=== PATIENT | male | born 1965 | race Two or more races ===

== ENCOUNTER 2020-04-07 09:40 | Outpatient (REF) | payer OTHER, SELFPAY | END 2020-04-07 09:41 | disposition home or self-care (01) | LOC: HO.HAP 09:40 | PROVIDERS: Visit Provider Internal Medicine | DX: Z46.1 Encounter for fitting and adjustment of hearing aid (principal) | CPT/HCPCS: V5266 ==

== ENCOUNTER 2020-05-15 13:10 | Outpatient (REF) | payer OTHER, SELFPAY ==
[2020-05-15 14:48] LABS: MANUAL DIFF FLAG NO
[2020-05-15 14:58] LABS: Basophils Percent Auto 0.1 % (0-2); Eosinophils Absolute Auto 0.2 X10*3/uL (0.0-0.4); Eosinophils Percent Auto 2.6 % (0-4); Hemoglobin 14.5 g/dl (14.0-18.0); Imm Gran Abs Auto 0.04 X10*3/uL (0.00-0.03); Imm Gran Pct Auto 0.5 % (0.0-0.4); Lymphocytes Absolute Auto 1.2 X10*3/uL (1.2-4.9); Lymphocytes Percent Auto 15.8 % (20-40); Mean Corpuscular HGB Conc 33.7 g/dl (31.0-36.0); Mean Corpuscular Hemoglobin 31.8 pg (27.0-33.0); Mean Corpuscular Volume 94.3 fL (80-98); Mean Platelet Volume 10.8 fL (9.4-12.4); Monocytes Absolute Auto 0.6 X10*3/uL (0.1-1.2); Monocytes Percent Auto 8.1 % (2-11); Neutrophils Absolute Auto 5.4 X10*3/uL (2.0-8.3); Neutrophils Percent Auto 72.9 % (45-73); Platelet Count 219 X10*3/uL (160-400); Red Blood Count 4.56 X10*6/uL (4.60-5.80); Red Cell Distribution Width 13.2 % (11.0-16.0); White Blood Count 7.4 X10*3/uL (4.8-10.8)
[2020-05-15 15:24] LABS: Alanine Aminotransferase 20 U/L (0-40); Albumin Level 4.3 g/dL (3.5-5.0); Alkaline Phosphatase 62 U/L (39-117); Aspartate Amino Transferase 17 U/L (5-37); Bilirubin Direct 0.2 mg/dL (0.0-0.5); Bilirubin Total 0.6 mg/dL (0.0-1.0); Total Protein 6.9 g/dL (6.5-8.0)
[2020-05-15 15:33] LABS: Valproate 47.9 mcg/mL (50.0-100.0)
== END 2020-05-15 13:11 | disposition home or self-care (01) ==
LOC: HO.LAB 13:10
PROVIDERS: PCP Internal Medicine; Visit Provider Clinical Nurse Specialist Psychiatric/Mental Health
DX: Z79.899 Other long term (current) drug therapy (principal)
CPT/HCPCS: 36415; 80076; 80164; 85025

== ENCOUNTER → 2020-05-22 11:11 | Outpatient (BNVA) | payer OTHER, SELFPAY | PROVIDERS: PCP Internal Medicine; Referring Provider Internal Medicine; Visit Provider Nurse Practitioner | DX: K21.9 Gastro-esophageal reflux disease without esophagitis (principal); K58.0 Irritable bowel syndrome with diarrhea; R19.00 Intra-abdominal and pelvic swelling, mass and lump, unspecified site | CPT/HCPCS: 99212 ==

== ENCOUNTER 2020-06-13 15:09 | Outpatient (REF) | payer OTHER, SELFPAY ==
--- NOTE | 2020-06-13 15:21 | US_ITS ---
EXAMINATION: US ABDOMEN LIMITED CLINICAL INFORMATION: Palpable abdominal wall lump. COMPARISON: Previous CT of the abdomen and pelvis 01/04/2020 TECHNIQUE: Real-time imaging of midline upper abdominal wall FINDINGS: No hernia is seen. There is a 2.2 x 1.9 x 0.8 cm solid isoechoic avascular lesion just deep to the skin. Appearance is nonspecific but would be consistent with a lipoma. No corresponding abnormality is evident on recent CT scan. US/US abdomen limited IMPRESSION: No hernia seen. Palpable abnormality corresponds to a 2.2 x 1.9 x 0.8 cm solid isoechoic soft tissue lesion probably representing a lipoma.
== END 2020-06-13 15:10 | disposition home or self-care (01) ==
LOC: HO.US 15:09
PROVIDERS: Visit Provider Nurse Practitioner
DX: R19.00 Intra-abdominal and pelvic swelling, mass and lump, unspecified site (principal)
CPT/HCPCS: 76705

== ENCOUNTER → 2020-06-27 09:46 | Outpatient (BNVA) | payer OTHER, SELFPAY | PROVIDERS: PCP Internal Medicine; Referring Provider Internal Medicine; Visit Provider Nurse Practitioner | DX: Z76.89 Persons encountering health services in other specified circumstances (principal) | CPT/HCPCS: Q3014 ==

== ENCOUNTER → 2020-07-05 09:41 | Outpatient (BNVA) | payer OTHER, SELFPAY | PROVIDERS: PCP Internal Medicine; Visit Provider Urology | DX: R33.9 Retention of urine, unspecified (principal) | CPT/HCPCS: Q3014 ==

== ENCOUNTER 2020-07-25 06:36 | Day surgery (SDC) | payer OTHER, SELFPAY ==
[2020-07-19 16:00] VITALS: BMI 33.6
--- NOTE | 2020-07-24 12:09 | P.CONAN_ITS ---
Documented by User: Karenaher Sainzney 07/24/20 12:11 HPI - Anesthesia Eval Consult details Narrative: 54yo M for Interstim Generator Change Chronic opioids s/p Interstim 2017 with TARUN KRISHNAN Past Medical History Medical History Abdominal wall bulge Abnormal loss of weight Alcohol abuse Arthritis Asthma Balanitis Chronic back pain Depression Elevated blood pressure reading in office with diagnosis of hypertension Enlarged prostate Epidermal cyst Esophageal dysphagia Esophageal spasm Gout H/O ulcer disease High cholesterol History of anxiety History of depression History of panic attacks History of peptic ulcer disease Hx of insomnia Hx of irritable bowel syndrome Hypertension Incisional pain Left flank pain Lipoma of back Low back pain Marijuana use Multiple lipomas Osteoarthritis Pain in unspecified toe(s) Painful orthopaedic hardware Short frenulum of penis Slow urinary stream Thalamic pain syndrome Trochanteric bursitis, left hip Urinary retention Family History Family History Family/Other Cancer Diabetes AIDS Brother Diabetes Myocardial infarction Father Enlarged prostate Mother Diabetes Asthma Surgical History Surgical History H/O breast surgery H/O neck surgery History of bunionectomy History of esophagogastroduodenoscopy (EGD) Hx of arthroscopy of left knee Hx of colonoscopy S/P excision of lipoma Social History Social History Are you a primary patient care coordinator to a significant other at home: No Do you presently have visiting nurse or other home services: No Alcohol intake: current Alcohol intake frequency: does not drink Smoking Status: Former smoker Cigarettes Per Day: 6 Smoking Quit Date: 2017 Use of substances other than those prescribed or required for medical reasons: Yes Substance Use Type: Marijuana Substance Use Frequency: Daily Advance Directives: No Advance Directives Information Provided: No Advance Directives on File: No Recently lost weight without trying: No Meds Allergies Allergy/AdvReac Type Severity Reaction Status Date / Time cat dander [CATS] Allergy Unknown UNKNOWN Verified 07/05/20 09:49 dog dander [DOGS] Allergy Unknown UNKNOWN Verified 07/05/20 09:49 pollen extracts [POLLEN] Allergy Unknown UNKNOWN Verified 07/05/20 09:49 tree and shrub pollen Allergy sneeze Verified 07/05/20 09:49 Home Medications Medication Instructions Recorded Confirmed Type alprazolam 1 mg tablet 1 mg PO BID PRN 05/22/20 07/19/20 History bethanechol chloride 50 mg tablet 25 mg PO TID 05/22/20 07/19/20 History cefixime 400 mg capsule 400 mg PO DAILY 05/22/20 07/19/20 History cholecalciferol (vitamin D3) 50 50 mcg PO DAILY 05/22/20 07/19/20 History mcg (2,000 unit) capsule ciprofloxacin HCl 500 mg tablet 500 mg PO BID 05/22/20 07/05/20 History divalproex 250 mg tablet,extended 250 mg PO BID 05/22/20 07/19/20 History release 24 hr divalproex 500 mg tablet,extended 500 mg PO 05/22/20 07/05/20 History release 24 hr escitalopram oxalate 10 mg tablet 10 mg PO QAM 05/22/20 07/19/20 History fluticasone propionate 220 1 puff INHALATION BID g 05/22/20 07/19/20 History mcg/actuation HFA aerosol inhaler gabapentin 300 mg capsule 600 mg PO TID 05/22/20 07/19/20 History ipratropium 20 mcg-albuterol 100 1 puff INHALATION .4 times daily g 05/22/20 07/19/20 History mcg/actuation mist for inhalation lisinopril 5 mg tablet 5 mg PO BID 05/22/20 07/05/20 History oxycodone 15 mg tablet 15 mg PO Q6H 05/22/20 07/19/20 History promethazine 12.5 mg tablet 12.5 mg PO TID 05/22/20 07/19/20 History atorvastatin 20 mg tablet 20 mg PO DAILY 07/05/20 07/19/20 History furosemide 20 mg tablet 20 mg PO DAILY 07/05/20 07/19/20 History melatonin 5 mg tablet 5 mg PO BEDTIME 07/05/20 07/19/20 History albuterol sulfate 1 vial INHALATION QID 07/19/20 07/19/20 History cholecalciferol (vitamin D3) 1 cap PO DAILY 07/19/20 07/19/20 History ipratropium-albuterol [Combivent puff INHALATION DIRECTED 07/19/20 History Respimat] methocarbamol 1 tab PO QID PRN 07/19/20 07/19/20 History multivitamin [Daily-Petra] 1 tab PO DAILY 07/19/20 07/19/20 History Exam Exam Date and Time: July 24, 2020 1209 Height,Weight and Vital Signs: Height 5 ft 4 in Weight 88.904 kg Assessment and Plan Assessment Anesthesia Assessment: Chart Reviewed Documented by User: Tosha Dalton 07/25/20 09:21 [facility] Past Medical History Medical History Abdominal wall bulge Abnormal loss of weight Alcohol abuse Arthritis Asthma Balanitis Chronic back pain Depression Elevated blood pressure reading in office with diagnosis of hypertension Enlarged prostate Epidermal cyst Esophageal dysphagia Esophageal spasm Gout H/O ulcer disease High cholesterol History of anxiety History of depression History of panic attacks History of peptic ulcer disease Hx of insomnia Hx of irritable bowel syndrome Hypertension Incisional pain Left flank pain Lipoma of back Low back pain Marijuana use Multiple lipomas Osteoarthritis Pain in unspecified toe(s) Painful orthopaedic hardware Short frenulum of penis Slow urinary stream Thalamic pain syndrome Trochanteric bursitis, left hip Urinary retention Family History Family History Family/Other Cancer Diabetes AIDS Brother Diabetes Myocardial infarction Father Enlarged prostate Mother Diabetes Asthma Surgical History Surgical History H/O breast surgery H/O neck surgery History of bunionectomy History of esophagogastroduodenoscopy (EGD) Hx of arthroscopy of left knee Hx of colonoscopy S/P excision of lipoma Social History Social History Are you a primary patient care coordinator to a significant other at home: No Do you presently have visiting nurse or other home services: No Alcohol intake: current Alcohol intake frequency: does not drink Smoking Status: Former smoker Cigarettes Per Day: 6 Smoking Quit Date: 2017 Use of substances other than those prescribed or required for medical reasons: Yes Substance Use Type: Marijuana Substance Use Frequency: Daily Advance Directives: No Advance Directives Information Provided: No Advance Directives on File: No Recently lost weight without trying: No Meds Allergies Allergy/AdvReac Type Severity Reaction Status Date / Time cat dander [CATS] Allergy Unknown UNKNOWN Verified 07/05/20 09:49 dog dander [DOGS] Allergy Unknown UNKNOWN Verified 07/05/20 09:49 pollen extracts [POLLEN] Allergy Unknown UNKNOWN Verified 07/05/20 09:49 tree and shrub pollen Allergy sneeze Verified 07/05/20 09:49 Home Medications Medication Instructions Recorded Confirmed Type alprazolam 1 mg tablet 1 mg PO BID PRN 05/22/20 07/19/20 History bethanechol chloride 50 mg tablet 25 mg PO TID 05/22/20 07/19/20 History cefixime 400 mg capsule 400 mg PO DAILY 05/22/20 07/19/20 History cholecalciferol (vitamin D3) 50 50 mcg PO DAILY 05/22/20 07/19/20 History mcg (2,000 unit) capsule ciprofloxacin HCl 500 mg tablet 500 mg PO BID 05/22/20 07/05/20 History divalproex 250 mg tablet,extended 250 mg PO BID 05/22/20 07/19/20 History release 24 hr divalproex 500 mg tablet,extended 500 mg PO 05/22/20 07/05/20 History release 24 hr escitalopram oxalate 10 mg tablet 10 mg PO QAM 05/22/20 07/19/20 History fluticasone propionate 220 1 puff INHALATION BID g 05/22/20 07/19/20 History mcg/actuation HFA aerosol inhaler gabapentin 300 mg capsule 600 mg PO TID 05/22/20 07/19/20 History ipratropium 20 mcg-albuterol 100 1 puff INHALATION .4 times daily g 05/22/20 07/19/20 History mcg/actuation mist for inhalation lisinopril 5 mg tablet 5 mg PO BID 05/22/20 07/05/20 History oxycodone 15 mg tablet 15 mg PO Q6H 05/22/20 07/19/20 History promethazine 12.5 mg tablet 12.5 mg PO TID 05/22/20 07/19/20 History atorvastatin 20 mg tablet 20 mg PO DAILY 07/05/20 07/19/20 History furosemide 20 mg tablet 20 mg PO DAILY 07/05/20 07/19/20 History melatonin 5 mg tablet 5 mg PO BEDTIME 07/05/20 07/19/20 History albuterol sulfate 1 vial INHALATION QID 07/19/20 07/19/20 History cholecalciferol (vitamin D3) 1 cap PO DAILY 07/19/20 07/19/20 History ipratropium-albuterol [Combivent puff INHALATION DIRECTED 07/19/20 History Respimat] methocarbamol 1 tab PO QID PRN 07/19/20 07/19/20 History multivitamin [Daily-Petra] 1 tab PO DAILY 07/19/20 07/19/20 History Exam Airway Mallampati Class: II TM Dist: >3cm Neck ROM: Full Assessment and Plan Assessment Anesthesia Assessment: Anesthesia Plan Discussed and Chart Reviewed Final Anesthetic Review NPO: Yes ASA Class: III Final Preanesthetic Review: No Changes in Pt Med Stat, Meds/Allgs Chart Reviewed, Consent Obtained/Reviewed and Anes Risks/Benef Reviewed Patient Risk: Intermediate Procedure Risk: Low Assessment/Block/Sedation in SS: Assess/Block/Sedation-SS Anesthetic Plan Anesthetic Plan: MAC: Disposition: Standard PACU
[2020-07-25 08:12] VITALS: BP 113/48; PULSE 56; RESP 16; TEMP 36.8; O2SAT 95
[2020-07-25] MEDS: Lactated Ringers 1,000 ML 100 ML IVCONT (08:26)
[2020-07-25] MEDS: Albuterol Sulfate (0.083%) 2.5 MG/3 ML VIAL.NEB INHALE (08:29)
--- NOTE | 2020-07-25 08:30 | PC.NURSE ---
receibing resp treatment in isolation room.
--- NOTE | 2020-07-25 09:15 | MHC.SHP ---
Pre-Procedural Eval Section A The patient is an INPATIENT: No The History & Physical has been completed within 30 days and I have reviewed it.: Yes Section B Chief Complaint: urine retention Allergies: Allergies Allergy/AdvReac Type Severity Reaction Status Date / Time cat dander [CATS] Allergy Unknown UNKNOWN Verified 07/05/20 09:49 dog dander [DOGS] Allergy Unknown UNKNOWN Verified 07/05/20 09:49 pollen extracts [POLLEN] Allergy Unknown UNKNOWN Verified 07/05/20 09:49 tree and shrub pollen Allergy sneeze Verified 07/05/20 09:49 Plan Diagnosis/Plan: Unchanged I have reviewed the history and physical and performed a pertinent physical examination on my patient. No changes have occurred unless specified.
--- NOTE | 2020-07-25 10:10 | PM.OP ---
Brief Operative Note Date of Service: 07/25/20 Pre-op diagnosis: ipg end of life, urinary retention Post-op diagnosis: same Procedure: removal and replacement ipg Implants: iPG Surgeon: Blayne Granados III, MD Anesthesia: MAC and local Estimated blood loss (mL): 0 Pathology: none sent Condition: stable Disposition: same day
[2020-07-25 10:14] VITALS: BP 108/60; PULSE 69; RESP 16; TEMP 37.3; O2SAT 95
[2020-07-25 10:29] VITALS: BP 110/66; PULSE 62; RESP 17; O2SAT 94
[2020-07-25] MEDS: Acetaminophen 325 MG TABLET 650 MG PO (10:39)
[2020-07-25] MEDS: oxyCODONE HCl Immed Release 5 MG TABLET PO (10:41)
[2020-07-25 10:44] VITALS: BP 109/62; PULSE 74; RESP 17; O2SAT 95
--- NOTE | 2020-07-25 11:11 | HO.POSTANES ---
Post Anesthesia Evaluation Post Anesthesia Evaluation Vital Signs: Vital Signs Temp Pulse Resp BP Pulse Ox 07/25/20 10:44 99.2 F 74 17 109/62 95 07/25/20 10:29 62 17 110/66 94 07/25/20 10:14 99.2 F 69 16 108/60 95 07/25/20 08:12 98.3 F 56 16 113/48 L 95 Anesthesia: Monitored Mental Status: Awake Pain Control: Satisfactory Nausea/Vomiting: None Hydration: Adequate Anesthesia-Related Issues: No Anes. Related Issues
--- NOTE | 2020-11-02 18:15 | OP_ITS ---
SURGEON: Blayne Granados III, MD PREOPERATIVE DIAGNOSIS: Urinary retention, end of life implantable pulse generator. POSTOPERATIVE DIAGNOSIS: Urinary retention, end of life implantable pulse generator. PROCEDURE PERFORMED: Removal and replacement of IPG. ESTIMATED BLOOD LOSS: None. COMPLICATIONS: None. ANESTHESIA: MAC local. ASSISTANTS: SPECIMENS: SPECIMEN: None. DRAINS: None. DESCRIPTION OF PROCEDURE: As follows: The patient was taken to the operating room. After adequate anesthesia was obtained, a time-out done demonstrating correct patient, correct procedure. Following this, the patient had his right buttock incision identified and opened with a scalpel. Electrocautery was then used to expose the IPG. IPG was delivered through the wound and removed from the lead and the wound irrigated out with antibiotic-containing solution. Once this was done, the patient has a new IPG attached to the lead and it was replaced with the logo facing towards the skin. It was able to slide into the old pocket. The patient had testing done by the [employer] personal financial representative. Everything was found to be 100% functional. Two-layered closure was done. He tolerated the procedure well without complications. Blayne Granados III, MD SS/MODL / [id number]
== END 2020-07-25 11:30 | disposition home or self-care (01) ==
PROVIDERS: PCP Internal Medicine; Visit Provider Urology
PROC: (CPT 63685; principal; 2020-07-25 09:40)
DX: I10 Essential (primary) hypertension (principal); Z79.899 Other long term (current) drug therapy; J45.909 Unspecified asthma, uncomplicated; F12.90 Cannabis use, unspecified, uncomplicated
CPT/HCPCS: 64595; C1767; C1787; J2250; J2405; J3010

== ENCOUNTER → 2020-12-11 12:52 | Outpatient (BNVA) | payer OTHER, SELFPAY | PROVIDERS: PCP Internal Medicine; Referring Provider Internal Medicine; Visit Provider Surgery | DX: D17.9 Benign lipomatous neoplasm, unspecified (principal) | CPT/HCPCS: 99212 ==

== ENCOUNTER 2021-01-03 10:00 | Outpatient (REF) | payer OTHER, SELFPAY ==
[2021-01-03 11:17] LABS: MANUAL DIFF FLAG NO
[2021-01-03 11:43] LABS: Basophils Percent Auto 0.2 % (0-2); Eosinophils Absolute Auto 0.4 X10*3/uL (0.0-0.4); Eosinophils Percent Auto 5.9 % (0-4); Hematocrit 40.3 % (42-52); Hemoglobin 13.2 g/dl (14.0-18.0); Imm Gran Abs Auto 0.02 X10*3/uL (0.00-0.03); Imm Gran Pct Auto 0.3 % (0.0-0.4); Lymphocytes Absolute Auto 1.3 X10*3/uL (1.2-4.9); Lymphocytes Percent Auto 21.3 % (20-40); Mean Corpuscular HGB Conc 32.8 g/dl (31.0-36.0); Mean Corpuscular Hemoglobin 31.3 pg (27.0-33.0); Mean Corpuscular Volume 95.5 fL (80-98); Mean Platelet Volume 10.7 fL (9.4-12.4); Monocytes Absolute Auto 0.6 X10*3/uL (0.1-1.2); Monocytes Percent Auto 9.7 % (2-11); Neutrophils Absolute Auto 3.7 X10*3/uL (2.0-8.3); Neutrophils Percent Auto 62.6 % (45-73); Platelet Count 225 X10*3/uL (160-400); Red Blood Count 4.22 X10*6/uL (4.60-5.80); Red Cell Distribution Width 13.7 % (11.0-16.0)
[2021-01-03 11:53] LABS: Valproate 72.9 mcg/mL (50.0-100.0)
[2021-01-03 12:13] LABS: Alanine Aminotransferase 20 U/L (0-40); Albumin Level 4.1 g/dL (3.5-5.0); Alkaline Phosphatase 69 U/L (39-117); Aspartate Amino Transferase 17 U/L (5-37); Bilirubin Direct 0.2 mg/dL (0.0-0.5); Bilirubin Total 0.4 mg/dL (0.0-1.0); Total Protein 6.5 g/dL (6.5-8.0)
== END 2021-01-03 10:01 | disposition home or self-care (01) ==
LOC: HO.LAB 10:00
PROVIDERS: PCP Internal Medicine; Visit Provider Clinical Nurse Specialist Psychiatric/Mental Health
DX: F31.81 Bipolar II disorder (principal); Z79.899 Other long term (current) drug therapy
CPT/HCPCS: 36415; 80076; 80164; 85025

== ENCOUNTER 2021-01-05 12:46 | Outpatient (REF) | payer OTHER, SELFPAY ==
[2021-01-05 12:46] VITALS: BP 136/85; PULSE 70; RESP 19; TEMP 36.8; O2SAT 96; BMI 33.3
--- NOTE | 2021-01-05 13:17 | W.PM.OPN ---
Operative Note Operative Note Date of Service: 01/05/21 Narrative: Preop diagnosis: Lipoma on the abdominal wall and on the back Postop diagnosis: As above Procedure: Excision of lipomas, abdominal wall and back under local anesthesia Surgeon: Derrick Barlow MD The patient is a 55-year-old male who wanted lipomas removed. He now points to a lipoma on the abdominal wall measuring about 1.5 cm and another on the back towards the left flank, about 1 cm in size. He wanted both of these removed. He understood the technique of excision under local anesthesia and he was aware of the risks, benefits, and alternatives. He was brought to the minor procedure room. A surgical time-out was done. He was placed in supine position. The area of the lipoma on the abdominal wall was prepped and draped. Lidocaine 1% was used for local anesthesia. I made an incision on the skin overlying this lipoma and the incision was carried down through the full-thickness of the skin down to the subcutaneous layer until a lipoma was visualized. I sharply dissected the lipoma off the rest of the subcutaneous layer using Metzenbaum scissors until this was delivered and sent as a specimen. This wasabout a 1.5 cm diameter round lipoma. I closed the incision with full-thickness nylon 3-0 interrupted sutures. Dressings were applied. The patient was then placed in prone position. The area of the lipoma on the back was prepped and draped. Lidocaine 1% was used for local anesthesia. I made an incision on the skin overlying this lipoma using a blade 15. And this carried down through the full-thickness of skin and subcutaneous fat until I lipomatous mass was visualized. I sharply dissected the lipoma off of the rest of the subcutaneous layer using Metzenbaum scissors until this was delivered and sent as specimen. This was about 1 cm in diameter. I closed the incision with full-thickness nylon 3-0 interrupted sutures. Dressings were applied . The patient tolerated the procedure well. There were no complications noted. He was given wound care instructions.
--- NOTE | 2021-01-05 13:22 | PM.OP ---
Brief Operative Note Date of Service: 01/05/21 Pre-op diagnosis: Lipoma, abdominal wall and back Post-op diagnosis: same Surgeon: Derrick Barlow MD Anesthesia: local Was an Computer Compositor used for this Procedure?: No Estimated blood loss (mL): 2 Pathology: other ( lipomas) Condition: stable Disposition: other ( home)
== END 2021-01-05 12:47 | disposition home or self-care (01) ==
LOC: HO.MS 12:46
PROVIDERS: PCP Internal Medicine; Visit Provider Surgery
PROC: (CPT 22902; principal; 2021-01-05 13:00)
DX: D17.39 Benign lipomatous neoplasm of skin and subcutaneous tissue of other sites (principal); D17.1 Benign lipomatous neoplasm of skin and subcutaneous tissue of trunk; J45.909 Unspecified asthma, uncomplicated; I10 Essential (primary) hypertension; G89.29 Other chronic pain; M54.5 Low back pain; F12.90 Cannabis use, unspecified, uncomplicated; Z79.899 Other long term (current) drug therapy
CPT/HCPCS: 22902; 21930; 88304

== ENCOUNTER → 2021-01-10 14:50 | Outpatient (BNVA) | payer OTHER, SELFPAY | PROVIDERS: PCP Internal Medicine; Referring Provider Internal Medicine; Visit Provider Surgery ==

== ENCOUNTER → 2021-01-17 13:40 | Outpatient (BNVA) | payer OTHER, SELFPAY | PROVIDERS: PCP Internal Medicine; Referring Provider Internal Medicine; Visit Provider Surgery | DX: Z48.3 Aftercare following surgery for neoplasm (principal); Z86.018 Personal history of other benign neoplasm | CPT/HCPCS: 99212 ==

== ENCOUNTER 2021-05-01 10:07 | Outpatient (REF) | payer OTHER, SELFPAY ==
[2021-05-01 10:22] LABS: MANUAL DIFF FLAG NO
[2021-05-01 10:46] LABS: Basophils Percent Auto 0.1 % (0-2); Eosinophils Absolute Auto 0.3 X10*3/uL (0.0-0.4); Eosinophils Percent Auto 3.9 % (0-4); Hematocrit 40.9 % (42-52); Hemoglobin 13.3 g/dl (14.0-18.0); Imm Gran Abs Auto 0.03 X10*3/uL (0.00-0.03); Imm Gran Pct Auto 0.4 % (0.0-0.4); Lymphocytes Absolute Auto 0.8 X10*3/uL (1.2-4.9); Lymphocytes Percent Auto 11.4 % (20-40); Mean Corpuscular HGB Conc 32.5 g/dl (31.0-36.0); Mean Corpuscular Volume 95.3 fL (80-98); Mean Platelet Volume 10.8 fL (9.4-12.4); Monocytes Absolute Auto 0.5 X10*3/uL (0.1-1.2); Monocytes Percent Auto 6.5 % (2-11); Neutrophils Absolute Auto 5.7 X10*3/uL (2.0-8.3); Neutrophils Percent Auto 77.7 % (45-73); Platelet Count 201 X10*3/uL (160-400); Red Blood Count 4.29 X10*6/uL (4.60-5.80); Red Cell Distribution Width 13.7 % (11.0-16.0); White Blood Count 7.4 X10*3/uL (4.8-10.8)
[2021-05-01 11:00] LABS: Estimated Average Glucose 103 mg/dL; Hemoglobin A1c % 5.2 %
[2021-05-01 11:12] LABS: B Type Natriuretic Peptide 45 pg/mL (<100)
[2021-05-01 11:21] LABS: Alanine Aminotransferase 47 U/L (0-40); Albumin Level 4.1 g/dL (3.5-5.0); Alkaline Phosphatase 81 U/L (39-117); Anion Gap 11 (12-20); Aspartate Amino Transferase 117 U/L (5-37); Bilirubin Direct 0.2 mg/dL (0.0-0.5); Bilirubin Total 0.4 mg/dL (0.0-1.0); Blood Urea Nitrogen 11 mg/dL (9-16); Calcium 9.2 mg/dL (8.4-10.2); Carbon Dioxide 32 mmol/L (22-29); Chloride 102 mmol/L (96-108); Cholesterol 151 mg/dL; Estimated Glomerular Filt Rate > 60; Glucose Random 126 mg/dL (60-115); HDL Cholesterol 29 mg/dL; LDL Cholesterol Calculated 97 mg/dl; Potassium 4.7 mmol/L (3.3-5.1); Sodium 140 mmol/L (135-145); Total Protein 6.7 g/dL (6.5-8.0); Triglycerides 127 mg/dL; Uric Acid 6.9 mg/dL (3.4-7.0)
[2021-05-01 11:30] LABS: TSH reflex Free T4 1.26 uIU/mL (0.32-4.0); Vitamin D 25-OH Total 37.3 ng/mL (>30)
[2021-05-01 11:57] LABS: Folate > 20.0 ng/mL (> or = 4.0); Vitamin B12 502 pg/mL (200-900)
[2021-05-01 12:16] LABS: Creatinine Urine 18.17 mg/dL; Microalbumin Urine < 5.0 mg/L
== END 2021-05-01 10:08 | disposition home or self-care (01) ==
LOC: HO.LAB 10:07
PROVIDERS: PCP Internal Medicine; Visit Provider Internal Medicine
DX: E78.5 Hyperlipidemia, unspecified (principal); M79.89 Other specified soft tissue disorders
CPT/HCPCS: 36415; 80053; 80061; 82043; 82248; 82306; 82607; 82746; 83036; 83880; 84443; 84550; 85025

== ENCOUNTER 2021-06-05 08:51 | Outpatient (REF) | payer OTHER, SELFPAY ==
--- NOTE | 2021-06-05 14:08 | MHC.AU.AHA ---
Adult Audiological Evaluation Date of Visit: 06/05/21 Reason for Appointment: Audiological re-evaluation due to concern for decreased hearing. Mr. Lazcano has a known bilateral hearing loss and uses hearing aids binaurally. He notes that he lost his hearing aids while removing his face mask and hasn't been able to find them. He obtained the previous hearing aids over five years ago, so he is due for updated amplification. He feels his hearing is gradually decreasing, and worse in the left ear. He notes that he has been struggling to hear and follow conversations since he lost his hearing aids. He notes that he doesn't hear when people are at the door and missing phone calls. He denies any changes to his medical history since his last visit. Previous Hearing Test Results: [facility], 02/25/2020 - Mild to severe SNHL in the right ear. Moderate to severe SNHL in the left ear. 10-25 dBHL decrease compared to 2016. [facility], 04/25/2016 - Mild to moderately-severe SNHL bilaterally. Medical History: Medical History: High Blood Pressure, Tobacco Use Medical History: Asthma, Hemangioma of the liver, bilateral renal cysts, chronic low back pain, depression, cervical spondylosis without myelopathy, pancolitis Allergies: Cat and dog dander, pollen Medication List: See list Hearing Instrument History- Right Ear: Flavor Tank Tender: [employer] Model: One Loyalty Network0-M [employer] Serial Number: [id number] Battery Size: 312 Repair Warranty: 07/31/2018 Loss and Damage Warranty: 07/31/2018 Dispensed By: [facility] Date of Fittin05/09/2016 Hearing Instrument History- Left Ear: Flavor Tank Tender: navigaya - [employer] Model: One Loyalty Network0-M Global Quorum Serial Number: [id number] Battery Size: 312 Repair Warranty: 07/31/2018 Loss and Damage Warranty: 07/31/2018 Dispensed By: [facility] Date of Fittin05/09/2016 Otoscopy: Right Ear: Unremarkable Left Ear: Unremarkable Hearing Evaluation: Transducer(s) Used: Insert Earphones, Bone Conduction Method: Conventional Audiometry Stimuli Used: Pure Tones Right Ear: Description of Hearing: Mild sensorineural hearing loss (SNHL) from 250-1000 Hz, sloping to a moderate SNHL from 7553-1466 Hz, a moderately-severe SNHL at 3000 Hz, rising to a moderate SNHL at 4000 Hz, and a mild hearing loss from 1804-0707 Hz. Left Ear: Description of Hearing: Mild sensorineural hearing loss (SNHL) from 250-500 Hz, sloping to a moderate SNHL from 8531-8296 Hz, a moderately-severe SNHL from 4795-7935 Hz, rising to a moderate hearing loss at 6000 Hz, and a mild hearing loss at 8000 Hz. Speech Recognition Threshold (SRT): Method Used: Monitored Live Voice Stimuli Used: Spondee Words Right Ear: 40 dBHL Left Ear: 40 dBHL Word Discrimination: Method: Recorded Lists Word Lists Used: NU-6 Right Ear: 84% at 80 dBHL Left Ear: 96% at 80 dBHL Comparison: Compared to most recent evaluation: Significant 10-25 dBHL improvement in hearing bilaterally compared to audiogram from 2020. Compared to the audiogram from 2016, 10-15 dBHL decrease from 1964-5665 Hz, with all other other thresholds remaining stable. Recommendations: Audiological re-evaluation in one year. Medical clearance from a physician is required before fitting. Hearing aid(s) will be ordered after approval is received. New hearing aids are recommended, given that his previous have been lost and were over five years old. Discussed hearing aid options. He is interested in a rechargeable ITE style hearing aid. Diagnosis: Primary Diagnosis: H90.3 Bilateral Sensorineural Hearing Loss Services Performed: Comprehensive Audiological Evaluation (CPT 35747) Signature: Provider: María Deluna, [facility]
--- NOTE | 2021-06-05 14:10 | MHC.AU.HAS ---
Hearing Aid Evaluation Date of Visit: 06/05/21 Historical Information: Description of Hearing: Mild to moderately-severe SNHL bilaterally. Current personal amplification information, if applicable: 2015 [place] V50-M BTE - LOST Summary: Mr. Lazcano is interested in pursuing new hearing aids, as he lost his previous aids while removing his mask. His previous aids are over five years old, making him eligible for updated amplification. Mr. Lazcano was not happy with the BTE style hearing aid, and would like to try a ITE style hearing aid. He is interested in rechargeability and streaming to his iPhone. Hearing Aid Prescription: Based on the individual?s shared listening needs, communication environments, dexterity, desire for connectivity, and personal preferences, the following prescription for amplification has been made: Right ear: Speaker Mounter: [employer] Discovery Model: Evolv AI 1600 ITC-R Battery Size: Rechargeable Color: Light Brown Left ear: Left ear prescription to be same as Right Hearing Aid above: Speaker Mounter: [employer] Discovery Model: Evolv AI 1600 ITC-R Battery Size: Rechargeable Color: Light Brown Plan of Care: Earmold Impressions Taken. Medical Clearance to be requested from PCP/ENT. Hearing Instrument Fitting to be scheduled when materials arrive. Hearing aids will be ordered once MD clearance is received. Primary Diagnosis: H90.3 Bilateral Sensorineural Hearing Loss Signature: Provider: María Deluna, [facility]
--- NOTE | 2021-06-05 14:11 | MHC.AU.MED ---
Medical Clearance for Hearing Instrumentation Date: 06/05/21 Patient Name: Zain Lazcano Date of : 1965 Referring Provider: Pati Land MD We have seen your patient on 06/05/21 and have determined that they are a candidate for amplification (See accompanying report). Specifically, they would benefit from: Hearing aid use in both ears There is a statute that addresses Medical Evaluation Requirements prior to fitting a patient with a hearing aid. According to [place] statute 265 CMR:6.03(1), (a) General. Except as provided in 265 CMR 6.03(1)(b), a certified ophthalmic technician shall not sell a hearing aid unless the prospective user has presented to the certified ophthalmic technician a written statement signed by a licensed physician that states that the patient's hearing loss has been medically evaluated and the patient may be considered a candidate for a hearing aid. The medical evaluation must have taken place within the preceding six months. Please note: Due to the [place] Statute referenced above, we cannot accept a signature other than that of a licensed physician. BOWLING PIN SETTERS INSTALLER and PA signatures cannot be accepted. I am in agreement with the above recommendation. There is no medical contraindication for hearing instrumentation. Physician Signature Date Physician Name (Printed)
== END 2021-06-05 08:52 | disposition home or self-care (01) ==
LOC: HO.SH 08:51
PROVIDERS: Visit Provider Internal Medicine
DX: Z46.1 Encounter for fitting and adjustment of hearing aid (principal); H90.3 Sensorineural hearing loss, bilateral
CPT/HCPCS: 92557; 92591; V5275

== ENCOUNTER 2021-06-26 07:09 | Outpatient (REF) | payer OTHER, SELFPAY ==
--- NOTE | ~2021-06-26 | XR_ITS ---
EXAMINATION: XR CHEST CLINICAL INFORMATION: Dyspnea COMPARISON: Previous chest CT January 2014 TECHNIQUE: 2 views of the chest were obtained. FINDINGS: The cardiac and mediastinal contours are stable. The lungs do not appear hyperinflated. There may be mild central bronchial wall thickening. No evidence of a lobar pneumonia is seen. There is no pleural effusion or pneumothorax. There are degenerative changes of the cervical spine. XR/XR chest 2V IMPRESSION: Question mild central bronchial wall thickening. No evidence of pneumonia.
== END 2021-06-26 07:10 | disposition home or self-care (01) ==
LOC: HO.XRAY 07:09
PROVIDERS: PCP Internal Medicine; Referring Provider Internal Medicine; Visit Provider Nurse Practitioner
DX: R06.00 Dyspnea, unspecified (principal); K21.9 Gastro-esophageal reflux disease without esophagitis; K58.0 Irritable bowel syndrome with diarrhea; G43.909 Migraine, unspecified, not intractable, without status migrainosus
CPT/HCPCS: 71046; 99212

== ENCOUNTER 2021-07-04 12:57 | Outpatient (REF) | payer OTHER, SELFPAY ==
--- NOTE | 2021-07-04 13:37 | MHC.AU.HFA ---
Hearing Instrument Fitting- Adult- Binaural Date of Visit: 07/04/21 Hearing Instruments Dispensed: Right Ear: Roadmaster: [employer] Model: Evolv AI 1600 ITC-R Serial Number: [id number] Repair Warranty: 07/20/2024 Loss and Damage Warranty: 07/20/2024 Service Plan: 07/04/2022 Battery Size: Rechargeable Color: Light Brown Type of Wax Guard: HearClear Left Ear: Roadmaster: [employer] Model: Evolv AI 1600 ITC-R Serial Number: [id number] Repair Warranty: 07/20/2024 Loss and Damage Warranty: 07/20/2024 Service Plan: 07/04/2022 Battery Size: Rechargeable Color: Light Brown Type of Wax Guard: HearClear Summary of Fitting: Feedback canceler run. Verifit performed and levels adjusted to better reach targets. Patient was pleased with the hearing aids and did not feel any additional changes were needed. He reports they are physically comfortable and sound better than his previous instruments. Hearing aid care and maintenance were discussed and practiced. Hearing aids were paired to his phone. Patient was unable to download the Swoop misael, as he could not remember his StreamStar password. His family will help him download it at home. Recommendations: Recommendations: Patient is an experienced hearing aid user. He will call for follow-up if needed. Diagnosis Code(s): Primary Diagnosis: H90.3 Bilateral Sensorineural Hearing Loss Signature: Provider: María Betts, [facility]
== END 2021-07-04 12:58 | disposition home or self-care (01) ==
LOC: HO.HAP 12:57
PROVIDERS: Visit Provider Internal Medicine
DX: Z46.1 Encounter for fitting and adjustment of hearing aid (principal); H90.3 Sensorineural hearing loss, bilateral
CPT/HCPCS: V5011; V5020; V5160; V5260

== ENCOUNTER → 2021-08-02 09:32 | Outpatient (BNVA) | payer OTHER, SELFPAY | PROVIDERS: PCP Internal Medicine; Referring Provider Internal Medicine; Visit Provider Nurse Practitioner | DX: K58.0 Irritable bowel syndrome with diarrhea (principal); K21.9 Gastro-esophageal reflux disease without esophagitis; R33.9 Retention of urine, unspecified; G43.909 Migraine, unspecified, not intractable, without status migrainosus | CPT/HCPCS: 99202 ==

== ENCOUNTER → 2021-08-29 11:42 | Outpatient (BNVA) | payer OTHER, SELFPAY | PROVIDERS: PCP Internal Medicine; Visit Provider Urology | DX: R10.31 Right lower quadrant pain (principal); R10.32 Left lower quadrant pain; R33.9 Retention of urine, unspecified | CPT/HCPCS: 51798; 99212 ==

== ENCOUNTER 2021-09-20 13:03 | Outpatient (RCR) | payer OTHER, SELFPAY ==
--- NOTE | 2021-09-20 14:30 | MHC.PT.EP ---
[facility] [place] [facility] [place] [facility] [place] [facility] [address] Sorin Watkins [address] [phone] F: [phone] F: [phone] F: [phone] F: [phone] Physical Therapy Plan of Care Date of Evaluation: 09/20/21 Date of Surgery: Diagnosis: right lower quadrant pain, left lower quadrant pain Assessment: Zain arrived reporting a complicated Urologic History. He was a poor historian of his medical history, but was good at explaining his current symptoms. He reports he is unable to urinate. He has increased urinary urgency and frequency. He reports he was unable to make a voluntary contraction despite cueing for a pelvic floor contraction. I attempted several cues. He reports a poor urinary schedule. His medical history suggests nerve damage to this region. He shared, I slam my penis in the door because I get so frustrated. He reports no sensation in his penis. He does not pay attention to bladder irritants, and therefore I will start with pt education. I gave him urge suppression techniques, bladder retraining techniques, and a list of common bladder irritants. I recommended putting himself on a schedule for prompted voiding every 1.5 hours. I asked him to write a bladder and food log for 3 days. Frequency and Duration: The patient will be seen 1x/week x 4 weeks Short Term Goals: 1. Pt to fill out bladder log to assess his current lifestyle and establish his current schedule 2. Pt to be able to verbalize understanding of urge suppression techniques. 3. pt to be able to verbalize understanding of bladder retraining techniques. Tarper Goals: Pt to be able to reduce just in case peeing by 50% pt be be able to hold BM for 1 minute to show improved NMR control of rectal PFM. Pt be independent with his HEP. Treatment Plan: Modalities to reduce pain, spasms and effusion. Manual therapy to restore motion and function. Therapeutic exercise to improve strength and flexibility. Neuromuscular re-education for posture and balance. Therapeutic activities to return to functional activities of daily living. Electronically signed by: Brooke Savage PT DPT Please sign and return to therapist. Thank you for your referral.
== END 2021-12-21 07:58 | disposition home or self-care (01) ==
LOC: HO.PT 13:03
PROVIDERS: PCP Internal Medicine; Visit Provider Urology
DX: R10.31 Right lower quadrant pain (principal); R10.32 Left lower quadrant pain
CPT/HCPCS: 97112; 97163; 97530

== ENCOUNTER 2021-10-03 16:26 | Inpatient (IN) | payer OTHER, SELFPAY ==
[2021-10-03] VITALS (14 sets, daily range): BP systolic 97–155; BP diastolic 48–73; PULSE 53–164; RESP 11–24; TEMP 36.4; O2SAT 93–100; BMI 27.1
--- NOTE | 2021-10-03 | ECG_ITS ---
Test Reason : FATIGUE Blood Pressure : / mmHG Vent. Rate : 073 BPM Atrial Rate : 073 BPM P-R Int : 162 ms QRS Dur : 080 ms QT Int : 366 ms P-R-T Axes : 039 -15 024 degrees QTc Int : 403 ms Normal sinus rhythm Normal ECG When compared with ECG of 03-JAN-2018 12:26, No significant change was found Referred By: Generic ED Physician Electronically Signed By:MAXIMO RIOS
--- NOTE | ~2021-10-03 | CT_ITS ---
EXAMINATION: CT HEAD WITHOUT CONTRAST CT CERVICAL SPINE WITHOUT CONTRAST CLINICAL INFORMATION: Fall and loss of consciousness. COMPARISON: None. TECHNIQUE: Multidetector CT imaging of the head and cervical spine was performed without the use of intravenous contrast. Multiplanar reformats are reviewed. This CT examination was performed using dose optimization techniques as appropriate, variously including the following: *Automated exposure control *Adjustment of mA and/or kV according to patient size (this includes techniques or standardized protocols for targeted exams where dose is matched to indication/reason for exam; i.e. extremities or head) *Use of iterative reconstruction technique DLP: 1339 mGy-cm. FINDINGS: There is no evidence of acute intracranial hemorrhage or territorial infarction. No abnormal mass effect or midline shift is seen. Cheng to white matter differentiation is well preserved. No extra-axial fluid collections are identified. The ventricles are normal in size. There is no abnormal attenuation within the brain parenchyma. The osseous structures and soft tissues are normal. The mastoid air cells and visualized portions of the paranasal sinuses are well-aerated. Atlantooccipital alignment is maintained. The vertebral bodies and posterior elements align normally. Intact interbody fusion hardware at C5-C6. No acute fracture or subluxation. Vertebral body heights are maintained. Small endplate osteophytes present at C4-C5 and C7. The paraspinal soft tissues are unremarkable. The imaged lung apices are clear CT/CT cervical spine wo con IMPRESSION: No acute intracranial pathology. No cervical spine fracture or malalignment.
--- NOTE | ~2021-10-03 | US_ITS ---
EXAMINATION: US SCROTUM CLINICAL INFORMATION: Testicular pain. COMPARISON: 09/10/2017. TECHNIQUE: A sonogram of the scrotum was performed assessing gardner-scale appearance and color Doppler flow. Spectral Doppler analysis of the arterial and venous flow were performed in the testes bilaterally. FINDINGS: RIGHT: Right testicle measures 3.3 x 2.1 x 2.5 cm, volume 9.2 mL. No focal testicular parenchymal lesions are visualized. Spectral Doppler analysis of the arterial and venous flow is normal in the right testis. Right epididymal head is normal in size No right varicocele is seen. Right epididymal Doppler flow is normal. There is some questionable enlargement and heterogeneity of the right epididymal body, although [id number] images were not obtained, and evaluation is somewhat limited. Small hydrocele. LEFT: Left testicle measures 3.5 x 2.3 x 2.2 cm, volume 9.4 mL. There is redemonstration of an intratesticular cyst measuring 0.6 x 0.6 x 0.6 cm, previously 0.5 x 0.5 x 0.5 cm in 2018. Spectral Doppler analysis of the arterial and venous flow is normal in the left testis. Left epididymal head is normal in size. No left varicocele is seen. Left epididymal Doppler flow is normal. Moderate hydrocele. US/US scrotum doppler IMPRESSION: Questionable enlargement and heterogeneity of the right epididymal body raising the possibility of epididymitis in the appropriate clinical context. Recommend a short-term follow-up study after treatment to ensure resolution. Left greater than right hydroceles. A 0.6 cm simple appearing intraparenchymal cyst in the left testis is unchanged since 2018.
--- NOTE | ~2021-10-03 | CT_ITS ---
EXAMINATION: CT HEAD WITHOUT CONTRAST CT CERVICAL SPINE WITHOUT CONTRAST CLINICAL INFORMATION: Fall and loss of consciousness. COMPARISON: None. TECHNIQUE: Multidetector CT imaging of the head and cervical spine was performed without the use of intravenous contrast. Multiplanar reformats are reviewed. This CT examination was performed using dose optimization techniques as appropriate, variously including the following: *Automated exposure control *Adjustment of mA and/or kV according to patient size (this includes techniques or standardized protocols for targeted exams where dose is matched to indication/reason for exam; i.e. extremities or head) *Use of iterative reconstruction technique DLP: 1339 mGy-cm. FINDINGS: There is no evidence of acute intracranial hemorrhage or territorial infarction. No abnormal mass effect or midline shift is seen. Cheng to white matter differentiation is well preserved. No extra-axial fluid collections are identified. The ventricles are normal in size. There is no abnormal attenuation within the brain parenchyma. The osseous structures and soft tissues are normal. The mastoid air cells and visualized portions of the paranasal sinuses are well-aerated. Atlantooccipital alignment is maintained. The vertebral bodies and posterior elements align normally. Intact interbody fusion hardware at C5-C6. No acute fracture or subluxation. Vertebral body heights are maintained. Small endplate osteophytes present at C4-C5 and C7. The paraspinal soft tissues are unremarkable. The imaged lung apices are clear CT/CT head/brain wo con IMPRESSION: No acute intracranial pathology. No cervical spine fracture or malalignment.
--- NOTE | ~2021-10-03 | CT_ITS ---
EXAMINATION: CT CHEST, ABDOMEN PELVIS WITH CONTRAST. CLINICAL INFORMATION: Left lower quadrant pain. SOB. COMPARISON: CT abdomen and pelvis 01/04/2020 TECHNIQUE: 5 mm thin axial and reformatted 3 minutes thin sagittal coronal images of chest, abdomen pelvis were obtained following 85 mL Omnipaque 350. DLP 823. FINDINGS: Chest: LUNGS: The lungs are well-expanded and clear acute pneumonic process. There is atelectasis/chronic scarring in the dependent segments of both posterior posterior and superior segments. No focal consolidation seen. There is no pulmonary nodule or mass. Pleura: There is no pleural effusion, calcification or thickening. Mediastinum: The thyroid lobes are symmetrical and normal. Central trachea and the bronchi widely patent. There are small shotty precarinal lymph node. No pericardial effusion seen. Heart size is normal. Axilla: The chest wall is unremarkable as well. Osseous structures: No lytic or sclerotic process seen. There is mild ventral spondylosis mid and lower dorsal spine. ABDOMEN AND PELVIS: Liver, gallbladder and biliary tracts. The liver is normal size, shape and density. The punctate hypodensity segment 8 adjacent to gallbladder on axial image 18/13 probable small cyst a triangular shaped hypodensity seen in the posterior segment right hepatic lobe segment 7 with some peripheral trace enhancement question hemangioma. No intrahepatic ductal dilatation seen. There are no radiopaque gallstones or wall thickening. Spleen: Unremarkable. Pancreas: Unremarkable. Adrenal glands: There is right adrenal 1.3 cm hypodense nonenhancing lesion measuring 42 Hounsfield units. The left adrenal glands unremarkable. Kidneys and ureters: Both kidneys are normal size, shape and position. There are bilateral renal cysts. The largest cyst is exophytic lower pole measuring 4.8 x 5.0 x 5.0 cm on coronal image 50/15 and axial image 42/13. Lymphovascular structures: The abdominal aorta is of normal caliber except for mild articular calcification. There are small shotty aortic caval and para-aortic lymph nodes measuring less than 5 mm. GI tract: There is scattered stool, diverticuli and gas seen throughout the colon. There is nonspecific submucosal fatty deposition. No pericolic fat stranding seen the ileocecal junction is normal. The appendix is normal caliber. Abdominal wall: Unremarkable. Pelvis: There there is a right parasacral electrode stimulator in place. No free air or free fluid seen. There is no abnormal pelvic lymph nodes. Prominent inguinal canal containing fat and vessels are noted. Osseous structures: No aggressive lytic or sclerotic process seen. CT/CT abdomen pelvis w con IMPRESSION: No acute intra-abdominal process seen. Punctate hypodensity right hepatic lobe and a triangular shaped hypodense lesion with peripheral hyperdensity or enhancement likely hemangioma. Bilateral renal cysts but no radiopaque renal calculi or hydronephrosis. Mild constipation with scattered colonic diverticulosis. Bilateral dependent atelectasis or scarring in both lower lobes posterior and superior segments. No acute pneumonic consolidation.
[2021-10-03 17:01] LABS: MANUAL DIFF FLAG NO
[2021-10-03 17:04] LABS: Basophils Percent Auto 0.2 % (0-2); Eosinophils Absolute Auto 0.3 X10*3/uL (0.0-0.4); Eosinophils Percent Auto 4.4 % (0-4); Hemoglobin 12.8 g/dl (14.0-18.0); Imm Gran Abs Auto 0.01 X10*3/uL (0.00-0.03); Imm Gran Pct Auto 0.2 % (0.0-0.4); Lymphocytes Absolute Auto 1.2 X10*3/uL (1.2-4.9); Lymphocytes Percent Auto 20.1 % (20-40); Mean Corpuscular HGB Conc 32.8 g/dl (31.0-36.0); Mean Corpuscular Hemoglobin 31.3 pg (27.0-33.0); Mean Corpuscular Volume 95.4 fL (80.0-98.0); Mean Platelet Volume 9.2 fL (9.4-12.4); Monocytes Absolute Auto 0.4 X10*3/uL (0.1-1.2); Monocytes Percent Auto 6.5 % (2-11); Neutrophils Absolute Auto 4.2 x10*3/uL (2.0-8.3); Neutrophils Percent Auto 68.6 % (45-73); Platelet Count 238 X10*3/uL (160-400); Red Blood Count 4.09 X10*6/uL (4.60-5.80); Red Cell Distribution Width 14.5 % (11.0-16.0); White Blood Count 6.2 X10*3/uL (4.8-10.8)
[2021-10-03 17:16] LABS: COVID-19 Test Negative (Negative); IDNOW Serial# 16C4AD1C
[2021-10-03 17:19] LABS: Alanine Aminotransferase 22 U/L (0-40); Albumin Level 4.1 g/dL (3.5-5.0); Alkaline Phosphatase 75 U/L (39-117); Anion Gap 14 (12-20); Aspartate Amino Transferase 13 U/L (5-37); Bilirubin Total 0.7 mg/dL (0.0-1.0); Blood Urea Nitrogen 11 mg/dL (9-16); Calcium 9.3 mg/dL (8.4-10.2); Carbon Dioxide 24 mmol/L (22-29); Chloride 107 mmol/L (96-108); Creatinine Clr Calc Pharmacy 76.7; Estimated Glomerular Filt Rate > 60; Glucose Random 129 mg/dL (60-115); Potassium 3.9 mmol/L (3.3-5.1); Sodium 141 mmol/L (135-145); Total Protein 6.6 g/dL (6.5-8.0)
--- NOTE | 2021-10-03 19:31 | PC.NURSE ---
pt had near syncope episode yesterday afternoon, nausea and dizziness. reports 2 days of a pressure headache, eyes going to pop out of head c/o neck pain, stimulator in back to assist in voiding, body aches, knees have been buckling. Son is primary caregiver at home
--- NOTE | 2021-10-03 19:34 | ED_ITS ---
HPI - General Adult General Chief complaint: General Medical <RUBEN Maciel - Last Filed: 10/04/21 00:37> Stated complaint: pain and low bp sent in by dr <RUBEN Maciel Last Filed: 10/04/21 00:37> Time Seen by Provider: 10/03/21 19:10 <RUBEN Maciel Last Filed: 10/04/21 00:37> Source: patient <RUBEN Maciel Last Filed: 10/04/21 00:37> Mode of arrival: ambulatory <RUBEN Maciel Last Filed: 10/04/21 00:37> Limitations: no limitations <RUBEN Maciel Last Filed: 10/04/21 00:37> History of Present Illness HPI narrative: 55-year-old male past medical history significant for migraines, GERD, IBS presenting to the emergency department with complaints of low blood pressure, headache, abdominal pain, shortness of breath and body aches and pains x2 days. According to patient he had an episode yesterday in his car where he began shaking became very short of breath started experiencing jaw pain and arm pain, he was found by his son, he tells me he thought this was a panic attack however this did not feel like his typical panic attack, he had to get taken out of the vehicle by his son and carried into the house as he did not feel as though he was able to walk. According to the son patient was very pale, weak, confused at that time. Today patient tells me he is feeling weak, having body aches pain to his left lower quadrant that is stabbing in nature, severe, he is also experiencing a headache with photophobia. He tells me he is not having neck pain. This is not feel like his typical migraine. Patient tells me when he got to the emergency department he fell outside to the ground hit his head and neck, loss consciousness and was assisted by staff members/other patients to getting back inside. At this time he denies chest pain, fevers, chills, nausea, vomiting. <RUBEN Maciel Last Filed: 10/04/21 00:37> Onset (ago): day(s) (2) <RUBEN Maciel - Last Filed: 10/04/21 00:37> Location: head, face and mouth <RUBEN Maciel - Last Filed: 10/04/21 00:37> Radiation: non-radiation <RUBEN Maciel - Last Filed: 10/04/21 00:37> Severity: moderate <RUBEN Maciel - Last Filed: 10/04/21 00:37> Relieving factors: none <RUBEN Maciel - Last Filed: 10/04/21 00:37> Exacerbating factors: none <RUBEN Maciel - Last Filed: 10/04/21 00:37> Related Data Home medications: Home Medications Medication Instructions Recorded Confirmed alprazolam 1 mg tablet 1 mg PO BID PRN 05/22/20 10/04/21 cholecalciferol (vitamin D3) 50 50 mcg PO DAILY 05/22/20 10/04/21 mcg (2,000 unit) capsule escitalopram oxalate 10 mg tablet 10 mg PO QAM 05/22/20 10/04/21 fluticasone propionate 220 1 puff INHALATION BID g 05/22/20 10/04/21 mcg/actuation HFA aerosol inhaler (Flovent HFA) gabapentin 300 mg capsule 600 mg PO TID 05/22/20 10/04/21 ipratropium 20 mcg-albuterol 100 1 puff INHALATION .4 times daily g 05/22/20 10/04/21 mcg/actuation mist for inhalation (Combivent Respimat) lisinopril 5 mg tablet 5 mg PO BID 05/22/20 10/04/21 oxycodone 15 mg tablet 15 mg PO Q6H 05/22/20 10/04/21 atorvastatin 20 mg tablet 20 mg PO DAILY 07/05/20 10/04/21 melatonin 5 mg tablet 5 mg PO BEDTIME 07/05/20 10/04/21 albuterol sulfate 1 vial INHALATION QID 07/19/20 10/04/21 multivitamin (Daily-Petra) 1 tab PO DAILY 07/19/20 10/04/21 bupropion HCl 150 mg tablet,12 hr 300 mg PO DAILY 08/29/21 10/04/21 sustained-release divalproex 500 mg tablet,delayed 1,000 mg PO BID 08/29/21 10/04/21 release fluoxetine 20 mg capsule 20 mg PO DAILY 08/29/21 10/04/21 lipase 3,000-protease 1 cap PO DAILY 10/04/21 10/04/21 9,500-amylase 15,000 unit capsule, delayed rel (Creon) ondansetron HCl 4 mg tablet 4 mg PO BID PRN 10/04/21 10/04/21 Previous Rx's Medication Instructions Recorded dexlansoprazole 60 mg 60 mg PO DAILY #90 cap 07/03/21 capsule,biphase delayed release (Dexilant) bethanechol chloride 50 mg tablet 50 mg PO BID 90 Days #180 tab 08/29/21 tamsulosin 0.4 mg capsule 0.4 mg PO DAILY 30 Days #30 cap 09/04/21 famotidine 40 mg tablet 40 mg PO BEDTIME #90 tab 09/21/21 topiramate 25 mg tablet 25 mg PO DAILY #90 tab 09/21/21 <RUBEN Maciel - Last Filed: 10/04/21 00:37> Allergies/adverse reactions: Allergies Allergy/AdvReac Type Severity Reaction Status Date / Time cat dander [CATS] Allergy Unknown UNKNOWN Verified 08/29/21 11:44 dog dander [DOGS] Allergy Unknown UNKNOWN Verified 08/29/21 11:44 pollen extracts [POLLEN] Allergy Unknown UNKNOWN Verified 08/29/21 11:44 tree and shrub pollen Allergy sneeze Verified 08/29/21 11:44 <RUBEN Maciel - Last Filed: 10/04/21 00:37> Review of Systems Review of Systems: Constitutional : No Weight loss, No Fever, No Chills, No Fatigue, + Malaise ENT/Mouth : No sore throat, No Rhinorrhea Eyes: No Eye Pain, No Swelling, No Redness Cardiovascular : No Chest Pain, + SOB, + Dyspnea on Exertion, No Orthopnea, No Edema, No Palpitations Respiratory : No Cough, No Sputum, No Wheezing Gastrointestinal : No Nausea, No Vomiting, No Diarrhea, No Constipation, + abdominal Pain, No Hematochezia, No Melena Genitourinary : No Dysuria, No Urinary Frequency, No Hematuria, Musculoskeletal : + joint pain, + Myalgias, No Joint Swelling Skin : No Skin Lesions, No rash Neuro : + Weakness, No Numbness, No Dizziness, No Headache Psych : No Anxiety/Panic, No Depression All other systems reviewed and are negative <RUBEN Maciel - Last Filed: 10/04/21 00:37> Yes all other systems are reviewed and are negative <RUBEN Maciel - Last Filed: 10/04/21 00:37> [facility] Past Medical History Attestation statement: The following information was validated with the patient. <RUBEN Maciel - Last Filed: 10/04/21 00:37> Source: old records reviewed and nursing notes reviewed <RUBEN Maciel - Last Filed: 10/04/21 00:37> Medical History: Medical History Abdominal wall bulge Abnormal loss of weight Alcohol abuse Arthritis Asthma Balanitis Chronic back pain Depression Elevated blood pressure reading in office with diagnosis of hypertension Enlarged prostate Epidermal cyst Esophageal dysphagia Esophageal spasm Gout H/O ulcer disease High cholesterol History of anxiety History of depression History of panic attacks History of peptic ulcer disease Hx of insomnia Hx of irritable bowel syndrome Hypertension Incisional pain Left flank pain Lipoma of back Low back pain Marijuana use Multiple lipomas Multiple lipomas Osteoarthritis Pain in unspecified toe(s) Painful orthopaedic hardware Short frenulum of penis Slow urinary stream Thalamic pain syndrome Trochanteric bursitis, left hip Urinary retention <RUBEN Maciel - Last Filed: 10/04/21 00:37> Surgical History: Surgical History H/O breast surgery H/O neck surgery History of bunionectomy History of esophagogastroduodenoscopy (EGD) Hx of arthroscopy of left knee Hx of colonoscopy S/P excision of lipoma <RUBEN Maciel - Last Filed: 10/04/21 00:37> Family History Family History: Family History Family/Other Cancer Diabetes AIDS Brother Diabetes Myocardial infarction Father Enlarged prostate Mother Diabetes Asthma <RUBEN Maciel - Last Filed: 10/04/21 00:37> Social History Social History: Social History Are you a primary spiritual care coordinator to a significant other at home: No Do you presently have visiting nurse or other home services: No Alcohol intake: never Patient Tobacco Use Status: Current everyday Tobacco user Cigarettes Per Day: 6 Smoked in Last 30 Days: Yes Use of substances other than those prescribed or required for medical reasons: No Substance Use Type: Marijuana Substance Use Frequency: Daily Advance Directives: No <RUBEN Maciel - Last Filed: 10/04/21 00:37> Physical Exam ED Vital Signs: Vital Signs - 24 hr 10/03/21 16:40 10/03/21 19:27 10/03/21 19:35 Temperature 97.6 F Pulse Rate 90 53 63 Respiratory Rate 16 15 Blood Pressure 108/54 L 102/70 Pulse Oximetry 98 100 98 10/03/21 20:10 10/03/21 20:15 10/03/21 20:16 Temperature Pulse Rate 59 63 74 Respiratory Rate 18 Blood Pressure 111/59 L 97/61 Pulse Oximetry 10/03/21 20:18 10/03/21 20:39 10/03/21 21:45 Temperature Pulse Rate 80 58 62 Respiratory Rate 11 L 14 Blood Pressure 98/65 97/48 L 109/50 L Pulse Oximetry 100 95 10/03/21 22:50 10/03/21 22:53 10/03/21 22:59 Temperature Pulse Rate 160 H 164 H 65 Respiratory Rate Blood Pressure Pulse Oximetry 93 10/03/21 23:02 Temperature Pulse Rate 62 Respiratory Rate 24 H Blood Pressure 155/73 H Pulse Oximetry 95 BMI result Body Mass Index 27.1 VSS <RUBEN Maciel - Last Filed: 10/04/21 00:37> Appearance: Alert.? Oriented X3.? No acute distress.? Head: Normocephalic, atraumatic, no step-offs or deformities Eyes: Pupils equal, round and reactive to light.? ENT: Pharynx normal.?+ pain with palpation of TMJ. Neck: Normal inspection.? Neck supple.? CVS: Normal heart rate and rhythm.? Pulses normal.? Respiratory: No respiratory distress.?+ wheezing appreciated throughout. Abdomen: Soft and + pain to palpation LLQ .? Skin: Skin warm and dry.? Normal skin color.? Normal skin turgor.? Extremities: No lower extremity edema.? No calf ttp. 5/5 strength to bilateral upper and lower extremities Back: No midline tenderness, no C-spine tenderness, full range of motion, no CVA tenderness bilaterally. Neck with no meningeal sign, negative Kernig and Brudzinski. Neuro: Oriented X 3.? No motor deficit.? No sensory deficit. CN 2-12 intact <RUBEN Maciel - Last Filed: 10/04/21 00:37> Course Reevaluation(s) Reevaluation #1: CBC appears to be at patient's baseline. No acute electrolyte abnormalities. Creatinine kinase within normal limits unlikely rhabdo. Troponin negative. Unlikely ACS, nonischemic EKG also. D-dimer negative unlikely PE. Inflammatory markers within normal limits unlikely that this is temporal arteritis. Pending CT scans. <RUBEN Maciel Last Filed: 10/04/21 00:37> Time: 22:34 <RUBEN Maciel Last Filed: 10/04/21 00:37> Reevaluation #2: I was called to patient's bedside as he was shaking, not responding. He did have good 2+ pulses equal bilateral. Not answering questions. Patient had a 1 minute seizure. Followed by another seizure lasting approximately 1 minute. Patient was given 2 mg of IV Ativan followed by another mg. Patient has no history of epilepsy or seizure disorder. No recent falls. No recent head trauma. He was however complaining of a headache with photophobia. CT of the abdomen with no acute intra-abdominal process. On CT of the abdomen there are punctate hypodensities noted in the right hepatic lobe in triangular shaped hypodense lesion. There are bilateral renal cyst. Mild constipation. And bilateral dependent atelectasis noted on scans. Head CT and CT of the cervical spine pending. COVID and influenza negative. <RUBEN Maciel Last Filed: 10/04/21 00:37> Time: 23:02 <RUBEN Maciel Last Filed: 10/04/21 00:37> Reevaluation #3: Patient will be admitted to the hospitalist team. <RUBEN Maciel - Last Filed: 10/04/21 00:37> Time: 00:31 <RUBEN Maciel - Last Filed: 10/04/21 00:37> Medical Decision Making MDM Narrative Medical decision making narrative: 1933 55 yo m pmhx migraines, GERD, IBS presenting to the ED w/ complaints of shortness of breath, fall, headache with photophobia, abdominal pain to the left lower quadrant x2 days and low blood pressure according to his PCP. PE significant with pain to palpation over TMJ, wheezing throughout, regular rate and rhythm. Abdomen soft, tender to the left lower quadrant. No meningeal signs. Neuro nonfocal. Plan- labs, imaging. Will rule out rhabdo, covid, flu, ACS, ICH <RUBEN Maciel - Last Filed: 10/04/21 00:37> Medical Records Medical records reviewed: Yes I reviewed the patient's medical records. <RUBEN Maciel - Last Filed: 10/04/21 00:37> Lab Data Lab results reviewed: Yes I reviewed the patient's lab results. <RUBEN Maciel - Last Filed: 10/04/21 00:37> Result diagrams: : 10/04/21 07:01 10/04/21 07:01 <RUBEN Maciel - Last Filed: 10/04/21 00:37> Labs: Lab Results 10/03/21 10/03/21 10/03/21 Range/Units 16:56 16:56 16:56 WBC 6.2 (4.8-10.8) X10*3/uL RBC 4.09 L (4.60-5.80) X10*6/uL Hgb 12.8 L (14.0-18.0) g/dl Hct 39.0 L (42.0-52.0) % MCV 95.4 (80.0-98.0) fL MCH 31.3 (27.0-33.0) pg MCHC 32.8 (31.0-36.0) g/dl RDW 14.5 (11.0-16.0) % Plt Count 238 (160-400) X10*3/uL MPV 9.2 L (9.4-12.4) fL Immature Gran % (Auto) 0.2 (0.0-0.4) % Neut % (Auto) 68.6 (45-73) % Lymph % (Auto) 20.1 (20-40) % [place] % (Auto) 6.5 (2-11) % Eos % (Auto) 4.4 H (0-4) % Baso % (Auto) 0.2 (0-2) % Lymph # (Auto) 1.2 (1.2-4.9) X10*3/uL [place] # (Auto) 0.4 (0.1-1.2) X10*3/uL Eos # (Auto) 0.3 (0.0-0.4) X10*3/uL Baso # (Auto) 0.0 (0.0-0.2) X10*3/uL Abs Immat Gran (auto) 0.01 (0.00-0.03) X10*3/uL Absolute Neuts (auto) 4.2 (2.0-8.3) x10*3/uL Absolute Nucleated RBC 0.000 (0.0-0.012) X10*3/uL Nucleated RBC % (auto) 0.0 (0.0-0.2) /100WBC ESR (0-15) MM/HR D-Dimer High Sensitivty NG/ML Sodium 141 (135-145) mmol/L Potassium 3.9 (3.3-5.1) mmol/L Chloride 107 (96-108) mmol/L Carbon Dioxide 24 (22-29) mmol/L Anion Gap 14 (12-20) BUN 11 (9-16) mg/dL Creatinine 1.04 (0.5-1.4) mg/dL Estim Creat Clear Calc 76.7 Estimated GFR > 60 Random Glucose 129 H (60-115) mg/dL Calcium 9.3 (8.4-10.2) mg/dL Magnesium (1.6-2.6) mg/dL Total Bilirubin 0.7 (0.0-1.0) mg/dL AST 13 D (5-37) U/L ALT 22 (0-40) U/L Alkaline Phosphatase 75 (39-117) U/L Total Creatine Kinase (38-174) U/L Troponin I High Sens (<3.5-35.0) ng/L C-Reactive Protein (< or = 0.50) mg/dL Total Protein 6.6 (6.5-8.0) g/dL Albumin 4.1 (3.5-5.0) g/dL Lipase (8-78) U/L Urine Color Urine Appearance Urine pH (5.0-8.0) Ur Specific [place] (1.005-1.025) Urine Protein (NEG-TRACE) MG/DL Urine Glucose (UA) (NEG) MG/DL Urine Ketones (NEG) MG/DL Urine Blood (NEG) Urine Nitrite (NEG) Ur Leukocyte Esterase (NEG) COVID-19 ([place]NE) Negative (Negative) COVID-19 Clin Com See Note Influenza Type A (KATLYN) (Negative) Influenza Type B (KATLYN) (Negative) Influenza A & B Note 10/03/21 10/03/21 10/03/21 Range/Units 19:42 20:07 20:07 WBC (4.8-10.8) X10*3/uL RBC (4.60-5.80) X10*6/uL Hgb (14.0-18.0) g/dl Hct (42.0-52.0) % MCV (80.0-98.0) fL MCH (27.0-33.0) pg MCHC (31.0-36.0) g/dl RDW (11.0-16.0) % Plt Count (160-400) X10*3/uL MPV (9.4-12.4) fL Immature Gran % (Auto) (0.0-0.4) % Neut % (Auto) (45-73) % Lymph % (Auto) (20-40) % [place] % (Auto) (2-11) % Eos % (Auto) (0-4) % Baso % (Auto) (0-2) % Lymph # (Auto) (1.2-4.9) X10*3/uL [place] # (Auto) (0.1-1.2) X10*3/uL Eos # (Auto) (0.0-0.4) X10*3/uL Baso # (Auto) (0.0-0.2) X10*3/uL Abs Immat Gran (auto) (0.00-0.03) X10*3/uL Absolute Neuts (auto) (2.0-8.3) x10*3/uL Absolute Nucleated RBC (0.0-0.012) X10*3/uL Nucleated RBC % (auto) (0.0-0.2) /100WBC ESR 8 (0-15) MM/HR D-Dimer High Sensitivty NG/ML Sodium (135-145) mmol/L Potassium (3.3-5.1) mmol/L Chloride (96-108) mmol/L Carbon Dioxide (22-29) mmol/L Anion Gap (12-20) BUN (9-16) mg/dL Creatinine (0.5-1.4) mg/dL Estim Creat Clear Calc Estimated GFR Random Glucose (60-115) mg/dL Calcium (8.4-10.2) mg/dL Magnesium 2.1 (1.6-2.6) mg/dL Total Bilirubin (0.0-1.0) mg/dL AST (5-37) U/L ALT (0-40) U/L Alkaline Phosphatase (39-117) U/L Total Creatine Kinase 93 (38-174) U/L Troponin I High Sens (<3.5-35.0) ng/L C-Reactive Protein (< or = 0.50) mg/dL Total Protein (6.5-8.0) g/dL Albumin (3.5-5.0) g/dL Lipase (8-78) U/L Urine Color Urine Appearance Urine pH (5.0-8.0) Ur Specific [place] (1.005-1.025) Urine Protein (NEG-TRACE) MG/DL Urine Glucose (UA) (NEG) MG/DL Urine Ketones (NEG) MG/DL Urine Blood (NEG) Urine Nitrite (NEG) Ur Leukocyte Esterase (NEG) COVID-19 ([place]NE) (Negative) COVID-19 Clin Com Influenza Type A (KATLYN) Negative (Negative) Influenza Type B (KAT[place]N) Negative (Negative) Influenza A & B Note See Note 10/03/21 10/03/21 10/03/21 Range/Units 20:07 20:07 20:07 WBC (4.8-10.8) X10*3/uL RBC (4.60-5.80) X10*6/uL Hgb (14.0-18.0) g/dl Hct (42.0-52.0) % MCV (80.0-98.0) fL MCH (27.0-33.0) pg MCHC (31.0-36.0) g/dl RDW (11.0-16.0) % Plt Count (160-400) X10*3/uL MPV (9.4-12.4) fL Immature Gran % (Auto) (0.0-0.4) % Neut % (Auto) (45-73) % Lymph % (Auto) (20-40) % [place] % (Auto) (2-11) % Eos % (Auto) (0-4) % Baso % (Auto) (0-2) % Lymph # (Auto) (1.2-4.9) X10*3/uL [place] # (Auto) (0.1-1.2) X10*3/uL Eos # (Auto) (0.0-0.4) X10*3/uL Baso # (Auto) (0.0-0.2) X10*3/uL Abs Immat Gran (auto) (0.00-0.03) X10*3/uL Absolute Neuts (auto) (2.0-8.3) x10*3/uL Absolute Nucleated RBC (0.0-0.012) X10*3/uL Nucleated RBC % (auto) (0.0-0.2) /100WBC ESR (0-15) MM/HR D-Dimer High Sensitivty < 150 NG/ML Sodium (135-145) mmol/L Potassium (3.3-5.1) mmol/L Chloride (96-108) mmol/L Carbon Dioxide (22-29) mmol/L Anion Gap (12-20) BUN (9-16) mg/dL Creatinine (0.5-1.4) mg/dL Estim Creat Clear Calc Estimated GFR Random Glucose (60-115) mg/dL Calcium (8.4-10.2) mg/dL Magnesium (1.6-2.6) mg/dL Total Bilirubin (0.0-1.0) mg/dL AST (5-37) U/L ALT (0-40) U/L Alkaline Phosphatase (39-117) U/L Total Creatine Kinase (38-174) U/L Troponin I High Sens < 3.5 (<3.5-35.0) ng/L C-Reactive Protein 0.40 (< or = 0.50) mg/dL Total Protein (6.5-8.0) g/dL Albumin (3.5-5.0) g/dL Lipase 16 (8-78) U/L Urine Color Urine Appearance Urine pH (5.0-8.0) Ur Specific [place] (1.005-1.025) Urine Protein (NEG-TRACE) MG/DL Urine Glucose (UA) (NEG) MG/DL Urine Ketones (NEG) MG/DL Urine Blood (NEG) Urine Nitrite (NEG) Ur Leukocyte Esterase (NEG) COVID-19 ([place]) (Negative) COVID-19 Clin Com Influenza Type A ([place]N) (Negative) Influenza Type B ([place]N) (Negative) Influenza A & B Note 10/03/21 Range/Units 20:48 WBC (4.8-10.8) X10*3/uL RBC (4.60-5.80) X10*6/uL Hgb (14.0-18.0) g/dl Hct (42.0-52.0) % MCV (80.0-98.0) fL MCH (27.0-33.0) pg MCHC (31.0-36.0) g/dl RDW (11.0-16.0) % Plt Count (160-400) X10*3/uL MPV (9.4-12.4) fL Immature Gran % (Auto) (0.0-0.4) % Neut % (Auto) (45-73) % Lymph % (Auto) (20-40) % [place] % (Auto) (2-11) % Eos % (Auto) (0-4) % Baso % (Auto) (0-2) % Lymph # (Auto) (1.2-4.9) X10*3/uL [place] # (Auto) (0.1-1.2) X10*3/uL Eos # (Auto) (0.0-0.4) X10*3/uL Baso # (Auto) (0.0-0.2) X10*3/uL Abs Immat Gran (auto) (0.00-0.03) X10*3/uL Absolute Neuts (auto) (2.0-8.3) x10*3/uL Absolute Nucleated RBC (0.0-0.012) X10*3/uL Nucleated RBC % (auto) (0.0-0.2) /100WBC ESR (0-15) MM/HR D-Dimer High Sensitivty NG/ML Sodium (135-145) mmol/L Potassium (3.3-5.1) mmol/L Chloride (96-108) mmol/L Carbon Dioxide (22-29) mmol/L Anion Gap (12-20) BUN (9-16) mg/dL Creatinine (0.5-1.4) mg/dL Estim Creat Clear Calc Estimated GFR Random Glucose (60-115) mg/dL Calcium (8.4-10.2) mg/dL Magnesium (1.6-2.6) mg/dL Total Bilirubin (0.0-1.0) mg/dL AST (5-37) U/L ALT (0-40) U/L Alkaline Phosphatase (39-117) U/L Total Creatine Kinase (38-174) U/L Troponin I High Sens (<3.5-35.0) ng/L C-Reactive Protein (< or = 0.50) mg/dL Total Protein (6.5-8.0) g/dL Albumin (3.5-5.0) g/dL Lipase (8-78) U/L Urine Color YELLOW Urine Appearance CLEAR Urine pH 6.0 (5.0-8.0) Ur Specific [place] >= 1.030 H (1.005-1.025) Urine Protein NEG (NEG-TRACE) MG/DL Urine Glucose (UA) NEG (NEG) MG/DL Urine Ketones NEG (NEG) MG/DL Urine Blood NEG (NEG) Urine Nitrite NEG (NEG) Ur Leukocyte Esterase NEG (NEG) COVID-19 ([place]) (Negative) COVID-19 Clin Com Influenza Type A ([place]) (Negative) Influenza Type B ([place]) (Negative) Influenza A & B Note <RUBEN Maciel - Last Filed: 10/04/21 00:37> ECG Data Attestation: I personally reviewed and interpreted this ECG as follows: <RUBEN Maciel Last Filed: 10/04/21 00:37> Prior ECG tracings: available for review <RUBEN Maciel Last Filed: 10/04/21 00:37> Interpretation: I ventricular rate of 73 GA normal, QT/QTC normal. EKG shows normal sinus rhythm, no ST elevations or inversions concerning for ischemia. No significant changes when compared with EKG from December 2017 <RUBEN Maciel Last Fi led: 10/04/21 00:37> Critical Care Time Critical Care Time Critical Care Time: No <RUBEN Maciel Last Filed: 10/04/21 00:37> Discharge Plan Discharge Clinical Impression: Seizure, Headache, Photophobia, Abdominal pain, Pain in both testicles, Shortness of breath <RUBEN Maciel Last Filed: 10/04/21 00:37> Patient Disposition: Admitted As Inpatient <RUBEN Maciel Last Filed: 10/04/21 00:37>
[2021-10-03 20:02] LABS: Influenza A Negative (Negative); Influenza B2 Negative (Negative)
[2021-10-03] MEDS: Albuterol Sulfate (0.083%) 2.5 MG/3 ML VIAL.NEB 10 MG INHALE (20:09)
[2021-10-03] MEDS: 0.9 % Sodium Chloride 1,000 ML 999 ML IV ×2 (20:22→22:57)
[2021-10-03 20:26] LABS: D Dimer High Sensitivity < 150 NG/ML
[2021-10-03 20:34] LABS: Magnesium 2.1 mg/dL (1.6-2.6)
[2021-10-03 20:40] LABS: Troponin-I High Sensitivity < 3.5 ng/L (<3.5-35.0)
[2021-10-03 20:56] LABS: Appearance Urine CLEAR; Color Urine YELLOW; Glucose Urine UA NEG (NEG); Leukocyte Esterase Urine NEG (NEG); Nitrite Urine NEG (NEG); Specific Gravity - Urine >= 1.030 (1.005-1.025); Urine Blood NEG (NEG); Urine Ketones NEG (NEG); Urine Protein NEG (NEG-TRACE)
[2021-10-03] MEDS: iohexoL 350 MG/ML 100 ML INFUS..BTL IV (22:37)
[2021-10-03 22:49] LABS: Lipase 16 U/L (8-78)
[2021-10-03] MEDS: LORazepam 2 MG/ML VIAL IVPUSH (22:51)
[2021-10-03] MEDS: LORazepam 2 MG/ML VIAL 1 MG IVPUSH (22:55)
--- NOTE | 2021-10-03 23:44 | P.HPHOSP_ITS ---
History of Present Illness Date of Service: 10/03/21 Chief Complaint: Low blood pressure; seizure 55M with a past medical history of hypertension, hyperlipidemia, asthma, BPH, anxiety, depression, chronic low back pain, cannabis use, osteoarthritis, thalamic pain syndrome, history of urinary retention, history of peptic ulcer disease, history of panic attacks, bipolar disorder, history of dysphagia; presented to the hospital today with a chief complaint of headache. Patient is a poor historian, also patient received Ativan in the ER for seizure episode making him drowsy. Most of the history obtained from the ER records, family at bedside. Reportedly patient has been having whole-body shaking episodes; yesterday he had 1 episode in the car; followed by patient was noted to be lethargic; today patient was complaining of the headache hence brought him to the hospital for further evaluation. At the time of my interview patient is drowsy, follows simple commands; denies any abdominal pain, nausea vomiting, chest pain or palpitations. Denies any shortness of breath. Denies any urinary symptoms. Patient reported that he had headache but it is improving. ER course: pt noted to have Wheezing-> nebs given LLQ pain: CT abd negative. Headaches: photophobia+; No meningeal signs, CT head and CT c spine- negative, no temporal tnderness; ESR negative. VNA- not Lower BP than his normal BP; PCP said go home. ESR, CRP, Labs benign; ddimer negative. Scrotal pain: USG negative for torsion; possible epididymitis-> given ceftriaxone. 2 episodes of GTC seizures in ER; postictal lethargy-> Ativan 1mg IVx3. non focal exam. BP stable. given 2lit IV fluids. Admitted for further management [facility] Medical History Abdominal wall bulge Abnormal loss of weight Alcohol abuse Arthritis Asthma Balanitis Chronic back pain Depression Elevated blood pressure reading in office with diagnosis of hypertension Enlarged prostate Epidermal cyst Esophageal dysphagia Esophageal spasm Gout H/O ulcer disease High cholesterol History of anxiety History of depression History of panic attacks History of peptic ulcer disease Hx of insomnia Hx of irritable bowel syndrome Hypertension Incisional pain Left flank pain Lipoma of back Low back pain Marijuana use Multiple lipomas Multiple lipomas Osteoarthritis Pain in unspecified toe(s) Painful orthopaedic hardware Short frenulum of penis Slow urinary stream Thalamic pain syndrome Trochanteric bursitis, left hip Urinary retention Family History Family/Other Cancer Diabetes AIDS Brother Diabetes Myocardial infarction Father Enlarged prostate Mother Diabetes Asthma Surgical History H/O breast surgery H/O neck surgery History of bunionectomy History of esophagogastroduodenoscopy (EGD) Hx of arthroscopy of left knee Hx of colonoscopy S/P excision of lipoma Social History Are you a primary child care supervisor to a significant other at home: No Do you presently have visiting nurse or other home services: No Alcohol intake: never Patient Tobacco Use Status: Current everyday Tobacco user Cigarettes Per Day: 6 Smoked in Last 30 Days: Yes Use of substances other than those prescribed or required for medical reasons: No Substance Use Type: Marijuana Substance Use Frequency: Daily Advance Directives: No Meds Allergies Allergy/AdvReac Type Severity Reaction Status Date / Time cat dander [CATS] Allergy Unknown UNKNOWN Verified 08/29/21 11:44 dog dander [DOGS] Allergy Unknown UNKNOWN Verified 08/29/21 11:44 pollen extracts [POLLEN] Allergy Unknown UNKNOWN Verified 08/29/21 11:44 tree and shrub pollen Allergy sneeze Verified 08/29/21 11:44 Active Medications: Current Medications Sodium Chloride (Ns) 1,000 mls @ 999 mls/hr IV .Q1H1M SAEID Stop: 10/03/21 23:45 Last Admin: 10/03/21 22:57 Dose: 999 mls/hr Documented by: Home Medications Medication Instructions Recorded Confirmed Last Taken Type alprazolam 1 mg tablet 1 mg PO BID PRN 05/22/20 01/10/21 Unknown History cholecalciferol (vitamin D3) 50 50 mcg PO DAILY 05/22/20 01/10/21 Unknown History mcg (2,000 unit) capsule escitalopram oxalate 10 mg tablet 10 mg PO QAM 05/22/20 01/10/21 Unknown History fluticasone propionate 220 1 puff INHALATION BID g 05/22/20 01/10/21 Unknown History mcg/actuation HFA aerosol inhaler (Flovent HFA) gabapentin 300 mg capsule 600 mg PO TID 05/22/20 01/10/21 Unknown History ipratropium 20 mcg-albuterol 100 1 puff INHALATION .4 times daily g 05/22/20 01/10/21 Unknown History mcg/actuation mist for inhalation (Combivent Respimat) lisinopril 5 mg tablet 5 mg PO BID 05/22/20 01/10/21 Unknown History oxycodone 15 mg tablet 15 mg PO Q6H 05/22/20 01/10/21 Unknown History atorvastatin 20 mg tablet 20 mg PO DAILY 07/05/20 01/10/21 Unknown History melatonin 5 mg tablet 5 mg PO BEDTIME 07/05/20 01/10/21 Unknown History albuterol sulfate 1 vial INHALATION QID 07/19/20 01/10/21 Unknown History multivitamin (Daily-Petra) 1 tab PO DAILY 07/19/20 01/10/21 Unknown History bupropion HCl 150 mg tablet,12 hr 0 mg PO 08/29/21 Unknown History sustained-release divalproex 500 mg tablet,delayed 1,000 mg PO BID 08/29/21 Unknown History release fluoxetine 20 mg capsule 20 mg PO DAILY 08/29/21 Unknown History lipase 3,000-protease 1 cap PO DAILY 10/04/21 Unknown History 9,500-amylase 15,000 unit capsule, delayed rel (Creon) ondansetron HCl 4 mg tablet 4 mg PO BID PRN 10/04/21 Unknown History Physical Exam Vital Signs and Narrative: Vital Signs: Last Vital Signs Temp 97.6 F 10/03/21 16:40 Pulse 62 10/03/21 23:02 Resp 24 H 10/03/21 23:02 BP 155/73 H 10/03/21 23:02 Pulse Ox 95 10/03/21 23:02 BMI result Body Mass Index 27.1 Results Labs CBC and Chem 7: 10/03/21 16:56 10/03/21 23:47 Labs: Laboratory Results - last 24 hr 10/03/21 10/03/21 10/03/21 16:56 16:56 16:56 MCV 95.4 MCH 31.3 MCHC 32.8 RDW 14.5 Plt Count 238 MPV 9.2 L Immature Gran % (Auto) 0.2 Neut % (Auto) 68.6 Lymph % (Auto) 20.1 [place] % (Auto) 6.5 Eos % (Auto) 4.4 H Baso % (Auto) 0.2 Lymph # (Auto) 1.2 [place] # (Auto) 0.4 Eos # (Auto) 0.3 Baso # (Auto) 0.0 Abs Immat Gran (auto) 0.01 Absolute Neuts (auto) 4.2 Absolute Nucleated RBC 0.000 Nucleated RBC % (auto) 0.0 D-Dimer High Sensitivty Anion Gap 14 Estim Creat Clear Calc 76.7 Estimated GFR > 60 Random Glucose 129 H Calcium 9.3 Magnesium Total Bilirubin 0.7 AST 13 D ALT 22 Alkaline Phosphatase 75 Total Creatine Kinase Troponin I High Sens C-Reactive Protein Total Protein 6.6 Albumin 4.1 Lipase Urine Color Urine Appearance Urine pH Ur Specific [place] Urine Protein Urine Glucose (UA) Urine Ketones Urine Blood Urine Nitrite Ur Leukocyte Esterase COVID-19 ([facility]YANNE) Negative COVID-19 Clin Com See Note Influenza Type A (KATLYN) Influenza Type B (KATLYN) Influenza A & B Note 10/03/21 10/03/21 10/03/21 19:42 20:07 20:07 MCV MCH MCHC RDW Plt Count MPV Immature Gran % (Auto) Neut % (Auto) Lymph % (Auto) [place] % (Auto) Eos % (Auto) Baso % (Auto) Lymph # (Auto) [place] # (Auto) Eos # (Auto) Baso # (Auto) Abs Immat Gran (auto) Absolute Neuts (auto) Absolute Nucleated RBC Nucleated RBC % (auto) D-Dimer High Sensitivty Anion Gap Estim Creat Clear Calc Estimated GFR Random Glucose Calcium Magnesium 2.1 Total Bilirubin AST ALT Alkaline Phosphatase Total Creatine Kinase 93 Troponin I High Sens C-Reactive Protein 0.40 Total Protein Albumin Lipase 16 Urine Color Urine Appearance Urine pH Ur Specific [place] Urine Protein Urine Glucose (UA) Urine Ketones Urine Blood Urine Nitrite Ur Leukocyte Esterase COVID-19 ([facility]NE) COVID-19 Clin Com Influenza Type A (KATLYN) Negative Influenza Type B (KATLYN) Negative Influenza A & B Note See Note 10/03/21 10/03/21 10/03/21 20:07 20:07 20:48 MCV MCH MCHC RDW Plt Count MPV Immature Gran % (Auto) Neut % (Auto) Lymph % (Auto) [place] % (Auto) Eos % (Auto) Baso % (Auto) Lymph # (Auto) [place] # (Auto) Eos # (Auto) Baso # (Auto) Abs Immat Gran (auto) Absolute Neuts (auto) Absolute Nucleated RBC Nucleated RBC % (auto) D-Dimer High Sensitivty < 150 Anion Gap Estim Creat Clear Calc Estimated GFR Random Glucose Calcium Magnesium Total Bilirubin AST ALT Alkaline Phosphatase Total Creatine Kinase Troponin I High Sens < 3.5 C-Reactive Protein Total Protein Albumin Lipase Urine Color YELLOW Urine Appearance CLEAR Urine pH 6.0 Ur Specific [place] >= 1.030 H Urine Protein NEG Urine Glucose (UA) NEG Urine Ketones NEG Urine Blood NEG Urine Nitrite NEG Ur Leukocyte Esterase NEG COVID-19 ([facility]NE) COVID-19 Clin Com Influenza Type A (KATLYN) Influenza Type B (KATLYN) Influenza A & B Note Imaging Radiologist's Impressions: Impressions Scrotum Ultrasound 10/03/21 21:11 IMPRESSION: Questionable enlargement and heterogeneity of the right epididymal body raising the possibility of epididymitis in the appropriate clinical context. Recommend a short-term follow-up study after treatment to ensure resolution. Left greater than right hydroceles. A 0.6 cm simple appearing intraparenchymal cyst in the left testis is unchanged since 2018. Cervical Spine CT 10/03/21 22:15 IMPRESSION: No acute intracranial pathology. No cervical spine fracture or malalignment. Head CT 10/03/21 22:15 IMPRESSION: No acute intracranial pathology. No cervical spine fracture or malalignment. Abdomen/Pelvis CT 10/03/21 22:38 IMPRESSION: No acute intra-abdominal process seen. Punctate hypodensity right hepatic lobe and a triangular shaped hypodense lesion with peripheral hyperdensity or enhancement likely hemangioma. Bilateral renal cysts but no radiopaque renal calculi or hydronephrosis. Mild constipation with scattered colonic diverticulosis. Bilateral dependent atelectasis or scarring in both lower lobes posterior and superior segments. No acute pneumonic consolidation. Chest CT 10/03/21 22:38 IMPRESSION: No acute intra-abdominal process seen. Punctate hypodensity right hepatic lobe and a triangular shaped hypodense lesion with peripheral hyperdensity or enhancement likely hemangioma. Bilateral renal cysts but no radiopaque renal calculi or hydronephrosis. Mild constipation with scattered colonic diverticulosis. Bilateral dependent atelectasis or scarring in both lower lobes posterior and superior segments. No acute pneumonic consolidation. Assessment and Plan (1) Seizure: Status: Acute Plan 55M with a past medical history of hypertension, hyperlipidemia, asthma, BPH, anxiety, depression, chronic low back pain, cannabis use, osteoarthritis, thal amic pain syndrome, history of urinary retention, history of peptic ulcer disease, history of panic attacks, bipolar disorder, history of dysphagia; presented to the hospital today with a chief complaint of headache/Seizures Seizures: Patient had 2 episode of tonic-clonic seizure in ER. Ativan p.r.n. for seizure EEG Neurology consult CT head showed no acute findings Denies any prior history of seizures. Patient on Depakote and Topamax at home for bipolar disorder. Headaches: Patient reported photophobia. Patient has prior history of migraine headaches. Pain control. CT head showed no acute findings. Exam nonfocal. No meningeal signs. Epididimytis: c/w Ceftriaxone. ID consult. Ultrasound showed no evidence of testicular torsion. Hydrocele: urology follow up. Liver lesion: Gastroenterology consult Hx HTN: BP on normal side. Hold home antihypertensives for now. For all other chronic conditions, home medications will be continued once med rec is done DVT prophylaxis: [facility] Code status: Full code Quality Stroke Does the patient have a stroke diagnosis?: No VTE Prior VTE?: No VTE Risk Level:: Medical - moderate - high VTE Device Contraindication: Treatment Not Indicated VTE Drug Contraindication: N/A - Med Ordered
--- NOTE | 2021-10-04 | EEG_ITS ---
This is a 16-channel EEG with an EKG lead. The patient is reported awake during the tracing. Background EEG rhythm is low amplitude fast with no obvious asymmetry or paroxysmal tendency. Photic stimulation does not produce any significant abnormality. Hyperventilation is not performed. Cardiac lead does not reveal any significant abnormality. No sharp wave spikes or paroxysmal tendency noted. IMPRESSION: Unremarkable electroencephalogram. MD SHAHID Small/ROLAND / [id number]
[2021-10-04 00:02] LABS: Erythrocyte Sedimentation Rate 8 MM/HR (0-15)
[2021-10-04 00:13] LABS: Anion Gap 10 (12-20); Blood Urea Nitrogen 10 mg/dL (9-16); Calcium 8.5 mg/dL (8.4-10.2); Carbon Dioxide 24 mmol/L (22-29); Chloride 108 mmol/L (96-108); Creatinine Clr Calc Pharmacy 83.1; Estimated Glomerular Filt Rate > 60; Glucose Random 116 mg/dL (60-115); Potassium 3.6 mmol/L (3.3-5.1); Sodium 138 mmol/L (135-145)
[2021-10-04] MEDS: Dextrose 5 % and 0.45 % NaCl 1,000 ML 100 ML IVCONT ×2 (00:20→14:45)
[2021-10-04] MEDS: Heparin Sodium,Porcine 5,000 UNIT/ML VIAL 5000 UNIT SUBCUT ×3 (00:20→14:47)
[2021-10-04] MEDS: cefTRIAXone sodium 500 MG VIAL IM (00:20)
[2021-10-04 01:03] VITALS: BP 112/65; PULSE 62; RESP 16; O2SAT 96
[2021-10-04 05:53] VITALS: RESP 12
[2021-10-04] MEDS: HYDROmorphone HCl 1 MG/ML SYRINGE 0.5 MG IVPUSH (05:53)
[2021-10-04 05:58] VITALS: BP 117/58; PULSE 58; RESP 14; O2SAT 96
--- NOTE | 2021-10-04 06:37 | PC.NURSE ---
at approx 2250, While at patients bedside, pt began shaking, and initally wasnt responding . HR 150, pt did have pulses, PA notified. Patient had a 1 minute seizure, Followed by another seizure for approx 1 minute. Patient received 2 mg of IV Ativan followed by another 1 mg. Pt did come to shortly after and was able to answer questions appropriately. pts son at bedside throughout episode stating that he has been doing this as of recent.
[2021-10-04 07:29] LABS: MANUAL DIFF FLAG NO
[2021-10-04 07:34] LABS: Basophils Percent Auto 0.1 % (0-2); Eosinophils Absolute Auto 0.2 X10*3/uL (0.0-0.4); Eosinophils Percent Auto 3.1 % (0-4); Hematocrit 36.6 % (42.0-52.0); Imm Gran Abs Auto 0.02 X10*3/uL (0.00-0.03); Imm Gran Pct Auto 0.3 % (0.0-0.4); Lymphocytes Percent Auto 13.3 % (20-40); Mean Corpuscular HGB Conc 32.8 g/dl (31.0-36.0); Mean Corpuscular Hemoglobin 31.7 pg (27.0-33.0); Mean Corpuscular Volume 96.8 fL (80.0-98.0); Mean Platelet Volume 9.7 fL (9.4-12.4); Monocytes Absolute Auto 0.6 X10*3/uL (0.1-1.2); Monocytes Percent Auto 7.8 % (2-11); Neutrophils Absolute Auto 5.5 x10*3/uL (2.0-8.3); Neutrophils Percent Auto 75.4 % (45-73); Platelet Count 205 X10*3/uL (160-400); Red Blood Count 3.78 X10*6/uL (4.60-5.80); Red Cell Distribution Width 14.5 % (11.0-16.0); White Blood Count 7.3 X10*3/uL (4.8-10.8)
[2021-10-04 07:50] LABS: Anion Gap 9 (12-20); Blood Urea Nitrogen 9 mg/dL (9-16); Calcium 8.4 mg/dL (8.4-10.2); Carbon Dioxide 25 mmol/L (22-29); Chloride 112 mmol/L (96-108); Creatinine Clr Calc Pharmacy 91.8; Estimated Glomerular Filt Rate > 60; Glucose Random 117 mg/dL (60-115); Potassium 4.3 mmol/L (3.3-5.1); Sodium 142 mmol/L (135-145)
--- NOTE | 2021-10-04 08:22 | PC.NURSE ---
Pt c/o vague pains all over (neck, head, groin). LS slight wheeze, skin pwd. c.o gen weakness. no focal deficits for this rn. has diff recalling night's events. son at bedside. aware of NPO status.
--- NOTE | 2021-10-04 08:37 | PC.NURSE ---
update to daughter via phone.
--- NOTE | 2021-10-04 09:26 | PC.NURSE ---
son can be reached at [phone] for med questions. also named Zain Lazcano Jr.
[2021-10-04] MEDS: Multivitamin TABLET 1 TAB PO (09:28)
[2021-10-04] MEDS: Divalproex Sodium 500 MG TABLET.DR 1000 MG PO (09:28)
[2021-10-04] MEDS: Atorvastatin Calcium 20 MG TABLET PO (09:28)
[2021-10-04] MEDS: Topiramate 25 MG TABLET PO (09:29)
[2021-10-04] MEDS: Gabapentin 300 MG CAPSULE 600 MG PO (09:29)
[2021-10-04] MEDS: Famotidine 20 MG TABLET 40 MG PO (09:29)
[2021-10-04] MEDS: Tamsulosin HCL 0.4 MG CAPSULE PO (09:29)
[2021-10-04] MEDS: oxyCODONE HCl Immed Release 15 MG TABLET PO ×2 (09:30→15:58)
--- NOTE | 2021-10-04 09:31 | PC.NURSE ---
headed to EEG. pain meds for vague head and neck pain.
--- NOTE | 2021-10-04 09:33 | PC.NURSE ---
has been evaled by vineet belle
--- NOTE | 2021-10-04 10:00 | MHC.CM.PN ---
Attempted to meet with patient in regards to discharge planning. Patient currently at a test. No family present. Will attempt to meet again. Continue to monitor for d/c needs.
[2021-10-04 10:59] VITALS: BP 110/63; PULSE 58; RESP 19; TEMP 36.8; O2SAT 94
[2021-10-04] MEDS: buPROPion HCl XL 300 MG TAB.ER.24H PO (11:08)
[2021-10-04] MEDS: Bethanechol Chloride 25 MG TABLET 50 MG PO (11:08)
--- NOTE | 2021-10-04 11:50 | PM.NEUROCN ---
History of Present Illness Data of Consult Service Date: 10/04/21 Primary Care Provider: Pati Land MD [facility] Reason for consult: Seizure 55 years old man with long list of medical problems described in hospitals note. More specifically he suffered from bilateral body and hand tremor especially when he would miss his medicines. He also has suffered from anxiety disorder, prostate problems and related difficulty urination that was treated with multiple urethral procedures and ultimately some hardware was placed for help, which apparently has not helped him. He was brought to hospital after noted to be having an episode of generalized shaking. He had no recollection of that event. Family has seen shaking in the past but during those shakes he was alert and awake and not unresponsive but this time it was different. Review of Systems Review of Systems: Difficulty urination generalized shaking specially in hands. No recent cold or flu-like illness per PMFSH Past Medical History Medical History Abdominal wall bulge Abnormal loss of weight Alcohol abuse Arthritis Asthma Balanitis Chronic back pain Depression Elevated blood pressure reading in office with diagnosis of hypertension Enlarged prostate Epidermal cyst Esophageal dysphagia Esophageal spasm Gout H/O ulcer disease High cholesterol History of anxiety History of depression History of panic attacks History of peptic ulcer disease Hx of insomnia Hx of irritable bowel syndrome Hypertension Incisional pain Left flank pain Lipoma of back Low back pain Marijuana use Multiple lipomas Multiple lipomas Osteoarthritis Pain in unspecified toe(s) Painful orthopaedic hardware Short frenulum of penis Slow urinary stream Thalamic pain syndrome Trochanteric bursitis, left hip Urinary retention Family History Family History Family/Other Cancer Diabetes AIDS Brother Diabetes Myocardial infarction Father Enlarged prostate Mother Diabetes Asthma Surgical History Surgical History H/O breast surgery H/O neck surgery History of bunionectomy History of esophagogastroduodenoscopy (EGD) Hx of arthroscopy of left knee Hx of colonoscopy S/P excision of lipoma Social History Social History Are you a primary home care scheduler to a significant other at home: No Do you presently have visiting nurse or other home services: No Alcohol intake: never Patient Tobacco Use Status: Current everyday Tobacco user Cigarettes Per Day: 6 Smoked in Last 30 Days: Yes Use of substances other than those prescribed or required for medical reasons: No Substance Use Type: Marijuana Substance Use Frequency: Daily Advance Directives: No Meds Allergies Allergy/AdvReac Type Severity Reaction Status Date / Time cat dander [CATS] Allergy Unknown UNKNOWN Verified 08/29/21 11:44 dog dander [DOGS] Allergy Unknown UNKNOWN Verified 08/29/21 11:44 pollen extracts [POLLEN] Allergy Unknown UNKNOWN Verified 08/29/21 11:44 tree and shrub pollen Allergy sneeze Verified 08/29/21 11:44 Active Medications: Current Medications Acetaminophen (Acetaminophen 325 Mg Tablet) 650 mg PO Q6H PRN PRN Reason: Pain, Mild (Pain Scale 1-3) Albuterol Sulfate (Albuterol Sulfate (0.083%) 2.5 Mg/3 Ml Vial.Neb) 2.5 mg INHALE RQID [facility] Last Admin: 10/04/21 11:39 Dose: Not Given Documented by: Alprazolam (Alprazolam 0.5 Mg Tablet) 1 mg PO BID PRN PRN Reason: Anxiety Atorvastatin Calcium (Atorvastatin Calcium 20 Mg Tablet) 20 mg PO DAILY [facility] Last Admin: 10/04/21 09:28 Dose: 20 mg Documented by: Benzonatate (Benzonatate 100 Mg Capsule) 100 mg PO TID PRN PRN Reason: Cough Bethanechol Chloride (Bethanechol Chloride 25 Mg Tablet) 50 mg PO BID [facility] Last Admin: 10/04/21 11:08 Dose: 50 mg Documented by: Bupropion HCl (Bupropion Hcl Xl 300 Mg Tab.Er.24h) 300 mg PO DAILY [facility] Last Admin: 10/04/21 11:08 Dose: 300 mg Documented by: Divalproex Sodium (Divalproex Sodium 500 Mg Tablet.Dr) 1,000 mg PO BID [facility] Last Admin: 10/04/21 09:28 Dose: 1,000 mg Documented by: Famotidine (Famotidine 20 Mg Tablet) 40 mg PO BEDTIME [facility] Last Admin: 10/04/21 09:29 Dose: 40 mg Documented by: Fluoxetine HCl (Fluoxetine Hcl 20 Mg Capsule) 20 mg PO DAILY [facility] Gabapentin (Gabapentin 300 Mg Capsule) 600 mg PO TID [facility] Last Admin: 10/04/21 09:29 Dose: 600 mg Documented by: Heparin Sodium (Porcine) (Heparin Sodium,Porcine 5,000 Unit/Ml Vial) 5,000 unit SUBCUT Q8H [facility] Last Admin: 10/04/21 07:57 Dose: 5,000 unit Documented by: Hydromorphone HCl (Hydromorphone Hcl 1 Mg/Ml Syringe) 0.5 mg IVPUSH Q4H PRN; Protocol PRN Reason: Pain, Severe (Pain Scale 7-10) Last Admin: 10/04/21 05:53 Dose: 0.5 mg Documented by: Dextrose/Sodium Chloride (D51/2ns) 1,000 mls @ 100 mls/hr IVCONT .Q10H [facility] Last Admin: 10/04/21 00:20 Dose: 100 mls/hr Documented by: Lorazepam (Lorazepam 2 Mg/Ml Vial) 1 mg IVPUSH Q2H PRN PRN Reason: Seizures Melatonin (Melatonin 3 Mg Tablet) 6 mg PO BEDTIME PRN PRN Reason: Insomnia Melatonin (Melatonin 3 Mg Tablet) 6 mg PO BEDTIME [facility] Multivitamins/Vitamin C (Multivitamin Tablet) 1 tab PO DAILY [facility] Last Admin: 10/04/21 09:28 Dose: 1 tab Documented by: Nicotine Polacrilex (Nicotine Polacrilex 2 Mg Gum) 2 mg BUCCAL Q2H PRN PRN Reason: Nicotine Cravings Non-Formulary Medication (Cufisz-Fhzzjwjc-Wcvecvu [Creon]) 1 cap PO DAILY [facility] Non-Formulary Medication (Fluticasone Propionate [Flovent Hfa]) 1 puff INHALE BID [facility] Omeprazole (Omeprazole 40 Mg Capsule.Dr) 40 mg PO DAILY@0630 [facility] Oxycodone HCl (Oxycodone Hcl Immed Release 15 Mg Tablet) 15 mg PO Q6H [facility] Last Admin: 10/04/21 09:30 Dose: 15 mg Documented by: Pharmacy Consult (Consult Rx Perform Med Rec) 1 each MISCELLANE ONCE PRN PRN Reason: Consult order Sodium Chloride (0.9 % Sodium Chloride Flush 3 Ml Syringe) 3 ml IVFLUSH QSHIFT [facility] Last Admin: 10/04/21 07:57 Dose: Not Given Documented by: Tamsulosin HCl (Tamsulosin Hcl 0.4 Mg Capsule) 0.4 mg PO DAILY [facility] Last Admin: 10/04/21 09:29 Dose: 0.4 mg Documented by: Topiramate (Topiramate 25 Mg Tablet) 25 mg PO DAILY [facility] Last Admin: 10/04/21 09:29 Dose: 25 mg Documented by: Home Medications Medication Instructions Recorded Confirmed Last Taken Type alprazolam 1 mg tablet 1 mg PO BID PRN 05/22/20 10/04/21 Unknown History cholecalciferol (vitamin D3) 50 50 mcg PO DAILY 05/22/20 10/04/21 Unknown History mcg (2,000 unit) capsule escitalopram oxalate 10 mg tablet 10 mg PO QAM 05/22/20 10/04/21 Unknown History fluticasone propionate 220 1 puff INHALATION BID g 05/22/20 10/04/21 Unknown History mcg/actuation HFA aerosol inhaler (Flovent HFA) gabapentin 300 mg capsule 600 mg PO TID 05/22/20 10/04/21 Unknown History ipratropium 20 mcg-albuterol 100 1 puff INHALATION .4 times daily g 05/22/20 10/04/21 Unknown History mcg/actuation mist for inhalation (Combivent Respimat) lisinopril 5 mg tablet 5 mg PO BID 05/22/20 10/04/21 Unknown History oxycodone 15 mg tablet 15 mg PO Q6H 05/22/20 10/04/21 Unknown History atorvastatin 20 mg tablet 20 mg PO DAILY 07/05/20 10/04/21 Unknown History melatonin 5 mg tablet 5 mg PO BEDTIME 07/05/20 10/04/21 Unknown History albuterol sulfate 1 vial INHALATION QID 07/19/20 10/04/21 Unknown History multivitamin (Daily-Petra) 1 tab PO DAILY 07/19/20 10/04/21 Unknown History bupropion HCl 150 mg tablet,12 hr 300 mg PO DAILY 08/29/21 10/04/21 Unknown History sustained-release divalproex 500 mg tablet,delayed 1,000 mg PO BID 08/29/21 10/04/21 Unknown History release fluoxetine 20 mg capsule 20 mg PO DAILY 08/29/21 10/04/21 Unknown History lipase 3,000-protease 1 cap PO DAILY 10/04/21 10/04/21 Unknown History 9,500-amylase 15,000 unit capsule, delayed rel (Creon) ondansetron HCl 4 mg tablet 4 mg PO BID PRN 10/04/21 10/04/21 Unknown History Physical Exam Vital Signs: Vital Signs: Last Vital Signs Temp 98.3 F 10/04/21 10:59 Pulse 58 10/04/21 10:59 Resp 19 10/04/21 10:59 BP 110/63 10/04/21 10:59 Pulse Ox 94 10/04/21 10:59 BMI result Body Mass Index 27.1 Neuro: Other: He was alert and awake with normal spontaneity of speech fluency comprehension and affect. Mild postural tremor was noted in hands. Leg reflexes were brisk 2 to 3+ with flexor plantars. There was no obvious focal weakness. Face was symmetrical. Visual hig[place] are full. Results Labs CBC & Chem 7: 10/04/21 07:01 10/04/21 07:01 Labs: Short CBC 10/03/21 10/04/21 Range/Units 16:56 07:01 WBC 6.2 7.3 (4.8-10.8) X10*3/uL Hgb 12.8 L 12.0 L (14.0-18.0) g/dl Hct 39.0 L 36.6 L (42.0-52.0) % Plt Count 238 205 (160-400) X10*3/uL BMP 10/03/21 10/03/21 10/04/21 16:56 23:47 07:01 Sodium 141 138 142 Potassium 3.9 3.6 4.3 Chloride 107 108 112 H Carbon Dioxide 24 24 25 BUN 11 10 9 Creatinine 1.04 0.96 0.87 Calcium 9.3 8.5 D 8.4 Cardiac Enzymes 10/03/21 Range/Units 20:07 Total Creatine Kinase 93 (38-174) U/L Liver Function 10/03/21 Range/Units 16:56 Total Bilirubin 0.7 (0.0-1.0) mg/dL AST 13 D (5-37) U/L ALT 22 (0-40) U/L Alkaline Phosphatase 75 (39-117) U/L Albumin 4.1 (3.5-5.0) g/dL Urine 10/03/21 Range/Units 20:48 Urine Color YELLOW Urine Appearance CLEAR Urine pH 6.0 (5.0-8.0) Ur Specific [place] >= 1.030 H (1.005-1.025) Urine Protein NEG (NEG-TRACE) MG/DL Urine Glucose (UA) NEG (NEG) MG/DL Noncontrast head CT did not reveal any significant abnormality. Assessment and Plan (1) Seizure: Status: Acute 55 years old man with complex underlying medical history including tremor specially when he would miss his doses presented with an episode of generalized shaking associated with unresponsiveness suggestive of a seizure. His examination revealed bilateral hyper reflexia of legs which 1 could see after generalized seizure. He was taking bupropion and multiple antiepileptics but for unrelated reasons. He also taking alprazolam relatively large dose. He he might have a generalized convulsion but it is difficult to say that he suffered from epilepsy as there were multiple are iatrogenic reasons for seizures. At this time my recommendation is to obtain an EEG to see if there is any underlying tendency for seizure disorder. He probably would not be able to get an MRI of brain because of the hardware but if that was possible an MRI of brain with and without contrast is recommended. If that could not be obtained, CT brain with contrast may suffice. Procedures Date of Service Date of Service: 10/04/21
--- NOTE | 2021-10-04 12:52 | PHA.MEDREC ---
Pharmacy Consult ? Medication Reconciliation Pharmacy has completed the medication reconciliation. Spoke with son Zain Lazcano who provided a list of medications. There are inconsistencies on the list- PM list states zantac 40 mg-cc61 white square however that drug is Famotidine based on drug ID and there is claim hx to support famotidine. Lists say hydromorphone 2 mg- M2 small white ambler however there is NO Prescription monitoring program fills for him ever is the last couple years. The pt does fill oxycodone 15 mg Q6H , though the drug id markings differ. The son did say his dad takes the oxycodone. The pt has both Fluoxetine 20 mg daily and lexapro 10 mg po daily listed. The fluoxetine has been filled consistently since 02/2021 til current. The lexapro history is from 12/2020-05/2021. Son states father has many doctors and these 2 meds were prescribed by different MDs and pt has been getting both. Son says the gabapentin 300 mg capsules is 2 capsules at bedtime.
--- NOTE | 2021-10-04 14:31 | P.CNUR_ITS ---
History of Present Illness Consult details Consult date: 10/04/21 Narrative: Zain is a male. Known to Urology for bladder incomplete emptying Background of bipolar disorder with long-term management that included anticholinergic side effects Prostate management includes tamsulosin and discussions have been had regarding clean intermittent catheterization including use of bethanechol Presents to emergency room with abdominal pain Imaging performed with question of epididymitis Nonspecific historian regarding pain or fever Examination of testicles shows epididymal thickening on right testicle but minimal inflammation Scrotal ultrasound essentially normal WBC 7.3 Review of Systems Constitutional: Constitutional: Reports as per HPI and Reports no additional constitutional complaints Cardiovascular: Cardiovascular: Reports as per HPI and Reports no additional cardiovascular complaints Respiratory: Respiratory: Reports as per HPI and Reports no additional respiratory complaints Gastrointestinal: Gastrointestinal: Reports as per HPI and Reports no additional gastrointestinal complaints Genitourinary: Genitourinary: Reports as per HPI Musculoskeletal: Musculoskeletal: Reports no additional musculoskeletal complaints and Reports as per HPI Neurologic: Reports system reviewed and no additional complaints, except as documented and Reports as per HPI PMFSH Past Medical History Medical History Abdominal wall bulge Abnormal loss of weight Alcohol abuse Arthritis Asthma Balanitis Chronic back pain Depression Elevated blood pressure reading in office with diagnosis of hypertension Enlarged prostate Epidermal cyst Esophageal dysphagia Esophageal spasm Gout H/O ulcer disease High cholesterol History of anxiety History of depression History of panic attacks History of peptic ulcer disease Hx of insomnia Hx of irritable bowel syndrome Hypertension Incisional pain Left flank pain Lipoma of back Low back pain Marijuana use Multiple lipomas Multiple lipomas Osteoarthritis Pain in unspecified toe(s) Painful orthopaedic hardware Short frenulum of penis Slow urinary stream Thalamic pain syndrome Trochanteric bursitis, left hip Urinary retention Family History Family History Family/Other Cancer Diabetes AIDS Brother Diabetes Myocardial infarction Father Enlarged prostate Mother Diabetes Asthma Surgical History Surgical History H/O breast surgery H/O neck surgery History of bunionectomy History of esophagogastroduodenoscopy (EGD) Hx of arthroscopy of left knee Hx of colonoscopy S/P excision of lipoma Social History Social History Are you a primary wound care physician to a significant other at home: No Do you presently have visiting nurse or other home services: No Alcohol intake: never Patient Tobacco Use Status: Current everyday Tobacco user Cigarettes Per Day: 6 Smoked in Last 30 Days: Yes Use of substances other than those prescribed or required for medical reasons: No Substance Use Type: Marijuana Substance Use Frequency: Daily Advance Directives: No Meds Allergies Allergy/AdvReac Type Severity Reaction Status Date / Time cat dander [CATS] Allergy Unknown UNKNOWN Verified 08/29/21 11:44 dog dander [DOGS] Allergy Unknown UNKNOWN Verified 08/29/21 11:44 pollen extracts [POLLEN] Allergy Unknown UNKNOWN Verified 08/29/21 11:44 tree and shrub pollen Allergy sneeze Verified 08/29/21 11:44 Active Medications: Current Medications Acetaminophen (Acetaminophen 325 Mg Tablet) 650 mg PO Q6H PRN PRN Reason: Pain, Mild (Pain Scale 1-3) Albuterol Sulfate (Albuterol Sulfate (0.083%) 2.5 Mg/3 Ml Vial.Neb) 2.5 mg INHALE RQID [facility] Last Admin: 10/04/21 11:39 Dose: Not Given Documented by: Alprazolam (Alprazolam 0.5 Mg Tablet) 1 mg PO BID PRN PRN Reason: Anxiety Atorvastatin Calcium (Atorvastatin Calcium 20 Mg Tablet) 20 mg PO DAILY [facility] Last Admin: 10/04/21 09:28 Dose: 20 mg Documented by: Benzonatate (Benzonatate 100 Mg Capsule) 100 mg PO TID PRN PRN Reason: Cough Bethanechol Chloride (Bethanechol Chloride 25 Mg Tablet) 50 mg PO BID [facility] Last Admin: 10/04/21 11:08 Dose: 50 mg Documented by: Bupropion HCl (Bupropion Hcl Xl 300 Mg Tab.Er.24h) 300 mg PO DAILY [facility] Last Admin: 10/04/21 11:08 Dose: 300 mg Documented by: Divalproex Sodium (Divalproex Sodium 500 Mg Tablet.Dr) 1,000 mg PO BID [facility] Last Admin: 10/04/21 09:28 Dose: 1,000 mg Documented by: Famotidine (Famotidine 20 Mg Tablet) 40 mg PO BEDTIME [facility] Last Admin: 10/04/21 09:29 Dose: 40 mg Documented by: Fluoxetine HCl (Fluoxetine Hcl 20 Mg Capsule) 20 mg PO DAILY [facility] Fluticasone Propionate (Fluticasone Propionate 250 Mcg Blst.W.Dev) 1 puff INHALE RBID [facility] Gabapentin (Gabapentin 300 Mg Capsule) 600 mg PO TID [facility] Last Admin: 10/04/21 09:29 Dose: 600 mg Documented by: Heparin Sodium (Porcine) (Heparin Sodium,Porcine 5,000 Unit/Ml Vial) 5,000 unit SUBCUT Q8H [facility] Last Admin: 10/04/21 07:57 Dose: 5,000 unit Documented by: Dextrose/Sodium Chloride (D51/2ns) 1,000 mls @ 100 mls/hr IVCONT .Q10H [facility] Last Admin: 10/04/21 00:20 Dose: 100 mls/hr Documented by: Lorazepam (Lorazepam 2 Mg/Ml Vial) 1 mg IVPUSH Q2H PRN PRN Reason: Seizures Melatonin (Melatonin 3 Mg Tablet) 6 mg PO BEDTIME PRN PRN Reason: Insomnia Melatonin (Melatonin 3 Mg Tablet) 6 mg PO BEDTIME [facility] Multivitamins/Vitamin C (Multivitamin Tablet) 1 tab PO DAILY [facility] Last Admin: 10/04/21 09:28 Dose: 1 tab Documented by: Nicotine Polacrilex (Nicotine Polacrilex 2 Mg Gum) 2 mg BUCCAL Q2H PRN PRN Reason: Nicotine Cravings Non-Formulary Medication (Hieedk-Goahxjai-Wyzawps [Creon]) 1 cap PO DAILY [facility] Omeprazole (Omeprazole 40 Mg Capsule.Dr) 40 mg PO DAILY@0630 [facility] Oxycodone HCl (Oxycodone Hcl Immed Release 15 Mg Tablet) 15 mg PO Q6H [facility] Last Admin: 10/04/21 09:30 Dose: 15 mg Documented by: Pharmacy Consult (Consult Rx Perform Med Rec) 1 each MISCELLANE ONCE PRN PRN Reason: Consult order Sodium Chloride (0.9 % Sodium Chloride Flush 3 Ml Syringe) 3 ml IVFLUSH QSHIFT [facility] Last Admin: 10/04/21 07:57 Dose: Not Given Documented by: Tamsulosin HCl (Tamsulosin Hcl 0.4 Mg Capsule) 0.4 mg PO DAILY [facility] Last Admin: 10/04/21 09:29 Dose: 0.4 mg Documented by: Topiramate (Topiramate 25 Mg Tablet) 25 mg PO DAILY [facility] Last Admin: 10/04/21 09:29 Dose: 25 mg Documented by: Home Medications Medication Instructions Recorded Confirmed Last Taken Type alprazolam 1 mg tablet 1 mg PO TID PRN 05/22/20 10/04/21 Unknown History cholecalciferol (vitamin D3) 50 50 mcg PO DAILY 05/22/20 10/04/21 Unknown History mcg (2,000 unit) capsule fluticasone propionate 220 1 puff INHALATION BID g 05/22/20 10/04/21 Unknown History mcg/actuation HFA aerosol inhaler (Flovent HFA) gabapentin 300 mg capsule 600 mg PO BEDTIME 05/22/20 10/04/21 Unknown History ipratropium 20 mcg-albuterol 100 1 puff INHALATION .4 times daily g 05/22/20 10/04/21 Unknown History mcg/actuation mist for inhalation (Combivent Respimat) lisinopril 5 mg tablet 5 mg PO BID 05/22/20 10/04/21 Unknown History oxycodone 15 mg tablet 15 mg PO Q6H 05/22/20 10/04/21 Unknown History atorvastatin 20 mg tablet 20 mg PO DAILY 07/05/20 10/04/21 Unknown History melatonin 5 mg tablet 5 mg PO BEDTIME 07/05/20 10/04/21 Unknown History albuterol sulfate 1 vial INHALATION QID 07/19/20 10/04/21 Unknown History multivitamin (Daily-Petra) 1 tab PO DAILY 07/19/20 10/04/21 Unknown History bupropion HCl 150 mg tablet,12 hr 150 mg PO BID 08/29/21 10/04/21 Unknown History sustained-release divalproex 500 mg tablet,delayed 1,000 mg PO BEDTIME 08/29/21 10/04/21 Unknown History release fluoxetine 20 mg capsule 20 mg PO DAILY 08/29/21 10/04/21 Unknown History dicyclomine 10 mg capsule 1 cap PO QID PRN 10/04/21 10/04/21 Unknown History divalproex 500 mg tablet,delayed 500 mg PO DAILY 10/04/21 10/04/21 Unknown History release (Depakote) lipase 3,000-protease 1 cap PO DAILY 10/04/21 10/04/21 Unknown History 9,500-amylase 15,000 unit capsule, delayed rel (Creon) ondansetron HCl 4 mg tablet 4 mg PO BID PRN 10/04/21 10/04/21 Unknown History Physical Exam Vital Signs: Vital Signs: Last Vital Signs Temp 98.3 F 10/04/21 10:59 Pulse 58 10/04/21 10:59 Resp 19 10/04/21 10:59 BP 110/63 10/04/21 10:59 Pulse Ox 94 10/04/21 10:59 BMI result Body Mass Index 27.1 Const: General: cooperative, healthy appearing, comfortable and no acute distress Orientation/consciousness: patient oriented x3 HEENT: Face and sinus: Yes normal facial exam Mouth: moist mucous membranes Neck: Neck: Yes normal visual inspection, Yes full ROM and Yes trachea midline Chest: Chest palpation & inspection: normal inspection of the chest Resp: Effort & Inspection: normal respiratory effort, able to speak in complete sentences and no respiratory distress GI: Inspection: Yes normal to inspection Back/Spine/Pelvis: Cervical Spine: normal cervical lordosis Thoracic/Lumbar Spine: thoracic and lumbar spine normal to inspection Skin: General skin exam: no rashes or lesions noted Neuro: General: patient oriented x3, tone normal and moves all extremities Extrem: General: Yes normal to inspection and Yes capillary refill normal Results Labs Result diagrams: 10/04/21 07:01 10/04/21 07:01 Labs: Abnormal lab results 10/03/21 10/03/21 10/03/21 Range/Units 16:56 16:56 20:48 RBC 4.09 L (4.60-5.80) X10*6/uL Hgb 12.8 L (14.0-18.0) g/dl Hct 39.0 L (42.0-52.0) % MPV 9.2 L (9.4-12.4) fL Neut % (Auto) (45-73) % Lymph % (Auto) (20-40) % Eos % (Auto) 4.4 H (0-4) % Lymph # (Auto) (1.2-4.9) X10*3/uL Chloride (96-108) mmol/L Anion Gap (12-20) Random Glucose 129 H (60-115) mg/dL Ur Specific [place] >= 1.030 H (1.005-1.025) 10/03/21 10/04/21 10/04/21 Range/Units 23:47 07:01 07:01 RBC 3.78 L (4.60-5.80) X10*6/uL Hgb 12.0 L (14.0-18.0) g/dl Hct 36.6 L (42.0-52.0) % MPV (9.4-12.4) fL Neut % (Auto) 75.4 H (45-73) % Lymph % (Auto) 13.3 L (20-40) % Eos % (Auto) (0-4) % Lymph # (Auto) 1.0 L (1.2-4.9) X10*3/uL Chloride 112 H (96-108) mmol/L Anion Gap 10 L 9 L (12-20) Random Glucose 116 H 117 H (60-115) mg/dL Ur Specific [place] (1.005-1.025) Short CBC 10/03/21 10/04/21 Range/Units 16:56 07:01 WBC 6.2 7.3 (4.8-10.8) X10*3/uL Hgb 12.8 L 12.0 L (14.0-18.0) g/dl Hct 39.0 L 36.6 L (42.0-52.0) % Plt Count 238 205 (160-400) X10*3/uL BMP 10/03/21 10/03/21 10/04/21 16:56 23:47 07:01 Sodium 141 138 142 Potassium 3.9 3.6 4.3 Chloride 107 108 112 H Carbon Dioxide 24 24 25 BUN 11 10 9 Creatinine 1.04 0.96 0.87 Calcium 9.3 8.5 D 8.4 Cardiac Enzymes 10/03/21 Range/Units 20:07 Total Creatine Kinase 93 (38-174) U/L Liver Function 10/03/21 Range/Units 16:56 Total Bilirubin 0.7 (0.0-1.0) mg/dL AST 13 D (5-37) U/L ALT 22 (0-40) U/L Alkaline Phosphatase 75 (39-117) U/L Albumin 4.1 (3.5-5.0) g/dL Urine 10/03/21 Range/Units 20:48 Urine Color YELLOW Urine Appearance CLEAR Urine pH 6.0 (5.0-8.0) Ur Specific [place] >= 1.030 H (1.005-1.025) Urine Protein NEG (NEG-TRACE) MG/DL Urine Glucose (UA) NEG (NEG) MG/DL All other labs normal. Assessment and Plan (1) Pain in both testicles: Status: Acute Plan No acute urologic condition Procedures Date of Service Date of Service: 10/04/21
[2021-10-04] MEDS: Omeprazole 40 MG CAPSULE.DR PO (14:45)
[2021-10-04] MEDS: FLUoxetine HCl 20 MG CAPSULE PO (14:45)
[2021-10-04] MEDS: Albuterol Sulfate (0.083%) 2.5 MG/3 ML VIAL.NEB INHALE (15:09)
[2021-10-04 15:10] VITALS: PULSE 56; RESP 18; O2SAT 57
--- NOTE | 2021-10-04 15:40 | HO.PM.IMPN ---
Subjective Subjective Date of Service: 10/05/21 Interval History: complaining jaw pain, frontal headache, no fevers,no chills, no further episode of shakiness since admission, initially patient complained of occipital headache later changed to left-sided jaw pain with radiation towards forehead Review of Systems Review of Systems: Yes all other systems are reviewed and are negative Physical Exam Vital Signs: Vital Signs: Last Vital Signs Temp 98.3 F 10/04/21 10:59 Pulse 56 10/04/21 15:10 Resp 18 10/04/21 15:10 BP 110/63 10/04/21 10:59 Pulse Ox 94 10/04/21 10:59 BMI result Body Mass Index 27.1 Const: Other: General awake alert x3, no acute distress. HEENT pupils equal round reactive to light and accommodation,anicteric sclera, no nystagmus Neck supple no JVD. CVS regular rate rhythm, Respiratory lungs clear to auscultation, no respiratory distress, no wheeze, no rhonchi. Gastrointestinal abdomen soft, nontender, bowel sounds audible, no no guarding , no rigidity. Extremities no edema. Neuro nonfocal,moving all 4 extremity, speech clear. Skin no rash psych appropriate affect musculoskeletal no deformity Objective Data Active Medications Acetaminophen (Acetaminophen 325 Mg Tablet) 650 mg PO Q6H PRN PRN Reason: Pain, Mild (Pain Scale 1-3) Albuterol Sulfate (Albuterol Sulfate (0.083%) 2.5 Mg/3 Ml Vial.Neb) 2.5 mg INHALE RQID [facility] Last Admin: 10/04/21 15:09 Dose: 2.5 mg Documented by: CARTER Alprazolam (Alprazolam 0.5 Mg Tablet) 1 mg PO BID PRN PRN Reason: Anxiety Atorvastatin Calcium (Atorvastatin Calcium 20 Mg Tablet) 20 mg PO DAILY [facility] Last Admin: 10/04/21 09:28 Dose: 20 mg Documented by: CHING Benzonatate (Benzonatate 100 Mg Capsule) 100 mg PO TID PRN PRN Reason: Cough Bethanechol Chloride (Bethanechol Chloride 25 Mg Tablet) 50 mg PO BID [facility] Last Admin: 10/04/21 11:08 Dose: 50 mg Documented by: CHING Bupropion HCl (Bupropion Hcl Xl 300 Mg Tab.Er.24h) 300 mg PO DAILY [facility] Last Admin: 10/04/21 11:08 Dose: 300 mg Documented by: CHING Divalproex Sodium (Divalproex Sodium 500 Mg Tablet.) 1,000 mg PO BID [facility] Last Admin: 10/04/21 09:28 Dose: 1,000 mg Documented by: CHING Famotidine (Famotidine 20 Mg Tablet) 40 mg PO BEDTIME [facility] Last Admin: 10/04/21 09:29 Dose: 40 mg Documented by: CHING Fluoxetine HCl (Fluoxetine Hcl 20 Mg Capsule) 20 mg PO DAILY [facility] Last Admin: 10/04/21 14:45 Dose: 20 mg Documented by: CHING Fluticasone Propionate (Fluticasone Propionate 250 Mcg Blst.W.Dev) 1 puff INHALE RBID [facility] Gabapentin (Gabapentin 300 Mg Capsule) 600 mg PO BEDTIME [facility] Heparin Sodium (Porcine) (Heparin Sodium,Porcine 5,000 Unit/Ml Vial) 5,000 unit SUBCUT Q8H [facility] Last Admin: 10/04/21 14:47 Dose: 5,000 unit Documented by: CHING Dextrose/Sodium Chloride (D51/2ns) 1,000 mls @ 100 mls/hr IVCONT .Q10H [facility] Last Admin: 10/04/21 14:45 Dose: 100 mls/hr Documented by: CHING Lorazepam (Lorazepam 2 Mg/Ml Vial) 1 mg IVPUSH Q2H PRN PRN Reason: Seizures Melatonin (Melatonin 3 Mg Tablet) 6 mg PO BEDTIME PRN PRN Reason: Insomnia Melatonin (Melatonin 3 Mg Tablet) 6 mg PO BEDTIME [facility] Multivitamins/Vitamin C (Multivitamin Tablet) 1 tab PO DAILY [facility] Last Admin: 10/04/21 09:28 Dose: 1 tab Documented by: CHING Nicotine Polacrilex (Nicotine Polacrilex 2 Mg Gum) 2 mg BUCCAL Q2H PRN PRN Reason: Nicotine Cravings Non-Formulary Medication (Bnpnrg-Rqznllpc-Cxhfzjp [Creon]) 1 cap PO DAILY [facility] Omeprazole (Omeprazole 40 Mg Capsule.) 40 mg PO DAILY@0630 [facility] Last Admin: 10/04/21 14:45 Dose: 40 mg Documented by: CHING Oxycodone HCl (Oxycodone Hcl Immed Release 15 Mg Tablet) 15 mg PO Q6H [facility] Last Admin: 10/04/21 09:30 Dose: 15 mg Documented by: CHING Pharmacy Consult (Consult Rx Perform Med Rec) 1 each MISCELLANE ONCE PRN PRN Reason: Consult order Sodium Chloride (0.9 % Sodium Chloride Flush 3 Ml Syringe) 3 ml IVFLUSH QSHIFT [facility] Last Admin: 10/04/21 14:47 Dose: Not Given Documented by: CHING Non-Admin Reason: Med Not Available Tamsulosin HCl (Tamsulosin Hcl 0.4 Mg Capsule) 0.4 mg PO DAILY [facility] Last Admin: 10/04/21 09:29 Dose: 0.4 mg Documented by: CHING Topiramate (Topiramate 25 Mg Tablet) 25 mg PO DAILY [facility] Last Admin: 10/04/21 09:29 Dose: 25 mg Documented by: CHING Labs CBC & Chem 7: 10/04/21 07:01 10/04/21 07:01 Labs: Laboratory Results - last 24 hr 10/03/21 10/03/21 10/03/21 16:56 16:56 16:56 MCV 95.4 MCH 31.3 MCHC 32.8 RDW 14.5 Plt Count 238 MPV 9.2 L Immature Gran % (Auto) 0.2 Neut % (Auto) 68.6 Lymph % (Auto) 20.1 [place] % (Auto) 6.5 Eos % (Auto) 4.4 H Baso % (Auto) 0.2 Lymph # (Auto) 1.2 [place] # (Auto) 0.4 Eos # (Auto) 0.3 Baso # (Auto) 0.0 Abs Immat Gran (auto) 0.01 Absolute Neuts (auto) 4.2 Absolute Nucleated RBC 0.000 Nucleated RBC % (auto) 0.0 ESR D-Dimer High Sensitivty Anion Gap 14 Estim Creat Clear Calc 76.7 Estimated GFR > 60 Random Glucose 129 H Calcium 9.3 Magnesium Total Bilirubin 0.7 AST 13 D ALT 22 Alkaline Phosphatase 75 Total Creatine Kinase Troponin I High Sens C-Reactive Protein Total Protein 6.6 Albumin 4.1 Lipase Urine Color Urine Appearance Urine pH Ur Specific Ruth Urine Protein Urine Glucose (UA) Urine Ketones Urine Blood Urine Nitrite Ur Leukocyte Esterase COVID-19 ([facility]) Negative COVID-19 Clin Com See Note Influenza Type A (KAT[facility]N) Influenza Type B ([facility]N) Influenza A & B Note 10/03/21 10/03/21 10/03/21 19:42 20:07 20:07 MCV MCH MCHC RDW Plt Count MPV Immature Gran % (Auto) Neut % (Auto) Lymph % (Auto) [place] % (Auto) Eos % (Auto) Baso % (Auto) Lymph # (Auto) [place] # (Auto) Eos # (Auto) Baso # (Auto) Abs Immat Gran (auto) Absolute Neuts (auto) Absolute Nucleated RBC Nucleated RBC % (auto) ESR 8 D-Dimer High Sensitivty Anion Gap Estim Creat Clear Calc Estimated GFR Random Glucose Calcium Magnesium 2.1 Total Bilirubin AST ALT Alkaline Phosphatase Total Creatine Kinase 93 Troponin I High Sens C-Reactive Protein Total Protein Albumin Lipase Urine Color Urine Appearance Urine pH Ur Specific Ruth Urine Protein Urine Glucose (UA) Urine Ketones Urine Blood Urine Nitrite Ur Leukocyte Esterase COVID-19 ([facility]) COVID-19 Clin Com Influenza Type A ([facility]N) Negative Influenza Type B ([facility]N) Negative Influenza A & B Note See Note 10/03/21 10/03/21 10/03/21 20:07 20:07 20:07 MCV MCH MCHC RDW Plt Count MPV Immature Gran % (Auto) Neut % (Auto) Lymph % (Auto) [place] % (Auto) Eos % (Auto) Baso % (Auto) Lymph # (Auto) [place] # (Auto) Eos # (Auto) Baso # (Auto) Abs Immat Gran (auto) Absolute Neuts (auto) Absolute Nucleated RBC Nucleated RBC % (auto) ESR D-Dimer High Sensitivty < 150 Anion Gap Estim Creat Clear Calc Estimated GFR Random Glucose Calcium Magnesium Total Bilirubin AST ALT Alkaline Phosphatase Total Creatine Kinase Troponin I High Sens < 3.5 C-Reactive Protein 0.40 Total Protein Albumin Lipase 16 Urine Color Urine Appearance Urine pH Ur Specific Ruth Urine Protein Urine Glucose (UA) Urine Ketones Urine Blood Urine Nitrite Ur Leukocyte Esterase COVID-19 ([facility]) COVID-19 Clin Com Influenza Type A (KATLYN) Influenza Type B ([facility]N) Influenza A & B Note 10/03/21 10/03/21 10/04/21 20:48 23:47 07:01 MCV 96.8 MCH 31.7 MCHC 32.8 RDW 14.5 Plt Count 205 MPV 9.7 Immature Gran % (Auto) 0.3 Neut % (Auto) 75.4 H Lymph % (Auto) 13.3 L [place] % (Auto) 7.8 Eos % (Auto) 3.1 Baso % (Auto) 0.1 Lymph # (Auto) 1.0 L [place] # (Auto) 0.6 Eos # (Auto) 0.2 Baso # (Auto) 0.0 Abs Immat Gran (auto) 0.02 Absolute Neuts (auto) 5.5 Absolute Nucleated RBC 0.000 Nucleated RBC % (auto) 0.0 ESR D-Dimer High Sensitivty Anion Gap 10 L Estim Creat Clear Calc 83.1 Estimated GFR > 60 Random Glucose 116 H Calcium 8.5 D Magnesium Total Bilirubin AST ALT Alkaline Phosphatase Total Creatine Kinase Troponin I High Sens C-Reactive Protein Total Protein Albumin Lipase Urine Color YELLOW Urine Appearance CLEAR Urine pH 6.0 Ur Specific Ruth >= 1.030 H Urine Protein NEG Urine Glucose (UA) NEG Urine Ketones NEG Urine Blood NEG Urine Nitrite NEG Ur Leukocyte Esterase NEG COVID-19 ([facility]) COVID-19 Clin Com Influenza Type A (KATLYN) Influenza Type B ([facility]N) Influenza A & B Note 10/04/21 07:01 MCV MCH MCHC RDW Plt Count MPV Immature Gran % (Auto) Neut % (Auto) Lymph % (Auto) [place] % (Auto) Eos % (Auto) Baso % (Auto) Lymph # (Auto) [place] # (Auto) Eos # (Auto) Baso # (Auto) Abs Immat Gran (auto) Absolute Neuts (auto) Absolute Nucleated RBC Nucleated RBC % (auto) ESR D-Dimer High Sensitivty Anion Gap 9 L Estim Creat Clear Calc 91.8 Estimated GFR > 60 Random Glucose 117 H Calcium 8.4 Magnesium Total Bilirubin AST ALT Alkaline Phosphatase Total Creatine Kinase Troponin I High Sens C-Reactive Protein Total Protein Albumin Lipase Urine Color Urine Appearance Urine pH Ur Specific Ruth Urine Protein Urine Glucose (UA) Urine Ketones Urine Blood Urine Nitrite Ur Leukocyte Esterase COVID-19 ([facility]) COVID-19 Clin Com Influenza Type A (KAT[facility]N) Influenza Type B ([facility]N) Influenza A & B Note Assessment and Plan (1) Headache: Status: Acute Plan 55M with a past medical history of hypertension, hyperlipidemia, asthma, BPH, anxiety, depression, chronic low back pain, cannabis use, osteoarthritis, thalamic pain syndrome, history of urinary retention, history of peptic ulcer disease, history of panic attacks, bipolar disorder, history of dysphagia; presented to the hospital today with a chief complaint of headache/Seizures Generalized shakiness noted to have 2 episodes of shakiness in ER without bowel bladder incontinence no tongue biting soon after episode patient was awake alert had 1 similar episode in the car witnessed by son as per since symptoms lasted for 5-8 minutes after episode patient was warm but had no fever ? seen by Neurology they recommend EEG and imaging study MRI brain with and without contrast if no contraindication otherwise will obtain CT head with and without contrast initial CT head without contrast showed no acute findings, no history of prior seizures patient on multiple medications including Depakote, Topamax and Xanax for mood disorder, question seizure due to benzo withdrawal continue Ativan p.r.n. for seizure and continue seizure precaution DC IV fluid Headaches:? Patient reported photophobia.? Patient has prior history of migraine headaches. CT head unremarkable normal examination, no nystagmus normal ear examination normal facial examination will treat with analgesics and follow clinical course?, no fevers, no meningeal signs. DC IV Dilaudid, continue as needed oxycodone and Tylenol Epididimytis:?s/p im Ceftriaxone, afebrile, normal WBC count, ID consult.? Ultrasound showed no evidence of testicular torsion. For hydrocele seen by urology, they felt patient has no acute urological condition. Liver lesion:? likely hemangioma outpatient follow-up with PCP Hx HTN: BP on normal side. Hold home antihypertensives for now. Anxiety depression/ bipolar disorder/ panic attack continue home medication as per son being followed by multiple providers is on Lexapro and fluoxetine, will DC Lexapro and continue other home medication history of urinary retention stimulator in place, continue bethanechol and Flomax DVT prophylaxis: [facility] Code status:? Full code Quality Stroke Does the patient have a stroke diagnosis?: No VTE Prior VTE?: No VTE Risk Level:: Medical - moderate - high VTE Device Contraindication: Treatment Not Indicated VTE Drug Contraindication: N/A - Med Ordered
[2021-10-04] MEDS: ALPRAZolam 0.5 MG TABLET 1 MG PO (15:58)
--- NOTE | 2021-10-04 15:59 | PC.NURSE ---
still c/o head and neck pain.
--- NOTE | 2021-10-04 19:14 | PM.DS ---
DS: Providers Provider Date of Service: 10/04/21 Date of admission: 10/03/21 23:42 Primary care physician: Pati Land MD Consults: 10/04/21 00:41 Consult to Neurology Routine Consulting Provider: [facility] Reason for consultation: seizure DS: Diagnosis Discharge Diagnosis (1) Headache: Status: Acute DS: Summary Hospital Course Hospital Course: 55M with a past medical history of hypertension, hyperlipidemia, asthma, BPH, anxiety, depression, chronic low back pain, cannabis use, osteoarthritis, thalamic pain syndrome, history of urinary retention, history of peptic ulcer disease, history of panic attacks, bipolar disorder, history of dysphagia; presented to the hospital today with a chief complaint of headache.? Patient is a poor historian, also patient received Ativan in the ER for seizure episode making him drowsy. ? Most of the history obtained from the ER records, family at bedside.? Reportedly patient has been having whole-body shaking episodes; yesterday he had 1 episode in the car; followed by patient was noted to be lethargic; today patient was complaining of the headache hence brought him to the hospital for further evaluation.? At the time of my interview patient is drowsy, follows simple commands; denies any abdominal pain, nausea vomiting, chest pain or palpitations.? Denies any shortness of breath.? Denies any urinary symptoms.? Patient reported that he had headache but it is improving.? ER course: pt noted to have Wheezing-> nebs given LLQ pain: CT abd negative. Headaches: photophobia+; No meningeal signs, CT head and CT c spine- negative, no temporal tnderness; ESR negative. VNA- not Lower BP than his normal BP; PCP said go home. ESR, CRP, Labs benign; ddimer negative. Scrotal pain: USG negative for torsion; possible epididymitis-> given ceftriaxone. 2 episodes of GTC seizures in ER; postictal lethargy-> Ativan 1mg IVx3. non focal exam.?given 2L IV fluids.? Admitted for further management History of presenting illness 55M with a past medical history of hypertension, hyperlipidemia, asthma, BPH, anxiety, depression, chronic low back pain, cannabis use, osteoarthritis, thalamic pain syndrome, history of urinary retention, history of peptic ulcer disease, history of panic attacks, bipolar disorder, history of dysphagia; presented to the hospital today with a chief complaint of headache/Seizures. Generalized shakiness? noted to have 2 episodes of shakiness in ER without bowel bladder incontinence, no tongue biting soon after episode patient was awake, alert,had 1 similar episode in the car witnessed by son day before admission, as per son symptoms lasted for 5-8 minutes after episode patient was warm but had no fever, patient with no prior history of seizures, CT head without contrast showed no acute abnormality, patient on multiple medications including Depakote, Topamax and Xanax for mood disorder question seizure due to benzo withdrawal. ? patient seen by Neurology they recommend EEG and imaging study MRI brain with and without contrast if no contraindication with urinary stimulator, MRI and EEG was ordered however patient decided to leave hospital against medical advice since he was not satisfied with his care because medications were not administered as he was use to at home, recommended patient return to hospital with recurrent episode of shakiness or seizures. Headaches:? reported photophobia,with prior history of migraine headaches, CT head unremarkable normal examination, no nystagmus normal ear examination , normal facial examination, no fevers, no meningeal signs patient treated with analgesics. Epididimytis:?s/p im Ceftriaxone in ED, afebrile, normal WBC count, Ultrasound showed no evidence of testicular torsion, seen by urology, they felt patient has no acute urological condition. Liver lesion:? likely hemangioma outpatient follow-up with PCP Hx HTN: BP on normal side. Anxiety depression/ bipolar disorder/ panic attack continue home medication as? per son being followed by multiple providers is on Lexapro and fluoxetine, will DC Lexapro and continue other home medication history of urinary retention stimulator in place, continue bethanechol and Flomax Time Spent with Patient Time attestation: Total time spent providing and/or coordinating discharge services: Discharge coordination time: Greater than 30 minutes Quality: Safe Use of Opioids Does Pt have an Active Cancer Diagnosis on the Problem List?: No Quality: Stroke Does the patient have a stroke diagnosis?: No Physical Exam Vital Signs: Vital Signs: Last Vital Signs Temp 98.3 F 10/04/21 10:59 Pulse 56 10/04/21 15:10 Resp 18 10/04/21 15:10 BP 110/63 10/04/21 10:59 Pulse Ox 94 10/04/21 10:59 BMI result Body Mass Index 27.1 Const: Other: General? awake alert x3, no acute distress.? HEENT pupils equal round reactive to light and accommodation,anicteric sclera, no nystagmus Neck? supple no JVD. CVS? regular rate rhythm, Respiratory lungs clear to auscultation, no respiratory distress, no wheeze, no rhonchi. Gastrointestinal abdomen soft, nontender, bowel sounds audible, no guarding , no rigidity. Extremities no edema. Neuro nonfocal,moving all 4 extremity, speech clear. Skin no rash psych appropriate affect musculoskeletal no deformity Discharge Plan Discharge Patient Disposition: Left Against Medical Advice Discharge Diagnosis: generalize shakiness rule out seizure headache liver lesion anxiety depression Referrals: Pati Land MD [Primary Care Provider] - 1 Week Discharge Medications: No Action Dexilant 60 mg capsule,biphase delayed releas 60 mg PO DAILY Qty: 90 1RF tamsulosin 0.4 mg capsule 0.4 mg PO DAILY 30 Days Qty: 30 1RF topiramate 25 mg tablet 25 mg PO DAILY Qty: 90 0RF famotidine 40 mg tablet 40 mg PO BEDTIME Qty: 90 2RF multivitamin [Daily-Petra] Tablet 1 tab PO DAILY 0RF albuterol sulfate 2.5 mg /3 mL (0.083 %) solution for nebulization 1 vial inhalation QID 0RF ondansetron HCl 4 mg tablet 4 mg PO BID PRN (Reason: Nausea) 0RF Creon 3,000-9,500- 15,000 unit capsule,delayed release(DR/EC) 1 cap PO DAILY 0RF divalproex [Depakote] 500 mg tablet,delayed release (DR/EC) 500 mg PO DAILY 0RF dicyclomine 10 mg capsule 1 cap PO QID PRN (Reason: Gastrointestinal Spasms Or Cramping) 0RF melatonin 5 mg tablet 5 mg PO BEDTIME 0RF atorvastatin 20 mg tablet 20 mg PO DAILY 0RF oxycodone 15 mg tablet 15 mg PO Q6H 0RF alprazolam 1 mg tablet 1 mg PO TID PRN (Reason: Anxiety) 0RF lisinopril 5 mg tablet 5 mg PO BID 0RF cholecalciferol (vitamin D3) 50 mcg (2,000 unit) capsule 50 mcg PO DAILY 0RF gabapentin 300 mg capsule 600 mg PO BEDTIME 0RF Flovent HFA 220 mcg/actuation HFA aerosol inhaler 1 puff inhalation BID 0RF Combivent Respimat 20-100 mcg/actuation mist 1 puff inhalation .4 times daily 0RF fluoxetine 20 mg capsule 20 mg PO DAILY 0RF bupropion HCl 150 mg tablet sustained-release 12 hr 150 mg PO BID 0RF divalproex 500 mg tablet,delayed release (DR/EC) 1,000 mg PO BEDTIME 0RF bethanechol chloride 50 mg tablet 50 mg PO BID 90 Days Qty: 180 1RF Discharge Orders: Discharge Order (Routine); Ordered 10/05/21 Ordered By: Francine Aponte Stand Alone Forms: Against Medical Advice Care Plan Goals: return to check with recurrent symptoms shakiness outpatient follow-up with PCP continue home medications and follow-up with PCP Health Concerns: polypharmacy follow-up with PCP Plan of Treatment: follow-up with primary care physician Assessment: per discharge summary Discharge Date/Time: 10/04/21 19:16
[2021-10-10 13:57] LABS: Chlamydia Pneumoniae IgA <1:16 titer (<1:16); Chlamydia Pneumoniae IgG <1:64 titer (<1:64); Chlamydia Pneumoniae IgM <1:10 titer (<1:10); Chlamydia Psittaci IgA <1:16 titer (<1:16); Chlamydia Psittaci IgG <1:64 titer (<1:64); Chlamydia Psittaci IgM <1:10 titer (<1:10); Chlamydia Trachomatis IgA 1:16 titer (<1:16); Chlamydia Trachomatis IgG <1:64 titer (<1:64); Chlamydia Trachomatis IgM <1:10 titer (<1:10)
== END 2021-10-04 19:16 | disposition left against medical advice (07) | DRG 101 ==
LOC: HO.ED 23:47 → HO.EDOVER 10-04 00:02
PROVIDERS: Physician Assistant; Admitting Provider Hospitalist; Emergency Provider Emergency Medicine; PCP Internal Medicine; Visit Provider Hospitalist
DX: R56.9 Unspecified convulsions (principal); K21.9 Gastro-esophageal reflux disease without esophagitis; F17.210 Nicotine dependence, cigarettes, uncomplicated; D63.1 Anemia in chronic kidney disease; E78.5 Hyperlipidemia, unspecified; J45.909 Unspecified asthma, uncomplicated; F41.9 Anxiety disorder, unspecified; G89.29 Other chronic pain; M54.9 Dorsalgia, unspecified; G43.909 Migraine, unspecified, not intractable, without status migrainosus; F31.9 Bipolar disorder, unspecified; F41.0 Panic disorder [episodic paroxysmal anxiety]; N40.1 Benign prostatic hyperplasia with lower urinary tract symptoms; R39.14 Feeling of incomplete bladder emptying; D18.03 Hemangioma of intra-abdominal structures; N45.1 Epididymitis; Z96.82 Presence of neurostimulator; Z20.822 Contact with and (suspected) exposure to COVID-19; Z71.6 Tobacco abuse counseling; Z79.51 Long term (current) use of inhaled steroids; Z79.891 Long term (current) use of opiate analgesic; Z79.899 Other long term (current) drug therapy
CPT/HCPCS: 36415; 70450; 71260; 72125; 74177; 80048; 80053; 81003; 82550; 83690; 83735; 84484; 85025; 85379; 85652; 86140; 86631; 86632; 87502; 87635; 93005; 93975; 94640; 94644; 95816; 96361; 96372; 96374; 99285; J0696; J1170; J2060; Q9967

== ENCOUNTER 2021-10-08 19:18 | Observation (INO) | payer OTHER, SELFPAY ==
--- NOTE | ~2021-10-08 | MR_ITS ---
MR BRAIN WITHOUT AND WITH CONTRAST CLINICAL INFORMATION: Seizure versus stroke. COMPARISON: Head CT 10/03/2021. TECHNIQUE: Multiplanar, multisequence MRI of the brain was obtained before and after the intravenous administration of 8 mL of Gadavist. FINDINGS: There is no pathologic intracranial enhancement. No parenchymal signal abnormality. No mesial temporal sclerosis. There is no hydrocephalus, extra-axial surface collection, or herniation. The major flow voids at the skull base are preserved. There is no acute infarct on diffusion-weighted imaging. There is no intracranial hemorrhage on the gradient recalled echo acquisition. The midline structures are normal. The cerebellar tonsils are normally positioned. The cerebellum and brainstem are normal. The craniocervical junction is normal. Osseous marrow signal intensity is homogenous. The visualized soft tissues are unremarkable. Mild bilateral mastoid effusions. MR/MR head/brain wo/w con IMPRESSION: Unremarkable MRI of the brain.
[2021-10-08 19:30] VITALS: BP 160/82; PULSE 60; RESP 18; TEMP 37.1; O2SAT 98; BMI 29.2
--- NOTE | 2021-10-08 19:52 | ED_ITS ---
HPI - General Adult General Chief complaint: General Medical Stated complaint: SEIZURES FROM [facility] NEED FOR MRI PER EMS Time Seen by Provider: 10/08/21 19:44 Source: patient Mode of arrival: EMS Limitations: no limitations History of Present Illness HPI narrative: Patient with complex medical history with history of hypertension anxiety depression thalamic pain syndrome and panic attacks was admitted here on 10/03 for increased tremors questionable seizures patient left AMA on 10/04 went to [facility] today and sent here back for MRI as did not have the MRI compatible with his bladder stimulator. Patient was seen by neurologist here advised MRI for tremors and EEG for possible seizures. Patient complaining of dizziness occipital headache and atypical seizures/catatonic episodes Related Data Home Medications Medication Instructions Recorded Confirmed cholecalciferol (vitamin D3) 50 50 mcg PO DAILY 05/22/20 10/08/21 mcg (2,000 unit) capsule fluticasone propionate 220 1 puff INHALATION BID g 05/22/20 10/08/21 mcg/actuation HFA aerosol inhaler (Flovent HFA) gabapentin 300 mg capsule 600 mg PO BEDTIME 05/22/20 10/08/21 ipratropium 20 mcg-albuterol 100 1 puff INHALATION QID g 05/22/20 10/08/21 mcg/actuation mist for inhalation (Combivent Respimat) oxycodone 15 mg tablet 15 mg PO Q6H 05/22/20 10/08/21 atorvastatin 20 mg tablet 20 mg PO DAILY 07/05/20 10/08/21 albuterol sulfate 1 vial INHALATION QID 07/19/20 10/08/21 multivitamin (Daily-Petra) 1 tab PO DAILY 07/19/20 10/08/21 bupropion HCl 150 mg tablet,12 hr 150 mg PO BID 08/29/21 10/08/21 sustained-release divalproex 500 mg tablet,delayed 1,000 mg PO BID 08/29/21 10/08/21 release fluoxetine 20 mg capsule 20 mg PO DAILY 08/29/21 10/08/21 dicyclomine 10 mg capsule 1 cap PO QID PRN 10/04/21 10/08/21 lipase 3,000-protease 1 cap PO DAILY 10/04/21 10/08/21 9,500-amylase 15,000 unit capsule, delayed rel (Creon) ondansetron HCl 4 mg tablet 4 mg PO BID PRN 10/04/21 10/08/21 alprazolam 1 mg tablet 0.5 mg PO DAILY@1200 PRN 10/08/21 10/08/21 alprazolam 1 mg tablet 1 mg PO BID PRN 10/08/21 10/08/21 escitalopram oxalate 10 mg tablet 1 tab PO QAM 10/08/21 10/08/21 lisinopril 5 mg tablet 1 tab PO BID 10/08/21 10/08/21 topiramate 25 mg tablet 25 mg PO BEDTIME 10/08/21 10/08/21 Previous Rx's Medication Instructions Recorded dexlansoprazole 60 mg 60 mg PO DAILY #90 cap 07/03/21 capsule,biphase delayed release (Dexilant) bethanechol chloride 50 mg tablet 50 mg PO BID 90 Days #180 tab 08/29/21 tamsulosin 0.4 mg capsule 0.4 mg PO DAILY 30 Days #30 cap 09/04/21 famotidine 40 mg tablet 40 mg PO BEDTIME #90 tab 09/21/21 Allergies Allergy/AdvReac Type Severity Reaction Status Date / Time cat dander [CATS] Allergy Unknown UNKNOWN Verified 08/29/21 11:44 dog dander [DOGS] Allergy Unknown UNKNOWN Verified 08/29/21 11:44 pollen extracts [POLLEN] Allergy Unknown UNKNOWN Verified 08/29/21 11:44 tree and shrub pollen Allergy sneeze Verified 08/29/21 11:44 [facility] Past Medical History Medical History Abdominal wall bulge Abnormal loss of weight Alcohol abuse Arthritis Asthma Balanitis Chronic back pain Depression Elevated blood pressure reading in office with diagnosis of hypertension Enlarged prostate Epidermal cyst Esophageal dysphagia Esophageal spasm Gout H/O ulcer disease High cholesterol History of anxiety History of depression History of panic attacks History of peptic ulcer disease Hx of insomnia Hx of irritable bowel syndrome Hypertension Incisional pain Left flank pain Lipoma of back Low back pain Marijuana use Multiple lipomas Multiple lipomas Osteoarthritis Pain in unspecified toe(s) Painful orthopaedic hardware Short frenulum of penis Slow urinary stream Thalamic pain syndrome Trochanteric bursitis, left hip Urinary retention Surgical History H/O breast surgery H/O neck surgery History of bunionectomy History of esophagogastroduodenoscopy (EGD) Hx of arthroscopy of left knee Hx of colonoscopy S/P excision of lipoma Family History Family History Family/Other Cancer Diabetes AIDS Brother Diabetes Myocardial infarction Father Enlarged prostate Mother Diabetes Asthma Social History Social History Are you a primary rn primary care to a significant other at home: No Do you presently have visiting nurse or other home services: No Alcohol intake: never Patient Tobacco Use Status: Current everyday Tobacco user Cigarettes Per Day: 6 Substance Use Type: Marijuana Advance Directives: No Physical Exam ED Vital Signs: Vital Signs - 24 hr 10/08/21 19:30 Temperature 98.7 F Pulse Rate 60 Respiratory Rate 18 Blood Pressure 160/82 H Pulse Oximetry 98 BMI result Body Mass Index 29.2 Appearance: Alert. Oriented X3. No acute distress. Eyes: PERRLA, ++Nystagmus ENT: Pharynx normal. Oral Mucosa moist Neck: Normal inspection. Neck supple. CVS: Normal heart rate and rhythm. Pulses normal. Respiratory: No respiratory distress. Equal air entry bilateral, no wheezing/rales/rhonchi Abdomen: Soft and nontender. Bowel sounds are present, no mass palpable, no CVA tenderness Skin: Skin warm and dry. Normal skin color. Normal skin turgor. Extremities: No lower extremity edema. No calf tenderness Neuro: Oriented X 3. No motor deficit. No sensory deficit. Intention tremor+ , cranial nerves II-XII intact Medical Decision Making Lab Data Lab results reviewed: Yes I reviewed the patient's lab results. Lab results narrative: Patient had labs done at [facility] which were reviewed and attached in the chart CBC chemistry RPR all negative COVID-19 was also negative hemoglobin 13 hematocrit 41.3 WBC count 5.7 sodium 143 potassium 4.1 BUN 11 creatinine 1.01 LFTs normal UA negative CT scan the head and C-spine negative urine drug screen was positive for opiates benzo and cannabinoids Discharge Plan Discharge Clinical Impression: Dizziness, Seizures Patient Disposition: Admitted As Inpatient
--- NOTE | 2021-10-08 21:06 | PHA.MEDREC ---
Pharmacy Consult ? Medication Reconciliation Pharmacy has completed the medication reconciliation. Spoke to patient and his significant other. Refill history supports non adherence to many medications. Per both of them, this is the complete list. Thanks Reza
--- NOTE | 2021-10-08 22:00 | PC.NURSE ---
Pt transferred from [facility] for MRI Pt's bladder stimulator is not compatible with [facility]'s MRI Per pt, was seen here last Friday for possible seizure but left AMA. Pt refused to stay and was anxious. Pt went to [facility] today. Pt denies any pain/n/v NAD Will continue to monitor
[2021-10-08] MEDS: ondansetron HCL 4 MG/2 ML VIAL IVPUSH (22:18)
[2021-10-08] MEDS: Morphine Sulfate 4 MG/ML CARTRIDGE IVPUSH (22:18)
[2021-10-08 23:51] VITALS: BP 127/49; PULSE 59; RESP 16; O2SAT 94
[2021-10-09] VITALS (7 sets, daily range): BP systolic 115–132; BP diastolic 63–78; PULSE 51–64; RESP 11–16; TEMP 36.5–36.6; O2SAT 94–97
--- NOTE | 2021-10-09 00:56 | P.HPHOSP_ITS ---
History of Present Illness Date of Service: 10/09/21 Chief Complaint: tremors, dizziness this is a 55-year-old male with past medical history that contains migraines, history of possible seizures, depression and anxiety, hyperlipidemia, panic attacks, insomnia, hypertension, among others who initially presented to the hospital on 10/03 for possible seizure, at the time patient was evaluated by Neurology who felt that this might be benzo withdrawal seizures verses stroke, , patient underwent EEG, was planned for MRI but left AMA on 10/04 before having the MRI done. Patient reports that he continued to have the symptoms of posterior headache as well as tremors and significant weakness in his legs therefore decided to go to [facility] for further evaluation. Patient was not able to get the MRI done at [facility] and therefore was transferred to our hospital for further management and evaluation as he had initial evaluation here. Patient agreeable to admission and reports that he had another episode of shakiness/ seizure-like episode at home during the day. This lasted about 45 minutes witnessed by his son, he reports that he has shaking of both his arms, he has significant weakness in his legs bilaterally. He denies any diplopia or blurry vision, denies any weakness in his arms, no numbness or tingling, he denies any chest pain, no shortness of breath, not a nausea or vomiting, no diarrhea constipation, no urinary symptoms. On arrival to the ED patient is hemodynamically stable with no significant abnormal vitals Review of Systems Review of Systems: Yes all other systems are reviewed and are negative [facility] Medical History Abdominal wall bulge Abnormal loss of weight Alcohol abuse Arthritis Asthma Balanitis Chronic back pain Depression Elevated blood pressure reading in office with diagnosis of hypertension Enlarged prostate Epidermal cyst Esophageal dysphagia Esophageal spasm Gout H/O ulcer disease High cholesterol History of anxiety History of depression History of panic attacks History of peptic ulcer disease Hx of insomnia Hx of irritable bowel syndrome Hypertension Incisional pain Left flank pain Lipoma of back Low back pain Marijuana use Multiple lipomas Multiple lipomas Osteoarthritis Pain in unspecified toe(s) Painful orthopaedic hardware Short frenulum of penis Slow urinary stream Thalamic pain syndrome Trochanteric bursitis, left hip Urinary retention Family History Family/Other Cancer Diabetes AIDS Brother Diabetes Myocardial infarction Father Enlarged prostate Mother Diabetes Asthma Surgical History H/O breast surgery H/O neck surgery History of bunionectomy History of esophagogastroduodenoscopy (EGD) Hx of arthroscopy of left knee Hx of colonoscopy S/P excision of lipoma Social History Are you a primary caretaker grounds to a significant other at home: No Do you presently have visiting nurse or other home services: No Alcohol intake: never Patient Tobacco Use Status: Current everyday Tobacco user Cigarettes Per Day: 6 Substance Use Type: Marijuana Advance Directives: No Meds Allergies Allergy/AdvReac Type Severity Reaction Status Date / Time cat dander [CATS] Allergy Unknown UNKNOWN Verified 08/29/21 11:44 dog dander [DOGS] Allergy Unknown UNKNOWN Verified 08/29/21 11:44 pollen extracts [POLLEN] Allergy Unknown UNKNOWN Verified 08/29/21 11:44 tree and shrub pollen Allergy sneeze Verified 08/29/21 11:44 Home Medications Medication Instructions Recorded Confirmed Last Taken Type cholecalciferol (vitamin D3) 50 50 mcg PO DAILY 05/22/20 10/08/21 10/07/21 History mcg (2,000 unit) capsule fluticasone propionate 220 1 puff INHALATION BID g 05/22/20 10/08/21 10/07/21 History mcg/actuation HFA aerosol inhaler (Flovent HFA) gabapentin 300 mg capsule 600 mg PO BEDTIME 05/22/20 10/08/21 10/07/21 History ipratropium 20 mcg-albuterol 100 1 puff INHALATION QID g 05/22/20 10/08/21 10/07/21 History mcg/actuation mist for inhalation (Combivent Respimat) oxycodone 15 mg tablet 15 mg PO Q6H 05/22/20 10/08/21 10/07/21 History atorvastatin 20 mg tablet 20 mg PO DAILY 07/05/20 10/08/21 10/07/21 History albuterol sulfate 1 vial INHALATION QID 07/19/20 10/08/21 10/07/21 History multivitamin (Daily-Petra) 1 tab PO DAILY 07/19/20 10/08/21 10/07/21 History bupropion HCl 150 mg tablet,12 hr 150 mg PO BID 08/29/21 10/08/21 10/07/21 History sustained-release divalproex 500 mg tablet,delayed 1,000 mg PO BID 08/29/21 10/08/21 10/07/21 History release fluoxetine 20 mg capsule 20 mg PO DAILY 08/29/21 10/08/21 10/07/21 History dicyclomine 10 mg capsule 1 cap PO QID PRN 10/04/21 10/08/21 Unknown History lipase 3,000-protease 1 cap PO DAILY 10/04/21 10/08/21 10/07/21 History 9,500-amylase 15,000 unit capsule, delayed rel (Creon) ondansetron HCl 4 mg tablet 4 mg PO BID PRN 10/04/21 10/08/21 10/07/21 History alprazolam 1 mg tablet 0.5 mg PO DAILY@1200 PRN 10/08/21 10/08/21 10/07/21 History alprazolam 1 mg tablet 1 mg PO BID PRN 10/08/21 10/08/21 10/07/21 History escitalopram oxalate 10 mg tablet 1 tab PO QAM 10/08/21 10/08/21 10/07/21 History lisinopril 5 mg tablet 1 tab PO BID 10/08/21 10/08/21 10/07/21 History topiramate 25 mg tablet 25 mg PO BEDTIME 10/08/21 10/08/21 10/07/21 History Physical Exam Vital Signs and Narrative: Vital Signs: Last Vital Signs Temp 98.7 F 10/08/21 19:30 Pulse 59 10/08/21 23:51 Resp 16 10/08/21 23:51 BP 127/49 L 10/08/21 23:51 Pulse Ox 94 10/08/21 23:51 BMI result Body Mass Index 29.2 Const: General: cooperative and no acute distress Orientation/consciousness: patient oriented x3 Eyes: General: appearance normal, both eyes and all related structures Resp: Effort & Inspection: normal respiratory effort Auscultation: clear to auscultation bilaterally Cardio: Rate: regular rate Rhythm: regular rhythm GI: Palpation (GI): Soft to palpation Auscultation: normal bowel sounds Skin: General skin exam: no rashes or lesions noted Neuro: Other: strength is 4/5 in lower extremities, decreased effort General: patient oriented x3 Extrem: General: Yes normal to inspection and Yes no pedal edema Assessment and Plan (1) Dizziness: Status: Acute (2) Headache: Status: Acute (3) Seizure-like activity: Status: Acute Plan this is a 55-year-old male with fall to follow past medical history presents to the hospital with seizure-like activity, initially admitted on 10/03 for further evaluation, with recommended MRI by Neurology at that time, patient left AMA on 10/04, returns today with similar symptoms. Patient will be admitted for observation # seizure-like activity/headache - migraine versus seizure versus cerebellar stroke - MRI ordered - initially thought to be benzo withdrawal seizures - EEG was done which was unremarkable - neurology consulted - monitor - will continue Depakote, as well as his home benzodiazepines # noted to have liver lesion on previous admission - follow-up with PCP outpatient # hypertension - stable - continue home antihypertensive # depression anxiety, bipolar, panic attacks - continue home medications DVT prophylaxis: Lovenox Quality Stroke Does the patient have a stroke diagnosis?: No VTE Prior VTE?: No VTE Risk Level:: Medical - moderate - high VTE Device Contraindication: Treatment Not Indicated VTE Drug Contraindication: N/A - Med Ordered
[2021-10-09] MEDS: Divalproex Sodium 500 MG TABLET.DR 1000 MG PO ×3 (02:14→19:54)
[2021-10-09] MEDS: Escitalopram Oxalate 10 MG TABLET PO ×2 (02:15→11:20)
[2021-10-09] MEDS: Gabapentin 300 MG CAPSULE 600 MG PO ×2 (02:15→19:54)
[2021-10-09] MEDS: oxyCODONE HCl Immed Release 15 MG TABLET PO ×4 (02:15→19:54)
[2021-10-09] MEDS: Omeprazole 40 MG CAPSULE.DR PO (06:07)
[2021-10-09 06:25] LABS: MANUAL DIFF FLAG NO
[2021-10-09 06:41] LABS: Basophils Percent Auto 0.2 % (0-2); Eosinophils Absolute Auto 0.2 X10*3/uL (0.0-0.4); Eosinophils Percent Auto 3.3 % (0-4); Hematocrit 41.9 % (42.0-52.0); Hemoglobin 13.7 g/dl (14.0-18.0); Imm Gran Abs Auto 0.02 X10*3/uL (0.00-0.03); Imm Gran Pct Auto 0.3 % (0.0-0.4); Lymphocytes Absolute Auto 1.9 X10*3/uL (1.2-4.9); Lymphocytes Percent Auto 28.3 % (20-40); Mean Corpuscular HGB Conc 32.7 g/dl (31.0-36.0); Mean Corpuscular Hemoglobin 31.4 pg (27.0-33.0); Mean Corpuscular Volume 95.9 fL (80.0-98.0); Mean Platelet Volume 9.4 fL (9.4-12.4); Monocytes Absolute Auto 0.7 X10*3/uL (0.1-1.2); Monocytes Percent Auto 11.3 % (2-11); Neutrophils Absolute Auto 3.7 x10*3/uL (2.0-8.3); Neutrophils Percent Auto 56.6 % (45-73); Platelet Count 270 X10*3/uL (160-400); Red Blood Count 4.37 X10*6/uL (4.60-5.80); Red Cell Distribution Width 13.9 % (11.0-16.0); White Blood Count 6.6 X10*3/uL (4.8-10.8)
[2021-10-09 06:44] LABS: Anion Gap 11 (12-20); Blood Urea Nitrogen 10 mg/dL (9-16); Calcium 9.6 mg/dL (8.4-10.2); Carbon Dioxide 30 mmol/L (22-29); Chloride 106 mmol/L (96-108); Creatinine Clr Calc Pharmacy 68.5; Estimated Glomerular Filt Rate > 60; Glucose Random 97 mg/dL (60-115); Potassium 4.7 mmol/L (3.3-5.1); Sodium 142 mmol/L (135-145)
[2021-10-09 07:16] LABS: COVID-19 Test Negative (Negative); IDNOW Serial# 16C4AD1C
[2021-10-09] MEDS: Enoxaparin Sodium 40 MG/0.4 ML SYRINGE SUBCUT (07:20)
--- NOTE | 2021-10-09 09:40 | MHC.CM.PN ---
Attempted to meet with patient in regards to discharge planning. Patient not in room. No family present. Will attempt to meet again. Continue to monitor for d/c needs.
[2021-10-09] MEDS: Tamsulosin HCL 0.4 MG CAPSULE PO (11:16)
[2021-10-09] MEDS: Cholecalciferol (Vitamin D3) 25 MCG TABLET 50 MCG PO (11:16)
[2021-10-09] MEDS: Multivitamin TABLET 1 TAB PO (11:18)
[2021-10-09] MEDS: Bethanechol Chloride 25 MG TABLET 50 MG PO ×2 (11:18→19:53)
[2021-10-09] MEDS: buPROPion HCl XL 300 MG TAB.ER.24H PO (11:19)
[2021-10-09] MEDS: Atorvastatin Calcium 20 MG TABLET PO (11:19)
[2021-10-09] MEDS: 0.9 % Sodium Chloride Flush 3 ML SYRINGE IVFLUSH ×3 (11:20→19:55)
[2021-10-09] MEDS: lisinopriL 5 MG TABLET PO ×2 (11:20→19:53)
[2021-10-09] MEDS: FLUoxetine HCl 20 MG CAPSULE PO (11:21)
[2021-10-09] MEDS: ALPRAZolam 0.5 MG TABLET PO (11:26)
--- NOTE | 2021-10-09 13:14 | P.CNNE_ITS ---
History of Present Illness Data of Consult Service Date: 10/09/21 Primary Care Provider: Unknown Physician HPI Reason for consult: generalized shaking episodes for up to 45 min. in the last 8 days this is a 54-year-old man with multiple medical problems including anxiety depression who has been having generalized shaking episodes of his whole body, arms and legs, some without loss of consciousness. in one he was not responding and was recently admitted to the [facility] last week for this. The shaking episodes last from 15 min. to 45 min. There was no tongue biting or incontinence. He is awake during some of them. He had an EEG which was normal and had an MRI of the brain today which is also normal. His neurological examination is nonfocal. He is already on 2 anti-epileptic drugs including Depakote 1 g twice a day and gabapentin 600 mg 3 times a day for psychiatric reasons Review of Systems Review of Systems: Yes all other systems are reviewed and are negative PMFSH Past Medical History Medical History Abdominal wall bulge Abnormal loss of weight Alcohol abuse Arthritis Asthma Balanitis Chronic back pain Depression Elevated blood pressure reading in office with diagnosis of hypertension Enlarged prostate Epidermal cyst Esophageal dysphagia Esophageal spasm Gout H/O ulcer disease High cholesterol History of anxiety History of depression History of panic attacks History of peptic ulcer disease Hx of insomnia Hx of irritable bowel syndrome Hypertension Incisional pain Left flank pain Lipoma of back Low back pain Marijuana use Multiple lipomas Multiple lipomas Osteoarthritis Pain in unspecified toe(s) Painful orthopaedic hardware Short frenulum of penis Slow urinary stream Thalamic pain syndrome Trochanteric bursitis, left hip Urinary retention Family History Family History Family/Other Cancer Diabetes AIDS Brother Diabetes Myocardial infarction Father Enlarged prostate Mother Diabetes Asthma Surgical History Surgical History H/O breast surgery H/O neck surgery History of bunionectomy History of esophagogastroduodenoscopy (EGD) Hx of arthroscopy of left knee Hx of colonoscopy S/P excision of lipoma Social History Social History Are you a primary personal care aid to a significant other at home: No Do you presently have visiting nurse or other home services: No Alcohol intake: never Patient Tobacco Use Status: Current everyday Tobacco user Cigarettes Per Day: 6 Substance Use Type: Marijuana Advance Directives: No Meds Allergies Allergy/AdvReac Type Severity Reaction Status Date / Time cat dander [CATS] Allergy Unknown UNKNOWN Verified 08/29/21 11:44 dog dander [DOGS] Allergy Unknown UNKNOWN Verified 08/29/21 11:44 pollen extracts [POLLEN] Allergy Unknown UNKNOWN Verified 08/29/21 11:44 tree and shrub pollen Allergy sneeze Verified 08/29/21 11:44 Active Medications: Current Medications Acetaminophen (Acetaminophen 325 Mg Tablet) 650 mg PO Q6H PRN PRN Reason: Pain, Mild (Pain Scale 1-3) Albuterol/Ipratropium (Albuterol/Iprat 2.5/0.5mg 3 Ml Ampul.Neb) 3 ml INHALE QID PRN PRN Reason: shortness of breath Alprazolam (Alprazolam 0.5 Mg Tablet) 0.5 mg PO DAILY@1200 PRN PRN Reason: Anxiety Last Admin: 10/09/21 11:26 Dose: 0.5 mg Documented by: Alprazolam (Alprazolam 0.5 Mg Tablet) 1 mg PO BID PRN PRN Reason: Anxiety Atorvastatin Calcium (Atorvastatin Calcium 20 Mg Tablet) 20 mg PO DAILY [facility] Last Admin: 10/09/21 11:19 Dose: 20 mg Documented by: Bethanechol Chloride (Bethanechol Chloride 25 Mg Tablet) 50 mg PO BID [facility] Last Admin: 10/09/21 11:18 Dose: 50 mg Documented by: Bupropion HCl (Bupropion Hcl Xl 300 Mg Tab.Er.24h) 300 mg PO DAILY [facility] Last Admin: 10/09/21 11:19 Dose: 300 mg Documented by: Dicyclomine HCl (Dicyclomine Hcl 10 Mg Capsule) 10 mg PO QID PRN PRN Reason: Gastrointestinal Spasms Or Cramping Divalproex Sodium (Divalproex Sodium 500 Mg Tablet.Dr) 1,000 mg PO BID [facility] Last Admin: 10/09/21 11:19 Dose: 1,000 mg Documented by: Docusate Sodium (Docusate Sodium 100 Mg Capsule) 100 mg PO DAILY PRN PRN Reason: Constipation Enoxaparin Sodium (Enoxaparin Sodium 40 Mg/0.4 Ml Syringe) 40 mg SUBCUT Q24H [facility] Last Admin: 10/09/21 07:20 Dose: 40 mg Documented by: Escitalopram Oxalate (Escitalopram Oxalate 10 Mg Tablet) 10 mg PO DAILY [facility] Last Admin: 10/09/21 11:20 Dose: 10 mg Documented by: Famotidine (Famotidine 20 Mg Tablet) 40 mg PO BEDTIME [facility] Fluoxetine HCl (Fluoxetine Hcl 20 Mg Capsule) 20 mg PO DAILY [facility] Last Admin: 10/09/21 11:21 Dose: 20 mg Documented by: Fluticasone Propionate (Fluticasone Propionate 250 Mcg Blst.W.Dev) 1 puff INHALE RBID [facility] Last Admin: 10/09/21 08:06 Dose: Not Given Documented by: Gabapentin (Gabapentin 300 Mg Capsule) 600 mg PO BEDTIME [facility] Last Admin: 10/09/21 02:15 Dose: 600 mg Documented by: Lisinopril (Lisinopril 5 Mg Tablet) 5 mg PO BID [facility]; Protocol Last Admin: 10/09/21 11:20 Dose: 5 mg Documented by: Multivitamins/Vitamin C (Multivitamin Tablet) 1 tab PO DAILY [facility] Last Admin: 10/09/21 11:18 Dose: 1 tab Documented by: Non-Formulary Medication (Tkzdxb-Smideuqc-Pescevs [Creon]) 1 cap PO DAILY [facility] Omeprazole (Omeprazole 40 Mg Capsule.Dr) 40 mg PO DAILY@0600 [facility] Last Admin: 10/09/21 06:07 Dose: 40 mg Documented by: Ondansetron HCl (Ondansetron Hcl 4 Mg/2 Ml Vial) 4 mg IVPUSH Q8H PRN PRN Reason: Nausea and Vomiting Oxycodone HCl (Oxycodone Hcl Immed Release 15 Mg Tablet) 15 mg PO Q6H [facility] Last Admin: 10/09/21 12:47 Dose: 15 mg Documented by: Sodium Chloride (0.9 % Sodium Chloride Flush 3 Ml Syringe) 3 ml IVFLUSH QSHIFT [facility] Last Admin: 10/09/21 12:34 Dose: 3 ml Documented by: Tamsulosin HCl (Tamsulosin Hcl 0.4 Mg Capsule) 0.4 mg PO DAILY [facility] Last Admin: 10/09/21 11:16 Dose: 0.4 mg Documented by: Vitamin D (Cholecalciferol (Vitamin D3) 25 Mcg Tablet) 50 mcg PO DAILY [facility] Last Admin: 10/09/21 11:16 Dose: 50 mcg Documented by: Home Medications Medication Instructions Recorded Confirmed Last Taken Type cholecalciferol (vitamin D3) 50 50 mcg PO DAILY 05/22/20 10/08/21 10/07/21 History mcg (2,000 unit) capsule fluticasone propionate 220 1 puff INHALATION BID g 05/22/20 10/08/21 10/07/21 History mcg/actuation HFA aerosol inhaler (Flovent HFA) gabapentin 300 mg capsule 600 mg PO BEDTIME 05/22/20 10/08/21 10/07/21 History ipratropium 20 mcg-albuterol 100 1 puff INHALATION QID g 05/22/20 10/08/21 10/07/21 History mcg/actuation mist for inhalation (Combivent Respimat) oxycodone 15 mg tablet 15 mg PO Q6H 05/22/20 10/08/21 10/07/21 History atorvastatin 20 mg tablet 20 mg PO DAILY 07/05/20 10/08/21 10/07/21 History albuterol sulfate 1 vial INHALATION QID 07/19/20 10/08/21 10/07/21 History multivitamin (Daily-Petra) 1 tab PO DAILY 07/19/20 10/08/21 10/07/21 History bupropion HCl 150 mg tablet,12 hr 150 mg PO BID 08/29/21 10/08/21 10/07/21 History sustained-release divalproex 500 mg tablet,delayed 1,000 mg PO BID 08/29/21 10/08/21 10/07/21 History release fluoxetine 20 mg capsule 20 mg PO DAILY 08/29/21 10/08/21 10/07/21 History dicyclomine 10 mg capsule 1 cap PO QID PRN 10/04/21 10/08/21 Unknown History lipase 3,000-protease 1 cap PO DAILY 10/04/21 10/08/21 10/07/21 History 9,500-amylase 15,000 unit capsule, delayed rel (Creon) ondansetron HCl 4 mg tablet 4 mg PO BID PRN 10/04/21 10/08/21 10/07/21 History alprazolam 1 mg tablet 0.5 mg PO DAILY@1200 PRN 10/08/21 10/08/21 10/07/21 History alprazolam 1 mg tablet 1 mg PO BID PRN 10/08/21 10/08/21 10/07/21 History escitalopram oxalate 10 mg tablet 1 tab PO QAM 10/08/21 10/08/21 10/07/21 History lisinopril 5 mg tablet 1 tab PO BID 10/08/21 10/08/21 10/07/21 History topiramate 25 mg tablet 25 mg PO BEDTIME 10/08/21 10/08/21 10/07/21 History Physical Exam Vital Signs: Vital Signs: Last Vital Signs Temp 97.9 F 10/09/21 12:00 Pulse 61 10/09/21 12:00 Resp 16 10/09/21 12:00 BP 132/78 10/09/21 12:00 Pulse Ox 96 10/09/21 12:52 BMI result Body Mass Index 29.2 Const: General: cooperative and no acute distress Orientation/consciousness: patient oriented x3 Eyes: General: appearance normal, both eyes and all related structures Resp: Effort & Inspection: normal respiratory effort Auscultation: clear to auscultation bilaterally Cardio: Rate: regular rate Rhythm: regular rhythm GI: Palpation (GI): Soft to palpation Auscultation: normal bowel sounds Skin: General skin exam: no rashes or lesions noted Neuro: Other: normal neurological examination General: patient oriented x3 Extrem: General: Yes normal to inspection and Yes no pedal edema Results Labs CBC & Chem 7: 10/09/21 06:11 10/09/21 06:11 Labs: Short CBC 10/09/21 Range/Units 06:11 WBC 6.6 (4.8-10.8) X10*3/uL Hgb 13.7 L (14.0-18.0) g/dl Hct 41.9 L (42.0-52.0) % Plt Count 270 D (160-400) X10*3/uL BMP 10/09/21 06:11 Sodium 142 Potassium 4.7 Chloride 106 Carbon Dioxide 30 H BUN 10 Creatinine 1.17 Calcium 9.6 D Assessment and Plan (1) Dizziness: Status: Acute (2) Headache: Status: Acute (3) Seizure-like activity: Status: Acute shaking episodes appear to be anxiety related and not epileptic. They're very atypical, of long duration with a normal MRI and EEG. He is also already on 2 antiepileptic drugs for other reasons. Recommendations address anxiety issues counseling. Plan this is a 55-year-old male with fall to follow past medical history presents to the hospital with seizure-like activity, initially admitted on 10/03 for further evaluation, with recommended MRI by Neurology at that time, patient left AMA on 10/04, returns today with similar symptoms. Patient will be admitted for observation # seizure-like activity/headache - migraine versus seizure versus cerebellar stroke - MRI ordered - initially thought to be benzo withdrawal seizures - EEG was done which was unremarkable - neurology consulted - monitor - will continue Depakote, as well as his home benzodiazepines # noted to have liver lesion on previous admission - follow-up with PCP outpatient # hypertension - stable - continue home antihypertensive # depression anxiety, bipolar, panic attacks - continue home medications DVT prophylaxis: Lovenox Procedures Date of Service Date of Service: 10/09/21
--- NOTE | 2021-10-09 14:37 | PM.EVENT ---
Event Note Date of Service: 10/09/21 Event Note: Day hospitalist update Pt back from MRI. MRI was completely normal. No further seizrues. Awaiting neurology consultation and input. Pt states he is on Depakote for anger - presumably as a mood stabilizer.
--- NOTE | 2021-10-09 14:46 | PC.NURSE ---
Addendum entered by Karen Wyatt RN 10/09/21 18:53: PRIMARY/EMERGENCY CONTACT CHANGED TO PATIENTS SISTER. SECONDARY REMAINS PATIENTS GIRLFRIEND. SEE CONTACT LIST. Original Note: PSYCHIATRY CONSULT CALLED TO M5 ([phone]) NOW.
--- NOTE | 2021-10-09 15:09 | PC.NURSE ---
PATIENT REPORTS ITCHY BILATERAL HANDS WITH TINY PUMPS NOTED UNDER THE SURFACE OF THE SKIN ON BILATERAL PALMS. NO OPEN AREAS NOTED. MD NOTIFIED AND ORDERED MEDICATED CREAM. WILL ADMINISTER ONCE DELIVERED. WILL CONTINUE TO MONITOR.
[2021-10-09] MEDS: Famotidine 20 MG TABLET 40 MG PO (19:53)
[2021-10-09] MEDS: Acetaminophen 325 MG TABLET 650 MG PO (19:59)
[2021-10-09] MEDS: Hydrocortisone 1 % Cream 28.35 GM TUBE 1 APPL TOPICAL (20:00)
[2021-10-09] MEDS: ALPRAZolam 0.5 MG TABLET 1 MG PO (22:57)
[2021-10-10] VITALS: BP 91/51; PULSE 58; RESP 18; TEMP 36.6; O2SAT 98
--- NOTE | 2021-10-10 01:13 | PC.NURSE ---
Pt seen on bed at start of shift alert and oriented, still c/o nape pain, denies any CP nor SOB, tolerating RA, po intake is good, SR to SB on the 50s when asleep in tele, all due meds given, voiding in the urinal, revisited later and pt still unable to sleep, prn Xanax given, slept thereafter.
[2021-10-10 04:00] VITALS: BP 90/63; PULSE 54; RESP 18; TEMP 36.7; O2SAT 99
[2021-10-10] MEDS: oxyCODONE HCl Immed Release 15 MG TABLET PO ×2 (06:17→13:47)
[2021-10-10] MEDS: Omeprazole 40 MG CAPSULE.DR PO (06:18)
[2021-10-10] MEDS: Enoxaparin Sodium 40 MG/0.4 ML SYRINGE SUBCUT (06:18)
[2021-10-10 08:01] VITALS: BP 111/75; PULSE 85; RESP 16; TEMP 36.6; O2SAT 99
[2021-10-10] MEDS: FLUoxetine HCl 20 MG CAPSULE PO (08:04)
[2021-10-10] MEDS: buPROPion HCl XL 300 MG TAB.ER.24H PO (08:04)
[2021-10-10] MEDS: Multivitamin TABLET 1 TAB PO (08:04)
[2021-10-10] MEDS: Atorvastatin Calcium 20 MG TABLET PO (08:05)
[2021-10-10] MEDS: Bethanechol Chloride 25 MG TABLET 50 MG PO (08:05)
[2021-10-10] MEDS: Escitalopram Oxalate 10 MG TABLET PO (08:05)
[2021-10-10] MEDS: lisinopriL 5 MG TABLET PO (08:05)
[2021-10-10] MEDS: Divalproex Sodium 500 MG TABLET.DR 1000 MG PO (08:05)
[2021-10-10] MEDS: Cholecalciferol (Vitamin D3) 25 MCG TABLET 50 MCG PO (08:05)
[2021-10-10] MEDS: Tamsulosin HCL 0.4 MG CAPSULE PO (08:05)
[2021-10-10] MEDS: 0.9 % Sodium Chloride Flush 3 ML SYRINGE IVFLUSH (08:06)
[2021-10-10] MEDS: Hydrocortisone 1 % Cream 28.35 GM TUBE 1 APPL TOPICAL (08:06)
[2021-10-10] MEDS: Fluticasone Propionate 250 MCG BLST.W.DEV 1 PUFF INHALE (09:03)
[2021-10-10 09:05] VITALS: PULSE 69; RESP 18; O2SAT 99
--- NOTE | 2021-10-10 11:01 | MHC.CM.PN ---
MADY MET WITH PT AND HIS DAUGHTER WHO WAS AT BEDSIDE PT LIVES ALONE AND HAS DAILY [employer] PTS DAUGHTER EXPRESSED CONCERN THAT SHE DOES NOT FEEL THE PT SHOULD BE ALONE AND NEEDS INCREASED [employer] HOURS. MADY EXPLAINED THIS MUST BE ADDRESSED WITH THE [facility] OR HIS PCP THEY REPORT THE PTS PCP IS SADIA BARRAZA PT HAS A CPAP, WALKER AND CANE AT HOME HOWEVER THEY REPORT THEY FEEL HE WOULD BE SAFER IN A W/C THEY WILL DISCUSS THIS WITH THE BUTCHER THEY ARE ALSO REQUESTING A Rx FOR ENSURE IMM DELIVERED DC PLAN, HOME RESUME [employer] FAMILY TO TRANSPORT OF NOTE: MADY DID NOT INFORM MD OF REQUESTS FOR ENSURE AND W/C Rx THE PTS DAUGHTER INFORMED THE RN WHO INDICATED SHE WOULD PASS THE INFORMATION
[2021-10-10] MEDS: Baclofen 10 MG TABLET PO (11:28)
--- NOTE | 2021-10-10 15:11 | PM.DS ---
DS: Providers Provider Date of Service: 10/10/21 Date of admission: 10/09/21 00:46 Date of discharge: 10/10/21 Primary care physician: Unknown Physician Consults: 10/09/21 00:46 Consult to Neurology Routine Consulting Provider: [facility] Reason for consultation: seizure, vs TIA Has provider been notified: No 10/09/21 14:38 Consult to Psychiatry Routine Consulting Provider: Psych Covering Reason for consultation: shaking episodes, not seizures, per neuro likely anxiety DS: Diagnosis Discharge Diagnosis (1) Dizziness: Status: Acute (2) Headache: Status: Acute (3) Seizure-like activity: Status: Acute DS: Summary Hospital Course Hospital Course: 55-year-old male with past medical history that contains migraines, history of possible seizures, depression and anxiety, hyperlipidemia, panic attacks, insomnia, hypertension, among others who initially presented to the hospital on 10/03 for possible seizure, at the time patient was evaluated by Neurology who felt that this might be benzo withdrawal seizures verses stroke, , patient underwent EEG, was planned for MRI but left AMA on 10/04 before having the MRI done.? Patient reports that he continued to have the symptoms of posterior headache as well as tremors and significant weakness in his legs therefore decided to go to [facility] for further evaluation.? Patient was not able to get the MRI done at [facility] and therefore was transferred to our hospital for further management and evaluation as he had initial evaluation here.? Patient agreeable to admission and reports that he had another episode of shakiness/ seizure-like episode at home during the day.? This lasted about 45 minutes witnessed by his son, he reports that he has shaking of both his arms, he has significant weakness in his legs bilaterally.? He denies any diplopia or blurry vision, denies any weakness in his arms, no numbness or tingling, he denies any chest pain, no shortness of breath, not a nausea or vomiting, no diarrhea constipation, no urinary symptoms.? Hospital course Patient admitted to the hospital and seen by Neurology. MRI of the brain failed to demonstrate any acute pathology as well as an EEG being negative. Episode was thought to be related to anxiety. Patient did experience a occipital type headache which was thought to be occipital neuralgia for which baclofen was effective. At this point in time he is medically stable for discharge will be discharged to follow-up with PCP Time Spent with Patient Time attestation: Total time spent providing and/or coordinating discharge services: Discharge coordination time: Greater than 30 minutes Quality: Safe Use of Opioids Does Pt have an Active Cancer Diagnosis on the Problem List?: No Quality: Stroke Does the patient have a stroke diagnosis?: No Physical Exam Vital Signs: Vital Signs: Last Vital Signs Temp 97.9 F 10/10/21 08:01 Pulse 69 10/10/21 09:05 Resp 18 10/10/21 09:05 BP 111/75 10/10/21 08:01 Pulse Ox 99 10/10/21 08:01 BMI result Body Mass Index 29.2 Const: General: cooperative and no acute distress Orientation/consciousness: patient oriented x3 Eyes: General: appearance normal, both eyes and all related structures Resp: Effort & Inspection: normal respiratory effort Auscultation: clear to auscultation bilaterally Cardio: Rate: regular rate Rhythm: regular rhythm GI: Palpation (GI): Soft to palpation Auscultation: normal bowel sounds Skin: General skin exam: no rashes or lesions noted Neuro: Other: strength is 4/5 in lower extremities, decreased effort General: patient oriented x3 Extrem: General: Yes normal to inspection and Yes no pedal edema Discharge Plan Discharge Patient Disposition: Home Health Service Discharge Diagnosis: Headache Referrals: Physician,Unknown J [Primary Care Provider] - 1 Week Discharge Medications: New baclofen 5 mg tablet 5 mg PO TID Qty: 30 0RF Continued Dexilant 60 mg capsule,biphase delayed releas 60 mg PO DAILY Qty: 90 1RF tamsulosin 0.4 mg capsule 0.4 mg PO DAILY 30 Days Qty: 30 1RF famotidine 40 mg tablet 40 mg PO BEDTIME Qty: 90 2RF multivitamin [Daily-Petra] Tablet 1 tab PO DAILY 0RF albuterol sulfate 2.5 mg /3 mL (0.083 %) solution for nebulization 1 vial inhalation QID 0RF ondansetron HCl 4 mg tablet 4 mg PO BID PRN (Reason: Nausea) 0RF Creon 3,000-9,500- 15,000 unit capsule,delayed release(DR/EC) 1 cap PO DAILY 0RF dicyclomine 10 mg capsule 1 cap PO QID PRN (Reason: Gastrointestinal Spasms Or Cramping) 0RF alprazolam 1 mg tablet 0.5 mg PO DAILY@1200 PRN (Reason: Anxiety) 0RF alprazolam 1 mg tablet 1 mg PO BID PRN (Reason: Anxiety) 0RF topiramate 25 mg tablet 25 mg PO BEDTIME 0RF lisinopril 5 mg tablet 1 tab PO BID 0RF escitalopram oxalate 10 mg tablet 1 tab PO QAM 0RF atorvastatin 20 mg tablet 20 mg PO DAILY 0RF oxycodone 15 mg tablet 15 mg PO Q6H 0RF cholecalciferol (vitamin D3) 50 mcg (2,000 unit) capsule 50 mcg PO DAILY 0RF gabapentin 300 mg capsule 600 mg PO BEDTIME 0RF Flovent HFA 220 mcg/actuation HFA aerosol inhaler 1 puff inhalation BID 0RF Combivent Respimat 20-100 mcg/actuation mist 1 puff inhalation QID 0RF fluoxetine 20 mg capsule 20 mg PO DAILY 0RF bupropion HCl 150 mg tablet sustained-release 12 hr 150 mg PO BID 0RF divalproex 500 mg tablet,delayed release (DR/EC) 1,000 mg PO BID 0RF bethanechol chloride 50 mg tablet 50 mg PO BID 90 Days Qty: 180 1RF Discharge Orders: Discharge Order (Routine); Ordered 10/10/21 Ordered By: Clarence Beebe Diet: advance to usual diet Activity on Discharge: As tolerated Stand Alone Forms: Patient Portal Discharge page Care Plan Goals: Continue all outpatient meds. Add Baclofen at bedtime Health Concerns: Follow up with PCP as scheduled Plan of Treatment: as outlined Assessment: see DC summary Discharge Date/Time: 10/10/21 14:46
== END 2021-10-10 14:46 | disposition home health service (06) ==
LOC: HO.ED 21:54 → HO.EDOVER 10-09 00:58
PROVIDERS: Admitting Provider Internal Medicine; Emergency Provider Internal Medicine; PCP Internal Medicine; Visit Provider Family Medicine
DX: R42 Dizziness and giddiness (principal); R51.9 Headache, unspecified; R56.9 Unspecified convulsions; R63.4 Abnormal weight loss; G89.0 Central pain syndrome; I10 Essential (primary) hypertension; E78.5 Hyperlipidemia, unspecified; E78.00 Pure hypercholesterolemia, unspecified; R33.9 Retention of urine, unspecified; F41.8 Other specified anxiety disorders; F41.0 Panic disorder [episodic paroxysmal anxiety]; F17.210 Nicotine dependence, cigarettes, uncomplicated; F10.10 Alcohol abuse, uncomplicated; F12.20 Cannabis dependence, uncomplicated; J30.81 Allergic rhinitis due to animal (cat) (dog) hair and dander; J30.1 Allergic rhinitis due to pollen; Z96.0 Presence of urogenital implants; Z79.891 Long term (current) use of opiate analgesic; Z79.899 Other long term (current) drug therapy
CPT/HCPCS: 36415; 70553; 80048; 80164; 85025; 87635; 94640; 96374; 96375; 96376; 99219; 99285; A9585; J1650; J2270; J2405

== ENCOUNTER 2021-10-15 12:38 | Outpatient (REF) | payer OTHER, SELFPAY ==
[2021-10-15 13:58] LABS: Blood Urea Nitrogen 14 mg/dL (9-16); Estimated Glomerular Filt Rate > 60
== END 2021-10-15 12:39 | disposition home or self-care (01) ==
LOC: HO.LAB 12:38
PROVIDERS: PCP Internal Medicine; Visit Provider Internal Medicine
DX: N28.1 Cyst of kidney, acquired (principal)
CPT/HCPCS: 36415; 82565; 84520

== ENCOUNTER 2021-10-16 09:55 | Outpatient (REF) | payer OTHER, SELFPAY ==
--- NOTE | ~2021-10-16 | CT_ITS ---
EXAMINATION: CT HEAD WITH/WITHOUT CONTRAST CLINICAL INFORMATION: Seizure COMPARISON: Previous head CT most recent September 2021 and brain MRI October 2021 TECHNIQUE: Contiguous axial imaging was performed from the skull base to vertex before and after the administration of 85 mL of Omnipaque [address] examination was performed using dose optimization techniques as appropriate, variously including the following: *Automated exposure control *Adjustment of mA and/or kV according to patient size (this includes techniques or standardized protocols for targeted exams where dose is matched to indication/reason for exam; i.e. extremities or head) *Use of iterative reconstruction technique DLP: 1331 mGy-cm FINDINGS: There is no evidence of acute intracranial hemorrhage or territorial infarction. No abnormal mass effect or midline shift is seen. Cheng to white matter differentiation is well preserved. No extra-axial fluid collections are identified. There is no abnormal enhancement. The ventricles are normal in size. There is no abnormal attenuation within the brain parenchyma. The osseous structures and soft tissues are normal. There is some soft tissue opacification of the inferior bilateral mastoid air cells. This is similar to previous exam. The mastoid air cells, middle ears and visualized portions of the paranasal sinuses are otherwise clear. CT/CT head/brain wo/w con IMPRESSION: No acute findings. Minimal soft tissue opacification of the bilateral inferior mastoid air cells similar to previous exams.
[2021-10-16] MEDS: iohexoL 350 MG/ML 100 ML INFUS..BTL IV (10:42)
== END 2021-10-16 09:56 | disposition home or self-care (01) ==
LOC: HO.CT 09:55
PROVIDERS: Visit Provider Internal Medicine
DX: R56.9 Unspecified convulsions (principal)
CPT/HCPCS: 70470; Q9967

== ENCOUNTER → 2022-01-29 08:45 | Outpatient (BNVA) | payer OTHER, SELFPAY | PROVIDERS: PCP Internal Medicine; Referring Provider Internal Medicine; Visit Provider Nurse Practitioner | DX: G43.909 Migraine, unspecified, not intractable, without status migrainosus (principal); K21.9 Gastro-esophageal reflux disease without esophagitis; K58.0 Irritable bowel syndrome with diarrhea | CPT/HCPCS: 99212 ==

== ENCOUNTER → 2022-03-12 08:39 | Outpatient (BNVA) | payer OTHER, SELFPAY | PROVIDERS: PCP Internal Medicine; Referring Provider Internal Medicine; Visit Provider Nurse Practitioner | DX: K21.9 Gastro-esophageal reflux disease without esophagitis (principal); K58.0 Irritable bowel syndrome with diarrhea; R10.33 Periumbilical pain; G43.909 Migraine, unspecified, not intractable, without status migrainosus; R11.2 Nausea with vomiting, unspecified | CPT/HCPCS: 99212 ==

== ENCOUNTER 2022-06-12 09:10 | Outpatient (REF) | payer OTHER, SELFPAY ==
--- NOTE | ~2022-06-12 | US_ITS ---
EXAMINATION: US ABDOMEN COMPLETE CLINICAL INFORMATION: Periumbilical pain. COMPARISON: CT abdomen and pelvis 10/03/2021. MRI abdomen 09/22/2017. Ultrasound abdomen 12/23/2012 and 10/20/2012. TECHNIQUE: Real-time imaging of the abdominal viscera. FINDINGS: PANCREAS: The head of the pancreas is homogeneous in echotexture. The body and tail of the pancreas is not visualized due to overlying gas. ABDOMINAL AORTA: The proximal, mid, and distal segments are normal in caliber. INFERIOR VENA CAVA: Visualized portions are normal. LIVER: Normal. The liver is normal in size. The liver contour is normal. Parenchymal echogenicity is normal. No focal hepatic lesion. There is no intrahepatic biliary duct dilatation seen. GALLBLADDER: Gallbladder wall thickness is 0.4 cm. The gallbladder is physiologically distended without evidence of stones, sludge, polyps, or pericholecystic fluid. COMMON BILE DUCT: Normal in caliber measuring 0.3 cm in diameter. RIGHT KIDNEY: There is anechoic cyst in the lower pole measuring 0.6 x 0.6 x 0.6 cm. No hydronephrosis or renal calculi. The kidney measures 10.5 cm in maximum dimension. LEFT KIDNEY: There is an anechoic cyst in the lower pole measuring 3.9 x 4.8 x 4.3 cm. There is a solid partially exophytic mass in the upper pole measuring 1.5 x 1.4 x 1.0 cm and wall calcification. No hydronephrosis or renal calculi. The kidney measures 13.7 cm in maximum dimension. SPLEEN: Normal. The spleen measures 7.6 cm in maximum dimension. FREE FLUID: None. US/US abdomen complete IMPRESSION: Bilateral renal cysts. Small solid mass partially exophytic upper pole left kidney. Question primary lesion versus complicated cyst. Recommend correlation with CT kidneys with and without contrast.
== END 2022-06-12 09:11 | disposition home or self-care (01) ==
LOC: HO.US 09:10
PROVIDERS: Visit Provider Nurse Practitioner
DX: R10.33 Periumbilical pain (principal)
CPT/HCPCS: 76700

== ENCOUNTER 2022-06-19 11:07 | Emergency (ER) | payer OTHER, SELFPAY ==
--- NOTE | ~2022-06-19 | US_ITS ---
EXAMINATION: US SCROTUM CLINICAL INFORMATION: Bilateral testicular pain and swelling. COMPARISON: None TECHNIQUE: A sonogram of the scrotum was performed assessing gardner-scale appearance and color Doppler flow. Spectral Doppler analysis of the arterial and venous flow were performed in the testes bilaterally. FINDINGS: RIGHT: Right testicle measures 3.2 x 2.0 x 2.6 cm, volume 8.5 mL. There is a complex anechoic testicular cyst measuring 0.6 x 0.6 x 0.7 cm. Incidental finding of a right appendix testes is noted. Spectral Doppler analysis of the arterial and venous flow is normal in the right testis. Right epididymal head is normal in size. There is anechoic cyst in the middle head measuring 0.5-0 0.3 x 0.5 cm. No right hydrocele or varicocele is seen. Right epididymal Doppler flow is normal. LEFT: Left testicle measures 3.6 x 1.8 x 2.4 cm, volume 8.2 mL. There is simple anechoic cyst measuring 0.7 x 0.6 x 0.7 cm. No focal testicular parenchymal lesions are visualized. Spectral Doppler analysis of the arterial and venous flow is normal in the left testis. Left epididymal head is normal in size. No left hydrocele or varicocele is seen. Left epididymal Doppler flow is normal US/US scrotum IMPRESSION: Bilateral scrotal cyst complex on the right. No solid lesions seen. The vascularity is normal to both testes. Right epididymal head cysts. Normal vascular flow seen to bilateral epididymides.
--- NOTE | ~2022-06-19 | XR_ITS ---
EXAMINATION: XR CHEST CLINICAL INFORMATION: Chest pain/neck pain and back pain. COMPARISON: Chest 06/26/2021 TECHNIQUE: 2 views of the chest were obtained. FINDINGS: No significant abnormality is noted involving the heart, lungs, mediastinum, bony thorax or soft tissues. XR/XR chest 2V IMPRESSION: Unremarkable chest exam.
--- NOTE | 2022-06-19 11:12 | ECG_ITS ---
Test Reason : cp Blood Pressure : / mmHG Vent. Rate : 071 BPM Atrial Rate : 071 BPM P-R Int : 148 ms QRS Dur : 076 ms QT Int : 352 ms P-R-T Axes : 036 011 039 degrees QTc Int : 382 ms Normal sinus rhythm Normal ECG When compared with ECG of 03-OCT-2021 16:39, No significant change was found Referred By: Generic ED Physician Electronically Signed By:MAXIMO RIOS
--- NOTE | 2022-06-19 12:29 | ED.GENADULT ---
HPI - General Adult General Chief complaint: General Medical Stated complaint: CP, pain in testicles, HBP Related Data Home Medications Medication Instructions Recorded Confirmed cholecalciferol (vitamin D3) 50 50 mcg PO DAILY 05/22/20 10/08/21 mcg (2,000 unit) capsule fluticasone propionate 220 1 puff inhalation BID 05/22/20 10/08/21 mcg/actuation HFA aerosol inhaler (Flovent HFA) ipratropium 20 mcg-albuterol 100 1 puff inhalation QID 05/22/20 10/08/21 mcg/actuation mist for inhalation (Combivent Respimat) oxycodone 15 mg tablet 15 mg PO Q6H 05/22/20 10/08/21 atorvastatin 20 mg tablet 20 mg PO DAILY 07/05/20 10/08/21 albuterol sulfate 2.5 mg/3 mL 1 vial inhalation QID 07/19/20 10/08/21 (0.083 %) solution for nebulization multivitamin (Daily-Petra tablet) 1 tab PO DAILY 07/19/20 10/08/21 bupropion HCl 150 mg tablet,12 hr 150 mg PO BID 08/29/21 10/08/21 sustained-release divalproex 500 mg tablet,delayed 1,000 mg PO BID 08/29/21 10/08/21 release fluoxetine 20 mg capsule 20 mg PO DAILY 08/29/21 10/08/21 lipase 3,000-protease 1 cap PO DAILY 10/04/21 01/29/22 9,500-amylase 15,000 unit capsule, delayed rel (Creon) alprazolam 1 mg tablet 0.5 mg PO DAILY@1200 PRN Anxiety 10/08/21 10/08/21 alprazolam 1 mg tablet 1 mg PO BID PRN Anxiety 10/08/21 10/08/21 escitalopram oxalate 10 mg tablet 1 tab PO QAM 10/08/21 10/08/21 lisinopril 5 mg tablet 1 tab PO BID 10/08/21 10/08/21 gabapentin 600 mg tablet 600 mg PO BEDTIME 03/12/22 Previous Rx's Medication Instructions Recorded tamsulosin 0.4 mg capsule 0.4 mg PO DAILY 30 days #30 caps 09/04/21 baclofen 5 mg tablet 5 mg PO TID #30 tabs 10/10/21 dexlansoprazole 60 mg 60 mg PO DAILY #90 caps 01/21/22 capsule,biphase delayed release (Dexilant) sumatriptan succinate 100 mg 100 mg PO .COMPLEX #14 tabs 01/29/22 tablet (Imitrex) topiramate 50 mg tablet (Topamax) 50 mg PO DAILY #30 tabs 01/29/22 dicyclomine 20 mg tablet 20 mg PO QID 30 days #120 tabs 03/12/22 famotidine 40 mg tablet 40 mg PO BEDTIME #90 tabs 04/17/22 ondansetron HCl 4 mg tablet 4 mg PO BID PRN for nausea #60 tabs 05/13/22 Allergies Allergy/AdvReac Type Severity Reaction Status Date / Time cat dander [CATS] Allergy Unknown UNKNOWN Verified 03/12/22 08:52 dog dander [DOGS] Allergy Unknown UNKNOWN Verified 03/12/22 08:52 pollen extracts [POLLEN] Allergy Unknown UNKNOWN Verified 03/12/22 08:52 tree and shrub pollen Allergy sneeze Verified 03/12/22 08:52 [facility] Past Medical History Medical History Abdominal wall bulge Abnormal loss of weight Alcohol abuse Arthritis Asthma Balanitis Chronic back pain Depression Elevated blood pressure reading in office with diagnosis of hypertension Enlarged prostate Epidermal cyst Esophageal dysphagia Esophageal spasm Gout H/O ulcer disease High cholesterol History of anxiety History of depression History of panic attacks History of peptic ulcer disease Hx of insomnia Hx of irritable bowel syndrome Hypertension Incisional pain Left flank pain Lipoma of back Low back pain Marijuana use Multiple lipomas Multiple lipomas Osteoarthritis Pain in unspecified toe(s) Painful orthopaedic hardware Short frenulum of penis Slow urinary stream Thalamic pain syndrome Trochanteric bursitis, left hip Urinary retention Surgical History H/O breast surgery H/O neck surgery History of bunionectomy History of esophagogastroduodenoscopy (EGD) Hx of arthroscopy of left knee Hx of colonoscopy S/P excision of lipoma Family History Family History Family/Other Cancer Diabetes AIDS Brother Diabetes Myocardial infarction Father Enlarged prostate Mother Diabetes Asthma Social History Social History Are you a primary health care consultant to a significant other at home: No Do you presently have visiting nurse or other home services: No Alcohol intake: never Patient Tobacco Use Status: Current everyday Tobacco user Cigarettes Per Day: 6 Substance Use Type: Marijuana service: No Current occupational status: unemployed Physical Exam ED Vital Signs: Vital Signs - 24 hr 06/19/22 12:31 Temperature 98.1 F Pulse Rate 75 Respiratory Rate 18 Blood Pressure 108/59 L Pulse Oximetry 96 Oxygen Delivery Method Room Air BMI result Body Mass Index 28.3 Course Course Course Narrative: This is rapid medical exam. Deferred additional HPI, ROS, PE to primary provider. 56 yo male with past medical history of non-epileptic seizures, arthritis, HTN, bladder stimulator, GERD here with complaints of body aches, tactile temps, chills, headache, bilateral rib pain, chest pain, back pain, bilateral testicular pain/swelling, lower abdominal pain since yesterday. Will check labs, EKG, testing for flu/covid/rsv, CXR, UA, testicle US. VSS Medical Decision Making Lab Data Result Diagrams: 06/19/22 12:49 06/19/22 12:49 Labs: Lab Results 06/19/22 06/19/22 06/19/22 Range/Units 12:49 12:49 12:49 WBC 8.7 (4.8-10.8) X10*3/uL RBC 4.58 L (4.60-5.80) X10*6/uL Hgb 14.1 (14.0-18.0) g/dl Hct 42.9 (42.0-52.0) % MCV 93.7 (80.0-98.0) fL MCH 30.8 (27.0-33.0) pg MCHC 32.9 (31.0-36.0) g/dl RDW 13.8 (11.0-16.0) % Plt Count 285 (160-400) X10*3/uL MPV 9.4 (9.4-12.4) fL Immature Gran % (Auto) 0.2 (0.0-0.4) % Neut % (Auto) 69.7 (45-73) % Lymph % (Auto) 20.4 (20-40) % Spencer % (Auto) 8.7 (2-11) % Eos % (Auto) 0.8 (0-4) % Baso % (Auto) 0.2 (0-2) % Lymph # (Auto) 1.8 (1.2-4.9) X10*3/uL Spencer # (Auto) 0.8 (0.1-1.2) X10*3/uL Eos # (Auto) 0.1 (0.0-0.4) X10*3/uL Baso # (Auto) 0.0 (0.0-0.2) X10*3/uL Abs Immat Gran (auto) 0.02 (0.00-0.03) X10*3/uL Absolute Neuts (auto) 6.1 (2.0-8.3) x10*3/uL Absolute Nucleated RBC 0.000 (0.0-0.012) X10*3/uL Nucleated RBC % (auto) 0.0 (0.0-0.2) /100WBC PT (10.0-13.1) SEC INR (0.9-1.1) Sodium 140 (135-145) mmol/L Potassium 4.5 (3.3-5.1) mmol/L Chloride 107 (96-108) mmol/L Carbon Dioxide 25 (22-29) mmol/L Anion Gap 13 (12-20) BUN 14 (9-16) mg/dL Creatinine 1.16 (0.5-1.4) mg/dL Estim Creat Clear Calc 67.4 Estimated GFR > 60 Random Glucose 101 (60-115) mg/dL Calcium 9.7 (8.4-10.2) mg/dL Magnesium 2.0 (1.6-2.6) mg/dL Total Bilirubin 0.8 (0.0-1.0) mg/dL Direct Bilirubin 0.2 (0.0-0.5) mg/dL AST 13 (5-37) U/L ALT 17 (0-40) U/L Alkaline Phosphatase 65 (39-117) U/L Troponin I High Sens (<3.5-35.0) ng/L Total Protein 7.5 (6.5-8.0) g/dL Albumin 4.5 (3.5-5.0) g/dL Lipase 18 (8-78) U/L Influenza Type A (PCR) NEGATIVE (Negative) Influenza Type B (PCR) NEGATIVE (Negative) RSV RNA Qual (PCR) NEGATIVE (Negative) SARS-CoV-2 RNA (RT-PCR) NEGATIVE (Negative) 06/19/22 06/19/22 Range/Units 12:49 12:49 WBC (4.8-10.8) X10*3/uL RBC (4.60-5.80) X10*6/uL Hgb (14.0-18.0) g/dl Hct (42.0-52.0) % MCV (80.0-98.0) fL MCH (27.0-33.0) pg MCHC (31.0-36.0) g/dl RDW (11.0-16.0) % Plt Count (160-400) X10*3/uL MPV (9.4-12.4) fL Immature Gran % (Auto) (0.0-0.4) % Neut % (Auto) (45-73) % Lymph % (Auto) (20-40) % Spencer % (Auto) (2-11) % Eos % (Auto) (0-4) % Baso % (Auto) (0-2) % Lymph # (Auto) (1.2-4.9) X10*3/uL Spencer # (Auto) (0.1-1.2) X10*3/uL Eos # (Auto) (0.0-0.4) X10*3/uL Baso # (Auto) (0.0-0.2) X10*3/uL Abs Immat Gran (auto) (0.00-0.03) X10*3/uL Absolute Neuts (auto) (2.0-8.3) x10*3/uL Absolute Nucleated RBC (0.0-0.012) X10*3/uL Nucleated RBC % (auto) (0.0-0.2) /100WBC PT 11.3 (10.0-13.1) SEC INR 1.0 (0.9-1.1) Sodium (135-145) mmol/L Potassium (3.3-5.1) mmol/L Chloride (96-108) mmol/L Carbon Dioxide (22-29) mmol/L Anion Gap (12-20) BUN (9-16) mg/dL Creatinine (0.5-1.4) mg/dL Estim Creat Clear Calc Estimated GFR Random Glucose (60-115) mg/dL Calcium (8.4-10.2) mg/dL Magnesium (1.6-2.6) mg/dL Total Bilirubin (0.0-1.0) mg/dL Direct Bilirubin (0.0-0.5) mg/dL AST (5-37) U/L ALT (0-40) U/L Alkaline Phosphatase (39-117) U/L Troponin I High Sens < 3.5 (<3.5-35.0) ng/L Total Protein (6.5-8.0) g/dL Albumin (3.5-5.0) g/dL Lipase (8-78) U/L Influenza Type A (PCR) (Negative) Influenza Type B (PCR) (Negative) RSV RNA Qual (PCR) (Negative) SARS-CoV-2 RNA (RT-PCR) (Negative) Discharge Plan Discharge Clinical Impression: Chest pain Patient Disposition: Elopement Prescriptions: No Action tamsulosin 0.4 mg capsule 0.4 mg PO DAILY 30 Days Qty: 30 1RF Dexilant 60 mg capsule,biphase delayed releas 60 mg PO DAILY Qty: 90 1RF famotidine 40 mg tablet 40 mg PO BEDTIME Qty: 90 2RF ondansetron HCl 4 mg tablet 4 mg PO BID PRN (Reason: for nausea) Qty: 60 0RF multivitamin [Daily-Petra] Tablet 1 tab PO DAILY albuterol sulfate 2.5 mg /3 mL (0.083 %) solution for nebulization 1 vial inhalation QID Creon 3,000-9,500- 15,000 unit capsule,delayed release(DR/EC) 1 cap PO DAILY alprazolam 1 mg tablet 0.5 mg PO DAILY@1200 PRN (Reason: Anxiety) alprazolam 1 mg tablet 1 mg PO BID PRN (Reason: Anxiety) lisinopril 5 mg tablet 1 tab PO BID escitalopram oxalate 10 mg tablet 1 tab PO QAM baclofen 5 mg tablet 5 mg PO TID Qty: 30 0RF atorvastatin 20 mg tablet 20 mg PO DAILY oxycodone 15 mg tablet 15 mg PO Q6H cholecalciferol (vitamin D3) 50 mcg (2,000 unit) capsule 50 mcg PO DAILY Flovent HFA 220 mcg/actuation HFA aerosol inhaler 1 puff inhalation BID Combivent Respimat 20-100 mcg/actuation mist 1 puff inhalation QID fluoxetine 20 mg capsule 20 mg PO DAILY bupropion HCl 150 mg tablet sustained-release 12 hr 150 mg PO BID divalproex 500 mg tablet,delayed release (DR/EC) 1,000 mg PO BID gabapentin 600 mg tablet 600 mg PO BEDTIME dicyclomine 20 mg tablet 20 mg PO QID 30 Days Qty: 120 6RF topiramate [Topamax] 50 mg tablet 50 mg PO DAILY Qty: 30 6RF sumatriptan succinate [Imitrex] 100 mg tablet 100 mg PO .COMPLEX Qty: 14 3RF Rx Instructions: 100 mg orally; Discharge Date/Time: 06/19/22 19:15
[2022-06-19 12:31] VITALS: BP 108/59; PULSE 75; RESP 18; TEMP 36.7; O2SAT 96; BMI 28.3
[2022-06-19 12:55] LABS: MANUAL DIFF FLAG NO
[2022-06-19 12:57] LABS: Basophils Percent Auto 0.2 % (0-2); Eosinophils Absolute Auto 0.1 X10*3/uL (0.0-0.4); Eosinophils Percent Auto 0.8 % (0-4); Hematocrit 42.9 % (42.0-52.0); Hemoglobin 14.1 g/dl (14.0-18.0); Imm Gran Abs Auto 0.02 X10*3/uL (0.00-0.03); Imm Gran Pct Auto 0.2 % (0.0-0.4); Lymphocytes Absolute Auto 1.8 X10*3/uL (1.2-4.9); Lymphocytes Percent Auto 20.4 % (20-40); Mean Corpuscular HGB Conc 32.9 g/dl (31.0-36.0); Mean Corpuscular Hemoglobin 30.8 pg (27.0-33.0); Mean Corpuscular Volume 93.7 fL (80.0-98.0); Mean Platelet Volume 9.4 fL (9.4-12.4); Monocytes Absolute Auto 0.8 X10*3/uL (0.1-1.2); Monocytes Percent Auto 8.7 % (2-11); Neutrophils Absolute Auto 6.1 x10*3/uL (2.0-8.3); Neutrophils Percent Auto 69.7 % (45-73); Platelet Count 285 X10*3/uL (160-400); Red Blood Count 4.58 X10*6/uL (4.60-5.80); Red Cell Distribution Width 13.8 % (11.0-16.0); White Blood Count 8.7 X10*3/uL (4.8-10.8)
[2022-06-19 13:03] LABS: Prothrombin Time 11.3 SEC (10.0-13.1)
[2022-06-19 13:23] LABS: Troponin-I High Sensitivity < 3.5 ng/L (<3.5-35.0)
[2022-06-19 13:31] LABS: Alanine Aminotransferase 17 U/L (0-40); Albumin Level 4.5 g/dL (3.5-5.0); Alkaline Phosphatase 65 U/L (39-117); Anion Gap 13 (12-20); Aspartate Amino Transferase 13 U/L (5-37); Bilirubin Direct 0.2 mg/dL (0.0-0.5); Blood Urea Nitrogen 14 mg/dL (9-16); Calcium 9.7 mg/dL (8.4-10.2); Carbon Dioxide 25 mmol/L (22-29); Chloride 107 mmol/L (96-108); Creatinine Clr Calc Pharmacy 67.4; Estimated Glomerular Filt Rate > 60; Glucose Random 101 mg/dL (60-115); Lipase 18 U/L (8-78); Potassium 4.5 mmol/L (3.3-5.1); Sodium 140 mmol/L (135-145); Total Protein 7.5 g/dL (6.5-8.0)
[2022-06-19 13:37] LABS: Influenza A PCR NEGATIVE (Negative); Influenza B PCR NEGATIVE (Negative); Resp Syncy Virus RNA Qual PCR NEGATIVE (Negative); SARS COV2 PCR INHOUSE NEGATIVE (Negative)
[2022-06-19 14:27] LABS: Bilirubin Total 0.8 mg/dL (0.0-1.0)
== END 2022-06-19 19:15 | disposition left against medical advice (07) ==
PROVIDERS: Nurse Practitioner Family; Emergency Provider Emergency Medicine; PCP Internal Medicine
DX: R07.9 Chest pain, unspecified (principal); N48.89 Other specified disorders of penis; I10 Essential (primary) hypertension; E78.5 Hyperlipidemia, unspecified; F17.210 Nicotine dependence, cigarettes, uncomplicated; F12.90 Cannabis use, unspecified, uncomplicated; Z79.02 Long term (current) use of antithrombotics/antiplatelets; Z79.899 Other long term (current) drug therapy
CPT/HCPCS: 0241U; 36415; 71046; 76870; 80048; 80076; 83690; 83735; 84484; 85025; 85610; 93005; 99283; 99284

== ENCOUNTER 2022-06-26 09:53 | Outpatient (REF) | payer OTHER, SELFPAY ==
--- NOTE | ~2022-06-26 | XR_ITS ---
EXAMINATION: XR LUMBOSACRAL SPINE XR SACRUM AND COCCYX CLINICAL INFORMATION: Right lower quadrant pain. COMPARISON: CT scan of 10/03/2021. TECHNIQUE: Three-view lumbosacral spine and three-view sacrum and coccyx. FINDINGS: There are 5 [id number] lumbar vertebra with partial sacralization of L5 on the left. No acute fracture, spondylolisthesis, or spondylolysis is appreciated. There is significant narrowing of the L5-S1 disc space. No destructive bony lesions are identified. Pedicles appear intact. A right parasacral nerve stimulator is noted. Three views of the sacrum and coccyx again demonstrate sacralization with sclerosis at the L5 left aspect. No acute fracture of the sacrum or coccyx is identified. No suspicious destructive bony lesion is seen. No widening or fusion of the sacroiliac joint is appreciated. Right parasacral electrode is present. XR/XR lumbar spine 2-3V IMPRESSION: Degenerative disc disease L5-S1 level with partial sacralization on the left side of L5 with associated sclerosis.
--- NOTE | ~2022-06-26 | XR_ITS ---
EXAMINATION: XR LUMBOSACRAL SPINE XR SACRUM AND COCCYX CLINICAL INFORMATION: Right lower quadrant pain. COMPARISON: CT scan of 10/03/2021. TECHNIQUE: Three-view lumbosacral spine and three-view sacrum and coccyx. FINDINGS: There are 5 [id number] lumbar vertebra with partial sacralization of L5 on the left. No acute fracture, spondylolisthesis, or spondylolysis is appreciated. There is significant narrowing of the L5-S1 disc space. No destructive bony lesions are identified. Pedicles appear intact. A right parasacral nerve stimulator is noted. Three views of the sacrum and coccyx again demonstrate sacralization with sclerosis at the L5 left aspect. No acute fracture of the sacrum or coccyx is identified. No suspicious destructive bony lesion is seen. No widening or fusion of the sacroiliac joint is appreciated. Right parasacral electrode is present. XR/XR sacrum coccyx min 2V IMPRESSION: Degenerative disc disease L5-S1 level with partial sacralization on the left side of L5 with associated sclerosis.
[2022-06-26 11:30] LABS: Appearance Urine Clear; Color Urine Yellow; Glucose Urine UA Negative (Negative); Leukocyte Esterase Urine Trace (Negative); Nitrite Urine Negative (Negative); PH 6.5 (5.0-9.0); UMIC TRIGGER UACC YES; Urine Blood Negative (Negative); Urine Ketones Negative (Negative); Urine Protein Negative (Neg-Trace)
[2022-06-26 11:33] LABS: Bacteria Urine None Seen (None Seen); Hyaline Casts Urine 0-2 /LPF (0-2); RBC Urine 0-2 /HPF (0-2); Squamous Epithelial Cell Urine 0-2 /HPF (0-2); UACC Culture Trigger YES
== END 2022-06-26 09:54 | disposition home or self-care (01) ==
LOC: HO.XRAY 09:53
PROVIDERS: PCP Internal Medicine; Visit Provider Nurse Practitioner
DX: R10.31 Right lower quadrant pain (principal); R10.32 Left lower quadrant pain; K21.9 Gastro-esophageal reflux disease without esophagitis; K58.0 Irritable bowel syndrome with diarrhea; R11.2 Nausea with vomiting, unspecified; R33.9 Retention of urine, unspecified
CPT/HCPCS: 72100; 72220; 81001; 87086; 99212

== ENCOUNTER 2022-07-08 11:08 | Emergency (ER) | payer OTHER, SELFPAY ==
--- NOTE | ~2022-07-08 | XR_ITS ---
EXAMINATION: XR chest 2V CLINICAL INFORMATION: Generalized weakness COMPARISON: No prior chest x-ray available in our system for comparison at the time of this dictation. TECHNIQUE: XR chest 2V Lungs and Dorothy: Both lungs are clear. Pleura: Normal. Costophrenic angles are sharp. No pneumothorax. Heart: The heart is normal in size. Mediastinum: The mediastinum is within normal limits.. Bones: Skeletal structures included are normal for patient's age. XR/XR chest 2V IMPRESSION: No radiographic evidence of acute cardiopulmonary disease.
--- NOTE | ~2022-07-08 | XR_ITS ---
EXAMINATION: XR SHOULDER , RIGHT CLINICAL INFORMATION: Pain COMPARISON: None available at the time of this dictation. TECHNIQUE: AP external rotation, Grashey, scapular Y, and axillary views of the shoulder. FINDINGS: BONES: There is no fracture or dislocation, no osteolytic or osteoblastic lesion. JOINTS: Glenohumeral joint is properly positioned. There is mild degenerative osteoarthritis of the acromioclavicular joint. SOFT TISSUE AND INCLUDED LUNG: Normal. XR/XR shoulder RT min 2V IMPRESSION: Except for mild DJD of the AC joint, exam is normal.
--- NOTE | ~2022-07-08 | CT_ITS ---
EXAMINATION: CT CERVICAL SPINE WITHOUT CONTRAST CLINICAL INFORMATION: Reason for COMPARISON: October 03, 2021 TECHNIQUE: CT cervical spine with sagittal and coronal reconstructions This CT examination was performed using dose optimization techniques as appropriate, variously including the following: *Automated exposure control *Adjustment of mA and/or kV according to patient size (this includes techniques or standardized protocols for targeted exams where dose is matched to indication/reason for exam; i.e. extremities or head) *Use of iterative reconstruction technique DLP: 509.7 to mGy-cm FINDINGS: No abnormal prevertebral soft tissue swelling is seen. Paraspinal muscle fat planes are maintained. Patient status post previous anterior discectomy and cervical fusion at the C5-C6 level. Remainder of the disc spaces are maintained. Visualized lung apices unremarkable. Pterygoid plates intact. Temporomandibular joints unremarkable. Paranasal sinuses unremarkable. There is opacification of a few mastoid air cells bilaterally. CT/CT cervical spine wo IV con IMPRESSION: No acute cervical spine fracture. Fleischner guidelines were followed.
--- NOTE | ~2022-07-08 | CT_ITS ---
EXAMINATION: CT HEAD WITHOUT CONTRAST CLINICAL INFORMATION: Recent fall. COMPARISON: October 16, 2021 TECHNIQUE: Contiguous axial imaging was performed from the skull base to vertex without intravenous administration of contrast. This CT examination was performed using dose optimization techniques as appropriate, variously including the following: *Automated exposure control *Adjustment of mA and/or kV according to patient size (this includes techniques or standardized protocols for targeted exams where dose is matched to indication/reason for exam; i.e. extremities or head) *Use of iterative reconstruction technique DLP: 760.77 mGy-cm FINDINGS: No acute hemorrhage, abnormal extra-axial fluid collection, or significant mass effect or midline structure shift identified. Cheng-white matter interface is maintained. Ventricle sulci and cisterns appear unremarkable. Paranasal sinuses and mastoid air cells are well aerated. CT/CT head/brain wo IV con IMPRESSION: No acute intracranial pathology.
[2022-07-08 11:47] VITALS: BP 113/78; PULSE 85; RESP 16; TEMP 36.6; O2SAT 98; BMI 29.2
--- NOTE | 2022-07-08 11:47 | ED.GENADULT ---
HPI - General Adult General Chief complaint: Weakness Stated complaint: nausea fall shoulder inj Source: patient and family (Spouse) Mode of arrival: ambulatory Limitations: no limitations History of Present Illness HPI narrative: 56yoM c PMHx of migraines, history of possible seizures, depression and anxiety, hyperlipidemia, panic attacks, insomnia, hypertension, bladder stimulator presenting to the ED c c/o chills, fatigues, malaise, gen weakness, and tarry colored diarrhea for the past few days worse today. Pt also reports hes fell x 3 days ago and has right shoulder pain. Unsure if he hit his head or LOC. Not on blood thinner's. Reports he had a negative at home covid test. Marion reports that he had low blood pressure at home prior to arrival. And then took his blood pressure medication prior to arrival. MD complaint: multiple complaints Onset (ago): day(s) (days worse today) Related Data Home Medications Medication Instructions Recorded Confirmed cholecalciferol (vitamin D3) 50 50 mcg PO DAILY 05/22/20 10/08/21 mcg (2,000 unit) capsule fluticasone propionate 220 1 puff inhalation BID 05/22/20 10/08/21 mcg/actuation HFA aerosol inhaler (Flovent HFA) ipratropium 20 mcg-albuterol 100 1 puff inhalation QID 05/22/20 10/08/21 mcg/actuation mist for inhalation (Combivent Respimat) oxycodone 15 mg tablet 15 mg PO Q6H 05/22/20 10/08/21 atorvastatin 20 mg tablet 20 mg PO DAILY 07/05/20 10/08/21 albuterol sulfate 2.5 mg/3 mL 1 vial inhalation QID 07/19/20 10/08/21 (0.083 %) solution for nebulization multivitamin (Daily-Petra tablet) 1 tab PO DAILY 07/19/20 10/08/21 bupropion HCl 150 mg tablet,12 hr 150 mg PO BID 08/29/21 10/08/21 sustained-release divalproex 500 mg tablet,delayed 1,000 mg PO BID 08/29/21 10/08/21 release fluoxetine 20 mg capsule 20 mg PO DAILY 08/29/21 10/08/21 lipase 3,000-protease 1 cap PO DAILY 10/04/21 01/29/22 9,500-amylase 15,000 unit capsule, delayed rel (Creon) alprazolam 1 mg tablet 0.5 mg PO DAILY@1200 PRN Anxiety 10/08/21 10/08/21 alprazolam 1 mg tablet 1 mg PO BID PRN Anxiety 10/08/21 10/08/21 lisinopril 5 mg tablet 1 tab PO BID 10/08/21 10/08/21 gabapentin 600 mg tablet 600 mg PO BEDTIME 03/12/22 clotrimazole-betamethasone 1 appl topical 06/26/22 %-0.05 % topical cream econazole 1 % topical cream appl topical BID 06/26/22 escitalopram oxalate 20 mg tablet 20 mg PO QAM 06/26/22 magnesium oxide 400 mg (241.3 mg 400 mg PO DAILY 06/26/22 magnesium) tablet Previous Rx's Medication Instructions Recorded baclofen 5 mg tablet 5 mg PO TID #30 tabs 10/10/21 dexlansoprazole 60 mg 60 mg PO DAILY #90 caps 01/21/22 capsule,biphase delayed release (Dexilant) topiramate 50 mg tablet (Topamax) 50 mg PO DAILY #30 tabs 01/29/22 dicyclomine 20 mg tablet 20 mg PO QID 30 days #120 tabs 03/12/22 famotidine 40 mg tablet 40 mg PO BEDTIME #90 tabs 04/17/22 ondansetron HCl 4 mg tablet 4 mg PO BID PRN for nausea #60 tabs 05/13/22 sumatriptan succinate 100 mg 100 mg PO .COMPLEX #14 tabs 06/26/22 tablet (Imitrex) tamsulosin 0.4 mg capsule 0.4 mg PO DAILY 30 days #30 caps 06/26/22 Allergies Allergy/AdvReac Type Severity Reaction Status Date / Time cat dander [CATS] Allergy Unknown UNKNOWN Verified 06/26/22 10:00 dog dander [DOGS] Allergy Unknown UNKNOWN Verified 06/26/22 10:00 pollen extracts [POLLEN] Allergy Unknown UNKNOWN Verified 06/26/22 10:00 tree and shrub pollen Allergy sneeze Verified 06/26/22 10:00 Review of Systems Review of Systems: Constitutional : No Weight loss, + Fever, + Chills, No Night Sweats, + Fatigue, + Malaise ENT/Mouth : No Hearing loss, No Ear Pain, No Nasal Congestion, No Sinus Pain, No Hoarseness, No sore throat, No Rhinorrhea, No Swallowing Difficulty Eyes: No Eye Pain, No Swelling, No Redness, No Foreign Body, No Discharge, No Vision Changes Cardiovascular : No Chest Pain, No SOB, No Dyspnea on Exertion, No Orthopnea, No Edema, No Palpitations Respiratory : No Cough, No Sputum, No Wheezing, No Smoke Exposure, No Dyspnea Gastrointestinal : No Nausea, No Vomiting, + Diarrhea, No Constipation, No abdominal Pain, No Hematochezia, No Melena Genitourinary : no irregular bleeding, No Dysuria, No Urinary Frequency, No Hematuria, No Urinary Incontinence, No Urgency, No Flank Pain, No Urinary Flow Changes, No Hesitancy Musculoskeletal : No joint pain, No Myalgias, No Joint Swelling Skin : No Skin Lesions, No rash Neuro : + Weakness, No Numbness, No Paresthesias, No Loss of Consciousness, No Dizziness, No Headache Psych : No Anxiety/Panic, No Depression, No SI/HI/AH/VH, No Social Issues, Heme/Lymph: No Bruising, No Bleeding,No Lymphadenopathy Endocrine : No Polyuria, No Polydipsia, No Temperature Intolerance Yes all other systems are reviewed and are negative PMFSH Past Medical History Attestation statement: The following information was validated with the patient. Source: old records reviewed, obtained from family and nursing notes reviewed Medical History Abdominal wall bulge Abnormal loss of weight Alcohol abuse Arthritis Asthma Balanitis Chronic back pain Depression Elevated blood pressure reading in office with diagnosis of hypertension Enlarged prostate Epidermal cyst Esophageal dysphagia Esophageal spasm Gout H/O ulcer disease High cholesterol History of anxiety History of depression History of panic attacks History of peptic ulcer disease Hx of insomnia Hx of irritable bowel syndrome Hypertension Incisional pain Left flank pain Lipoma of back Low back pain Marijuana use Multiple lipomas Multiple lipomas Osteoarthritis Pain in unspecified toe(s) Painful orthopaedic hardware Short frenulum of penis Slow urinary stream Thalamic pain syndrome Trochanteric bursitis, left hip Urinary retention Surgical History H/O breast surgery H/O neck surgery History of bunionectomy History of esophagogastroduodenoscopy (EGD) Hx of arthroscopy of left knee Hx of colonoscopy S/P excision of lipoma Family History Family History Family/Other Cancer Diabetes AIDS Brother Diabetes Myocardial infarction Father Enlarged prostate Mother Diabetes Asthma Social History Social History Are you a primary career development associate to a significant other at home: No Do you presently have visiting nurse or other home services: No Alcohol intake: never Patient Tobacco Use Status: Current everyday Tobacco user Cigarettes Per Day: 6 Substance Use Type: Marijuana Advance Directives: Yes Advance Directives Information Provided: No Advance Directives on File: No service: No Current occupational status: unemployed Physical Exam ED Vital Signs: BMI result Body Mass Index 29.2 vital signs have been reviewed as normal and appeared to be correct. Blood pressure normal. Heart rate normal. Respiration rate normal. Temperature normal. Oxygen saturation normal. Appearance: Alert. Oriented X3. No acute distress. Head: Normal external exam. Normocephalic. Atraumatic. Eyes: PERRLA. EOMI. Conjunctiva and sclera normal. Eyelids normal. ENT: EAC normal. TM's Normal. Pharynx normal. Uvula midline. Moist mucous membranes. No lesions/ulcerations or masses noted on the tongue. Normal voice. No trismus noted. No drooling noted. No muffled voice noted. Neck: Normal inspection. Neck supple. FROM. No adenopathy. Thyroid Normal. No tracheal deviation noted. No crepitus is noted. No meningeal signs. No neck mass noted. No signs of trauma noted. CVS: Normal heart rate and rhythm. Heart sound normal. Pulses normal throughout. No murmurs/rales/gallops. Respiratory: No respiratory distress. Painless inspiration. Breath sounds normal. No wheezes/rales/rhonchi noted. Chest nontender. No crepitus is noted. No signs of trauma noted. No accessory muscle usage noted or decreased air movement noted. No signs of trauma. Abdomen: Soft and nontender. Bowel sounds normal in all 4 quadrants. No distention noted. No organomegaly noted. No visible injury noted. Back: No CVA tenderness. Full range of motion noted. Nontender. No signs of trauma. Patient neuro intact bilaterally and distally on all 4 extremities. Patient's reflexes intact bilaterally and distally on all 4 extremities. No rashes/lesion/induration/fluctuance or signs of infection noted. Skin: Skin warm and dry. Normal skin color. Normal skin turgor. No rashes/lesions/lacerations noted. Extremities: No lower extremity edema. No calf tenderness is noted. Extremities exhibit normal range of motion and nontender. Neuro: Oriented X 3. No motor deficit. No sensory deficit. Reflexes normal. Normal steady gait. No focal neuro deficits noted. CN's II-XII intact bilaterally? Vascular: + radial pulses/+ 2 distal pedal pulses/+2 dorsalis pedis b/l. Normal cap refill. No cyanosis noted to upper extremity nails and lower extremity toes nails. Course Course Course Narrative: [id number]-11:[id number] 56yoM c PMHx of migraines, history of possible seizures, depression and anxiety, hyperlipidemia, panic attacks, insomnia, hypertension, bladder stimulator presenting to the ED c c/o chills, fatigues, malaise, gen weakness, and tarry colored diarrhea for the past few days worse today. Pt also reports hes fell x 3 days ago and has right shoulder pain. Unsure if he hit his head or LOC. Not on blood thinner's. Reports he had a negative at home covid test. Marion reports that he had low blood pressure at home prior to arrival. And then took his blood pressure medication prior to arrival. Plan: Will obtain labs, EKG, CT scan of brain/cervical spine, right shoulder and chest x-ray, COVID/RSV/flu swab, UA. Patient is stable to go back to the waiting room to be evaluated in the main ED. Reevaluation(s) Reevaluation #1: Labs were obtained reviewed all labs are within normal limits. Patient noted to be influenza positive type A. Negative for COVID/RSV. CT scan of brain within normal limits no acute processes were noted. Cervical spine CT scan negative for any acute processes. Right shoulder x-ray revealed degenerative changes of the AC joint otherwise no other acute processes noted. Chest x-ray within normal limits no acute processes noted. Pt eloped before told results. Medical Decision Making Lab Data MDM Lab Attestation statement: I reviewed the patient's lab results. 07/08/22 12:05 07/08/22 12:05 Labs: Lab Results 07/08/22 07/08/22 07/08/22 Range/Units 12:05 12:05 12:05 WBC 5.1 (4.8-10.8) X10*3/uL RBC 4.69 (4.60-5.80) X10*6/uL Hgb 14.4 (14.0-18.0) g/dl Hct 43.8 (42.0-52.0) % MCV 93.4 (80.0-98.0) fL MCH 30.7 (27.0-33.0) pg MCHC 32.9 (31.0-36.0) g/dl RDW 13.6 (11.0-16.0) % Plt Count 214 (160-400) X10*3/uL MPV 9.8 (9.4-12.4) fL Immature Gran % (Auto) 0.4 (0.0-0.4) % Neut % (Auto) 64.0 (45-73) % Lymph % (Auto) 20.0 (20-40) % [place] % (Auto) 15.2 H (2-11) % Eos % (Auto) 0.2 (0-4) % Baso % (Auto) 0.2 (0-2) % Lymph # (Auto) 1.0 L (1.2-4.9) X10*3/uL [place] # (Auto) 0.8 (0.1-1.2) X10*3/uL Eos # (Auto) 0.0 (0.0-0.4) X10*3/uL Baso # (Auto) 0.0 (0.0-0.2) X10*3/uL Abs Immat Gran (auto) 0.02 (0.00-0.03) X10*3/uL Absolute Neuts (auto) 3.3 (2.0-8.3) x10*3/uL Absolute Nucleated RBC 0.000 (0.0-0.012) X10*3/uL Nucleated RBC % (auto) 0.0 (0.0-0.2) /100WBC PT 11.5 (10.0-13.1) SEC INR 1.0 (0.9-1.1) Sodium (135-145) mmol/L Potassium (3.3-5.1) mmol/L Chloride (96-108) mmol/L Carbon Dioxide (22-29) mmol/L Anion Gap (12-20) BUN (9-16) mg/dL Creatinine (0.5-1.4) mg/dL Estim Creat Clear Calc Estimated GFR Random Glucose (60-115) mg/dL Calcium (8.4-10.2) mg/dL Magnesium (1.6-2.6) mg/dL Total Bilirubin (0.0-1.0) mg/dL AST (5-37) U/L ALT (0-40) U/L Alkaline Phosphatase (39-117) U/L Total Protein (6.5-8.0) g/dL Albumin (3.5-5.0) g/dL Influenza Type A (PCR) POSITIVE A (Negative) Influenza Type B (PCR) NEGATIVE (Negative) RSV RNA Qual (PCR) NEGATIVE (Negative) SARS-CoV-2 RNA (RT-PCR) NEGATIVE (Negative) 07/08/22 Range/Units 12:05 WBC (4.8-10.8) X10*3/uL RBC (4.60-5.80) X10*6/uL Hgb (14.0-18.0) g/dl Hct (42.0-52.0) % MCV (80.0-98.0) fL MCH (27.0-33.0) pg MCHC (31.0-36.0) g/dl RDW (11.0-16.0) % Plt Count (160-400) X10*3/uL MPV (9.4-12.4) fL Immature Gran % (Auto) (0.0-0.4) % Neut % (Auto) (45-73) % Lymph % (Auto) (20-40) % [place] % (Auto) (2-11) % Eos % (Auto) (0-4) % Baso % (Auto) (0-2) % Lymph # (Auto) (1.2-4.9) X10*3/uL [place] # (Auto) (0.1-1.2) X10*3/uL Eos # (Auto) (0.0-0.4) X10*3/uL Baso # (Auto) (0.0-0.2) X10*3/uL Abs Immat Gran (auto) (0.00-0.03) X10*3/uL Absolute Neuts (auto) (2.0-8.3) x10*3/uL Absolute Nucleated RBC (0.0-0.012) X10*3/uL Nucleated RBC % (auto) (0.0-0.2) /100WBC PT (10.0-13.1) SEC INR (0.9-1.1) Sodium 139 (135-145) mmol/L Potassium 4.4 (3.3-5.1) mmol/L Chloride 107 (96-108) mmol/L Carbon Dioxide 23 (22-29) mmol/L Anion Gap 13 (12-20) BUN 14 (9-16) mg/dL Creatinine 1.35 (0.5-1.4) mg/dL Estim Creat Clear Calc 58.7 Estimated GFR 55 Random Glucose 116 H (60-115) mg/dL Calcium 9.2 (8.4-10.2) mg/dL Magnesium 2.0 (1.6-2.6) mg/dL Total Bilirubin 0.5 (0.0-1.0) mg/dL AST 19 D (5-37) U/L ALT 19 (0-40) U/L Alkaline Phosphatase 65 (39-117) U/L Total Protein 7.3 (6.5-8.0) g/dL Albumin 4.3 (3.5-5.0) g/dL Influenza Type A (PCR) (Negative) Influenza Type B (PCR) (Negative) RSV RNA Qual (PCR) (Negative) SARS-CoV-2 RNA (RT-PCR) (Negative) Independent Interpretation Interpretation: CT scan of brain without contrast FINDINGS: No acute hemorrhage, abnormal extra-axial fluid collection, or significant mass effect or midline structure shift identified. Cheng-white matter interface is maintained. Ventricle sulci and cisterns appear unremarkable. Paranasal sinuses and mastoid air cells are well aerated. ? CT/CT head/brain wo IV con IMPRESSION: No acute intracranial pathology. CT scan of cervical spine without contrast FINDINGS: No abnormal prevertebral soft tissue swelling is seen. Paraspinal muscle fat planes are maintained. Patient status post previous anterior discectomy and cervical fusion at the C5-C6 level. Remainder of the disc spaces are maintained. Visualized lung apices unremarkable. Pterygoid plates intact. Temporomandibular joints unremarkable. Paranasal sinuses unremarkable. There is opacification of a few mastoid air cells bilaterally. CT/CT cervical spine wo IV con IMPRESSION: No acute cervical spine fracture.? ? Fleischner guidelines were followed. Right shoulder xray FINDINGS:? BONES: There is no fracture or dislocation, no osteolytic or osteoblastic lesion. JOINTS: Glenohumeral joint is properly positioned. There is mild degenerative osteoarthritis of the acromioclavicular joint. SOFT TISSUE AND INCLUDED LUNG: Normal.? XR/XR shoulder RT min 2V IMPRESSION:? Except for mild DJD of the AC? joint, exam is normal. CXR TECHNIQUE: XR chest 2V Lungs and Dorothy: Both lungs are clear. Pleura: Normal. Costophrenic angles are sharp. No pneumothorax. Heart: The heart is normal in size. Mediastinum: The mediastinum is within normal limits.. Bones: Skeletal structures included are normal for patient's age. XR/XR chest 2V IMPRESSION: No radiographic evidence of acute cardiopulmonary disease. Radiology Impression Discussion of test interpretation with radiology: I have reviewed the radiologist's reading. Independent Historian Clinical information obtained from an independent historian. History obtained from or confirmed by: Spouse External Record Review External record reviewed: Inpatient record, Office record, Outpatient record, Prior outpatient labs, Prior outpatient radiology, Primary care record and Outside ED record Discharge Plan Discharge Clinical Impression: Influenza A, Degenerative arthritis of right shoulder region, Fall Patient Disposition: Elopement Prescriptions: No Action Dexilant 60 mg capsule,biphase delayed releas 60 mg PO DAILY Qty: 90 1RF famotidine 40 mg tablet 40 mg PO BEDTIME Qty: 90 2RF ondansetron HCl 4 mg tablet 4 mg PO BID PRN (Reason: for nausea) Qty: 60 0RF multivitamin [Daily-Petra] Tablet 1 tab PO DAILY albuterol sulfate 2.5 mg /3 mL (0.083 %) solution for nebulization 1 vial inhalation QID Creon 3,000-9,500- 15,000 unit capsule,delayed release(DR/EC) 1 cap PO DAILY alprazolam 1 mg tablet 0.5 mg PO DAILY@1200 PRN (Reason: Anxiety) alprazolam 1 mg tablet 1 mg PO BID PRN (Reason: Anxiety) lisinopril 5 mg tablet 1 tab PO BID baclofen 5 mg tablet 5 mg PO TID Qty: 30 0RF atorvastatin 20 mg tablet 20 mg PO DAILY oxycodone 15 mg tablet 15 mg PO Q6H cholecalciferol (vitamin D3) 50 mcg (2,000 unit) capsule 50 mcg PO DAILY Flovent HFA 220 mcg/actuation HFA aerosol inhaler 1 puff inhalation BID Combivent Respimat 20-100 mcg/actuation mist 1 puff inhalation QID fluoxetine 20 mg capsule 20 mg PO DAILY bupropion HCl 150 mg tablet sustained-release 12 hr 150 mg PO BID divalproex 500 mg tablet,delayed release (DR/EC) 1,000 mg PO BID gabapentin 600 mg tablet 600 mg PO BEDTIME dicyclomine 20 mg tablet 20 mg PO QID 30 Days Qty: 120 6RF topiramate [Topamax] 50 mg tablet 50 mg PO DAILY Qty: 30 6RF magnesium oxide 400 mg (241.3 mg magnesium) tablet 400 mg PO DAILY escitalopram oxalate 20 mg tablet 20 mg PO QAM econazole 1 % cream topical BID clotrimazole-betamethasone 1-0.05 % cream topical sumatriptan succinate [Imitrex] 100 mg tablet 100 mg PO .COMPLEX Qty: 14 3RF Rx Instructions: 100 mg orally; tamsulosin 0.4 mg capsule 0.4 mg PO DAILY 30 Days Qty: 30 3RF Discharge Date/Time: 07/08/22 15:35
[2022-07-08 11:51] VITALS: BP 106/77
--- NOTE | 2022-07-08 11:51 | ECG_ITS ---
Test Reason : weakness Blood Pressure : / mmHG Vent. Rate : 065 BPM Atrial Rate : 065 BPM P-R Int : 150 ms QRS Dur : 074 ms QT Int : 384 ms P-R-T Axes : 057 -02 041 degrees QTc Int : 399 ms Normal sinus rhythm Normal ECG When compared with ECG of 19-JUN-2022 12:07, No significant change was found Referred By: Heather Walters Electronically Signed By:MAXIMO RIOS
[2022-07-08 12:12] LABS: Basophils Percent Auto 0.2 % (0-2); Eosinophils Percent Auto 0.2 % (0-4); Hematocrit 43.8 % (42.0-52.0); Hemoglobin 14.4 g/dl (14.0-18.0); Imm Gran Abs Auto 0.02 X10*3/uL (0.00-0.03); Imm Gran Pct Auto 0.4 % (0.0-0.4); MANUAL DIFF FLAG NO; Mean Corpuscular HGB Conc 32.9 g/dl (31.0-36.0); Mean Corpuscular Hemoglobin 30.7 pg (27.0-33.0); Mean Corpuscular Volume 93.4 fL (80.0-98.0); Mean Platelet Volume 9.8 fL (9.4-12.4); Monocytes Absolute Auto 0.8 X10*3/uL (0.1-1.2); Monocytes Percent Auto 15.2 % (2-11); Neutrophils Absolute Auto 3.3 x10*3/uL (2.0-8.3); Platelet Count 214 X10*3/uL (160-400); Red Blood Count 4.69 X10*6/uL (4.60-5.80); Red Cell Distribution Width 13.6 % (11.0-16.0); White Blood Count 5.1 X10*3/uL (4.8-10.8)
[2022-07-08 12:17] LABS: Prothrombin Time 11.5 SEC (10.0-13.1)
[2022-07-08 12:26] LABS: Alanine Aminotransferase 19 U/L (0-40); Albumin Level 4.3 g/dL (3.5-5.0); Alkaline Phosphatase 65 U/L (39-117); Anion Gap 13 (12-20); Aspartate Amino Transferase 19 U/L (5-37); Bilirubin Total 0.5 mg/dL (0.0-1.0); Blood Urea Nitrogen 14 mg/dL (9-16); Calcium 9.2 mg/dL (8.4-10.2); Carbon Dioxide 23 mmol/L (22-29); Chloride 107 mmol/L (96-108); Creatinine Clr Calc Pharmacy 58.7; Estimated Glomerular Filt Rate 55; Glucose Random 116 mg/dL (60-115); Potassium 4.4 mmol/L (3.3-5.1); Sodium 139 mmol/L (135-145); Total Protein 7.3 g/dL (6.5-8.0)
[2022-07-08 13:10] LABS: Influenza A PCR POSITIVE (Negative); Influenza B PCR NEGATIVE (Negative); Resp Syncy Virus RNA Qual PCR NEGATIVE (Negative); SARS COV2 PCR INHOUSE NEGATIVE (Negative)
== END 2022-07-08 15:35 | disposition left against medical advice (07) ==
PROVIDERS: Physician Assistant Medical; Emergency Provider Emergency Medicine
DX: J11.1 Influenza due to unidentified influenza virus with other respiratory manifestations (principal); M19.011 Primary osteoarthritis, right shoulder; Z91.81 History of falling; Z20.822 Contact with and (suspected) exposure to COVID-19; F17.210 Nicotine dependence, cigarettes, uncomplicated; F12.90 Cannabis use, unspecified, uncomplicated
CPT/HCPCS: 0241U; 36415; 70450; 71046; 72125; 73030; 80053; 83735; 85025; 85610; 93005; 99283; 99284

== ENCOUNTER → 2022-07-17 09:54 | Outpatient (BNVA) | payer OTHER, SELFPAY | PROVIDERS: PCP Internal Medicine; Referring Provider Internal Medicine; Visit Provider Internal Medicine | DX: R07.9 Chest pain, unspecified (principal) | CPT/HCPCS: 99202 ==

== ENCOUNTER → 2022-08-06 10:29 | Outpatient (BNVA) | payer OTHER, SELFPAY | PROVIDERS: PCP Internal Medicine; Visit Provider Nurse Practitioner | DX: K58.0 Irritable bowel syndrome with diarrhea (principal); K21.9 Gastro-esophageal reflux disease without esophagitis; R10.33 Periumbilical pain; R13.12 Dysphagia, oropharyngeal phase; G43.909 Migraine, unspecified, not intractable, without status migrainosus; Q76.49 Other congenital malformations of spine, not associated with scoliosis | CPT/HCPCS: 99212 ==

== ENCOUNTER → 2022-08-29 09:58 | Outpatient (BNVA) | payer OTHER, SELFPAY | PROVIDERS: PCP Registered Nurse; Visit Provider Hospitalist | DX: J44.9 Chronic obstructive pulmonary disease, unspecified (principal); R22.2 Localized swelling, mass and lump, trunk; G47.33 Obstructive sleep apnea (adult) (pediatric); R07.9 Chest pain, unspecified; B02.29 Other postherpetic nervous system involvement | CPT/HCPCS: 99202 ==

== ENCOUNTER 2022-09-05 06:53 | Day surgery (SDC) | payer OTHER, SELFPAY ==
[2022-09-02 09:35] VITALS: BMI 29.2
--- NOTE | 2022-09-04 10:40 | P.CONAN_ITS ---
Documented by User: Karena Hermosillo NP 09/04/22 10:48 HPI - Anesthesia Eval Consult details Narrative: 56yo M for Bronchoscopy Fiberoptic PMFSH Active Problems Active Problems: All Active Problems (Updated 09/04/22 @ 07:38 by Cookie Joy, DARIANA) Abdominal mass (Acute) GERD (gastroesophageal reflux disease) (Acute) Irritable bowel syndrome with diarrhea (Acute) Nausea and vomiting (Acute) Migraines (Acute) Dyspnea (Acute) Inguinal pain of both sides (Acute) Seizure (Acute) Seizure (Acute) Headache (Acute) Photophobia (Acute) Periumbilical abdominal pain (Acute) Syncope (Acute) Chest pain (Acute) Oropharyngeal dysphagia (Acute) Sacralization of lumbar vertebra (Acute) Mass in chest (Acute) STEPHON (obstructive sleep apnea) (Acute) COPD (chronic obstructive pulmonary disease) (Acute) Chest pain (Acute) Post herpetic neuralgia (Acute) Multiple lipomas (Acute) Urinary retention (Acute) Past Medical History Medical History Abdominal wall bulge Abnormal loss of weight Alcohol abuse Arthritis Asthma Balanitis Chest pain Chronic back pain COPD (chronic obstructive pulmonary disease) Elevated blood pressure reading in office with diagnosis of hypertension Enlarged prostate Epidermal cyst Esophageal dysphagia Esophageal spasm Gout H/O ulcer disease High cholesterol History of anxiety History of depression History of panic attacks History of peptic ulcer disease Hx of insomnia Hx of irritable bowel syndrome Hypertension Incisional pain Left flank pain Lipoma of back Marijuana use Multiple lipomas STEPHON (obstructive sleep apnea) Osteoarthritis Pain in unspecified toe(s) Painful orthopaedic hardware Post herpetic neuralgia Short frenulum of penis Slow urinary stream Thalamic pain syndrome Trochanteric bursitis, left hip Urinary retention Family History Family History Family/Other Cancer Diabetes AIDS Brother Diabetes Myocardial infarction Father Enlarged prostate Mother Diabetes Asthma Surgical History Surgical History (Updated 09/02/22 @ 09:20 by Regina Magana RN) H/O breast surgery H/O neck surgery History of bunionectomy History of esophagogastroduodenoscopy (EGD) Hx of arthroscopy of left knee Hx of colonoscopy S/P excision of lipoma S/P placement of nerve stimulator Social History Social History Are you a primary manager critical care unit to a significant other at home: No Do you presently have visiting nurse or other home services: No Alcohol intake: never Patient Tobacco Use Status: Current everyday Tobacco user Cigarettes Per Day: 4 Substance Use Type: Marijuana Are you DNR?: No Advance Directives: No Advance Directives Information Provided: Yes Nutrition Risks: No Nutritional Risk service: No Current occupational status: unemployed Meds Allergies Allergy/AdvReac Type Severity Reaction Status Date / Time cat dander [CATS] Allergy Unknown UNKNOWN Verified 09/05/22 07:27 dog dander [DOGS] Allergy Unknown UNKNOWN Verified 09/05/22 07:27 pollen extracts [POLLEN] Allergy Unknown UNKNOWN Verified 09/05/22 07:27 tree and shrub pollen Allergy sneeze Verified 09/05/22 07:27 ibuprofen AdvReac causes Verified 09/05/22 07:27 stomach to bleed Home Medications Medication Instructions Recorded Confirmed Last Taken Type cholecalciferol (vitamin D3) 50 50 mcg PO DAILY 05/22/20 09/02/22 10/07/21 History mcg (2,000 unit) capsule fluticasone propionate 220 1 puff inhalation BID 05/22/20 09/02/22 10/07/21 History mcg/actuation HFA aerosol inhaler (Flovent HFA) ipratropium 20 mcg-albuterol 100 1 puff inhalation QID 05/22/20 09/02/22 10/07/21 History mcg/actuation mist for inhalation (Combivent Respimat) oxycodone 15 mg tablet 15 mg PO Q6H 05/22/20 09/02/22 10/07/21 History atorvastatin 20 mg tablet 20 mg PO DAILY 07/05/20 09/02/22 10/07/21 History albuterol sulfate 2.5 mg/3 mL 1 vial inhalation QID 07/19/20 09/02/22 10/07/21 History (0.083 %) solution for nebulization multivitamin (Daily-Petra tablet) 1 tab PO DAILY 07/19/20 09/02/22 10/07/21 History divalproex 500 mg tablet,delayed 1,000 mg PO BID 08/29/21 09/02/22 10/07/21 History release fluoxetine 20 mg capsule 20 mg PO DAILY 08/29/21 09/02/22 10/07/21 History alprazolam 1 mg tablet 1 mg PO BID PRN Anxiety 10/08/21 09/02/22 09/05/22 History gabapentin 600 mg tablet 600 mg PO BEDTIME 03/12/22 09/02/22 Unknown History escitalopram oxalate 20 mg tablet 20 mg PO QAM 06/26/22 09/02/22 Unknown History magnesium oxide 400 mg (241.3 mg 400 mg PO DAILY 06/26/22 09/02/22 Unknown History magnesium) tablet lisinopril 5 mg tablet 10 mg PO BID 07/17/22 09/02/22 09/05/22 History nebulizers 08/29/22 Unknown History Exam Exam Date and Time: September 04, 2022 1040 Height,Weight and Vital Signs: Height 5 ft 4 in Weight 77.111 kg Pertinent Lab Results Pertinent Lab Results: Laboratory Tests 07/08/22 07/08/22 12:05 12:05 WBC 5.1 Hgb 14.4 Hct 43.8 Plt Count 214 Sodium 139 Potassium 4.4 Chloride 107 Carbon Dioxide 23 BUN 14 Creatinine 1.35 Narrative Narrative: EKG 07/2022 Vent. Rate : 065 BPM ? ? Atrial Rate : 065 BPM ?? P-R Int : 150 ms? QRS Dur : 074 ms ? ? QT Int : 384 ms ? ? ? P-R-T Axes : 057 -02 041 degrees ?? QTc Int : 399 ms ? Normal sinus rhythm Normal ECG When compared with ECG of 19-JUN-2022 12:07, No significant change was found Pharmacological stress perfusion imaging from 2018 showed normal perfusion.? Normal gated LVEF is 67%. Coronary CTA 08/2022 1. Excellent quality exam with no significant stenosis. Mild, smooth stenosis in the proximal subsegment of the distal LAD due to superficial myocardial bridge, approx 25%. Minimal stenosis in mid circumflex (less than 25%) and mild noncalcified stenosis in the proximal portion of a large left PDA (approx 25%) 2. Abnormal masslike thickening versus mucus in the distal left mainstem bronch and extending into the left lower lob bronchus. Recommend dedicated chest CT for further assessment. 3. Incidentally noted 1.2 cm peripherally enhancing lesion in the left lob of liver and present in 2012 c/w bening process, most likely cavernous hemangioma. 4. 1.1 cm R adrenal nodule stable since 2013 Assessment and Plan Assessment Anesthesia Assessment: Chart Reviewed Documented by User: Kieran Gramajo MD 09/05/22 07:43 [facility] Past Medical History Medical History Abdominal wall bulge Abnormal loss of weight Alcohol abuse Arthritis Asthma Balanitis Chest pain Chronic back pain COPD (chronic obstructive pulmonary disease) Elevated blood pressure reading in office with diagnosis of hypertension Enlarged prostate Epidermal cyst Esophageal dysphagia Esophageal spasm Gout H/O ulcer disease High cholesterol History of anxiety History of depression History of panic attacks History of peptic ulcer disease Hx of insomnia Hx of irritable bowel syndrome Hypertension Incisional pain Left flank pain Lipoma of back Marijuana use Multiple lipomas STEPHON (obstructive sleep apnea) Osteoarthritis Pain in unspecified toe(s) Painful orthopaedic hardware Post herpetic neuralgia Short frenulum of penis Slow urinary stream Thalamic pain syndrome Trochanteric bursitis, left hip Urinary retention Family History Family History Family/Other Cancer Diabetes AIDS Brother Diabetes Myocardial infarction Father Enlarged prostate Mother Diabetes Asthma Family history of problems with anesthesia: No Surgical History Surgical History (Updated 09/02/22 @ 09:20 by Regina Magana RN) H/O breast surgery H/O neck surgery History of bunionectomy History of esophagogastroduodenoscopy (EGD) Hx of arthroscopy of left knee Hx of colonoscopy S/P excision of lipoma S/P placement of nerve stimulator History of Problems with Anesthesia: No Social History Social History Are you a primary manager critical care unit to a significant other at home: No Do you presently have visiting nurse or other home services: No Alcohol intake: never Patient Tobacco Use Status: Current everyday Tobacco user Cigarettes Per Day: 4 Substance Use Type: Marijuana Are you DNR?: No Advance Directives: No Advance Directives Information Provided: Yes Nutrition Risks: No Nutritional Risk service: No Current occupational status: unemployed Meds Allergies Allergy/AdvReac Type Severity Reaction Status Date / Time cat dander [CATS] Allergy Unknown UNKNOWN Verified 09/05/22 07:27 dog dander [DOGS] Allergy Unknown UNKNOWN Verified 09/05/22 07:27 pollen extracts [POLLEN] Allergy Unknown UNKNOWN Verified 09/05/22 07:27 tree and shrub pollen Allergy sneeze Verified 09/05/22 07:27 ibuprofen AdvReac causes Verified 09/05/22 07:27 stomach to bleed Home Medications Medication Instructions Recorded Confirmed Last Taken Type cholecalciferol (vitamin D3) 50 50 mcg PO DAILY 05/22/20 09/02/22 10/07/21 History mcg (2,000 unit) capsule fluticasone propionate 220 1 puff inhalation BID 05/22/20 09/02/22 10/07/21 History mcg/actuation HFA aerosol inhaler (Flovent HFA) ipratropium 20 mcg-albuterol 100 1 puff inhalation QID 05/22/20 09/02/22 10/07/21 History mcg/actuation mist for inhalation (Combivent Respimat) oxycodone 15 mg tablet 15 mg PO Q6H 05/22/20 09/02/22 10/07/21 History atorvastatin 20 mg tablet 20 mg PO DAILY 07/05/20 09/02/22 10/07/21 History albuterol sulfate 2.5 mg/3 mL 1 vial inhalation QID 07/19/20 09/02/22 10/07/21 History (0.083 %) solution for nebulization multivitamin (Daily-Petra tablet) 1 tab PO DAILY 07/19/20 09/02/22 10/07/21 History divalproex 500 mg tablet,delayed 1,000 mg PO BID 08/29/21 09/02/22 10/07/21 History release fluoxetine 20 mg capsule 20 mg PO DAILY 08/29/21 09/02/22 10/07/21 History alprazolam 1 mg tablet 1 mg PO BID PRN Anxiety 10/08/21 09/02/22 09/05/22 History gabapentin 600 mg tablet 600 mg PO BEDTIME 03/12/22 09/02/22 Unknown History escitalopram oxalate 20 mg tablet 20 mg PO QAM 06/26/22 09/02/22 Unknown History magnesium oxide 400 mg (241.3 mg 400 mg PO DAILY 06/26/22 09/02/22 Unknown History magnesium) tablet lisinopril 5 mg tablet 10 mg PO BID 07/17/22 09/02/22 09/05/22 History nebulizers 08/29/22 Unknown History Exam Airway Mallampati Class: II TM Dist: >3cm Neck ROM: Limited Denture: Upper Heart: rrr Lungs: cta Assessment and Plan Final Anesthetic Review Family History of Problems with Anesthesia: No History of Problems with Anesthesia: No NPO: Yes ASA Class: III Final Preanesthetic Review: No Changes in Pt Med Stat, Meds/Allgs Chart Reviewed and Consent Obtained/Reviewed Patient Risk: Intermediate Procedure Risk: Intermediate Anesthetic Plan Anesthetic Plan: GA Disposition: Standard PACU
[2022-09-05] VITALS (7 sets, daily range): BP systolic 111–124; BP diastolic 62–77; PULSE 54–69; RESP 11–18; TEMP 36.3–36.6; O2SAT 93–97
[2022-09-05] MEDS: Lactated Ringers 1,000 ML 100 ML IVCONT (07:15)
--- NOTE | 2022-09-05 08:23 | MHC.SHP ---
Pre-Procedural Eval Section A Date of Service: 09/05/22 The patient is an INPATIENT: No Changes since office visit: No Cold of Flu in the past 2 weeks, No New Medical Problems, No Changes in Medication and No Patient answered all questions The History & Physical has been completed within 30 days and I have reviewed it.: Yes Section B Chief Complaint: Other nonspecific abnormal finding of lung field Allergies: Allergies Allergy/AdvReac Type Severity Reaction Status Date / Time cat dander [CATS] Allergy Unknown UNKNOWN Verified 09/05/22 07:27 dog dander [DOGS] Allergy Unknown UNKNOWN Verified 09/05/22 07:27 pollen extracts [POLLEN] Allergy Unknown UNKNOWN Verified 09/05/22 07:27 tree and shrub pollen Allergy sneeze Verified 09/05/22 07:27 ibuprofen AdvReac causes Verified 09/05/22 07:27 stomach to bleed Plan I have reviewed the history and physical and performed a pertinent physical examination on my patient. No changes have occurred unless specified. Time Spent With Patient Time: Total time managing care of this patient today ____ minutes.
--- NOTE | 2022-09-05 09:09 | P.BOP_ITS ---
Brief Operative Note Date of Service: 09/05/22 Pre-op diagnosis: endobronchial lesion Post-op diagnosis: other (bronchitis, bronchomalecia, laryngitis, vocal cord polypoid density) Procedure: bronchoscopy with biopsies, brushings, washings Implants: Surgeon: Javier Maldonado MD Anesthesia: GLMA Was an Insurance Claims Specialist used for this Procedure?: No Estimated blood loss (mL): 0 Pathology: other (LMS endobronchial lesion) Condition: stable Disposition: same day
--- NOTE | 2022-09-05 13:47 | OP_ITS ---
SURGEON: Javier Maldonado MD PREOPERATIVE DIAGNOSIS: Endobronchial lesion. POSTOPERATIVE DIAGNOSIS: Bronchitis, bronchomalacia along with laryngitis and small polypoid density on the vocal cord. PROCEDURE PERFORMED: ESTIMATED BLOOD LOSS: COMPLICATIONS: ANESTHESIA: LMA. ASSISTANTS: SPECIMENS: ASA CLASSIFICATION: 2. DESCRIPTION OF PROCEDURE: After the patient was adequately sedated, LMA in place, flexible digital bronchoscope was inserted by LMA to level of the larynx. The larynx was inflamed throughout. His vocal cords also were inflamed and they appeared to be some small white polypoid density on the right vocal cord. After instilling lidocaine, the bronchoscope was then passed to vocal cord to the level of the trachea which appeared completely patent. After instilling additional lidocaine, the bronchoscope was navigated to the entire tracheobronchial tree. There was mild to severe mucoid secretions throughout the airways with significant friability and erythema of the airways bilaterally. The patient also had evidence of bronchomalacia. No endobronchial lesions noted. Some irritability and inflammatory changes to the mucosa lining, but no overt evidence of any endobronchial lesion per se. Using a micro brush, it was introduced into left lower lobe and sent to microbiology. Also cytologic brush was then brushed into the left lower lobe area where he had the endobronchial abnormality on the CAT scan and that was sent for cytology. Using forceps, couple of endobronchial biopsies were collected from the left mainstem bronchus area. That was placed in formalin for pathology. Using saline bronchial washings were introduced to all the segments and removing mucus plugs and removing mucoid secretions bilaterally. At the end of procedures, no evidence of any active bleeding. The patient reached good hemostasis after the biopsies with just iced saline. The bronchoscope was then removed. The total endoscopic time was approximately 12 minutes. Patient tolerated the procedure well, vital signs were stable throughout the procedure. Complications are none. Estimated bleeding, none. INTERPRETATION: Successful bronchoscopy with endobronchial biopsies, micro and cytologic brushings and bilateral washings. Evidence of bronchitis and bronchomalacia as well as the vocal cord lesion, but no evidence of any endobronchial lesions to be concerned with at this time. HEARING AIDE TECHNICIAN: None. MD ENRIQUETA Curtis/ROLAND / [phone]
== END 2022-09-05 10:37 | disposition home or self-care (01) ==
PROVIDERS: Visit Provider Hospitalist
PROC: 0BJ08ZZ Inspection of Tracheobronchial Tree, Via Natural or Artificial Opening Endoscopic (ICD-10-PCS; CPT 31622; principal; 2022-09-05 08:30)
DX: J40 Bronchitis, not specified as acute or chronic (principal); J98.09 Other diseases of bronchus, not elsewhere classified; J38.1 Polyp of vocal cord and larynx; J04.0 Acute laryngitis; J44.9 Chronic obstructive pulmonary disease, unspecified; G47.33 Obstructive sleep apnea (adult) (pediatric); M54.9 Dorsalgia, unspecified; G89.0 Central pain syndrome; B02.29 Other postherpetic nervous system involvement; I10 Essential (primary) hypertension; R63.4 Abnormal weight loss; Z68.29 Body mass index [BMI] 29.0-29.9, adult; R40.0 Somnolence; Z79.51 Long term (current) use of inhaled steroids; Z79.899 Other long term (current) drug therapy; Z88.8 Allergy status to other drugs, medicaments and biological substances; F17.210 Nicotine dependence, cigarettes, uncomplicated; F12.90 Cannabis use, unspecified, uncomplicated
CPT/HCPCS: 31625; 31623; 87070; 87077; 87116; 87186; 87205; 87206; 88112; 88305; J0171; J2250; J3010

== ENCOUNTER → 2022-09-23 09:52 | Outpatient (BNVA) | payer OTHER, SELFPAY | PROVIDERS: PCP Registered Nurse; Visit Provider Surgery | DX: D17.1 Benign lipomatous neoplasm of skin and subcutaneous tissue of trunk (principal) | CPT/HCPCS: 99212 ==

== ENCOUNTER → 2022-09-24 08:54 | Outpatient (REF) | payer OTHER, SELFPAY | LOC: HO.SL 08:54 | PROVIDERS: PCP Registered Nurse; Visit Provider Hospitalist | DX: G47.33 Obstructive sleep apnea (adult) (pediatric) (principal) | CPT/HCPCS: 95806 ==

== ENCOUNTER → 2022-10-07 08:58 | Outpatient (BNVA) | payer OTHER, MEDICAID, SELFPAY | PROVIDERS: PCP Registered Nurse; Visit Provider Orthopaedic Surgery | DX: M25.511 Pain in right shoulder (principal) | CPT/HCPCS: 99202 ==

== ENCOUNTER → 2022-10-11 13:05 | Outpatient (BNVA) | payer OTHER, SELFPAY | PROVIDERS: PCP Registered Nurse; Visit Provider Hospitalist | DX: G47.33 Obstructive sleep apnea (adult) (pediatric) (principal); J44.9 Chronic obstructive pulmonary disease, unspecified; R07.9 Chest pain, unspecified; R22.2 Localized swelling, mass and lump, trunk | CPT/HCPCS: 99212 ==

== ENCOUNTER 2022-10-14 08:37 | Outpatient (REF) | payer OTHER, SELFPAY | END 2022-10-14 08:38 | disposition home or self-care (01) | LOC: HO.HOSX 08:37 | PROVIDERS: Visit Provider Orthopaedic Surgery | DX: D17.1 Benign lipomatous neoplasm of skin and subcutaneous tissue of trunk (principal) | CPT/HCPCS: 11402 ==

== ENCOUNTER 2022-10-14 11:38 | Outpatient (REF) | payer OTHER, SELFPAY | END 2022-10-14 11:39 | disposition home or self-care (01) | LOC: HO.LNP 11:38 | PROVIDERS: Visit Provider Surgery | DX: D17.1 Benign lipomatous neoplasm of skin and subcutaneous tissue of trunk (principal) | CPT/HCPCS: 88304 ==

== ENCOUNTER → 2022-11-13 22:17 | Outpatient (REF) | payer OTHER, SELFPAY | LOC: HO.SL 22:17 | PROVIDERS: PCP Registered Nurse; Visit Provider Hospitalist | DX: G47.33 Obstructive sleep apnea (adult) (pediatric) (principal) | CPT/HCPCS: 95810 ==

== ENCOUNTER 2023-02-17 10:30 | Outpatient (AMB) | payer OTHER, SELFPAY ==
--- NOTE | 2023-02-17 10:47 | A.OFFVIS_ITS ---
Intake Vital Signs 02/17/23 10:52 Height 5 ft 4 in Weight 176 lb 8 oz BMI 30.3 BP 126/72 Blood Pressure Location Rt brachial Position Sitting Respiration 16 Pulse 76 Pulse Source Pulse Oximeter Pulse Oximetry (%) 96 Oxygen Delivery Method Room Air Intake Visit Reasons: Tendinitis of left rotator cuff Allergies cat dander [CATS] Allergy (Unknown, Verified 02/17/23 10:48) UNKNOWN dog dander [DOGS] Allergy (Unknown, Verified 02/17/23 10:48) UNKNOWN pollen extracts [POLLEN] Allergy (Unknown, Verified 02/17/23 10:48) UNKNOWN tree and shrub pollen Allergy (Verified 02/17/23 10:48) sneeze ibuprofen Adverse Reaction (Verified 02/17/23 10:48) causes stomach to bleed HPI HPI Comments History of Present Illness Details Zain is very pleasant 57 years old gentleman who is in my office with abhilash ramos on pain all over the body. He reports pain in the neck ability to turn his head due to pain to the right side he reports pain in bilateral shoulders pain in bilateral forearms and wrists and pain in bilateral knees. He also reports pain in the back. He reports pain all over the body. He reports pain is severe enough and 9/10. He is unable to sleep normally because of his pain cannot do activities of daily living, he can take care of himself but he cannot function normally. He is retired individual. His self mobile. With a changes aggravates his pain. Cold application make his pain less intense. He reports that he had surgery on his cervical spine with 3 the bones in his neck replaced by ?plastic ?. He also reports that he received some injections in [facility] for his lower back pain. He also reports that [facility] urologist implanted sacral stimulator for him to treat neurogenic bladder. It might be that he developed neurogenic bladder in the past due to spinal stenosis. He reports significant urinary retention, his Medtron[employer] sacral stimulation helps him to urinate. In terms of tissue damage he reports his pain is tingling, stinging, punishing, killing.. He reports significant ?charley horse ?spastic sensation in bilateral forearms and bilateral lower legs and calfs. He does not remember when he had any imaging studies of the cervical spine or lumbar spine. He tried in the past acupuncture home traction unit and physical therapy in the attempt to alleviate his pain in the neck as well as pain in the back. In the past he received multiple injections from [facility] to address the pain in lower back. He reports some unknown injections on the neck help migraines. He reports that his Medtr[employer] device needs MRI field adjustment in the order to receive the images however it is not contraindicated for him to go for MRI machine with his Medtron[employer] device. 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 Most likely those a cysts. Past surgical history is significant as above with anterior ACDF as well as sacral stimulation. Social history he admits smoking cigarettes denies drinking alcohol admits using recreational drugs but denies addiction. Possibly he refers this to oxycodone 15 mg he receives for treatment of pain. [facility] Medical History Abdominal wall bulge Abnormal loss of weight Alcohol abuse Arthritis Asthma Balanitis Chest pain Chronic back pain COPD (chronic obstructive pulmonary disease) Elevated blood pressure reading in office with diagnosis of hypertension Enlarged prostate Epidermal cyst Esophageal dysphagia Esophageal spasm Gout H/O ulcer disease High cholesterol History of anxiety History of depression History of panic attacks History of peptic ulcer disease Hx of insomnia Hx of irritable bowel syndrome Hypertension Incisional pain Left flank pain Lipoma of back Lipoma of back Marijuana use Multiple lipomas STEPHON (obstructive sleep apnea) Osteoarthritis Pain in unspecified toe(s) Painful orthopaedic hardware Post herpetic neuralgia Short frenulum of penis Slow urinary stream Thalamic pain syndrome Trochanteric bursitis, left hip Urinary retention Surgical History H/O breast surgery H/O neck surgery History of bunionectomy History of esophagogastroduodenoscopy (EGD) Hx of arthroscopy of left knee Hx of colonoscopy S/P excision of lipoma S/P placement of nerve stimulator Family History Family/Other Cancer Diabetes AIDS Brother Diabetes Myocardial infarction Father Enlarged prostate Mother Diabetes Asthma Social History Are you a primary before and after school daycare worker to a significant other at home: No Do you presently have visiting nurse or other home services: No Alcohol intake: never Patient Tobacco Use Status: Current everyday Tobacco user Cigarettes Per Day: 4 Substance Use Type: Marijuana service: No Current occupational status: unemployed Review of Systems Const Reports no additional complaints ENT Reports Normal hearing present Card Reports as per HPI Resp Reports as per HPI and Reports other Musc Reports as per HPI Neuro Reports as per HPI, Reports Normal hearing present, Denies Abnormal speech present, Denies confusion and Denies Sensory deficit (Neuro) Psych Reports no additional complaints and Denies confusion Physical Exam Vital Signs: Last Vital Signs Pulse 76 02/17/23 10:52 Resp 16 02/17/23 10:52 BP 126/72 02/17/23 10:52 Pulse Ox 96 02/17/23 10:52 Oxygen Delivery Method Room Air 02/17/23 10:52 BMI result Body Mass Index 30.3 Const General: no acute distress; No confusion Orientation/consciousness: patient oriented x3 and No confusion Eyes General: appearance normal, both eyes and all related structures Pupils: Equal, round and reactive pupils present EOM: EOMs intact bilaterally Neck Neck: Yes full ROM Chest Chest palpation & inspection: normal inspection of the chest Resp Effort & Inspection: normal respiratory effort, able to speak in complete sentences, normal respiratory pattern, no audible wheezes and no cough Cardio Jugular venous distension: no JVD GI Inspection: Yes normal to inspection Neuro General: patient oriented x3, gait normal and No confusion Cranial nerves: Yes CN's II-XII intact bilaterally, Yes Equal, round and reactive pupils present, Yes Normal hearing present and Yes Ability to bilaterally elevate shoulders present Speech: No Abnormal speech present Gait exam (Neuro): Normal gait present Motor exam (neuro): 5/5 motor strength present throughout Sensory Exam: No Sensory deficit (Neuro) Extrem General: No pedal edema Psych Speech and movement: Normal speech and movement present Affect: normal affect Attitude: cooperative Thought process: Normal thought process present Thought content: Normal thought content present Insight: Good insight present (Psych) Judgement: Good judgement present (Psych) Assessment & Plan Assessment & Plan (1) Postlaminectomy syndrome, cervical: Code(s): M96.1 - Postlaminectomy syndrome, not elsewhere classified (2) Neurogenic bladder: Code(s): N31.9 - Neuromuscular dysfunction of bladder, unspecified (3) Chronic pain syndrome: Code(s): G89.4 - Chronic pain syndrome (4) On high dose opioid drug therapy: Code(s): Z79.899 - Other intermediate school teacher (current) drug therapy Plan Her same is suffering from postlaminectomy syndrome cervical spine. I suspect his conditions are related to postlaminectomy syndrome foremost. Possibility exists that his neurogenic bladder is also stemming out from prior spinal stenosis for which he received unknown procedure in the cervical spine. The neck and back pains are related most likely to disc degeneration and spondylosis. Possibility exists that spastic sensations are related to calcium and magnesium deficiency. He is suffering from obstructive sleep apnea. With chronic acidification of the blood possibility exists of low calcium and low magnesium levels. Plan of care: 1. I will send him for MRI of the cervical spine to evaluate of the position of the hardware and the nature of the procedure he had before. This will be with and without contrast. The BMP order will be entered as well. 2. I will send the medical information release request to [facility] neuro surgery as well as to [email or web address] to find out what procedures the patient had in those organizations. 3. I recommend him to calcium gluconate and magnesium glycinate supplements from the pharmacy and start taking those medications twice a day. 4. I will see this patient in 1 month. Orders: Orders MR cervical spine wo/w con Today G89.4 - Chronic pain syndrome, M96.1 - Postlaminectomy syndrome, not elsewhere classified, N31.9 - Neuromuscular dysfunction of bladder, unspecified Basic Metabolic Panel Today G89.4 - Chronic pain syndrome, M96.1 - Postlaminectomy syndrome, not elsewhere classified, N31.9 - Neuromuscular dysfunction of bladder, unspecified, Z79.899 - Other long-term (current) drug therapy Coding Level of Care Code New Pt Level 4 (91844) Diagnoses Postlaminectomy syndrome, cervical M96.1 Neurogenic bladder N31.9 Chronic pain syndrome G89.4 On high dose opioid drug therapy Z79.899
[2023-02-17 10:52] VITALS: BP 126/72; PULSE 76; RESP 16; O2SAT 96; BMI 30.3
== END 2023-02-17 11:20 | disposition home or self-care (01) ==
PROVIDERS: PCP Registered Nurse; Visit Provider Anesthesiology
DX: M96.1 Postlaminectomy syndrome, not elsewhere classified (principal); N31.9 Neuromuscular dysfunction of bladder, unspecified; G89.4 Chronic pain syndrome; Z79.899 Other long term (current) drug therapy
CPT/HCPCS: 99204

== ENCOUNTER → 2023-02-17 10:30 | Outpatient (BNVA) | payer OTHER, SELFPAY | PROVIDERS: PCP Registered Nurse; Visit Provider Anesthesiology | DX: M96.1 Postlaminectomy syndrome, not elsewhere classified (principal); G89.4 Chronic pain syndrome; M75.102 Unspecified rotator cuff tear or rupture of left shoulder, not specified as traumatic; N31.9 Neuromuscular dysfunction of bladder, unspecified; Z79.891 Long term (current) use of opiate analgesic | CPT/HCPCS: 99202 ==

== ENCOUNTER 2023-04-29 07:49 | Outpatient (AMB) | payer OTHER, SELFPAY ==
--- NOTE | 2023-04-29 08:11 | MHC.OFFVIS ---
Intake Vital Signs 04/29/23 08:14 Height 5 ft 4 in Weight 169 lb 12.095 oz BMI 29.1 BP 144/68 H Blood Pressure Location Lt brachial Position Sitting Pulse 60 Pulse Source Pulse Oximeter Pulse Oximetry (%) 95 Oxygen Delivery Method Room Air Intake Visit Reasons: follow up PT has 3 N/S in a row Intake Note: Pt presents to the office today for a follow up. Pt states he has been having trouble with nausea but denies any vomiting or diarrhea. Pt states he has severe acid reflux which is worse after eating. Allergies cat dander [CATS] Allergy (Unknown, Verified 04/29/23 08:16) UNKNOWN dog dander [DOGS] Allergy (Unknown, Verified 04/29/23 08:16) UNKNOWN pollen extracts [POLLEN] Allergy (Unknown, Verified 04/29/23 08:16) UNKNOWN tree and shrub pollen Allergy (Verified 04/29/23 08:16) sneeze ibuprofen Adverse Reaction (Verified 04/29/23 08:16) causes stomach to bleed HPI follow up PT has 3 N/S in a row HPI Details Assessment & Plan (1) Irritable bowel syndrome with diarrhea: ?Code(s): K58.0 - Irritable bowel syndrome with diarrhea ?Plan: My stomach has been F'ed up. He has been having a lot of watery diarrhea, but then he will go back to formed stools. I encourage him to use his dicyclomine, but with discussion he feels it is stress mediated and he is not taking his creon. He just brought his sister up for MA who was in an abusive relationship. He is having oropharyngeal dysphagia of pills - BUT not grinding and taking them all in one handful. Advised to grind/open pills and use with applesauce or pudding etc. He wanted zofran for this, but this is not actually a nausea problem, more of a gag reflux problem; therefore I do not think Zofran is a good solution to this problem as it would not prevent him from choking and protecting his airway.? We may want to consider an endoscopy depending on his results from this study. CHILD's continue, referring to neurology. Triptans work ,but was taking them every night. Needs better migraine prevention, failed topamax. Has neck problems as well - but needs to r/o more serious problems. We review the x-rays and I think is groin pain really is from the sacralization of L5 with the coccyx which does controlled pain in the general perirectal area including the scrotum. He has a lot of problems but has had revolving PCP's at [facility] and then not getting anywhere. He continues on his Dexilant and famotidine for GERD, dicyclomine and Creon for diarrhea and has Zofran but I think he is using it inappropriately for an early activated gag reflux. ROV 6 mos. (2) GERD (gastroesophageal reflux disease): ?Code(s): K21.9 - Gastro-esophageal reflux disease without esophagitis (3) Periumbilical abdominal pain: ?Code(s): R10.33 - Periumbilical pain (4) Migraines: ?Code(s): G43.909 - Migraine, unspecified, not intractable, without status migrainosus (5) Oropharyngeal dysphagia: ?Code(s): R13.12 - Dysphagia, oropharyngeal phase (6) Sacralization of lumbar vertebra: ?Comment: With sclerosis on the right side, could account for his groin pain ?Code(s): Q76.49 - Other congenital malformations of spine, not associated with scoliosis ? ? ? Orders: Orders [place] barium swallow modified Today R13.12 - Dysphagia , oropharyngeal ph ase ? Referrals Neurology Referral ? G43.909 - Migraine , unspecified, not intractable, with out status migrain osus ? Medications: New ptnvca-zbqqholk-xg ylase 24,000-76,00 0 -120,000 unit (C reon) ?? administe r with meals and/o r snacks 1 cap? PO QID 30 d ays 120 caps 3RF K58.9 - Irritable bowel syndrome wit hout diarrhea ? Refilled dexlansoprazole (D exilant) 60 mg? PO DAILY 90 caps 1RF ? ? famotidine 40 mg? PO BEDTIME 90 tabs 2RF K21.9 - Gastro-eso phageal reflux dis ease without esoph agitis ? dicyclomine 20 mg? PO QID 30 d ays 120 tabs 6RF R10.33 - Periumbil ical pain ? sumatriptan succin ate (Imitrex) ?100 mg orally;? 14 tabs 3RF G43.909 - Migraine , unspecified, not intractable, with out status migrain osus ? BARIUM SWALLOW. ? TODAYS VISIT His diarrhea has subsided and he is now passing soft stool. He feels that the creon was helpful. He continues on his Dexilant and famotidine for GERD, dicyclomine. He has not been to see me because his father , his sister came up and really messed up all my doctor appts. Apparently, she tried also to put him on Medminder and hes medicines were frequently late and he would have withdrawal. He moved it all back to [facility]. Multiple ortho problems, head numb, carpal spasms if raises arms, CP. Like to go out in the winter usually snow bird go down because needs coordinate all of He has not yet been contacted about barium swallow appears that it was not to order on call pharmacy technician Return office 6 months PFS Medical History Lipoma of back STEPHON (obstructive sleep apnea) COPD (chronic obstructive pulmonary disease) Chest pain Post herpetic neuralgia Multiple lipomas Osteoarthritis Gout History of peptic ulcer disease Hx of irritable bowel syndrome Chronic back pain Hx of insomnia History of panic attacks History of anxiety History of depression Asthma High cholesterol Hypertension Urinary retention Enlarged prostate Arthritis Slow urinary stream Marijuana use Alcohol abuse H/O ulcer disease Left flank pain Trochanteric bursitis, left hip Epidermal cyst Abdominal wall bulge Esophageal dysphagia Esophageal spasm Short frenulum of penis Balanitis Lipoma of back Elevated blood pressure reading in office with diagnosis of hypertension Thalamic pain syndrome Abnormal loss of weight Painful orthopaedic hardware Pain in unspecified toe(s) Incisional pain Surgical History S/P placement of nerve stimulator Hx of arthroscopy of left knee H/O neck surgery H/O breast surgery S/P excision of lipoma History of bunionectomy History of esophagogastroduodenoscopy (EGD) Hx of colonoscopy Family History Family/Other Cancer Diabetes AIDS Brother Diabetes Myocardial infarction Father Enlarged prostate Mother Diabetes Asthma Social History Are you a primary social worker palliative care to a significant other at home: No Do you presently have visiting nurse or other home services: No Alcohol intake: never Patient Tobacco Use Status: Current everyday Tobacco user Cigarettes Per Day: 4 Substance Use Type: Marijuana service: No Current occupational status: unemployed Review of Systems Const Reports fatigue, Denies fever(s), Reports headache(s), Denies night sweats, Denies poor appetite and Denies weight loss Eyes Details: glasses Reports requires corrective lenses ENT Denies Normal hearing present, Denies dental pain, Reports dysphagia, Reports dizziness, Reports headache(s), Reports hearing loss (right ear), Denies mouth pain, Reports neck pain, Denies odynophagia, Denies throat swelling, Denies tongue swelling and Reports other (Dentition adequate) Card Reports chest pain Resp Reports no additional complaints GI Denies abdominal pain, Denies melena, Denies bloating, Denies hematochezia, Denies constipation, Denies GI cramping, Reports dysphagia, Denies excessive flatus, Denies early satiety, Reports heartburn, Reports diarrhea, Reports nausea, Denies odynophagia, Reports vomiting and Denies hematemesis Musc Reports abnormal gait, Reports myalgias, Reports arthralgias, Reports neck pain, Reports numbness and Reports stiffness Skin/Breast Denies pruritus, Denies lesions, Denies rash and Denies jaundice Neuro Details: Carpal spasm Denies Normal hearing present, Denies Abnormal speech present, Reports abnormal gait, Reports dizziness, Reports headache(s), Reports numbness, Reports Other visual disturbances and Reports paresthesias Endo Reports fatigue Aller/Immun Denies throat swelling and Denies tongue swelling Physical Exam Vital Signs: Last Vital Signs Pulse 60 04/29/23 08:14 BP 144/68 H 04/29/23 08:14 Pulse Ox 95 04/29/23 08:14 Oxygen Delivery Method Room Air 04/29/23 08:14 BMI result Body Mass Index 29.1 Const General: cooperative, no acute distress, well developed and well groomed Nutritional Appearance: well nourished and overweight Orientation/consciousness: oriented to person, oriented to place and oriented to time Limitations: No language barrier and ambulation with cane HEENT Head: Yes normocephalic and Yes atraumatic Eyes General: appearance normal, both eyes and all related structures Pupils: Equal, round and reactive pupils present Neck Neck: Yes normal visual inspection and Yes no lymphadenopathy Thyroid: Thyroid normal Resp Effort & Inspection: normal respiratory effort and able to speak in complete sentences Auscultation: clear to auscultation bilaterally Cardio Rate: regular rate Rhythm: regular rhythm Heart sounds: Normal, physiologic split S2 sound present Peripheral pulses: radial pulses present and posterior tibial pulses present GI Inspection: No distended and No Abdominal panniculus present Palpation (GI): Soft to palpation, nontender, no guarding, not rigid and No hepatosplenomegaly present Percussion: Yes normal to percussion Auscultation: normal bowel sounds Rectal Exam - Male: Yes deferred Skin General skin exam: no rashes or lesions noted, turgor normal, skin not dry, no jaundice, No spider nevi and no striae Rashes: no rashes Nails: normal Neuro General: oriented to person, oriented to place and oriented to time Cranial nerves: Yes Equal, round and reactive pupils present and No Normal hearing present Speech: No Abnormal speech present Extrem General: Yes normal to inspection, No clubbing, No cyanosis and No edema Psych Appearance: grossly normal and well kempt Mental Status: mental status grossly normal Speech and movement: Pressured speech present Affect: Anxious affect present Attitude: cooperative Thought process: not confabulating and Perseverating thought process present Thought content: Normal thought content present Insight: Limited insight present (Psych) Judgement: Limited judgement present (Psych) Assessment & Plan Assessment & Plan (1) GERD (gastroesophageal reflux disease): Code(s): K21.9 - Gastro-esophageal reflux disease without esophagitis (2) Irritable bowel syndrome with diarrhea: Code(s): K58.0 - Irritable bowel syndrome with diarrhea (3) Periumbilical abdominal pain: Code(s): R10.33 - Periumbilical pain Plan BARIUM SWALLOW. ? TODAYS VISIT His diarrhea has subsided and he is now passing soft stool. He feels that the creon was helpful. He continues on his Dexilant and famotidine for GERD, dicyclomine. He has not been to see me because his father , his sister came up and really messed up all my doctor appts. Apparently, she tried also to put him on Medminder and hes medicines were frequently late and he would have withdrawal. He moved it all back to [facility]. Multiple ortho problems, head numb, carpal spasms if raises arms, CP. Like to go out in the winter usually snow bird go down because needs coordinate all of He has not yet been contacted about barium swallow appears that it was not to order on call pharmacy technician Return office 6 months Medications: Refilled dexlansoprazole 60 mg PO DAILY 90 caps 1RF dexlansoprazole 60 mg PO DAILY 90 caps 1RF famotidine 40 mg PO BEDTIME 90 tabs 2RF K21.9 - Gastro-esophageal reflux disease without esophagitis evozwl-vxwliexa-hvjafxz 24,000-76,000 -120,000 unit (Creon) administer with meals and/or snacks 1 cap PO QID 120 caps 3RF 30 days K58.9 - Irritable bowel syndrome without diarrhea famotidine 40 mg PO BEDTIME 90 tabs 2RF K21.9 - Gastro-esophageal reflux disease without esophagitis itdugg-yvznyofe-qycxmjs 24,000-76,000 -120,000 unit (Creon) administer with meals and/or snacks 1 cap PO QID 120 caps 3RF 30 days K58.9 - Irritable bowel syndrome without diarrhea ondansetron HCl 4 mg PO BID PRN 60 tabs 0RF for nausea Coding Level of Care Code Est Pt Level 3 (19537) Diagnoses GERD (gastroesophageal reflux disease) K21.9 Irritable bowel syndrome with diarrhea K58.0 Periumbilical abdominal pain R10.33
[2023-04-29 08:14] VITALS: BP 144/68; PULSE 60; O2SAT 95; BMI 29.1
== END 2023-04-29 09:01 | disposition home or self-care (01) ==
PROVIDERS: PCP Registered Nurse; Visit Provider Nurse Practitioner
DX: K21.9 Gastro-esophageal reflux disease without esophagitis (principal); K58.0 Irritable bowel syndrome with diarrhea; R10.33 Periumbilical pain
CPT/HCPCS: 99213

== ENCOUNTER → 2023-04-29 07:49 | Outpatient (BNVA) | payer OTHER, SELFPAY | PROVIDERS: PCP Registered Nurse; Visit Provider Nurse Practitioner | DX: K21.9 Gastro-esophageal reflux disease without esophagitis (principal); K58.0 Irritable bowel syndrome with diarrhea; R10.33 Periumbilical pain | CPT/HCPCS: 99212 ==

== ENCOUNTER 2023-10-01 09:29 | Emergency (ER) | payer OTHER, SELFPAY ==
--- NOTE | ~2023-10-01 | US_ITS ---
EXAMINATION: US VENOUS ULTRASOUND WITH DOPPLER LOWER EXTREMITY, LEFT CLINICAL INFORMATION: Calf tender pain behind left knee COMPARISON: Ultrasound lower extremity venous Doppler bilateral/2018 TECHNIQUE: Ultrasound of the deep veins is performed from the hip to the calf with compression sonography and color and pulse Doppler assessment. Spectral analysis with color-flow imaging is performed. FINDINGS: There is normal venous compression and respiratory variation and augmented flow. The visualized common femoral vein, superficial femoral vein, profunda femoral vein, popliteal vein, and the trifurcation region shows no evidence of deep venous thrombosis. There is no significant popliteal fossa cyst. If the patient's symptoms persist, followup ultrasound in 5 days 7 days might be of value to exclude proximal propagation from a non-visualized calf vein. US/US venous duplex LE IMPRESSION: No DVT demonstrated in the left lower extremity.
[2023-10-01 10:18] VITALS: BP 117/84; PULSE 80; RESP 18; TEMP 36.4; O2SAT 98; BMI 29.2
--- NOTE | 2023-10-01 11:10 | ED.EXTPRO ---
HPI - Extremity Problem General Chief complaint: Extremity Problem Stated complaint: L Knee Calf Pain No Injury Time Seen by Provider: 10/01/23 10:55 Source: patient, family (), RN notes reviewed and old records reviewed Mode of arrival: ambulatory Limitations: no limitations History of Present Illness HPI Narrative: 57 year old male with pmhx significant for depression, anxiety, panic attacks, HDL, HTN, COPD, gout, rheumatoid arthritis, asthma, STEPHON, and insomnia presents to the ED this morning for evaluation of left knee and calf pain that began after sitting for 4 hours at a [employer] show 6 days ago. Endorses severe left calf pain that radiates up behind his left knee, worsening. He has not been taking anything at home for the pain. He does admit to history of muscle spasms however they have never been this severe before. Denies injury or trauma. Denies recent travel or long car rides. Denies anticoagulation. Denies fever, chills, chest pain, SOB, palpitations, numbness/tingling/weakness of the LLE. Related Data Home Medications Medication Instructions Recorded Confirmed cholecalciferol (vitamin D3) 50 50 mcg PO DAILY 05/22/20 09/23/22 mcg (2,000 unit) capsule fluticasone propionate 220 1 puff inhalation BID 05/22/20 09/23/22 mcg/actuation HFA aerosol inhaler (Flovent HFA) ipratropium 20 mcg-albuterol 100 1 puff inhalation QID 05/22/20 09/23/22 mcg/actuation mist for inhalation (Combivent Respimat) oxycodone 15 mg tablet 15 mg PO Q6H 05/22/20 09/23/22 atorvastatin 20 mg tablet 20 mg PO DAILY 07/05/20 09/23/22 albuterol sulfate 2.5 mg/3 mL 1 vial inhalation QID 07/19/20 09/23/22 (0.083 %) solution for nebulization multivitamin (Daily-Petra tablet) 1 tab PO DAILY 07/19/20 09/23/22 divalproex 500 mg tablet,delayed 1,000 mg PO BID 08/29/21 09/23/22 release fluoxetine 20 mg capsule 20 mg PO DAILY 08/29/21 09/23/22 alprazolam 1 mg tablet 1 mg PO BID PRN Anxiety 10/08/21 09/23/22 gabapentin 600 mg tablet 600 mg PO BEDTIME 03/12/22 09/23/22 escitalopram oxalate 20 mg tablet 20 mg PO QAM 06/26/22 09/23/22 magnesium oxide 400 mg (241.3 mg 400 mg PO DAILY 06/26/22 09/23/22 magnesium) tablet lisinopril 5 mg tablet 10 mg PO BID 07/17/22 09/23/22 nebulizers 08/29/22 09/23/22 Previous Rx's Medication Instructions Recorded tamsulosin 0.4 mg capsule 0.4 mg PO DAILY 30 days #30 caps 06/26/22 sumatriptan succinate 100 mg 100 mg PO .COMPLEX #14 tabs 03/20/23 tablet (Imitrex) dexlansoprazole 60 mg 60 mg PO DAILY #90 caps 04/29/23 capsule,biphase delayed release famotidine 40 mg tablet 40 mg PO BEDTIME #90 tabs 04/29/23 shuruy-[id number] 1 cap PO QID 30 days #120 caps 04/29/23 24,000-76,000-120,000 unit capsule,delayed rel (Creon) ondansetron HCl 4 mg tablet 4 mg PO BID PRN for nausea #60 tabs 04/29/23 cyclobenzaprine 5 mg tablet 5 mg PO BEDTIME PRN muscle spasm 10/01/23 #7 tabs lidocaine 5 % topical patch 1 patch topical DAILY #15 ea 10/01/23 (Lidoderm) Allergies Allergy/AdvReac Type Severity Reaction Status Date / Time cat dander [CATS] Allergy Unknown UNKNOWN Verified 04/29/23 08:16 dog dander [DOGS] Allergy Unknown UNKNOWN Verified 04/29/23 08:16 pollen extracts [POLLEN] Allergy Unknown UNKNOWN Verified 04/29/23 08:16 tree and shrub pollen Allergy sneeze Verified 04/29/23 08:16 ibuprofen AdvReac causes Verified 04/29/23 08:16 stomach to bleed Review of Systems Review of Systems: Constitutional: No fever, chills, fatigue, night sweats, weight changes ENT/Mouth: No ear pain, hearing loss, nasal congestion, sinus pain, rhinorrhea, sore throat Eyes: No eye pain, swelling, redness, vision changes, discharge Cardio: No chest pain, palpitations, WALKER, orthopnea, peripheral edema Pulm: No SOB, cough, sputum, wheezing, dyspnea, hemoptysis GI: No nausea, vomiting, hematemesis, abdominal pain, diarrhea, constipation, hematochezia, melena : No irregular bleeding, dysuria, frequency, urgency, hesitancy, hematuria, flank pain, urinary flow changes, urinary incontinence or retention MSK: No back pain, neck pain, joint pain, myalgias, +left calf pain, +left knee pain Skin: No lesions, rashes Neuro: No weakness, numbness, paresthesias, LOC, dizziness, headache Psych: No anxiety/panic, depression, SI/HI, AH/VH All other systems reviewed and are negative. COUNTS INCLUDE 234 BEDS AT THE [facility] Past Medical History Attestation statement: The following information was validated with the patient. Source: old records reviewed and nursing notes reviewed Medical History Lipoma of back STEPHON (obstructive sleep apnea) COPD (chronic obstructive pulmonary disease) Chest pain Post herpetic neuralgia Multiple lipomas Osteoarthritis Gout History of peptic ulcer disease Hx of irritable bowel syndrome Chronic back pain Hx of insomnia History of panic attacks History of anxiety History of depression Asthma High cholesterol Hypertension Urinary retention Enlarged prostate Arthritis Slow urinary stream Marijuana use Alcohol abuse H/O ulcer disease Left flank pain Trochanteric bursitis, left hip Epidermal cyst Abdominal wall bulge Esophageal dysphagia Esophageal spasm Short frenulum of penis Balanitis Lipoma of back Elevated blood pressure reading in office with diagnosis of hypertension Thalamic pain syndrome Abnormal loss of weight Painful orthopaedic hardware Pain in unspecified toe(s) Incisional pain Surgical History S/P placement of nerve stimulator Hx of arthroscopy of left knee H/O neck surgery H/O breast surgery S/P excision of lipoma History of bunionectomy History of esophagogastroduodenoscopy (EGD) Hx of colonoscopy Family History Family History Family/Other Cancer Diabetes AIDS Brother Diabetes Myocardial infarction Father Enlarged prostate Mother Diabetes Asthma Social History Social History Are you a primary career and guidance counselor to a significant other at home: No Do you presently have visiting nurse or other home services: No Alcohol intake: never Patient Tobacco Use Status: Current everyday Tobacco user Cigarettes Per Day: 4 Smoked in Last 30 Days: Yes Use of substances other than those prescribed or required for medical reasons: No Substance Use Type: Marijuana Advance Directives: No service: No Current occupational status: unemployed Physical Exam Vital Signs: Vital Signs: Last Vital Signs Temp 97.8 F 10/01/23 15:10 Pulse 51 10/01/23 15:10 Resp 16 10/01/23 15:10 BP 113/52 L 10/01/23 15:10 Pulse Ox 97 10/01/23 14:04 O2 Del Method Room Air 10/01/23 14:04 BMI result Body Mass Index 29.2 Vital signs stable, afebrile. Not tachycardic. Const: General: cooperative, healthy appearing, comfortable and no acute distress Orientation/consciousness: patient oriented x3 Limitations: no limitations HEENT: Head: Yes normal to inspection, Yes No palpable skull fracture present, Yes normocephalic and Yes atraumatic Eyes: General: appearance normal, both eyes and all related structures Conjunctivae: conjunctivae normal Sclerae: sclerae normal Pupils: Equal, round and reactive pupils present Neck: Neck: Yes normal visual inspection, Yes full ROM, Yes no lymphadenopathy and Yes no JVD Resp: Effort & Inspection: normal respiratory effort and able to speak in complete sentences Auscultation: clear to auscultation bilaterally Cardio: Other: 2+ pt/dp and popliteal pulses bilaterally. Jugular venous distension: no JVD Rate: regular rate Rhythm: regular rhythm GI: Inspection: Yes normal to inspection Skin: General skin exam: no rashes or lesions noted Neuro: Other: Strength 5/5 intact throughout.?Sensation intact to light touch.?Neurovascular intact distally.? General: patient oriented x3 and gait normal Cranial nerves: Yes Equal, round and reactive pupils present Extrem: Other: + ambulating with steady gait. full ROM intact to left ankle, knee, and hip. firmness noted along the left gastrocnemius muscle. ttp. no overlying skin changes/ erythema. no warmth. no pitting edema. 2+ pt/dp and popliteal pulses b/l. negative gerber test. Course Course Course Narrative: 1430-- CBC without leukocytosis or left shift. H&H stable. Chemistry without acute electrolyte abnormality requiring intervention. Normal renal and liver function. Venous duplex of LLE does not demonstrate DVT. No sign of popliteal cyst. CPK wnl > no rhabdo. Given patient's exam findings, I believe he is suffering from a muscle spasm of the left lower leg. > on re-evaluation, spasm is still there however pain has been relieved with morphine. Discussed all investigations with patient. I will send him home with Flexeril and lidocaine patches. Patient has remained stable throughout ED visit today. Discussed worrisome signs and symptoms and when to return to the ED. All questions answered at this time. Patient is agreeable with disposition and stable for discharge. Medications Administered Discontinued Medications Generic Name Dose Route Start Last Admin Trade Name Freq PRN Reason Stop Dose Admin Sodium Chloride 1,000 mls @ 999 mls/hr 10/01/23 11:30 10/01/23 13:00 Ns IV 10/01/23 12:30 Infused .Q1H1M SAEID Infusion Morphine Sulfate 4 mg 10/01/23 11:21 10/01/23 11:39 Morphine Sulfate 4 Mg/Ml Cartridge IVPUSH 10/01/23 11:22 4 mg ONCE ONE Administration Protocol Medical Decision Making Medical Decision Making [facility] [place] Narrative: 57 year old male with pmhx significant for depression, anxiety, panic attacks, HDL, HTN, COPD, gout, rheumatoid arthritis, asthma, STEPHON, and insomnia presents to the ED this morning for evaluation of left knee and calf pain that began after sitting for 4 hours at a 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 Vital signs stable. Not tachycardic. Nontoxic appearing and in NAD. RRR. Lungs cta bilaterally. he is ambulating with steady gait. full ROM intact to left ankle, knee, and hip. firmness noted along the left gastrocnemius muscle. ttp. no overlying skin changes/ erythema. no warmth. no pitting edema. 2+ pt/dp and popliteal pulses b/l. negative gerber test. Differential diagnosis includes muscle spasm, dehydration, electrolyte abnormality, anemia, DVT, espitia's cyst, rhabdo. unlikely Achilles tendon rupture, NV compromise, threat to limb, compartment syndrome, fracture, dislocation. Plan for labs, venous duplex, IVF, pain control and re-evaluation. Differential Diagnosis Differential Diagnoses: The differential diagnosis associated with the presentation includes As above Admission/Observation Not indicated Lab Data [facility] [place] Lab Attestation statement: I reviewed the patient's lab results. As above 10/01/23 11:38 10/01/23 11:38 Labs: Lab Results 10/01/23 Range/Units 11:38 WBC 7.6 (4.8-10.8) X10*3/uL RBC 4.41 L (4.60-5.80) X10*6/uL Hgb 13.6 L (14.0-18.0) g/dl Hct 40.5 L (42.0-52.0) % MCV 91.8 (80.0-98.0) fL MCH 30.8 (27.0-33.0) pg MCHC 33.6 (31.0-36.0) g/dl RDW 13.4 (11.0-16.0) % Plt Count 229 (160-400) X10*3/uL MPV 9.5 (9.4-12.4) fL Immature Gran % (Auto) 0.3 (0.0-0.4) % Neut % (Auto) 71.0 (45-73) % Lymph % (Auto) 17.2 L (20-40) % [place] % (Auto) 8.2 (2-11) % Eos % (Auto) 3.2 (0-4) % Baso % (Auto) 0.1 (0-2) % Lymph # (Auto) 1.3 (1.2-4.9) X10*3/uL [place] # (Auto) 0.6 (0.1-1.2) X10*3/uL Eos # (Auto) 0.2 (0.0-0.4) X10*3/uL Baso # (Auto) 0.0 (0.0-0.2) X10*3/uL Abs Immat Gran (auto) 0.02 (0.00-0.03) X10*3/uL Absolute Neuts (auto) 5.4 (2.0-8.3) x10*3/uL Absolute Nucleated RBC 0.000 (0.0-0.012) X10*3/uL Nucleated RBC % (auto) 0.0 (0.0-0.2) /100WBC Sodium 141 (135-145) mmol/L Potassium 4.0 (3.3-5.1) mmol/L Chloride 108 (96-108) mmol/L Carbon Dioxide 29 (22-29) mmol/L Anion Gap 8 L (12-20) BUN 15 (9-16) mg/dL Creatinine 1.01 (0.5-1.4) mg/dL Estim Creat Clear Calc 77.5 Estimated GFR > 60 Random Glucose 105 (60-115) mg/dL Calcium 9.1 (8.4-10.2) mg/dL Magnesium 1.9 (1.6-2.6) mg/dL Total Bilirubin 0.7 (0.0-1.0) mg/dL AST 14 (5-37) U/L ALT 14 (0-40) U/L Alkaline Phosphatase 83 (39-117) U/L Total Creatine Kinase 125 (38-174) U/L Total Protein 6.8 (6.5-8.0) g/dL Albumin 4.0 (3.5-5.0) g/dL Lipase 15 (8-78) U/L Independent Interpretation I performed an independent interpretation of an: Ultrasound Interpretation: I personally reviewed venous duplex ultrasound and agree with radiologist's interpretation. Radiology Impression Discussion of test interpretation with radiology: I have reviewed the radiologist's reading. Radiologist Impression: EXAMINATION: US VENOUS ULTRASOUND WITH DOPPLER LOWER EXTREMITY, LEFT CLINICAL INFORMATION: Calf tender pain behind left knee COMPARISON: Ultrasound lower extremity venous Doppler bilateral/2018 TECHNIQUE: Ultrasound of the deep veins is performed from the hip to the calf with compression sonography and color and pulse Doppler assessment. Spectral analysis with color-flow imaging is performed. FINDINGS: There is normal venous compression and respiratory variation and augmented flow. The visualized common femoral vein, superficial femoral vein, profunda femoral vein, popliteal vein, and the trifurcation region shows no evidence of deep venous thrombosis. There is no significant popliteal fossa cyst. If the patient's symptoms persist, followup ultrasound in 5 days 7 days might be of value to exclude proximal propagation from a non-visualized calf vein. US/US venous duplex LE LT IMPRESSION: No DVT demonstrated in the left lower extremity. Independent Historian Clinical information obtained from an independent historian. History obtained from or confirmed by: Spouse () External Record Review External record reviewed: Inpatient record, Office record, Outpatient record, Prior outpatient labs, Prior outpatient radiology, Primary care record and Outside ED record Prescription Management I considered prescription management with: Pain Medication and Other (flexeril, lidocaine patches) Social Determinants Patient?s care significantly limited by Social Determinants of Health including: Other Social Determinant of Health Critical Care Time Critical Care Time Critical Care Time: Yes Total Critical Care Time: 31 Attestation: Critical care time in the amount of 31 minutes has been provided to the patient in terms of direct patient care, frequent reevaluation, review and interpretation of medical data and results, and management of potentially life-threatening conditions. This is all outside of any medical procedures. Discharge Plan Discharge Clinical Impression: Muscle spasm of left calf Patient Disposition: Home, Self-Care Instructions: Muscle Spasm (ED) Additional Instructions: Your ultrasound of your left leg does not demonstrate clot. Your labs are reassuring. You likely have a spasm of your left calf muscle. Use ice several times per day for 20 minutes at a time for the next 48 hours and then change to heat. Flexeril is a muscle relaxer. Take this at night as it makes you drowsy. Do not drive, drink alcohol, or operate machinery while taking it. Lidoderm patches are numbing patches. Apply to painful areas. Make sure you are staying hydrated throughout the day. In addition you may take Tylenol at home. Follow up with your primary care provider as needed If your pain worsens, if you develop new numbness, tingling, weakness, loss of bowel or bladder function call 911 or return to the ER immediately for evaluation. Prescriptions: New cyclobenzaprine 5 mg tablet 5 mg PO BEDTIME PRN (Reason: muscle spasm) Qty: 7 0RF lidocaine [Lidoderm] 5 % adhesive patch,medicated 1 patch topical DAILY Qty: 15 0RF Rx Instructions: leave on most painful area for up to 12 hrs No Action sumatriptan succinate [Imitrex] 100 mg tablet 100 mg PO .COMPLEX Qty: 14 3RF Rx Instructions: 100 mg orally; multivitamin [Daily-Petra] Tablet 1 tab PO DAILY albuterol sulfate 2.5 mg /3 mL (0.083 %) solution for nebulization 1 vial inhalation QID alprazolam 1 mg tablet 1 mg PO BID PRN (Reason: Anxiety) lisinopril 5 mg tablet 10 mg PO BID atorvastatin 20 mg tablet 20 mg PO DAILY oxycodone 15 mg tablet 15 mg PO Q6H cholecalciferol (vitamin D3) 50 mcg (2,000 unit) capsule 50 mcg PO DAILY Flovent HFA 220 mcg/actuation HFA aerosol inhaler 1 puff inhalation BID Combivent Respimat 20-100 mcg/actuation mist 1 puff inhalation QID fluoxetine 20 mg capsule 20 mg PO DAILY divalproex 500 mg tablet,delayed release (DR/EC) 1,000 mg PO BID gabapentin 600 mg tablet 600 mg PO BEDTIME magnesium oxide 400 mg (241.3 mg magnesium) tablet 400 mg PO DAILY escitalopram oxalate 20 mg tablet 20 mg PO QAM tamsulosin 0.4 mg capsule 0.4 mg PO DAILY 30 Days Qty: 30 3RF [facility] Instructions .Route Rx Instructions: As directed dexlansoprazole 60 mg capsule,biphase delayed releas 60 mg PO DAILY Qty: 90 1RF famotidine 40 mg tablet 40 mg PO BEDTIME Qty: 90 2RF Creon 24,000-76,000 -120,000 unit capsule,delayed release(DR/EC) 1 cap PO QID 30 Days Qty: 120 3RF Rx Instructions: administer with meals and/or snacks ondansetron HCl 4 mg tablet 4 mg PO BID PRN (Reason: for nausea) Qty: 60 0RF Referrals: [facility] [place] Pain Management [Provider Group] Interventions: ED Discharge Assessment Last Done: 10/01/23 15:10 Discharge Date/Time: 10/01/23 15:19
[2023-10-01] MEDS: 0.9 % Sodium Chloride 1,000 ML 999 ML IV (11:39)
[2023-10-01] MEDS: Morphine Sulfate 4 MG/ML CARTRIDGE IVPUSH (11:39)
[2023-10-01 11:44] LABS: MANUAL DIFF FLAG NO
[2023-10-01 11:49] LABS: Basophils Percent Auto 0.1 % (0-2); Eosinophils Absolute Auto 0.2 X10*3/uL (0.0-0.4); Eosinophils Percent Auto 3.2 % (0-4); Hematocrit 40.5 % (42.0-52.0); Hemoglobin 13.6 g/dl (14.0-18.0); Imm Gran Abs Auto 0.02 X10*3/uL (0.00-0.03); Imm Gran Pct Auto 0.3 % (0.0-0.4); Lymphocytes Absolute Auto 1.3 X10*3/uL (1.2-4.9); Lymphocytes Percent Auto 17.2 % (20-40); Mean Corpuscular HGB Conc 33.6 g/dl (31.0-36.0); Mean Corpuscular Hemoglobin 30.8 pg (27.0-33.0); Mean Corpuscular Volume 91.8 fL (80.0-98.0); Mean Platelet Volume 9.5 fL (9.4-12.4); Monocytes Absolute Auto 0.6 X10*3/uL (0.1-1.2); Monocytes Percent Auto 8.2 % (2-11); Neutrophils Absolute Auto 5.4 x10*3/uL (2.0-8.3); Platelet Count 229 X10*3/uL (160-400); Red Blood Count 4.41 X10*6/uL (4.60-5.80); Red Cell Distribution Width 13.4 % (11.0-16.0); White Blood Count 7.6 X10*3/uL (4.8-10.8)
--- NOTE | 2023-10-01 11:49 | PC.NURSE ---
Assumed care of this patient at 1100, IV placed, fluids running, meds given for pain per mar.
[2023-10-01 12:00] LABS: Alanine Aminotransferase 14 U/L (0-40); Alkaline Phosphatase 83 U/L (39-117); Anion Gap 8 (12-20); Aspartate Amino Transferase 14 U/L (5-37); Bilirubin Total 0.7 mg/dL (0.0-1.0); Blood Urea Nitrogen 15 mg/dL (9-16); Calcium 9.1 mg/dL (8.4-10.2); Carbon Dioxide 29 mmol/L (22-29); Chloride 108 mmol/L (96-108); Creatinine Clr Calc Pharmacy 77.5; Estimated Glomerular Filt Rate > 60; Glucose Random 105 mg/dL (60-115); Lipase 15 U/L (8-78); Magnesium 1.9 mg/dL (1.6-2.6); Sodium 141 mmol/L (135-145); Total Protein 6.8 g/dL (6.5-8.0)
[2023-10-01 14:04] VITALS: BP 113/52; PULSE 51; RESP 16; O2SAT 97
--- NOTE | 2023-10-01 15:05 | PC.NURSE ---
Provider spoke to patient and family about negative US findings while this RN was in adjacent patient's room tending to their needs. Patient and family found not to be in room, IV found removed on patient's bedside table, rn charge made aware.
[2023-10-01 15:10] VITALS: BP 113/52; PULSE 51; RESP 16; TEMP 36.6
== END 2023-10-01 15:19 | disposition home or self-care (01) ==
PROVIDERS: Physician Assistant Medical; Emergency Provider Emergency Medicine Emergency Medical Services; PCP Student in an Organized Health Care Education/Training Program
DX: M62.831 Muscle spasm of calf (principal); M25.562 Pain in left knee; M79.662 Pain in left lower leg; I10 Essential (primary) hypertension; M10.9 Gout, unspecified; Z79.899 Other long term (current) drug therapy; J44.9 Chronic obstructive pulmonary disease, unspecified
CPT/HCPCS: 36415; 80053; 82550; 83690; 83735; 85025; 93971; 96361; 96374; 99284; J2270

== ENCOUNTER 2023-10-28 07:12 | Emergency (ER) | payer OTHER, SELFPAY ==
--- NOTE | ~2023-10-28 | CT_ITS ---
STUDY: Unenhanced CT of the head and cervical spine INDICATION: Head and neck trauma COMPARISON: 07/08/2022 head TECHNIQUE: Continuous helical imaging obtained through the head and cervical spine without IV contrast. Reconstructed images performed in the coronal and sagittal planes. This CT examination was performed using dose optimization techniques as appropriate, variously including the following: *Automated exposure control *Adjustment of mA and/or kV according to patient size (this includes techniques or standardized protocols for targeted exams where dose is matched to indication/reason for exam; i.e. extremities or head) *Use of iterative reconstruction technique TOTAL EXAM DLP: 548.89 mGy-cm FINDINGS: HEAD: Intracranial structures are unremarkable in appearance. Cheng-white matter differentiation is preserved. No intracranial hemorrhage, extra-axial fluid collections, fractures or soft tissue hematomas identified following trauma. No evolving infarct, mass lesion, mass effect or midline shift seen. Mild disconjugate gaze. Asymmetric right nasal turbinate thickening. Sinuses are clear. Redemonstration mild opacification bilateral inferior mastoids. Bony structures are intact. Soft tissues are unremarkable. CERVICAL SPINE: Mild cervical lordotic straightening. C5-C6 fusion with unchanged surgical hardware. Acute appearing nondisplaced right C7 facet fracture involving superior and inferior articulating surfaces extending into the pedicle. No extension into the bony foramen or foramen transversarium. C6-C7 disc herniation. No traumatic subluxation. Soft tissues are unremarkable. Bilateral nonspecific cervical lymph nodes. Vascular calcifications. Lung apices are clear. CT/CT cervical spine wo IV con IMPRESSION: Acute appearing right C7 facet and pedicle fractures. C6-C7 disc herniation. Consider MRI follow-up, especially if there is clinical deficit/myelopathic symptoms. No acute intracranial pathology. At the time of this dictation, referring physician being notified of findings and recommendations by PSA service.
[2023-10-28 07:30] VITALS: BP 125/90; PULSE 87; RESP 18; TEMP 36.8; O2SAT 96; BMI 30.3
--- NOTE | 2023-10-28 08:12 | ED.FALL ---
HPI - Fall General Chief Complaint: Fall Stated Complaint: Fall T-1/Neck pain Time Seen by Provider: 10/28/23 08:04 Source: patient and old records reviewed Mode of arrival: ambulatory Limitations: no limitations History of Present Illness HPI Narrative: 57 yo male with PMH of migraines, GERD, chronic pain syndrome, seizures, STEPHON, COPD, hyperlipidemia, not on blood thinners here with c/o tripping yesterday due to this pain in left calf for 3 weeks being managed by [facility] who think he has a pinched nerve. He fell forward into the trunk of his car had LOC unsure how long it happened at 430pm. He felt a crunch in his neck. His children carried him upstairs and he rested in bed. Now he has head pain, neck pain, shoulder tightness and he feels sore all over. He did not take any of his pain medications this AM. He walked in with coffee mug on his own. MD complaint: fall Onset (ago): day(s) (yesterday 430pm) Fall from: standing Fall witnessed: yes, by family Place fall occurred: street Loss of consciousness: unsure Prolonged down time: no Symptoms prior to fall: none Context: tripped/slipped Location of injury: head and neck Severity: moderate Quality: spasming and throbbing Associated symptoms (after fall): headache Related Data Home Medications ?Medication ?Instructions ?Recorded ?Confirmed cholecalciferol (vitamin D3) 50 50 mcg PO DAILY 05/22/20 09/23/22 mcg (2,000 unit) capsule fluticasone propionate 220 1 puff inhalation BID 05/22/20 09/23/22 mcg/actuation HFA aerosol inhaler (Flovent HFA) ipratropium 20 mcg-albuterol 100 1 puff inhalation QID 05/22/20 09/23/22 mcg/actuation mist for inhalation (Combivent Respimat) oxycodone 15 mg tablet 15 mg PO Q6H 05/22/20 09/23/22 atorvastatin 20 mg tablet 20 mg PO DAILY 07/05/20 09/23/22 albuterol sulfate 2.5 mg/3 mL 1 vial inhalation QID 07/19/20 09/23/22 (0.083 %) solution for nebulization multivitamin (Daily-Petra tablet) 1 tab PO DAILY 07/19/20 09/23/22 divalproex 500 mg tablet,delayed 1,000 mg PO BID 08/29/21 09/23/22 release fluoxetine 20 mg capsule 20 mg PO DAILY 08/29/21 09/23/22 alprazolam 1 mg tablet 1 mg PO BID PRN Anxiety 10/08/21 09/23/22 gabapentin 600 mg tablet 600 mg PO BEDTIME 03/12/22 09/23/22 escitalopram oxalate 20 mg tablet 20 mg PO QAM 06/26/22 09/23/22 magnesium oxide 400 mg (241.3 mg 400 mg PO DAILY 06/26/22 09/23/22 magnesium) tablet lisinopril 5 mg tablet 10 mg PO BID 07/17/22 09/23/22 nebulizers 08/29/22 09/23/22 Previous Rx's ?Medication ?Instructions ?Recorded tamsulosin 0.4 mg capsule 0.4 mg PO DAILY 30 days #30 caps 06/26/22 sumatriptan succinate 100 mg 100 mg PO .COMPLEX #14 tabs 03/20/23 tablet (Imitrex) dexlansoprazole 60 mg 60 mg PO DAILY #90 caps 04/29/23 capsule,biphase delayed release famotidine 40 mg tablet 40 mg PO BEDTIME #90 tabs 04/29/23 [id number] 1 cap PO QID 30 days #120 caps 04/29/23 24,000-76,000-120,000 unit capsule,delayed rel (Creon) ondansetron HCl 4 mg tablet 4 mg PO BID PRN for nausea #60 tabs 04/29/23 cyclobenzaprine 5 mg tablet 5 mg PO BEDTIME PRN muscle spasm 10/01/23 #7 tabs lidocaine 5 % topical patch 1 patch topical DAILY #15 ea 10/01/23 (Lidoderm) Allergies Allergy/AdvReac Type Severity Reaction Status Date / Time cat dander [CATS] Allergy Unknown UNKNOWN Verified 10/28/23 07:36 dog dander [DOGS] Allergy Unknown UNKNOWN Verified 10/28/23 07:36 pollen extracts [POLLEN] Allergy Unknown UNKNOWN Verified 10/28/23 07:36 tree and shrub pollen Allergy sneeze Verified 10/28/23 07:36 ibuprofen AdvReac causes Verified 10/28/23 07:36 stomach to bleed Review of Systems Review of Systems: Constitutional : No Fever, No Chills, No Fatigue ENT/Mouth : No sore throat, No Rhinorrhea Eyes: No Eye Pain, No Swelling, No Redness Cardiovascular : No Chest Pain, No SOB, No Dyspnea on Exertion Respiratory : No Cough, No Sputum Gastrointestinal : No Nausea, No Vomiting, No Diarrhea, No abdominal Pain Genitourinary : No Dysuria, No Urinary Frequency, No Hematuria, Musculoskeletal : No joint pain, No Myalgias, No Joint Swelling, pos neck pain Skin : No Skin Lesions, No rash Neuro : No Weakness, No Numbness, No Dizziness, positive Headache Psych : No Anxiety/Panic, No Depression All other systems reviewed and are negative [facility] Past Medical History Attestation statement: The following information was validated with the patient. Source: old records reviewed Medical History Lipoma of back STEPHON (obstructive sleep apnea) COPD (chronic obstructive pulmonary disease) Chest pain Post herpetic neuralgia Multiple lipomas Osteoarthritis Gout History of peptic ulcer disease Hx of irritable bowel syndrome Chronic back pain Hx of insomnia History of panic attacks History of anxiety History of depression Asthma High cholesterol Hypertension Urinary retention Enlarged prostate Arthritis Slow urinary stream Marijuana use Alcohol abuse H/O ulcer disease Left flank pain Trochanteric bursitis, left hip Epidermal cyst Abdominal wall bulge Esophageal dysphagia Esophageal spasm Short frenulum of penis Balanitis Lipoma of back Elevated blood pressure reading in office with diagnosis of hypertension Thalamic pain syndrome Abnormal loss of weight Painful orthopaedic hardware Pain in unspecified toe(s) Incisional pain Surgical History S/P placement of nerve stimulator Hx of arthroscopy of left knee H/O neck surgery H/O breast surgery S/P excision of lipoma History of bunionectomy History of esophagogastroduodenoscopy (EGD) Hx of colonoscopy Family History Family History Family/Other Cancer Diabetes AIDS Brother Diabetes Myocardial infarction Father Enlarged prostate Mother Diabetes Asthma Social History Social History Are you a primary chronic care nurse to a significant other at home: No Do you presently have visiting nurse or other home services: No Alcohol intake: never Patient Tobacco Use Status: Current everyday Tobacco user Cigarettes Per Day: 4 Substance Use Type: Marijuana Advance Directives: No Do you have a plan to hurt others: No Plan service: No Current occupational status: unemployed Physical Exam Vital Signs: Vital Signs: Last Vital Signs Temp 97.9 F 10/28/23 11:18 Pulse 59 10/28/23 11:18 Resp 18 10/28/23 11:18 BP 119/61 10/28/23 11:18 Pulse Ox 97 10/28/23 11:18 O2 Del Method Room Air 10/28/23 11:18 BMI result Body Mass Index 30.3 Appearance: Alert. Oriented X3. No acute distress. Eyes: Pupils equal, round and reactive to light. ENT: Pharynx normal. atraumatic appearing Neck: ttp along neck and trapezius ttp CVS: Normal heart rate and rhythm. Pulses normal. Respiratory: No respiratory distress. Breath sounds normal. Abdomen: Soft and nontender. Skin: Skin warm and dry. Normal skin color. Normal skin turgor. Extremities: No lower extremity edema. using both hands to gesture and tell story Neuro: Oriented X 3. No motor deficit. No sensory deficit. normal kier tender Course Course Course Narrative: will place in aspen collar consult [facility] he has pain but no UE neuro deficits at this time. no aspen collars will remain in cervical collar Reevaluation(s) Reevaluation #1: message sent to PA at [facility] [id number] given cervical fractures Reevaluation #2: pain well controlled [facility] aware likely [place] collar and follow up but will call back [id number] Medications Administered Discontinued Medications Generic Name Dose Route Start Last Admin Trade Name Sisi PRN Reason Stop Dose Admin Alprazolam 1 mg 10/28/23 08:27 10/28/23 08:51 Alprazolam 0.5 Mg Tablet PO 10/28/23 08:28 1 mg ONCE ONE Administration Cyclobenzaprine HCl 10 mg 10/28/23 08:27 10/28/23 08:51 Cyclobenzaprine Hcl 10 Mg Tablet PO 10/28/23 08:28 10 mg ONCE ONE Administration Oxycodone HCl 15 mg 10/28/23 08:27 10/28/23 08:52 Oxycodone Hcl Immed Release 15 Mg Tablet PO 10/28/23 08:28 15 mg ONCE ONE Administration Medical Decision Making Medical Decision Making MDM Narrative: 57 yo male with PMH of migraines, GERD, chronic pain syndrome, seizures, STEPHON, COPD, hyperlipidemia, not on blood thinners here with c/o head and neck pain after fall with LOC he is GCS 15 UE NV intact has head and neck pain will obtain CT head/cspine and will dose with his home xanax, oxycodone, flexeril that he missed. Differential Diagnosis Differential Diagnoses: The differential diagnosis associated with the presentation includes head injury, sprain, strain, neck trauma Admission/Observation Consideration of admission/observation: Escalation of care including admission/observation considered follow up as outpatient Consult Healthcare Provider Management of the patient was discussed with: Transportation Maintenance Supervisor Sarai ROE - [place] collar follow up appointment in 1 month will reach out to him. Cannot take the collar off at all no lifting greater than 15lbs. illegal to drive with collar Independent Interpretation I performed an independent interpretation of an: CT Scan (abnormal cervical spine) Radiology Impression Discussion of test interpretation with radiology: I have reviewed the radiologist's reading. External Record Review External record reviewed: Inpatient record and Office record Prescription Management I considered prescription management with: Other Critical Care Time Critical Care Time Critical Care Time: Yes Total Critical Care Time: 45 Attestation: outside consult, review of records I attest to this time spent taking care of the patient Discharge Plan Discharge Clinical Impression: C7 cervical fracture Qualifiers: Encounter type: initial encounter Fracture type: closed Fracture morphology: unspecified fracture morphology Fracture alignment: nondisplaced Qualified Code(s): S12.601A - Unspecified nondisplaced fracture of seventh cervical vertebra, initial encounter for closed fracture Head injury Qualifiers: Encounter type: initial encounter Qualified Code(s): S09.90XA - Unspecified injury of head, initial encounter Patient Disposition: Home, Self-Care Instructions: Head Injury (ED), Cervical Fracture (ED) Additional Instructions: continue all of your medications return for weakness, numbness in the hands or any other concerns ASPEN collar stays on at all times will not be able to shower Cannot take the collar off at all no lifting greater than 15lbs. it is illegal to drive with collar [facility] will call you with follow up appointment - please wait for their call. Prescriptions: No Action sumatriptan succinate [Imitrex] 100 mg tablet 100 mg PO .COMPLEX Qty: 14 3RF Rx Instructions: 100 mg orally; multivitamin [Daily-Petra] Tablet 1 tab PO DAILY albuterol sulfate 2.5 mg /3 mL (0.083 %) solution for nebulization 1 vial inhalation QID alprazolam 1 mg tablet 1 mg PO BID PRN (Reason: Anxiety) lisinopril 5 mg tablet 10 mg PO BID cyclobenzaprine 5 mg tablet 5 mg PO BEDTIME PRN (Reason: muscle spasm) Qty: 7 0RF lidocaine [Lidoderm] 5 % adhesive patch,medicated 1 patch topical DAILY Qty: 15 0RF Rx Instructions: leave on most painful area for up to 12 hrs atorvastatin 20 mg tablet 20 mg PO DAILY oxycodone 15 mg tablet 15 mg PO Q6H cholecalciferol (vitamin D3) 50 mcg (2,000 unit) capsule 50 mcg PO DAILY Flovent HFA 220 mcg/actuation HFA aerosol inhaler 1 puff inhalation BID Combivent Respimat 20-100 mcg/actuation mist 1 puff inhalation QID fluoxetine 20 mg capsule 20 mg PO DAILY divalproex 500 mg tablet,delayed release (DR/EC) 1,000 mg PO BID gabapentin 600 mg tablet 600 mg PO BEDTIME magnesium oxide 400 mg (241.3 mg magnesium) tablet 400 mg PO DAILY escitalopram oxalate 20 mg tablet 20 mg PO QAM tamsulosin 0.4 mg capsule 0.4 mg PO DAILY 30 Days Qty: 30 3RF (DME) nebulizers [facility] [place] Rx Instructions .Route Rx Instructions: As directed dexlansoprazole 60 mg capsule,biphase delayed releas 60 mg PO DAILY Qty: 90 1RF famotidine 40 mg tablet 40 mg PO BEDTIME Qty: 90 2RF Creon 24,000-76,000 -120,000 unit capsule,delayed release(DR/EC) 1 cap PO QID 30 Days Qty: 120 3RF Rx Instructions: administer with meals and/or snacks ondansetron HCl 4 mg tablet 4 mg PO BID PRN (Reason: for nausea) Qty: 60 0RF Stand Alone Forms: Work/School Release Discharge Date/Time: 10/28/23 13:20 Print Language: Hebrew
[2023-10-28 08:30] VITALS: BP 119/70; PULSE 74; RESP 19; TEMP 36.7; O2SAT 94
[2023-10-28] MEDS: ALPRAZolam 0.5 MG TABLET 1 MG PO (08:51)
[2023-10-28] MEDS: Cyclobenzaprine HCl 10 MG TABLET PO (08:51)
[2023-10-28] MEDS: oxyCODONE HCl Immed Release 15 MG TABLET PO (08:52)
--- NOTE | 2023-10-28 10:26 | PC.NURSE ---
Pt placed in C-Collar per MD request, pt tolerating well at this time
--- NOTE | 2023-10-28 10:28 | PC.NURSE ---
Pt reporting light sensitivity, headache while couching states, feels like my head is going to explode when I cough. Pt shows weak hand law tutor bilaterally. Pt states tingling/numbness in left leg from hip to big toe. Pt reports retaining urine, and reports needing to use a bladder stimulator to urinate. and frequent history of UTIs, Bowel movements are normal. Pt sleeping at this time, no new orders georgie
[2023-10-28 10:32] VITALS: BP 125/71; PULSE 63; RESP 18; TEMP 36.6; O2SAT 95
[2023-10-28 11:18] VITALS: BP 119/61; PULSE 59; RESP 18; TEMP 36.6; O2SAT 97
== END 2023-10-28 13:20 | disposition home or self-care (01) ==
PROVIDERS: Emergency Provider Emergency Medicine; PCP Student in an Organized Health Care Education/Training Program
DX: S09.90XA Unspecified injury of head, initial encounter (principal); S12.601A Unspecified nondisplaced fracture of seventh cervical vertebra, initial encounter for closed fracture; W01.198A Fall on same level from slipping, tripping and stumbling with subsequent striking against other object, initial encounter; I10 Essential (primary) hypertension; E78.5 Hyperlipidemia, unspecified; F17.210 Nicotine dependence, cigarettes, uncomplicated; Z79.02 Long term (current) use of antithrombotics/antiplatelets; Z79.899 Other long term (current) drug therapy; Y93.89 Activity, other specified; Y92.410 Unspecified street and highway as the place of occurrence of the external cause; Y99.9 Unspecified external cause status
CPT/HCPCS: 70450; 72125; 99284

== ENCOUNTER 2023-10-29 07:54 | Outpatient (AMB) | payer OTHER, SELFPAY ==
--- NOTE | 2023-10-29 07:58 | MHC.OFFVIS ---
Vital Signs 10/29/23 08:13 Height 5 ft 4 in Weight 176 lb BMI 30.2 BP 143/76 H Blood Pressure Location Lt brachial Position Sitting Pulse 86 Intake Visit Reasons: 6 months follow up Intake Note: Patient follow up for GERD Patient cc: acid refelx with burning sensation and bad smell from his burping2. Bar Catcher Required: No Accompanied by: Daughter Allergies cat dander [CATS] Allergy (Unknown, Verified 10/29/23 08:09) UNKNOWN dog dander [DOGS] Allergy (Unknown, Verified 10/29/23 08:09) UNKNOWN pollen extracts [POLLEN] Allergy (Unknown, Verified 10/29/23 08:09) UNKNOWN tree and shrub pollen Allergy (Verified 10/29/23 08:09) sneeze ibuprofen Adverse Reaction (Verified 10/29/23 08:09) causes stomach to bleed HPI HPI 6 months follow up: Details: Assessment & Plan (1) GERD (gastroesophageal reflux disease): Code(s): K21.9 - Gastro-esophageal reflux disease without esophagitis (2) Irritable bowel syndrome with diarrhea: Code(s): K58.0 - Irritable bowel syndrome with diarrhea (3) Periumbilical abdominal pain: Code(s): R10.33 - Periumbilical pain Plan His diarrhea has subsided and he is now passing soft stool. He feels that the creon was helpful. He continues on his Dexilant and famotidine for GERD, dicyclomine. He has not been to see me because his father , his sister came up and really messed up all my doctor appts. Apparently, she tried also to put him on Medminder and hes medicines were frequently late and he would have withdrawal. He moved it all back to [facility]. Multiple ortho problems, head numb, carpal spasms if raises arms, CP. 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 office 6 months Medications: Refilled dexlansoprazole 60 mg PO DAILY 90 caps 1RF dexlansoprazole 60 mg PO DAILY 90 caps 1RF famotidine 40 mg PO BEDTIME 90 tabs 2RF K21.9 - Gastro-esophageal reflux disease without esophagitis cceczb-ccxkftnb-oxfmujg 24,000-76,000 -120,000 unit (Creon) administer with meals and/or snacks 1 cap PO QID 120 caps 3RF 30 days K58.9 - Irritable bowel syndrome without diarrhea famotidine 40 mg PO BEDTIME 90 tabs 2RF K21.9 - Gastro-esophageal reflux disease without esophagitis xmapic-nmnpoiob-nqqrlai 24,000-76,000 -120,000 unit (Creon) administer with meals and/or snacks 1 cap PO QID 120 caps 3RF 30 days K58.9 - Irritable bowel syndrome without diarrhea ondansetron HCl 4 mg PO BID PRN 60 tabs 0RF for nausea BARIUM SWALLOW. ? TODAYS VISIT He is here today with his daughter and granddson. He got a muscle cramp and tripped forward and hit his forehead on the trunk of his car, then fell backwards and was unconscious for an undetermined amt of time. He hurt his knee and broke a cervical vertebrae. He is wearing a neck brace. He is having CHILD's like my eyes want to pop out. He likely has a coup countercoup concussion as well. He presented to the [facility] ER. We discuss his compression of the L5-S1 nerve root. He notes very rotten egg taste and (his dtr says) malodorous flatulence with eating eggs and drinking milk. I educate him on trying Lactaid milk and ice cream, He dislikes yogurt. He is having appetite problems, I can go days w/o eating at all. He attributes this to having a living hell where I live. He has a restraining order on a woman in his apt complex. His family tries to get him Boost but they di/c'ed the strawberry flavor. He is limited in trying different brands r/t insurance coverage. He has been losing his hearing over the past few months and is trying to get hearing aids. They are trying to find a local it support manager as his insurance wants to send him to [place]. He continues on his GI regimen which consists of Dexilant, famotidine, Creon, and p.r.n. Zofran. He does not feel we need to make any changes to it at this time. He believes that his weight loss is more related to his social difficulties provoking his anxiety. ROV 3 mos PFS Medical History Lipoma of back STEPHON (obstructive sleep apnea) COPD (chronic obstructive pulmonary disease) Chest pain Post herpetic neuralgia Multiple lipomas Osteoarthritis Gout History of peptic ulcer disease Hx of irritable bowel syndrome Chronic back pain Hx of insomnia History of panic attacks History of anxiety History of depression Asthma High cholesterol Hypertension Urinary retention Enlarged prostate Arthritis Slow urinary stream Marijuana use Alcohol abuse H/O ulcer disease Left flank pain Trochanteric bursitis, left hip Epidermal cyst Abdominal wall bulge Esophageal dysphagia Esophageal spasm Short frenulum of penis Balanitis Lipoma of back Elevated blood pressure reading in office with diagnosis of hypertension Thalamic pain syndrome Abnormal loss of weight Painful orthopaedic hardware Pain in unspecified toe(s) Incisional pain Surgical History S/P placement of nerve stimulator Hx of arthroscopy of left knee H/O neck surgery H/O breast surgery S/P excision of lipoma History of bunionectomy History of esophagogastroduodenoscopy (EGD) Hx of colonoscopy Family History Family/Other Cancer Diabetes AIDS Brother Diabetes Myocardial infarction Father Enlarged prostate Mother Diabetes Asthma Social History Are you a primary child day care center worker to a significant other at home: No Do you presently have visiting nurse or other home services: No Alcohol intake: never Patient Tobacco Use Status: Current everyday Tobacco user Cigarettes Per Day: 4 Substance Use Type: Marijuana service: No Current occupational status: unemployed Review of Systems Const Denies fatigue, Denies fever(s), Denies night sweats, Denies poor appetite and Denies weight loss Eyes Reports requires corrective lenses ENT Reports Normal hearing present, Denies dental pain, Denies dysphagia, Denies hearing loss, Denies mouth pain, Denies odynophagia, Denies throat swelling, Denies tongue swelling and Reports other (Dentition adequate) GI Details: Denies abdominal pain, Denies melena, Denies bloating, Denies hematochezia, Denies constipation, Denies GI cramping, Denies dysphagia, Denies excessive flatus, Denies early satiety, Denies heartburn, Denies diarrhea, Denies nausea, Denies odynophagia, Denies vomiting and Denies hematemesis Skin/Breast Denies pruritus, Denies lesions, Denies rash and Denies jaundice Neuro Reports Normal hearing present and Denies Abnormal speech present Endo Denies fatigue Aller/Immun Denies throat swelling and Denies tongue swelling Physical Exam Vital Signs: Last Vital Signs Pulse 86 10/29/23 08:13 BP 143/76 H 10/29/23 08:13 BMI result Body Mass Index 30.2 Const General: cooperative, no acute distress, well developed and well groomed Nutritional Appearance: well nourished and overweight Orientation/consciousness: oriented to person, oriented to place and oriented to time Limitations: No language barrier and ambulation with cane HEENT Head: Yes normocephalic and Yes atraumatic Eyes General: appearance normal, both eyes and all related structures Pupils: Equal, round and reactive pupils present Neck Neck: Yes normal visual inspection and Yes no lymphadenopathy Thyroid: Thyroid normal Resp Effort & Inspection: normal respiratory effort and able to speak in complete sentences Auscultation: clear to auscultation bilaterally Cardio Rate: regular rate Rhythm: regular rhythm Heart sounds: Normal, physiologic split S2 sound present Peripheral pulses: radial pulses present and posterior tibial pulses present GI Inspection: No distended and No Abdominal panniculus present Palpation (GI): Soft to palpation, nontender, no guarding, not rigid, No hepatosplenomegaly present and Hepatosplenomegaly present Percussion: Yes normal to percussion Auscultation: normal bowel sounds Rectal Exam - Male: Yes deferred Skin General skin exam: no rashes or lesions noted, turgor normal, skin not dry, no jaundice, No spider nevi and no striae Rashes: no rashes Nails: normal Neuro General: oriented to person, oriented to place and oriented to time Cranial nerves: Yes Equal, round and reactive pupils present and Yes Normal hearing present Speech: No Abnormal speech present Extrem General: Yes normal to inspection, No clubbing, No cyanosis and No edema Psych Thought process: Normal thought process present and not confabulating Thought content: Normal thought content present Insight: Good insight present (Psych) Judgement: Good judgement present (Psych) Assessment & Plan Assessment & Plan (1) GERD (gastroesophageal reflux disease): Code(s): K21.9 - Gastro-esophageal reflux disease without esophagitis Category: Medical (2) Irritable bowel syndrome with diarrhea: Code(s): K58.0 - Irritable bowel syndrome with diarrhea Category: Medical (3) Periumbilical abdominal pain: Code(s): R10.33 - Periumbilical pain Category: Medical (4) Dysphagia: Comment: occasional in upper oropharyngeal area Code(s): R13.10 - Dysphagia, unspecified Category: Medical Plan He is here today with his daughter and granddson. He got a muscle cramp and tripped forward and hit his forehead on the trunk of his car, then fell backwards and was unconscious for an undetermined amt of time. He hurt his knee and broke a cervical vertebrae. He is wearing a neck brace. He is having CHILD's like my eyes want to pop out. He likely has a coup countercoup concussion as well. He presented to the [facility] ER. We discuss his compression of the L5-S1 nerve root. He notes very rotten egg taste and (his dtr says) malodorous flatulence with eating eggs and drinking milk. I educate him on trying Lactaid milk and ice cream, He dislikes yogurt. He is having appetite problems, I can go days w/o eating at all. He attributes this to having a living hell where I live. He has a restraining order on a woman in his apt complex. His family tries to get him Boost but they di/c'ed the strawberry flavor. He is limited in trying different brands r/t insurance coverage. He has been losing his hearing over the past few months and is trying to get hearing aids. They are trying to find a local it support manager as his insurance wants to send him to [place]. He continues on his GI regimen which consists of Dexilant, famotidine, Creon, and p.r.n. Zofran. He does not feel we need to make any changes to it at this time. He believes that his weight loss is more related to his social difficulties provoking his anxiety. ROV 3 mos BARIUM SWALLOW. ? Orders: Orders [place] barium swallow 10/29/23 R13.10 - Dysphagia, unspecified Medications: Refilled uohkpc-eevmquwn-htndgxk 24,000-76,000 -120,000 unit (Creon) administer with meals and/or snacks 1 cap PO QID 120 caps 6RF 30 days K58.9 - Irritable bowel syndrome without diarrhea famotidine 40 mg PO BEDTIME 90 tabs 2RF K21.9 - Gastro-esophageal reflux disease without esophagitis ondansetron HCl 4 mg PO BID PRN 60 tabs 0RF for nausea dexlansoprazole 60 mg PO DAILY 90 caps 1RF Coding Level of Care Code Est Pt Level 3 (97497) Diagnoses GERD (gastroesophageal reflux disease) K21.9 Irritable bowel syndrome with diarrhea K58.0 Periumbilical abdominal pain R10.33 Dysphagia R13.10
[2023-10-29 08:13] VITALS: BP 143/76; PULSE 86; BMI 30.2
== END 2023-10-29 08:56 | disposition home or self-care (01) ==
PROVIDERS: PCP Registered Nurse; Visit Provider Nurse Practitioner
DX: K21.9 Gastro-esophageal reflux disease without esophagitis (principal); K58.0 Irritable bowel syndrome with diarrhea; R10.33 Periumbilical pain; R13.10 Dysphagia, unspecified
CPT/HCPCS: 99213

== ENCOUNTER → 2023-10-29 07:54 | Outpatient (BNVA) | payer OTHER, SELFPAY | PROVIDERS: PCP Registered Nurse; Visit Provider Nurse Practitioner | DX: K21.9 Gastro-esophageal reflux disease without esophagitis (principal); K58.0 Irritable bowel syndrome with diarrhea; R10.33 Periumbilical pain; R13.10 Dysphagia, unspecified | CPT/HCPCS: 99212 ==

== ENCOUNTER 2023-11-07 11:40 | Emergency (ER) | payer OTHER, SELFPAY ==
--- NOTE | 2023-11-07 11:51 | ED.GENADULT ---
HPI - General Adult General Stated complaint: Issues with neck collar Time Seen by Provider: 11/07/23 11:51 Source: patient and old records reviewed Mode of arrival: ambulatory Limitations: no limitations History of Present Illness HPI narrative: Patient is a 57-year-old male with diagnosis of C-7 fracture on 10/28/23 presenting to the emergency department requesting change of Wanette collar. States that he was told to keep the collar on at all times, but complains that the collar has begun smelling very bad. He has follow up appointment with [facility] neurosurgery on 11/25/23 but states he cannot stand the smell that much longer. No other complaints. MD complaint: problem with Wanette collar Onset (ago): day(s) Associated symptoms: denies other symptoms Treatments prior to arrival: none Related Data Home Medications ?Medication ?Instructions ?Recorded ?Confirmed cholecalciferol (vitamin D3) 50 50 mcg PO DAILY 05/22/20 09/23/22 mcg (2,000 unit) capsule fluticasone propionate 220 1 puff inhalation BID 05/22/20 09/23/22 mcg/actuation HFA aerosol inhaler (Flovent HFA) ipratropium 20 mcg-albuterol 100 1 puff inhalation QID 05/22/20 09/23/22 mcg/actuation mist for inhalation (Combivent Respimat) oxycodone 15 mg tablet 15 mg PO Q6H 05/22/20 09/23/22 atorvastatin 20 mg tablet 20 mg PO DAILY 07/05/20 09/23/22 albuterol sulfate 2.5 mg/3 mL 1 vial inhalation QID 07/19/20 09/23/22 (0.083 %) solution for nebulization multivitamin (Daily-Petra tablet) 1 tab PO DAILY 07/19/20 09/23/22 divalproex 500 mg tablet,delayed 1,000 mg PO BID 08/29/21 09/23/22 release fluoxetine 20 mg capsule 20 mg PO DAILY 08/29/21 09/23/22 alprazolam 1 mg tablet 1 mg PO BID PRN Anxiety 10/08/21 09/23/22 gabapentin 600 mg tablet 600 mg PO BEDTIME 03/12/22 09/23/22 escitalopram oxalate 20 mg tablet 20 mg PO QAM 12/21/22 03/20/23 magnesium oxide 400 mg (241.3 mg 400 mg PO DAILY 06/26/22 09/23/22 magnesium) tablet lisinopril 5 mg tablet 10 mg PO BID 07/17/22 09/23/22 nebulizers 08/29/22 09/23/22 Previous Rx's ?Medication ?Instructions ?Recorded tamsulosin 0.4 mg capsule 0.4 mg PO DAILY 30 days #30 caps 06/26/22 sumatriptan succinate 100 mg 100 mg PO .COMPLEX #14 tabs 03/20/23 tablet (Imitrex) cyclobenzaprine 5 mg tablet 5 mg PO BEDTIME PRN muscle spasm 10/01/23 #7 tabs lidocaine 5 % topical patch 1 patch topical DAILY #15 ea 10/01/23 (Lidoderm) dexlansoprazole 60 mg 60 mg PO DAILY #90 caps 10/29/23 capsule,biphase delayed release famotidine 40 mg tablet 40 mg PO BEDTIME #90 tabs 10/29/23 taksly-yhgmrsfk-megzvua 1 cap PO QID 30 days #120 caps 10/29/23 24,000-76,000-120,000 unit capsule,delayed rel (Creon) ondansetron HCl 4 mg tablet 4 mg PO BID PRN for nausea #60 tabs 10/29/23 Allergies Allergy/AdvReac Type Severity Reaction Status Date / Time cat dander [CATS] Allergy Unknown UNKNOWN Verified 11/07/23 11:54 dog dander [DOGS] Allergy Unknown UNKNOWN Verified 11/07/23 11:54 pollen extracts [POLLEN] Allergy Unknown UNKNOWN Verified 11/07/23 11:54 tree and shrub pollen Allergy sneeze Verified 11/07/23 11:54 ibuprofen AdvReac causes Verified 11/07/23 11:54 stomach to bleed Review of Systems Review of Systems: As per HPI. Yes all other systems are reviewed and are negative Constitutional: Constitutional: Reports as per HPI [facility] Past Medical History Medical History Lipoma of back STEPHON (obstructive sleep apnea) COPD (chronic obstructive pulmonary disease) Chest pain Post herpetic neuralgia Multiple lipomas Osteoarthritis Gout History of peptic ulcer disease Hx of irritable bowel syndrome Chronic back pain Hx of insomnia History of panic attacks History of anxiety History of depression Asthma High cholesterol Hypertension Urinary retention Enlarged prostate Arthritis Slow urinary stream Marijuana use Alcohol abuse H/O ulcer disease Left flank pain Trochanteric bursitis, left hip Epidermal cyst Abdominal wall bulge Esophageal dysphagia Esophageal spasm Short frenulum of penis Balanitis Lipoma of back Elevated blood pressure reading in office with diagnosis of hypertension Thalamic pain syndrome Abnormal loss of weight Painful orthopaedic hardware Pain in unspecified toe(s) Incisional pain Surgical History S/P placement of nerve stimulator Hx of arthroscopy of left knee H/O neck surgery H/O breast surgery S/P excision of lipoma History of bunionectomy History of esophagogastroduodenoscopy (EGD) Hx of colonoscopy Family History Family History Family/Other Cancer Diabetes AIDS Brother Diabetes Myocardial infarction Father Enlarged prostate Mother Diabetes Asthma Social History Social History Are you a primary laboratory animal caretaker to a significant other at home: No Do you presently have visiting nurse or other home services: No Alcohol intake: never Patient Tobacco Use Status: Current everyday Tobacco user Cigarettes Per Day: 4 Substance Use Type: Marijuana service: No Current occupational status: unemployed Physical Exam ED Vital Signs: Vital signs have been reviewed and appear to be correct. Blood pressure normal. Heart rate normal. Respiratory rate normal. Temperature normal. Oxygen saturation normal. Const General: cooperative, healthy appearing and no acute distress Orientation/consciousness: oriented to person, oriented to place, oriented to time and patient oriented x3 Limitations: no limitations HENMT Head: Yes normocephalic and Yes atraumatic Ears: external ears normal General nose exam: Normal external nose present Face and sinus: Yes face symmetric Mouth: oropharynx normal and moist mucous membranes Throat: Yes uvula midline Eyes Pupils: Equal, round and reactive pupils present Neck Neck: Yes normal visual inspection and Yes supple Resp Effort & Inspection: normal respiratory effort and able to speak in complete sentences Auscultation: clear to auscultation bilaterally Cardio Rate: regular rate Rhythm: regular rhythm Heart sounds: S1 normal heart sound present and S2 normal heart sound present GI Palpation (GI): Soft to palpation and nontender Auscultation: normoactive bowel sounds General: Yes no CVA tenderness Back/Spine/Pelvis Back: no CVA tenderness Cervical Spine: collar present Skin General skin exam: elasticity normal and turgor normal Neuro General: oriented to person, oriented to place, oriented to time, patient oriented x3, moves all extremities, no focal motor deficits and CN's II-XI intact bilaterally Cranial nerves: Yes Equal, round and reactive pupils present Cognition (Neuro): normal cognition Extrem General: Yes full ROM, Yes no pedal edema and Yes no calf tenderness Psych Mental Status: mental status grossly normal Affect: normal affect Thought process: Normal thought process present Medical Decision Making Medical Decision Making MDM Narrative: Patient is a 57-year-old male with diagnosis of C-7 fracture on 10/28/23 presenting to the emergency department requesting change of Wanette collar. On exam patient is awake, A+Ox3, VS WNL, afebrile, normal neurological exam without focal deficits, physical exam findings as above. Given reported symptoms and physical exam findings, initial differential includes c-7 fracture. Patient placed supine on stretcher with c-spine immobilization while initial collar removed and new Wanette collar placed. Patient again instructed that the collar must remain in place at all times, that he is unable to shower or drive, and the importance of keeping his follow-up appointment with Neurology. Return precautions discussed. Patient verbalized understanding of and agreement with plan. Differential Diagnosis Differential Diagnoses: The differential diagnosis associated with the presentation includes As per MDM. External Record Review External record reviewed: Inpatient record, Office record and Outpatient record Discharge Plan Discharge Clinical Impression: Fracture of C7 vertebra, closed Patient Disposition: Home, Self-Care Instructions: Cervical Fracture (ED) Additional Instructions: You presented to the emergency department today to have your Wanette collar changed. As you were instructed before, do not remove the collar on your own at home. The collar must remain on at all times and you can not shower with the collar on. You can not drive with the collar on. Please keep your follow-up appointment with neurosurgery on 11/24. You were provided with additional padding for the collar but you are not allowed to change this on your own. The padding can be changed by Neurosurgery at your appointment. Return to the emergency department with any other concerns. Prescriptions: No Action sumatriptan succinate [Imitrex] 100 mg tablet 100 mg PO .COMPLEX Qty: 14 3RF Rx Instructions: 100 mg orally; multivitamin [Daily-Petra] Tablet 1 tab PO DAILY albuterol sulfate 2.5 mg /3 mL (0.083 %) solution for nebulization 1 vial inhalation QID alprazolam 1 mg tablet 1 mg PO BID PRN (Reason: Anxiety) lisinopril 5 mg tablet 10 mg PO BID cyclobenzaprine 5 mg tablet 5 mg PO BEDTIME PRN (Reason: muscle spasm) Qty: 7 0RF lidocaine [Lidoderm] 5 % adhesive patch,medicated 1 patch topical DAILY Qty: 15 0RF Rx Instructions: leave on most painful area for up to 12 hrs atorvastatin 20 mg tablet 20 mg PO DAILY oxycodone 15 mg tablet 15 mg PO Q6H cholecalciferol (vitamin D3) 50 mcg (2,000 unit) capsule 50 mcg PO DAILY Flovent HFA 220 mcg/actuation HFA aerosol inhaler 1 puff inhalation BID Combivent Respimat 20-100 mcg/actuation mist 1 puff inhalation QID fluoxetine 20 mg capsule 20 mg PO DAILY divalproex 500 mg tablet,delayed release (DR/EC) 1,000 mg PO BID gabapentin 600 mg tablet 600 mg PO BEDTIME magnesium oxide 400 mg (241.3 mg magnesium) tablet 400 mg PO DAILY escitalopram oxalate 20 mg tablet 20 mg PO QAM tamsulosin 0.4 mg capsule 0.4 mg PO DAILY 30 Days Qty: 30 3RF (DME) nebulizers Misc See Rx Instructions .Route Rx Instructions: As directed ondansetron HCl 4 mg tablet 4 mg PO BID PRN (Reason: for nausea) Qty: 60 0RF Creon 24,000-76,000 -120,000 unit capsule,delayed release(DR/EC) 1 cap PO QID 30 Days Qty: 120 6RF Rx Instructions: administer with meals and/or snacks famotidine 40 mg tablet 40 mg PO BEDTIME Qty: 90 2RF dexlansoprazole 60 mg capsule,biphase delayed releas 60 mg PO DAILY Qty: 90 1RF Print Language: Irish
[2023-11-07 11:53] VITALS: BP 118/76; PULSE 76; RESP 19; TEMP 36.6; O2SAT 99; BMI 29.2
[2023-11-07 12:23] VITALS: BP 118/76; PULSE 76; RESP 18; TEMP 36.6; O2SAT 99
== END 2023-11-07 12:27 | disposition home or self-care (01) ==
LOC: HO.ED 12:23
PROVIDERS: Emergency Provider Emergency Medicine; PCP Student in an Organized Health Care Education/Training Program
DX: S12.600D Unspecified displaced fracture of seventh cervical vertebra, subsequent encounter for fracture with routine healing (principal); X58.XXXD Exposure to other specified factors, subsequent encounter; I10 Essential (primary) hypertension
CPT/HCPCS: 99282

== ENCOUNTER 2023-11-11 07:56 | Outpatient (REF) | payer OTHER, SELFPAY | END 2023-11-11 07:57 | disposition home or self-care (01) | LOC: HO.MRI 07:56 | PROVIDERS: PCP Student in an Organized Health Care Education/Training Program; Visit Provider General Practice | DX: Z13.89 Encounter for screening for other disorder (principal) ==

== ENCOUNTER 2023-11-18 12:08 | Outpatient (REF) | payer OTHER, SELFPAY ==
[2023-11-21 08:48] LABS: Benzoylecgonine 494
== END 2023-11-18 12:09 | disposition home or self-care (01) ==
LOC: HO.HHCLNP 12:08
PROVIDERS: Visit Provider General Practice
DX: M25.511 Pain in right shoulder (principal); G89.29 Other chronic pain
CPT/HCPCS: 36415; 80353

== ENCOUNTER 2023-12-30 10:45 | Emergency (ER) | payer OTHER, SELFPAY ==
--- NOTE | ~2023-12-30 | XR_ITS ---
EXAMINATION: XR SHOULDER, RIGHT. XR HUMERUS, RIGHT. CLINICAL INFORMATION: Fall onto shoulder 3 weeks ago COMPARISON: Right shoulder radiographs 07/08/2022 TECHNIQUE: 3 views of the right shoulder. AP and lateral views of the right humerus. FINDINGS: No acute fracture or malalignment. Mild glenohumeral and acromioclavicular osteoarthritis, not significantly changed. XR/XR humerus RT IMPRESSION: No acute fracture or malalignment. Mild glenohumeral and acromioclavicular osteoarthritis.
--- NOTE | ~2023-12-30 | XR_ITS ---
EXAMINATION: XR SHOULDER, RIGHT. XR HUMERUS, RIGHT. CLINICAL INFORMATION: Fall onto shoulder 3 weeks ago COMPARISON: Right shoulder radiographs 07/08/2022 TECHNIQUE: 3 views of the right shoulder. AP and lateral views of the right humerus. FINDINGS: No acute fracture or malalignment. Mild glenohumeral and acromioclavicular osteoarthritis, not significantly changed. XR/XR shoulder RT min 2V IMPRESSION: No acute fracture or malalignment. Mild glenohumeral and acromioclavicular osteoarthritis.
--- NOTE | ~2023-12-30 | US_ITS ---
EXAMINATION: US VENOUS ULTRASOUND WITH DOPPLER LOWER EXTREMITY, LEFT CLINICAL INFORMATION: Calf pain COMPARISON: 10/01/2023 TECHNIQUE: Ultrasound of the deep veins is performed from the hip to the calf with compression sonography and color and pulse Doppler assessment. Spectral analysis with color-flow imaging is performed. FINDINGS: There is normal venous compression and respiratory variation and augmented flow. The visualized common femoral vein, superficial femoral vein, profunda femoral vein, popliteal vein, and the trifurcation region shows no evidence of deep venous thrombosis. There is no significant popliteal fossa cyst. If the patient's symptoms persist, followup ultrasound in 5 days 7 days might be of value to exclude proximal propagation from a non-visualized calf vein. US/US venous duplex LE LT IMPRESSION: No DVT demonstrated in the left lower extremity.
[2023-12-30 10:57] VITALS: BP 124/84; PULSE 87; RESP 16; TEMP 36.1; O2SAT 97; BMI 28.3
--- NOTE | 2023-12-30 12:00 | ED.GENADULT ---
HPI - General Adult General Chief complaint: General Medical Stated complaint: Pain R shoulder & L leg Time Seen by Provider: 12/30/23 11:45 Source: patient Mode of arrival: ambulatory Limitations: no limitations History of Present Illness ED Provider: MARGARITA HARRISON PA-C HPI narrative: 58 year old male with pmhx significant for depression, anxiety, panic attacks, HDL, HTN, COPD, gout, rheumatoid arthritis, asthma, STEPHON, and insomnia presents to the ED today for evaluation of right shoulder pain x3-4 weeks after falling onto the shoulder. He was not medically evaluated for this at the time of fall. He reports continued pain to right shoulder, making it difficult to sleep at night. He does take oxycodone 15mg 4 times daily for chronic arthritic pain and states that this helps temporarily. Additionally reports acute on chronic left calf pain. He was evaluated for this in the ED 3 months ago with unremarkable workup. He states that since this time he has had intermittent left calf pain. The calf is tender to the touch. Denies recent travel or long car rides. Denies chest pain, shortness of breath, hemoptysis. He has not on anticoagulation. Reports adequate hydration throughout the day. Related Data Home Medications ?Medication ?Instructions ?Recorded ?Confirmed cholecalciferol (vitamin D3) 50 50 mcg PO DAILY 05/22/20 09/23/22 mcg (2,000 unit) capsule fluticasone propionate 220 1 puff inhalation BID 05/22/20 09/23/22 mcg/actuation HFA aerosol inhaler (Flovent HFA) ipratropium 20 mcg-albuterol 100 1 puff inhalation QID 05/22/20 09/23/22 mcg/actuation mist for inhalation (Combivent Respimat) oxycodone 15 mg tablet 15 mg PO Q6H 05/22/20 09/23/22 atorvastatin 20 mg tablet 20 mg PO DAILY 07/05/20 09/23/22 albuterol sulfate 2.5 mg/3 mL 1 vial inhalation QID 07/19/20 09/23/22 (0.083 %) solution for nebulization multivitamin (Daily-Petra tablet) 1 tab PO DAILY 07/19/20 09/23/22 divalproex 500 mg tablet,delayed 1,000 mg PO BID 08/29/21 09/23/22 release fluoxetine 20 mg capsule 20 mg PO DAILY 08/29/21 09/23/22 alprazolam 1 mg tablet 1 mg PO BID PRN Anxiety 10/08/21 09/23/22 gabapentin 600 mg tablet 600 mg PO BEDTIME 03/12/22 09/23/22 escitalopram oxalate 20 mg tablet 20 mg PO QAM 06/26/22 09/23/22 magnesium oxide 400 mg (241.3 mg 400 mg PO DAILY 06/26/22 09/23/22 magnesium) tablet lisinopril 5 mg tablet 10 mg PO BID 07/17/22 09/23/22 nebulizers 08/29/22 09/23/22 Previous Rx's ?Medication ?Instructions ?Recorded tamsulosin 0.4 mg capsule 0.4 mg PO DAILY 30 days #30 caps 06/26/22 sumatriptan succinate 100 mg 100 mg PO .COMPLEX #14 tabs 03/20/23 tablet (Imitrex) cyclobenzaprine 5 mg tablet 5 mg PO BEDTIME PRN muscle spasm 10/01/23 #7 tabs lidocaine 5 % topical patch 1 patch topical DAILY #15 ea 10/01/23 (Lidoderm) dexlansoprazole 60 mg 60 mg PO DAILY #90 caps 10/29/23 capsule,biphase delayed release famotidine 40 mg tablet 40 mg PO BEDTIME #90 tabs 10/29/23 [id number] 1 cap PO QID 30 days #120 caps 10/29/23 24,000-76,000-120,000 unit capsule,delayed rel (Creon) ondansetron HCl 4 mg tablet 4 mg PO BID PRN for nausea #60 tabs 10/29/23 Allergies Allergy/AdvReac Type Severity Reaction Status Date / Time cat dander [CATS] Allergy Unknown UNKNOWN Verified 12/30/23 11:00 dog dander [DOGS] Allergy Unknown UNKNOWN Verified 12/30/23 11:00 pollen extracts [POLLEN] Allergy Unknown UNKNOWN Verified 12/30/23 11:00 tree and shrub pollen Allergy sneeze Verified 12/30/23 11:00 ibuprofen AdvReac causes Verified 12/30/23 11:00 stomach to bleed Review of Systems Review of Systems: Constitutional: No fever, chills, fatigue, night sweats, weight changes ENT/Mouth: No ear pain, hearing loss, nasal congestion, sinus pain, rhinorrhea, sore throat Eyes: No eye pain, swelling, redness, vision changes, discharge Cardio: No chest pain, palpitations, WALKER, orthopnea, peripheral edema Pulm: No SOB, cough, sputum, wheezing, dyspnea, hemoptysis GI: No nausea, vomiting, hematemesis, abdominal pain, diarrhea, constipation, hematochezia, melena : No irregular bleeding, dysuria, frequency, urgency, hesitancy, hematuria, flank pain, urinary flow changes, urinary incontinence or retention MSK: No back pain, neck pain, joint pain, myalgias, +right shoulder pain, +left calf pain Skin: No lesions, rashes Neuro: No weakness, numbness, paresthesias, LOC, dizziness, headache Psych: No anxiety/panic, depression, SI/HI, AH/VH All other systems reviewed and are negative. [facility] Past Medical History Attestation statement: The following information was validated with the patient. Source: old records reviewed and nursing notes reviewed Medical History Lipoma of back STEPHON (obstructive sleep apnea) COPD (chronic obstructive pulmonary disease) Chest pain Post herpetic neuralgia Multiple lipomas Osteoarthritis Gout History of peptic ulcer disease Hx of irritable bowel syndrome Chronic back pain Hx of insomnia History of panic attacks History of anxiety History of depression Asthma High cholesterol Hypertension Urinary retention Enlarged prostate Arthritis Slow urinary stream Marijuana use Alcohol abuse H/O ulcer disease Left flank pain Trochanteric bursitis, left hip Epidermal cyst Abdominal wall bulge Esophageal dysphagia Esophageal spasm Short frenulum of penis Balanitis Lipoma of back Elevated blood pressure reading in office with diagnosis of hypertension Thalamic pain syndrome Abnormal loss of weight Painful orthopaedic hardware Pain in unspecified toe(s) Incisional pain Surgical History S/P placement of nerve stimulator Hx of arthroscopy of left knee H/O neck surgery H/O breast surgery S/P excision of lipoma History of bunionectomy History of esophagogastroduodenoscopy (EGD) Hx of colonoscopy Family History Family History Family/Other Cancer Diabetes AIDS Brother Diabetes Myocardial infarction Father Enlarged prostate Mother Diabetes Asthma Social History Social History Are you a primary rn transitional care to a significant other at home: No Do you presently have visiting nurse or other home services: No Alcohol intake: never Patient Tobacco Use Status: Current everyday Tobacco user Cigarettes Per Day: 4 Substance Use Type: Marijuana Advance Directives: No Advance Directives Information Provided: Yes Do you have a plan to hurt others: No Plan service: No Current occupational status: unemployed Physical Exam ED Vital Signs: Vital Signs - 24 hr 12/30/23 10:57 Temperature 97 F Pulse Rate 87 Respiratory Rate 16 Blood Pressure 124/84 Pulse Oximetry 97 Oxygen Delivery Method Room Air BMI result Body Mass Index 28.3 Vital signs stable. Not hypoxic. Not tachycardic. Const General: cooperative, healthy appearing, comfortable and no acute distress Orientation/consciousness: patient oriented x3 Limitations: no limitations HENMT Head: Yes normal to inspection, Yes No palpable skull fracture present, Yes normocephalic and Yes atraumatic Eyes General: appearance normal, both eyes and all related structures Neck Neck: Yes normal visual inspection, Yes full ROM and Yes no lymphadenopathy Chest Chest palpation & inspection: normal inspection of the chest and normal palpation of entire chest wall Resp Effort & Inspection: normal respiratory effort and able to speak in complete sentences Auscultation: clear to auscultation bilaterally Cardio Rate: regular rate Rhythm: regular rhythm Back/Spine/Pelvis Other: No midline spinous tenderness or step off deformity. No paraspinal muscle tenderness. Skin General skin exam: no rashes or lesions noted Neuro Other: Strength 5/5 intact throughout.? No saddle anesthesia.? Sensation intact to light touch.? Neurovascular intact distally.? General: patient oriented x3 Extrem Other: + no overlying skin changes or deformity noted to right shoulder. full ROM intact to right shoulder with pain on flexion. Tender to palpation of anterior shoulder at lateral aspect of right upper extremity without palpable deformities, crepitus, fluctuance. No warmth. + left calf tender to palpation without warmth or overlying redness. ambulating with steady gait Course Course Course Narrative: 7708 -- CBC without leukocytosis or left shift. Normocytic anemia, chronic when compared to priors. H&H stable at 12.1/35.6. Chemistry without acute electrolyte abnormality requiring intervention. U tox positive for opiates, oxy, benzos, marijuana. X-ray right humerus/shoulder without fracture or malalignment however does demonstrate mild glenohumeral and acromioclavicular osteoarthritis. Venous duplex left lower extremity without acute VTE. > no clear etiology for patient's symptoms. Patient does take oxycodone 4 times daily. I do not feel as though he needs to be discharged home with any other pain medication. Patient has remained stable throughout ED visit today. Discussed worrisome signs and symptoms and when to return to the ED. All questions answered at this time. Patient is agreeable with disposition and stable for discharge. Medications Administered Discontinued Medications Generic Name Dose Route Start Last Admin Trade Name Freq PRN Reason Stop Dose Admin Sodium Chloride 1,000 mls @ 999 mls/hr 12/30/23 12:30 12/30/23 12:42 Ns IV 12/30/23 13:30 999 mls/hr .Q1H1M SAEID Administration Medical Decision Making Medical Decision Making [facility] Narrative: 58 year old male with pmhx significant for depression, anxiety, panic attacks, HDL, HTN, COPD, gout, rheumatoid arthritis, asthma, STEPHON, and insomnia presents to the ED today for evaluation of right shoulder pain x3-4 weeks after falling onto the shoulder. Vital signs stable. Patient is nontoxic-appearing and in no acute distress. On exam, no overlying skin changes or deformity noted to right shoulder. full ROM intact to right shoulder with pain on flexion. Tender to palpation of anterior shoulder at lateral aspect of right upper extremity without palpable deformities, crepitus, fluctuance. No warmth. left calf tender to palpation without warmth or overlying redness. ambulating with steady gait. Neurovascularly intact distally. Sensation intact to light touch. Differential diagnosis includes msk sprain msk strain, muscle spasm, fracture, dislocation, contusion, dehydration, electrolyte derangement, anemia. unlikely DVT, PE, NV compromise, threat to limb, compartment syndrome. Plan for labs, xrays, duplex US, IVF, and re-evaluation. Differential Diagnosis Differential Diagnoses: The differential diagnosis associated with the presentation includes as above. Admission/Observation Not indicated Lab Data [facility] Lab Attestation statement: I reviewed the patient's lab results. As above 12/30/23 12:48 12/30/23 12:48 Labs: Lab Results 12/30/23 12/30/23 Range/Units 12:48 15:43 WBC 5.9 (4.8-10.8) X10*3/uL RBC 3.90 L (4.60-5.80) X10*6/uL Hgb 12.1 L (14.0-18.0) g/dl Hct 35.6 L (42.0-52.0) % MCV 91.3 (80.0-98.0) fL MCH 31.0 (27.0-33.0) pg MCHC 34.0 (31.0-36.0) g/dl RDW 13.8 (11.0-16.0) % Plt Count 213 (160-400) X10*3/uL MPV 9.3 L (9.4-12.4) fL Immature Gran % (Auto) 0.3 (0.0-0.4) % Neut % (Auto) 61.2 (45-73) % Lymph % (Auto) 28.1 (20-40) % Bell % (Auto) 7.5 (2-11) % Eos % (Auto) 2.6 (0-4) % Baso % (Auto) 0.3 (0-2) % Lymph # (Auto) 1.7 (1.2-4.9) X10*3/uL Bell # (Auto) 0.4 (0.1-1.2) X10*3/uL Eos # (Auto) 0.2 (0.0-0.4) X10*3/uL Baso # (Auto) 0.0 (0.0-0.2) X10*3/uL Abs Immat Gran (auto) 0.02 (0.00-0.03) X10*3/uL Absolute Neuts (auto) 3.6 (2.0-8.3) x10*3/uL Absolute Nucleated RBC 0.000 (0.0-0.012) X10*3/uL Nucleated RBC % (auto) 0.0 (0.0-0.2) /100WBC Sodium 143 (135-145) mmol/L Potassium 4.1 (3.3-5.1) mmol/L Chloride 108 (96-108) mmol/L Carbon Dioxide 30 H (22-29) mmol/L Anion Gap 9 L (12-20) BUN 13 (9-16) mg/dL Creatinine 0.85 (0.5-1.4) mg/dL Estim Creat Clear Calc 92.9 Estimated GFR > 60 Random Glucose 110 (60-115) mg/dL Calcium 9.1 (8.4-10.2) mg/dL Magnesium 1.9 (1.6-2.6) mg/dL Total Bilirubin 0.4 (0.0-1.0) mg/dL AST 14 (5-37) U/L ALT 18 (0-40) U/L Alkaline Phosphatase 77 (39-117) U/L Total Creatine Kinase 84 (38-174) U/L Total Protein 6.0 L (6.5-8.0) g/dL Albumin 3.5 (3.5-5.0) g/dL Lipase 15 (8-78) U/L Urine Opiates Screen POSITIVE H (Not Detect) Ur Buprenorphine Scrn Not Detected (Not Detect) ng/mL Ur Oxycodone Screen Positive H (Not Detect) ng/mL Urine Methadone Screen Not Detected (Not Detect) ng/mL Urine Fentanyl Screen Not Detected (Not Detect) Ur Barbiturates Screen Not Detected (Not Detect) Ur Phencyclidine Scrn Not Detected (Not Detect) Ur Amphetamines Screen Not Detected (Not Detect) U Benzodiazepines Scrn POSITIVE H (Not Detect) Urine Cocaine Screen Not Detected (Not Detect) U Marijuana (THC) Screen POSITIVE H (Not Detect) Independent Interpretation I performed an independent interpretation of an: Plain X-Ray and Ultrasound Interpretation: X-ray right shoulder without acute fracture, agree with radiologist's interpretation. X-ray right humerus without acute fracture, agree with radiologist's interpretation. Venous duplex left lower extremity without acute DVT, agree with radiologist's interpretation. Radiology Impression Discussion of test interpretation with radiology: I have reviewed the radiologist's reading. Radiologist Impression: EXAMINATION: US VENOUS ULTRASOUND WITH DOPPLER LOWER EXTREMITY, LEFT CLINICAL INFORMATION: Calf pain COMPARISON: 10/01/2023 TECHNIQUE: Ultrasound of the deep veins is performed from the hip to the calf with compression sonography and color and pulse Doppler assessment. Spectral analysis with color-flow imaging is performed. FINDINGS: There is normal venous compression and respiratory variation and augmented flow. The visualized common femoral vein, superficial femoral vein, profunda femoral vein, popliteal vein, and the trifurcation region shows no evidence of deep venous thrombosis. There is no significant popliteal fossa cyst. If the patient's symptoms persist, followup ultrasound in 5 days 7 days might be of value to exclude proximal propagation from a non-visualized calf vein. US/US venous duplex LE IMPRESSION: No DVT demonstrated in the left lower extremity. EXAMINATION: XR SHOULDER, RIGHT. XR HUMERUS, RIGHT. CLINICAL INFORMATION: Fall onto shoulder 3 weeks ago COMPARISON: Right shoulder radiographs 07/08/2022 TECHNIQUE: 3 views of the right shoulder. AP and lateral views of the right humerus. FINDINGS: No acute fracture or malalignment. Mild glenohumeral and acromioclavicular osteoarthritis, not significantly changed. XR/XR shoulder RT min 2V IMPRESSION: No acute fracture or malalignment. Mild glenohumeral and acromioclavicular osteoarthritis. External Record Review External record reviewed: Inpatient record, Office record, Outpatient record, Prior outpatient labs, Prior outpatient radiology, Primary care record and Outside ED record Prescription Management I considered prescription management with: Pain Medication Chronic Conditions Patient?s care impacted by: Other (chronic pain, osteoarthritis) Social Determinants Patient?s care significantly limited by Social Determinants of Health including: Other Social Determinant of Health Critical Care Time Critical Care Time Critical Care Time: No Discharge Plan Discharge Clinical Impression: Right shoulder pain Patient Disposition: Home, Self-Care Instructions: Shoulder Pain (ED), Arm Pain (ED) Additional Instructions: Your blood work today is reassuring. The xrays of your right shoulder and humerus do not exhibit fracture. They do demonstrate degenerative changes within the joint consistent with arthritis. There is no clear etiology for your shoulder pain. You may have strained the shoulder. The ultrasound of your left leg does not demonstrate clot. Your work up is essentially unremarkable. There is no clear etiology for your symptoms. You may continue taking oxycodone for pain as needed at home. Apply ice and heat to the area for 20 minutes at a time. Follow up with your primary care provider. Return with new or worsening symptoms. In the case of an emergency call 911. Prescriptions: No Action sumatriptan succinate [Imitrex] 100 mg tablet 100 mg PO .COMPLEX Qty: 14 3RF Rx Instructions: 100 mg orally; multivitamin [Daily-Petra] Tablet 1 tab PO DAILY albuterol sulfate 2.5 mg /3 mL (0.083 %) solution for nebulization 1 vial inhalation QID alprazolam 1 mg tablet 1 mg PO BID PRN (Reason: Anxiety) lisinopril 5 mg tablet 10 mg PO BID cyclobenzaprine 5 mg tablet 5 mg PO BEDTIME PRN (Reason: muscle spasm) Qty: 7 0RF lidocaine [Lidoderm] 5 % adhesive patch,medicated 1 patch topical DAILY Qty: 15 0RF Rx Instructions: leave on most painful area for up to 12 hrs atorvastatin 20 mg tablet 20 mg PO DAILY oxycodone 15 mg tablet 15 mg PO Q6H cholecalciferol (vitamin D3) 50 mcg (2,000 unit) capsule 50 mcg PO DAILY Flovent HFA 220 mcg/actuation HFA aerosol inhaler 1 puff inhalation BID Combivent Respimat 20-100 mcg/actuation mist 1 puff inhalation QID fluoxetine 20 mg capsule 20 mg PO DAILY divalproex 500 mg tablet,delayed release (DR/EC) 1,000 mg PO BID gabapentin 600 mg tablet 600 mg PO BEDTIME magnesium oxide 400 mg (241.3 mg magnesium) tablet 400 mg PO DAILY escitalopram oxalate 20 mg tablet 20 mg PO QAM tamsulosin 0.4 mg capsule 0.4 mg PO DAILY 30 Days Qty: 30 3RF (DME) [facility]bulizers [facility] See Rx Instructions .Route Rx Instructions: As directed ondansetron HCl 4 mg tablet 4 mg PO BID PRN (Reason: for nausea) Qty: 60 0RF Creon 24,000-76,000 -120,000 unit capsule,delayed release(DR/EC) 1 cap PO QID 30 Days Qty: 120 6RF Rx Instructions: administer with meals and/or snacks famotidine 40 mg tablet 40 mg PO BEDTIME Qty: 90 2RF dexlansoprazole 60 mg capsule,biphase delayed releas 60 mg PO DAILY Qty: 90 1RF Referrals: Amy Pickett MD [Primary Care Provider] - Print Language: Kinyarwanda
[2023-12-30] MEDS: 0.9 % Sodium Chloride 1,000 ML 999 ML IV (12:42)
--- NOTE | 2023-12-30 12:44 | PC.NURSE ---
20g IV placed in L-AC. 1L IVF infusing per order
[2023-12-30 12:51] LABS: MANUAL DIFF FLAG NO
[2023-12-30 12:53] LABS: Basophils Percent Auto 0.3 % (0-2); Eosinophils Absolute Auto 0.2 X10*3/uL (0.0-0.4); Eosinophils Percent Auto 2.6 % (0-4); Hematocrit 35.6 % (42.0-52.0); Hemoglobin 12.1 g/dl (14.0-18.0); Imm Gran Abs Auto 0.02 X10*3/uL (0.00-0.03); Imm Gran Pct Auto 0.3 % (0.0-0.4); Lymphocytes Absolute Auto 1.7 X10*3/uL (1.2-4.9); Lymphocytes Percent Auto 28.1 % (20-40); Mean Corpuscular Volume 91.3 fL (80.0-98.0); Mean Platelet Volume 9.3 fL (9.4-12.4); Monocytes Absolute Auto 0.4 X10*3/uL (0.1-1.2); Monocytes Percent Auto 7.5 % (2-11); Neutrophils Absolute Auto 3.6 x10*3/uL (2.0-8.3); Neutrophils Percent Auto 61.2 % (45-73); Platelet Count 213 X10*3/uL (160-400); Red Cell Distribution Width 13.8 % (11.0-16.0); White Blood Count 5.9 X10*3/uL (4.8-10.8)
[2023-12-30 13:14] LABS: Alanine Aminotransferase 18 U/L (0-40); Albumin Level 3.5 g/dL (3.5-5.0); Alkaline Phosphatase 77 U/L (39-117); Anion Gap 9 (12-20); Aspartate Amino Transferase 14 U/L (5-37); Bilirubin Total 0.4 mg/dL (0.0-1.0); Blood Urea Nitrogen 13 mg/dL (9-16); Calcium 9.1 mg/dL (8.4-10.2); Carbon Dioxide 30 mmol/L (22-29); Chloride 108 mmol/L (96-108); Creatinine Clr Calc Pharmacy 92.9; Estimated Glomerular Filt Rate > 60; Glucose Random 110 mg/dL (60-115); Lipase 15 U/L (8-78); Magnesium 1.9 mg/dL (1.6-2.6); Potassium 4.1 mmol/L (3.3-5.1); Sodium 143 mmol/L (135-145)
--- NOTE | 2023-12-30 15:41 | PC.NURSE ---
pt awaiting imaging results approx 400mls of 1L NS remaining to infuse call lyon within reach
[2023-12-30 16:07] LABS: Amphetamine Screen Urine Not Detected (Not Detect); Barbiturates, Urine Not Detected (Not Detect); Benzodiazepines Screen Urine POSITIVE (Not Detect); Buprenorphine Scr Not Detected (Not Detect); Cannabinoid Screen Urine POSITIVE (Not Detect); Cocaine Screen Urine Not Detected (Not Detect); Fentanyl, urine Not Detected (Not Detect); Methadone Screen, Urine Not Detected (Not Detect); Opiate Screen Urine POSITIVE (Not Detect); Oxycodone Screen Urine Positive (Not Detect); Phencyclidine Screen Urine Not Detected (Not Detect)
[2023-12-30 16:50] VITALS: BP 124/84; PULSE 87; RESP 16; TEMP 36.1; O2SAT 97
== END 2023-12-30 16:51 | disposition home or self-care (01) ==
PROVIDERS: Physician Assistant Medical; Emergency Provider Emergency Medicine; PCP Student in an Organized Health Care Education/Training Program
DX: M25.511 Pain in right shoulder (principal); M79.605 Pain in left leg; R11.0 Nausea; R60.0 Localized edema; M25.50 Pain in unspecified joint; Z79.899 Other long term (current) drug therapy; Z51.81 Encounter for therapeutic drug level monitoring
CPT/HCPCS: 36415; 73030; 73060; 80053; 80307; 82550; 83690; 83735; 85025; 93971; 96360; 96361; 99283; 99284

== ENCOUNTER 2024-01-13 12:58 | Outpatient (REF) | payer OTHER, SELFPAY ==
[2024-01-13 13:15] LABS: Appearance Urine Clear; Color Urine Yellow; Glucose Urine UA Negative (Negative); Leukocyte Esterase Urine Negative (Negative); Nitrite Urine Negative (Negative); PH 5.5 (5.0-9.0); Urine Blood Negative (Negative); Urine Ketones Negative (Negative); Urine Protein Negative (Neg-Trace)
[2024-01-13 13:41] LABS: Bacteria Urine None Seen (None Seen); Hyaline Casts Urine 0-2 /LPF (0-2); RBC Urine 0-2 /HPF (0-2); Squamous Epithelial Cell Urine 0-2 /HPF (0-2); WBC Urine 0-5 /HPF (0-5)
[2024-01-13 15:20] LABS: CT PCR NOT DETECTED (Not Detect.); NG PCR NOT DETECTED (Not Detect.)
== END 2024-01-13 12:59 | disposition home or self-care (01) ==
LOC: HO.HHCLNP 12:58
PROVIDERS: Visit Provider Emergency Medicine
DX: M47.812 Spondylosis without myelopathy or radiculopathy, cervical region (principal)
CPT/HCPCS: 81001; 87491; 87591

== ENCOUNTER 2024-01-28 07:40 | Outpatient (AMB) | payer OTHER, SELFPAY ==
--- NOTE | 2024-01-28 08:49 | A.OFFVIS_ITS ---
Vital Signs 01/28/24 09:09 Height 5 ft 5 in Weight 175 lb 0.752 oz BMI 29.1 BP 124/70 Blood Pressure Location Lt brachial Position Sitting Pulse 63 Intake Visit Reasons: 3 months follow up Intake Note: Patient presents to in office visit today in 3 months follow up of GERD. CC:Patient reports that he has been having right shoulder pain that radiates to his neck and triggers his migraines. He is not able to lift it up. Truck Jumper Required: No Accompanied by: Daughter Allergies cat dander [CATS] Allergy (Unknown, Verified 01/28/24 09:21) UNKNOWN dog dander [DOGS] Allergy (Unknown, Verified 01/28/24 09:21) UNKNOWN pollen extracts [POLLEN] Allergy (Unknown, Verified 01/28/24 09:21) UNKNOWN tree and shrub pollen Allergy (Verified 01/28/24 09:21) sneeze ibuprofen Adverse Reaction (Verified 01/28/24 09:21) causes stomach to bleed HPI HPI 3 months follow up: Details: Assessment & Plan (1) GERD (gastroesophageal reflux disease): Code(s): K21.9 - Gastro-esophageal reflux disease without esophagitis Category: Medical (2) Irritable bowel syndrome with diarrhea: Code(s): K58.0 - Irritable bowel syndrome with diarrhea Category: Medical (3) Periumbilical abdominal pain: Code(s): R10.33 - Periumbilical pain Category: Medical (4) Dysphagia: Comment: occasional in upper oropharyngeal area Code(s): R13.10 - Dysphagia, unspecified Category: Medical Plan He is here today with his daughter and granddson. He got a muscle cramp and tripped forward and hit his forehead on the trunk of his car, then fell backwards and was unconscious for an undetermined amt of time. He hurt his knee and broke a cervical vertebrae. He is wearing a neck brace. He is having CHILD's like my eyes want to pop out. He likely has a coup countercoup concussion as well. He presented [place] [facility] We discuss his compression of the L5-S1 nerve root. He notes very rotten egg taste and (his dtr says) malodorous flatulence with eating eggs and drinking milk. I educate him on trying Lactaid milk and ice cream, He dislikes yogurt. He is having appetite problems, I can go days w/o eating at all. He attributes this to having a living hell where I live. He has a restraining order on a woman in his apt complex. His family tries to get him Boost but they di/c'ed the strawberry flavor. He is limited in trying different brands r/t insurance coverage. He has been losing his hearing over the past few months and is trying to get hearing aids. They are trying to find a local tire classifier as his insurance wants to send him to [place]. He continues on his GI regimen which consists of Dexilant, famotidine, Creon, and p.r.n. Zofran. He does not feel we need to make any changes to it at this time. He believes that his weight loss is more related to his social difficulties provoking his anxiety. ROV 3 mos Orders: Orders FL barium swallow 10/29/23 R13.10 - Dysphagia, unspecified Medications: Refilled oztici-bekavqhj-oeavgdh 24,000-76,000 -120,000 unit (Creon) administer with meals and/or snacks 1 cap PO QID 120 caps 6RF 30 days K58.9 - Irritable bowel syndrome without diarrhea famotidine 40 mg PO BEDTIME 90 tabs 2RF K21.9 - Gastro-esophageal reflux disease without esophagitis ondansetron HCl 4 mg PO BID PRN 60 tabs 0RF for nausea dexlansoprazole 60 mg PO DAILY 90 caps 1RF BARIUM SWALLOW. ? At end of February TODAYS VISIT He is here today with his dtr who is supportive He continues on his GI regimen which consists of Dexilant, famotidine, Creon, and p.r.n. Zofran. He is doing ok, no more diarrhea his stools are formed. He continues to have dysphagia in the early phase, he has a globus sensation and feels like I have a cold and have to spit up phlem, sometimes it is black and sometimes it is green. He has to have liquid to wash down solid foods. He tells me he has a drain from his tear d uct to his nose and he has a lot of allergies. ROV after barium swallow [facility] Medical History Nausea and vomiting Dyspnea Photophobia Headache Syncope Chest pain Chest pain Dysphagia Seizure Lipoma of back STEPHON (obstructive sleep apnea) COPD (chronic obstructive pulmonary disease) Post herpetic neuralgia Multiple lipomas Osteoarthritis Gout History of peptic ulcer disease Hx of irritable bowel syndrome Chronic back pain Hx of insomnia History of panic attacks History of anxiety History of depression Asthma High cholesterol Hypertension Urinary retention Enlarged prostate Arthritis Slow urinary stream Marijuana use Alcohol abuse H/O ulcer disease Left flank pain Trochanteric bursitis, left hip Epidermal cyst Abdominal wall bulge Esophageal dysphagia Esophageal spasm Short frenulum of penis Balanitis Lipoma of back Elevated blood pressure reading in office with diagnosis of hypertension Thalamic pain syndrome Abnormal loss of weight Painful orthopaedic hardware Pain in unspecified toe(s) Incisional pain Surgical History S/P placement of nerve stimulator Hx of arthroscopy of left knee H/O neck surgery H/O breast surgery S/P excision of lipoma History of bunionectomy History of esophagogastroduodenoscopy (EGD) Hx of colonoscopy Family History Family/Other Cancer Diabetes AIDS Brother Diabetes Myocardial infarction Father Enlarged prostate Mother Diabetes Asthma Social History Are you a primary women's health care nurse practitioner to a significant other at home: No Do you presently have visiting nurse or other home services: No Alcohol intake: never Patient Tobacco Use Status: Current everyday Tobacco user Cigarettes Per Day: 4 Substance Use Type: Marijuana service: No Current occupational status: unemployed Review of Systems Const Denies fatigue, Denies fever(s), Denies night sweats, Denies poor appetite and Denies weight loss Eyes Reports blurry vision ENT Reports Normal hearing present, Denies dental pain, Denies dysphagia, Denies hearing loss, Denies mouth pain, Denies odynophagia, Denies throat swelling, Denies tongue swelling and Reports other (Dentition adequate) Card Reports no additional complaints Resp Reports no additional complaints GI Details: Denies abdominal pain, Denies melena, Reports bloating, Denies hematochezia, Reports constipation, Denies GI cramping, Denies dysphagia, Denies excessive flatus, Denies early satiety, Reports heartburn, Denies diarrhea, Reports nausea, Denies odynophagia, Denies vomiting and Denies hematemesis Skin/Breast Denies pruritus, Denies lesions, Denies rash and Denies jaundice Neuro Reports Normal hearing present and Denies Abnormal speech present Endo Denies fatigue Aller/Immun Denies throat swelling and Denies tongue swelling Physical Exam Vital Signs: Last Vital Signs Pulse 63 01/28/24 09:09 BP 124/70 01/28/24 09:09 BMI result Body Mass Index 29.1 Const General: cooperative, no acute distress, well developed and well groomed Nutritional Appearance: well nourished and overweight Orientation/consciousness: oriented to person, oriented to place and oriented to time Limitations: language barrier and ambulation with cane HEENT Head: Yes normocephalic and Yes atraumatic Eyes General: appearance normal, both eyes and all related structures Pupils: Equal, round and reactive pupils present Neck Neck: Yes normal visual inspection and Yes no lymphadenopathy Thyroid: Thyroid normal Resp Effort & Inspection: normal respiratory effort and able to speak in complete sentences Auscultation: clear to auscultation bilaterally Cardio Rate: regular rate Rhythm: regular rhythm Heart sounds: Normal, physiologic split S2 sound present Peripheral pulses: radial pulses present and posterior tibial pulses present GI Inspection: No distended, No Abdominal panniculus present and Yes obesity Palpation (GI): Soft to palpation, nontender, no guarding, not rigid and No hepatosplenomegaly present Percussion: Yes normal to percussion Auscultation: normal bowel sounds Rectal Exam - Male: Yes deferred Skin General skin exam: no rashes or lesions noted, turgor normal, skin not dry, no jaundice, No spider nevi and no striae Rashes: no rashes Nails: normal Neuro General: oriented to person, oriented to place and oriented to time Cranial nerves: Yes Equal, round and reactive pupils present and Yes Normal he aring present Speech: No Abnormal speech present Extrem General: Yes normal to inspection, No clubbing, No cyanosis and No edema Psych Appearance: grossly normal and well kempt Mental Status: mental status grossly normal Speech and movement: Normal speech and movement present Affect: normal affect Attitude: cooperative Thought process: Normal thought process present and not confabulating Thought content: Normal thought content present Insight: Limited insight present (Psych) Judgement: Limited judgement present (Psych) Assessment & Plan Assessment & Plan (1) GERD (gastroesophageal reflux disease): Code(s): K21.9 - Gastro-esophageal reflux disease without esophagitis Category: Medical (2) Irritable bowel syndrome with diarrhea: Code(s): K58.0 - Irritable bowel syndrome with diarrhea Category: Medical (3) Periumbilical abdominal pain: Code(s): R10.33 - Periumbilical pain Category: Medical (4) Oropharyngeal dysphagia: Code(s): R13.12 - Dysphagia, oropharyngeal phase Category: Medical Plan He is here today with his dtr who is supportive He continues on his GI regimen which consists of Dexilant, famotidine, Creon, and p.r.n. Zofran. He is doing ok, no more diarrhea his stools are formed. He continues to have dysphagia in the early phase, he has a globus sensation and feels like I have a cold and have to spit up phlem, sometimes it is black and sometimes it is green. He has to have liquid to wash down solid foods. He tells me he has a drain from his tear d uct to his nose and he has a lot of allergies. ROV after barium swallow BARIUM SWALLOW. ? At end of February Coding Level of Care Code Est Pt Level 3 (50682) Diagnoses GERD (gastroesophageal reflux disease) K21.9 Irritable bowel syndrome with diarrhea K58.0 Periumbilical abdominal pain R10.33 Oropharyngeal dysphagia R13.12
[2024-01-28 09:09] VITALS: BP 124/70; PULSE 63; BMI 29.1
== END 2024-01-28 09:53 | disposition home or self-care (01) ==
PROVIDERS: PCP Student in an Organized Health Care Education/Training Program; Visit Provider Nurse Practitioner
DX: K21.9 Gastro-esophageal reflux disease without esophagitis (principal); K58.0 Irritable bowel syndrome with diarrhea; R10.33 Periumbilical pain; R13.12 Dysphagia, oropharyngeal phase
CPT/HCPCS: 99213

== ENCOUNTER → 2024-01-28 07:40 | Outpatient (BNVA) | payer OTHER, SELFPAY | PROVIDERS: PCP Student in an Organized Health Care Education/Training Program; Visit Provider Nurse Practitioner | DX: K21.9 Gastro-esophageal reflux disease without esophagitis (principal); K58.0 Irritable bowel syndrome with diarrhea; R10.33 Periumbilical pain; R13.12 Dysphagia, oropharyngeal phase | CPT/HCPCS: 99212 ==

== ENCOUNTER 2024-03-03 07:32 | Outpatient (REF) | payer OTHER, SELFPAY ==
--- NOTE | ~2024-03-03 | FL_ITS ---
EXAMINATION: XR FLUOROSCOPY UPPER GI WITH AIR CLINICAL INFORMATION: Dysphagia COMPARISON: None TECHNIQUE: Fluoroscopic air contrast upper GI examination was performed utilizing standard techniques with thin and thick barium and effervescent granules. Numerous spot images were obtained. FINDINGS: Lateral cine images of the oropharynx and hypopharynx demonstrate normal swallow mechanism with normal epiglottic inversion and soft palate elevation. No tracheal penetration, glottic or subglottic aspiration identified. No nasopharyngeal reflux present. Hypopharyngeal structures appear normal without evidence of mass or diverticulum. There was no significant cricopharyngeal achalasia. Status post cervical discectomy at C5-C6. Dual and single contrast images of the esophagus demonstrate normal caliber, contour, and mucosal pattern. There is felinization of the mid and distal esophageal mucosa. No evidence of stricture, mass, or ulcerations identified. There is to and fro motion of the barium with nonpropulsive tertiary contractions noted throughout the esophagus. A small type I hiatal hernia is present. No significant gastroesophageal reflux was seen during the course of the examination and on reflux views. Dual contrast and single contrast images of the stomach demonstrated a normal contour. There are multiple small foci of contrast pooling in the body and fundus of the stomach that may represent small superficial apthous ulcers. No masses are present. Contrast freely passed into the gastric antrum and duodenal bulb without delay. Single and air-contrast images of the duodenal bulb demonstrate no abnormality. The duodenal sweep has a normal appearance, course, and mucosal fold appearance. The imaged proximal jejunum has a normal fold pattern and caliber. FLUOROSCOPY TIME: 4 minutes 12 seconds Number of Spot Images: 10 Number of Cine: 15 DOSE AREA PRODUCT: 2536 uGy-m2 (microgray-meter squared) FL/FL barium swallow with air IMPRESSION: 1. Felinization of the mid and distal esophageal mucosa. This is a benign finding associated chronic reflux. 2. Esophageal dysmotility. 3. Small type I hiatal hernia. 4. Multiple small foci of contrast pooling in the body and fundus of the stomach that may represent small superficial abscess ulcers. Recommend correlation with EGD. 5. Status post ACDF C5-C6. This procedure was performed by Nilesh Chavez PA-C, and supervised by Dr. Elliott Electronically signed by: Salvador Elliott MD 03/04/2024 03:19 PM EDT
== END 2024-03-03 07:33 | disposition home or self-care (01) ==
LOC: HO.XRAY 07:32
PROVIDERS: PCP Student in an Organized Health Care Education/Training Program; Visit Provider Nurse Practitioner
DX: R13.10 Dysphagia, unspecified (principal)
CPT/HCPCS: 74221

== ENCOUNTER → 2024-03-03 07:33 | Outpatient (BNV) | payer OTHER, SELFPAY | PROVIDERS: PCP Student in an Organized Health Care Education/Training Program; Visit Provider Radiology Diagnostic Radiology | DX: R13.10 Dysphagia, unspecified (principal) | CPT/HCPCS: 74221 ==

== ENCOUNTER 2024-03-19 09:27 | Outpatient (REF) | payer OTHER, SELFPAY ==
[2024-03-19 12:09] LABS: Hematocrit 42.1 % (42.0-52.0); Hemoglobin 13.7 g/dl (14.0-18.0); Mean Corpuscular HGB Conc 32.5 g/dl (31.0-36.0); Mean Corpuscular Hemoglobin 30.9 pg (27.0-33.0); Mean Platelet Volume 9.8 fL (9.4-12.4); Platelet Count 254 X10*3/uL (160-400); Red Blood Count 4.43 X10*6/uL (4.60-5.80); Red Cell Distribution Width 14.6 % (11.0-16.0); White Blood Count 7.9 X10*3/uL (4.8-10.8)
[2024-03-19 12:21] LABS: Estimated Average Glucose 105 mg/dL; Hemoglobin A1c % 5.3 % (<6.0)
[2024-03-19 12:30] LABS: Alanine Aminotransferase 29 U/L (0-40); Albumin Level 4.1 g/dL (3.5-5.0); Alkaline Phosphatase 82 U/L (39-117); Anion Gap 12 (12-20); Aspartate Amino Transferase 17 U/L (5-37); Bilirubin Total 0.4 mg/dL (0.0-1.0); Blood Urea Nitrogen 13 mg/dL (9-16); C Reactive Protein 0.53 mg/dL (< or = 0.50); Calcium 9.6 mg/dL (8.4-10.2); Carbon Dioxide 26 mmol/L (22-29); Chloride 108 mmol/L (96-108); Cholesterol 259 mg/dL (<200); Estimated Glomerular Filt Rate > 60; Glucose Random 101 mg/dL (60-115); HDL Cholesterol 53 mg/dL (>40); LDL Cholesterol Calculated 183 mg/dL (<100); Potassium 4.4 mmol/L (3.3-5.1); Sodium 142 mmol/L (135-145); Total Protein 6.8 g/dL (6.5-8.0); Triglycerides 117 mg/dL (<150)
[2024-03-19 12:43] LABS: Syphilis Screen Nonreactive (Nonreactive)
[2024-03-19 12:46] LABS: Microalbumin Urine < 5.0 mg/L
[2024-03-19 12:49] LABS: TSH reflex Free T4 1.14 uIU/mL (0.32-4.0)
[2024-03-19 12:51] LABS: HBS Num1 19.23 mIU/mL (0-7.99); HBc Num1 0.16 S/CO (0.00-0.79); HBsAGNum1 0.27 S/CO (0.00-0.99); HIV AB/AG Nonreactive (Nonreactive); HIV Num 1 0.05 S/CO (0.00-0.99); Hepatitis B Core Antibody Nonreactive (Nonreactive); Hepatitis B Surface Antigen Negative (Negative); Rheumatoid Factor < 13.0 IU/mL (<15.0); ~HepC Num1 1.24 S/CO (0.00-0.79); ~Hepatitis B Surface Antibody REACTIVE (Nonreactive); ~Hepatitis C Antibody Reactive (Nonreactive)
[2024-03-19 12:52] LABS: Erythrocyte Sedimentation Rate 10 MM/HR (0-15)
[2024-03-19 12:55] LABS: Folate 7.9 ng/mL (> or = 4.0); Prostate Specific Antigen 0.29 ng/mL (<0.05-4.0); Vitamin B12 197 pg/mL (200-900)
[2024-03-23 21:12] LABS: HCV Log PCR <1.18 NOT DETECTED Log IU/mL (NOT DETECTED); HepC Viral Load <15 NOT DETECTED IU/mL (NOT DETECTED)
[2024-03-24 16:02] LABS: Anti Nuclear Antibody Pattern Nuclear, Homogeneous; Anti Nuclear Antibody Screen POSITIVE (NEGATIVE); Anti Nuclear Antibody Titer 1:40 titer
[2024-03-25 20:48] LABS: Cyclic Citrullinated Peptide <16 UNITS
== END 2024-03-19 09:28 | disposition home or self-care (01) ==
LOC: HO.HHCL 09:27
PROVIDERS: Visit Provider Student in an Organized Health Care Education/Training Program
DX: Z00.00 Encounter for general adult medical examination without abnormal findings (principal); M19.90 Unspecified osteoarthritis, unspecified site; Z12.5 Encounter for screening for malignant neoplasm of prostate; Z13.1 Encounter for screening for diabetes mellitus
CPT/HCPCS: 36415; 80053; 80061; 82043; 82306; 82570; 82607; 82746; 83036; 84153; 84443; 85027; 85652; 86038; 86039; 86140; 86200; 86431; 86704; 86706; 86780; 86803; 87340; 87389; 87522

== ENCOUNTER 2024-03-30 12:12 | Emergency (ER) | payer OTHER, SELFPAY ==
--- NOTE | ~2024-03-30 | CT_ITS ---
EXAMINATION: CT HEAD WITHOUT CONTRAST CLINICAL INFORMATION: Altered mental status. COMPARISON: None. TECHNIQUE: Contiguous axial imaging was performed from the skullbase to vertex without intravenous administration of contrast. This CT examination was performed using dose optimization techniques as appropriate, variously including the following: *Automated exposure control *Adjustment of mA and/or kV according to patient size (this includes techniques or standardized protocols for targeted exams where dose is matched to indication/reason for exam; i.e. extremities or head) *Use of iterative reconstruction technique DLP: 698 mGy-cm. FINDINGS: There is no evidence of acute intracranial hemorrhage or territorial infarction. No abnormal mass effect or midline shift is seen. Cheng to white matter differentiation is well preserved. No extra-axial fluid collections are identified. The ventricles are normal in size. There is no abnormal attenuation within the brain parenchyma. The osseous structures and soft tissues are normal. The visualized portions of the paranasal sinuses are well aerated. There are mild dependent mastoid effusions. CT/CT head/brain wo IV con IMPRESSION: No acute intracranial pathology. Electronically signed by: Natanael Levin MD 03/30/2024 02:15 PM EDT
[2024-03-30 12:59] VITALS: BP 138/87; PULSE 76; RESP 16; TEMP 36.6; O2SAT 95; BMI 29.5
--- NOTE | 2024-03-30 13:07 | ED.GENADULT ---
HPI - General Adult General Chief complaint: General Medical Stated complaint: Fatigued, dehydrated Related Data Home Medications ?Medication ?Instructions ?Recorded ?Confirmed cholecalciferol (vitamin D3) 50 50 mcg PO DAILY 05/22/20 09/23/22 mcg (2,000 unit) capsule fluticasone propionate 220 1 puff inhalation BID 05/22/20 09/23/22 mcg/actuation HFA aerosol inhaler (Flovent HFA) ipratropium 20 mcg-albuterol 100 1 puff inhalation QID 05/22/20 09/23/22 mcg/actuation mist for inhalation (Combivent Respimat) oxycodone 15 mg tablet 15 mg PO Q6H 05/22/20 09/23/22 atorvastatin 20 mg tablet 20 mg PO DAILY 07/05/20 09/23/22 albuterol sulfate 2.5 mg/3 mL 1 vial inhalation QID 07/19/20 09/23/22 (0.083 %) solution for nebulization multivitamin (Daily-Petra tablet) 1 tab PO DAILY 07/19/20 09/23/22 divalproex 500 mg tablet,delayed 1,000 mg PO BID 08/29/21 09/23/22 release fluoxetine 20 mg capsule 20 mg PO DAILY 08/29/21 09/23/22 alprazolam 1 mg tablet 1 mg PO BID PRN Anxiety 10/08/21 09/23/22 gabapentin 600 mg tablet 600 mg PO BEDTIME 03/12/22 09/23/22 escitalopram oxalate 20 mg tablet 20 mg PO QAM 06/26/22 09/23/22 magnesium oxide 400 mg (241.3 mg 400 mg PO DAILY 06/26/22 09/23/22 magnesium) tablet lisinopril 5 mg tablet 10 mg PO BID 07/17/22 09/23/22 nebulizers 08/29/22 09/23/22 varenicline 0.5 mg tablet 0.5 mg PO DIRECTED 01/28/24 Previous Rx's ?Medication ?Instructions ?Recorded tamsulosin 0.4 mg capsule 0.4 mg PO DAILY 30 days #30 caps 06/26/22 sumatriptan succinate 100 mg 100 mg PO .COMPLEX #14 tabs 03/20/23 tablet (Imitrex) cyclobenzaprine 5 mg tablet 5 mg PO BEDTIME PRN muscle spasm 10/01/23 #7 tabs lidocaine 5 % topical patch 1 patch topical DAILY #15 ea 10/01/23 (Lidoderm) dexlansoprazole 60 mg 60 mg PO DAILY #90 caps 10/29/23 capsule,biphase delayed release famotidine 40 mg tablet 40 mg PO BEDTIME #90 tabs 10/29/23 oxdjvt-mrihyghv-qmbaxcj 1 cap PO QID 30 days #120 caps 10/29/23 24,000-76,000-120,000 unit capsule,delayed rel (Creon) ondansetron HCl 4 mg tablet 4 mg PO BID PRN for nausea #60 tabs 10/29/23 Allergies Allergy/AdvReac Type Severity Reaction Status Date / Time cat dander [CATS] Allergy Unknown UNKNOWN Verified 03/30/24 13:05 dog dander [DOGS] Allergy Unknown UNKNOWN Verified 03/30/24 13:05 pollen extracts [POLLEN] Allergy Unknown UNKNOWN Verified 03/30/24 13:05 tree and shrub pollen Allergy sneeze Verified 03/30/24 13:05 ibuprofen AdvReac causes Verified 03/30/24 13:05 stomach to bleed PMFSH Past Medical History Medical History (Updated 03/31/24 @ 17:06 by RUBEN Escobar) Nicotine dependence, cigarettes, uncomplicated Nausea and vomiting Dyspnea Photophobia Headache Syncope Chest pain Dysphagia Seizure Lipoma of back STEPHON (obstructive sleep apnea) COPD (chronic obstructive pulmonary disease) Post herpetic neuralgia Multiple lipomas Osteoarthritis Gout History of peptic ulcer disease Hx of irritable bowel syndrome Chronic back pain Hx of insomnia History of panic attacks History of anxiety History of depression Asthma High cholesterol Hypertension Urinary retention Enlarged prostate Arthritis Slow urinary stream Marijuana use Alcohol abuse H/O ulcer disease Left flank pain Trochanteric bursitis, left hip Epidermal cyst Abdominal wall bulge Esophageal dysphagia Esophageal spasm Short frenulum of penis Balanitis Elevated blood pressure reading in office with diagnosis of hypertension Thalamic pain syndrome Abnormal loss of weight Painful orthopaedic hardware Pain in unspecified toe(s) Incisional pain Surgical History (Updated 03/11/24 @ 11:02 by Masha Gaines PA-C) S/P placement of nerve stimulator H/O neck surgery Hx of arthroscopy of left knee H/O breast surgery S/P excision of lipoma History of bunionectomy History of cystoscopy History of colonoscopy History of esophagogastroduodenoscopy (EGD) Family History Family History Family/Other Cancer Diabetes AIDS Brother Diabetes Myocardial infarction Father Enlarged prostate Mother Diabetes Asthma Social History Social History Are you a primary director of medicare to a significant other at home: No Do you presently have visiting nurse or other home services: No Alcohol intake: never Patient Tobacco Use Status: Current everyday Tobacco user Cigarettes Per Day: 4 Substance Use Type: Marijuana Advance Directives: No service: No Current occupational status: unemployed Physical Exam ED Vital Signs: Vital Signs - 24 hr 03/30/24 12:59 Temperature 97.9 F Pulse Rate 76 Respiratory Rate 16 Blood Pressure 138/87 Pulse Oximetry 95 Oxygen Delivery Method Room Air BMI result Body Mass Index 29.5 Course Course Course Narrative: This is a rapid medical exam performed by Regina Alcaraz PA-C. The patient is a 58-year-old male with history of chronic pain syndrome on high-dose opiate therapy. He states he has had ongoing fatigue, insomnia and decreased p.o. intake. Patient saw his primary care provider who felt he was altered from his baseline and was sent here for further assessment. On exam, the patient appears drowsy, he is speaking in full sentences although speech is slow. He is generally weak, no focal weakness noted in any extremity. He is answering questions appropriately he knows who he is where he was, however he can not tell me the specific date. We will obtain a CT of the brain, screening labs including ethanol and drug screen, UA as well. He will return to the weight room pending his full assessment. Reevaluation(s) Reevaluation #1: The patient left without completing their assessment Medical Decision Making Lab Data 03/30/24 14:39 03/30/24 14:39 Labs: Lab Results 03/30/24 Range/Units 14:39 WBC 7.5 (4.8-10.8) X10*3/uL RBC 4.44 L (4.60-5.80) X10*6/uL Hgb 14.0 (14.0-18.0) g/dl Hct 41.4 L (42.0-52.0) % MCV 93.2 (80.0-98.0) fL MCH 31.5 (27.0-33.0) pg MCHC 33.8 (31.0-36.0) g/dl RDW 14.4 (11.0-16.0) % Plt Count 222 (160-400) X10*3/uL MPV 9.1 L (9.4-12.4) fL Immature Gran % (Auto) 0.4 (0.0-0.4) % Neut % (Auto) 79.4 H (45-73) % Lymph % (Auto) 16.4 L (20-40) % [place] % (Auto) 3.3 (2-11) % Eos % (Auto) 0.4 (0-4) % Baso % (Auto) 0.1 (0-2) % Lymph # (Auto) 1.2 (1.2-4.9) X10*3/uL [place] # (Auto) 0.3 (0.1-1.2) X10*3/uL Eos # (Auto) 0.0 (0.0-0.4) X10*3/uL Baso # (Auto) 0.0 (0.0-0.2) X10*3/uL Abs Immat Gran (auto) 0.03 (0.00-0.03) X10*3/uL Absolute Neuts (auto) 6.0 (2.0-8.3) x10*3/uL Absolute Nucleated RBC 0.000 (0.0-0.012) X10*3/uL Nucleated RBC % (auto) 0.0 (0.0-0.2) /100WBC Sodium 141 (135-145) mmol/L Potassium 4.0 (3.3-5.1) mmol/L Chloride 108 (96-108) mmol/L Carbon Dioxide 25 (22-29) mmol/L Anion Gap 12 (12-20) BUN 15 (9-16) mg/dL Creatinine 0.88 (0.5-1.4) mg/dL Estim Creat Clear Calc 88.4 Estimated GFR > 60 Random Glucose 169 H (60-115) mg/dL Calcium 9.3 (8.4-10.2) mg/dL Magnesium 2.1 (1.6-2.6) mg/dL Total Bilirubin 0.6 (0.0-1.0) mg/dL AST 16 (5-37) U/L ALT 25 (0-40) U/L Alkaline Phosphatase 75 (39-117) U/L Total Protein 6.9 (6.5-8.0) g/dL Albumin 4.1 (3.5-5.0) g/dL Urine Color Dark Yellow Urine Appearance Clear Urine pH 5.0 (5.0-9.0) Ur Specific [place] >= 1.030 H (1.005-1.025) Urine Protein 30 (1+) H (Neg-Trace) mg/dL Urine Glucose (UA) Negative (Negative) mg/dL Urine Ketones Trace (Negative) mg/dL Urine Blood Negative (Negative) Urine Nitrite Negative (Negative) Ur Leukocyte Esterase Negative (Negative) Urine RBC 0-2 (0-2) /HPF Urine WBC 0-5 (0-5) /HPF Ur Squamous Epith Cells 0-2 (0-2) /HPF Urine Bacteria None Seen (None Seen) Hyaline Casts 0-2 (0-2) /LPF Urine Opiates Screen POSITIVE H (Not Detect) Ur Buprenorphine Scrn Not Detected (Not Detect) ng/mL Ur Oxycodone Screen Positive H (Not Detect) ng/mL Urine Methadone Screen Not Detected (Not Detect) ng/mL Urine Fentanyl Screen Not Detected (Not Detect) Ur Barbiturates Screen Not Detected (Not Detect) Ur Phencyclidine Scrn Not Detected (Not Detect) Ur Amphetamines Screen Not Detected (Not Detect) U Benzodiazepines Scrn POSITIVE H (Not Detect) Urine Cocaine Screen Not Detected (Not Detect) U Marijuana (THC) Screen POSITIVE H (Not Detect) Ethyl Alcohol < 10 mg/dL Discharge Plan Discharge Clinical Impression: Weakness Patient Disposition: Left W/O Completing Treatment Prescriptions: No Action sumatriptan succinate [Imitrex] 100 mg tablet 100 mg PO .COMPLEX Qty: 14 3RF Rx Instructions: 100 mg orally; multivitamin [Daily-Petra] Tablet 1 tab PO DAILY albuterol sulfate 2.5 mg /3 mL (0.083 %) solution for nebulization 1 vial inhalation QID alprazolam 1 mg tablet 1 mg PO BID PRN (Reason: Anxiety) lisinopril 5 mg tablet 10 mg PO BID cyclobenzaprine 5 mg tablet 5 mg PO BEDTIME PRN (Reason: muscle spasm) Qty: 7 0RF lidocaine [Lidoderm] 5 % adhesive patch,medicated 1 patch topical DAILY Qty: 15 0RF Rx Instructions: leave on most painful area for up to 12 hrs atorvastatin 20 mg tablet 20 mg PO DAILY oxycodone 15 mg tablet 15 mg PO Q6H cholecalciferol (vitamin D3) 50 mcg (2,000 unit) capsule 50 mcg PO DAILY Flovent HFA 220 mcg/actuation HFA aerosol inhaler 1 puff inhalation BID Combivent Respimat 20-100 mcg/actuation mist 1 puff inhalation QID fluoxetine 20 mg capsule 20 mg PO DAILY divalproex 500 mg tablet,delayed release (DR/EC) 1,000 mg PO BID gabapentin 600 mg tablet 600 mg PO BEDTIME magnesium oxide 400 mg (241.3 mg magnesium) tablet 400 mg PO DAILY escitalopram oxalate 20 mg tablet 20 mg PO QAM tamsulosin 0.4 mg capsule 0.4 mg PO DAILY 30 Days Qty: 30 3RF (DME) nebulizers Misc See Rx Instructions .Route Rx Instructions: As directed ondansetron HCl 4 mg tablet 4 mg PO BID PRN (Reason: for nausea) Qty: 60 0RF Creon 24,000-76,000 -120,000 unit capsule,delayed release(DR/EC) 1 cap PO QID 30 Days Qty: 120 6RF Rx Instructions: administer with meals and/or snacks famotidine 40 mg tablet 40 mg PO BEDTIME Qty: 90 2RF dexlansoprazole 60 mg capsule,biphase delayed releas 60 mg PO DAILY Qty: 90 1RF varenicline 0.5 mg tablet 0.5 mg PO DIRECTED Rx Instructions: take 1 tablet by mouth daily on days 1-3; then 1 tablet twice daily (morning and evening) on days 4-7 Discharge Date/Time: 03/30/24 19:39
[2024-03-30 14:50] LABS: MANUAL DIFF FLAG NO
[2024-03-30 14:51] LABS: Basophils Percent Auto 0.1 % (0-2); Eosinophils Percent Auto 0.4 % (0-4); Hematocrit 41.4 % (42.0-52.0); Imm Gran Abs Auto 0.03 X10*3/uL (0.00-0.03); Imm Gran Pct Auto 0.4 % (0.0-0.4); Lymphocytes Absolute Auto 1.2 X10*3/uL (1.2-4.9); Lymphocytes Percent Auto 16.4 % (20-40); Mean Corpuscular HGB Conc 33.8 g/dl (31.0-36.0); Mean Corpuscular Hemoglobin 31.5 pg (27.0-33.0); Mean Corpuscular Volume 93.2 fL (80.0-98.0); Mean Platelet Volume 9.1 fL (9.4-12.4); Monocytes Absolute Auto 0.3 X10*3/uL (0.1-1.2); Monocytes Percent Auto 3.3 % (2-11); Neutrophils Percent Auto 79.4 % (45-73); Platelet Count 222 X10*3/uL (160-400); Red Blood Count 4.44 X10*6/uL (4.60-5.80); Red Cell Distribution Width 14.4 % (11.0-16.0); White Blood Count 7.5 X10*3/uL (4.8-10.8)
[2024-03-30 14:52] LABS: Appearance Urine Clear; Color Urine Dark Yellow; Glucose Urine UA Negative (Negative); Leukocyte Esterase Urine Negative (Negative); Nitrite Urine Negative (Negative); Specific Gravity - Urine >= 1.030 (1.005-1.025); UMIC TRIGGER UACC YES; Urine Blood Negative (Negative); Urine Ketones Trace mg/dL (Negative); Urine Protein 30 (1+) mg/dL (Neg-Trace)
[2024-03-30 14:54] LABS: Bacteria Urine None Seen (None Seen); Hyaline Casts Urine 0-2 /LPF (0-2); RBC Urine 0-2 /HPF (0-2); Squamous Epithelial Cell Urine 0-2 /HPF (0-2); WBC Urine 0-5 /HPF (0-5)
[2024-03-30 15:06] LABS: Amphetamine Screen Urine Not Detected (Not Detect); Barbiturates, Urine Not Detected (Not Detect); Benzodiazepines Screen Urine POSITIVE (Not Detect); Buprenorphine Scr Not Detected (Not Detect); Cannabinoid Screen Urine POSITIVE (Not Detect); Cocaine Screen Urine Not Detected (Not Detect); Fentanyl, urine Not Detected (Not Detect); Methadone Screen, Urine Not Detected (Not Detect); Opiate Screen Urine POSITIVE (Not Detect); Oxycodone Screen Urine Positive (Not Detect); Phencyclidine Screen Urine Not Detected (Not Detect)
[2024-03-30 15:07] LABS: Ethanol < 10 mg/dL
[2024-03-30 15:10] LABS: Alanine Aminotransferase 25 U/L (0-40); Albumin Level 4.1 g/dL (3.5-5.0); Alkaline Phosphatase 75 U/L (39-117); Anion Gap 12 (12-20); Aspartate Amino Transferase 16 U/L (5-37); Bilirubin Total 0.6 mg/dL (0.0-1.0); Blood Urea Nitrogen 15 mg/dL (9-16); Calcium 9.3 mg/dL (8.4-10.2); Carbon Dioxide 25 mmol/L (22-29); Chloride 108 mmol/L (96-108); Creatinine Clr Calc Pharmacy 88.4; Estimated Glomerular Filt Rate > 60; Glucose Random 169 mg/dL (60-115); Magnesium 2.1 mg/dL (1.6-2.6); Sodium 141 mmol/L (135-145); Total Protein 6.9 g/dL (6.5-8.0)
== END 2024-03-30 19:39 | disposition left against medical advice (07) ==
PROVIDERS: Physician Assistant Medical; Emergency Provider Emergency Medicine; PCP Student in an Organized Health Care Education/Training Program
DX: R53.83 Other fatigue (principal); E86.0 Dehydration; R41.82 Altered mental status, unspecified; Z79.899 Other long term (current) drug therapy; Z51.81 Encounter for therapeutic drug level monitoring; F17.210 Nicotine dependence, cigarettes, uncomplicated
CPT/HCPCS: 36415; 70450; 80053; 80307; 81001; 83735; 85025; 99282; 99284

== ENCOUNTER 2024-04-09 09:43 | Outpatient (AMB) | payer OTHER, SELFPAY ==
--- NOTE | 2024-04-09 08:26 | MHC.OFFVIS ---
Intake Visit Reasons: Current Smoker Allergies cat dander [CATS] Allergy (Unknown, Verified 03/30/24 13:05) UNKNOWN dog dander [DOGS] Allergy (Unknown, Verified 03/30/24 13:05) UNKNOWN pollen extracts [POLLEN] Allergy (Unknown, Verified 03/30/24 13:05) UNKNOWN tree and shrub pollen Allergy (Verified 03/30/24 13:05) sneeze ibuprofen Adverse Reaction (Verified 03/30/24 13:05) causes stomach to bleed HPI HPI Current Smoker: Details: Initial visit for this 58yo smoker with a 40PYH. Patient started smoking at age 16 for 42 years at 1ppd. Cut down to 1/2ppd over last 6 months. . Reports daily marijuana use. Denies second hand smoke exposure. Denies exposure to chemicals or substances like asbestos. . Reports family history of lung cancer. Father at 89 lung and colon cancer. Denies personal history of cancers. Denies chest CT in last year. . Denies recent travel outside the [place]. Denies recent respiratory illness or recent hospitalization for respiratory issues. Denies testing positive for COVID. Admits receiving COVID Vaccine. . Complains of stopping breathing at night and trouble sleeping. Has sleep test coming up. Denies fever, chills, new/worsening cough, hemoptysis, hoarseness or dysphagia. Denies significant chest pain, significant dyspnea or unintentional weight loss. Patient Lung Cancer Screening Questionnaire reviewed with patient by provider. . Shared Decision Making Completed. Patient meets criteria. Discussed in detail with patient, the risk vs benefit of LDCT screening. Patient consents to proceed with scan. Discussed smoking cessation. [facility] Medical History (Updated 04/09/24 @ 10:03 by Masha Gaines PA-C) Nicotine dependence, cigarettes, uncomplicated Nausea and vomiting Dyspnea Photophobia Headache Syncope Chest pain Dysphagia Seizure Lipoma of back STEPHON (obstructive sleep apnea) COPD (chronic obstructive pulmonary disease) Post herpetic neuralgia Multiple lipomas Osteoarthritis Gout History of peptic ulcer disease Hx of irritable bowel syndrome Chronic back pain Hx of insomnia History of panic attacks History of anxiety History of depression Asthma High cholesterol Hypertension Urinary retention Enlarged prostate Arthritis Slow urinary stream Marijuana use Alcohol abuse H/O ulcer disease Left flank pain Trochanteric bursitis, left hip Epidermal cyst Abdominal wall bulge Esophageal dysphagia Esophageal spasm Short frenulum of penis Balanitis Elevated blood pressure reading in office with diagnosis of hypertension Thalamic pain syndrome Abnormal loss of weight Painful orthopaedic hardware Pain in unspecified toe(s) Incisional pain Surgical History (Updated 03/11/24 @ 11:02 by Masha Gaines PA-C) S/P placement of nerve stimulator H/O neck surgery Hx of arthroscopy of left knee H/O breast surgery S/P excision of lipoma History of bunionectomy History of cystoscopy History of colonoscopy History of esophagogastroduodenoscopy (EGD) Family History Family/Other Cancer Diabetes AIDS Brother Diabetes Myocardial infarction Father Enlarged prostate Mother Diabetes Asthma Social History (Updated 04/09/24 @ 10:04 by Masha Gaines PA-C) Are you a primary resident care spec to a significant other at home: No Do you presently have visiting nurse or other home services: No Alcohol intake: never Patient Tobacco Use Status: Current everyday Tobacco user Cigarettes Per Day: 4 Years Smoked: (onset 16yo, 1ppd x 42yrs, now 1/2ppd - 40pyh) Substance Use Type: Marijuana service: No Current occupational status: unemployed Assessment & Plan Assessment & Plan (1) Nicotine dependence, cigarettes, uncomplicated: Comment: (onset 16yo, 1ppd x 42yrs, now 1/2ppd - 40pyh) Code(s): F17.210 - Nicotine dependence, cigarettes, uncomplicated Category: Medical Plan: - SDM visit completed today in office. - Patient meets criteria for LDCT for lung cancer screening purposes and is asymptomatic. - Smoking cessation counseling offered. Patients can always call [phone]. - Will arrange for a LDCT scan of the chest for screening purposes at [facility]. - Risks, benefits, and alternatives were discussed in detail and the patient agrees to proceed. - Risks discussed include but are not limited to: radiation exposure, anxiety during testing and while awaiting results, false negatives, false positives and possibility of additional intervention such as further imaging or surgical procedures for benign disease. - Benefits are obviously detection of lung cancer at an early stage which can lead to improved outcomes. - Discussed the importance of screening program compliance with adherence to yearly LDCT scan as scheduled - or sooner interval scans for personalized screening regimen. - Discussed follow up plan. Our office will send a letter discussing results and if needed set up phone call and office visit based on CT findings. - Patient educated on results categorization and the management decisions for suspicious findings potentially found on the screening LDCT scan. Any patient with a Lung RADS score of 3 or 4 will be reviewed by a multidisciplinary team at [facility] to form a plan of action in regards to scan findings. - If further work up is warranted for a suspicious lung finding this will be followed by the Lung Cancer Screening program in conjunction with the Thoracic Surgery Department at [facility]. - A copy of the office note and LDCT will be sent to the patient's PCP - as well as documentation on any associated further plans of care. - Incidental findings on LDCT are the PCP's responsibility. These findings are indicated with an S finding on the LDCT Assessment. A note discussing the findings will be sent to the PCP who is then responsible for further management. - All questions answered.? Coding Level of Care Code Lung Cancer Screening G0296 Diagnoses Nicotine dependence, cigarettes, uncomplicated F17.210
== END 2024-04-09 10:11 | disposition home or self-care (01) ==
PROVIDERS: PCP Student in an Organized Health Care Education/Training Program; Visit Provider Physician Assistant Medical
DX: F17.210 Nicotine dependence, cigarettes, uncomplicated (principal)
CPT/HCPCS: G0296

== ENCOUNTER 2024-04-09 10:07 | Outpatient (REF) | payer OTHER, SELFPAY ==
--- NOTE | ~2024-04-09 | CT_ITS ---
EXAMINATION: CT LOW-DOSE SCREENING CHEST WITHOUT CONTRAST CLINICAL INFORMATION: Nicotine dependence, cigarettes, uncomplicated. The patient is a current smoker with a 21 pack-year history of smoking. COMPARISON: X-ray chest 07/08/2022. CT chest 10/03/2021. TECHNIQUE: Multidetector volumetric CT imaging of the chest is performed on a Siemens SOMATOM Definition scanner without contrast using low dose technique. Additional 2D coronal and sagittal reformatted images and axial 3D maximum intensity projection (MIP) images are generated on the CT workstation. This CT examination was performed using dose optimization techniques as appropriate, variously including the following: *Automated exposure control *Adjustment of mA and/or kV according to patient size (this includes techniques or standardized protocols for targeted exams where dose is matched to indication/reason for exam; i.e. extremities or head) *Use of iterative reconstruction technique TOTAL EXAM DLP: 47 mGy-cm. CTDIvol: 1.56 mGy. FINDINGS: PULMONARY NODULES: No suspicious pulmonary nodules. LUNGS: Lungs bilaterally symmetrically expanded. There is mild emphysema along with bronchial thickening without bronchiectasis. Dependent mucus is present in the right and to a lesser extent left mainstem bronchus. No effusion or pneumothorax. Central airways patent. MEDIASTINUM: No mediastinal, hilar or axillary adenopathy or free fluid collection. CORONARY ARTERY CALCIFICATION: None visualized on this study. THYROID GLAND: Unremarkable to the extent seen. CARDIOVASCULAR STRUCTURES: Aortic and heart size normal. No pericardial effusion. CHEST WALL/AXILLA: Unremarkable. UPPER ABDOMEN: Included portions of the solid organs in the upper abdomen unremarkable on noncontrast imaging. OSSEOUS STRUCTURES: No suspicious focal findings. CT/CT lung screening IMPRESSION: No finding seen suspicious for malignancy. ASSESSMENT: 1. Lung-RADS Category 1: Negative. There are no nodules or there are definitely benign nodules. N/A 2. Lung-RADS Category S: Negative. There are no clinically significant or potentially clinically significant findings not related to the lungs requiring urgent additional evaluation. RECOMMENDATION: Continued routine annual low-dose CT lung screening in 1 year is recommended. An order for CT CHEST LOW DOSE CANCER SCREENING ([id number]) can be placed. Electronically signed by: Jose Marie MD 05/26/2024 01:41 PM [facility]
== END 2024-04-09 10:08 | disposition home or self-care (01) ==
LOC: HO.CT 10:07
PROVIDERS: PCP Student in an Organized Health Care Education/Training Program; Visit Provider Physician Assistant Medical
DX: Z12.2 Encounter for screening for malignant neoplasm of respiratory organs (principal); F17.210 Nicotine dependence, cigarettes, uncomplicated
CPT/HCPCS: 71271; G0296

== ENCOUNTER 2024-04-28 10:26 | Outpatient (AMB) | payer OTHER, SELFPAY ==
--- NOTE | 2024-04-28 10:35 | MHC.OFFVIS ---
Vital Signs 04/28/24 10:36 Height 5 ft 4 in Weight 170 lb BMI 29.2 BP 118/60 Blood Pressure Location Rt brachial Position Sitting Pulse 90 Pulse Source Pulse Oximeter Pulse Oximetry (%) 95 Oxygen Delivery Method Room Air Intake Visit Reasons: Obstructive sleep apnea [employer] Records Clerk Required: No Allergies cat dander [CATS] Allergy (Unknown, Verified 04/28/24 10:35) UNKNOWN dog dander [DOGS] Allergy (Unknown, Verified 04/28/24 10:35) UNKNOWN pollen extracts [POLLEN] Allergy (Unknown, Verified 04/28/24 10:35) UNKNOWN tree and shrub pollen Allergy (Verified 04/28/24 10:35) sneeze ibuprofen Adverse Reaction (Verified 04/28/24 10:35) causes stomach to bleed HPI Comments Details: The patient is a 58-year-old gentleman with a known history of tobacco dependency in addition to COPD who apparently was being evaluated for cardiac disease. The patient did undergo a CT of the coronary arteries at [facility]. It actually demonstrated a density within the left mainstem bronchus resulting in a partial obstruction of the airway. Subsequently also has some haziness and irregularities to the left lower lobe parenchyma. Based on the abnormality he was referred to Pulmonary. The patient does complaint increased cough and also complains of left-sided chest discomfort. On further questions he does have a history of shingles in the past. The skin is very sensitive suggesting of dermatomal distribution likely from post herpetic neuralgia. Other new neuropathies may be in differential. The patient has a hard time sleeping because of the pain therefore a Lidoderm patch may be helpful and modulating some of the discomfort. Patient also takes gabapentin. Although he becomes significantly drowsy. The patient also has a history of sleep apnea. He has had CPAP in the past but was not able to use it appropriately so therefore was taken away. He does have significant daytime drowsiness. His Camby score is elevated 12/24. Sometimes 20 takes the gabapentin sleeps for 10-12 hours. Therefore, he does not take it every time based on the findings on CT scan that I personally reviewed with the patient the best option would be to visualize the airways with bronchoscopy. The patient also will need a formal CT scan of the chest that will further request in the near future. 10/31/2022 the patient is here for a pulmonary follow-up visit. Overall the patient has been doing relatively well. He still has daytime drowsiness. He has severe headaches in the morning. The patient did have a home sleep study which we reviewed which demonstrated an AHI of 4 in addition to a pulse ox of 76% and he spent about 30 minutes below 88%. It was a difficult study based on the fact that the patient noticed that the equipment was turning on and off. It is unclear how accurate this is. However, in view of his hypoxia and his daytime drowsiness with severe headaches I will request an in-lab study to get a better accurate reading. The patient also underwent a bronchoscopy to follow-up the abnormal findings of the left lower lobe area. The patient did have significant purulent secretions that were suction. His cultures were positive for E coli. He was treated with antibiotics but only partially helped him. Will go ahead and give him a 2nd course to make sure that we complete eradicated. I also talked about him making sure that he sleeps elevated to maintain and avoid micro aspirations. He can try also mouthwash with chlorhexidine for 2 weeks to minimize anaerobic colonization of the teeth and micro aspirations into the lungs. 04/28/2024 the patient is here for a pulmonary follow-up visit. Overall the patient has been doing okay. He does have significant headaches a lot 11 can be severe. Also daytime drowsiness with an elevated Camby score 12/24. He did undergo an in-lab sleep study at [facility] since he had nocturnal hypoxia. However, we are still waiting for the results. It is likely that he will need some type of PAP therapy if not oxygen. Once I get the report I will let him know. In the meantime he did have a repeat CT scan of the chest which was personally by me. Unfortunately has not been officially read as of yet although has been a few weeks. It appears that he does have still has some nodular changes to the airways although not significant. The patient is status post bronchoscopy demonstrating no endobronchial lesions. He continues uses respiratory therapy. Has multiple inhalers. He complains of wheezing. Moderate severity. I do believe that he will do better in a easier regimen in this case Trelegy to allow him to get his medications with better adherence. COUNT INCLUDES THE [facility] Medical History (Updated 04/28/24 @ 21:49 by Javier Maldonado MD) Nicotine dependence, cigarettes, uncomplicated Nausea and vomiting Dyspnea Photophobia Headache Syncope Chest pain Dysphagia Seizure Lipoma of back STEPHON (obstructive sleep apnea) COPD (chronic obstructive pulmonary disease) Post herpetic neuralgia Multiple lipomas Osteoarthritis Gout History of peptic ulcer disease Hx of irritable bowel syndrome Chronic back pain Hx of insomnia History of panic attacks History of anxiety History of depression Asthma High cholesterol Hypertension Urinary retention Enlarged prostate Arthritis Slow urinary stream Marijuana use Alcohol abuse H/O ulcer disease Left flank pain Trochanteric bursitis, left hip Epidermal cyst Abdominal wall bulge Esophageal dysphagia Esophageal spasm Short frenulum of penis Balanitis Elevated blood pressure reading in office with diagnosis of hypertension Thalamic pain syndrome Abnormal loss of weight Painful orthopaedic hardware Pain in unspecified toe(s) Incisional pain Surgical History (Updated 03/11/24 @ 11:02 by Masha Gaines PA-C) S/P placement of nerve stimulator H/O neck surgery Hx of arthroscopy of left knee H/O breast surgery S/P excision of lipoma History of bunionectomy History of cystoscopy History of colonoscopy History of esophagogastroduodenoscopy (EGD) Family History Family/Other Cancer Diabetes AIDS Brother Diabetes Myocardial infarction Father Enlarged prostate Mother Diabetes Asthma Social History (Updated 04/09/24 @ 10:04 by Masha Gaines PA-C) Are you a primary respite care provider to a significant other at home: No Do you presently have visiting nurse or other home services: No Alcohol intake: never Patient Tobacco Use Status: Current everyday Tobacco user Cigarettes Per Day: 4 Years Smoked: (onset 16yo, 1ppd x 42yrs, now 1/2ppd - 40pyh) Substance Use Type: Marijuana service: No Current occupational status: unemployed Review of Systems Const Reports daytime sleepiness and Reports difficulty sleeping Eyes Denies change in vision ENT Reports nasal congestion and Denies throat swelling Card Reports chest pain and Reports dyspnea on exertion Resp Reports chest congestion, Reports cough and Reports dyspnea on exertion GI Reports no additional complaints Musc Reports abnormal gait, Reports back pain, Reports myalgias and Reports arthralgias Skin/Breast Denies lesions and Denies rash Neuro Reports abnormal gait, Reports radicular pain and Reports paresthesias Endo Denies flushing Tarik/Lymph Denies easy bleeding and Denies easy bruising Aller/Immun Denies throat swelling Physical Exam Vital Signs: Last Vital Signs Pulse 90 04/28/24 10:36 BP 118/60 04/28/24 10:36 Pulse Ox 95 04/28/24 10:36 Oxygen Delivery Method Room Air 04/28/24 10:36 BMI result Body Mass Index 29.2 Const General: comfortable HEENT Head: Yes normocephalic Neck Neck: Yes supple Chest Chest palpation & inspection: normal inspection of the chest Resp Effort & Inspection: normal respiratory effort Auscultation: diminished lung sounds Cardio Rate: regular rate Rhythm: regular rhythm Heart sounds: S1 normal heart sound present and S2 normal heart sound present GI Palpation (GI): Soft to palpation Skin General skin exam: no rashes or lesions noted Neuro Sensory Exam: Trunk sensory exam abnormal (hypersensitive on the left side) Extrem General: Yes no clubbing, cyanosis or edema Assessment & Plan Assessment & Plan (1) STEPHON (obstructive sleep apnea): Code(s): G47.33 - Obstructive sleep apnea (adult) (pediatric) Category: Medical (2) Mass in chest: Code(s): R22.2 - Localized swelling, mass and lump, trunk Category: Medical (3) COPD (chronic obstructive pulmonary disease): Code(s): J44.9 - Chronic obstructive pulmonary disease, unspecified Category: Medical Qualifiers: COPD type: chronic bronchitis Chronic bronchitis type: mixed simple and mucopurulent Qualified Code(s): J41.8 - Mixed simple and mucopurulent chronic bronchitis Plan Start Trelegy continue combivent Awaiting CT chest report tobacco cessation inlab PSG done, awaitnig results F/U 4 months Medications: New lefjvvvaqmp-nvexaxduk-yhpoxmus 200-62.5-25 mcg (Trelegy Ellipta) 1 inh inhalation DAILY 60 ea 12RF 30 days Coding Level of Care Code Est Pt Level 4 (96309) Diagnoses STEPHON (obstructive sleep apnea) G47.33 Mass in chest R22.2 Mixed simple and mucopurulent chronic bronchitis J41.8 COPD type: chronic bronchitis Chronic bronchitis type: mixed simple and mucopurulent Time Spent (min) 17
[2024-04-28 10:36] VITALS: BP 118/60; PULSE 90; O2SAT 95; BMI 29.2
== END 2024-04-28 10:54 | disposition home or self-care (01) ==
PROVIDERS: PCP Student in an Organized Health Care Education/Training Program; Visit Provider Hospitalist
DX: G47.33 Obstructive sleep apnea (adult) (pediatric) (principal); R22.2 Localized swelling, mass and lump, trunk; J41.8 Mixed simple and mucopurulent chronic bronchitis
CPT/HCPCS: 99214

== ENCOUNTER → 2024-04-28 10:26 | Outpatient (BNVA) | payer OTHER, SELFPAY | PROVIDERS: PCP Student in an Organized Health Care Education/Training Program; Visit Provider Hospitalist | DX: G47.33 Obstructive sleep apnea (adult) (pediatric) (principal); R22.2 Localized swelling, mass and lump, trunk; J41.8 Mixed simple and mucopurulent chronic bronchitis | CPT/HCPCS: 99212 ==

== ENCOUNTER 2024-07-12 14:58 | Outpatient (AMB) | payer OTHER, SELFPAY ==
[2024-07-12 15:27] VITALS: BP 154/88; PULSE 72; O2SAT 96; BMI 30.6
--- NOTE | 2024-07-12 15:27 | A.OFFVIS_ITS ---
Vital Signs 07/12/24 15:27 Height 5 ft 4 in Weight 178 lb 9.191 oz BMI 30.6 BP 154/88 H Blood Pressure Location Rt brachial Position Sitting Pulse 72 Pulse Source Pulse Oximeter Pulse Oximetry (%) 96 Oxygen Delivery Method Room Air Intake Visit Reasons: FUV Review sleep study Allergies cat dander [CATS] Allergy (Unknown, Verified 07/12/24 15:30) UNKNOWN dog dander [DOGS] Allergy (Unknown, Verified 07/12/24 15:30) UNKNOWN pollen extracts [POLLEN] Allergy (Unknown, Verified 07/12/24 15:30) UNKNOWN tree and shrub pollen Allergy (Verified 07/12/24 15:30) sneeze ibuprofen Adverse Reaction (Verified 07/12/24 15:30) causes stomach to bleed HPI Comments Details: The patient is a 58-year-old gentleman with a known history of tobacco dependency in addition to COPD who apparently was being evaluated for cardiac disease. The patient did undergo a CT of the coronary arteries at [facility]. It actually demonstrated a density within the left mainstem bronchus resulting in a partial obstruction of the airway. Subsequently also has some haziness and irregularities to the left lower lobe parenchyma. Based on the abnormality he was referred to Pulmonary. The patient does complaint increased cough and also complains of left-sided chest discomfort. On further questions he does have a history of shingles in the past. The skin is very sensitive suggesting of dermatomal distribution likely from post herpetic neuralgia. Other new neuropathies may be in differential. The patient has a hard time sleeping because of the pain therefore a Lidoderm patch may be helpful and modulating some of the discomfort. Patient also takes gabapentin. Although he becomes significantly drowsy. The patient also has a history of sleep apnea. He has had CPAP in the past but was not able to use it appropriately so therefore was taken away. He does have significant daytime drowsiness. His Luray score is elevated 12/24. Sometimes 20 takes the gabapentin sleeps for 10-12 hours. Therefore, he does not take it every time based on the findings on CT scan that I personally reviewed with the patient the best option would be to visualize the airways with bronchoscopy. The patient also will need a formal CT scan of the chest that will further request in the near future. 10/31/2022 the patient is here for a pulmonary follow-up visit. Overall the patient has been doing relatively well. He still has daytime drowsiness. He has severe headaches in the morning. The patient did have a home sleep study which we reviewed which demonstrated an AHI of 4 in addition to a pulse ox of 76% and he spent about 30 minutes below 88%. It was a difficult study based on the fact that the patient noticed that the equipment was turning on and off. It is unclear how accurate this is. However, in view of his hypoxia and his daytime drowsiness with severe headaches I will request an in-lab study to get a better accurate reading. The patient also underwent a bronchoscopy to follow- up the abnormal findings of the left lower lobe area. The patient did have significant purulent secretions that were suction. His cultures were positive for E coli. He was treated with antibiotics but only partially helped him. Will go ahead and give him a 2nd course to make sure that we complete eradicated. I also talked about him making sure that he sleeps elevated to maintain and avoid micro aspirations. He can try also mouthwash with chlorhexidine for 2 weeks to minimize anaerobic colonization of the teeth and micro aspirations into the lungs. 04/28/2024 the patient is here for a pulmonary follow-up visit. Overall the patient has been doing okay. He does have significant headaches a lot 11 can be severe. Also daytime drowsiness with an elevated Luray score 12/24. He did undergo an in-lab sleep study at [facility] since he had nocturnal hypoxia. However, we are still waiting for the results. It is likely that he will need some type of PAP therapy if not oxygen. Once I get the report I will let him know. In the meantime he did have a repeat CT scan of the chest which was personally by me. Unfortunately has not been officially read as of yet although has been a few weeks. It appears that he does have still has some nodular changes to the airways although not significant. The patient is status post bronchoscopy demonstrating no endobronchial lesions. He continues uses respiratory therapy. Has multiple inhalers. He complains of wheezing. Moderate severity. I do believe that he will do better in a easier regimen in this case Trelegy to allow him to get his medications with better adherence. 07/12/2024 the patient is here for a pulmonary follow-up visit. Overall he has multiple complaints. He has been using the CPAP. CPAP therapy is affecting beneficial. Although he does wake up short of breath with it like his bothering him and he does take it off. Sometimes he is not able to complete the 4 hours because he gets upset because is causing him to have worsening shortness of breath. In the meantime he also complains of headaches. He was hoping that the CPAP would take away the headaches. He has not gotten supplies from his regional company. Will go ahead and request supplies for him. In the meantime I did decrease the pressures from 6-16 to 6-13 since his average pressure is around 13 cm and his AHI is at 0.8. Therefore he will try the pressure change then call me if he has any issues. The patient also did not like the Trelegy because then like the taste. He would like to go back to the [facility]. Will go ahead and do that. He is still having significant back pain he does follow- up with pain management and [facility] He is struggles with that issue and also struggles with insomnia. Will go ahead and request an overnight oximetry on CPAP to make sure that he does not need any additional oxygen supplementation with CPAP specially because is ongoing headaches. [facility] Medical History (Updated 07/12/24 @ 23:14 by Javier Maldonado MD) Chest pain Nicotine dependence, cigarettes, uncomplicated Nausea and vomiting Dyspnea Photophobia Headache Syncope Dysphagia Seizure Lipoma of back STEPHON (obstructive sleep apnea) COPD (chronic obstructive pulmonary disease) Post herpetic neuralgia Multiple lipomas Osteoarthritis Gout History of peptic ulcer disease Hx of irritable bowel syndrome Chronic back pain Hx of insomnia History of panic attacks History of anxiety History of depression Asthma High cholesterol Hypertension Urinary retention Enlarged prostate Arthritis Slow urinary stream Marijuana use Alcohol abuse H/O ulcer disease Left flank pain Trochanteric bursitis, left hip Epidermal cyst Abdominal wall bulge Esophageal dysphagia Esophageal spasm Short frenulum of penis Balanitis Elevated blood pressure reading in office with diagnosis of hypertension Thalamic pain syndrome Abnormal loss of weight Painful orthopaedic hardware Pain in unspecified toe(s) Incisional pain Surgical History (Updated 03/11/24 @ 11:02 by Masha Gaines PA-C) S/P placement of nerve stimulator H/O neck surgery Hx of arthroscopy of left knee H/O breast surgery S/P excision of lipoma History of bunionectomy History of cystoscopy History of colonoscopy History of esophagogastroduodenoscopy (EGD) Family History Family/Other Cancer Diabetes AIDS Brother Diabetes Myocardial infarction Father Enlarged prostate Mother Diabetes Asthma Social History Are you a primary childcare center administrator to a significant other at home: No Do you presently have visiting nurse or other home services: No Alcohol intake: never Patient Tobacco Use Status: Current everyday Tobacco user Cigarettes Per Day: 4 Years Smoked: (onset 16yo, 1ppd x 42yrs, now 1/2ppd - 40pyh) Substance Use Type: Marijuana service: No Current occupational status: unemployed Review of Systems Const Reports daytime sleepiness and Reports difficulty sleeping Eyes Denies change in vision ENT Reports nasal congestion and Denies throat swelling Card Reports chest pain and Reports dyspnea on exertion Resp Reports chest congestion, Reports cough and Reports dyspnea on exertion GI Reports no additional complaints Musc Reports as per HPI, Reports abnormal gait, Reports back pain, Reports myalgias, Reports arthralgias, Reports radiating pain into limb and Reports stiffness Skin/Breast Denies lesions and Denies rash Neuro Reports abnormal gait, Reports radicular pain and Reports paresthesias Endo Denies flushing Tarik/Lymph Denies easy bleeding and Denies easy bruising Aller/Immun Denies throat swelling Physical Exam Vital Signs: Last Vital Signs Pulse 72 07/12/24 15:27 BP 154/88 H 07/12/24 15:27 Pulse Ox 96 07/12/24 15:27 Oxygen Delivery Method Room Air 07/12/24 15:27 BMI result Body Mass Index 30.6 Const General: comfortable HEENT Head: Yes normocephalic Neck Neck: Yes supple Chest Chest palpation & inspection: normal inspection of the chest Resp Effort & Inspection: normal respiratory effort Auscultation: diminished lung sounds Cardio Rate: regular rate Rhythm: regular rhythm Heart sounds: S1 normal heart sound present and S2 normal heart sound present GI Palpation (GI): Soft to palpation Skin General skin exam: no rashes or lesions noted Neuro Sensory Exam: Trunk sensory exam abnormal (hypersensitive on the left side) Extrem General: Yes no clubbing, cyanosis or edema Assessment & Plan Assessment & Plan (1) STEPHON (obstructive sleep apnea): Code(s): G47.33 - Obstructive sleep apnea (adult) (pediatric) Category: Medical (2) COPD (chronic obstructive pulmonary disease): Code(s): J44.9 - Chronic obstructive pulmonary disease, unspecified Category: Medical Qualifiers: COPD type: chronic bronchitis Chronic bronchitis type: mixed simple and mucopurulent Qualified Code(s): J41.8 - Mixed simple and mucopurulent chronic bronchitis (3) Chest pain: Comment: Likely dermatomal/neuropathic Code(s): R07.9 - Chest pain, unspecified Category: Medical Qualifiers: Chest pain type: unspecified Qualified Code(s): R07.9 - Chest pain, unspecified Plan stop Trelegy continue combivent LDCT program tobacco cessation continue APAP, adjusted pressures 6-16->6-13 Overnight oximetry on RA/CPAP cardiology referral for CP eval F/U 4 months Orders: Orders Overnight Pulse Oximetry Today J41.8 - Mixed simple and mucopurulent chronic bronchitis Referrals Cardiology Referral R07.9 - Chest pain, unspecified Medications: Changed From ipratropium-albuterol 20-100 mcg/actuation (Combivent Respimat) 1 puff inhalation QID To ipratropium-albuterol 20-100 mcg/actuation (Combivent Respimat) 1 puff inhalation QID 4 grams 11RF 30 days Coding Level of Care Code Est Pt Level 4 (82992) Diagnoses STEPHON (obstructive sleep apnea) G47.33 Mixed simple and mucopurulent chronic bronchitis J41.8 COPD type: chronic bronchitis Chronic bronchitis type: mixed simple and mucopurulent Chest pain, unspecified type R07.9 Chest pain type: unspecified Time Spent (min) 17
== END 2024-07-12 15:56 | disposition home or self-care (01) ==
PROVIDERS: PCP Student in an Organized Health Care Education/Training Program; Visit Provider Hospitalist
DX: G47.33 Obstructive sleep apnea (adult) (pediatric) (principal); J41.8 Mixed simple and mucopurulent chronic bronchitis; R07.9 Chest pain, unspecified
CPT/HCPCS: 99214

== ENCOUNTER 2024-09-06 11:50 | Emergency (ER) | payer OTHER, SELFPAY ==
--- NOTE | ~2024-09-06 | XR_ITS ---
EXAMINATION: XR CHEST 2 VIEWS HISTORY: weakness, dizziness COMPARISON: Comparison is made with the prior examination dated 07/08/2022. FINDINGS: PA and lateral views of the chest are submitted. There are low lung volumes. The lungs are clear. There is no pleural effusion, pneumothorax, or pulmonary vascular congestion. The heart is normal in size. The bones are intact. XR/XR chest 2V IMPRESSION: Low lung volumes. No acute cardiopulmonary abnormality. Electronically signed by: Terry Jesus MD 09/06/2024 01:05 PM [facility]
--- NOTE | 2024-09-06 11:55 | ED_ITS ---
HPI - General Adult General Chief complaint: Dizziness Stated complaint: dizziness, weak Related Data Home Medications ?Medication ?Instructions ?Recorded ?Confirmed cholecalciferol (vitamin D3) 50 50 mcg PO DAILY 05/22/20 09/23/22 mcg (2,000 unit) capsule fluticasone propionate 220 1 puff inhalation BID 05/22/20 09/23/22 mcg/actuation HFA aerosol inhaler (Flovent HFA) oxycodone 15 mg tablet 15 mg PO Q6H 05/22/20 09/23/22 atorvastatin 20 mg tablet 20 mg PO DAILY 07/05/20 09/23/22 albuterol sulfate 2.5 mg/3 mL 1 vial inhalation QID 07/19/20 09/23/22 (0.083 %) solution for nebulization multivitamin (Daily-Petra tablet) 1 tab PO DAILY 07/19/20 09/23/22 divalproex 500 mg tablet,delayed 1,000 mg PO BID 08/29/21 09/23/22 release fluoxetine 20 mg capsule 20 mg PO DAILY 08/29/21 09/23/22 alprazolam 1 mg tablet 1 mg PO BID PRN Anxiety 10/08/21 09/23/22 gabapentin 600 mg tablet 600 mg PO BEDTIME 03/12/22 09/23/22 escitalopram oxalate 20 mg tablet 20 mg PO QAM 06/26/22 09/23/22 magnesium oxide 400 mg (241.3 mg 400 mg PO DAILY 06/26/22 09/23/22 magnesium) tablet lisinopril 5 mg tablet 10 mg PO BID 07/17/22 09/23/22 nebulizers 08/29/22 09/23/22 varenicline tartrate 0.5 mg tablet 0.5 mg PO DIRECTED 01/28/24 Previous Rx's ?Medication ?Instructions ?Recorded tamsulosin 0.4 mg capsule 0.4 mg PO DAILY 30 days #30 caps 06/26/22 sumatriptan succinate 100 mg 100 mg PO .COMPLEX #14 tabs 03/20/23 tablet (Imitrex) cyclobenzaprine 5 mg tablet 5 mg PO BEDTIME PRN muscle spasm 10/01/23 #7 tabs lidocaine 5 % topical patch 1 patch topical DAILY #15 ea 10/01/23 (Lidoderm) dexlansoprazole 60 mg 60 mg PO DAILY #90 caps 10/29/23 capsule,biphase delayed release famotidine 40 mg tablet 40 mg PO BEDTIME #90 tabs 10/29/23 gztvtl-snbhlhgi-qvyrbhv 1 cap PO QID 30 days #120 caps 10/29/23 24,000-76,000-120,000 unit capsule,delayed rel (Creon) ondansetron HCl 4 mg tablet 4 mg PO BID PRN for nausea #60 tabs 10/29/23 fluticasone fur. 200 mcg-umeclid 1 inh inhalation DAILY 30 days #60 04/28/24 62.5 mcg-vilant 25 mcg ea inhalat.powder (Trelegy Ellipta) ipratropium 20 mcg-albuterol 100 1 puff inhalation QID 30 days #4 07/12/24 mcg/actuation mist for inhalation grams (Combivent Respimat) Allergies Allergy/AdvReac Type Severity Reaction Status Date / Time cat dander [CATS] Allergy Unknown UNKNOWN Verified 09/06/24 12:00 dog dander [DOGS] Allergy Unknown UNKNOWN Verified 09/06/24 12:00 pollen extracts [POLLEN] Allergy Unknown UNKNOWN Verified 09/06/24 12:00 tree and shrub pollen Allergy sneeze Verified 09/06/24 12:00 ibuprofen AdvReac causes Verified 09/06/24 12:00 stomach to bleed PMFSH Past Medical History Medical History (Updated 09/08/24 @ 08:01 by RUBEN Quiles) Chest pain Nicotine dependence, cigarettes, uncomplicated Nausea and vomiting Dyspnea Photophobia Headache Syncope Dysphagia Seizure Lipoma of back STEPHON (obstructive sleep apnea) COPD (chronic obstructive pulmonary disease) Post herpetic neuralgia Multiple lipomas Osteoarthritis Gout History of peptic ulcer disease Hx of irritable bowel syndrome Chronic back pain Hx of insomnia History of panic attacks History of anxiety History of depression Asthma High cholesterol Hypertension Urinary retention Enlarged prostate Arthritis Slow urinary stream Marijuana use Alcohol abuse H/O ulcer disease Left flank pain Trochanteric bursitis, left hip Epidermal cyst Abdominal wall bulge Esophageal dysphagia Esophageal spasm Short frenulum of penis Balanitis Elevated blood pressure reading in office with diagnosis of hypertension Thalamic pain syndrome Abnormal loss of weight Painful orthopaedic hardware Pain in unspecified toe(s) Incisional pain Surgical History (Updated 03/11/24 @ 11:02 by Masha Gaines PA-C) S/P placement of nerve stimulator H/O neck surgery Hx of arthroscopy of left knee H/O breast surgery S/P excision of lipoma History of bunionectomy History of cystoscopy History of colonoscopy History of esophagogastroduodenoscopy (EGD) Family History Family History Family/Other Cancer Diabetes AIDS Brother Diabetes Myocardial infarction Father Enlarged prostate Mother Diabetes Asthma Social History Social History Are you a primary ambulatory care to a significant other at home: No Do you presently have visiting nurse or other home services: No Alcohol intake: never Patient Tobacco Use Status: Current everyday Tobacco user Cigarettes Per Day: 4 Years Smoked: (onset 16yo, 1ppd x 42yrs, now 1/2ppd - 40pyh) Substance Use Type: Marijuana Advance Directives: No Advance Directives Information Provided: No service: No Current occupational status: unemployed Physical Exam ED Vital Signs: BMI result Body Mass Index 29.5 Course Course Course Narrative: RME performed by Haleigh Arora PA-C. Patient is a 58 year old assigned male at presenting to the emergency department with dizziness / feeling generally unwell. Patient states that he has been having dizziness, weakness, and feeling generally unwell. Patient's limited physical exam performed in triage showed no gross abnormalities, patient was able to speak in clear sentences. Detailed physical exam and review of systems are deferred to the vocational school teacher. EKG, labs, imaging, and swabs ordered. Patient placed back in the waiting room pending room availability and results. Haleigh Arora PA-C ---> Patient left without completing treatment. I reviewed the patient's labs, chest x-ray, and EKG which all had no gross abnormalities. Patient left the department before myself or any of the other emergency department clinicians could explain to or review with the patient; physical exam findings, test results, need or lack there of for additional testing, need or lack there of for a procedure to be performed, need or lack there of for hospital admission / transfer, need or lack there of for prescription medication, treatment options, or a treatment plan. Medical Decision Making Lab Data 09/06/24 12:14 09/06/24 12:14 Labs: Lab Results 03/03/25 Range/Units 12:14 WBC 7.6 (4.8-10.8) X10*3/uL RBC 4.30 L (4.60-5.80) X10*6/uL Hgb 13.3 L (14.0-18.0) g/dl Hct 40.1 L (42.0-52.0) % MCV 93.3 (80.0-98.0) fL MCH 30.9 (27.0-33.0) pg MCHC 33.2 (31.0-36.0) g/dl RDW 14.2 (11.0-16.0) % Plt Count 248 (160-400) X10*3/uL MPV 9.2 L (9.4-12.4) fL Immature Gran % (Auto) 0.3 (0.0-0.4) % Neut % (Auto) 73.0 (45-73) % Lymph % (Auto) 20.0 (20-40) % [place]ven % (Auto) 6.2 (2-11) % Eos % (Auto) 0.4 (0-4) % Baso % (Auto) 0.1 (0-2) % Lymph # (Auto) 1.5 (1.2-4.9) X10*3/uL [place]ven # (Auto) 0.5 (0.1-1.2) X10*3/uL Eos # (Auto) 0.0 (0.0-0.4) X10*3/uL Baso # (Auto) 0.0 (0.0-0.2) X10*3/uL Abs Immat Gran (auto) 0.02 (0.00-0.03) X10*3/uL Absolute Neuts (auto) 5.5 (2.0-8.3) x10*3/uL Absolute Nucleated RBC 0.000 (0.0-0.012) X10*3/uL Nucleated RBC % (auto) 0.0 (0.0-0.2) /100WBC PT 11.4 (10.9-12.4) SEC INR 1.0 (0.9-1.1) APTT 30.4 (26.0-36.8) SEC Sodium 141 (135-145) mmol/L Potassium 4.7 (3.3-5.1) mmol/L Chloride 107 (96-108) mmol/L Carbon Dioxide 26 (22-29) mmol/L Anion Gap 13 (12-20) BUN 12 (9-16) mg/dL Creatinine 0.90 (0.5-1.4) mg/dL Estim Creat Clear Calc 86.4 Estimated GFR > 60 Random Glucose 80 (60-115) mg/dL Calcium 9.2 (8.4-10.2) mg/dL Magnesium 2.1 (1.6-2.6) mg/dL Total Bilirubin 0.9 (0.0-1.0) mg/dL AST 25 (5-37) U/L ALT 21 (0-40) U/L Alkaline Phosphatase 78 (39-117) U/L Troponin I High Sens < 2.7 (<3.5-35.0) ng/L Total Protein 7.4 (6.5-8.0) g/dL Albumin 3.9 (3.5-5.0) g/dL Urine Color Yellow Urine Appearance Clear Urine pH 6.5 (5.0-9.0) Ur Specific [place] <= 1.005 (1.005-1.025) Urine Protein Negative (Neg-Trace) mg/dL Urine Glucose (UA) Negative (Negative) mg/dL Urine Ketones Negative (Negative) mg/dL Urine Blood Negative (Negative) Urine Nitrite Negative (Negative) Ur Leukocyte Esterase Negative (Negative) Influenza Type A (PCR) NEGATIVE (Negative) Influenza Type B (PCR) NEGATIVE (Negative) RSV RNA Qual (PCR) NEGATIVE (Negative) SARS-CoV-2 RNA (RT-PCR) NEGATIVE (Negative) Discharge Plan Discharge Clinical Impression: Dizziness Patient Disposition: Left W/O Completing Treatment Prescriptions: No Action sumatriptan succinate [Imitrex] 100 mg tablet 100 mg PO .COMPLEX Qty: 14 3RF Rx Instructions: 100 mg orally; multivitamin [Daily-Petra] Tablet 1 tab PO DAILY albuterol sulfate 2.5 mg /3 mL (0.083 %) solution for nebulization 1 vial inhalation QID alprazolam 1 mg tablet 1 mg PO BID PRN (Reason: Anxiety) lisinopril 5 mg tablet 10 mg PO BID cyclobenzaprine 5 mg tablet 5 mg PO BEDTIME PRN (Reason: muscle spasm) Qty: 7 0RF lidocaine [Lidoderm] 5 % adhesive patch,medicated 1 patch topical DAILY Qty: 15 0RF Rx Instructions: leave on most painful area for up to 12 hrs atorvastatin 20 mg tablet 20 mg PO DAILY oxycodone 15 mg tablet 15 mg PO Q6H cholecalciferol (vitamin D3) 50 mcg (2,000 unit) capsule 50 mcg PO DAILY Flovent HFA 220 mcg/actuation HFA aerosol inhaler 1 puff inhalation BID fluoxetine 20 mg capsule 20 mg PO DAILY divalproex 500 mg tablet,delayed release (DR/EC) 1,000 mg PO BID gabapentin 600 mg tablet 600 mg PO BEDTIME magnesium oxide 400 mg (241.3 mg magnesium) tablet 400 mg PO DAILY escitalopram oxalate 20 mg tablet 20 mg PO QAM tamsulosin 0.4 mg capsule 0.4 mg PO DAILY 30 Days Qty: 30 3RF (DME) nebulizers [facility] [place] See Rx Instructions .Route Rx Instructions: As directed Trelegy Ellipta 200-62.5-25 mcg blister with device 1 inh inhalation DAILY 30 Days Qty: 60 12RF Combivent Respimat 20-100 mcg/actuation mist 1 puff inhalation QID 30 Days Qty: 4 11RF ondansetron HCl 4 mg tablet 4 mg PO BID PRN (Reason: for nausea) Qty: 60 0RF Creon 24,000-76,000 -120,000 unit capsule,delayed release(DR/EC) 1 cap PO QID 30 Days Qty: 120 6RF Rx Instructions: administer with meals and/or snacks famotidine 40 mg tablet 40 mg PO BEDTIME Qty: 90 2RF dexlansoprazole 60 mg capsule,biphase delayed releas 60 mg PO DAILY Qty: 90 1RF varenicline tartrate 0.5 mg tablet 0.5 mg PO DIRECTED Rx Instructions: take 1 tablet by mouth daily on days 1-3; then 1 tablet twice daily (morning and evening) on days 4-7 Discharge Date/Time: 09/07/24 00:06
[2024-09-06 11:56] VITALS: BP 146/79; PULSE 63; RESP 16; TEMP 37; O2SAT 96; BMI 29.5
--- NOTE | 2024-09-06 11:57 | ECG_ITS ---
Test Reason : weakness, dizziness Blood Pressure : */* mmHG Vent. Rate : 64 BPM Atrial Rate : 64 BPM P-R Int : 160 ms QRS Dur : 82 ms QT Int : 398 ms P-R-T Axes : 37 -14 17 degrees QTcB Int : 410 ms Normal sinus rhythm Normal ECG When compared with ECG of 08-Jul-2022 11:57, No significant change was found Referred By: Haleigh Arora Electronically Signed By: LONNIE ROA MD
[2024-09-06 12:20] LABS: MANUAL DIFF FLAG NO
[2024-09-06 12:23] LABS: Appearance Urine Clear; Basophils Percent Auto 0.1 % (0-2); Color Urine Yellow; Eosinophils Percent Auto 0.4 % (0-4); Glucose Urine UA Negative (Negative); Hematocrit 40.1 % (42.0-52.0); Hemoglobin 13.3 g/dl (14.0-18.0); Imm Gran Abs Auto 0.02 X10*3/uL (0.00-0.03); Imm Gran Pct Auto 0.3 % (0.0-0.4); Leukocyte Esterase Urine Negative (Negative); Lymphocytes Absolute Auto 1.5 X10*3/uL (1.2-4.9); Mean Corpuscular HGB Conc 33.2 g/dl (31.0-36.0); Mean Corpuscular Hemoglobin 30.9 pg (27.0-33.0); Mean Corpuscular Volume 93.3 fL (80.0-98.0); Mean Platelet Volume 9.2 fL (9.4-12.4); Monocytes Absolute Auto 0.5 X10*3/uL (0.1-1.2); Monocytes Percent Auto 6.2 % (2-11); Neutrophils Absolute Auto 5.5 x10*3/uL (2.0-8.3); Nitrite Urine Negative (Negative); PH 6.5 (5.0-9.0); Platelet Count 248 X10*3/uL (160-400); Red Cell Distribution Width 14.2 % (11.0-16.0); Specific Gravity - Urine <= 1.005 (1.005-1.025); Urine Blood Negative (Negative); Urine Ketones Negative (Negative); Urine Protein Negative (Neg-Trace); White Blood Count 7.6 X10*3/uL (4.8-10.8)
[2024-09-06 12:29] LABS: Prothrombin Time 11.4 SEC (10.9-12.4)
[2024-09-06 12:31] LABS: Partial Thromboplastin Time 30.4 SEC (26.0-36.8)
[2024-09-06 12:37] LABS: Alanine Aminotransferase 21 U/L (0-40); Albumin Level 3.9 g/dL (3.5-5.0); Alkaline Phosphatase 78 U/L (39-117); Anion Gap 13 (12-20); Aspartate Amino Transferase 25 U/L (5-37); Bilirubin Total 0.9 mg/dL (0.0-1.0); Blood Urea Nitrogen 12 mg/dL (9-16); Calcium 9.2 mg/dL (8.4-10.2); Carbon Dioxide 26 mmol/L (22-29); Chloride 107 mmol/L (96-108); Creatinine Clr Calc Pharmacy 86.4; Estimated Glomerular Filt Rate > 60; Glucose Random 80 mg/dL (60-115); Magnesium 2.1 mg/dL (1.6-2.6); Potassium 4.7 mmol/L (3.3-5.1); Sodium 141 mmol/L (135-145); Total Protein 7.4 g/dL (6.5-8.0)
[2024-09-06 12:43] LABS: Troponin-I High Sensitivity < 2.7 ng/L (<3.5-35.0)
[2024-09-06 13:03] LABS: Influenza A PCR NEGATIVE (Negative); Influenza B PCR NEGATIVE (Negative); Resp Syncy Virus RNA Qual PCR NEGATIVE (Negative); SARS COV2 PCR INHOUSE NEGATIVE (Negative)
--- OUTSIDE RECORDS SUMMARY | 2024-09-07 00:04 | XMS_ITS | Encounter Summary ---
Author Organization [employer] Address 75 [facility] 7 [place] [address] Care Team Providers Care Reel Stripper Name Role Phone Amy Pickett MD Primary Care Pro vider Reason for Visit * Reason Onset Date Comments Med Refill 05/13/2024 Encounter Details Date Type Department Care Team ([facility] st Contact Info) Description 05/13/2024 Telephone [facility] MEDICINE [address], [place] [phone] Amy Pickett MD [address] [place], [place] [phone] Med Refill Social History Tobacco Use Types Packs/Day Years Used Date Smoking Tobacco: Every Day Cigarettes Smokeless Tobacco: Never Comments:Started tobacco smo emery 16 y of age until now,stopped for 5 years ,again smoking . 3 cig a day from 2 PQT a day for aprox 12 years ,smokes for aprox 37 years , PAQ a year 55.5 Alcohol Use Standard Drinks/Week Comments Yes 0 (1 standard drink = 0.6 oz pur e alcohol) social, hx of heavy drinking Depression Answer Date Recorded Patient Health Questionnaire-9 Score 10 03/12/2024 Patient Health Questionnaire-9 Score 10 03/12/2024 Last PHQ-9: Questionnaire Data Not on file 0 03/12/2024 Housing Stability Answer Date Recorded What is your housing situation today? I have claudio medrano 05/14/[address] you li ve. Do you have problems with any of the following? None of the above 05/14/2024 Food Insecurity Answer Date Recorded Within the past 12 months, y ou worried that your food would run out before you got money to buy more: Never True 05/14/2024 Within the past 12 months,th e food you bought just didn't last and you didn't have enough money to get more: Never True 02/2024 Transportation Answer Date Recorded In the past 12 months, has l ack of transportation kept you from medical appts, meetings, work or from getting things needed for daily living? No 05/14/2024 Utilities Answer Date Recorded In the past 12 months, has t he electric, gas, oil or water company threatened to shut off services in your home? No 05/14/2024 Depression Answer Date Recorded Patient Health Questionnaire-2 Score 4 03/12/2024 Internet Access Answer Date Recorded Internet Access Q1 Yes 05/14/2024 Internet Access Q2 Not on file 05/14/2024 Sex and Gender Information Value Date Recorded Sex Assigned at Male 05/06/2022 10:21 AM EDT Legal Sex Male 10:21 AM EDT Gender Identity Male 05/06/2022 10:21 AM EDT Sexual Orientation Straight 05/06/2022 10 :21 AM EDT documented as of this encounter Miscellaneous Notes * Telephone Encounter - Mignon Hansen - 05/13/2024 10:17 AM EST TC from pt requesting medication refill. Medications needing refill : oxyCODONE (Roxicodone) 15 MG immediate release tablet To be sent to: [facility]/pharmacy #[id number] - [place], [place] - [address] [place] [address] documented in this encounter Plan of Treatment Upcoming Encounters Date Type Department Care Team (Late st Contact Info) Description 09/28/2024 9:45 AM EDT Office Visit [facility] MEDICINE [address] [place] [address] [phone] 11/24/2024 2:15 PM EDT Office Visit [facility] [address] [place] [phone] Amy Pickett MD [address] [place] [phone] documented as of this encounter Visit Diagnoses Not on filedocumented in this encounter Additional Health Concerns Assessment Noted Time PHQ-9 Depression Total Score: 10 024 9:41 AM EDT documented as of this encounter Care Teams Reel Stripper Relationship Specialty Start Date End Date Amy Pickett MD [address] [place] [phone] PCP - General Internal Medicine 04/07/23 documented as of this encounter
--- OUTSIDE RECORDS SUMMARY | 2024-09-07 00:04 | XMS_ITS | Encounter Summary ---
Author Organization [employer] Address [address] [facility] [address] [place] [address] Care Team Providers Care Senior Electrical Controls Engineer Name Role Phone Amy Pickett MD Primary Care Pro vider Encounter Details Date Type Department Care Team (Late st Contact Info) Description 09/06/2024 Orders Only GENERIC EXTERNAL DATA DEPARTMENT Provider, Generic External Data Social History Tobacco Use Types Packs/Day Years [...] AM EDT documented as of this encounter Plan of Treatment Upcoming Encounters Date Type Department Care Team (Late st Contact Info) Description 09/28/2024 9:45 AM EDT Office Visit [facility] MED[facility]INE [address] [place] [phone] 11/24/2024 2:15 PM EDT Office Visit [facility] [address] [place] [phone] Amy Pickett MD [address] [place] [address] [phone] documented as of this encounter Procedures Procedure Name Priority Date/Time Associated Diagnosis Comments HIGH SENSITIVITY TROPONIN I Routine 09/06/2024 12:14 PM EST SARS COV2/INFLUENZA A/B AND RSV RNA QL NAAT Routine 09/06/2024 12:14 PM EST CBC WITH AUTO DIFFERENTIAL Routine 09/06/2024 12:14 PM EST URINALYSIS WITH REFLEX MICROSCOPIC Routine 09/06/2024 12:14 PM EST APTT Routine 09/06/2024 12:14 PM EST PROTHROMBIN TIME-INR Routine 09/06/2024 12:14 PM EST MAGNESIUM Routine 09/06/2024 12:14 PM EST COMPREHENSIVE METABOLIC PANEL Routine 09/06/2024 12:14 PM EST XR CHEST 2 VIEWS Routine 09/06/2024 11:5 7 AM EST documented in this encounter Results * SARS-CoV-2 RNA, Influenza A/B, and RSV RNA, Ql NAAT (09/06/2024 12:14 PM EST) Influenza A PCR NEGATIVE Negative [facility] Influenza B PCR NEGATIVE Negative [facility] Resp Syncy Virus RNA Qual PCR NEGATIVE Negative [facility] SARS COV2 PCR NEGATIVE Negative [facility] Comment:All test results mus t be correlated with clinical findings.Negative results do not preclude SARS-CoV2, influenza Avirus, influenza B virus and/or RSV infectionand should not be used as the sole basis for treatment orother patient management decisions. Negative results must becombined with clinical observations, patient history, andepidemiological information.This test has not been evaluated for monitoring treatment ofinfection.This test has been authorized by the FDA under an EmergencyUse Authorization (EUA) for use by authorized laboratories.Testing performed on the [facility] GeneXpert utilizingreal-time RT-PCR.All SARS CoV2 and positive influenza A/B results arereported to [facility]. 09/06/2024 12:1 4 PM EST 09/06/2024 12:19 PM EST us Generic External Data Provider LAB MICROBIOLOGY - GENERAL ORDERABLES Final Result [facility] [address] [place] [phone] * High Sensitivity Troponin I (09/06/2024 12:14 PM EST) TROPONIN I HIGH SENSITIVITY <2.7 <3.5 - 35.0 ng/L [facility] Comment:The [place]ing high sens itivity Troponin-I results should beused in conjunction with other diagnostic information suchas ECG, clinical observations and information, and patientsymptoms to aid in the diagnosis of PR. 09/06/2024 12:1 4 PM EST 09/06/2024 12:19 PM EST Generic External Data Provider LAB BLOOD ORDERAB LES Final Result Performing Organization Address [facility] Co de Phone Number [facility] [address] [place] [phone] * Magnesium (09/06/2024 12:14 PM EST) Pathologist [facility] Magnesium 2.1 1.6 - 2.6 mg/dL [facility] 09/06/2024 12:1 4 PM EST 09/06/2024 12:19 PM EST Generic External Data Provider LAB BLOOD ORDERAB LES Final Result Performing Organization Address [facility] de Phone Number [facility] [address] [place] [phone] * Comprehensive Metabolic Panel (09/06/2024 12:14 PM EST) Sodium 141 135 - 145 mmol/L [facility] Potassium 4.7 3.3 - 5.1 mmol/L [facility] Comment:SLIGHT HEMOLYSIS.Int erpret result with caution. Chloride 107 96 - 108 mmol/L [facility] Carbon Dioxide 26 22 - 29 mmol/L [facility] Anion Gap 13 12 - 20 [facility] Urea Nitrogen (BUN) 12 9 - 16 mg/dL [facility] Creatinine, Serum 0.90 0.5 - 1.4 mg/dL [facility] Creatinine Clr Calc Pharmacy 86.4 [facility] Comment:eGFR (calculated fro m the MDRD study equation) and eCrCl(calculated from the Cockcroft-Gault equation) are based ondifferent parameters and may not yield comparable results.If eCrCl result is absurd, please check patient'sheight/weight. Estimated Glomerular Filt Rate >60 [facility] Comment:Chronic Kidney Disea se: Estimated GFR < 60 mL/min/1.12c4Prcawr Kidney Disease: Estimated GFR < 15 mL/min/1.73m2 Glucose 80 60 - 115 mg/dL [facility] Calcium 9.2 8.4 - 10.2 mg/dL [facility] Bilirubin, Total 0.9 0.0 - 1.0 mg/dL [facility] Aspartate Amino Transferase 25 5 - 37 U/L [facility] Comment:Slight Hemolysis.Int erpret result with caution. Alanine Aminotransferase 21 0 - 40 U/L [facility] Total Protein 7.4 6.5 - 8.0 g/dL [facility] Albumin Level 3.9 3.5 - 5.0 g/dL [facility] Alkaline Phosphatase 78 39 - 117 U/L [facility] 09/06/2024 12:1 4 PM EST 09/06/2024 12:19 PM EST us Generic External Data Provider LAB BLOOD ORDERAB LES Final Result Performing Organization Address [facility]/ZIP Co de Phone Number [facility] [address] [place] [phone] * Partial Thromboplastin Time, Activated (APTT) (09/06/2024 12:14 PM EST) Partial Thromboplastin Time 30.4 26.0 - 36.8 SEC [facility] Comment:For information rega rding the monitoring of direct thrombininhibitors, please refer to Pharmacy. 09/06/2024 12:1 4 PM EST 09/06/2024 12:19 PM EST us Generic External Data Provider LAB BLOOD ORDERAB LES Final Result Performing Organization Address [facility]/ZIP Co de Phone Number [facility] [address] [place] [phone] * Prothrombin Time-INR (09/06/2024 12:14 PM EST) Pathologist [facility] Prothrombin Time 11.4 10.9 - 12.4 SEC [facility] INTERNATIONAL NORM RATIO 1.0 0.9 - 1.1 [facility] Comment:INTERNATIONAL NORMAL IZED RATIO (INR) REFERENCE RANGES Reference RangeFor patients not on anticoagulant therapy: 0.9 - 1.1INR ranges for oral anticoagulanttherapy:For prevention and treatment of venous thrombosis and pulmonary embolism: 2.0 - 3.0For acute myocardial infarction with aspirin therapy: 2.0 - 3.0For acute myocardial infarction without aspirin therapy: 3.0 - 4.0For patients with mechanical prosthetic heart valves: 2.5 - 3.5 09/06/2024 12:1 4 PM EST 09/06/2024 12:19 PM EST us Generic External Data Provider LAB BLOOD ORDERAB LES Final Result Performing Organization Address City/State/[facility] Co de Phone Number [facility] [address] [place] [phone] * (ABNORMAL) CBC auto differential (09/06/2024 12:14 PM EST) [facility] White Blood Count 7.6 4.8 - 10.8 X10*3/uL [facility] Red Blood Count 4.30(L) 4.60 - 5.80 X10*6/uL [facility] Hemoglobin 13.3(L) 14.0 - 18.0 g/dl [facility] Hematocrit 40.1(L) 42.0 - 52.0 % [facility] Mean Corpuscular Volume 93.3 80.0 - 98.0 fL [facility] Mean Corpuscular Hemoglobin 30.9 27.0 - 33.0 pg [facility] Mean Corpuscular HGB Conc 33.2 31.0 - 36.0 g/dl [facility] Red Cell Distribution Width 14.2 11.0 - 16.0 % [facility] Platelet Count 248 160 - 400 X10*3/uL [facility] Mean Platelet Volume 9.2(L) 9.4 - 12.4 fL [facility] Neutrophils Percent Auto 73.0 45 - 73 % [facility] Imm Gran Pct Auto 0.3 0.0 - 0.4 % [facility] Lymphocytes Percent Auto 20.0 20 - 40 % [facility] Monocytes Percent Auto 6.2 2 - 11 % [facility] Eosinophils Percent Auto 0.4 0 - 4 % [facility] Basophils Percent Auto 0.1 0 - 2 % [facility] NRBC Pct Auto 0.0 0.0 - 0.2 /100WBC [facility] Neutrophils Absolute Auto 5.5 2.0 - 8.3 x10*3/uL [facility] Imm Gran Abs Auto 0.02 0.00 - 0.03 X10*3/uL [facility] Lymphocytes Absolute Auto 1.5 1.2 - 4.9 X10*3/uL [facility] Monocytes Absolute Auto 0.5 0.1 - 1.2 X10*3/uL [facility] Eosinophils Absolute Auto 0.0 0.0 - 0.4 X10*3/uL [facility] Basophils Absolute Auto 0.0 0.0 - 0.2 X10*3/uL [facility] NRBC Abs Auto 0.000 0.0 - 0.012 X10*3/uL [facility] 09/06/2024 12:1 4 PM EST 09/06/2024 12:19 PM EST us Generic External Data Provider LAB BLOOD ORDERAB LES Final Result [facility] [address], [place] [phone] * Urinalysis w/reflex microscopic (09/06/2024 12:14 PM EST) Color Urine Yellow [facility] Appearance Urine Clear [facility] PH 6.5 5.0 - 9.0 [facility] Glucose Urine UA Negative Negative mg/dL [facility] Urine Blood Negative Negative [facility] Specific [place] - Urine <=1.005 1.005 - 1.025 [facility] Urine Protein Negative Neg-Trace mg/dL [facility] Urine Ketones Negative Negative mg/dL [facility] Nitrite Urine Negative Negative [facility] Leukocyte Esterase Urine Negative Negative [facility] 09/06/2024 12:1 4 PM EST 09/06/2024 12:19 PM EST Narrative [facility] - 09/06/2024 12:23 PM EST Urine, Clean Catch us Generic External Data Provider LAB URINE ORDERAB LES Final Result Performing Organization Address City/State/[facility] Co de Phone Number [facility] [address], [place] [phone] * XR Chest 2 Views (09/06/2024 11:57 AM EST) Anatomical Region Laterality Modality Chest Radiographic Maxine ging 09/06/2024 11:5 7 AM EST Narrative 09/06/2024 1:08 PM EST ? [facility] ?[address] ?[place] [address] ?XRay Report ? Signed ? Patient: Zain Welch ?MR# ?? : [id number] ? : 1965 ?Acct:[id number] ? Age/Sex: 58 / M ?ADM Date: 09/06/24 ? Loc: HO.ED ? Attending Dr: ? Ordering Physician: Haleigh Arora ?? Date of Service: 09/06/24 ?? Procedure(s): XR chest 2V ?? Accession Number(s): [id number] ? cc: Haleigh Arora; Amy Pickett MD ? EXAMINATION: ??XR CHEST 2 VIEWS ? HISTORY: weakness, dizziness ? COMPARISON: Comparison is made with the prior examination dated ?? 07/08/2022. ? FINDINGS: ??PA and lateral views of the chest are submitted. There are ?? low lung volumes. The lungs are clear. ??There is no pleural effusion, ?? pneumothorax, or pulmonary vascular congestion. ??The heart is normal in ?? size. ??The bones are intact. ? XR/XR chest 2V ?? IMPRESSION: ?? Low lung volumes. No acute cardiopulmonary abnormality. ? Electronically signed by: ??Terry Jesus MD ??09/06/2024 01:05 PM EST ?? RP ? Dictated By: ?Terry Jesus MD ? Signed By: ?<Electronically signed by Terry Jesus MD in OV> ?09/06/24 1305 ? DD/ 1157 ? TD/TT: 09/06/24 1245 ? Cafe Worker: ? Procedure Note Donjohnter, Image - 09/06/[address] [address] XRay Report Signed Patient: Zain Welch LMR# : [id number] : 1965Acct:[id number] Age/Sex: 58 / MADM Date: 09/06/24 Loc: HO.ED Attending Dr: Ordering Physician: Haleigh Arora Date of Service: 09/06/24 Procedure(s): XR chest 2V Accession Number(s): [id number] cc: Haleigh Arora; Amy Pickett MD EXAMINATION: XR CHEST 2 VIEWS HISTORY: weakness, dizziness COMPARISON: Comparison is made with the prior examination dated 07/08/2022. FINDINGS: PA and lateral views of the chest are submitted. There are low lung volumes. The lungs are clear. There is no pleural effusion, pneumothorax, or pulmonary vascular congestion. The heart is normal in size. The bones are intact. XR/XR chest 2V IMPRESSION: Low lung volumes. No acute cardiopulmonary abnormality. Electronically signed by: Terry Jesus MD 09/06/2024 01:05 PM [facility] Dictated By: Terry Jesus MD Signed By: <Electronically signed by Terry Jesus MD in OV> 09/06/24 1305 DD/ 1157 TD/TT: 09/06/24 1245 Cafe Worker: [facility] External Provider IMG XR PROCEDURES Final Result documented in this encounter Visit Diagnoses Not on filedocumented in this encounter Additional Health Concerns Assessment Noted Time PHQ-9 Depression Total Score: 10 024 9:41 AM EDT documented as of this encounter Care Teams Senior Electrical Controls Engineer Relationship Specialty Start Date End Date Amy Pickett MD [address] [place] [phone] PCP - General Internal Medicine 04/07/23 documented as of this encounter
--- OUTSIDE RECORDS SUMMARY | 2024-09-07 00:04 | XMS_ITS | Encounter Summary ---
Author Organization [employer] Address 75 [facility] [address] 7[address] [place] [address] Care Team Providers Care Handling Tech Name Role Phone Amy Pickett MD Primary Care Pro vider Encounter Details Date Type Department Care Team (Late st Contact Info) Description 06/24/2024 Orders Only [facility] [address] [place] [address] ProviderBryan MD Social History Tobacco Use Types Packs/Day Years [...] Description 09/28/2024 9:45 AM EDT Office Visit [facility] [address] [place] [phone] 11/24/2024 2:15 PM EDT Office Visit [address] [address] Amy Pickett MD [address] [place] [phone] documented as of this encounter Procedures Procedure Name Priority Date/Time Associated Diagnosis Comments COLONOSCOPY Routine 01/06/2018 8:00 AM EDT documented in this encounter Results * Hm Colonoscopy (01/06/2018 8:00 AM EDT) us Historical Provider HEALTH MAINTENANCE Final Result documented in this encounter Visit Diagnoses Not on filedocumented in this encounter Additional Health Concerns Assessment Noted Time PHQ-9 Depression Total Score: 10 024 9:41 AM EDT documented as of this encounter Care Teams Handling Tech Relationship Specialty Start Date End Date Aym Pickett MD [address] [place] [phone] PCP - General Internal Medicine 04/07/23 documented as of this encounter
--- OUTSIDE RECORDS SUMMARY | 2024-09-07 00:04 | XMS_ITS | Encounter Summary ---
Author Organization [employer] Address [address] [place] [address] 7 [place] [address] Care Team Providers Care Hydraulic Strainer Operator Name Role Phone Elise Glover Primary Care Provider [phone] Amy Pickett MD Primary Care Pro vider Reason for Visit * Reason Comments Med Change Request Encounter Details Date Type Department Care Team (Late st Contact Info) Description 03/03/2023 Refill [facility] [address] [place] [address] Elise Glover FNP [address] [place] [address] Dept [place] [address] Essential hypertension Social History Tobacco Use Types Packs/Day Years Used Date Smoking Tobacco: Every Day Cigarettes Smokeless Tobacco: Never Depression Answer Date Recorded Patient Health Questionnaire-9 Score 24 10/01/2022 Depression Answer Date Recorded Patient Health Questionnaire-2 Score 6 10/01/2022 Sex and Gender Information Value Date Recorded Sex Assigned at Male 05/06/2022 10:21 AM EDT Legal Sex Male 10:21 AM EDT Gender Identity Male 05/06/2022 10:21 AM EDT Sexual Orientation Straight 05/06/2022 10 :21 AM EDT documented as of this encounter Miscellaneous Notes * Telephone Encounter - Jie Norman - 03/26/2023 11:08 AM EDT Per the pharmacy: patient picked up BP monitor kit in February. documented in this encounter Plan of Treatment Upcoming Encounters Date Type Department Care Team (Late st Contact Info) Description 09/28/2024 9:45 AM EDT Office Visit [facility] [address] [place] [phone] 11/24/2024 2:15 PM EDT Office Visit [address] [address] Amy Pickett MD [address] [place] [phone] documented as of this encounter Visit Diagnoses Diagnosis Essential hypertension Unspecified essential hypertension documented in this encounter Additional Health Concerns Assessment Noted Time PHQ-9 Depression Total Score: 24 023 10:05 AM EDT documented as of this encounter Care Teams Hydraulic Strainer Operator Relationship Specialty Start Date End Date Elise Glover FNP PCP - General Family Medicine 07/09/22 04/06/23 Amy Pickett MD [address] [place] [phone] PCP - General Internal Medicine 04/07/23 documented as of this encounter
--- OUTSIDE RECORDS SUMMARY | 2024-09-07 00:04 | XMS_ITS | Clinical Summary ---
Author Organization [employer] Address [address] [facility] [address] [place] [address] Care Team Providers Care Test Center Manager Name Role Phone Amy Pickett MD Primary Care Pro vider Allergies Active Allergy Reactions Criticality Noted Date Comments Cat Dander 10/01/2022 Corylus 12/28/2019 Dog Epithelium 10/01/2022 Dust Mite Extract 10/01/2022 Ibuprofen 12/09/2019 Other reaction(s): GI Bleeding Medications ALPRAZolam (Xanax) 1 MG tablet Take 1 mg by mouth if needed in the morning, at noon, and at bedtime for anxiety. Active divalproex (Depakote ER) 500 MG 24 hr tablet Take 2 tablets by mouth every 12 (twelve) hours. Active escitalopram (Lexapro) 10 MG tablet Take 1 tablet by mouth 1 (one) time each day. Active magnesium oxide (Mag-Ox) 400 MG tablet one pill everyday 022 Active Nebulizers (Comp-Air Elite Compact Neb) [facility] [place] Blood Pressure Monitor kit 1 each 2 times daily. 1 kit 023 Active Multiple Vitamin (Multi-Vitamin) tabletIndicatio ns:Abnormal liver function test take 1 tablet by oral route every day with food 30 tablet 11 023 Active ondansetron (Zofran) 4 MG tablet Take 2 tablets (8 mg) by mouth every 8 (eight) hours if needed for nausea or vomiting. 60 tablet 1 023 Active pancrelipase, Mdx-Zjpn-Gpea, (Creon) 5509-8401 units capsule Take 1 capsule by mouth every 8 (eight) hours. Take 1 capsule by mouth 3 times every day with meals and 1 capsule with snack swallowing whole. Do not crush, chew or divide. 270 capsule 1 023 Active SUMAtriptan (Imitrex) 100 MG tabletIndicatio ns:Chronic migraine without aura without status migrainosus, not intractable Take 1 tablet (100 mg) by mouth 1 (one) time if needed for migraine. 9 tablet 1 Active escitalopram (Lexapro) 20 MG tablet TAKE 1 TABLET BY MOUTH EVERY MORNING *DOSE INCREASE FROM 10 TO 20 MG Active cholecalciferol VITAMIN D (Vitamin D-3) 50 MCG (2000 UT) capsuleIndicati ons:Low vitamin D level TAKE 1 CAPSULE BY MOUTH EVERY DAY 90 capsule 024 Active gabapentin (Neurontin) 600 MG tabletIndicatio ns:Chronic low back pain, unspecified back pain laterality, unspecified whether sciatica present TAKE 1 TABLET BY MOUTH AT BEDTIME 30 tablet 2 Active nicotine polacrilex (Commit) 4 MG lozenge Dissolve 1 lozenge (4 mg) in the mouth every 2 (two) hours if needed for smoking cessation. 100 lozenge 3 024 Active varenicline (Chantix Continuing Month Dustin) 1 MG tablet Take 1 tablet (1 mg) by mouth 2 times daily. Days 1-3: 0.5 mg daily , Days 4-7: 0.5 mg PO BID, Day 8 to end of treatment: 1 mg PO BID, 60 tablet 2 Active clopidogrel (Plavix) 75 MG tablet Take 75 mg by mouth. 024 2024 Active Famotidine (ZANTAC 360 PO) Take by mouth. Active Nystatin powder 1 Application at noon and 1 Application in the evening. 1 each Active olmesartan (Benicar) 20 MG tabletIndicatio ns:Essential hypertension Take 1 tablet (20 mg) by mouth Once per day. 30 tablet 11 024 2024 Active loratadine (Claritin) 10 MG tablet TAKE 1 TABLET BY MOUTH EVERY DAY 90 tablet 1 024 Active tamsulosin (Flomax) 0.4 MG 24 hr capsule TAKE 1 CAPSULE (0.4 MG) BY MOUTH IN THE MORNING. EVERY DAY 1/2 HOUR FOLLOWING THE SAME MEAL EACH DAY 90 capsule Active cyanocobalamin (Vitamin B-12) 1000 MCG tablet TAKE 1 TABLET (1,000 MCG) BY MOUTH ONCE PER DAY. 90 tablet 025 2025 Active albuterol (2.5 MG/3ML) 0.083% nebulizer solution TAKE 3 ML BY NEBULIZATION ROUTE EVERY 8 HOURS NEEDED FOR WHEEZING 75 mL 3 Active atorvastatin (Lipitor) 40 MG tablet TAKE 1 TABLET BY MOUTH EVERY DAY IN THE MORNING 90 tablet Active ipratropium-alb uterol (Combivent Respimat) 20-100 MCG/ACT inhalerIndicati ons:Moderate persistent asthma without complication Inhale 2 puffs every 6 (six) hours. 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 112 tablet 025 2024 Active ipratropium-alb uterol (Combivent Respimat) 20-100 MCG/ACT inhalerIndicati ons:Moderate persistent asthma without complication Inhale 2 puffs every 6 (six) hours. 4 g 3 024 2024 Discontinued(R eorder (will not trigger notification to Pharmacy)) Fluticasone-Ume clidin-Vilant (Trelegy Ellipta) 200-62.5-25 MCG/ACT aerosol powder Inhale. 2024 Discontinued(T herapy completed) atorvastatin (Lipitor) 40 MG tablet Take 1 tablet (40 mg) by mouth in the morning. 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 112 tablet 025 2024 Discontinued(R eorder (will not trigger notification to Pharmacy)) ipratropium-alb uterol (Combivent Respimat) 20-100 MCG/ACT inhaler Inhale 2 puffs every 6 (six) hours. 4 g 3 025 2024 Discontinued(R eorder (will not trigger notification to Pharmacy)) Active Problems Problem Noted Date Diagnosed Date [facility] 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 2023 Overview (09/05/2024): Dx: chronic neck, low back pain, LE claudication Rx: Oxycodone 15mg IR q 6 hours Last SKILLED LABORER agreement: 10/14/23 Additional considerations: Alprazolam 1mg for anxiety Timeline: previous positive utox for cocaine 11/2023 Chronic obstructive pulmonar y disease, unspecified COPD type 05/16/2024 Overview (09/05/2024): Following with [facility] [place]Dr. Maldonado Continue with Combivent inhaler Claudication of left lower extremity 05/16/2024 Vitamin B12 deficiency 05/16/2024 Left foot pain 03/13/2024 Tinea pedis 03/13/2024 Urinary incontinence 03/13/2024 Dysphagia 03/13/2024 Health care maintenance 01/27/2024 IBS (irritable bowel syndrome) 01/27/2024 Pain of left calf 01/27/2024 Hearing loss 01/27/2024 Chronic right shoulder pain 01/26/2023 Assessment & Plan (10/14/2023 1:41 PM EDT): Patient participated in group activities Utox and pill counts as expected Assessment & Plan (01/26/2023 8:46 PM EDT): Continue with pain medicine R shoulder improved with Injections 11/2022 Encouraged stretching Will refer to [facility] Continue SKILLED LABORER at this time. Will perform random Utox screens x 2. If both are normal will continue Educated pt on risk of buying anything from unknown source, risk of fentanyl. F/u 3 months or sooner PRN with new PCP Obstructive sleep apnea syndrome 01/19/2023 Overview (04/09/2023): Neuro appt 08/15/22 Discontinue sumatriptan and Topamax Refer to sleep medicine to resize cpap machine Sleep study 11/13/22: STEPHON mild and nocturnal hypoxemia average 89.5%; sleep medicine recommends CPAP d/t comorbidities including COPD and hypoxemia Auto Pap mode, 6-20 cm If pt cannot tolerate CPAP, recommends O2 supplementation at night Assessment & Plan (01/26/2023 8:40 PM EDT): Has been referred to sleep medicine by Neuro Pending sleep study. Pt reports no sleep study performed. Encouraged pt to discuss with sleep medicine F/u 3 months with new PCP Benign prostatic hyperplasia (BPH) with straining on urination 10/30/2022 Overview (01/19/2023): Care managed by Urology 12/04/22 F/u 1 year Chronic migraine without aur a without status migrainosus, not intractable 10/01/2022 Overview (01/26/2023): Pt had sumatriptan increased by specialist to Sumatriptan 100mg once, repeat 2 hr later if sx present, Max 3 times a week. Only 1 migraine in the last 2 weeks with new dose. Assessment & Plan (01/26/2023 8:47 PM EDT): Continue sumatriptan F/u with Neuro F/u 3 months with PCP or sooner PRN Neurogenic bladder 05/06/2018 Colitis 01/23/2018 Microscopic hematuria 12/03/2012 Cervical spondylosis without myelopathy 11/07/19 13 Assessment & Plan (09/05/2024 3:11 PM EST): -Good engagement and participation with Group Medical Visit model -Encouraged multifactorial approach to pain control including pharm and non- pharm modalities -UTOX and Pill count as expected Assessment & Plan (06/02/2024 1:56 PM EST): Patient here for chronic pain group He participated fully in group, with low mood and affect Urine toxicology as expected Pill count as expected Followup in one month Assessment & Plan (03/30/2024 1:58 PM EDT): Patient here for chronic pain group and we had individual visit as described in acute section He participated fully in group, though his mood and affect were lower than usual Urine toxicology as expected Pill count as expected Followup in one month Assessment & Plan (03/02/2024 9:38 PM EDT): Patient here for chronic pain group and discussed concerns about getting vaccinations for the fall/winter season He participated fully in group Urine toxicology as expected Pill count as expected Followup in one month Assessment & Plan (01/13/2024 2:20 PM EDT): -Good engagement and participation with Group Medical Visit model -Encouraged multifactorial approach to pain control including pharm and non- pharm modalities -UTOX and Pill count as expected Assessment & Plan (12/16/2023 11:42 AM EDT): Patient here for chronic pain group and open about discussing functional limitations and safety concerns (broken door, LifeAlert, smoking in bed) MRI of brain is to rule out retrocochlear mass MRI of neck is completed 12/07/23 and read as no fracture, C7 fracture seen on CT scan at [facility] 10/28/23 He participated fully in group Urine toxicology was positive for THC, as expected Pill count as expected Followup in one month Assessment & Plan (11/19/2023 12:08 PM EDT): Patient here for chronic pain group and very emotional about recent C spine fracture. Feeling frustrated that he cannot get his MRI for brain and neck more quickly. MRI of brain is to rule out retrocochlear mass MRI of neck is for C7 fracture seen on CT scan at [facility] 10/28/23 He participated fully in group despite these frustrations and their effects on his mental health Urine toxicology was positive for cocaine, send out for confirmation is pending Pill count as expected Will followup based on results of urine toxicology confirmation with plan for future screening Assessment & Plan (09/16/2023 2:41 PM EDT): Pt attended and participated in group today - urine tox and pill count as expected - followup in one month for theme [facility] [employer] [facility] Hemangioma of liver 11/03/2012 Simple renal cyst 10/20/2012 Lipoma 10/08/2012 Overview (01/21/2023): Lipoma R back, removed and biopsied 10/14/22 Benign Chronic low back pain 03/20/2012 Overview (12/16/2023): History of positive utox screening for Fentanyl 12/2022 and cocaine 11/2023 Assessment & Plan (03/05/2023 9:37 PM EDT): Continue with pain medicine R shoulder improved with Injections 11/2022 Encouraged stretching Will refer to [facility] physical therapy Continue SKILLED LABORER at this time. Will perform random Utox screens x 2. If both are normal will continue Educated that this is an exception and should his meds be stolen in the future, no early refill will be given. Pain continues, ambulates with cane and has a walker for ambulation as well. Referred physical therapy 01/26/23 Has ortho appt 04/28/23 F/u 3 months or sooner PRN with new PCP Assessment & Plan (01/26/2023 8:44 PM EDT): Continue with pain medicine Left hip and left knee pain may be r/t to lumbar pain. Encouraged stretching Will refer to [facility] Continue SKILLED LABORER at this time. Will perform random Utox screens x 2. If both are normal will continue Educated pt on risk of buying anything from unknown source, risk of fentanyl. F/u 3 months or sooner PRN with new PCP Asthma 01/31/2012 Depression, recurrent 01/31/2012 Tobacco dependence syndrome 12/27/2011 Essential hypertension 12/05/2011 Overview (01/26/2023): Continue checking at home Continue Olmesartan 20mg Reports he successfully stopped lisinopril 5mg Assessment & Plan (01/26/2023 8:25 PM EDT): Continue olmesartan 20 mg F/u PRN with NEW PCP Resolved Problems Problem Noted Date Diagnosed Date Resolved Date Class 1 obesity 09/16/2023 01/27/2024 Abnormal urine odor 01/23/2018 10/02/19 Encounters Date Type Department Care Team Description 09/06/2024 Orders Only GENERIC EXTERNAL DATA DEPARTMENT Provider, Generic External Data 09/06/2024 Telephone [facility] [address] [place] [address] Amy Pickett MD Durable Medical Equipment (Boost recert) 09/01/2024 Refill [facility] [address] [place] [address] Amy Pickett MD Chronic pain of both knees; Chronic low back pain, unspecified back pain laterality, unspecified whether sciatica present 09/01/2024 Refill [facility] [address] [place] [address] Amy Pickett MD Moderate persistent asthma without complication 09/01/2024 Telephone [facility] [address] [place] [address] Amy Pickett MD 09/01/2024 Telephone [facility] [address] [place] [address] Amy Pickett MD 08/31/2024 9:45 AM EST Office Visit [facility] [address] [place] [address] Holly Wills FNP Cervical spondylosis without myelopathy (Primary Dx); [facility] 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; Chronic obstructive pulmonary disease, unspecified COPD type (CMS/[facility]) 08/31/2024 Refill [facility] [address] [place] [address] Holly Wills FNP Moderate persistent asthma without complication 08/31/2024 Travel 08/25/2024 Telephone [facility] [address] [place] [address] Shu Martínez [place] October08/15/2024 Refill [facility] [address] [place] [address] Amy Pickett MD 08/06/2024 Telephone [facility] [address] [place] [address] Amy Pickett MD Med Refill 08/06/2024 Refill [facility] [address] [place] [address] Amy Pickett MD Chronic pain of both knees; Chronic low back pain, unspecified back pain laterality, unspecified whether sciatica present 08/04/2024 Refill [facility] [address] [place] [address] Amy Pickett MD 08/04/2024 Telephone [facility] [address] [place] [address] 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 RN 08/04/2024 Travel 08/03/2024 Telephone [facility] [address] [place] [phone] Amy Pickett MD Appointment Request 07/13/2024 Telephone [facility] [address] [place] [phone] Amy Pickett MD 07/09/2024 Refill [facility] [address] [place] [phone] Amy Pickett MD Chronic pain of both knees; Chronic low back pain, unspecified back pain laterality, unspecified whether sciatica present 06/24/2024 Orders Only [facility] [address] [place] [phone] Bryan Matos MD 06/23/2024 Refill [facility] [address] [place] [address] Amy Pickett MD 06/17/2024 Refill [facility] [address] [place] [address] Amy Pickett MD 06/09/2024 Refill [facility] [address] [place] [address] Amy Pickett MD Chronic pain of both knees; Chronic low back pain, unspecified back pain laterality, unspecified whether sciatica present from Last 3 Months Immunizations Name Administration Dates Next Due Hep B, adult 05/17/2010,11/09/2009,10/13/2009 Influenza Injectable Quadriv alant Preservative Free IIV4 MDCK 04/08/2022,08/22/2021,03/23/2019 Influenza injectable quadriv alent preservative free 03/29/2021,03/16/2020,08/10/2019,02/19,02/11/2018,02/11/2017,08/01/2016 Influenza, Split (incl. macho fied surface antigen) 03/31/2013,03/20/2012 Influenza, seasonal, injecta ble, preservative free 04/02/2024,03/19/2024 MMR 02/09/2019 Moderna Covid-19 Vaccine 12+ 10/28/2021,11/06/19 21 Pfizer Covid-19 Vaccine 12+ 10/28/2021 Pneumococcal Conjugate PCV 20 01/27/2024 Pneumococcal Polysaccharide PPSV23 05/15,08/10/2019,01/02/2018,10/27 Tdap 08/01/2016,10/27/2012 Zoster, Recombinant 04/02/2024,08/01/2020,2019 Family History Medical History Relation Name Comments Leukemia Father Prostate cancer Father unspecified maligancy Father's Sister DM2,HTN,athrosis,asthma Mother Relation Name Status Comments Father Father's Sister Mother Social History Tobacco Use Types Packs/Day Years Used Date Smoking Tobacco: Every Day Cigarettes Smokeless Tobacco: Never Tobacco Cessation:Ready to Q uit: Not Asked; Counseling Given: Not Answered Comments:Started tobacco smoking 16 y of age until now,stopped for [...] Orientation Straight 05/06/2022 10 :21 AM EDT Last Filed Vital Signs Vital Sign Reading Time Taken Comments Blood Pressure 140/86 05/14/2024 10:30 AM EST Pulse 64 05/14/2024 10:23 AM EST Temperature 36.6 ??C (97.9 ??F) 05/14/2024 10:[address] Respiratory Rate 20 05/14/2024 10:23 AM EST Oxygen Saturation 96% 05/14/2024 10:23 AM EST Inhaled Oxygen Concentration - - Weight 78.6 kg (173 lb 3.2 oz) 05/14/2024 10:23 AM EST Height 162.6 cm (5' 4 ) 05/14/2024 10:23 AM EST Body Mass Index 29.73 05/14/2024 10:23 AM EST Plan of Treatment Upcoming Encounters Date Type Department Care Team (Late st Contact Info) Description 09/28/2024 9:45 AM EDT Office Visit [facility] [address] [place] [address] 11/24/2024 2:15 PM EDT Office Visit [facility] [address] [place] [address] Amy Pickett MD [address] [place] [address] Health Maintenance Due Date Last Done Comments CT Colonography 1967 FIT DNA/Cologuard 1967 FIT 1967 FOBT 1967 Sigmoidoscopy 1967 Alcohol/Substance Use Screening 1979 Hepatitis A Vaccines (1 of 2 - Risk 2-dose series) 12/23/1986 Depression Monitoring (PHQ-9) 09/09/2024 03/12/2024, 03/12/2024 Depression Screening 03/12/2025 03/12/2024, 03/12/20 24 SDOH Screening 05/14/2025 05/14/2024 Tobacco Screening 06/02/2025 06/02/2024 DTaP/Tdap/Td Vaccines (3 - Td or Tdap) 08/01/2026 08/01/2016, 10/27/2012 Colonoscopy 01/07/2028 01/06/2018 Colorectal Cancer Screening 01/07/2028 Lipid Panel 03/19/2029 03/19/2024 RSV Patients and Patients Aged 60 years or older (1 - 1-dose 75+ series) 12/23/2042 Hepatitis B Vaccines Completed 05/17/2010, 11/09/2009, 10/13/2009 Pneumococcal Vaccine: 50+ Years Completed 01/27/2024, 05/15/2020, 08/10/2019, Additional history exists HIV Screening Completed 03/19/2024 Hepatitis C Screening Completed 03/19/2024, 024 COVID-19 Vaccine Completed 04/02/2024, 09/2021, 10/28/2021, Additional history exists Influenza Vaccine Completed 04/02/2024, , 04/08/2022, Additional history exists Zoster Vaccines Completed 04/02/2024, 07/08, 05/15/2020 HIB Vaccines Aged Out No longer eligi ble based on patient's age to complete this topic HPV Vaccines Aged Out No longer eligi ble based on patient's age to complete this topic IPV Vaccines Aged Out No longer eligi ble based on patient's age to complete this topic Meningococcal Vaccine Aged Out No princess ilda eligible based on patient's age to complete this topic RSV under 20 months Aged Out No longe r eligible based on patient's age to complete this topic Rotavirus Vaccines Aged Out No longer eligible based on patient's age to complete this topic Procedures Procedure Name Priority Date/Time Associated Diagnosis Comments HIGH SENSITIVITY TROPONIN I Routine 09/06/2024 12:14 PM EST MAGNESIUM Routine 09/06/2024 12:14 PM EST COMPREHENSIVE METABOLIC PANEL Routine 09/06/2024 12:14 PM EST APTT Routine 09/06/2024 12:14 PM EST PROTHROMBIN TIME-INR Routine 09/06/2024 12:14 PM EST CBC WITH AUTO DIFFERENTIAL Routine 09/06/2024 12:14 PM EST URINALYSIS WITH REFLEX MICROSCOPIC Routine 09/06/2024 12:14 PM EST SARS COV2/INFLUENZA A/B AND RSV RNA QL NAAT Routine 09/06/2024 12:14 PM EST XR CHEST 2 VIEWS Routine 09/06/2024 11:5 7 AM EST POCT ROBIN-14 URINE DRUG SCREEN Routine 08/31/2024 1:11 PM EST 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 HEPATITIS C AB W/REFL TO HCV RNA, QN, PCR Routine 03/19/2024 9:30 AM EDT Annual physical exam HIV 1/2 ANTIGEN/ANTIBODY, FOURTH GENERATION W/RFL Routine 03/19/2024 9:30 AM EDT Annual physical exam LIPID PANEL, STANDARD Routine 03/19/2024 9:30 AM EDT Annual physical exam HM COLONOSCOPY Routine 01/06/2018 8:00 AM EDT from Last 3 Months or Most Recently Relevant to Health Maintenance Results * High Sensitivity Troponin I (09/06/2024 12:14 PM EST) TROPONIN I HIGH SENSITIVITY <2.7 <3.5 - 35.0 ng/L [facility] Comment:The [place] high sens itivity Troponin-I results should beused in conjunction with other diagnostic information suchas ECG, clinical observations and information, and patientsymptoms to aid in the diagnosis of [place]. 09/06/2024 12:1 4 PM EST 09/06/2024 12:19 PM EST us Generic External Data Provider LAB BLOOD ORDERAB LES Final Result [facility] [address] [place] [phone] * SARS-CoV-2 RNA, Influenza A/B, and RSV RNA, Ql NAAT (09/06/2024 12:14 PM EST) Pathologist [facility] Influenza A PCR NEGATIVE Negative [facility] Influenza B PCR NEGATIVE Negative [facility] Resp Syncy Virus RNA Qual PCR NEGATIVE Negative [facility] SARS COV2 PCR NEGATIVE Negative [facility] Comment:All test results mus t [...] use by authorized laboratories.Testing performed on the [employer] GeneXpert utilizingreal-time RT-PCR.All SARS CoV2 and positive influenza A/B results arereported to [facility]. 09/06/2024 12:1 4 PM EST 09/06/2024 12:19 PM EST us Generic External Data Provider LAB MICROBIOLOGY - GENERAL ORDERABLES Final Result [facility] [address] [place] [phone] [phone] * (ABNORMAL) CBC auto differential (09/06/2024 12:14 PM EST) White Blood Count 7.6 4.8 - 10.8 X10*3/uL [facility] Red Blood Count 4.30(L) 4.60 - 5.80 X10*6/uL [facility] Hemoglobin 13.3(L) 14.0 - 18.0 g/dl [facility] Hematocrit 40.1(L) 42.0 - 52.0 % [facility] Mean Corpuscular Volume 93.3 80.0 - 98.0 fL [facility] Mean Corpuscular Hemoglobin 30.9 27.0 - 33.0 pg [facility] Mean Corpuscular HGB Conc 33.2 31.0 - 36.0 g/dl [facility] Red Cell Distribution Width 14.2 11.0 - 16.0 % [facility] Platelet Count 248 160 - 400 X10*3/uL [facility] Mean Platelet Volume 9.2(L) 9.4 - 12.4 fL [facility] Neutrophils Percent Auto 73.0 45 - 73 % [facility] Imm Gran Pct Auto 0.3 0.0 - 0.4 % [facility] Lymphocytes Percent Auto 20.0 20 - 40 % [facility] Monocytes Percent Auto 6.2 2 - 11 % [facility] Eosinophils Percent Auto 0.4 0 - 4 % [facility] Basophils Percent Auto 0.1 0 - 2 % [facility] NRBC Pct Auto 0.0 0.0 - 0.2 /100WBC [facility] Neutrophils Absolute Auto 5.5 2.0 - 8.3 x10*3/uL [facility] Imm Gran Abs Auto 0.02 0.00 - 0.03 X10*3/uL [facility] Lymphocytes Absolute Auto 1.5 1.2 - 4.9 X10*3/uL [facility] Monocytes Absolute Auto 0.5 0.1 - 1.2 X10*3/uL [facility] Eosinophils Absolute Auto 0.0 0.0 - 0.4 X10*3/uL [facility] Basophils Absolute Auto 0.0 0.0 - 0.2 X10*3/uL [facility] NRBC Abs Auto 0.000 0.0 - 0.012 X10*3/uL [facility] 09/06/2024 12:1 4 PM EST 09/06/2024 12:19 PM EST us Generic External Data Provider LAB BLOOD ORDERAB LES Final Result Performing Organization Address [facility]/ZIP Co de Phone Number [facility] [address] [place] [phone] * Urinalysis w/reflex microscopic (09/06/2024 12:14 PM EST) Color Urine Yellow [facility] Appearance Urine Clear [facility] PH 6.5 5.0 - 9.0 [facility] Glucose Urine UA Negative Negative mg/dL [facility] Urine Blood Negative Negative [facility] Specific [place] - Urine <=1.005 1.005 - 1.025 [facility] Urine Protein Negative Neg-Trace mg/dL [facility] Urine Ketones Negative Negative mg/dL [facility] Nitrite Urine Negative Negative [facility] Leukocyte Esterase Urine Negative Negative [facility] 09/06/2024 12:1 4 PM EST 09/06/2024 12:19 PM EST Narrative [facility] - 09/06/2024 12:23 PM EST Urine, Clean Catch us Generic External Data Provider LAB URINE ORDERAB LES Final Result [facility] [address] [place] [phone] * Partial Thromboplastin Time, Activated (APTT) (09/06/2024 12:14 PM EST) Partial Thromboplastin Time 30.4 26.0 - 36.8 SEC [facility] Comment:For information rega rding the monitoring of direct thrombininhibitors, please refer to Pharmacy. 09/06/2024 12:1 4 PM EST 09/06/2024 12:19 PM EST Generic External Data Provider LAB BLOOD ORDERAB LES Final Result Performing Organization Address [facility] de Phone Number [facility] [address] [place] [phone] * Prothrombin Time-INR (09/06/2024 12:14 PM EST) [facility] Signature Prothrombin Time 11.4 10.9 - 12.4 SEC [facility] INTERNATIONAL NORM RATIO 1.0 0.9 - 1.1 [facility] Comment:INTERNATIONAL NORMAL IZED RATIO (INR) [...] ORDERAB LES Final Result Performing Organization Address [facility] de Phone Number [facility] [address] [place] [phone] * Magnesium (09/06/2024 12:14 PM EST) Magnesium 2.1 1.6 - 2.6 mg/dL [facility] 09/06/2024 12:1 4 PM EST 09/06/2024 12:19 PM EST us Generic External Data Provider LAB BLOOD ORDERAB LES Final Result [facility] [address] [place] [address] [phone] * Comprehensive Metabolic Panel (09/06/2024 12:14 PM EST) Sodium 141 135 - 145 mmol/L [facility] Potassium 4.7 3.3 - 5.1 mmol/L [facility] Comment:SLIGHT HEMOLYSIS.Int erpret result with caution. Chloride 107 96 - 108 mmol/L [facility] Carbon Dioxide 26 22 - 29 mmol/L [facility] Anion Gap 13 12 - 20 [facility] Urea Nitrogen (BUN) 12 9 - 16 mg/dL [facility] Creatinine, Serum 0.90 0.5 - 1.4 mg/dL [facility] Creatinine Clr Calc Pharmacy 86.4 [facility] Comment:eGFR (calculated fro m the MDRD study equation) and eCrCl(calculated from the Cockcroft-Gault equation) are based ondifferent parameters and may not yield comparable results.If eCrCl result is absurd, please check patient'sheight/weight. Estimated Glomerular Filt Rate >60 [facility] Comment:Chronic Kidney Disea se: Estimated GFR < 60 mL/min/1.88k0Dgtykc Kidney Disease: Estimated GFR < 15 mL/min/1.73m2 Glucose 80 60 - 115 mg/dL [facility] Calcium 9.2 8.4 - 10.2 mg/dL [facility] Bilirubin, Total 0.9 0.0 - 1.0 mg/dL [facility] Aspartate Amino Transferase 25 5 - 37 U/L [facility] Comment:Slight Hemolysis.Int erpret result with caution. Alanine Aminotransferase 21 0 - 40 U/L [facility] Total Protein 7.4 6.5 - 8.0 g/dL [facility] Albumin Level 3.9 3.5 - 5.0 g/dL [facility] Alkaline Phosphatase 78 39 - 117 U/L [facility] 09/06/2024 12:1 4 PM EST 09/06/2024 12:19 PM EST us Generic External Data Provider LAB BLOOD ORDERAB LES Final Result [facility] [address] [place] [phone] [phone] * XR Chest 2 Views (09/06/2024 11:57 AM EST) Anatomical Region Laterality Modality Chest Radiographic Maxine ging 09/06/2024 11:5 7 AM EST Narrative 09/06/2024 1:08 PM EST ? [facility] ?[address] ?[place] [address] ?XRay Report ? Signed ? Patient: Pati NenoEsequiel ?MR# ?? : [id number] ? : 1965 ?Acct:[id number] ? Age/Sex: 58 / M ?ADM Date: 09/06/24 ? Loc: HO.ED ? Attending Dr: ? Ordering Physician: Haleigh Arora ?? Date of Service: 09/06/24 ?? Procedure(s): XR chest 2V ?? Accession Number(s): [id number] ? cc: Haleigh Arora; Amy Pickett MD [...] DD/ 1157 ? TD/TT: 09/06/24 1245 ? Furnace Operator And Tender: ? Procedure Note Donotuseinterpreter, Image - 09/06/[address] [address] XRay Report Signed Patient: Zain Welch LMR# : [id number] : 1965Acct:[id number] Age/Sex: 58 / MADM Date: 09/06/24 Loc: HO.ED Attending Dr: Ordering Physician: Haleigh Arora Date of Service: 09/06/24 Procedure(s): XR chest 2V Accession Number(s): [id number] cc: Haleigh Arora; Amy Pikcett MD EXAMINATION: XR CHEST 2 VIEWS HISTORY: [...] by: Terry Jesus MD 09/06/2024 01:05 PM EST Dictated By: Terry Jesus MD Signed By: <Electronically signed by Terry Jesus MD in OV> 09/06/24 1305 DD/ 1157 TD/TT: 09/06/24 1245 Furnace Operator And Tender: [facility] External Provider IMG XR PROCEDURES Final Result * POCT ROBIN-14 Urine Drug Screen (08/31/2024 1:11 PM EST) THC Positive Benzodiazepines Screen, Urine Positive Oxycodone Screen, Urine Positive Urine Urine specimen obtained by clean catch procedure / Unknown 08/31/2024 1:11 PM EST Narrative 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, RN - 08/31/2024 1:11 PM EST .UTOX cup Lot#[id number] Exp. 02/23/26 Internal Pass Control Holly Wills OFFICE RN POINT OF CARE TEST ENTER/EDIT ORDERABLES Edited Result - Final * (ABNORMAL) Hepatitis C Antibody with Reflex to HCV, RNA, Quantitative, Real- Time PCR (03/19/2024 9:30 AM EDT) [facility] Hepatitis C Antibody Reactive( A) Nonreactive [facility] Comment:Presumptive evidence of antibodies to HCV. Blood Venous blood specimen / Unknown 03/19/2024 9:30 AM EDT 03/19/2024 11:45 AM EDT Amy Berry MD LAB BLOOD ORDERAB LES Final Result [facility] [address] [place] [address] [phone] * HIV-1/2 Antigen and Antibodies, Fourth Generation, with Reflexes (03/19/2024 9:30 AM EDT) Pathologist [facility] HIV AB/AG Nonreactive Nonreactive [facility] Comment:HIV-1 p24 Ag and/or HIV-1/HIV-2 Ab not detected.A test result that is nonreactive does not exclude thepossibility of exposure to or infection with HIV-1 and/orHIV-2. Nonreactive results in this assay for individualswith prior exposure to HIV-1 and/or HIV-2 may be due toantigen and antibody levels that are below the limit ofdetection of this assay.The [employer] HIV Ag/Ab Combo assay result andsupplemental assay results should be interpreted inconjunction with the patient's clinical presentation,history and other laboratory results. If the results areinconsistent with clinical evidence, additional testing issuggested to confirm the result. Blood Venous blood specimen / Unknown 03/19/2024 9:30 AM EDT 03/19/2024 11:45 AM EDT us Amy Berry MD LAB BLOOD ORDERAB LES Final Result Performing Organization Address [facility]/ZIP Co de Phone Number [facility] [address] [place] [address] [phone] * (ABNORMAL) Lipid Panel, Standard (03/19/2024 9:30 AM EDT) Triglycerides 117 <150 mg/dL [facility] Comment:Desirable Triglyceri de: less than 150 mg/dLBorderline High Triglyceride 150-199 mg/dLHigh Triglyceride: 200-499 mg/dLVery High Triglyceride: greater than or equal to 5OO mg/dL Cholesterol 259(H) <200 mg/dL [facility] Comment:Desirable Cholestero l: less than 200 mg/dLBorderline High Cholesterol: 200-239 mg/dLHigh Cholesterol: greater than 239 mg/dL LDL Cholesterol Calculated 183(H) <100 mg/dL [facility] Comment:Desirable LDL: less than 100 mg/dLNear Optimal/Above Optimal LDL: 110- 129 mg/dLBorderline High LDL: 130-159 mg/dLHigh LDL: 160-189 mg/dLVery High LDL: greater than or equal to 190 mg/dL HDL Cholesterol 53 >40 mg/dL [facility] Comment:Desirable HDL: great er than 40 mg/dL Note: This HDL assay may give artificially low results in patients with liver disease. Blood Venous blood specimen / Unknown 03/19/2024 9:30 AM EDT 03/19/2024 11:48 AM EDT us Amy Berry MD LAB BLOOD ORDERAB LES Final Result Performing Organization Address [facility]/ZIP Co de Phone Number [facility] [address] [place] [phone] * Hm Colonoscopy (01/06/2018 8:00 AM EDT) us Historical Provider HEALTH MAINTENANCE Final Result from Last 3 Months or Most Recently Relevant to Health Maintenance Insurance [id number] [address] [facility] Care Teams Test Center Manager Relationship Specialty Start Date End Date Amy Pickett MD [address] [place] [phone] PCP - General Internal Medicine 04/07/23
--- OUTSIDE RECORDS SUMMARY | 2024-09-07 00:04 | XMS_ITS | Encounter Summary ---
Author Organization [employer] Address [address] [facility] 7t [place] [address] Care Team Providers Care Search Developer Name Role Phone Amy Pickett MD Primary Care Pro vider Encounter Details Date Type Department Care Team (Late st Contact Info) Description 09/01/[address] [facility] [address] [place], [place] [phone] Amy Pickett MD [address] [place], [place] [phone] Social History Tobacco Use Types Packs/Day Years [...] Description 09/28/2024 9:45 AM EDT Office Visit [facility] [address] [place] [phone] 11/24/2024 2:15 PM EDT Office Visit [facility] [address] [place] [phone] Amy Pickett MD [address] [place] [phone] documented as of this encounter Visit Diagnoses Not on filedocumented in this encounter Additional Health Concerns Assessment Noted Time PHQ-9 Depression Total Score: 10 024 9:41 AM EDT documented as of this encounter Care Teams Search Developer Relationship Specialty Start Date End Date Amy Pickett MD [address] [place] [phone] PCP - General Internal Medicine 04/07/23 documented as of this encounter
--- OUTSIDE RECORDS SUMMARY | 2024-09-07 00:04 | XMS_ITS | Clinical Summary ---
Author Organization [facility] Address [address] [place] [address] Care Team Providers Care Truck Crane Operator Helper Name Role Phone Donna Harmon MD Primary Care Provider Unav ailable Medications tamsulosin (FLOMAX) 0.4 MG 24 hr capsule Take 1 capsule by mouth 1 (one) time each day Active QUEtiapine (SEROquel) 50 MG tablet Take 1 tablet by mouth 1 (one) time each day Active pantoprazole (PROTONIX) 40 MG EC tablet Take 1 tablet by mouth 1 (one) time each day Active oxyCODONE (ROXICODONE) 15 MG immediate release tablet Take as directed Active OXcarbazepine (TRILEPTAL) 300 MG tablet Take 1 tablet by mouth 2 (two) times a day Active mirtazapine (REMERON) 30 MG tablet Take 1 tablet by mouth 1 (one) time each day Active methocarbamol (ROBAXIN) 750 MG tablet Take 1 tablet by mouth every 4 (four) hours Active lisinopril (PRINIVIL,ZESTRI L) 5 MG tablet Take 1 tablet by mouth 2 (two) times a day Active ipratropium-albu terol (Combivent Respimat) 20-100 MCG/ACT inhaler Acti ve gabapentin (NEURONTIN) 300 MG capsule Take 2 capsules by mouth 3 (three) times a day Active escitalopram (LEXAPRO) 10 MG tablet Take 1 tablet by mouth 1 (one) time each day Active fluticasone HFA (Flovent HFA) 220 MCG/ACT inhaler Active ALPRAZolam (NIRAVAM) 2 MG dispersible tablet Take 1 tablet by mouth 2 (two) times a day Active cholecalciferol (VITAMIN D-3) 25 MCG (1000 UT) tablet Take 1 capsule by mouth 1 (one) time each day Active Active Problems Problem Noted Date Diagnosed Date Multiple renal cysts 10/20/2019 Hypertensive disorder 10/20/2019 Microscopic hematuria 10/20/2019 Resolved Problems Problem Noted Date Diagnosed Date Resolved Date Asthma 10/20/2019 10/20/2019 Eczema 10/20/2019 10/21/2019 Hemangioma of liver 10/20/2019 10/20/19 20 Multiple lipomata 10/20/2019 10/20/2019 Family History Relation Status Comments Father Unknown Mother Unknown Social History Tobacco Use Types Packs/Day Years Used Date Smoking Tobacco: Every Day Cigarettes Alcohol Use Standard Drinks/Week Comments No 0 (1 standard drink = 0.6 oz pur e alcohol) Sex and Gender Information Value Date Recorded Sex Assigned at Not on file Legal Sex Male 4:30 PM EST Gender Identity Not on file Sexual Orientation Not on file Last Filed Vital Signs Vital Sign Reading Time Taken Comments Blood Pressure 110/70 03/10/2018 12:00 PM EDT Pulse 74 03/10/2018 12:00 PM EDT Temperature - - Respiratory Rate 16 03/10/2018 12:00 PM EDT Oxygen Saturation - - Inhaled Oxygen Concentration - - Weight 78 kg (172 lb) 03/10/2018 12:00 PM EDT Height 162.6 cm (5' 4 ) 03/10/2018 12:00 PM EDT Body Mass Index 29.52 03/10/2018 12:00 PM EDT Plan of Treatment Health Maintenance Due Date Last Done Comments Pneumococcal Vaccine: Pediat rics (0 to 5 Years) and At-Risk Patients (6 to 64 Years) (1 of 2 - PCV) 12/23/1973 Hepatitis B Vaccine (1 of 3 - 19+ 3-dose series) 12/23 Colorectal Cancer Screening: Annual FOBT 12/23/2016 Colorectal Cancer Screening: Colonoscopy 12/23/2016 Colorectal Cancer Screening: Sigmoidoscopy 12/23/2016 Influenza Vaccine (#1) 2024 Insurance [employer] Care Teams Truck Crane Operator Helper Relationship Specialty Start Date End Date Donna Harmon MD PCP - General 05/11/19
--- OUTSIDE RECORDS SUMMARY | 2024-09-07 00:04 | XMS_ITS | Encounter Summary ---
Author Organization [employer] Address [address] [facility] 7t [place] [address] Care Team Providers Care Oil Pumper Name Role Phone Amy Pickett MD Primary Care Pro vider Reason for Visit * Reason Onset Date Comments Med Refill 09/01/2024 Encounter Details Date Type Department Care Team (Late st Contact Info) Description 09/01/2024 Refill [facility] [address] [place], [place] [phone] Amy Pickett MD [address] [place], [place] [phone] Chronic pain of both knees; Chronic low back pain, unspecified back pain laterality, unspecified whether sciatica present Social History Tobacco Use Types Packs/Day Years [...] encounter Miscellaneous Notes * Telephone Encounter - Kate Mackey - 09/01/2024 12:36 PM EST TC from pt requesting medication refill. Medications needing refill : oxyCODONE (Roxicodone) 15 MG immediate release tablet To be sent to: [facility]/pharmacy #[id number] - [address] documented in this encounter Plan of Treatment Upcoming Encounters Date Type Department Care Team (Late st Contact Info) Description 09/28/2024 9:45 AM EDT Office Visit [facility] [address] [place] [phone] 11/24/2024 2:15 PM EDT Office Visit [facility] [address] [place] [phone] Amy Pickett MD [address] [place] [phone] documented as of this encounter Visit Diagnoses Diagnosis Chronic pain of both knees Chronic low back pain, unspecified back pain laterality, unspecified whether sciatica present documented in this encounter Additional Health Concerns Assessment Noted Time PHQ-9 Depression Total Score: 10 024 9:41 AM EDT documented as of this encounter Care Teams Oil Pumper Relationship Specialty Start Date End Date Amy Pickett MD [address] [place] [phone] PCP - General Internal Medicine 04/07/23 documented as of this encounter
--- OUTSIDE RECORDS SUMMARY | 2024-09-07 00:04 | XMS_ITS | Encounter Summary ---
Author Organization [employer] Address 75 [facility] 7t [place] [address] Care Team Providers Care Wire Stripping Machine Operator Name Role Phone Amy Pickett MD Primary Care Pro vider Reason for Visit * Reason Onset Date Comments Med Refill 09/01/2024 Encounter Details Date Type Department Care Team (Late st Contact Info) Description 09/01/2024 Refill [facility] [address] [place], [place] [phone] Amy Pickett MD [address] [place], [place] [phone] Moderate persistent asthma without complication Social History Tobacco Use Types Packs/Day Years [...] Telephone Encounter - Kate Mackey - 09/01/2024 12:34 PM EST TC from pt requesting medication refill. Medications needing refill : ipratropium-albuterol (Combivent Respimat) 20-100 MCG/ACT inhaler To be sent to: [facility]/pharmacy #[id number] - [address] documented in this encounter Plan of Treatment Upcoming Encounters Date Type Department Care Team (Late st Contact Info) Description 09/28/2024 9:45 AM EDT Office Visit [facility] [address] [place] [phone] 11/24/2024 2:15 PM EDT Office Visit [facility] [address] [place] [phone] Amy Pickett MD [address] [place] [address] [phone] documented as of this encounter Visit Diagnoses Diagnosis Moderate persistent asthma without complication documented in this encounter Additional Health Concerns Assessment Noted Time PHQ-9 Depression Total Score: 10 024 9:41 AM EDT documented as of this encounter Care Teams Wire Stripping Machine Operator Relationship Specialty Start Date End Date Amy Pickett MD [address] [place] [phone] PCP - General Internal Medicine 04/07/23 documented as of this encounter
--- OUTSIDE RECORDS SUMMARY | 2024-09-07 00:04 | XMS_ITS | Encounter Summary ---
Author Organization [employer] Address 75 [facility] 7 [place] [address] Care Team Providers Care Meteorological Observer Name Role Phone Amy Pickett MD Primary Care Pro vider Reason for Visit * Reason Onset Date Comments Med Refill 04/09/2024 Encounter Details Date Type Department Care Team ([facility] st Contact Info) Description 04/09/2024 Telephone [facility] [address] [place], [place] [phone] Amy Pickett MD [address] [place], [place] [phone] Med Refill Social History Tobacco Use Types [...] housing situation today? I have claudio medrano 04/28/[address] you li ve. Do you have problems with any of the following? None of the above 04/28/2023 Food Insecurity Answer Date Recorded Within the past 12 months, y ou worried that your food would run out before you got money to buy more: Never True 04/28/2023 Within the past 12 months,th e food you bought just didn't last and you didn't have enough money to get more: Never True Transportation Answer Date Recorded In the past 12 months, has l ack of transportation kept you from medical appts, meetings, work or from getting things needed for daily living? No 04/28/2023 Utilities Answer Date Recorded In the past 12 months, has t he electric, gas, oil or water company threatened to shut off services in your home? No 04/28/2023 Depression Answer Date Recorded Patient Health Questionnaire-2 Score 4 03/12/2024 Sex and Gender Information Value Date Recorded Sex Assigned at Male 05/06/2022 10:21 AM EDT Legal Sex Male 10:21 AM EDT Gender Identity Male 05/06/2022 10:21 AM EDT Sexual Orientation Straight 05/06/2022 10 :21 AM EDT documented as of this encounter Miscellaneous Notes * Telephone Encounter - Akira Khan - 04/09/2024 1:33 PM EDT TC from pt requesting medication refill. Medications needing refill : oxyCODONE (Roxicodone) 15 MG immediate release tablet To be sent to: [facility]/pharmacy #[id number] - [address] documented in this encounter Plan of Treatment Upcoming Encounters Date Type Department Care Team (Late st Contact Info) Description 09/28/2024 9:45 AM EDT Office Visit [facility] [address] [place] [phone] 11/24/2024 2:15 PM EDT Office Visit [facility] [address] [place] [phone] Amy Pickett MD [address] [place], [place] [phone] documented as of this encounter Visit Diagnoses Not on filedocumented in this encounter Additional Health Concerns Assessment Noted Time PHQ-9 Depression Total Score: 10 09/06/2 024 9:41 AM EDT documented as of this encounter Care Teams Meteorological Observer Relationship Specialty Start Date End Date Amy Pickett MD [address] [place] [phone] PCP - General Internal Medicine 04/07/23 documented as of this encounter
--- OUTSIDE RECORDS SUMMARY | 2024-09-07 00:04 | XMS_ITS | Encounter Summary ---
Author Organization [employer] Address 75 [facility] 7t [place] [address] Care Team Providers Care Clerical Assigner Name Role Phone Amy Pickett MD Primary Care Pro vider Encounter Details Date Type Department Care Team (Late st Contact Info) Description 09/01/2024 Telephone [facility] [address] [place], [place] [phone] Amy Pickett MD [address] [place], [place] [phone] Social History Tobacco Use Types Packs/Day Years [...] Description 09/28/2024 9:45 AM EDT Office Visit [facility] [address] [place] [phone] 11/24/2024 2:15 PM EDT Office Visit [facility] [address] [place] [phone] Amy Pickett MD [address] [place] [phone] documented as of this encounter Visit Diagnoses Not on filedocumented in this encounter Additional Health Concerns Assessment Noted Time PHQ-9 Depression Total Score: 10 024 9:41 AM EDT documented as of this encounter Care Teams Clerical Assigner Relationship Specialty Start Date End Date Amy Pickett MD [address] [place] [phone] PCP - General Internal Medicine 04/07/23 documented as of this encounter
--- OUTSIDE RECORDS SUMMARY | 2024-09-07 00:04 | XMS_ITS | Encounter Summary ---
Author Organization [email or web address] Address [address] [facility] 7t [place] [address] Care Team Providers Care Sports Director Name Role Phone Amy Pickett MD Primary Care Pro vider Reason for Visit * Reason Onset Date Comments Durable Medical Equipment 09/06/2024 Boost recert Encounter Details Date Type Department Care Team ([facility] st Contact Info) Description 09/06/2024 Telephone [facility] [address] [place], [place] [phone] Amy Pickett MD [address] [place], [place] [phone] Durable Medical Equipment (Boost recert) Social History Tobacco Use Types Packs/Day Years [...] encounter Miscellaneous Notes * Telephone Encounter - Olamide Chavez - 09/06/2024 12:16 PM EST Confirmation of order for Boost from [employer] received and placed on covering PCP/Sharad desk for signature. documented in this encounter Plan of Treatment Upcoming Encounters Date Type Department Care Team (Late st Contact Info) Description 09/28/2024 9:45 AM EDT Office Visit [facility] [address] [place] [phone] 11/24/2024 2:15 PM EDT Office Visit [facility] [address] [place] [address] [phone] Amy Pickett MD [address] [place] [phone] documented as of this encounter Visit Diagnoses Not on filedocumented in this encounter Additional Health Concerns Assessment Noted Time PHQ-9 Depression Total Score: 10 024 9:41 AM EDT documented as of this encounter Care Teams Sports Director Relationship Specialty Start Date End Date Amy Pickett MD [address] [place] [phone] PCP - General Internal Medicine 04/07/23 documented as of this encounter
--- OUTSIDE RECORDS SUMMARY | 2024-09-07 00:04 | XMS_ITS | Clinical Summary ---
Author Organization [employer] [facility] Address [address] [place] [address] Care Team Providers Care Call Center Rn Name Role Phone Ba Maria MD Primary Care Provider Surgical History Surgery Date Site/Laterality Comments FOOT SURGERY PROCEDURE: [place] UNLISTED PROCEDURE FOOT/TOES; COMMENT: left foot bunion removal LIPOMA RESECTION PROCEDURE: SKIN TISSUE EXCISION(LIPOMA) OTHER SURGICAL HISTORY PROCEDURE: ---- OTHER ----; COMMENT: urethral surgeries done? three times in [facility] for difficulty urinating Medical History Medical History Date Comments Chronic back pain DX:Chronic alonso k pain Asthma DX:Asthma Anxiety DX:Anxiety; COMM ENT: follows at [facility] psychiatry Family History Medical History Relation Name Comments Colon cancer Aunt 1 mother's side- was in her 60s Hypertension Father dm, lipomatosis ,disc operation Breast cancer Maternal Grandmother Asthma Mother dm Relation Name Status Comments Aunt 1 Aunt 2 Father Alive Maternal Grandmother Mother Social History Tobacco Use Types Packs/Day Years Used Date Smoking Tobacco: Every Day Cigarettes Alcohol Use Standard Drinks/Week Comments No 0 (1 standard drink = 0.6 oz pur e alcohol) Sex and Gender Information Value Date Recorded Sex Assigned at Not on file Legal Sex Male 11:13 PM EST Gender Identity Not on file Sexual Orientation Not on file Obstetrics History Plan of Treatment Health Maintenance Due Date Last Done Comments Hepatitis B Vaccines (1 of 3 - 19+ 3-dose series) 12/23/1986 Zoster Vaccines (2 of 2) 07/10/2020 05/15/2020 Pneumococcal Vaccine: 50+ Years (2 of 2 - PCV) 05/15/2021 05/15/2020, 08/10/2019, 01/02/2018, Additional history exists Pneumococcal Vaccine: Pediatrics (0 to 5 Years) and At-Risk Patients (6 to 64 Years) (2 of 2 - PCV) 05/15/2021 05/15/2020, 08/10/2019, 01/02/2018, Additional history exists Cholesterol Screening (Lipid Panel) 06/09/2022 Colorectal Cancer Screening: Colonoscopy 06/09/2022 Depression Screening 06/09/2022 HIV Screening 06/09/2022 Hepatitis C Screening 06/09/2022 Social Influencers of Health Screening 06/09/2022 DTaP,Tdap,and Td Vaccines (2 - Td or Tdap) 10/27/2022 10/27/2012 COVID-19 Vaccine (1 - season) 2024 Influenza Vaccine (#1) 2024 0, 08/10/2019, 03/23/2019, Additional history exists MMR Vaccines Aged Out 02/09/2019 No longer eligi ble based on patient's age to complete this topic HIB Vaccines Aged Out No longer eligi ble based on patient's age to complete this topic HPV Vaccines Aged Out No longer eligi ble based on patient's age to complete this topic Hepatitis A Vaccines Aged Out No long er eligible based on patient's age to complete this topic IPV Vaccines Aged Out No longer eligi ble based on patient's age to complete this topic Meningococcal ACWY Vaccine Aged Out N o longer eligible based on patient's age to complete this topic Meningococcal B Vacine Aged Out No lo nger eligible based on patient's age to complete this topic RSV Immunization Patients Under 20 months Aged Out No longer eligible based on patient's age to complete this topic Varicella Vaccines Aged Out No longer eligible based on patient's age to complete this topic Care Teams Call Center Rn Relationship Specialty Start Date End Date Ba Maria MD PCP - General Internal Medicine 10/26/12
--- OUTSIDE RECORDS SUMMARY | 2024-09-07 00:04 | XMS_ITS | Encounter Summary ---
Author Organization [employer] Address [address] [facility] 7t [place] [address] Care Team Providers Care Cattle Sorter Name Role Phone Amy Pickett MD Primary Care Pro vider Reason for Visit * Reason Comments Med Refill Encounter Details Date Type Department Care Team ([facility] st Contact Info) Description 06/17/2024 Refill [facility] [address] [place], [place] [phone] Amy Pickett MD [address] [place], [place] [phone] Social History Tobacco Use Types Packs/Day Years [...] Description 09/28/2024 9:45 AM EDT Office Visit [facility] [address] [place] [address] 11/24/2024 2:15 PM EDT Office Visit [facility] [address] [place] [address] Amy Pickett MD [address] [place] [address] documented as of this encounter Visit Diagnoses Not on filedocumented in this encounter Additional Health Concerns Assessment Noted Time PHQ-9 Depression Total Score: 10 024 9:41 AM EDT documented as of this encounter Care Teams Cattle Sorter Relationship Specialty Start Date End Date Amy Pickett MD [address] [place] [address] PCP - General Internal Medicine 04/07/23 documented as of this encounter
--- OUTSIDE RECORDS SUMMARY | 2024-09-07 00:05 | XMS_ITS | Encounter Summary ---
Author Organization [email or web address] Address [address] [facility] [address] [place] [address] Care Team Providers Care Comptometer Operator Name Role Phone Amy Pickett MD Primary Care Pro vider Reason for Visit * Reason Onset Date Comments Med Refill 02/11/2024 Encounter Details Date Type Department Care Team ([facility] st Contact Info) Description 02/11/2024 Telephone [facility] [address] [place], [place] [phone] Amy Pickett MD [address] [place], [place] [phone] Med Refill Social History Tobacco Use Types [...] Recorded Patient Health Questionnaire-9 Score 24 10/01/2022 Housing Stability Answer Date Recorded What is [...] encounter Miscellaneous Notes * Telephone Encounter - Gloria Dillon - 02/11/2024 10:11 AM EDT TC from pt requesting medication refill. Medications needing refill : oxyCODONE (Roxicodone) 15 MG immediate release tablet To be sent to: [facility]/pharmacy #[id number] - [address] documented in this encounter Plan of Treatment Upcoming Encounters Date Type Department Care Team (Late st Contact Info) Description 09/28/2024 9:45 AM EDT Office Visit [facility] [address] [place] [address] 11/24/2024 2:15 PM EDT Office Visit [facility] [address] [place] [address] Amy Pickett MD [address] [place] [address] documented as of this encounter Visit Diagnoses Not on filedocumented in this encounter Additional Health Concerns Assessment Noted Time PHQ-9 Depression Total Score: 24 10/01/ 023 10:05 AM EDT documented as of this encounter Care Teams Comptometer Operator Relationship Specialty Start Date End Date Amy Pickett MD [address] [place] [address] PCP - General Internal Medicine 04/07/23 documented as of this encounter
--- OUTSIDE RECORDS SUMMARY | 2024-09-07 00:05 | XMS_ITS | Encounter Summary ---
Author Organization [employer] Address 75 [facility] 7 [place] [address] Care Team Providers Care Fuel Cell Battery Technician Name Role Phone Amy Pickett MD Primary Care Pro vider Reason for Visit * Reason Onset Date Comments Med Refill 08/06/2024 Encounter Details Date Type Department Care Team ([facility] st Contact Info) Description 08/06/2024 Telephone [facility] [address] [place], [place] [phone] Amy Pickett MD [address] [place], [place] [phone] Med Refill Social History Tobacco Use Types [...] encounter Miscellaneous Notes * Telephone Encounter - Radha Buchanan LPN - 08/06/2024 11:25 AM EST Medication pended to provider. * Telephone Encounter - Ernestina Mckenzie - 08/06/2024 11:21 AM EST TC from pt requesting medication refill. Medications needing refill : albuterol (2.5 MG/3ML) 0.083% nebulizer solution To be sent to: [facility]/pharmacy #[id number] - [address] documented in this encounter Plan of Treatment Upcoming Encounters Date Type Department Care Team ([facility] st Contact Info) Description 09/28/2024 9:45 AM EDT Office Visit [facility] [address] [place] [address] 11/24/2024 2:15 PM EDT Office Visit [facility] [address] [place] [address] Amy Pickett MD [address] [place] [address] documented as of this encounter Visit Diagnoses Not on filedocumented in this encounter Additional Health Concerns Assessment Noted Time PHQ-9 Depression Total Score: 10 024 9:41 AM EDT documented as of this encounter Care Teams Fuel Cell Battery Technician Relationship Specialty Start Date End Date Amy Pickett MD [address] [place] [address] PCP - General Internal Medicine 04/07/23 documented as of this encounter
--- OUTSIDE RECORDS SUMMARY | 2024-09-07 00:05 | XMS_ITS | Encounter Summary ---
Author Organization [employer] Address [address] [facility] [address] 7t [place] [address] Care Team Providers Care Tobacco Shaker Name Role Phone Amy Pickett MD Primary Care Pro vider Encounter Details Date Type Department Care Team (Late st Contact Info) Description 08/31/2024 9:45 AM EST Office Visit [facility] 230 [facility] [place] [address] Holly Wills, TOBACCO SPRAYER [address] [place] [address] Cervical spondylosis without myelopathy (Primary Dx); 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; Chronic obstructive pulmonary disease, unspecified COPD type (CMS/HCC) Social History Tobacco Use Types Packs/Day Years [...] AM EDT documented as of this encounter Progress Notes * Holly Wills, KENDRA - 08/31/2024 9:45 AM EST Subjective: Zain Lazcano is a 58 y.o. male w/ PMH depression, anxiety, panic attacks, HLD, HTN, COPD, gout,rheumatoid arthritis, asthma, STEPHON, and insomnia who presents to the office for - Chronic Pain [facility] Group visits. Initial Group visit: 09/16/23 Last PCP visit: Dr. Rincon, 05/14/2024 Group Confidentiality signed: 09/16/23 Group Topic: Nick/Teresa Acute concerns: COPD: reports out of combivent inhaler. Reviewed last Pulm consult note ([facility] [place] Maldonado) from 07/12/24. COPD plan: stop Trelegy, continue combivent. Med list updated to reflect latest consult note. Combivent sent to pharmacy. Chronic Pain History: Associated Diagnosis: R shoulder pain, cervical spondylosis Relevant Imaging: C spine MRI, MRI brain for R retrocochlear mass Current pharm tx: oxycodone 15mg every 6 hours as needed, Xanax 1mg TID, cyclobenzaprine Medication: States taking medication as prescribed. Specialists: Saw RUBEN Padilla at [facility] 11/17/23 for lower back radiculopathy Scheduled to see NSBruce Prieto at [facility] to discuss C spine fracture seen at [facility] 10/2023 CT/CT cervical spine wo IV con IMPRESSION: Acute appearing right C7 facet and pedicle fractures. C6-C7 disc herniation. Consider MRI follow-up, especially if there is clinical deficit/myelopathic symptoms. No acute intracranial pathology. Functional Goals: be able to get out of bed and be more active Other substance use: Tobacco: everyday, yes Marijuana: yes, medical marijuana card Alcohol: denies Illicit substances: denies Review of Systems Constitutional: Negative for chills and fever. Respiratory: Negative for wheezing. Cardiovascular: Negative for chest pain and palpitations. Gastrointestinal: Negative for diarrhea and vomiting. Musculoskeletal: Positive for arthralgias. Physical Exam Constitutional: Appearance: Normal appearance. Pulmonary: Effort: Pulmonary effort is normal. Neurological: Mental Status: He is alert and oriented to person, place, and time. Psychiatric: Mood and Affect: Mood normal. Behavior: Behavior normal. Problem List Items Addressed This Visit Respiratory Chronic obstructive pulmonary disease, unspecified COPD type (CMS/HCC) Overview Following with [facility] pulmonology-Dr. Maldonado Continue with Combivent inhaler Musculoskeletal Cervical spondylosis without myelopathy - Primary Current Assessment & Plan -Good engagement and participation with Group Medical Visit model -Encouraged multifactorial approach to pain control including pharm and non- pharm modalities -UTOX and Pill count as expected Other 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 Overview Dx: chronic neck, low back pain, LE claudication Rx: Oxycodone 15mg IR q 6 hours Last HOISTING MACHINE OPERATOR agreement: 10/14/23 Additional considerations: Alprazolam 1mg for anxiety Timeline: previous positive utox for cocaine 11/2023 Relevant Orders POCT ROBIN-14 Urine Drug Screen (Completed) Follow up: 1-2 months for Chronic Pain Group Visits. Follow up as scheduled with PCP, sooner as needed. * 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 RN - 08/31/2024 9:45 AM EST .HOISTING MACHINE OPERATOR slip tender: PDMP reviewed today. Last fill date: 08/06/24 (Oxycodone 15mg qid PRN) count was (12), anticipated (10) to be remaining. BZO from an outside provider. Utox performed, positive for OXY, THC, BZO, as expected. documented in this encounter Miscellaneous Notes * Assessment & Plan Note - KENDRA Singh - 09/05/2024 3:11 PM ESTAssociated Problem(s): Cervical spondylosis without myelopathy -Good engagement and participation with Group Medical Visit model -Encouraged multifactorial approach to pain control including pharm and non- pharm modalities -UTOX and Pill count as expected documented in this encounter Plan of Treatment Upcoming Encounters Date Type Department Care Team (Late st Contact Info) Description 09/28/2024 9:45 AM EDT Office Visit [address] [phone] 11/24/2024 2:15 PM EDT Office Visit [address] [address] Amy Pickett MD [address] [place] [address] documented as of this encounter Procedures Procedure Name Priority Date/Time Associated Diagnosis Comments POCT ROBIN-14 URINE DRUG SCREEN Routine 08/31/2024 1:11 PM EST 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 documented in this encounter Results * POCT ROBIN-14 Urine Drug Screen (08/31/2024 1:11 PM EST) THC Positive Benzodiazepines Screen, Urine Positive Oxycodone Screen, Urine Positive Urine Urine specimen obtained by clean catch procedure / Unknown 08/31/2024 1:11 PM EST Odilia Chandler, RN - 08/31/2024 1:11 PM EST .UTOX cup Lot#[id number] Exp. 02/23/26 Internal Pass Control Holly Wills TOBACCO SPRAYER POINT OF CARE TEST ENTER/EDIT ORDERABLES Edited Result - Final documented in this encounter Visit Diagnoses Diagnosis Cervical spondylosis without myelopathy- Primary 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 Chronic obstructive pulmonary disease, unspecified COPD type (CMS/[facility]) documented in this encounter Additional Health Concerns Assessment Noted Time PHQ-9 Depression Total Score: 10 024 9:41 AM EDT documented as of this encounter Care Teams Tobacco Shaker Relationship Specialty Start Date End Date Amy Pickett MD [address] [place] [address] PCP - General Internal Medicine 04/07/23 documented as of this encounter
--- OUTSIDE RECORDS SUMMARY | 2024-09-07 00:05 | XMS_ITS | Encounter Summary ---
Author Organization [employer] Address [address] [facility] [address] 7t [place] [address] Care Team Providers Care Repairer Evaporator Name Role Phone Amy Pickett MD Primary Care Pro vider Encounter Details Date Type Department Care Team (Latest Contact Info) Description 08/31/2024 Travel Social History Tobacco Use Types Packs/Day Years [...] Description 09/28/2024 9:45 AM EDT Office Visit [facility] [address] [place] [address] 11/24/2024 2:15 PM EDT Office Visit [facility] [address] [place] [address] Amy Pickett MD [address] [place] [address] documented as of this encounter Visit Diagnoses Not on filedocumented in this encounter Additional Health Concerns Assessment Noted Time PHQ-9 Depression Total Score: 10 024 9:41 AM EDT documented as of this encounter Care Teams Repairer Evaporator Relationship Specialty Start Date End Date Amy Pickett MD [address] [place] [address] PCP - General Internal Medicine 04/07/23 documented as of this encounter
--- OUTSIDE RECORDS SUMMARY | 2024-09-07 00:05 | XMS_ITS | Encounter Summary ---
Author Organization [employer] Address 75 [facility] 7 [place] [address] Care Team Providers Care Gas Worker Name Role Phone Elise Glover Primary Care Provider +1- [phone] Amy Pickett MD Primary Care Pro vider Reason for Visit * Reason Onset Date Comments triage 08/22/2022 Encounter Details Date Type Department Care Team (Late st Contact Info) Description 08/22/2022 Telephone [facility] [address] [place] [address] Elise Glover FNP [address] [place] [address] Dept [place] [address] triage Social History Tobacco Use Types Packs/Day Years Used Date Smoking Tobacco: Never Assessed Sex and Gender Information Value Date Recorded Sex Assigned at Male 05/06/2022 10:21 AM EDT Legal Sex Male 10:21 AM EDT Gender Identity Male 05/06/2022 10:21 AM EDT Sexual Orientation Straight 05/06/2022 10 :21 AM EDT documented as of this encounter Miscellaneous Notes * Telephone Encounter - Dorian Goetz - 08/22/2022 12:38 PM EST Symptom: Headache Outcome: Schedule an urgent appointment (within 4 hours) or talk to a nurse or provider soon Reason: Getting worse The caller accepted this outcome documented in this encounter Plan of Treatment Upcoming Encounters Date Type Department Care Team (Late st Contact Info) Description 09/28/2024 9:45 AM EDT Office Visit [address] [address] 11/24/2024 2:15 PM EDT Office Visit [address] [address] Amy Pickett MD [address] [place] [address] documented as of this encounter Visit Diagnoses Not on filedocumented in this encounter Care Teams Gas Worker Relationship Specialty Start Date End Date Elise Glover FNP PCP - General Family Medicine 07/09/22 04/06/23 Amy Pickett MD [address] [place] [address] PCP - General Internal Medicine 04/07/23 documented as of this encounter
--- OUTSIDE RECORDS SUMMARY | 2024-09-07 00:05 | XMS_ITS | Encounter Summary ---
Author Organization [employer] Address 75 [facility] 7t [place] [address] Care Team Providers Care Sash Assembler Name Role Phone Elise Glover Primary Care Provider +1- [phone] Amy Pickett MD Primary Care Pro vider Reason for Visit * Reason Onset Date Comments Durable Medical Equipment 10/07/2022 Encounter Details Date Type Department Care Team (Late st Contact Info) Description 10/07/2022 Telephone [facility] [address] [place] [address] Elise Glover FNP [address] [place] [address] Dept [place] [address] Durable Medical Equipment Social History Tobacco Use Types Packs/Day Years Used Date Smoking Tobacco: Never Assessed Depression Answer Date Recorded Patient Health Questionnaire-9 Score 24 10/01/2022 Depression Answer Date Recorded Patient Health Questionnaire-2 Score 6 10/01/2022 Sex and Gender Information Value Date Recorded Sex Assigned at Male 05/06/2022 10:21 AM EDT Legal Sex Male 10:21 AM EDT Gender Identity Male 05/06/2022 10:21 AM EDT Sexual Orientation Straight 05/06/2022 10 :21 AM EDT COVID-19 Exposure Response Date Recorded In the last 10 days, have yo u been in contact with someone who was confirmed or suspected to have Coronavirus/COVID-19? No / Unsure 10/01/2022 9:29 AM EDT documented as of this encounter Miscellaneous Notes * Telephone Encounter - Katie Hansen - 10/07/2022 12:28 PM EDT Scripts generated for providers signature * Telephone Encounter - Shereen Marquez - 10/07/2022 11:47 AM EDT Tc from Anabelle with N requesting a script for Shower Chair, Had held shower held, Non-slip Mat, Med Reminder, and a Toilet riser. If any questions please contact Anabelle at [phone] documented in this encounter Plan of Treatment Upcoming Encounters Date Type Department Care Team (Late st Contact Info) Description 09/28/2024 9:45 AM EDT Office Visit [address] [address] 11/24/2024 2:15 PM EDT Office Visit [address] [address] Amy Pickett MD [address] [place] [address] documented as of this encounter Visit Diagnoses Not on filedocumented in this encounter Additional Health Concerns Assessment Noted Time PHQ-9 Depression Total Score: 24 10/01/ 023 10:05 AM EDT documented as of this encounter Care Teams Sash Assembler Relationship Specialty Start Date End Date Elise Glover FNP PCP - General Family Medicine 07/09/22 04/06/23 Amy Pickett MD [address] [place] [address] PCP - General Internal Medicine 04/07/23 documented as of this encounter
--- OUTSIDE RECORDS SUMMARY | 2024-09-07 00:05 | XMS_ITS | Encounter Summary ---
Author Organization [employer] Address 75 [facility] 7 [place] [address] Care Team Providers Care Integration Specialist Name Role Phone Elise Glover Primary Care Provider +1- [phone] Amy Pickett MD Primary Care Pro vider Encounter Details Date Type Department Care Team (Late st Contact Info) Description 01/14/2023 Orders Only [address] [address] Elise Glover FNP [address] [place] [address] [place] [address] Social History Tobacco Use Types Packs/Day Years [...] suspected to have Coronavirus/COVID-19? No / Unsure 01/02/2023 10:54 AM EDT documented as of this encounter Plan of Treatment Upcoming Encounters Date Type Department Care Team (Late st Contact Info) Description 09/28/2024 9:45 AM EDT Office Visit [facility]INE [address] [place] [address] 11/24/2024 2:15 PM EDT Office Visit [facility] [address] [place], [place] [phone] Amy Pickett MD [address] [place] [address] documented as of this encounter Visit Diagnoses Not on filedocumented in this encounter Additional Health Concerns Assessment Noted Time PHQ-9 Depression Total Score: 24 023 10:05 AM EDT documented as of this encounter Care Teams Integration Specialist Relationship Specialty Start Date End Date Elise Glover FNP PCP - General Family Medicine 07/09/22 04/06/23 Amy Pickett MD [address] [place] [address] PCP - General Internal Medicine 04/07/23 documented as of this encounter
--- OUTSIDE RECORDS SUMMARY | 2024-09-07 00:05 | XMS_ITS | Encounter Summary ---
Author Organization [employer] Address [address] [facility] 7t [place] [address] Care Team Providers Care Skid Wrapper Name Role Phone Amy Pickett MD Primary Care Pro vider Reason for Visit * Reason Comments Med Refill Encounter Details Date Type Department Care Team ([facility] st Contact Info) Description 08/15/2024 Refill [facility] [address] [place], [place] [phone] Amy Pickett MD [address] [place], [place] [phone] Social History Tobacco Use Types Packs/Day Years [...] Description 09/28/2024 9:45 AM EDT Office Visit [facility] [address] [place] [address] 11/24/2024 2:15 PM EDT Office Visit [facility] [address] [place] [address] Amy Pickett MD [address] [place] [address] documented as of this encounter Visit Diagnoses Not on filedocumented in this encounter Additional Health Concerns Assessment Noted Time PHQ-9 Depression Total Score: 10 024 9:41 AM EDT documented as of this encounter Care Teams Skid Wrapper Relationship Specialty Start Date End Date Amy Pickett MD [address] [place] [address] PCP - General Internal Medicine 04/07/23 documented as of this encounter
--- OUTSIDE RECORDS SUMMARY | 2024-09-07 00:05 | XMS_ITS | Encounter Summary ---
Author Organization [employer] Address [address] [facility] [address] [facility] [address] 7[address] [place] [address] Care Team Providers Care Fire Chief Deputy Name Role Phone Amy Pickett MD Primary Care Pro vider Reason for Visit * Reason Onset Date Comments Rebekah recall 08/25/2024 Encounter Details Date Type Department Care Team (Late st Contact Info) Description 08/25/2024 Telephone [facility] MEDICINE [address] [place] [address] Shu aMrtínez [place] October recall Social History Tobacco Use Types Packs/Day Years [...] encounter Miscellaneous Notes * Telephone Encounter - Shu Martínez [place] - 08/25/2024 9:01 AM EST Telephone call to patient to schedule a recall appointment. No answer, Left voicemail to return call to clinic.. Recall letter sent. Visit type: Office visit extended Appointment notes: Chronic conditions Month due: November With: Sergey Please schedule appointment above if patient returns call documented in this encounter Plan of Treatment Upcoming Encounters Date Type Department Care Team ([facility] st Contact Info) Description 09/28/2024 9:45 AM EDT Office Visit [facility] MEDICINE [address] [place] [phone] 11/24/2024 2:15 PM EDT Office Visit [facility] MEDICINE [address] [place] [address] Amy Pickett MD [address] [place] [address] documented as of this encounter Visit Diagnoses Not on filedocumented in this encounter Additional Health Concerns Assessment Noted Time PHQ-9 Depression Total Score: 10 024 9:41 AM EDT documented as of this encounter Care Teams Fire Chief Deputy Relationship Specialty Start Date End Date Amy Pickett MD [address] [place] [phone] PCP - General Internal Medicine 04/07/23 documented as of this encounter
--- OUTSIDE RECORDS SUMMARY | 2024-09-07 00:05 | XMS_ITS | Encounter Summary ---
Author Organization [employer] Address [address] [facility] 7 [place] [address] Care Team Providers Care Investigative Shopper Name Role Phone Amy Pickett MD Primary Care Pro vider Reason for Visit * Reason Onset Date Comments Appointment Request 09/02/2023 Encounter Details Date Type Department Care Team ([facility] st Contact Info) Description 09/02/2023 Telephone [facility] MEDICINE [address] [place], [place] [phone] Amy Pickett MD [address] [place], [place] [phone] Appointment Request Social History Tobacco Use Types Packs/Day Years [...] encounter Miscellaneous Notes * Telephone Encounter - Mary Winston - 09/02/2023 9:43 AM EST Tc from pt requesting a transfer patient appointment. Microbiology Technologist does not see any availability. Pt states he needs appointment as soon as possible due to controlled medication. States needs to be seen bya new provider to continue medication. Please contact pt at [phone] documented in this encounter Plan of Treatment Upcoming Encounters Date Type Department Care Team (Late st Contact Info) Description 09/28/2024 9:45 AM EDT Office Visit [facility] MEDICINE [address] [place] [address] 11/24/2024 2:15 PM EDT Office Visit [facility] MEDICINE [address] [place] [address] Amy Pickett MD [address] [place] [address] documented as of this encounter Visit Diagnoses Not on filedocumented in this encounter Additional Health Concerns Assessment Noted Time PHQ-9 Depression Total Score: 24 023 10:05 AM EDT documented as of this encounter Care Teams Investigative Shopper Relationship Specialty Start Date End Date Amy Pickett MD [address] [place] [phone] PCP - General Internal Medicine 04/07/23 documented as of this encounter
== END 2024-09-07 00:06 | disposition left against medical advice (07) ==
PROVIDERS: Physician Assistant Medical; Emergency Provider Emergency Medicine; PCP Student in an Organized Health Care Education/Training Program
DX: R42 Dizziness and giddiness (principal); R53.1 Weakness; F17.210 Nicotine dependence, cigarettes, uncomplicated; Z79.899 Other long term (current) drug therapy; Z51.81 Encounter for therapeutic drug level monitoring; Z03.818 Encounter for observation for suspected exposure to other biological agents ruled out
CPT/HCPCS: 0241U; 71046; 80053; 81003; 83735; 84484; 85025; 85610; 85730; 93005; 99283

== ENCOUNTER → 2024-09-06 11:57 | Outpatient (BNV) | payer OTHER, SELFPAY | PROVIDERS: PCP Student in an Organized Health Care Education/Training Program; Visit Provider Radiology Diagnostic Radiology | DX: R53.1 Weakness (principal); R42 Dizziness and giddiness; F17.210 Nicotine dependence, cigarettes, uncomplicated | CPT/HCPCS: 71046 ==

== ENCOUNTER → 2024-09-06 11:57 | Outpatient (BNV) | payer OTHER, SELFPAY | PROVIDERS: PCP Student in an Organized Health Care Education/Training Program; Visit Provider Internal Medicine Cardiovascular Disease | DX: R42 Dizziness and giddiness (principal); R53.1 Weakness | CPT/HCPCS: 93010 ==

== ENCOUNTER 2024-09-22 18:20 | Outpatient (REF) | payer OTHER, SELFPAY ==
[2024-09-23 15:01] LABS: CT PCR NOT DETECTED (Not Detect.); NG PCR NOT DETECTED (Not Detect.)
== END 2024-09-22 18:21 | disposition home or self-care (01) ==
LOC: HO.LNP 18:20
PROVIDERS: Visit Provider Internal Medicine
DX: Z00.00 Encounter for general adult medical examination without abnormal findings (principal); Z20.2 Contact with and (suspected) exposure to infections with a predominantly sexual mode of transmission
CPT/HCPCS: 87491; 87591

== ENCOUNTER 2024-09-29 14:52 | Outpatient (AMB) | payer OTHER, SELFPAY ==
--- NOTE | 2024-09-29 14:53 | MHC.OFFVIS ---
Vital Signs 09/29/24 14:54 Height 5 ft 4 in Weight 167 lb 8.821 oz BMI 28.8 BP 132/78 Blood Pressure Location Lt brachial Position Sitting Pulse 100 Pulse Source Monitor Intake Visit Reasons: Overdue F/U/ CP Allergies cat dander [CATS] Allergy (Unknown, Verified 09/06/24 12:00) UNKNOWN dog dander [DOGS] Allergy (Unknown, Verified 09/06/24 12:00) UNKNOWN pollen extracts [POLLEN] Allergy (Unknown, Verified 09/06/24 12:00) UNKNOWN tree and shrub pollen Allergy (Verified 09/06/24 12:00) sneeze ibuprofen Adverse Reaction (Verified 09/06/24 12:00) causes stomach to bleed Medication List - Last Reconciled 09/29/24 by Rayshawn Shaw MD albuterol sulfate 1 vial inhalation QID alprazolam 1 mg PO BID PRN atorvastatin 20 mg PO DAILY cholecalciferol (vitamin D3) 50 mcg PO DAILY cyclobenzaprine 5 mg PO BEDTIME PRN dexlansoprazole 60 mg PO DAILY divalproex 1,000 mg PO BID escitalopram oxalate 20 mg PO QAM famotidine 40 mg PO BEDTIME fluoxetine 20 mg PO DAILY fluticasone propionate 220 mcg/actuation (Flovent HFA) 1 puff inhalation BID lltpzmuqbfj-hwgynmpya-srtobrki 200-62.5-25 mcg (Trelegy Ellipta) 1 inh inhalation DAILY 30 days ipratropium-albuterol 20-100 mcg/actuation (Combivent Respimat) 1 puff inhalation QID 30 days lidocaine 5% (Lidoderm) 1 patch topical DAILY wqszem-xlcckwke-rgbppyk 24,000-76,000 -120,000 unit (Creon) 1 cap PO QID 30 days lisinopril 10 mg PO BID magnesium oxide 400 mg PO DAILY multivitamin (Daily-Petra tablet) 1 tab PO DAILY nebulizers As directed ondansetron HCl 4 mg PO BID PRN oxycodone 15 mg PO Q6H sumatriptan succinate (Imitrex) 100 mg orally; tamsulosin 0.4 mg PO DAILY 30 days varenicline tartrate 0.5 mg PO DIRECTED HPI Comments Details: Zain returns for follow-up after couple of years. In the past, he was seen regarding chest pains. It was nonspecific and was happening with and without exertion per prior notes. He states that he is still getting chest pains but very randomly. Lot of times this happens when he is sitting or lying down. He tries to apparently cut up and put a bed sheet or something along those lines on his chest and hug and the pain gets better. Not very typical for angina. No documented coronary disease or myocardial infarction in the past. Chronic smoker. On polypharmacy. Questionable compliance. [facility] Medical History (Updated 09/09/24 @ 00:02 by Ivy Sabillon) Chest pain Nicotine dependence, cigarettes, uncomplicated Nausea and vomiting Dyspnea Photophobia Headache Syncope Dysphagia Seizure Lipoma of back STEPHON (obstructive sleep apnea) COPD (chronic obstructive pulmonary disease) Post herpetic neuralgia Multiple lipomas Osteoarthritis Gout History of peptic ulcer disease Hx of irritable bowel syndrome Chronic back pain Hx of insomnia History of panic attacks History of anxiety History of depression Asthma High cholesterol Hypertension Urinary retention Enlarged prostate Arthritis Slow urinary stream Marijuana use Alcohol abuse H/O ulcer disease Left flank pain Trochanteric bursitis, left hip Epidermal cyst Abdominal wall bulge Esophageal dysphagia Esophageal spasm Short frenulum of penis Balanitis Elevated blood pressure reading in office with diagnosis of hypertension Thalamic pain syndrome Abnormal loss of weight Painful orthopaedic hardware Pain in unspecified toe(s) Incisional pain Surgical History (Updated 03/11/24 @ 11:02 by Masha Gaines PA-C) S/P placement of nerve stimulator H/O neck surgery Hx of arthroscopy of left knee H/O breast surgery S/P excision of lipoma History of bunionectomy History of cystoscopy History of colonoscopy History of esophagogastroduodenoscopy (EGD) Family History Family/Other Cancer Diabetes AIDS Brother Diabetes Myocardial infarction Father Enlarged prostate Mother Diabetes Asthma Social History Are you a primary clinical care leader to a significant other at home: No Do you presently have visiting nurse or other home services: No Alcohol intake: never Patient Tobacco Use Status: Current everyday Tobacco user Cigarettes Per Day: 4 Years Smoked: (onset 16yo, 1ppd x 42yrs, now 1/2ppd - 40pyh) Substance Use Type: Marijuana service: No Current occupational status: unemployed Review of Systems Const Reports excessive sweating and Denies weakness ENT Denies dizziness Card Reports chest pain, Reports chest pain at rest, Denies chest pain with activity, Denies syncope, Denies rapid heart rate, Denies pedal edema, Denies edema, Denies leg edema, Denies lightheadedness, Denies palpitations, Denies dyspnea, Denies dyspnea on exertion and Reports orthopnea Resp Denies cough, Denies dyspnea and Denies dyspnea on exertion GI Denies hematochezia and Denies change in stool character Musc Denies abnormal gait, Denies muscle cramps, Denies muscle weakness, Denies numbness, Denies radiating pain into limb and Denies tingling Neuro Denies abnormal gait, Denies dizziness, Denies syncope, Denies numbness, Denies tingling and Denies weakness Endo Reports excessive sweating and Denies palpitations Physical Exam Vital Signs: Last Vital Signs Pulse 100 09/29/24 14:54 BP 132/78 09/29/24 14:54 BMI result Body Mass Index 28.8 Const General: comfortable and no acute distress Orientation/consciousness: patient oriented x3 HEENT Other: Unremarkable Head: Yes normal to inspection Neck Neck: Yes normal visual inspection Chest Chest palpation & inspection: normal inspection of the chest Resp Auscultation: clear to auscultation bilaterally Cardio Palpation: normal PMI Heart sounds: S1 normal heart sound present, S2 normal heart sound present, no gallops, no murmurs and no rubs GI Palpation (GI): Soft to palpation Back/Spine/Pelvis Other: unremarkable Skin General skin exam: no rashes or lesions noted Neuro General: patient oriented x3 Extrem General: Yes normal to inspection Psych Mental Status: mental status grossly normal Office Procedures EKG Details: EKG with underlying sinus rhythm at 100/Min; no significant ST-T changes; [place] [address]-[id number], Complete Assessment & Plan Assessment & Plan (1) Chest pain: Code(s): R07.9 - Chest pain, unspecified Category: Medical Plan Cardiac data reviewed. EKG without any ischemic findings. Coronary CTA 2022-no significant stenosis. 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 Minimal stenosis in the mid circumflex. Mild stenosis in the left PDA. Available high sensitivity troponin levels are within normal range. Overall, nonexertional chest pains with no significant findings on the coronary CTA to explain cardiac etiology. Could be related to smoking versus musculoskeletal. For completion, we will also get an echocardiogram. If this is also unremarkable and could then, no specific cardiac workup. Mainly risk factor modification including smoking cessation and controlling blood pressure/lipids. Orders: Orders CA echo transthoracic complete Today R07.9 - Chest pain, unspecified Coding Level of Care Code Est Pt Level 3 (03282) Diagnoses Chest pain R07.9 CPT Codes EKG - CPT: 78647-[id number], Complete ([id number])
[2024-09-29 14:54] VITALS: BP 132/78; PULSE 100; BMI 28.8
--- OUTSIDE RECORDS SUMMARY | 2024-09-29 17:48 | XMS_ITS | Clinical Summary ---
Author Organization [facility] Facility Address [address] [place] [address] Care Team Providers Care Toll Repairer Central Office Name Role Phone Donna Harmon MD Primary [...] Vaccine (#1) 2024 Insurance [employer] Care Teams Toll Repairer Central Office Relationship Specialty Start Date End Date Donna Harmon MD PCP - General 05/11/19
--- OUTSIDE RECORDS SUMMARY | 2024-09-29 17:48 | XMS_ITS | Encounter Summary ---
Author Organization [employer] Address [address] [facility] 7 [place] [address] Care Team Providers Care Monument Stonecutter Name Role Phone Amy Pickett MD Primary Care Pro vider Reason for Visit * Reason Onset Date Comments Med Refill 09/01/2024 Encounter Details Date Type Department Care Team (Late st Contact Info) Description 09/01/2024 Refill [facility] MEDICINE [address] [place], [place] [phone] Amy Pickett MD [address] [place], [place] [phone] Moderate persistent asthma without complication Social History [...] 20-100 MCG/ACT inhaler To be sent to: [facility]/pharmacy #[id number] - [address] documented in this encounter Plan of Treatment Upcoming Encounters Date Type Department Care Team (Late st Contact Info) Description 10/26/2024 9:45 AM EDT Office Visit [facility] MEDICINE [address] [place] [phone] 11/24/2024 2:15 PM EDT Office Visit [facility] MEDICINE [address] [place] [address] Amy Pickett MD [address] [place] [address] documented as of this encounter Visit Diagnoses Diagnosis Moderate persistent asthma without complication documented in this encounter Additional Health Concerns Assessment Noted Time PHQ-9 Depression Total Score: 10 024 9:41 AM EDT documented as of this encounter Care Teams Monument Stonecutter Relationship Specialty Start Date End Date Amy Pickett MD [address] [place] [phone] PCP - General Internal Medicine 04/07/23 documented as of this encounter
--- OUTSIDE RECORDS SUMMARY | 2024-09-29 17:48 | XMS_ITS | Encounter Summary ---
Author Organization [employer] Address [address] [facility] 7t [place] [address] Care Team Providers Care Hvac Service Tech Name Role Phone Amy Pickett MD Primary Care Pro vider Encounter Details Date Type Department Care Team (Late st Contact Info) Description 09/01/2024 Telephone [facility] MEDICINE [address] [place], [place] [phone] Amy Pickett MD [address] [place], [place] [phone] Social History Tobacco Use Types Packs/Day Years [...] Description 10/26/2024 9:45 AM EDT Office Visit [facility] MEDICINE [address] [place] [address] 11/24/2024 2:15 PM EDT Office Visit [facility] MEDICINE [address] [place] [address] Amy Pickett MD [address] [place] [address] documented as of this encounter Visit Diagnoses Not on filedocumented in this encounter Additional Health Concerns Assessment Noted Time PHQ-9 Depression Total Score: 10 024 9:41 AM EDT documented as of this encounter Care Teams Hvac Service Tech Relationship Specialty Start Date End Date Amy Pickett MD [address] [place] [phone] PCP - General Internal Medicine 04/07/23 documented as of this encounter
--- OUTSIDE RECORDS SUMMARY | 2024-09-29 17:48 | XMS_ITS | Encounter Summary ---
Author Organization [employer] Address [address] [facility] [address] 7t [place] [address] Care Team Providers Care Brim Pouncing Machine Operator Name Role Phone Amy Pickett MD Primary Care Pro vider Encounter Details Date Type Department Care Team (Late st Contact Info) Description 08/31/2024 9:45 AM EST Office Visit [facility] MEDICINE [address] [place] [address] Holly Wills, STADIUM MANAGER [address] [place] [address] Cervical spondylosis without myelopathy (Primary Dx); residential 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; Chronic obstructive [...] this encounter Progress Notes * Holly Wills, STADIUM MANAGER - 08/31/2024 9:45 AM EST Subjective: Zain [...] combivent inhaler. Reviewed last Pulm consult note ([facility] [place]. Maldonado) from 07/12/24. COPD plan: stop [...] as prescribed. Specialists: Saw RUBEN Padilla at [facility] 11/17/23 for lower back radiculopathy Scheduled to see NSBruce Prieto at [facility] to discuss C spine fracture seen at [facility] 10/2023 CT/CT cervical spine wo IV con [...] unspecified COPD type (CMS/HCC) Overview Following with [facility] pulmonology-Dr. Maldonado Continue with Combivent inhaler Musculoskeletal Cervical spondylosis without myelopathy - Primary Current Assessment & Plan -Good engagement and participation with Group Medical Visit model -Encouraged multifactorial approach to pain control including pharm and non- pharm modalities -UTOX and Pill count as expected Other terminal worker 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 Overview Dx: chronic neck, low back pain, LE claudication Rx: Oxycodone 15mg IR q 6 hours Last LEASE OUT MAN agreement: 10/14/23 Additional considerations: Alprazolam 1mg for anxiety Timeline: previous positive utox for cocaine 11/2023 Relevant Orders POCT ROBIN-14 Urine Drug Screen (Completed) Follow up: 1-2 months for Chronic Pain Group Visits. Follow up as scheduled with PCP, sooner as needed. * 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 RN - 08/31/2024 9:45 AM EST .LEASE OUT MAN cosmetics counter manager: PDMP reviewed today. Last fill date: 08/06/24 [...] Description 10/26/2024 9:45 AM EDT Office Visit [address] [phone] 11/24/2024 2:15 PM EDT Office Visit [address] [address] Amy Pickett MD [address] [place] [address] documented as of this encounter Procedures Procedure Name Priority Date/Time Associated Diagnosis Comments POCT ROBIN-14 URINE DRUG SCREEN Routine 08/31/2024 1:11 PM EST residential 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 documented in this encounter Results * POCT ROBIN-14 Urine Drug Screen (08/31/2024 1:11 PM EST) THC Positive Benzodiazepines Screen, Urine Positive Oxycodone Screen, Urine Positive Urine Urine specimen obtained by clean catch procedure / Unknown 08/31/2024 1:11 PM EST Odilia Chandler, RN - 08/31/2024 1:11 PM EST .UTOX cup Lot#[id number] Exp. 02/23/26 Internal Pass Control Holly Johann STADIUM MANAGER POINT OF CARE TEST ENTER/EDIT ORDERABLES Edited Result - Final documented in this encounter Visit Diagnoses Diagnosis Cervical spondylosis without myelopathy- Primary residential 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 Chronic obstructive pulmonary disease, unspecified COPD type (CMS/[facility]) documented in this encounter Additional Health Concerns Assessment Noted Time PHQ-9 Depression Total Score: 10 024 9:41 AM EDT documented as of this encounter Care Teams Brim Pouncing Machine Operator Relationship Specialty Start Date End Date Amy Pickett MD [address] [place] [phone] PCP - General Internal Medicine 04/07/23 documented as of this encounter
--- OUTSIDE RECORDS SUMMARY | 2024-09-29 17:48 | XMS_ITS | Encounter Summary ---
Author Organization [employer] Address [address] [facility] 7 [place] [address] Care Team Providers Care Bread Wrapper Operator Name Role Phone Elise Gloevr Primary Care Provider [phone] Amy Pickett MD Primary Care Pro vider Reason for Visit * Reason Onset Date Comments Durable Medical Equipment 10/07/2022 Encounter Details Date Type Department Care Team (Late st Contact Info) Description 10/07/2022 Telephone [facility] MEDICINE [address] [place] [address] Elise Glover FNP [address] [place] [address] [place] [address] Durable Medical Equipment Social History Tobacco Use [...] for providers signature * Telephone Encounter - Sheeren Marquez - 10/07/2022 11:47 AM EDT Tc from Anabelle with N requesting a script for Shower Chair, Had held shower held, Non-slip Mat, Med Reminder, and a Toilet riser. If any questions please contact Anabelle at [phone] documented in this encounter Plan of Treatment Upcoming Encounters Date Type Department Care Team (Late st Contact Info) Description 10/26/2024 9:45 AM EDT Office Visit [address] [address] 11/24/2024 2:15 PM EDT Office Visit [address] [address] Amy Pickett MD [address] [place] [address] documented as of this encounter Visit Diagnoses Not on filedocumented in this encounter Additional Health Concerns Assessment Noted Time PHQ-9 Depression Total Score: 24 10/01/ 023 10:05 AM EDT documented as of this encounter Care Teams Bread Wrapper Operator Relationship Specialty Start Date End Date Elise Glover FNP PCP - General Family Medicine 07/09/22 04/06/23 Amy Pickett MD [address] [place] [phone] PCP - General Internal Medicine 04/07/23 documented as of this encounter
--- OUTSIDE RECORDS SUMMARY | 2024-09-29 17:48 | XMS_ITS | Encounter Summary ---
Author Organization [employer] Address [address] [facility] 7 [place] [address] Care Team Providers Care Senior Director Marketing Name Role Phone Amy Pickett MD Primary Care Pro vider Reason for Visit * Reason Onset Date Comments Nurse Triage 09/22/2024 Encounter Details Date Type Department Care Team ([facility] st Contact Info) Description 09/22/2024 Telephone [facility] MEDICINE [address] [place], [place] [phone] Amy Pickett MD [address] [place], [place] [phone] Nurse Triage Social History Tobacco Use Types Packs/Day Years [...] encounter Miscellaneous Notes * Telephone Encounter - Miranda Mon LPN - 09/22/2024 3:36 PM EDT Triage call returned to patient who reports worsening left hip pain. Pain in left buttock that travels into left calf. Patient reports that he has had injections in the past for various pain concernsbut not recently. Has not reached out to [facility] at time of call. Patient reports climbing stairs difficult is taking previously prescribed Oxycodone and it is not touching this pain no falls or accidents reported. No loss of bowel or bladder. Patient goes on to report concerns of STD exposure as EX partner told him to enjoy your disease patient reports concern with new onset oftip of penis burning. Burning sensation is constant and not just with voiding. No penile discharge but notes some discoloration when wiping head of penis. Disposition reviewed and patient in agreement with plan. No PCP or Team appts. Available at time of call. [facility] Walk In Center hours and availability provided for patient evaluation. Triage nurse informed the patient may have a wait of 1-2 hours b ecause Walk In Clinic may have delays due to patient volume or symptom acuity. Insurance verified as active. Multiple (2) protocols were used on this call. Disposition for Call: Go to Office or Video Visit Now Protocol Used: Hip Pain (Adult) Protocol-Based Disposition: Go to Office or Video Visit Now Positive Triage Question: * Severe pain (e.g., excruciating, unable to do any normal activities) * All higher-acuity triage questions were negative Care Advice Discussed: * Pain Medicines * Reasons To Call Back - Signs of infection occur (such as spreading redness, warmth, fever) - You become worse Protocol Used: Penis and Scrotum Symptoms (Adult) Protocol-Based Disposition: See in Office or Video Visit Today Positive Triage Question: * Patient wants to be seen * All higher-acuity triage questions were negative Care Advice Discussed: * Reasons To Call Back - You have more questions * Telephone Encounter - Ernestina Mckenzie - 09/22/2024 3:21 PM EDT Symptom: Hip Pain - Not From Injury Outcome: Schedule an urgent appointment (within 1 hour) or talk to a nurse or provider soon Reason: Trouble walking The caller accepted this outcome. [phone] documented in this encounter Plan of Treatment Upcoming Encounters Date Type Department Care Team (Late st Contact Info) Description 10/26/2024 9:45 AM EDT Office Visit [facility] MEDICINE [address] [place] [address] 11/24/2024 2:15 PM EDT Office Visit [facility] MEDICINE [address] [place] [address] [phone] Amy Pickett MD [address] [place] [address] [phone] documented as of this encounter Visit Diagnoses Not on filedocumented in this encounter Additional Health Concerns Assessment Noted Time PHQ-9 Depression Total Score: 10 024 9:41 AM EDT documented as of this encounter Care Teams Senior Director Marketing Relationship Specialty Start Date End Date Amy Pickett MD [address] [place] [phone] PCP - General Internal Medicine 04/07/23 documented as of this encounter
--- OUTSIDE RECORDS SUMMARY | 2024-09-29 17:48 | XMS_ITS | Clinical Summary ---
Author Organization [employer] Address [address] [place] [address] Care Team Providers Care [facility] Attendant Name Role Phone Amy Pcikett MD Primary Care Pro vider Allergies Active Allergy Reactions Criticality Noted Date Comments Cat Dander 10/01/2022 Corylus 12/28/2019 Dog Epithelium 10/01/2022 Dust Mite Extract 10/01/2022 Ibuprofen 12/09/2019 Other reaction(s): GI Bleeding Medications * This document contains information received from the source organization and may not represent a complete record from that organization. ALPRAZolam (Xanax) 1 MG tablet Take 1 [...] 022 Active Nebulizers (Comp-Air Elite Compact Neb) [facility] [place] Active Blood Pressure Monitor kit 1 each [...] vomiting. 60 tablet 1 023 Active pancrelipase, Nrf-Viij-Ozya, (Creon) 2285-2824 units capsule Take 1 capsule by mouth every 8 (eight) hours. Take 1 capsule by mouth 3 times every day with meals and 1 capsule with snack swallowing whole. Do not crush, chew or divide. 270 capsule 1 Active SUMAtriptan (Imitrex) 100 MG tabletIndicatio ns:Chronic migraine without aura without status migrainosus, not intractable Take 1 tablet (100 mg) by mouth 1 (one) time if needed for migraine. 9 tablet 1 Active escitalopram (Lexapro) 20 MG tablet TAKE 1 TABLET BY MOUTH EVERY MORNING *DOSE INCREASE FROM 10 TO 20 MG Active cholecalciferol VITAMIN D (Vitamin D-3) 50 MCG (1999 UT) capsuleIndicati ons:Low vitamin D level TAKE [...] needed for smoking cessation. 100 lozenge 3 Active varenicline (Chantix Continuing Month ) 1 MG tablet Take 1 tablet (1 mg) by mouth 2 times daily. Days 1-3: 0.5 mg daily , Days 4-7: 0.5 mg PO BID, Day 8 to end of treatment: 1 mg PO BID, 60 tablet 2 Active clopidogrel (Plavix) 75 MG tablet Take 75 mg by mouth. 2024 Active Famotidine (ZANTAC 360 PO) Take [...] EVERY DAY 90 tablet 1 024 Active cyanocobalamin (Vitamin B-12) 1000 MCG tablet TAKE 1 TABLET (1,000 MCG) BY MOUTH ONCE PER DAY. 90 tablet 025 2025 Active albuterol (2.5 MG/3ML) 0.083% nebulizer solution TAKE 3 ML BY NEBULIZATION ROUTE EVERY 8 HOURS NEEDED FOR WHEEZING 75 mL 3 025 Active atorvastatin (Lipitor) 40 MG tablet TAKE 1 TABLET BY MOUTH EVERY DAY IN THE MORNING 90 tablet 025 Active ipratropium-alb uterol (Combivent Respimat) 20-100 MCG/ACT inhalerIndicati ons:Moderate persistent asthma without complication Inhale 2 puffs every 6 (six) hours. 4 g 3 025 Active tamsulosin (Flomax) 0.4 MG 24 hr capsule TAKE 1 CAPSULE (0.4 MG) BY MOUTH IN THE MORNING. EVERY DAY 1/2 HOUR FOLLOWING THE SAME MEAL EACH DAY 90 capsule 025 Active clotrimazole (Lotrimin) 1 % cream Apply topically 2 times daily for 28 days. 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 2024 Discontinued(T herapy completed) tamsulosin (Flomax) 0.4 MG 24 hr capsule TAKE 1 CAPSULE (0.4 MG) BY MOUTH IN THE MORNING. 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 112 tablet 025 2024 Discontinued(R eorder (will not trigger notification to Pharmacy)) ipratropium-alb uterol (Combivent Respimat) 20-100 MCG/ACT inhaler Inhale 2 puffs every 6 (six) hours. 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 112 tablet 025 2024 Discontinued(R eorder (will not trigger notification to Pharmacy)) predniSONE (Deltasone) 20 MG tablet Take 1 tablet (20 mg) by mouth Once per day for 5 days. 5 tablet 025 2024 Active Problems Problem Noted Date Diagnosed Date Viral infection 09/07/2024 Assessment & Plan (09/07/2024 10:06 AM EST): COVID and Flu negative. No evidence of respiratory distress. Symptoms mild. No evidence of dehydration. Suspect viral infection with associated mild dehydration. Differential diagnosis also includes BPV, neurological versus cardio process, and medications that could be contributing gabapentin, oxycodone, xanax, and tamsulosin. -Recommended seeing PCP and enquiring about switching some medications since risk of syncope. -Adequate hydration recommended. -Supportive care advised. -Isolation recommendations discussed. 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 Maldonado Continue with Combivent inhaler Claudication [...] Injections 11/2022 Encouraged stretching Will refer to [facility] Continue FENCE POST DRIVER at this time. Will perform random Utox [...] without myelopathy 11/07/19 13 Assessment & Plan (09/28/2024 2:02 PM EDT): -Good engagement and participation with Group Medical Visit model -Encouraged multifactorial approach to pain control including pharm and non- pharm modalities -UTOX and Pill count as expected Assessment & Plan (09/05/2024 3:11 PM EST): [...] C7 fracture seen on CT scan at [facility] ER 10/28/23 He participated fully in group [...] C7 fracture seen on CT scan at [facility] ER 10/28/23 He participated fully in group [...] Injections 11/2022 Encouraged stretching Will refer to [facility] physical therapy Continue FENCE POST DRIVER at this time. Will perform random Utox [...] lumbar pain. [facility]our[facility] FENCE POST DRIVER at this time. Will perform random Utox [...] 09/16/2023 01/27/2024 Abnormal urine odor 01/23/2018 10/02/19 23 Encounters * This document contains information received from the source organization and may not represent a complete record from that organization. 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 09/28/2024 Refill [facility] [address] [place] [phone] Amy Pickett MD Chronic pain of both knees; Chronic low back pain, unspecified back pain laterality, unspecified whether sciatica present 09/28/2024 Travel 09/22/2024 6:20 PM EDT Office Visit [facility] [address] [place] [phone] Brent Hanson MD STD exposure (Primary Dx); Balanitis; Left hip pain 09/22/2024 Telephone [facility] [address] [place] [address] [phone] Amy Pickett MD Nurse Triage 09/19/2024 Refill [facility] [address] [place], [place] [phone] Chioma Mojica MD 09/07/2024 9:20 AM EST Office Visit [facility] [address] [phone] Bri Noriega MD Viral infection 09/07/2024 Telephone [facility] [address] [place] [phone] Amy Pickett MD [employer] (Boost, strawberry tetra brik 8oz ()) 09/06/2024 Orders Only GENERIC EXTERNAL DATA DEPARTMENT Provider, Generic External Data 09/06/2024 Telephone [facility] [address] [place] [phone] Amy Pickett MD Durable Medical Equipment (Boost recert) 09/01/2024 Refill [facility] [address] [place] [address] [phone] Amy Pickett MD Chronic pain of both knees; Chronic low back pain, unspecified back pain laterality, unspecified whether sciatica present 09/01/2024 Refill [facility] [address] [place] [phone] Amy Pickett MD Moderate persistent asthma without complication 09/01/2024 Telephone [facility] [address] [place] [phone] Amy Pickett MD 09/01/2024 Telephone [facility] [address] [place] [phone] Amy Pickett MD 08/31/2024 9:45 AM EST Office Visit [facility] [address] [place] [address] Phalen, Holly, CLASSROOM COORDINATOR Cervical spondylosis without myelopathy (Primary Dx); penitentiary 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; Chronic obstructive pulmonary disease, unspecified COPD type ([facility]) 08/31/2024 Refill [facility] [address] [place] [phone] Yaw Willsle, CLASSROOM COORDINATOR Moderate persistent asthma without complication 08/31/2024 Travel 08/25/2024 Telephone [facility] [address] [place] [phone] Shu Martínez ID October08/15/2024 Refill [facility] [address] [place] [address] Amy Pickett MD 08/06/2024 Telephone [facility] [address] [place] [address] [phone] Amy Pickett MD Med Refill 08/06/2024 Refill [facility] [address] [place] [address] [phone] Amy Pickett MD Chronic pain of both knees; Chronic low back pain, unspecified back pain laterality, unspecified whether sciatica present 08/04/2024 Refill [facility] [address] [place] [address] Amy Pickett MD 08/04/2024 Telephone [facility] [address] [place] [address] 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 RN 08/04/2024 Travel 08/03/2024 Telephone [facility] [address] [place] [address] Amy Pickett MD Appointment Request 07/13/2024 Telephone [facility] [address] [facility] [place] [phone] Amy Pickett MD 07/09/2024 Refill [facility] [address] [facility] [place], [place] [phone] Amy Pickett MD Chronic pain of both [...] Sign Reading Time Taken Comments Blood Pressure 137/91 09/22/2024 5:52 PM EDT Pulse 107 09/22/2024 5:52 PM EDT Temperature 36 ??C (96.8 ??F) 09/22/2024 5:52 PM EDT Respiratory Rate 20 09/22/2024 5:52 PM EDT Oxygen Saturation 98% 09/22/2024 5:52 PM EDT Inhaled Oxygen Concentration - - Weight 75.8 kg (167 lb) 09/22/2024 5:52 PM EDT Height 162.6 cm (5' 4 ) 09/22/2024 5:52 PM EDT Body Mass Index 28.67 09/22/2024 5:52 PM EDT Plan of Treatment Upcoming Encounters Date Type Department Care Team (Late st Contact Info) Description 10/26/2024 9:45 AM EDT Office Visit [facility] [address] [place] [phone] 11/24/2024 2:15 PM EDT Office Visit [facility] [address] [place] [address] [phone] Amy Pickett MD [address] [place] [address] [phone] Health Maintenance Due Date Last Done Comments CT Colonography 1967 FIT DNA/Cologuard 1967 FIT 1967 FOBT 1967 Sigmoidoscopy 1967 Alcohol/Substance Use Screening 1979 Hepatitis A Vaccines (1 of 2 - Risk 2-dose series) 12/23/1986 Depression Monitoring (PHQ-9) 09/09/2024 03/12/2024, 03/12/2024 Depression Screening 03/12/2025 03/12/2024, 03/12/20 24 SDOH Screening 05/14/2025 05/14/2024 Tobacco Screening 09/07/2025 09/07/2024 DTaP/Tdap/Td Vaccines (3 - Td or Tdap) 08/01/2026 08/01/2016, 10/27/2012 Colonoscopy 01/07/2028 01/06/2018 Colorectal Cancer Screening 01/07/2028 Lipid Panel 09/29/2029 09/29/2024, 03/19/2024 RSV Patients and Patients Aged 60 [...] Procedure Name Priority Date/Time Associated Diagnosis Comments C-REACTIVE PROTEIN Routine 09/29/2024 3: 37 PM EDT Hyperlipidemia, unspecified hyperlipidemia type VITAMIN B12/FOLATE, SERUM PANEL Routine 09/29/2024 3:37 PM EDT Hyperlipidemia, unspecified hyperlipidemia type LIPID PANEL, STANDARD Routine 09/29/2024 3:37 PM EDT Hyperlipidemia, unspecified hyperlipidemia type COMPREHENSIVE METABOLIC PANEL Routine 09/29/2024 3:37 PM EDT Hyperlipidemia, unspecified hyperlipidemia type POCT ROBIN-14 URINE DRUG SCREEN Routine 09/28/2024 1:23 PM EDT Cervical spondylosis without myelopathy penitentiary 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 CHLAMYDIA/N. GONORRHOEAE RNA, TMA, UROGENITAL Routine 09/22/2024 4:24 PM EDT STD exposure POCT INFLUENZA A Routine 09/07/2024 10:0 1 AM EST Viral infection POCT INFLUENZA B Routine 09/07/2024 9:53 AM EST Viral infection POCT RAPID COVID ANTIGEN Routine 09/07/2024 9:52 AM EST Viral infection HIGH SENSITIVITY TROPONIN I Routine 09/06/2024 12:14 [...] DRUG SCREEN Routine 08/31/2024 1:11 PM EST penitentiary 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 HEPATITIS C AB W/REFL TO HCV RNA, QN, PCR Routine 03/19/2024 9:30 AM EDT Annual physical exam HIV 1/2 ANTIGEN/ANTIBODY, FOURTH GENERATION W/RFL Routine 03/19/2024 9:30 AM EDT Annual physical exam HM COLONOSCOPY Routine 01/06/2018 8:00 AM EDT from Last 3 Months or Most Recently Relevant to Health Maintenance Results * Vitamin B12 (Cobalamin) and Folate Panel, Serum (09/29/2024 3:37 PM EDT) Vitamin B12 338 200 - 900 pg/mL [facility] Comment:NORMAL 200-900 PG/M L INDETERMINATE 160-199 PG/ML DEFICIENT < 160 PG/ML Folate 7.6 > or = 4.0 ng/mL [facility] Comment:Reference Values:> o r = 4.0 ng/mL< 4.0 ng/mL suggests folate deficiency Methotrexate, aminopterin and folinic acid(leucovorin) are chemotherapeutic agents whose molecularstructures are similar to folate; therefore, the Architectfolate assay cannot be used for patients using these drugs. Blood 09/29/2024 3:37 PM EDT 09/29/2024 3:38 PM EDT us Amy Berry MD LAB BLOOD ORDERAB LES Final Result Performing Organization Address [facility]/ZIP Co de Phone Number [facility] [address] [place] [phone] * C-reactive Protein (09/29/2024 3:37 PM EDT) [facility] C Reactive Protein 0.18 < or = 0.50 mg/dL [facility] Blood Venous blood specimen / Unknown 09/29/2024 3:37 PM EDT 09/29/2024 3:38 PM EDT us Amy Berry MD LAB BLOOD ORDERAB LES Final Result Performing Organization Address City/[facility]/ZIP Co de Phone Number [facility] [address] [place] [phone] * (ABNORMAL) Lipid Panel, Standard (09/29/2024 3:37 PM EDT) [facility] Triglycerides 155(H) <150 mg/dL [facility] Comment:Desirable Triglyceri de: less than 150 mg/dLBorderline High Triglyceride 150-199 mg/dLHigh Triglyceride: 200-499 mg/dLVery High Triglyceride: greater than or equal to 5OO mg/dL Cholesterol 211(H) <200 mg/dL [facility] Comment:Desirable Cholestero l: less than 200 mg/dLBorderline High Cholesterol: 200-239 mg/dLHigh Cholesterol: greater than 239 mg/dL LDL Cholesterol Calculated 131(H) <100 mg/dL [facility] Comment:Desirable LDL: less than 100 mg/dLNear Optimal/Above Optimal LDL: 110- 129 mg/dLBorderline High LDL: 130-159 mg/dLHigh LDL: 160-189 mg/dLVery High LDL: greater than or equal to 190 mg/dL HDL Cholesterol 49 >40 mg/dL [facility] Comment:Desirable HDL: great er than 40 mg/dL Note: This HDL assay may give artificially low results in patients with liver disease. Blood Venous blood specimen / Unknown 09/29/2024 3:37 PM EDT 09/29/2024 3:38 PM EDT Amy Berry MD LAB BLOOD ORDERAB LES Final Result [facility] [address] [place] [phone] * (ABNORMAL) Comprehensive Metabolic Panel (09/29/2024 3:37 PM EDT) Only the most recent of2 resultswithin the time period is included. Sodium 140 135 - 145 mmol/L [facility] Potassium 4.5 3.3 - 5.1 mmol/L [facility] Chloride 109(H) 96 - 108 mmol/L [facility] Carbon Dioxide 26 22 - 29 mmol/L [facility] Anion Gap 10(L) 12 - 20 [facility] Urea Nitrogen (BUN) 21(H) 9 - 16 mg/dL [facility] Creatinine, Serum 0.94 0.5 - 1.4 mg/dL [facility] Estimated Glomerular Filt Rate >60 [facility] Comment:Chronic Kidney Disea se: Estimated GFR < 60 mL/min/[id number] Kidney Disease: Estimated GFR < 15 mL/min/1.73m2 Glucose 108 60 - 115 mg/dL [facility] Calcium 9.7 8.4 - 10.2 mg/dL [facility] Bilirubin, Total 0.3 0.0 - 1.0 mg/dL [facility] Aspartate Amino Transferase 15 5 - 37 U/L [facility] Alanine Aminotransferase 21 0 - 40 U/L [facility] Total Protein 7.0 6.5 - 8.0 g/dL [facility] Albumin Level 4.2 3.5 - 5.0 g/dL [facility] Alkaline Phosphatase 92 39 - 117 U/L [facility] Blood Venous blood specimen / Unknown 09/29/2024 3:37 PM EDT 09/29/2024 3:38 PM EDT us Amy Berry MD LAB BLOOD ORDERAB LES Final Result Performing Organization Address City/State/[facility] Co de Phone Number [facility] [address] [place] [phone] * POCT ROBIN-14 Urine Drug Screen (09/28/2024 1:23 PM EDT) Only the most recent of2 resultswithin the time period is included. THC Positive Cocaine Screen, Urine Negative Opiate Screen, Urine Negative Methamphetamine Screen Urine Negative Amphetamine Screen, Urine Negative Benzodiazepines Screen, Urine Positive Barbiturate Screen, Urine Negative Methadone Screen, Urine Negative Buprenophine Screen, Urine Negative TCA, Urine Negative MDMA Urine Negative ng/mL Oxycodone Screen, Urine Positive Phencyclidine (PCP), Urine Negative Propoxyphene, Urine Negative Fentanyl, Urine Negative Urine Urine specimen obtained by clean catch procedure / Unknown 09/28/2024 1:23 PM EDT Narrative Flores Crook MA - 09/28/2024 1:26 PM EDT Lot:[id number] Exp: 02/24/2028 us Holly Wills CLASSROOM COORDINATOR POINT OF CARE TEST ENTER/EDIT ORDERABLES Final Result * Chlamydia/N. Gonorrhoeae RNA, TMA, Urogenitial (09/22/2024 4:24 PM EDT) CT PCR NOT DETECTED Not Detect. [facility] Comment:A not detected test result does not exclude the possibilityof infection because test results can be affected byimproper specimen collection, concurrent antibiotic therapy,or the number of organisms in the specimen which may bebelow the sensitivity of the test. As with many diagnostictests, results from the Xpert CT/NG assay should beinterpreted in conjunction with other laboratory andclinical data available to the clinician.Xpert CT/NG performance has not been evaluated in patientsless than 14 years of age. The assay should not be used forthe evaluationof suspected sexual abuse or for other medico-legalindications. Additional testing is recommended in anycircumstance when false positive or false negative resultscould lead to adverse medical, social or psychologicalconsequences. NG PCR NOT DETECTED Not Detect. [facility] Comment:A not detected test result does not exclude the possibilityof infection because test results can be affected byimproper specimen collection, concurrent antibiotic therapy,or the number of organisms in the specimen which may bebelow the sensitivity of the test. As with many diagnostictests, results from the Xpert CT/NG assay should beinterpreted in conjunction with other laboratory andclinical data available to the clinician.Xpert CT/NG performance has not been evaluated in patientsless than 14 years of age. The assay should not be used forthe evaluationof suspected sexual abuse or for other medico-legalindications. Additional testing is recommended in anycircumstance when false positive or false negative resultscould lead to adverse medical, social or psychologicalconsequences. Swab (Urine, Random) 09/22/2024 4:24 PM EDT 09/23/2024 12:42 PM EDT Narrative [facility] - 09/23/2024 3:01 PM EDT Urine us Brent Fischer MD LAB MICROBIOLOGY - GENERAL ORDERABLES Final Result [facility] [address] [place] [phone] * POCT Influenza A manually resulted (09/07/2024 10:01 AM EST) [facility] Rapid Influenza A Ag Negative Negative, Indeterminate QC Media Lot # [id number] Lot# Expiration Date 100, Swab Nasopharyngeal structure / Unknown 09/07/2024 10:01 AM EST Bri Noriega MD POINT OF CARE TEST ENTER/E DIT ORDERABLES Final Result * POCT Influenza B manually resulted (09/07/2024 9:53 AM EST) [facility] Rapid Influenza B Ag Negative Negative, Indeterminate QC Media Lot # [id number] Lot# Expiration Date 100 Swab 09/07/2024 9:53 AM EST Result [facility] Bri Noriega MD POINT OF CARE TEST ENTER/E DIT ORDERABLES Final Result * POCT Rapid COVID Ag (09/07/2024 9:52 AM EST) [facility] Rapid COVID Ag Negative QC Media Lot # [id number] Lot# Expiration Date 91,426 Swab 09/07/2024 9:52 AM EST Result [facility] Bri Noriega MD POINT OF CARE TEST ENTER/E DIT ORDERABLES Final Result * High Sensitivity Troponin I (09/06/2024 12:14 PM EST) [facility] TROPONIN I HIGH SENSITIVITY <2.7 <3.5 - 35.0 ng/L [facility] Comment:The [place] high sens itivity Troponin-I results should beused in conjunction with other diagnostic information suchas ECG, clinical observations and information, and patientsymptoms to aid in the diagnosis of SC. 09/06/2024 12:1 4 PM EST 09/06/2024 12:19 PM EST Generic External Data Provider LAB BLOOD ORDERAB LES Final Result Performing Organization Address [facility] Co de Phone Number [facility] [address] [place] [phone] * SARS-CoV-2 RNA, Influenza A/B, and RSV RNA, Ql NAAT (09/06/2024 12:14 PM EST) Pathologist [facility] Influenza A PCR NEGATIVE Negative [facility] Influenza B PCR NEGATIVE Negative [facility] Resp Syncy Virus RNA Qual PCR NEGATIVE Negative [facility] SARS COV2 PCR NEGATIVE Negative [facility] Comment:All test results mus t be [...] use by authorized laboratories.Testing performed on the [employer] GeneXpert utilizingreal-time RT-PCR.All SARS CoV2 and positive influenza A/B results arereported to [facility]. 09/06/2024 12:1 4 PM EST 09/06/2024 12:19 PM EST Generic External Data Provider LAB MICROBIOLOGY - GENERAL ORDERABLES Final Result Performing Organization Address [facility] Co de Phone Number [facility] [address] [place] [address] [phone] * (ABNORMAL) CBC auto differential (09/06/2024 12:14 PM EST) Pathologist [facility] White Blood Count 7.6 4.8 - 10.8 X10*3/uL [facility] Red Blood Count 4.30(L) 4.60 - 5.80 X10*6/uL [facility] Hemoglobin 13.3(L) 14.0 - 18.0 g/dl [facility] Hematocrit 40.1(L) 42.0 - 52.0 % [facility] Mean Corpuscular Volume 93.3 80.0 - 98.0 fL [facility] Mean Corpuscular Hemoglobin 30.9 27.0 - 33.0 pg [facility] Mean Corpuscular HGB Conc 33.2 31.0 - 36.0 g/dl [facility] Red Cell Distribution Width 14.2 11.0 - 16.0 % [facility] Platelet Count 248 160 - 400 X10*3/uL [facility] Mean Platelet Volume 9.2(L) 9.4 - 12.4 fL [facility] Neutrophils Percent Auto 73.0 45 - 73 % [facility] Imm Gran Pct Auto 0.3 0.0 - 0.4 % [facility] Lymphocytes Percent Auto 20.0 20 - 40 % [facility] Monocytes Percent Auto 6.2 2 - 11 % [facility] Eosinophils Percent Auto 0.4 0 - 4 % [facility] Basophils Percent Auto 0.1 0 - 2 % [facility] NRBC Pct Auto 0.0 0.0 - 0.2 /100WBC [facility] Neutrophils Absolute Auto 5.5 2.0 - 8.3 x10*3/uL [facility] Imm Gran Abs Auto 0.02 0.00 - 0.03 X10*3/uL [facility] Lymphocytes Absolute Auto 1.5 1.2 - 4.9 X10*3/uL [facility] Monocytes Absolute Auto 0.5 0.1 - 1.2 X10*3/uL [facility] Eosinophils Absolute Auto 0.0 0.0 - 0.4 X10*3/uL [facility] Basophils Absolute Auto 0.0 0.0 - 0.2 X10*3/uL [facility] NRBC Abs Auto 0.000 0.0 - 0.012 X10*3/uL [facility] 09/06/2024 12:1 4 PM EST 09/06/2024 12:19 PM EST us Generic External Data Provider LAB BLOOD ORDERAB LES Final Result Performing Organization Address [facility] Co de Phone Number [facility] [address] [place] [address] [phone] * Urinalysis w/reflex microscopic (09/06/2024 12:14 PM EST) Color Urine Yellow [facility] Appearance Urine Clear [facility] PH 6.5 5.0 - 9.0 [facility] Glucose Urine UA Negative Negative mg/dL [facility] Urine Blood Negative Negative [facility] Specific Mobile - Urine <=1.005 1.005 - 1.025 [facility] Urine Protein Negative Neg-Trace mg/dL [facility] Urine Ketones Negative Negative mg/dL [facility] Nitrite Urine Negative Negative [facility] Leukocyte Esterase Urine Negative Negative [facility] 09/06/2024 12:1 4 PM EST 09/06/2024 12:19 PM EST Narrative [facility] - 09/06/2024 12:23 PM EST Urine, Clean Catch Generic External Data Provider LAB URINE ORDERAB LES Final Result Performing Organization Address [facility] de Phone Number [facility] [address] [place] [phone] * Partial Thromboplastin Time, Activated (APTT) (09/06/2024 12:14 PM EST) Partial Thromboplastin Time 30.4 26.0 - 36.8 SEC [facility] Comment:For information rega rding the monitoring of direct thrombininhibitors, please refer to Pharmacy. 09/06/2024 12:1 4 PM EST 09/06/2024 12:19 PM EST Generic External Data Provider LAB BLOOD ORDERAB LES Final Result Performing Organization Address City/[facility]/ZIP Co de Phone Number [facility] [address] [place] [phone] * Prothrombin Time-INR (09/06/2024 12:14 PM EST) Pathologist [facility] Prothrombin Time 11.4 10.9 - 12.4 SEC [facility] INTERNATIONAL NORM RATIO 1.0 0.9 - 1.1 [facility] Comment:INTERNATIONAL NORMAL IZED RATIO (INR) REFERENCE [...] ORDERAB LES Final Result Performing Organization Address City/[facility]/ZIP Co de Phone Number [facility] [address] [place] [address] [phone] * Magnesium (09/06/2024 12:14 PM EST) [facility] Magnesium 2.1 1.6 - 2.6 mg/dL [facility] 09/06/2024 12:1 4 PM EST 09/06/2024 12:19 PM EST [employer] External Data Provider LAB BLOOD ORDERAB LES Final Result Performing Organization Address [facility]/ZIP Co de Phone Number [facility] [address] [place] [address] [phone] * XR Chest 2 Views (09/06/2024 11:57 AM EST) Anatomical Region Laterality Modality Chest Radiographic Maxine ging 09/06/2024 11:5 7 AM EST Narrative 09/06/2024 1:08 PM EST ? [facility] ?[address] ?[place] [address] ?XRay Report ? Signed ? Patient: Pati Lazcano,Esequiel ?MR# ?? : [id number] ? : 1965 ?Acct:[id number] ? Age/Sex: 58 / M ?ADM Date: 09/06/24 ? Loc: HO.ED ? Attending Dr: ? Ordering Physician: Haleigh Arora ?? Date of Service: 09/06/24 ?? Procedure(s): XR chest 2V ?? Accession Number(s): [id number] ? cc: Haleigh Arora; Amy Pickett MD [...] ??Terry Jesus MD ??09/06/2024 01:05 PM EST ? Dictated By: ?Terry Jesus MD ? Signed By: ?<Electronically signed by Terry Jesus MD in OV> ?09/06/24 1305 ? DD/ 1157 ? TD/TT: 09/06/24 1245 ? Hydraulic Tester: ? Procedure Note Anay, Ted - 09/06/[address] [address] XRay Report Signed Patient: Zain Welch R# : [id number] : [id number]:[id number] Age/Sex: 58 / MADM Date: 09/06/24 Loc: HO.ED Attending Dr: Ordering Physician: Haleigh Arora Date of Service: 09/06/24 Procedure(s): XR chest 2V Accession Number(s): [id number] cc: Haleigh Arora; Amy Pickett MD EXAMINATION: [...] 09/06/24 1305 DD/ 1157 TD/TT: 09/06/24 1245 Hydraulic Tester: [facility] External Provider IMG XR PROCEDURES Final Result * (ABNORMAL) Hepatitis C Antibody with Reflex to HCV, RNA, Quantitative, Real- Time PCR (03/19/2024 9:30 AM EDT) Hepatitis C Antibody Reactive( A) Nonreactive [facility] Comment:Presumptive evidence of antibodies to HCV. Blood Venous blood specimen / Unknown 03/19/2024 9:30 AM EDT 03/19/2024 11:45 AM EDT Amy Berry MD LAB BLOOD ORDERAB LES Final Result [facility] [address] [place] [address] [phone] * HIV-1/2 Antigen and Antibodies, Fourth Generation, with Reflexes (03/19/2024 9:30 AM EDT) HIV AB/AG Nonreactive Nonreactive [facility] Comment:HIV-1 p24 Ag and/or HIV-1/HIV-2 Ab not detected.A test result that is nonreactive does not exclude thepossibility of exposure to or infection with HIV-1 and/orHIV-2. Nonreactive results in this assay for individualswith prior exposure to HIV-1 and/or HIV-2 may be due toantigen and antibody levels that are below the limit ofdetection of this assay.The [employer] HIV Ag/Ab Combo assay result andsupplemental assay results should be interpreted inconjunction with the patient's clinical presentation,history and other laboratory results. If the results areinconsistent with clinical evidence, additional testing issuggested to confirm the result. Blood Venous blood specimen / Unknown 03/19/2024 9:30 AM EDT 03/19/2024 11:45 AM EDT Amy Berry MD LAB BLOOD ORDERAB LES Final Result Performing Organization Address City/State/[facility] Co de Phone Number [facility] [address] [place] [phone] * Hm Colonoscopy (01/06/2018 8:00 AM EDT) us Historical Provider HEALTH MAINTENANCE Final Result from Last 3 Months or Most Recently Relevant to Health Maintenance Insurance [id number] [address] [facility] Care Teams Welcome Center Attendant Relationship Specialty Start Date End Date Amy Pickett MD [address] [place] [phone] PCP - General Internal Medicine 04/07/23
--- OUTSIDE RECORDS SUMMARY | 2024-09-29 17:48 | XMS_ITS | Encounter Summary ---
Author Organization [employer] Address [address] [place] [address] Care Team Providers Care Rib Bender Name Role Phone Amy Pickett MD Primary Care Pro vider Encounter Details Date Type Department Care Team (Late st Contact Info) Description 09/28/2024 9:45 AM EDT Office Visit [facility] MED[facility]INE [address] [place] [address] Holly Wills, BATTALION CHIEF [address] [place] [address] Cervical spondylosis without myelopathy (Primary Dx); intermediate 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 Social History Tobacco Use Types Packs/Day Years [...] as of this encounter Miscellaneous Notes * Assessment & Plan Note - KENDRA Singh - 09/28/2024 2:02 PM EDTAssociated Problem(s): Cervical spondylosis without myelopathy -Good engagement and participation with Group Medical Visit model -Encouraged multifactorial approach to pain control including pharm and non- pharm modalities -UTOX and Pill count as expected documented in this encounter Plan of Treatment Upcoming Encounters Date Type Department Care Team (Late st Contact Info) Description 10/26/2024 9:45 AM EDT Office Visit [facility] MEDICINE [address] [place] [phone] 11/24/2024 2:15 PM EDT Office Visit [facility] MEDICINE [address] [place] [phone] Amy Pickett MD [address] [place] [address] [phone] documented as of this encounter Procedures Procedure Name Priority Date/Time Associated Diagnosis Comments POCT ROBIN-14 URINE DRUG SCREEN Routine 09/28/2024 1:23 PM EDT Cervical spondylosis without myelopathy 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 documented in this encounter Results * POCT ROBIN-14 Urine Drug Screen (09/28/2024 1:23 PM EDT) THC Positive Cocaine Screen, Urine Negative Opiate [...] Cro[place] - 09/28/2024 1:26 PM EDT Lot:[id number] Exp: 02/24/2028 Holly Wills BATTALION CHIEF POINT OF CARE TEST ENTER/EDIT ORDERABLES Final Result documented in this encounter Visit Diagnoses Diagnosis Cervical spondylosis without myelopathy- Primary 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 documented in this encounter Additional Health Concerns Assessment Noted Time PHQ-9 Depression Total Score: 10 024 9:41 AM EDT documented as of this encounter Care Teams Rib Bender Relationship Specialty Start Date End Date Amy Pickett MD [address] [place] [phone] PCP - General Internal Medicine 04/07/23 documented as of this encounter
--- OUTSIDE RECORDS SUMMARY | 2024-09-29 17:48 | XMS_ITS | Encounter Summary ---
Author Organization [employer] Address [address] [facility] 7 [place] [address] Care Team Providers Care Class C Truck Driver Name Role Phone Amy Pickett MD Primary Care Pro vider Reason for Visit * Reason Onset Date Comments Med Refill 04/09/2024 Encounter Details Date Type Department Care Team ([facility] st Contact Info) Description 04/09/2024 Telephone [facility] MEDICINE [address] [place], [place] [phone] Amy Pickett MD [address] [place], [place] [phone] Med Refill Social History Tobacco Use Types [...] immediate release tablet To be sent to: [facility]/pharmacy #[id number] - [address] documented in this encounter Plan of Treatment Upcoming Encounters Date Type Department Care Team (Late st Contact Info) Description 10/26/2024 9:45 AM EDT Office Visit [facility] MEDICINE [address] [place] [phone] 11/24/2024 2:15 PM EDT Office Visit [facility] MED[facility]INE [address] [place] [phone] Amy Pickett MD [address] [place], [place] [phone] documented as of this encounter Visit Diagnoses Not on filedocumented in this encounter Additional Health Concerns Assessment Noted Time PHQ-9 Depression Total Score: 10 024 9:41 AM EDT documented as of this encounter Care Teams Class C Truck Driver Relationship Specialty Start Date End Date Amy Pickett MD [address] [place] [phone] PCP - General Internal Medicine 04/07/23 documented as of this encounter
--- OUTSIDE RECORDS SUMMARY | 2024-09-29 17:48 | XMS_ITS | Encounter Summary ---
Author Organization [employer] Address [address] [facility] [facility] [address] [place] [address] Care Team Providers Care Interventional Radiology Rn Name Role Phone Amy Pickett MD Primary Care Pro vider Reason for Visit * Reason Comments Med Refill Encounter Details Date Type Department Care Team ([facility] st Contact Info) Description 09/19/2024 Refill [facility] [address] [place] [address] Chioma Mojica MD [address] [place] [address] Social History Tobacco Use Types Packs/Day Years [...] Description 10/26/2024 9:45 AM EDT Office Visit [facility] MEDICINE [address] [place] [phone] 11/24/2024 2:15 PM EDT Office Visit [facility] MEDICINE [address] [place] [phone] Amy Pickett MD [address] [place] [phone] documented as of this encounter Visit Diagnoses Not on filedocumented in this encounter Additional Health Concerns Assessment Noted Time PHQ-9 Depression Total Score: 10 024 9:41 AM EDT documented as of this encounter Care Teams Interventional Radiology Rn Relationship Specialty Start Date End Date Amy Pickett MD [address] [place] [phone] PCP - General Internal Medicine 04/07/23 documented as of this encounter
--- OUTSIDE RECORDS SUMMARY | 2024-09-29 17:48 | XMS_ITS | Encounter Summary ---
Author Organization [employer] Address [address] [place] [address] Care Team Providers Care Manager People Name Role Phone Elise Glover Primary Care Provider [phone] Amy Pickett MD Primary Care Pro vider Encounter Details Date Type Department Care Team (Late st Contact Info) Description 01/14/2023 Orders Only [address] [address] Elise Glover FNP [address] [place] [address] [place] [address] Social History Tobacco Use Types Packs/Day Years [...] 10/26/2024 9:45 AM EDT Office Visit [facility] MEDICINE [address] [place] [phone] 11/24/2024 2:15 PM EDT Office Visit [address] [phone] Amy Pickett MD [address] [place] [phone] documented as of this encounter Visit Diagnoses Not on filedocumented in this encounter Additional Health Concerns Assessment Noted Time PHQ-9 Depression Total Score: 24 10/01/ 023 10:05 AM EDT documented as of this encounter Care Teams Manager People Relationship Specialty Start Date End Date Elise Glover FNP PCP - General Family Medicine 07/09/22 04/06/23 Amy Pickett MD [address] [place] [phone] PCP - General Internal Medicine 04/07/23 documented as of this encounter
--- OUTSIDE RECORDS SUMMARY | 2024-09-29 17:48 | XMS_ITS | Encounter Summary ---
Author Organization [employer] Address [address] 7[address] [place] [address] Care Team Providers Care Laundry Equipment Operator Name Role Phone Amy Pickett MD Primary Care Pro vider Reason for Visit * Reason Comments Med Change Request Encounter Details Date Type Department Care Team ([facility] st Contact Info) Description 08/31/2024 Refill [facility] MEDICINE [address] [place] [address] Holly Wills FNP [address] [place] [address] Moderate persistent asthma without complication Social History [...] Description 10/26/2024 9:45 AM EDT Office Visit [facility] MEDICINE [address] [place] [phone] 11/24/2024 2:15 PM EDT Office Visit [address] [address] Amy Pickett MD [address] [place] [phone] documented as of this encounter Visit Diagnoses Diagnosis Moderate persistent asthma without complication documented in this encounter Additional Health Concerns Assessment Noted Time PHQ-9 Depression Total Score: 10 024 9:41 AM EDT documented as of this encounter Care Teams Laundry Equipment Operator Relationship Specialty Start Date End Date Amy Pickett MD [address] [place] [phone] PCP - General Internal Medicine 04/07/23 documented as of this encounter
--- OUTSIDE RECORDS SUMMARY | 2024-09-29 17:48 | XMS_ITS | Encounter Summary ---
Author Organization [employer] Address [address] [facility] [address] 7[address] [place] [address] Care Team Providers Care Exhibition Designer Name Role Phone Amy Pickett MD Primary [...] Description 10/26/2024 9:45 AM EDT Office Visit [facility] [address] [place] [phone] 11/24/2024 2:15 PM EDT Office Visit [facility] [address] [place] [address] Amy Pickett MD [address] [place] [address] [phone] documented as of this encounter Procedures Procedure [...] PM EST) Influenza A PCR NEGATIVE Negative [facility] Influenza B PCR NEGATIVE Negative [facility] Resp Syncy Virus RNA Qual PCR NEGATIVE Negative [facility] SARS COV2 PCR NEGATIVE Negative [facility] Comment:All test results mus t be [...] use by authorized laboratories.Testing performed on the Sticky GeneXpert utilizingreal-time RT-PCR.All SARS CoV2 and positive influenza A/B results arereported to [facility]. 09/06/2024 12:1 4 PM EST 09/06/2024 12:19 PM EST us Generic External Data Provider LAB MICROBIOLOGY - GENERAL ORDERABLES Final Result [facility] [address] [place] [address] [phone] * High Sensitivity Troponin I (09/06/2024 12:14 PM EST) TROPONIN I HIGH SENSITIVITY <2.7 <3.5 - 35.0 ng/L [facility] Comment:The Harding high sens itivity Troponin-I results should beused in conjunction with other diagnostic information suchas ECG, clinical observations and information, and patientsymptoms to aid in the diagnosis of NH. 09/06/2024 12:1 4 PM EST 09/06/2024 12:19 PM EST Generic External Data Provider LAB BLOOD ORDERAB LES Final Result Performing Organization Address [facility] Co de Phone Number [facility] [address] [place] [phone] * Magnesium (09/06/2024 12:14 PM EST) Pathologist [facility] Magnesium 2.1 1.6 - 2.6 mg/dL [facility] 09/06/2024 12:1 4 PM EST 09/06/2024 12:19 PM EST Generic External Data Provider LAB BLOOD ORDERAB LES Final Result Performing Organization Address [facility] de Phone Number [facility] [address] [place] [address] [phone] * Comprehensive Metabolic Panel (09/06/2024 12:14 PM EST) Pathologist [facility] Sodium 141 135 - 145 mmol/L [facility] Potassium 4.7 3.3 - 5.1 mmol/L [facility] Comment:SLIGHT HEMOLYSIS.Int erpret result with caution. Chloride 107 96 - 108 mmol/L [facility] Carbon Dioxide 26 22 - 29 mmol/L [facility] Anion Gap 13 12 - 20 [facility] Urea Nitrogen (BUN) 12 9 - 16 mg/dL [facility] Creatinine, Serum 0.90 0.5 - 1.4 mg/dL [facility] Creatinine Clr Calc Pharmacy 86.4 [facility] Comment:eGFR (calculated fro m the MDRD study equation) and eCrCl(calculated from the Cockcroft-Gault equation) are based ondifferent parameters and may not yield comparable results.If eCrCl result is absurd, please check patient'sheight/weight. Estimated Glomerular Filt Rate >60 [facility] Comment:Chronic Kidney Disea se: Estimated GFR < 60 mL/min/1.43x1Dkshxf Kidney Disease: Estimated GFR < 15 mL/min/1.73m2 Glucose 80 60 - 115 mg/dL [facility] Calcium 9.2 8.4 - 10.2 mg/dL [facility] Bilirubin, Total 0.9 0.0 - 1.0 mg/dL [facility] Aspartate Amino Transferase 25 5 - 37 U/L [facility] Comment:Slight Hemolysis.Int erpret result with caution. Alanine Aminotransferase 21 0 - 40 U/L [facility] Total Protein 7.4 6.5 - 8.0 g/dL [facility] Albumin Level 3.9 3.5 - 5.0 g/dL [facility] Alkaline Phosphatase 78 39 - 117 U/L [facility] 09/06/2024 12:1 4 PM EST 09/06/2024 12:19 PM EST us Generic External Data Provider LAB BLOOD ORDERAB LES Final Result Performing Organization Address [facility]/ZIP Co de Phone Number [facility] [address] [place] [address] [phone] * Partial Thromboplastin Time, Activated (APTT) (09/06/2024 12:14 PM EST) Partial Thromboplastin Time 30.4 26.0 - 36.8 SEC [facility] Comment:For information rega rding the monitoring of direct thrombininhibitors, please refer to Pharmacy. 09/06/2024 12:1 4 PM EST 09/06/2024 12:19 PM EST us Generic External Data Provider LAB BLOOD ORDERAB LES Final Result Performing Organization Address [facility]/ZIP Co de Phone Number [facility] [address] [place] [phone] * Prothrombin Time-INR (09/06/2024 12:14 PM EST) Pathologist [facility] Prothrombin Time 11.4 10.9 - 12.4 SEC [facility] INTERNATIONAL NORM RATIO 1.0 0.9 - 1.1 [facility] Comment:INTERNATIONAL NORMAL IZED RATIO (INR) [...] ORDERAB LES Final Result Performing Organization Address City/State/[facility] Co de Phone Number [facility] [address] [place] [address] [phone] * (ABNORMAL) CBC auto differential (09/06/2024 12:14 PM EST) [facility] White Blood Count 7.6 4.8 - 10.8 X10*3/uL [facility] Red Blood Count 4.30(L) 4.60 - 5.80 X10*6/uL [facility] Hemoglobin 13.3(L) 14.0 - 18.0 g/dl [facility] Hematocrit 40.1(L) 42.0 - 52.0 % [facility] Mean Corpuscular Volume 93.3 80.0 - 98.0 fL [facility] Mean Corpuscular Hemoglobin 30.9 27.0 - 33.0 pg [facility] Mean Corpuscular HGB Conc 33.2 31.0 - 36.0 g/dl [facility] Red Cell Distribution Width 14.2 11.0 - 16.0 % [facility] Platelet Count 248 160 - 400 X10*3/uL [facility] Mean Platelet Volume 9.2(L) 9.4 - 12.4 fL [facility] Neutrophils Percent Auto 73.0 45 - 73 % [facility] Imm Gran Pct Auto 0.3 0.0 - 0.4 % [facility] Lymphocytes Percent Auto 20.0 20 - 40 % [facility] Monocytes Percent Auto 6.2 2 - 11 % [facility] Eosinophils Percent Auto 0.4 0 - 4 % [facility] Basophils Percent Auto 0.1 0 - 2 % [facility] NRBC Pct Auto 0.0 0.0 - 0.2 /100WBC [facility] Neutrophils Absolute Auto 5.5 2.0 - 8.3 x10*3/uL [facility] Imm Gran Abs Auto 0.02 0.00 - 0.03 X10*3/uL [facility] Lymphocytes Absolute Auto 1.5 1.2 - 4.9 X10*3/uL [facility] Monocytes Absolute Auto 0.5 0.1 - 1.2 X10*3/uL [facility] Eosinophils Absolute Auto 0.0 0.0 - 0.4 X10*3/uL [facility] Basophils Absolute Auto 0.0 0.0 - 0.2 X10*3/uL [facility] NRBC Abs Auto 0.000 0.0 - 0.012 X10*3/uL [facility] 09/06/2024 12:1 4 PM EST 09/06/2024 12:19 PM EST us Generic External Data Provider LAB BLOOD ORDERAB LES Final Result [facility] [address] [place], [place] [phone] * Urinalysis w/reflex microscopic (09/06/2024 12:14 PM EST) Color Urine Yellow [facility] Appearance Urine Clear [facility] PH 6.5 5.0 - 9.0 [facility] Glucose Urine UA Negative Negative mg/dL [facility] Urine Blood Negative Negative [facility] Specific [place] - Urine <=1.005 1.005 - 1.025 [facility] Urine Protein Negative Neg-Trace mg/dL [facility] Urine Ketones Negative Negative mg/dL [facility] Nitrite Urine Negative Negative [facility] Leukocyte Esterase Urine Negative Negative [facility] 09/06/2024 12:1 4 PM EST 09/06/2024 12:19 PM EST Narrative [facility] - 09/06/2024 12:23 PM EST Urine, Clean Catch us Generic External Data Provider LAB URINE ORDERAB LES Final Result Performing Organization Address City/State/[facility] Co de Phone Number [facility] [address] [place], [place] [phone] * XR Chest 2 Views (09/06/2024 11:57 AM EST) Anatomical Region Laterality Modality Chest Radiographic Maxine ging 09/06/2024 11:5 7 AM EST Narrative 09/06/2024 1:08 PM EST ? [facility] ?[address] ?[place] [address] ?XRay Report ? Signed ? Patient: Zain Welch ?MR# ?? : [id number] ? : 1965 ?Acct:[id number] ? Age/Sex: 58 / M ?ADM Date: 09/06/24 ? Loc: HO.ED ? Attending Dr: ? Ordering Physician: Haleigh Arora ?? Date of Service: 09/06/24 ?? Procedure(s): XR chest 2V ?? Accession Number(s): [id number] ? cc: Haleigh Arora; Amy Pickett MD [...] DD/ 1157 ? TD/TT: 09/06/24 1245 ? Production Analyst: ? Procedure Note Donjohnter, Image - 09/06/[address] [place] [address] [address] XRay Report Signed Patient: Zain Welch LMR# : [id number] : 1965Acct:[id number] Age/Sex: 58 / MADM Date: 09/06/24 Loc: HO.ED Attending Dr: Ordering Physician: Haleigh Arora Date of Service: 09/06/24 Procedure(s): XR chest 2V Accession Number(s): [id number] cc: Haleigh Arora; Amy Pickett MD EXAMINATION: [...] by: Terry Jesus MD 09/06/2024 01:05 PM [facility] Dictated By: Terry Jesus MD Signed By: <Electronically signed by Terry Jesus MD in OV> 09/06/24 1305 DD/ 1157 TD/TT: 09/06/24 1245 Production Analyst: [facility] External Provider IMG XR PROCEDURES Final Result documented in this encounter Visit Diagnoses Not on filedocumented in this encounter Additional Health Concerns Assessment Noted Time PHQ-9 Depression Total Score: 10 024 9:41 AM EDT documented as of this encounter Care Teams Exhibition Designer Relationship Specialty Start Date End Date Amy Pickett MD [address] [place] [phone] PCP - General Internal Medicine 04/07/23 documented as of this encounter
--- OUTSIDE RECORDS SUMMARY | 2024-09-29 17:48 | XMS_ITS | Encounter Summary ---
Author Organization [employer] Address [address] [place] [address] 7 [place] [address] Care Team Providers Care Big Data Admin Name Role Phone Elise Glover Primary Care Provider [phone] Amy Pickett MD Primary Care Pro vider Reason for Visit * Reason Onset Date Comments triage 08/22/2022 Encounter Details Date Type Department Care Team (Late st Contact Info) Description 08/22/2022 Telephone [facility] [address] [place] [address] Elise Glover FNP [address] [place] [address] [place] [address] triage Social History Tobacco Use Types Packs/Day [...] Description 10/26/2024 9:45 AM EDT Office Visit [address] [phone] 11/24/2024 2:15 PM EDT Office Visit [address] [address] Amy Pickett MD [address] [place] [address] [phone] documented as of this encounter Visit Diagnoses Not on filedocumented in this encounter Care Teams Big Data Admin Relationship Specialty Start Date End Date Elise Glover FNP PCP - General Family Medicine 07/09/22 04/06/23 Amy Pickett MD [address] [place] [phone] PCP - General Internal Medicine 04/07/23 documented as of this encounter
--- OUTSIDE RECORDS SUMMARY | 2024-09-29 17:48 | XMS_ITS | Encounter Summary ---
Author Organization [employer] Address [address] [facility] 7 [place] [address] Care Team Providers Care Social Secretary Name Role Phone Amy Pickett MD Primary Care Pro vider Reason for Visit * Reason Onset Date Comments Med Refill 08/06/2024 Encounter Details Date Type Department Care Team ([facility] st Contact Info) Description 08/06/2024 Telephone [facility] [address] [place], [place] [phone] Amy Pickett MD [address] [place], [place] [phone] Med Refill Social History Tobacco Use Types [...] 0.083% nebulizer solution To be sent to: [facility]/pharmacy #[id number] - [address] documented in this encounter Plan of Treatment Upcoming Encounters Date Type Department Care Team (Late st Contact Info) Description 10/26/2024 9:45 AM EDT Office Visit [facility] [address] [place] [address] 11/24/2024 2:15 PM EDT Office Visit [facility] [address] [place] [address] Amy Pickett MD [address] [place] [address] documented as of this encounter Visit Diagnoses Not on filedocumented in this encounter Additional Health Concerns Assessment Noted Time PHQ-9 Depression Total Score: 10 024 9:41 AM EDT documented as of this encounter Care Teams Social Secretary Relationship Specialty Start Date End Date Amy Pickett MD [address] [place] [address] PCP - General Internal Medicine 04/07/23 documented as of this encounter
--- OUTSIDE RECORDS SUMMARY | 2024-09-29 17:48 | XMS_ITS | Encounter Summary ---
Author Organization [employer] Address [address] [facility] [address]t [place] [address] Care Team Providers Care Residential Solar Sales Consultant Name Role Phone Amy Pickett MD Primary Care Pro vider Encounter Details Date Type Department Care Team (Late st Contact Info) Description 09/22/2024 6:20 PM EDT Office Visit [facility] [address] [place] [address] Brent Hanson MD [address] [place] [address] STD exposure (Primary Dx); Balanitis; Left hip pain Social History Tobacco Use Types Packs/Day Years [...] AM EDT documented as of this encounter Last Filed Vital Signs Vital Sign Reading [...] Mass Index 28.67 09/22/2024 5:52 PM EDT documented in this encounter Progress Notes * Brent Fischer MD - 09/22/2024 6:20 PM EDT Subjective Patient ID: Zain Lazcano is a 58 y.o. male who presents for No chief complaint on file.. Hip Pain The pain is present in the left hip. The quality of the pain is described as aching. The pain is jenny severity of 5/10. Pertinent negatives include no inability to bear weight, loss of motion, loss of sensation, muscle weakness, numbness or tingling. Review of Systems Neurological: Negative for tingling and numbness. Objective Physical Exam Constitutional: Appearance: Normal appearance. Musculoskeletal: General: Tenderness present. Neurological: General: No focal deficit present. Mental Status: He is alert and oriented to person, place, and time. Psychiatric: Mood and Affect: Mood normal. Behavior: Behavior normal. Assessment/Plan Problem List Items Addressed This Visit None Visit Diagnoses STD exposure - Primary No discharge, no dysuria, will order test Relevant Orders Chlamydia/N. Gonorrhoeae RNA, TMA, Urogenitial Syphilis Screen HIV-1/2 Antigen and Antibodies, Fourth Generation, with Reflexes Hepatitis C Antibody with Reflex to HCV, RNA, Quantitative, Real-Time PCR Balanitis Will provide clotrimazole Left hip pain Will start on prednisone call back if worsening documented in this encounter Plan of Treatment Upcoming Encounters Date Type Department Care Team (Late st Contact Info) Description 10/26/2024 9:45 AM EDT Office Visit [facility] [address] [place] [phone] 11/24/2024 2:15 PM EDT Office Visit [facility] [address] [place] [phone] Amy Pickett MD [address] [place] [address] [phone] Scheduled Orders Name Type Priority Associated Diagnoses Orde r Schedule Syphilis Screen Lab Routine STD exposure Expected: 09/22/2024, Expires: 09/22/2025 HIV-1/2 Antigen and Antibodies, Fourth Generation, with Reflexes Lab Routine STD exposure Expected: 09/22/2024 (Approximate), Expires: 09/22/2025 Hepatitis C Antibody with Reflex to HCV, RNA, Quantitative, Real-Time PCR Lab Routine STD exposure Expected: 09/22/2024, Expires: 09/22/2025 documented as of this encounter Procedures Procedure Name Priority Date/Time Associated Diagnosis Comments CHLAMYDIA/N. GONORRHOEAE RNA, TMA, UROGENITAL Routine 09/22/2024 4:24 PM EDT STD exposure documented in this encounter Results * Chlamydia/N. Gonorrhoeae RNA, TMA, Urogenitial (09/22/2024 4:24 PM EDT) CT PCR NOT DETECTED Not Detect. [facility] Comment:A not detected test result does [...] psychologicalconsequences. NG PCR NOT DETECTED Not Detect. [facility] Comment:A not detected test result does [...] PM EDT 09/23/2024 12:42 PM EDT Narrative [facility] - 09/23/2024 3:01 PM EDT Urine us Brent Fischer MD LAB MICROBIOLOGY - GENERAL ORDERABLES Final Result [facility] [address] [place] [address] [phone] documented in this encounter Visit Diagnoses Diagnosis STD exposure- Primary Balanitis Balanoposthitis Left hip pain Pain in joint, pelvic region and thigh documented in this encounter Additional Health Concerns Assessment Noted Time PHQ-9 Depression Total Score: 10 024 9:41 AM EDT documented as of this encounter Care Teams Residential Solar Sales Consultant Relationship Specialty Start Date End Date Amy Pickett MD [address] [place] [phone] PCP - General Internal Medicine 04/07/23 documented as of this encounter
--- OUTSIDE RECORDS SUMMARY | 2024-09-29 17:48 | XMS_ITS | Encounter Summary ---
Author Organization [employer] Address [address] [facility] 7 [place] [address] Care Team Providers Care Fur Dresser Name Role Phone Amy Pickett MD Primary Care Pro vider Reason for Visit * Reason Onset Date Comments Appointment Request 09/02/2023 Encounter Details Date Type Department Care Team ([facility] st Contact Info) Description 09/02/2023 Telephone [facility] [address] [place], [place] [phone] Amy Pickett MD [address] [place], [place] [phone] Appointment Request Social History Tobacco Use Types [...] from pt requesting a transfer patient appointment. Tailer In does not see any availability. Pt states he needs appointment as soon as possible due to controlled medication. States needs to be seen bya new provider to continue medication. Please contact pt at [phone] documented in this encounter Plan of Treatment Upcoming Encounters Date Type Department Care Team (Late st Contact Info) Description 10/26/2024 9:45 AM EDT Office Visit [facility] [address] [place] [phone] 11/24/2024 2:15 PM EDT Office Visit [facility] [address] [place] [address] Amy Pickett MD [address] [place] [phone] documented as of this encounter Visit Diagnoses Not on filedocumented in this encounter Additional Health Concerns Assessment Noted Time PHQ-9 Depression Total Score: 24 023 10:05 AM EDT documented as of this encounter Care Teams Fur Dresser Relationship Specialty Start Date End Date Amy Pickett MD [address] [place] [phone] PCP - General Internal Medicine 04/07/23 documented as of this encounter
--- OUTSIDE RECORDS SUMMARY | 2024-09-29 17:48 | XMS_ITS | Encounter Summary ---
Author Organization [employer] Address 75 [facility] 7 [place] [address] Care Team Providers Care Special Education Paraprofessional Name Role Phone Amy Pickett MD Primary Care Pro vider Reason for Visit * Reason Onset Date Comments Med Refill 05/13/2024 Encounter Details Date Type Department Care Team ([facility] st Contact Info) Description 05/13/2024 Telephone [facility] [address] [place], [place] [phone] Amy Pickett MD [address] [place], [place] [phone] Med Refill Social History Tobacco Use Types [...] immediate release tablet To be sent to: [facility]/pharmacy #[id number] - [place], [place] - [address] [place] [address] documented in this encounter Plan of Treatment Upcoming Encounters Date Type Department Care Team (Late st Contact Info) Description 10/26/2024 9:45 AM EDT Office Visit [facility] [address] [place] [address] [phone] 11/24/2024 2:15 PM EDT Office Visit [facility] [address] [place] [phone] Amy Pickett MD [address] [place] [address] documented as of this encounter Visit Diagnoses Not on filedocumented in this encounter Additional Health Concerns Assessment Noted Time PHQ-9 Depression Total Score: 10 024 9:41 AM EDT documented as of this encounter Care Teams Special Education Paraprofessional Relationship Specialty Start Date End Date Amy Pickett MD [address] [place] [phone] PCP - General Internal Medicine 04/07/23 documented as of this encounter
--- OUTSIDE RECORDS SUMMARY | 2024-09-29 17:48 | XMS_ITS | Encounter Summary ---
Author Organization [employer] Address 75 [facility] 7 [place] [address] Care Team Providers Care Trust Vault Clerk Name Role Phone Amy Pickett MD Primary Care Pro vider Reason for Visit * Reason Onset Date Comments Durable Medical Equipment 09/06/2024 Boost recert Encounter Details Date Type Department Care Team ([facility] st Contact Info) Description 09/06/2024 Telephone [facility] [address] [place] [address] Amy Pickett MD [address] [place] [address] Durable Medical Equipment (Boost recert) Social History [...] encounter Miscellaneous Notes * Telephone Encounter - Alejandro Monroe [place] - 09/07/2024 10:11 AM EST Form has been signed by PCP and faxed to [facility]. Form is sent in for scanning. * Telephone Encounter - Olamide Chavez - 09/06/2024 12:16 PM EST Confirmation of order for Boost from [employer] received and placed on covering PCP/Sharad desk for signature. documented in this encounter Plan of Treatment Upcoming Encounters Date Type Department Care Team (Late st Contact Info) Description 10/26/2024 9:45 AM EDT Office Visit [facility] [address] [place] [address] 11/24/2024 2:15 PM EDT Office Visit [facility] [address] [place] [address] Amy Pickett MD [address] [place] [address] documented as of this encounter Visit Diagnoses Not on filedocumented in this encounter Additional Health Concerns Assessment Noted Time PHQ-9 Depression Total Score: 10 024 9:41 AM EDT documented as of this encounter Care Teams Trust Vault Clerk Relationship Specialty Start Date End Date Amy Pickett MD [address] [place] [address] PCP - General Internal Medicine 04/07/23 documented as of this encounter
--- OUTSIDE RECORDS SUMMARY | 2024-09-29 17:48 | XMS_ITS | Encounter Summary ---
Author Organization [employer] Address [address] [facility] [address] [place] [address] Care Team Providers Care Beater Lead Name Role Phone Amy Pickett MD Primary [...] Description 10/26/2024 9:45 AM EDT Office Visit [facility] [address] [place] [phone] 11/24/2024 2:15 PM EDT Office Visit [facility] [address] [place] [phone] Amy Pickett MD [address] [place] [phone] documented as of this encounter Visit Diagnoses Not on filedocumented in this encounter Additional Health Concerns Assessment Noted Time PHQ-9 Depression Total Score: 10 024 9:41 AM EDT documented as of this encounter Care Teams Beater Lead Relationship Specialty Start Date End Date Amy Pickett MD [address] [place] [phone] PCP - General Internal Medicine 04/07/23 documented as of this encounter
--- OUTSIDE RECORDS SUMMARY | 2024-09-29 17:48 | XMS_ITS | Encounter Summary ---
Author Organization [employer] Address [address] [place] [address] 7 [place] [address] Care Team Providers Care Advocacy Director Name Role Phone Elise Glover Primary Care Provider [phone]- [phone] Amy Pickett MD Primary Care Pro vider Reason for Visit * Reason Comments Med Change Request Encounter Details Date Type Department Care Team (Late st Contact Info) Description 03/03/2023 Refill [facility] [address] [place] [address] Elise Glover FNP [address] [place] [address] [place] [address] Essential hypertension Social History Tobacco Use Types [...] Description 10/26/2024 9:45 AM EDT Office Visit [facility] [address] [place] [address] 11/24/2024 2:15 PM EDT Office Visit [address] [address] Amy Pickett MD [address] [place] [address] documented as of this encounter Visit Diagnoses Diagnosis Essential hypertension Unspecified essential hypertension documented in this encounter Additional Health Concerns Assessment Noted Time PHQ-9 Depression Total Score: 24 023 10:05 AM EDT documented as of this encounter Care Teams Advocacy Director Relationship Specialty Start Date End Date Elise Glover FNP PCP - General Family Medicine 07/09/22 04/06/23 Amy Pickett MD [address] [place] [phone] PCP - General Internal Medicine 04/07/23 documented as of this encounter
--- OUTSIDE RECORDS SUMMARY | 2024-09-29 17:48 | XMS_ITS | Encounter Summary ---
Author Organization [employer] Address [address] [facility] [address] 7t [place] [address] Care Team Providers Care Business Objects Report Developer Name Role Phone Amy Pickett MD Primary Care Pro vider Encounter Details Date Type Department Care Team (Latest Contact Info) Description 09/28/2024 Travel Social History Tobacco Use Types Packs/Day [...] Description 10/26/2024 9:45 AM EDT Office Visit [facility] [address] [place] [address] 11/24/2024 2:15 PM EDT Office Visit [facility] [address] [place] [address] Amy Pickett MD [address] [place] [address] documented as of this encounter Visit Diagnoses Not on filedocumented in this encounter Additional Health Concerns Assessment Noted Time PHQ-9 Depression Total Score: 10 024 9:41 AM EDT documented as of this encounter Care Teams Business Objects Report Developer Relationship Specialty Start Date End Date Amy Pickett MD [address] [place] [phone] PCP - General Internal Medicine 04/07/23 documented as of this encounter
--- OUTSIDE RECORDS SUMMARY | 2024-09-29 17:48 | XMS_ITS | Encounter Summary ---
Author Organization [employer] Address [address] [facility] 7t [place] [address] Care Team Providers Care Shipping Hand Name Role Phone Amy Pickett MD Primary Care Pro vider Encounter Details Date Type Department Care Team (Late st Contact Info) Description 09/01/2024 Telephone [facility] [address] [place], [place] [phone] Amy Pickett MD 230 [place], [place] [phone] Social History Tobacco Use Types Packs/Day Years [...] Description 10/26/2024 9:45 AM EDT Office Visit [facility] [address] [place] [address] 11/24/2024 2:15 PM EDT Office Visit [facility] [address] [place] [address] Amy Pickett MD [address] [place] [address] documented as of this encounter Visit Diagnoses Not on filedocumented in this encounter Additional Health Concerns Assessment Noted Time PHQ-9 Depression Total Score: 10 024 9:41 AM EDT documented as of this encounter Care Teams Shipping Hand Relationship Specialty Start Date End Date Amy Pickett MD [address] [place] [phone] PCP - General Internal Medicine 04/07/23 documented as of this encounter
--- OUTSIDE RECORDS SUMMARY | 2024-09-29 17:48 | XMS_ITS | Encounter Summary ---
Author Organization [employer] Address [address] [facility] 7t [place] [address] Care Team Providers Care Application Support Consultant Name Role Phone Amy Pickett MD Primary Care Pro vider Encounter Details Date Type Department Care Team (Late st Contact Info) Description 09/28/2024 Refill [facility] [address] [place], [place] [phone] Amy Pickett MD 230 [place], [place] [phone] Chronic pain of both knees; Chronic low [...] as of this encounter Miscellaneous Notes * Addendum Note - Sandy Paz RN - 09/28/2024 2:19 PM EDTAddended by: SANDY PAZ on: 09/28/2024 02:19 PM Modules accepted: Orders * Telephone Encounter - Neetu Mckenzie - 09/28/2024 1:33 PM EDT Pt called [facility] requesting a refill on oxycodone , pt also stated he needs nurses to give him a call due to result . documented in this encounter Plan of Treatment Upcoming Encounters Date Type Department Care Team (Late st Contact Info) Description 10/26/2024 9:45 AM EDT Office Visit [address] [phone] 11/24/2024 2:15 PM EDT Office Visit [facility] [address] [place] [address] Amy Pickett MD [address] [place] [address] documented as of this encounter Visit Diagnoses Diagnosis Chronic pain of both knees Chronic low back pain, unspecified back pain laterality, unspecified whether sciatica present documented in this encounter Additional Health Concerns Assessment Noted Time PHQ-9 Depression Total Score: 10 024 9:41 AM EDT documented as of this encounter Care Teams Application Support Consultant Relationship Specialty Start Date End Date Amy Pickett MD 230 [place] [address] PCP - General Internal Medicine 04/07/23 documented as of this encounter
--- OUTSIDE RECORDS SUMMARY | 2024-09-29 17:48 | XMS_ITS | Encounter Summary ---
Author Organization [employer] Address [address] [facility] [address] 7t [place] [address] Care Team Providers Care Plate Mill Hand Name Role Phone Amy Pickett MD Primary Care Pro vider Encounter Details Date Type Department Care Team (Late st Contact Info) Description 06/24/2024 Orders Only [facility] 230 [place] [address] ProviderBryan MD Social History Tobacco Use Types [...] Description 10/26/2024 9:45 AM EDT Office Visit [facility] [address] [place] [address] 11/24/2024 2:15 PM EDT Office Visit [facility] [address] [place] [address] Amy Pickett MD [address] [place] [address] documented as of this encounter Procedures Procedure [...] documented as of this encounter Care Teams Plate Mill Hand Relationship Specialty Start Date End Date Amy Pickett MD [address] [place] [phone] PCP - General Internal Medicine 04/07/23 documented as of this encounter
--- OUTSIDE RECORDS SUMMARY | 2024-09-29 17:48 | XMS_ITS | Encounter Summary ---
Author Organization [employer] Address [address] [facility] 7 [place] [address] Care Team Providers Care Wire Rope Sales Representative Name Role Phone Amy Pickett MD Primary Care Pro vider Reason for Visit * Reason Onset Date Comments Med Refill 02/11/2024 Encounter Details Date Type Department Care Team ([facility] st Contact Info) Description 02/11/2024 Telephone [facility] 230 [place], [place] [phone] Amy Pickett MD 230 [place], [place] [phone] Med Refill Social History Tobacco Use Types [...] immediate release tablet To be sent to: [id number] - [address] documented in this encounter Plan of Treatment Upcoming Encounters Date Type Department Care Team (Late st Contact Info) Description 10/26/2024 9:45 AM EDT Office Visit [facility] [address] [place] [address] 11/24/2024 2:15 PM EDT Office Visit [facility] [address] [place] [address] Amy Pickett MD [address] [place] [phone] documented as of this encounter Visit Diagnoses Not on filedocumented in this encounter Additional Health Concerns Assessment Noted Time PHQ-9 Depression Total Score: 24 10/01/ 023 10:05 AM EDT documented as of this encounter Care Teams Wire Rope Sales Representative Relationship Specialty Start Date End Date Amy Pickett MD [address] [place] [phone] PCP - General Internal Medicine 04/07/23 documented as of this encounter
--- OUTSIDE RECORDS SUMMARY | 2024-09-29 17:48 | XMS_ITS | Encounter Summary ---
Author Organization [employer] Address 75 [facility] 7 [place] [address] Care Team Providers Care Soils Technician Name Role Phone Amy Pickett MD Primary Care Pro vider Reason for Visit * Reason Comments Med Refill Encounter Details Date Type Department Care Team ([facility] st Contact Info) Description 06/17/2024 Refill [facility] 230 [place], [place] [phone] Amy Pickett MD 230 [place] [address] Social History Tobacco Use Types Packs/Day Years [...] Description 10/26/2024 9:45 AM EDT Office Visit [facility] [address] [place] [address] 11/24/2024 2:15 PM EDT Office Visit [facility] [address] [place] [address] Amy Pickett MD [address] [phone] documented as of this encounter Visit Diagnoses Not on filedocumented in this encounter Additional Health Concerns Assessment Noted Time PHQ-9 Depression Total Score: 10 024 9:41 AM EDT documented as of this encounter Care Teams Soils Technician Relationship Specialty Start Date End Date Amy Pickett MD [address] [place] [address] PCP - General Internal Medicine 04/07/23 documented as of this encounter
--- OUTSIDE RECORDS SUMMARY | 2024-09-29 17:48 | XMS_ITS | Encounter Summary ---
Author Organization [employer] Address [address] [facility] [address] 7t [place] [address] Care Team Providers Care Bioinformatics Scientist Name Role Phone Amy Pickett MD Primary Care Pro vider Reason for Visit * Reason Comments dizziness and weak Encounter Details Date Type Department Care Team ([facility] st Contact Info) Description 09/07/2024 9:20 AM EST Office Visit [facility] [address] [place] [address] [phone] Bri Noriega MD [address] [place] [address] [phone] Viral infection Social History Tobacco Use Types Packs/Day Years [...] Sign Reading Time Taken Comments Blood Pressure 156/80 09/07/2024 9:26 AM EST Pulse 80 09/07/2024 9:26 AM EST Temperature 37.2 ??C (98.9 ??F) 09/07/2024 9:26 AM ES T Respiratory Rate 17 09/07/2024 9:26 AM EST Oxygen Saturation 97% 09/07/2024 9:26 AM EST Inhaled Oxygen Concentration - - Weight 77.9 kg (171 lb 12.8 oz) 09/07/2024 9:26 AM EST Height - - Body Mass Index 29.49 05/14/2024 10:23 AM EST documented in this encounter Progress Notes * Baltazar Stokes - 09/07/2024 9:20 AM EST Subjective Patient ID: Zain Lazcano is a 58 y.o. male with past medical history of depression, anxiety, panic attacks, HLD, hypertension, COPD, gout, rheumatoid arthritis, asthma, STEPHON, and insomnia who presents to walk in clinic for dizziness and weak. Upon review of chart history, pt does report hx of dizziness and has been seen in the ED multiple times for dizziness for multiple years. Has been dx with hypotension and bradycardia. Pt has hx of headaches, dizziness, and fatigue that dates back to 2010 with unknown etiology. Pt reports he went to the ED yesterday due to feeling clamy , dizziness and tingling. He reports he was at [facility]. Had labs done that were largely unremarkable. Troponin negative, CXR normal and COVID negative. Pt reports yesterday at the hospital his HR was low. Vitals currently stable.He denies any over medication. reports she took his vitals yesterday, pt was shaking, BP was elevated, HR was 63 and pt was shaking and out of this world . He does not remember this. She notes he also appeared pale. Pt reports he does feel slightly better today. He notes he has been coughing slightly. Pt also notes he has had some episodes of diarrhea. Review of Systems Constitutional: Negative for fever and unexpected weight change. Respiratory: Negative for shortness of breath. Cardiovascular: Negative for chest pain. Gastrointestinal: Negative for abdominal pain. Genitourinary: Negative for difficulty urinating. Objective Visit Vitals BP (!) 156/80 (BP Location: Left arm, Patient Position: Sitting, BP Cuff Size: Adult) Pulse 80 Temp 98.9 ??F (37.2 ??C) (Temporal) Resp 17 Body mass index is 29.49 kg/m??. Physical Exam Constitutional: Appearance: Normal appearance. HENT: Right Ear: Tympanic membrane normal. Left Ear: Tympanic membrane normal. Mouth/Throat: Pharynx: Oropharynx is clear. No oropharyngeal exudate. Eyes: Conjunctiva/sclera: Conjunctivae normal. Cardiovascular: Rate and Rhythm: Normal rate and regular rhythm. Pulses: Normal pulses. Heart sounds: Normal heart sounds. Pulmonary: Effort: Pulmonary effort is normal. No respiratory distress. Breath sounds: Normal breath sounds. Transmitted upper airway sounds present. Musculoskeletal: Cervical back: Normal range of motion. Neurological: Mental Status: He is alert. Psychiatric: Behavior: Behavior normal. Problem List Items Addressed This Visit Viral infection COVID and Flu negative. No evidence of respiratory distress. Symptoms mild. No evidence of dehydration. Suspect viral infection with associated mild dehydration. Differential diagnosis also includes BPV, neurological versus cardio process, and medications that could be contributing gabapentin, oxyco done, xanax, and tamsulosin. -Recommended seeing PCP and enquiring about switching some medications since risk of syncope. -Adequate hydration recommended. -Supportive care advised. -Isolation recommendations discussed. Relevant Orders POCT Influenza A manually resulted (Completed) POCT Influenza B manually resulted (Completed) POCT Rapid COVID Ag (Completed) -No evidence of acute disease process. Suspect underlying viral infection that is manifesting symptoms . Symptoms mild. -Recommended supportive care and following up with PCP. -ER precautions discussed. -Seek medical attention for worsening symptoms. I, Baltazar Stokes, am serving as a scribe to document services personally performed by Dr. Koch, based on the patient's response to questions by provider and providers statements to me. documented in this encounter Miscellaneous Notes * Assessment & Plan Note - Baltazar Stokes - 09/07/2024 10:06 AM ESTAssociated Problem(s): Viral infection COVID and Flu negative. No evidence of respiratory distress. Symptoms mild. No evidence of dehydration. Suspect viral infection with associated mild dehydration. Differential diagnosis also includes BPV, neurological versus cardio process, and medications that could be contributing gabapentin, oxyco done, xanax, and tamsulosin. -Recommended seeing PCP and enquiring about switching some medications since risk of syncope. -Adequate hydration recommended. -Supportive care advised. -Isolation recommendations discussed. documented in this encounter Plan of Treatment Upcoming Encounters Date Type Department Care Team (Late st Contact Info) Description 10/26/2024 9:45 AM EDT Office Visit [facility] [address] [place] [address] [phone] 11/24/2024 2:15 PM EDT Office Visit [facility] [address] [place] [address] Amy Pickett MD [address] [place] [phone] documented as of this encounter Procedures Procedure Name Priority Date/Time Associated Diagnosis Comments POCT INFLUENZA A Routine 09/07/2024 10:0 1 AM EST Viral infection POCT INFLUENZA B Routine 09/07/2024 9:53 AM EST Viral infection POCT RAPID COVID ANTIGEN Routine 09/07/2024 9:52 AM EST Viral infection documented in this encounter Results * POCT Influenza A manually resulted (09/07/2024 10:01 AM EST) [facility] Rapid Influenza A Ag Negative Negative, Indeterminate QC Media Lot # [id number] Lot# Expiration Date 100,826 Swab Nasopharyngeal structure / Unknown 09/07/2024 10:01 AM EST us Bri Noriega MD POINT OF CARE TEST ENTER/E DIT ORDERABLES Final Result * POCT Influenza B manually resulted (09/07/2024 9:53 AM EST) [facility] Rapid Influenza B Ag Negative Negative, Indeterminate QC Media Lot # [id number] Lot# Expiration Date 100,826 Swab 09/07/2024 9:53 AM EST us Bri Noriega MD POINT OF CARE TEST ENTER/E DIT ORDERABLES Final Result * POCT Rapid COVID Ag (09/07/2024 9:52 AM EST) [facility] Rapid COVID Ag Negative QC Media Lot # [id number] Lot# Expiration Date 91,426 Swab 09/07/2024 9:52 AM EST us Bri Noriega MD POINT OF CARE TEST ENTER/E DIT ORDERABLES Final Result documented in this encounter Visit Diagnoses Diagnosis Viral infection documented in this encounter Additional Health Concerns Assessment Noted Time PHQ-9 Depression Total Score: 10 03/12/ 024 9:41 AM EDT documented as of this encounter Care Teams Bioinformatics Scientist Relationship Specialty Start Date End Date Amy Pickett MD [address] [place] [address] PCP - General Internal Medicine 04/07/23 documented as of this encounter
--- OUTSIDE RECORDS SUMMARY | 2024-09-29 17:48 | XMS_ITS | Encounter Summary ---
Author Organization [employer] Address 75 [facility] 7 [place] [address] Care Team Providers Care Basket Operator Name Role Phone Amy Pickett MD Primary Care Pro vider Reason for Visit * Reason Onset Date Comments Med Refill 09/01/2024 Encounter Details Date Type Department Care Team (Late st Contact Info) Description 09/01/2024 Refill [facility] [address] [place] [address] Amy Pickett MD [address] [place], [place] [phone] Chronic pain of both knees; Chronic low [...] immediate release tablet To be sent to: [facility][id number] - [address] documented in this encounter Plan of Treatment Upcoming Encounters Date Type Department Care Team (Late st Contact Info) Description 10/26/2024 9:45 AM EDT Office Visit [facility] [address] [place] [address] 11/24/2024 2:15 PM EDT Office Visit [facility] [address] [place] [address] Amy Pickett MD [address] [place] [phone] documented as of this encounter Visit Diagnoses Diagnosis Chronic pain of both knees Chronic low back pain, unspecified back pain laterality, unspecified whether sciatica present documented in this encounter Additional Health Concerns Assessment Noted Time PHQ-9 Depression Total Score: 10 024 9:41 AM EDT documented as of this encounter Care Teams Basket Operator Relationship Specialty Start Date End Date Amy Pickett MD [address] [place] [address] PCP - General Internal Medicine 04/07/23 documented as of this encounter
--- OUTSIDE RECORDS SUMMARY | 2024-09-29 17:48 | XMS_ITS | Encounter Summary ---
Author Organization [employer] Address 75 [facility] 7t [place] [address] Care Team Providers Care Court Specialist Name Role Phone Amy Pickett MD Primary Care Pro vider Reason for Visit * Reason Onset Date Comments [employer] 09/07/2024 B oost, strawberry tetra brik 8oz () Encounter Details Date Type Department Care Team (Late st Contact Info) Description 09/07/2024 Telephone [facility] [address] [place], [place] [phone] Amy Pickett MD [address] [place], [place] [phone] [employer] (Boost, strawberry tetra brik 8oz ()) Social History Tobacco Use Types Packs/Day Years [...] * Telephone Encounter - Olamide Chavez - 09/14/2024 8:49 AM EDT Confirmation of order for Boost signed and faxed to [employer] . Confirmation received and sent to scan. If patient calls to check status on above, please advise them to contact [employer] at [phone]. * Telephone Encounter - Alejandro Monroe MA - 09/07/2024 1:01 PM EST Received medical necessity form from [employer] for Boost, strawberry tetra brik. Form is filled out and placed on PCP desk for signature. documented in this encounter Plan of Treatment Upcoming Encounters Date Type Department Care Team (Late st Contact Info) Description 10/26/2024 9:45 AM EDT Office Visit [facility] [address] [place] [address] 11/24/2024 2:15 PM EDT Office Visit [address] [address] Amy Pickett MD [address] [place] [address] documented as of this encounter Visit Diagnoses Not on filedocumented in this encounter Additional Health Concerns Assessment Noted Time PHQ-9 Depression Total Score: 10 024 9:41 AM EDT documented as of this encounter Care Teams Court Specialist Relationship Specialty Start Date End Date Amy Pickett MD [address] [place] [phone] PCP - General Internal Medicine 04/07/23 documented as of this encounter
--- OUTSIDE RECORDS SUMMARY | 2024-09-29 17:48 | XMS_ITS | Clinical Summary ---
Author Organization [facility] Address [address] [place] [address] Care Team Providers Care Personal Loan Specialist Name Role Phone Ba Maria MD Primary Care Provider Surgical History Surgery Date Site/Laterality Comments FOOT SURGERY PROCEDURE: [place] UNLISTED PROCEDURE FOOT/TOES; COMMENT: left foot bunion removal LIPOMA RESECTION PROCEDURE: SKIN TISSUE EXCISION(LIPOMA) OTHER SURGICAL HISTORY PROCEDURE: ---- OTHER ----; COMMENT: urethral surgeries done? three times in [facility] for difficulty urinating Medical History Medical History Date Comments Chronic back pain DX:Chronic alonso k pain Asthma DX:Asthma Anxiety DX:Anxiety; COMM ENT: follows at [facility] psychiatry Family History Medical History [...] age to complete this topic Care Teams Personal Loan Specialist Relationship Specialty Start Date End Date Ba Maria MD PCP - General Internal Medicine 10/26/12
== END 2024-09-29 15:29 | disposition home or self-care (01) ==
LOC: HO.HCS 14:52
PROVIDERS: PCP Student in an Organized Health Care Education/Training Program; Visit Provider Internal Medicine
DX: R07.9 Chest pain, unspecified (principal)
CPT/HCPCS: 93010; 99213

== ENCOUNTER 2024-09-29 14:52 | Outpatient (REF) | payer OTHER, SELFPAY ==
[2024-09-29 16:27] LABS: Alanine Aminotransferase 21 U/L (0-40); Albumin Level 4.2 g/dL (3.5-5.0); Alkaline Phosphatase 92 U/L (39-117); Anion Gap 10 (12-20); Aspartate Amino Transferase 15 U/L (5-37); Bilirubin Total 0.3 mg/dL (0.0-1.0); Blood Urea Nitrogen 21 mg/dL (9-16); C Reactive Protein 0.18 mg/dL (< or = 0.50); Calcium 9.7 mg/dL (8.4-10.2); Carbon Dioxide 26 mmol/L (22-29); Chloride 109 mmol/L (96-108); Cholesterol 211 mg/dL (<200); Estimated Glomerular Filt Rate > 60; Glucose Random 108 mg/dL (60-115); HDL Cholesterol 49 mg/dL (>40); LDL Cholesterol Calculated 131 mg/dL (<100); Potassium 4.5 mmol/L (3.3-5.1); Sodium 140 mmol/L (135-145); Triglycerides 155 mg/dL (<150)
[2024-09-29 16:55] LABS: Folate 7.6 ng/mL (> or = 4.0); Vitamin B12 338 pg/mL (200-900)
[2024-09-30 04:21] LABS: Syphilis Screen Nonreactive (Nonreactive)
[2024-09-30 04:49] LABS: HIV AB/AG Nonreactive (Nonreactive); HIV Num 1 0.08 S/CO (0.00-0.99); ~HepC Num1 1.23 S/CO (0.00-0.79); ~Hepatitis C Antibody Reactive (Nonreactive)
[2024-09-30 05:59] LABS: CT PCR NOT DETECTED (Not Detect.); NG PCR NOT DETECTED (Not Detect.)
[2024-10-01 15:13] LABS: HCV Log PCR <1.18 NOT DETECTED Log IU/mL (NOT DETECTED); HepC Viral Load <15 NOT DETECTED IU/mL (NOT DETECTED)
== END 2024-09-29 14:53 | disposition home or self-care (01) ==
LOC: HO.LAB 14:52
PROVIDERS: Absent Provider Internal Medicine; PCP Student in an Organized Health Care Education/Training Program; Visit Provider Internal Medicine
DX: R07.9 Chest pain, unspecified (principal); E78.5 Hyperlipidemia, unspecified; Z20.2 Contact with and (suspected) exposure to infections with a predominantly sexual mode of transmission
CPT/HCPCS: 36415; 80053; 80061; 82607; 82746; 86140; 86780; 86803; 87389; 87491; 87522; 87591; 93005; 99212

== ENCOUNTER 2024-10-14 09:16 | Outpatient (AMB) | payer OTHER, SELFPAY ==
[2024-10-14 09:21] VITALS: BP 150/82; PULSE 79; O2SAT 98; BMI 29.9
--- NOTE | 2024-10-14 09:21 | A.OFFVIS_ITS ---
Vital Signs 10/14/24 09:21 Height 5 ft 4 in Weight 174 lb 2.643 oz BMI 29.9 BP 150/82 H Blood Pressure Location Rt brachial Position Sitting Pulse 79 Pulse Source Pulse Oximeter Pulse Oximetry (%) 98 Oxygen Delivery Method Room Air Intake Visit Reasons: Sleep apnea Allergies cat dander [CATS] Allergy (Unknown, Verified 10/14/24 09:26) UNKNOWN dog dander [DOGS] Allergy (Unknown, Verified 10/14/24:) UNKNOWN pollen extracts [POLLEN] Allergy (Unknown, Verified 10/14/24:) UNKNOWN tree and shrub pollen Allergy (Verified 10/14/24:) sneeze ibuprofen Adverse Reaction (Verified 10/14/24) causes stomach to bleed HPI Comments Details: The patient is a 58-year-old gentleman with a known history of tobacco dependency in addition to COPD who apparently was being evaluated for cardiac disease. The patient did undergo a CT of the coronary arteries at [facility]. It actually demonstrated a density within the left mainstem bronchus resulting in a partial obstruction of the airway. Subsequently also has some haziness and irregularities to the left lower lobe parenchyma. Based on the abnormality he was referred to Pulmonary. The patient does complaint increased cough and also complains of left-sided chest discomfort. On further questions he does have a history of shingles in the past. The skin is very sensitive suggesting of dermatomal distribution likely from post herpetic neuralgia. Other new neuropathies may be in differential. The patient has a hard time sleeping because of the pain therefore a Lidoderm patch may be helpful and modulating some of the discomfort. Patient also takes gabapentin. Although he becomes significantly drowsy. The patient also has a history of sleep apnea. He has had CPAP in the past but was not able to use it appropriately so therefore was taken away. He does have significant daytime drowsiness. His [place] score is elevated 12/24. Sometimes 20 takes the gabapentin sleeps for 10-12 hours. Therefore, he does not take it every time based on the findings on CT scan that I personally reviewed with the patient the best option would be to visualize the airways with bronchoscopy. The patient also will need a formal CT scan of the chest that will further request in the near future. 10/31/2022 the patient is here for a pulmonary follow-up visit. Overall the patient has been doing relatively well. He still has daytime drowsiness. He has severe headaches in the morning. The patient did have a home sleep study which we reviewed which demonstrated an AHI of 4 in addition to a pulse ox of 76% and he spent about 30 minutes below 88%. It was a difficult study based on the fact that the patient noticed that the equipment was turning on and off. It is unclear how accurate this is. However, in view of his hypoxia and his daytime drowsiness with severe headaches I will request an in-lab study to get a better accurate reading. The patient also underwent a bronchoscopy to follow- up the abnormal findings of the left lower lobe area. The patient did have significant purulent secretions that were suction. His cultures were positive for E coli. He was treated with antibiotics but only partially helped him. Will go ahead and give him a 2nd course to make sure that we complete eradicated. I also talked about him making sure that he sleeps elevated to maintain and avoid micro aspirations. He can try also mouthwash with chlorhexidine for 2 weeks to minimize anaerobic colonization of the teeth and micro aspirations into the lungs. 04/28/2024 the patient is here for a pulmonary follow-up visit. Overall the patient has been doing okay. He does have significant headaches a lot 11 can be severe. Also daytime drowsiness with an elevated [place] score 12/24. He did undergo an in-lab sleep study at [facility] since he had nocturnal hypoxia. However, we are still waiting for the results. It is likely that he will need some type of PAP therapy if not oxygen. Once I get the report I will let him know. In the meantime he did have a repeat CT scan of the chest which was personally by me. Unfortunately has not been officially read as of yet although has been a few weeks. It appears that he does have still has some nodular changes to the airways although not significant. The patient is status post bronchoscopy demonstrating no endobronchial lesions. He continues uses respiratory therapy. Has multiple inhalers. He complains of wheezing. Moderate severity. I do believe that he will do better in a easier regimen in this case Trelegy to allow him to get his medications with better adherence. 07/12/2024 the patient is here for a pulmonary follow-up visit. Overall he has multiple complaints. He has been using the CPAP. CPAP therapy is affecting beneficial. Although he does wake up short of breath with it like his bothering him and he does take it off. Sometimes he is not able to complete the 4 hours because he gets upset because is causing him to have worsening shortness of breath. In the meantime he also complains of headaches. He was hoping that the CPAP would take away the headaches. He has not gotten supplies from his regional company. Will go ahead and request supplies for him. In the meantime I did decrease the pressures from 6-16 to 6-13 since his average pressure is around 13 cm and his AHI is at 0.8. Therefore he will try the pressure change then call me if he has any issues. The patient also did not like the Trelegy because then like the taste. [facility] Will go ahead and do that. He is still having significant back pain he does follow- up with pain management and [facility] He is struggles with that issue and also struggles with insomnia. Will go ahead and request an overnight oximetry on CPAP to make sure that he does not need any additional oxygen supplementation with CPAP specially because is ongoing headaches. 10/14/2024 the patient is here for a pulmonary follow-up visit. Been having hard time. Complains of some chest pain and knee pain. Over breathing has been acting up. Complains of chest tightness and wheezing. Moderate severity. Has been having hard time sleeping because of it. Otherwise he does continue to use his CPAP every night. CPAP therapy continues to be affecting beneficial. He does use it for more than 4 hours. He the Trelegy because he does not like the taste. But for now will go ahead and start him on nebulized therapy that I do believe more relief. The patient does to be placed on prednisone. Will go Solu-Medrol some quick relief. Also to note he did have a full cardiac workup will be referring and does not appear that the chest pain is cardiac nature. Indeed he may be experiencing some bronchospasms and for musculoskeletal issues. [facility] [place] Medical History (Updated 10/14/24 @ 20:44 by Javier Maldonado MD) Chest pain Nicotine dependence, cigarettes, uncomplicated Nausea and vomiting Dyspnea Photophobia Headache Syncope Dysphagia Seizure Lipoma of back STEPHON (obstructive sleep apnea) COPD (chronic obstructive pulmonary disease) Post herpetic neuralgia Multiple lipomas Osteoarthritis Gout History of peptic ulcer disease Hx of irritable bowel syndrome Chronic back pain Hx of insomnia History of panic attacks History of anxiety History of depression Asthma High cholesterol Hypertension Urinary retention Enlarged prostate Arthritis Slow urinary stream Marijuana use Alcohol abuse H/O ulcer disease Left flank pain Trochanteric bursitis, left hip Epidermal cyst Abdominal wall bulge Esophageal dysphagia Esophageal spasm Short frenulum of penis Balanitis Elevated blood pressure reading in office with diagnosis of hypertension Thalamic pain syndrome Abnormal loss of weight Painful orthopaedic hardware Pain in unspecified toe(s) Incisional pain Surgical History (Updated 03/11/24 @ 11:02 by Masha Gaines PA-C) S/P placement of nerve stimulator H/O neck surgery Hx of arthroscopy of left knee H/O breast surgery S/P excision of lipoma History of bunionectomy History of cystoscopy History of colonoscopy History of esophagogastroduodenoscopy (EGD) Family History Family/Other Cancer Diabetes AIDS Brother Diabetes Myocardial infarction Father Enlarged prostate Mother Diabetes Asthma Social History Are you a primary geriatric personal care aide to a significant other at home: No Do you presently have visiting nurse or other home services: No Alcohol intake: never Patient Tobacco Use Status: Current everyday Tobacco user Cigarettes Per Day: 4 Years Smoked: (onset 16yo, 1ppd x 42yrs, now 1/2ppd - 40pyh) Substance Use Type: Marijuana service: No Current occupational status: unemployed Review of Systems Const Reports daytime sleepiness and Reports difficulty sleeping Eyes Denies change in vision ENT Reports nasal congestion and Denies throat swelling Card Reports chest pain and Reports dyspnea on exertion Resp Reports chest congestion, Reports cough, Reports dyspnea on exertion and Reports wheezing GI Reports no additional complaints Musc Reports as per HPI, Reports abnormal gait, Reports back pain, Reports myalgias, Reports arthralgias, Reports radiating pain into limb and Reports stiffness Skin/Breast Denies lesions and Denies rash Neuro Reports abnormal gait, Reports radicular pain and Reports paresthesias Endo Denies flushing Tarik/Lymph Denies easy bleeding and Denies easy bruising Aller/Immun Denies throat swelling and Reports wheezing Physical Exam Vital Signs: Last Vital Signs Pulse 79 10/14/24 09:21 BP 150/82 H 10/14/24 09:21 Pulse Ox 98 10/14/24 09:21 Oxygen Delivery Method Room Air 10/14/24 09:21 BMI result Body Mass Index 29.9 Const General: comfortable HEENT Head: Yes normocephalic Neck Neck: Yes supple Chest Chest palpation & inspection: normal inspection of the chest Resp Effort & Inspection: normal respiratory effort and prolonged expiratory phase Auscultation: wheezes and diminished lung sounds Cardio Rate: regular rate Rhythm: regular rhythm Heart sounds: S1 normal heart sound present and S2 normal heart sound present GI Palpation (GI): Soft to palpation Skin General skin exam: no rashes or lesions noted Neuro Sensory Exam: Trunk sensory exam abnormal (hypersensitive on the left side) Extrem General: Yes no clubbing, cyanosis or edema Office Meds methylprednisolone sod suc(PF) 125 mg/2 mL solution for injection Performing Provider: Javier Maldonado MD Performing Location: [facility] Pulmonology Services Administered by: Emily Gary LPN on 10/14/24 09:55 Dose Route Admin Location Dispensed Lot Number Expiration Date [place] [employer] 125 mg IM left buttock 1 ea [id number] 07/06/26 1742-1927-39 [employer] Assessment & Plan Assessment & Plan (1) COPD (chronic obstructive pulmonary disease): Code(s): J44.9 - Chronic obstructive pulmonary disease, unspecified Category: Medical Qualifiers: COPD type: COPD with acute exacerbation Qualified Code(s): J44.1 - Chronic obstructive pulmonary disease with (acute) exacerbation (2) STEPHON (obstructive sleep apnea): Code(s): G47.33 - Obstructive sleep apnea (adult) (pediatric) Category: Medical (3) Chest pain: Comment: Likely dermatomal/neuropathic Code(s): R07.9 - Chest pain, unspecified Category: Medical Qualifiers: Chest pain type: unspecified Qualified Code(s): R07.9 - Chest pain, unspecified Plan restart Trelegy continue Duoneb Add Budesonide nebs Solumedrol IM x 1 then prednisone taper start doxycycline LDCT program tobacco cessation continue APAP, adjusted pressures 6-16->6-13 F/U 6 months Orders: Orders AMB Methylprednisolone Sod Succ Injection Today J41.8 - Mixed simple and mucopurulent chronic bronchitis Medications: New nicotine 1 patch transdermal DAILY 28 ea 4RF 28 days doxycycline hyclate 100 mg PO BID 20 caps 0RF 10 days ipratropium-albuterol 0.5 mg-3 mg(2.5 mg base)/3 mL 3 mL inhalation BID 180 mL 11RF 30 days J44.9 - Chronic obstructive pulmonary disease, unspecified prednisone PO daily; Take 2 tabs daily x 5 days, then 1 tablet daily x 5 days 15 tabs 0RF 10 days budesonide 0.5 mg (2 mL) inhalation BID 120 mL 11RF 30 days J44.9 - Chronic obstructive pulmonary disease, unspecified Coding Level of Care Code Est Pt Level 4 (09163) Diagnoses Chronic obstructive pulmonary disease with acute exacerbation J44.1 COPD type: COPD with acute exacerbation STEPHON (obstructive sleep apnea) G47.33 Chest pain, unspecified type R07.9 Chest pain type: unspecified Time Spent (min) 16
--- OUTSIDE RECORDS SUMMARY | 2024-10-14 10:03 | XMS_ITS | Clinical Summary ---
Author Organization [facility] Facility Address [address] [place] [address] Care Team Providers Care Emission Technician Name Role Phone Donna Harmon MD Primary [...] Due Date Last Done Comments Pneumococcal Vaccine: Peds ( 0 to 5 Years) and At-Risk Patients (6 to 49 Years) (1 of 2 - PCV) 12/23/1973 Hepatitis B Vaccine (1 of 3 - 19+ 3-dose series) 12/23 Colorectal Cancer Screening: Annual FOBT 12/23/2016 Colorectal Cancer Screening: Colonoscopy 12/23/2016 Colorectal Cancer Screening: Sigmoidoscopy 12/23/2016 Influenza Vaccine (Season Ended) 20[facility] [place] [place] [phone] Care Teams Emission Technician Relationship Specialty Start Date End Date Donna Harmon MD PCP - General 05/11/19
--- OUTSIDE RECORDS SUMMARY | 2024-10-14 10:03 | XMS_ITS | Encounter Summary ---
Author Organization [employer] Address [address] 7[address] [place] [address] Care Team Providers Care Mold Car Pusher Name Role Phone Amy Pickett MD Primary Care Pro vider Encounter Details Date Type Department Care Team (Late st Contact Info) Description 06/24/2024 Orders Only [facility] [address] [place] [address] ProviderBryan MD Social History Tobacco Use Types [...] Care Team (Late st Contact Info) Description 11/16/2024 9:45 AM EDT Office Visit [facility] [address] [place] [phone] 11/24/2024 2:15 PM EDT Office Visit [facility] [address] [place] [phone] Amy Pickett MD [address] [place] [phone] documented as of this encounter Procedures Procedure [...] documented as of this encounter Care Teams Mold Car Pusher Relationship Specialty Start Date End Date Amy Pickett MD [address] [place] [phone] PCP - General Internal Medicine 04/07/23 documented as of this encounter
--- OUTSIDE RECORDS SUMMARY | 2024-10-14 10:03 | XMS_ITS | Encounter Summary ---
Author Organization [employer] Address [address] [facility] 7t [place] [address] Care Team Providers Care Engineering Manager Electronics Name Role Phone Amy Pickett MD Primary Care Pro vider Encounter Details Date Type Department Care Team (Late st Contact Info) Description 09/01/2024 Telephone [facility] [address] [place], [place] [phone] Amy Pickett MD [address] [place], [place] [phone] Social History Tobacco Use Types Packs/Day Years [...] Description 11/16/2024 9:45 AM EDT Office Visit [facility] [address] [place] [phone] 11/24/2024 2:15 PM EDT Office Visit [facility] [address] [place] [address] Amy Pickett MD [address] [place] [phone] documented as of this encounter Visit Diagnoses Not on filedocumented in this encounter Additional Health Concerns Assessment Noted Time PHQ-9 Depression Total Score: 10 024 9:41 AM EDT documented as of this encounter Care Teams Engineering Manager Electronics Relationship Specialty Start Date End Date Amy Pickett MD [address] [place] [phone] PCP - General Internal Medicine 04/07/23 documented as of this encounter
--- OUTSIDE RECORDS SUMMARY | 2024-10-14 10:03 | XMS_ITS | Encounter Summary ---
Author Organization [employer] Address [address] [facility] 7t [place] [address] Care Team Providers Care Licensed Mortician Name Role Phone Amy Pickett MD Primary Care Pro vider Encounter Details Date Type Department Care Team (Late st Contact Info) Description 10/01/2024 Orders Only [facility] [address] [place], [place] [phone] Za Preston MD [address] [place] [address] Social History Tobacco Use Types Packs/Day Years [...] Description 11/16/2024 9:45 AM EDT Office Visit [facility] [address] [place] [phone] 11/24/2024 2:15 PM EDT Office Visit [facility] [address] [place] [phone] Amy Pickett MD [address] [place] [phone] documented as of this encounter Visit Diagnoses Not on filedocumented in this encounter Additional Health Concerns Assessment Noted Time PHQ-9 Depression Total Score: 10 024 9:41 AM EDT documented as of this encounter Care Teams Licensed Mortician Relationship Specialty Start Date End Date Amy Pickett MD [address] [place] [phone] PCP - General Internal Medicine 04/07/23 documented as of this encounter
--- OUTSIDE RECORDS SUMMARY | 2024-10-14 10:03 | XMS_ITS | Encounter Summary ---
Author Organization [employer] Address [address] [facility] 7 [place] [address] Care Team Providers Care Health Information Technician Name Role Phone Amy Pickett MD Primary Care Pro vider Reason for Visit * Reason Onset Date Comments Med Refill 05/13/2024 Encounter Details Date Type Department Care Team ([facility] st Contact Info) Description 05/13/2024 Telephone [facility] [address] [place], [place] [phone] Amy iPckett MD [address] [place], [place] [phone] Med Refill Social History Tobacco Use Types [...] tablet To be sent to: [facility]/pharmacy #[id number] - [place], [place] - [address] [place] [address] documented in this encounter Plan of Treatment Upcoming Encounters Date Type Department Care Team (Late st Contact Info) Description 11/16/2024 9:45 AM EDT Office Visit [facility] [address] [place] [address] [phone] 11/24/2024 2:15 PM EDT Office Visit [facility] [address] [place] [address] Amy Pickett MD [address] [place] [address] documented as of this encounter Visit Diagnoses Not on filedocumented in this encounter Additional Health Concerns Assessment Noted Time PHQ-9 Depression Total Score: 10 024 9:41 AM EDT documented as of this encounter Care Teams Health Information Technician Relationship Specialty Start Date End Date Amy Pickett MD [address] [place] [phone] PCP - General Internal Medicine 04/07/23 documented as of this encounter
--- OUTSIDE RECORDS SUMMARY | 2024-10-14 10:03 | XMS_ITS | Encounter Summary ---
Author Organization [employer] Address [address] [facility] 7 [place] [address] Care Team Providers Care Pharmacy Sales Representative Name Role Phone Elise Glover Primary Care Provider [phone] Amy Pickett MD Primary Care Pro vider Reason for Visit * Reason Onset Date Comments Durable Medical Equipment 10/07/2022 Encounter Details Date Type Department Care Team (Late st Contact Info) Description 10/07/2022 Telephone [facility] [address] [place] [address] Elise Glover FNP [address] [place] [address] Dept [place] [address] Durable Medical Equipment Social History Tobacco Use [...] If any questions please contact Anabelle at [phone] documented in this encounter Plan of Treatment Upcoming Encounters Date Type Department Care Team (Late st Contact Info) Description 11/16/2024 9:45 AM EDT Office Visit [address] [address] 11/24/2024 2:15 PM EDT Office Visit [address] [address] Amy Pickett MD [address] [place] [address] documented as of this encounter Visit Diagnoses Not on filedocumented in this encounter Additional Health Concerns Assessment Noted Time PHQ-9 Depression Total Score: 24 10/01/2 023 10:05 AM EDT documented as of this encounter Care Teams Pharmacy Sales Representative Relationship Specialty Start Date End Date Elise Glover FNP PCP - General Family Medicine 07/09/22 04/06/23 Amy Pickett MD [address] [place] [phone] PCP - General Internal Medicine 04/07/23 documented as of this encounter
--- OUTSIDE RECORDS SUMMARY | 2024-10-14 10:03 | XMS_ITS | Encounter Summary ---
Author Organization [employer] Address [address] [facility] 7 [place] [address] Care Team Providers Care Meat Team Member Name Role Phone Amy Pickett MD Primary Care Pro vider Reason for Visit * Reason Onset Date Comments Med Refill 02/11/2024 Encounter Details Date Type Department Care Team ([facility] st Contact Info) Description 02/11/2024 Telephone [facility] [address] [place], [place] [phone] Amy Pickett MD [address] [place], [place] [phone] Med Refill Social History Tobacco Use Types [...] encounter Miscellaneous Notes * Telephone Encounter - Golria Dillon - 02/11/2024 10:11 AM EDT TC from pt requesting medication refill. Medications needing refill : oxyCODONE (Roxicodone) 15 MG immediate release tablet To be sent to: [id number] - [address] documented in this encounter Plan of Treatment Upcoming Encounters Date Type Department Care Team (Late st Contact Info) Description 11/16/2024 9:45 AM EDT Office Visit [facility] [address] [place] [phone] 11/24/2024 2:15 PM EDT Office Visit [facility] [address] [place] [phone] Amy Pickett MD [address] [place] [phone] documented as of this encounter Visit Diagnoses Not on filedocumented in this encounter Additional Health Concerns Assessment Noted Time PHQ-9 Depression Total Score: 24 10/01/ 023 10:05 AM EDT documented as of this encounter Care Teams Meat Team Member Relationship Specialty Start Date End Date Amy Pickett MD [address] [place] [phone] PCP - General Internal Medicine 04/07/23 documented as of this encounter
--- OUTSIDE RECORDS SUMMARY | 2024-10-14 10:03 | XMS_ITS | Encounter Summary ---
Author Organization [employer] Address [address] [facility] 7 [place] [address] Care Team Providers Care Radiology Transporter Name Role Phone Amy Pickett MD Primary Care Pro vider Reason for Visit * Reason Onset Date Comments Med Refill 04/09/2024 Encounter Details Date Type Department Care Team ([facility] st Contact Info) Description 04/09/2024 Telephone [facility] [address] [place], [place] [phone] Amy Pickett MD [address] [place], [place] [phone] Med Refill Social History Tobacco Use Types [...] immediate release tablet To be sent to: [facility]/pharmacy #[id number] - [address] documented in this encounter Plan of Treatment Upcoming Encounters Date Type Department Care Team (Late st Contact Info) Description 11/16/2024 9:45 AM EDT Office Visit [facility] [address] [place] [phone] 11/24/2024 2:15 PM EDT Office Visit [facility] [address] [place] [address] Amy Pickett MD [address] [place], [place] [phone] documented as of this encounter Visit Diagnoses Not on filedocumented in this encounter Additional Health Concerns Assessment Noted Time PHQ-9 Depression Total Score: 10 024 9:41 AM EDT documented as of this encounter Care Teams Radiology Transporter Relationship Specialty Start Date End Date Amy Pickett MD [address] [place] [phone] PCP - General Internal Medicine 04/07/23 documented as of this encounter
--- OUTSIDE RECORDS SUMMARY | 2024-10-14 10:03 | XMS_ITS | Encounter Summary ---
Author Organization [employer] Address [address] [facility] 7 [place] [address] Care Team Providers Care Contact Lens Flashing Puncher Name Role Phone Amy Pickett MD Primary Care Pro vider Reason for Visit * Reason Onset Date Comments Appointment Request 10/05/2024 Encounter Details Date Type Department Care Team ([facility] st Contact Info) Description 10/05/2024 Telephone [facility] MEDICINE [address] [place], [place] [phone] Amy Pickett MD [address] [place], [place] [phone] Appointment Request Social History Tobacco Use Types [...] encounter Miscellaneous Notes * Telephone Encounter - Niko Fletcher - 10/05/2024 9:52 AM EDT Tc from pt requesting to R/s Appt for 10/26/24 due to pt being at court that day and is not able to make it. Contact Isa at [phone] documented in this encounter Plan of Treatment Upcoming Encounters Date Type Department Care Team (Late st Contact Info) Description 11/16/2024 9:45 AM EDT Office Visit [facility] MEDICINE [address] [place] [address] [phone] 11/24/2024 2:15 PM EDT Office Visit [facility] MEDICINE [address] [place] [phone] Amy Pickett MD [address] [place], [place] [phone] documented as of this encounter Visit Diagnoses Not on filedocumented in this encounter Additional Health Concerns Assessment Noted Time PHQ-9 Depression Total Score: 10 024 9:41 AM EDT documented as of this encounter Care Teams Contact Lens Flashing Puncher Relationship Specialty Start Date End Date Amy Pickett MD [address] [place] [phone] PCP - General Internal Medicine 04/07/23 documented as of this encounter
--- OUTSIDE RECORDS SUMMARY | 2024-10-14 10:03 | XMS_ITS | Encounter Summary ---
Author Organization [employer] Address 75 [facility] 7t [place] [address] Care Team Providers Care Ict Business Analyst Name Role Phone Amy Pickett MD Primary Care Pro vider Encounter Details Date Type Department Care Team (Late st Contact Info) Description 09/01/2024 Telephone [facility] MEDICINE [address] [place], [place] [phone] Amy Pickett MD 230 [place], [place] [phone] Social History Tobacco Use Types Packs/Day Years [...] Description 11/16/2024 9:45 AM EDT Office Visit [facility] MEDICINE [address] [place] [address] 11/24/2024 2:15 PM EDT Office Visit [facility] MEDICINE [address] [place] [address] Amy Pickett MD [address] [place] [address] documented as of this encounter Visit Diagnoses Not on filedocumented in this encounter Additional Health Concerns Assessment Noted Time PHQ-9 Depression Total Score: 10 024 9:41 AM EDT documented as of this encounter Care Teams Ict Business Analyst Relationship Specialty Start Date End Date Amy Pickett MD [address] [place] [phone] PCP - General Internal Medicine 04/07/23 documented as of this encounter
--- OUTSIDE RECORDS SUMMARY | 2024-10-14 10:03 | XMS_ITS | Encounter Summary ---
Author Organization [employer] Address [address] [place] [address] Care Team Providers Care Lung Puller Name Role Phone Elise Glover Primary Care Provider +1- [phone] Amy Pickett MD Primary Care Pro vider Encounter Details Date Type Department Care Team (Late st Contact Info) Description 01/14/2023 Orders Only [address] [address] Elise Glover FNP [address] [place] [address] Dept of [place] [address] Social History Tobacco Use Types Packs/Day Years [...] Description 11/16/2024 9:45 AM EDT Office Visit [facility] MEDICINE [address] [place] [address] 11/24/2024 2:15 PM EDT Office Visit [address] [address] Amy Pickett MD [address] [place] [address] documented as of this encounter Visit Diagnoses Not on filedocumented in this encounter Additional Health Concerns Assessment Noted Time PHQ-9 Depression Total Score: 24 10/01/ 023 10:05 AM EDT documented as of this encounter Care Teams Lung Puller Relationship Specialty Start Date End Date Elise Glover FNP PCP - General Family Medicine 07/09/22 04/06/23 Amy Pickett MD [address] [place] [phone] PCP - General Internal Medicine 04/07/23 documented as of this encounter
--- OUTSIDE RECORDS SUMMARY | 2024-10-14 10:03 | XMS_ITS | Encounter Summary ---
Author Organization [employer] Address 75 [facility] 7 [place] [address] Care Team Providers Care Digital Media Producer Name Role Phone Amy Pickett MD Primary Care Pro vider Reason for Visit * Reason Onset Date Comments Appointment Request 09/02/2023 Encounter Details Date Type Department Care Team ([facility] st Contact Info) Description 09/02/2023 Telephone [facility] MEDICINE 230 [place], [place] [phone] Amy Pickett MD 230 [place], [place] [phone] Appointment Request Social History Tobacco Use Types [...] from pt requesting a transfer patient appointment. [facility] does not see any availability. Pt states he needs appointment as soon as possible due to controlled medication. States needs to be seen bya new provider to continue medication. Please contact pt at [phone] documented in this encounter Plan of Treatment Upcoming Encounters Date Type Department Care Team (Late st Contact Info) Description 11/16/2024 9:45 AM EDT Office Visit [facility] MEDICINE [address] [place] [phone] 11/24/2024 2:15 PM EDT Office Visit [facility] MEDICINE [address] [place] [phone] Amy Pickett MD [address] [place] [phone] documented as of this encounter Visit Diagnoses Not on filedocumented in this encounter Additional Health Concerns Assessment Noted Time PHQ-9 Depression Total Score: 24 023 10:05 AM EDT documented as of this encounter Care Teams Digital Media Producer Relationship Specialty Start Date End Date Amy Pickett MD [address] [place] [phone] PCP - General Internal Medicine 04/07/23 documented as of this encounter
--- OUTSIDE RECORDS SUMMARY | 2024-10-14 10:03 | XMS_ITS | Clinical Summary ---
Author Organization [employer] [facility] Address [address] [place] [address] Care Team Providers Care Catechist Name Role Phone Ba Maria MD Primary Care Provider Surgical History Surgery Date Site/Laterality Comments FOOT SURGERY PROCEDURE: [place] UNLISTED PROCEDURE FOOT/TOES; COMMENT: left foot bunion removal LIPOMA RESECTION PROCEDURE: SKIN TISSUE EXCISION(LIPOMA) OTHER SURGICAL HISTORY PROCEDURE: ---- OTHER ----; COMMENT: urethral surgeries done? three times in [place] [facility] for difficulty urinating Medical History Medical History Date Comments Chronic back pain DX:Chronic alonso k pain Asthma DX:Asthma Anxiety DX:Anxiety; COMM ENT: follows at [facility] psychiatry Family History Medical History [...] Td or Tdap) 10/27/2022 10/27/2012 COVID-19 Vaccine ( season) 2024 Influenza Vaccine (Season Ended) 2025 03/16/2020, 08/10/2019, 03/23/2019, Additional history exists MMR Vaccines [...] age to complete this topic Meningococcal B Vaccine Aged Out No l onger eligible based on patient's age to complete this topic RSV Immunization Patients Under 20 months Aged Out No longer eligible based on patient's age to complete this topic Varicella Vaccines Aged Out No longer eligible based on patient's age to complete this topic Care Teams Catechist Relationship Specialty Start Date End Date Ba Maria MD PCP - General Internal Medicine 10/26/12
--- OUTSIDE RECORDS SUMMARY | 2024-10-14 10:03 | XMS_ITS | Encounter Summary ---
Author Organization [employer] Address 75 [facility] 7 [place] [address] Care Team Providers Care Soaking Pits Supervisor Name Role Phone Amy Pickett MD Primary Care Pro vider Reason for Visit * Reason Comments Med Refill Encounter Details Date Type Department Care Team ([facility] st Contact Info) Description 06/17/2024 Refill [facility] MEDICINE [address] [place], [place] [phone] Amy Pickett MD 230 [place] [address] Social History Tobacco Use Types Packs/Day Years [...] Description 11/16/2024 9:45 AM EDT Office Visit [facility] MEDICINE [address] [place] [address] 11/24/2024 2:15 PM EDT Office Visit [facility] MEDICINE [address] [place] [address] Amy Pickett MD [address] [place] [address] documented as of this encounter Visit Diagnoses Not on filedocumented in this encounter Additional Health Concerns Assessment Noted Time PHQ-9 Depression Total Score: 10 024 9:41 AM EDT documented as of this encounter Care Teams Soaking Pits Supervisor Relationship Specialty Start Date End Date Amy Pickett MD [address] [place] [phone] PCP - General Internal Medicine 04/07/23 documented as of this encounter
--- OUTSIDE RECORDS SUMMARY | 2024-10-14 10:03 | XMS_ITS | Encounter Summary ---
Author Organization [employer] Address [address] [place] [address] 7 [place] [address] Care Team Providers Care Geneticist Name Role Phone Elise Glover Primary Care Provider +1- [phone] Amy Pickett MD Primary Care Pro vider Reason for Visit * Reason Onset Date Comments triage 08/22/2022 Encounter Details Date Type Department Care Team (Late st Contact Info) Description 08/22/2022 Telephone [facility] MEDICINE [address] [place] [address] Elise Glover FNP [address] [place] [address] Dept [place] [address] triage Social History Tobacco Use Types Packs/Day [...] Description 11/16/2024 9:45 AM EDT Office Visit [address] [phone] 11/24/2024 2:15 PM EDT Office Visit [address] [address] Amy Pickett MD [address] [place] [address] [phone] documented as of this encounter Visit Diagnoses Not on filedocumented in this encounter Care Teams Geneticist Relationship Specialty Start Date End Date Elise Glover FNP PCP - General Family Medicine 07/09/22 04/06/23 Amy Pickett MD [address] [place] [phone] PCP - General Internal Medicine 04/07/23 documented as of this encounter
--- OUTSIDE RECORDS SUMMARY | 2024-10-14 10:03 | XMS_ITS | Encounter Summary ---
Author Organization [employer] Address 75 [facility] 7 [place] [address] Care Team Providers Care Corporate Controller Name Role Phone Amy Pickett MD Primary Care Pro vider Reason for Visit * Reason Onset Date Comments Results 10/01/2024 Encounter Details Date Type Department Care Team ([facility] st Contact Info) Description 10/01/2024 Telephone [facility] MEDICINE [address] [place], [place] [phone] Amy Pickett MD 230 [place], [place] [phone] Results Social History Tobacco Use Types Packs/Day Years [...] * Telephone Encounter - Niko Fletcher - 10/01/2024 11:03 AM EDT TC from pt requesting call back regarding Results. Type of results: Blood Test Date when done: 09/29/24 Facility: [facility] [place] Contact pt at [phone] documented in this encounter Plan of Treatment Upcoming Encounters Date Type Department Care Team (Late st Contact Info) Description 11/16/2024 9:45 AM EDT Office Visit [facility] MEDICINE [address] [place] [address] 11/24/2024 2:15 PM EDT Office Visit [facility] MEDICINE [address] [place] [address] Amy Pickett MD [address] [place] [phone] documented as of this encounter Visit Diagnoses Not on filedocumented in this encounter Additional Health Concerns Assessment Noted Time PHQ-9 Depression Total Score: 10 024 9:41 AM EDT documented as of this encounter Care Teams Corporate Controller Relationship Specialty Start Date End Date Amy Pickett MD [address] [place] [phone] PCP - General Internal Medicine 04/07/23 documented as of this encounter
--- OUTSIDE RECORDS SUMMARY | 2024-10-14 10:03 | XMS_ITS | Clinical Summary ---
Author Organization [employer] Address [address] [facility] [address] [place] [address] Care Team Providers Care Supervisor [employer] Name Role Phone Amy Pickett MD Primary [...] 022 Active Nebulizers (Comp-Air Elite Compact Neb) [facility] Active Blood Pressure Monitor kit 1 each [...] vomiting. 60 tablet 1 023 Active pancrelipase, Yei-Jxlo-Qyhc, (Creon) 4007-8777 units capsule Take 1 capsule by mouth [...] BY MOUTH EVERY DAY 90 tablet 1 Active cyanocobalamin (Vitamin B-12) 1000 MCG tablet [...] oxyCODONE (Roxicodone) 15 MG immediate release tabletIndicatio ns:BUSINESS TAXES SPECIALIST checked 06/13/22 Take 1 tablet (15 mg) by mouth every 6 (six) hours for 28 days. 112 tablet 025 2024 Active tamsulosin (Flomax) 0.4 MG 24 hr capsule TAKE 1 CAPSULE (0.4 MG) BY MOUTH IN THE MORNING. EVERY DAY 1/2 HOUR FOLLOWING THE SAME MEAL EACH DAY 90 capsule 024 2024 Discontinued oxyCODONE (Roxicodone) 15 MG immediate release tabletIndicatio ns:BUSINESS TAXES SPECIALIST checked 06/13/22 Take 1 tablet (15 mg) [...] recommended. -Supportive care advised. -Isolation recommendations discussed. 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 Maldonado Continue with Combivent inhaler Claudication [...] Injections 11/2022 Encouraged stretching Will refer to [facility] Continue PICKING MACHINE OPERATOR HELPER at this time. Will perform random Utox [...] C7 fracture seen on CT scan at [facility] ER 10/28/23 He participated fully in group [...] C7 fracture seen on CT scan at [facility] ER 10/28/23 He participated fully in group [...] Injections 11/2022 Encouraged stretching Will refer to [facility] physical therapy Continue PICKING MACHINE OPERATOR HELPER at this time. Will perform random Utox [...] lumbar pain. Encouraged stretching Will refer to [facility] Continue PICKING MACHINE OPERATOR HELPER at this time. Will perform random Utox [...] 01/27/2024 Abnormal urine odor 01/23/2018 10/02/19 Encounters * This document contains information received from the source organization and may not represent a complete record from that organization. Date Type Department Care Team Description 10/05/2024 Telephone [facility] [address] [place] [address] 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 RN 10/05/[address] [address] Amy Pickett MD Appointment Request 10/01/2024 Orders Only [facility] [address] [place] [address] Za Preston MD 10/01/[address] [address] Amy Pickett MD Results 09/29/2024 Orders Only [facility] [address] [place] [address] Brent Hanson MD 09/28/2024 9:45 AM EDT Office Visit [address] [phone] Holly Wills FNP Cervical spondylosis without myelopathy (Primary Dx); 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 09/28/[address] [address] Amy Pickett MD Chronic pain of both knees; Chronic low back pain, unspecified back pain laterality, unspecified whether sciatica present 09/28/2024 Travel 09/22/2024 6:20 PM EDT Office Visit [facility] [address] [place] [phone] Brent Hanson MD STD exposure (Primary Dx); Balanitis; Left hip pain 09/22/2024 Telephone [facility] [address] [place] [phone] Amy Pickett MD Nurse Triage 09/19/2024 Refill [facility] [address] [place], [place] [phone] Chioma Mojica MD 09/07/2024 9:20 AM EST Office Visit [facility] [address] [address] Bri Noriega MD Viral infection 09/07/2024 Telephone [facility] [address] [place] [phone] Amy Pickett MD [employer] (Boost, strawberry tetra brik 8oz ()) 09/06/2024 Orders Only GENERIC EXTERNAL DATA DEPARTMENT Provider, Generic External Data 09/06/2024 Telephone [facility] [address] [place] [phone] Amy Pickett MD Durable Medical Equipment (Boost recert) 09/01/2024 Refill [facility] [address] [place] [phone] Amy Pickett MD Chronic pain of both knees; Chronic low back pain, unspecified back pain laterality, unspecified whether sciatica present 09/01/2024 Refill [facility] [address] [place] [address] [phone] Amy Pickett MD Moderate persistent asthma without complication 09/01/2024 Telephone [facility] [address] [place] [address] [phone] Amy Pickett MD 09/01/2024 [address] [place] [address] Amy Pickett MD 08/31/2024 9:45 AM EST Office Visit [facility] [address] [place] [address] Holly Wills, LEGAL TRANSCRIBER Cervical spondylosis without myelopathy (Primary Dx); group home 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; Chronic obstructive pulmonary disease, unspecified COPD type ([facility]) 08/31/2024 Refill [facility] [address] [place] [address] Holly Wills, LEGAL TRANSCRIBER Moderate persistent asthma without complication 08/31/2024 Travel 08/25/2024 Telephone [facility] [address] [place] [address] Shu Martínez [place] October08/15/2024 Refill [facility] [address] [place] [address] Amy Pickett MD 08/06/2024 Telephone [facility] [address] [place] [address] Amy Pickett MD Med Refill 08/06/2024 Refill [facility] [address] [place] [address] Amy Pickett MD Chronic pain of both knees; Chronic low back pain, unspecified back pain laterality, unspecified whether sciatica present 08/04/2024 Refill [facility] [address] [place] [address] Amy Pickett MD 08/04/2024 Telephone [facility] [address] [place] [address] Odilia aGrvey RN 08/04/2024 Travel 08/03/2024 Telephone [facility] [address] [place] [address] Amy Pickett MD Appointment Request from Last 3 Months Immunizations Name Administration [...] 9:45 AM EDT Office Visit [facility] [address] [place] [phone] 11/24/2024 2:15 PM EDT Office Visit [facility] [address] [place] [phone] Amy Pcikett MD [address] [place] [address] Health Maintenance Due Date Last Done Comments CT Colonography 1965 FIT DNA/Cologuard 1965 FIT 1965 FOBT 1965 Sigmoidoscopy 1965 Alcohol/Substance Use Screening 1979 Hepatitis A Vaccines (1 of 2 - Risk 2-dose series) 12/23/1986 Depression Monitoring 09/09/2024 03/12/2024, 024 Depression Screening 03/12/2025 03/12/2024, 03/12/20 24 SDOH [...] Completed 01/27/2024, 05/15/2020, 08/10/2019, Additional history exists COVID-19 Vaccine Completed 04/02/2024, 09/2021, 10/28/2021, Additional history exists Influenza Vaccine Completed 04/02/2024, , 04/08/2022, Additional history exists Zoster Vaccines Completed 04/02/2024, 07/08, 05/15/2020 HIV Screening Completed 09/29/2024, 03/19/2024 Hepatitis C Screening Completed 09/29/2024 , 09/29/2024, 03/19/2024, Additional history exists HIB Vaccines Aged Out No longer eligi [...] Procedure Name Priority Date/Time Associated Diagnosis Comments HEPATITIS C VIRAL RNA, QUANTITATIVE, REAL-TIME PCR Routine 09/29/2024 3:37 PM EDT HEPATITIS C AB W/REFL TO HCV RNA, QN, PCR Routine 09/29/2024 3:37 PM EDT STD exposure HIV 1/2 ANTIGEN/ANTIBODY, FOURTH GENERATION W/RFL Routine 09/29/2024 3:37 PM EDT STD exposure SYPHILIS SCREEN Routine 09/29/2024 3:37 PM EDT STD exposure C-REACTIVE PROTEIN Routine 09/29/2024 3: 37 PM EDT Hyperlipidemia, unspecified hyperlipidemia type VITAMIN B12/FOLATE, SERUM PANEL Routine 09/29/2024 3:37 PM EDT Hyperlipidemia, unspecified hyperlipidemia type LIPID PANEL, STANDARD Routine 09/29/2024 3:37 PM EDT Hyperlipidemia, unspecified hyperlipidemia type COMPREHENSIVE METABOLIC PANEL Routine 09/29/2024 3:37 PM EDT Hyperlipidemia, unspecified hyperlipidemia type CHLAMYDIA/N. 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 GONORRHOEAE [...] SCREEN Routine 08/31/2024 1:11 PM EST 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 HM COLONOSCOPY Routine 01/06/2018 8:00 AM EDT from Last 3 Months or Most Recently Relevant to Health Maintenance Results * Syphilis Screen (09/29/2024 3:37 PM EDT) Syphilis Screen Nonreactive Nonreactive [facility] Blood 09/29/2024 3:37 PM EDT 09/29/2024 3:38 PM EDT us Brent Fischer MD LAB BLOOD ORDERABL ES Final Result Performing Organization Address [facility]/ZIP Co de Phone Number [facility] [address] [place] [phone] * Vitamin B12 (Cobalamin) and Folate Panel, Serum (09/29/2024 3:37 PM EDT) Pathologist [facility] Vitamin B12 338 200 - 900 pg/mL [facility] Comment:NORMAL 200-900 PG/ML INDETERMINATE 160-199 PG/ML DEFICIENT < 160 PG/ML Folate 7.6 > or = 4.0 ng/mL [facility] Comment:Reference Values:> o r = 4.0 ng/mL< 4.0 ng/mL suggests folate deficiency Methotrexate, aminopterin and folinic acid(leucovorin) are chemotherapeutic agents whose molecularstructures are similar to folate; therefore, the Architectfolate assay cannot be used for patients using these drugs. Blood 09/29/2024 3:37 PM EDT 09/29/2024 3:38 PM EDT us Amy Berry MD LAB BLOOD ORDERAB LES Final Result Performing Organization Address [facility] Co de Phone Number [facility] [address] [place] [phone] * Hepatitis C Viral RNA, Quantitative, Real-Time PCR (09/29/2024 3:37 PM EDT) [facility] Hepatitis C Viral Load <15 NOT DETECTED NOT DETECTED IU/mL [facility] HCV Log PCR <1.18 NOT DETECTED NOT DETECTED Log IU/mL [facility] Comment:For additional infor hector, please refer [email or web address].[email or web address]/[email or web address](This link is being provided for informational/educational purposes only.)THIS TEST WAS PERFORMED AT:[employer] [place] [phone] GAUTAM MD 09/29/2024 3:37 PM EDT 09/30/2024 12:15 PM EDT Brent Fischer MD LAB BLOOD ORDERABL ES Final Result Performing Organization Address [facility]/ZIP Co de Phone Number [facility] [address] [place] [address] [phone] * (ABNORMAL) Hepatitis C Antibody with Reflex to HCV, RNA, Quantitative, Real- Time PCR (09/29/2024 3:37 PM EDT) Hepatitis C Antibody Reactive( A) Nonreactive [facility] Comment:Presumptive evidence of antibodies to HCV. Blood Venous blood specimen / Unknown 09/29/2024 3:37 PM EDT 09/29/2024 3:38 PM EDT Brent Fischer MD LAB BLOOD ORDERABL ES Final Result Performing Organization Address [facility] Co de Phone Number [facility] [address] [place] [phone] * HIV-1/2 Antigen and Antibodies, Fourth Generation, with Reflexes (09/29/2024 3:37 PM EDT) HIV AB/AG Nonreactive Nonreactive [facility] Comment:HIV-1 p24 Ag and/or HIV-1/HIV-2 Ab not detected.A test result that is nonreactive does not exclude thepossibility of exposure to or infection with HIV-1 and/orHIV-2. Nonreactive results in this assay for individualswith prior exposure to HIV-1 and/or HIV-2 may be due toantigen and antibody levels that are below the limit ofdetection of this assay.The DeposconiMostLikely HIV Ag/Ab Combo assay result andsupplemental assay results should be interpreted inconjunction with the patient's clinical presentation,history and other laboratory results. If the results areinconsistent with clinical evidence, additional testing issuggested to confirm the result. Blood Venous blood specimen / Unknown 09/29/2024 3:37 PM EDT 09/29/2024 3:38 PM EDT us Brent Fischer MD LAB BLOOD ORDERABL ES Final Result Performing Organization Address [facility]/ZIP Co de Phone Number [facility] [address] [place] [phone] * C-reactive Protein (09/29/2024 3:37 PM EDT) C Reactive Protein 0.18 < or = 0.50 mg/dL [facility] Blood Venous blood specimen / Unknown 09/29/2024 3:37 PM EDT 09/29/2024 3:38 PM EDT us Amy Berry MD LAB BLOOD ORDERAB LES Final Result Performing Organization Address [facility]/ZIP Co de Phone Number [facility] [address] [place] [phone] * (ABNORMAL) Lipid Panel, Standard (09/29/2024 3:37 PM EDT) Triglycerides 155(H) <150 mg/dL [facility] Comment:Desirable Triglyceri de: less than 150 mg/dLBorderline High Triglyceride 150-199 mg/dLHigh Triglyceride: 200-499 mg/dLVery High Triglyceride: greater than or equal to 5OO mg/dL Cholesterol 211(H) <200 mg/dL [facility] Comment:Desirable Cholestero l: less than 200 mg/dLBorderline High Cholesterol: 200-239 mg/dLHigh Cholesterol: greater than 239 mg/dL LDL Cholesterol Calculated 131(H) <100 mg/dL [facility] Comment:Desirable LDL: less than 100 mg/dLNear Optimal/Above Optimal LDL: 110- 129 mg/dLBorderline High LDL: 130-159 mg/dLHigh LDL: 160-189 mg/dLVery High LDL: greater than or equal to 190 mg/dL HDL Cholesterol 49 >40 mg/dL [facility] Comment:Desirable HDL: great er than 40 mg/dL Note: This HDL assay may give artificially low results in patients with liver disease. Blood Venous blood specimen / Unknown 09/29/2024 3:37 PM EDT 09/29/2024 3:38 PM EDT Amy Berry MD LAB BLOOD ORDERAB LES Final Result [facility] [address] [place] [phone] * (ABNORMAL) Comprehensive Metabolic Panel (09/29/2024 3:37 PM EDT) Only the most recent of2 resultswithin the time period is included. Sodium 140 135 - 145 mmol/L [facility] Potassium 4.5 3.3 - 5.1 mmol/L [facility] Chloride 109(H) 96 - 108 mmol/L [facility] Carbon Dioxide 26 22 - 29 mmol/L [facility] Anion Gap 10(L) 12 - 20 [facility] Urea Nitrogen (BUN) 21(H) 9 - 16 mg/dL [facility] Creatinine, Serum 0.94 0.5 - 1.4 mg/dL [facility] Estimated Glomerular Filt Rate >60 [facility] Comment:Chronic Kidney Disea se: Estimated GFR < 60 mL/min/1.17g8[place]hi Kidney Disease: Estimated GFR < 15 mL/min/1.73m2 Glucose 108 60 - 115 mg/dL [facility] Calcium 9.7 8.4 - 10.2 mg/dL [facility] Bilirubin, Total 0.3 0.0 - 1.0 mg/dL [facility] Aspartate Amino Transferase 15 5 - 37 U/L [facility] Alanine Aminotransferase 21 0 - 40 U/L [facility] Total Protein 7.0 6.5 - 8.0 g/dL [facility] Albumin Level 4.2 3.5 - 5.0 g/dL [facility] Alkaline Phosphatase 92 39 - 117 U/L [facility] Blood Venous blood specimen / Unknown 09/29/2024 3:37 PM EDT 09/29/2024 3:38 PM EDT Amy Berry MD LAB BLOOD ORDERAB LES Final Result [facility] [address] [place] [phone] [phone] * Chlamydia/N. Gonorrhoeae RNA, TMA, Urogenitial (09/29/2024 12:00 AM EDT) Only the most recent of2 resultswithin the time period is included. CT PCR NOT DETECTED Not Detect. [facility] Comment:A not detected test result [...] psychologicalconsequences. NG PCR NOT DETECTED Not Detect. [facility] Comment:A not detected test result [...] lead to adverse medical, social or psychologicalconsequences. 09/29/2024 09/29/2024 Narrative [facility] - 09/30/2024 5:59 AM EDT Urine Brent Fischer MD LAB MICROBIOLOGY - GENERAL ORDERABLES Final Result [facility] [address] [place] [address] [phone] * POCT ROBIN-14 Urine Drug Screen [...] 09/28/2024 1:23 PM EDT Narrative Flores Crook [place] - 09/28/2024 1:26 PM EDT Lot:[id number] Exp: 02/24/2028 Holly GARDNER POINT OF CARE TEST ENTER/EDIT ORDERABLES Final Result * POCT Influenza A manually resulted (09/07/2024 10:01 AM EST) Rapid Influenza A Ag Negative Negative, Indeterminate QC Media Lot # [id number] Lot# Expiration Date [id number] Swab Nasopharyngeal structure / Unknown 09/07/2024 10:01 AM EST Bri Noriega MD POINT OF CARE TEST ENTER/E DIT ORDERABLES Final Result * POCT Influenza B manually resulted (09/07/2024 9:53 AM EST) [facility] Rapid Influenza B Ag Negative Negative, Indeterminate QC Media Lot # [id number] Lot# Expiration Date [id number] Swab 09/07/2024 9:53 AM EST Bri Noriega MD POINT OF CARE TEST ENTER/E DIT ORDERABLES Final Result * POCT Rapid COVID Ag (09/07/2024 9:52 AM EST) [facility] Rapid COVID Ag Negative QC Media Lot # [id number] Lot# Expiration Date 91,426 Swab 09/07/2024 9:52 AM EST Bri Noriega MD POINT OF CARE TEST ENTER/E DIT ORDERABLES Final Result * High Sensitivity Troponin I (09/06/2024 12:14 PM EST) [facility] TROPONIN I HIGH SENSITIVITY <2.7 <3.5 - 35.0 ng/L [facility] Comment:The [place] high sens itivity Troponin-I results should beused in conjunction with other diagnostic information suchas ECG, clinical observations and information, and patientsymptoms to aid in the diagnosis of [place]. 09/06/2024 12:1 4 PM EST 09/06/2024 12:19 PM EST Generic External Data Provider LAB BLOOD ORDERAB LES Final Result [facility] [address] [place] [phone] * SARS-CoV-2 RNA, Influenza A/B, and RSV RNA, Ql NAAT (09/06/2024 12:14 PM EST) [facility] Influenza A PCR NEGATIVE Negative [facility] Influenza B PCR NEGATIVE Negative [facility] Resp Syncy Virus RNA Qual PCR NEGATIVE Negative [facility] SARS COV2 PCR NEGATIVE Negative [facility] Comment:All test results mus t [...] use by authorized laboratories.Testing performed on the [employer] GeneXpert utilizingreal-time RT-PCR.All SARS CoV2 and positive influenza A/B results arereported to [facility]. 09/06/2024 12:1 4 PM EST 09/06/2024 12:19 PM EST us Generic External Data Provider LAB MICROBIOLOGY - GENERAL ORDERABLES Final Result [facility] [address] [place] [phone] * (ABNORMAL) CBC auto differential (09/06/2024 12:14 PM EST) White Blood Count 7.6 4.8 - 10.8 X10*3/uL [facility] Red Blood Count 4.30(L) 4.60 - 5.80 X10*6/uL [facility] Hemoglobin 13.3(L) 14.0 - 18.0 g/dl [facility] Hematocrit 40.1(L) 42.0 - 52.0 % [facility] Mean Corpuscular Volume 93.3 80.0 - 98.0 fL [facility] Mean Corpuscular Hemoglobin 30.9 27.0 - 33.0 pg [facility] Mean Corpuscular HGB Conc 33.2 31.0 - 36.0 g/dl [facility] Red Cell Distribution Width 14.2 11.0 - 16.0 % [facility] Platelet Count 248 160 - 400 X10*3/uL [facility] Mean Platelet Volume 9.2(L) 9.4 - 12.4 fL [facility] Neutrophils Percent Auto 73.0 45 - 73 % [facility] Imm Gran Pct Auto 0.3 0.0 - 0.4 % [facility] Lymphocytes Percent Auto 20.0 20 - 40 % [facility] Monocytes Percent Auto 6.2 2 - 11 % [facility] Eosinophils Percent Auto 0.4 0 - 4 % [facility] Basophils Percent Auto 0.1 0 - 2 % [facility] NRBC Pct Auto 0.0 0.0 - 0.2 /100WBC [facility] Neutrophils Absolute Auto 5.5 2.0 - 8.3 x10*3/uL [facility] Imm Gran Abs Auto 0.02 0.00 - 0.03 X10*3/uL [facility] Lymphocytes Absolute Auto 1.5 1.2 - 4.9 X10*3/uL [facility] Monocytes Absolute Auto 0.5 0.1 - 1.2 X10*3/uL [facility] Eosinophils Absolute Auto 0.0 0.0 - 0.4 X10*3/uL [facility] Basophils Absolute Auto 0.0 0.0 - 0.2 X10*3/uL [facility] NRBC Abs Auto 0.000 0.0 - 0.012 X10*3/uL [facility] 09/06/2024 12:1 4 PM EST 09/06/2024 12:19 PM EST us Generic External Data Provider LAB BLOOD ORDERAB LES Final Result [facility] [address] [place] [phone] * Urinalysis w/reflex microscopic (09/06/2024 12:14 PM EST) Color Urine Yellow [facility] Appearance Urine Clear [facility] PH 6.5 5.0 - 9.0 [facility] Glucose Urine UA Negative Negative mg/dL [facility] Urine Blood Negative Negative [facility] Specific [place] - Urine <=1.005 1.005 - 1.025 [facility] Urine Protein Negative Neg-Trace mg/dL [facility] Urine Ketones Negative Negative mg/dL [facility] Nitrite Urine Negative Negative [facility] Leukocyte Esterase Urine Negative Negative [facility] 09/06/2024 12:1 4 PM EST 09/06/2024 12:19 PM EST Narrative [facility] - 09/06/2024 12:23 PM EST Urine, Clean Catch Generic External Data Provider LAB URINE ORDERAB LES Final Result Performing Organization Address [facility]/ZIP Co de Phone Number [facility] [address] [place] [phone] * Partial Thromboplastin Time, Activated (APTT) (09/06/2024 12:14 PM EST) Partial Thromboplastin Time 30.4 26.0 - 36.8 SEC [facility] Comment:For information rega rding the monitoring of direct thrombininhibitors, please refer to Pharmacy. 09/06/2024 12:1 4 PM EST 09/06/2024 12:19 PM EST Generic External Data Provider LAB BLOOD ORDERAB LES Final Result Performing Organization Address [facility] Co de Phone Number [facility] [address] [place] [phone] * Prothrombin Time-INR (09/06/2024 12:14 PM EST) Prothrombin Time 11.4 10.9 - 12.4 SEC [facility] INTERNATIONAL NORM RATIO 1.0 0.9 - 1.1 [facility] Comment:INTERNATIONAL NORMAL IZED RATIO (INR) [...] ORDERAB LES Final Result Performing Organization Address [facility] de Phone Number [facility] [address] [place] [phone] * Magnesium (09/06/2024 12:14 PM EST) Magnesium 2.1 1.6 - 2.6 mg/dL [facility] 09/06/2024 12:1 4 PM EST 09/06/2024 12:19 PM EST Generic External Data Provider LAB BLOOD ORDERAB LES Final Result Performing Organization Address [facility] de Phone Number [facility] [address] [place] [phone] * XR Chest 2 Views (09/06/2024 11:57 AM EST) Anatomical Region Laterality Modality Chest Radiographic Maxine ging 09/06/2024 11:5 7 AM EST Narrative 09/06/2024 1:08 PM EST ? [facility] ?[address] ?[place] [address] ?XRay Report ? Signed ? Patient: Pati Lazcano,Esequiel ?MR# ?? : [id number] ? : 1965 ?Acct:[id number] ? Age/Sex: 58 / M ?ADM Date: 03/03/25 ? Loc: HO.ED ? Attending Dr: ? Ordering Physician: Haleigh Arora ?? Date of Service: 09/06/24 ?? Procedure(s): XR chest 2V ?? Accession Number(s): [id number] ? cc: Haleigh Arora; Amy Pickett MD [...] DD/ 1157 ? TD/TT: 09/06/24 1245 ? Brim Stretching Machine Operator: ? Procedure Note Ted Cueva - 09/06/[address] [address] XRay Report Signed Patient: Zain Welch LMR# : [id number] : 1965Acct:[id number] Age/Sex: 58 / MADM Date: 09/06/24 Loc: .ED Attending Dr: Ordering Physician: Haleigh Arora Date of Service: 09/06/24 Procedure(s): XR chest 2V Accession Number(s): [id number] cc: Haleigh Arora; Amy Pickett MD EXAMINATION: [...] 09/06/24 1305 DD/ 1157 TD/TT: 09/06/24 1245 Brim Stretching Machine Operator: [facility] External Provider IMG XR PROCEDURES Final Result * Hm Colonoscopy (01/06/2018 8:00 AM EDT) Historical Provider HEALTH MAINTENANCE Final Result from Last 3 Months or Most Recently Relevant to Health Maintenance Insurance - [employer] [address] Care Teams Supervisor [employer] Relationship Specialty Start Date End Date Amy Pickett MD [address] [place] [id number] PCP - General Internal Medicine 04/07/23
--- OUTSIDE RECORDS SUMMARY | 2024-10-14 10:03 | XMS_ITS | Encounter Summary ---
Author Organization [employer] Address 75 [facility] 7 [place] [address] Care Team Providers Care Solution Maker Name Role Phone Amy Pickett MD Primary Care Pro vider Reason for Visit * Reason Onset Date Comments Med Refill 08/06/2024 Encounter Details Date Type Department Care Team ([facility] st Contact Info) Description 08/06/2024 Telephone [facility] [address] [place], [place] [phone] Amy Pickett MD [address] [place], [place] [phone] Med Refill Social History Tobacco Use Types [...] 0.083% nebulizer solution To be sent to: [facility]/pharmacy #[id number] - [address] documented in this encounter Plan of Treatment Upcoming Encounters Date Type Department Care Team (Late st Contact Info) Description 11/16/2024 9:45 AM EDT Office Visit [facility] [address] [place] [address] 11/24/2024 2:15 PM EDT Office Visit [facility] [address] [place] [address] Amy Pickett MD [address] [place] [address] documented as of this encounter Visit Diagnoses Not on filedocumented in this encounter Additional Health Concerns Assessment Noted Time PHQ-9 Depression Total Score: 10 024 9:41 AM EDT documented as of this encounter Care Teams Solution Maker Relationship Specialty Start Date End Date Amy Pickett MD [address] [place] [address] PCP - General Internal Medicine 04/07/23 documented as of this encounter
--- OUTSIDE RECORDS SUMMARY | 2024-10-14 10:03 | XMS_ITS | Encounter Summary ---
Author Organization [employer] Address [address] [place] [address] 7 [place] [address] Care Team Providers Care Underbaster Name Role Phone Elise Glover Primary Care Provider [phone] Amy Pickett MD Primary Care Pro vider Reason for Visit * Reason Comments Med Change Request Encounter Details Date Type Department Care Team (Late st Contact Info) Description 03/03/[address] [facility] [address] [place] [address] Elise Glover FNP [address] [place] [address] [place] [address] Essential hypertension Social History Tobacco Use Types [...] Description 11/16/2024 9:45 AM EDT Office Visit [facility] [address] [place] [address] 11/24/2024 2:15 PM EDT Office Visit [address] [address] Amy Pickett MD [address] [place] [address] documented as of this encounter Visit Diagnoses Diagnosis Essential hypertension Unspecified essential hypertension documented in this encounter Additional Health Concerns Assessment Noted Time PHQ-9 Depression Total Score: 24 023 10:05 AM EDT documented as of this encounter Care Teams Underbaster Relationship Specialty Start Date End Date Elise Glover FNP PCP - General Family Medicine 07/09/22 04/06/23 Amy Pickett MD [address] [place] [phone] PCP - General Internal Medicine 04/07/23 documented as of this encounter
== END 2024-10-14 09:51 | disposition home or self-care (01) ==
LOC: HO.HPS 09:17
PROVIDERS: PCP Student in an Organized Health Care Education/Training Program; Visit Provider Hospitalist
DX: J44.1 Chronic obstructive pulmonary disease with (acute) exacerbation (principal); G47.33 Obstructive sleep apnea (adult) (pediatric); R07.9 Chest pain, unspecified; J41.8 Mixed simple and mucopurulent chronic bronchitis
CPT/HCPCS: 99214

== ENCOUNTER → 2024-10-14 09:16 | Outpatient (BNVA) | payer OTHER, SELFPAY | PROVIDERS: PCP Student in an Organized Health Care Education/Training Program; Visit Provider Hospitalist | DX: J41.8 Mixed simple and mucopurulent chronic bronchitis (principal); G47.33 Obstructive sleep apnea (adult) (pediatric); R07.9 Chest pain, unspecified; Z99.89 Dependence on other enabling machines and devices | CPT/HCPCS: 96372; 99212; J2919 ==

== ENCOUNTER 2024-10-15 13:05 | Outpatient (AMB) | payer OTHER, SELFPAY ==
[2024-10-15 13:09] VITALS: BP 140/72; PULSE 67; BMI 30.2
--- NOTE | 2024-10-15 13:09 | MHC.OFFVIS ---
Vital Signs 10/15/24 13:09 Height 5 ft 4 in Weight 175 lb 14.862 oz BMI 30.2 BP 140/72 H Blood Pressure Location Rt brachial Position Sitting Pulse 67 Intake Visit Reasons: barium swallow follow up PT N/S last appt Intake Note: Zain presents in follow up of barium swallow and GERD. CC: Patient c/o stomach pain and diarrhea. He states that he was placed in a lot of medications for a lung infection yesterday. Ag Equipment Field Service Technician Required: No Accompanied by: Self / Same As Patient Allergies cat dander [CATS] Allergy (Unknown, Verified 10/15/24 13:17) UNKNOWN dog dander [DOGS] Allergy (Unknown, Verified 10/15/24 13:17) UNKNOWN pollen extracts [POLLEN] Allergy (Unknown, Verified 10/15/24 13:17) UNKNOWN tree and shrub pollen Allergy (Verified 10/15/24 13:17) sneeze ibuprofen Adverse Reaction (Verified 10/15/24 13:17) causes stomach to bleed HPI HPI barium swallow follow up PT N/S last appt: Details: Assessment & Plan (1) GERD (gastroesophageal reflux disease): Code(s): K21.9 - Gastro-esophageal reflux disease without esophagitis Category: Medical (2) Irritable bowel syndrome with diarrhea: Code(s): K58.0 - Irritable bowel syndrome with diarrhea Category: Medical (3) Periumbilical abdominal pain: Code(s): R10.33 - Periumbilical pain Category: Medical (4) Oropharyngeal dysphagia: Code(s): R13.12 - Dysphagia, oropharyngeal phase Category: Medical Plan He is here today with his dtr who is supportive He continues on his GI regimen which consists of Dexilant, famotidine, Creon, and p.r.n. Zofran. He is doing ok, no more diarrhea his stools are formed. He continues to have dysphagia in the early phase, he has a globus sensation and feels like I have a cold and have to spit up phlem, sometimes it is black and sometimes it is green. He has to have liquid to wash down solid foods. He tells me he has a drain from his tear d uct to his nose and he has a lot of allergies. ROV after barium swallow BARIUM SWALLOW. 03/04/24 ? FINDINGS: Lateral cine images of the oropharynx and hypopharynx demonstrate normal swallow mechanism with normal epiglottic inversion and soft palate elevation. No tracheal penetration, glottic or subglottic aspiration identified. No nasopharyngeal reflux present. Hypopharyngeal structures appear normal without evidence of mass or diverticulum. There was no significant cricopharyngeal achalasia. Status post cervical discectomy at C5-C6. Dual and single contrast images of the esophagus demonstrate normal caliber, contour, and mucosal pattern. There is felinization of the mid and distal esophageal mucosa. No evidence of stricture, mass, or ulcerations identified. There is to and fro motion of the barium with nonpropulsive tertiary contractions noted throughout the esophagus. A small type I hiatal hernia is present. No significant gastroesophageal reflux was seen during the course of the examination and on reflux views. Dual contrast and single contrast images of the stomach demonstrated a normal contour. There are multiple small foci of contrast pooling in the body and fundus of the stomach that may represent small superficial apthous ulcers. No masses are present. Contrast freely passed into the gastric antrum and duodenal bulb without delay. Single and air-contrast images of the duodenal bulb demonstrate no abnormality. The duodenal sweep has a normal appearance, course, and mucosal fold appearance. The imaged proximal jejunum has a normal fold pattern and caliber. FLUOROSCOPY TIME: 4 minutes 12 seconds Number of Spot Images: 10 Number of Cine: 15 DOSE AREA PRODUCT: 2536 uGy-m2 (microgray-meter squared) FL/FL barium swallow with air IMPRESSION: 1. Felinization of the mid and distal esophageal mucosa. This is a benign finding associated chronic reflux. 2. Esophageal dysmotility. 3. Small type I hiatal hernia. 4. Multiple small foci of contrast pooling in the body and fundus of the stomach that may represent small superficial abscess ulcers. Recommend correlation with EGD. 5. Status post ACDF C5-C6. TODAYS VISIT He continues on his GI regimen which consists of Dexilant, famotidine, Creon, and p.r.n. Zofran. He is worried about my lungs closing, saying that pullupillo put him on an abx and prednisone and changed some of his inhalers. 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 He is seeing orthopedics and had aknee injection and they are considering back injections. He is noticing diarrhea with greasy foods. He also has intermittent left mid abd pain. IT is not always there, it comes and goes. When he has it the problems will be all day long. He describes it as a burning/throbbing pain and he will splint the area. This has been for about 2 mos. He is unsure if the diarrhea is worse when he has the pain. I ask if he has been stressed, and he says he has been because he was watching his granddaughter and her mother stresses me out. He says he took the child to protective services beasue he did not feel he could care for her. ROV next avail [facility] Medical History Chest pain Nicotine dependence, cigarettes, uncomplicated Nausea and vomiting Dyspnea Photophobia Headache Syncope Dysphagia Seizure Lipoma of back STEPHON (obstructive sleep apnea) COPD (chronic obstructive pulmonary disease) Post herpetic neuralgia Multiple lipomas Osteoarthritis Gout History of peptic ulcer disease Hx of irritable bowel syndrome Chronic back pain Hx of insomnia History of panic attacks History of anxiety History of depression Asthma High cholesterol Hypertension Urinary retention Enlarged prostate Arthritis Slow urinary stream Marijuana use Alcohol abuse H/O ulcer disease Left flank pain Trochanteric bursitis, left hip Epidermal cyst Abdominal wall bulge Esophageal dysphagia Esophageal spasm Short frenulum of penis Balanitis Elevated blood pressure reading in office with diagnosis of hypertension Thalamic pain syndrome Abnormal loss of weight Painful orthopaedic hardware Pain in unspecified toe(s) Incisional pain Surgical History S/P placement of nerve stimulator H/O neck surgery Hx of arthroscopy of left knee H/O breast surgery S/P excision of lipoma History of bunionectomy History of cystoscopy History of colonoscopy History of esophagogastroduodenoscopy (EGD) Family History Family/Other Cancer Diabetes AIDS Brother Diabetes Myocardial infarction Father Enlarged prostate Mother Diabetes Asthma Social History Are you a primary customer care consultant to a significant other at home: No Do you presently have visiting nurse or other home services: No Alcohol intake: never Patient Tobacco Use Status: Current everyday Tobacco user Cigarettes Per Day: 4 Years Smoked: (onset 16yo, 1ppd x 42yrs, now 1/2ppd - 40pyh) Substance Use Type: Marijuana service: No Current occupational status: unemployed Review of Systems Const Denies fatigue, Denies fever(s), Denies night sweats, Denies poor appetite and Denies weight loss ENT Reports Normal hearing present, Denies dental pain, Denies dysphagia, Reports dizziness, Denies hearing loss, Denies mouth pain, Reports neck pain, Denies odynophagia, Denies throat swelling, Denies tongue swelling and Reports other (Dentition adequate) Card Reports no additional complaints and Reports syncope Resp Reports no additional complaints GI Details: Denies abdominal pain, Denies melena, Denies bloating, Denies hematochezia, Denies constipation, Denies GI cramping, Denies dysphagia, Denies excessive flatus, Denies early satiety, Reports heartburn, Reports diarrhea, Denies nausea, Denies odynophagia, Denies vomiting and Denies hematemesis Reports difficulty urinating Musc Reports abnormal gait, Reports back pain, Reports arthralgias and Reports neck pain Skin/Breast Denies pruritus, Denies lesions, Denies rash and Denies jaundice Neuro Reports Normal hearing present, Denies Abnormal speech present, Reports abnormal gait, Reports dizziness, Reports syncope and Reports paresthesias (Left arm) Psych Reports anxiety Endo Denies fatigue Aller/Immun Denies throat swelling and Denies tongue swelling Physical Exam Vital Signs: Last Vital Signs Pulse 67 10/15/24 13:09 BP 140/72 H 10/15/24 13:09 BMI result Body Mass Index 30.2 Const General: cooperative, no acute distress, well developed and well groomed Nutritional Appearance: well nourished and obese Orientation/consciousness: oriented to person, oriented to place and oriented to time Limitations: No language barrier, ambulation with cane and other limitations HEENT Head: Yes normocephalic and Yes atraumatic Eyes General: appearance normal, both eyes and all related structures Pupils: Equal, round and reactive pupils present Neck Neck: Yes normal visual inspection and Yes no lymphadenopathy Thyroid: Thyroid normal Resp Effort & Inspection: normal respiratory effort and able to speak in complete sentences Auscultation: clear to auscultation bilaterally Cardio Rate: regular rate Rhythm: regular rhythm Heart sounds: Normal, physiologic split S2 sound present Peripheral pulses: radial pulses present and posterior tibial pulses present GI Inspection: No distended, No Abdominal panniculus present and Yes obesity Palpation (GI): Soft to palpation, nontender, no guarding, not rigid and No hepatosplenomegaly present Percussion: Yes normal to percussion Auscultation: normal bowel sounds Rectal Exam - Male: Yes deferred Skin General skin exam: no rashes or lesions noted, turgor normal, skin not dry, no jaundice, No spider nevi and no striae Rashes: no rashes Nails: normal Neuro General: oriented to person, oriented to place and oriented to time Cranial nerves: Yes Equal, round and reactive pupils present and Yes Normal hearing present Speech: No Abnormal speech present Extrem General: Yes normal to inspection, No clubbing, No cyanosis and No edema Psych Appearance: grossly normal and well kempt Mental Status: mental status grossly normal Speech and movement: Normal speech and movement present Affect: normal affect Attitude: cooperative Thought process: Normal thought process present and not confabulating Thought content: Normal thought content present Insight: Poor insight present (Psych) Judgement: Poor judgement present (Psych) Assessment & Plan Assessment & Plan (1) GERD (gastroesophageal reflux disease): Code(s): K21.9 - Gastro-esophageal reflux disease without esophagitis Category: Medical (2) Irritable bowel syndrome with diarrhea: Code(s): K58.0 - Irritable bowel syndrome with diarrhea Category: Medical (3) Esophageal dysmotility: Comment: Barium swallow 03/03/2024= multiple non propulsive tertiary contractions along the entire esophagus Code(s): K22.4 - Dyskinesia of esophagus Category: Medical (4) Acute diarrhea: Code(s): R19.7 - Diarrhea, unspecified Category: Medical Plan He continues on his GI regimen which consists of Dexilant, famotidine, Creon, and p.r.n. Zofran. He is worried about my lungs closing, saying that pulm put him on an abx and prednisone and changed some of his inhalers. 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 He is seeing orthopedics and had aknee injection and they are considering back injections. He is noticing diarrhea with greasy foods. He also has intermittent left mid abd pain. IT is not always there, it comes and goes. When he has it the problems will be all day long. He describes it as a burning/throbbing pain and he will splint the area. This has been for about 2 mos. He is unsure if the diarrhea is worse when he has the pain. I ask if he has been stressed, and he says he has been because he was watching his granddaughter and her mother stresses me out. He says he took the child to protective services because he did not feel he could care for her. In the past he did well on dicyclomine and I think will restart this. ROV next avail Orders: Orders Calprotectin, Fecal Today R19.7 - Diarrhea, unspecified Rast Allergen Today K58.0 - Irritable bowel syndrome with diarrhea C Reactive Protein Today R19.7 - Diarrhea, unspecified Transglutaminase IgA Today K58.0 - Irritable bowel syndrome with diarrhea Transglutaminase Ab IgG Today K58.0 - Irritable bowel syndrome with diarrhea Medications: New dicyclomine 20 mg PO QID 120 tabs 6RF 30 days K58.0 - Irritable bowel syndrome with diarrhea, R19.7 - Diarrhea, unspecified Refilled dexlansoprazole 60 mg PO DAILY 90 caps 1RF famotidine 40 mg PO BEDTIME 90 tabs 2RF K21.9 - Gastro-esophageal reflux disease without esophagitis Coding Level of Care Code Est Pt Level 3 (62763) Diagnoses GERD (gastroesophageal reflux disease) K21.9 Irritable bowel syndrome with diarrhea K58.0 Esophageal dysmotility K22.4 Acute diarrhea R19.7
--- OUTSIDE RECORDS SUMMARY | 2024-10-15 13:34 | XMS_ITS | Encounter Summary ---
Author Organization [employer] Address 75 [facility] 7 [place] [address] Care Team Providers Care Patient Admitting Representative Name Role Phone Amy Pickett MD Primary Care Pro vider Reason for Visit * Reason Onset Date Comments Med Refill 05/13/2024 Encounter Details Date Type Department Care Team ([facility] st Contact Info) Description 05/13/2024 Telephone [facility] [address] [place], [place] [phone] Amy Pickett MD [address] [place], [place] [phone] Med Refill Social History Tobacco Use Types [...] immediate release tablet To be sent to: [facility]/pharmacy #[id number] - [place], [place] - [address] [place] [address] documented in this encounter Plan of Treatment Upcoming Encounters Date Type Department Care Team (Late st Contact Info) Description 11/16/2024 9:45 AM EDT Office Visit [facility] [address] [place] [address] [phone] 11/24/2024 2:15 PM EDT Office Visit [facility] [address] [place] [address] Amy Pickett MD [address] [place] [address] documented as of this encounter Visit Diagnoses Not on filedocumented in this encounter Additional Health Concerns Assessment Noted Time PHQ-9 Depression Total Score: 10 024 9:41 AM EDT documented as of this encounter Care Teams Patient Admitting Representative Relationship Specialty Start Date End Date Amy Pickett MD [address] [place] [address] PCP - General Internal Medicine 04/07/23 documented as of this encounter
--- OUTSIDE RECORDS SUMMARY | 2024-10-15 13:34 | XMS_ITS | Encounter Summary ---
Author Organization [employer] Address 75 [facility] 7t [place] [address] Care Team Providers Care Hoop Punch Operator Helper Name Role Phone Amy Pickett MD Primary Care Pro vider Encounter Details Date Type Department Care Team (Late st Contact Info) Description 09/01/2024 Telephone [facility] [address] [place], [place] [phone] Amy Pickett MD [address] [place], [place] [phone] Social History Tobacco Use Types Packs/Day Years [...] 11/16/2024 9:45 AM EDT Office Visit [facility] [address] [place] [phone] 11/24/2024 2:15 PM EDT Office Visit [facility] [address] [place] [phone] Amy Pickett MD [address] [place] [address] documented as of this encounter Visit Diagnoses Not on filedocumented in this encounter Additional Health Concerns Assessment Noted Time PHQ-9 Depression Total Score: 10 024 9:41 AM EDT documented as of this encounter Care Teams Hoop Punch Operator Helper Relationship Specialty Start Date End Date Amy Pickett MD [address] [place] [address] PCP - General Internal Medicine 04/07/23 documented as of this encounter
--- OUTSIDE RECORDS SUMMARY | 2024-10-15 13:34 | XMS_ITS | Encounter Summary ---
Author Organization [employer] Address 75 [facility] 7 [place] [address] Care Team Providers Care Senior Strategy Analyst Name Role Phone Amy Pickett MD Primary Care Pro vider Reason for Visit * Reason Onset Date Comments Appointment Request 10/05/2024 Encounter Details Date Type Department Care Team ([facility] st Contact Info) Description 10/05/2024 Telephone [facility] [address] [place], [place] [phone] Amy Pickett MD [address] [place], [place] [phone] Appointment Request Social History Tobacco Use Types [...] able to make it. Contact Isa at [phone] documented in this encounter Plan of Treatment Upcoming Encounters Date Type Department Care Team (Late st Contact Info) Description 11/16/2024 9:45 AM EDT Office Visit [facility] [address] [place] [address] [phone] 11/24/2024 2:15 PM EDT Office Visit [facility] [address] [place] [address] Amy Pickett MD [address] [place], [place] [phone] documented as of this encounter Visit Diagnoses Not on filedocumented in this encounter Additional Health Concerns Assessment Noted Time PHQ-9 Depression Total Score: 10 024 9:41 AM EDT documented as of this encounter Care Teams Senior Strategy Analyst Relationship Specialty Start Date End Date Amy Pickett MD [address] [place] [phone] PCP - General Internal Medicine 04/07/23 documented as of this encounter
--- OUTSIDE RECORDS SUMMARY | 2024-10-15 13:34 | XMS_ITS | Encounter Summary ---
Author Organization [employer] Address 75 [facility] 7 [place] [address] Care Team Providers Care Graduate Fellow Name Role Phone Amy Pickett MD Primary Care Pro vider Reason for Visit * Reason Onset Date Comments Results 10/01/2024 Encounter Details Date Type Department Care Team ([facility] st Contact Info) Description 10/01/2024 Telephone [facility] MED[facility] [address] [place], [place] [phone] Amy Pickett MD [address] [place], [place] [phone] Results Social History Tobacco Use Types Packs/Day [...] Blood Test Date when done: 09/29/24 [place] [facility] [place] pt at [phone] documented in this encounter Plan of Treatment Upcoming Encounters Date Type Department Care Team (Late st Contact Info) Description 11/16/2024 9:45 AM EDT Office Visit [facility] [address] [place] [phone] 11/24/2024 2:15 PM EDT Office Visit [facility] [address] [place] [phone] Amy Pickett MD [address] [place] [phone] documented as of this encounter Visit Diagnoses Not on filedocumented in this encounter Additional Health Concerns Assessment Noted Time PHQ-9 Depression Total Score: 10 024 9:41 AM EDT documented as of this encounter Care Teams Graduate Fellow Relationship Specialty Start Date End Date Amy Pickett MD [address] [place] [phone] PCP - General Internal Medicine 04/07/23 documented as of this encounter
--- OUTSIDE RECORDS SUMMARY | 2024-10-15 13:34 | XMS_ITS | Clinical Summary ---
Author Organization [facility] Address [address] [place] [address] Care Team Providers Care Plug Saw Operator Name Role Phone Donna Harmon MD Primary [...] 12/23/2016 Influenza Vaccine (Season Ended) 2025 [facility] [place] [id number] Care Teams Plug Saw Operator Relationship Specialty Start Date End Date Donna Harmon MD PCP - General 05/11/19
--- OUTSIDE RECORDS SUMMARY | 2024-10-15 13:34 | XMS_ITS | Encounter Summary ---
Author Organization [employer] Address [address] [place] [address] 7 [place] [address] Care Team Providers Care Milk Of Lime Slaker Name Role Phone Elise Glover Primary Care Provider +1- [phone] Amy Pickett MD Primary Care Pro vider Reason for Visit * Reason Comments Med Change Request Encounter Details Date Type Department Care Team (Late st Contact Info) Description 03/03/2023 Refill [facility] [address] [place] [address] Elise Glover FNP [address] [place] [address] Dept [place] [address] Essential hypertension Social History Tobacco Use Types [...] Description 11/16/2024 9:45 AM EDT Office Visit [facility] [address] [place] [address] 11/24/2024 2:15 PM EDT Office Visit [address] [address] Amy Pickett MD [address] [place] [address] documented as of this encounter Visit Diagnoses Diagnosis Essential hypertension Unspecified essential hypertension documented in this encounter Additional Health Concerns Assessment Noted Time PHQ-9 Depression Total Score: 24 023 10:05 AM EDT documented as of this encounter Care Teams Milk Of Lime Slaker Relationship Specialty Start Date End Date Elise Glover FNP PCP - General Family Medicine 07/09/22 04/06/23 Amy Pickett MD [address] [place] [address] PCP - General Internal Medicine 04/07/23 documented as of this encounter
--- OUTSIDE RECORDS SUMMARY | 2024-10-15 13:34 | XMS_ITS | Encounter Summary ---
Author Organization [employer] Address [address] [facility] 7t [place] [address] Care Team Providers Care Government Sales Manager Name Role Phone Amy Pickett MD Primary Care Pro vider Encounter Details Date Type Department Care Team (Late st Contact Info) Description 09/01/2024 Telephone [facility] [address] [place], [place] [phone] Amy Pickett MD [address] [place], [place] [phone] Social History Tobacco Use Types Packs/Day Years [...] 11/16/2024 9:45 AM EDT Office Visit [facility] [address] [place] [address] 11/24/2024 2:15 PM EDT Office Visit [facility] [address] [place] [address] Amy Pickett MD [address] [place] [address] documented as of this encounter Visit Diagnoses Not on filedocumented in this encounter Additional Health Concerns Assessment Noted Time PHQ-9 Depression Total Score: 10 024 9:41 AM EDT documented as of this encounter Care Teams Government Sales Manager Relationship Specialty Start Date End Date Amy Pickett MD [address] [place] [phone] PCP - General Internal Medicine 04/07/23 documented as of this encounter
--- OUTSIDE RECORDS SUMMARY | 2024-10-15 13:34 | XMS_ITS | Clinical Summary ---
Author Organization [employer] [facility] Address [address] [place] [address] Care Team Providers Care Airplane Cabin Attendant Name Role Phone Ba Maria MD Primary Care Provider Surgical History Surgery Date Site/Laterality Comments FOOT SURGERY PROCEDURE: ID UNLISTED PROCEDURE FOOT/TOES; COMMENT: left foot bunion removal LIPOMA RESECTION PROCEDURE: SKIN TISSUE EXCISION(LIPOMA) OTHER SURGICAL HISTORY PROCEDURE: ---- OTHER ----; COMMENT: urethral surgeries done? three times in [facility] for difficulty urinating Medical History Medical History Date Comments Chronic back pain DX:Chronic alonso k pain Asthma DX:Asthma Anxiety DX:Anxiety; COMM ENT: follows at [facility] Family History Medical History Relation Name [...] age to complete this topic Care Teams Airplane Cabin Attendant Relationship Specialty Start Date End Date Ba Maria MD PCP - General Internal Medicine 10/26/12
--- OUTSIDE RECORDS SUMMARY | 2024-10-15 13:34 | XMS_ITS | Encounter Summary ---
Author Organization [employer] Address 75 [facility] 7 [place] [address] Care Team Providers Care Clerical Production Worker Name Role Phone Amy Pickett MD Primary Care Pro vider Reason for Visit * Reason Onset Date Comments Med Refill 04/09/2024 Encounter Details Date Type Department Care Team ([facility] st Contact Info) Description 04/09/2024 Telephone [facility] [address] [place], [place] [phone] Amy Pickett MD [address] [place], [place] [phone] Med Refill Social History Tobacco Use Types [...] immediate release tablet To be sent to: [facility]/pharmacy #[id number] - [address] documented in this encounter Plan of Treatment Upcoming Encounters Date Type Department Care Team (Late st Contact Info) Description 11/16/2024 9:45 AM EDT Office Visit [facility] [address] [place] [address] 11/24/2024 2:15 PM EDT Office Visit [facility] [address] [place] [address] Amy Pickett MD [address] [place], [place] [phone] documented as of this encounter Visit Diagnoses Not on filedocumented in this encounter Additional Health Concerns Assessment Noted Time PHQ-9 Depression Total Score: 10 024 9:41 AM EDT documented as of this encounter Care Teams Clerical Production Worker Relationship Specialty Start Date End Date Amy Pickett MD [address] [place] [phone] PCP - General Internal Medicine 04/07/23 documented as of this encounter
--- OUTSIDE RECORDS SUMMARY | 2024-10-15 13:34 | XMS_ITS | Encounter Summary ---
Author Organization [employer] Address 75 [facility] 7t [place] [address] Care Team Providers Care Music Internship Name Role Phone Amy Pickett MD Primary Care Pro vider Encounter Details Date Type Department Care Team (Late st Contact Info) Description 10/01/2024 Orders Only [facility] [address] [place], [place] [phone] Za Preston MD [address] [place] [address] Social History Tobacco Use Types Packs/Day Years [...] Description 11/16/2024 9:45 AM EDT Office Visit [facility] [address] [place] [address] 11/24/2024 2:15 PM EDT Office Visit [facility] [address] [place] [address] Amy Pickett MD [address] [place] [address] documented as of this encounter Visit Diagnoses Not on filedocumented in this encounter Additional Health Concerns Assessment Noted Time PHQ-9 Depression Total Score: 10 024 9:41 AM EDT documented as of this encounter Care Teams Music Internship Relationship Specialty Start Date End Date Amy Pickett MD [address] [place] [phone] PCP - General Internal Medicine 04/07/23 documented as of this encounter
--- OUTSIDE RECORDS SUMMARY | 2024-10-15 13:35 | XMS_ITS | Encounter Summary ---
Author Organization [employer] Address [address] [facility] 7 [place] [address] Care Team Providers Care Digital Account Executive Name Role Phone Amy Pickett MD Primary Care Pro vider Reason for Visit * Reason Onset Date Comments Appointment Request 09/02/2023 Encounter Details Date Type Department Care Team ([facility] st Contact Info) Description 09/02/2023 Telephone [facility] [address] [place], [place] [phone] Amy Pickett MD [address] [place], [place] [phone] Appointment Request Social History Tobacco Use Types [...] from pt requesting a transfer patient appointment. 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 Pt states he needs appointment as soon as possible due to controlled medication. States needs to be seen bya new provider to continue medication. Please contact pt at [phone] documented in this encounter Plan of Treatment Upcoming Encounters Date Type Department Care Team (Late st Contact Info) Description 11/16/2024 9:45 AM EDT Office Visit [facility] [address] [place] [address] 11/24/2024 2:15 PM EDT Office Visit [facility] [address] [place] [address] Amy Pickett MD [address] [place] [address] documented as of this encounter Visit Diagnoses Not on filedocumented in this encounter Additional Health Concerns Assessment Noted Time PHQ-9 Depression Total Score: 24 023 10:05 AM EDT documented as of this encounter Care Teams Digital Account Executive Relationship Specialty Start Date End Date Amy Pickett MD [address] [place] [address] PCP - General Internal Medicine 04/07/23 documented as of this encounter
--- OUTSIDE RECORDS SUMMARY | 2024-10-15 13:35 | XMS_ITS | Encounter Summary ---
Author Organization [employer] Address [address] [place] [address] Care Team Providers Care Supervisor [employer] Name Role Phone Elise Glover Primary Care Provider +1- [phone] Amy Pickett MD Primary Care Pro vider Encounter Details Date Type Department Care Team (Late st Contact Info) Description 01/14/2023 Orders Only [address] [address] Elise Glover FNP [address] [place] [address] Dept [place] [address] Social History Tobacco Use Types Packs/Day Years [...] Description 11/16/2024 9:45 AM EDT Office Visit [facility] [address] [place] [address] 11/24/2024 2:15 PM EDT Office Visit [address] [address] Amy Pickett MD [address] [place] [address] documented as of this encounter Visit Diagnoses Not on filedocumented in this encounter Additional Health Concerns Assessment Noted Time PHQ-9 Depression Total Score: 24 10/01/ 023 10:05 AM EDT documented as of this encounter Care Teams Supervisor [employer] Relationship Specialty Start Date End Date Elise Glover FNP PCP - General Family Medicine 07/09/22 04/06/23 Amy Pickett MD [address] [place] [address] PCP - General Internal Medicine 04/07/23 documented as of this encounter
--- OUTSIDE RECORDS SUMMARY | 2024-10-15 13:35 | XMS_ITS | Clinical Summary ---
Author Organization [employer] Address [address] [facility] [address] [place] [address] Care Team Providers Care Record Keeper Name Role Phone Amy Pickett MD Primary [...] 022 Active Nebulizers (Comp-Air Elite Compact Neb) [facility] Active Blood Pressure Monitor kit 1 each [...] vomiting. 60 tablet 1 023 Active pancrelipase, Rqt-Vxnp-Elxg, (Creon) 4013-6037 units capsule Take 1 capsule by mouth [...] oxyCODONE (Roxicodone) 15 MG immediate release tabletIndicatio ns:PRINT PRODUCTION COORDINATOR checked 06/13/22 Take 1 tablet (15 mg) by mouth every 6 (six) hours for 28 days. 112 tablet 025 2024 Active tamsulosin (Flomax) 0.4 MG 24 hr capsule TAKE 1 CAPSULE (0.4 MG) BY MOUTH IN THE MORNING. EVERY DAY 1/2 HOUR FOLLOWING THE SAME MEAL EACH DAY 90 capsule 024 2024 Discontinued oxyCODONE (Roxicodone) 15 MG immediate release tabletIndicatio ns:PRINT PRODUCTION COORDINATOR checked 06/13/22 Take 1 tablet (15 mg) [...] recommended. -Supportive care advised. -Isolation recommendations discussed. halfway 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 2023 Overview (09/28/2024): Dx: chronic neck, low back pain, LE claudication Rx: Oxycodone 15mg IR q 6 hours Last STAVE BLOCK ROLLER agreement: 09/28/24 Additional considerations: Alprazolam 1mg for anxiety Timeline: -previous positive utox for cocaine 11/2023 -09/28/24: group visit - utox/pill count wnl Chronic obstructive pulmonar y disease, unspecified COPD type 05/16/2024 Overview (09/05/2024): Following with [facility] pulmonology-Dr. Maldonado Continue with Combivent inhaler Claudication [...] Injections 11/2022 Encouraged stretching Will refer to [facility] Continue STAVE BLOCK ROLLER at this time. Will perform random Utox [...] C7 fracture seen on CT scan at [facility] 10/28/23 He participated fully in group [...] C7 fracture seen on CT scan at [facility] 10/28/23 He participated fully in group [...] Injections 11/2022 Encouraged stretching Will refer to [facility] physical therapy Continue STAVE BLOCK ROLLER at this time. Will perform random Utox [...] lumbar pain. Encouraged stretching Will refer to [facility] Continue STAVE BLOCK ROLLER at this time. Will perform random Utox [...] Type Department Care Team Description 10/05/2024 Telephone [facility] [address] [place] [address] 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 RN 10/05/[address] [address] Amy Pickett MD Appointment Request 10/01/2024 Orders Only [facility] [address] [place] [address] Za Preston MD 10/01/[address] [address] Amy Pickett MD Results 09/29/2024 Orders Only [facility] [address] [place] [address] Brent Hanson MD 09/28/2024 9:45 AM EDT Office Visit [address] [address] Holly Wills FNP Cervical spondylosis without myelopathy (Primary Dx); 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 09/28/[address] [address] Amy Pickett MD Chronic pain of both knees; Chronic low back pain, unspecified back pain laterality, unspecified whether sciatica present 09/28/2024 Travel 09/22/2024 6:20 PM EDT Office Visit [facility] [address] [place] [phone] Brent Hanson MD STD exposure (Primary Dx); Balanitis; Left hip pain 09/22/2024 Telephone [facility] [address] [place] [phone] Amy Pickett MD Nurse Triage 09/19/2024 Refill [facility] [address] [place], [place] [phone] Chioma Mojica MD 09/07/2024 9:20 AM EST Office Visit [facility] [address] [address] Bri Noriega MD Viral infection 09/07/2024 Telephone [facility] [address] [place] [phone] Amy Pickett MD [employer] (Boost, strawberry tetra brik 8oz ()) 09/06/2024 Orders Only GENERIC EXTERNAL DATA DEPARTMENT Provider, Generic External Data 09/06/2024 Telephone [facility] [address] [place] [phone] Amy Pickett MD [employer] Medical Equipment (Boost recert) 09/01/2024 Refill [facility] [address] [place] [phone] Amy Pickett MD Chronic pain of both knees; Chronic low back pain, unspecified back pain laterality, unspecified whether sciatica present 09/01/2024 Refill [facility] [address] [place] [address] [phone] Amy Pickett MD Moderate persistent asthma without complication 09/01/2024 Telephone [facility] [address] [place] [address] [phone] Amy Pickett MD 09/01/2024 [address]phone [address] [place] [address] Amy Pickett MD 08/31/2024 9:45 AM EST Office Visit [facility] [address] [place] [address] Holly Wills, CARDROOM DRAWING RUNNER Cervical spondylosis without myelopathy (Primary Dx); halfway 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; Chronic obstructive pulmonary disease, unspecified COPD type ([facility]) 08/31/2024 Refill [facility] [address] [place] [address] Holly Wills, CARDROOM DRAWING RUNNER Moderate persistent asthma without complication 08/31/2024 Travel 08/25/2024 Telephone [facility] [address] [place] [address] Shu Martínez MA October08/15/2024 Refill [facility] [address] [place] [address] Amy Pickett MD 08/06/2024 Telephone [facility] [address] [place] [address] Amy Pickett MD Med Refill 08/06/2024 Refill [facility] [address] [place] [address] Amy Pickett MD Chronic pain of both knees; Chronic low back pain, unspecified back pain laterality, unspecified whether sciatica present 08/04/2024 Refill [facility] [address] [place] [address] Amy Pickett MD 08/04/2024 Telephone [facility] [address] [place] [address] 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 RN 08/04/2024 Travel 08/03/2024 Telephone [facility] [address] [place] [address] Amy Pickett MD Appointment Request from Last [...] Description 11/16/2024 9:45 AM EDT Office Visit [facility] [address] [place] [phone] 11/24/2024 2:15 PM EDT Office Visit [facility] [address] [place] [phone] mAy Pickett MD [address] [place] [address] Health Maintenance Due Date Last Done Comments [...] 1:23 PM EDT Cervical spondylosis without myelopathy 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 HM COLONOSCOPY Routine 01/06/2018 8:00 AM EDT from Last 3 Months or Most Recently Relevant to Health Maintenance Results * Syphilis Screen (09/29/2024 3:37 PM EDT) Syphilis Screen Nonreactive Nonreactive [facility] Blood 09/29/2024 3:37 PM EDT 09/29/2024 3:38 PM EDT us Brent Fischer MD LAB BLOOD ORDERABL ES Final Result Performing Organization Address [facility]/ZIP Co de Phone Number [facility] [address] [place] [phone] * Vitamin B12 (Cobalamin) and Folate Panel, Serum (09/29/2024 3:37 PM EDT) Pathologist [facility] Vitamin B12 338 200 - 900 pg/mL [facility] Comment:NORMAL 200-900 PG/ML INDETERMINATE 160-199 PG/ML DEFICIENT < 160 PG/ML Folate 7.6 > or = 4.0 ng/mL [facility] Comment:Reference Values:> o r = 4.0 ng/mL< 4.0 ng/mL suggests folate deficiency Methotrexate, aminopterin and folinic acid(leucovorin) are chemotherapeutic agents whose molecularstructures are similar to folate; therefore, the Architectfolate assay cannot be used for patients using these drugs. Blood 09/29/2024 3:37 PM EDT 09/29/2024 3:38 PM EDT us Amy [place] MD LAB BLOOD ORDERAB LES Final Result Performing Organization Address [facility] Co de Phone Number [facility] [address] [place] [phone] * Hepatitis C Viral RNA, Quantitative, Real-Time PCR (09/29/2024 3:37 PM EDT) [facility] [address] Hepatitis C Viral Load <15 NOT DETECTED NOT DETECTED IU/mL [facility] HCV Log PCR <1.18 NOT DETECTED NOT DETECTED Log IU/mL [facility] Comment:For additional infor hector, please refer [email or web address].[email or web address]/faq/[email or web address](This link is being provided for informational/educational purposes only.)THIS TEST WAS PERFORMED AT:[employer] [address] [place] [phone] GAUTAM MD 09/29/2024 3:37 PM EDT 09/30/2024 12:15 PM EDT Brent Fischer MD LAB BLOOD ORDERABL ES Final Result Performing Organization Address [facility]/ZIP Co de Phone Number [facility] [address] [place] [phone] [phone] * (ABNORMAL) Hepatitis C Antibody with Reflex to HCV, RNA, Quantitative, Real- Time PCR (09/29/2024 3:37 PM EDT) Hepatitis C Antibody Reactive( A) Nonreactive [facility] Comment:Presumptive evidence of antibodies to HCV. Blood Venous blood specimen / Unknown 09/29/2024 3:37 PM EDT 09/29/2024 3:38 PM EDT Brent Fischer MD LAB BLOOD ORDERABL ES Final Result Performing Organization Address City/[facility] Co de Phone Number [facility] [address] [place] [phone] * HIV-1/2 Antigen and Antibodies, Fourth Generation, with Reflexes (09/29/2024 3:37 PM EDT) HIV AB/AG Nonreactive Nonreactive [facility] Comment:HIV-1 p24 Ag and/or HIV-1/HIV-2 Ab not detected.A test result that is nonreactive does not exclude thepossibility of exposure to or infection with HIV-1 and/orHIV-2. Nonreactive results in this assay for individualswith prior exposure to HIV-1 and/or HIV-2 may be due toantigen and antibody levels that are below the limit ofdetection of this assay.The [employer] HIV Ag/Ab Combo assay result andsupplemental assay results should be interpreted inconjunction with the patient's clinical presentation,history and other laboratory results. If the results areinconsistent with clinical evidence, additional testing issuggested to confirm the result. Blood Venous blood specimen / Unknown 09/29/2024 3:37 PM EDT 09/29/2024 3:38 PM EDT us Brent Fischer MD LAB BLOOD ORDERABL ES Final Result Performing Organization Address [facility]/ZIP Co de Phone Number [facility] [address] [place] [phone] * C-reactive Protein (09/29/2024 3:37 PM EDT) C Reactive Protein 0.18 < or = 0.50 mg/dL [facility] Blood Venous blood specimen / Unknown 09/29/2024 3:37 PM EDT 09/29/2024 3:38 PM EDT us Amy [place] MD LAB BLOOD ORDERAB LES Final Result Performing Organization Address City/[facility]/ZIP Co de Phone Number [facility] [address] [place] [phone] * (ABNORMAL) Lipid Panel, Standard (09/29/2024 3:37 PM EDT) Triglycerides 155(H) <150 mg/dL [facility] Comment:Desirable Triglyceri de: less than 150 mg/dLBorderline High Triglyceride 150-199 mg/dLHigh Triglyceride: 200-499 mg/dLVery High Triglyceride: greater than or equal to 5OO mg/dL Cholesterol 211(H) <200 mg/dL [facility] Comment:Desirable Cholestero l: less than 200 mg/dLBorderline High Cholesterol: 200-239 mg/dLHigh Cholesterol: greater than 239 mg/dL LDL Cholesterol Calculated 131(H) <100 mg/dL [facility] Comment:Desirable LDL: less than 100 mg/dLNear Optimal/Above Optimal LDL: 110- 129 mg/dLBorderline High LDL: 130-159 mg/dLHigh LDL: 160-189 mg/dLVery High LDL: greater than or equal to 190 mg/dL HDL Cholesterol 49 >40 mg/dL [facility] Comment:Desirable HDL: great er than 40 mg/dL Note: This HDL assay may give artificially low results in patients with liver disease. Blood Venous blood specimen / Unknown 09/29/2024 3:37 PM EDT 09/29/2024 3:38 PM EDT Amy [place] MD LAB BLOOD ORDERAB LES Final Result [facility] [address] [place] [phone] [phone] * (ABNORMAL) Comprehensive Metabolic Panel (09/29/2024 3:37 PM EDT) Only the most recent of2 resultswithin the time period is included. Sodium 140 135 - 145 mmol/L [facility] Potassium 4.5 3.3 - 5.1 mmol/L [facility] Chloride 109(H) 96 - 108 mmol/L [facility] Carbon Dioxide 26 22 - 29 mmol/L [facility] Anion Gap 10(L) 12 - 20 [facility] Urea Nitrogen (BUN) 21(H) 9 - 16 mg/dL [facility] Creatinine, Serum 0.94 0.5 - 1.4 mg/dL [facility] Estimated Glomerular Filt Rate >60 [facility] Comment:Chronic Kidney Disea se: Estimated GFR < 60 mL/min/[id number] Kidney Disease: Estimated GFR < 15 mL/min/1.73m2 Glucose 108 60 - 115 mg/dL [facility] Calcium 9.7 8.4 - 10.2 mg/dL [facility] Bilirubin, Total 0.3 0.0 - 1.0 mg/dL [facility] Aspartate Amino Transferase 15 5 - 37 U/L [facility] Alanine Aminotransferase 21 0 - 40 U/L [facility] Total Protein 7.0 6.5 - 8.0 g/dL [facility] Albumin Level 4.2 3.5 - 5.0 g/dL [facility] Alkaline Phosphatase 92 39 - 117 U/L [facility] Blood Venous blood specimen / Unknown 09/29/2024 3:37 PM EDT 09/29/2024 3:38 PM EDT Amy [place] MD LAB BLOOD ORDERAB LES Final Result [facility] [address] [place] [phone] * Chlamydia/N. Gonorrhoeae RNA, TMA, Urogenitial (09/29/2024 12:00 AM EDT) Only the most recent of2 resultswithin the time period is included. CT PCR NOT DETECTED Not Detect. [facility] Comment:A not detected test result [...] psychologicalconsequences. NG PCR NOT DETECTED Not Detect. [facility] Comment:A not detected test result [...] medical, social or psychologicalconsequences. 09/29/2024 09/29/2024 Narrative [facility] - 09/30/2024 5:59 AM EDT Urine Brent Fischer MD LAB MICROBIOLOGY - GENERAL ORDERABLES Final Result [facility] [address] [place] [address] [phone] * POCT ROBIN-14 Urine Drug Screen [...] 09/28/2024 1:23 PM EDT Narrative Flores Crook [place] - 09/28/2024 1:26 PM EDT Lot:[id number] Exp: 02/24/2028 Holly GARDNER POINT OF CARE TEST ENTER/EDIT ORDERABLES Final Result * POCT Influenza A manually resulted (09/07/2024 10:01 AM EST) Rapid Influenza A Ag Negative Negative, Indeterminate QC Media Lot # [id number] Lot# Expiration Date 100,826 Swab Nasopharyngeal structure / Unknown 09/07/2024 10:01 AM EST Bri Noriega MD POINT OF CARE TEST ENTER/E DIT ORDERABLES Final Result * POCT Influenza B manually resulted (09/07/2024 9:53 AM EST) [facility] [address] Rapid Influenza B Ag Negative Negative, Indeterminate QC Media Lot # [id number] Lot# Expiration Date [id number] Swab 09/07/2024 9:53 AM EST Bri Noriega MD POINT OF CARE TEST ENTER/E DIT ORDERABLES Final Result * POCT Rapid COVID Ag (09/07/2024 9:52 AM EST) [facility] [address] Rapid COVID Ag Negative QC Media Lot # [id number] Lot# Expiration Date 91,426 Swab 09/07/2024 9:52 AM EST Bri Noriega MD POINT OF CARE TEST ENTER/E DIT ORDERABLES Final Result * High Sensitivity Troponin I (09/06/2024 12:14 PM EST) [facility] [address] TROPONIN I HIGH SENSITIVITY <2.7 <3.5 - 35.0 ng/L [facility] Comment:The [place] high sens itivity Troponin-I results should beused in conjunction with other diagnostic information suchas ECG, clinical observations and information, and patientsymptoms to aid in the diagnosis of AL. 09/06/2024 12:1 4 PM EST 09/06/2024 12:19 PM EST Generic External Data Provider LAB BLOOD ORDERAB LES Final Result [facility] [address] [place] [phone] * SARS-CoV-2 RNA, Influenza A/B, and RSV RNA, Ql NAAT (09/06/2024 12:14 PM EST) [facility] [address] Influenza A PCR NEGATIVE Negative [facility] Influenza B PCR NEGATIVE Negative [facility] Resp Syncy Virus RNA Qual PCR NEGATIVE Negative [facility] SARS COV2 PCR NEGATIVE Negative [facility] Comment:All test results mus t [...] use by authorized laboratories.Testing performed on the [employer] GeneXpert utilizingreal-time RT-PCR.All SARS CoV2 and positive influenza A/B results arereported to [facility]. 09/06/2024 12:1 4 PM EST 09/06/2024 12:19 PM EST us Generic External Data Provider LAB MICROBIOLOGY - GENERAL ORDERABLES Final Result [facility] [address] [place] [phone] * (ABNORMAL) CBC auto differential (09/06/2024 12:14 PM EST) White Blood Count 7.6 4.8 - 10.8 X10*3/uL [facility] Red Blood Count 4.30(L) 4.60 - 5.80 X10*6/uL [facility] Hemoglobin 13.3(L) 14.0 - 18.0 g/dl [facility] Hematocrit 40.1(L) 42.0 - 52.0 % [facility] Mean Corpuscular Volume 93.3 80.0 - 98.0 fL [facility] Mean Corpuscular Hemoglobin 30.9 27.0 - 33.0 pg [facility] Mean Corpuscular HGB Conc 33.2 31.0 - 36.0 g/dl [facility] Red Cell Distribution Width 14.2 11.0 - 16.0 % [facility] Platelet Count 248 160 - 400 X10*3/uL [facility] Mean Platelet Volume 9.2(L) 9.4 - 12.4 fL [facility] Neutrophils Percent Auto 73.0 45 - 73 % [facility] Imm Gran Pct Auto 0.3 0.0 - 0.4 % [facility] Lymphocytes Percent Auto 20.0 20 - 40 % [facility] Monocytes Percent Auto 6.2 2 - 11 % [facility] Eosinophils Percent Auto 0.4 0 - 4 % [facility] Basophils Percent Auto 0.1 0 - 2 % [facility] NRBC Pct Auto 0.0 0.0 - 0.2 /100WBC [facility] Neutrophils Absolute Auto 5.5 2.0 - 8.3 x10*3/uL [facility] Imm Gran Abs Auto 0.02 0.00 - 0.03 X10*3/uL [facility] Lymphocytes Absolute Auto 1.5 1.2 - 4.9 X10*3/uL [facility] Monocytes Absolute Auto 0.5 0.1 - 1.2 X10*3/uL [facility] Eosinophils Absolute Auto 0.0 0.0 - 0.4 X10*3/uL [facility] Basophils Absolute Auto 0.0 0.0 - 0.2 X10*3/uL [facility] NRBC Abs Auto 0.000 0.0 - 0.012 X10*3/uL [facility] 09/06/2024 12:1 4 PM EST 09/06/2024 12:19 PM EST us Generic External Data Provider LAB BLOOD ORDERAB LES Final Result [facility] [address] [place] [phone] * Urinalysis w/reflex microscopic (09/06/2024 12:14 PM EST) Color Urine Yellow [facility] Appearance Urine Clear [facility] PH 6.5 5.0 - 9.0 [facility] Glucose Urine UA Negative Negative mg/dL [facility] Urine Blood Negative Negative [facility] Specific [place] - Urine <=1.005 1.005 - 1.025 [facility] Urine Protein Negative Neg-Trace mg/dL [facility] Urine Ketones Negative Negative mg/dL [facility] Nitrite Urine Negative Negative [facility] Leukocyte Esterase Urine Negative Negative [facility] 09/06/2024 12:1 4 PM EST 09/06/2024 12:19 PM EST Narrative [facility] - 09/06/2024 12:23 PM EST Urine, Clean Catch Generic External Data Provider LAB URINE ORDERAB LES Final Result Performing Organization Address [facility]/ZIP Co de Phone Number [facility] [address] [place] [phone] * Partial Thromboplastin Time, Activated (APTT) (09/06/2024 12:14 PM EST) Partial Thromboplastin Time 30.4 26.0 - 36.8 SEC [facility] Comment:For information rega rding the monitoring of direct thrombininhibitors, please refer to Pharmacy. 09/06/2024 12:1 4 PM EST 09/06/2024 12:19 PM EST Generic External Data Provider LAB BLOOD ORDERAB LES Final Result Performing Organization Address [facility] Co de Phone Number [facility] [address] [place] [phone] * Prothrombin Time-INR (09/06/2024 12:14 PM EST) Prothrombin Time 11.4 10.9 - 12.4 SEC [facility] INTERNATIONAL NORM RATIO 1.0 0.9 - 1.1 [facility] Comment:INTERNATIONAL NORMAL IZED RATIO (INR) [...] ORDERAB LES Final Result Performing Organization Address [facility] de Phone Number [facility] [address] [place] [phone] * Magnesium (09/06/2024 12:14 PM EST) Magnesium 2.1 1.6 - 2.6 mg/dL [facility] 09/06/2024 12:1 4 PM EST 09/06/2024 12:19 PM EST Generic External Data Provider LAB BLOOD ORDERAB LES Final Result Performing Organization Address [facility] de Phone Number [facility] [address] [place] [phone] * XR Chest 2 Views (09/06/2024 11:57 AM EST) Anatomical Region Laterality Modality Chest Radiographic Maxine ging 09/06/2024 11:5 7 AM EST Narrative 09/06/2024 1:08 PM EST ? [facility] ?[address] ?[place] [address] ?XRay Report ? Signed ? Patient: Pati Lazcano,Esequiel ?MR# ?? : [id number] ? : 1965 ?Acct:[id number] ? Age/Sex: 58 / M ?ADM Date: 03/03/25 ? Loc: HO.ED ? Attending Dr: ? Ordering Physician: Haleigh Arora ?? Date of Service: 09/06/24 ?? Procedure(s): XR chest 2V ?? Accession Number(s): [id number] ? cc: Haleigh Arora; Amy Pickett MD [...] DD/ 1157 ? TD/TT: 09/06/24 1245 ? Pump Tester: ? Procedure Note Ted Cueva - 09/06/[address] [address] XRay Report Signed Patient: Zain Welch LMR# : [id number] : 1965Acct:[id number] Age/Sex: 58 / MADM Date: 09/06/24 Loc: .ED Attending Dr: Ordering Physician: Haleigh Arora Date of Service: 09/06/24 Procedure(s): XR chest 2V Accession Number(s): [id number] cc: Haleigh Arora; Amy Pickett MD EXAMINATION: [...] 09/06/24 1305 DD/ 1157 TD/TT: 09/06/24 1245 Pump Tester: [facility] External Provider IMG XR PROCEDURES Final Result * Hm Colonoscopy (01/06/2018 8:00 AM EDT) Historical Provider HEALTH MAINTENANCE Final Result from Last 3 Months or Most Recently Relevant to Health Maintenance Insurance - [employer] [address] Care Teams Record Keeper Relationship Specialty Start Date End Date Amy Pickett MD [address] [place] [phone] PCP - General Internal Medicine 04/07/23
--- OUTSIDE RECORDS SUMMARY | 2024-10-15 13:35 | XMS_ITS | Encounter Summary ---
Author Organization [employer] Address [address] [place] [address] Care Team Providers Care Purchase Order Checker Name Role Phone Amy Pickett MD Primary Care Pro vider Encounter Details Date Type Department Care Team (Late st Contact Info) Description 06/24/2024 Orders Only [facility] [address] [place] [address] ProviderBryan MD Social History Tobacco Use Types [...] Description 11/16/2024 9:45 AM EDT Office Visit [facility] [address] [place] [phone] 11/24/2024 2:15 PM EDT Office Visit [facility] [address] [place] [phone] Amy Pickett MD [address] [place] [phone] documented as of this encounter Procedures Procedure [...] documented as of this encounter Care Teams Purchase Order Checker Relationship Specialty Start Date End Date Amy Pickett MD [address] [place] [phone] PCP - General Internal Medicine 04/07/23 documented as of this encounter
--- OUTSIDE RECORDS SUMMARY | 2024-10-15 13:35 | XMS_ITS | Encounter Summary ---
Author Organization [employer] Address [address] [place] [address] 7 [place] [address] Care Team Providers Care Pit Supervisor Name Role Phone Elise Glover Primary Care Provider [phone]- [phone] Amy Pickett MD Primary Care Pro vider Reason for Visit * Reason Onset Date Comments triage 08/22/2022 Encounter Details Date Type Department Care Team (Late st Contact Info) Description 08/22/2022 Telephone [facility] MEDICINE [address] [place] [address] Elise Glover FNP [address] [place] [address] Dept [place] [address] triage Social History Tobacco Use Types Packs/Day [...] Description 11/16/2024 9:45 AM EDT Office Visit [address] [phone] 11/24/2024 2:15 PM EDT Office Visit [address] [address] Amy Pickett MD [address] [place] [address] [phone] documented as of this encounter Visit Diagnoses Not on filedocumented in this encounter Care Teams Pit Supervisor Relationship Specialty Start Date End Date Elise Glover FNP PCP - General Family Medicine 07/09/22 04/06/23 Amy Pickett MD [address] [place] [id number] PCP - General Internal Medicine 04/07/23 documented as of this encounter
--- OUTSIDE RECORDS SUMMARY | 2024-10-15 13:35 | XMS_ITS | Encounter Summary ---
Author Organization [employer] Address 75 [facility] 7 [place] [address] Care Team Providers Care Senior Compliance Analyst Name Role Phone Amy Pickett MD Primary Care Pro vider Reason for Visit * Reason Comments Med Refill Encounter Details Date Type Department Care Team ([facility] st Contact Info) Description 06/17/2024 Refill [facility] MEDICINE [address] [place], [place] [phone] Amy Pickett MD 230 [place] [address] Social History Tobacco Use Types Packs/Day Years [...] Description 11/16/2024 9:45 AM EDT Office Visit [facility] MEDICINE [address] [place] [phone] 11/24/2024 2:15 PM EDT Office Visit [facility] MEDICINE [address] [place] [address] Amy Pickett MD [address] [place] [phone] documented as of this encounter Visit Diagnoses Not on filedocumented in this encounter Additional Health Concerns Assessment Noted Time PHQ-9 Depression Total Score: 10 024 9:41 AM EDT documented as of this encounter Care Teams Senior Compliance Analyst Relationship Specialty Start Date End Date Amy Pickett MD [address] [place] [phone] PCP - General Internal Medicine 04/07/23 documented as of this encounter
--- OUTSIDE RECORDS SUMMARY | 2024-10-15 13:35 | XMS_ITS | Encounter Summary ---
Author Organization [employer] Address 75 [facility] 7 [place] [address] Care Team Providers Care Quarter Seamer Name Role Phone Elise Glover Primary Care Provider [phone]- [phone] Amy Pickett MD Primary Care Pro vider Reason for Visit * Reason Onset Date Comments Durable Medical Equipment 10/07/2022 Encounter Details Date Type Department Care Team (Late st Contact Info) Description 10/07/2022 Telephone [facility] MEDICINE [address] [place] [address] Elise Glover FNP [address] [place] [address] Dept [place] [address] Durable Medical Equipment Social History Tobacco Use [...] If any questions please contact Anabelle at [phone] documented in this encounter Plan of Treatment Upcoming Encounters Date Type Department Care Team (Late st Contact Info) Description 11/16/2024 9:45 AM EDT Office Visit [address] [address] 11/24/2024 2:15 PM EDT Office Visit [address] [address] Amy Pickett MD [address] [place] [address] documented as of this encounter Visit Diagnoses Not on filedocumented in this encounter Additional Health Concerns Assessment Noted Time PHQ-9 Depression Total Score: 24 10/01/2 023 10:05 AM EDT documented as of this encounter Care Teams Quarter Seamer Relationship Specialty Start Date End Date Elise Glover FNP PCP - General Family Medicine 07/09/22 04/06/23 Amy Pickett MD [address] [place] [phone] PCP - General Internal Medicine 04/07/23 documented as of this encounter
--- OUTSIDE RECORDS SUMMARY | 2024-10-15 13:35 | XMS_ITS | Encounter Summary ---
Author Organization [employer] Address 75 [facility] 7 [place] [address] Care Team Providers Care Miller Wood Flour Name Role Phone Amy Pickett MD Primary Care Pro vider Reason for Visit * Reason Onset Date Comments Med Refill 02/11/2024 Encounter Details Date Type Department Care Team ([facility] st Contact Info) Description 02/11/2024 Telephone [facility] MEDICINE 230 [place], [place] [phone] Amy Pickett MD 230 [place], [place] [phone] Med Refill Social History Tobacco Use Types [...] To be sent to: [id number] - [address] documented in this encounter Plan of Treatment Upcoming Encounters Date Type Department Care Team (Late st Contact Info) Description 11/16/2024 9:45 AM EDT Office Visit [facility] MEDICINE [address] [place] [phone] 11/24/2024 2:15 PM EDT Office Visit [facility] MEDICINE [address] [place] [address] Amy Pickett MD [address] [place] [address] documented as of this encounter Visit Diagnoses Not on filedocumented in this encounter Additional Health Concerns Assessment Noted Time PHQ-9 Depression Total Score: 24 10/01/ 023 10:05 AM EDT documented as of this encounter Care Teams Miller Wood Flour Relationship Specialty Start Date End Date Amy Pickett MD [address] [place] [address] PCP - General Internal Medicine 04/07/23 documented as of this encounter
--- OUTSIDE RECORDS SUMMARY | 2024-10-15 13:35 | XMS_ITS | Encounter Summary ---
Author Organization [employer] Address 75 [facility] 7 [place] [address] Care Team Providers Care Furniture Restorer Name Role Phone mAy Pickett MD Primary Care Pro vider Reason for Visit * Reason Onset Date Comments Med Refill 08/06/2024 Encounter Details Date Type Department Care Team ([facility] st Contact Info) Description 08/06/2024 Telephone [facility] MEDICINE 230 [place], [place] [phone] Amy Pickett MD 230 [place], [place] [phone] Med Refill Social History Tobacco Use Types [...] 0.083% nebulizer solution To be sent to: [facility]/pharmacy #[id number] - [address] documented in this encounter Plan of Treatment Upcoming Encounters Date Type Department Care Team (Late st Contact Info) Description 11/16/2024 9:45 AM EDT Office Visit [facility] MEDICINE [address] [place] [address] 11/24/2024 2:15 PM EDT Office Visit [facility] MEDICINE [address] [place] [address] Amy Pickett MD [address] [place] [address] documented as of this encounter Visit Diagnoses Not on filedocumented in this encounter Additional Health Concerns Assessment Noted Time PHQ-9 Depression Total Score: 10 024 9:41 AM EDT documented as of this encounter Care Teams Furniture Restorer Relationship Specialty Start Date End Date Amy Pickett MD [address] [place] [address] PCP - General Internal Medicine 04/07/23 documented as of this encounter
== END 2024-10-15 18:47 ==
LOC: HO.HGI 13:06
PROVIDERS: PCP Student in an Organized Health Care Education/Training Program; Visit Provider Nurse Practitioner
DX: K21.9 Gastro-esophageal reflux disease without esophagitis (principal); K58.0 Irritable bowel syndrome with diarrhea; K22.4 Dyskinesia of esophagus; R19.7 Diarrhea, unspecified
CPT/HCPCS: 99213

== ENCOUNTER → 2024-10-15 13:05 | Outpatient (BNVA) | payer OTHER, SELFPAY | PROVIDERS: PCP Student in an Organized Health Care Education/Training Program; Visit Provider Nurse Practitioner | DX: K21.9 Gastro-esophageal reflux disease without esophagitis (principal); K58.0 Irritable bowel syndrome with diarrhea; K22.4 Dyskinesia of esophagus; R10.33 Periumbilical pain; R13.12 Dysphagia, oropharyngeal phase; R19.7 Diarrhea, unspecified | CPT/HCPCS: 99212 ==

== ENCOUNTER 2024-11-22 18:51 | Emergency (ER) | payer OTHER, SELFPAY ==
--- NOTE | ~2024-11-22 | XR_ITS ---
CLINICAL HISTORY: pain, injury 3 view right elbow Comparison: None Findings: No acute fractures. Normal alignment. No significant loss of joint space, osteophytes, or erosions. No joint effusion. No radiopaque foreign body. IMPRESSION: 1. No acute findings This document has been electronically signed by: Kartik Mason MD on 11/22/2024 20:01:21
--- NOTE | ~2024-11-22 | XR_ITS ---
CLINICAL HISTORY: pain, injury 3 view right shoulder Comparison: CR/SR - XR SHOULDER RT MIN 2V - 12/30/23 12:59 EDT Findings: No fractures or dislocations. No significant arthritic change. No erosions. No radiopaque foreign body. IMPRESSION: 1. No acute findings This document has been electronically signed by: Kartik Mason MD on 11/22/2024 20:01:38
[2024-11-22 19:02] VITALS: BP 156/75; PULSE 108; RESP 20; TEMP 36.4; O2SAT 95; BMI 29.2
--- NOTE | 2024-11-22 19:03 | ED.GENADULT ---
HPI - General Adult General Chief complaint: Fall Stated complaint: R elbow pain s/p fall Time Seen by Provider: 11/22/24 20:17 Source: patient Mode of arrival: ambulatory Limitations: no limitations History of Present Illness ED Provider: Noemí Hernandez NP HPI narrative: patient is a 58-year-old male presents emergency department for evaluation. He reports 2 hours prior to arrival he was stepping off of a step ladder when he lost his balance resulting in a fall landing onto his right side. He is adamant that he did not strike his head, he denies the use of anticoagulants. There was no loss of consciousness. He denies having any headache, neck pain, neck stiffness, dizziness or lightheadedness. Since he landed on the right side he is complaining of pain to the right shoulder and right elbow. Pain increases with any movement. His elbow is held in 90 degree flexion as this is the point of most comfort. He denies any numbness tingling or cold sensation to the extremity. Related Data Home Medications ?Medication ?Instructions ?Recorded ?Confirmed cholecalciferol (vitamin D3) 50 50 mcg PO DAILY 05/22/20 09/29/24 mcg (2,000 unit) capsule fluticasone propionate 220 1 puff inhalation BID 05/22/20 09/29/24 mcg/actuation HFA aerosol inhaler (Flovent HFA) oxycodone 15 mg tablet 15 mg PO Q6H 05/22/20 09/29/24 albuterol sulfate 2.5 mg/3 mL 1 vial inhalation QID 07/19/20 09/29/24 (0.083 %) solution for nebulization multivitamin (Daily-Petra tablet) 1 tab PO DAILY 07/19/20 09/29/24 divalproex 500 mg tablet,delayed 1,000 mg PO BID 08/29/21 09/29/24 release fluoxetine 20 mg capsule 20 mg PO DAILY 08/29/21 09/29/24 alprazolam 1 mg tablet 1 mg PO BID PRN Anxiety 10/08/21 09/29/24 escitalopram oxalate 20 mg tablet 20 mg PO QAM 06/26/22 09/29/24 magnesium oxide 400 mg (241.3 mg 400 mg PO DAILY 06/26/22 09/29/24 magnesium) tablet lisinopril 5 mg tablet 10 mg PO BID 07/17/22 09/29/24 nebulizers 08/29/22 09/29/24 atorvastatin 40 mg tablet 40 mg PO DAILY 10/15/24 clopidogrel 75 mg tablet 75 mg PO DAILY 10/15/24 clotrimazole 1 % topical cream appl topical DAILY 10/15/24 cyanocobalamin (vitamin B-12) 1,000 mcg PO DAILY 10/15/24 1,000 mcg tablet hydroxyzine HCl 10 mg tablet 10 mg PO BID 10/15/24 loratadine 10 mg tablet 10 mg PO DAILY 10/15/24 olmesartan 20 mg tablet 20 mg PO DAILY 10/15/24 rimegepant 75 mg disintegrating 75 mg PO DAILY PRN 10/15/24 tablet (Nurtec ODT) Previous Rx's ?Medication ?Instructions ?Recorded tamsulosin 0.4 mg capsule 0.4 mg PO DAILY 30 days #30 caps 06/26/22 sumatriptan succinate 100 mg 100 mg PO .COMPLEX #14 tabs 03/20/23 tablet (Imitrex) cyclobenzaprine 5 mg tablet 5 mg PO BEDTIME PRN muscle spasm 10/01/23 #7 tabs jwtjah-otonwcey-uhtfejy 1 cap PO QID 30 days #120 caps 10/29/23 24,000-76,000-120,000 unit capsule,delayed rel (Creon) fluticasone fur. 200 mcg-umeclid 1 inh inhalation DAILY 30 days #60 04/28/24 62.5 mcg-vilant 25 mcg ea inhalat.powder (Trelegy Ellipta) ipratropium 20 mcg-albuterol 100 1 puff inhalation QID 30 days #4 07/12/24 mcg/actuation mist for inhalation grams (Combivent Respimat) budesonide 0.5 mg/2 mL suspension 0.5 mg (2 mL) inhalation BID 30 10/14/24 for nebulization days #120 mL doxycycline hyclate 100 mg capsule 100 mg PO BID 10 days #20 caps 10/14/24 ipratropium 0.5 mg-albuterol 3 mg 3 ml inhalation BID 30 days #180 mL 10/14/24 (2.5 mg base)/3 mL nebulization soln nicotine 21 mg/24 hr daily 1 patch transdermal DAILY 28 days 10/14/24 transdermal patch #28 ea prednisone 20 mg tablet See Rx Instructions PO DAILY 10 10/14/24 days #15 tabs dexlansoprazole 60 mg 60 mg PO DAILY #90 caps 10/15/24 capsule,biphase delayed release dicyclomine 20 mg tablet 20 mg PO QID 30 days #120 tabs 10/15/24 famotidine 40 mg tablet 40 mg PO BEDTIME #90 tabs 10/15/24 amoxicillin 875 mg-potassium 1 tab PO BID 10 days #20 tabs 10/26/24 clavulanate 125 mg tablet prednisone 10 mg tablet See Rx Instructions PO DAILY 18 10/26/24 days #63 tabs ondansetron HCl 4 mg tablet 4 mg PO BID PRN for 11/22/24 nausea/vomiting #60 tabs Allergies Allergy/AdvReac Type Severity Reaction Status Date / Time cat dander [CATS] Allergy Unknown UNKNOWN Verified 11/22/24 19:04 dog dander [DOGS] Allergy Unknown UNKNOWN Verified 11/22/24 19:04 pollen extracts [POLLEN] Allergy Unknown UNKNOWN Verified 11/22/24 19:04 tree and shrub pollen Allergy sneeze Verified 11/22/24 19:04 ibuprofen AdvReac causes Verified 11/22/24 19:04 stomach to bleed Review of Systems Review of Systems: Yes all other systems are reviewed and are negative PMFSH Past Medical History Attestation statement: The following information was validated with the patient. Source: old records reviewed Medical History Chest pain Nicotine dependence, cigarettes, uncomplicated Nausea and vomiting Dyspnea Photophobia Headache Syncope Dysphagia Seizure Lipoma of back STEPHON (obstructive sleep apnea) COPD (chronic obstructive pulmonary disease) Post herpetic neuralgia Multiple lipomas Osteoarthritis Gout History of peptic ulcer disease Hx of irritable bowel syndrome Chronic back pain Hx of insomnia History of panic attacks History of anxiety History of depression Asthma High cholesterol Hypertension Urinary retention Enlarged prostate Arthritis Slow urinary stream Marijuana use Alcohol abuse H/O ulcer disease Left flank pain Trochanteric bursitis, left hip Epidermal cyst Abdominal wall bulge Esophageal dysphagia Esophageal spasm Short frenulum of penis Balanitis Elevated blood pressure reading in office with diagnosis of hypertension Thalamic pain syndrome Abnormal loss of weight Painful orthopaedic hardware Pain in unspecified toe(s) Incisional pain Surgical History S/P placement of nerve stimulator H/O neck surgery Hx of arthroscopy of left knee H/O breast surgery S/P excision of lipoma History of bunionectomy History of cystoscopy History of colonoscopy History of esophagogastroduodenoscopy (EGD) Family History Family History Family/Other Cancer Diabetes AIDS Brother Diabetes Myocardial infarction Father Enlarged prostate Mother Diabetes Asthma Social History Social History Are you a primary rn coronary care unit to a significant other at home: No Do you presently have visiting nurse or other home services: No Alcohol intake: never Patient Tobacco Use Status: Current everyday Tobacco user Cigarettes Per Day: 4 Years Smoked: (onset 16yo, 1ppd x 42yrs, now 1/2ppd - 40pyh) Substance Use Type: Marijuana service: No Current occupational status: unemployed Physical Exam ED Vital Signs: Vital Signs - 24 hr 11/22/24 19:02 Temperature 97.5 F Pulse Rate 108 H Respiratory Rate 20 Blood Pressure 156/75 H Pulse Oximetry 95 Oxygen Delivery Method Room Air BMI result Body Mass Index 29.2 Appearance: Alert.?Oriented to person, place and time. No acute distress.?Normal affect. Eyes: Pupils equal, round and reactive to light.? ENT: Pharynx normal.?? Neck: Normal inspection.? Neck supple.?? No midline cervical spine tenderness, step-offs, deformities CVS: Heart sounds normal. Normal heart rate and rhythm.? Pulses normal.?? Respiratory: No respiratory distress.? Lung sounds clear to auscultation bilaterally?? Skin: Skin warm and dry.? Normal skin color.? Extremities: No extremity edema. decreased AROM to the right shoulder, minimal movement secondary to pain but no obvious deformity. Diffuse tenderness. No crepitus. Right elbow is held in 90 degree flexion is point most comfort, no obvious deformity, diffuse tenderness upon palpation. 2+ bilaterally. Neuro: Moves all extremities spontaneously. Sensation intact bilaterally. CN II-XII intact. No focal neuro deficits. Ambulates with normal steady gait. Course Course Course Narrative: RME performed by Haleigh Arora PA-C. Patient is a 58 year old assigned male at presenting to the emergency department with right shoulder and elbow pain. Patient states he fell off a small step stool and is now having right elbow and shoulder pain. Patient states that he did not hit his head or have any loss of consciousness. Detailed physical exam and review of systems are deferred to the orthotic/prosthetic clinician. Imaging ordered. Patient placed back in the waiting room pending room availability and results. Medical Decision Making Medical Decision Making MDM Narrative: patient is a 58-year-old male With past medical history of depression, anxiety, panic attacks, hyperlipidemia, hypertension, COPD, gout arthritis, asthma, STEPHON, insomnia who presents emergency department for evaluation of traumatic right shoulder and right elbow pain as per HPI. S/p mechanical fall without head strike or loss of consciousness. Has no focal neurological deficits. The right upper extremities neurovascularly intact distally. There was no obvious deformity. XR of the right shoulder right elbow were obtained and are without evidence of fracture or dislocation. He states that he can not take NSAIDs secondary to stomach ulcers and bleeding in the past, states he can not apply topical ice as this interferes with a back stimulator that he has. reviewed PDMP, patient is chronically prescribed oxycodone 15mg 4 times daily, in addition to gabapentin 600mg, advised that this time I would not recommend prescribing additional narcotic medication for analgesia. He may speak with his primary prescriber regarding their consideration for dosage increased during time of acute injury/increase in chronic pains. He is adamant about mobilizing the arm. I have offered him with a sling to use but strictly over the next 48 hours and advised against use any longer, we reviewed precautions of frozen shoulder, advised that he should still be moving the arm as much as possible over the next couple of days. Elevating the arm. Suggested outpatient follow-up with PCP and/or Orthopedics with persistent pain over the next week, consideration of physical therapy and/or additional radiographic modalities as they see necessary. All questions answered. Stable for discharge Differential Diagnosis Differential Diagnoses: The differential diagnosis associated with the presentation includes ( see narrative above) Independent Interpretation I performed an independent interpretation of an: Plain X-Ray ( no acute fracture of the right shoulder or elbow) Radiology Impression Discussion of test interpretation with radiology: I have reviewed the radiologist's reading. Radiologist Impression: 3 view right elbow Comparison: None Findings: No acute fractures. Normal alignment. No significant loss of joint space, osteophytes, or erosions. No joint effusion. No radiopaque foreign body. IMPRESSION: 1. No acute findings 3 view right shoulder Comparison: CR/SR - XR SHOULDER RT MIN 2V - 12/30/23 12:59 EDT Findings: No fractures or dislocations. No significant arthritic change. No erosions. No radiopaque foreign body. IMPRESSION: 1. No acute findings Independent Historian Clinical information obtained from an independent historian. History obtained from or confirmed by: Spouse External Record Review External record reviewed: Outpatient record Prescription Management I considered prescription management with: Pain Medication ( see narrative above) Chronic Conditions Patient?s care impacted by: Other ( see narrative above) Discharge Plan Discharge Clinical Impression: Shoulder sprain Qualifiers: Encounter type: initial encounter Laterality: left Contusion of elbow, right Qualifiers: Encounter type: initial encounter Qualified Code(s): S50.01XA - Contusion of right elbow, initial encounter Patient Disposition: Home, Self-Care Instructions: Shoulder Sprain (ED), Contusion in Adults (ED) Additional Instructions: You can take Tylenol 500 mg, 2 tablets (1,000mg) every 4-6 hours as needed for pain, but not to exceed 3 doses daily (3,000mg).? Apply ice/ heat for 10-15 minutes 4-6 times daily. Elevate your arm when possible. You may use the sling over the next 48 hours/2 days but not for any longer than that. During the next 2 days be sure that you are still moving the shoulder and elbow as much as tolerable. As discussed, you may speak with your primary prescriber regarding any consideration for dosage adjustments of your chronic pain medication during times of acute injury/increase pain. If your pain is persisting over the next week, please follow-up with primary care provider they may consider a course of physical therapy and/or referral to Orthopedics for further evaluation. You may return to emergency department any new or worsening symptoms or concerns. Prescriptions: No Action sumatriptan succinate [Imitrex] 100 mg tablet 100 mg PO .COMPLEX Qty: 14 3RF Rx Instructions: 100 mg orally; amoxicillin-pot clavulanate 875-125 mg tablet 1 tab PO BID 10 Days Qty: 20 0RF prednisone 10 mg tablet See Rx Instructions PO DAILY 18 Days Qty: 63 0RF Rx Instructions: PO daily; Take 6 tabs daily x 3 days, then 5 tabs x 3 days, then 4 tabs x 3 days, then 3 tabs x 3 days, then 2 tabs daily x 3 days, then 1 tab x 3 days to complete. ondansetron HCl 4 mg tablet 4 mg PO BID PRN (Reason: for nausea/vomiting) Qty: 60 0RF multivitamin [Daily-Petra] Tablet 1 tab PO DAILY albuterol sulfate 2.5 mg /3 mL (0.083 %) solution for nebulization 1 vial inhalation QID alprazolam 1 mg tablet 1 mg PO BID PRN (Reason: Anxiety) lisinopril 5 mg tablet 10 mg PO BID cyclobenzaprine 5 mg tablet 5 mg PO BEDTIME PRN (Reason: muscle spasm) Qty: 7 0RF oxycodone 15 mg tablet 15 mg PO Q6H cholecalciferol (vitamin D3) 50 mcg (2,000 unit) capsule 50 mcg PO DAILY Flovent HFA 220 mcg/actuation HFA aerosol inhaler 1 puff inhalation BID fluoxetine 20 mg capsule 20 mg PO DAILY divalproex 500 mg tablet,delayed release (DR/EC) 1,000 mg PO BID magnesium oxide 400 mg (241.3 mg magnesium) tablet 400 mg PO DAILY escitalopram oxalate 20 mg tablet 20 mg PO QAM tamsulosin 0.4 mg capsule 0.4 mg PO DAILY 30 Days Qty: 30 3RF (DME) nebulizers Misc See Rx Instructions .Route Rx Instructions: As directed Trelegy Ellipta 200-62.5-25 mcg blister with device 1 inh inhalation DAILY 30 Days Qty: 60 12RF Combivent Respimat 20-100 mcg/actuation mist 1 puff inhalation QID 30 Days Qty: 4 11RF olmesartan 20 mg tablet 20 mg PO DAILY clotrimazole 1 % cream topical DAILY hydroxyzine HCl 10 mg tablet 10 mg PO BID atorvastatin 40 mg tablet 40 mg PO DAILY cyanocobalamin (vitamin B-12) 1,000 mcg tablet 1,000 mcg PO DAILY Nurtec ODT 75 mg tablet,disintegrating 75 mg PO DAILY PRN clopidogrel 75 mg tablet 75 mg PO DAILY loratadine 10 mg tablet 10 mg PO DAILY dexlansoprazole 60 mg capsule,biphase delayed releas 60 mg PO DAILY Qty: 90 1RF famotidine 40 mg tablet 40 mg PO BEDTIME Qty: 90 2RF dicyclomine 20 mg tablet 20 mg PO QID 30 Days Qty: 120 6RF Creon 24,000-76,000 -120,000 unit capsule,delayed release(DR/EC) 1 cap PO QID 30 Days Qty: 120 6RF Rx Instructions: administer with meals and/or snacks nicotine 21 mg/24 hr patch 24 hour 1 patch transdermal DAILY 28 Days Qty: 28 4RF prednisone 20 mg tablet See Rx Instructions PO DAILY 10 Days Qty: 15 0RF Rx Instructions: PO daily; Take 2 tabs daily x 5 days, then 1 tablet daily x 5 days doxycycline hyclate 100 mg capsule 100 mg PO BID 10 Days Qty: 20 0RF ipratropium-albuterol 0.5 mg-3 mg(2.5 mg base)/3 mL solution for nebulization 3 ml inhalation BID 30 Days Qty: 180 11RF budesonide 0.5 mg/2 mL suspension for nebulization 0.5 mg inhalation BID 30 Days Qty: 120 11RF Referrals: Amy Pickett MD [Primary Care Provider] - Print Language: Vietnamese
--- OUTSIDE RECORDS SUMMARY | 2024-11-22 20:27 | XMS_ITS | Clinical Summary ---
Author Organization [facility] Address [address] [place] [address] Care Team Providers Care Senior Civil Engineer Name Role Phone Ba Maria MD Primary Care Provider Surgical History Surgery Date Site/Laterality Comments FOOT SURGERY PROCEDURE: [place] UNLISTED PROCEDURE FOOT/TOES; COMMENT: left foot bunion removal LIPOMA RESECTION PROCEDURE: SKIN TISSUE EXCISION(LIPOMA) OTHER SURGICAL HISTORY PROCEDURE: ---- OTHER ----; COMMENT: urethral surgeries done? three times in [facility] for difficulty urinating Medical History Medical History Date Comments Chronic back pain DX:Chronic alonso k pain Asthma DX:Asthma Anxiety DX:Anxiety; COMM ENT: follows at [facility] psychiatry Family History Medical History [...] age to complete this topic Care Teams Senior Civil Engineer Relationship Specialty Start Date End Date Ba Maria MD PCP - General Internal Medicine 10/26/12
--- OUTSIDE RECORDS SUMMARY | 2024-11-22 20:27 | XMS_ITS | Encounter Summary ---
Author Organization [employer] Address [address] [place] [address] 7 [place] [address] Care Team Providers Care Service Dog Trainer Name Role Phone Amy Pickett MD Primary Care Pro vider Reason for Visit * Reason Onset Date Comments Med Refill 10/27/2024 Encounter Details Date Type Department Care Team ([facility] st Contact Info) Description 10/27/2024 Telephone [facility] MEDICINE 230 [place], [place] [phone] Amy Pickett MD 230 [place], [place] [phone] Med Refill Social History Tobacco Use Types [...] encounter Miscellaneous Notes * Telephone Encounter - Kim Duke - 10/27/2024 9:07 AM EDT TC from pt requesting medication refill. Medications needing refill : oxyCODONE (Roxicodone) 15 MG immediate release tablet To be sent to: [facility]/pharmacy #[id number] documented in this encounter Plan of Treatment Upcoming Encounters Date Type Department Care Team (Late st Contact Info) Description 11/24/2024 2:15 PM EDT Office Visit [facility] MEDICINE [address] [place] [address] [phone] Amy Pickett MD [address] [place] [address] 12/28/2024 9:45 AM EDT Office Visit [facility] MEDICINE [address] [place] [address] documented as of this encounter Visit Diagnoses Not on filedocumented in this encounter Additional Health Concerns Assessment Noted Time PHQ-9 Depression Total Score: 10 024 9:41 AM EDT documented as of this encounter Care Teams Service Dog Trainer Relationship Specialty Start Date End Date Amy Pickett MD [address] [place] [phone] PCP - General Internal Medicine 04/07/23 documented as of this encounter
--- OUTSIDE RECORDS SUMMARY | 2024-11-22 20:27 | XMS_ITS | Encounter Summary ---
Author Organization [employer] Address 75 [facility] 7t [place] [address] Care Team Providers Care Ship Superintendent Name Role Phone Amy Pickett MD Primary Care Pro vider Encounter Details Date Type Department Care Team ([facility] st Contact Info) Description 09/01/2024 Telephone [facility] MEDICINE 230 [place], [place] [phone] Amy Pickett MD 230 [place], [place] [phone] Social History Tobacco Use Types Packs/Day Years [...] Description 11/24/2024 2:15 PM EDT Office Visit [facility] MEDICINE [address] [place] [address] Amy Pickett MD [address] [place] [address] 12/28/2024 9:45 AM EDT Office Visit [facility] MEDICINE [address] [place] [address] documented as of this encounter Visit Diagnoses Not on filedocumented in this encounter Additional Health Concerns Assessment Noted Time PHQ-9 Depression Total Score: 10 024 9:41 AM EDT documented as of this encounter Care Teams Ship Superintendent Relationship Specialty Start Date End Date Amy Pickett MD [address] [place] [address] PCP - General Internal Medicine 04/07/23 documented as of this encounter
--- OUTSIDE RECORDS SUMMARY | 2024-11-22 20:27 | XMS_ITS | Encounter Summary ---
Author Organization [employer] Address 75 [facility] 7t [place] [address] Care Team Providers Care Transverse Abdominal Muscle Nurse Name Role Phone Amy Pickett MD Primary Care Pro vider Encounter Details Date Type Department Care Team ([facility] st Contact Info) Description 11/17/2024 Telephone [facility] CHC MED & PEDS 505 [place], [place] [phone] 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, RN 505 [place] [address] Social History Tobacco Use Types Packs/Day Years [...] encounter Miscellaneous Notes * Telephone Encounter - 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 RN - 11/17/2024 11:07 AM EDT TC back to pt. Chronic pain group appt r/s to 12/28/24 @ 9:30am. documented in this encounter Plan of Treatment Upcoming Encounters Date Type Department Care Team (Late st Contact Info) Description 11/24/2024 2:15 PM EDT Office Visit [facility] MEDICINE [address] [place] [address] Amy Pickett MD [address] [place] [address] 12/28/2024 9:45 AM EDT Office Visit [facility] MEDICINE [address] [place] [address] documented as of this encounter Visit Diagnoses Not on filedocumented in this encounter Additional Health Concerns Assessment Noted Time PHQ-9 Depression Total Score: 10 024 9:41 AM EDT documented as of this encounter Care Teams Transverse Abdominal Muscle Nurse Relationship Specialty Start Date End Date Amy Pickett MD [address] [place] [address] PCP - General Internal Medicine 04/07/23 documented as of this encounter
--- OUTSIDE RECORDS SUMMARY | 2024-11-22 20:27 | XMS_ITS | Clinical Summary ---
Author Organization [facility] Address [address] [place] [address] Care Team Providers Care Soldering Technician Name Role Phone Donna Harmon MD [...] Due Date Last Done Comments Hepatitis B Vaccine (1 of 3 - 19+ 3-dose series) 12/23 Pneumococcal Vaccine: 50+ Years (1 of 2 - PCV) 987 Colorectal Cancer Screening: Annual FOBT 12/23/2016 Colorectal Cancer Screening: Colonoscopy 12/23/2016 Colorectal Cancer Screening: Sigmoidoscopy 12/23/2016 Influenza Vaccine (Season Ended) 2025 Insurance [facility] RUBEN JAIMES [id number] Care Teams Soldering Technician Relationship Specialty Start Date End Date Donna Harmon MD PCP - General 05/11/19
--- OUTSIDE RECORDS SUMMARY | 2024-11-22 20:27 | XMS_ITS | Encounter Summary ---
Author Organization [email or web address] Address 75 [facility] 7t [place] [address] Care Team Providers Care Agency Development Manager Name Role Phone Amy Pickett MD Primary Care Pro vider Reason for Visit * Reason Onset Date Comments Med Refill 11/16/2024 Encounter Details Date Type Department Care Team ([facility] st Contact Info) Description 11/16/2024 Telephone [facility] CHC MED & PEDS 505 [place] [address] 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, RN 505 [place] [address] Med Refill Social History Tobacco Use Types [...] encounter Miscellaneous Notes * Telephone Encounter - Ernestina Mckenzie - 11/17/2024 9:27 AM EDT Tc from pt returning phone call. * Telephone Encounter - 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 RN - 11/16/2024 3:51 PM EDT Fyi. Pt cancelled chronic pain group on 10/26/[address] d[address] NCNS to today's chronic pain appt. TC topt, no answer. Lvm for pt to c/b. F/u with you 11/24/24. documented in this encounter Plan of Treatment Upcoming Encounters Date Type Department Care Team (Late st Contact Info) Description 11/24/2024 2:15 PM EDT Office Visit [facility] MEDICINE [address] [place] [address] Amy Pickett MD 230 [place] [address] 12/28/2024 9:45 AM EDT Office Visit [facility] MEDICINE 230 [place] [address] documented as of this encounter Visit Diagnoses Not on filedocumented in this encounter Additional Health Concerns Assessment Noted Time PHQ-9 Depression Total Score: 10 024 9:41 AM EDT documented as of this encounter Care Teams Agency Development Manager Relationship Specialty Start Date End Date Amy Pickett MD 230 [place] [address] PCP - General Internal Medicine 04/07/23 documented as of this encounter
--- OUTSIDE RECORDS SUMMARY | 2024-11-22 20:27 | XMS_ITS | Encounter Summary ---
Author Organization [employer] Address [address] [facility] [address] 7t [place] [address] Care Team Providers Care Broke Worker Name Role Phone Amy Pickett MD Primary Care Pro vider Encounter Details Date Type Department Care Team (Latest Contact Info) Description 11/17/2024 Travel Social History Tobacco Use Types Packs/Day [...] Description 11/24/2024 2:15 PM EDT Office Visit [facility] MEDICINE [address] [place] [address] Amy Pickett MD [address] [place] [address] 12/28/2024 9:45 AM EDT Office Visit [address] [address] documented as of this encounter Visit Diagnoses Not on filedocumented in this encounter Additional Health Concerns Assessment Noted Time PHQ-9 Depression Total Score: 10 024 9:41 AM EDT documented as of this encounter Care Teams Broke Worker Relationship Specialty Start Date End Date Amy Pickett MD [address] [place] [address] PCP - General Internal Medicine 04/07/23 documented as of this encounter
--- OUTSIDE RECORDS SUMMARY | 2024-11-22 20:27 | XMS_ITS | Encounter Summary ---
Author Organization [employer] Address [address] [place] [address] 7 [place] [address] Care Team Providers Care Barrel Washer Machine Name Role Phone Amy Pickett MD Primary Care Pro vider Reason for Visit * Reason Onset Date Comments Med Refill 05/13/2024 Encounter Details Date Type Department Care Team ([facility] st Contact Info) Description 05/13/2024 Telephone [facility] MEDICINE 230 [place], [place] [phone] Amy Pickett MD 230 [place], [place] [phone] Med Refill Social History Tobacco Use Types [...] immediate release tablet To be sent to: [facility]/pharmacy #[id number] - [address] documented in this encounter Plan of Treatment Upcoming Encounters Date Type Department Care Team (Late st Contact Info) Description 11/24/2024 2:15 PM EDT Office Visit [facility] MEDICINE [address] [place] [address] [phone] Amy Pickett MD [address] [place] [address] [phone] 12/28/2024 9:45 AM EDT Office Visit [facility] MEDICINE [address] [place] [address] documented as of this encounter Visit Diagnoses Not on filedocumented in this encounter Additional Health Concerns Assessment Noted Time PHQ-9 Depression Total Score: 10 024 9:41 AM EDT documented as of this encounter Care Teams Barrel Washer Machine Relationship Specialty Start Date End Date Amy Pickett MD [address] [place] [phone] PCP - General Internal Medicine 04/07/23 documented as of this encounter
--- OUTSIDE RECORDS SUMMARY | 2024-11-22 20:27 | XMS_ITS | Encounter Summary ---
Author Organization [employer] Address [address] [place] [address] 7 [place] [address] Care Team Providers Care Human Resource Manager Name Role Phone Amy Pickett MD Primary Care Pro vider Reason for Visit * Reason Onset Date Comments Med Refill 04/09/2024 Encounter Details Date Type Department Care Team (Late st Contact Info) Description 04/09/2024 Telephone [facility] MEDICINE 230 [place], [place] [phone] Amy Pickett MD 230 [place], [place] [phone] Med Refill Social History Tobacco Use Types [...] release tablet To be sent to: [facility]/pharmacy #[id number] - [address] documented in this encounter Plan of Treatment Upcoming Encounters Date Type Department Care Team (Late st Contact Info) Description 11/24/2024 2:15 PM EDT Office Visit [facility] MEDICINE [address] [place] [address] [phone] Amy Pickett MD [address] [place] [address] [phone] 12/28/2024 9:45 AM EDT Office Visit [facility] MEDICINE [address] [place] [address] documented as of this encounter Visit Diagnoses Not on filedocumented in this encounter Additional Health Concerns Assessment Noted Time PHQ-9 Depression Total Score: 10 024 9:41 AM EDT documented as of this encounter Care Teams Human Resource Manager Relationship Specialty Start Date End Date Amy Pickett MD [address] [place] [address] PCP - General Internal Medicine 04/07/23 documented as of this encounter
--- OUTSIDE RECORDS SUMMARY | 2024-11-22 20:27 | XMS_ITS | Encounter Summary ---
Author Organization [employer] Address [address] [place] [address] 7t [place] [address] Care Team Providers Care Supervisor Travel Trailer Name Role Phone Elise Glover Primary Care Provider +1- [phone] Amy Pickett MD Primary Care Pro vider Reason for Visit * Reason Comments Med Change Request Encounter Details Date Type Department Care Team (Late st Contact Info) Description 03/03/2023 Refill [facility] [address] [place] [address] Elise Glover FNP [address] [place] [address] Dept [place] [address] Essential hypertension Social History Tobacco Use Types [...] EDT Office Visit [facility] MEDICINE [address] [place] [address] Amy Pickett MD [address] [place] [address] 12/28/2024 9:45 AM EDT Office Visit [address] [address] documented as of this encounter Visit Diagnoses Diagnosis Essential hypertension Unspecified essential hypertension documented in this encounter Additional Health Concerns Assessment Noted Time PHQ-9 Depression Total Score: 24 023 10:05 AM EDT documented as of this encounter Care Teams Supervisor Travel Trailer Relationship Specialty Start Date End Date Elise Glover FNP PCP - General Family Medicine 07/09/22 04/06/23 Amy Pickett MD [address] [place] [address] PCP - General Internal Medicine 04/07/23 documented as of this encounter
--- OUTSIDE RECORDS SUMMARY | 2024-11-22 20:27 | XMS_ITS | Encounter Summary ---
Author Organization [employer] Address [address] [facility] 7t [place] [address] Care Team Providers Care Civil Engineering Teacher Name Role Phone Amy Pickett MD Primary Care Pro vider Encounter Details Date Type Department Care Team (Late st Contact Info) Description 11/22/2024 Orders Only [facility] External Provider, [facility] Social History Tobacco Use Types Packs/Day Years [...] Description 11/24/2024 2:15 PM EDT Office Visit [facility] MEDICINE [address] [place] [address] [phone] Amy Pickett MD [address] [place] [address] [phone] 12/28/2024 9:45 AM EDT Office Visit [address] [phone] documented as of this encounter Procedures Procedure Name Priority Date/Time Associated Diagnosis Comments XR ELBOW 3+ VIEWS RIGHT Routine 11/22/2024 8:01 PM EDT XR SHOULDER 2+ VIEWS RIGHT Routine 11/22/2024 8:01 PM EDT documented in this encounter Results * XR Shoulder 2+ Views Right (11/22/2024 8:01 PM EDT) Anatomical Region Laterality Modality Upper Extremities, Shoulder Right Radi ographic Imaging 11/22/2024 8:01 PM EDT Narrative 11/22/2024 8:02 PM EDT ? [facility] ?[address] ?[place] [address] ?XRay Report ? Signed ? Patient: Pati Lazcano,Esequiel ?MR# ?? : [id number] ? : 1965 ?Acct:[id number] ? Age/Sex: 58 / M ?ADM Date: 11/22/24 ? Loc: HO.ED ? Attending Dr: ? Ordering Physician: Haleigh Arora ?? Date of Service: 11/22/24 ?? Procedure(s): XR shoulder RT min 2V ?? Accession Number(s): [id number] ? cc: Haleigh Arora; Amy Pickett MD ? CLINICAL HISTORY: pain, injury ? 3 view right shoulder ? Comparison: CR/SR - XR SHOULDER RT MIN 2V - 12/30/23 12:59 EDT ? Findings: ?? No fractures or dislocations. ?? No significant arthritic change. ?? No erosions. No radiopaque foreign body. ? IMPRESSION: ?? 1. No acute findings ? This document has been electronically signed by: Kartik Mason MD on ?? 11/22/2024 20:01:38 ? Dictated By: ?Kartik Mason MD ? Signed By: ?<Electronically signed by Kartik Mason MD in OV> ? 11/22/242001 ? DD/ 00 ? TD/TT: 11/22/242000 ? Retail Advertising Sales Manager: ? Procedure Note Ted Cueva - 11/22/2024 [place] [address] XRay Report Signed Patient: Zain Welch LMR# : [id number] : 1965Acct:[id number] Age/Sex: 58 / MADM Date: 11/22/24 Loc: HO.ED Attending Dr: Ordering Physician: Haleigh Arora Date of Service: 11/22/24 Procedure(s): XR shoulder RT min 2V Accession Number(s): [id number] cc: Haleigh Arora; Amy Pickett MD CLINICAL HISTORY: pain, injury 3 view right shoulder Comparison: CR/SR - XR SHOULDER RT MIN 2V - 12/30/23 12:59 EDT Findings: No fractures or dislocations. No significant arthritic change. No erosions. No radiopaque foreign body. IMPRESSION: 1. No acute findings This document has been electronically signed by: Kartik Mason MD on 11/22/2024 20:01:38 Dictated By: Kartik Mason MD Signed By: <Electronically signed by Kartik Mason MD in OV> 11/22/242001 DD/ 00 TD/TT: 11/22/242000 Retail Advertising Sales Manager: [facility] External Provider IMG XR PROCEDURES Final Result * XR Elbow 3+ Views Right (11/22/2024 8:01 PM EDT) Anatomical Region Laterality Modality Upper Extremities, Elbow Right Radiogr aphic Imaging 11/22/2024 8:01 PM EDT Narrative 11/22/2024 8:02 PM EDT ? [facility] ?[address] ?[place] [address] ?XRay Report ? Signed ? Patient: Pati Lazcano,Esequiel ?MR# ?? : [id number] ? : 1965 ?Acct:[id number] ? Age/Sex: 58 / M ?ADM Date: 11/22/24 ? Loc: HO.ED ? Attending Dr: ? Ordering Physician: Haleigh Arora ?? Date of Service: 11/22/24 ?? Procedure(s): XR elbow RT min 3V ?? Accession Number(s): [id number] ? cc: Haleigh Arora; Amy Pickett MD ? CLINICAL HISTORY: pain, injury ? 3 view right elbow ? Comparison: None ? Findings: ?? No acute fractures. Normal alignment. ?? No significant loss of joint space, osteophytes, or erosions. ?? No joint effusion. ?? No radiopaque foreign body. ? IMPRESSION: ?? 1. No acute findings ? This document has been electronically signed by: Kartik Mason MD on ?? 11/22/2024 20:01:21 ? Dictated By: ?Kartik Mason MD ? Signed By: ?<Electronically signed by Kartik Mason MD in OV> ? 11/22/24 2002 ? DD/ 00 ? TD/TT: 11/22/242000 ? Retail Advertising Sales Manager: ? Procedure Note Anay, Ted - 11/22/[address] [address] XRay Report Signed Patient: Zain Welch LMR# : [id number] : 1965Acct:[id number] Age/Sex: 58 / MADM Date: 11/22/24 Loc: HO.ED Attending Dr: Ordering Physician: Haleigh Arora Date of Service: 11/22/24 Procedure(s): XR elbow RT min 3V Accession Number(s): [id number] cc: Haleigh Arora; Amy Pickett MD CLINICAL HISTORY: pain, injury 3 view right elbow Comparison: None Findings: No acute fractures. Normal alignment. No significant loss of joint space, osteophytes, or erosions. No joint effusion. No radiopaque foreign body. IMPRESSION: 1. No acute findings This document has been electronically signed by: Kartik Mason MD on 11/22/2024 20:01:21 Dictated By: Kartik Mason MD Signed By: <Electronically signed by Kartik Mason MD in OV> 11/22/242001 DD/ 00 TD/TT: 11/22/242000 Retail Advertising Sales Manager: [facility] External Provider IMG XR PROCEDURES Final Result documented in this encounter Visit Diagnoses Not on filedocumented in this encounter Additional Health Concerns Assessment Noted Time PHQ-9 Depression Total Score: 10 024 9:41 AM EDT documented as of this encounter Care Teams Civil Engineering Teacher Relationship Specialty Start Date End Date Amy Pickett MD [address] [place] [address] PCP - General Internal Medicine 04/07/23 documented as of this encounter
--- OUTSIDE RECORDS SUMMARY | 2024-11-22 20:28 | XMS_ITS | Encounter Summary ---
Author Organization [employer] Address [address] [place] [address] 7 [place] [address] Care Team Providers Care Supervisor Area Name Role Phone Amy Pickett MD Primary Care Pro vider Reason for Visit * Reason Onset Date Comments Med Refill 08/06/2024 Encounter Details Date Type Department Care Team ([facility] st Contact Info) Description 08/06/2024 Telephone [facility] MEDICINE 230 [place], [place] [phone] Amy Pickett MD 230 [place], [place] [phone] Med Refill Social History Tobacco Use Types [...] 0.083% nebulizer solution To be sent to: [facility]/pharmacy #[id number] - [address] documented in this encounter Plan of Treatment Upcoming Encounters Date Type Department Care Team (Late st Contact Info) Description 11/24/2024 2:15 PM EDT Office Visit [facility] MEDICINE [address] [place] [address] [phone] Amy Pickett MD 230 [place] [address] 12/28/2024 9:45 AM EDT Office Visit [facility] MEDICINE 230 [place] [address] documented as of this encounter Visit Diagnoses Not on filedocumented in this encounter Additional Health Concerns Assessment Noted Time PHQ-9 Depression Total Score: 10 024 9:41 AM EDT documented as of this encounter Care Teams Supervisor Area Relationship Specialty Start Date End Date Amy Pickett MD 230 [place] [address] PCP - General Internal Medicine 04/07/23 documented as of this encounter
--- OUTSIDE RECORDS SUMMARY | 2024-11-22 20:28 | XMS_ITS | Encounter Summary ---
Author Organization [employer] Address [address] [place] [address] [place] [address] Care Team Providers Care Complaint Clerk Name Role Phone Elise Glover [facility] Primary Care Provider +1- [phone] Amy Pickett MD Primary Care Pro vider Encounter Details Date Type Department Care Team (Late st Contact Info) Description 01/14/2023 Orders Only [facility] MEDICINE [address] [place] [address] [phone] Elise Glover [address] Dept [place] [address] Social History Tobacco Use Types Packs/Day Years [...] Description 11/24/2024 2:15 PM EDT Office Visit [facility] MEDICINE [address] [place] [address] [phone] Amy Pickett MD 230 [place] [address] 12/28/2024 9:45 AM EDT Office Visit [facility] MEDICINE [address] [place] [address] documented as of this encounter Visit Diagnoses Not on filedocumented in this encounter Additional Health Concerns Assessment Noted Time PHQ-9 Depression Total Score: 24 023 10:05 AM EDT documented as of this encounter Care Teams Complaint Clerk Relationship Specialty Start Date End Date Elise Glover FNP PCP - General Family Medicine 07/09/22 04/06/23 Amy Pickett MD [address] [place] [address] PCP - General Internal Medicine 04/07/23 documented as of this encounter
--- OUTSIDE RECORDS SUMMARY | 2024-11-22 20:28 | XMS_ITS | Encounter Summary ---
Author Organization [employer] Address [address] [place] [address] [place] [address] Care Team Providers Care Picker Packer Name Role Phone Elise Glover ENVIRONMENTAL REMEDIATION CONSULTANT Primary Care Provider +1- [phone] Amy Pickett MD Primary Care Pro vider Reason for Visit * Reason Onset Date Comments triage 08/22/2022 Encounter Details Date Type Department Care Team (Late st Contact Info) Description 08/22/2022 Telephone [facility] MEDICINE [address] [place] [address] Elise Glover FNP [address] [place] [address] Dept [place] [address] triage Social History Tobacco Use Types Packs/Day [...] Description 11/24/2024 2:15 PM EDT Office Visit [facility] MEDICINE [address] [place] [address] Amy Pickett MD 230 [place] [address] 12/28/2024 9:45 AM EDT Office Visit [address] [address] documented as of this encounter Visit Diagnoses Not on filedocumented in this encounter Care Teams Picker Packer Relationship Specialty Start Date End Date Elise Glover FNP PCP - General Family Medicine 07/09/22 04/06/23 Amy Pickett MD [address] [place] [address] PCP - General Internal Medicine 04/07/23 documented as of this encounter
--- OUTSIDE RECORDS SUMMARY | 2024-11-22 20:28 | XMS_ITS | Encounter Summary ---
Author Organization [employer] Address [address] [facility] [place] 7 [place] [address] Care Team Providers Care Automated Cutting Machine Operator Name Role Phone Amy Pickett MD Primary Care Pro vider Reason for Visit * Reason Onset Date Comments Med Refill 02/11/2024 Encounter Details Date Type Department Care Team (Late st Contact Info) Description 02/11/2024 Telephone [facility] [address] [place], [place] [phone] Amy Pickett MD [address] [place], [place] [phone] Med Refill Social History Tobacco Use Types [...] immediate release tablet To be sent to: [facility]/pharmacy #[id number] - [address] documented in this encounter Plan of Treatment Upcoming Encounters Date Type Department Care Team (Late st Contact Info) Description 11/24/2024 2:15 PM EDT Office Visit [facility] [address] [place] [phone] mAy Pickett MD [address] [place] [phone] 12/28/2024 9:45 AM EDT Office Visit [facility] [address] [place] [phone] documented as of this encounter Visit Diagnoses Not on filedocumented in this encounter Additional Health Concerns Assessment Noted Time PHQ-9 Depression Total Score: 24 10/01/ 023 10:05 AM EDT documented as of this encounter Care Teams Automated Cutting Machine Operator Relationship Specialty Start Date End Date Amy Pickett MD [address] [place] [phone] PCP - General Internal Medicine 04/07/23 documented as of this encounter
--- OUTSIDE RECORDS SUMMARY | 2024-11-22 20:28 | XMS_ITS | Encounter Summary ---
Author Organization [employer] Address [address] [place] [address] 7 [place] [address] Care Team Providers Care Grinder Chipper Name Role Phone Amy Pickett MD Primary Care Pro vider Reason for Visit * Reason Onset Date Comments Appointment Request 10/05/2024 Encounter Details Date Type Department Care Team ([facility] st Contact Info) Description 10/05/2024 Telephone [facility] [address] [place], [place] [phone] Amy Pickett MD [address] [place] [address] Appointment Request Social History Tobacco Use Types [...] able to make it. Contact Isa at [phone] documented in this encounter Plan of Treatment Upcoming Encounters Date Type Department Care Team (Late st Contact Info) Description 11/24/2024 2:15 PM EDT Office Visit [facility] [address] [place] [phone] Amy Pickett MD [address] [place] [phone] 12/28/2024 9:45 AM EDT Office Visit [address] [phone] documented as of this encounter Visit Diagnoses Not on filedocumented in this encounter Additional Health Concerns Assessment Noted Time PHQ-9 Depression Total Score: 10 024 9:41 AM EDT documented as of this encounter Care Teams Grinder Chipper Relationship Specialty Start Date End Date Amy Pickett MD [address] [place] [phone] PCP - General Internal Medicine 04/07/23 documented as of this encounter
--- OUTSIDE RECORDS SUMMARY | 2024-11-22 20:28 | XMS_ITS | Encounter Summary ---
Author Organization [employer] Address [address] [facility] 7t [place] [address] Care Team Providers Care Melter Supervisor Oxygen Furnace Name Role Phone Amy Pickett MD Primary Care Pro vider Encounter Details Date Type Department Care Team ([facility] st Contact Info) Description 10/01/2024 Orders Only [facility] [address] [place], [place] [phone] Za Preston MD [address] [place] [address] Social History Tobacco Use Types Packs/Day Years [...] Description 11/24/2024 2:15 PM EDT Office Visit [facility] [address] [place] [phone] Amy Pickett MD [address] [place] [phone] 12/28/2024 9:45 AM EDT Office Visit [facility] [address] [place] [phone] documented as of this encounter Visit Diagnoses Not on filedocumented in this encounter Additional Health Concerns Assessment Noted Time PHQ-9 Depression Total Score: 10 024 9:41 AM EDT documented as of this encounter Care Teams Melter Supervisor Oxygen Furnace Relationship Specialty Start Date End Date Amy Pickett MD [address] [place] [phone] PCP - General Internal Medicine 04/07/23 documented as of this encounter
--- OUTSIDE RECORDS SUMMARY | 2024-11-22 20:28 | XMS_ITS | Clinical Summary ---
Author Organization [employer] Address [address] [place] [address] [address] [place] [address] Care Team Providers Care Shuttle Final Inspector Name Role Phone Amy Pickett MD Primary [...] 022 Active Nebulizers (Comp-Air Elite Compact Neb) [facility] Active Blood Pressure [...] vomiting. 60 tablet 1 023 Active pancrelipase, Cye-Ruit-Qdrv, (Creon) 8372-5762 units capsule Take 1 capsule by mouth [...] BY MOUTH AT BEDTIME 30 tablet 2 024 Active nicotine polacrilex (Commit) 4 MG lozenge [...] mg PO BID, 60 tablet 2 Active Famotidine (ZANTAC 360 PO) Take by mouth. Active Nystatin powder 1 Application at noon and 1 Application in the evening. 1 each Active olmesartan (Benicar) 20 MG tabletIndicatio ns:Essential hypertension Take 1 tablet (20 mg) by mouth Once per day. 30 tablet 11 024 2024 Active loratadine (Claritin) 10 MG tablet TAKE 1 TABLET BY MOUTH EVERY DAY 90 tablet 1 Active albuterol (2.5 MG/3ML) 0.083% nebulizer solution TAKE 3 ML BY NEBULIZATION ROUTE EVERY 8 HOURS NEEDED FOR WHEEZING 75 mL 3 025 Active ipratropium-alb uterol (Combivent Respimat) 20-100 MCG/ACT inhalerIndicati ons:Moderate persistent asthma without complication Inhale 2 puffs every 6 (six) hours. 4 g 3 025 Active tamsulosin (Flomax) 0.4 MG 24 hr capsule TAKE 1 CAPSULE (0.4 MG) BY MOUTH IN THE MORNING. EVERY DAY 1/2 HOUR FOLLOWING THE SAME MEAL EACH DAY 90 capsule 025 Active oxyCODONE (Roxicodone) 15 MG immediate release tabletIndicatio ns:HEART SPECIALIST checked 06/13/22 Take 1 tablet (15 mg) by mouth every 6 (six) hours for 28 days. 112 tablet 025 2024 Active cyanocobalamin (Vitamin B-12) 1000 MCG tablet TAKE 1 TABLET (1,000 MCG) BY MOUTH ONCE PER DAY. 90 tablet 025 Active atorvastatin (Lipitor) 40 MG tablet TAKE 1 TABLET BY MOUTH EVERY DAY IN THE MORNING 90 tablet 025 Active clopidogrel (Plavix) 75 MG tablet Take 75 mg by mouth. 024 2024 cyanocobalamin (Vitamin B-12) 1000 MCG tablet TAKE 1 TABLET (1,000 MCG) BY MOUTH ONCE PER DAY. 90 tablet 025 2024 Discontinued atorvastatin (Lipitor) 40 MG tablet TAKE 1 TABLET BY MOUTH EVERY DAY IN THE MORNING 90 tablet 025 2024 Discontinued oxyCODONE (Roxicodone) 15 MG immediate release tabletIndicatio ns:HEART SPECIALIST checked 06/13/22 Take 1 tablet (15 [...] recommended. -Supportive care advised. -Isolation recommendations discussed. oil heaterman 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 2023 Overview (09/28/2024): Dx: chronic neck, low back pain, LE claudication Rx: Oxycodone 15mg IR q 6 hours Last PIZZA DELIVERY DRIVER agreement: 09/28/24 Additional considerations: Alprazolam 1mg for anxiety Timeline: -previous positive utox for cocaine 11/2023 -09/28/24: group visit - utox/pill count wnl Chronic obstructive pulmonar y disease, unspecified COPD type 05/16/2024 Overview (09/05/2024): Following with [facility] pulmonology-Dr. Maldonado Continue with [...] Injections 11/2022 Encouraged stretching Will refer to [facility] Continue PIZZA DELIVERY DRIVER at this time. Will perform random [...] C7 fracture seen on CT scan at [facility] ER 10/28/23 He participated [...] C7 fracture seen on CT scan at [facility] ER 10/28/23 He participated [...] Injections 11/2022 Encouraged stretching Will refer to [facility] physical therapy Continue PIZZA DELIVERY DRIVER at this time. Will perform random [...] lumbar pain. Encouraged stretching Will refer to [facility] Continue PIZZA DELIVERY DRIVER at this time. Will perform random [...] organization. Date Type Department Care Team Description 11/22/2024 Orders Only [facility] External Provider, [facility] 11/17/2024 Travel 11/17/2024 Telephone [facility] [address] [place] [address] 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 RN 11/16/2024 Telephone [facility] [address] [place] [address] 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, DARIANA Med Refill 11/10/2024 Refill [facility] [address] [place] [address] Bri Noriega MD 11/08/2024 Telephone [facility] [address] [place] [address] Amy Pickett MD [facility]. 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 pain of both knees; Chronic low back pain, unspecified back pain laterality, unspecified whether sciatica present 10/27/2024 Telephone [facility] [address] [place] [address] Amy Pickett MD Med Refill 10/05/2024 Telephone [facility] [address] [place] [address] 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 RN 10/05/2024 Telephone [facility] [address] [place] [phone] Amy Pickett MD Appointment Request 10/01/2024 Orders Only [facility] [address] [place] [address] Za Preston MD 10/01/[address] [address] Amy Pickett MD Results 09/29/2024 Orders Only [facility] [address] [place] [address] Brent Hanson MD 09/28/2024 9:45 AM EDT Office Visit [address] [address] Holly Wills FNP Cervical spondylosis without myelopathy (Primary Dx); oil heaterman 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 09/28/[address] [address] Amy Pickett MD Chronic pain of both knees; Chronic low back pain, unspecified back pain laterality, unspecified whether sciatica present 09/28/2024 Travel 09/22/2024 6:20 PM EDT [facility] [address] [address] Brent Hanson MD STD exposure (Primary Dx); Balanitis; Left hip pain 09/22/[address] [address] Amy Pickett MD Nurse Triage 09/19/2024 Refill [facility] [address] [place] [address] Chioma Mojica MD 09/07/2024 9:20 AM EST Office Visit [facility] [address] [address] Bri Noriega MD Viral infection 09/07/[address] [address] Amy Pickett MD [employer] (Boost, strawberry tetra brik 8oz ()) 09/06/2024 Orders Only GENERIC EXTERNAL DATA DEPARTMENT Provider, Generic External Data 09/06/2024 Telephone [facility] [address] [place] [address] Amy Pickett MD [employer] (Boost recert) 09/01/2024 Refill [facility] [address] [place] [address] Amy Pickett MD Chronic pain of both knees; Chronic low back pain, unspecified back pain laterality, unspecified whether sciatica present 09/01/2024 Refill [facility] [address] [place] [address] Amy Pickett MD Moderate persistent asthma without complication 09/01/2024 Telephone [facility] [address] [place] [phone] Amy Pickett MD 09/01/2024 Telephone [facility] [address] [place] [phone] Amy Pickett MD 08/31/2024 9:45 AM EST Office Visit [facility] [address] [place] [phone] Holly Wills FNP Cervical spondylosis without myelopathy (Primary Dx); oil heaterman 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; Chronic obstructive pulmonary disease, unspecified COPD type ([facility]) 08/31/2024 Refill [facility] [address] [place] [phone] Holly Wills FNP Moderate persistent asthma without complication 08/31/2024 Travel 08/25/2024 Telephone [facility] [address] [place] [address] Shu Martínez [place] October recall from Last 3 Months Immunizations Immunization Administration Dates Next Due Hep B, adult [...] Description 11/24/2024 2:15 PM EDT Office Visit [facility] [address] [place] [phone] Amy Pickett MD [address] [place], [place] [phone] 12/28/2024 9:45 AM EDT Office Visit [facility] [address] [place] [address] Health Maintenance Due Date Last Done Comments CT Colonography 1967 FIT DNA/Cologuard 1967 FIT 1967 FOBT 1967 Sigmoidoscopy 1967 Disability Screening 1967 Alcohol/Substance Use Screening 1979 Hepatitis A Vaccines (1 of 2 - Risk 2-dose series) 12/23/1986 Depression Screening 03/12/2025 03/12/2024, 03/12/20 SDOH Screening 05/14/2025 05/14/2024 Tobacco Screening 09/07/2025 [...] Name Priority Date/Time Associated Diagnosis Comments XR SHOULDER 2+ VIEWS RIGHT Routine 11/22/2024 8:01 PM EDT XR ELBOW 3+ VIEWS RIGHT Routine 11/22/2024 8:01 PM EDT HEPATITIS C VIRAL RNA, QUANTITATIVE, REAL-TIME PCR [...] 1:23 PM EDT Cervical spondylosis without myelopathy oil heaterman 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 CHLAMYDIA/N. GONORRHOEAE [...] DRUG SCREEN Routine 08/31/2024 1:11 PM EST oil heaterman 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 HM COLONOSCOPY Routine 01/06/2018 8:00 AM EDT from Last 3 Months or Most Recently Relevant to Health Maintenance Results * XR Elbow 3+ Views Right (11/22/2024 8:01 PM EDT) Anatomical Region Laterality Modality Upper Extremities, Elbow Right Radiogr aphic Imaging 11/22/2024 8:01 PM EDT Narrative 11/22/2024 8:02 PM EDT ? [facility] ?[address] ?[place] [address] ?XRay Report ? Signed ? Patient: Pati Lazcano,Esequiel ?MR# ?? : [id number] ? : 1965 ?Acct:[id number] ? Age/Sex: 58 / M ?ADM Date: 11/22/24 ? Loc: HO.ED ? Attending Dr: ? Ordering Physician: Haleigh Arora ?? Date of Service: 11/22/24 ?? Procedure(s): XR elbow RT min 3V ?? Accession Number(s): [id number] ? cc: Haleigh Arora; Amy Pickett MD [...] ? DD/ 00 ? TD/TT: 11/22/242000 ? University Archivist: ? Procedure Note Ted Cueva - 11/22/[address] [address] XRay Report Signed Patient: Zain Welch LMR# : [id number] : 1965Acct:[id number] Age/Sex: 58 / MADM Date: 11/22/24 Loc: HO.ED Attending Dr: Ordering Physician: Haleigh Arora Date of Service: 11/22/24 Procedure(s): XR elbow RT min 3V Accession Number(s): [id number] cc: Haleigh Arora; Amy Pickett MD CLINICAL [...] in OV> 11/22/242001 DD/ 00 TD/TT: 11/22/242000 University Archivist: [facility] External Provider IMG XR PROCEDURES Final Result * XR Shoulder 2+ Views Right (11/22/2024 8:01 PM EDT) Anatomical Region Laterality Modality Upper Extremities, Shoulder Right Radi ographic Imaging 11/22/2024 8:01 PM EDT Narrative 11/22/2024 8:02 PM EDT ? [facility] ?[address] ?[place] [address] ?XRay Report ? Signed ? Patient: Zain Welch ?MR# ?? : [id number] ? : 1965 ?Acct:[id number] ? Age/Sex: 58 / M ?ADM Date: 11/22/24 ? Loc: HO.ED ? Attending Dr: ? Ordering Physician: Haleigh Arora ?? Date of Service: 11/22/24 ?? Procedure(s): XR shoulder RT min 2V ?? Accession Number(s): [id number] ? cc: Haleigh Arora; Amy Pickett MD [...] ? DD/ 00 ? TD/TT: 11/22/242000 ? University Archivist: ? Procedure Note Marlenter, Image - 11/22/[address] [address] XRay Report Signed Patient: Zain Welch LMR# : [id number] : 1965Acct:[id number] Age/Sex: 58 / MADM Date: 11/22/24 Loc: HO.ED Attending Dr: Ordering Physician: Haleigh Arora Date of Service: 11/22/24 Procedure(s): XR shoulder RT min 2V Accession Number(s): [id number] cc: Haleigh Arora; Amy Pickett MD CLINICAL [...] in OV> 11/22/242001 DD/ 00 TD/TT: 11/22/242000 University Archivist: [facility] External Provider IMG XR PROCEDURES Final Result * Syphilis Screen (09/29/2024 3:37 PM EDT) Syphilis Screen Nonreactive Nonreactive [facility] Blood 09/29/2024 3:37 PM EDT 09/29/2024 3:38 PM EDT Brent Fischer MD LAB BLOOD ORDERABL ES Final Result [facility] [address] [place] [phone] * Vitamin B12 (Cobalamin) and Folate Panel, Serum (09/29/2024 3:37 PM EDT) Pathologist [facility] Vitamin B12 338 200 - 900 pg/mL [facility] Comment:NORMAL 200-900 PG/ML INDETERMINATE 160-199 PG/ML DEFICIENT < 160 PG/ML Folate 7.6 > or = 4.0 ng/mL [facility] Comment:Reference Values:> o r = 4.0 ng/mL< 4.0 ng/mL suggests folate deficiency Methotrexate, aminopterin and folinic acid(leucovorin) are chemotherapeutic agents whose molecularstructures are similar to folate; therefore, the Architectfolate assay cannot be used for patients using these drugs. Blood 09/29/2024 3:37 PM EDT 09/29/2024 3:38 PM EDT Amy Berry MD LAB BLOOD ORDERAB LES Final Result Performing Organization Address [facility] Co de Phone Number [facility] [address] [place] [address] [phone] * Hepatitis C Viral RNA, Quantitative, Real-Time PCR (09/29/2024 3:37 PM EDT) Pathologist [facility] Hepatitis C Viral Load <15 NOT DETECTED NOT DETECTED IU/mL [facility] HCV Log PCR <1.18 NOT DETECTED NOT DETECTED Log IU/mL [facility] Comment:For additional infor mation, please refer [email or web address].ODIN/faq/XMY51e9(This link is being provided for informational/educational purposes only.)THIS TEST WAS PERFORMED AT:[facility] [place] [phone] GAUTAM MD 09/29/2024 3:37 PM EDT 09/30/2024 12:15 PM EDT Brent Fischer MD LAB BLOOD ORDERABL ES Final Result Performing Organization Address [facility]/ZIP Co de Phone Number [facility] [address] [place] [phone] * (ABNORMAL) Hepatitis C Antibody with Reflex to HCV, RNA, Quantitative, Real- Time PCR (09/29/2024 3:37 PM EDT) Hepatitis C Antibody Reactive( A) Nonreactive [facility] Comment:Presumptive evidence of antibodies to HCV. Blood Venous blood specimen / Unknown 09/29/2024 3:37 PM EDT 09/29/2024 3:38 PM EDT Brent Fischer MD LAB BLOOD ORDERABL ES Final Result Performing Organization Address [facility] Co de Phone Number [facility] [address] [place] [phone] * HIV-1/2 Antigen and Antibodies, Fourth Generation, with Reflexes (09/29/2024 3:37 PM EDT) Pathologist [facility] HIV AB/AG Nonreactive Nonreactive [facility] Comment:HIV-1 p24 Ag and/or HIV-1/HIV-2 Ab not detected.A test result that is nonreactive does not exclude thepossibility of exposure to or infection with HIV-1 and/orHIV-2. Nonreactive results in this assay for individualswith prior exposure to HIV-1 and/or HIV-2 may be due toantigen and antibody levels that are below the limit ofdetection of this assay.The [employer] HIV Ag/Ab Combo assay result andsupplemental assay results should be interpreted inconjunction with the patient's clinical presentation,history and other laboratory results. If the results areinconsistent with clinical evidence, additional testing issuggested to confirm the result. Blood Venous blood specimen / Unknown 09/29/2024 3:37 PM EDT 09/29/2024 3:38 PM EDT us Brent Fischer MD LAB BLOOD ORDERABL ES Final Result Performing Organization Address [facility]/ZIP Co de Phone Number [facility] [address] [place] [address] [phone] * C-reactive Protein (09/29/2024 3:37 PM EDT) C Reactive Protein 0.18 < or = 0.50 mg/dL [facility] Blood Venous blood specimen / Unknown 09/29/2024 3:37 PM EDT 09/29/2024 3:38 PM EDT us Amy Berry MD LAB BLOOD ORDERAB LES Final Result Performing Organization Address [facility] Co de Phone Number [facility] [address] [place] [phone] [phone] * (ABNORMAL) Lipid Panel, Standard (09/29/2024 3:37 PM EDT) Triglycerides 155(H) <150 mg/dL [facility] Comment:Desirable Triglyceri de: less than 150 mg/dLBorderline High Triglyceride 150-199 mg/dLHigh Triglyceride: 200-499 mg/dLVery High Triglyceride: greater than or equal to 5OO mg/dL Cholesterol 211(H) <200 mg/dL [facility] Comment:Desirable Cholestero l: less than 200 mg/dLBorderline High Cholesterol: 200-239 mg/dLHigh Cholesterol: greater than 239 mg/dL LDL Cholesterol Calculated 131(H) <100 mg/dL [facility] Comment:Desirable LDL: less than 100 mg/dLNear Optimal/Above Optimal LDL: 110- 129 mg/dLBorderline High LDL: 130-159 mg/dLHigh LDL: 160-189 mg/dLVery High LDL: greater than or equal to 190 mg/dL HDL Cholesterol 49 >40 mg/dL [facility] Comment:Desirable HDL: great er than 40 mg/dL Note: This HDL assay may give artificially low results in patients with liver disease. Blood Venous blood specimen / Unknown 09/29/2024 3:37 PM EDT 09/29/2024 3:38 PM EDT Amy Berry MD LAB BLOOD ORDERAB LES Final Result [facility] [address] [place] [phone] * (ABNORMAL) Comprehensive Metabolic Panel (09/29/2024 3:37 PM EDT) Only the most recent of2 resultswithin the time period is included. Sodium 140 135 - 145 mmol/L [facility] Potassium 4.5 3.3 - 5.1 mmol/L [facility] Chloride 109(H) 96 - 108 mmol/L [facility] Carbon Dioxide 26 22 - 29 mmol/L [facility] Anion Gap 10(L) 12 - 20 [facility] Urea Nitrogen (BUN) 21(H) 9 - 16 mg/dL [facility] Creatinine, Serum 0.94 0.5 - 1.4 mg/dL [facility] Estimated Glomerular Filt Rate >60 [facility] Comment:Chronic Kidney Disea se: Estimated GFR < 60 mL/min/1.40p0Djpfsy Kidney Disease: Estimated GFR < 15 mL/min/1.73m2 Glucose 108 60 - 115 mg/dL [facility] Calcium 9.7 8.4 - 10.2 mg/dL [facility] Bilirubin, Total 0.3 0.0 - 1.0 mg/dL [facility] Aspartate Amino Transferase 15 5 - 37 U/L [facility] Alanine Aminotransferase 21 0 - 40 U/L [facility] Total Protein 7.0 6.5 - 8.0 g/dL [facility] Albumin Level 4.2 3.5 - 5.0 g/dL [facility] Alkaline Phosphatase 92 39 - 117 U/L [facility] Blood Venous blood specimen / Unknown 09/29/2024 3:37 PM EDT 09/29/2024 3:38 PM EDT Amy Berry MD LAB BLOOD ORDERAB LES Final Result [facility] [address] [place] [address] [phone] * Chlamydia/N. Gonorrhoeae RNA, TMA, Urogenitial (09/29/2024 12:00 AM EDT) Only the most recent of2 resultswithin the time period is included. CT PCR NOT DETECTED Not Detect. [facility] Comment:A not detected test result does [...] psychologicalconsequences. NG PCR NOT DETECTED Not Detect. [facility] Comment:A not detected test result does [...] medical, social or psychologicalconsequences. 09/29/2024 09/29/2024 Narrative [facility] - 09/30/2024 5:59 AM EDT Urine Brent Fischer MD LAB MICROBIOLOGY - GENERAL ORDERABLES Final Result [facility] [address] [place] [address] [phone] * POCT ROBIN-14 Urine Drug Screen (09/28/2024 1:23 PM EDT) Only the most recent of2 resultswithin the time period is included. Pathologist [facility] THC Positive Cocaine Screen, Urine Negative Opiate [...] Unknown 09/28/2024 1:23 PM EDT Narrative [place], [place] - 09/28/2024 1:26 PM EDT Lot:[id number] Exp: 02/24/2028 Holly GARDNER POINT OF CARE TEST ENTER/EDIT ORDERABLES Final Result * POCT Influenza A manually resulted (09/07/2024 10:01 AM EST) Pathologist [facility] Rapid Influenza A Ag Negative Negative, Indeterminate QC Media Lot # [id number] Lot# Expiration Date 100,826 Swab Nasopharyngeal structure / Unknown 09/07/2024 10:01 AM EST Bri Noriega MD POINT OF CARE TEST ENTER/E DIT ORDERABLES Final Result * POCT Influenza B manually resulted (09/07/2024 9:53 AM EST) Pathologist [facility] Rapid Influenza B Ag Negative Negative, Indeterminate QC Media Lot # [id number] Lot# Expiration Date [id number] Swab 09/07/2024 9:53 AM EST Bri Noriega MD POINT OF CARE TEST ENTER/E DIT ORDERABLES Final Result * POCT Rapid COVID Ag (09/07/2024 9:52 AM EST) [facility] Rapid COVID Ag Negative QC Media Lot # [id number] Lot# Expiration Date 91,426 Swab 09/07/2024 9:52 AM EST Bri Noriega MD POINT OF CARE TEST ENTER/E DIT ORDERABLES Final Result * High Sensitivity Troponin I (09/06/2024 12:14 PM EST) [facility] TROPONIN I HIGH SENSITIVITY <2.7 <3.5 - 35.0 ng/L [facility] Comment:The [place] high sens itivity Troponin-I results should beused in conjunction with other diagnostic information suchas ECG, clinical observations and information, and patientsymptoms to aid in the diagnosis of [place]. 09/06/2024 12:1 4 PM EST 09/06/2024 12:19 PM EST us Generic External Data Provider LAB BLOOD ORDERAB LES Final Result [facility] [address] [place] [phone] * SARS-CoV-2 RNA, Influenza A/B, and RSV RNA, Ql NAAT (09/06/2024 12:14 PM EST) [facility] Influenza A PCR NEGATIVE Negative [facility] Influenza B PCR NEGATIVE Negative [facility] Resp Syncy Virus RNA Qual PCR NEGATIVE Negative [facility] SARS COV2 PCR NEGATIVE Negative [facility] Comment:All test results mus t [...] use by authorized laboratories.Testing performed on the [employer]pert utilizingreal-time RT-PCR.All SARS CoV2 and positive influenza A/B results arereported to [facility]. 09/06/2024 12:1 4 PM EST 09/06/2024 12:19 PM EST us Generic External Data Provider LAB MICROBIOLOGY - GENERAL ORDERABLES Final Result [facility] [address] [place] [phone] [phone] * (ABNORMAL) CBC auto differential (09/06/2024 12:14 PM EST) White Blood Count 7.6 4.8 - 10.8 X10*3/uL [facility] Red Blood Count 4.30(L) 4.60 - 5.80 X10*6/uL [facility] Hemoglobin 13.3(L) 14.0 - 18.0 g/dl [facility] Hematocrit 40.1(L) 42.0 - 52.0 % [facility] Mean Corpuscular Volume 93.3 80.0 - 98.0 fL [facility] Mean Corpuscular Hemoglobin 30.9 27.0 - 33.0 pg [facility] Mean Corpuscular HGB Conc 33.2 31.0 - 36.0 g/dl [facility] Red Cell Distribution Width 14.2 11.0 - 16.0 % [facility] Platelet Count 248 160 - 400 X10*3/uL [facility] Mean Platelet Volume 9.2(L) 9.4 - 12.4 fL [facility] Neutrophils Percent Auto 73.0 45 - 73 % [facility] Imm Gran Pct Auto 0.3 0.0 - 0.4 % [facility] Lymphocytes Percent Auto 20.0 20 - 40 % [facility] Monocytes Percent Auto 6.2 2 - 11 % [facility] Eosinophils Percent Auto 0.4 0 - 4 % [facility] Basophils Percent Auto 0.1 0 - 2 % [facility] NRBC Pct Auto 0.0 0.0 - 0.2 /100WBC [facility] Neutrophils Absolute Auto 5.5 2.0 - 8.3 x10*3/uL [facility] Imm Gran Abs Auto 0.02 0.00 - 0.03 X10*3/uL [facility] Lymphocytes Absolute Auto 1.5 1.2 - 4.9 X10*3/uL [facility] Monocytes Absolute Auto 0.5 0.1 - 1.2 X10*3/uL [facility] Eosinophils Absolute Auto 0.0 0.0 - 0.4 X10*3/uL [facility] Basophils Absolute Auto 0.0 0.0 - 0.2 X10*3/uL [facility] NRBC Abs Auto 0.000 0.0 - 0.012 X10*3/uL [facility] 09/06/2024 12:1 4 PM EST 09/06/2024 12:19 PM EST us Generic External Data Provider LAB BLOOD ORDERAB LES Final Result [facility] [address] [place] [phone] * Urinalysis w/reflex microscopic (09/06/2024 12:14 PM EST) Color Urine Yellow [facility] Appearance Urine Clear [facility] PH 6.5 5.0 - 9.0 [facility] Glucose Urine UA Negative Negative mg/dL [facility] Urine Blood Negative Negative [facility] Specific [place] - Urine <=1.005 1.005 - 1.025 [facility] Urine Protein Negative Neg-Trace mg/dL [facility] Urine Ketones Negative Negative mg/dL [facility] Nitrite Urine Negative Negative [facility] Leukocyte Esterase Urine Negative Negative [facility] 09/06/2024 12:1 4 PM EST 09/06/2024 12:19 PM EST Narrative [facility] - 09/06/2024 12:23 PM EST Urine, Clean Catch Generic External Data Provider LAB URINE ORDERAB LES Final Result Performing Organization Address City/[facility] Co de Phone Number [facility] [address] [place] [phone] * Partial Thromboplastin Time, Activated (APTT) (09/06/2024 12:14 PM EST) Partial Thromboplastin Time 30.4 26.0 - 36.8 SEC [facility] Comment:For information rega rding the monitoring of direct thrombininhibitors, please refer to Pharmacy. 09/06/2024 12:1 4 PM EST 09/06/2024 12:19 PM EST Generic External Data Provider LAB BLOOD ORDERAB LES Final Result Performing Organization Address [facility] Co de Phone Number [facility] [address] [place] [phone] * Prothrombin Time-INR (09/06/2024 12:14 PM EST) Prothrombin Time 11.4 10.9 - 12.4 SEC [facility] INTERNATIONAL NORM RATIO 1.0 0.9 - 1.1 [facility] Comment:INTERNATIONAL NORMAL IZED RATIO (INR) REFERENCE [...] Final Result Performing Organization Address [facility] de Phone Number [facility] [address] [place] [address] [phone] * Magnesium (09/06/2024 12:14 PM EST) Magnesium 2.1 1.6 - 2.6 mg/dL [facility] 09/06/2024 12:1 4 PM EST 09/06/2024 12:19 PM EST Generic External Data Provider LAB BLOOD ORDERAB LES Final Result Performing Organization Address [facility] de Phone Number [facility] [address] [place] [address] [phone] * XR Chest 2 Views (09/06/2024 11:57 AM EST) Anatomical Region Laterality Modality Chest Radiographic Maxine ging 09/06/2024 11:5 7 AM EST Narrative 09/06/2024 1:08 PM EST ? [facility] ?[address] ?[place] [address] ?XRay Report ? Signed ? Patient: Pati Lazcano,Esequiel ?MR# ?? : [id number] ? : 1965 ?Acct:[id number] ? Age/Sex: 58 / M ?ADM Date: 03/03/25 ? Loc: HO.ED ? Attending Dr: ? Ordering Physician: Haleigh Arora ?? Date of Service: 03/03/25 ?? Procedure(s): XR chest 2V ?? Accession Number(s): [id number] ? cc: Haleigh Arora; Amy Pickett MD [...] DD/ 1157 ? TD/TT: 09/06/24 1245 ? University Archivist: ? Procedure Note Donotyiselinterpreter, Image - 09/06/2024 [place] [address] XRay Report Signed Patient: Zain Welch LMR# : [id number] : 1965Acct:[id number] Age/Sex: 58 / MADM Date: 09/06/24 Loc: HO.ED Attending Dr: Ordering Physician: Haleigh Arora Date of Service: 09/06/24 Procedure(s): XR chest 2V Accession Number(s): [id number] cc: Haleigh Arora; Amy Pickett MD EXAMINATION: [...] acute cardiopulmonary abnormality. Electronically signed by: Terry Jseus MD 09/06/2024 01:05 PM [facility] Dictated By: Terry Jesus MD Signed By: <Electronically signed by Terry Jesus MD in OV> 09/06/24 1305 DD/ 1157 TD/TT: 09/06/24 1245 University Archivist: [facility] External Provider IMG XR PROCEDURES Final Result * Hm Colonoscopy (01/06/2018 8:00 AM EDT) Historical Provider HEALTH MAINTENANCE Final Result from Last 3 Months or Most Recently Relevant to Health Maintenance Insurance [address] [place], [place] [facility] ONE CARE < [address] [facility] STANDARD [address] [place], [place] [address] [place], [place] Care Teams Shuttle Final Inspector Relationship Specialty Start Date End Date Amy Pickett MD [address] [place] [phone] PCP - General Internal Medicine 04/07/23
--- OUTSIDE RECORDS SUMMARY | 2024-11-22 20:28 | XMS_ITS | Encounter Summary ---
Author Organization [employer] Address [address] [facility] 7 [place] [address] Care Team Providers Care Salesperson Children'S Shoes Name Role Phone Amy Pickett MD Primary Care Pro vider Reason for Visit * Reason Onset Date Comments Appointment Request 09/02/2023 Encounter Details Date Type Department Care Team ([facility] st Contact Info) Description 09/02/2023 Telephone [facility] [address] [place], [place] [phone] Amy Pickett MD [address] [place] [address] Appointment Request Social History Tobacco Use Types [...] t he electric, gas, oil or water Call Britannia threatened to shut off services in your [...] Miscellaneous Notes * Telephone Encounter - Mary Catrachito - 09/02/2023 9:43 AM EST Tc from pt requesting a transfer patient appointment. Selvage Machine Operator does not see any availability. Pt states he needs appointment as soon as possible due to controlled medication. States needs to be seen bya new provider to continue medication. Please contact pt at [phone] documented in this encounter Plan of Treatment Upcoming Encounters Date Type Department Care Team (Late st Contact Info) Description 11/24/2024 2:15 PM EDT Office Visit [facility] [address] [place] [phone] Amy Pickett MD [address] [place] [address] 12/28/2024 9:45 AM EDT Office Visit [address] [address] documented as of this encounter Visit Diagnoses Not on filedocumented in this encounter Additional Health Concerns Assessment Noted Time PHQ-9 Depression Total Score: 24 023 10:05 AM EDT documented as of this encounter Care Teams Salesperson Children'S Shoes Relationship Specialty Start Date End Date Amy Pickett MD [address] [place] [phone] PCP - General Internal Medicine 04/07/23 documented as of this encounter
--- OUTSIDE RECORDS SUMMARY | 2024-11-22 20:28 | XMS_ITS | Encounter Summary ---
Author Organization [employer] Address [address] [facility] 7t [place] [address] Care Team Providers Care Tongue Trimmer Name Role Phone Elise Glover INSULATION MANAGER Primary Care Provider [phone] Amy Pickett MD Primary Care Pro vider Reason for Visit * Reason Onset Date Comments Durable Medical Equipment 10/07/2022 Encounter Details Date Type Department Care Team (Late st Contact Info) Description 10/07/[address] [facility] MEDICINE [address] [place] [phone] Elise Glover FNP [address] [place] [address] Dept [place] [address] Durable Medical Equipment Social History Tobacco Use [...] Miscellaneous Notes * Telephone Encounter - Katie Colon - 10/07/2022 12:28 PM EDT Scripts generated for providers signature * Telephone Encounter - Skylardiomedes Fernandezkenia Marquez - 10/07/2022 11:47 AM EDT Tc from Anabelle with N requesting a script for Shower Chair, Had held shower held, Non-slip Mat, Med Reminder, and a Toilet riser. If any questions please contact Anabelle at [phone] documented in this encounter Plan of Treatment Upcoming Encounters Date Type Department Care Team (Late st Contact Info) Description 11/24/2024 2:15 PM EDT Office Visit [address] [address] Amy Pickett MD [address] [place] [address] 12/28/2024 9:45 AM EDT Office Visit [address] [address] documented as of this encounter Visit Diagnoses Not on filedocumented in this encounter Additional Health Concerns Assessment Noted Time PHQ-9 Depression Total Score: 24 023 10:05 AM EDT documented as of this encounter Care Teams Tongue Trimmer Relationship Specialty Start Date End Date Elise Glover FNP PCP - General Family Medicine 07/09/22 04/06/23 Amy Pickett MD [address] [place] [phone] PCP - General Internal Medicine 04/07/23 documented as of this encounter
--- OUTSIDE RECORDS SUMMARY | 2024-11-22 20:28 | XMS_ITS | Encounter Summary ---
Author Organization [employer] Address 75 [facility] 7 [place] [address] Care Team Providers Care Vacuum Truck Driver Name Role Phone Amy Pickett MD Primary Care Pro vider Reason for Visit * Reason Comments Med Refill Encounter Details Date Type Department Care Team ([facility] st Contact Info) Description 06/17/2024 Refill [facility]INE [address] [place], [place] [phone] Amy Pickett MD [address] [place] [address] Social History Tobacco Use Types Packs/Day Years [...] [facility] [address] [place] [phone] Amy Pickett MD [address] [place] [address] 12/28/2024 9:45 AM EDT Office Visit [facility] [address] [place] [address] documented as of this encounter Visit Diagnoses Not on filedocumented in this encounter Additional Health Concerns Assessment Noted Time PHQ-9 Depression Total Score: 10 024 9:41 AM EDT documented as of this encounter Care Teams Vacuum Truck Driver Relationship Specialty Start Date End Date Amy Pickett MD [address] [place] [address] PCP - General Internal Medicine 04/07/23 documented as of this encounter
--- OUTSIDE RECORDS SUMMARY | 2024-11-22 20:28 | XMS_ITS | Encounter Summary ---
Author Organization [employer] Address [address] [facility] 7 [place] [address] Care Team Providers Care Grey Goods Tester Name Role Phone Amy Pickett MD Primary Care Pro vider Reason for Visit * Reason Onset Date Comments Results 10/01/2024 Encounter Details Date Type Department Care Team ([facility] st Contact Info) Description 10/01/2024 Telephone [facility] MEDICINE [address] [place], [place] [phone] Amy Pickett MD [address] [place] [address] Results Social History Tobacco Use Types Packs/Day [...] Test Date when done: 09/29/24 Facility: [facility] Contact pt at [phone] documented in this encounter Plan of Treatment Upcoming Encounters Date Type Department Care Team (Late st Contact Info) Description 11/24/2024 2:15 PM EDT Office Visit [facility] MEDICINE [address] [place] [phone] Amy Pickett MD [address] [place] [address] 12/28/2024 9:45 AM EDT Office Visit [facility] [address] [place] [address] documented as of this encounter Visit Diagnoses Not on filedocumented in this encounter Additional Health Concerns Assessment Noted Time PHQ-9 Depression Total Score: 10 024 9:41 AM EDT documented as of this encounter Care Teams Grey Goods Tester Relationship Specialty Start Date End Date Amy Pickett MD [address] [place] [address] PCP - General Internal Medicine 04/07/23 documented as of this encounter
--- OUTSIDE RECORDS SUMMARY | 2024-11-22 20:28 | XMS_ITS | Encounter Summary ---
Author Organization [employer] Address [address] [facility] [address] 7t [place] [address] Care Team Providers Care Software Design Engineer Name Role Phone Amy Pickett MD Primary Care Pro vider Encounter Details Date Type Department Care Team (Late st Contact Info) Description 06/24/2024 Orders Only [facility] MEDICINE [address] [place] [address] Provider, MD Bryan Social History Tobacco Use Types Packs/Day Years [...] Description 11/24/2024 2:15 PM EDT Office Visit [facility] [address] [place] [address] Amy Pickett MD [address] [place] [address] 12/28/2024 9:45 AM EDT Office Visit [address] [address] documented as of this encounter Procedures Procedure [...] documented as of this encounter Care Teams Software Design Engineer Relationship Specialty Start Date End Date Amy Pickett MD [address] [place] [address] PCP - General Internal Medicine 04/07/23 documented as of this encounter
[2024-11-22 21:09] VITALS: BP 142/81; PULSE 78; RESP 16; TEMP 36.7; O2SAT 95
== END 2024-11-22 21:19 | disposition home or self-care (01) ==
PROVIDERS: Emergency Provider Emergency Medicine; PCP Student in an Organized Health Care Education/Training Program
DX: S43.402A Unspecified sprain of left shoulder joint, initial encounter (principal); S50.01XA Contusion of right elbow, initial encounter; W11.XXXA Fall on and from ladder, initial encounter; Y93.9 Activity, unspecified; Y92.039 Unspecified place in apartment as the place of occurrence of the external cause; Y99.9 Unspecified external cause status
CPT/HCPCS: 73030; 73080; 99282; 99283

== ENCOUNTER → 2024-11-22 19:04 | Outpatient (BNV) | payer OTHER, SELFPAY | PROVIDERS: PCP Student in an Organized Health Care Education/Training Program; Visit Provider Radiology Diagnostic Radiology | DX: M25.511 Pain in right shoulder (principal); M25.521 Pain in right elbow | CPT/HCPCS: 73030; 73080 ==

== ENCOUNTER → 2024-12-22 19:30 | Outpatient (REF) | payer OTHER, SELFPAY ==
--- OUTSIDE RECORDS SUMMARY | 2024-12-22 21:13 | XMS_ITS | Encounter Summary ---
Author Organization [employer] Address 75 [facility] 7t [place] [address] Care Team Providers Care Field Irrigation Worker Name Role Phone Amy Pickett MD Primary Care Pro vider Encounter Details Date Type Department Care Team ([facility] st Contact Info) Description 09/01/2024 Telephone [facility] MEDICINE [address] [place], [place] [phone] Amy Pickett MD [address] [place], [place] [phone] Social History Tobacco Use Types Packs/Day Years [...] Care Team (Late st Contact Info) Description 12/28/2024 9:45 AM EDT Office Visit [facility] MEDICINE [address] [place] [address] 02/10/2025 9:30 AM EDT Office Visit [facility]INE [address] [place] [phone] Amy Pickett MD [address] [place] [address] documented as of this encounter Visit Diagnoses Not on filedocumented in this encounter Additional Health Concerns Assessment Noted Time PHQ-9 Depression Total Score: 10 024 9:41 AM EDT documented as of this encounter Care Teams Field Irrigation Worker Relationship Specialty Start Date End Date Amy Pickett MD [address] [place] [address] PCP - General Internal Medicine 04/07/23 documented as of this encounter
== END ==
LOC: HO.SL 19:30
PROVIDERS: PCP Student in an Organized Health Care Education/Training Program; Visit Provider Hospitalist
DX: G47.33 Obstructive sleep apnea (adult) (pediatric) (principal)
CPT/HCPCS: 95810; 95811

== ENCOUNTER → 2024-12-22 21:27 | Outpatient (BNV) | payer OTHER, SELFPAY | PROVIDERS: PCP Student in an Organized Health Care Education/Training Program; Visit Provider Internal Medicine | DX: G47.33 Obstructive sleep apnea (adult) (pediatric) (principal) | CPT/HCPCS: 95810 ==

== ENCOUNTER 2025-01-25 11:19 | Outpatient (REF) | payer OTHER, SELFPAY ==
--- OUTSIDE RECORDS SUMMARY | 2025-01-25 12:35 | XMS_ITS | Encounter Summary ---
Author Organization [employer] Address 75 [facility] 7t [place] [address] Care Team Providers Care Steel Erecting Pusher Name Role Phone Amy Pickett MD Primary Care Pro vider Encounter Details Date Type Department Care Team ([facility] st Contact Info) Description 09/01/2024 Telephone [facility]INE [address] [place], [place] [phone] Amy Pickett MD [address] [place], [place] [phone] Social History Tobacco Use Types Packs/Day Years [...] Care Team (Late st Contact Info) Description 02/10/2025 9:30 AM EDT Office Visit [facility] MEDICINE [address] [place] [phone] Amy Pickett MD [address] [place] [address] 03/01/2025 9:45 AM EDT Office Visit [facility] [address] [place] [address] documented as of this encounter Visit Diagnoses Not on filedocumented in this encounter Additional Health Concerns Assessment Noted Time PHQ-9 Depression Total Score: 10 024 9:41 AM EDT documented as of this encounter Care Teams Steel Erecting Pusher Relationship Specialty Start Date End Date Amy Pickett MD [address] [place] [address] PCP - General Internal Medicine 04/07/23 documented as of this encounter
--- OUTSIDE RECORDS SUMMARY | 2025-01-25 12:35 | XMS_ITS | Clinical Summary ---
Author Organization [employer] [facility] it Address [address] [place] [address] Care Team Providers Care Advance Agent Name Role Phone Ba Maria MD Primary Care Provider Surgical History Surgery Date Site/Laterality Comments FOOT SURGERY PROCEDURE: [place] UNLISTED PROCEDURE FOOT/TOES; COMMENT: left foot bunion removal LIPOMA RESECTION PROCEDURE: SKIN TISSUE EXCISION(LIPOMA) OTHER SURGICAL HISTORY PROCEDURE: ---- OTHER ----; COMMENT: urethral surgeries done? three times in [facility] for difficulty urinating Medical History Medical History Date Comments Chronic back pain DX:Chronic alonso k pain Asthma DX:Asthma Anxiety DX:Anxiety; COMM ENT: follows at [facility] Family History Medical History Relation Name [...] Panel) 06/09/2022 Colorectal Cancer Screening: Colonoscopy 06/09/2022 HIV Screening 06/09/2022 Hepatitis C Screening 06/09/2022 Social Influencers of Health Screening 06/09/2022 DTaP,Tdap,and Td Vaccines (2 - Td or Tdap) 10/27/2022 10/27/2012 COVID-19 Vaccine (1 - season) 2024 Depression Screening 07/07/2024 Influenza Vaccine (#1) 2025 0, 08/10/2019, 03/23/2019, Additional history exists MMR [...] age to complete this topic Care Teams Advance Agent Relationship Specialty Start Date End Date Ba Maria MD PCP - General Internal Medicine 10/26/12
--- OUTSIDE RECORDS SUMMARY | 2025-01-25 12:36 | XMS_ITS | Clinical Summary ---
Author Organization [facility] Facility Address [address] [place] [address] Care Team Providers Care Parachute Panel Joiner Name Role Phone Donna Harmon MD Primary [...] Cancer Screening: Sigmoidoscopy 12/23/2016 Influenza Vaccine (#1) 2025 Insurance [facility] [place]ES [id number] Care Teams Parachute Panel Joiner Relationship Specialty Start Date End Date Donna Harmon MD PCP - General 05/11/19
== END 2025-01-25 11:20 | disposition home or self-care (01) ==
LOC: HO.HHCLNP 11:19
PROVIDERS: Visit Provider Student in an Organized Health Care Education/Training Program
DX: G89.29 Other chronic pain (principal); M54.50 Low back pain, unspecified
CPT/HCPCS: 36415; 80353

== ENCOUNTER 2025-01-27 11:44 | Emergency (ER) | payer OTHER, SELFPAY ==
--- NOTE | ~2025-01-27 | XR_ITS ---
EXAMINATION: XR WRIST, RIGHT CLINICAL INFORMATION: pain COMPARISON: None available. TECHNIQUE: PA, lateral, and oblique views of the right wrist. Scaphoid view. FINDINGS: No acute cortical disruption. No gross malalignment. No lytic or blastic lesions. No subcutaneous emphysema. No metallic or radiopaque foreign body. XR/XR wrist RT min 3V IMPRESSION: No acute fracture or dislocation. Electronically signed by: Tyler Cortez MD 01/27/2025 12:23 PM EDT
--- NOTE | ~2025-01-27 | XR_ITS ---
EXAMINATION: XR SHOULDER, RIGHT CLINICAL INFORMATION: pain COMPARISON: November 22, 2024. TECHNIQUE: AP external rotation, Grashey, scapular Y, and axillary views of the right shoulder. FINDINGS: Degenerative changes in the acromioclavicular joint and the greater tuberosity of the humerus. No acute cortical disruption or malalignment. No lytic or blastic lesions. Metallic hardware in the lower cervical spine no fully included in the [id number]. Calcified plaque in the thoracic aortic arch. XR/XR shoulder RT min 2V IMPRESSION: Mild degenerative changes without acute fracture or dislocation. Electronically signed by: Tyler Cortez MD 01/27/2025 12:22 PM EDT
--- NOTE | ~2025-01-27 | XR_ITS ---
EXAMINATION: XR ELBOW, RIGHT CLINICAL INFORMATION: pain COMPARISON: November 22, 2024. TECHNIQUE: AP, lateral, and oblique views of the right elbow. FINDINGS: No acute cortical disruption or malalignment. No lytic or blastic lesions. No joint effusion. No metallic or radiopaque foreign body. No subcutaneous emphysema. XR/XR elbow RT 2V IMPRESSION: No acute fracture or dislocation. Electronically signed by: Tyler Cortez MD 01/27/2025 12:23 PM EDT
[2025-01-27 11:49] VITALS: BP 152/103; PULSE 84; RESP 18; TEMP 36.2; O2SAT 96; BMI 30.3
--- NOTE | 2025-01-27 11:49 | ED.UPPEXIN ---
HPI - Extremity Injury (Upper) General Chief Complaint: Extremity Injury, Upper Stated Complaint: r shoulder pain Time Seen by Provider: 01/27/25 12:03 Source: patient, RN notes reviewed and old records reviewed Mode of arrival: ambulatory Limitations: no limitations History of Present Illness ED Provider: Savi HPI narrative: 59-year-old male past medical history significant for chronic pain syndrome, neurogenic bladder, GERD, IBS, sleep apnea, COPD presenting for evaluation of right shoulder pain. Patient reports that he had a fall a couple of months ago and was seen in his hospital. He landed on his right shoulder from 3 steps above the ground. He reports having had negative x-rays. He has seen orthopedics and is due to have an MRI at the end of next month. He takes oxycodone 15 mg every 4 hours for his pain which she believes is not helping He also has pain in his neck that radiates up into his head. He reports a previous C7 fracture but did not require surgery He reports he is not sleeping due to the pain. Denies any fevers or chills, denies any recent falls since the fall 2 months ago Related Data Home Medications ?Medication ?Instructions ?Recorded ?Confirmed cholecalciferol (vitamin D3) 50 50 mcg PO DAILY 05/22/20 09/29/24 mcg (2,000 unit) capsule fluticasone propionate 220 1 puff inhalation BID 05/22/20 09/29/24 mcg/actuation HFA aerosol inhaler (Flovent HFA) oxycodone 15 mg tablet 15 mg PO Q6H 05/22/20 09/29/24 albuterol sulfate 2.5 mg/3 mL 1 vial inhalation QID 07/19/20 09/29/24 (0.083 %) solution for nebulization multivitamin (Daily-Petra tablet) 1 tab PO DAILY 07/19/20 09/29/24 divalproex 500 mg tablet,delayed 1,000 mg PO BID 08/29/21 09/29/24 release fluoxetine 20 mg capsule 20 mg PO DAILY 08/29/21 09/29/24 alprazolam 1 mg tablet 1 mg PO BID PRN Anxiety 10/08/21 09/29/24 escitalopram oxalate 20 mg tablet 20 mg PO QAM 06/26/22 09/29/24 magnesium oxide 400 mg (241.3 mg 400 mg PO DAILY 06/26/22 09/29/24 magnesium) tablet lisinopril 5 mg tablet 10 mg PO BID 07/17/22 09/29/24 nebulizers 08/29/22 09/29/24 atorvastatin 40 mg tablet 40 mg PO DAILY 10/15/24 clopidogrel 75 mg tablet 75 mg PO DAILY 10/15/24 clotrimazole 1 % topical cream appl topical DAILY 10/15/24 cyanocobalamin (vitamin B-12) 1,000 mcg PO DAILY 10/15/24 1,000 mcg tablet hydroxyzine HCl 10 mg tablet 10 mg PO BID 10/15/24 loratadine 10 mg tablet 10 mg PO DAILY 10/15/24 olmesartan 20 mg tablet 20 mg PO DAILY 10/15/24 rimegepant 75 mg disintegrating 75 mg PO DAILY PRN 10/15/24 tablet (Nurtec ODT) Previous Rx's ?Medication ?Instructions ?Recorded tamsulosin 0.4 mg capsule 0.4 mg PO DAILY 30 days #30 caps 06/26/22 sumatriptan succinate 100 mg 100 mg PO .COMPLEX #14 tabs 03/20/23 tablet (Imitrex) cyclobenzaprine 5 mg tablet 5 mg PO BEDTIME PRN muscle spasm 10/01/23 #7 tabs [id number] 1 cap PO QID 30 days #120 caps 10/29/23 24,000-76,000-120,000 unit capsule,delayed rel (Creon) fluticasone fur. 200 mcg-umeclid 1 inh inhalation DAILY 30 days #60 04/28/24 62.5 mcg-vilant 25 mcg ea inhalat.powder (Trelegy Ellipta) ipratropium 20 mcg-albuterol 100 1 puff inhalation QID 30 days #4 07/12/24 mcg/actuation mist for inhalation grams (Combivent Respimat) budesonide 0.5 mg/2 mL suspension 0.5 mg (2 mL) inhalation BID 30 10/14/24 for nebulization days #120 mL doxycycline hyclate 100 mg capsule 100 mg PO BID 10 days #20 caps 10/14/24 ipratropium 0.5 mg-albuterol 3 mg 3 ml inhalation BID 30 days #180 mL 10/14/24 (2.5 mg base)/3 mL nebulization soln nicotine 21 mg/24 hr daily 1 patch transdermal DAILY 28 days 10/14/24 transdermal patch #28 ea prednisone 20 mg tablet See Rx Instructions PO DAILY 10 10/14/24 days #15 tabs dexlansoprazole 60 mg 60 mg PO DAILY #90 caps 10/15/24 capsule,biphase delayed release dicyclomine 20 mg tablet 20 mg PO QID 30 days #120 tabs 10/15/24 famotidine 40 mg tablet 40 mg PO BEDTIME #90 tabs 10/15/24 amoxicillin 875 mg-potassium 1 tab PO BID 10 days #20 tabs 10/26/24 clavulanate 125 mg tablet prednisone 10 mg tablet See Rx Instructions PO DAILY 18 10/26/24 days #63 tabs ondansetron HCl 4 mg tablet 4 mg PO BID PRN for 11/22/24 nausea/vomiting #60 tabs cyclobenzaprine 10 mg tablet 10 mg PO TID PRN muscle spasm #20 01/27/25 tabs prednisone 20 mg tablet 40 mg (2 x 20 mg) PO DAILY #10 tabs 01/27/25 Allergies Allergy/AdvReac Type Severity Reaction Status Date / Time cat dander (CATS) Allergy Unknown UNKNOWN Verified 01/27/25 11:51 dog dander (DOGS) Allergy Unknown UNKNOWN Verified 01/27/25 11:51 pollen extracts (POLLEN) Allergy Unknown UNKNOWN Verified 01/27/25 11:51 tree and shrub pollen Allergy sneeze Verified 01/27/25 11:51 ibuprofen AdvReac causes Verified 01/27/25 11:51 stomach to bleed Review of Systems Constitutional: Constitutional: Denies body ache(s), Denies chills and Denies headache(s) Eyes: Eyes: Denies blurry vision ENT: Denies dizziness, Denies headache(s) and Reports neck pain Cardiovascular: Cardiovascular: Denies chest pain and Denies dyspnea on exertion Respiratory: Respiratory: Denies cough and Denies dyspnea on exertion Gastrointestinal: Gastrointestinal: Denies abdominal pain, Denies nausea and Denies vomiting Musculoskeletal: Musculoskeletal: Reports arthralgias, Denies joint swelling, Denies limited range of motion, Reports neck pain, Reports radiating pain into limb and Reports stiffness Neurologic: Denies dizziness and Denies headache(s) Psychiatric: Psychiatric: Denies anxiety PMFSH Past Medical History Medical History Chest pain Nicotine dependence, cigarettes, uncomplicated Nausea and vomiting Dyspnea Photophobia Headache Syncope Dysphagia Seizure Lipoma of back STEPHON (obstructive sleep apnea) COPD (chronic obstructive pulmonary disease) Post herpetic neuralgia Multiple lipomas Osteoarthritis Gout History of peptic ulcer disease Hx of irritable bowel syndrome Chronic back pain Hx of insomnia History of panic attacks History of anxiety History of depression Asthma High cholesterol Hypertension Urinary retention Enlarged prostate Arthritis Slow urinary stream Marijuana use Alcohol abuse H/O ulcer disease Left flank pain Trochanteric bursitis, left hip Epidermal cyst Abdominal wall bulge Esophageal dysphagia Esophageal spasm Short frenulum of penis Balanitis Elevated blood pressure reading in office with diagnosis of hypertension Thalamic pain syndrome Abnormal loss of weight Painful orthopaedic hardware Pain in unspecified toe(s) Incisional pain Surgical History S/P placement of nerve stimulator H/O neck surgery Hx of arthroscopy of left knee H/O breast surgery S/P excision of lipoma History of bunionectomy History of cystoscopy History of colonoscopy History of esophagogastroduodenoscopy (EGD) Family History Family History Family/Other Cancer Diabetes AIDS Brother Diabetes Myocardial infarction Father Enlarged prostate Mother Diabetes Asthma Social History Social History Are you a primary occasional caregiver to a significant other at home: No Do you presently have visiting nurse or other home services: No Alcohol intake: never Patient Tobacco Use Status: Current everyday Tobacco user Cigarettes Per Day: 4 Years Smoked: (onset 16yo, 1ppd x 42yrs, now 1/2ppd - 40pyh) Substance Use Type: Marijuana Advance Directives: No Advance Directives Information Provided: Yes Do you have a plan to hurt others: No Plan service: No Current occupational status: unemployed Physical Exam Vital Signs: Vital Signs: Last Vital Signs Temp 97.1 F 01/27/25 11:49 Pulse 84 01/27/25 11:49 Resp 18 01/27/25 11:49 BP 152/103 H 01/27/25 11:49 Pulse Ox 96 01/27/25 11:49 BMI result Body Mass Index 30.3 Const: General: healthy appearing, comfortable, no acute distress, alert and awake Nutritional Appearance: well nourished Orientation/consciousness: patient oriented x3 HEENT: Head: Yes normocephalic and Yes atraumatic Eyes: Eyelids: Yes eyelids normal Conjunctivae: conjunctivae normal Sclerae: sclerae normal Corneas: corneas normal Pupils: Equal, round and reactive pupils present EOM: EOMs intact bilaterally Neck: Neck: Yes full ROM Resp: Effort & Inspection: normal respiratory effort, able to speak in complete sentences and not labored GI: Inspection: No distended Palpation (GI): Soft to palpation, not firm, nontender, no guarding and not rigid Back/Spine/Pelvis: Other: No C-spine tenderness Skin: General skin exam: elasticity normal Neuro: General: patient oriented x3 Cranial nerves: Yes Equal, round and reactive pupils present and Yes Bilaterally intact EOM present Cognition (Neuro): normal cognition Extrem: Other: Tender to the right trapezius muscle pain right posterior shoulder. There was no acromioclavicular joint tenderness. The patient has limited range of motion with ab duction of the right upper extremity. Fire Extinguisher Installer strength is 5/5 bilaterally. Soft tissue mass on the ventral surface of the right wrist, about 2 cm in diameter, well-circumscribed, nontender, no overlying erythema. Course Course Course Narrative: This is an RME: Additional HPI, ROS, PE not included below will be deferred to primary provider. RME assessment and note performed by: Ailyn Wells PA-C This is a 72-[id number]-male who presents to the ER with complaints of right shoulder pain. Patient was seen here at the end of November after he stepped off a ladder and lost his balance landing onto his right side. At that time he had an x-ray which was reviewed as normal. He has been in the sling since. He does report that he does take his arm out of the sling multiple times per day. He has followed up with [facility] however states that he is unable to get an MRI into the end of February as he has a bladder stimulator which needs to be turned off during the MRI. He has been taking oxycodone which has prescribed to him by his primary care physician. Patient with diffuse tenderness throughout the shoulder, right elbow. He also has a lump on the distal radius, unclear where this came from. Extremely limited range of motion. Plan: X-rays, further ER evaluation needed. Medical Decision Making Medical Decision Making [facility] Narrative: 59-year-old male with past medical history as above presents for evaluation of acute on chronic right shoulder pain. He has already follow up with Orthopedics in his due to have an MRI next month. X-rays were ordered of the right shoulder, wrist, elbow with showed degenerative changes but no obvious fracture or malalignment. There was no evidence of infectious process. The patient does have a soft tissue mass in his likely a ganglion cyst which I discussed with him. We will treat the patient's pain with 1 time dose of Toradol 15 mg IM. He does have an adverse reaction do previous GI bleeding. Discussed risks and benefits and he is open to receiving a 1 time dose of insulin. We will discharge the patient with cyclobenzaprine and prednisone. He will continue his home oxycodone Differential Diagnosis Differential Diagnoses: The differential diagnosis associated with the presentation includes Acute on chronic pain Osteoarthritis Adhesive capsulitis Rotator cuff injury Cervical strain Radiculopathy Radiology Impression Discussion of test interpretation with radiology: I have reviewed the radiologist's reading. Radiologist Impression: FINDINGS: Degenerative changes in the acromioclavicular joint and the greater tuberosity of the humerus. No acute cortical disruption or malalignment. No lytic or blastic lesions. Metallic hardware in the lower cervical spine no fully included in the [id number]. Calcified plaque in the thoracic aortic arch. XR/XR shoulder RT min 2V IMPRESSION: Mild degenerative changes without acute fracture or dislocation. Electronically signed by: Tyler Cortez MD 01/27/2025 12:22 PM EDT RP FINDINGS: No acute cortical disruption or malalignment. No lytic or blastic lesions. No joint effusion. No metallic or radiopaque foreign body. No subcutaneous emphysema. XR/XR elbow RT 2V IMPRESSION: No acute fracture or dislocation. Electronically signed by: Tyler Cortez MD 01/27/2025 12:23 PM EDT RP FINDINGS: No acute cortical disruption. No gross malalignment. No lytic or blastic lesions. No subcutaneous emphysema. No metallic or radiopaque foreign body. XR/XR wrist RT min 3V IMPRESSION: No acute fracture or dislocation. Electronically signed by: Tyler Cortez MD 01/27/2025 12:23 PM EDT Discharge Plan Discharge Clinical Impression: Chronic pain in right shoulder Patient Disposition: Home, Self-Care Instructions: Arthralgia (ED) Additional Instructions: Your x-rays do not show any findings to explain your pain. I think your symptoms are likely multifactorial. You likely have a pinched nerve in your neck as well as shoulder issues. Follow up with your MRI as planned. You may take prednisone 40 mg daily for the next 5 days. Use cyclobenzaprine as needed for muscle spasms This may make you drowsy, do not drink alcohol or drive after taking Prescriptions: New cyclobenzaprine 10 mg tablet 10 mg PO TID PRN (Reason: muscle spasm) Qty: 20 0RF prednisone 20 mg tablet 40 mg PO DAILY Qty: 10 0RF No Action sumatriptan succinate [Imitrex] 100 mg tablet 100 mg PO .COMPLEX Qty: 14 3RF Rx Instructions: 100 mg orally; amoxicillin-pot clavulanate 875-125 mg tablet 1 tab PO BID 10 Days Qty: 20 0RF prednisone 10 mg tablet See Rx Instructions PO DAILY 18 Days Qty: 63 0RF Rx Instructions: PO daily; Take 6 tabs daily x 3 days, then 5 tabs x 3 days, then 4 tabs x 3 days, then 3 tabs x 3 days, then 2 tabs daily x 3 days, then 1 tab x 3 days to complete. ondansetron HCl 4 mg tablet 4 mg PO BID PRN (Reason: for nausea/vomiting) Qty: 60 0RF multivitamin [Daily-Petra] Tablet 1 tab PO DAILY albuterol sulfate 2.5 mg /3 mL (0.083 %) solution for nebulization 1 vial inhalation QID alprazolam 1 mg tablet 1 mg PO BID PRN (Reason: Anxiety) lisinopril 5 mg tablet 10 mg PO BID cyclobenzaprine 5 mg tablet 5 mg PO BEDTIME PRN (Reason: muscle spasm) Qty: 7 0RF oxycodone 15 mg tablet 15 mg PO Q6H cholecalciferol (vitamin D3) 50 mcg (2,000 unit) capsule 50 mcg PO DAILY Flovent HFA 220 mcg/actuation HFA aerosol inhaler 1 puff inhalation BID fluoxetine 20 mg capsule 20 mg PO DAILY divalproex 500 mg tablet,delayed release (DR/EC) 1,000 mg PO BID magnesium oxide 400 mg (241.3 mg magnesium) tablet 400 mg PO DAILY escitalopram oxalate 20 mg tablet 20 mg PO QAM tamsulosin 0.4 mg capsule 0.4 mg PO DAILY 30 Days Qty: 30 3RF (DME) nebulizers Misc See Rx Instructions .Route Rx Instructions: As directed Trelegy Ellipta 200-62.5-25 mcg blister with device 1 inh inhalation DAILY 30 Days Qty: 60 12RF Combivent Respimat 20-100 mcg/actuation mist 1 puff inhalation QID 30 Days Qty: 4 11RF olmesartan 20 mg tablet 20 mg PO DAILY clotrimazole 1 % cream topical DAILY hydroxyzine HCl 10 mg tablet 10 mg PO BID atorvastatin 40 mg tablet 40 mg PO DAILY cyanocobalamin (vitamin B-12) 1,000 mcg tablet 1,000 mcg PO DAILY Nurtec ODT 75 mg tablet,disintegrating 75 mg PO DAILY PRN clopidogrel 75 mg tablet 75 mg PO DAILY loratadine 10 mg tablet 10 mg PO DAILY dexlansoprazole 60 mg capsule,biphase delayed releas 60 mg PO DAILY Qty: 90 1RF famotidine 40 mg tablet 40 mg PO BEDTIME Qty: 90 2RF dicyclomine 20 mg tablet 20 mg PO QID 30 Days Qty: 120 6RF Creon 24,000-76,000 -120,000 unit capsule,delayed release(DR/EC) 1 cap PO QID 30 Days Qty: 120 6RF Rx Instructions: administer with meals and/or snacks nicotine 21 mg/24 hr patch 24 hour 1 patch transdermal DAILY 28 Days Qty: 28 4RF prednisone 20 mg tablet See Rx Instructions PO DAILY 10 Days Qty: 15 0RF Rx Instructions: PO daily; Take 2 tabs daily x 5 days, then 1 tablet daily x 5 days doxycycline hyclate 100 mg capsule 100 mg PO BID 10 Days Qty: 20 0RF ipratropium-albuterol 0.5 mg-3 mg(2.5 mg base)/3 mL solution for nebulization 3 ml inhalation BID 30 Days Qty: 180 11RF budesonide 0.5 mg/2 mL suspension for nebulization 0.5 mg inhalation BID 30 Days Qty: 120 11RF Referrals: [facility] [Provider Group, Pain Management] Referral Note: chronic right shoulder pain Print Language: Vincentian
--- OUTSIDE RECORDS SUMMARY | 2025-01-27 13:07 | XMS_ITS | Clinical Summary ---
Author Organization [facility] Facility Address [address] [place] [address] Care Team Providers Care Deputy Juvenile Officer Name Role Phone Donna Harmon MD Primary [...] Sigmoidoscopy 12/23/2016 Influenza Vaccine (#1) 2025 Insurance [facility] RUBEN JAIMES [id number] Care Teams Deputy Juvenile Officer Relationship Specialty Start Date End Date Donna Harmon MD PCP - General 05/11/19
--- OUTSIDE RECORDS SUMMARY | 2025-01-27 13:07 | XMS_ITS | Clinical Summary ---
Author Organization [employer] [facility] it Address [address] [place] [address] Care Team Providers Care Pipe Jeeper Name Role Phone Ba Maria MD Primary Care Provider Surgical History Surgery Date Site/Laterality Comments FOOT SURGERY PROCEDURE: [place] UNLISTED PROCEDURE FOOT/TOES; COMMENT: left foot bunion removal LIPOMA RESECTION PROCEDURE: SKIN TISSUE EXCISION(LIPOMA) OTHER SURGICAL HISTORY PROCEDURE: ---- OTHER ----; COMMENT: urethral surgeries done? three times in [facility] for difficulty urinating Medical History Medical History Date Comments Chronic back pain DX:Chronic alonso k pain Asthma DX:Asthma Anxiety DX:Anxiety; COMM ENT: follows at [facility] psychiat[facility] Family History Medical History Relation Name [...] age to complete this topic Care Teams Pipe Jeeper Relationship Specialty Start Date End Date Ba Maria MD PCP - General Internal Medicine 10/26/12
--- OUTSIDE RECORDS SUMMARY | 2025-01-27 13:07 | XMS_ITS | Encounter Summary ---
Author Organization [employer] Address [address] [place] [address] Care Team Providers Care Rail Loader Name Role Phone Amy Pickett MD Primary Care Pro vider Encounter Details Date Type Department Care Team ([facility] st Contact Info) Description 09/01/2024 Telephone [facility] [address], [place] [phone] Amy Pickett MD [address], [place] [phone] Social History Tobacco Use Types Packs/Day Years [...] Description 02/10/2025 9:30 AM EDT Office Visit [facility] [address] [place] [id number] Amy Pickett MD [address] [place] [phone] 03/01/2025 9:45 AM EDT Office Visit [facility] [address] [place] [phone] documented as of this encounter Visit Diagnoses Not on filedocumented in this encounter Additional Health Concerns Assessment Noted Time PHQ-9 Depression Total Score: 10 024 9:41 AM EDT documented as of this encounter Care Teams Rail Loader Relationship Specialty Start Date End Date Amy Pickett MD [address] [place] [id number] PCP - General Internal Medicine 04/07/23 documented as of this encounter
[2025-01-27 14:04] VITALS: BP 150/65; PULSE 84; RESP 18; TEMP 36.2; O2SAT 96
== END 2025-01-27 14:05 | disposition home or self-care (01) ==
PROVIDERS: Emergency Provider Emergency Medicine; PCP Student in an Organized Health Care Education/Training Program
DX: M25.511 Pain in right shoulder (principal); G89.4 Chronic pain syndrome; G47.30 Sleep apnea, unspecified; Z72.0 Tobacco use
CPT/HCPCS: 73030; 73070; 73110; 96372; 99283; 99284; J1885

== ENCOUNTER → 2025-01-27 11:55 | Outpatient (BNV) | payer OTHER, SELFPAY | PROVIDERS: PCP Student in an Organized Health Care Education/Training Program; Visit Provider Radiology Diagnostic Radiology | DX: M25.511 Pain in right shoulder (principal); M25.531 Pain in right wrist; M25.521 Pain in right elbow | CPT/HCPCS: 73030; 73070; 73110 ==

== ENCOUNTER 2025-03-01 13:36 | Outpatient (REF) | payer OTHER, SELFPAY ==
--- OUTSIDE RECORDS SUMMARY | 2025-03-01 09:10 | XMS_ITS | Encounter Summary ---
Author Organization [employer] Address [address] [place] [address] Care Team Providers Care Plane Captain Name Role Phone Amy Pickett MD Primary Care Pro vider Reason for Visit * Reason Comments BAG PRESSER Encounter Details Date Type Department Care Team (Latest Contact Info) Description 03/01/2025 9:10 AM EDT Clinical Support [facility] [address] [place] [address] 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 RN [address] [place] [address] intermediate frame tender 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 Social History [...] Answer Date Recorded Patient Health Questionnaire-9 Score 0 11/24/2024 Patient Health Questionnaire-9 Score 0 11/24/2024 Last PHQ-9: Questionnaire Data Not on file 0 11/24/2024 Housing Stability Answer Date Recorded What is [...] Answer Date Recorded Patient Health Questionnaire-2 Score 0 11/24/2024 Internet Access Answer Date Recorded Internet Access [...] Progress Notes * Holly Wills, KENDRA - 03/01/2025 9:45 AM EDT Subjective: Zain Lazcano is a 59 y.o. male w/ PMH depression, anxiety, panic attacks, HLD, HTN, COPD, gout,rheumatoid arthritis, asthma, STEPHON, and insomnia who presents to the office for - Chronic Pain Clinic Group visits. Initial Group visit: 09/16/23 Group Topic: Behavioral Health Presenter: Bridgette Shaerer, [facility] Team -used to see NS at [facility] # -per pt seen in 06/2024 states was seen but not recommended surgery --I called today [facility] NS today to reeval surgery option --They requested to have another cervical MRI -ordered today ---with result I can refer again back to [facility]LE[facility] Dan- I think with his neuropathic pain and last MRI neck findings should be reevaluated for surgical option, pt on mx meds for pain ,high opioids dose Chronic Pain History: Associated Diagnosis: R shoulder pain, cervical spondylosis Relevant Imaging: C spine MRI, MRI brain for R retrocochlear mass Current pharm tx: oxycodone 15mg every 6 hours as needed, Xanax 1mg TID, cyclobenzaprine Medication: States taking medication as prescribed. Specialists: Saw RUBEN Padilla at [facility] 11/17/23 for lower back radiculopathy Scheduled to see NSG Dr. Prieto at [facility] to discuss C spine fracture seen at [facility] 10/2023 CT/CT cervical spine wo IV con IMPRESSION: Acute appearing right C7 facet and pedicle fractures. C6-C7 disc herniation. Consider MRI follow-up, especially if there is clinical deficit/myelopathic symptoms.No acute intracranial pathology. From PCP documentation 11/24/24: -MRI cervical spine w/o contrast 12/2023 : Small disc herniation producing mild central stenosis at C6-C7 ,moderate to marked bilateral foraminal stenosis could result in C7 nerve root compression ,Small paramedian and posterolateral osteophytes at C5-C6 w/o evidence of stenosis or nerve root compression . -CT head w/o contrast 03/30/24There are mild dependent mastoid effusions.No acute intracranial pathology. -CT head/brain wo IV con 03/2024 There are mild dependent mastoid effusions. No acute intracranial pathology. 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 Problem List Items Addressed This Visit Mental Health senior care 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 Overview Dx: chronic neck, low back pain, LE claudication Rx: Oxycodone 15mg IR q 6 hours Last BAG PRESSER agreement: 09/28/24 Tier: 1 (monthly BAG PRESSER visits) Additional considerations: Alprazolam 1mg for anxiety Current Assessment & Plan Timeline: -previous positive utox for cocaine 11/2023 -09/28/24: Group - utox/pill count wnl -01/25/25: Group - Pill count as expected, Utox pos cocaine. Confirmatory testing sent. Relevant Orders Drug Monitoring, Cocaine Metabolite, Quantitative, Urine POCT ROBIN-14 Urine Drug Screen (Completed) Neuro Spondylosis of cervical spine - Primary Overview MRI cervical spine w/o contrast 12/2023 : Small disc herniation producing mild central stenosis at C6-C7 ,moderate to marked bilateral foraminal stenosis could result in C7 nerve root compression ,Small paramedian and posterolateral osteophytes at C5-C6 w/o evidence of stenosis or nerve root compression . Seen by Neurosurgery at [facility], note pending Referred to Pain Management November 2024 Current Assessment & Plan -Good engagement and participation with Group Medical Visit model -Encouraged multifactorial approach to pain control including pharm and non- pharm modalities -Pill count as expected, Utox pos cocaine. Confirmatory testing sent. See dimension mill worker. Relevant Orders Drug Monitoring, Cocaine Metabolite, Quantitative, Urine POCT ROBIN-14 Urine Drug Screen (Completed) Follow up: 1 month for Chronic Pain Group Visits. Follow up as scheduled with PCP, sooner as needed. * 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 RN - 03/01/2025 9:10 AM EDT SUBJECTIVE: Zain Lazcano is a 59 y.o. year old male who presents for BAG PRESSER Patient came in to the chronic pain group visit, but stated he has another appointment and can't stay for the group today. Preferred language for medical information: Bangladeshi Interpreted needed: No Zain Lazcano does report adherence to Oxycodone 15 mg, take 1 tablet every 6 hours PRN, last refilled 02/25/25. The patient last took Oxycodone on: 03/01/25 OBJECTIVE: BUREAU CHIEF checked: 03/01/2025 Pill count completed for Oxycodone , count today is 94 , anticipated count should be 94, this is asexpected. Last PCP visit: 02/10/25 Controlled substance agreement signed: Controlled Substance Agreement 10/13/2024 BAG PRESSER Tier: 1 Current Medications[1] Marijuana use: Yes , Marijuana card: Yes , Marijuana Acquired from: Dispensary Lab Results Component Value Date POCTHC Positive (A) 03/01/2025 POCCOCAINEUR Positive (A) 03/01/2025 POCOPIATEUR Negative 03/01/2025 DOAUR Negative 03/01/2025 POCAMPHETAMI Negative 03/01/2025 POCBENZODIUR Positive (A) 03/01/2025 POCBARBSCRN Negative 03/01/2025 POCMETHADOUR Negative 03/01/2025 POCBUPSCRN Negative 03/01/2025 POCTCAUR Positive (A) 03/01/2025 POCMDMAUR Negative 03/01/2025 POCOXYCODONE Positive (A) 03/01/2025 POCPHENCYCUR Negative 03/01/2025 PROPOXUR Negative 03/01/2025 FENTANYLURIN Negative 03/01/2025 Utox MAGGIE positive again, patient denies any cocaine use, will notify PCP. Sending out urine to the lab for MAGGIE confirmation. ASSESSMENT: Encounter Diagnosis Name Primary? intermediate frame tender 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 PLAN: Information on pain group given: Yes Information on acupuncture given: Previously discussed Narcan education provided: Previously discussed Narcan prescription: active Zain Lazcano will continue taking medication as prescribed and follow up at the next BAG PRESSER visit or sooner if needed. Zain Lazcano has verbalized understanding of care plan. No future appointments. 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 RN [1] Current Outpatient Medications: albuterol (2.5 MG/3ML) 0.083% nebulizer solution, TAKE 3 ML BY NEBULIZATION ROUTE EVERY 8 HOURS NEEDED FOR WHEEZING, Disp: 75 mL, Rfl: 3 ALPRAZolam (Xanax) 1 MG tablet, Take 1 mg by mouth if needed in the morning, at noon, and at bedtime for anxiety., Disp: , Rfl: atorvastatin (Lipitor) 80 MG tablet, TAKE 1 TABLET (80 MG) BY MOUTH IN THE MORNING, Disp: 90 tablet, Rfl: 0 Blood Pressure Monitor kit, 1 each 2 times daily., Disp: 1 kit, Rfl: 0 cholecalciferol VITAMIN D (Vitamin D-3) 50 MCG (2000 UT) capsule, TAKE 1 CAPSULE BY MOUTH EVERY DAY, Disp: 90 capsule, Rfl: 0 cilostazol (Pletal) 50 MG tablet, Take 50 mg by mouth., Disp: , Rfl: clopidogrel (Plavix) 75 MG tablet, Take 1 tablet by mouth., Disp: , Rfl: cyanocobalamin (Vitamin B-12) 1000 MCG tablet, TAKE 1 TABLET (1,000 MCG) BY MOUTH ONCE PER DAY., Disp: 90 tablet, Rfl: 0 cyclobenzaprine (Flexeril) 5 MG tablet, Take 1 tablet (5 mg) by mouth if needed at bedtime for muscle spasms., Disp: 30 tablet, Rfl: 0 divalproex (Depakote ER) 500 MG 24 hr tablet, Take 2 tablets by mouth every 12 (twelve) hours., Disp: , Rfl: escitalopram (Lexapro) 10 MG tablet, Take 1 tablet by mouth 1 (one) time each day., Disp: , Rfl: Famotidine (ZANTAC 360 PO), Take by mouth., Disp: , Rfl: gabapentin (Neurontin) 600 MG tablet, TAKE 1 TABLET BY MOUTH EVERYDAY AT BEDTIME, Disp: 30 tablet, Rfl: 2 ipratropium-albuterol (Combivent Respimat) 20-100 MCG/ACT inhaler, INHALE 2 PUFFS BY MOUTH EVERY 6 HOURS, Disp: 4 g, Rfl: 3 loratadine (Claritin) 10 MG tablet, TAKE 1 TABLET BY MOUTH EVERY DAY, Disp: 90 tablet, Rfl: 1 magnesium oxide (Mag-Ox) 400 MG tablet, one pill everyday, Disp: , Rfl: Multiple Vitamin (Multi-Vitamin) tablet, take 1 tablet by oral route every day with food, Disp: 30 tablet, Rfl: 11 naloxone (Narcan) 4 mg/0.1 mL nasal spray, Administer 1 spray (4 mg) into affected nostril(s) if needed for opioid reversal. May repeat every 2-3 minutes if needed, alternating nostrils, until medical assistance becomes available., Disp: 2 each, Rfl: 2 Nebulizers (Comp-Air Elite Compact Neb) [facility], , Disp: , Rfl: nicotine polacrilex (Commit) 4 MG lozenge, Dissolve 1 lozenge (4 mg) in the mouth every 2 (two) hours if needed for smoking cessation., Disp: 100 lozenge, Rfl: 3 Nystatin powder, 1 Application at noon and 1 Application in the evening., Disp: 1 each, Rfl: 0 olmesartan (Benicar) 40 MG tablet, Take 1 tablet (40 mg) by mouth Once per day., Disp: 90 tablet, Rfl: 0 ondansetron (Zofran) 4 MG tablet, Take 2 tablets (8 mg) by mouth every 8 (eight) hours if needed for nausea or vomiting., Disp: 60 tablet, Rfl: 1 oxyCODONE (Roxicodone) 15 MG immediate release tablet, Take 1 tablet (15 mg) by mouth every 6 (six)hours for 28 days., Disp: 112 tablet, Rfl: 0 pancrelipase, Asc-Vokh-Xels, (Creon) 2376-2939 units capsule, Take 1 capsule by mouth every 8 (eight) hours. Take 1 capsule by mouth 3 times every day with meals and 1 capsule with snack swallowing whole. Do not crush, chew or divide., Disp: 270 capsule, Rfl: 1 SUMAtriptan (Imitrex) 100 MG tablet, Take 1 tablet (100 mg) by mouth 1 (one) time if needed for migraine., Disp: 9 tablet, Rfl: 1 tamsulosin (Flomax) 0.4 MG 24 hr capsule, TAKE 1 CAPSULE (0.4 MG) BY MOUTH IN THE MORNING. EVERY DAY 1/2 HOUR FOLLOWING THE SAME MEAL EACH DAY, Disp: 90 capsule, Rfl: 0 Trelegy Ellipta 200-62.5-25 MCG/ACT aerosol powder , Inhale 1 puff Once per day., Disp: , Rfl: documented in this encounter Plan of Treatment Upcoming Encounters Date Type Department Care Team (Late st Contact Info) Description 03/29/2025 9:45 AM EDT Office Visit [facility] [address] [place] [address] Scheduled Orders Name Type Priority Associated Diagnoses Orde r Schedule Drug Monitoring, Cocaine Metabolite, Quantitative, Urine Lab Routine senior care 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 Ordered: 03/01/2025 documented as of this encounter Procedures Procedure Name Priority Date/Time Associated Diagnosis Comments POCT ROBIN-14 URINE DRUG SCREEN Routine 03/01/2025 10:10 AM EDT intermediate frame tender 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 documented in this encounter Results * (ABNORMAL) POCT ROBIN-14 Urine Drug Screen (03/01/2025 10:10 AM EDT) THC Positive(A) Negative Cocaine Screen, Urine Positive(A) Negative Opiate Screen, Urine Negative Negative Methamphetamine Screen Urine Negative Negative Amphetamine Screen, Urine Negative Negative Benzodiazepines Screen, Urine Positive(A) Negative Barbiturate Screen, Urine Negative Negative Methadone Screen, Urine Negative Negative Buprenophine Screen, Urine Negative Negative TCA, Urine Positive(A) Negative MDMA Urine Negative Negative ng/mL Oxycodone Screen, Urine Positive(A) Negative Phencyclidine (PCP), Urine Negative Negative Propoxyphene, Urine Negative Negative Fentanyl, Urine Negative Negative Urine Urine specimen obtained by clean catch procedure / Unknown 03/01/2025 10:10 AM EDT Narrative 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 RN - 03/01/2025 10:10 AM EDT .UTOX cup Lot#[id number] Exp. 04/12/26 Internal Pass Control Amy Berry MD POINT OF CARE SOHA T ENTER/EDIT ORDERABLES Final Result documented in this encounter Visit Diagnoses Diagnosis intermediate frame tender 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 documented in this encounter Additional Health Concerns Assessment Noted Time PHQ-9 Depression Total Score: 0 11/25/19 25 2:10 PM EDT documented as of this encounter Care Teams Plane Captain Relationship Specialty Start Date End Date Amy Pickett MD [address] [place] [phone] PCP - General Internal Medicine 04/07/23 documented as of this encounter
--- OUTSIDE RECORDS SUMMARY | 2025-03-01 14:36 | XMS_ITS | Encounter Summary ---
Author Organization [employer] Address [address] 7t [place] [address] Care Team Providers Care Bus Van Driver Name Role Phone Amy Pickett MD Primary Care Pro vider Encounter Details Date Type Department Care Team (Late st Contact Info) Description 06/24/2024 Orders Only [facility] MED[facility]INE [address] [place] [address] Provider, MD Bryan Social History Tobacco Use [...] Description 03/29/2025 9:45 AM EDT Office Visit [facility] [address] [place] [address] documented as of this encounter Procedures Procedure Name Priority Date/Time Associated Diagnosis Comments HM COLONOSCOPY Routine 01/06/2018 8:00 AM EDT documented in this encounter Results * Hm Colonoscopy (01/06/2018 8:00 AM EDT) us Historical Provider HEALTH MAINTENANCE Final Result documented in this encounter Visit Diagnoses Not on filedocumented in this encounter Additional Health Concerns Assessment Noted Time PHQ-9 Depression Total Score: 10 024 9:41 AM EDT documented as of this encounter Care Teams Bus Van Driver Relationship Specialty Start Date End Date Amy Pickett MD [address] [place] [address] PCP - General Internal Medicine 04/07/23 documented as of this encounter
--- OUTSIDE RECORDS SUMMARY | 2025-03-01 14:36 | XMS_ITS | Clinical Summary ---
Author Organization [employer] Address [address] [place] [address] Care Team Providers Care Commercial Green Retrofit Architect Name Role Phone Ba Maria MD Primary Care Provider Surgical History Surgery Date Site/Laterality Comments FOOT SURGERY PROCEDURE: CO UNLISTED PROCEDURE FOOT/TOES; COMMENT: left foot bunion removal LIPOMA RESECTION PROCEDURE: SKIN TISSUE EXCISION(LIPOMA) OTHER SURGICAL HISTORY PROCEDURE: ---- OTHER ----; COMMENT: urethral surgeries done? three times in [facility] for difficulty urinating Medical History Medical History Date Comments Chronic back pain DX:Chronic alonso k pain Asthma DX:Asthma Anxiety DX:Anxiety; COMM ENT: follows at [facility] Family History Medical History Relation [...] age to complete this topic Care Teams Commercial Green Retrofit Architect Relationship Specialty Start Date End Date Ba Maria MD PCP - General Internal Medicine 10/26/12
--- OUTSIDE RECORDS SUMMARY | 2025-03-01 14:36 | XMS_ITS | Encounter Summary ---
Author Organization [employer] Address [address] [place] [address] 7 [place] [address] Care Team Providers Care Masonry Installer Name Role Phone Amy Pickett MD Primary Care Pro vider Reason for Visit * Reason Onset Date Comments Change PCP 02/10/2025 TRANSFER REQUEST 02/10/2025 Encounter Details Date Type Department Care Team (Late st Contact Info) Description 02/10/2025 Telephone [facility] MEDICINE [address] [place], [place] [phone] Amy Pickett MD [address] [place], [place] [phone] Change PCP; TRANSFER REQUEST Social History Tobacco Use Types Packs/Day Years [...] the past 12 months, has t he [employer], gas, oil or water Spot formerly [employer] threatened to shut off services in your [...] encounter Miscellaneous Notes * Telephone Encounter - Michelle Kapoor RN - 02/25/2025 4:21 PM EDT Call returned to Patient at [phone] regarding Transfer Request. Voicemail left requesting a return call. Call placed to Rossana Fischer [facility] at [phone] as directed/ Authorized by Patient. Rossana reports Patient will no longer agree to see current PCP, states he has expressed his medical needs are not met and he does not get along with his current PCP. Patient does not have a preference in who to transfer to. Rossana informed plan will be to proceed with Transfer. She will make Patient aware thatthere is currently a wait period and that current PCP will still be assigned and able to operate asPCP until transfer appt is completed with a new Provider. Javascript Engineer to contact Patient with a Transfers Patient appt when one becomes available. Rossana verbalizes understanding and agreement with the plan of care. * Telephone Encounter - Anrdea Palacio - 02/24/2025 10:11 AM EDT Tc from pt requesting a call back regarding prior message Contact pt at [phone] if no answer call [phone] Rossana Fischer SPOUT WORKER * Telephone Encounter - Michelle Kapoor RN - 02/14/2025 1:11 PM EDT Call returned to Patient regarding Transfer Request. Voicemail left requesting a return call. * Telephone Encounter - Neetu Mckenzie - 02/10/2025 9:17 AM EDT Pt walked in stating he would like to switch pcp due to pt feeling like pcp is not helping with anything, pt states he waited 6 month to get this pcp and he is not happy with pcp, pt also stated he doesn't want it to be a big gap with his medication. documented in this encounter Plan of Treatment Upcoming Encounters Date Type Department Care Team (Late st Contact Info) Description 03/29/2025 9:45 AM EDT Office Visit [facility] MEDICINE [address] [place] [address] documented as of this encounter Visit Diagnoses Not on filedocumented in this encounter Additional Health Concerns Assessment Noted Time PHQ-9 Depression Total Score: 0 11/25/19 25 2:10 PM EDT documented as of this encounter Care Teams Masonry Installer Relationship Specialty Start Date End Date Amy Pickett MD [address] [place] [address] PCP - General Internal Medicine 04/07/23 documented as of this encounter
--- OUTSIDE RECORDS SUMMARY | 2025-03-01 14:36 | XMS_ITS | Encounter Summary ---
Author Organization [employer] Address [address] [place] [address] 7 [place] [address] Care Team Providers Care Clinical Data Associate Name Role Phone Amy Pickett MD Primary Care Pro vider Reason for Visit * Reason Onset Date Comments Appointment Request 10/05/2024 Encounter Details Date Type Department Care Team ([facility] st Contact Info) Description 10/05/2024 Telephone [facility] MEDICINE [address] [place], [place] [phone] Amy Pickett MD [address] [place] [address] Appointment Request Social History Tobacco Use Types [...] able to make it. Contact Isa at [phone] documented in this encounter Plan of Treatment Upcoming Encounters Date Type Department Care Team (Late st Contact Info) Description 03/29/2025 9:45 AM EDT Office Visit [facility] MEDICINE [address] [place] [address] documented as of this encounter Visit Diagnoses Not on filedocumented in this encounter Additional Health Concerns Assessment Noted Time PHQ-9 Depression Total Score: 10 024 9:41 AM EDT documented as of this encounter Care Teams Clinical Data Associate Relationship Specialty Start Date End Date Amy Pickett MD [address] [place] [address] PCP - General Internal Medicine 04/07/23 documented as of this encounter
--- OUTSIDE RECORDS SUMMARY | 2025-03-01 14:36 | XMS_ITS | Encounter Summary ---
Author Organization [employer] Address [address] [facility] 7t [place] [address] Care Team Providers Care Md Senior Research Scientist Name Role Phone Elise Glover ASSOCIATE TECHNICIAN Primary Care Provider Amy Ware MD Primary Care Pro vider Reason for Visit * Reason Comments Med Change Request Encounter Details Date Type Department Care Team (Late st Contact Info) Description 03/03/2023 Refill [facility] [address] [place] [phone] Elise Glover FNP Essential hypertension Social History Tobacco Use Types [...] Description 03/29/2025 9:45 AM EDT Office Visit [facility] MEDICINE [address] [place] [address] documented as of this encounter Visit Diagnoses Diagnosis Essential hypertension Unspecified essential hypertension documented in this encounter Additional Health Concerns Assessment Noted Time PHQ-9 Depression Total Score: 24 10/01/ 023 10:05 AM EDT documented as of this encounter Care Teams Md Senior Research Scientist Relationship Specialty Start Date End Date Elise Glover FNP PCP - General Family Medicine 07/09/22 04/06/23 Amy Pickett MD [address] [place] [id number] PCP - General Internal Medicine 04/07/23 documented as of this encounter
--- OUTSIDE RECORDS SUMMARY | 2025-03-01 14:36 | XMS_ITS | Encounter Summary ---
Author Organization [employer] Address [address] [facility] 7 [place] [address] Care Team Providers Care School Adjustment Counselor Name Role Phone Amy Pickett MD Primary Care Pro vider Reason for Visit * Reason Comments Med Refill Encounter Details Date Type Department Care Team ([facility] st Contact Info) Description 06/17/2024 Refill [facility] MEDICINE [address] [place], [place] [phone] Amy Pickett MD [address] [place] [address] Social History Tobacco Use Types Packs/Day Years [...] Description 03/29/2025 9:45 AM EDT Office Visit [facility] MEDICINE [address] [place] [address] documented as of this encounter Visit Diagnoses Not on filedocumented in this encounter Additional Health Concerns Assessment Noted Time PHQ-9 Depression Total Score: 10 024 9:41 AM EDT documented as of this encounter Care Teams School Adjustment Counselor Relationship Specialty Start Date End Date Amy Pickett MD [address] [place] [address] PCP - General Internal Medicine 04/07/23 documented as of this encounter
--- OUTSIDE RECORDS SUMMARY | 2025-03-01 14:36 | XMS_ITS | Encounter Summary ---
Author Organization [employer] Address [address] [facility] 7t [place] [address] Care Team Providers Care Pad Extractor Tender Name Role Phone Amy Pickett MD Primary Care Pro vider Encounter Details Date Type Department Care Team ([facility] st Contact Info) Description 09/01/2024 Telephone [facility] MEDICINE [address] [place], [place] [phone] Amy Pickett MD [address] [place], [place] [phone] Social History Tobacco Use Types Packs/Day Years [...] Description 03/29/2025 9:45 AM EDT Office Visit [facility] MEDICINE [address] [place] [phone] documented as of this encounter Visit Diagnoses Not on filedocumented in this encounter Additional Health Concerns Assessment Noted Time PHQ-9 Depression Total Score: 10 024 9:41 AM EDT documented as of this encounter Care Teams Pad Extractor Tender Relationship Specialty Start Date End Date Amy Pickett MD [address] [place] [id number] PCP - General Internal Medicine 04/07/23 documented as of this encounter
--- OUTSIDE RECORDS SUMMARY | 2025-03-01 14:36 | XMS_ITS | Encounter Summary ---
Author Organization [employer] Address [address] [facility] 7t [place] [address] Care Team Providers Care Paper Sorter And Counter Name Role Phone Amy Pickett MD Primary Care Pro vider Encounter Details Date Type Department Care Team ([facility] st Contact Info) Description 09/01/2024 Telephone [facility] MEDICINE [address] [place], [place] [phone] Amy Pickett MD [address] [place], [place] [phone] Social History Tobacco Use Types Packs/Day Years [...] Office Visit [facility] MEDICINE [address] [place] [phone] documented as of this encounter Visit Diagnoses Not on filedocumented in this encounter Additional Health Concerns Assessment Noted Time PHQ-9 Depression Total Score: 10 024 9:41 AM EDT documented as of this encounter Care Teams Paper Sorter And Counter Relationship Specialty Start Date End Date Amy Pickett MD [address] [place] [address] PCP - General Internal Medicine 04/07/23 documented as of this encounter
--- OUTSIDE RECORDS SUMMARY | 2025-03-01 14:36 | XMS_ITS | Encounter Summary ---
Author Organization [employer] Address [address] [facility] 7 [place] [address] Care Team Providers Care Advertising Photographer Name Role Phone Amy Pickett MD Primary Care Pro vider Reason for Visit * Reason Onset Date Comments Results 10/01/2024 Encounter Details Date Type Department Care Team ([facility] st Contact Info) Description 10/01/2024 Telephone [facility] [address] [place], [place] [phone] Amy Pickett MD [address] [place] [address] Results Social History Tobacco Use Types Packs/Day [...] Blood Test Date when done: 09/29/24 Facility: [facility] Contact pt at [phone] documented in this encounter Plan of Treatment Upcoming Encounters Date Type Department Care Team (Late st Contact Info) Description 03/29/2025 9:45 AM EDT Office Visit [facility] [address] [place] [address] documented as of this encounter Visit Diagnoses Not on filedocumented in this encounter Additional Health Concerns Assessment Noted Time PHQ-9 Depression Total Score: 10 024 9:41 AM EDT documented as of this encounter Care Teams Advertising Photographer Relationship Specialty Start Date End Date Amy Pickett MD [address] [place], [place] [phone] PCP - General Internal Medicine 04/07/23 documented as of this encounter
--- OUTSIDE RECORDS SUMMARY | 2025-03-01 14:36 | XMS_ITS | Clinical Summary ---
Author Organization [employer] Address [address] [place] [address] [address] [place] [address] Care Team Providers Care Fly Winder Name Role Phone Amy Pickett MD Primary [...] 022 Active Nebulizers (Comp-Air Elite Compact Neb) [facility] Active Blood Pressure [...] vomiting. 60 tablet 1 023 Active pancrelipase, Svt-Pbou-Wekf, (Creon) 9466-2842 units capsule Take 1 capsule by mouth [...] if needed for migraine. 9 tablet 1 024 Active cholecalciferol VITAMIN D (Vitamin D-3) 50 MCG (2000 UT) capsuleIndicati ons:Low vitamin D level TAKE 1 CAPSULE BY MOUTH EVERY DAY 90 capsule 024 Active Famotidine (ZANTAC 360 PO) Take by mouth. Active Nystatin powder 1 Application at noon and 1 Application in the evening. 1 each 024 Active loratadine (Claritin) 10 MG tablet TAKE 1 TABLET BY MOUTH EVERY DAY 90 tablet 1 024 Active albuterol (2.5 MG/3ML) 0.083% nebulizer solution TAKE 3 ML BY NEBULIZATION ROUTE EVERY 8 HOURS NEEDED FOR WHEEZING 75 mL 3 025 Active Trelegy Ellipta 200-62.5-25 MCG/ACT aerosol powder Inhale 1 puff Once per day. 025 Active cilostazol (Pletal) 50 MG tablet Take 50 mg by mouth. 024 Active clopidogrel (Plavix) 75 MG tablet Take 1 tablet by mouth. 025 Active gabapentin (Neurontin) 600 MG tabletIndicatio ns:Chronic low back pain, unspecified back pain laterality, unspecified whether sciatica present TAKE 1 TABLET BY MOUTH EVERYDAY AT BEDTIME 30 tablet 2 025 Active tamsulosin (Flomax) 0.4 MG 24 hr capsule TAKE 1 CAPSULE (0.4 MG) BY MOUTH IN THE MORNING. EVERY DAY 1/2 HOUR FOLLOWING THE SAME MEAL EACH DAY 90 capsule 025 Active ipratropium-alb uterol (Combivent Respimat) 20-100 MCG/ACT inhalerIndicati ons:Moderate persistent asthma without complication INHALE 2 PUFFS BY MOUTH EVERY 6 HOURS 4 g 3 06/20/2 025 Active cyanocobalamin (Vitamin B-12) 1000 MCG tablet TAKE 1 TABLET (1,000 MCG) BY MOUTH ONCE PER DAY. 90 tablet Active nicotine polacrilex (Commit) 4 MG lozenge Dissolve 1 lozenge (4 mg) in the mouth every 2 (two) hours if needed for smoking cessation. 100 lozenge 3 025 2024 Active olmesartan (Benicar) 40 MG tabletIndicatio ns:Essential hypertension Take 1 tablet (40 mg) by mouth Once per day. 90 tablet 025 2025 Active cyclobenzaprine (Flexeril) 5 MG tabletIndicatio ns:Cervical spondylosis without myelopathy Take 1 tablet (5 mg) by mouth if needed at bedtime for muscle spasms. 30 tablet 025 2024 Active atorvastatin (Lipitor) 80 MG tablet TAKE 1 TABLET (80 MG) BY MOUTH IN THE MORNING 90 tablet Active oxyCODONE (Roxicodone) 15 MG immediate release tabletIndicatio ns:SHELL MOLD BONDER checked 06/13/22 Take 1 tablet (15 mg) by mouth every 6 (six) hours for 28 days. 112 tablet 025 2024 Active naloxone (Narcan) 4 mg/0.1 mL nasal spray Administer 1 spray (4 mg) into affected nostril(s) if needed for opioid reversal. May repeat every 2-3 minutes if needed, alternating nostrils, until medical assistance becomes available. 2 each 2 025 2025 Active olmesartan (Benicar) 20 MG tabletIndicatio ns:Essential hypertension Take 1 tablet (20 mg) by mouth Once per day. 30 tablet 11 024 2024 Discontinued(R eorder (will not trigger notification to Pharmacy)) cyanocobalamin (Vitamin B-12) 1000 MCG tablet TAKE 1 TABLET (1,000 MCG) BY MOUTH ONCE PER DAY. 90 tablet 025 2024 Discontinued nicotine polacrilex (Commit) 4 MG lozenge Dissolve 1 lozenge (4 mg) in the mouth every 2 (two) hours if needed for smoking cessation. 100 lozenge 3 025 2024 Discontinued(R eorder (will not trigger notification to Pharmacy)) atorvastatin (Lipitor) 80 MG tablet Take 1 tablet (80 mg) by mouth in the morning. 90 tablet 025 2024 Discontinued clotrimazole (Lotrimin) 1 % cream APPLY TOPICALLY TWICE A DAY FOR 28 DAYS 30 g 025 2024 Discontinued oxyCODONE (Roxicodone) 15 MG immediate release tabletIndicatio ns:SHELL MOLD BONDER checked 06/13/22 Take 1 tablet (15 mg) by mouth every 6 (six) hours for 28 days. Do not start before January 23, 2025. 112 tablet 025 2024 Discontinued(R eorder (will not trigger notification to Pharmacy)) clotrimazole (Lotrimin) 1 % cream APPLY TOPICALLY TWICE A DAY FOR 28 DAYS 30 g 025 2024 Discontinued(O ther) predniSONE (Deltasone) 20 MG tablet Take 1 [...] recommended. -Supportive care advised. -Isolation recommendations discussed. 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 Confirmatory testing sent. Chronic obstructive pulmonar y disease, unspecified COPD type 05/16/2024 Overview (09/05/2024): Following with [facility] pulmonology-Dr. Maldonado Continue with Combivent inhaler Claudication of left lower extremity 05/16/2024 Vitamin B12 deficiency 05/16/2024 Left foot pain 03/13/2024 Urinary incontinence 03/13/2024 Dysphagia 03/13/2024 Health [...] Injections 11/2022 Encouraged stretching Will refer to [facility] Continue AED TRAINER at this time. Will perform random Utox [...] bladder 05/06/2018 Colitis 01/23/2018 Microscopic hematuria 12/03/2012 Spondylosis of cervical spine 11/06/2012 Overview (01/25/2025): MRI cervical spine w/o contrast 12/2023 : Small disc herniation producing mild central stenosis at C6-C7 ,moderate to marked bilateral foraminal stenosis could result in C7 nerve root compression ,Small paramedian and posterolateral osteophytes at C5-C6 w/o evidence of stenosis or nerve root compression . Seen by Neurosurgery at [facility], note pending Referred to Pain Management November 2024 Assessment & Plan (01/25/2025 1:44 PM EDT): -Good engagement and participation with Group Medical Visit model -Encouraged multifactorial approach to pain control including pharm and non- pharm modalities -Pill count as expected, Utox pos cocaine. Confirmatory testing sent. See [facility] wms consultant. Assessment & Plan (09/28/2024 2:02 PM EDT): [...] C7 fracture seen on CT scan at [facility] ER 10/28/23 He participated fully in [...] C7 fracture seen on CT scan at [facility] ER 10/28/23 He participated fully in [...] Injections 11/2022 Encouraged stretching Will refer to [facility] physical therapy Continue AED TRAINER at this time. Will perform random Utox [...] lumbar pain. Encouraged stretching Will refer to [facility] Continue AED TRAINER at this time. Will perform random Utox [...] Problem Noted Date Diagnosed Date Resolved Date Tinea pedis 03/13/2024 02/10/2025 Class 1 obesity 09/16/2023 01/27/2024 Abnormal urine odor 01/23/2018 10/02/19 23 Encounters * This document contains information received from the source organization and may not represent a complete record from that organization. Date Type Department Care Team Description 03/01/2025 9:10 AM EDT Clinical Support [facility] [address] [place] [phone] 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, DARIANA jail 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 03/01/2025 Telephone [facility] [address] [place] [address] 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, DARIANA 03/01/2025 Travel 02/24/2025 Refill [facility] [address] [place] [address] 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, spa receptionist pain of both knees; Chronic low back pain, unspecified back pain laterality, unspecified whether sciatica present 02/24/2025 Telephone [facility] [address] [place] [phone] Amy Pickett MD med 02/24/2025 Telephone [facility] [address] [place] [address] Amy Pickett MD Med Refill 02/19/2025 Refill [facility] [address] [place] [address] Amy Pickett MD 02/10/2025 9:30 AM EDT Office Visit [facility] [address] [place] [phone] Amy Pickett MD Cervical spondylosis without myelopathy (Primary Dx); Chronic migraine without aura without status migrainosus, not intractable; Essential hypertension; H/O lipoma; Mass of wrist, right; Claudication of left lower extremity ([facility]/HCC); Health care maintenance; Lipoma, unspecified site; 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; Chronic right shoulder pain; Spondylosis of cervical spine 02/10/2025 Telephone [facility] [address] [place] [phone] Amy Pickett MD Change PCP; TRANSFER REQUEST 02/10/2025 Travel 02/08/2025 Refill [facility] [address] [place] [phone] Amy Pickett MD 02/03/[address] [phone] Bri Noriega MD 02/01/[address] [phone] Amy Pickett MD Durable Medical Equipment 01/27/2025 Orders Only [facility] External Provider, [facility] 01/25/2025 9:45 AM EDT Office Visit [address] [phone] Holly Wills, CONTINUUM OF CARE MANAGER Spondylosis of cervical spine (Primary Dx); jail 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 01/25/2025 Telephone [facility] [address] [place] [address] 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 RN 01/25/2025 Travel 01/21/2025 Refill [facility] [address] [place] [phone] Amy Pickett MD Chronic pain of both knees; Chronic low back pain, unspecified back pain laterality, unspecified whether sciatica present 01/11/2025 Refill [facility] [address] [place] [phone] Brent Hanson MD 01/10/2025 Telephone [facility] [address] [place] [phone] Amy Pickett MD TP request 12/29/2024 Telephone [facility] [address] [place] [phone] Amy Pickett MD fyi 12/28/2024 9:00 AM EDT Clinical Support [facility] [address] [place] [phone] Danay Flaherty RN 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 (Primary Dx) 12/28/2024 Travel 2024 Refill [facility] [address] [place] [address] 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 RN Chronic pain of both knees; Chronic low back pain, unspecified back pain laterality, unspecified whether sciatica present 2024 Refill [facility] [address] [place] [phone] Amy Pickett MD Moderate persistent asthma without complication 2024 Telephone [facility] [address] [place] [phone] Amy Pickett MD Med Refill 12/19/2024 Refill [facility] [address] [place] [address] Chioma Mojica MD 12/16/2024 Telephone [facility] [address] [place] [address] 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 RN 12/04/2024 Refill [facility] [address] [place] [phone] Amy Pickett MD Chronic low back pain, unspecified back pain laterality, unspecified whether sciatica present from Last 3 Months Immunizations Immunization Administration [...] Sign Reading Time Taken Comments Blood Pressure 140/92 02/10/2025 9:30 AM EDT Pulse 87 02/10/2025 9:27 AM EDT Temperature 36.3 C (97.3 F) 02/10/2025 9:27 AM EDT Respiratory Rate 20 02/10/2025 9:27 AM EDT Oxygen Saturation 99% 02/10/2025 9:27 AM EDT Inhaled Oxygen Concentration - - Weight 80.1 kg (176 lb 9.6 oz) 02/10/2025 9:27 A M EDT Height 162.6 cm (5' 4 ) 02/10/2025 9:27 AM EDT Body Mass Index 30.31 02/10/2025 9:27 AM EDT Plan of Treatment Upcoming Encounters Date Type Department Care Team (Late st Contact Info) Description 03/29/2025 9:45 AM EDT Office Visit [facility] [address] [place] [address] Health Maintenance Due Date Last Done Comments CT Colonography 1967 FIT DNA/Cologuard 1967 FIT 1967 FOBT 1965 Sigmoidoscopy 1965 Hepatitis A Vaccines (1 of 2 - Risk 2-dose series) 12/23/1986 Influenza Vaccine (#1) 2025 , 03/19/2024, 04/08/2022, Additional history exists Alcohol/Substance Use Screening 11/24/2025 11/24/2024 Depression Screening 11/24/2025 11/24/2024, 11/25/19 25 Disability Screening 11/24/2025 11/24/2024 SDOH Screening 11/24/2025 11/24/2024 Tobacco Screening 02/10/2026 02/10/2025 DTaP/Tdap/Td Vaccines (3 - Td or Tdap) [...] Completed 04/02/2024, 09/2021, 10/28/2021, Additional history exists Zoster Vaccines Completed 04/02/2024, [...] DRUG SCREEN Routine 03/01/2025 10:10 AM EDT jail 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 XR WRIST 3+ VIEWS RIGHT Routine 01/27/2025 11:18 AM EDT XR ELBOW 1-2 VIEWS RIGHT Routine 01/27/2025 11:13 AM EDT XR SHOULDER 2+ VIEWS RIGHT Routine 01/27/2025 11:06 AM EDT POCT ROBIN-14 URINE DRUG SCREEN Routine 01/25/2025 10:15 AM EDT Spondylosis of cervical spine 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 DRUG MONITOR, COCAINE METAB, QN, URINE Routine 01/25/2025 9:30 AM EDT Spondylosis of cervical spine 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 POCT ROBIN-14 URINE DRUG SCREEN Routine 12/28/2024 10:32 AM EDT jail 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 HEPATITIS C AB W/REFL TO HCV RNA, QN, PCR Routine 09/29/2024 3:37 PM EDT STD exposure HIV 1/2 ANTIGEN/ANTIBODY, FOURTH GENERATION W/RFL Routine 09/29/2024 3:37 PM EDT STD exposure LIPID PANEL, STANDARD Routine 09/29/2024 3:37 PM EDT Hyperlipidemia, unspecified hyperlipidemia type HM COLONOSCOPY Routine 01/06/2018 8:00 AM EDT from Last 3 Months or Most Recently Relevant to Health Maintenance Results * (ABNORMAL) POCT ROBIN-14 Urine Drug Screen (03/01/2025 10:10 AM EDT) Only the most recent of3 resultswithin the time period is included. THC Positive(A) Negative Cocaine Screen, Urine Positive(A) [...] - 03/01/2025 10:10 AM EDT .UTOX cup Lot#[id number] Exp. 04/12/26 Internal Pass Control Amy Berry MD POINT OF CARE SOHA T ENTER/EDIT ORDERABLES Final Result * XR Wrist 3+ Views Right (01/27/2025 11:18 AM EDT) Anatomical Region Laterality Modality Upper Extremities, Wrist Right Radiogr aphic Imaging 01/27/2025 11:1 8 AM EDT Narrative 01/27/2025 12:26 PM EDT [place] [address] XRay Report Signed Patient: Zain Welch MR# : [id number] : 1965 Acct:[id number] Age/Sex: 59 / M ADM Date: 01/27/25 Loc: HO.ED Attending Dr: Ordering Physician: Ailyn Carbone Date of Service: 01/27/25 Procedure(s): XR wrist RT min 3V Accession Number(s): [id number] cc: Ailyn Carbone; Amy Pickett MD EXAMINATION: XR WRIST, RIGHT CLINICAL INFORMATION: pain COMPARISON: None available. TECHNIQUE: PA, lateral, and oblique views of the right wrist. Scaphoid view. FINDINGS: No acute cortical disruption. No gross malalignment. No lytic or blastic lesions. No subcutaneous emphysema. No metallic or radiopaque foreign body. XR/XR wrist RT min 3V IMPRESSION: No acute fracture or dislocation. Electronically signed by: Tyler Cortez MD 01/27/2025 12:23 PM EDT RP Dictated By: Tyler Serrato MD Signed By: <Electronically signed by Tyler Reid MD in OV> 01/27/25 1223 DD/ 1118 TD/TT: 01/27/25 1217 Registered Nurse Obstetrics: Procedure Note Donotuseinterpreter, Image - 01/27/2025 [place] [address] XRay Report Signed Patient: Zain Welch LMR# : [id number] : 1965Acct:[id number] Age/Sex: 59 / MADM Date: 01/27/25 Loc: .ED Attending Dr: Ordering Physician: Ailyn Carbone Date of Service: 01/27/25 Procedure(s): XR wrist RT min 3V Accession Number(s): [id number] cc: Ailyn Carbone; Amy Pickett MD EXAMINATION: XR WRIST, RIGHT CLINICAL INFORMATION: pain COMPARISON: None available. TECHNIQUE: PA, lateral, and oblique views of the right wrist. Scaphoid view. FINDINGS: No acute cortical disruption. No gross malalignment. No lytic or blastic lesions. No subcutaneous emphysema. No metallic or radiopaque foreign body. XR/XR wrist RT min 3V IMPRESSION: No acute fracture or dislocation. Electronically signed by: Tyler Cortez MD 01/27/2025 12:23 PM EDT RP Dictated By: Tyler Serrato MD Signed By: <Electronically signed by Tyler Reid MDin OV> 01/27/25 1223 DD/ 1118 TD/TT: 01/27/25 1217 Registered Nurse Obstetrics: [facility] External Provider IMG XR PROCEDURES Edited Result - Final * XR Elbow 1-2 Views Right (01/27/2025 11:13 AM EDT) Anatomical Region Laterality Modality Upper Extremities, Elbow Right Radiogr aphic Imaging 01/27/2025 11:1 3 AM EDT Narrative 01/27/2025 12:25 PM EDT [address] [address] XRay Report Signed Patient: Zain Welch MR# : [id number] : 1965 Acct:[id number] Age/Sex: 59 / M ADM Date: 01/27/25 Loc: HO.ED Attending Dr: Ordering Physician: Ailyn Carbone Date of Service: 01/27/25 Procedure(s): XR elbow RT 2V Accession Number(s): [id number] cc: Ailyn Carbone; Amy Pickett MD EXAMINATION: XR ELBOW, RIGHT CLINICAL INFORMATION: pain COMPARISON: November 22, 2024. TECHNIQUE: AP, lateral, and oblique views of the right elbow. FINDINGS: No acute cortical disruption or malalignment. No lytic or blastic lesions. No joint effusion. No metallic or radiopaque foreign body. No subcutaneous emphysema. XR/XR elbow RT 2V IMPRESSION: No acute fracture or dislocation. Electronically signed by: Tyler Cortez MD 01/27/2025 12:23 PM EDT Dictated By: Tyler Serrato MD Signed By: <Electronically signed by Tyler Reid MD in OV> 01/27/25 1223 DD/ 1113 TD/TT: 01/27/25 1217 Registered Nurse Obstetrics: Procedure Note Donotuseinterpreter, Image - 01/27/[address] [address] XRay Report Signed Patient: Zain Welch LMR# : [id number] : 1965Acct:[id number] Age/Sex: 59 / MADM Date: 01/27/25 Loc: HO.ED Attending Dr: Ordering Physician: Ailyn Carbone Date of Service: 01/27/25 Procedure(s): XR elbow RT 2V Accession Number(s): [id number] cc: Ailyn Carbone; Amy Pickett MD EXAMINATION: XR ELBOW, RIGHT CLINICAL INFORMATION: pain COMPARISON: November 22, 2024. TECHNIQUE: AP, lateral, and oblique views of the right elbow. FINDINGS: No acute cortical disruption or malalignment. No lytic or blastic lesions. No joint effusion. No metallic or radiopaque foreign body. No subcutaneous emphysema. XR/XR elbow RT 2V IMPRESSION: No acute fracture or dislocation. Electronically signed by: Tyler Cortez MD 01/27/2025 12:23 PM EDT Dictated By: Tyler Serrato MD Signed By: <Electronically signed by Tyler Reid MDin OV> 01/27/25 1223 DD/ 1113 TD/TT: 01/27/25 1217 Registered Nurse Obstetrics: [facility] External Provider IMG XR PROCEDURES Edited Result - Final * XR Shoulder 2+ Views Right (01/27/2025 11:06 AM EDT) Anatomical Region Laterality Modality Upper Extremities, Shoulder Right Radi ographic Imaging 01/27/2025 11:0 6 AM EDT Narrative 01/27/2025 12:25 PM EDT [place] [address] XRay Report Signed Patient: Zain Welch MR# : [id number] : 1965 Acct:[id number] Age/Sex: 59 / M ADM Date: 01/27/25 Loc: HO.ED Attending Dr: Ordering Physician: Ailyn Carbone Date of Service: 01/27/25 Procedure(s): XR shoulder RT min 2V Accession Number(s): [id number] cc: Ailyn Carbone; Amy Pickett MD EXAMINATION: XR SHOULDER, RIGHT CLINICAL INFORMATION: pain COMPARISON: November 22, 2024. TECHNIQUE: AP external rotation, Grashey, scapular Y, and axillary views of the right shoulder. FINDINGS: Degenerative changes in the acromioclavicular joint and the greater tuberosity of the humerus. No acute cortical disruption or malalignment. No lytic or blastic lesions. Metallic hardware in the lower cervical spine no fully included in the popqa-nh-ymju. Calcified plaque in the thoracic aortic arch. XR/XR shoulder RT min 2V IMPRESSION: Mild degenerative changes without acute fracture or dislocation. Electronically signed by: Tyler Cortez MD 01/27/2025 12:22 PM EDT RP Dictated By: Tyler Serrato MD Signed By: <Electronically signed by Tyler Reid MD in OV> 01/27/25 1222 DD/ 1106 TD/TT: 01/27/25 1217 Registered Nurse Obstetrics: Procedure Note Donotuseinterpreter, Image - 01/27/2025 [place] [address] XRay Report Signed Patient: Zain Welch LMR# : [id number] : 1965Acct:[id number] Age/Sex: 59 / MADM Date: 01/27/25 Loc: HO.ED Attending Dr: Ordering Physician: Ailyn Carbone Date of Service: 01/27/25 Procedure(s): XR shoulder RT min 2V Accession Number(s): [id number] cc: Ailyn Carbone; Amy Pickett MD EXAMINATION: XR SHOULDER, RIGHT CLINICAL INFORMATION: pain COMPARISON: November 22, 2024. TECHNIQUE: AP external rotation, Grashey, scapular Y, and axillary views of the right shoulder. FINDINGS: Degenerative changes in the acromioclavicular joint and the greater tuberosity of the humerus. No acute cortical disruption or malalignment. No lytic or blastic lesions. Metallic hardware in the lower cervical spine no fully included in the sayiu-le-zhlj. Calcified plaque in the thoracic aortic arch. XR/XR shoulder RT min 2V IMPRESSION: Mild degenerative changes without acute fracture or dislocation. Electronically signed by: Tyler Cortez MD 01/27/2025 12:22 PM EDT RP Dictated By: Tyler Serrato MD Signed By: <Electronically signed by Tyler Reid MDin OV> 01/27/25 1222 DD/ 1106 TD/TT: 01/27/25 1217 Registered Nurse Obstetrics: [facility] External Provider IMG XR PROCEDURES Edited Result - Final * Drug Monitoring, Cocaine Metabolite, Quantitative, Urine (01/25/2025 9:30 AM EDT) Benzoylecgonine [facility] Comment:[id number] ng/mL Cocaine Comments SEE NOTE [facility] Comment:NOTES AND COMMENTSTh is drug testing is for medical treatment only. Analysiswas performed as non-forensic testing and these resultsshould be used only by healthcare providers torender diagnosis or treatment, or to monitor progress ofmedical conditions.Cocaine Notes:Benzoylecgonine detected is consistent with the use of thedrug Cocaine.LDT Notes:Confirmation tests were developed and their analyticalperformance characteristics have been determined by [employer]. It has not been cleared orapproved by the FDA. This assay has been validated pursuantto the CLIA regulations and is used for clinical purposes.Healthcare Providers needing Interpretation assistance,please contact us at [phone] ( ) M-F,8am to 10pm ESTPERFORMING SITE:[facility], [address] [place] [phone] Scientific Informatics Leader: MICHELLE GAUTAM MD, CLIA:[id number] Urine (Urine, Random) 01/25/2025 9:30 AM EDT 01/25/2025 11:21 AM EDT Amy Berry MD LAB URINE ORDERAB LES Final Result Performing Organization Address [facility]/ZIP Co de Phone Number [facility] [address] [place] [address] [phone] * (ABNORMAL) Hepatitis C Antibody with Reflex to HCV, RNA, Quantitative, Real- Time PCR (09/29/2024 3:37 PM EDT) Hepatitis C Antibody Reactive( A) Nonreactive [facility] Comment:Presumptive evidence of antibodies to HCV. Blood Venous blood specimen / Unknown 09/29/2024 3:37 PM EDT 09/29/2024 3:38 PM EDT Brent Fischer MD LAB BLOOD ORDERABL ES Final Result Performing Organization Address [facility] Co de Phone Number [facility] [address] [place] [phone] * HIV-1/2 Antigen and Antibodies, Fourth Generation, with Reflexes (09/29/2024 3:37 PM EDT) HIV AB/AG Nonreactive Nonreactive [facility] Comment:HIV-1 p24 Ag and/or HIV-1/HIV-2 Ab not detected.A test result that is nonreactive does not exclude thepossibility of exposure to or infection with HIV-1 and/orHIV-2. Nonreactive results in this assay for individualswith prior exposure to HIV-1 and/or HIV-2 may be due toantigen and antibody levels that are below the limit ofdetection of this assay.The [employer] HIV Ag/Ab Combo assay result andsupplemental assay [...] Final Result Performing Organization Address [facility]/ZIP Co de Phone Number [facility] [address] [place] [address] [phone] * (ABNORMAL) Lipid Panel, Standard (09/29/2024 3:37 PM EDT) Triglycerides 155(H) <150 mg/dL [facility] Comment:Desirable Triglyceri de: less than 150 mg/dLBorderline High Triglyceride 150-199 mg/dLHigh Triglyceride: 200-499 mg/dLVery High Triglyceride: greater than or equal to 5OO mg/dL Cholesterol 211(H) <200 mg/dL [facility] Comment:Desirable Cholestero l: less than 200 mg/dLBorderline High Cholesterol: 200-239 mg/dLHigh Cholesterol: greater than 239 mg/dL LDL Cholesterol Calculated 131(H) <100 mg/dL [facility] Comment:Desirable LDL: less than 100 mg/dLNear Optimal/Above Optimal LDL: 110- 129 mg/dLBorderline High LDL: 130-159 mg/dLHigh LDL: 160-189 mg/dLVery High LDL: greater than or equal to 190 mg/dL HDL Cholesterol 49 >40 mg/dL [facility] Comment:Desirable HDL: great er than 40 mg/dL Note: This HDL assay may give artificially low results in patients with liver disease. Blood Venous blood specimen / Unknown 09/29/2024 3:37 PM EDT 09/29/2024 3:38 PM EDT us Amy Berry MD LAB BLOOD ORDERAB LES Final Result Performing Organization Address City/[facility]/ZIP Co de Phone Number [facility] [address] [place] [address] [phone] * Hm Colonoscopy (01/06/2018 8:00 AM EDT) us Historical Provider HEALTH MAINTENANCE Final Result from Last 3 Months or Most Recently Relevant to Health Maintenance Insurance [address] [place], [place] [employer] ONE CARE < 65 RUBEN JAIMES [id number] [address] [place], [place] [address] [place] [address] [place] Care Teams Fly Winder Relationship Specialty Start Date End Date Amy Pickett MD [address] [place] [phone] PCP - General Internal Medicine 04/07/23
--- OUTSIDE RECORDS SUMMARY | 2025-03-01 14:36 | XMS_ITS | Encounter Summary ---
Author Organization [employer] Address [address] [place] [address] 7 [place] [address] Care Team Providers Care Preparer Name Role Phone Amy Pickett MD Primary Care Pro vider Reason for Visit * Reason Onset Date Comments Med Refill 05/13/2024 Encounter Details Date Type Department Care Team ([facility] st Contact Info) Description 05/13/2024 Telephone [facility] [address] [place], [place] [phone] Amy Pickett MD [address] [place], [place] [phone] Med Refill Social History Tobacco Use Types [...] immediate release tablet To be sent to: [facility]/pharmacy #[id number] - [address] documented in this encounter Plan of Treatment Upcoming Encounters Date Type Department Care Team (Late st Contact Info) Description 03/29/2025 9:45 AM EDT Office Visit [facility] [address] [place], [place] [phone] documented as of this encounter Visit Diagnoses Not on filedocumented in this encounter Additional Health Concerns Assessment Noted Time PHQ-9 Depression Total Score: 10 024 9:41 AM EDT documented as of this encounter Care Teams Preparer Relationship Specialty Start Date End Date Amy Pickett MD [address], [place] [phone] PCP - General Internal Medicine 04/07/23 documented as of this encounter
--- OUTSIDE RECORDS SUMMARY | 2025-03-01 14:36 | XMS_ITS | Encounter Summary ---
Author Organization [employer] Address [address] [place] [address] 7t [place] [address] Care Team Providers Care Plastic Bubble Packer Name Role Phone Elise Glover BAG MENDER Primary Care Provider Amy Ware MD Primary Care Pro vider Encounter Details Date Type Department Care Team (Late st Contact Info) Description 01/14/2023 Orders Only [facility] MEDICINE [address] [place] [address] [phone] Elise Glover FNP Social History Tobacco Use Types Packs/Day Years [...] Description 03/29/2025 9:45 AM EDT Office Visit [facility] [address] [place] [address] [phone] documented as of this encounter Visit Diagnoses Not on filedocumented in this encounter Additional Health Concerns Assessment Noted Time PHQ-9 Depression Total Score: 24 03/28/2 023 10:05 AM EDT documented as of this encounter Care Teams Plastic Bubble Packer Relationship Specialty Start Date End Date Elise Glover FNP PCP - General Family Medicine 07/09/22 04/06/23 Amy Pickett MD [address] [place] [address] PCP - General Internal Medicine 04/07/23 documented as of this encounter
--- OUTSIDE RECORDS SUMMARY | 2025-03-01 14:36 | XMS_ITS | Encounter Summary ---
Author Organization [employer] Address [address] [place] [address] 7 [place] [address] Care Team Providers Care Manager Infrastructure Name Role Phone Elise Glover BOARD CERTIFIED FAMILY PHYSICIAN Primary Care Provider Amy Ware MD Primary Care Pro vider Reason for Visit * Reason Onset Date Comments triage 08/22/2022 Encounter Details Date Type Department Care Team (Late st Contact Info) Description 08/22/2022 Telephone [facility] [address] [place] [address] [phone] Elise Glover FNP triage Social History Tobacco Use Types Packs/Day [...] Description 03/29/2025 9:45 AM EDT Office Visit [facility] [address] [place] [address] [phone] documented as of this encounter Visit Diagnoses Not on filedocumented in this encounter Care Teams Manager Infrastructure Relationship Specialty Start Date End Date Elise Glover FNP PCP - General Family Medicine 07/09/22 04/06/23 Amy Pickett MD [address] [place] [phone] PCP - General Internal Medicine 04/07/23 documented as of this encounter
--- OUTSIDE RECORDS SUMMARY | 2025-03-01 14:36 | XMS_ITS | Encounter Summary ---
Author Organization [employer] Address 75 [facility] 7t [place] [address] Care Team Providers Care Furniture Associate Name Role Phone Amy Pickett MD Primary Care Pro vider Reason for Visit * Reason Onset Date Comments Med Refill 02/24/2025 Encounter Details Date Type Department Care Team (Late st Contact Info) Description 02/24/2025 Refill [facility] P[facility]S [address] [place] [address] 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, RN [address] [place] [address] Chronic pain of both knees; Chronic low [...] Description 03/29/2025 9:45 AM EDT Office Visit [facility] MEDICINE [address] [place] [address] documented as of this encounter Visit Diagnoses Diagnosis Chronic pain of both knees Chronic low back pain, unspecified back pain laterality, unspecified whether sciatica present documented in this encounter Additional Health Concerns Assessment Noted Time PHQ-9 Depression Total Score: 0 11/25/19 25 2:10 PM EDT documented as of this encounter Care Teams Furniture Associate Relationship Specialty Start Date End Date Amy Pickett MD [address] [place] [address] PCP - General Internal Medicine 04/07/23 documented as of this encounter
--- OUTSIDE RECORDS SUMMARY | 2025-03-01 14:36 | XMS_ITS | Clinical Summary ---
Author Organization [facility] Address [address] [place] [address] Care Team Providers Care Drivematic Machine Operator Name Role Phone Donna Harmon MD [...] Sigmoidoscopy 12/23/2016 Influenza Vaccine (#1) 2025 Insurance [facility] RUB[place]IMES [id number] Care Teams Drivematic Machine Operator Relationship Specialty Start Date End Date Donna Harmon MD PCP - General 05/11/19
--- OUTSIDE RECORDS SUMMARY | 2025-03-01 14:36 | XMS_ITS | Encounter Summary ---
Author Organization [employer] Address 75 [facility] 7 [place] [address] Care Team Providers Care Flake Cutter Operator Name Role Phone Amy Pickett MD Primary Care Pro vider Reason for Visit * Reason Onset Date Comments Appointment Request 09/02/2023 Encounter Details Date Type Department Care Team ([facility] st Contact Info) Description 09/02/2023 Telephone [facility] MED[facility]INE [address] [place], [place] [phone] Amy Pickett MD [address] [place] [address] Appointment Request Social History Tobacco Use Types [...] t he electric, gas, oil or water [employer] threatened to shut off services in your [...] from pt requesting a transfer patient appointment. Supervisor [facility] does not see any availability. Pt states he needs appointment as soon as possible due to controlled medication. States needs to be seen bya new provider to continue medication. Please contact pt at [phone] documented in this encounter Plan of Treatment Upcoming Encounters Date Type Department Care Team (Late st Contact Info) Description 03/29/2025 9:45 AM EDT Office Visit [facility] [address] [place] [phone] documented as of this encounter Visit Diagnoses Not on filedocumented in this encounter Additional Health Concerns Assessment Noted Time PHQ-9 Depression Total Score: 24 023 10:05 AM EDT documented as of this encounter Care Teams Flake Cutter Operator Relationship Specialty Start Date End Date Amy Pickett MD [address] [place] [address] PCP - General Internal Medicine 04/07/23 documented as of this encounter
--- OUTSIDE RECORDS SUMMARY | 2025-03-01 14:36 | XMS_ITS | Encounter Summary ---
Author Organization [employer] Address [address] [place] [address] 7 [place] [address] Care Team Providers Care Building Estimator Name Role Phone Amy Pickett MD Primary Care Pro vider Reason for Visit * Reason Onset Date Comments Med Refill 08/06/2024 Encounter Details Date Type Department Care Team ([facility] st Contact Info) Description 08/06/2024 Telephone [facility]INE [address] [place], [place] [phone] Amy Pickett MD [address] [place], [place] [phone] Med Refill Social History Tobacco Use Types [...] 0.083% nebulizer solution To be sent to: [facility]/pharmacy #[id number] - [address] documented in this encounter Plan of Treatment Upcoming Encounters Date Type Department Care Team (Late st Contact Info) Description 03/29/2025 9:45 AM EDT Office Visit [address] [phone] documented as of this encounter Visit Diagnoses Not on filedocumented in this encounter Additional Health Concerns Assessment Noted Time PHQ-9 Depression Total Score: 10 024 9:41 AM EDT documented as of this encounter Care Teams Building Estimator Relationship Specialty Start Date End Date Amy Pickett MD [address] [place] [address] PCP - General Internal Medicine 04/07/23 documented as of this encounter
--- OUTSIDE RECORDS SUMMARY | 2025-03-01 14:36 | XMS_ITS | Encounter Summary ---
Author Organization [employer] Address 75 [facility] 7t [place] [address] Care Team Providers Care Fluxer Name Role Phone Amy Pickett MD Primary Care Pro vider Encounter Details Date Type Department Care Team (Latest Contact Info) Description 03/01/2025 Travel Social History Tobacco Use Types Packs/Day [...] Description 03/29/2025 9:45 AM EDT Office Visit [facility] MEDICINE [address] [place] [phone] documented as of this encounter Visit Diagnoses Not on filedocumented in this encounter Additional Health Concerns Assessment Noted Time PHQ-9 Depression Total Score: 0 11/25/19 25 2:10 PM EDT documented as of this encounter Care Teams Fluxer Relationship Specialty Start Date End Date Amy Pickett MD [address] [place] [phone] PCP - General Internal Medicine 04/07/23 documented as of this encounter
--- OUTSIDE RECORDS SUMMARY | 2025-03-01 14:36 | XMS_ITS | Encounter Summary ---
Author Organization [employer] Address 75 [facility] 7t [place] [address] Care Team Providers Care Public Relations Intern Name Role Phone Amy Pickett MD Primary Care Pro vider Encounter Details Date Type Department Care Team ([facility] st Contact Info) Description 10/01/2024 Orders Only [facility] MED & PEDS [address] [place], [place] [phone] Za Preston MD [address] [place] [address] Social History Tobacco Use Types Packs/Day Years [...] Description 03/29/2025 9:45 AM EDT Office Visit [facility] MEDICINE [address] [place] [phone] documented as of this encounter Visit Diagnoses Not on filedocumented in this encounter Additional Health Concerns Assessment Noted Time PHQ-9 Depression Total Score: 10 024 9:41 AM EDT documented as of this encounter Care Teams Public Relations Intern Relationship Specialty Start Date End Date Amy Pickett MD [address] [place] [address] PCP - General Internal Medicine 04/07/23 documented as of this encounter
--- OUTSIDE RECORDS SUMMARY | 2025-03-01 14:36 | XMS_ITS | Encounter Summary ---
Author Organization [employer] Address [address] [place] [address] 7 [place] [address] Care Team Providers Care Rotary Filter Operator Name Role Phone Aym Pickett MD Primary Care Pro vider Reason for Visit * Reason Onset Date Comments Med Refill 2024 Encounter Details Date Type Department Care Team ([facility] st Contact Info) Description 2024 Telephone [facility] MEDICINE [address] [place], [place] [phone] Amy Pickett MD [address] [place], [place] [phone] Med Refill Social History Tobacco Use Types [...] encounter Miscellaneous Notes * Telephone Encounter - Andrew Maldonado - 2024 9:15 AM EDT TC from pt requesting medication refill. Medications needing refill: oxyCODONE (Roxicodone) 15 MG immediate release tablet To be sent to: [facility]/pharmacy #[id number] documented in this encounter Plan of Treatment Upcoming Encounters Date Type Department Care Team (Late st Contact Info) Description 03/29/2025 9:45 AM EDT Office Visit [facility] MEDICINE [address] [place], [place] [phone] documented as of this encounter Visit Diagnoses Not on filedocumented in this encounter Additional Health Concerns Assessment Noted Time PHQ-9 Depression Total Score: 0 11/25/19 25 2:10 PM EDT documented as of this encounter Care Teams Rotary Filter Operator Relationship Specialty Start Date End Date Amy Pickett MD [address] [place], [place] [phone] PCP - General Internal Medicine 04/07/23 documented as of this encounter
--- OUTSIDE RECORDS SUMMARY | 2025-03-01 14:36 | XMS_ITS | Encounter Summary ---
Author Organization [employer] Address 75 [facility] 7 [place] [address] Care Team Providers Care Mobile Engineer Name Role Phone Amy Pickett MD Primary Care Pro vider Reason for Visit * Reason Onset Date Comments med 02/24/2025 Encounter Details Date Type Department Care Team ([facility] st Contact Info) Description 02/24/2025 Telephone [facility] MEDICINE [address] [place], [place] [phone] Amy Pickett MD [address] [place] [address] med Social History Tobacco Use Types Packs/Day Years [...] encounter Miscellaneous Notes * Telephone Encounter - Brooke Reid RN - 02/25/2025 2:41 PM EDT Telephone call placed to main number in chart. REPORT MANAGER who is not on HIPAA answered. She is not with him currently. Advised when she sees him, tell him to call us back. * Telephone Encounter - Andrea Palacio - 02/24/2025 10:07 AM EDT Tc from pt stating he is taking cyclobenzaprine (Flexeril) 5 MG tablet 2 times a day , instead of one time a day . Contact pt at [phone] documented in this encounter Plan of Treatment Upcoming Encounters Date Type Department Care Team (Late st Contact Info) Description 03/29/2025 9:45 AM EDT Office Visit [facility] MED[facility]INE [address] [place] [address] documented as of this encounter Visit Diagnoses Not on filedocumented in this encounter Additional Health Concerns Assessment Noted Time PHQ-9 Depression Total Score: 0 11/25/19 25 2:10 PM EDT documented as of this encounter Care Teams Mobile Engineer Relationship Specialty Start Date End Date Amy Pickett MD [address] [place] [address] [place] [address] PCP - General Internal Medicine 04/07/23 documented as of this encounter
--- OUTSIDE RECORDS SUMMARY | 2025-03-01 14:36 | XMS_ITS | Encounter Summary ---
Author Organization [employer] Address [address] [place] [address] 7 [place] [address] Care Team Providers Care Patent Agent Name Role Phone Amy Pickett MD Primary Care Pro vider Reason for Visit * Reason Onset Date Comments Med Refill 10/27/2024 Encounter Details Date Type Department Care Team ([facility] st Contact Info) Description 10/27/2024 Telephone [facility] MEDICINE [address] [place], [place] [phone] Amy Pickett MD [address] [place], [place] [phone] Med Refill Social History Tobacco Use Types [...] immediate release tablet To be sent to: [facility]/pharmacy #[id number] documented in this encounter Plan of Treatment Upcoming Encounters Date Type Department Care Team (Late st Contact Info) Description 03/29/2025 9:45 AM EDT Office Visit [facility] MEDICINE [address] [place] [address] documented as of this encounter Visit Diagnoses Not on filedocumented in this encounter Additional Health Concerns Assessment Noted Time PHQ-9 Depression Total Score: 10 024 9:41 AM EDT documented as of this encounter Care Teams Patent Agent Relationship Specialty Start Date End Date Amy Pickett MD [address] [place] [address] PCP - General Internal Medicine 04/07/23 documented as of this encounter
--- OUTSIDE RECORDS SUMMARY | 2025-03-01 14:36 | XMS_ITS | Encounter Summary ---
Author Organization [employer] Address 75 [facility] 7 [place] [address] Care Team Providers Care Electrical Project Engineer Name Role Phone Amy Pickett MD Primary Care Pro vider Reason for Visit * Reason Onset Date Comments fyi 12/29/2024 Encounter Details Date Type Department Care Team ([facility] st Contact Info) Description 12/29/2024 Telephone [facility] MEDICINE [address] [place], [place] [phone] Amy Pickett MD [address] [place] [address] fyi Social History Tobacco Use Types Packs/Day Years [...] Telephone Encounter - Brooke Reid RN - 12/30/2024 11:03 AM EDT Telephone call placed to main number in chart. CLINIC NURSE Domenica on HIPAA answered and states is not currently with pt. Informed pt refused PM appt. Inquired if he doesn't want to see PM or if he wants to go to a different office. She states isn't sure, will ask him and call us back. She did tell me thatpt would like to switch PCPs. She reports that he doesn't feel heard and that all PCP does is look at labs and adjust meds. Telephone call placed to secondary number in chart to speak to pt regarding this. No answer, left v/m. * Telephone Encounter - Andrea Palacio - 12/29/2024 3:08 PM EDT Stevie Hernandez at [facility] calling to inform that pt stated he did not want to be seen at [facility] for pain management Any further questions contact [phone] documented in this encounter Plan of Treatment Upcoming Encounters Date Type Department Care Team (Late st Contact Info) Description 03/29/2025 9:45 AM EDT Office Visit [facility] MEDICINE [address] [place] [address] documented as of this encounter Visit Diagnoses Not on filedocumented in this encounter Additional Health Concerns Assessment Noted Time PHQ-9 Depression Total Score: 0 11/25/19 2:10 PM EDT documented as of this encounter Care Teams Electrical Project Engineer Relationship Specialty Start Date End Date Amy Pickett MD [address] [place] [address] PCP - General Internal Medicine 04/07/23 documented as of this encounter
--- OUTSIDE RECORDS SUMMARY | 2025-03-01 14:36 | XMS_ITS | Encounter Summary ---
Author Organization [employer] Address 75 [facility] 7 [place] [address] Care Team Providers Care Follow Up Clerk Name Role Phone Amy Pickett MD Primary Care Pro vider Reason for Visit * Reason Onset Date Comments Med Refill 02/11/2024 Encounter Details Date Type Department Care Team (Late st Contact Info) Description 02/11/2024 Telephone [facility] [address] [place], [place] [phone] Amy Pickett MD [address] [place], [place] [phone] Med Refill Social History Tobacco Use Types [...] immediate release tablet To be sent to: [facility]/pharmacy #[id number] - [address] documented in this encounter Plan of Treatment Upcoming Encounters Date Type Department Care Team (Late st Contact Info) Description 03/29/2025 9:45 AM EDT Office Visit [facility] [address] [place] [address] documented as of this encounter Visit Diagnoses Not on filedocumented in this encounter Additional Health Concerns Assessment Noted Time PHQ-9 Depression Total Score: 24 023 10:05 AM EDT documented as of this encounter Care Teams Follow Up Clerk Relationship Specialty Start Date End Date Amy Pickett MD [address] [place] [address] PCP - General Internal Medicine 04/07/23 documented as of this encounter
--- OUTSIDE RECORDS SUMMARY | 2025-03-01 14:36 | XMS_ITS | Encounter Summary ---
Author Organization [employer] Address [address] [place] [address] 7t [place] [address] Care Team Providers Care Cardiopulmonary Technologist Chief Name Role Phone Elise Glover BATTERY ASSEMBLER PLASTIC Primary Care Provider Amy Ware MD Primary Care Pro vider Reason for Visit * Reason Onset Date Comments Durable Medical Equipment 10/07/2022 Encounter Details Date Type Department Care Team (Late st Contact Info) Description 10/07/2022 Telephone [facility] MEDICINE [address] [place] [address] Elise Glover, BATTERY ASSEMBLER PLASTIC Durable Medical Equipment Social History Tobacco Use [...] providers signature * Telephone Encounter - Shereen Navdeep Marquez - 10/07/2022 11:47 AM EDT Tc from Anabelle with [facility] requesting a script for Shower Chair, Had held shower held, Non-slip Mat, Med Reminder, and a Toilet riser. If any questions please contact Anabelle at [phone] documented in this encounter Plan of Treatment Upcoming Encounters Date Type Department Care Team (Late st Contact Info) Description 03/29/2025 9:45 AM EDT Office Visit [facility] MEDICINE [address] [place] [address] documented as of this encounter Visit Diagnoses Not on filedocumented in this encounter Additional Health Concerns Assessment Noted Time PHQ-9 Depression Total Score: 24 10/01/ 023 10:05 AM EDT documented as of this encounter Care Teams Cardiopulmonary Technologist Chief Relationship Specialty Start Date End Date Elise Glover FNP PCP - General Family Medicine 07/09/22 04/06/23 Amy Pickett MD [address] [place] [address] PCP - General Internal Medicine 04/07/23 documented as of this encounter
--- OUTSIDE RECORDS SUMMARY | 2025-03-01 14:36 | XMS_ITS | Encounter Summary ---
Author Organization [employer] Address [address] [place] [address] 7 [place] [address] Care Team Providers Care Buffing Wheel Former Automatic Name Role Phone Amy Pickett MD Primary Care Pro vider Reason for Visit * Reason Onset Date Comments Med Refill 02/24/2025 Encounter Details Date Type Department Care Team ([facility] st Contact Info) Description 02/24/2025 Telephone [facility] MEDICINE [address] [place], [place] [phone] Amy Pickett MD [address] [place], [place] [phone] Med Refill Social History Tobacco Use Types [...] encounter Miscellaneous Notes * Telephone Encounter - Andrea Palacio - 02/24/2025 10:00 AM EDT TC from pt requesting medication refill. Medications needing refill : oxyCODONE (Roxicodone) 15 MG immediate release tablet To be sent to: [facility]/pharmacy #[id number] - [address] documented in this encounter Plan of Treatment Upcoming Encounters Date Type Department Care Team (Late st Contact Info) Description 03/29/2025 9:45 AM EDT Office Visit [facility] MEDICINE [address] [place] [address] documented as of this encounter Visit Diagnoses Not on filedocumented in this encounter Additional Health Concerns Assessment Noted Time PHQ-9 Depression Total Score: 0 11/25/19 25 2:10 PM EDT documented as of this encounter Care Teams Buffing Wheel Former Automatic Relationship Specialty Start Date End Date Amy Pickett MD [address] [place] [id number] PCP - General Internal Medicine 04/07/23 documented as of this encounter
--- OUTSIDE RECORDS SUMMARY | 2025-03-01 14:36 | XMS_ITS | Encounter Summary ---
Author Organization [employer] Address [address] [facility] 7t [place] [address] Care Team Providers Care Metallurgist Helper Name Role Phone Amy Pickett MD Primary Care Pro vider Encounter Details Date Type Department Care Team ([facility] st Contact Info) Description 03/01/2025 Telephone [facility] MED & PEDS [address] [place], [place] [phone] 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, RN [address] [place] [address] Social History Tobacco Use Types Packs/Day Years [...] Telephone Encounter - 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 RN - 03/01/2025 10:12 AM EDT Utox MAGGIE pos. again, pt denies any cocaine use. Sending out urine to the lab for MAGGIE confirmation. documented in this encounter Plan of Treatment Upcoming Encounters Date Type Department Care Team (Late st Contact Info) Description 03/29/2025 9:45 AM EDT Office Visit [facility] MEDICINE [address] [place] [address] documented as of this encounter Visit Diagnoses Not on filedocumented in this encounter Additional Health Concerns Assessment Noted Time PHQ-9 Depression Total Score: 0 11/25/19 25 2:10 PM EDT documented as of this encounter Care Teams Metallurgist Helper Relationship Specialty Start Date End Date Amy Pickett MD [address] [place] [address] PCP - General Internal Medicine 04/07/23 documented as of this encounter
--- OUTSIDE RECORDS SUMMARY | 2025-03-01 14:36 | XMS_ITS | Encounter Summary ---
Author Organization [employer] Address [address] [place] [address] 7 [place] [address] Care Team Providers Care Wiring Mechanic Name Role Phone Amy Pickett MD Primary Care Pro vider Reason for Visit * Reason Onset Date Comments Med Refill 04/09/2024 Encounter Details Date Type Department Care Team (Late st Contact Info) Description 04/09/2024 Telephone [facility] MEDICINE [address] [place], [place] [phone] Amy Pickett MD [address] [place], [place] [phone] Med Refill Social History Tobacco Use Types [...] release tablet To be sent to: [facility]/pharmacy #[id number] - [address] documented in this encounter Plan of Treatment Upcoming Encounters Date Type Department Care Team (Late st Contact Info) Description 03/29/2025 9:45 AM EDT Office Visit [facility] MEDICINE [address] [place] [address] documented as of this encounter Visit Diagnoses Not on filedocumented in this encounter Additional Health Concerns Assessment Noted Time PHQ-9 Depression Total Score: 10 024 9:41 AM EDT documented as of this encounter Care Teams Wiring Mechanic Relationship Specialty Start Date End Date Amy Pickett MD [address] [place] [address] PCP - General Internal Medicine 04/07/23 documented as of this encounter
== END 2025-03-01 13:37 | disposition home or self-care (01) ==
LOC: HO.LNP 13:36
PROVIDERS: Visit Provider Student in an Organized Health Care Education/Training Program
DX: Z79.891 Long term (current) use of opiate analgesic (principal)
CPT/HCPCS: 80353

== ENCOUNTER 2025-03-03 07:13 | Outpatient (REF) | payer OTHER, SELFPAY ==
--- OUTSIDE RECORDS SUMMARY | 2025-03-01 09:10 | XMS_ITS | Encounter Summary ---
Author Organization [employer] Address [address] [place] [address] Care Team Providers Care Ip Technology Transactions Attorney Name Role Phone Amy Pickett MD Primary Care Pro vider Reason for Visit * Reason Comments CURTAIN STITCHER Encounter Details Date Type Department Care Team (Latest Contact Info) Description 03/01/2025 9:10 AM EDT Clinical Support [facility] [address] [place] [address] 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 RN [address] [place] [address] long term acute care registered nurse 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 Social History [...] Group Topic: Behavioral Health Presenter: Bridgette Shearer, [facility] Team -used to see NS at [facility] # -per pt seen in 06/2024 states was seen but not recommended surgery --I called today [facility] NS today to reeval surgery option [...] as prescribed. Specialists: Saw RUBEN Padilla at [facility] 11/17/23 for lower back radiculopathy Scheduled to see NSG Dr. Prieto at [facility] to discuss C spine fracture seen at [facility] 10/2023 CT/CT cervical spine wo IV con [...] this month -used to see NS at [facility] # [phone] -per pt seen in 06/2024 states was [...] List Items Addressed This Visit Mental Health long-term 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 Overview Dx: chronic neck, low back pain, LE claudication Rx: Oxycodone 15mg IR q 6 hours Last CURTAIN STITCHER agreement: 09/28/24 Tier: 1 (monthly CURTAIN STITCHER visits) Additional considerations: Alprazolam 1mg for anxiety [...] root compression . Seen by Neurosurgery at [facility], note pending Referred to Pain Management November 2024 Current Assessment & Plan -Good engagement and participation with Group Medical Visit model -Encouraged multifactorial approach to pain control including pharm and non- pharm modalities -Pill count as expected, Utox pos cocaine. Confirmatory testing sent. See retail tire sales manager. Relevant Orders Drug Monitoring, Cocaine Metabolite, Quantitative, Urine POCT ROBIN-14 Urine Drug Screen (Completed) Follow up: 1 month for Chronic Pain Group Visits. Follow up as scheduled with PCP, sooner as needed. * 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 RN - 03/01/2025 9:10 AM EDT SUBJECTIVE: Zain Lazcano is a 59 y.o. year old male who presents for CURTAIN STITCHER Patient came in to the chronic pain group visit, but stated he has another appointment and can't stay for the group today. Preferred language for medical information: Hong Konger Interpreted needed: No Zain Lazcano does report adherence to Oxycodone 15 mg, take 1 tablet every 6 hours PRN, last refilled 02/25/25. The patient last took Oxycodone on: 03/01/25 OBJECTIVE: DIAMOND GRADER checked: 03/01/2025 Pill count completed for Oxycodone , count today is 94 , anticipated count should be 94, this is asexpected. Last PCP visit: 02/10/25 Controlled substance agreement signed: Controlled Substance Agreement 10/13/2024 CURTAIN STITCHER Tier: 1 Current Medications[1] Marijuana use: Yes [...] MAGGIE confirmation. ASSESSMENT: Encounter Diagnosis Name Primary? long term acute care registered nurse 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 PLAN: Information on pain group given: Yes Information on acupuncture given: Previously discussed Narcan education provided: Previously discussed Narcan prescription: active Zain Lazcano will continue taking medication as prescribed and follow up at the next CURTAIN STITCHER visit or sooner if needed. Zain Lazcano [...] Rfl: 2 Nebulizers (Comp-Air Elite Compact Neb) [facility], , Disp: , Rfl: nicotine polacrilex (Commit) [...] days., Disp: 112 tablet, Rfl: 0 pancrelipase, Ndt-Phkc-Qley, (Creon) 2808-5843 units capsule, Take 1 capsule by mouth [...] Description 03/29/2025 9:45 AM EDT Office Visit [facility] [address] [place] [address] Scheduled Orders Name Type Priority Associated Diagnoses Orde r Schedule Drug Monitoring, Cocaine Metabolite, Quantitative, Urine Lab Routine long-term 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 Ordered: 03/01/2025 documented as of this encounter Procedures Procedure Name Priority Date/Time Associated Diagnosis Comments POCT ROBIN-14 URINE DRUG SCREEN Routine 03/01/2025 10:10 AM EDT long term acute care registered nurse 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 documented in [...] - 03/01/2025 10:10 AM EDT .UTOX cup Lot#[id number] Exp. 04/12/26 Internal Pass Control Amy Berry MD POINT OF CARE SOHA T ENTER/EDIT ORDERABLES Final Result documented in this encounter Visit Diagnoses Diagnosis long term acute care registered nurse 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 documented in this encounter Additional Health Concerns Assessment Noted Time PHQ-9 Depression Total Score: 0 11/25/19 25 2:10 PM EDT documented as of this encounter Care Teams Ip Technology Transactions Attorney Relationship Specialty Start Date End Date Amy Pickett MD [address] [place] [phone] PCP - General Internal Medicine 04/07/23 documented as of this encounter
--- OUTSIDE RECORDS SUMMARY | 2025-03-03 07:20 | XMS_ITS | Encounter Summary ---
Author Organization [employer] Address [address] [facility] 7 [place] [address] Care Team Providers Care Cs Associate Name Role Phone Amy Pikcett MD Primary Care Pro vider Reason for Visit * Reason Comments Med Refill Encounter Details Date Type Department Care Team ([facility] st Contact Info) Description 06/17/[address] [facility] MEDICINE [address] [place], [place] [phone] Amy Pickett MD [address] [place] [address] Social History Tobacco Use Types Packs/Day Years [...] Description 03/29/2025 9:45 AM EDT Office Visit [facility] MEDICINE [address] [place] [address] documented as of this encounter Visit Diagnoses Not on filedocumented in this encounter Additional Health Concerns Assessment Noted Time PHQ-9 Depression Total Score: 10 024 9:41 AM EDT documented as of this encounter Care Teams Cs Associate Relationship Specialty Start Date End Date Amy Pickett MD [address] [place] [address] PCP - General Internal Medicine 04/07/23 documented as of this encounter
--- OUTSIDE RECORDS SUMMARY | 2025-03-03 07:20 | XMS_ITS | Encounter Summary ---
Author Organization [employer] Address [address] [place] [address] 7 [place] [address] Care Team Providers Care Manager Of Administration Name Role Phone Amy Pickett MD Primary Care Pro vider Reason for Visit * Reason Onset Date Comments Med Refill 10/27/2024 Encounter Details Date Type Department Care Team ([facility] st Contact Info) Description 10/27/2024 Telephone [facility] MEDICINE [address] [place], [place] [phone] Amy Pickett MD [address] [place], [place] [phone] Med Refill Social History Tobacco Use Types [...] immediate release tablet To be sent to: [facility]/pharmacy #[id number] documented in this encounter Plan of Treatment Upcoming Encounters Date Type Department Care Team (Late st Contact Info) Description 03/29/2025 9:45 AM EDT Office Visit [facility] MEDICINE [address] [place] [address] documented as of this encounter Visit Diagnoses Not on filedocumented in this encounter Additional Health Concerns Assessment Noted Time PHQ-9 Depression Total Score: 10 024 9:41 AM EDT documented as of this encounter Care Teams Manager Of Administration Relationship Specialty Start Date End Date Amy Pickett MD [address] [place] [address] PCP - General Internal Medicine 04/07/23 documented as of this encounter
--- OUTSIDE RECORDS SUMMARY | 2025-03-03 07:20 | XMS_ITS | Encounter Summary ---
Author Organization [employer] Address [address] [place] [address] 7 [place] [address] Care Team Providers Care Porcelain Enameling Supervisor Name Role Phone Amy Pickett MD Primary Care Pro vider Reason for Visit * Reason Onset Date Comments Med Refill 2024 Encounter Details Date Type Department Care Team ([facility] st Contact Info) Description 2024 Telephone [facility] MEDICINE [address] [place], [place] [phone] Amy Pickett MD [address] [place], [place] [phone] Med Refill Social History Tobacco Use Types [...] is your housing situation today? I have caludio medrano 05/14/[address] you [...] tablet To be sent to: [facility]/pharmacy #[id number] documented in this encounter Plan of Treatment Upcoming Encounters Date Type Department Care Team (Late st Contact Info) Description 03/29/2025 9:45 AM EDT Office Visit [facility] MEDICINE [address] [place], [place] [phone] documented as of this encounter Visit Diagnoses Not on filedocumented in this encounter Additional Health Concerns Assessment Noted Time PHQ-9 Depression Total Score: 0 11/25/19 25 2:10 PM EDT documented as of this encounter Care Teams Porcelain Enameling Supervisor Relationship Specialty Start Date End Date Amy Pickett MD [address] [place], [place] [phone] PCP - General Internal Medicine 04/07/23 documented as of this encounter
--- OUTSIDE RECORDS SUMMARY | 2025-03-03 07:20 | XMS_ITS | Encounter Summary ---
Author Organization [employer] Address [address] [place] [address] 7t [place] [address] Care Team Providers Care Mold Maker Apprentice Name Role Phone Elise Glover MORTICIAN HELPER Primary Care Provider Amy Ware MD Primary Care Pro vider Encounter Details Date Type Department Care Team (Late st Contact Info) Description 01/14/2023 Orders Only [facility] MEDICINE [address] [place] [phone] Elise Glover FNP Social History Tobacco Use [...] Description 03/29/2025 9:45 AM EDT Office Visit [facility] MEDICINE [address] [place], [place] [phone] documented as of this encounter Visit Diagnoses Not on filedocumented in this encounter Additional Health Concerns Assessment Noted Time PHQ-9 Depression Total Score: 24 03/28/2 023 10:05 AM EDT documented as of this encounter Care Teams Mold Maker Apprentice Relationship Specialty Start Date End Date Elise Glover FNP PCP - General Family Medicine 07/09/22 04/06/23 Amy Pickett MD [address] [place] [address] PCP - General Internal Medicine 04/07/23 documented as of this encounter
--- OUTSIDE RECORDS SUMMARY | 2025-03-03 07:20 | XMS_ITS | Encounter Summary ---
Author Organization [employer] Address [address] [facility] 7t [place] [address] Care Team Providers Care Sales And Marketing Specialist Name Role Phone Amy Pickett MD Primary Care Pro vider Encounter Details Date Type Department Care Team ([facility] st Contact Info) Description 09/01/2024 Telephone [facility] MEDICINE [address] [place], [place] [phone] Amy Pickett MD [address] [place], [place] [phone] Social History Tobacco Use Types Packs/Day Years [...] Description 03/29/2025 9:45 AM EDT Office Visit [facility] MEDICINE [address] [place] [address] documented as of this encounter Visit Diagnoses Not on filedocumented in this encounter Additional Health Concerns Assessment Noted Time PHQ-9 Depression Total Score: 10 024 9:41 AM EDT documented as of this encounter Care Teams Sales And Marketing Specialist Relationship Specialty Start Date End Date Amy Pickett MD [address] [place] [address] PCP - General Internal Medicine 04/07/23 documented as of this encounter
--- OUTSIDE RECORDS SUMMARY | 2025-03-03 07:20 | XMS_ITS | Encounter Summary ---
Author Organization [employer] Address [address] [facility] 7 [place] [address] Care Team Providers Care Integration Engineer Name Role Phone Amy Pickett MD Primary Care Pro vider Reason for Visit * Reason Onset Date Comments Results 10/01/2024 Encounter Details Date Type Department Care Team ([facility] st Contact Info) Description 10/01/2024 Telephone [facility] MEDICINE [address] [place], [place] [phone] Amy Pickett MD [address] [place] [address] Results Social History Tobacco Use Types Packs/Day [...] Blood Test Date when done: 09/29/24 Facility: [facility] Contact pt at [phone] documented in this encounter Plan of Treatment Upcoming Encounters Date Type Department Care Team (Late st Contact Info) Description 03/29/2025 9:45 AM EDT Office Visit [facility] MEDICINE [address] [place] [address] documented as of this encounter Visit Diagnoses Not on filedocumented in this encounter Additional Health Concerns Assessment Noted Time PHQ-9 Depression Total Score: 10 024 9:41 AM EDT documented as of this encounter Care Teams Integration Engineer Relationship Specialty Start Date End Date Amy Pickett MD [address] [place], [place] [phone] PCP - General Internal Medicine 04/07/23 documented as of this encounter
--- OUTSIDE RECORDS SUMMARY | 2025-03-03 07:20 | XMS_ITS | Encounter Summary ---
Author Organization [employer] Address [address] [place] [address] 7 [place] [address] Care Team Providers Care Tank Stave Assembler Name Role Phone Amy Pickett MD Primary Care Pro vider Reason for Visit * Reason Onset Date Comments Med Refill 04/09/2024 Encounter Details Date Type Department Care Team (Late st Contact Info) Description 04/09/2024 Telephone [facility] MEDICINE [address] [place], [place] [phone] Amy Pickett MD [address] [place], [place] [phone] Med Refill Social History Tobacco Use Types [...] immediate release tablet To be sent to: [facility]/pharmacy #[id number] - [address] documented in this encounter Plan of Treatment Upcoming Encounters Date Type Department Care Team (Late st Contact Info) Description 03/29/2025 9:45 AM EDT Office Visit [facility] MEDICINE [address] [place] [address] documented as of this encounter Visit Diagnoses Not on filedocumented in this encounter Additional Health Concerns Assessment Noted Time PHQ-9 Depression Total Score: 10 024 9:41 AM EDT documented as of this encounter Care Teams Tank Stave Assembler Relationship Specialty Start Date End Date Amy Pickett MD [address] [place] [address] PCP - General Internal Medicine 04/07/23 documented as of this encounter
--- OUTSIDE RECORDS SUMMARY | 2025-03-03 07:20 | XMS_ITS | Encounter Summary ---
Author Organization [employer] Address [address] [facility] [address] 7t [place] [address] Care Team Providers Care Forensic Specialist Name Role Phone Amy Pickett MD Primary Care Pro vider Encounter Details Date Type Department Care Team (Late st Contact Info) Description 06/24/2024 Orders Only [facility] MEDICINE [address] [place] [address] Provider, MD Bryan Social History Tobacco Use [...] Description 03/29/2025 9:45 AM EDT Office Visit [facility] MEDICINE [address] [place] [address] documented as of this encounter Procedures Procedure [...] documented as of this encounter Care Teams Forensic Specialist Relationship Specialty Start Date End Date Amy Pickett MD [address] [place] [address] PCP - General Internal Medicine 04/07/23 documented as of this encounter
--- OUTSIDE RECORDS SUMMARY | 2025-03-03 07:20 | XMS_ITS | Clinical Summary ---
Author Organization [facility] Facility Address [address] [place] [address] Care Team Providers Care Dietitian Teacher Name Role Phone Donna Harmon MD Primary [...] Sigmoidoscopy 12/23/2016 Influenza Vaccine (#1) 2025 Insurance [employer] [place] [id number] Care Teams Dietitian Teacher Relationship Specialty Start Date End Date Donna Harmon MD PCP - General 05/11/19
--- OUTSIDE RECORDS SUMMARY | 2025-03-03 07:20 | XMS_ITS | Clinical Summary ---
Author Organization [employer] Address [address] [place] [address] 7t [place] [address] Care Team Providers Care Overhead Garage Door Hanger Name Role Phone Amy Pickett MD Primary [...] 022 Active Nebulizers (Comp-Air Elite Compact Neb) [facility] Active Blood Pressure Monitor kit 1 each [...] vomiting. 60 tablet 1 023 Active pancrelipase, Qtt-Ajqk-Tavo, (Creon) 8039-9678 units capsule Take 1 capsule by mouth [...] oxyCODONE (Roxicodone) 15 MG immediate release tabletIndicatio ns:SAFETY TECHNICIAN checked 06/13/22 Take 1 tablet (15 mg) [...] oxyCODONE (Roxicodone) 15 MG immediate release tabletIndicatio ns:SAFETY TECHNICIAN checked 06/13/22 Take 1 tablet (15 mg) [...] recommended. -Supportive care advised. -Isolation recommendations discussed. termite helper 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 2023 Overview (01/25/2025): Dx: chronic neck, low back pain, LE claudication Rx: Oxycodone 15mg IR q 6 hours Last FLIGHT OPERATIONS MANAGER agreement: 09/28/24 Tier: 1 (monthly FLIGHT OPERATIONS MANAGER visits) Additional considerations: Alprazolam 1mg for anxiety Assessment & Plan (01/25/2025 1:45 PM EDT): Timeline: -previous positive utox for cocaine 11/2023 -09/28/24: Group - utox/pill count wnl -01/25/25: Group - Pill count as expected, Utox pos cocaine. Confirmatory testing sent. Chronic obstructive pulmonar y disease, unspecified COPD type 05/16/2024 Overview (09/05/2024): Following with [facility] pulmonology-Dr. Maldonado Continue with Combivent inhaler Claudication [...] Injections 11/2022 Encouraged stretching Will refer to [facility] Continue FLIGHT OPERATIONS MANAGER at this time. Will perform random Utox [...] root compression . Seen by Neurosurgery at [facility], note pending Referred to Pain Management November 2024 Assessment & Plan (01/25/2025 1:44 PM EDT): -Good engagement and participation with Group Medical Visit model -Encouraged multifactorial approach to pain control including pharm and non- pharm modalities -Pill count as expected, Utox pos cocaine. Confirmatory testing sent. See documentation spec. Assessment & Plan (09/28/2024 2:02 PM EDT): [...] C7 fracture seen on CT scan at [facility] ER 10/28/23 He participated fully in group [...] C7 fracture seen on CT scan at [facility] ER 10/28/23 He participated fully in group [...] Injections 11/2022 Encouraged stretching Will refer to [facility] physical therapy Continue FLIGHT OPERATIONS MANAGER at this time. Will perform random Utox [...] lumbar pain. Encouraged stretching Will refer to [facility] Continue FLIGHT OPERATIONS MANAGER at this time. Will perform random Utox [...] Description 03/01/2025 9:10 AM EDT Clinical Support [facility] [address] [place] [phone] 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, DARIANA longterm 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 03/01/2025 Telephone [facility] [address] [place] [address] 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, DARIANA 03/01/2025 Travel 02/24/2025 Refill [facility] [address] [place] [address] 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, catalyst unit operator pain of both knees; Chronic low back pain, unspecified back pain laterality, unspecified whether sciatica present 02/24/2025 Telephone [facility] [address] [place] [address] Amy Pickett MD med 02/24/2025 Telephone [facility] [address] [place] [address] Amy Pickett MD Med Refill 02/19/2025 Refill [facility] [address] [place] [address] Amy Pickett MD 02/10/2025 9:30 AM EDT Office Visit [facility] [address] [place] [phone] Amy Pickett MD Cervical spondylosis without myelopathy (Primary Dx); Chronic migraine without aura without status migrainosus, not intractable; Essential hypertension; H/O lipoma; Mass of wrist, right; Claudication of left lower extremity ([facility]/HCC); Health care maintenance; Lipoma, unspecified site; termite helper 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; Chronic right shoulder pain; Spondylosis of cervical spine 02/10/2025 Telephone [facility] [address] [place] [phone] Amy Pickett MD Change PCP; TRANSFER REQUEST 02/10/2025 Travel 02/08/2025 Refill [facility] [address] [place] [address] Amy Pickett MD 02/03/[address] [address] Bri Noriega MD 02/01/[address] [address] Amy Pickett MD Durable Medical Equipment 01/27/2025 Orders Only [facility] External Provider, [facility] 01/25/2025 9:45 AM EDT Office Visit [address] [address] Holly Wills, ENERGY SALES CONSULTANT Spondylosis of cervical spine (Primary Dx); longterm 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 01/25/2025 Telephone [facility] [address] [place] [address] 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 RN 01/25/2025 Travel 01/21/2025 Refill [facility] [address] [place] [phone] Aym Pickett MD Chronic pain of both knees; Chronic low back pain, unspecified back pain laterality, unspecified whether sciatica present 01/11/2025 Refill [facility] [address] [place] [phone] Brent Hanson MD 01/10/2025 Telephone [facility] [address] [place] [phone] Amy Pickett MD TP request 12/29/2024 Telephone [facility] [address] [place] [phone] Amy Pickett MD fyi 12/28/2024 9:00 AM EDT Clinical Support [facility] [address] [place] [address] Danay Flaherty RN termite helper 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 (Primary Dx) 12/28/2024 Travel 2024 Refill [facility] [address] [place] [address] 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 RN Chronic pain of both knees; Chronic low back pain, unspecified back pain laterality, unspecified whether sciatica present 2024 Refill [facility] [address] [place] [address] Amy Pickett MD Moderate persistent asthma without complication 2024 Telephone [facility] [address] [place] [phone] Amy Pickett MD Med Refill 12/19/2024 Refill [facility] [address] [place] [address] Chioma Mojica MD 12/16/2024 Telephone [facility] [address] [place] [address] 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 RN 12/04/2024 Refill [facility] [address] [place] [phone] Amy Pickett MD Chronic low back pain, [...] Description 03/29/2025 9:45 AM EDT Office Visit [facility] [address] [place] [address] Health Maintenance Due Date Last Done Comments [...] DRUG SCREEN Routine 03/01/2025 10:10 AM EDT longterm 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 XR WRIST 3+ VIEWS RIGHT Routine 01/27/2025 11:18 AM EDT XR ELBOW 1-2 VIEWS RIGHT Routine 01/27/2025 11:13 AM EDT XR SHOULDER 2+ VIEWS RIGHT Routine 01/27/2025 11:06 AM EDT POCT ROBIN-14 URINE DRUG SCREEN Routine 01/25/2025 10:15 AM EDT Spondylosis of cervical spine termite helper 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 DRUG MONITOR, COCAINE METAB, QN, URINE Routine 01/25/2025 9:30 AM EDT Spondylosis of cervical spine termite helper 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 POCT ROBIN-14 URINE DRUG SCREEN Routine 12/28/2024 10:32 AM EDT longterm 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 HEPATITIS C [...] - 03/01/2025 10:10 AM EDT .UTOX cup Lot#[id number] Exp. 04/12/26 Internal Pass Control Amy Berry MD POINT OF CARE SOHA T ENTER/EDIT ORDERABLES Final Result * XR Wrist 3+ Views Right (01/27/2025 11:18 AM EDT) Anatomical Region Laterality Modality Upper Extremities, Wrist Right Radiogr aphic Imaging 01/27/2025 11:1 8 AM EDT Narrative 01/27/2025 12:26 PM EDT [place] [address] XRay Report Signed Patient: Zain Welch MR# : [id number] : 1965 Acct:[id number] Age/Sex: 59 / M ADM Date: 01/27/25 Loc: HO.ED Attending Dr: Ordering Physician: Ailyn Carbone Date of Service: 01/27/25 Procedure(s): XR wrist RT min 3V Accession Number(s): [id number] cc: Ailyn Carbone; Amy Pickett MD EXAMINATION: [...] 01/27/25 1223 DD/ 1118 TD/TT: 01/27/25 1217 Shoe Worker: Procedure Note Donotuseinterpreter, Image - 01/27/2025 [place] [address] XRay Report Signed Patient: Zain Welch LMR# : [id number] : 1965Acct:[id number] Age/Sex: 59 / MADM Date: 01/27/25 Loc: .ED Attending Dr: Ordering Physician: Ailyn aCrbone Date of Service: 01/27/25 Procedure(s): XR wrist RT min 3V Accession Number(s): [id number] cc: Ailyn Carbone; Amy Pickett MD EXAMINATION: [...] 01/27/25 1223 DD/ 1118 TD/TT: 01/27/25 1217 Shoe Worker: [facility] External Provider IMG XR PROCEDURES Edited Result - Final * XR Elbow 1-2 Views Right (01/27/2025 11:13 AM EDT) Anatomical Region Laterality Modality Upper Extremities, Elbow Right Radiogr aphic Imaging 01/27/2025 11:1 3 AM EDT Narrative 01/27/2025 12:25 PM EDT [address] [address] XRay Report Signed Patient: Zain Welch MR# : [id number] : 1965 Acct:[id number] Age/Sex: 59 / M ADM Date: 01/27/25 Loc: HO.ED Attending Dr: Ordering Physician: Ailyn Carbone Date of Service: 01/27/25 Procedure(s): XR elbow RT 2V Accession Number(s): [id number] cc: Ailyn Carbone; Amy Pickett MD EXAMINATION: [...] 01/27/25 1223 DD/ 1113 TD/TT: 01/27/25 1217 Shoe Worker: Procedure Note Donotuseinterpreter, Image - 01/27/[address] [address] XRay Report Signed Patient: Zain Welch LMR# : [id number] : 1965Acct:[id number] Age/Sex: 59 / MADM Date: 01/27/25 Loc: HO.ED Attending Dr: Ordering Physician: Ailyn Carbone Date of Service: 01/27/25 Procedure(s): XR elbow RT 2V Accession Number(s): [id number] cc: Ailyn Carbone; Amy Pickett MD EXAMINATION: [...] 01/27/25 1223 DD/ 1113 TD/TT: 01/27/25 1217 Shoe Worker: [facility] External Provider IMG XR PROCEDURES Edited Result - Final * XR Shoulder 2+ Views Right (01/27/2025 11:06 AM EDT) Anatomical Region Laterality Modality Upper Extremities, Shoulder Right Radi ographic Imaging 01/27/2025 11:0 6 AM EDT Narrative 01/27/2025 12:25 PM EDT [place] [address] XRay Report Signed Patient: Zain Welch MR# : [id number] : 1965 Acct:[id number] Age/Sex: 59 / M ADM Date: 01/27/25 Loc: HO.ED Attending Dr: Ordering Physician: Ailyn Carbone Date of Service: 01/27/25 Procedure(s): XR shoulder RT min 2V Accession Number(s): [id number] cc: Ailyn Carbone; Amy Pickett MD EXAMINATION: [...] cervical spine no fully included in the umkem-ds-qcyc. Calcified plaque in the thoracic aortic arch. XR/XR shoulder RT min 2V IMPRESSION: Mild degenerative changes without acute fracture or dislocation. Electronically signed by: Tyler Cortez MD 01/27/2025 12:22 PM EDT RP Dictated By: Tyler Serrato MD Signed By: <Electronically signed by Tyler Reid MD in OV> 01/27/25 1222 DD/ 1106 TD/TT: 01/27/25 1217 Shoe Worker: Procedure Note Donotuseinterpreter, Image - 01/27/2025 [place] [address] XRay Report Signed Patient: Zain Welch LMR# : [id number] : 1965Acct:[id number] Age/Sex: 59 / MADM Date: 01/27/25 Loc: HO.ED Attending Dr: Ordering Physician: Ailyn Carbone Date of Service: 01/27/25 Procedure(s): XR shoulder RT min 2V Accession Number(s): [id number] cc: Ailyn Carbone; Amy Pickett MD EXAMINATION: [...] cervical spine no fully included in the jtsla-dc-cvqt. Calcified plaque in the thoracic aortic arch. XR/XR shoulder RT min 2V IMPRESSION: Mild degenerative changes without acute fracture or dislocation. Electronically signed by: Tyler Cortez MD 01/27/2025 12:22 PM EDT RP Dictated By: Tyler Serrato MD Signed By: <Electronically signed by Tyler Reid MDin OV> 01/27/25 1222 DD/ 1106 TD/TT: 01/27/25 1217 Shoe Worker: [facility] External Provider IMG XR PROCEDURES Edited Result - Final * Drug Monitoring, Cocaine Metabolite, Quantitative, Urine (01/25/2025 9:30 AM EDT) Benzoylecgonine [address] [facility] Comment:[id number] ng/mL Cocaine Comments SEE NOTE [facility] Comment:NOTES AND COMMENTSTh is drug testing is for medical treatment only. Analysiswas performed as non-forensic testing and these resultsshould be used only by healthcare providers torender diagnosis or treatment, or to monitor progress ofmedical conditions.Cocaine Notes:Benzoylecgonine detected is consistent with the use of thedrug Cocaine.LDT Notes:Confirmation tests were developed and their analyticalperformance characteristics have been determined by [employer]. It has not been cleared orapproved by the FDA. This assay has been validated pursuantto the CLIA regulations and is used for clinical purposes.Healthcare Providers needing Interpretation assistance,please contact us at [phone] ( ) M-F,8am to 10pm ESTPERFORMING SITE:[facility] [employer] [facility], [address] [place] [phone] Codifier: MICHELLE GAUTAM MD, CLIA:[id number] Urine (Urine, Random) 01/25/2025 9:30 AM EDT 01/25/2025 11:21 AM EDT Amy Berry MD LAB URINE ORDERAB LES Final Result Performing Organization Address [facility]/ZIP Co de Phone Number [facility] [address] [place] [address] [phone] * (ABNORMAL) Hepatitis C Antibody with Reflex to HCV, RNA, Quantitative, Real- Time PCR (09/29/2024 3:37 PM EDT) Hepatitis C Antibody Reactive( A) Nonreactive [facility] Comment:Presumptive evidence of antibodies to HCV. Blood Venous blood specimen / Unknown 09/29/2024 3:37 PM EDT 09/29/2024 3:38 PM EDT Brent Fischer MD LAB BLOOD ORDERABL ES Final Result Performing Organization Address [facility] Co de Phone Number [facility] [address] [place] [phone] * HIV-1/2 Antigen and Antibodies, Fourth Generation, with Reflexes (09/29/2024 3:37 PM EDT) HIV AB/AG Nonreactive Nonreactive [facility] Comment:HIV-1 p24 Ag and/or HIV-1/HIV-2 Ab not detected.A test result that is nonreactive does not exclude thepossibility of exposure to or infection with HIV-1 and/orHIV-2. Nonreactive results in this assay for individualswith prior exposure to HIV-1 and/or HIV-2 may be due toantigen and antibody levels that are below the limit ofdetection of this assay.The [employer] HIV Ag/Ab Combo assay result andsupplemental assay results should be interpreted inconjunction with the patient's clinical presentation,history and other laboratory results. If the results areinconsistent with clinical evidence, additional testing issuggested to confirm the result. Blood Venous blood specimen / Unknown 09/29/2024 3:37 PM EDT 09/29/2024 3:38 PM EDT us Brent Fischer MD LAB BLOOD ORDERABL ES Final Result Performing Organization Address [facility]/ZIP Co de Phone Number [facility] [address] [place] [address] [phone] * (ABNORMAL) Lipid Panel, Standard (09/29/2024 3:37 PM EDT) Triglycerides 155(H) <150 mg/dL [facility] Comment:Desirable Triglyceri de: less than 150 mg/dLBorderline High Triglyceride 150-199 mg/dLHigh Triglyceride: 200-499 mg/dLVery High Triglyceride: greater than or equal to 5OO mg/dL Cholesterol 211(H) <200 mg/dL [facility] Comment:Desirable Cholestero l: less than 200 mg/dLBorderline High Cholesterol: 200-239 mg/dLHigh Cholesterol: greater than 239 mg/dL LDL Cholesterol Calculated 131(H) <100 mg/dL [facility] Comment:Desirable LDL: less than 100 mg/dLNear Optimal/Above Optimal LDL: 110- 129 mg/dLBorderline High LDL: 130-159 mg/dLHigh LDL: 160-189 mg/dLVery High LDL: greater than or equal to 190 mg/dL HDL Cholesterol 49 >40 mg/dL [facility] Comment:Desirable HDL: great er than 40 mg/dL Note: This HDL assay may give artificially low results in patients with liver disease. Blood Venous blood specimen / Unknown 09/29/2024 3:37 PM EDT 09/29/2024 3:38 PM EDT us Amy Berry MD LAB BLOOD ORDERAB LES Final Result Performing Organization Address City/[facility]/ZIP Co de Phone Number [facility] [address] [place] [address] [phone] * Hm Colonoscopy (01/06/2018 8:00 AM EDT) us Historical Provider HEALTH MAINTENANCE Final Result from Last 3 Months or Most Recently Relevant to Health Maintenance Insurance [address] [place] [employer]ARE < 65 [place] [phone] [address] [place], [place] [address] [place] [address] [place] Care Teams Overhead Garage Door Hanger Relationship Specialty Start Date End Date Amy Pickett MD [address] [place] [phone] PCP - General Internal Medicine 04/07/23
--- OUTSIDE RECORDS SUMMARY | 2025-03-03 07:20 | XMS_ITS | Encounter Summary ---
Author Organization [employer] Address [address] [facility] 7t [place] [address] Care Team Providers Care Cooler Servicer Name Role Phone Amy Pickett MD Primary Care Pro vider Encounter Details Date Type Department Care Team ([facility] st Contact Info) Description 10/01/[address] [facility] [address] [place], [place] [phone] Za Preston MD [address] [place] [address] Social History Tobacco Use Types Packs/Day Years [...] EDT Office Visit [facility] [address] [place] [address] documented as of this encounter Visit Diagnoses Not on filedocumented in this encounter Additional Health Concerns Assessment Noted Time PHQ-9 Depression Total Score: 10 024 9:41 AM EDT documented as of this encounter Care Teams Cooler Servicer Relationship Specialty Start Date End Date Amy Pickett MD [address] [place] [phone] PCP - General Internal Medicine 04/07/23 documented as of this encounter
--- OUTSIDE RECORDS SUMMARY | 2025-03-03 07:20 | XMS_ITS | Encounter Summary ---
Author Organization [employer] Address [address] [facility] 7t [place] [address] Care Team Providers Care Manager Lvn Name Role Phone Amy Pickett MD Primary [...] Description 03/29/2025 9:45 AM EDT Office Visit [facility] [address] [place] [phone] documented as of this encounter Visit Diagnoses Not on filedocumented in this encounter Additional Health Concerns Assessment Noted Time PHQ-9 Depression Total Score: 0 11/25/19 25 2:10 PM EDT documented as of this encounter Care Teams Manager Lvn Relationship Specialty Start Date End Date Amy Pickett MD [address] [place] [phone] PCP - General Internal Medicine 04/07/23 documented as of this encounter
--- OUTSIDE RECORDS SUMMARY | 2025-03-03 07:20 | XMS_ITS | Encounter Summary ---
Author Organization [employer] Address [address] [facility] 7t [place] [address] Care Team Providers Care Room Service Clerk Name Role Phone Amy Pickett MD Primary Care Pro vider Encounter Details Date Type Department Care Team ([facility] st Contact Info) Description 09/01/2024 Telephone [facility] [address] [place], [place] [phone] Amy Pickett MD [address] [place], [place] [phone] Social History Tobacco Use Types Packs/Day Years [...] Description 03/29/2025 9:45 AM EDT Office Visit [facility] [address] [place] [address] documented as of this encounter Visit Diagnoses Not on filedocumented in this encounter Additional Health Concerns Assessment Noted Time PHQ-9 Depression Total Score: 10 024 9:41 AM EDT documented as of this encounter Care Teams Room Service Clerk Relationship Specialty Start Date End Date Amy Pickett MD [address] [place] [phone] PCP - General Internal Medicine 04/07/23 documented as of this encounter
--- OUTSIDE RECORDS SUMMARY | 2025-03-03 07:20 | XMS_ITS | Clinical Summary ---
Author Organization [employer] Address [address] [place] [address] Care Team Providers Care Diffusion Operator Name Role Phone Ba Maria MD Primary Care Provider Surgical History Surgery Date Site/Laterality Comments FOOT SURGERY PROCEDURE: OR UNLISTED PROCEDURE FOOT/TOES; COMMENT: left foot bunion removal LIPOMA RESECTION PROCEDURE: SKIN TISSUE EXCISION(LIPOMA) OTHER SURGICAL HISTORY PROCEDURE: ---- OTHER ----; COMMENT: urethral surgeries done? three times in [facility] for difficulty urinating Medical History Medical History Date Comments Chronic back pain DX:Chronic alonso k pain Asthma DX:Asthma Anxiety DX:Anxiety; COMM ENT: follows at [facility] Family History Medical History Relation [...] age to complete this topic Care Teams Diffusion Operator Relationship Specialty Start Date End Date Ba Maria MD PCP - General Internal Medicine 10/26/12
--- OUTSIDE RECORDS SUMMARY | 2025-03-03 07:20 | XMS_ITS | Encounter Summary ---
Author Organization [employer] Address [address] [place] [address] 7 [place] [address] Care Team Providers Care Director Fixed Income Name Role Phone Amy Pickett MD Primary Care Pro vider Reason for Visit * Reason Onset Date Comments Appointment Request 10/05/2024 Encounter Details Date Type Department Care Team ([facility] st Contact Info) Description 10/05/2024 Telephone [facility] MEDICINE [address] [place], [place] [phone] Amy Pickett MD [address] [place] [address] Appointment Request Social History Tobacco Use Types [...] able to make it. Contact Isa at [phone] documented in this encounter Plan of Treatment Upcoming Encounters Date Type Department Care Team (Late st Contact Info) Description 03/29/2025 9:45 AM EDT Office Visit [facility] [address] [place] [address] documented as of this encounter Visit Diagnoses Not on filedocumented in this encounter Additional Health Concerns Assessment Noted Time PHQ-9 Depression Total Score: 10 024 9:41 AM EDT documented as of this encounter Care Teams Director Fixed Income Relationship Specialty Start Date End Date Amy Pickett MD [address] [place] [address] PCP - General Internal Medicine 04/07/23 documented as of this encounter
--- OUTSIDE RECORDS SUMMARY | 2025-03-03 07:20 | XMS_ITS | Encounter Summary ---
Author Organization [employer] Address [address] [facility] 7 [place] [address] Care Team Providers Care Auctioneer Art Name Role Phone Amy Pickett MD Primary Care Pro vider Reason for Visit * Reason Onset Date Comments Appointment Request 09/02/2023 Encounter Details Date Type Department Care Team ([facility] st Contact Info) Description 09/02/2023 Telephone [facility] MED[facility] [address] [place], [place] [phone] Amy Pickett MD 230 [place] [address] Appointment Request Social History Tobacco Use Types [...] t he electric, gas, oil or water [employer] threatened to shut off services in your [...] from pt requesting a transfer patient appointment. Drug Regulatory Affairs Specialist does not see any availability. Pt states he needs appointment as soon as possible due to controlled medication. States needs to be seen bya new provider to continue medication. Please contact pt at [phone] documented in this encounter Plan of Treatment Upcoming Encounters Date Type Department Care Team (Late st Contact Info) Description 03/29/2025 9:45 AM EDT Office Visit [facility] MED[facility] [address] [place] [phone] documented as of this encounter Visit Diagnoses Not on filedocumented in this encounter Additional Health Concerns Assessment Noted Time PHQ-9 Depression Total Score: 24 023 10:05 AM EDT documented as of this encounter Care Teams Auctioneer Art Relationship Specialty Start Date End Date Amy Pickett MD [address] [place] [id number] PCP - General Internal Medicine 04/07/23 documented as of this encounter
--- OUTSIDE RECORDS SUMMARY | 2025-03-03 07:20 | XMS_ITS | Encounter Summary ---
Author Organization [employer] Address [address] [facility] 7t [place] [address] Care Team Providers Care Flooring Professional Name Role Phone Amy Pickett MD Primary Care Pro vider Encounter Details Date Type Department Care Team ([facility] st Contact Info) Description 03/01/2025 Telephone [facility] [address] [place], [place] [phone] 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, RN 505 [place] [address] Social History Tobacco Use Types Packs/Day Years [...] 9:45 AM EDT Office Visit [facility] 230 [place] [address] documented as of this encounter Visit Diagnoses Not on filedocumented in this encounter Additional Health Concerns Assessment Noted Time PHQ-9 Depression Total Score: 0 11/25/19 25 2:10 PM EDT documented as of this encounter Care Teams Flooring Professional Relationship Specialty Start Date End Date Amy Pickett MD 230 [place] [address] PCP - General Internal Medicine 04/07/23 documented as of this encounter
--- OUTSIDE RECORDS SUMMARY | 2025-03-03 07:20 | XMS_ITS | Encounter Summary ---
Author Organization [employer] Address [address] [place] [address] 7 [place] [address] Care Team Providers Care Licensed Nuclear Control Room Operator Name Role Phone Amy Pickett MD Primary Care Pro vider Reason for Visit * Reason Onset Date Comments Med Refill 05/13/2024 Encounter Details Date Type Department Care Team ([facility] st Contact Info) Description 05/13/2024 Telephone [facility] MEDICINE 230 [place], [place] [phone] Amy Pickett MD 230 [place], [place] [phone] Med Refill Social History Tobacco Use Types [...] release tablet To be sent to: [facility]/pharmacy #[id number] - [address] documented in this encounter Plan of Treatment Upcoming Encounters Date Type Department Care Team (Late st Contact Info) Description 03/29/2025 9:45 AM EDT Office Visit [facility] MED[facility]INE 230 [place], [place] [phone] documented as of this encounter Visit Diagnoses Not on filedocumented in this encounter Additional Health Concerns Assessment Noted Time PHQ-9 Depression Total Score: 10 024 9:41 AM EDT documented as of this encounter Care Teams Licensed Nuclear Control Room Operator Relationship Specialty Start Date End Date Amy Pickett MD [address] [place], [place] [phone] PCP - General Internal Medicine 04/07/23 documented as of this encounter
--- OUTSIDE RECORDS SUMMARY | 2025-03-03 07:20 | XMS_ITS | Encounter Summary ---
Author Organization [employer] Address [address] [facility] 7t [place] [address] Care Team Providers Care Plane Captain Name Role Phone Elise Glover FIBERGLASS PRODUCT TESTER Primary Care Provider Amy Ware MD Primary Care Pro vider Reason for Visit * Reason Comments Med Change Request Encounter Details Date Type Department Care Team (Late st Contact Info) Description 03/03/2023 Refill [facility] [address] [place] [phone] Elise Glover FNP Essential hypertension Social History [...] 03/29/2025 9:45 AM EDT Office Visit [facility] MED[facility] [address] [place] [address] documented as of this encounter Visit Diagnoses Diagnosis Essential hypertension Unspecified essential hypertension documented in this encounter Additional Health Concerns Assessment Noted Time PHQ-9 Depression Total Score: 24 10/01/ 023 10:05 AM EDT documented as of this encounter Care Teams Plane Captain Relationship Specialty Start Date End Date Elise Glover FNP PCP - General Family Medicine 07/09/22 04/06/23 Amy Pickett MD [address] [place] [address] PCP - General Internal Medicine 04/07/23 documented as of this encounter
--- OUTSIDE RECORDS SUMMARY | 2025-03-03 07:20 | XMS_ITS | Encounter Summary ---
Author Organization [employer] Address [address] [facility] 7 [place] [address] Care Team Providers Care Tester Food Products Name Role Phone Amy Pickett MD Primary Care Pro vider Reason for Visit * Reason Onset Date Comments fyi 12/29/2024 Encounter Details Date Type Department Care Team ([facility] st Contact Info) Description 12/29/2024 Telephone [facility] MEDICINE 230 [place], [place] [phone] Amy Pickett MD 230 [place] [address] fyi Social History Tobacco Use Types Packs/Day [...] call placed to main number in chart. [employer]Y [employer] EXAMINER Domenica on HIPAA answered and states is [...] 12/29/2024 3:08 PM EDT Stevie Hernandez at [facility] [place] calling to inform that pt stated he did not want to be seen at [facility] [place] for pain management Any further questions contact [phone] documented in this encounter Plan of Treatment Upcoming Encounters Date Type Department Care Team (Late st Contact Info) Description 03/29/2025 9:45 AM EDT Office Visit [facility] [address] [place] [address] documented as of this encounter Visit Diagnoses Not on filedocumented in this encounter Additional Health Concerns Assessment Noted Time PHQ-9 Depression Total Score: 0 11/25/19 2:10 PM EDT documented as of this encounter Care Teams Tester Food Products Relationship Specialty Start Date End Date Amy Pickett MD [address] [place] [phone] PCP - General Internal Medicine 04/07/23 documented as of this encounter
--- OUTSIDE RECORDS SUMMARY | 2025-03-03 07:20 | XMS_ITS | Encounter Summary ---
Author Organization [employer] Address [address] [place] [address] 7 [place] [address] Care Team Providers Care Neurosurgery Research Director Name Role Phone Amy Pickett MD Primary Care Pro vider Reason for Visit * Reason Onset Date Comments Med Refill 02/24/2025 Encounter Details Date Type Department Care Team ([facility] st Contact Info) Description 02/24/2025 Telephone [facility] MEDICINE 230 [place], [place] [phone] Amy Pickett MD 230 [place], [place] [phone] Med Refill Social History Tobacco Use Types [...] immediate release tablet To be sent to: [facility]/pharmacy #[id number] - [address] documented in this encounter Plan of Treatment Upcoming Encounters Date Type Department Care Team (Late st Contact Info) Description 03/29/2025 9:45 AM EDT Office Visit [facility] MED[facility]INE 230 [place] [address] documented as of this encounter Visit Diagnoses Not on filedocumented in this encounter Additional Health Concerns Assessment Noted Time PHQ-9 Depression Total Score: 0 11/25/19 25 2:10 PM EDT documented as of this encounter Care Teams Neurosurgery Research Director Relationship Specialty Start Date End Date Amy Pickett MD [address] [place] [phone] PCP - General Internal Medicine 04/07/23 documented as of this encounter
--- OUTSIDE RECORDS SUMMARY | 2025-03-03 07:21 | XMS_ITS | Encounter Summary ---
Author Organization [employer] Address [address] [facility] 7 [place] [address] Care Team Providers Care Process Expert Name Role Phone Amy Pickett MD Primary Care Pro vider Reason for Visit * Reason Onset Date Comments Med Refill 02/11/2024 Encounter Details Date Type Department Care Team (Late st Contact Info) Description 02/11/2024 Telephone [facility] MED[facility] 230 [place], [place] [phone] Amy Pickett MD 230 [place], [place] [phone] Med Refill Social History Tobacco Use Types [...] immediate release tablet To be sent to: [facility]/pharmacy #[id number] - [address] documented in this encounter Plan of Treatment Upcoming Encounters Date Type Department Care Team (Late st Contact Info) Description 03/29/2025 9:45 AM EDT Office Visit [facility] 230 [place] [address] documented as of this encounter Visit Diagnoses Not on filedocumented in this encounter Additional Health Concerns Assessment Noted Time PHQ-9 Depression Total Score: 24 023 10:05 AM EDT documented as of this encounter Care Teams Process Expert Relationship Specialty Start Date End Date Amy Pickett MD 230 [place] [address] PCP - General Internal Medicine 04/07/23 documented as of this encounter
--- OUTSIDE RECORDS SUMMARY | 2025-03-03 07:21 | XMS_ITS | Encounter Summary ---
Author Organization [employer] Address [address] [place] [address] 7 [place] [address] Care Team Providers Care Cytology Technologist Name Role Phone Amy Pickett MD Primary Care Pro vider Reason for Visit * Reason Onset Date Comments Med Refill 08/06/2024 Encounter Details Date Type Department Care Team ([facility] st Contact Info) Description 08/06/2024 Telephone [facility] MED[facility]INE 230 [place], [place] [phone] Amy Pickett MD 230 [place], [place] [phone] Med Refill Social History Tobacco Use Types [...] 0.083% nebulizer solution To be sent to: [facility]/pharmacy #[id number] - [address] documented in this encounter Plan of Treatment Upcoming Encounters Date Type Department Care Team (Late st Contact Info) Description 03/29/2025 9:45 AM EDT Office Visit [address] [phone] documented as of this encounter Visit Diagnoses Not on filedocumented in this encounter Additional Health Concerns Assessment Noted Time PHQ-9 Depression Total Score: 10 024 9:41 AM EDT documented as of this encounter Care Teams Cytology Technologist Relationship Specialty Start Date End Date Amy Pickett MD [address] [place] [phone] PCP - General Internal Medicine 04/07/23 documented as of this encounter
--- OUTSIDE RECORDS SUMMARY | 2025-03-03 07:21 | XMS_ITS | Encounter Summary ---
Author Organization [employer] Address [address] [place] [address] 7t [place] [address] Care Team Providers Care Solar Sales Name Role Phone Elise Glover GENERAL EXPEDITOR Primary Care Provider Amy Ware MD Primary Care Pro vider Reason for Visit * Reason Onset Date Comments Durable Medical Equipment 10/07/2022 Encounter Details Date Type Department Care Team (Late st Contact Info) Description 10/07/2022 Telephone [facility] MEDICINE [address] [place] [address] Elise Glover, GENERAL EXPEDITOR Durable Medical Equipment Social History Tobacco Use [...] If any questions please contact Anabelle at [phone] documented in this encounter Plan of Treatment Upcoming Encounters Date Type Department Care Team (Late st Contact Info) Description 03/29/2025 9:45 AM EDT Office Visit [facility] MED[facility]INE [address] [place] [address] documented as of this encounter Visit Diagnoses Not on filedocumented in this encounter Additional Health Concerns Assessment Noted Time PHQ-9 Depression Total Score: 24 10/01/ 023 10:05 AM EDT documented as of this encounter Care Teams Solar Sales Relationship Specialty Start Date End Date Elise Glover FNP PCP - General Family Medicine 07/09/22 04/06/23 Amy Pickett MD 230 [place] [address] PCP - General Internal Medicine 04/07/23 documented as of this encounter
--- OUTSIDE RECORDS SUMMARY | 2025-03-03 07:21 | XMS_ITS | Encounter Summary ---
Author Organization [employer] Address [address] [place] [address] 7 [place] [address] Care Team Providers Care Forestry Aide Name Role Phone Elise Glover FOREST ECONOMIST Primary Care Provider Amy Ware MD Primary Care Pro vider Reason for Visit * Reason Onset Date Comments triage 08/22/2022 Encounter Details Date Type Department Care Team (Late st Contact Info) Description 08/22/2022 Telephone [facility] MEDICINE [address] [place] [address] [phone] Elise Glover FNP triage Social History Tobacco [...] 9:45 AM EDT Office Visit [facility] [address] [place] [address] [phone] documented as of this encounter Visit Diagnoses Not on filedocumented in this encounter Care Teams Forestry Aide Relationship Specialty Start Date End Date Elise Glover FNP PCP - General Family Medicine 07/09/22 04/06/23 Amy Pickett MD [address] [place] [phone] PCP - General Internal Medicine 04/07/23 documented as of this encounter
== END 2025-03-03 07:14 | disposition home or self-care (01) ==
LOC: HO.MRI 07:13
PROVIDERS: PCP Student in an Organized Health Care Education/Training Program; Visit Provider Student in an Organized Health Care Education/Training Program
DX: Z13.89 Encounter for screening for other disorder (principal)

== ENCOUNTER 2025-03-04 15:52 | Emergency (ER) | payer OTHER, SELFPAY ==
--- OUTSIDE RECORDS SUMMARY | 2025-03-01 09:10 | XMS_ITS | Encounter Summary ---
Author Organization [employer] Address [address] [place] [address] Care Team Providers Care Sole Blacker Name Role Phone Amy Pickett MD Primary Care Pro vider Reason for Visit * Reason Comments DETECTIVE Encounter Details Date Type Department Care Team (Latest Contact Info) Description 03/01/2025 9:10 AM EDT Clinical Support [facility] [address] [place] [address] 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 RN [address] [place] [address] joint terminal attack controller 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 Social History [...] 09/16/23 Group Topic: Behavioral Health Presenter: Bridgette Shearer, [facility] Team -used to see NS at [facility] # -per pt seen in 06/2024 states was seen but not recommended surgery --I called today [facility] NS today to reeval surgery option [...] as prescribed. Specialists: Saw RUBEN Padilla at [facility] 11/17/23 for lower back radiculopathy Scheduled to see NSG Dr. Prieto at [facility] to discuss C spine fracture seen [...] this month -used to see NS at [facility] # [phone] -per pt seen in 06/2024 states was [...] List Items Addressed This Visit Mental Health penitentiary 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 Overview Dx: chronic neck, low back pain, LE claudication Rx: Oxycodone 15mg IR q 6 hours Last DETECTIVE agreement: 09/28/24 Tier: 1 (monthly DETECTIVE visits) Additional considerations: Alprazolam 1mg for anxiety [...] root compression . Seen by Neurosurgery at [facility], note pending Referred to Pain Management November 2024 Current Assessment & Plan -Good engagement and participation with Group Medical Visit model -Encouraged multifactorial approach to pain control including pharm and non- pharm modalities -Pill count as expected, Utox pos cocaine. Confirmatory testing sent. See paint mixer hand. Relevant Orders Drug Monitoring, Cocaine Metabolite, Quantitative, Urine POCT ROBIN-14 Urine Drug Screen (Completed) Follow up: 1 month for Chronic Pain Group Visits. Follow up as scheduled with PCP, sooner as needed. * 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 RN - 03/01/2025 9:10 AM EDT SUBJECTIVE: Zain Lazcano is a 59 y.o. year old male who presents for DETECTIVE Patient came in to the chronic pain group visit, but stated he has another appointment and can't stay for the group today. Preferred language for medical information: New Zealander Interpreted needed: No Zain Lazcano does report adherence to Oxycodone 15 mg, take 1 tablet every 6 hours PRN, last refilled 02/25/25. The patient last took Oxycodone on: 03/01/25 OBJECTIVE: PRINTED CIRCUIT BOARD ASSEMBLY REPAIRER checked: 03/01/2025 Pill count completed for Oxycodone , count today is 94 , anticipated count should be 94, this is asexpected. Last PCP visit: 02/10/25 Controlled substance agreement signed: Controlled Substance Agreement 10/13/2024 DETECTIVE Tier: 1 Current Medications[1] Marijuana use: Yes [...] MAGGIE confirmation. ASSESSMENT: Encounter Diagnosis Name Primary? joint terminal attack controller 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 PLAN: Information on pain group given: Yes Information on acupuncture given: Previously discussed Narcan education provided: Previously discussed Narcan prescription: active Zain Lazcano will continue taking medication as prescribed and follow up at the next DETECTIVE visit or sooner if needed. Zain Lazcano [...] Rfl: 2 Nebulizers (Comp-Air Elite Compact Neb) [facility], , Disp: , Rfl: nicotine polacrilex (Commit) [...] days., Disp: 112 tablet, Rfl: 0 pancrelipase, Ole-Vflr-Qkup, (Creon) 6301-6790 units capsule, Take 1 capsule by mouth [...] Description 03/29/2025 9:45 AM EDT Office Visit [facility] [address] [place] [address] Scheduled Orders Name Type Priority Associated Diagnoses Orde r Schedule Drug Monitoring, Cocaine Metabolite, Quantitative, Urine Lab Routine penitentiary 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 Ordered: 03/01/2025 documented as of this encounter Procedures Procedure Name Priority Date/Time Associated Diagnosis Comments POCT ROBIN-14 URINE DRUG SCREEN Routine 03/01/2025 10:10 AM EDT joint terminal attack controller 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 documented in [...] - 03/01/2025 10:10 AM EDT .UTOX cup Lot#[id number] Exp. 04/12/26 Internal Pass Control Amy Berry MD POINT OF CARE SOHA T ENTER/EDIT ORDERABLES Final Result documented in this encounter Visit Diagnoses Diagnosis joint terminal attack controller 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 documented in this encounter Additional Health Concerns Assessment Noted Time PHQ-9 Depression Total Score: 0 11/25/19 25 2:10 PM EDT documented as of this encounter Care Teams Sole Blacker Relationship Specialty Start Date End Date Amy Pickett MD [address] [place] [phone] PCP - General Internal Medicine 04/07/23 documented as of this encounter
[2025-03-04 16:04] VITALS: BP 146/91; PULSE 97; RESP 18; TEMP 36.3; O2SAT 97
--- NOTE | 2025-03-04 16:14 | ED.GENADULT ---
HPI - General Adult General Chief complaint: Extremity Problem Stated complaint: Shoulder pain Time Seen by Provider: 03/04/25 16:10 Source: patient, RN notes reviewed and old records reviewed Mode of arrival: ambulatory Limitations: no limitations History of Present Illness ED Provider: Savi AARGON narrative: 59-year-old male presents for evaluation of right shoulder pain. He reports this is a chronic issue. He takes oxycodone that has not been helping his pain. Denies any recent falls or injuries. He was due to have an MRI however was told that he could not get 1 because he has a stimulator with the batter that has not compatible He is due to see his provider on [facility] in [place] to have the battery changed In the meantime he reports that his pain has been worsening and keeping him up at night. He was seen here about a month ago and was given prednisone and a shot of Toradol. He reports that this helped his pain greatly for at least a few weeks Related Data Home Medications ?Medication ?Instructions ?Recorded ?Confirmed cholecalciferol (vitamin D3) 50 50 mcg PO DAILY 05/22/20 09/29/24 mcg (2,000 unit) capsule fluticasone propionate 220 1 puff inhalation BID 05/22/20 09/29/24 mcg/actuation HFA aerosol inhaler (Flovent HFA) oxycodone 15 mg tablet 15 mg PO Q6H 05/22/20 09/29/24 albuterol sulfate 2.5 mg/3 mL 1 vial inhalation QID 07/19/20 09/29/24 (0.083 %) solution for nebulization multivitamin (Daily-Petra tablet) 1 tab PO DAILY 07/19/20 09/29/24 divalproex 500 mg tablet,delayed 1,000 mg PO BID 08/29/21 09/29/24 release fluoxetine 20 mg capsule 20 mg PO DAILY 08/29/21 09/29/24 alprazolam 1 mg tablet 1 mg PO BID PRN Anxiety 10/08/21 09/29/24 escitalopram oxalate 20 mg tablet 20 mg PO QAM 06/26/22 09/29/24 magnesium oxide 400 mg (241.3 mg 400 mg PO DAILY 06/26/22 09/29/24 magnesium) tablet lisinopril 5 mg tablet 10 mg PO BID 07/17/22 09/29/24 nebulizers 08/29/22 09/29/24 atorvastatin 40 mg tablet 40 mg PO DAILY 10/15/24 clopidogrel 75 mg tablet 75 mg PO DAILY 10/15/24 clotrimazole 1 % topical cream appl topical DAILY 10/15/24 cyanocobalamin (vitamin B-12) 1,000 mcg PO DAILY 10/15/24 1,000 mcg tablet hydroxyzine HCl 10 mg tablet 10 mg PO BID 10/15/24 loratadine 10 mg tablet 10 mg PO DAILY 10/15/24 olmesartan 20 mg tablet 20 mg PO DAILY 10/15/24 rimegepant 75 mg disintegrating 75 mg PO DAILY PRN 10/15/24 tablet (Nurtec ODT) Previous Rx's ?Medication ?Instructions ?Recorded tamsulosin 0.4 mg capsule 0.4 mg PO DAILY 30 days #30 caps 06/26/22 sumatriptan succinate 100 mg 100 mg PO .COMPLEX #14 tabs 03/20/23 tablet (Imitrex) cyclobenzaprine 5 mg tablet 5 mg PO BEDTIME PRN muscle spasm 10/01/23 #7 tabs gsxmcw-xbmcyzhs-epbvrge 1 cap PO QID 30 days #120 caps 10/29/23 24,000-76,000-120,000 unit capsule,delayed rel (Creon) fluticasone fur. 200 mcg-umeclid 1 inh inhalation DAILY 30 days #60 04/28/24 62.5 mcg-vilant 25 mcg ea inhalat.powder (Trelegy Ellipta) ipratropium 20 mcg-albuterol 100 1 puff inhalation QID 30 days #4 07/12/24 mcg/actuation mist for inhalation grams (Combivent Respimat) budesonide 0.5 mg/2 mL suspension 0.5 mg (2 mL) inhalation BID 30 10/14/24 for nebulization days #120 mL doxycycline hyclate 100 mg capsule 100 mg PO BID 10 days #20 caps 10/14/24 ipratropium 0.5 mg-albuterol 3 mg 3 ml inhalation BID 30 days #180 mL 10/14/24 (2.5 mg base)/3 mL nebulization soln nicotine 21 mg/24 hr daily 1 patch transdermal DAILY 28 days 10/14/24 transdermal patch #28 ea prednisone 20 mg tablet See Rx Instructions PO DAILY 10 10/14/24 days #15 tabs dexlansoprazole 60 mg 60 mg PO DAILY #90 caps 10/15/24 capsule,biphase delayed release dicyclomine 20 mg tablet 20 mg PO QID 30 days #120 tabs 10/15/24 famotidine 40 mg tablet 40 mg PO BEDTIME #90 tabs 10/15/24 amoxicillin 875 mg-potassium 1 tab PO BID 10 days #20 tabs 10/26/24 clavulanate 125 mg tablet prednisone 10 mg tablet See Rx Instructions PO DAILY 18 10/26/24 days #63 tabs ondansetron HCl 4 mg tablet 4 mg PO BID PRN for 11/22/24 nausea/vomiting #60 tabs cyclobenzaprine 10 mg tablet 10 mg PO TID PRN muscle spasm #20 01/27/25 tabs prednisone 20 mg tablet 40 mg (2 x 20 mg) PO DAILY #10 tabs 01/27/25 prednisone 20 mg tablet 40 mg (2 x 20 mg) PO DAILY #10 tabs 03/04/25 Allergies Allergy/AdvReac Type Severity Reaction Status Date / Time cat dander (CATS) Allergy Unknown UNKNOWN Verified 03/04/25 16:06 dog dander (DOGS) Allergy Unknown UNKNOWN Verified 03/04/25 16:06 pollen extracts (POLLEN) Allergy Unknown UNKNOWN Verified 03/04/25 16:06 tree and shrub pollen Allergy sneeze Verified 03/04/25 16:06 ibuprofen AdvReac causes Verified 03/04/25 16:06 stomach to bleed Review of Systems Musculoskeletal: Musculoskeletal: Reports arthralgias, Reports joint swelling and Reports limited range of motion PMFSH Past Medical History Medical History Chest pain Nicotine dependence, cigarettes, uncomplicated Nausea and vomiting Dyspnea Photophobia Headache Syncope Dysphagia Seizure Lipoma of back STEPHON (obstructive sleep apnea) COPD (chronic obstructive pulmonary disease) Post herpetic neuralgia Multiple lipomas Osteoarthritis Gout History of peptic ulcer disease Hx of irritable bowel syndrome Chronic back pain Hx of insomnia History of panic attacks History of anxiety History of depression Asthma High cholesterol Hypertension Urinary retention Enlarged prostate Arthritis Slow urinary stream Marijuana use Alcohol abuse H/O ulcer disease Left flank pain Trochanteric bursitis, left hip Epidermal cyst Abdominal wall bulge Esophageal dysphagia Esophageal spasm Short frenulum of penis Balanitis Elevated blood pressure reading in office with diagnosis of hypertension Thalamic pain syndrome Abnormal loss of weight Painful orthopaedic hardware Pain in unspecified toe(s) Incisional pain Surgical History S/P placement of nerve stimulator H/O neck surgery Hx of arthroscopy of left knee H/O breast surgery S/P excision of lipoma History of bunionectomy History of cystoscopy History of colonoscopy History of esophagogastroduodenoscopy (EGD) Family History Family History Family/Other Cancer Diabetes AIDS Brother Diabetes Myocardial infarction Father Enlarged prostate Mother Diabetes Asthma Social History Social History Are you a primary childbirth and infant care teacher to a significant other at home: No Do you presently have visiting nurse or other home services: No Alcohol intake: never Patient Tobacco Use Status: Current everyday Tobacco user Cigarettes Per Day: 4 Years Smoked: (onset 16yo, 1ppd x 42yrs, now 1/2ppd - 40pyh) Substance Use Type: Marijuana Advance Directives: No Advance Directives Information Provided: Yes service: No Current occupational status: unemployed Physical Exam ED Vital Signs: Vital Signs - 24 hr 03/04/25 16:04 03/04/25 16:44 Temperature 97.3 F 97.3 F Pulse Rate 97 97 Respiratory Rate 18 18 Blood Pressure 146/91 H 146/91 H Pulse Oximetry 97 97 Oxygen Delivery Method Room Air Room Air BMI result Body Mass Index 30.0 Const General: healthy appearing, comfortable, no acute distress, alert and awake Nutritional Appearance: well nourished Orientation/consciousness: patient oriented x3 HENMT Head: Yes normocephalic and Yes atraumatic Eyes Eyelids: Yes eyelids normal Conjunctivae: conjunctivae normal Sclerae: sclerae normal Corneas: corneas normal Pupils: Equal, round and reactive pupils present EOM: EOMs intact bilaterally Neck Neck: Yes full ROM Resp Effort & Inspection: normal respiratory effort, able to speak in complete sentences and not labored Skin General skin exam: elasticity normal Neuro General: patient oriented x3 Cranial nerves: Yes Equal, round and reactive pupils present and Yes Bilaterally intact EOM present Cognition (Neuro): normal cognition Extrem Other: There was no obvious deformity to the right shoulder. The patient has tenderness to the right anterior shoulder. Slightly limited range of motion with abduction of upper extremity at the shoulder. Full range of motion with flexion-extension of the right arm Medications Administered Discontinued Medications Generic Name Dose Route Start Last Admin Trade Name Facundoq PRN Reason Stop Dose Admin Ketorolac Tromethamine 15 mg 03/04/25 16:10 03/04/25 16:43 Ketorolac Tromethamine 15 Mg/Ml Vial IM 03/04/25 16:11 15 mg ONCE ONE Administration Medical Decision Making Medical Decision Making MDM Narrative: 59-year-old male presents for evaluation of atraumatic right shoulder pain which is chronic for him. There was no evidence of infectious process, no recent trauma. I discussed short-term treatment with the patient, he does have a history of GI bleeds from chronic NSAID use. I discussed this with him and a 1 time dose of ketorolac. The patient reports he has not had any GI bleeding for several years and would like to have the ketorolac. I discussed that prednisone is not a good long-term management for chronic pain but we I will be willing to give him a short 5 day course while he sorts out his outpatient providers and MRI. No indication for emergent x-ray at this time Differential Diagnosis Differential Diagnoses: The differential diagnosis associated with the presentation includes Chronic pain Shoulder pain Arthralgia Opioid dependence Discharge Plan Discharge Clinical Impression: Chronic pain in right shoulder Patient Disposition: Home, Self-Care Instructions: Chronic Pain (ED) Additional Instructions: You were given an injection of Toradol and a prescription for prednisone. I recommend taking an antacid while taking these medications due to your history of stomach bleeding. Follow up with your primary doctor and your outpatient providers You would benefit from an outpatient MRI. Prescriptions: New prednisone 20 mg tablet 40 mg PO DAILY Qty: 10 0RF No Action sumatriptan succinate [Imitrex] 100 mg tablet 100 mg PO .COMPLEX Qty: 14 3RF Rx Instructions: 100 mg orally; amoxicillin-pot clavulanate 875-125 mg tablet 1 tab PO BID 10 Days Qty: 20 0RF prednisone 10 mg tablet See Rx Instructions PO DAILY 18 Days Qty: 63 0RF Rx Instructions: PO daily; Take 6 tabs daily x 3 days, then 5 tabs x 3 days, then 4 tabs x 3 days, then 3 tabs x 3 days, then 2 tabs daily x 3 days, then 1 tab x 3 days to complete. ondansetron HCl 4 mg tablet 4 mg PO BID PRN (Reason: for nausea/vomiting) Qty: 60 0RF multivitamin [Daily-Petra] Tablet 1 tab PO DAILY albuterol sulfate 2.5 mg /3 mL (0.083 %) solution for nebulization 1 vial inhalation QID alprazolam 1 mg tablet 1 mg PO BID PRN (Reason: Anxiety) lisinopril 5 mg tablet 10 mg PO BID cyclobenzaprine 5 mg tablet 5 mg PO BEDTIME PRN (Reason: muscle spasm) Qty: 7 0RF cyclobenzaprine 10 mg tablet 10 mg PO TID PRN (Reason: muscle spasm) Qty: 20 0RF prednisone 20 mg tablet 40 mg PO DAILY Qty: 10 0RF oxycodone 15 mg tablet 15 mg PO Q6H cholecalciferol (vitamin D3) 50 mcg (2,000 unit) capsule 50 mcg PO DAILY Flovent HFA 220 mcg/actuation HFA aerosol inhaler 1 puff inhalation BID fluoxetine 20 mg capsule 20 mg PO DAILY divalproex 500 mg tablet,delayed release (DR/EC) 1,000 mg PO BID magnesium oxide 400 mg (241.3 mg magnesium) tablet 400 mg PO DAILY escitalopram oxalate 20 mg tablet 20 mg PO QAM tamsulosin 0.4 mg capsule 0.4 mg PO DAILY 30 Days Qty: 30 3RF (DME) nebulizers Misc See Rx Instructions .Route Rx Instructions: As directed Trelegy Ellipta 200-62.5-25 mcg blister with device 1 inh inhalation DAILY 30 Days Qty: 60 12RF Combivent Respimat 20-100 mcg/actuation mist 1 puff inhalation QID 30 Days Qty: 4 11RF olmesartan 20 mg tablet 20 mg PO DAILY clotrimazole 1 % cream topical DAILY hydroxyzine HCl 10 mg tablet 10 mg PO BID atorvastatin 40 mg tablet 40 mg PO DAILY cyanocobalamin (vitamin B-12) 1,000 mcg tablet 1,000 mcg PO DAILY Nurtec ODT 75 mg tablet,disintegrating 75 mg PO DAILY PRN clopidogrel 75 mg tablet 75 mg PO DAILY loratadine 10 mg tablet 10 mg PO DAILY dexlansoprazole 60 mg capsule,biphase delayed releas 60 mg PO DAILY Qty: 90 1RF famotidine 40 mg tablet 40 mg PO BEDTIME Qty: 90 2RF dicyclomine 20 mg tablet 20 mg PO QID 30 Days Qty: 120 6RF Creon 24,000-76,000 -120,000 unit capsule,delayed release(DR/EC) 1 cap PO QID 30 Days Qty: 120 6RF Rx Instructions: administer with meals and/or snacks nicotine 21 mg/24 hr patch 24 hour 1 patch transdermal DAILY 28 Days Qty: 28 4RF prednisone 20 mg tablet See Rx Instructions PO DAILY 10 Days Qty: 15 0RF Rx Instructions: PO daily; Take 2 tabs daily x 5 days, then 1 tablet daily x 5 days doxycycline hyclate 100 mg capsule 100 mg PO BID 10 Days Qty: 20 0RF ipratropium-albuterol 0.5 mg-3 mg(2.5 mg base)/3 mL solution for nebulization 3 ml inhalation BID 30 Days Qty: 180 11RF budesonide 0.5 mg/2 mL suspension for nebulization 0.5 mg inhalation BID 30 Days Qty: 120 11RF Interventions: ED Discharge Assessment Last Done: 03/04/25 16:44 Discharge Date/Time: 03/04/25 16:44 Print Language: Guamanian
--- OUTSIDE RECORDS SUMMARY | 2025-03-04 16:22 | XMS_ITS | Encounter Summary ---
Author Organization [employer] Address [address] [place] [address] 7 [place] [address] Care Team Providers Care Child Life Specialist Name Role Phone Amy Pickett MD Primary Care Pro vider Reason for Visit * Reason Onset Date Comments Med Refill 05/13/2024 Encounter Details Date Type Department Care Team ([facility] st Contact Info) Description 05/13/2024 Telephone [facility] MEDICINE [address] [place], [place] [phone] Amy Pickett MD [address] [place], [place] [phone] Med Refill Social History Tobacco Use Types [...] immediate release tablet To be sent to: [facility]/pharmacy #1972 - [address] documented in this encounter Plan of Treatment Upcoming Encounters Date Type Department Care Team (Late st Contact Info) Description 03/29/2025 9:45 AM EDT Office Visit [facility] MED[facility]INE [address] [place], [place] [phone] documented as of this encounter Visit Diagnoses Not on filedocumented in this encounter Additional Health Concerns Assessment Noted Time PHQ-9 Depression Total Score: 10 024 9:41 AM EDT documented as of this encounter Care Teams Child Life Specialist Relationship Specialty Start Date End Date Amy Pickett MD [address] [place], [place] [phone] PCP - General Internal Medicine 04/07/23 documented as of this encounter
--- OUTSIDE RECORDS SUMMARY | 2025-03-04 16:22 | XMS_ITS | Encounter Summary ---
Author Organization [employer] Address [address] [facility] 7 [place] [address] Care Team Providers Care Finance Manager Name Role Phone Amy Pickett MD Primary Care Pro vider Reason for Visit * Reason Comments Med Refill Encounter Details Date Type Department Care Team ([facility] st Contact Info) Description 06/17/2024 Refill [facility] MEDICINE [address] [place], [place] [phone] Amy Pickett MD [address] [place] [address] Social History Tobacco Use Types Packs/Day Years [...] [facility] MED[facility]INE [address] [place] [address] documented as of this encounter Visit Diagnoses Not on filedocumented in this encounter Additional Health Concerns Assessment Noted Time PHQ-9 Depression Total Score: 10 024 9:41 AM EDT documented as of this encounter Care Teams Finance Manager Relationship Specialty Start Date End Date Amy Pickett MD [address] [place] [address] PCP - General Internal Medicine 04/07/23 documented as of this encounter
--- OUTSIDE RECORDS SUMMARY | 2025-03-04 16:22 | XMS_ITS | Encounter Summary ---
Author Organization [employer] Address [address] [place] [address] 7 [place] [address] Care Team Providers Care Cuffer Name Role Phone Amy Pickett MD Primary Care Pro vider Reason for Visit * Reason Onset Date Comments Med Refill 2024 Encounter Details Date Type Department Care Team ([facility] st Contact Info) Description 2024 Telephone [facility] MEDICINE [address] [place], [place] [phone] Amy Pickett MD [address] [place], [place] [phone] Med Refill Social History Tobacco Use Types [...] immediate release tablet To be sent to: [facility]/pharmacy #[id number] documented in this encounter Plan of Treatment Upcoming Encounters Date Type Department Care Team (Late st Contact Info) Description 03/29/2025 9:45 AM EDT Office Visit [facility] [address] [place], [place] [phone] documented as of this encounter Visit Diagnoses Not on filedocumented in this encounter Additional Health Concerns Assessment Noted Time PHQ-9 Depression Total Score: 0 11/25/19 25 2:10 PM EDT documented as of this encounter Care Teams Cuffer Relationship Specialty Start Date End Date Amy Pickett MD [address] [place], [place] [phone] PCP - General Internal Medicine 04/07/23 documented as of this encounter
--- OUTSIDE RECORDS SUMMARY | 2025-03-04 16:22 | XMS_ITS | Encounter Summary ---
Author Organization [employer] Address [address] [facility] 7 [place] [address] Care Team Providers Care Manager Residential Name Role Phone Amy Pickett MD Primary Care Pro vider Reason for Visit * Reason Onset Date Comments fyi 12/29/2024 Encounter Details Date Type Department Care Team ([facility] st Contact Info) Description 12/29/2024 Telephone [facility] MEDICINE [address] [place], [place] [phone] Amy Pickett MD [address] [place] [address] fyi Social History Tobacco Use Types Packs/Day [...] call placed to main number in chart. PRINCIPAL CLERK Domenica on HIPAA answered and states is [...] 12/29/2024 3:08 PM EDT Stevie Hernandez at [facility] calling to inform that pt stated he did not want to be seen at [facility] for pain management Any further questions contact [phone] documented in this encounter Plan of Treatment Upcoming Encounters Date Type Department Care Team (Late st Contact Info) Description 03/29/2025 9:45 AM EDT Office Visit [facility] MEDICINE [address] [place] [address] documented as of this encounter Visit Diagnoses Not on filedocumented in this encounter Additional Health Concerns Assessment Noted Time PHQ-9 Depression Total Score: 0 11/25/19 2:10 PM EDT documented as of this encounter Care Teams Manager Residential Relationship Specialty Start Date End Date Amy Pickett MD [address] [place] [id number] PCP - General Internal Medicine 04/07/23 documented as of this encounter
--- OUTSIDE RECORDS SUMMARY | 2025-03-04 16:22 | XMS_ITS | Encounter Summary ---
Author Organization [employer] Address [address] [place] [address] 7 [place] [address] Care Team Providers Care Assistant Professor Of German Name Role Phone Amy Pickett MD Primary Care Pro vider Reason for Visit * Reason Onset Date Comments Appointment Request 10/05/2024 Encounter Details Date Type Department Care Team ([facility] st Contact Info) Description 10/05/2024 Telephone [facility] [address] [place], [place] [phone] Amy Pickett MD [address] [place] [address] Appointment Request Social History Tobacco Use Types [...] able to make it. Contact Isa at [phone] documented in this encounter Plan of Treatment Upcoming Encounters Date Type Department Care Team (Late st Contact Info) Description 03/29/2025 9:45 AM EDT Office Visit [facility] [address] [place] [address] documented as of this encounter Visit Diagnoses Not on filedocumented in this encounter Additional Health Concerns Assessment Noted Time PHQ-9 Depression Total Score: 10 024 9:41 AM EDT documented as of this encounter Care Teams Assistant Professor Of German Relationship Specialty Start Date End Date Amy iPckett MD [address] [place] [address] PCP - General Internal Medicine 04/07/23 documented as of this encounter
--- OUTSIDE RECORDS SUMMARY | 2025-03-04 16:22 | XMS_ITS | Encounter Summary ---
Author Organization [employer] Address [address] [facility] 7t [place] [address] Care Team Providers Care Registered Health Nurse Name Role Phone Amy Pickett MD Primary Care Pro vider Encounter Details Date Type Department Care Team ([facility] st Contact Info) Description 10/01/2024 Orders Only [facility] [address] [place], [place] [phone] Za Preston MD [address] [place] [address] Social History Tobacco Use Types Packs/Day Years [...] Description 03/29/2025 9:45 AM EDT Office Visit [facility] MEDICINE [address] [place] [phone] documented as of this encounter Visit Diagnoses Not on filedocumented in this encounter Additional Health Concerns Assessment Noted Time PHQ-9 Depression Total Score: 10 024 9:41 AM EDT documented as of this encounter Care Teams Registered Health Nurse Relationship Specialty Start Date End Date Amy Pickett MD [address] [place] [id number] PCP - General Internal Medicine 04/07/23 documented as of this encounter
--- OUTSIDE RECORDS SUMMARY | 2025-03-04 16:22 | XMS_ITS | Encounter Summary ---
Author Organization [employer] Address [address] [place] [address] 7 [place] [address] Care Team Providers Care Homeopathic Doctor Name Role Phone Amy Pickett MD Primary Care Pro vider Reason for Visit * Reason Onset Date Comments Med Refill 08/06/2024 Encounter Details Date Type Department Care Team ([facility] st Contact Info) Description 08/06/2024 Telephone [facility] MEDICINE [address] [place], [place] [phone] Amy Pickett MD [address] [place], [place] [phone] Med Refill Social History Tobacco Use Types [...] 0.083% nebulizer solution To be sent to: [facility]/pharmacy #1972 - [address] documented in this encounter Plan of Treatment Upcoming Encounters Date Type Department Care Team (Late st Contact Info) Description 03/29/2025 9:45 AM EDT Office Visit [address] [phone] documented as of this encounter Visit Diagnoses Not on filedocumented in this encounter Additional Health Concerns Assessment Noted Time PHQ-9 Depression Total Score: 10 024 9:41 AM EDT documented as of this encounter Care Teams Homeopathic Doctor Relationship Specialty Start Date End Date Amy Pickett MD [address] [place] [id number] PCP - General Internal Medicine 04/07/23 documented as of this encounter
--- OUTSIDE RECORDS SUMMARY | 2025-03-04 16:22 | XMS_ITS | Encounter Summary ---
Author Organization [email or web address] Address [address] [facility] 7 [place] [address] Care Team Providers Care Network Technical Analyst Name Role Phone Amy Pickett MD Primary Care Pro vider Reason for Visit * Reason Onset Date Comments Med Refill 02/11/2024 Encounter Details Date Type Department Care Team (Late st Contact Info) Description 02/11/2024 Telephone [facility] [address] [place], [place] [phone] Amy Pickett MD [address] [place], [place] [phone] Med Refill Social History Tobacco Use Types [...] immediate release tablet To be sent to: [facility]/pharmacy #[id number] - [address] documented in this encounter Plan of Treatment Upcoming Encounters Date Type Department Care Team (Late st Contact Info) Description 03/29/2025 9:45 AM EDT Office Visit [facility] [address] [place] [address] documented as of this encounter Visit Diagnoses Not on filedocumented in this encounter Additional Health Concerns Assessment Noted Time PHQ-9 Depression Total Score: 24 023 10:05 AM EDT documented as of this encounter Care Teams Network Technical Analyst Relationship Specialty Start Date End Date Amy Pickett MD [address] [place] [address] PCP - General Internal Medicine 04/07/23 documented as of this encounter
--- OUTSIDE RECORDS SUMMARY | 2025-03-04 16:22 | XMS_ITS | Encounter Summary ---
Author Organization [employer] Address [address] [place] [address] 7 [place] [address] Care Team Providers Care Hide Worker Name Role Phone Amy Pickett MD Primary Care Pro vider Reason for Visit * Reason Onset Date Comments Med Refill 10/27/2024 Encounter Details Date Type Department Care Team ([facility] st Contact Info) Description 10/27/2024 Telephone [facility] MEDICINE [address] [place], [place] [phone] Amy Pickett MD [address] [place], [place] [phone] Med Refill Social History Tobacco Use Types [...] immediate release tablet To be sent to: [facility]/pharmacy #[id number] documented in this encounter Plan of Treatment Upcoming Encounters Date Type Department Care Team (Late st Contact Info) Description 03/29/2025 9:45 AM EDT Office Visit [facility] MEDICINE [address] [place] [address] documented as of this encounter Visit Diagnoses Not on filedocumented in this encounter Additional Health Concerns Assessment Noted Time PHQ-9 Depression Total Score: 10 024 9:41 AM EDT documented as of this encounter Care Teams Hide Worker Relationship Specialty Start Date End Date Amy Pickett MD [address] [place] [address] PCP - General Internal Medicine 04/07/23 documented as of this encounter
--- OUTSIDE RECORDS SUMMARY | 2025-03-04 16:22 | XMS_ITS | Encounter Summary ---
Author Organization [employer] Address [address] [place] [address] Care Team Providers Care Pr Specialist Name Role Phone Amy Pickett MD Primary Care Pro vider Encounter Details Date Type Department Care Team (Late st Contact Info) Description 06/24/2024 Orders Only [facility] MEDICINE [address] [place] [address] Provider, MD Bryan Social History Tobacco Use [...] 9:45 AM EDT Office Visit [facility] MEDICINE [address] [place] [address] documented as of this encounter Procedures Procedure [...] documented as of this encounter Care Teams Pr Specialist Relationship Specialty Start Date End Date Amy Pickett MD [address] [place] [address] PCP - General Internal Medicine 04/07/23 documented as of this encounter
--- OUTSIDE RECORDS SUMMARY | 2025-03-04 16:22 | XMS_ITS | Encounter Summary ---
Author Organization [employer] Address [address] [facility] 7t [place] [address] Care Team Providers Care Reimbursement Auditor Name Role Phone Amy Pickett MD Primary Care Pro vider Encounter Details Date Type Department Care Team ([facility] st Contact Info) Description 03/01/2025 Telephone [facility]EDS [address] [place], [place] [phone] 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, RN [address] [place] [address] Social History Tobacco Use Types Packs/Day Years [...] 9:45 AM EDT Office Visit [facility] MEDICINE [address] [place] [address] documented as of this encounter Visit Diagnoses Not on filedocumented in this encounter Additional Health Concerns Assessment Noted Time PHQ-9 Depression Total Score: 0 11/25/19 25 2:10 PM EDT documented as of this encounter Care Teams Reimbursement Auditor Relationship Specialty Start Date End Date Amy Pickett MD [address] [place] [address] PCP - General Internal Medicine 04/07/23 documented as of this encounter
--- OUTSIDE RECORDS SUMMARY | 2025-03-04 16:22 | XMS_ITS | Encounter Summary ---
Author Organization [employer] Address [address] [facility] 7 [place] [address] Care Team Providers Care Tool And Cutter Grinder Name Role Phone Amy Pickett MD Primary Care Pro vider Reason for Visit * Reason Onset Date Comments Results 10/01/2024 Encounter Details Date Type Department Care Team ([facility] st Contact Info) Description 10/01/2024 Telephone [facility] MEDICINE [address] [place], [place] [phone] Amy Pickett MD [address] [place] [address] Results Social History Tobacco Use Types Packs/Day [...] Blood Test Date when done: 09/29/24 Facility: [facility] Contact pt at [phone] documented in this encounter Plan of Treatment Upcoming Encounters Date Type Department Care Team (Late st Contact Info) Description 03/29/2025 9:45 AM EDT Office Visit [facility] MEDICINE [address] [place] [address] documented as of this encounter Visit Diagnoses Not on filedocumented in this encounter Additional Health Concerns Assessment Noted Time PHQ-9 Depression Total Score: 10 024 9:41 AM EDT documented as of this encounter Care Teams Tool And Cutter Grinder Relationship Specialty Start Date End Date Amy Pickett MD [address] [place], [place] [phone] PCP - General Internal Medicine 04/07/23 documented as of this encounter
--- OUTSIDE RECORDS SUMMARY | 2025-03-04 16:22 | XMS_ITS | Encounter Summary ---
Author Organization [email or web address] Address [address] [facility] 7t [place] [address] Care Team Providers Care Housetrailer Servicer Name Role Phone Amy Pickett MD Primary Care Pro vider Encounter Details Date Type Department Care Team ([facility] st Contact Info) Description 09/01/2024 Telephone [facility] MEDICINE [address] [place], [place] [phone] Amy Pickett MD [address] [place], [place] [phone] Social History Tobacco Use Types Packs/Day Years [...] Office Visit [facility] MEDICINE [address] [place] [phone] documented as of this encounter Visit Diagnoses Not on filedocumented in this encounter Additional Health Concerns Assessment Noted Time PHQ-9 Depression Total Score: 10 024 9:41 AM EDT documented as of this encounter Care Teams Housetrailer Servicer Relationship Specialty Start Date End Date Amy Pickett MD [address] [place] [address] PCP - General Internal Medicine 04/07/23 documented as of this encounter
--- OUTSIDE RECORDS SUMMARY | 2025-03-04 16:22 | XMS_ITS | Clinical Summary ---
Author Organization [employer] Address [address] [place] [address] Care Team Providers Care Vice President Digital Strategist Name Role Phone Ba Maria MD Primary Care Provider Surgical History Surgery Date Site/Laterality Comments FOOT SURGERY PROCEDURE: [facility] UNLISTED PROCEDURE FOOT/TOES; COMMENT: left foot bunion removal LIPOMA RESECTION PROCEDURE: SKIN TISSUE EXCISION(LIPOMA) OTHER SURGICAL HISTORY PROCEDURE: ---- OTHER ----; COMMENT: urethral surgeries done? three times in [facility] for difficulty urinating Medical History Medical History Date Comments Chronic back pain DX:Chronic alonso k pain Asthma DX:Asthma Anxiety DX:Anxiety; COMM ENT: follows at [facility] Family History Medical History Relation [...] age to complete this topic Care Teams Vice President Digital Strategist Relationship Specialty Start Date End Date Ba Maria MD PCP - General Internal Medicine 10/26/12
--- OUTSIDE RECORDS SUMMARY | 2025-03-04 16:22 | XMS_ITS | Encounter Summary ---
Author Organization [employer] Address [address] [place] [address] 7 [place] [address] Care Team Providers Care Sanding Line Operator Name Role Phone Amy Pickett MD Primary Care Pro vider Reason for Visit * Reason Onset Date Comments call back requesting 03/03/2025 Encounter Details Date Type Department Care Team ([facility] st Contact Info) Description 03/03/2025 Telephone [facility] MEDICINE [address] [place], [place] [phone] Amy Pickett MD [address] [place] [address] call back requesting Social History Tobacco Use Types Packs/Day Years [...] encounter Miscellaneous Notes * Telephone Encounter - Molly Herman RN - 03/04/2025 2:36 PM EDT Return call placed to the pt and spoke with the pt SBA UNDERWRITER Domenica (HIPAA compliant) in regards to the information that the pt can't have an MRI done due to battery located in the body. Domenica states that the pt had a sacral nerve stimulator implanted years ago to assist the pt with urination and defecation. Every hospital the pt has gone too has told him that their MRI machines will not allow him to have the imaging due to the battery in the SNS device. Domenica called the pt urologist at [facility] for guidance as the pt is in 10/10 pain and would like some guidance on chronic severs shoulder pain. This pain has been ongoing for almost three months. If the pt gets too severe Domenica will be bringing the pt to the ED. Current oxycodone regimen is not helping alleviate the pain. * Telephone Encounter - Jesusita Castellanos - 03/03/2025 9:32 AM EDT Tc from pt stating that he is unable to do MRI due to his battery in his body. Pt stated his is in severe pain and he just want the battery out of he's body. Contact pt at [phone] documented in this encounter Plan of Treatment Upcoming Encounters Date Type Department Care Team (Late st Contact Info) Description 03/29/2025 9:45 AM EDT Office Visit [facility] MEDICINE [address] [place] [phone] documented as of this encounter Visit Diagnoses Not on filedocumented in this encounter Additional Health Concerns Assessment Noted Time PHQ-9 Depression Total Score: 0 11/25/19 25 2:10 PM EDT documented as of this encounter Care Teams Sanding Line Operator Relationship Specialty Start Date End Date Amy Pickett MD [address] [place] [id number] PCP - General Internal Medicine 04/07/23 documented as of this encounter
--- OUTSIDE RECORDS SUMMARY | 2025-03-04 16:22 | XMS_ITS | Clinical Summary ---
Author Organization [employer] Address [address] [place] [address] 7t [place] [address] Care Team Providers Care Peer Support Specialist Name Role Phone Amy Pickett MD [...] 022 Active Nebulizers (Comp-Air Elite Compact Neb) [facility] Active Blood Pressure Monitor kit 1 each [...] vomiting. 60 tablet 1 023 Active pancrelipase, Jfe-Yemr-Cbsb, (Creon) 9905-8237 units capsule Take 1 capsule by mouth [...] oxyCODONE (Roxicodone) 15 MG immediate release tabletIndicatio ns:CONSTRUCTION SITE MANAGER checked 06/13/22 Take 1 tablet (15 mg) [...] oxyCODONE (Roxicodone) 15 MG immediate release tabletIndicatio ns:CONSTRUCTION SITE MANAGER checked 06/13/22 Take 1 tablet (15 mg) [...] recommended. -Supportive care advised. -Isolation recommendations discussed. 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 Confirmatory testing sent. Chronic obstructive pulmonar y disease, unspecified COPD type 05/16/2024 Overview (09/05/2024): [place] with [facility] [place]. Maldonado Continue with [...] Injections 11/2022 Encouraged stretching Will refer to [facility] Continue FAMILY RESOURCE COORDINATOR at this time. Will perform random Utox [...] root compression . Seen by Neurosurgery at [facility], note pending Referred to Pain Management November 2024 Assessment & Plan (01/25/2025 1:44 PM EDT): -Good engagement and participation with Group Medical Visit model -Encouraged multifactorial approach to pain control including pharm and non- pharm modalities -Pill count as expected, Utox pos cocaine. Confirmatory testing sent. See database dba. Assessment & Plan (09/28/2024 2:02 PM EDT): [...] C7 fracture seen on CT scan at [facility] [place] 10/28/23 He participated [...] C7 fracture seen on CT scan at [facility] 10/28/23 He participated [...] Injections 11/2022 Encouraged stretching Will refer to [facility] physical therapy Continue FAMILY RESOURCE COORDINATOR at this time. Will perform random Utox [...] lumbar pain. Encouraged stretching Will refer to [facility] Continue FAMILY RESOURCE COORDINATOR at this time. Will perform random Utox [...] organization. Date Type Department Care Team Description 03/03/2025 Telephone [facility] [address] [place] [phone] Amy Pickett MD Durable Medical Equipment 03/03/[address] [address] Amy Pickett MD call back requesting 03/01/2025 9:10 AM EDT Clinical Support [address] [address] 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, RN terminal worker 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 03/01/2025 Telephone [facility] [address] [place] [address] 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 RN 03/01/2025 Travel 02/24/2025 Refill [facility] [address] [place] [address] 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, student truck driver pain of both knees; Chronic low back pain, unspecified back pain laterality, unspecified whether sciatica present 02/24/2025 Telephone [facility] [address] [place] [address] Amy Pickett MD med 02/24/2025 Telephone [facility] [address] [place] [address] Amy Pickett MD Med Refill 02/19/2025 Refill [facility] [address] [place] [address] Amy Pickett MD 02/10/2025 9:30 AM EDT Office Visit [facility] [address] [place] [address] Amy Pickett MD Cervical spondylosis without myelopathy (Primary Dx); Chronic migraine without aura without status migrainosus, not intractable; Essential hypertension; H/O lipoma; Mass of wrist, right; Claudication of left lower extremity (CMS/HCC); Health care maintenance; Lipoma, unspecified site; 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 worker 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; Chronic right shoulder pain; Spondylosis of cervical spine 02/10/2025 Telephone [facility] [address] [place] [phone] Amy Pickett MD Change PCP; TRANSFER REQUEST 02/10/2025 Travel 02/08/2025 Refill [facility] [address] [place] [address] Amy Pickett MD 02/03/2025 Refill [facility] [address] [place] [phone] Bri Noriega MD 02/01/2025 Telephone [facility] [address] [place] [phone] Amy Pickett MD Durable Medical Equipment 01/27/2025 Orders Only [facility] External Provider, [facility] 01/25/2025 9:45 AM EDT Office Visit [facility] [address] [place] [phone] Holly Wills FNP Spondylosis of cervical spine (Primary Dx); USP 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 01/25/2025 Telephone [facility] [address] [place] [address] 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 RN 01/25/2025 Travel 01/21/2025 Refill [facility] [address] [place] [address] Amy Pickett MD Chronic pain of both knees; Chronic low back pain, unspecified back pain laterality, unspecified whether sciatica present 01/11/2025 Refill [facility] [address] [place] [phone] Brent Hanson MD 01/10/2025 Telephone [facility] [address] [place] [address] Amy Pickett MD TP request 12/29/2024 Telephone [facility] [address] [place] [address] Amy Pickett MD fyi 12/28/2024 9:00 AM EDT Clinical Support [address] [address] Danay Flaherty RN terminal worker 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 (Primary Dx) 12/28/2024 Travel 2024 Refill [facility] [address] [place] [address] 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, student truck driver pain of both knees; Chronic low back pain, unspecified back pain laterality, unspecified whether sciatica present 2024 Refill [facility] [address] [place] [address] Amy Pickett MD Moderate persistent asthma without complication 2024 Telephone [facility] [address] [place] [address] Amy Pickett MD Med Refill 12/19/2024 Refill [facility] [address] [place] [address] Chioma Mojica MD 12/16/2024 Telephone [facility] [address] [place] [address] 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, DARIANA 12/04/2024 Refill [facility] [address] [place] [phone] Amy Pickett MD Chronic low back pain, [...] 9:45 AM EDT Office Visit [facility] [address] [place] [phone] Health Maintenance Due Date Last Done Comments [...] DRUG SCREEN Routine 03/01/2025 10:10 AM EDT USP 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 XR WRIST 3+ VIEWS RIGHT Routine 01/27/2025 11:18 AM EDT XR ELBOW 1-2 VIEWS RIGHT Routine 01/27/2025 11:13 AM EDT XR SHOULDER 2+ VIEWS RIGHT Routine 01/27/2025 11:06 AM EDT POCT ROBIN-14 URINE DRUG SCREEN Routine 01/25/2025 10:15 AM EDT Spondylosis of cervical spine terminal worker 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 DRUG MONITOR, COCAINE METAB, QN, URINE Routine 01/25/2025 9:30 AM EDT Spondylosis of cervical spine terminal worker 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 POCT ROBIN-14 URINE DRUG SCREEN Routine 12/28/2024 10:32 AM EDT USP 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 HEPATITIS C [...] - 03/01/2025 10:10 AM EDT .UTOX cup Lot#[id number] Exp. 04/12/26 Internal Pass Control Amy Berry MD POINT OF CARE SOHA T ENTER/EDIT ORDERABLES Final Result * XR Wrist 3+ Views Right (01/27/2025 11:18 AM EDT) Anatomical Region Laterality Modality Upper Extremities, Wrist Right Radiogr aphic Imaging 01/27/2025 11:1 8 AM EDT Narrative 01/27/2025 12:26 PM EDT [address] [address] XRay Report Signed Patient: Zain Welch MR# : [id number] : 1965 Acct:[id number] Age/Sex: 59 / M ADM Date: 01/27/25 Loc: .ED Attending Dr: Ordering Physician: Ailyn Carbone Date of Service: 01/27/25 Procedure(s): XR wrist RT min 3V Accession Number(s): [id number] cc: Ailyn Carbone; Amy Pickett MD EXAMINATION: [...] 01/27/25 1223 DD/ 1118 TD/TT: 01/27/25 1217 Security Messenger: Procedure Note Donotuseinterpreter, Image - 01/27/2025 [place] [address] XRay Report Signed Patient: Zain Welch LMR# : [id number] : 1965Acct:[id number] Age/Sex: 59 / MADM Date: 01/27/25 Loc: .ED Attending Dr: Ordering Physician: Ailyn Carbone Date of Service: 01/27/25 Procedure(s): XR wrist RT min 3V Accession Number(s): [id number] cc: Ailyn Carbone; Amy Pickett MD EXAMINATION: [...] 01/27/25 1223 DD/ 1118 TD/TT: 01/27/25 1217 Security Messenger: us [facility] External Provider IMG XR PROCEDURES Edited Result - Final * XR Elbow 1-2 Views Right (01/27/2025 11:13 AM EDT) Anatomical Region Laterality Modality Upper Extremities, Elbow Right Radiogr aphic Imaging 01/27/2025 11:1 3 AM EDT Narrative 01/27/2025 12:25 PM EDT [place] [address] XRay Report Signed Patient: Zain Welch MR# : [id number] : 1965 Acct:[id number] Age/Sex: 59 / M ADM Date: 01/27/25 Loc: HO.ED Attending Dr: Ordering Physician: Ailyn Carbone Date of Service: 01/27/25 Procedure(s): XR elbow RT 2V Accession Number(s): [id number] cc: Ailyn Carbone; Amy Pickett MD EXAMINATION: [...] 01/27/25 1223 DD/ 1113 TD/TT: 01/27/25 1217 Security Messenger: Procedure Note Donotuseinterpreter, Image - 01/27/[address] [address] XRay Report Signed Patient: Zain Welch LMR# : [id number] : 1965Acct:[id number] Age/Sex: 59 / MADM Date: 01/27/25 Loc: HO.ED Attending Dr: Ordering Physician: Ailyn Carbone Date of Service: 01/27/25 Procedure(s): XR elbow RT 2V Accession Number(s): [id number] cc: Ailyn Carbone; Amy Pickett MD EXAMINATION: [...] Serrato MD Signed By: <Electronically signed by yTler Reid MDin OV> 01/27/25 1223 DD/ 1113 TD/TT: 01/27/25 1217 Security Messenger: [facility] External Provider IMG XR PROCEDURES Edited Result - Final * XR Shoulder 2+ Views Right (01/27/2025 11:06 AM EDT) Anatomical Region Laterality Modality Upper Extremities, Shoulder Right Radi ographic Imaging 01/27/2025 11:0 6 AM EDT Narrative 01/27/2025 12:25 PM EDT [address] [address] XRay Report Signed Patient: Zain Welch MR# : [id number] : 1965 Acct:[id number] Age/Sex: 59 / M ADM Date: 01/27/25 Loc: HO.ED Attending Dr: Ordering Physician: Ailyn Carbone Date of Service: 01/27/25 Procedure(s): XR shoulder RT min 2V Accession Number(s): [id number] cc: Ailyn Carbone; Amy Pickett MD EXAMINATION: [...] cervical spine no fully included in the ivbok-jr-xgtz. Calcified plaque in the thoracic aortic arch. XR/XR shoulder RT min 2V IMPRESSION: Mild degenerative changes without acute fracture or dislocation. Electronically signed by: Tyler Cortez MD 01/27/2025 12:22 PM EDT RP Dictated By: Tyler Serrato MD Signed By: <Electronically signed by Tyler Reid MD in OV> 01/27/25 1222 DD/ 1106 TD/TT: 01/27/25 1217 Security Messenger: Procedure Note Donotuseinterpreter, Image - 01/27/2025 [place] [address] XRay Report Signed Patient: Zain Welch LMR# : [id number] : 1965Acct:[id number] Age/Sex: 59 / MADM Date: 01/27/25 Loc: HO.ED Attending Dr: Ordering Physician: Ailyn Carbone Date of Service: 01/27/25 Procedure(s): XR shoulder RT min 2V Accession Number(s): [id number] cc: Ailyn Carbone; Amy Pickett MD EXAMINATION: [...] cervical spine no fully included in the vpkav-jw-mhbo. Calcified plaque in the thoracic aortic arch. XR/XR shoulder RT min 2V IMPRESSION: Mild degenerative changes without acute fracture or dislocation. Electronically signed by: Tyler Cortez MD 01/27/2025 12:22 PM EDT RP Dictated By: Tyler Serrato MD Signed By: <Electronically signed by Tyler Reid MDin OV> 01/27/25 1222 DD/ 1106 TD/TT: 01/27/25 1217 Security Messenger: [facility] External Provider IMG XR PROCEDURES Edited Result - Final * Drug Monitoring, Cocaine Metabolite, Quantitative, Urine (01/25/2025 9:30 AM EDT) Benzoylecgonine [facility] Comment:[id number] ng/mL Cocaine Comments SEE NOTE [facility] Comment:NOTES AND COMMENTSTh is drug testing is for medical treatment only. Analysiswas performed as non-forensic testing and these resultsshould be used only by healthcare providers torender diagnosis or treatment, or to monitor progress ofmedical conditions.Cocaine Notes:Benzoylecgonine detected is consistent with the use of thedrug Cocaine.LDT Notes:Confirmation tests were developed and their analyticalperformance characteristics have been determined by [employer]. It has not been cleared orapproved by the FDA. This assay has been validated pursuantto the CLIA regulations and is used for clinical purposes.Healthcare Providers needing Interpretation assistance,please contact us at [phone] ( ) M-F,8am to 10pm ESTPERFORMING SITE:[facility], [address] [place] [phone] Revenue Officer: MICHELLE GAUTAM MD, CLIA:[id number] Urine (Urine, Random) 01/25/2025 9:30 AM EDT 01/25/2025 11:21 AM EDT us Amy Berry MD LAB URINE ORDERAB LES Final Result Performing Organization Address [facility]/ZIP Co de Phone Number [facility] [address] [place] [phone] * (ABNORMAL) Hepatitis C Antibody with Reflex to HCV, RNA, Quantitative, Real- Time PCR (09/29/2024 3:37 PM EDT) Hepatitis C Antibody Reactive( A) Nonreactive [facility] Comment:Presumptive evidence of antibodies to HCV. Blood Venous blood specimen / Unknown 09/29/2024 3:37 PM EDT 09/29/2024 3:38 PM EDT us Brent Fischer MD LAB BLOOD ORDERABL ES Final Result Performing Organization Address [facility] Co de Phone Number [facility] [address] [place] [phone] * HIV-1/2 Antigen and Antibodies, Fourth Generation, with Reflexes (09/29/2024 3:37 PM EDT) HIV AB/AG Nonreactive Nonreactive [facility] Comment:HIV-1 p24 Ag and/or HIV-1/HIV-2 Ab not detected.A test result that is nonreactive does not exclude thepossibility of exposure to or infection with HIV-1 and/orHIV-2. Nonreactive results in this assay for individualswith prior exposure to HIV-1 and/or HIV-2 may be due toantigen and antibody levels that are below the limit ofdetection of this assay.The [employer] HIV Ag/Ab Combo assay result andsupplemental assay results should be interpreted inconjunction with the patient's clinical presentation,history and other laboratory results. If the results areinconsistent with clinical evidence, additional testing issuggested to confirm the result. Blood Venous blood specimen / Unknown 09/29/2024 3:37 PM EDT 09/29/2024 3:38 PM EDT us Brent Fischer MD LAB BLOOD ORDERABL ES Final Result Performing Organization Address City/[facility]/ZIP Co de Phone Number [facility] [address] [place] [address] [phone] * (ABNORMAL) Lipid Panel, Standard (09/29/2024 3:37 PM EDT) Triglycerides 155(H) <150 mg/dL [facility] Comment:Desirable Triglyceri de: less than 150 mg/dLBorderline High Triglyceride 150-199 mg/dLHigh Triglyceride: 200-499 mg/dLVery High Triglyceride: greater than or equal to 5OO mg/dL Cholesterol 211(H) <200 mg/dL [facility] Comment:Desirable Cholestero l: less than 200 mg/dLBorderline High Cholesterol: 200-239 mg/dLHigh Cholesterol: greater than 239 mg/dL LDL Cholesterol Calculated 131(H) <100 mg/dL [facility] Comment:Desirable LDL: less than 100 mg/dLNear Optimal/Above Optimal LDL: 110- 129 mg/dLBorderline High LDL: 130-159 mg/dLHigh LDL: 160-189 mg/dLVery High LDL: greater than or equal to 190 mg/dL HDL Cholesterol 49 >40 mg/dL [facility] Comment:Desirable HDL: grea ter than 40 mg/dL Note: This HDL assay may give artificially low results in patients with liver disease. Blood Venous blood specimen / Unknown 09/29/2024 3:37 PM EDT 09/29/2024 3:38 PM EDT us Amy Berry MD LAB BLOOD ORDERAB LES Final Result [facility] [address] [place] [address] [phone] * Hm Colonoscopy (01/06/2018 8:00 AM EDT) us Historical Provider HEALTH MAINTENANCE Final Result from Last 3 Months or Most Recently Relevant to Health Maintenance Insurance [address] [place], [place] [facility] < 65 [address] [place] [address] [place] [address] [place] Care Teams Peer Support Specialist Relationship Specialty Start Date End Date Amy Pickett MD [address] [place] [phone] PCP - General Internal Medicine 04/07/23
--- OUTSIDE RECORDS SUMMARY | 2025-03-04 16:22 | XMS_ITS | Clinical Summary ---
Author Organization [facility] Facility Address [address] [place] [address] Care Team Providers Care Peat Shredder Tender Name Role Phone Donna Harmon MD Primary [...] Influenza Vaccine (#1) 2025 Insurance [facility] RUBEN JAIMES [id number] Care Teams Peat Shredder Tender Relationship Specialty Start Date End Date Donna Harmon MD PCP - General 05/11/19
--- OUTSIDE RECORDS SUMMARY | 2025-03-04 16:22 | XMS_ITS | Encounter Summary ---
Author Organization [employer] Address [address] [place] [address] 7 [place] [address] Care Team Providers Care Prestressed Concrete Laborer Name Role Phone Amy Pickett MD Primary Care Pro vider Reason for Visit * Reason Onset Date Comments Med Refill 02/24/2025 Encounter Details Date Type Department Care Team ([facility] st Contact Info) Description 02/24/2025 Telephone [facility] [address] [place], [place] [phone] Amy Pickett MD [address] [place], [place] [phone] Med Refill Social History Tobacco Use Types [...] immediate release tablet To be sent to: [facility]/pharmacy #[id number] - [address] documented in this encounter Plan of Treatment Upcoming Encounters Date Type Department Care Team (Late st Contact Info) Description 03/29/2025 9:45 AM EDT Office Visit [facility] [address] [place] [address] documented as of this encounter Visit Diagnoses Not on filedocumented in this encounter Additional Health Concerns Assessment Noted Time PHQ-9 Depression Total Score: 0 11/25/19 25 2:10 PM EDT documented as of this encounter Care Teams Prestressed Concrete Laborer Relationship Specialty Start Date End Date Amy Pickett MD [address] [place] [phone] PCP - General Internal Medicine 04/07/23 documented as of this encounter
--- OUTSIDE RECORDS SUMMARY | 2025-03-04 16:22 | XMS_ITS | Encounter Summary ---
Author Organization [employer] Address [address] [facility] 7t [place] [address] Care Team Providers Care Trapeze Performer Name Role Phone Elise Glover TANK WAGON OPERATOR Primary Care Provider Amy Ware MD Primary Care Pro vider Reason for Visit * Reason Comments Med Change Request Encounter Details Date Type Department Care Team (Late st Contact Info) Description 03/03/2023 Refill [facility] [address] [place] [phone] Elise Glover FNP Essential hypertension Social History [...] Description 03/29/2025 9:45 AM EDT Office Visit [facility] [address] [place] [phone] documented as of this encounter Visit Diagnoses Diagnosis Essential hypertension Unspecified essential hypertension documented in this encounter Additional Health Concerns Assessment Noted Time PHQ-9 Depression Total Score: 24 10/01/ 023 10:05 AM EDT documented as of this encounter Care Teams Trapeze Performer Relationship Specialty Start Date End Date Elise Glover FNP PCP - General Family Medicine 07/09/22 04/06/23 Amy Pickett MD [address] [place] [phone] PCP - General Internal Medicine 04/07/23 documented as of this encounter
--- OUTSIDE RECORDS SUMMARY | 2025-03-04 16:22 | XMS_ITS | Encounter Summary ---
Author Organization [employer] Address [address] [facility] 7t [place] [address] Care Team Providers Care Ground Service Equipment Mechanic Name Role Phone Amy Pickett MD [...] 03/29/2025 9:45 AM EDT Office Visit [facility] [address] [place] [address] documented as of this encounter Visit Diagnoses Not on filedocumented in this encounter Additional Health Concerns Assessment Noted Time PHQ-9 Depression Total Score: 0 11/25/19 25 2:10 PM EDT documented as of this encounter Care Teams Ground Service Equipment Mechanic Relationship Specialty Start Date End Date Amy Pickett MD [address] [place] [phone] PCP - General Internal Medicine 04/07/23 documented as of this encounter
--- OUTSIDE RECORDS SUMMARY | 2025-03-04 16:22 | XMS_ITS | Encounter Summary ---
Author Organization [employer] Address [address] [facility] 7 [place] [address] Care Team Providers Care Table Games Manager Name Role Phone Amy Pickett MD Primary Care Pro vider Reason for Visit * Reason Onset Date Comments Appointment Request 09/02/2023 Encounter Details Date Type Department Care Team ([facility] st Contact Info) Description 09/02/2023 Telephone [facility] [address] [place], [place] [phone] Amy Pickett MD [address] [place] [address] Appointment Request Social History Tobacco Use Types [...] t he electric, gas, oil or water [employer] threatened to shut off services in your [...] from pt requesting a transfer patient appointment. Oil Rig Driller does not see any availability. Pt states he needs appointment as soon as possible due to controlled medication. States needs to be seen bya new provider to continue medication. Please contact pt at [phone] documented in this encounter Plan of Treatment Upcoming Encounters Date Type Department Care Team (Late st Contact Info) Description 03/29/2025 9:45 AM EDT Office Visit [facility] [address] [place] [address] documented as of this encounter Visit Diagnoses Not on filedocumented in this encounter Additional Health Concerns Assessment Noted Time PHQ-9 Depression Total Score: 24 023 10:05 AM EDT documented as of this encounter Care Teams Table Games Manager Relationship Specialty Start Date End Date Amy Pickett MD [address] [place] [phone] PCP - General Internal Medicine 04/07/23 documented as of this encounter
--- OUTSIDE RECORDS SUMMARY | 2025-03-04 16:22 | XMS_ITS | Encounter Summary ---
Author Organization [employer] Address [address] [facility] 7t [place] [address] Care Team Providers Care Professor Of German Name Role Phone Amy Pickett MD Primary Care Pro vider Encounter Details Date Type Department Care Team ([facility] st Contact Info) Description 09/01/2024 Telephone [facility] [address] [place], [place] [phone] Amy Pickett MD [address] [place], [place] [phone] Social History Tobacco Use Types Packs/Day Years [...] 9:45 AM EDT Office Visit [facility] [address] [place] [phone] documented as of this encounter Visit Diagnoses Not on filedocumented in this encounter Additional Health Concerns Assessment Noted Time PHQ-9 Depression Total Score: 10 024 9:41 AM EDT documented as of this encounter Care Teams Professor Of German Relationship Specialty Start Date End Date Amy Pickett MD [address] [place] [id number] PCP - General Internal Medicine 04/07/23 documented as of this encounter
--- OUTSIDE RECORDS SUMMARY | 2025-03-04 16:22 | XMS_ITS | Encounter Summary ---
Author Organization [employer] Address [address] [place] [address] 7t [place] [address] Care Team Providers Care Dietetics Teacher Name Role Phone Elise Glover DRAFTER ASSISTANT Primary Care Provider Amy Ware MD Primary Care Pro vider Encounter Details Date Type Department Care Team (Late st Contact Info) Description 01/14/2023 Orders Only [facility] [address] [place] [address] [phone] Elise Glover FNP Social History Tobacco Use [...] 9:45 AM EDT Office Visit [facility] [address] [place] [address] [phone] documented as of this encounter Visit Diagnoses Not on filedocumented in this encounter Additional Health Concerns Assessment Noted Time PHQ-9 Depression Total Score: 24 03/28/2 023 10:05 AM EDT documented as of this encounter Care Teams Dietetics Teacher Relationship Specialty Start Date End Date Elise Glover FNP PCP - General Family Medicine 07/09/22 04/06/23 Amy Pickett MD [address] [place] [phone] PCP - General Internal Medicine 04/07/23 documented as of this encounter
--- OUTSIDE RECORDS SUMMARY | 2025-03-04 16:22 | XMS_ITS | Encounter Summary ---
Author Organization [employer] Address [address] [place] [address] 7 [place] [address] Care Team Providers Care Time Study Statistician Name Role Phone Elise Glover ASSOCIATE TRAINER Primary Care Provider Amy Ware MD Primary Care Pro vider Reason for Visit * Reason Onset Date Comments triage 08/22/2022 Encounter Details Date Type Department Care Team (Late st Contact Info) Description 08/22/2022 Telephone [facility] [address] [place] [address] [phone] Elise Glover FNP triage Social History Tobacco [...] 03/29/2025 9:45 AM EDT Office Visit [facility] [address] [place] [address] [phone] documented as of this encounter Visit Diagnoses Not on filedocumented in this encounter Care Teams Time Study Statistician Relationship Specialty Start Date End Date Elise Glover FNP PCP - General Family Medicine 07/09/22 04/06/23 Amy Pickett MD [address] [place] [phone] PCP - General Internal Medicine 04/07/23 documented as of this encounter
--- OUTSIDE RECORDS SUMMARY | 2025-03-04 16:22 | XMS_ITS | Encounter Summary ---
Author Organization [employer] Address [address] [place] [address] 7 [place] [address] Care Team Providers Care Director Of Casework Department Name Role Phone Amy Pickett MD Primary Care Pro vider Reason for Visit * Reason Onset Date Comments Med Refill 04/09/2024 Encounter Details Date Type Department Care Team (Late st Contact Info) Description 04/09/2024 Telephone [facility] [address] [place], [place] [phone] Amy Pickett MD [address] [place], [place] [phone] Med Refill Social History Tobacco Use Types [...] sent to: [facility]/pharmacy #[id number] - [address] documented in this encounter Plan of Treatment Upcoming Encounters Date Type Department Care Team (Late st Contact Info) Description 03/29/2025 9:45 AM EDT Office Visit [facility] [address] [place] [phone] documented as of this encounter Visit Diagnoses Not on filedocumented in this encounter Additional Health Concerns Assessment Noted Time PHQ-9 Depression Total Score: 10 024 9:41 AM EDT documented as of this encounter Care Teams Director Of Casework Department Relationship Specialty Start Date End Date Amy Pickett MD [address] [place] [address] PCP - General Internal Medicine 04/07/23 documented as of this encounter
--- OUTSIDE RECORDS SUMMARY | 2025-03-04 16:22 | XMS_ITS | Encounter Summary ---
Author Organization [employer] Address [address] [place] [address] 7t [place] [address] Care Team Providers Care Float Remover Name Role Phone Elise Glover SPEECH LANGUAGE PATHOLOGY ASSISTANT Primary Care Provider Amy Ware MD Primary Care Pro vider Reason for Visit * Reason Onset Date Comments Durable Medical Equipment 10/07/2022 Encounter Details Date Type Department Care Team (Late st Contact Info) Description 10/07/2022 Telephone [facility] [address] [place] [phone] Elise Glover, SPEECH LANGUAGE PATHOLOGY ASSISTANT Durable Medical Equipment Social History Tobacco Use [...] If any questions please contact Anabelle at [phone] documented in this encounter Plan of Treatment Upcoming Encounters Date Type Department Care Team (Late st Contact Info) Description 03/29/2025 9:45 AM EDT Office Visit [facility] [address] [place] [address] documented as of this encounter Visit Diagnoses Not on filedocumented in this encounter Additional Health Concerns Assessment Noted Time PHQ-9 Depression Total Score: 24 10/01/ 023 10:05 AM EDT documented as of this encounter Care Teams Float Remover Relationship Specialty Start Date End Date Elise Glover FNP PCP - General Family Medicine 07/09/22 04/06/23 Amy Pickett MD [address] [place] [address] PCP - General Internal Medicine 04/07/23 documented as of this encounter
--- OUTSIDE RECORDS SUMMARY | 2025-03-04 16:22 | XMS_ITS | Encounter Summary ---
Author Organization [employer] Address [address] [facility] 7 [place] [address] Care Team Providers Care Uke Operator Name Role Phone Amy Pickett MD Primary Care Pro vider Reason for Visit * Reason Onset Date Comments Durable Medical Equipment 03/03/2025 Encounter Details Date Type Department Care Team (Late st Contact Info) Description 03/03/2025 Telephone [facility] [address] [place], [place] [phone] Amy Pickett MD [address] [place] [address] Durable Medical Equipment Social History Tobacco Use [...] * Telephone Encounter - Olamide Chavez - 03/03/2025 2:15 PM EDT It Application Development Manager called [facility] who confirmed receipt of Confirmation of order form faxed 02/03/2025 and stated order for incontinence supplies would be delivered tomorrow 03/04/25 via [employer]. It Application Development Manager returned call to Domenica to inform of the above. Domenica verbalized understanding. * Telephone Encounter - Andrea Palacio - 03/03/2025 11:41 AM EDT Tc from pt LEGAL OFFICE ADMINISTRATOR Domenica T stating that [facility] are requesting a renewal for incontinence supplies prescription that was sent Contact Domenica at [phone] documented in this encounter Plan of Treatment Upcoming Encounters Date Type Department Care Team (Late st Contact Info) Description 03/29/2025 9:45 AM EDT Office Visit [facility] [address] [place] [phone] documented as of this encounter Visit Diagnoses Not on filedocumented in this encounter Additional Health Concerns Assessment Noted Time PHQ-9 Depression Total Score: 0 11/25/19 25 2:10 PM EDT documented as of this encounter Care Teams Uke Operator Relationship Specialty Start Date End Date Amy Pickett MD [address] [place] [address] PCP - General Internal Medicine 04/07/23 documented as of this encounter
[2025-03-04 16:44] VITALS: BP 146/91; PULSE 97; RESP 18; TEMP 36.3; O2SAT 97
== END 2025-03-04 16:44 | disposition home or self-care (01) ==
PROVIDERS: Emergency Provider Emergency Medicine; PCP Student in an Organized Health Care Education/Training Program
DX: M25.551 Pain in right hip (principal); Z79.899 Other long term (current) drug therapy
CPT/HCPCS: 96372; 99283; 99284; J1885

== ENCOUNTER 2025-03-17 19:00 | Emergency (ER) | payer OTHER, SELFPAY ==
[2025-03-17 19:05] VITALS: BP 146/80; PULSE 101; RESP 16; TEMP 36.7; O2SAT 95; BMI 31.4
--- NOTE | 2025-03-17 19:11 | ED.GENADULT ---
HPI - General Adult General Chief complaint: Extremity Problem Stated complaint: rt shoulder pain going to the left Time Seen by Provider: 03/17/25 19:09 Source: patient Mode of arrival: ambulatory Limitations: no limitations History of Present Illness ED Provider: MARGARITA [place]ISON PA-C HPI narrative: 59 year old male presents to the ED today for evaluation of right shoulder pain. He reports chronic right shoulder pain since fall months ago. He is awaiting an MRI of the shoulder which is scheduled on 04/01/2025. He is currently on oxycodone for chronic pain however this does not help with his right shoulder pain. This pain is keeping him from sleeping at night. He states that a muscle relaxer typically helps him however he ran out of this prescription a few weeks back. He has been attempting to contact his primary care physician today for a refill however has not been able to reach them. Denies any new injury or trauma to the right shoulder. States this feels like his chronic shoulder pain. Denies any numbness/weakness/tingling down the right upper extremity. Related Data Home Medications ?Medication ?Instructions ?Recorded ?Confirmed cholecalciferol (vitamin D3) 50 50 mcg PO DAILY 05/22/20 09/29/24 mcg (2,000 unit) capsule fluticasone propionate 220 1 puff inhalation BID 05/22/20 09/29/24 mcg/actuation HFA aerosol inhaler (Flovent HFA) oxycodone 15 mg tablet 15 mg PO Q6H 05/22/20 09/29/24 albuterol sulfate 2.5 mg/3 mL 1 vial inhalation QID 07/19/20 09/29/24 (0.083 %) solution for nebulization multivitamin (Daily-Petra tablet) 1 tab PO DAILY 07/19/20 09/29/24 divalproex 500 mg tablet,delayed 1,000 mg PO BID 08/29/21 09/29/24 release fluoxetine 20 mg capsule 20 mg PO DAILY 08/29/21 09/29/24 alprazolam 1 mg tablet 1 mg PO BID PRN Anxiety 10/08/21 09/29/24 escitalopram oxalate 20 mg tablet 20 mg PO QAM 06/26/22 09/29/24 magnesium oxide 400 mg (241.3 mg 400 mg PO DAILY 06/26/22 09/29/24 magnesium) tablet lisinopril 5 mg tablet 10 mg PO BID 07/17/22 09/29/24 nebulizers 08/29/22 09/29/24 atorvastatin 40 mg tablet 40 mg PO DAILY 10/15/24 clopidogrel 75 mg tablet 75 mg PO DAILY 10/15/24 clotrimazole 1 % topical cream appl topical DAILY 10/15/24 cyanocobalamin (vitamin B-12) 1,000 mcg PO DAILY 10/15/24 1,000 mcg tablet hydroxyzine HCl 10 mg tablet 10 mg PO BID 10/15/24 loratadine 10 mg tablet 10 mg PO DAILY 10/15/24 olmesartan 20 mg tablet 20 mg PO DAILY 10/15/24 rimegepant 75 mg disintegrating 75 mg PO DAILY PRN 10/15/24 tablet (Nurtec ODT) Previous Rx's ?Medication ?Instructions ?Recorded tamsulosin 0.4 mg capsule 0.4 mg PO DAILY 30 days #30 caps 06/26/22 sumatriptan succinate 100 mg 100 mg PO .COMPLEX #14 tabs 03/20/23 tablet (Imitrex) cyclobenzaprine 5 mg tablet 5 mg PO BEDTIME PRN muscle spasm 10/01/23 #7 tabs [id number] 1 cap PO QID 30 days #120 caps 10/29/23 24,000-76,000-120,000 unit capsule,delayed rel (Creon) fluticasone fur. 200 mcg-umeclid 1 inh inhalation DAILY 30 days #60 04/28/24 62.5 mcg-vilant 25 mcg ea inhalat.powder (Trelegy Ellipta) ipratropium 20 mcg-albuterol 100 1 puff inhalation QID 30 days #4 07/12/24 mcg/actuation mist for inhalation grams (Combivent Respimat) budesonide 0.5 mg/2 mL suspension 0.5 mg (2 mL) inhalation BID 30 10/14/24 for nebulization days #120 mL doxycycline hyclate 100 mg capsule 100 mg PO BID 10 days #20 caps 10/14/24 ipratropium 0.5 mg-albuterol 3 mg 3 ml inhalation BID 30 days #180 mL 10/14/24 (2.5 mg base)/3 mL nebulization soln nicotine 21 mg/24 hr daily 1 patch transdermal DAILY 28 days 10/14/24 transdermal patch #28 ea prednisone 20 mg tablet See Rx Instructions PO DAILY 10 10/14/24 days #15 tabs dexlansoprazole 60 mg 60 mg PO DAILY #90 caps 10/15/24 capsule,biphase delayed release dicyclomine 20 mg tablet 20 mg PO QID 30 days #120 tabs 10/15/24 famotidine 40 mg tablet 40 mg PO BEDTIME #90 tabs 10/15/24 amoxicillin 875 mg-potassium 1 tab PO BID 10 days #20 tabs 10/26/24 clavulanate 125 mg tablet prednisone 10 mg tablet See Rx Instructions PO DAILY 18 10/26/24 days #63 tabs ondansetron HCl 4 mg tablet 4 mg PO BID PRN for 11/22/24 nausea/vomiting #60 tabs cyclobenzaprine 10 mg tablet 10 mg PO TID PRN muscle spasm #20 01/27/25 tabs prednisone 20 mg tablet 40 mg (2 x 20 mg) PO DAILY #10 tabs 01/27/25 prednisone 20 mg tablet 40 mg (2 x 20 mg) PO DAILY #10 tabs 03/04/25 cyclobenzaprine 5 mg tablet 5 mg PO Q8H PRN muscle spasm #20 03/17/25 tabs Allergies Allergy/AdvReac Type Severity Reaction Status Date / Time cat dander (CATS) Allergy Unknown UNKNOWN Verified 03/17/25 19:10 dog dander (DOGS) Allergy Unknown UNKNOWN Verified 03/17/25 19:10 pollen extracts (POLLEN) Allergy Unknown UNKNOWN Verified 03/17/25 19:10 tree and shrub pollen Allergy sneeze Verified 03/17/25 19:10 ibuprofen AdvReac causes Verified 03/17/25 19:10 stomach to bleed Review of Systems Review of Systems: Yes all other systems are reviewed and are negative PMFSH Past Medical History Attestation statement: The following information was validated with the patient. Source: old records reviewed and nursing notes reviewed Medical History Chest pain Nicotine dependence, cigarettes, uncomplicated Nausea and vomiting Dyspnea Photophobia Headache Syncope Dysphagia Seizure Lipoma of back STEPHON (obstructive sleep apnea) COPD (chronic obstructive pulmonary disease) Post herpetic neuralgia Multiple lipomas Osteoarthritis Gout History of peptic ulcer disease Hx of irritable bowel syndrome Chronic back pain Hx of insomnia History of panic attacks History of anxiety History of depression Asthma High cholesterol Hypertension Urinary retention Enlarged prostate Arthritis Slow urinary stream Marijuana use Alcohol abuse H/O ulcer disease Left flank pain Trochanteric bursitis, left hip Epidermal cyst Abdominal wall bulge Esophageal dysphagia Esophageal spasm Short frenulum of penis Balanitis Elevated blood pressure reading in office with diagnosis of hypertension Thalamic pain syndrome Abnormal loss of weight Painful orthopaedic hardware Pain in unspecified toe(s) Incisional pain Surgical History S/P placement of nerve stimulator H/O neck surgery Hx of arthroscopy of left knee H/O breast surgery S/P excision of lipoma History of bunionectomy History of cystoscopy History of colonoscopy History of esophagogastroduodenoscopy (EGD) Family History Family History Family/Other Cancer Diabetes AIDS Brother Diabetes Myocardial infarction Father Enlarged prostate Mother Diabetes Asthma Social History Social History Are you a primary md do resident urgent care to a significant other at home: No Do you presently have visiting nurse or other home services: No Alcohol intake: never Patient Tobacco Use Status: Current everyday Tobacco user Cigarettes Per Day: 4 Years Smoked: (onset 16yo, 1ppd x 42yrs, now 1/2ppd - 40pyh) Substance Use Type: Marijuana Advance Directives: No Advance Directives Information Provided: Yes service: No Current occupational status: unemployed Physical Exam ED Vital Signs: Vital Signs - 24 hr 03/17/25 19:05 03/17/25 19:24 Temperature 98.1 F 98.1 F Pulse Rate 101 H 101 H Respiratory Rate 16 16 Blood Pressure 146/80 H 146/80 H Pulse Oximetry 95 95 Oxygen Delivery Method Room Air Room Air BMI result Body Mass Index 31.4 Hypertensive, tachycardic, vitals otherwise WNL General: Well appearing, in no acute distress. Skin: Warm, dry, intact. No rashes or lesions. Head: Normocephalic, atraumatic. EENT: Hearing is intact b/l. Conjunctiva clear. PERRLA. EOM intact. Moist mucous membranes.? Neck: FROM Cardiac: Chest wall symmetric. RRR Lungs: Normal respiratory effort without accessory muscle use. CTA bilaterally Ext: +No obvious deformity to right shoulder, no overlying skin changes. There is tenderness to the anterior aspect of the right shoulder. Range of motion is somewhat limited with abduction of right shoulder. Full ROM intact with flexion/extension. sensation intact. Neuro: AOx3. Normal speech. Ambulating with steady gait. Course Course Course Narrative: Patient presents with chronic shoulder pain, unchanged from priors. He does have an upcoming MRI scheduled. I do not feel as though further imaging is warranted at this time as he has had no new injury or trauma. He is requesting a script for Flexeril as this typically helps with his discomfort. I feel this should hold him over until he is able to have his MRI. He was given a dose of Toradol in the ED today. Patient has remained stable throughout ED visit today. Discussed worrisome signs and symptoms and when to return to the ED. All questions answered at this time. Patient is agreeable with disposition and stable for discharge. Medications Administered Discontinued Medications Generic Name Dose Route Start Last Admin Trade Name Facundoq PRN Reason Stop Dose Admin Ketorolac Tromethamine 30 mg 03/17/25 19:10 03/17/25 19:13 Ketorolac Tromethamine 30 Mg/Ml Vial IM 03/17/25 19:11 30 mg ONCE ONE Administration Medical Decision Making Medical Decision Making MDM Narrative: 59 year old male presents to the ED today for evaluation of right shoulder pain. He is hypertensive and mildly tachycardic. Vitals are otherwise WNL. He is well-appearing and in no acute distress. on exam, no obvious deformity to right shoulder, no overlying skin changes. There is tenderness to the anterior aspect of the right shoulder. Range of motion is somewhat limited with abduction of right shoulder. Full ROM intact with flexion/extension. sensation intact. Differential diagnosis includes chronic shoulder pain, shoulder pain, arthralgia, opioid dependence Plan for pain control and disposition. Differential Diagnosis Differential Diagnoses: The differential diagnosis associated with the presentation includes As above Admission/Observation Not indicated Independent Interpretation I performed an independent interpretation of an: Plain X-Ray Interpretation: X-ray right shoulder from 01/27/2025 without acute fracture Radiology Impression Discussion of test interpretation with radiology: I have reviewed the radiologist's reading. Radiologist Impression: EXAMINATION: XR SHOULDER, RIGHT CLINICAL INFORMATION: pain COMPARISON: November 22, 2024. TECHNIQUE: AP external rotation, Grashey, scapular Y, and axillary views of the right shoulder. FINDINGS: Degenerative changes in the acromioclavicular joint and the greater tuberosity of the humerus. No acute cortical disruption or malalignment. No lytic or blastic lesions. Metallic hardware in the lower cervical spine no fully included in the [id number]. Calcified plaque in the thoracic aortic arch. XR/XR shoulder RT min 2V IMPRESSION: Mild degenerative changes without acute fracture or dislocation. Electronically signed by: Tyler Cortez MD 01/27/2025 12:22 PM EDT RP External Record Review External record reviewed: Inpatient record Prescription Management I considered prescription management with: Other (Flexeril) Chronic Conditions Patient?s care impacted by: Other (chronic right shoulder pain) Social Determinants Patient?s care significantly limited by Social Determinants of Health including: Other Social Determinant of Health Critical Care Time Critical Care Time Critical Care Time: No Discharge Plan Discharge Clinical Impression: Chronic pain in right shoulder Patient Disposition: Home, Self-Care Instructions: Cyclobenzaprine (By mouth) (Flexeril, Amrix, Fexmid, FusePaq Tabradol), Shoulder Pain (ED) Additional Instructions: You were evaluated in the ED today for your chronic right shoulder pain. You have an MRI scheduled for 04/01/2025. You were treated with 1 dose of Toradol in ED today. I am sending Flexeril to your pharmacy for you to take as needed for pain. Please follow up with outpatient providers. In the case of an emergency call 911. Prescriptions: New cyclobenzaprine 5 mg tablet 5 mg PO Q8H PRN (Reason: muscle spasm) Qty: 20 0RF No Action sumatriptan succinate [Imitrex] 100 mg tablet 100 mg PO .COMPLEX Qty: 14 3RF Rx Instructions: 100 mg orally; amoxicillin-pot clavulanate 875-125 mg tablet 1 tab PO BID 10 Days Qty: 20 0RF prednisone 10 mg tablet See Rx Instructions PO DAILY 18 Days Qty: 63 0RF Rx Instructions: PO daily; Take 6 tabs daily x 3 days, then 5 tabs x 3 days, then 4 tabs x 3 days, then 3 tabs x 3 days, then 2 tabs daily x 3 days, then 1 tab x 3 days to complete. ondansetron HCl 4 mg tablet 4 mg PO BID PRN (Reason: for nausea/vomiting) Qty: 60 0RF multivitamin [Daily-Petra] Tablet 1 tab PO DAILY albuterol sulfate 2.5 mg /3 mL (0.083 %) solution for nebulization 1 vial inhalation QID alprazolam 1 mg tablet 1 mg PO BID PRN (Reason: Anxiety) lisinopril 5 mg tablet 10 mg PO BID cyclobenzaprine 5 mg tablet 5 mg PO BEDTIME PRN (Reason: muscle spasm) Qty: 7 0RF prednisone 20 mg tablet 40 mg PO DAILY Qty: 10 0RF cyclobenzaprine 10 mg tablet 10 mg PO TID PRN (Reason: muscle spasm) Qty: 20 0RF prednisone 20 mg tablet 40 mg PO DAILY Qty: 10 0RF oxycodone 15 mg tablet 15 mg PO Q6H cholecalciferol (vitamin D3) 50 mcg (2,000 unit) capsule 50 mcg PO DAILY Flovent HFA 220 mcg/actuation HFA aerosol inhaler 1 puff inhalation BID fluoxetine 20 mg capsule 20 mg PO DAILY divalproex 500 mg tablet,delayed release (DR/EC) 1,000 mg PO BID magnesium oxide 400 mg (241.3 mg magnesium) tablet 400 mg PO DAILY escitalopram oxalate 20 mg tablet 20 mg PO QAM tamsulosin 0.4 mg capsule 0.4 mg PO DAILY 30 Days Qty: 30 3RF (DME) nebulizers Misc See Rx Instructions .Route Rx Instructions: As directed Trelegy Ellipta 200-62.5-25 mcg blister with device 1 inh inhalation DAILY 30 Days Qty: 60 12RF Combivent Respimat 20-100 mcg/actuation mist 1 puff inhalation QID 30 Days Qty: 4 11RF olmesartan 20 mg tablet 20 mg PO DAILY clotrimazole 1 % cream topical DAILY hydroxyzine HCl 10 mg tablet 10 mg PO BID atorvastatin 40 mg tablet 40 mg PO DAILY cyanocobalamin (vitamin B-12) 1,000 mcg tablet 1,000 mcg PO DAILY Nurtec ODT 75 mg tablet,disintegrating 75 mg PO DAILY PRN clopidogrel 75 mg tablet 75 mg PO DAILY loratadine 10 mg tablet 10 mg PO DAILY dexlansoprazole 60 mg capsule,biphase delayed releas 60 mg PO DAILY Qty: 90 1RF famotidine 40 mg tablet 40 mg PO BEDTIME Qty: 90 2RF dicyclomine 20 mg tablet 20 mg PO QID 30 Days Qty: 120 6RF Creon 24,000-76,000 -120,000 unit capsule,delayed release(DR/EC) 1 cap PO QID 30 Days Qty: 120 6RF Rx Instructions: administer with meals and/or snacks nicotine 21 mg/24 hr patch 24 hour 1 patch transdermal DAILY 28 Days Qty: 28 4RF prednisone 20 mg tablet See Rx Instructions PO DAILY 10 Days Qty: 15 0RF Rx Instructions: PO daily; Take 2 tabs daily x 5 days, then 1 tablet daily x 5 days doxycycline hyclate 100 mg capsule 100 mg PO BID 10 Days Qty: 20 0RF ipratropium-albuterol 0.5 mg-3 mg(2.5 mg base)/3 mL solution for nebulization 3 ml inhalation BID 30 Days Qty: 180 11RF budesonide 0.5 mg/2 mL suspension for nebulization 0.5 mg inhalation BID 30 Days Qty: 120 11RF Referrals: Amy Pickett MD [Primary Care Provider, Internal Medicine] Interventions: ED Discharge Assessment Last Done: 03/17/25 19:24 Discharge Date/Time: 03/17/25 19:24 Print Language: Czech
--- OUTSIDE RECORDS SUMMARY | 2025-03-17 19:21 | XMS_ITS | Encounter Summary ---
Author Organization [employer] Address [address] [place] [address] 7 [place] [address] Care Team Providers Care Food Runner Name Role Phone Amy Pickett MD Primary Care Pro vider Reason for Visit * Reason Onset Date Comments Med Refill 05/13/2024 Encounter Details Date Type Department Care Team ([facility] st Contact Info) Description 05/13/2024 Telephone [facility] [address] [place], [place] [phone] Amy Pickett MD [address] [place], [place] [phone] Med Refill Social History Tobacco Use Types [...] immediate release tablet To be sent to: [facility]/pharmacy #[id number] - [address] documented in this encounter Plan of Treatment Upcoming Encounters Date Type Department Care Team (Late st Contact Info) Description 03/29/2025 9:45 AM EDT Office Visit [facility] [address] [place], [place] [phone] documented as of this encounter Visit Diagnoses Not on filedocumented in this encounter Additional Health Concerns Assessment Noted Time PHQ-9 Depression Total Score: 10 024 9:41 AM EDT documented as of this encounter Care Teams Food Runner Relationship Specialty Start Date End Date Amy Pickett MD [address] [place], [place] [phone] PCP - General Internal Medicine 04/07/23 documented as of this encounter
--- OUTSIDE RECORDS SUMMARY | 2025-03-17 19:21 | XMS_ITS | Encounter Summary ---
Author Organization [employer] Address [address] [facility] 7t [place] [address] Care Team Providers Care Welding Manager Name Role Phone Amy Pickett MD Primary Care Pro vider Encounter Details Date Type Department Care Team ([facility] st Contact Info) Description 09/01/2024 Telephone [facility] [address] [place], [place] [phone] Amy Pickett MD [address] [place], [place] [phone] Social History Tobacco Use Types Packs/Day Years [...] Description 03/29/2025 9:45 AM EDT Office Visit [facility] [address] [place] [phone] documented as of this encounter Visit Diagnoses Not on filedocumented in this encounter Additional Health Concerns Assessment Noted Time PHQ-9 Depression Total Score: 10 024 9:41 AM EDT documented as of this encounter Care Teams Welding Manager Relationship Specialty Start Date End Date Amy Pickett MD [address] [place] [id number] PCP - General Internal Medicine 04/07/23 documented as of this encounter
--- OUTSIDE RECORDS SUMMARY | 2025-03-17 19:21 | XMS_ITS | Encounter Summary ---
Author Organization [employer] Address [address] [place] [address] 7 [place] [address] Care Team Providers Care Pile Driving Nozzleman Name Role Phone Amy Pickett MD Primary Care Pro vider Reason for Visit * Reason Onset Date Comments Med Refill 04/09/2024 Encounter Details Date Type Department Care Team (Late st Contact Info) Description 04/09/2024 Telephone [facility] [address] [place], [place] [phone] Amy Pickett MD [address] [place], [place] [phone] Med Refill Social History Tobacco Use Types [...] to: [facility]/pharmacy #1972 - [address] documented in this encounter Plan of Treatment Upcoming Encounters Date Type Department Care Team (Late st Contact Info) Description 03/29/2025 9:45 AM EDT Office Visit [facility] [address] [place] [phone] documented as of this encounter Visit Diagnoses Not on filedocumented in this encounter Additional Health Concerns Assessment Noted Time PHQ-9 Depression Total Score: 10 024 9:41 AM EDT documented as of this encounter Care Teams Pile Driving Nozzleman Relationship Specialty Start Date End Date Amy Pickett MD [address] [place] [address] PCP - General Internal Medicine 04/07/23 documented as of this encounter
--- OUTSIDE RECORDS SUMMARY | 2025-03-17 19:21 | XMS_ITS | Encounter Summary ---
Author Organization [employer] Address [address] [place] [address] 7 [place] [address] Care Team Providers Care Senior Test Engineer Name Role Phone Amy Pickett MD Primary Care Pro vider Reason for Visit * Reason Onset Date Comments Med Refill 10/27/2024 Encounter Details Date Type Department Care Team ([facility] st Contact Info) Description 10/27/2024 Telephone [facility] [address] [place], [place] [phone] Amy Pickett MD 230 [place], [place] [phone] Med Refill Social History Tobacco Use Types [...] immediate release tablet To be sent to: [facility]/pharmacy #[id number] documented in this encounter Plan of Treatment Upcoming Encounters Date Type Department Care Team (Late st Contact Info) Description 03/29/2025 9:45 AM EDT Office Visit [facility] [address] [place] [address] documented as of this encounter Visit Diagnoses Not on filedocumented in this encounter Additional Health Concerns Assessment Noted Time PHQ-9 Depression Total Score: 10 024 9:41 AM EDT documented as of this encounter Care Teams Senior Test Engineer Relationship Specialty Start Date End Date Amy Pickett MD [address] [place] [address] PCP - General Internal Medicine 04/07/23 documented as of this encounter
--- OUTSIDE RECORDS SUMMARY | 2025-03-17 19:21 | XMS_ITS | Encounter Summary ---
Author Organization [employer] Address [address] [facility] 7t [place] [address] Care Team Providers Care Advertising Rep Name Role Phone Amy Pickett MD Primary Care Pro vider Encounter Details Date Type Department Care Team ([facility] st Contact Info) Description 09/01/[address] [facility] 230 [place], [place] [phone] Amy Pickett MD [address] [place], [place] [phone] Social History Tobacco Use Types Packs/Day Years [...] 03/29/2025 9:45 AM EDT Office Visit [facility] [address] [place] [address] documented as of this encounter Visit Diagnoses Not on filedocumented in this encounter Additional Health Concerns Assessment Noted Time PHQ-9 Depression Total Score: 10 024 9:41 AM EDT documented as of this encounter Care Teams Advertising Rep Relationship Specialty Start Date End Date Amy Pickett MD [address] [place] [id number] PCP - General Internal Medicine 04/07/23 documented as of this encounter
--- OUTSIDE RECORDS SUMMARY | 2025-03-17 19:22 | XMS_ITS | Encounter Summary ---
Author Organization [employer] Address [address] [facility] 7 [place] [address] Care Team Providers Care Track Layer Head Name Role Phone Amy Pickett MD Primary Care Pro vider Reason for Visit * Reason Onset Date Comments Med Refill 02/11/2024 Encounter Details Date Type Department Care Team (Late st Contact Info) Description 02/11/2024 Telephone [facility] [address] [place], [place] [phone] Amy Pickett MD [address] [place], [place] [phone] Med Refill Social History Tobacco Use Types [...] immediate release tablet To be sent to: [facility]/pharmacy #1972 - [address] documented in this encounter Plan of Treatment Upcoming Encounters Date Type Department Care Team (Late st Contact Info) Description 03/29/2025 9:45 AM EDT Office Visit [facility] [address] [place] [address] documented as of this encounter Visit Diagnoses Not on filedocumented in this encounter Additional Health Concerns Assessment Noted Time PHQ-9 Depression Total Score: 24 023 10:05 AM EDT documented as of this encounter Care Teams Track Layer Head Relationship Specialty Start Date End Date Amy Pickett MD [address] [place] [address] PCP - General Internal Medicine 04/07/23 documented as of this encounter
--- OUTSIDE RECORDS SUMMARY | 2025-03-17 19:22 | XMS_ITS | Clinical Summary ---
Author Organization [employer] Address [address] [place] [address] [address] [place] [address] Care Team Providers Care Fountain Supervisor Name Role Phone Amy Pickett MD [...] vomiting. 60 tablet 1 023 Active pancrelipase, Zlr-Mjsg-Uzrs, (Creon) 5973-8953 units capsule Take 1 capsule by mouth [...] Take 1 tablet by mouth. 025 Active tamsulosin (Flomax) 0.4 MG 24 hr capsule TAKE 1 CAPSULE (0.4 MG) BY MOUTH IN THE MORNING. EVERY DAY 1/2 HOUR FOLLOWING THE SAME MEAL EACH DAY 90 capsule 025 Active ipratropium-alb uterol (Combivent Respimat) 20-100 MCG/ACT inhalerIndicati ons:Moderate persistent asthma without complication INHALE 2 PUFFS BY MOUTH EVERY 6 HOURS 4 g 3 025 Active cyanocobalamin (Vitamin B-12) 1000 MCG tablet TAKE 1 TABLET (1,000 MCG) BY MOUTH ONCE PER DAY. 90 tablet 025 Active nicotine polacrilex (Commit) 4 MG lozenge Dissolve 1 lozenge (4 mg) in the mouth every 2 (two) hours if needed for smoking cessation. 100 lozenge 3 Active olmesartan (Benicar) 40 MG tabletIndicatio ns:Essential hypertension Take 1 tablet (40 mg) by mouth Once per day. 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 112 tablet 025 2024 Active gabapentin (Neurontin) 600 MG tabletIndicatio ns:Chronic low back pain, unspecified back pain laterality, unspecified whether sciatica present TAKE 1 TABLET BY MOUTH EVERYDAY AT BEDTIME 30 tablet 2 Active naloxone (Narcan) 4 mg/0.1 mL nasal spray Administer 1 spray (4 mg) into affected nostril(s) if needed for opioid reversal. May repeat every 2-3 minutes if needed, alternating nostrils, until medical assistance becomes available. 2 each 2 025 2025 Active atorvastatin (Lipitor) 80 MG tablet Take 1 tablet (80 mg) by mouth in the morning. 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 Do not start before January 23, 2025. 112 tablet 025 2024 Discontinued(R eorder (will not trigger notification to Pharmacy)) cyclobenzaprine (Flexeril) 5 MG tabletIndicatio ns:Cervical spondylosis without myelopathy Take 1 tablet (5 mg) by mouth if needed at bedtime for muscle spasms. 30 tablet 025 2024 predniSONE (Deltasone) 20 MG tablet Take 1 tablet (20 mg) by mouth Once per day for 5 days. 5 tablet 025 2024 naloxone (Narcan) 4 mg/0.1 mL nasal spray Administer 1 spray (4 mg) into affected nostril(s) if needed for opioid reversal. May repeat every 2-3 minutes if needed, alternating nostrils, until medical assistance becomes available. 2 each 2 025 2024 Discontinued(R eorder (will not trigger [...] recommended. -Supportive care advised. -Isolation recommendations discussed. roasterman 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 2023 Overview (01/25/2025): Dx: chronic neck, low back pain, LE claudication Rx: Oxycodone 15mg IR q 6 hours Last SUBSYSTEMS ENGINEER agreement: 09/28/24 Tier: 1 (monthly SUBSYSTEMS ENGINEER visits) Additional considerations: Alprazolam 1mg for anxiety Assessment & Plan (01/25/2025 1:45 PM EDT): Timeline: -previous positive utox for cocaine 11/2023 -09/28/24: Group - utox/pill count wnl -01/25/25: Group - Pill count as expected, Utox pos cocaine. Confirmatory testing sent. Chronic obstructive pulmonar y disease, unspecified COPD type 05/16/2024 Overview (09/05/2024): Following with [facility] pulmonology-Dr. Maldonado Continue with Combivent inhaler Claudication [...] Injections 11/2022 Encouraged stretching [facility] Continue SUBSYSTEMS ENGINEER at this time. Will perform random Utox [...] root compression . Seen by Neurosurgery at [facility], note pending Referred to Pain Management November 2024 Assessment & Plan (01/25/2025 1:44 PM EDT): -Good engagement and participation with Group Medical Visit model -Encouraged multifactorial approach to pain control including pharm and non- pharm modalities -Pill count as expected, Utox pos cocaine. Confirmatory testing sent. See web press jogger. Assessment & Plan (09/28/2024 2:02 PM EDT): [...] C7 fracture seen on CT scan at [facility] 10/28/23 He participated fully in group [...] C7 fracture seen on CT scan at [facility] 10/28/23 He participated fully in group [...] Injections 11/2022 Encouraged stretching Will refer to [facility] physical therapy Continue SUBSYSTEMS ENGINEER at this time. Will perform random Utox [...] lumbar pain. Encouraged stretching Will refer to [facility] Continue SUBSYSTEMS ENGINEER at this time. Will perform random Utox [...] organization. Date Type Department Care Team Description 03/17/2025 Telephone [facility] [address] [facility] [place] [address] Amy Pickett MD Nurse Triage 03/17/2025 Telephone [facility] [place] [address] Amy Pickett MD Medication Question 03/16/2025 Telephone [facility] [address] [place] [address] 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 RN 03/16/2025 Telephone [facility] [place] [address] Amy Pickett MD FYI 03/08/2025 Orders Only [facility] [place] [address] Amy Pickett MD 03/08/2025 Telephone [facility] [address] [place] [address] 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, RN 03/05/2025 Refill [facility] [place] [address] Amy Pickett MD Chronic low back pain, unspecified back pain laterality, unspecified whether sciatica present 03/03/2025 Telephone [facility] [place] [address] Amy Pickett MD Durable Medical Equipment 03/03/2025 Telephone [facility] [place] [address] Amy Pickett MD call back requesting 03/01/2025 9:10 AM EDT Clinical Support [facility] [place] [address] 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, RN roasterman 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 03/01/2025 Orders Only [facility] [address] [place] [address] Amy Pickett MD 03/01/2025 Telephone [facility] [address] [place] [address] 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, DARIANA 03/01/2025 Travel 02/24/2025 Refill [facility] [address] [place] [address] 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, quality improvement coordinator pain of both knees; Chronic low back pain, unspecified back pain laterality, unspecified whether sciatica present 02/24/2025 Telephone [facility] [address] [place] [address] Amy Pickett MD med 02/24/2025 Telephone [facility] [address] [place] [address] Amy Pickett MD Med Refill 02/19/2025 Refill [facility] [address] [place] [address] Amy Pickett MD 02/10/2025 9:30 AM EDT Office Visit [facility] [address] [place] [address] Amy Pickett MD Cervical spondylosis without myelopathy (Primary Dx); Chronic migraine without aura without status migrainosus, not intractable; Essential hypertension; H/O lipoma; Mass of wrist, right; Claudication of left lower extremity ([facility]); Health care maintenance; Lipoma, unspecified site; intermediate 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; Chronic right shoulder pain; Spondylosis of cervical spine 02/10/2025 Telephone [facility] [address] [place] [phone] Amy Pickett MD Change PCP; TRANSFER REQUEST 02/10/2025 Travel 02/08/2025 Refill [facility] [address] [place] [address] Amy Pickett MD 02/03/2025 Refill [facility] [address] [place] [address] Bri Noriega MD 02/01/2025 Telephone [facility] [address] [place] [address] Amy Pickett MD Durable Medical Equipment 01/27/2025 Orders Only [facility] External Provider, [facility] 01/25/2025 9:45 AM EDT Office Visit [facility] [address] [place] [address] Holly Wills, VALVE MAKER Spondylosis of cervical spine (Primary Dx); intermediate 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 01/25/2025 Telephone [facility] [address] [place] [address] 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 RN 01/25/2025 Travel 01/21/2025 Refill [facility] [address] [place] [address] Amy Pickett MD Chronic pain of both knees; Chronic low back pain, unspecified back pain laterality, unspecified whether sciatica present 01/11/2025 Refill [facility] [address] [place] [address] Brent Hanson MD 01/10/2025 Telephone [facility] [address] [place] [address] Amy Pickett MD TP request 12/29/2024 Telephone [facility] [address] [place] [address] Amy Pickett MD fyi 12/28/2024 9:00 AM EDT Clinical Support [facility] [address] [place] [address] Danay Flaherty, DARIANA intermediate 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 (Primary Dx) 12/28/2024 Travel 2024 Refill [facility] [address] [place] [address] 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, quality improvement coordinator pain of both knees; Chronic low back pain, unspecified back pain laterality, unspecified whether sciatica present 2024 Refill [facility] [address] [place] [address] Amy Pickett MD Moderate persistent asthma without complication 2024 Telephone [facility] [address] [place], [place] [phone] Amy Pickett MD Med Refill 12/19/2024 Refill [facility] [address] [place], [place] [phone] Chioma Mojica MD 12/16/2024 Telephone [facility] [address] [place], [place] [phone] 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 RN from Last 3 Months Immunizations Immunization Administration [...] Description 03/29/2025 9:45 AM EDT Office Visit [facility] [address] [place] [address] Health Maintenance Due Date Last Done Comments CT Colonography 1967 FIT DNA/Cologuard 1965 FIT 1967 FOBT 1965 Sigmoidoscopy 1965 Hepatitis A Vaccines (1 of 2 - Risk 2-dose series) 12/23/1986 Alcohol/Substance Use Screening 11/24/2025 11/24/2024 Depression Screening [...] Completed 01/27/2024, 05/15/2020, 08/10/2019, Additional history exists Zoster Vaccines Completed 04/02/2024, 07/08, 05/15/2020 HIV Screening Completed 09/29/2024, 03/19/2024 Hepatitis C Screening Completed 09/29/2024 , 09/29/2024, 03/19/2024, Additional history exists COVID-19 Vaccine Completed 03/15/2025, , 10/28/2021, Additional history exists Influenza Vaccine Completed 03/15/2025, , 03/19/2024, Additional history exists HIB Vaccines Aged [...] DRUG SCREEN Routine 03/01/2025 10:10 AM EDT roasterman 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 DRUG MONITOR, COCAINE METAB, QN, URINE Routine 03/01/2025 9:32 AM EDT XR WRIST 3+ VIEWS RIGHT Routine 01/27/2025 11:18 AM EDT XR ELBOW 1-2 VIEWS RIGHT Routine 01/27/2025 11:13 AM EDT XR SHOULDER 2+ VIEWS RIGHT Routine 01/27/2025 11:06 AM EDT POCT ROBIN-14 URINE DRUG SCREEN Routine 01/25/2025 10:15 AM EDT Spondylosis of cervical spine intermediate 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 DRUG MONITOR, COCAINE METAB, QN, URINE Routine 01/25/2025 9:30 AM EDT Spondylosis of cervical spine roasterman 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 POCT ROBIN-14 URINE DRUG SCREEN Routine 12/28/2024 10:32 AM EDT roasterman 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 HEPATITIS C [...] - 03/01/2025 10:10 AM EDT .UTOX cup Lot#[id number] Exp. 04/12/26 Internal Pass Control us Amy Berry MD POINT OF CARE SOHA T ENTER/EDIT ORDERABLES Final Result * Drug Monitoring, Cocaine Metabolite, Quantitative, Urine (03/01/2025 9:32 AM EDT) Only the most recent of2 resultswithin the time period is included. Benzoylecgonine [address] [facility] Comment:CUTOFF 100NG/MLPERFO RMING SITE:[employer] [facility], [address] [place], [place] [id number] System Support Administrator: MICHELLE GAUTAM MD, CLIA:[id number] Cocaine Comments SEE NOTE [facility] Comment:This drug testing is for medical treatment only. Analysiswas performed as non-forensic testing and these resultsshould be used only by healthcare providers torender diagnosis or treatment, or to monitor progress ofmedical conditions.Cocaine Notes:Benzoylecgonine detected is consistent with the use of thedrug Cocaine.LDT Notes:Confirmation tests were developed and their analyticalperformance characteristics have been determined by [employer]. It has not been cleared orapproved by the FDA. This assay has been validated pursuantto the CLIA regulations and is used for clinical purposes.Healthcare Providers needing Interpretation assistance,please contact us at [phone] ( ) M-F,8am to 10pm EST 03/01/2025 9:32 AM EDT 03/01/2025 1:39 PM EDT us Amy Berry MD LAB URINE ORDERAB LES Final Result [facility] [address] [place] [address] [phone] * XR Wrist 3+ Views Right (01/27/2025 11:18 AM EDT) Anatomical Region Laterality Modality Upper Extremities, Wrist Right Radiogr aphic Imaging 01/27/2025 11:1 8 AM EDT Narrative 01/27/2025 12:26 PM EDT [address] [address] XRay Report Signed Patient: Zain Welch MR# : [id number] : 1965 Acct:[id number] Age/Sex: 59 / M ADM Date: 01/27/25 Loc: HO.ED Attending Dr: Ordering Physician: Ailyn Carbone Date of Service: 01/27/25 Procedure(s): XR wrist RT min 3V Accession Number(s): [id number] cc: Ailyn Carbone; Amy Pickett MD EXAMINATION: [...] 01/27/25 1223 DD/ 1118 TD/TT: 01/27/25 1217 Director Of Officiating: Procedure Note Donotuseinterpreter, Image - 01/27/2025 [place] [address] XRay Report Signed Patient: Zain Welch LMR# : [id number] : 1965Acct:[id number] Age/Sex: 59 / MADM Date: 01/27/25 Loc: HO.ED Attending Dr: Ordering Physician: Ailyn Carbone Date of Service: 01/27/25 Procedure(s): XR wrist RT min 3V Accession Number(s): [id number] cc: Ailyn Carbone; Amy Pickett MD EXAMINATION: [...] Serrato MD Signed By: <Electronically signed by Daisy Diaz OV> 01/27/25 1223 DD/ 1118 TD/TT: 01/27/25 1217 Director Of Officiating: [facility] External Provider IMG XR PROCEDURES Edited Result - Final * XR Elbow 1-2 Views Right (01/27/2025 11:13 AM EDT) Anatomical Region Laterality Modality Upper Extremities, Elbow Right Radiogr aphic Imaging 01/27/2025 11:1 3 AM EDT Narrative 01/27/2025 12:25 PM EDT [place] [address] XRay Report Signed Patient: Zain Welch MR# : [id number] : 1965 Acct:[id number] Age/Sex: 59 / M ADM Date: 01/27/25 Loc: .ED Attending Dr: Ordering Physician: Ailyn Carbone Date of Service: 01/27/25 Procedure(s): XR elbow RT 2V Accession Number(s): [id number] cc: Ailyn Carbone; Amy Pickett MD EXAMINATION: [...] 01/27/25 1223 DD/ 1113 TD/TT: 01/27/25 1217 Director Of Officiating: Procedure Note Donotuseinterpreter, Image - 01/27/2025 [place] [address] XRay Report Signed Patient: Zain Welch LMR# : [id number] : 1965Acct:[id number] Age/Sex: 59 / MADM Date: 01/27/25 Loc: HO.ED Attending Dr: Ordering Physician: Ailyn Carbone Date of Service: 01/27/25 Procedure(s): XR elbow RT 2V Accession Number(s): [id number] cc: Ailyn Carbone; Amy Pickett MD EXAMINATION: [...] 01/27/25 1223 DD/ 1113 TD/TT: 01/27/25 1217 Director Of Officiating: [facility] External Provider IMG XR PROCEDURES Edited Result - Final * XR Shoulder 2+ Views Right (01/27/2025 11:06 AM EDT) Anatomical Region Laterality Modality Upper Extremities, Shoulder Right Radi ographic Imaging 01/27/2025 11:0 6 AM EDT Narrative 01/27/2025 12:25 PM EDT [address] [address] XRay Report Signed Patient: Zain Welch MR# : [id number] : 1965 Acct:[id number] Age/Sex: 59 / M ADM Date: 01/27/25 Loc: HO.ED Attending Dr: Ordering Physician: Ailyn Carbone Date of Service: 01/27/25 Procedure(s): XR shoulder RT min 2V Accession Number(s): [id number] cc: Ailyn Carbone; Amy Pickett MD EXAMINATION: [...] cervical spine no fully included in the hdmzt-wg-opja. Calcified plaque in the thoracic aortic arch. XR/XR shoulder RT min 2V IMPRESSION: Mild degenerative changes without acute fracture or dislocation. Electronically signed by: Tyler Cortez MD 01/27/2025 12:22 PM EDT Dictated By: Tyler Serrato MD Signed By: <Electronically signed by Tyler Reid MD in OV> 01/27/25 1222 DD/ 1106 TD/TT: 01/27/25 1217 Director Of Officiating: Procedure Note Donotuseinterpreter, Image - 01/27/[address] [address] XRay Report Signed Patient: Zain Welch LMR# : [id number] : 1965Acct:[id number] Age/Sex: 59 / MADM Date: 01/27/25 Loc: HO.ED Attending Dr: Ordering Physician: Ailyn Carbnoe Date of Service: 01/27/25 Procedure(s): XR shoulder RT min 2V Accession Number(s): [id number] cc: Ailyn Carbone; Amy Pickett MD EXAMINATION: [...] cervical spine no fully included in the pbprb-oe-gvkl. Calcified plaque in the thoracic aortic arch. XR/XR shoulder RT min 2V IMPRESSION: Mild degenerative changes without acute fracture or dislocation. Electronically signed by: Tyler Cortez MD 01/27/2025 12:22 PM EDT RP Dictated By: Tyler Serrato MD Signed By: <Electronically signed by Tyler Reid MDin OV> 01/27/25 1222 DD/ 1106 TD/TT: 01/27/25 1217 Director Of Officiating: [facility] External Provider IMG XR PROCEDURES Edited Result - Final * (ABNORMAL) Hepatitis C Antibody with Reflex to HCV, RNA, Quantitative, Real- Time PCR (09/29/2024 3:37 PM EDT) Hepatitis C Antibody Reactive( A) Nonreactive [facility] Comment:Presumptive evidence of antibodies to HCV. Blood Venous blood specimen / Unknown 09/29/2024 3:37 PM EDT 09/29/2024 3:38 PM EDT Brent Fischer MD LAB BLOOD ORDERABL ES Final Result [facility] [address] [place] [phone] * HIV-1/2 Antigen and Antibodies, Fourth Generation, with Reflexes (09/29/2024 3:37 PM EDT) HIV AB/AG Nonreactive Nonreactive [facility] Comment:HIV-1 p24 Ag and/or HIV-1/HIV-2 Ab not detected.A test result that is nonreactive does not exclude thepossibility of exposure to or infection with HIV-1 and/orHIV-2. Nonreactive results in this assay for individualswith prior exposure to HIV-1 and/or HIV-2 may be due toantigen and antibody levels that are below the limit ofdetection of this assay.The [employer] HIV Ag/Ab Combo assay result andsupplemental assay results should be interpreted inconjunction with the patient's clinical presentation,history and other laboratory results. If the results areinconsistent with clinical evidence, additional testing issuggested to confirm the result. Blood Venous blood specimen / Unknown 09/29/2024 3:37 PM EDT 09/29/2024 3:38 PM EDT us Brent Fischer MD LAB BLOOD ORDERABL ES Final Result [facility] [address] [place] [phone] * (ABNORMAL) Lipid Panel, Standard (09/29/2024 3:37 PM EDT) Triglycerides 155(H) <150 mg/dL [facility] Comment:Desirable Triglyceri de: less than 150 mg/dLBorderline High Triglyceride 150-199 mg/dLHigh Triglyceride: 200-499 mg/dLVery High Triglyceride: greater than or equal to 5OO mg/dL Cholesterol 211(H) <200 mg/dL [facility] Comment:Desirable Cholestero l: less than 200 mg/dLBorderline High Cholesterol: 200-239 mg/dLHigh Cholesterol: greater than 239 mg/dL LDL Cholesterol Calculated 131(H) <100 mg/dL [facility] Comment:Desirable LDL: less than 100 mg/dLNear Optimal/Above Optimal LDL: 110- 129 mg/dLBorderline High LDL: 130-159 mg/dLHigh LDL: 160-189 mg/dLVery High LDL: greater than or equal to 190 mg/dL HDL Cholesterol 49 >40 mg/dL [facility] Comment:Desirable HDL: great er than 40 mg/dL Note: This HDL assay may give artificially low results in patients with liver disease. Blood Venous blood specimen / Unknown 09/29/2024 3:37 PM EDT 09/29/2024 3:38 PM EDT us Amy Berry MD LAB BLOOD ORDERAB LES Final Result [facility] [address] [place] [phone] * Hm Colonoscopy (01/06/2018 8:00 AM EDT) Historical Provider HEALTH MAINTENANCE Final Result from Last 3 Months or Most Recently Relevant to Health Maintenance Insurance [address] [place], [place] [facility]ARE < 65 [place] [id number] [address] [place], [place] [address] [place], [place] Care Teams Fountain Supervisor Relationship Specialty Start Date End Date Amy Pickett MD [address] [place] [address] PCP - General Internal Medicine 04/07/23
--- OUTSIDE RECORDS SUMMARY | 2025-03-17 19:22 | XMS_ITS | Encounter Summary ---
Author Organization [employer] Address [address] [facility] 7 [place] [address] Care Team Providers Care Commercial Credit Specialist Name Role Phone Amy Pickett MD Primary Care Pro vider Reason for Visit * Reason Onset Date Comments Medication Question 03/17/2025 Encounter Details Date Type Department Care Team ([facility] st Contact Info) Description 03/17/2025 Telephone [facility] [address] [place], [place] [phone] Amy Pickett MD [address] [place] [address] Medication Question Social History Tobacco Use Types Packs/Day Years [...] encounter Miscellaneous Notes * Telephone Encounter - James Diana - 03/17/2025 2:43 PM EDT Tc from pt requesting Tramadol as a pain killer. Any questions contact pt at [phone] * Telephone Encounter - Andrew Maldonado - 03/17/2025 11:19 AM EDT Tc from Domenica, pt's [employer], stating pt had a surgery done but due to pt being prescribed Oxycodone they were unable to prescribe pt any pain medication. Domenica is hoping pt can be prescribed some sort of muscle relaxer or an accomodation to be prescribed medication. If any questions please contact Domenica at [phone]. documented in this encounter Plan of Treatment Upcoming Encounters Date Type Department Care Team ([facility] st Contact Info) Description 03/29/2025 9:45 AM EDT Office Visit [facility] [address] [place] [phone] documented as of this encounter Visit Diagnoses Not on filedocumented in this encounter Additional Health Concerns Assessment Noted Time PHQ-9 Depression Total Score: 0 11/25/19 25 2:10 PM EDT documented as of this encounter Care Teams Commercial Credit Specialist Relationship Specialty Start Date End Date Amy Pickett MD [address] [place] [address] PCP - General Internal Medicine 04/07/23 documented as of this encounter
--- OUTSIDE RECORDS SUMMARY | 2025-03-17 19:22 | XMS_ITS | Encounter Summary ---
Author Organization [employer] Address [address] [facility] 7t [place] [address] Care Team Providers Care Barratte Operator Name Role Phone Amy Pickett MD Primary Care Pro vider Encounter Details Date Type Department Care Team (Late st Contact Info) Description 06/24/2024 Orders Only [facility] MEDICINE [address] [place] [address] Provider, MD Bryan Social History Tobacco Use [...] your housing situation today? I have claudio medrnao 05/14/[address] you li [...] Visit [facility] MEDICINE [address] [place] [address] documented as of this encounter Procedures Procedure [...] documented as of this encounter Care Teams Barratte Operator Relationship Specialty Start Date End Date Amy Pickett MD [address] [place] [address] PCP - General Internal Medicine 04/07/23 documented as of this encounter
--- OUTSIDE RECORDS SUMMARY | 2025-03-17 19:22 | XMS_ITS | Encounter Summary ---
Author Organization [employer] Address 75 [facility] 7 [place] [address] Care Team Providers Care Grip Name Role Phone Amy Pickett MD Primary Care Pro vider Reason for Visit * Reason Onset Date Comments Appointment Request 09/02/2023 Encounter Details Date Type Department Care Team ([facility] st Contact Info) Description 09/02/2023 Telephone [facility]INE [address] [place], [place] [phone] Amy Pickett MD [address] [place] [address] Appointment Request Social History Tobacco Use Types [...] t he electric, gas, oil or water [employer] threatened to shut off services in your [...] from pt requesting a transfer patient appointment. Family Consultant does not see any availability. Pt states he needs appointment as soon as possible due to controlled medication. States needs to be seen bya new provider to continue medication. Please contact pt at [phone] documented in this encounter Plan of Treatment Upcoming Encounters Date Type Department Care Team (Late st Contact Info) Description 03/29/2025 9:45 AM EDT Office Visit [facility] [address] [place] [phone] documented as of this encounter Visit Diagnoses Not on filedocumented in this encounter Additional Health Concerns Assessment Noted Time PHQ-9 Depression Total Score: 24 023 10:05 AM EDT documented as of this encounter Care Teams Grip Relationship Specialty Start Date End Date Amy Pickett MD [address] [place] [address] PCP - General Internal Medicine 04/07/23 documented as of this encounter
--- OUTSIDE RECORDS SUMMARY | 2025-03-17 19:22 | XMS_ITS | Clinical Summary ---
Author Organization [facility] Address [address] [place] [address] Care Team Providers Care Lease Out Worker Name Role Phone Donna Harmon MD Primary [...] Sigmoidoscopy 12/23/2016 Influenza Vaccine (#1) 2025 Insurance [facility] RUBEN JAIMES [phone] Care Teams Lease Out Worker Relationship Specialty Start Date End Date Donna Harmon MD PCP - General 05/11/19
--- OUTSIDE RECORDS SUMMARY | 2025-03-17 19:22 | XMS_ITS | Encounter Summary ---
Author Organization [employer] Address [address] [place] [address] 7t [place] [address] Care Team Providers Care Health Claims Examiner Name Role Phone Elise Glover JOB PLACEMENT SPECIALIST Primary Care Provider Amy Ware MD Primary Care Pro vider Reason for Visit * Reason Onset Date Comments Durable Medical Equipment 10/07/2022 Encounter Details Date Type Department Care Team (Late st Contact Info) Description 10/07/2022 Telephone [facility] MEDICINE [address] [place] [address] Elise Glover, JOB PLACEMENT SPECIALIST Durable Medical Equipment Social History Tobacco Use [...] If any questions please contact Anabelle at [phone] documented in this encounter Plan of Treatment Upcoming Encounters Date Type Department Care Team (Late st Contact Info) Description 03/29/2025 9:45 AM EDT Office Visit [facility] MEDICINE [address] [place] [address] documented as of this encounter Visit Diagnoses Not on filedocumented in this encounter Additional Health Concerns Assessment Noted Time PHQ-9 Depression Total Score: 24 10/01/ 023 10:05 AM EDT documented as of this encounter Care Teams Health Claims Examiner Relationship Specialty Start Date End Date Elise Glover FNP PCP - General Family Medicine 07/09/22 04/06/23 Amy Pickett MD 230 [place] [address] PCP - General Internal Medicine 04/07/23 documented as of this encounter
--- OUTSIDE RECORDS SUMMARY | 2025-03-17 19:22 | XMS_ITS | Encounter Summary ---
Author Organization [employer] Address 75 [facility] 7 [place] [address] Care Team Providers Care Site Safety Manager Name Role Phone Amy Pickett MD Primary Care Pro vider Reason for Visit * Reason Onset Date Comments Med Refill 02/24/2025 Encounter Details Date Type Department Care Team ([facility] st Contact Info) Description 02/24/2025 Telephone [facility] MEDICINE 230 [place], [place] [phone] Amy Pickett MD 230 [place], [place] [phone] Med Refill Social History Tobacco Use Types [...] immediate release tablet To be sent to: [facility]/pharmacy #[id number] - [address] documented in this encounter Plan of Treatment Upcoming Encounters Date Type Department Care Team (Late st Contact Info) Description 03/29/2025 9:45 AM EDT Office Visit [facility] MEDICINE [address] [place] [address] documented as of this encounter Visit Diagnoses Not on filedocumented in this encounter Additional Health Concerns Assessment Noted Time PHQ-9 Depression Total Score: 0 11/25/19 25 2:10 PM EDT documented as of this encounter Care Teams Site Safety Manager Relationship Specialty Start Date End Date Amy Pickett MD [address] [place] [address] PCP - General Internal Medicine 04/07/23 documented as of this encounter
--- OUTSIDE RECORDS SUMMARY | 2025-03-17 19:22 | XMS_ITS | Encounter Summary ---
Author Organization [email or web address] Address [address] [place] [address] 7 [place] [address] Care Team Providers Care Public Transit Bus Driver Name Role Phone Elise Glover PUTTY PATCHER Primary Care Provider Amy Ware MD Primary Care Pro vider Reason for Visit * Reason Onset Date Comments triage 08/22/2022 Encounter Details Date Type Department Care Team (Late st Contact Info) Description 08/22/2022 Telephone [facility] MEDICINE [address] [place] [address] [phone] Elise Glover FNP triage Social History Tobacco [...] EDT Office Visit [facility] MED[facility]INE [address] [place] [address] [phone] documented as of this encounter Visit Diagnoses Not on filedocumented in this encounter Care Teams Public Transit Bus Driver Relationship Specialty Start Date End Date Elise Glover FNP PCP - General Family Medicine 07/09/22 04/06/23 Amy Pickett MD [address] [place] [address] PCP - General Internal Medicine 04/07/23 documented as of this encounter
--- OUTSIDE RECORDS SUMMARY | 2025-03-17 19:22 | XMS_ITS | Encounter Summary ---
Author Organization [employer] Address 75 [facility] 7 [place] [address] Care Team Providers Care Calciminer Name Role Phone Amy Pickett MD Primary Care Pro vider Reason for Visit * Reason Onset Date Comments Appointment Request 10/05/2024 Encounter Details Date Type Department Care Team ([facility] st Contact Info) Description 10/05/2024 Telephone [facility] MEDICINE 230 [place], [place] [phone] Amy Pickett MD [address] [place] [address] Appointment Request Social History Tobacco Use Types [...] able to make it. Contact Isa at [phone] documented in this encounter Plan of Treatment Upcoming Encounters Date Type Department Care Team (Late st Contact Info) Description 03/29/2025 9:45 AM EDT Office Visit [facility] MEDICINE [address] [place] [address] documented as of this encounter Visit Diagnoses Not on filedocumented in this encounter Additional Health Concerns Assessment Noted Time PHQ-9 Depression Total Score: 10 024 9:41 AM EDT documented as of this encounter Care Teams Calciminer Relationship Specialty Start Date End Date Amy Pickett MD [address] [place] [address] PCP - General Internal Medicine 04/07/23 documented as of this encounter
--- OUTSIDE RECORDS SUMMARY | 2025-03-17 19:22 | XMS_ITS | Encounter Summary ---
Author Organization [employer] Address [address] [place] [address] 7 [place] [address] Care Team Providers Care Pigs Feet Finisher Name Role Phone Amy Pickett MD Primary Care Pro vider Reason for Visit * Reason Onset Date Comments Med Refill 2024 Encounter Details Date Type Department Care Team ([facility] st Contact Info) Description 2024 Telephone [facility] MEDICINE 230 [place], [place] [phone] Amy Pickett MD 230 [place], [place] [phone] Med Refill Social History Tobacco Use Types [...] immediate release tablet To be sent to: [facility]/pharmacy #[id number] documented in this encounter Plan of Treatment Upcoming Encounters Date Type Department Care Team (Late st Contact Info) Description 03/29/2025 9:45 AM EDT Office Visit [facility] MEDICINE 230 [place], [place] [phone] documented as of this encounter Visit Diagnoses Not on filedocumented in this encounter Additional Health Concerns Assessment Noted Time PHQ-9 Depression Total Score: 0 11/25/19 25 2:10 PM EDT documented as of this encounter Care Teams Pigs Feet Finisher Relationship Specialty Start Date End Date Amy Pickett MD 230 [place], [place] [phone] PCP - General Internal Medicine 04/07/23 documented as of this encounter
--- OUTSIDE RECORDS SUMMARY | 2025-03-17 19:22 | XMS_ITS | Encounter Summary ---
Author Organization [employer] Address [address] [place] [address] 7t [place] [address] Care Team Providers Care Autocad Detailer Name Role Phone Elise Glover GLASS TUBE BENDER Primary Care Provider Amy Ware MD Primary Care Pro vider Encounter Details Date Type Department Care Team (Late st Contact Info) Description 01/14/2023 Orders Only [facility] MEDICINE [address] [place] [address] [phone] Elise Glover FNP Social History Tobacco Use [...] 9:45 AM EDT Office Visit [facility] MEDICINE [address] [place] [address] [phone] documented as of this encounter Visit Diagnoses Not on filedocumented in this encounter Additional Health Concerns Assessment Noted Time PHQ-9 Depression Total Score: 24 03/28/2 023 10:05 AM EDT documented as of this encounter Care Teams Autocad Detailer Relationship Specialty Start Date End Date Elise Glover FNP PCP - General Family Medicine 07/09/22 04/06/23 Amy Pickett MD [address] [place] [phone] PCP - General Internal Medicine 04/07/23 documented as of this encounter
--- OUTSIDE RECORDS SUMMARY | 2025-03-17 19:22 | XMS_ITS | Encounter Summary ---
Author Organization [employer] Address 75 [facility] 7t [place] [address] Care Team Providers Care Lead Front End Developer Name Role Phone Amy Pickett MD Primary Care Pro vider Encounter Details Date Type Department Care Team ([facility] st Contact Info) Description 03/16/2025 Telephone [facility] MED & PEDS [address] [place], [place] [phone] 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, RN [address] [place] [address] Social History Tobacco Use Types Packs/Day Years [...] Telephone Encounter - 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 RN - 03/16/2025 3:59 PM EDT TC to pt regarding message below. Spoke with pt's CHEMICAL LABORATORY SCIENTIST. Pt will come in to the group on 03/29 to do only pill count and utox and will be seen as a nurse visit. documented in this encounter Plan of Treatment Upcoming Encounters Date Type Department Care Team (Late st Contact Info) Description 03/29/2025 9:45 AM EDT Office Visit [facility] MEDICINE [address] [place] [address] documented as of this encounter Visit Diagnoses Not on filedocumented in this encounter Additional Health Concerns Assessment Noted Time PHQ-9 Depression Total Score: 0 11/25/19 25 2:10 PM EDT documented as of this encounter Care Teams Lead Front End Developer Relationship Specialty Start Date End Date Amy Pickett MD [address] [place] [address] PCP - General Internal Medicine 04/07/23 documented as of this encounter
--- OUTSIDE RECORDS SUMMARY | 2025-03-17 19:22 | XMS_ITS | Encounter Summary ---
Author Organization [employer] Address 75 [facility] 7t [place] [address] Care Team Providers Care Reinforcing Iron And Rebar Workers Name Role Phone Amy Pickett MD Primary Care Pro vider Encounter Details Date Type Department Care Team ([facility] st Contact Info) Description 10/01/2024 Orders Only [facility] MED & PEDS [address] [place], [place] [phone] Za Preston MD 505 [place] [address] Social History Tobacco Use Types Packs/Day Years [...] 03/29/2025 9:45 AM EDT Office Visit [facility] MEDICINE [address] [place] [phone] documented as of this encounter Visit Diagnoses Not on filedocumented in this encounter Additional Health Concerns Assessment Noted Time PHQ-9 Depression Total Score: 10 024 9:41 AM EDT documented as of this encounter Care Teams Reinforcing Iron And Rebar Workers Relationship Specialty Start Date End Date Amy Pickett MD [address] [place] [address] PCP - General Internal Medicine 04/07/23 documented as of this encounter
--- OUTSIDE RECORDS SUMMARY | 2025-03-17 19:22 | XMS_ITS | Encounter Summary ---
Author Organization [employer] Address [address] [place] [address] 7 [place] [address] Care Team Providers Care Senior Scheduler Name Role Phone Amy Pickett MD Primary Care Pro vider Reason for Visit * Reason Onset Date Comments Med Refill 08/06/2024 Encounter Details Date Type Department Care Team ([facility] st Contact Info) Description 08/06/2024 Telephone [facility] MEDICINE 230 [place], [place] [phone] Amy Pickett MD 230 [place], [place] [phone] Med Refill Social History Tobacco Use Types [...] nebulizer solution To be sent to: [facility]/pharmacy #[id number] - [address] documented in this encounter Plan of Treatment Upcoming Encounters Date Type Department Care Team (Late st Contact Info) Description 03/29/2025 9:45 AM EDT Office Visit [address] [phone] documented as of this encounter Visit Diagnoses Not on filedocumented in this encounter Additional Health Concerns Assessment Noted Time PHQ-9 Depression Total Score: 10 024 9:41 AM EDT documented as of this encounter Care Teams Senior Scheduler Relationship Specialty Start Date End Date Amy Pickett MD [address] [place] [address] PCP - General Internal Medicine 04/07/23 documented as of this encounter
--- OUTSIDE RECORDS SUMMARY | 2025-03-17 19:22 | XMS_ITS | Encounter Summary ---
Author Organization [employer] Address 75 [facility] 7 [place] [address] Care Team Providers Care Logistics Planning Manager Name Role Phone Amy Pickett MD Primary Care Pro vider Reason for Visit * Reason Onset Date Comments Nurse Triage 03/17/2025 Encounter Details Date Type Department Care Team ([facility] st Contact Info) Description 03/17/2025 Telephone [facility] MEDICINE [address] [place], [place] [phone] Amy Pickett MD [address] [place] [address] Nurse Triage Social History Tobacco Use Types [...] encounter Miscellaneous Notes * Telephone Encounter - Lilly Larios RN - 03/17/2025 4:14 PM EDT Call returned to Zain Lazcano to triage below at [phone]. Pt states having a procedure done to remove stimulator to be able to complete MRI 04/01/25. Per pt current oxycodone prescription is not helping with shoulder pain. Pt wants alternate medication to help with pain relief until MRI is completed. Pt states is looking for muscle relaxer rx x 2 weeks like what was prescribed at ER. Pt advised will forward request to PCP to further review. Pt states does not want to keep going to ER for injection that only lasts 3 days. Pt advised will forward note to PCP to review and further advise. Pt advised if having severe pain to seek ER for immediate medical attention. Protocol Used: Shoulder Pain (Adult) Protocol-Based Disposition: See in Office or Video Visit within 2 Weeks Override (Final) Disposition: Discuss with PCP and Callback by Nurse Today Override Reason: Prescription issue Video visit offer not recorded Positive Triage Question: * Shoulder pain is a chronic symptom (recurrent or ongoing AND present > 4 weeks) * All higher-acuity triage questions were negative Care Advice Discussed: * Reasons To Call Back - Severe pain lasts more than 2 hours after pain medicine - Chest pain or difficulty breathing occurs - You become worse * Telephone Encounter - Liz Hernandez RN - 03/17/2025 4:10 PM EDT Called pt. Luz Marina answered phone and states that pt. Is currently on the phone with a packing and wrapping supervisor [facility]. She states that pt. 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 Pt. Luz Marina states that PCP will not give pt. Additional pain medication because pt. Is alreadyon Oxycodone. I advised that I will write this down as pt. Is currently speaking with a Rides Attendant. * Telephone Encounter - James Diana - 03/17/2025 4:02 PM EDT Symptom: Shoulder Pain - Not From Injury Outcome: Schedule an urgent appointment (within 1 hour) or talk to a nurse or provider soon Reason: Severe pain now The caller accepted this outcome. Contact pt at [phone] Pt was requesting for tramadol for his shoulder pain. Pt was already advised that he cannot take tramadol and Oxycodone at the same time. documented in this encounter Plan of Treatment Upcoming Encounters Date Type Department Care Team (Late st Contact Info) Description 03/29/2025 9:45 AM EDT Office Visit [facility] MEDICINE [address] [place] [address] documented as of this encounter Visit Diagnoses Not on filedocumented in this encounter Additional Health Concerns Assessment Noted Time PHQ-9 Depression Total Score: 0 11/25/19 25 2:10 PM EDT documented as of this encounter Care Teams Logistics Planning Manager Relationship Specialty Start Date End Date Amy Pickett MD [address] [place] [phone] PCP - General Internal Medicine 04/07/23 documented as of this encounter
--- OUTSIDE RECORDS SUMMARY | 2025-03-17 19:22 | XMS_ITS | Encounter Summary ---
Author Organization [employer] Address 75 [facility] 7 [place] [address] Care Team Providers Care Network Relations Consultant Name Role Phone Amy Pickett MD Primary Care Pro vider Reason for Visit * Reason Onset Date Comments Results 10/01/2024 Encounter Details Date Type Department Care Team ([facility] st Contact Info) Description 10/01/2024 Telephone [facility] MEDICINE 230 [place], [place] [phone] Amy Pickett MD [address] [place] [address] Results Social History Tobacco Use Types Packs/Day [...] Blood Test Date when done: 09/29/24 Facility: [facility] Contact pt at [phone] documented in this encounter Plan of Treatment Upcoming Encounters Date Type Department Care Team (Late st Contact Info) Description 03/29/2025 9:45 AM EDT Office Visit [facility] MEDICINE [address] [place] [address] documented as of this encounter Visit Diagnoses Not on filedocumented in this encounter Additional Health Concerns Assessment Noted Time PHQ-9 Depression Total Score: 10 024 9:41 AM EDT documented as of this encounter Care Teams Network Relations Consultant Relationship Specialty Start Date End Date Amy Pickett MD [address] [place], [place] [phone] PCP - General Internal Medicine 04/07/23 documented as of this encounter
--- OUTSIDE RECORDS SUMMARY | 2025-03-17 19:22 | XMS_ITS | Encounter Summary ---
Author Organization [employer] Address 75 [facility] 7 [place] [address] Care Team Providers Care Home Aide Name Role Phone Amy Pickett MD Primary Care Pro vider Reason for Visit * Reason Comments Med Refill Encounter Details Date Type Department Care Team ([facility] st Contact Info) Description 06/17/2024 Refill [facility] MEDICINE [address] [place], [place] [phone] Amy Pickett MD [address] [place] [address] Social History Tobacco Use Types Packs/Day Years [...] Description 03/29/2025 9:45 AM EDT Office Visit [facility] MEDICINE [address] [place] [address] documented as of this encounter Visit Diagnoses Not on filedocumented in this encounter Additional Health Concerns Assessment Noted Time PHQ-9 Depression Total Score: 10 024 9:41 AM EDT documented as of this encounter Care Teams Home Aide Relationship Specialty Start Date End Date Amy Pickett MD [address] [place] [address] PCP - General Internal Medicine 04/07/23 documented as of this encounter
--- OUTSIDE RECORDS SUMMARY | 2025-03-17 19:22 | XMS_ITS | Encounter Summary ---
Author Organization [employer] Address 75 [facility] 7 [place] [address] Care Team Providers Care Pharmacy Resource Tech Name Role Phone Amy Pickett MD Primary Care Pro vider Reason for Visit * Reason Onset Date Comments call back requesting 03/03/2025 Encounter Details Date Type Department Care Team ([facility] st Contact Info) Description 03/03/2025 Telephone [facility] MEDICINE 230 [place], [place] [phone] Amy Pickett MD [address] [place] [address] call back requesting Social History Tobacco Use [...] the pt and spoke with the pt RISK MANAGEMENT PROFESSIONAL Domenica (HIPAA compliant) in regards to the [...] device. Domenica called the pt urologist at [facility] for guidance as the pt is [...] out of he's body. Contact pt at [phone] documented in this encounter Plan of Treatment Upcoming Encounters Date Type Department Care Team (Late st Contact Info) Description 03/29/2025 9:45 AM EDT Office Visit [facility] MEDICINE [address] [place] [address] documented as of this encounter Visit Diagnoses Not on filedocumented in this encounter Additional Health Concerns Assessment Noted Time PHQ-9 Depression Total Score: 0 11/25/19 25 2:10 PM EDT documented as of this encounter Care Teams Pharmacy Resource Tech Relationship Specialty Start Date End Date Amy Pickett MD [address] [place] [address] PCP - General Internal Medicine 04/07/23 documented as of this encounter
--- OUTSIDE RECORDS SUMMARY | 2025-03-17 19:22 | XMS_ITS | Encounter Summary ---
Author Organization [employer] Address [address] [facility] 7 [place] [address] Care Team Providers Care Brokerage Office Manager Name Role Phone Amy Pickett MD Primary Care Pro vider Reason for Visit * Reason Onset Date Comments FYI 03/16/2025 Encounter Details Date Type Department Care Team ([facility] st Contact Info) Description 03/16/2025 Telephone [facility] MEDICINE [address] [place], [place] [phone] Amy Pickett MD 230 [place] [address] FYI Social History Tobacco Use Types Packs/Day Years [...] Telephone Encounter - Brooke Reid RN - 03/16/2025 3:26 PM EDT Telephone call returned to Domenica BLOOM on HIP[employer] who reports pt currently having surgery at [facility] through [facility] to get SNS device removed so that he can have MRI done as he couldn't have MRI with the implant and he has excruciating 10/10 shoulder pain and can't lift his arm. Advised to call [facility] centralized scheduling to r/s MRI now that implant is being removed. Texted her their phone number via twidox text at her request. She reports that they don't think that SNS device was even working because it looks like it malfunctioned and it was . She reports that pt is upset as he thought that there was a plan for him tohave it removed, have MRI, and then get it put back in a quickly but in pre-op was told that they don't know when they'll put it back. Might need new referral to have it replaced. Advised if it does need a new referral, let us know. She reports pt may need wound care supplies after today's surgery.Advised to request from the surgeon's office as they know what he specifically needs. She requestedstatus on TP. Informed I see it was discussed 02/25/25. Will send message to status check. TP not yet scheduled. She reports that she feels provider doesn't, take his pain seriously . She is also requesting that pt's upcoming PM group appt be changed to a normal RESIDENCE MANAGER appt. Seeing as though he is having surgery today, he won't be able to sit in group for 2 hrs but can go give urine and do pill count one on one. She also reports that he doesn't like the group since he is the only man. He is in pain sitting down for hours and doesn't get anything out of it. Would rather do RESIDENCE MANAGER visits. Informed I would send message regarding this. * Telephone Encounter - Jesusita Castellanos - 03/16/2025 3:01 PM EDT Tc from [facility] stating specialist pritesh to give him an emergency surgery to get the implant out. So now pt is able to do MRI. documented in this encounter Plan of Treatment Upcoming Encounters Date Type Department Care Team (Late st Contact Info) Description 03/29/2025 9:45 AM EDT Office Visit [facility] MEDICINE [address] [place] [address] documented as of this encounter Visit Diagnoses Not on filedocumented in this encounter Additional Health Concerns Assessment Noted Time PHQ-9 Depression Total Score: 0 11/25/19 25 2:10 PM EDT documented as of this encounter Care Teams Brokerage Office Manager Relationship Specialty Start Date End Date Amy Pickett MD [address] [place] [address] PCP - General Internal Medicine 04/07/23 documented as of this encounter
--- OUTSIDE RECORDS SUMMARY | 2025-03-17 19:22 | XMS_ITS | Encounter Summary ---
Author Organization [employer] Address 75 [facility] 7t [place] [address] Care Team Providers Care Executive Compensation Analyst Name Role Phone Elise Glover PROJECT ACCOUNT MANAGER Primary Care Provider Amy Ware MD Primary Care Pro vider Reason for Visit * Reason Comments Med Change Request Encounter Details Date Type Department Care Team (Late st Contact Info) Description 03/03/2023 Refill [facility] [address] [place] [address] Elise Glover FNP Essential hypertension Social History [...] Description 03/29/2025 9:45 AM EDT Office Visit [facility] [address] [place] [address] documented as of this encounter Visit Diagnoses Diagnosis Essential hypertension Unspecified essential hypertension documented in this encounter Additional Health Concerns Assessment Noted Time PHQ-9 Depression Total Score: 24 10/01/ 023 10:05 AM EDT documented as of this encounter Care Teams Executive Compensation Analyst Relationship Specialty Start Date End Date Elise Glover FNP PCP - General Family Medicine 07/09/22 04/06/23 Amy Pickett MD [address] [place] [address] PCP - General Internal Medicine 04/07/23 documented as of this encounter
--- OUTSIDE RECORDS SUMMARY | 2025-03-17 19:22 | XMS_ITS | Encounter Summary ---
Author Organization [employer] Address [address] [place] [address] 7 [place] [address] Care Team Providers Care Director Of Physical Therapy Name Role Phone Amy Pickett MD Primary Care Pro vider Reason for Visit * Reason Onset Date Comments Change PCP 02/10/2025 TRANSFER REQUEST 02/10/2025 Encounter Details Date Type Department Care Team (Late st Contact Info) Description 02/10/2025 Telephone [facility] MEDICINE [address] [place], [place] [phone] Amy Pickett MD [address] [place], [place] [phone] Change PCP; TRANSFER REQUEST Social History Tobacco [...] the past 12 months, has t he [employer], gas, oil or water [employer] threatened to shut off services in your [...] Encounter - Brooke Reid RN - 03/16/2025 3:42 PM EDT Pt's SEARCH ENGINE MARKETING MANAGER requesting status on TP * Telephone Encounter - Michelle Kapoor RN - 02/25/2025 4:21 PM EDT Call returned to Patient at [phone] regarding Transfer Request. Voicemail left requesting a return call. Call placed to Rossana Fischer SEARCH ENGINE MARKETING MANAGER at [phone] as directed/ Authorized by Patient. Rossana reports [...] appt is completed with a new Provider. Power Generation Engineer to contact Patient with a Transfers Patient appt when one becomes available. Drevinay verbalizes understanding and agreement with the plan of care. * Telephone Encounter - Andrea Palacio - 02/24/2025 10:11 AM EDT Tc from pt requesting a call back regarding prior message Contact pt at [phone] if no answer call [phone] Rossana Fischer SEARCH ENGINE MARKETING MANAGER * Telephone Encounter - Michelle Kapoor RN [...] Description 03/29/2025 9:45 AM EDT Office Visit [facility] MEDICINE [address] [place] [address] documented as of this encounter Visit Diagnoses Not on filedocumented in this encounter Additional Health Concerns Assessment Noted Time PHQ-9 Depression Total Score: 0 11/25/19 25 2:10 PM EDT documented as of this encounter Care Teams Director Of Physical Therapy Relationship Specialty Start Date End Date Amy Pickett MD [address] [place] [address] PCP - General Internal Medicine 04/07/23 documented as of this encounter
[2025-03-17 19:24] VITALS: BP 146/80; PULSE 101; RESP 16; TEMP 36.7; O2SAT 95
== END 2025-03-17 19:24 | disposition home or self-care (01) ==
LOC: HO.ED 19:20
PROVIDERS: Emergency Provider Student in an Organized Health Care Education/Training Program; PCP Student in an Organized Health Care Education/Training Program
DX: M25.511 Pain in right shoulder (principal); G89.29 Other chronic pain; R00.0 Tachycardia, unspecified; I10 Essential (primary) hypertension; M19.90 Unspecified osteoarthritis, unspecified site; Z72.0 Tobacco use; Z79.899 Other long term (current) drug therapy
CPT/HCPCS: 96372; 99283; 99284; J1885

== ENCOUNTER 2025-03-22 13:07 | Outpatient (REF) | payer OTHER, SELFPAY ==
--- NOTE | ~2025-03-22 | XR_ITS ---
EXAMINATION: XR PELVIS CLINICAL INFORMATION: BLADDER STIMULATOR REMOVED COMPARISON: October 03, 2021 CT abdomen and pelvis TECHNIQUE: AP view of the pelvis. FINDINGS: Serpentine sclerotic bands are present across most of the subchondral bone in the left femoral head and tracking across the central and lateral margin of the left femoral head. There is no subchondral lucency or subchondral fracture. Joint spaces preserved. The right hip joint space is maintained. There is bony prominence along the lateral right femoral head neck junction. Right-sided bladder stimulator generator and wire with lead is no longer present. There is mild narrowing of the right SI joint and sclerosis inferiorly. 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 Morphology of the right femoral head neck junction increases risk for cam-type femoral acetabular impingement. Interval bladder stimulator removal. No retained metal. Mild to moderate degenerative changes are evident in the right SI joint. Electronically signed by: Amado Limon MD 03/22/2025 01:43 PM EDT
--- OUTSIDE RECORDS SUMMARY | 2025-03-22 17:04 | XMS_ITS | Encounter Summary ---
Author Organization [employer] Address 75 [facility] [place] 7t [place] [address] Care Team Providers Care Telephone Sales Agent Name Role Phone Amy Pickett MD Primary Care Pro vider Encounter Details Date Type Department Care Team ([facility] st Contact Info) Description 03/17/2025 Orders Only [facility] MEDICINE 230 [place], [place] [phone] Amy Pickett MD 230 [place] [address] Social History Tobacco Use Types Packs/Day Years [...] Description 03/29/2025 9:45 AM EDT Office Visit [facility] MEDICINE 230 [place] [address] documented as of this encounter Visit Diagnoses Not on filedocumented in this encounter Additional Health Concerns Assessment Noted Time PHQ-9 Depression Total Score: 0 11/25/19 25 2:10 PM EDT documented as of this encounter Care Teams Telephone Sales Agent Relationship Specialty Start Date End Date Amy Pickett MD [address] [place] [address] PCP - General Internal Medicine 04/07/23 documented as of this encounter
--- OUTSIDE RECORDS SUMMARY | 2025-03-22 17:04 | XMS_ITS | Encounter Summary ---
Author Organization [facility] [employer] Address 75 [facility] 7 [place] [address] Care Team Providers Care Administrator Social Welfare Name Role Phone Amy Pickett MD Primary Care Pro vider Reason for Visit * Reason Onset Date Comments Appointment Request 09/02/2023 Encounter Details Date Type Department Care Team ([facility] st Contact Info) Description 09/02/2023 Telephone [facility] MEDICINE 230 [place], [place] [phone] Amy Pickett MD 230 [place] [address] Appointment Request Social History Tobacco Use Types [...] t he electric, gas, oil or water [employer] threatened to shut off services in your [...] from pt requesting a transfer patient appointment. [employer] does not see any availability. Pt states he needs appointment as soon as possible due to controlled medication. States needs to be seen bya new provider to continue medication. Please contact pt at [phone] documented in this encounter Plan of Treatment Upcoming Encounters Date Type Department Care Team (Late st Contact Info) Description 03/29/2025 9:45 AM EDT Office Visit [facility] MEDICINE [address] [place] [address] documented as of this encounter Visit Diagnoses Not on filedocumented in this encounter Additional Health Concerns Assessment Noted Time PHQ-9 Depression Total Score: 24 023 10:05 AM EDT documented as of this encounter Care Teams Administrator Social Welfare Relationship Specialty Start Date End Date Amy Pickett MD [address] [place] [address] PCP - General Internal Medicine 04/07/23 documented as of this encounter
--- OUTSIDE RECORDS SUMMARY | 2025-03-22 17:04 | XMS_ITS | Encounter Summary ---
Author Organization [employer] Address [address] [place] [address] 7 [place] [address] Care Team Providers Care Hearing Aid Consultant Name Role Phone Amy Pickett MD Primary Care Pro vider Reason for Visit * Reason Onset Date Comments Med Refill 05/13/2024 Encounter Details Date Type Department Care Team ([facility] st Contact Info) Description 05/13/2024 Telephone [facility] MEDICINE 230 [place], [place] [phone] Amy Pickett MD 230 [place], [place] [phone] Med Refill Social History Tobacco Use Types [...] sent to: [facility]/pharmacy #[id number] - [address] documented in this encounter Plan of Treatment Upcoming Encounters Date Type Department Care Team (Late st Contact Info) Description 03/29/2025 9:45 AM EDT Office Visit [facility] MEDICINE 230 [place], [place] [phone] documented as of this encounter Visit Diagnoses Not on filedocumented in this encounter Additional Health Concerns Assessment Noted Time PHQ-9 Depression Total Score: 10 024 9:41 AM EDT documented as of this encounter Care Teams Hearing Aid Consultant Relationship Specialty Start Date End Date Amy Pickett MD 230 [place], [place] [phone] PCP - General Internal Medicine 04/07/23 documented as of this encounter
--- OUTSIDE RECORDS SUMMARY | 2025-03-22 17:04 | XMS_ITS | Encounter Summary ---
Author Organization [employer] Address 75 [facility] 7 [place] [address] Care Team Providers Care Frame Stylist Name Role Phone Amy Pickett MD Primary Care Pro vider Reason for Visit * Reason Onset Date Comments FYI 03/16/2025 Encounter Details Date Type Department Care Team ([facility] st Contact Info) Description 03/16/2025 Telephone [facility] MED[facility]INE 230 [place], [place] [phone] Amy Pickett MD 230 [place] [address] FYI Social History Tobacco Use Types Packs/Day [...] who reports pt currently having surgery at [facility] through [facility] to get SNS device removed so that he can have MRI done as he couldn't have MRI with the implant and he has excruciating 10/10 shoulder pain and can't lift his arm. Advised to call [facility] centralized scheduling to r/s MRI now that implant is being removed. Texted her their phone number via [employer] text at her request. She reports that [...] group appt be changed to a normal REVIT DRAFTER appt. Seeing as though he is having [...] anything out of it. Would rather do REVIT DRAFTER visits. Informed I would send message regarding this. * Telephone Encounter - Jesusita Castellanos - 03/16/2025 3:01 PM EDT Tc from [facility] stating specialist pritesh to give him an emergency surgery to get the implant out. So now pt is able to do MRI. documented in this encounter Plan of Treatment Upcoming Encounters Date Type Department Care Team (Late st Contact Info) Description 03/29/2025 9:45 AM EDT Office Visit [facility] MEDICINE 230 [place] [address] documented as of this encounter Visit Diagnoses Not on filedocumented in this encounter Additional Health Concerns Assessment Noted Time PHQ-9 Depression Total Score: 0 11/25/19 25 2:10 PM EDT documented as of this encounter Care Teams Frame Stylist Relationship Specialty Start Date End Date Amy Pickett MD 230 [place] [address] PCP - General Internal Medicine 04/07/23 documented as of this encounter
--- OUTSIDE RECORDS SUMMARY | 2025-03-22 17:04 | XMS_ITS | Encounter Summary ---
Author Organization [employer] Address [address] [place] [address] 7 [place] [address] Care Team Providers Care Electrical Linesworker Name Role Phone Amy Pickett MD Primary Care Pro vider Reason for Visit * Reason Onset Date Comments Med Refill 10/27/2024 Encounter Details Date Type Department Care Team ([facility] st Contact Info) Description 10/27/[address] [facility] MEDICINE 230 [place], [place] [phone] Amy Pickett MD 230 [place], [place] [phone] Med Refill Social History Tobacco Use Types [...] immediate release tablet To be sent to: [facility]/pharmacy #[id number] documented in this encounter Plan of Treatment Upcoming Encounters Date Type Department Care Team (Late st Contact Info) Description 03/29/2025 9:45 AM EDT Office Visit [facility] MEDICINE 230 [place] [address] documented as of this encounter Visit Diagnoses Not on filedocumented in this encounter Additional Health Concerns Assessment Noted Time PHQ-9 Depression Total Score: 10 024 9:41 AM EDT documented as of this encounter Care Teams Electrical Linesworker Relationship Specialty Start Date End Date Amy Pickett MD 230 [place] [address] PCP - General Internal Medicine 04/07/23 documented as of this encounter
--- OUTSIDE RECORDS SUMMARY | 2025-03-22 17:04 | XMS_ITS | Encounter Summary ---
Author Organization [employer] Address 75 [facility] 7 [place] [address] Care Team Providers Care Ship Painter Helper Name Role Phone Amy Pickett MD Primary Care Pro vider Reason for Visit * Reason Onset Date Comments Med Refill 02/11/2024 Encounter Details Date Type Department Care Team (Late st Contact Info) Description 02/11/2024 Telephone [facility] MEDICINE 230 [place], [place] [phone] Amy Pickett MD 230 [place], [place] [phone] Med Refill Social History Tobacco Use Types [...] release tablet To be sent to: [facility]/pharmacy #[id number] - [address] documented in this encounter Plan of Treatment Upcoming Encounters Date Type Department Care Team (Late st Contact Info) Description 03/29/2025 9:45 AM EDT Office Visit [facility] MEDICINE 230 [place] [address] documented as of this encounter Visit Diagnoses Not on filedocumented in this encounter Additional Health Concerns Assessment Noted Time PHQ-9 Depression Total Score: 24 023 10:05 AM EDT documented as of this encounter Care Teams Ship Painter Helper Relationship Specialty Start Date End Date Amy Pickett MD 230 [place] [address] PCP - General Internal Medicine 04/07/23 documented as of this encounter
--- OUTSIDE RECORDS SUMMARY | 2025-03-22 17:04 | XMS_ITS | Encounter Summary ---
Author Organization [employer] Address [address] [place] [address] 7t [place] [address] Care Team Providers Care Night Monitor Name Role Phone Elise Glover REMOTE SENSING ENGINEER Primary Care Provider Amy Ware MD Primary Care Pro vider Reason for Visit * Reason Onset Date Comments Durable Medical Equipment 10/07/2022 Encounter Details Date Type Department Care Team (Late st Contact Info) Description 10/07/2022 Telephone [facility] MEDICINE [address] [place] [address] Elise Glover, REMOTE SENSING ENGINEER Durable Medical Equipment Social History Tobacco Use [...] If any questions please contact Anabelle at [phone] documented in this encounter Plan of Treatment Upcoming Encounters Date Type Department Care Team (Late st Contact Info) Description 03/29/2025 9:45 AM EDT Office Visit [facility] MEDICINE [address] [place] [address] documented as of this encounter Visit Diagnoses Not on filedocumented in this encounter Additional Health Concerns Assessment Noted Time PHQ-9 Depression Total Score: 24 10/01/ 023 10:05 AM EDT documented as of this encounter Care Teams Night Monitor Relationship Specialty Start Date End Date Elise Glover FNP PCP - General Family Medicine 07/09/22 04/06/23 Amy Pickett MD 230 [place] [address] PCP - General Internal Medicine 04/07/23 documented as of this encounter
--- OUTSIDE RECORDS SUMMARY | 2025-03-22 17:04 | XMS_ITS | Encounter Summary ---
Author Organization [employer] Address 75 [facility] 7t [place] [address] Care Team Providers Care Comparative Sociology Professor Name Role Phone Amy Pickett MD Primary Care Pro vider Encounter Details Date Type Department Care Team ([facility] st Contact Info) Description 03/18/2025 Orders Only [facility] MEDICINE 230 [place], [place] [phone] Amy Pickett MD 230 [place] [address] Social History Tobacco Use Types Packs/Day Years [...] as of this encounter Progress Notes * Amy Berry MD - 03/18/2025 3:38 PM EDT I sent prescription of tizanidine yesterday to his pharmacy , pt went to ED yesterday and received cyclobenzaprine prescription I called his pharmacy today and confirmed pt picked up cyclobenzaprine prescribed at ED I cancel Tizanidine prescription today with pharmacy documented in this encounter Plan of Treatment Upcoming Encounters Date Type Department Care Team (Late st Contact Info) Description 03/29/2025 9:45 AM EDT Office Visit [facility] MEDICINE [address] [place] [address] documented as of this encounter Visit Diagnoses Not on filedocumented in this encounter Additional Health Concerns Assessment Noted Time PHQ-9 Depression Total Score: 0 11/25/19 25 2:10 PM EDT documented as of this encounter Care Teams Comparative Sociology Professor Relationship Specialty Start Date End Date Amy Pickett MD 230 [place] [address] PCP - General Internal Medicine 04/07/23 documented as of this encounter
--- OUTSIDE RECORDS SUMMARY | 2025-03-22 17:04 | XMS_ITS | Encounter Summary ---
Author Organization [employer] Address 75 [facility] 7t [place] [address] Care Team Providers Care Press Operator [employer] Name Role Phone Amy Pickett MD Primary Care Pro vider Encounter Details Date Type Department Care Team ([facility] st Contact Info) Description 09/01/2024 Telephone [facility] MEDICINE 230 [place], [place] [phone] Amy Pickett MD 230 [place], [place] [phone] Social History Tobacco Use Types Packs/Day Years [...] AM EDT Office Visit [facility] MEDICINE [address] [place] [address] documented as of this encounter Visit Diagnoses Not on filedocumented in this encounter Additional Health Concerns Assessment Noted Time PHQ-9 Depression Total Score: 10 024 9:41 AM EDT documented as of this encounter Care Teams Press Operator [employer] Relationship Specialty Start Date End Date Amy Pickett MD [address] [place] [address] PCP - General Internal Medicine 04/07/23 documented as of this encounter
--- OUTSIDE RECORDS SUMMARY | 2025-03-22 17:04 | XMS_ITS | Encounter Summary ---
Author Organization [employer] Address [address] [place] [address] 7t [place] [address] Care Team Providers Care Quality Assurance Advisor Name Role Phone Eilse Glover QUALITY COMPLIANCE COORDINATOR Primary Care Provider Amy Ware MD Primary Care Pro vider Encounter Details Date Type Department Care Team (Late st Contact Info) Description 01/14/2023 Orders Only [facility] MEDICINE [address] [place] [address] [phone] Elise Glover FNP Social History Tobacco Use [...] Description 03/29/2025 9:45 AM EDT Office Visit [facility]ICINE [address] [place] [phone] documented as of this encounter Visit Diagnoses Not on filedocumented in this encounter Additional Health Concerns Assessment Noted Time PHQ-9 Depression Total Score: 24 03/28/2 023 10:05 AM EDT documented as of this encounter Care Teams Quality Assurance Advisor Relationship Specialty Start Date End Date Elise Glover FNP PCP - General Family Medicine 07/09/22 04/06/23 Amy Pickett MD [address] [place] [address] PCP - General Internal Medicine 04/07/23 documented as of this encounter
--- OUTSIDE RECORDS SUMMARY | 2025-03-22 17:04 | XMS_ITS | Encounter Summary ---
Author Organization [employer] Address 75 [facility] 7 [place] [address] Care Team Providers Care Lift Electrician Name Role Phone Amy Pickett MD Primary Care Pro vider Reason for Visit * Reason Onset Date Comments Change PCP 03/18/2025 Encounter Details Date Type Department Care Team ([facility] st Contact Info) Description 03/18/2025 Telephone [facility] MEDICINE 230 [place], [place] [phone] Amy Pickett MD 230 [place] [address] Change PCP Social History Tobacco Use Types Packs/Day Years [...] Telephone Encounter - Michelle Kapoor RN - 03/22/2025 3:51 PM EDT Transfer Request was previously discussed and approved on 02/25/25, please see telephone encounter dated 02/10/25. Encounter was sent to Rosangela Berry. Will resend to Rosangela Berry, Greens Picker. * Telephone Encounter - Jesusita Castellanos - 03/18/2025 1:34 PM EDT Tc from pt requesting change PCP, pt dissatisfied with the doctor's care Contact pt at [phone] or SHOESHINER at [phone] documented in this encounter Plan of Treatment Upcoming Encounters Date Type Department Care Team ([facility] st Contact Info) Description 03/29/2025 9:45 AM EDT Office Visit [facility] MEDICINE 230 [place] [address] documented as of this encounter Visit Diagnoses Not on filedocumented in this encounter Additional Health Concerns Assessment Noted Time PHQ-9 Depression Total Score: 0 11/25/19 25 2:10 PM EDT documented as of this encounter Care Teams Lift Electrician Relationship Specialty Start Date End Date Amy Pickett MD 230 [place] [address] PCP - General Internal Medicine 04/07/23 documented as of this encounter
--- OUTSIDE RECORDS SUMMARY | 2025-03-22 17:04 | XMS_ITS | Clinical Summary ---
Author Organization [facility] Address [address] [place] [address] Care Team Providers Care Mattress Finisher Name Role Phone Donna Harmon MD Primary [...] Sigmoidoscopy 12/23/2016 Influenza Vaccine (#1) 2025 Insurance [facility] [place] [id number] Care Teams Mattress Finisher Relationship Specialty Start Date End Date Donna Harmon MD PCP - General 05/11/19
--- OUTSIDE RECORDS SUMMARY | 2025-03-22 17:04 | XMS_ITS | Encounter Summary ---
Author Organization [employer] Address 75 [facility] 7t [place] [address] Care Team Providers Care Registered Radiation Therapist Name Role Phone Amy Pickett MD Primary Care Pro vider Encounter Details Date Type Department Care Team ([facility] st Contact Info) Description 10/01/2024 Orders Only [facility] CH[facility] MED & PEDS [address] [place], [place] [phone] Za Preston MD 505 [place] [address] Social History Tobacco Use Types Packs/Day Years [...] 03/29/2025 9:45 AM EDT Office Visit [facility] MEDICINE [address] [place] [phone] documented as of this encounter Visit Diagnoses Not on filedocumented in this encounter Additional Health Concerns Assessment Noted Time PHQ-9 Depression Total Score: 10 024 9:41 AM EDT documented as of this encounter Care Teams Registered Radiation Therapist Relationship Specialty Start Date End Date Amy Pickett MD [address] [place] [address] PCP - General Internal Medicine 04/07/23 documented as of this encounter
--- OUTSIDE RECORDS SUMMARY | 2025-03-22 17:04 | XMS_ITS | Encounter Summary ---
Author Organization [employer] Address 75 [facility] 7 [place] [address] Care Team Providers Care Night Supervisor Name Role Phone Amy Pickett MD Primary Care Pro vider Reason for Visit * Reason Onset Date Comments Results 10/01/2024 Encounter Details Date Type Department Care Team ([facility] st Contact Info) Description 10/01/2024 Telephone [facility] MEDICINE [address] [place], [place] [phone] Amy Pickett MD 230 [place] [address] Results Social History Tobacco Use Types Packs/Day [...] Blood Test Date when done: 09/29/24 Facility: [facility] [place] pt at [phone] documented in this encounter Plan of Treatment Upcoming Encounters Date Type Department Care Team (Late st Contact Info) Description 03/29/2025 9:45 AM EDT Office Visit [facility] [address] [place] [address] documented as of this encounter Visit Diagnoses Not on filedocumented in this encounter Additional Health Concerns Assessment Noted Time PHQ-9 Depression Total Score: 10 024 9:41 AM EDT documented as of this encounter Care Teams Night Supervisor Relationship Specialty Start Date End Date Amy Pickett MD [address] [place], [place] [phone] PCP - General Internal Medicine 04/07/23 documented as of this encounter
--- OUTSIDE RECORDS SUMMARY | 2025-03-22 17:04 | XMS_ITS | Encounter Summary ---
Author Organization [employer] Address [address] [place] [address] 7 [place] [address] Care Team Providers Care Photoengraving Etcher Name Role Phone Amy Pickett MD Primary Care Pro vider Reason for Visit * Reason Onset Date Comments Med Refill 04/09/2024 Encounter Details Date Type Department Care Team (Late st Contact Info) Description 04/09/2024 Telephone [facility] MEDICINE [address] [place], [place] [phone] Amy Pickett MD [address] [place], [place] [phone] Med Refill Social History Tobacco Use Types [...] be sent to: [facility]/pharmacy #[id number] - [address] documented in this encounter Plan of Treatment Upcoming Encounters Date Type Department Care Team (Late st Contact Info) Description 03/29/2025 9:45 AM EDT Office Visit [facility] MEDICINE 230 [place] [address] documented as of this encounter Visit Diagnoses Not on filedocumented in this encounter Additional Health Concerns Assessment Noted Time PHQ-9 Depression Total Score: 10 024 9:41 AM EDT documented as of this encounter Care Teams Photoengraving Etcher Relationship Specialty Start Date End Date Amy Pickett MD [address] [place] [address] PCP - General Internal Medicine 04/07/23 documented as of this encounter
--- OUTSIDE RECORDS SUMMARY | 2025-03-22 17:04 | XMS_ITS | Encounter Summary ---
Author Organization [employer] Address 75 [facility] 7t [place] [address] Care Team Providers Care Patient Case Coordinator Name Role Phone Amy Pickett MD Primary Care Pro vider Encounter Details Date Type Department Care Team ([facility] st Contact Info) Description 09/01/[address] [facility] MEDICINE 230 [place], [place] [phone] Amy Pickett MD 230 [place], [place] [phone] Social History Tobacco Use Types Packs/Day Years [...] 03/29/2025 9:45 AM EDT Office Visit [facility] MED[facility]INE [address] [place] [address] documented as of this encounter Visit Diagnoses Not on filedocumented in this encounter Additional Health Concerns Assessment Noted Time PHQ-9 Depression Total Score: 10 024 9:41 AM EDT documented as of this encounter Care Teams Patient Case Coordinator Relationship Specialty Start Date End Date Amy Pickett MD [address] [place] [address] PCP - General Internal Medicine 04/07/23 documented as of this encounter
--- OUTSIDE RECORDS SUMMARY | 2025-03-22 17:04 | XMS_ITS | Encounter Summary ---
Author Organization [employer] Address [address] [place] [address] 7 [place] [address] Care Team Providers Care Wood Coater Name Role Phone Elise Glover HEAT TREATER HEAD Primary Care Provider Amy Ware MD Primary Care Pro vider Reason for Visit * Reason Onset Date Comments triage 08/22/2022 Encounter Details Date Type Department Care Team (Late st Contact Info) Description 08/22/2022 Telephone [facility] MEDICINE [address] [place] [address] [phone] Elise Glover FNP triage Social History Tobacco [...] Office Visit [facility] MEDICINE [address] [place] [address] [phone] documented as of this encounter Visit Diagnoses Not on filedocumented in this encounter Care Teams Wood Coater Relationship Specialty Start Date End Date Elise Glover FNP PCP - General Family Medicine 07/09/22 04/06/23 Amy Pickett MD [address] [place] [address] PCP - General Internal Medicine 04/07/23 documented as of this encounter
--- OUTSIDE RECORDS SUMMARY | 2025-03-22 17:04 | XMS_ITS | Encounter Summary ---
Author Organization [employer] Address [address] [place] [address] 7 [place] [address] Care Team Providers Care Radial Arm Saw Operator Name Role Phone Amy Pickett MD Primary Care Pro vider Reason for Visit * Reason Onset Date Comments call back requesting 03/03/2025 Encounter Details Date Type Department Care Team ([facility] st Contact Info) Description 03/03/[address] [facility] MEDICINE 230 [place], [place] [phone] Amy Pickett MD 230 [place] [address] call back requesting Social History Tobacco Use [...] the pt and spoke with the pt PASTORAL MINISTRIES PROFESSOR Domenica (HIPAA compliant) in regards to the [...] device. Domenica called the pt urologist at [facility] for guidance as the pt [...] out of he's body. Contact pt at [phone] documented in this encounter Plan of Treatment Upcoming Encounters Date Type Department Care Team (Late st Contact Info) Description 03/29/2025 9:45 AM EDT Office Visit [facility] MEDICINE [address] [place] [phone] documented as of this encounter Visit Diagnoses Not on filedocumented in this encounter Additional Health Concerns Assessment Noted Time PHQ-9 Depression Total Score: 0 11/25/19 25 2:10 PM EDT documented as of this encounter Care Teams Radial Arm Saw Operator Relationship Specialty Start Date End Date Amy Pickett MD [address] [place] [address] PCP - General Internal Medicine 04/07/23 documented as of this encounter
--- OUTSIDE RECORDS SUMMARY | 2025-03-22 17:04 | XMS_ITS | Encounter Summary ---
Author Organization [employer] Address 75 [facility] 7t [place] [address] Care Team Providers Care Media Liaison Officer Name Role Phone Amy Pickett MD Primary Care Pro vider Encounter Details Date Type Department Care Team ([facility] st Contact Info) Description 03/18/2025 Telephone [facility] CHC MED & PEDS 505 [place], [place] [phone] 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, RN 505 [place] [address] Social History Tobacco Use Types Packs/Day Years [...] Telephone Encounter - 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 RN - 03/18/2025 9:53 AM EDT Per PCP Pt on high opioid dose will not prescribe more , I sent muscle relaxants Tizanidine 2 mg Q12 h PRN for 15 days ,please inform pt Thanks TC to pt, spoke with pt's MILK VENDOR, verbalized understanding. documented in this encounter Plan of Treatment Upcoming Encounters Date Type Department Care Team (Late st Contact Info) Description 03/29/2025 9:45 AM EDT Office Visit [facility] MEDICINE 230 [place] [address] documented as of this encounter Visit Diagnoses Not on filedocumented in this encounter Additional Health Concerns Assessment Noted Time PHQ-9 Depression Total Score: 0 11/25/19 25 2:10 PM EDT documented as of this encounter Care Teams Media Liaison Officer Relationship Specialty Start Date End Date Amy Pickett MD 230 [place] [address] PCP - General Internal Medicine 04/07/23 documented as of this encounter
--- OUTSIDE RECORDS SUMMARY | 2025-03-22 17:04 | XMS_ITS | Encounter Summary ---
Author Organization [employer] Address 75 [facility] 7 [place] [address] Care Team Providers Care Director Of Flight Operations Name Role Phone Amy Pickett MD Primary Care Pro vider Reason for Visit * Reason Onset Date Comments Nurse Triage 03/17/2025 Encounter Details Date Type Department Care Team ([facility] st Contact Info) Description 03/17/2025 Telephone [facility] MEDICINE [address] [place], [place] [phone] Amy Pickett MD 230 [place] [address] Nurse Triage Social History Tobacco Use Types [...] to Zain Lazcano to triage below at [phone]. Pt states having a procedure done to [...] Is currently on the phone with a broadcast field supervisor [facility]. She states that pt. 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 Pt. Luz Marina states that PCP will not give pt. Additional pain medication because pt. Is alreadyon Oxycodone. I advised that I will write this down as pt. Is currently speaking with a Environmental Engineering Intern. * Telephone Encounter - James Diana - 03/17/2025 4:02 PM EDT Symptom: Shoulder Pain - Not From Injury Outcome: Schedule an urgent appointment (within 1 hour) or talk to a nurse or provider soon Reason: Severe pain now The caller accepted this outcome. Contact pt at [phone] Pt was requesting for tramadol for his shoulder pain. Pt was already advised that he cannot take tramadol and Oxycodone at the same time. documented in this encounter Plan of Treatment Upcoming Encounters Date Type Department Care Team (Late st Contact Info) Description 03/29/2025 9:45 AM EDT Office Visit [facility] MEDICINE [address] [place] [address] documented as of this encounter Visit Diagnoses Not on filedocumented in this encounter Additional Health Concerns Assessment Noted Time PHQ-9 Depression Total Score: 0 11/25/19 25 2:10 PM EDT documented as of this encounter Care Teams Director Of Flight Operations Relationship Specialty Start Date End Date Amy Pickett MD [address] [place] [address] PCP - General Internal Medicine 04/07/23 documented as of this encounter
--- OUTSIDE RECORDS SUMMARY | 2025-03-22 17:04 | XMS_ITS | Encounter Summary ---
Author Organization [employer] Address [address] [place] [address] 7 [place] [address] Care Team Providers Care Cruise Agent Name Role Phone Amy Pickett MD Primary Care Pro vider Reason for Visit * Reason Onset Date Comments Med Refill 2024 Encounter Details Date Type Department Care Team ([facility] st Contact Info) Description 2024 Telephone [facility] MEDICINE 230 [place], [place] [phone] Amy Pickett MD 230 [place], [place] [phone] Med Refill Social History Tobacco Use Types [...] is your housing situation today? I have lcaudio medrano 05/14/[address] you [...] tablet To be sent to: [facility]/pharmacy #[id number] documented in this encounter Plan of Treatment Upcoming Encounters Date Type Department Care Team (Late st Contact Info) Description 03/29/2025 9:45 AM EDT Office Visit [facility] MEDICINE 230 [place], [place] [phone] documented as of this encounter Visit Diagnoses Not on filedocumented in this encounter Additional Health Concerns Assessment Noted Time PHQ-9 Depression Total Score: 0 11/25/19 25 2:10 PM EDT documented as of this encounter Care Teams Cruise Agent Relationship Specialty Start Date End Date Amy Pickett MD 230 [place], [place] [phone] PCP - General Internal Medicine 04/07/23 documented as of this encounter
--- OUTSIDE RECORDS SUMMARY | 2025-03-22 17:04 | XMS_ITS | Encounter Summary ---
Author Organization [email or web address] Address 75 [facility] 7t [place] [address] Care Team Providers Care Dining Room Tables Set Up Attendant Name Role Phone Amy Pickett MD Primary Care Pro vider Encounter Details Date Type Department Care Team (Late st Contact Info) Description 03/22/2025 Orders Only [facility] External Provider, [facility] Social History Tobacco Use Types Packs/Day Years [...] Office Visit [facility] MEDICINE [address] [place] [address] documented as of this encounter Procedures Procedure Name Priority Date/Time Associated Diagnosis Comments XR PELVIS 1-2 VIEWS Routine 03/22/2025 1 :32 PM EDT documented in this encounter Results * XR Pelvis 1-2 Views (03/22/2025 1:32 PM EDT) Anatomical Region Laterality Modality Body, Pelvis Radiographic Maxine ging 03/22/2025 1:32 PM EDT Narrative 03/22/2025 1:45 PM EDT [address] [address] XRay Report Signed Patient: Zain Welch MR# : [id number] : [id number] Acct:[id number] Age/Sex: 59 / M ADM Date: 03/22/25 Loc: [facility] Attending Dr: Salvador Elliott MD Ordering Physician: Salvador Elliott MD Date of Service: 03/22/25 Procedure(s): XR pelvis 1-2V Accession Number(s): [id number] cc: Salvador Elliott MD; Amy Pickett MD Reason for Exam: BLADDER STIMULATOR REMOVED EXAMINATION: XR PELVIS CLINICAL INFORMATION: BLADDER STIMULATOR REMOVED COMPARISON: October 03, 2021 CT abdomen and pelvis TECHNIQUE: AP view of the pelvis. FINDINGS: Serpentine sclerotic bands are present across most of the subchondral bone in the left femoral head and tracking across the central and lateral margin of the left femoral head. There is no subchondral lucency or subchondral fracture. Joint spaces preserved. The right hip joint space is maintained. There is bony prominence along the lateral right femoral head neck junction. Right-sided bladder stimulator generator and wire with lead is no longer present. There is mild narrowing of the right SI joint and sclerosis inferiorly. 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 Morphology of the right femoral head neck junction increases risk for cam-type femoral acetabular impingement. Interval bladder stimulator removal. No retained metal. Mild to moderate degenerative changes are evident in the right SI joint. Electronically signed by: Amado Limon MD 03/22/2025 01:43 PM EDT Dictated By: Amado Limon MD Signed By: <Electronically signed by Amado Limon MD in OV> 03/22/25 1343 DD/ 1332 TD/TT: 03/22/25 1335 Economics Professor: Procedure Note Donotuseinterpreter, Image - 03/22/[address] [address] XRay Report Signed Patient: Zain Welch LMR# : [id number] : [id number]:[id number] Age/Sex: 59 / MADM Date: 03/22/25 Loc: [facility] Attending Dr: Salvador Elliott MD Ordering Physician: Salvador Elliott MD Date of Service: 03/22/25 Procedure(s): XR pelvis 1-2V Accession Number(s): [id number] cc: Salvador Elliott MD; Amy Pickett MD Reason for Exam: BLADDER STIMULATOR REMOVED EXAMINATION: XR PELVIS CLINICAL INFORMATION: BLADDER STIMULATOR REMOVED COMPARISON: October 03, 2021 CT abdomen and pelvis TECHNIQUE: AP view of the pelvis. FINDINGS: Serpentine sclerotic bands are present across most of the subchondral bone in the left femoral head and tracking across the central and lateral margin of the left femoral head. There is no subchondral lucency or subchondral fracture. Joint spaces preserved. The right hip joint space is maintained. There is bony prominence along the lateral right femoral head neck junction. Right-sided bladder stimulator generator and wire with lead is no longer present. There is mild narrowing of the right SI joint and sclerosis inferiorly. 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 Morphology of the right femoral head neck junction increases risk for cam-type femoral acetabular impingement. Interval bladder stimulator removal. No retained metal. Mild to moderate degenerative changes are evident in the right SI joint. Electronically signed by: Amado Limon MD 03/22/2025 01:43 PM EDT Dictated By: Amado Limon MD Signed By: <Electronically signed by Amado Limon MD in OV> 03/22/25 1343 DD/ 1332 TD/TT: 03/22/25 1335 Economics Professor: [facility] External Provider IMG XR PROCEDURES Edited Result - Final documented in this encounter Visit Diagnoses Not on filedocumented in this encounter Additional Health Concerns Assessment Noted Time PHQ-9 Depression Total Score: 0 11/25/19 25 2:10 PM EDT documented as of this encounter Care Teams Dining Room Tables Set Up Attendant Relationship Specialty Start Date End Date Amy Pickett MD [address] [place] [address] PCP - General Internal Medicine 04/07/23 documented as of this encounter
--- OUTSIDE RECORDS SUMMARY | 2025-03-22 17:04 | XMS_ITS | Encounter Summary ---
Author Organization [employer] Address [address] [facility] [address] 7t [place] [address] Care Team Providers Care Team Assembly Line Machine Operator Name Role Phone Amy Pickett MD Primary Care Pro vider Encounter Details Date Type Department Care Team (Late st Contact Info) Description 06/24/2024 Orders Only [facility] MEDICINE [address] [place] [address] Provider, MD Bryan Social History Tobacco Use [...] 9:45 AM EDT Office Visit [facility] MEDICINE 230 [place] [address] documented as of this encounter Procedures Procedure [...] documented as of this encounter Care Teams Team Assembly Line Machine Operator Relationship Specialty Start Date End Date Amy Pickett MD 230 [place] [address] PCP - General Internal Medicine 04/07/23 documented as of this encounter
--- OUTSIDE RECORDS SUMMARY | 2025-03-22 17:04 | XMS_ITS | Clinical Summary ---
Author Organization [employer] Address [address] [place] [address] 7t [place] [address] Care Team Providers Care Clinical Laboratory Manager Name Role Phone Amy Pickett MD [...] 022 Active Nebulizers (Comp-Air Elite Compact Neb) [facility] Active Blood Pressure Monitor kit 1 each [...] vomiting. 60 tablet 1 023 Active pancrelipase, Svv-Hcpk-Ubxm, (Creon) 5779-6009 units capsule Take 1 capsule by mouth [...] oxyCODONE (Roxicodone) 15 MG immediate release tabletIndicatio ns:RECRUITMENT AND OUTREACH ASSISTANT checked 06/13/22 Take 1 tablet (15 mg) [...] available. 2 each 2 025 2025 Active tiZANidine (Zanaflex) 2 MG tablet Take 1 tablet (2 mg) by mouth every 12 (twelve) hours if needed for muscle spasms for up to 15 days. 30 tablet 025 2024 Active atorvastatin (Lipitor) 80 MG tablet Take 1 tablet (80 mg) by mouth in the morning. 90 tablet 025 2024 Discontinued gabapentin (Neurontin) 600 MG tabletIndicatio ns:Chronic low back pain, unspecified back pain laterality, unspecified whether sciatica present TAKE 1 TABLET BY MOUTH EVERYDAY AT BEDTIME 30 tablet 2 025 2024 Discontinued oxyCODONE (Roxicodone) 15 MG immediate release tabletIndicatio ns:RECRUITMENT AND OUTREACH ASSISTANT checked 06/13/22 Take 1 tablet (15 mg) by mouth every 6 (six) hours for 28 days. Do not start before January 23, 2025. 112 tablet 025 2024 Discontinued(R eorder (will not trigger notification to Pharmacy)) cyclobenzaprine (Flexeril) 5 MG tabletIndicatio ns:Cervical spondylosis without myelopathy Take 1 tablet (5 mg) by mouth if needed at bedtime for muscle spasms. 30 tablet 025 2024 naloxone (Narcan) 4 mg/0.1 [...] -Supportive care advised. -Isolation recommendations discussed. 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 Confirmatory testing sent. Chronic obstructive pulmonar y disease, unspecified COPD type 05/16/2024 Overview (09/05/2024): [place] [facility] [place]. Malodnado Continue with Combivent inhaler Claudication of left [...] Injections 11/2022 Encouraged stretching [facility] Continue PHOTOGRAPHER SCIENTIFIC at this time. Will perform random Utox [...] root compression . Seen by Neurosurgery at [facility], note pending Referred to Pain Management November 2024 Assessment & Plan (01/25/2025 1:44 PM EDT): -Good engagement and participation with Group Medical Visit model -Encouraged multifactorial approach to pain control including pharm and non- pharm modalities -Pill count as expected, Utox pos cocaine. Confirmatory testing sent. See documentation clerk. Assessment & Plan (09/28/2024 2:02 PM EDT): [...] C7 fracture seen on CT scan at [facility] 10/28/23 [...] C7 fracture seen on CT scan at [facility] 10/28/23 [...] Injections 11/2022 Encouraged stretching Will refer to [facility] physical therapy Continue PHOTOGRAPHER SCIENTIFIC at this time. Will perform random Utox [...] lumbar pain. Encouraged stretching Will refer to [facility] Continue PHOTOGRAPHER SCIENTIFIC at this time. Will perform random Utox [...] organization. Date Type Department Care Team Description 03/22/2025 Orders Only [facility] External Provider, [facility] 03/18/2025 Orders Only [facility] [address] [place] [address] Amy Pickett MD 03/18/2025 Telephone [facility] [address] [place] [address] Amy Pickett MD Change PCP 03/18/2025 Telephone [facility] [address] [place] [address] 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 RN 03/17/2025 Orders Only [facility] [address] [place] [address] 329[address] Amy Pickett MD 03/17/2025 Telephone [facility] [address] [place] [address] [phone] Amy Pickett MD Nurse Triage 03/17/2025 Telephone [facility] [address] [place] [address] 59704 Amy Pickett MD Medication Question 03/16/2025 Telephone [facility] [address] [place] [address] 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, RN 03/16/2025 Telephone [facility] [address] [place] [address] 28884 Amy Pickett MD FYI 03/08/2025 Orders Only [facility] [address] [place] [address] Amy Pickett MD 03/08/2025 Telephone [facility] [address] [place] [address] 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 RN 03/05/2025 Refill [facility] [address] [place] [address] Amy Pickett MD Chronic low back pain, unspecified back pain laterality, unspecified whether sciatica present 03/03/2025 Telephone [facility] [address] [place] [address] 27801 Amy Pickett MD Durable Medical Equipment 03/03/2025 Telephone [facility] [address] [place] [address] 685[address] Amy Pickett MD call back requesting 03/01/2025 9:10 AM EDT Clinical Support [address] [address] 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, RN senior living 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 03/01/2025 Orders Only [facility] [address] [place] [address] 078[address] Amy Pickett MD 03/01/2025 Telephone [facility] [address] [place] [address] 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 RN 03/01/2025 Travel 02/24/2025 Refill [facility] [address] [place] [address] 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, settlement worker pain of both knees; Chronic low back pain, unspecified back pain laterality, unspecified whether sciatica present 02/24/2025 Telephone [facility] [address] [place] [address] Amy Pickett MD med 02/24/2025 Telephone [facility] [address] [place] [address] 20455 Amy Pickett MD Med Refill 02/19/2025 Refill [facility] [address] [place] [address] 610[address] Amy Pickett MD 02/10/2025 9:30 AM EDT Office Visit [address] [phone] Amy Pickett MD Cervical spondylosis without myelopathy (Primary Dx); Chronic migraine without aura without status migrainosus, not intractable; Essential hypertension; H/O lipoma; Mass of wrist, right; Claudication of left lower extremity (CMS/HCC); Health care maintenance; Lipoma, unspecified site; terminal operations manager 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; Chronic right shoulder pain; Spondylosis of cervical spine 02/10/2025 Telephone [facility] [address] [place] [address] 268[address] Amy Pickett MD Change PCP; TRANSFER REQUEST 02/10/2025 Travel 02/08/2025 Refill [facility] [address] [place] [address] Amy Pickett MD 02/03/2025 Refill [facility] [address] [place] [address] 195[address] Bri Noriega MD 02/01/[address] [address] Amy Pickett MD Durable Medical Equipment 01/27/2025 Orders Only [facility] External Provider, [facility] 01/25/2025 9:45 AM EDT Office Visit [address] [address] Holly Wills, KENDRA Spondylosis of cervical spine (Primary Dx); terminal operations manager 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 01/25/2025 Telephone [facility] [address] [place] [address] 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 RN 01/25/2025 Travel 01/21/2025 Refill [facility] [address] [place] [address] 64[address] Amy Pickett MD Chronic pain of both knees; Chronic low back pain, unspecified back pain laterality, unspecified whether sciatica present 01/11/2025 Refill [facility] [address] [place] [phone] Brent Hanson MD 01/10/2025 Telephone [facility] [address] [place] [address] Amy Pickett MD TP request 12/29/[address] [address] Amy Pickett MD fyi 12/28/2024 9:00 AM EDT Clinical Support [address] [address] Danay Flaherty, DARIANA terminal operations manager 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 (Primary Dx) 12/28/2024 Travel 2024 Refill [facility] [address] [place] [address] 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, settlement worker pain of both knees; Chronic low back pain, unspecified back pain laterality, unspecified whether sciatica present 2024 Refill [facility] [address] [place] [address] 116[address] Amy Pickett MD Moderate persistent asthma without complication [address] [address] Amy Pickett MD Med Refill from Last 3 Months Immunizations Immunization Administration [...] Description 03/29/2025 9:45 AM EDT Office Visit [address] [phone] Health Maintenance Due Date Last Done Comments [...] VIEWS Routine 03/22/2025 1 :32 PM EDT POCT ROBIN-14 URINE DRUG SCREEN Routine 03/01/2025 10:10 AM EDT terminal operations manager 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 DRUG MONITOR, COCAINE METAB, QN, URINE Routine 03/01/2025 9:32 AM EDT XR WRIST 3+ VIEWS RIGHT Routine 01/27/2025 11:18 AM EDT XR ELBOW 1-2 VIEWS RIGHT Routine 01/27/2025 11:13 AM EDT XR SHOULDER 2+ VIEWS RIGHT Routine 01/27/2025 11:06 AM EDT POCT ROBIN-14 URINE DRUG SCREEN Routine 01/25/2025 10:15 AM EDT Spondylosis of cervical spine terminal operations manager 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 DRUG MONITOR, COCAINE METAB, QN, URINE Routine 01/25/2025 9:30 AM EDT Spondylosis of cervical spine senior living 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 POCT ROBIN-14 URINE DRUG SCREEN Routine 12/28/2024 10:32 AM EDT terminal operations manager 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 HEPATITIS C [...] Relevant to Health Maintenance Results * XR Pelvis 1-2 Views (03/22/2025 1:32 PM EDT) Anatomical Region Laterality Modality Body, Pelvis Radiographic Maxine ging 03/22/2025 1:32 PM EDT Narrative 03/22/2025 1:45 PM EDT [address] [address] XRay Report Signed Patient: Zain [place] MR# : [id number] : 1965 Acct:[id number] Age/Sex: 59 / M ADM Date: 03/22/25 Loc: HO.COLE Attending Dr: Salvador Elliott MD Ordering Physician: Salvador Elliott MD Date of Service: 03/22/25 Procedure(s): XR pelvis 1-2V Accession Number(s): [id number] cc: Salvador Elliott MD; Amy Pickett MD [...] 03/22/25 1343 DD/ 1332 TD/TT: 03/22/25 1335 Roof Tiler: Procedure Note Donotuseinterpreter, Image - 03/22/[address] [address] XRay Report Signed Patient: Zain [place] LMR# : [id number] : 1965Acct:[id number] Age/Sex: 59 / MADM Date: 03/22/25 Loc: HO.XRAY Attending Dr: Salvador Elliott MD Ordering Physician: Salvador Elliott MD Date of Service: 03/22/25 Procedure(s): XR pelvis 1-2V Accession Number(s): [id number] cc: Salvador Elliott MD; Amy Pickett MD [...] 03/22/25 1343 DD/ 1332 TD/TT: 03/22/25 1335 Roof Tiler: [facility] External Provider IMG XR PROCEDURES Edited Result - Final * (ABNORMAL) POCT ROBIN-14 Urine Drug Screen [...] - 03/01/2025 10:10 AM EDT .UTOX cup Lot#[id number] Exp. 04/12/26 Internal Pass Control us Amy Berry MD POINT OF CARE SOHA T ENTER/EDIT ORDERABLES Final Result * Drug Monitoring, Cocaine Metabolite, Quantitative, Urine (03/01/2025 9:32 AM EDT) Only the most recent of2 resultswithin the time period is included. [facility] Signature Benzoylecgonine [address] [facility] Comment:CUTOFF 100NG/MLPERFO RMING SITE:[address] [place] [address] Leather Belt Shaper: MICHELLE GAUTAM MD, CLIA:[id number] Cocaine Comments SEE NOTE [facility] Comment:This drug testing is for medical treatment only. Analysiswas performed as non-forensic testing and these resultsshould be used only by healthcare providers torender diagnosis or treatment, or to monitor progress ofmedical conditions.Cocaine Notes:Benzoylecgonine detected is consistent with the use of thedrug Cocaine.LDT Notes:Confirmation tests were developed and their analyticalperformance characteristics have been determined by [employer]. It has not been cleared orapproved by the FDA. This assay has been validated pursuantto the CLIA regulations and is used for clinical purposes.Healthcare Providers needing Interpretation assistance,please contact us at [phone] ( ) M-F,8am to 10pm EST 03/01/2025 9:32 AM EDT 03/01/2025 1:39 PM EDT us Amy Berry MD LAB URINE ORDERAB LES Final Result [facility] [address] [place] [phone] * XR Wrist 3+ Views Right (01/27/2025 11:18 AM EDT) Anatomical Region Laterality Modality Upper Extremities, Wrist Right Radiogr aphic Imaging 01/27/2025 11:1 8 AM EDT Narrative 01/27/2025 12:26 PM EDT [address] [address] XRay Report Signed Patient: Zain [place] MR# : [id number] : 1965 Acct:[id number] Age/Sex: 59 / M ADM Date: 01/27/25 Loc: HO.ED Attending Dr: Ordering Physician: Ailyn Carbone Date of Service: 01/27/25 Procedure(s): XR wrist RT min 3V Accession Number(s): [id number] cc: Ailyn Carbone; Amy Pickett MD EXAMINATION: [...] 01/27/25 1223 DD/ 1118 TD/TT: 01/27/25 1217 Roof Tiler: Procedure Note Donotuseinterpreter, Image - 01/27/[address] [address] XRay Report Signed Patient: Zain [place] LMR# : [id number] : 1965Acct:[id number] Age/Sex: 59 / MADM Date: 01/27/25 Loc: HO.ED Attending Dr: Ordering Physician: Ailyn Carbone Date of Service: 01/27/25 Procedure(s): XR wrist RT min 3V Accession Number(s): [id number] cc: Ailyn Carbone; Amy Pickett MD EXAMINATION: [...] 01/27/25 1223 DD/ 1118 TD/TT: 01/27/25 1217 Roof Tiler: [facility] External Provider IMG XR PROCEDURES Edited Result - Final * XR Elbow 1-2 Views Right (01/27/2025 11:13 AM EDT) Anatomical Region Laterality Modality Upper Extremities, Elbow Right Radiogr aphic Imaging 01/27/2025 11:1 3 AM EDT Narrative 01/27/2025 12:25 PM EDT [address] [address] XRay Report Signed Patient: Zain [place] MR# : [id number] : 1965 Acct:[id number] Age/Sex: 59 / M ADM Date: 01/27/25 Loc: HO.ED Attending Dr: Ordering Physician: Aiyln Carbone Date of Service: 01/27/25 Procedure(s): XR elbow RT 2V Accession Number(s): [id number] cc: Ailyn Carbone; Amy Pickett MD EXAMINATION: [...] 01/27/25 1223 DD/ 1113 TD/TT: 01/27/25 1217 Roof Tiler: Procedure Note Donotuseinterpreter, Image - 01/27/2025 [place] [address] XRay Report Signed Patient: Zain [place] LMR# : [id number] : 1965Acct:[id number] Age/Sex: 59 / MADM Date: 01/27/25 Loc: HO.ED Attending Dr: Ordering Physician: Ailyn Carbone Date of Service: 01/27/25 Procedure(s): XR elbow RT 2V Accession Number(s): [id number] cc: Ailyn Carbone; Amy Pickett MD EXAMINATION: [...] 01/27/25 1223 DD/ 1113 TD/TT: 01/27/25 1217 Roof Tiler: [facility] External Provider IMG XR PROCEDURES Edited Result - Final * XR Shoulder 2+ Views Right (01/27/2025 11:06 AM EDT) Anatomical Region Laterality Modality Upper Extremities, Shoulder Right Radi ographic Imaging 01/27/2025 11:0 6 AM EDT Narrative 01/27/2025 12:25 PM EDT [place] [address] XRay Report Signed Patient: Zain [place] MR# : [id number] : 1965 Acct:[id number] Age/Sex: 59 / M ADM Date: 01/27/25 Loc: HO.ED Attending Dr: Ordering Physician: Ailyn Carbone Date of Service: 01/27/25 Procedure(s): XR shoulder RT min 2V Accession Number(s): [id number] cc: Ailyn Carbone; Amy Pickett MD EXAMINATION: [...] cervical spine no fully included in the imlpv-mj-fwoa. Calcified plaque in the thoracic aortic arch. XR/XR shoulder RT min 2V IMPRESSION: Mild degenerative changes without acute fracture or dislocation. Electronically signed by: Tyler Cortez MD 01/27/2025 12:22 PM EDT RP Dictated By: Tyler Serrato MD Signed By: <Electronically signed by Tyler Reid MD in OV> 01/27/25 1222 DD/ 1106 TD/TT: 01/27/25 1217 Roof Tiler: Procedure Note Donotuseinterpreter, Image - 01/27/[address] [address] XRay Report Signed Patient: Zain [place] LMR# : [id number] : 1965Acct:[id number] Age/Sex: 59 / MADM Date: 01/27/25 Loc: HO.ED Attending Dr: Ordering Physician: Ailyn Carbone Date of Service: 01/27/25 Procedure(s): XR shoulder RT min 2V Accession Number(s): [id number] cc: Ailyn Carbone; Amy Pickett MD EXAMINATION: [...] cervical spine no fully included in the jcfpg-hb-bolu. Calcified plaque in the thoracic aortic arch. XR/XR shoulder RT min 2V IMPRESSION: Mild degenerative changes without acute fracture or dislocation. Electronically signed by: Tyler Cortez MD 01/27/2025 12:22 PM EDT RP Dictated By: Tyler Serrato MD Signed By: <Electronically signed by Tyler Reid MDin OV> 01/27/25 1222 DD/ 1106 TD/TT: 01/27/25 1217 Roof Tiler: [facility] External Provider IMG XR PROCEDURES Edited Result - Final * (ABNORMAL) Hepatitis C Antibody with Reflex to HCV, RNA, Quantitative, Real- Time PCR (09/29/2024 3:37 PM EDT) Hepatitis C Antibody Reactive( A) Nonreactive [facility] Comment:Presumptive evidence of antibodies to HCV. Blood Venous blood specimen / Unknown 09/29/2024 3:37 PM EDT 09/29/2024 3:38 PM EDT Brent Fischer MD LAB BLOOD ORDERABL ES Final Result Performing Organization Address [facility]/ZIP Co de Phone Number [facility] [address] [place] [phone] * HIV-1/2 Antigen and Antibodies, Fourth Generation, with Reflexes (09/29/2024 3:37 PM EDT) HIV AB/AG Nonreactive Nonreactive [facility] Comment:HIV-1 p24 Ag and/or HIV-1/HIV-2 Ab not detected.A test result that is nonreactive does not exclude thepossibility of exposure to or infection with HIV-1 and/orHIV-2. Nonreactive results in this assay for individualswith prior exposure to HIV-1 and/or HIV-2 may be due toantigen and antibody levels that are below the limit ofdetection of this assay.The [employer] HIV Ag/Ab Combo assay result andsupplemental assay results should be interpreted inconjunction with the patient's clinical presentation,history and other laboratory results. If the results areinconsistent with clinical evidence, additional testing issuggested to confirm the result. Blood Venous blood specimen / Unknown 09/29/2024 3:37 PM EDT 09/29/2024 3:38 PM EDT Brent Fischer MD LAB BLOOD ORDERABL ES Final Result Performing Organization Address [facility]/ZIP Co de Phone Number [facility] [address] [place] [phone] * (ABNORMAL) Lipid Panel, Standard (09/29/2024 3:37 PM EDT) Triglycerides 155(H) <150 mg/dL [facility] Comment:Desirable Triglyceri de: less than 150 mg/dLBorderline High Triglyceride 150-199 mg/dLHigh Triglyceride: 200-499 mg/dLVery High Triglyceride: greater than or equal to 5OO mg/dL Cholesterol 211(H) <200 mg/dL [facility] Comment:Desirable Cholestero l: less than 200 mg/dLBorderline High Cholesterol: 200-239 mg/dLHigh Cholesterol: greater than 239 mg/dL LDL Cholesterol Calculated 131(H) <100 mg/dL [facility] Comment:Desirable LDL: less than 100 mg/dLNear Optimal/Above Optimal LDL: 110- 129 mg/dLBorderline High LDL: 130-159 mg/dLHigh LDL: 160-189 mg/dLVery High LDL: greater than or equal to 190 mg/dL HDL Cholesterol 49 >40 mg/dL [facility] Comment:Desirable HDL: great er than 40 mg/dL Note: This HDL assay may give artificially low results in patients with liver disease. Blood Venous blood specimen / Unknown 09/29/2024 3:37 PM EDT 09/29/2024 3:38 PM EDT us Amy Berry MD LAB BLOOD ORDERAB LES Final Result [facility] [address] [place] [phone] [phone] * Colonoscopy (01/06/2018 8:00 AM EDT) us Historical Provider HEALTH MAINTENANCE Final Result from Last 3 Months or Most Recently Relevant to Health Maintenance Insurance [employer] < 65 [place] [id number] [place], [place] Care Teams Clinical Laboratory Manager Relationship Specialty Start Date End Date Amy Pickett MD [address] [place] [phone] PCP - General Internal Medicine 04/07/23
--- OUTSIDE RECORDS SUMMARY | 2025-03-22 17:04 | XMS_ITS | Encounter Summary ---
Author Organization [employer] Address [address] [facility] 7 [place] [address] Care Team Providers Care Riprap Placer Name Role Phone Amy Pickett MD Primary Care Pro vider Reason for Visit * Reason Comments Med Refill Encounter Details Date Type Department Care Team ([facility] st Contact Info) Description 06/17/2024 Refill [facility] [address] [place], [place] [phone] Amy Pickett MD [address] [place] [address] Social History Tobacco Use Types Packs/Day Years [...] Description 03/29/2025 9:45 AM EDT Office Visit [facility] [address] [place] [address] documented as of this encounter Visit Diagnoses Not on filedocumented in this encounter Additional Health Concerns Assessment Noted Time PHQ-9 Depression Total Score: 10 024 9:41 AM EDT documented as of this encounter Care Teams Riprap Placer Relationship Specialty Start Date End Date Amy Pickett MD [address] [place] [address] PCP - General Internal Medicine 04/07/23 documented as of this encounter
--- OUTSIDE RECORDS SUMMARY | 2025-03-22 17:04 | XMS_ITS | Encounter Summary ---
Author Organization [employer] Address [address] [facility] 7 [place] [address] Care Team Providers Care Director Marketing Analytics Name Role Phone Amy Pickett MD Primary Care Pro vider Reason for Visit * Reason Onset Date Comments Medication Question 03/17/2025 Encounter Details Date Type Department Care Team ([facility] st Contact Info) Description 03/17/2025 Telephone [facility] [address] [place], [place] [phone] Amy Pickett MD [address] [place] [address] Medication Question Social History Tobacco Use Types [...] pain killer. Any questions contact pt at [phone] * Telephone Encounter - Andrew Maldonado - 03/17/2025 11:19 AM EDT Tc from Domenica, pt's PART MAKER, stating pt had a surgery done but due to pt being prescribed Oxycodone they were unable to prescribe pt any pain medication. Domenica is hoping pt can be prescribed some sort of muscle relaxer or an accomodation to be prescribed medication. If any questions please contact Domenica at [phone]. documented in this encounter Plan of Treatment Upcoming Encounters Date Type Department Care Team ([facility] st Contact Info) Description 03/29/2025 9:45 AM EDT Office Visit [facility] [address] [place] [phone] documented as of this encounter Visit Diagnoses Not on filedocumented in this encounter Additional Health Concerns Assessment Noted Time PHQ-9 Depression Total Score: 0 11/25/19 25 2:10 PM EDT documented as of this encounter Care Teams Director Marketing Analytics Relationship Specialty Start Date End Date Amy Pickett MD [address] [place] [address] PCP - General Internal Medicine 04/07/23 documented as of this encounter
--- OUTSIDE RECORDS SUMMARY | 2025-03-22 17:04 | XMS_ITS | Encounter Summary ---
Author Organization [employer] Address [address] [facility] 7 [place] [address] Care Team Providers Care Customer Order Clerk Name Role Phone Amy Pickett MD Primary Care Pro vider Reason for Visit * Reason Onset Date Comments Med Refill 02/24/2025 Encounter Details Date Type Department Care Team ([facility] st Contact Info) Description 02/24/2025 Telephone [facility] MEDICINE [address] [place], [place] [phone] Amy Pickett MD [address] [place], [place] [phone] Med Refill Social History Tobacco Use Types [...] immediate release tablet To be sent to: [facility]/pharmacy #[id number] - [address] documented in this encounter Plan of Treatment Upcoming Encounters Date Type Department Care Team (Late st Contact Info) Description 03/29/2025 9:45 AM EDT Office Visit [facility] MEDICINE [address] [place] [address] documented as of this encounter Visit Diagnoses Not on filedocumented in this encounter Additional Health Concerns Assessment Noted Time PHQ-9 Depression Total Score: 0 11/25/19 25 2:10 PM EDT documented as of this encounter Care Teams Customer Order Clerk Relationship Specialty Start Date End Date Amy Pickett MD [address] [place] [address] PCP - General Internal Medicine 04/07/23 documented as of this encounter
--- OUTSIDE RECORDS SUMMARY | 2025-03-22 17:04 | XMS_ITS | Encounter Summary ---
Author Organization [employer] Address [address] [place] [address] 7 [place] [address] Care Team Providers Care Clinical Genetics Laboratory Chief Name Role Phone Amy Pickett MD Primary Care Pro vider Reason for Visit * Reason Onset Date Comments Appointment Request 10/05/2024 Encounter Details Date Type Department Care Team ([facility] st Contact Info) Description 10/05/2024 Telephone [facility] MEDICINE [address] [place], [place] [phone] Amy Pickett MD 230 [place] [address] Appointment Request Social History Tobacco Use Types [...] able to make it. Contact Isa at [phone] documented in this encounter Plan of Treatment Upcoming Encounters Date Type Department Care Team (Late st Contact Info) Description 03/29/2025 9:45 AM EDT Office Visit [facility] MEDICINE [address] [place] [address] documented as of this encounter Visit Diagnoses Not on filedocumented in this encounter Additional Health Concerns Assessment Noted Time PHQ-9 Depression Total Score: 10 024 9:41 AM EDT documented as of this encounter Care Teams Clinical Genetics Laboratory Chief Relationship Specialty Start Date End Date Amy Pickett MD [address] [place] [address] PCP - General Internal Medicine 04/07/23 documented as of this encounter
--- OUTSIDE RECORDS SUMMARY | 2025-03-22 17:04 | XMS_ITS | Encounter Summary ---
Author Organization [employer] Address [address] [facility] 7t [place] [address] Care Team Providers Care Die Lay Out Worker Name Role Phone Elise Glover OYSTER SORTER Primary Care Provider Amy Ware MD Primary Care Pro vider Reason for Visit * Reason Comments Med Change Request Encounter Details Date Type Department Care Team (Late st Contact Info) Description 03/03/2023 Refill [facility] [address] [place] [address] Elise Glover FNP Essential hypertension Social History [...] 03/29/2025 9:45 AM EDT Office Visit [facility] MEDICINE [address] [place] [address] documented as of this encounter Visit Diagnoses Diagnosis Essential hypertension Unspecified essential hypertension documented in this encounter Additional Health Concerns Assessment Noted Time PHQ-9 Depression Total Score: 24 10/01/ 023 10:05 AM EDT documented as of this encounter Care Teams Die Lay Out Worker Relationship Specialty Start Date End Date Elise Glover FNP PCP - General Family Medicine 07/09/22 04/06/23 Amy Pickett MD [address] [place] [address] PCP - General Internal Medicine 04/07/23 documented as of this encounter
--- OUTSIDE RECORDS SUMMARY | 2025-03-22 17:04 | XMS_ITS | Clinical Summary ---
Author Organization [employer] it Address [address] [place] [address] Care Team Providers Care Cnc Cutting Operator Name Role Phone Ba Maria MD Primary Care Provider Surgical History Surgery Date Site/Laterality Comments FOOT SURGERY PROCEDURE: [place] UNLISTED PROCEDURE FOOT/TOES; COMMENT: left foot bunion removal LIPOMA RESECTION PROCEDURE: SKIN TISSUE EXCISION(LIPOMA) OTHER SURGICAL HISTORY PROCEDURE: ---- OTHER ----; COMMENT: urethral surgeries done? three times in [facility] for difficulty urinating Medical History Medical History Date Comments Chronic back pain DX:Chronic alonso k pain Asthma DX:Asthma Anxiety DX:Anxiety; COMM ENT: follows at [facility] psychiatry Family History Medical History Relation [...] (2 - Td or Tdap) 10/27/2022 10/27/2012 Depression Screening 07/07/2024 COVID-19 Vaccine (1 - season) 2025 Influenza Vaccine (#1) 2025 0, 08/10/2019, 03/23/2019, [...] age to complete this topic Care Teams Cnc Cutting Operator Relationship Specialty Start Date End Date Ba Maria MD PCP - General Internal Medicine 10/26/12
--- OUTSIDE RECORDS SUMMARY | 2025-03-22 17:05 | XMS_ITS | Encounter Summary ---
Author Organization [employer] Address [address] [place] [address] 7 [place] [address] Care Team Providers Care Solar Mechanical Engineer Name Role Phone Amy Pickett MD Primary Care Pro vider Reason for Visit * Reason Onset Date Comments Med Refill 08/06/2024 Encounter Details Date Type Department Care Team ([facility] st Contact Info) Description 08/06/2024 Telephone [facility] MEDICINE 230 [place], [place] [phone] Amy Pickett MD 230 [place], [place] [phone] Med Refill Social History Tobacco Use Types [...] 0.083% nebulizer solution To be sent to: [facility]/pharmacy #[id number] - [address] documented in this encounter Plan of Treatment Upcoming Encounters Date Type Department Care Team (Late st Contact Info) Description 03/29/2025 9:45 AM EDT Office Visit [address] [phone] documented as of this encounter Visit Diagnoses Not on filedocumented in this encounter Additional Health Concerns Assessment Noted Time PHQ-9 Depression Total Score: 10 024 9:41 AM EDT documented as of this encounter Care Teams Solar Mechanical Engineer Relationship Specialty Start Date End Date Amy Pickett MD [address] [place] [id number] PCP - General Internal Medicine 04/07/23 documented as of this encounter
== END 2025-03-22 13:08 | disposition home or self-care (01) ==
LOC: HO.XRAY 13:07
PROVIDERS: PCP Student in an Organized Health Care Education/Training Program; Visit Provider Radiology Diagnostic Radiology
DX: Z98.890 Other specified postprocedural states (principal)
CPT/HCPCS: 72170

== ENCOUNTER → 2025-03-22 13:32 | Outpatient (BNV) | payer OTHER, SELFPAY | PROVIDERS: PCP Student in an Organized Health Care Education/Training Program; Visit Provider Radiology Diagnostic Radiology | DX: M87.052 Idiopathic aseptic necrosis of left femur (principal) | CPT/HCPCS: 72170 ==

== ENCOUNTER 2025-03-23 10:58 | Outpatient (AMB) | payer OTHER, SELFPAY ==
--- NOTE | 2025-03-23 11:02 | MHC.OFFVIS ---
Vital Signs 03/23/25 11:11 Height 5 ft 4 in Weight 178 lb BMI 30.6 BP 113/70 Blood Pressure Location Rt brachial Position Sitting Pulse 114 H Intake Visit Reasons: Lipoma (R) Forearm Intake Note: Patient referred by pcp Dr. Sergey Berry for evaluation of lipoma on right forearm. Noticed after fall feels hard. Patient c/o: itch at night on lipomas abdomen, buttock, axilla. Reports hx of many lipoma excisions. Wireless Field Technician Required: No Accompanied by: fishing vessel mate Domenica Allergies cat dander (CATS) Allergy (Unknown, Verified 03/23/25 11:07) UNKNOWN dog dander (DOGS) Allergy (Unknown, Verified 03/23/25 11:07) UNKNOWN pollen extracts (POLLEN) Allergy (Unknown, Verified 03/23/25 11:07) UNKNOWN tree and shrub pollen Allergy (Verified 03/23/25 11:07) sneeze ibuprofen Adverse Reaction (Verified 03/23/25 11:07) causes stomach to bleed Medication List - Last Reconciled 03/23/25 by Derrick Barlow MD albuterol sulfate 1 vial inhalation QID alprazolam 1 mg PO BID PRN atorvastatin 40 mg PO DAILY budesonide 0.5 mg (2 mL) inhalation BID 30 days cholecalciferol (vitamin D3) 50 mcg PO DAILY clopidogrel 75 mg PO DAILY clotrimazole 1% appl topical DAILY cyanocobalamin (vitamin B-12) 1,000 mcg PO DAILY cyclobenzaprine 5 mg PO BEDTIME PRN cyclobenzaprine 10 mg PO TID PRN cyclobenzaprine 5 mg PO Q8H PRN dexlansoprazole 60 mg PO DAILY dicyclomine 20 mg PO QID 30 days divalproex 1,000 mg PO BID doxycycline hyclate 100 mg PO BID 10 days escitalopram oxalate 20 mg PO QAM famotidine 40 mg PO BEDTIME fluoxetine 20 mg PO DAILY fluticasone propionate 220 mcg/actuation (Flovent HFA) 1 puff inhalation BID elozpowjefh-rpmcwsfje-lihmkwct 200-62.5-25 mcg (Trelegy Ellipta) 1 inh inhalation DAILY 30 days hydroxyzine HCl 10 mg PO BID ipratropium-albuterol 0.5 mg-3 mg(2.5 mg base)/3 mL 3 mL inhalation BID 30 days ipratropium-albuterol 20-100 mcg/actuation (Combivent Respimat) 1 puff inhalation QID 30 days tktrgy-bovugydj-jgamltp 24,000-76,000 -120,000 unit (Creon) 1 cap PO QID 30 days lisinopril 10 mg PO BID loratadine 10 mg PO DAILY magnesium oxide 400 mg PO DAILY multivitamin (Daily-Petra tablet) 1 tab PO DAILY nebulizers As directed nicotine 1 patch transdermal DAILY 28 days olmesartan 20 mg PO DAILY ondansetron HCl 4 mg PO BID PRN oxycodone 15 mg PO Q6H prednisone 40 mg (2 x 20 mg) PO DAILY prednisone 40 mg (2 x 20 mg) PO DAILY prednisone PO daily; Take 6 tabs daily x 3 days, then 5 tabs x 3 days, then 4 tabs x 3 days, then 3 tabs x 3 days, then 2 tabs daily x 3 days, then 1 tab x 3 days to complete. 18 days prednisone PO daily; Take 2 tabs daily x 5 days, then 1 tablet daily x 5 days 10 days rimegepant (Nurtec ODT) 75 mg PO DAILY PRN sumatriptan succinate (Imitrex) 100 mg orally; tamsulosin 0.4 mg PO DAILY 30 days HPI HPI Lipoma (R) Forearm: Details: 59-year-old male referred because of a hard lump on the wrist. He says he has had this for several months and this has been increasing in size. He describes shooting pain in the area. Denies any skin drainage. [facility] Medical History (Updated 03/23/25 @ 11:20 by Derrick Barlow MD) Ganglion cyst Chest pain Nicotine dependence, cigarettes, uncomplicated Nausea and vomiting Dyspnea Photophobia Headache Syncope Dysphagia Seizure Lipoma of back STEPHON (obstructive sleep apnea) COPD (chronic obstructive pulmonary disease) Post herpetic neuralgia Multiple lipomas Osteoarthritis Gout History of peptic ulcer disease Hx of irritable bowel syndrome Chronic back pain Hx of insomnia History of panic attacks History of anxiety History of depression Asthma High cholesterol Hypertension Urinary retention Enlarged prostate Arthritis Slow urinary stream Marijuana use Alcohol abuse H/O ulcer disease Left flank pain Trochanteric bursitis, left hip Epidermal cyst Abdominal wall bulge Esophageal dysphagia Esophageal spasm Short frenulum of penis Balanitis Elevated blood pressure reading in office with diagnosis of hypertension Thalamic pain syndrome Abnormal loss of weight Painful orthopaedic hardware Pain in unspecified toe(s) Incisional pain Surgical History S/P placement of nerve stimulator H/O neck surgery Hx of arthroscopy of left knee H/O breast surgery S/P excision of lipoma History of bunionectomy History of cystoscopy History of colonoscopy History of esophagogastroduodenoscopy (EGD) Family History Family/Other Cancer Diabetes AIDS Brother Diabetes Myocardial infarction Father Enlarged prostate Mother Diabetes Asthma Social History Are you a primary cardiac care nurse to a significant other at home: No Do you presently have visiting nurse or other home services: No Alcohol intake: never Patient Tobacco Use Status: Current everyday Tobacco user Cigarettes Per Day: 4 Years Smoked: (onset 16yo, 1ppd x 42yrs, now 1/2ppd - 40pyh) Substance Use Type: Marijuana service: No Current occupational status: unemployed Review of Systems Const Denies chills and Denies fever(s) Card Denies chest pain, Reports dyspnea and Reports dyspnea on exertion Resp Denies cough, Reports dyspnea and Reports dyspnea on exertion GI Denies hematochezia and Denies change in bowel habits Denies hematuria and Denies difficulty urinating Musc Reports abnormal gait, Reports back pain, Reports arthralgias and Reports limited range of motion Neuro Reports abnormal gait, Denies focal weakness and Denies convulsions Psych Denies depression and Denies mood swings Physical Exam Vital Signs: Last Vital Signs Pulse 114 H 03/23/25 11:11 BP 113/70 03/23/25 11:11 BMI result Body Mass Index 30.6 Const Other: He appears short of breath mildly as baseline, walks with a cane General: comfortable and no acute distress Orientation/consciousness: patient oriented x3 Neck Neck: Yes no lymphadenopathy Resp Auscultation: clear to auscultation bilaterally Cardio Rhythm: regular rhythm GI Palpation (GI): Soft to palpation, nontender and no guarding Neuro General: patient oriented x3 Extrem Other: right wrist on the radial aspect is not of a ganglion cyst, about 2 cm in size Office Procedures FNAB Details: He was placed supine. The area of the ganglion cyst was prepped and draped. Lidocaine 1% was used for local anesthesia. I used a gauge 18 needle to aspirate the contents of the ganglion cyst. This was clear gelatinous fluid. This has were applied. He tolerated procedure well. Anesthesia: local Needle size: 18 G Aspiration content: other ( Clear gelatinous fluid) Assessment & Plan Assessment & Plan (1) Ganglion cyst: Code(s): M67.40 - Ganglion, unspecified site Category: Medical Plan: He says this has has been bothering him. I explained the option of proceeding with aspiration for now with a needle. I can also refer him to Dr. Carrillo of hand surgery for formal excision He says he wants to proceed with the aspiration for now. Needle aspiration was done with a gauge 18 and thick cleargelatinous fluid was aspirated. He tolerated procedure well. Dressings were applied He can come back to the office on a p.r.n. basis. He understands the risk of recurrence. Coding Level of Care Code New Pt Level 3 (87642) Diagnoses Ganglion cyst M67.40
[2025-03-23 11:11] VITALS: BP 113/70; PULSE 114; BMI 30.6
--- OUTSIDE RECORDS SUMMARY | 2025-03-23 14:06 | XMS_ITS | Encounter Summary ---
Author Organization [employer] Address [address] [place] [address] 7 [place] [address] Care Team Providers Care Facilities Coordinator Name Role Phone Amy Pickett MD Primary Care Pro vider Reason for Visit * Reason Onset Date Comments Med Refill 04/09/2024 Encounter Details Date Type Department Care Team (Late st Contact Info) Description 04/09/2024 Telephone [facility] MEDICINE [address] [place], [place] [phone] Amy Pickett MD 230 [place], [place] [phone] Med Refill Social History Tobacco Use Types [...] to: [facility]/pharmacy #[id number] - [address] documented in this encounter Plan of Treatment Upcoming Encounters Date Type Department Care Team (Late st Contact Info) Description 03/29/2025 9:45 AM EDT Office Visit [facility] MEDICINE [address] [place] [address] documented as of this encounter Visit Diagnoses Not on filedocumented in this encounter Additional Health Concerns Assessment Noted Time PHQ-9 Depression Total Score: 10 024 9:41 AM EDT documented as of this encounter Care Teams Facilities Coordinator Relationship Specialty Start Date End Date Amy Pickett MD [address] [place] [address] PCP - General Internal Medicine 04/07/23 documented as of this encounter
--- OUTSIDE RECORDS SUMMARY | 2025-03-23 14:06 | XMS_ITS | Clinical Summary ---
Author Organization [employer] it Address [address] [place] [address] Care Team Providers Care Manufacturing Process Technician Name Role Phone Ba Maria MD Primary Care Provider Surgical History Surgery Date Site/Laterality Comments FOOT SURGERY PROCEDURE: [place] UNLISTED PROCEDURE FOOT/TOES; COMMENT: left foot bunion removal LIPOMA RESECTION PROCEDURE: SKIN TISSUE EXCISION(LIPOMA) OTHER SURGICAL HISTORY PROCEDURE: ---- OTHER ----; COMMENT: urethral surgeries done? three times in [facility] for difficulty urinating Medical History Medical History Date Comments Chronic back pain DX:Chronic alonso k pain Asthma DX:Asthma Anxiety DX:Anxiety; COMM ENT: follows at [facility] psychiatry Family History Medical History [...] age to complete this topic Care Teams Manufacturing Process Technician Relationship Specialty Start Date End Date Ba Maria MD PCP - General Internal Medicine 10/26/12
--- OUTSIDE RECORDS SUMMARY | 2025-03-23 14:06 | XMS_ITS | Encounter Summary ---
Author Organization [employer] Address [address] [place] [address] 7 [place] [address] Care Team Providers Care Tool And Cutter Grinder Name Role Phone Amy Pickett MD Primary Care Pro vider Reason for Visit * Reason Onset Date Comments call back requesting 03/03/2025 Encounter Details Date Type Department Care Team ([facility] st Contact Info) Description 03/03/2025 Telephone [facility] MEDICINE [address] [place], [place] [phone] Amy Pickett MD [address] [place] [address] call back requesting Social History Tobacco Use [...] the pt and spoke with the pt CIGARETTE CATCHER Domenica (HIPAA compliant) in regards to the [...] device. Domenica called the pt urologist at [facility] for guidance as the pt [...] out of he's body. Contact pt at [phone] documented in this encounter Plan of Treatment Upcoming Encounters Date Type Department Care Team (Late st Contact Info) Description 03/29/2025 9:45 AM EDT Office Visit [facility] MEDICINE [address] [place] [address] documented as of this encounter Visit Diagnoses Not on filedocumented in this encounter Additional Health Concerns Assessment Noted Time PHQ-9 Depression Total Score: 0 11/25/19 25 2:10 PM EDT documented as of this encounter Care Teams Tool And Cutter Grinder Relationship Specialty Start Date End Date Amy Pickett MD [address] [place] [address] PCP - General Internal Medicine 04/07/23 documented as of this encounter
--- OUTSIDE RECORDS SUMMARY | 2025-03-23 14:06 | XMS_ITS | Encounter Summary ---
Author Organization [employer] Address [address] [facility] 7 [place] [address] Care Team Providers Care Japanese Interpreter Name Role Phone Amy Pickett MD Primary Care Pro vider Reason for Visit * Reason Onset Date Comments Nurse Triage 03/17/2025 Encounter Details Date Type Department Care Team ([facility] st Contact Info) Description 03/17/2025 Telephone [facility] MEDICINE [address] [place], [place] [phone] Amy Pickett MD 230 [place] [address] Nurse Triage Social History Tobacco Use Types [...] to Zain Lazcano to triage below at [phone]. Pt states having a procedure done to [...] Is currently on the phone with a account group supervisor [facility]. She states that pt. 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 Pt. Luz Marina states that PCP will not give pt. Additional pain medication because pt. Is alreadyon Oxycodone. I advised that I will write this down as pt. Is currently speaking with a Office Bookkeeper. * Telephone Encounter - James Diana - 03/17/2025 4:02 PM EDT Symptom: Shoulder Pain - Not From Injury Outcome: Schedule an urgent appointment (within 1 hour) or talk to a nurse or provider soon Reason: Severe pain now The caller accepted this outcome. Contact pt at [phone] Pt was requesting for tramadol for his shoulder pain. Pt was already advised that he cannot take tramadol and Oxycodone at the same time. documented in this encounter Plan of Treatment Upcoming Encounters Date Type Department Care Team (Late st Contact Info) Description 03/29/2025 9:45 AM EDT Office Visit [facility] MEDICINE [address] [place] [address] documented as of this encounter Visit Diagnoses Not on filedocumented in this encounter Additional Health Concerns Assessment Noted Time PHQ-9 Depression Total Score: 0 11/25/19 25 2:10 PM EDT documented as of this encounter Care Teams Japanese Interpreter Relationship Specialty Start Date End Date Amy Pickett MD [address] [place] [address] PCP - General Internal Medicine 04/07/23 documented as of this encounter
--- OUTSIDE RECORDS SUMMARY | 2025-03-23 14:06 | XMS_ITS | Encounter Summary ---
Author Organization [employer] Address [address] [facility] 7t [place] [address] Care Team Providers Care Caser Shoe Parts Name Role Phone Amy Pickett MD Primary Care Pro vider Encounter Details Date Type Department Care Team ([facility] st Contact Info) Description 09/01/2024 Telephone [facility] MEDICINE [address] [place], [place] [phone] Amy Pickett MD [address] [place], [place] [phone] Social History Tobacco Use Types Packs/Day Years [...] Description 03/29/2025 9:45 AM EDT Office Visit [facility] MEDICINE [address] [place] [address] documented as of this encounter Visit Diagnoses Not on filedocumented in this encounter Additional Health Concerns Assessment Noted Time PHQ-9 Depression Total Score: 10 024 9:41 AM EDT documented as of this encounter Care Teams [employer] Relationship Specialty Start Date End Date Amy Pickett MD [address] [place] [address] PCP - General Internal Medicine 04/07/23 documented as of this encounter
--- OUTSIDE RECORDS SUMMARY | 2025-03-23 14:06 | XMS_ITS | Encounter Summary ---
Author Organization [employer] Address [address] [place] [address] 7 [place] [address] Care Team Providers Care Forms Designer Name Role Phone Amy Pickett MD Primary Care Pro vider Reason for Visit * Reason Onset Date Comments Med Refill 10/27/2024 Encounter Details Date Type Department Care Team ([facility] st Contact Info) Description 10/27/2024 Telephone [facility] MEDICINE 230 [place], [place] [phone] Amy Pickett MD [address] [place], [place] [phone] Med Refill Social History Tobacco Use Types [...] immediate release tablet To be sent to: [facility]/pharmacy #[address] documented in this encounter Plan of Treatment Upcoming Encounters Date Type Department Care Team (Late st Contact Info) Description 03/29/2025 9:45 AM EDT Office Visit [facility] MEDICINE [address] [place] [address] documented as of this encounter Visit Diagnoses Not on filedocumented in this encounter Additional Health Concerns Assessment Noted Time PHQ-9 Depression Total Score: 10 024 9:41 AM EDT documented as of this encounter Care Teams Forms Designer Relationship Specialty Start Date End Date Amy Pickett MD [address] [place] [address] PCP - General Internal Medicine 04/07/23 documented as of this encounter
--- OUTSIDE RECORDS SUMMARY | 2025-03-23 14:06 | XMS_ITS | Encounter Summary ---
Author Organization [employer] Address 75 [facility] 7 [place] [address] Care Team Providers Care Weigher And Crusher Name Role Phone Amy Pickett MD Primary Care Pro vider Reason for Visit * Reason Onset Date Comments FYI 03/16/2025 Encounter Details Date Type Department Care Team ([facility] st Contact Info) Description 03/16/2025 Telephone [facility] 230 [place], [place] [phone] Amy Pickett MD 230 [place] [address] FYI Social History Tobacco Use Types Packs/Day [...] who reports pt currently having surgery at [facility] through [facility] to get SNS device removed so that he can have MRI done as he couldn't have MRI with the implant and he has excruciating 10/10 shoulder pain and can't lift his arm. Advised to call centralized scheduling to r/s MRI now that implant is being removed. Texted her their phone number via [employer] text at her request. She reports that [...] group appt be changed to a normal [facility] appt. Seeing as though he is having [...] anything out of it. Would rather do [facility] visits. Informed I would send message regarding this. * Telephone Encounter - Jesusita Castellanos - 03/16/2025 3:01 PM EDT Tc from [facility] stating specialist pritesh to give him an emergency surgery to get the implant out. So now pt is able to do MRI. documented in this encounter Plan of Treatment Upcoming Encounters Date Type Department Care Team (Late st Contact Info) Description 03/29/2025 9:45 AM EDT Office Visit [facility] 230 [place] [address] documented as of this encounter Visit Diagnoses Not on filedocumented in this encounter Additional Health Concerns Assessment Noted Time PHQ-9 Depression Total Score: 0 11/25/19 25 2:10 PM EDT documented as of this encounter Care Teams Weigher And Crusher Relationship Specialty Start Date End Date Amy Pickett MD 230 [place] [address] PCP - General Internal Medicine 04/07/23 documented as of this encounter
--- OUTSIDE RECORDS SUMMARY | 2025-03-23 14:06 | XMS_ITS | Clinical Summary ---
Author Organization [facility] Facility Address [address] [place] [address] Care Team Providers Care Race Steward Name Role Phone Donna Harmon MD Primary [...] Influenza Vaccine (#1) 2025 Insurance [facility] RUBEN JAIMES [id number] Care Teams Race Steward Relationship Specialty Start Date End Date Donna Harmon MD PCP - General 05/11/19
--- OUTSIDE RECORDS SUMMARY | 2025-03-23 14:06 | XMS_ITS | Encounter Summary ---
Author Organization [employer] Address 75 [facility] 7 [place] [address] Care Team Providers Care Net Wpf Developer Name Role Phone Amy Pickett MD Primary Care Pro vider Reason for Visit * Reason Onset Date Comments Medication Question 03/17/2025 Encounter Details Date Type Department Care Team ([facility] st Contact Info) Description 03/17/2025 Telephone [facility] 230 [place], [place] [phone] Amy Pickett MD 230 [place] [address] Medication Question Social History Tobacco Use Types [...] pain killer. 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 [facility] is hoping pt can be prescribed some sort of muscle relaxer or an accomodation to be prescribed medication. If any questions please contact Domenica at [phone]. documented in this encounter Plan of Treatment Upcoming Encounters Date Type Department Care Team ([facility] st Contact Info) Description 03/29/2025 9:45 AM EDT Office Visit [facility] [address] [place] [phone] documented as of this encounter Visit Diagnoses Not on filedocumented in this encounter Additional Health Concerns Assessment Noted Time PHQ-9 Depression Total Score: 0 11/25/19 25 2:10 PM EDT documented as of this encounter Care Teams Net Wpf Developer Relationship Specialty Start Date End Date Amy Pickett MD 230 [place] [address] PCP - General Internal Medicine 04/07/23 documented as of this encounter
--- OUTSIDE RECORDS SUMMARY | 2025-03-23 14:06 | XMS_ITS | Encounter Summary ---
Author Organization [employer] Address 75 [facility] 7t [place] [address] Care Team Providers Care Steamship Agent Name Role Phone Amy Pickett MD Primary Care Pro vider Encounter Details Date Type Department Care Team ([facility] st Contact Info) Description 09/01/2024 Telephone [facility] 230 [place], [place] [phone] Amy Pickett MD 230 [place], [place] [phone] Social History Tobacco Use Types Packs/Day Years [...] Office Visit [facility] [address] [place] [phone] documented as of this encounter Visit Diagnoses Not on filedocumented in this encounter Additional Health Concerns Assessment Noted Time PHQ-9 Depression Total Score: 10 024 9:41 AM EDT documented as of this encounter Care Teams Steamship Agent Relationship Specialty Start Date End Date Amy Pickett MD [address] [place] [address] PCP - General Internal Medicine 04/07/23 documented as of this encounter
--- OUTSIDE RECORDS SUMMARY | 2025-03-23 14:06 | XMS_ITS | Encounter Summary ---
Author Organization [employer] Address [address] [place] [address] 7 [place] [address] Care Team Providers Care Pharmacy Analyst Name Role Phone Amy Pickett MD Primary Care Pro vider Reason for Visit * Reason Onset Date Comments Med Refill 05/13/2024 Encounter Details Date Type Department Care Team ([facility] st Contact Info) Description 05/13/2024 Telephone [facility] 230 [place], [place] [phone] Amy Pickett MD 230 [place], [place] [phone] Med Refill Social History Tobacco Use Types [...] immediate release tablet To be sent to: [facility]/pharmacy #[id number] - [address] documented in this encounter Plan of Treatment Upcoming Encounters Date Type Department Care Team (Late st Contact Info) Description 03/29/2025 9:45 AM EDT Office Visit [facility] 230 [place], [place] [phone] documented as of this encounter Visit Diagnoses Not on filedocumented in this encounter Additional Health Concerns Assessment Noted Time PHQ-9 Depression Total Score: 10 024 9:41 AM EDT documented as of this encounter Care Teams Pharmacy Analyst Relationship Specialty Start Date End Date Amy Pickett MD 230 [place], [place] [phone] PCP - General Internal Medicine 04/07/23 documented as of this encounter
--- OUTSIDE RECORDS SUMMARY | 2025-03-23 14:07 | XMS_ITS | Encounter Summary ---
Author Organization [employer] Address 75 [facility] 7 [place] [address] Care Team Providers Care Mechanism Inspector Name Role Phone Amy Pickett MD Primary Care Pro vider Reason for Visit * Reason Onset Date Comments Appointment Request 09/02/2023 Encounter Details Date Type Department Care Team ([facility] st Contact Info) Description 09/02/2023 Telephone [facility] 230 [place], [place] [phone] Amy Pickett MD 230 [place] [address] Appointment Request Social History Tobacco Use Types [...] t he electric, gas, oil or water [employer] threatened to shut off services in your [...] from pt requesting a transfer patient appointment. Technology Director does not see any availability. Pt states he needs appointment as soon as possible due to controlled medication. States needs to be seen bya new provider to continue medication. Please contact pt at [phone] documented in this encounter Plan of Treatment Upcoming Encounters Date Type Department Care Team (Late st Contact Info) Description 03/29/2025 9:45 AM EDT Office Visit [facility] [address] [place] [phone] documented as of this encounter Visit Diagnoses Not on filedocumented in this encounter Additional Health Concerns Assessment Noted Time PHQ-9 Depression Total Score: 24 023 10:05 AM EDT documented as of this encounter Care Teams Mechanism Inspector Relationship Specialty Start Date End Date Amy Pickett MD [address] [place] [address] PCP - General Internal Medicine 04/07/23 documented as of this encounter
--- OUTSIDE RECORDS SUMMARY | 2025-03-23 14:07 | XMS_ITS | Encounter Summary ---
Author Organization [employer] Address [address] [place] [address] 7t [place] [address] Care Team Providers Care Police Captain Precinct Name Role Phone Elise Glover FRONT END LOADER DRIVER Primary Care Provider Amy Ware MD Primary Care Pro vider Encounter Details Date Type Department Care Team (Late st Contact Info) Description 01/14/2023 Orders Only [facility] [address] [place] [phone] Elise Glover FNP Social History Tobacco Use [...] Office Visit [facility] [address] [place] [address] [phone] documented as of this encounter Visit Diagnoses Not on filedocumented in this encounter Additional Health Concerns Assessment Noted Time PHQ-9 Depression Total Score: 24 03/28/2 023 10:05 AM EDT documented as of this encounter Care Teams Police Captain Precinct Relationship Specialty Start Date End Date Elise Glover FNP PCP - General Family Medicine 07/09/22 04/06/23 Amy Pickett MD [address] [place] [address] PCP - General Internal Medicine 04/07/23 documented as of this encounter
--- OUTSIDE RECORDS SUMMARY | 2025-03-23 14:07 | XMS_ITS | Encounter Summary ---
Author Organization [employer] Address [address] [place] [address] 7t [place] [address] Care Team Providers Care Company Dancer Name Role Phone Elise Glover AIRLINE DISPATCHER Primary Care Provider Amy Ware MD Primary Care Pro vider Reason for Visit * Reason Onset Date Comments Durable Medical Equipment 10/07/2022 Encounter Details Date Type Department Care Team (Late st Contact Info) Description 10/07/2022 Telephone [facility] [address] [place] [address] Elise Glover, AIRLINE DISPATCHER Durable Medical Equipment Social History Tobacco Use [...] If any questions please contact Anabelle at [phone] documented in this encounter Plan of Treatment Upcoming Encounters Date Type Department Care Team (Late st Contact Info) Description 03/29/2025 9:45 AM EDT Office Visit [facility] [address] [place] [address] documented as of this encounter Visit Diagnoses Not on filedocumented in this encounter Additional Health Concerns Assessment Noted Time PHQ-9 Depression Total Score: 24 10/01/ 023 10:05 AM EDT documented as of this encounter Care Teams Company Dancer Relationship Specialty Start Date End Date Elise Glover FNP PCP - General Family Medicine 07/09/22 04/06/23 Amy Pickett MD 230 [place] [address] PCP - General Internal Medicine 04/07/23 documented as of this encounter
--- OUTSIDE RECORDS SUMMARY | 2025-03-23 14:07 | XMS_ITS | Encounter Summary ---
Author Organization [employer] Address [address] [place] [address] 7 [place] [address] Care Team Providers Care Medical Doctor Nuclear Medicine Name Role Phone Amy Pickett MD Primary Care Pro vider Reason for Visit * Reason Onset Date Comments Med Refill 2024 Encounter Details Date Type Department Care Team ([facility] st Contact Info) Description 2024 Telephone [facility] 230 [place], [place] [phone] Amy Pickett MD 230 [place], [place] [phone] Med Refill Social History Tobacco Use Types [...] sent to: [facility]/pharmacy #[id number] documented in this encounter Plan of Treatment Upcoming Encounters Date Type Department Care Team (Late st Contact Info) Description 03/29/2025 9:45 AM EDT Office Visit [facility] 230 [place], [place] [phone] documented as of this encounter Visit Diagnoses Not on filedocumented in this encounter Additional Health Concerns Assessment Noted Time PHQ-9 Depression Total Score: 0 11/25/19 25 2:10 PM EDT documented as of this encounter Care Teams Medical Doctor Nuclear Medicine Relationship Specialty Start Date End Date Amy Pickett MD 230 [place], [place] [phone] PCP - General Internal Medicine 04/07/23 documented as of this encounter
--- OUTSIDE RECORDS SUMMARY | 2025-03-23 14:07 | XMS_ITS | Encounter Summary ---
Author Organization [employer] Address 75 [facility] 7t [place] [address] Care Team Providers Care Rehab Therapy Manager Name Role Phone Elise Glover PORTABLE MACHINE SANDER Primary Care Provider Amy Ware MD Primary Care Pro vider Reason for Visit * Reason Comments Med Change Request Encounter Details Date Type Department Care Team (Late st Contact Info) Description 03/03/2023 Refill [facility] [address] [place] [address] Elise Glover FNP Essential hypertension Social History [...] Visit [facility] [address] [place] [phone] documented as of this encounter Visit Diagnoses Diagnosis Essential hypertension Unspecified essential hypertension documented in this encounter Additional Health Concerns Assessment Noted Time PHQ-9 Depression Total Score: 24 10/01/ 023 10:05 AM EDT documented as of this encounter Care Teams Rehab Therapy Manager Relationship Specialty Start Date End Date Elise Glover FNP PCP - General Family Medicine 07/09/22 04/06/23 Amy Pickett MD [address] [place] [address] PCP - General Internal Medicine 04/07/23 documented as of this encounter
--- OUTSIDE RECORDS SUMMARY | 2025-03-23 14:07 | XMS_ITS | Encounter Summary ---
Author Organization [employer] Address 75 [facility] 7t [place] [address] Care Team Providers Care Internal Control Analyst Name Role Phone Amy Pickett MD Primary Care Pro vider Encounter Details Date Type Department Care Team (Late st Contact Info) Description 03/22/2025 Orders Only [facility] External Provider, [facility] Social History Tobacco Use Types [...] [facility] [address] [place] [address] documented as of this encounter Procedures Procedure Name Priority Date/Time Associated Diagnosis Comments XR PELVIS 1-2 VIEWS Routine 03/22/2025 1 :32 PM EDT documented in this encounter Results * XR Pelvis 1-2 Views (03/22/2025 1:32 PM EDT) Anatomical Region Laterality Modality Body, Pelvis Radiographic Maxine ging 03/22/2025 1:32 PM EDT Narrative 03/22/2025 1:45 PM EDT [address] [address] XRay Report Signed Patient: Zain Welch MR# : [id number] : 1965 Acct:[id number] Age/Sex: 59 / M ADM Date: 03/22/25 Loc: [facility] Attending Dr: Salvador Elliott MD Ordering Physician: Salvador Elliott MD Date of Service: 03/22/25 Procedure(s): XR pelvis 1-2V Accession Number(s): [id number] cc: Salvador Elliott MD; Amy Pickett MD [...] 03/22/25 1343 DD/ 1332 TD/TT: 03/22/25 1335 House Rn: Procedure Note Donotuseinterpreter, Image - 03/22/[address] [address] XRay Report Signed Patient: Zain Welch LMR# : [id number] : [id number]:[id number] Age/Sex: 59 / MADM Date: 03/22/25 Loc: [facility] Attending Dr: Salvador Elliott MD Ordering Physician: Salvador Elliott MD Date of Service: 03/22/25 Procedure(s): XR pelvis 1-2V Accession Number(s): [id number] cc: Salvador Elliott MD; Amy Pickett MD [...] 03/22/25 1343 DD/ 1332 TD/TT: 03/22/25 1335 House Rn: [facility] External Provider IMG XR PROCEDURES Edited Result - Final documented in this encounter Visit Diagnoses Not on filedocumented in this encounter Additional Health Concerns Assessment Noted Time PHQ-9 Depression Total Score: 0 11/25/19 25 2:10 PM EDT documented as of this encounter Care Teams Internal Control Analyst Relationship Specialty Start Date End Date Amy Pickett MD [address] [place] [address] PCP - General Internal Medicine 04/07/23 documented as of this encounter
--- OUTSIDE RECORDS SUMMARY | 2025-03-23 14:07 | XMS_ITS | Encounter Summary ---
Author Organization [employer] Address 75 [facility] 7 [place] [address] Care Team Providers Care Photoengraving Supervisor Name Role Phone Amy Pickett MD Primary Care Pro vider Reason for Visit * Reason Comments Med Refill Encounter Details Date Type Department Care Team ([facility] st Contact Info) Description 06/17/2024 Refill [facility] 230 [place], [place] [phone] Amy Pickett MD 230 [place] [address] Social History Tobacco Use Types Packs/Day Years [...] Description 03/29/2025 9:45 AM EDT Office Visit [facility] 230 [place] [address] documented as of this encounter Visit Diagnoses Not on filedocumented in this encounter Additional Health Concerns Assessment Noted Time PHQ-9 Depression Total Score: 10 024 9:41 AM EDT documented as of this encounter Care Teams Photoengraving Supervisor Relationship Specialty Start Date End Date Amy Pickett MD 230 [place] [address] PCP - General Internal Medicine 04/07/23 documented as of this encounter
--- OUTSIDE RECORDS SUMMARY | 2025-03-23 14:07 | XMS_ITS | Encounter Summary ---
Author Organization [employer] Address 75 [facility] 7 [place] [address] Care Team Providers Care Bill Cutter Name Role Phone Amy Pickett MD Primary Care Pro vider Reason for Visit * Reason Onset Date Comments Results 10/01/2024 Encounter Details Date Type Department Care Team ([facility] st Contact Info) Description 10/01/2024 Telephone [facility] 230 [place], [place] [phone] Amy Pickett MD [address] [place] [address] Results Social History Tobacco Use Types Packs/Day [...] Blood Test Date when done: 09/29/24 Facility: [facility] Contact pt at [phone] documented in this encounter Plan of Treatment Upcoming Encounters Date Type Department Care Team (Late st Contact Info) Description 03/29/2025 9:45 AM EDT Office Visit [facility] 230 [place] [address] documented as of this encounter Visit Diagnoses Not on filedocumented in this encounter Additional Health Concerns Assessment Noted Time PHQ-9 Depression Total Score: 10 024 9:41 AM EDT documented as of this encounter Care Teams Bill Cutter Relationship Specialty Start Date End Date Amy Pickett MD 230 [place], [place] [phone] PCP - General Internal Medicine 04/07/23 documented as of this encounter
--- OUTSIDE RECORDS SUMMARY | 2025-03-23 14:07 | XMS_ITS | Encounter Summary ---
Author Organization [employer] Address [address] [facility] [address] 7t [place] [address] Care Team Providers Care Kiln Tester Name Role Phone Amy Pickett MD Primary Care Pro vider Encounter Details Date Type Department Care Team (Late st Contact Info) Description 06/24/2024 Orders Only [facility] [address] [place] [address] Provider, MD Bryan Social History Tobacco Use [...] Description 03/29/2025 9:45 AM EDT Office Visit [facility] 230 [place] [address] documented as of this encounter Procedures Procedure [...] documented as of this encounter Care Teams Kiln Tester Relationship Specialty Start Date End Date Amy Pickett MD 230 [place] [address] PCP - General Internal Medicine 04/07/23 documented as of this encounter
--- OUTSIDE RECORDS SUMMARY | 2025-03-23 14:07 | XMS_ITS | Clinical Summary ---
Author Organization [employer] Address [address] [place] [address] 7t [place] [address] Care Team Providers Care Business Machines Teacher Name Role Phone Amy Pickett MD [...] vomiting. 60 tablet 1 023 Active pancrelipase, Ubb-Mgsg-Asam, (Creon) 9721-4917 units capsule Take 1 capsule by mouth [...] oxyCODONE (Roxicodone) 15 MG immediate release tabletIndicatio ns:UTILIZATION ENGINEER checked 06/13/22 Take 1 tablet (15 mg) [...] 15 days. 30 tablet 025 2024 Active gabapentin (Neurontin) 600 MG tabletIndicatio ns:Chronic low back pain, unspecified back pain laterality, unspecified whether sciatica present TAKE 1 TABLET BY MOUTH EVERYDAY AT BEDTIME 30 tablet 2 025 2024 Discontinued oxyCODONE (Roxicodone) 15 MG immediate release tabletIndicatio ns:UTILIZATION ENGINEER checked 06/13/22 Take 1 tablet (15 mg) [...] -Supportive care advised. -Isolation recommendations discussed. 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 Confirmatory testing sent. Chronic obstructive pulmonar y disease, unspecified COPD type 05/16/2024 Overview (09/05/2024): Following with [facility] pulmonology-Dr. Maldonado Continue with Combivent inhaler Claudication [...] Injections 11/2022 Encouraged stretching Will refer to [facility] Continue SOLID FIBER PASTER OPERATOR at this time. Will perform random Utox [...] root compression . Seen by Neurosurgery at [facility], note pending Referred to Pain Management November 2024 Assessment & Plan (01/25/2025 1:44 PM EDT): -Good engagement and participation with Group Medical Visit model -Encouraged multifactorial approach to pain control including pharm and non- pharm modalities -Pill count as expected, Utox pos cocaine. Confirmatory testing sent. See hand crocheter. Assessment & Plan (09/28/2024 2:02 PM EDT): [...] C7 fracture seen on CT scan at [facility] 10/28/23 He participated fully in group [...] C7 fracture seen on CT scan at [facility] 10/28/23 He participated fully in group [...] Injections 11/2022 Encouraged stretching Will refer to [facility] physical therapy Continue SOLID FIBER PASTER OPERATOR at this time. Will perform random Utox [...] lumbar pain. Encouraged stretching Will refer to [facility] Continue SOLID FIBER PASTER OPERATOR at this time. Will perform random Utox [...] Department Care Team Description 03/22/2025 Orders Only [facility] External Provider, [facility] 03/18/2025 Orders Only [facility] MEDICINE [address] [place] [address] Amy Pickett MD 03/18/2025 Telephone [facility] MEDICINE [address] [place] [phone] Amy Pickett MD Change PCP 03/18/2025 Telephone [facility] MED & PEDS [address] [place] [address] 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 RN 03/17/2025 Orders Only [facility] MEDICINE [address] [place] [address] Amy Pickett MD 03/17/2025 Telephone [facility] MEDICINE [address] [place] [address] Amy Pickett MD Nurse Triage 03/17/2025 Telephone [facility] MEDICINE [address] [place] [address] Aym Pickett MD Medication Question 03/16/2025 Telephone [facility] MED & PEDS [address] [place] [address] 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 RN 03/16/2025 Telephone [facility] MEDICINE [address] [place] [address] Amy Pickett MD FYI 03/08/2025 Orders Only [facility] MEDICINE [address] [place] [address] Amy Pickett MD 03/08/2025 Telephone [facility] MED & PEDS [address] [place] [address] 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 RN 03/05/[address] [address] Amy Pickett MD Chronic low back pain, unspecified back pain laterality, unspecified whether sciatica present 03/03/[address] [address] Amy Pickett MD Durable Medical Equipment 03/03/[address] [address] Amy Pickett MD call back requesting 03/01/2025 9:10 AM EDT Clinical Support [address] [address] 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, DARIANA 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 03/01/2025 Orders Only [address] [address] Amy Pickett MD 03/01/2025 Telephone [facility] MED & PEDS [address] [place] [address] 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 RN 03/01/2025 Travel 02/24/2025 Refill [facility] MED & PEDS [address] [place] [address] 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, interlocking pavement installer pain of both knees; Chronic low back pain, unspecified back pain laterality, unspecified whether sciatica present 02/24/[address] [address] Amy Pickett MD med 02/24/[address] [address] Amy Pickett MD Med Refill 02/19/[address] [address] Amy Pickett MD 02/10/2025 9:30 AM EDT Office Visit [address] [address] Amy Pickett MD Cervical spondylosis without myelopathy (Primary Dx); Chronic migraine without aura without status migrainosus, not intractable; Essential hypertension; H/O lipoma; Mass of wrist, right; Claudication of left lower extremity ([facility]); Health care maintenance; Lipoma, unspecified site; 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; Chronic right shoulder pain; Spondylosis of cervical spine 02/10/2025 Telephone [facility] MEDICINE [address] [place] [address] Amy Pickett MD Change PCP; TRANSFER REQUEST 02/10/2025 Travel 02/08/2025 Refill [facility] WALK-IN CENTER [address] [place] [address] Amy Pickett MD 02/03/[address] [address] Bri Noriega MD 02/01/[address] [address] Amy Pickett MD Durable Medical Equipment 01/27/2025 Orders Only [facility] External Provider, [facility] 01/25/2025 9:45 AM EDT Office Visit [address] [address] Holly Wills FNP Spondylosis of cervical spine (Primary Dx); care home 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 01/25/2025 Telephone [facility] MED & PEDS [address] [place] [address] 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 RN 01/25/2025 Travel 01/21/[address] [address] Amy Pickett MD Chronic pain of both knees; Chronic low back pain, unspecified back pain laterality, unspecified whether sciatica present 01/11/2025 Refill [facility] WALK[facility]IN [facility]ENTER [address] [place] [address] Brent Hanson MD 01/10/[address] [address] Amy Pickett MD TP request 12/29/2024 Telephone [address] [place] [address] Amy Pickett MD fyi 12/28/2024 9:00 AM EDT Clinical Support [address] [address] Danay Flaherty RN 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 (Primary Dx) 12/28/2024 Travel 2024 Refill [facility] MED & PEDS [address] [place] [address] 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 RN Chronic pain of both knees; Chronic low back pain, unspecified back pain laterality, unspecified whether sciatica present 2024 Refill [facility] MEDICINE [address] [place] [address] Amy Pickett MD Moderate persistent asthma without complication [address] [address] Amy Pickett MD Med Refill from Last [...] 03/29/2025 9:45 AM EDT Office Visit [facility] MEDICINE [address] [place] [phone] Health Maintenance Due Date Last Done Comments [...] DRUG SCREEN Routine 03/01/2025 10:10 AM EDT care home 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 DRUG MONITOR, COCAINE METAB, QN, URINE Routine 03/01/2025 9:32 AM EDT XR WRIST 3+ VIEWS RIGHT Routine 01/27/2025 11:18 AM EDT XR ELBOW 1-2 VIEWS RIGHT Routine 01/27/2025 11:13 AM EDT XR SHOULDER 2+ VIEWS RIGHT Routine 01/27/2025 11:06 AM EDT POCT ROBIN-14 URINE DRUG SCREEN Routine 01/25/2025 10:15 AM EDT Spondylosis of cervical spine 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 DRUG MONITOR, COCAINE METAB, QN, URINE Routine 01/25/2025 9:30 AM EDT Spondylosis of cervical spine care home 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 POCT ROBIN-14 URINE DRUG SCREEN Routine 12/28/2024 10:32 AM EDT 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 HEPATITIS C [...] PM EDT Narrative 03/22/2025 1:45 PM EDT [address] [address] XRay Report Signed Patient: Zain Welch MR# : [id number] : 1965 Acct:[id number] Age/Sex: 59 / M ADM Date: 03/22/25 Loc: HO.COLE Attending Dr: Salvador Elliott MD Ordering Physician: Salvador Elliott MD Date of Service: 03/22/25 Procedure(s): XR pelvis 1-2V Accession Number(s): [id number] cc: Salvador Elliott MD; Amy Pickett MD [...] Amado Limon MD 03/22/2025 01:43 PM EDT RP Dictated By: Amado Limon MD Signed By: <Electronically signed by Amado Limon MD in OV> 03/22/25 1343 DD/ 1332 TD/TT: 03/22/25 1335 Meeting Coordinator: Procedure Note Donotuseinterpreter, Image - 03/22/[address] [address] XRay Report Signed Patient: Zain Welch LMR# : [id number] : 1965Acct:[id number] Age/Sex: 59 / MADM Date: 03/22/25 Loc: HO.XRAY Attending Dr: Salvador Elliott MD Ordering Physician: Salvador Elliott MD Date of Service: 03/22/25 Procedure(s): XR pelvis 1-2V Accession Number(s): [id number] cc: Salvador Elliott MD; Amy Pickett MD [...] OV> 03/22/25 1343 DD/ 1332 TD/TT: 03/22/25 133 Meeting Coordinator: [facility] External Provider IMG XR PROCEDURES Edited [...] - 03/01/2025 10:10 AM EDT .UTOX cup Lot#[id number] Exp. 04/12/26 Internal Pass Control Amy Berry MD POINT OF CARE SOHA T ENTER/EDIT ORDERABLES Final Result * Drug Monitoring, Cocaine Metabolite, Quantitative, Urine (03/01/2025 9:32 AM EDT) Only the most recent of2 resultswithin the time period is included. Benzoylecgonine [address] [facility] Comment:CUTOFF 100NG/MLPERFO RMING SITE:[employer] [facility], [address] [place], [place] [phone] High Speed Operator: MICHELLE GAUTAM MD, CLIA:[id number] Cocaine Comments SEE NOTE [facility] Comment:This drug testing is for medical treatment only. Analysiswas performed as non-forensic testing and these resultsshould be used only by healthcare providers torender diagnosis or treatment, or to monitor progress ofmedical conditions.Cocaine Notes:Benzoylecgonine detected is consistent with the use of thedrug Cocaine.LDT Notes:Confirmation tests were developed and their analyticalperformance characteristics have been determined by [employer]. It has not been cleared orapproved by the FDA. This assay has been validated pursuantto the CLIA regulations and is used for clinical purposes.Healthcare Providers needing Interpretation assistance,please contact us at [phone] ( ) M-F,8am to 10pm EST 03/01/2025 9:32 AM EDT 03/01/2025 1:39 PM EDT Amy Berry MD LAB URINE ORDERAB LES Final Result [facility] [address] [place] [phone] * XR Wrist 3+ Views Right (01/27/2025 11:18 AM EDT) Anatomical Region Laterality Modality Upper Extremities, Wrist Right Radiogr aphic Imaging 01/27/2025 11:1 8 AM EDT Narrative 01/27/2025 12:26 PM EDT [address] [address] XRay Report Signed Patient: Zain Welch MR# : [id number] : 1965 Acct:[id number] Age/Sex: 59 / M ADM Date: 01/27/25 Loc: HO.ED Attending Dr: Ordering Physician: Ailyn Carbone Date of Service: 01/27/25 Procedure(s): XR wrist RT min 3V Accession Number(s): [id number] cc: Ailyn Carbone; Amy Pickett MD EXAMINATION: [...] 01/27/25 1223 DD/ 1118 TD/TT: 01/27/25 1217 Meeting Coordinator: Procedure Note Donotuseinterpreter, Image - 01/27/[address] [address] XRay Report Signed Patient: Zain Welch LMR# : [id number] : 1965Acct:[id number] Age/Sex: 59 / MADM Date: 01/27/25 Loc: HO.ED Attending Dr: Ordering Physician: Ailyn Carbone Date of Service: 01/27/25 Procedure(s): XR wrist RT min 3V Accession Number(s): [id number] cc: Ailyn Carbone; Amy Pickett MD EXAMINATION: [...] 01/27/25 1223 DD/ 1118 TD/TT: 01/27/25 1217 Meeting Coordinator: [facility] External Provider IMG XR PROCEDURES Edited Result - Final * XR Elbow 1-2 Views Right (01/27/2025 11:13 AM EDT) Anatomical Region Laterality Modality Upper Extremities, Elbow Right Radiogr aphic Imaging 01/27/2025 11:1 3 AM EDT Narrative 01/27/2025 12:25 PM EDT [place] [address] XRay Report Signed Patient: Zain Welch MR# : [id number] : 1965 Acct:[id number] Age/Sex: 59 / M ADM Date: 01/27/25 Loc: HO.ED Attending Dr: Ordering Physician: Ailyn Carbone Date of Service: 01/27/25 Procedure(s): XR elbow RT 2V Accession Number(s): [id number] cc: Ailyn Carbone; Amy Pickett MD EXAMINATION: [...] 01/27/25 1223 DD/ 1113 TD/TT: 01/27/25 1217 Meeting Coordinator: Procedure Note Donotuseinterpreter, Image - 01/27/2025 [place] [address] XRay Report Signed Patient: Zain Welch LMR# : [id number] : 1965Acct:[id number] Age/Sex: 59 / MADM Date: 01/27/25 Loc: .ED Attending Dr: Ordering Physician: Ailyn Carbone Date of Service: 01/27/25 Procedure(s): XR elbow RT 2V Accession Number(s): [id number] cc: Ailyn Carbone; Amy Pickett MD EXAMINATION: [...] 01/27/25 1223 DD/ 1113 TD/TT: 01/27/25 1217 Meeting Coordinator: us [facility] External Provider IMG XR PROCEDURES Edited Result - Final * XR Shoulder 2+ Views Right (01/27/2025 11:06 AM EDT) Anatomical Region Laterality Modality Upper Extremities, Shoulder Right Radi ographic Imaging 01/27/2025 11:0 6 AM EDT Narrative 01/27/2025 12:25 PM EDT [place] [address] XRay Report Signed Patient: Zain Welch MR# : [id number] : 1965 Acct:[id number] Age/Sex: 59 / M ADM Date: 01/27/25 Loc: HO.ED Attending Dr: Ordering Physician: Ailyn Carbone Date of Service: 01/27/25 Procedure(s): XR shoulder RT min 2V Accession Number(s): [id number] cc: Ailyn Carbone; Amy Pickett MD EXAMINATION: [...] cervical spine no fully included in the agoth-tj-vyxw. Calcified plaque in the thoracic aortic arch. XR/XR shoulder RT min 2V IMPRESSION: Mild degenerative changes without acute fracture or dislocation. Electronically signed by: Tyler Cortez MD 01/27/2025 12:22 PM EDT RP Dictated By: Tyler Serrato MD Signed By: <Electronically signed by Tyler Reid MD in OV> 01/27/25 1222 DD/ 1106 TD/TT: 01/27/25 1217 Meeting Coordinator: Procedure Note Jeseotyiselinterpreter, Image - 01/27/[address] [address] XRay Report Signed Patient: Zain Welch LMR# : [id number] : 1965Acct:[id number] Age/Sex: 59 / MADM Date: 01/27/25 Loc: HO.ED Attending Dr: Ordering Physician: Ailyn Carbone Date of Service: 01/27/25 Procedure(s): XR shoulder RT min 2V Accession Number(s): [id number] cc: Ailyn Carbone; Amy Pickett MD EXAMINATION: [...] cervical spine no fully included in the rppmv-ga-vvec. Calcified plaque in the thoracic aortic arch. XR/XR shoulder RT min 2V IMPRESSION: Mild degenerative changes without acute fracture or dislocation. Electronically signed by: Tyler Cortez MD 01/27/2025 12:22 PM EDT Dictated By: Tyler Serrato MD Signed By: <Electronically signed by Tyler Reid MDin OV> 01/27/25 1222 DD/ 1106 TD/TT: 01/27/25 1217 Meeting Coordinator: [facility] External Provider IMG XR PROCEDURES Edited Result - Final * (ABNORMAL) Hepatitis C Antibody with Reflex to HCV, RNA, Quantitative, Real- Time PCR (09/29/2024 3:37 PM EDT) Hepatitis C Antibody Reactive( A) Nonreactive [facility] Comment:Presumptive evidence of antibodies to HCV. Blood Venous blood specimen / Unknown 09/29/2024 3:37 PM EDT 09/29/2024 3:38 PM EDT Brent Fischer MD LAB BLOOD ORDERABL ES Final Result Performing Organization Address [facility] [address]/[facility] Co de Phone Number [facility] [address] [place] [phone] * HIV-1/2 Antigen and Antibodies, Fourth Generation, with Reflexes (09/29/2024 3:37 PM EDT) [facility] HIV AB/AG Nonreactive Nonreactive [facility] Comment:HIV-1 p24 Ag and/or HIV-1/HIV-2 Ab not detected.A test result that is nonreactive does not exclude thepossibility of exposure to or infection with HIV-1 and/orHIV-2. Nonreactive results in this assay for individualswith prior exposure to HIV-1 and/or HIV-2 may be due toantigen and antibody levels that are below the limit ofdetection of this assay.The [employer] HIV Ag/Ab Combo assay result andsupplemental assay results should be interpreted inconjunction with the patient's clinical presentation,history and other laboratory results. If the results areinconsistent with clinical evidence, additional testing issuggested to confirm the result. Blood Venous blood specimen / Unknown 09/29/2024 3:37 PM EDT 09/29/2024 3:38 PM EDT Brent Fischer MD LAB BLOOD ORDERABL ES Final Result Performing Organization Address [facility] [address]/ZIP Co de Phone Number [facility] [address] [place] [phone] * (ABNORMAL) Lipid Panel, Standard (09/29/2024 3:37 PM EDT) [facility] Triglycerides 155(H) <150 mg/dL [facility] Comment:Desirable Triglyceri de: less than 150 mg/dLBorderline High Triglyceride 150-199 mg/dLHigh Triglyceride: 200-499 mg/dLVery High Triglyceride: greater than or equal to 5OO mg/dL Cholesterol 211(H) <200 mg/dL [facility] Comment:Desirable Cholestero l: less than 200 mg/dLBorderline High Cholesterol: 200-239 mg/dLHigh Cholesterol: greater than 239 mg/dL LDL Cholesterol Calculated 131(H) <100 mg/dL [facility] Comment:Desirable LDL: less than 100 mg/dLNear Optimal/Above Optimal LDL: 110- 129 mg/dLBorderline High LDL: 130-159 mg/dLHigh LDL: 160-189 mg/dLVery High LDL: greater than or equal to 190 mg/dL HDL Cholesterol 49 >40 mg/dL [facility] Comment:Desirable HDL: great er than 40 mg/dL Note: This HDL assay may give artificially low results in patients with liver disease. Blood Venous blood specimen / Unknown 09/29/2024 3:37 PM EDT 09/29/2024 3:38 PM EDT Amy Berry MD LAB BLOOD ORDERAB LES Final Result [facility] [address] [place] [phone] * Hm Colonoscopy (01/06/2018 8:00 AM EDT) us Historical Provider HEALTH MAINTENANCE Final Result from Last 3 Months or Most Recently Relevant to Health Maintenance Insurance [facility] ONE CARE < 65 Care Teams Business Machines Teacher Relationship Specialty Start Date End Date Amy Pickett MD [address] [place] [phone] PCP - General Internal Medicine 04/07/23
--- OUTSIDE RECORDS SUMMARY | 2025-03-23 14:07 | XMS_ITS | Encounter Summary ---
Author Organization [employer] Address [address] [place] [address] 7 [place] [address] Care Team Providers Care Wash Crew Person Name Role Phone Amy Pickett MD Primary Care Pro vider Reason for Visit * Reason Onset Date Comments Appointment Request 10/05/2024 Encounter Details Date Type Department Care Team ([facility] st Contact Info) Description 10/05/2024 Telephone [facility] MEDICINE [address] [place], [place] [phone] Amy Pickett MD [address] [place] [address] Appointment Request Social History Tobacco Use Types [...] able to make it. Contact Isa at [phone] documented in this encounter Plan of Treatment Upcoming Encounters Date Type Department Care Team (Late st Contact Info) Description 03/29/2025 9:45 AM EDT Office Visit [facility] [address] [place] [address] documented as of this encounter Visit Diagnoses Not on filedocumented in this encounter Additional Health Concerns Assessment Noted Time PHQ-9 Depression Total Score: 10 024 9:41 AM EDT documented as of this encounter Care Teams Wash Crew Person Relationship Specialty Start Date End Date Amy Pickett MD [address] [place] [address] PCP - General Internal Medicine 04/07/23 documented as of this encounter
--- OUTSIDE RECORDS SUMMARY | 2025-03-23 14:07 | XMS_ITS | Encounter Summary ---
Author Organization [employer] Address [address] [facility] 7 [place] [address] Care Team Providers Care Wagon Driller Name Role Phone Amy Pickett MD Primary Care Pro vider Reason for Visit * Reason Onset Date Comments Med Refill 02/24/2025 Encounter Details Date Type Department Care Team ([facility] st Contact Info) Description 02/24/2025 Telephone [facility] MEDICINE [address] [place], [place] [phone] Amy Pickett MD [address] [place], [place] [phone] Med Refill Social History Tobacco Use Types [...] immediate release tablet To be sent to: [facility]/pharmacy #[id number] - [address] documented in this encounter Plan of Treatment Upcoming Encounters Date Type Department Care Team (Late st Contact Info) Description 03/29/2025 9:45 AM EDT Office Visit [facility] MEDICINE [address] [place] [address] documented as of this encounter Visit Diagnoses Not on filedocumented in this encounter Additional Health Concerns Assessment Noted Time PHQ-9 Depression Total Score: 0 11/25/19 25 2:10 PM EDT documented as of this encounter Care Teams Wagon Driller Relationship Specialty Start Date End Date Amy Pickett MD [address] [place] [phone] PCP - General Internal Medicine 04/07/23 documented as of this encounter
--- OUTSIDE RECORDS SUMMARY | 2025-03-23 14:07 | XMS_ITS | Encounter Summary ---
Author Organization [employer] Address [address] [facility] [address]t [place] [address] Care Team Providers Care Bag Tester Name Role Phone Amy Pickett MD Primary Care Pro vider Encounter Details Date Type Department Care Team ([facility] st Contact Info) Description 03/18/[address] [facility] MEDICINE [address] [place], [place] [phone] Amy Pickett MD [address] [place] [address] Social History Tobacco Use Types Packs/Day Years [...] your housing situation today? I have claudio merdano 05/14/[address] you li [...] 03/29/2025 9:45 AM EDT Office Visit [facility] MEDICINE [address] [place] [address] documented as of this encounter Visit Diagnoses Not on filedocumented in this encounter Additional Health Concerns Assessment Noted Time PHQ-9 Depression Total Score: 0 11/25/19 25 2:10 PM EDT documented as of this encounter Care Teams Bag Tester Relationship Specialty Start Date End Date Amy Pickett MD [address] [place] [address] PCP - General Internal Medicine 04/07/23 documented as of this encounter
--- OUTSIDE RECORDS SUMMARY | 2025-03-23 14:07 | XMS_ITS | Encounter Summary ---
Author Organization [employer] Address [address] [facility] 7 [place] [address] Care Team Providers Care Meter Installer And Remover Name Role Phone Amy Pickett MD Primary Care Pro vider Reason for Visit * Reason Onset Date Comments Med Refill 02/11/2024 Encounter Details Date Type Department Care Team (Late st Contact Info) Description 02/11/[address] [facility] MEDICINE [address] [place], [place] [phone] Amy Pickett MD 230 [place], [place] [phone] Med Refill Social History Tobacco Use Types [...] immediate release tablet To be sent to: [facility]/pharmacy #[id number] - [address] documented in this encounter Plan of Treatment Upcoming Encounters Date Type Department Care Team (Late st Contact Info) Description 03/29/2025 9:45 AM EDT Office Visit [facility] MEDICINE [address] [place] [address] documented as of this encounter Visit Diagnoses Not on filedocumented in this encounter Additional Health Concerns Assessment Noted Time PHQ-9 Depression Total Score: 24 023 10:05 AM EDT documented as of this encounter Care Teams Meter Installer And Remover Relationship Specialty Start Date End Date Amy Pickett MD 230 [place] [address] PCP - General Internal Medicine 04/07/23 documented as of this encounter
--- OUTSIDE RECORDS SUMMARY | 2025-03-23 14:07 | XMS_ITS | Encounter Summary ---
Author Organization [employer] Address [address] [place] [address] 7 [place] [address] Care Team Providers Care Housekeeping Aide Name Role Phone Elise Glover SUBSEA ENGINEER Primary Care Provider Amy Ware MD Primary Care Pro vider Reason for Visit * Reason Onset Date Comments triage 08/22/2022 Encounter Details Date Type Department Care Team (Late st Contact Info) Description 08/22/[address] [facility] MEDICINE [address] [place] [address] [phone] Elise Glover FNP triage Social History Tobacco [...] 03/29/2025 9:45 AM EDT Office Visit [facility] MEDICINE [address] [place] [address] [phone] documented as of this encounter Visit Diagnoses Not on filedocumented in this encounter Care Teams Housekeeping Aide Relationship Specialty Start Date End Date Elise Glover FNP PCP - General Family Medicine 07/09/22 04/06/23 Amy Pickett MD [address] [place] [address] PCP - General Internal Medicine 04/07/23 documented as of this encounter
--- OUTSIDE RECORDS SUMMARY | 2025-03-23 14:07 | XMS_ITS | Encounter Summary ---
Author Organization [employer] Address [address] [facility] 7t [place] [address] Care Team Providers Care Ophthalmologist Retina Specialist Name Role Phone Amy Pickett MD Primary Care Pro vider Encounter Details Date Type Department Care Team ([facility] st Contact Info) Description 03/18/2025 Telephone [facility] MED & PEDS [address] [place], [place] [phone] 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, RN [address] [place] [address] Social History Tobacco Use Types Packs/Day Years [...] Thanks TC to pt, spoke with pt's STEEL CONSTRUCTION WORKER, verbalized understanding. documented in this encounter Plan of Treatment Upcoming Encounters Date Type Department Care Team (Late st Contact Info) Description 03/29/2025 9:45 AM EDT Office Visit [facility] MEDICINE 230 [place] [address] documented as of this encounter Visit Diagnoses Not on filedocumented in this encounter Additional Health Concerns Assessment Noted Time PHQ-9 Depression Total Score: 0 11/25/19 25 2:10 PM EDT documented as of this encounter Care Teams Ophthalmologist Retina Specialist Relationship Specialty Start Date End Date Amy Pickett MD 230 [place] [address] PCP - General Internal Medicine 04/07/23 documented as of this encounter
--- OUTSIDE RECORDS SUMMARY | 2025-03-23 14:07 | XMS_ITS | Encounter Summary ---
Author Organization [employer] Address 75 [facility] 7t [place] [address] Care Team Providers Care Rib Cutter Name Role Phone Amy Pickett MD Primary Care Pro vider Encounter Details Date Type Department Care Team ([facility] st Contact Info) Description 03/17/2025 Orders Only [facility] MEDICINE 230 [place], [place] [phone] Amy Pickett MD 230 [place] [address] Social History Tobacco Use Types Packs/Day Years [...] EDT Office Visit [facility] MEDICINE [address] [place] [address] documented as of this encounter Visit Diagnoses Not on filedocumented in this encounter Additional Health Concerns Assessment Noted Time PHQ-9 Depression Total Score: 0 11/25/19 25 2:10 PM EDT documented as of this encounter Care Teams Rib Cutter Relationship Specialty Start Date End Date Amy Pickett MD [address] [place] [address] PCP - General Internal Medicine 04/07/23 documented as of this encounter
--- OUTSIDE RECORDS SUMMARY | 2025-03-23 14:07 | XMS_ITS | Encounter Summary ---
Author Organization [employer] Address 75 [facility] 7t [place] [address] Care Team Providers Care Crumb Packer Name Role Phone Amy Pickett MD Primary Care Pro vider Encounter Details Date Type Department Care Team ([facility] st Contact Info) Description 10/01/2024 Orders Only [facility] CH[facility] MED & PEDS 505 [place], [place] [phone] Za Preston MD 505 [place] [address] Social History Tobacco Use Types Packs/Day Years [...] Office Visit [facility] MEDICINE [address] [place] [address] documented as of this encounter Visit Diagnoses Not on filedocumented in this encounter Additional Health Concerns Assessment Noted Time PHQ-9 Depression Total Score: 10 024 9:41 AM EDT documented as of this encounter Care Teams Crumb Packer Relationship Specialty Start Date End Date Amy Pickett MD [address] [place] [address] PCP - General Internal Medicine 04/07/23 documented as of this encounter
--- OUTSIDE RECORDS SUMMARY | 2025-03-23 14:07 | XMS_ITS | Encounter Summary ---
Author Organization [employer] Address 75 [facility] 7 [place] [address] Care Team Providers Care Lining Stamper Name Role Phone Amy Pickett MD Primary Care Pro vider Reason for Visit * Reason Onset Date Comments Change PCP 03/18/2025 Encounter Details Date Type Department Care Team ([facility] st Contact Info) Description 03/18/2025 Telephone [facility] MEDICINE 230 [place], [place] [phone] Amy Pickett MD [address] [place] [address] Change PCP Social History Tobacco Use Types [...] Rosangela Berry. Will resend to Rosangela Berry, Ob Scrub Tech. * Telephone Encounter - Jesusita Castellanos - 03/18/2025 1:34 PM EDT Tc from pt requesting change PCP, pt dissatisfied with the doctor's care Contact pt at [phone] or MINISTER HELPER at [phone] documented in this encounter Plan of Treatment Upcoming Encounters Date Type Department Care Team ([facility] st Contact Info) Description 03/29/2025 9:45 AM EDT Office Visit [facility] MEDICINE 230 [place] [address] documented as of this encounter Visit Diagnoses Not on filedocumented in this encounter Additional Health Concerns Assessment Noted Time PHQ-9 Depression Total Score: 0 11/25/19 25 2:10 PM EDT documented as of this encounter Care Teams Lining Stamper Relationship Specialty Start Date End Date Amy Pickett MD [address] [place] [address] PCP - General Internal Medicine 04/07/23 documented as of this encounter
--- OUTSIDE RECORDS SUMMARY | 2025-03-23 14:07 | XMS_ITS | Encounter Summary ---
Author Organization [employer] Address [address] [place] [address] 7 [place] [address] Care Team Providers Care Nurse'S Companion Name Role Phone Amy Pickett MD Primary Care Pro vider Reason for Visit * Reason Onset Date Comments Med Refill 08/06/2024 Encounter Details Date Type Department Care Team ([facility] st Contact Info) Description 08/06/2024 Telephone [facility] MEDICINE 230 [place], [place] [phone] Amy Pickett MD 230 [place], [place] [phone] Med Refill Social History Tobacco Use Types [...] nebulizer solution To be sent to: [facility]/pharmacy #[id number] - [address] documented in this encounter Plan of Treatment Upcoming Encounters Date Type Department Care Team (Late st Contact Info) Description 03/29/2025 9:45 AM EDT Office Visit [address] [phone] documented as of this encounter Visit Diagnoses Not on filedocumented in this encounter Additional Health Concerns Assessment Noted Time PHQ-9 Depression Total Score: 10 024 9:41 AM EDT documented as of this encounter Care Teams Nurse'S Companion Relationship Specialty Start Date End Date Amy Pickett MD [address] [place] [address] PCP - General Internal Medicine 04/07/23 documented as of this encounter
== END 2025-03-23 11:18 | disposition home or self-care (01) ==
LOC: HO.HGS 10:59
PROVIDERS: PCP Student in an Organized Health Care Education/Training Program; Visit Provider Surgery
DX: M67.40 Ganglion, unspecified site (principal)
CPT/HCPCS: 20612; 99213

== ENCOUNTER → 2025-03-23 10:58 | Outpatient (BNVA) | payer OTHER, SELFPAY | PROVIDERS: PCP Student in an Organized Health Care Education/Training Program; Visit Provider Surgery | DX: M67.431 Ganglion, right wrist (principal) | CPT/HCPCS: 20612; 99212 ==

== ENCOUNTER 2025-03-30 07:22 | Outpatient (AMB) | payer OTHER, SELFPAY ==
--- OUTSIDE RECORDS SUMMARY | 2025-03-29 09:45 | XMS_ITS | Encounter Summary ---
Author Organization [employer] Address [address] [facility] [address] 7t [place] [address] Care Team Providers Care Pantry Goods Maker Name Role Phone Amy Pickett MD Primary Care Pro vider Reason for Visit * Reason Comments TUMBLING INSTRUCTOR Encounter Details Date Type Department Care Team (Latest Contact Info) Description 03/29/2025 9:45 AM EDT Clinical Support [facility] MEDICINE 230 [place] [address] 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 RN [address] [place] [address] Chronic right shoulder pain (Primary Dx) Social History Tobacco Use Types Packs/Day Years [...] Progress Notes * Holly Wills, KENDRA - 03/29/2025 9:45 AM EDT Subjective: Zain Lazcano is a 59 y.o. male w/ PMH depression, anxiety, panic attacks, HLD, HTN, COPD, gout,rheumatoid arthritis, asthma, STEPHON, and insomnia who presents to the office for - Chronic Pain Clinic Group visits. Initial Group visit: 09/16/23 Group Topic: Behavioral Health Presenter: Bridgette Shearer, [facility] Team DUE FOR TUMBLING INSTRUCTOR, has been experiencing increase in pain related to recent urology procedure where device was removed in order to complete MRI. -used to see ALEXA at [facility] # -per pt seen in 06/2024 states was seen but not recommended surgery --I called today [facility] NS today to reeval surgery option [...] as prescribed. Specialists: Saw RUBEN Padilla at [facility] 11/17/23 for lower back radiculopathy Scheduled to see NSG Dr. Prieto at [facility] to discuss C spine fracture seen at [facility] 10/2023 CT/CT cervical spine wo IV con [...] this month -used to see NS at [facility] # [phone] -per pt seen in 06/2024 states was [...] List Items Addressed This Visit Mental Health intermediate accountant 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 Overview Dx: chronic neck, low back pain, LE claudication Rx: Oxycodone 15mg IR q 6 hours Last TUMBLING INSTRUCTOR agreement: 09/28/24 Tier: 1 (monthly TUMBLING INSTRUCTOR visits) Additional considerations: Alprazolam 1mg for anxiety [...] root compression . Seen by Neurosurgery at [facility], note pending Referred to Pain Management November 2024 Current Assessment & Plan -Good engagement and participation with Group Medical Visit model -Encouraged multifactorial approach to pain control including pharm and non- pharm modalities -Pill count as expected, Utox pos cocaine. Confirmatory testing sent. See tanning drum operator. Relevant Orders Drug Monitoring, Cocaine Metabolite, Quantitative, Urine POCT ROBIN-14 Urine Drug Screen (Completed) Follow up: 1 month for Chronic Pain Group Visits. Follow up as scheduled with PCP, sooner as needed. * 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 RN - 03/29/2025 9:45 AM EDT Patient came in and was seen as a nurse visit d/t not being able top sit down for a longer time d/trecent procedure (see pt's chart). PDMP reviewed today. Last fill date: 03/26/25 (Oxycodone 5mg qid) count was (99), anticipated (98) to be remaining. BZO from an outside provider. .UTOX completed. Positive for (BZO, OXY, TCA, THC), Negative for AMP, BAR, BUP, MAGGIE, FTY, MDMA, MET, MOP, MTD, PCP, UTOX as expected. documented in this encounter Plan of Treatment Upcoming Encounters Date Type Department Care Team (Late st Contact Info) Description 05/03/2025 11:00 AM EDT Office Visit [facility] MEDICINE [address] [place] [address] documented as of this encounter Procedures Procedure Name Priority Date/Time Associated Diagnosis Comments POCT ROBIN-14 URINE DRUG SCREEN Routine 03/29/2025 10:07 AM EDT Chronic right shoulder pain documented in this encounter Results * (ABNORMAL) POCT ROBIN-14 Urine Drug Screen (03/29/2025 10:07 AM EDT) THC Positive(A) Negative Cocaine Screen, Urine Negative Negative Opiate Screen, Urine Negative Negative Methamphetamine [...] obtained by clean catch procedure / Unknown 03/29/2025 10:07 AM EDT Narrative 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 RN - 03/29/2025 10:07 AM EDT .UTOX cup Lot#[id number] Exp. 04/12/26 Internal Pass Control Amy Berry MD POINT OF CARE SOHA T ENTER/EDIT ORDERABLES Final Result documented in this encounter Visit Diagnoses Diagnosis Chronic right shoulder pain- Primary Pain in joint, shoulder region documented in this encounter Additional Health Concerns Assessment Noted Time PHQ-9 Depression Total Score: 0 11/25/19 25 2:10 PM EDT documented as of this encounter Care Teams Pantry Goods Maker Relationship Specialty Start Date End Date Amy Pickett MD [address] [place] [address] PCP - General Internal Medicine 04/07/23 documented as of this encounter
--- OUTSIDE RECORDS SUMMARY | 2025-03-30 07:26 | XMS_ITS | Clinical Summary ---
Author Organization [employer] it Address [address] [place] [address] Care Team Providers Care Cattle Examiner Name Role Phone Ba Maria MD Primary Care Provider Surgical History Surgery Date Site/Laterality Comments FOOT SURGERY PROCEDURE: [place] UNLISTED PROCEDURE FOOT/TOES; COMMENT: left foot bunion removal LIPOMA RESECTION PROCEDURE: SKIN TISSUE EXCISION(LIPOMA) OTHER SURGICAL HISTORY PROCEDURE: ---- OTHER ----; COMMENT: urethral surgeries done? three times in [facility] for difficulty urinating Medical History Medical History Date Comments Chronic back pain DX:Chronic alonso k pain Asthma DX:Asthma Anxiety DX:Anxiety; COMM ENT: follows at [facility] psychiatry Family History Medical History [...] Depression Screening 07/07/2024 COVID-19 Vaccine (1 - 2023- season) 2025 Influenza Vaccine (#1) 2025 0, 08/10/2019, 03/23/2019, Additional history exists RSV Immunization Adult Patients (1 - 1-dose 75+ series) 12/23/2042 MMR Vaccines Aged Out 02/09/2019 No longer [...] age to complete this topic Care Teams Cattle Examiner Relationship Specialty Start Date End Date Ba Maria MD PCP - General Internal Medicine 10/26/12
--- OUTSIDE RECORDS SUMMARY | 2025-03-30 07:26 | XMS_ITS | Encounter Summary ---
Author Organization [employer] Address [address] [facility] [address] 7t [place] [address] Care Team Providers Care Forestry Instructor Name Role Phone Amy Pickett MD Primary Care Pro vider Encounter Details Date Type Department Care Team (Late st Contact Info) Description 06/24/2024 Orders Only [facility] MEDICINE 230 [place] [address] Provider, MD Bryan Social History Tobacco Use [...] Description 05/03/2025 11:00 AM EDT Office Visit [facility] MEDICINE [address] [place] [address] documented as of this encounter Procedures Procedure [...] documented as of this encounter Care Teams Forestry Instructor Relationship Specialty Start Date End Date Amy Pickett MD 230 [place] [address] PCP - General Internal Medicine 04/07/23 documented as of this encounter
--- OUTSIDE RECORDS SUMMARY | 2025-03-30 07:26 | XMS_ITS | Clinical Summary ---
Author Organization [employer] Address [address] [place] [address] [address] [place] [address] Care Team Providers Care Morgue Keeper Name Role Phone Amy Pickett MD [...] vomiting. 60 tablet 1 023 Active pancrelipase, Wod-Ycdw-Pwff, (Creon) 0369-7540 units capsule Take 1 capsule by mouth [...] MEAL EACH DAY 90 capsule 025 Active cyanocobalamin (Vitamin B-12) 1000 MCG tablet TAKE 1 TABLET (1,000 MCG) BY MOUTH ONCE PER DAY. 90 tablet 025 Active nicotine polacrilex (Commit) 4 MG lozenge Dissolve 1 lozenge (4 mg) in the mouth every 2 (two) hours if needed for smoking cessation. 100 lozenge 3 025 Active olmesartan (Benicar) 40 MG tabletIndicatio ns:Essential hypertension Take 1 tablet (40 mg) by mouth Once per day. 90 tablet 025 2025 Active atorvastatin (Lipitor) 80 MG tablet TAKE 1 TABLET (80 MG) BY MOUTH IN THE MORNING 90 tablet Active gabapentin (Neurontin) 600 MG tabletIndicatio ns:Chronic [...] available. 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 112 tablet 025 2024 Active cyclobenzaprine (Flexeril) 5 MG tabletIndicatio ns:Chronic right shoulder pain Take 1 tablet (5 mg) by mouth if needed each day for muscle spasms for up to 15 days. 15 tablet 025 2024 Active gabapentin (Neurontin) 600 MG tabletIndicatio ns:Chronic low back pain, unspecified back pain laterality, unspecified whether sciatica present TAKE 1 TABLET BY MOUTH EVERYDAY AT BEDTIME 30 tablet 2 025 2024 Discontinued ipratropium-alb uterol (Combivent Respimat) 20-100 MCG/ACT inhalerIndicati ons:Moderate persistent asthma without complication INHALE 2 PUFFS BY MOUTH EVERY 6 HOURS 4 g 3 025 2024 Discontinued(R eorder (will not trigger notification to Pharmacy)) cyclobenzaprine (Flexeril) 5 MG tabletIndicatio ns:Cervical spondylosis without myelopathy Take 1 tablet (5 mg) by mouth if needed at bedtime for muscle spasms. 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 112 tablet 025 2024 Discontinued(R eorder (will not trigger notification to Pharmacy)) naloxone (Narcan) 4 mg/0.1 mL nasal spray Administer 1 spray (4 mg) into affected nostril(s) if needed for opioid reversal. May repeat every 2-3 minutes if needed, alternating nostrils, until medical assistance becomes available. 2 each 2 025 2024 Discontinued(R eorder (will not trigger notification to Pharmacy)) tiZANidine (Zanaflex) 2 MG tablet Take 1 tablet (2 mg) by mouth every 12 (twelve) hours if needed for muscle spasms for up to 15 days. 30 tablet 025 2024 Discontinued(O ther) Active Problems Problem Noted Date Diagnosed Date [...] recommended. -Supportive care advised. -Isolation recommendations discussed. retirement 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 2023 Overview (01/25/2025): Dx: chronic neck, low back pain, LE claudication Rx: Oxycodone 15mg IR q 6 hours Last TIE WORKER agreement: 09/28/24 Tier: 1 (monthly TIE WORKER visits) Additional considerations: Alprazolam 1mg for anxiety Assessment & Plan (01/25/2025 1:45 PM EDT): Timeline: -previous positive utox for cocaine 11/2023 -09/28/24: Group - utox/pill count wnl -01/25/25: Group - Pill count as expected, Utox pos cocaine. Confirmatory testing sent. Chronic obstructive pulmonar y disease, unspecified COPD type 05/16/2024 Overview (09/05/2024): Following with [facility] pulmonology-Dr. Maldonado Continue with Combivent inhaler Claudication [...] Injections 11/2022 Encouraged stretching Will refer to [facility] Continue TIE WORKER at this time. Will perform random Utox [...] root compression . Seen by Neurosurgery at [facility], note pending Referred to Pain Management November 2024 Assessment & Plan (01/25/2025 1:44 PM EDT): -Good engagement and participation with Group Medical Visit model -Encouraged multifactorial approach to pain control including pharm and non- pharm modalities -Pill count as expected, Utox pos cocaine. Confirmatory testing sent. See hammer repairer. Assessment & Plan (09/28/2024 2:02 PM EDT): [...] C7 fracture seen on CT scan at [facility] ER 10/28/23 He participated fully in group [...] C7 fracture seen on CT scan at [facility] ER 10/28/23 He participated fully in group [...] Injections 11/2022 Encouraged stretching Will refer to [facility] physical therapy Continue TIE WORKER at this time. Will perform random Utox [...] lumbar pain. Encouraged stretching Will refer to [facility] Continue TIE WORKER at this time. Will perform random Utox [...] organization. Date Type Department Care Team Description 03/29/2025 9:45 AM EDT Clinical Support [facility] MED[facility] [address] [place] [address] 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 RN Chronic right shoulder pain (Primary Dx) 03/29/2025 Telephone [facility] [address] [place] [address] 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 RN 03/29/2025 Orders Only [facility] MED[facility] [address] [place] [address] Amy Pickett MD Chronic right shoulder pain (Primary Dx) 03/29/2025 Telephone [facility] [address] [place] [address] 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 RN 03/29/2025 Travel 03/24/2025 Refill [facility] [address] [place] [address] 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 RN Chronic pain of both knees; Chronic low back pain, unspecified back pain laterality, unspecified whether sciatica present 03/24/2025 Refill [facility] [address] [place] [address] Amy Pickett MD Moderate persistent asthma without complication 03/24/2025 Telephone [facility] MED[facility] [address] [place] [address] Amy Pickett MD Med Refill 03/22/2025 Orders Only [facility] External Provider, [facility] 03/18/2025 Orders Only [facility] [address] [place] [address] Amy Pickett MD 03/18/2025 Telephone [facility] [address] [place] [address] Amy Pickett MD Change PCP 03/18/2025 Telephone [facility] [address] [place] [address] 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, DARIANA 03/17/2025 Orders Only [facility] [address] [place] [address] Amy Pickett MD 03/17/2025 Telephone [facility] MED[facility]INE [address] [place] [address] Amy Pickett MD Nurse Triage 03/17/2025 Telephone [facility] [address] [place] [address] Amy Pickett MD Medication Question 03/16/2025 Telephone [facility] [address] [place] [address] 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 RN 03/16/2025 Telephone [facility] [address] [place] [address] Amy Pickett MD FYI 03/08/2025 Orders Only [facility] [address] [place] [address] Amy Pickett MD 03/08/2025 Telephone [facility] [address] [place] [address] 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 RN 03/05/2025 Refill [facility] [address] [place] [address] Amy Pickett MD Chronic low back pain, unspecified back pain laterality, unspecified whether sciatica present 03/03/2025 Telephone [facility] [address] [place] [address] Amy Pickett MD Durable Medical Equipment 03/03/[address] [facility] [place] [address] Amy Pickett MD call back requesting 03/01/2025 9:10 AM EDT Clinical Support [facility] [address] [place] [address] 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, DARIANA retirement 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 03/01/[address] [facility] [place] [address] Amy Pickett MD 03/01/2025 Telephone [facility] [address] [place] [address] 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 RN 03/01/2025 Travel 02/24/2025 Refill [facility] [address] [place] [address] 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 RN Chronic pain of both knees; Chronic low back pain, unspecified back pain laterality, unspecified whether sciatica present 02/24/[address] [facility] [place] [address] Amy Pickett MD med 02/24/[address] [address] Amy Pickett MD Med Refill 02/19/2025 Refill [facility] [place] [address] Amy Pickett MD 02/10/2025 9:30 AM EDT Office Visit [facility] [place] [address] Amy Pickett MD Cervical spondylosis without myelopathy (Primary Dx); Chronic migraine without aura without status migrainosus, not intractable; Essential hypertension; H/O lipoma; Mass of wrist, right; Claudication of left lower extremity (CMS/HCC); Health care maintenance; Lipoma, unspecified site; retirement 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; Chronic right shoulder pain; Spondylosis of cervical spine 02/10/2025 Telephone [facility] MEDICINE [address] [place] [address] Amy Pickett MD Change PCP; TRANSFER REQUEST 02/10/2025 Travel 02/08/2025 Refill [facility] [address] [place] [address] Amy Pickett MD 02/03/[address] [address] Bri Noriega MD 02/01/[address] [address] Amy Pickett MD Durable Medical Equipment 01/27/2025 Orders Only [facility] External Provider, [facility] 01/25/2025 9:45 AM EDT Office Visit [address] [address] Holly Wills FNP Spondylosis of cervical spine (Primary Dx); retirement 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 01/25/2025 Telephone [facility] [address] [place] [address] 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 RN 01/25/2025 Travel 01/21/[address] [address] Amy Pickett MD Chronic pain of both knees; Chronic low back pain, unspecified back pain laterality, unspecified whether sciatica present 01/11/2025 Refill [facility] [address] [place] [address] Brent Hanson MD 01/10/[address] [address] Amy Pickett MD TP request 12/29/[address] [address] Amy Pickett MD fyi 12/28/2024 9:00 AM EDT Clinical Support [address] [place] [address] Danay Flaherty, RN retirement 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 (Primary Dx) 12/28/2024 Travel from Last 3 Months Immunizations Immunization Administration [...] Description 05/03/2025 11:00 AM EDT Office Visit [facility] [address] [place] [address] Health Maintenance Due Date Last Done Comments [...] Screening 01/07/2028 Lipid Panel 09/29/2029 09/29/2024, 03/19/2024 Hepatitis B Vaccines Completed 05/17/2010, 11/09/2009, 10/13/2009 Pneumococcal Vaccine: 50+ Years Completed 01/27/2024, 05/15/2020, 08/10/2019, Additional history exists Zoster Vaccines Completed 04/02/2024, 07/08, 05/15/2020 HIV Screening Completed 09/29/2024, 03/19/2024 Hepatitis C Screening Completed 09/29/2024 , 09/29/2024, 03/19/2024, Additional history exists COVID-19 Vaccine Completed 03/15/2025, , 04/08/2022, Additional history exists Influenza Vaccine Completed 03/15/2025, , 03/19/2024, Additional history exists RSV Patients and Patients Aged 60 years or older Completed 03/15/2025 HIB Vaccines Aged Out No longer eligi [...] 10:07 AM EDT Chronic right shoulder pain XR PELVIS 1-2 VIEWS Routine 03/22/2025 1 :32 PM EDT POCT ROBIN-14 URINE DRUG SCREEN Routine 03/01/2025 10:10 AM EDT retirement 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 DRUG MONITOR, COCAINE METAB, QN, URINE Routine 03/01/2025 9:32 AM EDT XR WRIST 3+ VIEWS RIGHT Routine 01/27/2025 11:18 AM EDT XR ELBOW 1-2 VIEWS RIGHT Routine 01/27/2025 11:13 AM EDT XR SHOULDER 2+ VIEWS RIGHT Routine 01/27/2025 11:06 AM EDT POCT ROBIN-14 URINE DRUG SCREEN Routine 01/25/2025 10:15 AM EDT Spondylosis of cervical spine retirement 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 DRUG MONITOR, COCAINE METAB, QN, URINE Routine 01/25/2025 9:30 AM EDT Spondylosis of cervical spine terminal superintendent 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 POCT ROBIN-14 URINE DRUG SCREEN Routine 12/28/2024 10:32 AM EDT terminal superintendent 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 HEPATITIS C [...] Urine Drug Screen (03/29/2025 10:07 AM EDT) Only the most recent of4 resultswithin the time period is included. THC Positive(A) Negative Cocaine Screen, Urine Negative [...] - 03/29/2025 10:07 AM EDT .UTOX cup Lot#[id number] Exp. 04/12/26 Internal Pass Control us Amy Berry MD POINT OF CARE SOHA T ENTER/EDIT ORDERABLES Final Result * XR Pelvis 1-2 Views (03/22/2025 1:32 PM EDT) Anatomical Region Laterality Modality Body, Pelvis Radiographic Maxine ging 03/22/2025 1:32 PM EDT Narrative 03/22/2025 1:45 PM EDT [address] [address] XRay Report Signed Patient: Zain Welch MR# : [id number] : 1965 Acct:[id number] Age/Sex: 59 / M ADM Date: 03/22/25 Loc: HO.XRAY Attending Dr: Salvador Elliott MD Ordering Physician: Salvador Elliott MD Date of Service: 03/22/25 Procedure(s): XR pelvis 1-2V Accession Number(s): [id number] cc: Salvador Elliott MD; Amy Pickett MD [...] 03/22/25 1343 DD/ 1332 TD/TT: 03/22/25 1335 Pit Furnace Melter: Procedure Note Donotuseinterpreter, Image - 03/22/[address] [address] XRay Report Signed Patient: Zain Welch LMR# : [id number] : 1965Acct:[id number] Age/Sex: 59 / MADM Date: 03/22/25 Loc: LAYLA Attending Dr: Salvador Elliott MD Ordering Physician: Salvador Elliott MD Date of Service: 03/22/25 Procedure(s): XR pelvis 1-2V Accession Number(s): [id number] cc: Salvador Elliott MD; Amy Pickett MD [...] 03/22/25 1343 DD/ 1332 TD/TT: 03/22/25 1335 Pit Furnace Melter: [facility] External Provider IMG XR PROCEDURES Edited Result - Final * Drug Monitoring, Cocaine Metabolite, Quantitative, Urine (03/01/2025 9:32 AM EDT) Only the most recent of2 resultswithin the time period is included. Pathologist [facility] [address] [facility] Comment:CUTOFF 100NG/MLPERFO RMING SITE:[facility]oya Ok[facility], [address] [place], [place] [id number] Aviation Mechanic: MICHELLE GAUTAM MD, CLIA:[id number] Cocaine Comments SEE NOTE [facility] Comment:This drug testing is for medical treatment only. Analysiswas performed as non-forensic testing and these resultsshould be used only by healthcare providers torender diagnosis or treatment, or to monitor progress ofmedical conditions.Cocaine Notes:Benzoylecgonine detected is consistent with the use of thedrug Cocaine.LDT Notes:Confirmation tests were developed and their analyticalperformance characteristics have been determined by [employer]. It has not been cleared orapproved by the FDA. This assay has been validated pursuantto the CLIA regulations and is used for clinical purposes.Healthcare Providers needing Interpretation assistance,please contact us at [phone] ( ) M-F,8am to 10pm EST 03/01/2025 9:32 AM EDT 03/01/2025 1:39 PM EDT us Amy Berry MD LAB URINE ORDERAB LES Final Result [facility] [address] [place] [address] [phone] * XR Wrist 3+ Views Right (01/27/2025 11:18 AM EDT) Anatomical Region Laterality Modality Upper Extremities, Wrist Right Radiogr aphic Imaging 01/27/2025 11:1 8 AM EDT Narrative 01/27/2025 12:26 PM EDT [place] [address] XRay Report Signed Patient: Zain Welch MR# : [id number] : 1965 Acct:[id number] Age/Sex: 59 / M ADM Date: 01/27/25 Loc: HO.ED Attending Dr: Ordering Physician: Ailyn Carbone Date of Service: 01/27/25 Procedure(s): XR wrist RT min 3V Accession Number(s): [id number] cc: Ailyn Carbone; Amy Pickett MD EXAMINATION: [...] 01/27/25 1223 DD/ 1118 TD/TT: 01/27/25 1217 Pit Furnace Melter: Procedure Note Donotuseinterpreter, Image - 01/27/2025 [place] [address] XRay Report Signed Patient: Zain Welch LMR# : [id number] : 1965Acct:[id number] Age/Sex: 59 / MADM Date: 01/27/25 Loc: HO.ED Attending Dr: Ordering Physician: Ailyn Carbone Date of Service: 01/27/25 Procedure(s): XR wrist RT min 3V Accession Number(s): [id number] cc: Ailyn Carbone; Amy Pickett MD EXAMINATION: [...] 01/27/25 1223 DD/ 1118 TD/TT: 01/27/25 1217 Pit Furnace Melter: [facility] External Provider IMG XR PROCEDURES Edited Result - Final * XR Elbow 1-2 Views Right (01/27/2025 11:13 AM EDT) Anatomical Region Laterality Modality Upper Extremities, Elbow Right Radiogr aphic Imaging 01/27/2025 11:1 3 AM EDT Narrative 01/27/2025 12:25 PM EDT [place] [address] XRay Report Signed Patient: Zain Welch MR# : [id number] : 1965 Acct:[id number] Age/Sex: 59 / M ADM Date: 01/27/25 Loc: .ED Attending Dr: Ordering Physician: Ailyn Carbone Date of Service: 01/27/25 Procedure(s): XR elbow RT 2V Accession Number(s): [id number] cc: Ailyn Carbone; Amy Pickett MD EXAMINATION: [...] 01/27/25 1223 DD/ 1113 TD/TT: 01/27/25 1217 Pit Furnace Melter: Procedure Note Donotyiselinterpreter, Image - 01/27/[address] [address] XRay Report Signed Patient: Zain Welch LMR# : [id number] : 1965Acct:[id number] Age/Sex: 59 / MADM Date: 01/27/25 Loc: HO.ED Attending Dr: Ordering Physician: Ailyn Carbone Date of Service: 01/27/25 Procedure(s): XR elbow RT 2V Accession Number(s): [id number] cc: Ailyn Carbone; Amy Pickett MD EXAMINATION: [...] 01/27/25 1223 DD/ 1113 TD/TT: 01/27/25 1217 Pit Furnace Melter: us [facility] External Provider IMG XR PROCEDURES Edited Result - Final * XR Shoulder 2+ Views Right (01/27/2025 11:06 AM EDT) Anatomical Region Laterality Modality Upper Extremities, Shoulder Right Radi ographic Imaging 01/27/2025 11:0 6 AM EDT Narrative 01/27/2025 12:25 PM EDT [address] [address] XRay Report Signed Patient: Zain Welch MR# : [id number] : 1965 Acct:[id number] Age/Sex: 59 / M ADM Date: 01/27/25 Loc: HO.ED Attending Dr: Ordering Physician: Ailyn Carbone Date of Service: 01/27/25 Procedure(s): XR shoulder RT min 2V Accession Number(s): [id number] cc: Ailyn Carbone; Amy Pickett MD EXAMINATION: [...] cervical spine no fully included in the fyrul-an-ebyh. Calcified plaque in the thoracic aortic arch. XR/XR shoulder RT min 2V IMPRESSION: Mild degenerative changes without acute fracture or dislocation. Electronically signed by: Tyler Cortez MD 01/27/2025 12:22 PM EDT RP Dictated By: Tyler Serrato MD Signed By: <Electronically signed by Tyler Reid MD in OV> 01/27/25 1222 DD/ 1106 TD/TT: 01/27/25 1217 Pit Furnace Melter: Procedure Note Donotuseinterpreter, Image - 01/27/[address] [address] XRay Report Signed Patient: Zain Welch LMR# : [id number] : 1965Acct:[id number] Age/Sex: 59 / MADM Date: 01/27/25 Loc: HO.ED Attending Dr: Ordering Physician: Ailyn Carbone Date of Service: 01/27/25 Procedure(s): XR shoulder RT min 2V Accession Number(s): [id number] cc: Ailyn Carbone; Amy Pickett MD EXAMINATION: [...] cervical spine no fully included in the dlizj-nl-trwp. Calcified plaque in the thoracic aortic arch. XR/XR shoulder RT min 2V IMPRESSION: Mild degenerative changes without acute fracture or dislocation. Electronically signed by: Tyler Cortez MD 01/27/2025 12:22 PM EDT RP Dictated By: Tyler Serrato MD Signed By: <Electronically signed by Tyler Reid MDin OV> 01/27/25 1222 DD/ 1106 TD/TT: 01/27/25 1217 Pit Furnace Melter: [facility] External Provider IMG XR PROCEDURES Edited Result - Final * (ABNORMAL) Hepatitis C Antibody with Reflex to HCV, RNA, Quantitative, Real- Time PCR (09/29/2024 3:37 PM EDT) Hepatitis C Antibody Reactive( A) Nonreactive [facility] Comment:Presumptive evidence of antibodies to HCV. Blood Venous blood specimen / Unknown 09/29/2024 3:37 PM EDT 09/29/2024 3:38 PM EDT Brent Fischer MD LAB BLOOD ORDERABL ES Final Result [facility] [address] [place] [phone] * HIV-1/2 Antigen and Antibodies, Fourth Generation, with Reflexes (09/29/2024 3:37 PM EDT) HIV AB/AG Nonreactive Nonreactive [facility] Comment:HIV-1 p24 Ag and/or HIV-1/HIV-2 Ab not detected.A test result that is nonreactive does not exclude thepossibility of exposure to or infection with HIV-1 and/orHIV-2. Nonreactive results in this assay for individualswith prior exposure to HIV-1 and/or HIV-2 may be due toantigen and antibody levels that are below the limit ofdetection of this assay.The [employer] HIV Ag/Ab Combo assay result andsupplemental assay results should be interpreted inconjunction with the patient's clinical presentation,history and other laboratory results. If the results areinconsistent with clinical evidence, additional testing issuggested to confirm the result. Blood Venous blood specimen / Unknown 09/29/2024 3:37 PM EDT 09/29/2024 3:38 PM EDT Brent Fischer MD LAB BLOOD ORDERABL ES Final Result [facility] [address] [place] [phone] * (ABNORMAL) Lipid Panel, Standard (09/29/2024 3:37 PM EDT) Triglycerides 155(H) <150 mg/dL [facility] Comment:Desirable Triglyceri de: less than 150 mg/dLBorderline High Triglyceride 150-199 mg/dLHigh Triglyceride: 200-499 mg/dLVery High Triglyceride: greater than or equal to 5OO mg/dL Cholesterol 211(H) <200 mg/dL [facility] Comment:Desirable Cholestero l: less than 200 mg/dLBorderline High Cholesterol: 200-239 mg/dLHigh Cholesterol: greater than 239 mg/dL LDL Cholesterol Calculated 131(H) <100 mg/dL [facility] Comment:Desirable LDL: less than 100 mg/dLNear Optimal/Above Optimal LDL: 110- 129 mg/dLBorderline High LDL: 130-159 mg/dLHigh LDL: 160-189 mg/dLVery High LDL: greater than or equal to 190 mg/dL HDL Cholesterol 49 >40 mg/dL [facility] Comment:Desirable HDL: great er than 40 mg/dL Note: This HDL assay may give artificially low results in patients with liver disease. Blood Venous blood specimen / Unknown 09/29/2024 3:37 PM EDT 09/29/2024 3:38 PM EDT us Amy Berry MD LAB BLOOD ORDERAB LES Final Result [facility] [address] [place] [address] [phone] * Hm Colonoscopy (01/06/2018 8:00 AM EDT) us Historical Provider HEALTH MAINTENANCE Final Result from Last 3 Months or Most Recently Relevant to Health Maintenance Insurance [address] [place], [place] [facility] < 65 [place]IMES [id number] [address] [place] [address] [place], [place] Care Teams Morgue Keeper Relationship Specialty Start Date End Date Amy Pickett MD [address] [place] [phone] PCP - General Internal Medicine 04/07/23
--- OUTSIDE RECORDS SUMMARY | 2025-03-30 07:26 | XMS_ITS | Encounter Summary ---
Author Organization [employer] Address 75 [facility] 7 [place] [address] Care Team Providers Care Packer Name Role Phone Amy Pickett MD Primary Care Pro vider Reason for Visit * Reason Onset Date Comments Med Refill 02/24/2025 Encounter Details Date Type Department Care Team ([facility] st Contact Info) Description 02/24/2025 Telephone [facility] MEDICINE [address] [place], [place] [phone] Amy Pickett MD 230 [place], [place] [phone] Med Refill Social History Tobacco Use Types [...] release tablet To be sent to: [facility]/pharmacy #1972 - [address] documented in this encounter Plan of Treatment Upcoming Encounters Date Type Department Care Team (Late st Contact Info) Description 05/03/2025 11:00 AM EDT Office Visit [facility] MEDICINE [address] [place] [address] documented as of this encounter Visit Diagnoses Not on filedocumented in this encounter Additional Health Concerns Assessment Noted Time PHQ-9 Depression Total Score: 0 11/25/19 25 2:10 PM EDT documented as of this encounter Care Teams Packer Relationship Specialty Start Date End Date Amy Pickett MD [address] [place] [address] PCP - General Internal Medicine 04/07/23 documented as of this encounter
--- OUTSIDE RECORDS SUMMARY | 2025-03-30 07:26 | XMS_ITS | Encounter Summary ---
Author Organization [employer] Address [address] [place] [address] 7 [place] [address] Care Team Providers Care Acid Mixer Name Role Phone Amy Pickett MD Primary Care Pro vider Reason for Visit * Reason Onset Date Comments call back requesting 03/03/2025 Encounter Details Date Type Department Care Team ([facility] st Contact Info) Description 03/03/2025 Telephone [facility] MEDICINE 230 [place], [place] [phone] Amy Pickett MD 230 [place] [address] call back requesting Social History Tobacco Use [...] the pt and spoke with the pt EXAMINER RATING CLERK Domenica (HIPAA compliant) in regards to the [...] device. Domenica called the pt urologist at [facility] for guidance as the pt is [...] out of he's body. Contact pt at [phone] documented in this encounter Plan of Treatment Upcoming Encounters Date Type Department Care Team (Late st Contact Info) Description 05/03/2025 11:00 AM EDT Office Visit [facility] MEDICINE [address] [place] [address] documented as of this encounter Visit Diagnoses Not on filedocumented in this encounter Additional Health Concerns Assessment Noted Time PHQ-9 Depression Total Score: 0 11/25/19 25 2:10 PM EDT documented as of this encounter Care Teams Acid Mixer Relationship Specialty Start Date End Date Amy Pickett MD [address] [place] [address] PCP - General Internal Medicine 04/07/23 documented as of this encounter
--- OUTSIDE RECORDS SUMMARY | 2025-03-30 07:26 | XMS_ITS | Encounter Summary ---
Author Organization [employer] Address [address] [place] [address] 7 [place] [address] Care Team Providers Care Diagnostics Tech Name Role Phone Amy Pickett MD Primary Care Pro vider Reason for Visit * Reason Onset Date Comments Appointment Request 10/05/2024 Encounter Details Date Type Department Care Team ([facility] st Contact Info) Description 10/05/2024 Telephone [facility] MEDICINE 230 [place], [place] [phone] Amy Pickett MD 230 [place] [address] Appointment Request Social History Tobacco Use Types [...] able to make it. Contact Isa at [phone] documented in this encounter Plan of Treatment Upcoming Encounters Date Type Department Care Team (Late st Contact Info) Description 05/03/2025 11:00 AM EDT Office Visit [facility] MEDICINE 230 [place] [address] documented as of this encounter Visit Diagnoses Not on filedocumented in this encounter Additional Health Concerns Assessment Noted Time PHQ-9 Depression Total Score: 10 024 9:41 AM EDT documented as of this encounter Care Teams Diagnostics Tech Relationship Specialty Start Date End Date Amy Pickett MD 230 [place] [address] PCP - General Internal Medicine 04/07/23 documented as of this encounter
--- OUTSIDE RECORDS SUMMARY | 2025-03-30 07:26 | XMS_ITS | Encounter Summary ---
Author Organization [employer] Address 75 [facility] 7t [place] [address] Care Team Providers Care Pharmacy Customer Care Specialist Name Role Phone Elise Glover LOAN DOCUMENTATION SPECIALIST Primary Care Provider Amy Ware MD Primary Care Pro vider Reason for Visit * Reason Comments Med Change Request Encounter Details Date Type Department Care Team (Late st Contact Info) Description 03/03/2023 Refill [facility] [address] [place] [address] Elise Glover FNP Essential hypertension Social History [...] Description 05/03/2025 11:00 AM EDT Office Visit [facility] MEDICINE [address] [place] [address] documented as of this encounter Visit Diagnoses Diagnosis Essential hypertension Unspecified essential hypertension documented in this encounter Additional Health Concerns Assessment Noted Time PHQ-9 Depression Total Score: 24 10/01/ 023 10:05 AM EDT documented as of this encounter Care Teams Pharmacy Customer Care Specialist Relationship Specialty Start Date End Date Elise Glover FNP PCP - General Family Medicine 07/09/22 04/06/23 Amy Pickett MD [address] [place] [address] PCP - General Internal Medicine 04/07/23 documented as of this encounter
--- OUTSIDE RECORDS SUMMARY | 2025-03-30 07:26 | XMS_ITS | Encounter Summary ---
Author Organization [employer] Address 75 [facility] 7t [place] [address] Care Team Providers Care Ply Splicer Name Role Phone Amy Pickett MD Primary Care Pro vider Encounter Details Date Type Department Care Team ([facility] st Contact Info) Description 09/01/2024 Telephone [facility] MEDICINE 230 [place], [place] [phone] Amy Pickett MD 230 [place], [place] [phone] Social History Tobacco Use Types Packs/Day Years [...] Description 05/03/2025 11:00 AM EDT Office Visit [facility] MEDICINE 230 [place] [address] documented as of this encounter Visit Diagnoses Not on filedocumented in this encounter Additional Health Concerns Assessment Noted Time PHQ-9 Depression Total Score: 10 024 9:41 AM EDT documented as of this encounter Care Teams Ply Splicer Relationship Specialty Start Date End Date Amy Pickett MD [address] [place] [address] PCP - General Internal Medicine 04/07/23 documented as of this encounter
--- OUTSIDE RECORDS SUMMARY | 2025-03-30 07:26 | XMS_ITS | Clinical Summary ---
Author Organization [facility] Address [address] [place] [address] Care Team Providers Care Electric Motor Controls Assembler Name Role Phone Donna Harmon MD Primary [...] Influenza Vaccine (#1) 2025 Insurance [facility] [place] [id number] Care Teams Electric Motor Controls Assembler Relationship Specialty Start Date End Date Donna Harmon MD PCP - General 05/11/19
--- OUTSIDE RECORDS SUMMARY | 2025-03-30 07:26 | XMS_ITS | Encounter Summary ---
Author Organization [employer] Address 75 [facility] 7t [place] [address] Care Team Providers Care Outreach Manager Name Role Phone Amy Pickett MD Primary Care Pro vider Encounter Details Date Type Department Care Team ([facility] st Contact Info) Description 09/01/2024 Telephone [facility] MEDICINE 230 [place], [place] [phone] Amy Pickett MD 230 [place], [place] [phone] Social History Tobacco Use Types Packs/Day Years [...] Description 05/03/2025 11:00 AM EDT Office Visit [facility] MEDICINE [address] [place] [address] documented as of this encounter Visit Diagnoses Not on filedocumented in this encounter Additional Health Concerns Assessment Noted Time PHQ-9 Depression Total Score: 10 024 9:41 AM EDT documented as of this encounter Care Teams Outreach Manager Relationship Specialty Start Date End Date Amy Pickett MD [address] [place] [address] PCP - General Internal Medicine 04/07/23 documented as of this encounter
--- OUTSIDE RECORDS SUMMARY | 2025-03-30 07:26 | XMS_ITS | Encounter Summary ---
Author Organization [employer] Address 75 [facility] 7t [place] [address] Care Team Providers Care Cellars Supervisor Name Role Phone Amy Pickett MD Primary Care Pro vider Encounter Details Date Type Department Care Team ([facility] st Contact Info) Description 10/01/2024 Orders Only [facility] [address] [place], [place] [phone] Za Preston MD 505 [place] [address] Social History Tobacco Use Types Packs/Day Years [...] Description 05/03/2025 11:00 AM EDT Office Visit [facility] MEDICINE 230 [place] [address] documented as of this encounter Visit Diagnoses Not on filedocumented in this encounter Additional Health Concerns Assessment Noted Time PHQ-9 Depression Total Score: 10 024 9:41 AM EDT documented as of this encounter Care Teams Cellars Supervisor Relationship Specialty Start Date End Date Amy Pickett MD 230 [place] [address] PCP - General Internal Medicine 04/07/23 documented as of this encounter
--- OUTSIDE RECORDS SUMMARY | 2025-03-30 07:26 | XMS_ITS | Encounter Summary ---
Author Organization [employer] Address [address] [place] [address] 7 [place] [address] Care Team Providers Care Technical Sales Director Name Role Phone Amy Pickett MD Primary Care Pro vider Reason for Visit * Reason Onset Date Comments Med Refill 05/13/2024 Encounter Details Date Type Department Care Team ([facility] st Contact Info) Description 05/13/2024 Telephone [facility] MEDICINE 230 [place], [place] [phone] Amy Pickett MD 230 [place], [place] [phone] Med Refill Social History Tobacco Use Types [...] release tablet To be sent to: [facility]/pharmacy #1972 - [address] documented in this encounter Plan of Treatment Upcoming Encounters Date Type Department Care Team (Late st Contact Info) Description 05/03/2025 11:00 AM EDT Office Visit [facility] MEDICINE [address] [place], [place] [phone] documented as of this encounter Visit Diagnoses Not on filedocumented in this encounter Additional Health Concerns Assessment Noted Time PHQ-9 Depression Total Score: 10 024 9:41 AM EDT documented as of this encounter Care Teams Technical Sales Director Relationship Specialty Start Date End Date Amy Pickett MD 230 [place], [place] [phone] PCP - General Internal Medicine 04/07/23 documented as of this encounter
--- OUTSIDE RECORDS SUMMARY | 2025-03-30 07:26 | XMS_ITS | Encounter Summary ---
Author Organization [employer] Address 75 [facility] 7 [place] [address] Care Team Providers Care Veterinary X Ray Operator Name Role Phone Amy Pickett MD Primary Care Pro vider Reason for Visit * Reason Comments Med Refill Encounter Details Date Type Department Care Team ([facility] st Contact Info) Description 06/17/2024 Refill [facility] MEDICINE 230 [place], [place] [phone] Amy Pickett MD 230 [place] [address] Social History Tobacco Use Types Packs/Day Years [...] Description 05/03/2025 11:00 AM EDT Office Visit [facility] MEDICINE 230 [place] [address] documented as of this encounter Visit Diagnoses Not on filedocumented in this encounter Additional Health Concerns Assessment Noted Time PHQ-9 Depression Total Score: 10 024 9:41 AM EDT documented as of this encounter Care Teams Veterinary X Ray Operator Relationship Specialty Start Date End Date Amy Pickett MD 230 [place] [address] PCP - General Internal Medicine 04/07/23 documented as of this encounter
--- OUTSIDE RECORDS SUMMARY | 2025-03-30 07:26 | XMS_ITS | Encounter Summary ---
Author Organization [employer] Address [address] [place] [address] 7 [place] [address] Care Team Providers Care Breastfeeding Program Coordinator Name Role Phone Amy Pickett MD Primary Care Pro vider Reason for Visit * Reason Onset Date Comments Med Refill 04/09/2024 Encounter Details Date Type Department Care Team (Late st Contact Info) Description 04/09/2024 Telephone [facility] MEDICINE 230 [place], [place] [phone] Amy Pickett MD 230 [place], [place] [phone] Med Refill Social History Tobacco Use Types [...] sent to: [facility]/pharmacy #1972 - [address] documented in this encounter Plan of Treatment Upcoming Encounters Date Type Department Care Team (Late st Contact Info) Description 05/03/2025 11:00 AM EDT Office Visit [facility] MEDICINE 230 [place] [address] documented as of this encounter Visit Diagnoses Not on filedocumented in this encounter Additional Health Concerns Assessment Noted Time PHQ-9 Depression Total Score: 10 024 9:41 AM EDT documented as of this encounter Care Teams Breastfeeding Program Coordinator Relationship Specialty Start Date End Date Amy Pickett MD 230 [place] [address] PCP - General Internal Medicine 04/07/23 documented as of this encounter
--- OUTSIDE RECORDS SUMMARY | 2025-03-30 07:26 | XMS_ITS | Encounter Summary ---
Author Organization [employer] Address 75 [facility] 7 [place] [address] Care Team Providers Care Instrument Calibrator Name Role Phone Amy Pickett MD Primary Care Pro vider Reason for Visit * Reason Onset Date Comments Results 10/01/2024 Encounter Details Date Type Department Care Team ([facility] st Contact Info) Description 10/01/2024 Telephone [facility] MEDICINE 230 [place], [place] [phone] Amy Pickett MD 230 [place] [address] Results Social History Tobacco Use Types Packs/Day [...] Blood Test Date when done: 09/29/24 Facility: [facility] Contact pt at [phone] documented in this encounter Plan of Treatment Upcoming Encounters Date Type Department Care Team (Late st Contact Info) Description 05/03/2025 11:00 AM EDT Office Visit [facility] MEDICINE 230 [place] [address] documented as of this encounter Visit Diagnoses Not on filedocumented in this encounter Additional Health Concerns Assessment Noted Time PHQ-9 Depression Total Score: 10 024 9:41 AM EDT documented as of this encounter Care Teams Instrument Calibrator Relationship Specialty Start Date End Date Amy Pickett MD 230 [place], [place] [phone] PCP - General Internal Medicine 04/07/23 documented as of this encounter
--- OUTSIDE RECORDS SUMMARY | 2025-03-30 07:27 | XMS_ITS | Encounter Summary ---
Author Organization [employer] Address [address] [place] [address] 7t [place] [address] Care Team Providers Care Motion Picture Projectionist Apprentice Name Role Phone Elise Glover DIE WELDER Primary Care Provider Amy Ware MD Primary Care Pro vider Reason for Visit * Reason Onset Date Comments Durable Medical Equipment 10/07/2022 Encounter Details Date Type Department Care Team (Late st Contact Info) Description 10/07/2022 Telephone [facility] MEDICINE 230 [place] [address] Elise Glover, DIE WELDER Durable Medical Equipment Social History Tobacco Use [...] If any questions please contact Anabelle at [phone] documented in this encounter Plan of Treatment Upcoming Encounters Date Type Department Care Team (Late st Contact Info) Description 05/03/2025 11:00 AM EDT Office Visit [facility] MEDICINE 230 [place] [address] documented as of this encounter Visit Diagnoses Not on filedocumented in this encounter Additional Health Concerns Assessment Noted Time PHQ-9 Depression Total Score: 24 023 10:05 AM EDT documented as of this encounter Care Teams Motion Picture Projectionist Apprentice Relationship Specialty Start Date End Date Elise Glover FNP PCP - General Family Medicine 07/09/22 04/06/23 Amy Pickett MD 230 [place] [address] PCP - General Internal Medicine 04/07/23 documented as of this encounter
--- OUTSIDE RECORDS SUMMARY | 2025-03-30 07:27 | XMS_ITS | Encounter Summary ---
Author Organization [employer] Address [address] [place] [address] 7 [place] [address] Care Team Providers Care An Employee Sponsor Or Advocate And Name Role Phone Amy Pickett MD Primary Care Pro vider Reason for Visit * Reason Onset Date Comments Med Refill 10/27/2024 Encounter Details Date Type Department Care Team ([facility] st Contact Info) Description 10/27/2024 Telephone [facility] MEDICINE 230 [place], [place] [phone] Amy Pickett MD 230 [place], [place] [phone] Med Refill Social History Tobacco Use Types [...] To be sent to: [facility]/pharmacy #1972 - [address] documented in this encounter Plan of Treatment Upcoming Encounters Date Type Department Care Team (Late st Contact Info) Description 05/03/2025 11:00 AM EDT Office Visit [facility] MEDICINE 230 [place] [address] documented as of this encounter Visit Diagnoses Not on filedocumented in this encounter Additional Health Concerns Assessment Noted Time PHQ-9 Depression Total Score: 10 024 9:41 AM EDT documented as of this encounter Care Teams An Employee Sponsor Or Advocate And Relationship Specialty Start Date End Date Amy Pickett MD 230 [place] [address] PCP - General Internal Medicine 04/07/23 documented as of this encounter
--- OUTSIDE RECORDS SUMMARY | 2025-03-30 07:27 | XMS_ITS | Encounter Summary ---
Author Organization [employer] Address 75 [facility] 7t [place] [address] Care Team Providers Care Carboy Filler Name Role Phone Amy Pickett MD Primary Care Pro vider Encounter Details Date Type Department Care Team (Latest Contact Info) Description 03/29/2025 Travel Social History Tobacco Use Types Packs/Day [...] 11:00 AM EDT Office Visit [facility] MEDICINE [address] [place] [address] documented as of this encounter Visit Diagnoses Not on filedocumented in this encounter Additional Health Concerns Assessment Noted Time PHQ-9 Depression Total Score: 0 11/25/19 25 2:10 PM EDT documented as of this encounter Care Teams Carboy Filler Relationship Specialty Start Date End Date Amy Pickett MD [address] [place] [address] PCP - General Internal Medicine 04/07/23 documented as of this encounter
--- OUTSIDE RECORDS SUMMARY | 2025-03-30 07:27 | XMS_ITS | Encounter Summary ---
Author Organization [employer] Address 75 [facility] 7 [place] [address] Care Team Providers Care Biomass Power Plant Superintendent Name Role Phone Amy Pickett MD Primary Care Pro vider Reason for Visit * Reason Onset Date Comments Med Refill 02/11/2024 Encounter Details Date Type Department Care Team (Late st Contact Info) Description 02/11/2024 Telephone [facility] MEDICINE 230 [place], [place] [phone] Amy Pickett MD 230 [place], [place] [phone] Med Refill Social History Tobacco Use Types [...] be sent to: [facility]/pharmacy #1972 - [place], [place] - [address] [place] [address] documented in this encounter Plan of Treatment Upcoming Encounters Date Type Department Care Team (Late st Contact Info) Description 05/03/2025 11:00 AM EDT Office Visit [facility] MEDICINE 230 [place] [address] documented as of this encounter Visit Diagnoses Not on filedocumented in this encounter Additional Health Concerns Assessment Noted Time PHQ-9 Depression Total Score: 24 023 10:05 AM EDT documented as of this encounter Care Teams Biomass Power Plant Superintendent Relationship Specialty Start Date End Date Amy Pickett MD 230 [place] [address] PCP - General Internal Medicine 04/07/23 documented as of this encounter
--- OUTSIDE RECORDS SUMMARY | 2025-03-30 07:27 | XMS_ITS | Encounter Summary ---
Author Organization [employer] Address [address] [place] [address] 7 [place] [address] Care Team Providers Care Beauty School Instructor Name Role Phone Elise Glover CORONER TECHNICIAN Primary Care Provider Amy Ware MD Primary Care Pro vider Reason for Visit * Reason Onset Date Comments triage 08/22/2022 Encounter Details Date Type Department Care Team (Late st Contact Info) Description 08/22/[address] [facility] MEDICINE 230 [place], [place] [phone] Elise Glover FNP triage Social History Tobacco [...] Description 05/03/2025 11:00 AM EDT Office Visit [facility] MEDICINE 230 [place] [address] documented as of this encounter Visit Diagnoses Not on filedocumented in this encounter Care Teams Beauty School Instructor Relationship Specialty Start Date End Date Elise Glover FNP PCP - General Family Medicine 07/09/22 04/06/23 Amy Pickett MD [address] [place] [address] PCP - General Internal Medicine 04/07/23 documented as of this encounter
--- OUTSIDE RECORDS SUMMARY | 2025-03-30 07:27 | XMS_ITS | Encounter Summary ---
Author Organization [employer] Address [address] [place] [address] 7 [place] [address] Care Team Providers Care Camera Assembler Name Role Phone Amy Pickett MD Primary Care Pro vider Reason for Visit * Reason Onset Date Comments Med Refill 2024 Encounter Details Date Type Department Care Team ([facility] st Contact Info) Description 2024 Telephone [facility] MEDICINE 230 [place], [place] [phone] Amy Pickett MD 230 [place], [place] [phone] Med Refill Social History Tobacco Use Types [...] sent to: [facility]/pharmacy #1972 - [address] documented in this encounter Plan of Treatment Upcoming Encounters Date Type Department Care Team (Late st Contact Info) Description 05/03/2025 11:00 AM EDT Office Visit [facility] MEDICINE 230 [place], [place] [phone] documented as of this encounter Visit Diagnoses Not on filedocumented in this encounter Additional Health Concerns Assessment Noted Time PHQ-9 Depression Total Score: 0 11/25/19 25 2:10 PM EDT documented as of this encounter Care Teams Camera Assembler Relationship Specialty Start Date End Date Amy Pickett MD 230 [place], [place] [phone] PCP - General Internal Medicine 04/07/23 documented as of this encounter
--- OUTSIDE RECORDS SUMMARY | 2025-03-30 07:27 | XMS_ITS | Encounter Summary ---
Author Organization [employer] Address 75 [facility] 7 [place] [address] Care Team Providers Care Vat Operator Name Role Phone Amy Pickett MD Primary Care Pro vider Reason for Visit * Reason Onset Date Comments Medication Question 03/17/2025 Encounter Details Date Type Department Care Team ([facility] st Contact Info) Description 03/17/2025 Telephone [facility] MEDICINE 230 [place], [place] [phone] Amy Pickett MD 230 [place] [address] Medication Question Social History Tobacco Use Types [...] pain killer. Any questions contact pt at [phone] * Telephone Encounter - Andrew Maldonado - 03/17/2025 11:19 AM EDT Tc from Domenica, pt's PHLEBOTOMY DIRECTOR, stating pt had a surgery done but due to pt being prescribed Oxycodone they were unable to prescribe pt any pain medication. Domenica is hoping pt can be prescribed some sort of muscle relaxer or an accomodation to be prescribed medication. If any questions please contact Domenica at [phone]. documented in this encounter Plan of Treatment Upcoming Encounters Date Type Department Care Team ([facility] st Contact Info) Description 05/03/2025 11:00 AM EDT Office Visit [facility] MEDICINE [address] [place] [address] documented as of this encounter Visit Diagnoses Not on filedocumented in this encounter Additional Health Concerns Assessment Noted Time PHQ-9 Depression Total Score: 0 11/25/19 25 2:10 PM EDT documented as of this encounter Care Teams Vat Operator Relationship Specialty Start Date End Date Amy Pickett MD 230 [place] [address] PCP - General Internal Medicine 04/07/23 documented as of this encounter
--- OUTSIDE RECORDS SUMMARY | 2025-03-30 07:27 | XMS_ITS | Encounter Summary ---
Author Organization [employer] Address 75 [facility] 7t [place] [address] Care Team Providers Care Health And Safety Trainer Name Role Phone Amy Pickett MD Primary Care Pro vider Encounter Details Date Type Department Care Team ([facility] st Contact Info) Description 03/29/2025 Telephone [facility] CHC MED & PEDS [address] [place], [place] [phone] 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, RN 505 [place] [address] Social History Tobacco Use Types Packs/Day Years [...] Telephone Encounter - 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 RN - 03/29/2025 10:12 AM EDT Pt asking for a refill of Cyclobenzaprine 5mg. Stated Tizanidine 2mg was not helping at all and then stated he never actually picked it up and is not willijg to try it d/t trying it in the pat=st andit was not helpful. Pt states he has an MRI scheduled 03/31/25 and needs something to last him until then. Please advise. Fyi utox and pill count WNL at today's visit, next group visit scheduled 05/03/25. documented in this encounter Plan of Treatment Upcoming Encounters Date Type Department Care Team (Late st Contact Info) Description 05/03/2025 11:00 AM EDT Office Visit [facility] MEDICINE 230 [place] [address] documented as of this encounter Visit Diagnoses Not on filedocumented in this encounter Additional Health Concerns Assessment Noted Time PHQ-9 Depression Total Score: 0 11/25/19 2:10 PM EDT documented as of this encounter Care Teams Health And Safety Trainer Relationship Specialty Start Date End Date Amy Pickett MD [address] [place] [phone] PCP - General Internal Medicine 04/07/23 documented as of this encounter
--- OUTSIDE RECORDS SUMMARY | 2025-03-30 07:27 | XMS_ITS | Encounter Summary ---
Author Organization [employer] Address 75 [facility] 7 [place] [address] Care Team Providers Care Red Hat Engineer Name Role Phone Amy Pickett MD Primary Care Pro vider Reason for Visit * Reason Onset Date Comments Med Refill 03/24/2025 Encounter Details Date Type Department Care Team (Late st Contact Info) Description 03/24/2025 Refill [facility] MEDICINE 230 [place], [place] [phone] Amy Pickett MD 230 [place] [address] Moderate persistent asthma without complication Social History [...] encounter Miscellaneous Notes * Telephone Encounter - Kayce Hay LPN - 03/24/2025 10:13 AM EDT Last seen 8.7.25 * Telephone Encounter - Andrea Palacio - 03/24/2025 10:11 AM EDT TC from pt requesting medication refill. Medications needing refill : ipratropium-albuterol (Combivent Respimat) 20-100 MCG/ACT inhaler To be sent to: [id number] [place], [place] - [address] [place] [address] documented in this encounter Plan of Treatment Upcoming Encounters Date Type Department Care Team (Late st Contact Info) Description 05/03/2025 11:00 AM EDT Office Visit [facility] MEDICINE 230 [place] [address] documented as of this encounter Visit Diagnoses Diagnosis Moderate persistent asthma without complication documented in this encounter Additional Health Concerns Assessment Noted Time PHQ-9 Depression Total Score: 0 11/25/19 25 2:10 PM EDT documented as of this encounter Care Teams Red Hat Engineer Relationship Specialty Start Date End Date Amy Pickett MD [address] [place] [id number] PCP - General Internal Medicine 04/07/23 documented as of this encounter
--- OUTSIDE RECORDS SUMMARY | 2025-03-30 07:27 | XMS_ITS | Encounter Summary ---
Author Organization [employer] Address [address] [place] [address] 7 [place] [address] Care Team Providers Care Theatrical Performer Name Role Phone Amy Pickett MD Primary Care Pro vider Reason for Visit * Reason Onset Date Comments Med Refill 03/24/2025 Encounter Details Date Type Department Care Team (Late st Contact Info) Description 03/24/2025 Telephone [facility] MEDICINE 230 [place], [place] [phone] Amy Pickett MD 230 [place], [place] [phone] Med Refill Social History Tobacco Use Types [...] immediate release tablet To be sent to: [facility] #[id number] - [address] documented in this encounter Plan of Treatment Upcoming Encounters Date Type Department Care Team (Late st Contact Info) Description 05/03/2025 11:00 AM EDT Office Visit [facility] MEDICINE 230 [place] [address] documented as of this encounter Visit Diagnoses Not on filedocumented in this encounter Additional Health Concerns Assessment Noted Time PHQ-9 Depression Total Score: 0 11/25/19 25 2:10 PM EDT documented as of this encounter Care Teams Theatrical Performer Relationship Specialty Start Date End Date Amy Pickett MD [address] [place] [id number] PCP - General Internal Medicine 04/07/23 documented as of this encounter
--- OUTSIDE RECORDS SUMMARY | 2025-03-30 07:27 | XMS_ITS | Encounter Summary ---
Author Organization [employer] Address 75 [facility] 7t [place] [address] Care Team Providers Care Tree Fruit And Nut Farming Supervisor Name Role Phone Amy Pickett MD Primary Care Pro vider Reason for Visit * Reason Onset Date Comments Med Refill 03/24/2025 Encounter Details Date Type Department Care Team (Late st Contact Info) Description 03/24/2025 Refill [facility] CHC MED & PEDS 505 [place] [address] 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, RN 505 [place] [address] Chronic pain of both knees; Chronic low [...] Description 05/03/2025 11:00 AM EDT Office Visit [facility] MEDICINE 230 [place] [address] documented as of this encounter Visit Diagnoses Diagnosis Chronic pain of both knees Chronic low back pain, unspecified back pain laterality, unspecified whether sciatica present documented in this encounter Additional Health Concerns Assessment Noted Time PHQ-9 Depression Total Score: 0 11/25/19 25 2:10 PM EDT documented as of this encounter Care Teams Tree Fruit And Nut Farming Supervisor Relationship Specialty Start Date End Date Amy Pickett MD 230 [place] [address] PCP - General Internal Medicine 04/07/23 documented as of this encounter
--- OUTSIDE RECORDS SUMMARY | 2025-03-30 07:27 | XMS_ITS | Encounter Summary ---
Author Organization [employer] Address 75 [facility] 7 [place] [address] Care Team Providers Care Supervisor Hardboard Name Role Phone Amy Pickett MD Primary Care Pro vider Reason for Visit * Reason Onset Date Comments Nurse Triage 03/17/2025 Encounter Details Date Type Department Care Team ([facility] st Contact Info) Description 03/17/2025 Telephone [facility] MEDICINE 230 [place], [place] [phone] Amy Pickett MD 230 [place] [address] Nurse Triage Social History Tobacco Use Types [...] to Zain Lazcano to triage below at [phone]. Pt states having a procedure done to [...] Is currently on the phone with a circulation supervisor [facility]. She states that pt. 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 Pt. Luz Marina states that PCP will not give pt. Additional pain medication because pt. Is alreadyon Oxycodone. I advised that I will write this down as pt. Is currently speaking with a Underwater Roboticist. * Telephone Encounter - James Diana - 03/17/2025 4:02 PM EDT Symptom: Shoulder Pain - Not From Injury Outcome: Schedule an urgent appointment (within 1 hour) or talk to a nurse or provider soon Reason: Severe pain now The caller accepted this outcome. Contact pt at [phone] Pt was requesting for tramadol for his shoulder pain. Pt was already advised that he cannot take tramadol and Oxycodone at the same time. documented in this encounter Plan of Treatment Upcoming Encounters Date Type Department Care Team (Late st Contact Info) Description 05/03/2025 11:00 AM EDT Office Visit [facility] MEDICINE [address] [place] [address] documented as of this encounter Visit Diagnoses Not on filedocumented in this encounter Additional Health Concerns Assessment Noted Time PHQ-9 Depression Total Score: 0 11/25/19 25 2:10 PM EDT documented as of this encounter Care Teams Supervisor Hardboard Relationship Specialty Start Date End Date Amy Pickett MD [address] [place] [address] PCP - General Internal Medicine 04/07/23 documented as of this encounter
--- OUTSIDE RECORDS SUMMARY | 2025-03-30 07:27 | XMS_ITS | Encounter Summary ---
Author Organization [employer] Address 75 [facility] 7t [place] [address] Care Team Providers Care Accessioner Name Role Phone Amy Pickett MD Primary Care Pro vider Encounter Details Date Type Department Care Team (Late st Contact Info) Description 03/29/2025 Orders Only [facility] MEDICINE 230 [place], [place] [phone] Amy Pickett MD 230 [place] [address] Chronic right shoulder pain (Primary Dx) Social [...] Description 05/03/2025 11:00 AM EDT Office Visit [facility] MEDICINE 230 [place] [address] documented as of this encounter Visit Diagnoses Diagnosis Chronic right shoulder pain- Primary Pain in joint, shoulder region documented in this encounter Additional Health Concerns Assessment Noted Time PHQ-9 Depression Total Score: 0 11/25/19 25 2:10 PM EDT documented as of this encounter Care Teams Accessioner Relationship Specialty Start Date End Date Amy Pickett MD [address] [place] [address] PCP - General Internal Medicine 04/07/23 documented as of this encounter
--- OUTSIDE RECORDS SUMMARY | 2025-03-30 07:27 | XMS_ITS | Encounter Summary ---
Author Organization [employer] Address 75 [facility] 7 [place] [address] Care Team Providers Care Sand Mill Operator Name Role Phone Amy Pickett MD Primary Care Pro vider Reason for Visit * Reason Onset Date Comments Appointment Request 09/02/2023 Encounter Details Date Type Department Care Team ([facility] st Contact Info) Description 09/02/2023 Telephone [facility] MEDICINE 230 [place], [place] [phone] Amy Pickett MD 230 [place] [address] Appointment Request Social History Tobacco Use Types [...] t he electric, gas, oil or water [email or web address] threatened to shut off services in your [...] from pt requesting a transfer patient appointment. Church Secretary does not see any availability. Pt states he needs appointment as soon as possible due to controlled medication. States needs to be seen bya new provider to continue medication. Please contact pt at [phone] documented in this encounter Plan of Treatment Upcoming Encounters Date Type Department Care Team (Late st Contact Info) Description 05/03/2025 11:00 AM EDT Office Visit [facility] MEDICINE [address] [place] [address] documented as of this encounter Visit Diagnoses Not on filedocumented in this encounter Additional Health Concerns Assessment Noted Time PHQ-9 Depression Total Score: 24 023 10:05 AM EDT documented as of this encounter Care Teams Sand Mill Operator Relationship Specialty Start Date End Date Amy Pickett MD [address] [place] [address] PCP - General Internal Medicine 04/07/23 documented as of this encounter
--- OUTSIDE RECORDS SUMMARY | 2025-03-30 07:27 | XMS_ITS | Encounter Summary ---
Author Organization [employer] Address 75 [facility] 7 [place] [address] Care Team Providers Care Inverter And Clipper Name Role Phone Amy Pickett MD Primary Care Pro vider Reason for Visit * Reason Onset Date Comments FYI 03/16/2025 Encounter Details Date Type Department Care Team ([facility] st Contact Info) Description 03/16/2025 Telephone [facility] MEDICINE 230 [place], [place] [phone] Amy Pickett MD 230 [place] [address] FYI Social History Tobacco Use Types Packs/Day [...] Miscellaneous Notes * Telephone Encounter - Brooke eRid RN - 03/16/2025 3:26 PM EDT Telephone call returned to Domenica BLOOM on [employer] who reports pt currently having surgery at [facility] through [facility] to get SNS device removed so that he can have MRI done as he couldn't have MRI with the implant and he has excruciating 10/10 shoulder pain and can't lift his arm. Advised to call [facility] centralized scheduling to r/s MRI now that implant is being removed. Texted her their phone number via [employer] text at her request. She reports that [...] group appt be changed to a normal PUBLIC HEALTH ENGINEER appt. Seeing as though he is having [...] anything out of it. Would rather do PUBLIC HEALTH ENGINEER visits. Informed I would send message regarding this. * Telephone Encounter - Jesusita Castellanos - 03/16/2025 3:01 PM EDT Tc from [facility] stating specialist pritesh to give him an emergency surgery to get the implant out. So now pt is able to do MRI. documented in this encounter Plan of Treatment Upcoming Encounters Date Type Department Care Team (Late st Contact Info) Description 05/03/2025 11:00 AM EDT Office Visit [facility] MEDICINE 230 [place] [address] documented as of this encounter Visit Diagnoses Not on filedocumented in this encounter Additional Health Concerns Assessment Noted Time PHQ-9 Depression Total Score: 0 11/25/19 25 2:10 PM EDT documented as of this encounter Care Teams Inverter And Clipper Relationship Specialty Start Date End Date Amy Pickett MD 230 [place] [address] PCP - General Internal Medicine 04/07/23 documented as of this encounter
--- OUTSIDE RECORDS SUMMARY | 2025-03-30 07:27 | XMS_ITS | Encounter Summary ---
Author Organization [employer] Address [address] [place] [address] 7 [place] [address] Care Team Providers Care Auto Leasing Manager Name Role Phone Amy Pickett MD Primary Care Pro vider Reason for Visit * Reason Onset Date Comments Med Refill 08/06/2024 Encounter Details Date Type Department Care Team ([facility] st Contact Info) Description 08/06/2024 Telephone [facility] MEDICINE 230 [place], [place] [phone] Amy Pickett MD 230 [place], [place] [phone] Med Refill Social History Tobacco Use Types [...] 0.083% nebulizer solution To be sent to: [facility]/pharmacy #[id number] - [address] documented in this encounter Plan of Treatment Upcoming Encounters Date Type Department Care Team (Late st Contact Info) Description 05/03/2025 11:00 AM EDT Office Visit [address] [phone] documented as of this encounter Visit Diagnoses Not on filedocumented in this encounter Additional Health Concerns Assessment Noted Time PHQ-9 Depression Total Score: 10 024 9:41 AM EDT documented as of this encounter Care Teams Auto Leasing Manager Relationship Specialty Start Date End Date Amy Pickett MD [address] [place] [address] PCP - General Internal Medicine 04/07/23 documented as of this encounter
--- OUTSIDE RECORDS SUMMARY | 2025-03-30 07:27 | XMS_ITS | Encounter Summary ---
Author Organization [employer] Address [address] [place] [address] 7t [place] [address] Care Team Providers Care Seismograph Shooter Name Role Phone Elise Glover ASTRONAUT MISSION SPECIALIST Primary Care Provider Amy Ware MD Primary Care Pro vider Encounter Details Date Type Department Care Team (Late st Contact Info) Description 01/14/2023 Orders Only [facility] MEDICINE [address] [place] [address] [phone] Elise Glover FNP Social History Tobacco Use [...] [facility] MED[facility]INE 230 [place], [place] [phone] documented as of this encounter Visit Diagnoses Not on filedocumented in this encounter Additional Health Concerns Assessment Noted Time PHQ-9 Depression Total Score: 24 03/28/2 023 10:05 AM EDT documented as of this encounter Care Teams Seismograph Shooter Relationship Specialty Start Date End Date Elise Glover FNP PCP - General Family Medicine 07/09/22 04/06/23 Amy Pickett MD [address] [place] [address] PCP - General Internal Medicine 04/07/23 documented as of this encounter
--- OUTSIDE RECORDS SUMMARY | 2025-03-30 07:27 | XMS_ITS | Encounter Summary ---
Author Organization [employer] Address 75 [facility] 7t [place] [address] Care Team Providers Care Application Security Architect Name Role Phone Amy Pickett MD Primary Care Pro vider Encounter Details Date Type Department Care Team ([facility] st Contact Info) Description 03/29/2025 Telephone [facility] CHC MED & PEDS 505 [place], [place] [phone] 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, RN [address] [place] [address] Social History Tobacco Use Types Packs/Day Years [...] Encounter - 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 RN - 03/29/2025 2:42 PM EDT TC to pt regarding message below. Spoke with pt's PASSENGER CAR CLEANING SUPERVISOR who verbalized understanding and stated she will relay message to pt. documented in this encounter Plan of Treatment Upcoming Encounters Date Type Department Care Team (Late st Contact Info) Description 05/03/2025 11:00 AM EDT Office Visit [facility] MEDICINE 230 [place] [address] documented as of this encounter Visit Diagnoses Not on filedocumented in this encounter Additional Health Concerns Assessment Noted Time PHQ-9 Depression Total Score: 0 11/25/19 25 2:10 PM EDT documented as of this encounter Care Teams Application Security Architect Relationship Specialty Start Date End Date Amy Pickett MD 230 [place] [address] PCP - General Internal Medicine 04/07/23 documented as of this encounter
--- NOTE | 2025-03-30 08:01 | MHC.OFFVIS ---
Vital Signs 03/30/25 08:02 Height 5 ft 4 in Weight 175 lb BMI 30.0 BP 180/100 H Blood Pressure Location Lt brachial Position Sitting Respiration 16 Pulse 85 Pulse Oximetry (%) 97 Intake Visit Reasons: Re-Establish Care / Migraine Battery Container Finishing Hand Required: No Allergies cat dander (CATS) Allergy (Unknown, Verified 03/30/25 08:01) UNKNOWN dog dander (DOGS) Allergy (Unknown, Verified 03/30/25 08:01) UNKNOWN pollen extracts (POLLEN) Allergy (Unknown, Verified 03/30/25 08:01) UNKNOWN tree and shrub pollen Allergy (Verified 03/30/25 08:01) sneeze ibuprofen Adverse Reaction (Verified 03/30/25 08:01) causes stomach to bleed HPI Comments Details: Zain is a 59-year-old male patient with a past medical history of migraine, depression, hypertension, osteoarthritis, asthma, COPD, STEPHON on CPAP who was seeing me at the [facility] neurology clinic for chronic headache. He is here today to reestablish care at [facility] with me for treatment of his headaches. He has a longstanding history of STEPHON which has likely contributed to his existing migraine history. He also has a history of medication overuse headaches of sumatriptan. He does have an occipital neuralgia component to his headaches and he has responded well to occipital nerve blocks and trigger point injections. His acute therapy has been slightly more challenging with some resistance to GEPANTs in the past. Triptans are not favorable due to his history of coronary artery disease. At our most recent appointment at [facility], he reported a fall and related shoulder pain. The patient reports persistent right shoulder pain, exacerbated by movement and associated with numbness in the right arm. The patient has a history of cervical disc herniation with mild central stenosis and bilateral foraminal stenosis at C6-C7, which was identified in an MRI conducted in 2023. The patient did not follow up with neurosurgery as recommended after the MRI, and symptoms have progressed to include pain radiating to the left arm. The patient also reports discontinuation of CPAP use due to an incident of vomiting through the mask. The patient expresses concern about the risk of aspiration and is considering alternative mask options. His paramedic supervisor manages his Pap therapy. [facility] Medical History (Updated 03/30/25 @ 08:35 by Rosangela Cole CNP) Ganglion cyst Chest pain Nicotine dependence, cigarettes, uncomplicated Nausea and vomiting Dyspnea Photophobia Headache Syncope Dysphagia Seizure Lipoma of back STEPHON (obstructive sleep apnea) COPD (chronic obstructive pulmonary disease) Post herpetic neuralgia Multiple lipomas Osteoarthritis Gout History of peptic ulcer disease Hx of irritable bowel syndrome Chronic back pain Hx of insomnia History of panic attacks History of anxiety History of depression Asthma High cholesterol Hypertension Urinary retention Enlarged prostate Arthritis Slow urinary stream Marijuana use Alcohol abuse H/O ulcer disease Left flank pain Trochanteric bursitis, left hip Epidermal cyst Abdominal wall bulge Esophageal dysphagia Esophageal spasm Short frenulum of penis Balanitis Elevated blood pressure reading in office with diagnosis of hypertension Thalamic pain syndrome Abnormal loss of weight Painful orthopaedic hardware Pain in unspecified toe(s) Incisional pain Surgical History S/P placement of nerve stimulator H/O neck surgery Hx of arthroscopy of left knee H/O breast surgery S/P excision of lipoma History of bunionectomy History of cystoscopy History of colonoscopy History of esophagogastroduodenoscopy (EGD) Family History Family/Other Cancer Diabetes AIDS Brother Diabetes Myocardial infarction Father Enlarged prostate Mother Diabetes Asthma Social History Are you a primary patient care representative to a significant other at home: No Do you presently have visiting nurse or other home services: No Alcohol intake: never Patient Tobacco Use Status: Current everyday Tobacco user Cigarettes Per Day: 4 Years Smoked: (onset 16yo, 1ppd x 42yrs, now 1/2ppd - 40pyh) Substance Use Type: Marijuana service: No Current occupational status: unemployed Review of Systems Const All systems reviewed & are unremarkable except as noted in HPI and below Physical Exam Vital Signs: Last Vital Signs Pulse 85 03/30/25 08:02 Resp 16 03/30/25 08:02 BP 180/100 H 03/30/25 08:02 Pulse Ox 97 03/30/25 08:02 BMI result Body Mass Index 30.0 Const General: cooperative, healthy appearing, comfortable and no acute distress Nutritional Appearance: well nourished Orientation/consciousness: patient oriented x3 Limitations: no limitations HEENT Head: Yes normal to inspection and Yes normocephalic Eyes General: appearance normal, both eyes and all related structures Visual Britton: normal visual britton by confrontation Alignment and Position: alignment normal Periorbital: periorbital findings normal Eyelids: Yes eyelids normal Conjunctivae: conjunctivae normal Sclerae: sclerae normal Back/Spine/Pelvis Other: Right upper back and right upper trapezius tenderness with palpation Cervical Spine: pain with cervical ROM and Cervical spine tenderness Neuro General: patient oriented x3 Cranial nerves: Yes CN's II-XII intact bilaterally and Yes Facial sensation intact/muscles of mastication intact Cognition (Neuro): normal cognition Gait exam (Neuro): Antalgic gait present and Other gait observations present (Poor balance) Motor exam (neuro): no tremor noted and Abnormal motor strength present right upper extremity other (level of the wrist. Bicepts and shoulder unable to obtain r/t pain) 2 / 5 Sensory Exam: double simultaneous stimulation for sensation normal Deep tendon reflexes (DTR's): Right triceps reflex intensity grade: 2+, Left triceps reflex intensity grade: 2+, Rt Biceps (C5, C6): 2+, Left biceps reflex intensity grade: 2+, Right brachioradialis reflex intensity grade: 2+, Left brachioradialis reflex intensity grade: 2+, Right patellar reflex intensity grade: 2+, Left patellar reflex intensity grade: 3+, Right ankle reflex intensity grade: 2+ and Left ankle reflex intensity grade: 2+ Romberg Test: Positive Pupils: Normal pupillary reactivity/response: bilateral Psych Appearance: grossly normal Mental Status: mental status grossly normal Speech and movement: Normal speech and movement present and Clear speech present Affect: normal affect Attitude: cooperative Thought process: Normal thought process present Thought content: Normal thought content present Insight: Good insight present (Psych) Judgement: Good judgement present (Psych) Assessment & Plan Assessment & Plan (1) Chronic daily headache: Code(s): R51.9 - Headache, unspecified Category: Medical Plan: . (2) Occipital neuralgia: Code(s): M54.81 - Occipital neuralgia Category: Medical Plan: . (3) Migraine without aura and without status migrainosus, not intractable: Code(s): G43.009 - Migraine without aura, not intractable, without status migrainosus Category: Medical Plan: . Elda Pittman is a 59-year-old male patient with a past medical history of migraine, depression, hypertension, osteoarthritis, asthma, COPD, STEPHON on CPAP who was seeing me at the [facility] neurology clinic for chronic headache. Headaches are likely multifactorial including a primary migraine history, polypharmacy, poorly treated STEPHON, and cervical spine disc disease. To avoid adding oral medications, I think reasonably, we can continue with his trigger point and occipital nerve blocks which have been helpful in the past. For acute therapy, he has been using Nurtec with some improvement. I would continue to avoid triptan due to history of cardiovascular disease. His primary concern today is more so in regards to his right shoulder pain which resulted from a fall though has pre-existing cervical spine disc disease may be playing a role. -initiate PA for occipital nerve block and trigger point injections which have been helpful in the past -continue Nurtec 75 mg as needed for acute therapy for migraine -repeat cervical spine MRI to rule out cervical radiculopathy -we will send a prescription for topical diclofenac for adjunctive pain management -patient will be booked for next week for his injections 60 minutes spent with patient including review of prior records, in-depth history taking, physical exam, in-depth discussion of numerous concerns, and review of plan moving forward. Orders: Orders MR cervical spine wo con Today M50.90 - Cervical disc disorder, unspecified, unspecified cervical region, M79.2 - Neuralgia and neuritis, unspecified Coding Level of Care Code New Pt Level 5 (40252) Diagnoses Chronic daily headache R51.9 Occipital neuralgia M54.81 Migraine without aura and without status migrainosus, not intractable G43.009
[2025-03-30 08:02] VITALS: BP 180/100; PULSE 85; RESP 16; O2SAT 97
== END 2025-03-30 08:24 | disposition home or self-care (01) ==
LOC: HO.HSM 07:23
PROVIDERS: PCP Student in an Organized Health Care Education/Training Program; Visit Provider Nurse Practitioner
DX: R51.9 Headache, unspecified (principal); M54.81 Occipital neuralgia; G43.009 Migraine without aura, not intractable, without status migrainosus
CPT/HCPCS: 99205

== ENCOUNTER → 2025-03-30 07:22 | Outpatient (BNVA) | payer OTHER, SELFPAY | PROVIDERS: PCP Student in an Organized Health Care Education/Training Program; Visit Provider Nurse Practitioner | DX: R51.9 Headache, unspecified (principal); G43.009 Migraine without aura, not intractable, without status migrainosus; M54.81 Occipital neuralgia | CPT/HCPCS: 99202 ==

== ENCOUNTER 2025-03-31 08:38 | Outpatient (REF) | payer OTHER, SELFPAY ==
--- OUTSIDE RECORDS SUMMARY | 2025-03-29 09:45 | XMS_ITS | Encounter Summary ---
Author Organization [employer] Address [address] [facility] [address] 7t [place] [address] Care Team Providers Care Wine Maker Name Role Phone Amy Pickett MD Primary Care Pro vider Reason for Visit * Reason Comments ATTORNEY Encounter Details Date Type Department Care Team (Latest Contact Info) Description 03/29/2025 9:45 AM EDT Clinical Support [facility] MEDICINE 230 [place] [address] 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 RN [address] [place] [address] Chronic right shoulder pain (Primary Dx) Social [...] Group Topic: Behavioral Health Presenter: Bridgette Shearer, [facility] Team DUE FOR ATTORNEY, has been experiencing increase in pain related to recent urology procedure where device was removed in order to complete MRI. -used to see ALEXA at [facility] # -per pt seen in 06/2024 states was seen but not recommended surgery --I called today [facility] NS today to reeval surgery option [...] as prescribed. Specialists: Saw RUBEN Padilla at [facility] 11/17/23 for lower back radiculopathy Scheduled to see NSG Dr. Prieto at [facility] to discuss C spine fracture seen at [facility] 10/2023 CT/CT cervical spine wo IV con [...] this month -used to see NS at [facility] # [phone] -per pt seen in 06/2024 states was [...] Oxycodone 15mg IR q 6 hours Last ATTORNEY agreement: 09/28/24 Tier: 1 (monthly ATTORNEY visits) Additional considerations: Alprazolam 1mg for anxiety [...] root compression . Seen by Neurosurgery at [facility], note pending Referred to Pain Management November 2024 Current Assessment & Plan -Good engagement and participation with Group Medical Visit model -Encouraged multifactorial approach to pain control including pharm and non- pharm modalities -Pill count as expected, Utox pos cocaine. Confirmatory testing sent. See director of audiology. Relevant Orders Drug Monitoring, Cocaine Metabolite, Quantitative, [...] Description 05/03/2025 11:00 AM EDT Office Visit [facility] MEDICINE [address] [place] [address] documented as of this encounter Procedures Procedure [...] - 03/29/2025 10:07 AM EDT .UTOX cup Lot#[id number] Exp. 04/12/26 Internal Pass Control Amy Berry MD POINT OF CARE SOHA T ENTER/EDIT ORDERABLES Final Result documented in this encounter Visit Diagnoses Diagnosis Chronic right shoulder pain- Primary Pain in joint, shoulder region documented in this encounter Additional Health Concerns Assessment Noted Time PHQ-9 Depression Total Score: 0 11/25/19 25 2:10 PM EDT documented as of this encounter Care Teams Wine Maker Relationship Specialty Start Date End Date Amy Pickett MD [address] [place] [address] PCP - General Internal Medicine 04/07/23 documented as of this encounter
--- NOTE | ~2025-03-31 | MR_ITS ---
CLINICAL HISTORY: Pain in the right shoulder MR right shoulder without gadolinium Comparison: CR/SR - XR SHOULDER 2 OR MORE VIEWS RIGHT - 01/27/25 12:06 EDT Findings: No acute fractures. No pathologic bone lesions. Moderate acromioclavicular osteoarthritis. Small amount of fluid in the subacromial subdeltoid bursa. Complete tear of the supraspinatus tendon with 10 mm retraction. Partial tear of the subscapularis tendon near its insertion on the lesser tubercle. Infraspinatus and teres minor tendons are intact. Tenosynovitis of the biceps tendon without tear. Glenoid labrum is intact. IMPRESSION: 1. Complete supraspinatus tendon tear with 10 mm retraction. 2. Partial subscapularis tendon tear near its insertion. 3. Biceps tendon tenosynovitis without tear. This document has been electronically signed by: Yasmine Zhao MD on 04/01/2025 18:30:19
--- NOTE | ~2025-03-31 | MR_ITS ---
CLINICAL HISTORY: M79.2 - Neuralgia and neuritis, unspecified MR cervical spine without gadolinium Comparison: None provided Findings: Mild expected postsurgical straightening of the cervical lordosis. Fusion hardware at C5-C6 appears intact by MR. No acute fracture or acute malalignment. Prevertebral and paravertebral soft tissues are unremarkable. Mild multilevel disc desiccation and disc space narrowing. Visualized portions of the posterior fossa are unremarkable. Individual levels: C2-C3: Small left eccentric disc protrusion. No significant central canal stenosis or neural foraminal narrowing. C3-C4: No significant central canal stenosis or neural foraminal narrowing. C4-C5: Small posterior disc protrusion with mild bilateral neural foraminal narrowing. No central canal stenosis. C5-C6: Small posterior disc protrusion. Mild [id number]-[id number]-right neural foraminal narrowing. No significant central canal stenosis. C6-C7: [id number] posterior disc protrusion. Moderate bilateral neural foraminal narrowing. Minimal central canal narrowing. C7-T1: Small left eccentric disc protrusion with mild left neural foraminal narrowing. Impression: Postsurgical and degenerative changes as detailed. This document has been electronically signed by: Gerson Puckett MD on 04/01/2025 11:36:17
--- OUTSIDE RECORDS SUMMARY | 2025-03-31 09:10 | XMS_ITS | Encounter Summary ---
Author Organization [email or web address] Address [address] [facility] 7 [place] [address] Care Team Providers Care Sledger Name Role Phone Amy Pickett MD Primary Care Pro vider Reason for Visit * Reason Comments Med Refill Encounter Details Date Type Department Care Team ([facility] st Contact Info) Description 06/17/2024 Refill [facility] [address] [place], [place] [phone] Amy Pickett MD [address] [place] [address] Social History Tobacco Use Types Packs/Day Years [...] Description 05/03/2025 11:00 AM EDT Office Visit [facility] [address] [place] [address] documented as of this encounter Visit Diagnoses Not on filedocumented in this encounter Additional Health Concerns Assessment Noted Time PHQ-9 Depression Total Score: 10 024 9:41 AM EDT documented as of this encounter Care Teams Sledger Relationship Specialty Start Date End Date Amy Pickett MD [address] [place] [address] PCP - General Internal Medicine 04/07/23 documented as of this encounter
--- OUTSIDE RECORDS SUMMARY | 2025-03-31 09:10 | XMS_ITS | Encounter Summary ---
Author Organization [employer] Address [address] [facility] 7 [place] [address] Care Team Providers Care Vessel Operator Name Role Phone Amy Pickett MD Primary Care Pro vider Reason for Visit * Reason Onset Date Comments Nurse Triage 03/17/2025 Encounter Details Date Type Department Care Team ([facility] st Contact Info) Description 03/17/2025 Telephone [facility] [address] [place], [place] [phone] Amy Pickett MD [address] [place] [address] Nurse Triage Social History Tobacco Use Types [...] to Zain Lazcano to triage below at [phone]. Pt states having a procedure done to [...] Is currently on the phone with a caddy/caddie supervisor [facility]. She states that pt. 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 Pt. Luz Marina states that PCP will not give pt. Additional pain medication because pt. Is alreadyon Oxycodone. I advised that I will write this down as pt. Is currently speaking with a Jewelry Store Manager. * Telephone Encounter - James Diana - 03/17/2025 4:02 PM EDT Symptom: Shoulder Pain - Not From Injury Outcome: Schedule an urgent appointment (within 1 hour) or talk to a nurse or provider soon Reason: Severe pain now The caller accepted this outcome. Contact pt at [phone] Pt was requesting for tramadol for his shoulder pain. Pt was already advised that he cannot take tramadol and Oxycodone at the same time. documented in this encounter Plan of Treatment Upcoming Encounters Date Type Department Care Team (Late st Contact Info) Description 05/03/2025 11:00 AM EDT Office Visit [facility] [address] [place] [address] documented as of this encounter Visit Diagnoses Not on filedocumented in this encounter Additional Health Concerns Assessment Noted Time PHQ-9 Depression Total Score: 0 11/25/19 25 2:10 PM EDT documented as of this encounter Care Teams Vessel Operator Relationship Specialty Start Date End Date Amy Pickett MD [address] [place] [id number] PCP - General Internal Medicine 04/07/23 documented as of this encounter
--- OUTSIDE RECORDS SUMMARY | 2025-03-31 09:10 | XMS_ITS | Encounter Summary ---
Author Organization [employer] Address [address] [facility] 7t [place] [address] Care Team Providers Care Parquetry Layer Name Role Phone Amy Pickett MD Primary Care Pro vider Encounter Details Date Type Department Care Team ([facility] st Contact Info) Description 09/01/2024 Telephone [facility] [address] [place], [place] [phone] Amy Pickett MD [address] [place], [place] [phone] Social History Tobacco Use Types Packs/Day Years [...] Description 05/03/2025 11:00 AM EDT Office Visit [facility] [address] [place] [address] documented as of this encounter Visit Diagnoses Not on filedocumented in this encounter Additional Health Concerns Assessment Noted Time PHQ-9 Depression Total Score: 10 024 9:41 AM EDT documented as of this encounter Care Teams Parquetry Layer Relationship Specialty Start Date End Date Amy Pickett MD [address] [place] [id number] PCP - General Internal Medicine 04/07/23 documented as of this encounter
--- OUTSIDE RECORDS SUMMARY | 2025-03-31 09:10 | XMS_ITS | Encounter Summary ---
Author Organization [employer] Address [address] [facility] 7t [place] [address] Care Team Providers Care Construction Crew Member Name Role Phone Elise Glover PROFESSOR OF ART Primary Care Provider Amy Ware MD Primary Care Pro vider Reason for Visit * Reason Comments Med Change Request Encounter Details Date Type Department Care Team (Late st Contact Info) Description 03/03/2023 Refill [facility] [address] [place] [phone] Elise Glover FNP Essential hypertension Social History [...] Description 05/03/2025 11:00 AM EDT Office Visit [facility] [address] [place] [address] documented as of this encounter Visit Diagnoses Diagnosis Essential hypertension Unspecified essential hypertension documented in this encounter Additional Health Concerns Assessment Noted Time PHQ-9 Depression Total Score: 24 10/01/ 023 10:05 AM EDT documented as of this encounter Care Teams Construction Crew Member Relationship Specialty Start Date End Date Elise Glover FNP PCP - General Family Medicine 07/09/22 04/06/23 Amy Pickett MD [address] [place] [address] PCP - General Internal Medicine 04/07/23 documented as of this encounter
--- OUTSIDE RECORDS SUMMARY | 2025-03-31 09:10 | XMS_ITS | Encounter Summary ---
Author Organization [employer] Address [address] [facility] 7t [place] [address] Care Team Providers Care Functional Analyst Name Role Phone Amy Pickett MD Primary Care Pro vider Encounter Details Date Type Department Care Team (Late st Contact Info) Description 03/29/2025 Orders Only [facility] [address] [place], [place] [phone] Amy Pickett MD [address] [place] [address] Chronic right shoulder pain (Primary Dx) Social [...] [facility] [address] [place] [address] documented as of this encounter Visit Diagnoses Diagnosis Chronic right shoulder pain- Primary Pain in joint, shoulder region documented in this encounter Additional Health Concerns Assessment Noted Time PHQ-9 Depression Total Score: 0 11/25/19 25 2:10 PM EDT documented as of this encounter Care Teams Functional Analyst Relationship Specialty Start Date End Date Amy Pickett MD [address] [place] [phone] PCP - General Internal Medicine 04/07/23 documented as of this encounter
--- OUTSIDE RECORDS SUMMARY | 2025-03-31 09:10 | XMS_ITS | Encounter Summary ---
Author Organization [employer] Address [address] [facility] 7t [place] [address] Care Team Providers Care Director Talent Management Name Role Phone Amy Pickett MD Primary Care Pro vider Encounter Details Date Type Department Care Team ([facility] st Contact Info) Description 03/29/2025 Telephone [facility] [address] [place], [place] [phone] 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, RN [address] [place] [address] Social History Tobacco Use Types Packs/Day Years [...] Description 05/03/2025 11:00 AM EDT Office Visit [facility] [address] [place] [address] documented as of this encounter Visit Diagnoses Not on filedocumented in this encounter Additional Health Concerns Assessment Noted Time PHQ-9 Depression Total Score: 0 11/25/19 2:10 PM EDT documented as of this encounter Care Teams Director Talent Management Relationship Specialty Start Date End Date Amy Pickett MD [address] [place] [phone] PCP - General Internal Medicine 04/07/23 documented as of this encounter
--- OUTSIDE RECORDS SUMMARY | 2025-03-31 09:10 | XMS_ITS | Encounter Summary ---
Author Organization [employer] Address [address] [place] [address] 7 [place] [address] Care Team Providers Care Senior Javascript Engineer Name Role Phone Amy Pickett MD Primary Care Pro vider Reason for Visit * Reason Onset Date Comments Med Refill 10/27/2024 Encounter Details Date Type Department Care Team ([facility] st Contact Info) Description 10/27/2024 Telephone [facility] [address] [place], [place] [phone] Amy Pickett MD [address] [place], [place] [phone] Med Refill Social History Tobacco Use Types [...] immediate release tablet To be sent to: [facility]/pharmacy #[id number] - [address] documented in this encounter Plan of Treatment Upcoming Encounters Date Type Department Care Team (Late st Contact Info) Description 05/03/2025 11:00 AM EDT Office Visit [facility] [address] [place] [address] documented as of this encounter Visit Diagnoses Not on filedocumented in this encounter Additional Health Concerns Assessment Noted Time PHQ-9 Depression Total Score: 10 024 9:41 AM EDT documented as of this encounter Care Teams Senior Javascript Engineer Relationship Specialty Start Date End Date Amy Pickett MD [address] [place] [address] PCP - General Internal Medicine 04/07/23 documented as of this encounter
--- OUTSIDE RECORDS SUMMARY | 2025-03-31 09:10 | XMS_ITS | Encounter Summary ---
Author Organization [employer] Address [address] [facility] 7t [place] [address] Care Team Providers Care Apple Thinner Name Role Phone Amy Pickett MD Primary Care Pro vider Encounter Details Date Type Department Care Team ([facility] st Contact Info) Description 09/01/2024 Telephone [facility] [address] [place], [place] [phone] Amy Pickett MD [address] [place], [place] [phone] Social History Tobacco Use Types Packs/Day Years [...] Office Visit [facility] [address] [place] [address] documented as of this encounter Visit Diagnoses Not on filedocumented in this encounter Additional Health Concerns Assessment Noted Time PHQ-9 Depression Total Score: 10 024 9:41 AM EDT documented as of this encounter Care Teams Apple Thinner Relationship Specialty Start Date End Date Amy Pickett MD [address] [place] [id number] PCP - General Internal Medicine 04/07/23 documented as of this encounter
--- OUTSIDE RECORDS SUMMARY | 2025-03-31 09:10 | XMS_ITS | Encounter Summary ---
Author Organization [employer] Address [address] [facility] 7 [place] [address] Care Team Providers Care Dimethylaniline Sulfator Operator Name Role Phone Amy Pickett MD Primary Care Pro vider Reason for Visit * Reason Onset Date Comments Results 10/01/2024 Encounter Details Date Type Department Care Team ([facility] st Contact Info) Description 10/01/[address] [facility] [address] [place], [place] [phone] Amy Pickett MD [address] [place] [address] Results Social History Tobacco Use Types Packs/Day [...] Blood Test Date when done: 09/29/24 Facility: [facility] Contact pt at [phone] documented in this encounter Plan of Treatment Upcoming Encounters Date Type Department Care Team (Late st Contact Info) Description 05/03/2025 11:00 AM EDT Office Visit [facility] [address] [place] [address] documented as of this encounter Visit Diagnoses Not on filedocumented in this encounter Additional Health Concerns Assessment Noted Time PHQ-9 Depression Total Score: 10 024 9:41 AM EDT documented as of this encounter Care Teams Dimethylaniline Sulfator Operator Relationship Specialty Start Date End Date Amy Pickett MD [address] [place], [place] [phone] PCP - General Internal Medicine 04/07/23 documented as of this encounter
--- OUTSIDE RECORDS SUMMARY | 2025-03-31 09:10 | XMS_ITS | Encounter Summary ---
Author Organization [employer] Address [address] [facility] 7 [place] [address] Care Team Providers Care Leather Patcher Name Role Phone Amy Pickett MD Primary Care Pro vider Reason for Visit * Reason Onset Date Comments Appointment Request 09/02/2023 Encounter Details Date Type Department Care Team ([facility] st Contact Info) Description 09/02/2023 Telephone [facility] [address] [place], [place] [phone] Amy Pickett MD [address] [place] [address] Appointment Request Social History Tobacco Use Types [...] t he electric, gas, oil or water [employer] threatened to shut off services in your [...] from pt requesting a transfer patient appointment. Coat Room Attendant does not see any availability. Pt states he needs appointment as soon as possible due to controlled medication. States needs to be seen bya new provider to continue medication. Please contact pt at [phone] documented in this encounter Plan of Treatment Upcoming Encounters Date Type Department Care Team (Late st Contact Info) Description 05/03/2025 11:00 AM EDT Office Visit [facility] [address] [place] [phone] documented as of this encounter Visit Diagnoses Not on filedocumented in this encounter Additional Health Concerns Assessment Noted Time PHQ-9 Depression Total Score: 24 023 10:05 AM EDT documented as of this encounter Care Teams Leather Patcher Relationship Specialty Start Date End Date Amy Pickett MD [address] [place] [phone] PCP - General Internal Medicine 04/07/23 documented as of this encounter
--- OUTSIDE RECORDS SUMMARY | 2025-03-31 09:10 | XMS_ITS | Encounter Summary ---
Author Organization [employer] Address [address] [place] [address] 7 [place] [address] Care Team Providers Care Autopsy Assistant Name Role Phone Amy Pickett MD Primary Care Pro vider Reason for Visit * Reason Onset Date Comments Appointment Request 10/05/2024 Encounter Details Date Type Department Care Team ([facility] st Contact Info) Description 10/05/2024 Telephone [facility] [address] [place], [place] [phone] Amy Pickett MD [address] [place] [address] Appointment Request Social History Tobacco Use Types [...] able to make it. Contact Isa at [phone] documented in this encounter Plan of Treatment Upcoming Encounters Date Type Department Care Team (Late st Contact Info) Description 05/03/2025 11:00 AM EDT Office Visit [facility] [address] [place] [address] documented as of this encounter Visit Diagnoses Not on filedocumented in this encounter Additional Health Concerns Assessment Noted Time PHQ-9 Depression Total Score: 10 024 9:41 AM EDT documented as of this encounter Care Teams Autopsy Assistant Relationship Specialty Start Date End Date Amy Pickett MD [address] [place] [address] PCP - General Internal Medicine 04/07/23 documented as of this encounter
--- OUTSIDE RECORDS SUMMARY | 2025-03-31 09:10 | XMS_ITS | Encounter Summary ---
Author Organization [employer] Address [address] [place] [address] 7 [place] [address] Care Team Providers Care Math Specialist Name Role Phone Amy Pickett MD Primary Care Pro vider Reason for Visit * Reason Onset Date Comments Med Refill 05/13/2024 Encounter Details Date Type Department Care Team ([facility] st Contact Info) Description 05/13/2024 Telephone [facility] MEDICINE [address] [place], [place] [phone] Amy Pickett MD [address] [place], [place] [phone] Med Refill Social History Tobacco Use Types [...] release tablet To be sent to: [facility]/pharmacy #[id number] - [address] documented in this encounter Plan of Treatment Upcoming Encounters Date Type Department Care Team (Late st Contact Info) Description 05/03/2025 11:00 AM EDT Office Visit [facility] MEDICINE [address] [place], [place] [phone] documented as of this encounter Visit Diagnoses Not on filedocumented in this encounter Additional Health Concerns Assessment Noted Time PHQ-9 Depression Total Score: 10 024 9:41 AM EDT documented as of this encounter Care Teams Math Specialist Relationship Specialty Start Date End Date Amy Pickett MD [address] [place], [place] [phone] PCP - General Internal Medicine 04/07/23 documented as of this encounter
--- OUTSIDE RECORDS SUMMARY | 2025-03-31 09:10 | XMS_ITS | Encounter Summary ---
Author Organization [employer] Address [address] [facility] 7 [place] [address] Care Team Providers Care Clay Burner Name Role Phone Amy Pickett MD Primary Care Pro vider Reason for Visit * Reason Onset Date Comments Med Refill 02/11/2024 Encounter Details Date Type Department Care Team (Late st Contact Info) Description 02/11/2024 Telephone [facility] MEDICINE [address] [place], [place] [phone] Amy Pickett MD [address] [place], [place] [phone] Med Refill Social History Tobacco Use Types [...] to: [facility]/pharmacy #[id number] - [place], [place] - [address] [place] [address] documented in this encounter Plan of Treatment Upcoming Encounters Date Type Department Care Team (Late st Contact Info) Description 05/03/2025 11:00 AM EDT Office Visit [facility] MEDICINE [address] [place] [address] documented as of this encounter Visit Diagnoses Not on filedocumented in this encounter Additional Health Concerns Assessment Noted Time PHQ-9 Depression Total Score: 24 023 10:05 AM EDT documented as of this encounter Care Teams Clay Burner Relationship Specialty Start Date End Date Amy Pickett MD [address] [place] [address] PCP - General Internal Medicine 04/07/23 documented as of this encounter
--- OUTSIDE RECORDS SUMMARY | 2025-03-31 09:10 | XMS_ITS | Encounter Summary ---
Author Organization [employer] Address [address] [place] [address] 7 [place] [address] Care Team Providers Care Semiconductor Bonder Name Role Phone Elise Glover PHOTO LAB MANAGER Primary Care Provider Amy Ware MD Primary Care Pro vider Reason for Visit * Reason Onset Date Comments triage 08/22/2022 Encounter Details Date Type Department Care Team (Late st Contact Info) Description 08/22/2022 Telephone [facility] MEDICINE [address] [place], [place] [phone] Elise Glover FNP triage Social History Tobacco [...] 11:00 AM EDT Office Visit [facility] MEDICINE [address] [place] [address] documented as of this encounter Visit Diagnoses Not on filedocumented in this encounter Care Teams Semiconductor Bonder Relationship Specialty Start Date End Date Elise Glover FNP PCP - General Family Medicine 07/09/22 04/06/23 Amy Pickett MD [address] [place] [phone] PCP - General Internal Medicine 04/07/23 documented as of this encounter
--- OUTSIDE RECORDS SUMMARY | 2025-03-31 09:10 | XMS_ITS | Clinical Summary ---
Author Organization [employer] Address [address] [place] [address] 7t [place] [address] Care Team Providers Care Plastic Cutter Name Role Phone Amy Pickett MD [...] 022 Active Nebulizers (Comp-Air Elite Compact Neb) [facility] [place] Active Blood Pressure Monitor kit 1 each [...] vomiting. 60 tablet 1 023 Active pancrelipase, Ref-Oiod-Ywva, (Creon) 1060-1118 units capsule Take 1 capsule by mouth [...] oxyCODONE (Roxicodone) 15 MG immediate release tabletIndicatio ns:MEDICAL CLAIMS MANAGER checked 06/13/22 Take 1 tablet (15 [...] oxyCODONE (Roxicodone) 15 MG immediate release tabletIndicatio ns:MEDICAL CLAIMS MANAGER checked 06/13/22 Take 1 tablet (15 [...] recommended. -Supportive care advised. -Isolation recommendations discussed. jail 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 2023 Overview (01/25/2025): Dx: chronic neck, low back pain, LE claudication Rx: Oxycodone 15mg IR q 6 hours Last CORROSION CONTROL SPECIALIST agreement: 09/28/24 Tier: 1 (monthly CORROSION CONTROL SPECIALIST visits) Additional considerations: Alprazolam 1mg for anxiety Assessment & Plan (01/25/2025 1:45 PM EDT): Timeline: -previous positive utox for cocaine 11/2023 -09/28/24: Group - utox/pill count wnl -01/25/25: Group - Pill count as expected, Utox pos cocaine. Confirmatory testing sent. Chronic obstructive pulmonar y disease, unspecified COPD type 05/16/2024 Overview (09/05/2024): Following with [facility] pulmonology-Dr. Maldonado Continue [...] Injections 11/2022 Encouraged stretching Will refer to [facility] Continue CORROSION CONTROL SPECIALIST at this time. Will perform random Utox [...] root compression . Seen by Neurosurgery at [facility], note pending Referred to Pain Management November 2024 Assessment & Plan (01/25/2025 1:44 PM EDT): -Good engagement and participation with Group Medical Visit model -Encouraged multifactorial approach to pain control including pharm and non- pharm modalities -Pill count as expected, Utox pos cocaine. Confirmatory testing sent. See career advisor. Assessment & Plan (09/28/2024 2:02 PM EDT): [...] C7 fracture seen on CT scan at [facility] ER 10/28/23 He [...] C7 fracture seen on CT scan at [facility] ER 10/28/23 He [...] Injections 11/2022 Encouraged stretching Will refer to [facility] physical therapy Continue CORROSION CONTROL SPECIALIST at this time. Will perform random Utox [...] lumbar pain. Encouraged stretching Will refer to [facility] Continue CORROSION CONTROL SPECIALIST at this time. Will perform random Utox [...] 9:45 AM EDT Clinical Support [facility] MEDICINE [address] [place] [address] 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 RN Chronic right shoulder pain (Primary Dx) 03/29/2025 Telephone [facility] [address] [place] [address] 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 RN 03/29/2025 Orders Only [facility] MEDICINE [address] [place] [address] Amy Pickett MD Chronic right shoulder pain (Primary Dx) 03/29/2025 Telephone [facility] [address] [place] [address] 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 RN 03/29/2025 Travel 03/24/2025 Refill [facility] [address] [place] [address] 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 RN Chronic pain of both knees; Chronic low back pain, unspecified back pain laterality, unspecified whether sciatica present 03/24/2025 Refill [facility] MEDICINE [address] [place] [address] Amy Pickett MD Moderate persistent asthma without complication 03/24/2025 Telephone [facility] MEDICINE [address] [place] [address] Amy Pickett MD Med Refill 03/22/2025 Orders Only [facility] External Provider, [facility] 03/18/2025 Orders Only [facility] MEDICINE [address] [place] [address] Amy Pickett MD 03/18/2025 Telephone [facility] MEDICINE [address] [place] [address] Amy Pickett MD Change PCP 03/18/2025 Telephone [facility] [address] [place] [address] 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, DARIANA 03/17/2025 Orders Only [facility] MEDICINE [address] [place] [address] Amy Pickett MD 03/17/2025 Telephone [facility] MEDICINE [address] [place] [address] Amy Pickett MD Nurse Triage 03/17/2025 Telephone [facility] MEDICINE [address] [place] [address] Amy Pickett MD Medication Question 03/16/2025 Telephone [facility] [address] [place] [address] 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 RN 03/16/2025 Telephone [facility] MEDICINE [address] [place] [address] Amy Pickett MD FYI 03/08/2025 Orders Only [facility] MEDICINE [address] [place] [address] Amy Pickett MD 03/08/2025 Telephone [facility] [address] [place] [address] 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 RN 03/05/2025 Refill [facility] MEDICINE [address] [place] [address] Amy Pickett MD Chronic low back pain, unspecified back pain laterality, unspecified whether sciatica present 03/03/2025 Telephone [facility] MED[facility] [address] [facility] [place] [address] Amy Pickett MD Durable Medical Equipment 03/03/2025 Telephone [facility] [place] [address] Amy Pickett MD call back requesting 03/01/2025 9:10 AM EDT Clinical Support [facility] [place] [address] 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, DARIANA jail 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 03/01/2025 Orders Only [facility] [place] [address] Amy Pickett MD 03/01/2025 Telephone [facility] [address] [place] [address] 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 RN 03/01/2025 Travel 02/24/2025 Refill [facility] [address] [place] [address] 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 RN Chronic pain of both knees; Chronic low back pain, unspecified back pain laterality, unspecified whether sciatica present 02/24/2025 Telephone [facility] [place] [address] Amy Pickett MD med 02/24/[address] [address] Amy Pickett MD Med Refill 02/19/2025 Refill [facility] [place] [address] Amy Pickett MD 02/10/2025 9:30 AM EDT Office Visit [facility] [place] [address] Amy Pickett MD Cervical spondylosis without myelopathy (Primary Dx); Chronic migraine without aura without status migrainosus, not intractable; Essential hypertension; H/O lipoma; Mass of wrist, right; Claudication of left lower extremity (CMS/HCC); Health care maintenance; Lipoma, unspecified site; jail 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; Chronic right shoulder pain; Spondylosis of cervical spine 02/10/2025 Telephone [facility] MEDICINE [address] [place] [phone] Amy Pickett MD Change PCP; TRANSFER REQUEST 02/10/2025 Travel 02/08/2025 Refill [facility] WALK[facility] CENTER [address] [place] [address] Amy Pickett MD 02/03/2025 Refill [facility] MEDICINE [address] [place] [address] Bri Noriega MD 02/01/[address] [address] Amy Pickett MD Durable Medical Equipment 01/27/2025 Orders Only [facility] External Provider, [facility] 01/25/2025 9:45 AM EDT Office Visit [address] [address] Holly Wills FNP Spondylosis of cervical spine (Primary Dx); jail 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 01/25/2025 Telephone [facility] [address] [place] [address] 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 RN 01/25/2025 Travel 01/21/2025 Refill [facility] MEDICINE [address] [place] [address] Amy Pickett MD Chronic pain of both knees; Chronic low back pain, unspecified back pain laterality, unspecified whether sciatica present 01/11/2025 Refill [facility] [address] [place] [address] Brent Hanson MD 01/10/2025 Telephone [facility] MEDICINE [address] [place] [phone] Amy Pickett MD TP request 12/29/2024 Telephone [facility] MEDICINE [address] [place] [phone] Amy Pickett MD fyi from Last 3 Months Immunizations Immunization Administration [...] 11:00 AM EDT Office Visit [facility] MEDICINE [address] [place] [address] Health Maintenance Due Date Last Done Comments [...] DRUG SCREEN Routine 03/01/2025 10:10 AM EDT rn long term care 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 DRUG MONITOR, COCAINE METAB, QN, URINE Routine 03/01/2025 9:32 AM EDT XR WRIST 3+ VIEWS RIGHT Routine 01/27/2025 11:18 AM EDT XR ELBOW 1-2 VIEWS RIGHT Routine 01/27/2025 11:13 AM EDT XR SHOULDER 2+ VIEWS RIGHT Routine 01/27/2025 11:06 AM EDT POCT ROBIN-14 URINE DRUG SCREEN Routine 01/25/2025 10:15 AM EDT Spondylosis of cervical spine rn long term care 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 DRUG MONITOR, COCAINE METAB, QN, URINE Routine 01/25/2025 9:30 AM EDT Spondylosis of cervical spine jail 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 HEPATITIS [...] 10:07 AM EDT) Only the most recent of3 [...] - 03/29/2025 10:07 AM EDT .UTOX cup Lot#[id number] Exp. 04/12/26 Internal Pass Control us Amy Berry MD POINT OF CARE SOHA T ENTER/EDIT ORDERABLES Final Result * XR Pelvis 1-2 Views (03/22/2025 1:32 PM EDT) Anatomical Region Laterality Modality Body, Pelvis Radiographic Maxine ging 03/22/2025 1:32 PM EDT Narrative 03/22/2025 1:45 PM EDT [address] [address] XRay Report Signed Patient: Zain Welch MR# : [id number] : 1965 Acct:[id number] Age/Sex: 59 / M ADM Date: 03/22/25 Loc: HOYAJAIRA Attending Dr: Salvador Elliott MD Ordering Physician: Salvador Elliott MD Date of Service: 03/22/25 Procedure(s): XR pelvis 1-2V Accession Number(s): [id number] cc: Salvador Elliott MD; Amy Pickett MD [...] 03/22/25 1343 DD/ 1332 TD/TT: 03/22/25 1335 Data Governance Analyst: Procedure Note Donotuseinterpreter, Image - 03/22/[address] [address] XRay Report Signed Patient: Zain Welch LMR# : [id number] : 1965Acct:[id number] Age/Sex: 59 / MADM Date: 03/22/25 Loc: HO.XRAY Attending Dr: Salvador Elliott MD Ordering Physician: Salvador Elliott MD Date of Service: 03/22/25 Procedure(s): XR pelvis 1-2V Accession Number(s): [id number] cc: Salvador Elliott MD; Amy Pickett MD [...] 03/22/25 1343 DD/ 1332 TD/TT: 03/22/25 1335 Data Governance Analyst: [facility] External Provider IMG XR PROCEDURES Edited Result - Final * Drug Monitoring, Cocaine Metabolite, Quantitative, Urine (03/01/2025 9:32 AM EDT) Only the most recent of2 resultswithin the time period is included. Benzoylecgonine [address] [facility] Comment:CUTOFF 100NG/MLPERFO RMING SITE:[facility], [address] [place], [place] [id number] Welt Sole Layer: MICHELLE GAUTAM MD, CLIA:[id number] Cocaine Comments SEE NOTE [facility] Comment:This drug testing is for medical treatment only. Analysiswas performed as non-forensic testing and these resultsshould be used only by healthcare providers torender diagnosis or treatment, or to monitor progress ofmedical conditions.Cocaine Notes:Benzoylecgonine detected is consistent with the use of thedrug Cocaine.LDT Notes:Confirmation tests were developed and their analyticalperformance characteristics have been determined by [employer]. It has not been cleared orapproved by the FDA. This assay has been validated pursuantto the CLIA regulations and is used for clinical purposes.Healthcare Providers needing Interpretation assistance,please contact us at [phone] ( ) M-F,8am to 10pm EST 03/01/2025 9:32 AM EDT 03/01/2025 1:39 PM EDT us Amy Berry MD LAB URINE ORDERAB LES Final Result Performing Organization Address City/State/[facility] Co de Phone Number [facility] [address] [place] [phone] * XR Wrist 3+ Views Right (01/27/2025 11:18 AM EDT) Anatomical Region Laterality Modality Upper Extremities, Wrist Right Radiogr aphic Imaging 01/27/2025 11:1 8 AM EDT Narrative 01/27/2025 12:26 PM EDT [address] [address] XRay Report Signed Patient: Zain Welch MR# : [id number] : 1965 Acct:[id number] Age/Sex: 59 / M ADM Date: 01/27/25 Loc: HO.ED Attending Dr: Ordering Physician: Ailyn Carbone Date of Service: 01/27/25 Procedure(s): XR wrist RT min 3V Accession Number(s): [id number] cc: Ailyn Carbone; Amy Pickett MD EXAMINATION: [...] 01/27/25 1223 DD/ 1118 TD/TT: 01/27/25 1217 Data Governance Analyst: Procedure Note Donotuseinterpreter, Image - 01/27/2025 [place] [address] XRay Report Signed Patient: Zain Welch LMR# : [id number] : 1965Acct:[id number] Age/Sex: 59 / MADM Date: 01/27/25 Loc: .ED Attending Dr: Ordering Physician: Ailyn Carbone Date of Service: 01/27/25 Procedure(s): XR wrist RT min 3V Accession Number(s): [id number] cc: Ailyn Carbone; Amy Pickett MD EXAMINATION: [...] 01/27/25 1223 DD/ 1118 TD/TT: 01/27/25 1217 Data Governance Analyst: us [facility] External Provider IMG XR PROCEDURES Edited Result - Final * XR Elbow 1-2 Views Right (01/27/2025 11:13 AM EDT) Anatomical Region Laterality Modality Upper Extremities, Elbow Right Radiogr aphic Imaging 01/27/2025 11:1 3 AM EDT Narrative 01/27/2025 12:25 PM EDT [address] [address] XRay Report Signed Patient: Zain Welch MR# : [id number] : 1965 Acct:[id number] Age/Sex: 59 / M ADM Date: 01/27/25 Loc: .ED Attending Dr: Ordering Physician: Ailyn Carbone Date of Service: 01/27/25 Procedure(s): XR elbow RT 2V Accession Number(s): [id number] cc: Ailyn Carbone; Amy Pickett MD EXAMINATION: [...] 01/27/25 1223 DD/ 1113 TD/TT: 01/27/25 1217 Data Governance Analyst: Procedure Note Donotuseinterpreter, Image - 01/27/[address] [address] XRay Report Signed Patient: Zain Welch LMR# : [id number] : 1965Acct:[id number] Age/Sex: 59 / MADM Date: 01/27/25 Loc: HO.ED Attending Dr: Ordering Physician: Ailyn Carbone Date of Service: 01/27/25 Procedure(s): XR elbow RT 2V Accession Number(s): [id number] cc: Ailyn Carbone; Amy Pickett MD EXAMINATION: [...] 01/27/25 1223 DD/ 1113 TD/TT: 01/27/25 1217 Data Governance Analyst: [facility] External Provider IMG XR PROCEDURES Edited Result - Final * XR Shoulder 2+ Views Right (01/27/2025 11:06 AM EDT) Anatomical Region Laterality Modality Upper Extremities, Shoulder Right Radi ographic Imaging 01/27/2025 11:0 6 AM EDT Narrative 01/27/2025 12:25 PM EDT [place] [address] XRay Report Signed Patient: Zain Welch MR# : [id number] : 1965 Acct:[id number] Age/Sex: 59 / M ADM Date: 01/27/25 Loc: HO.ED Attending Dr: Ordering Physician: Ailyn Carbone Date of Service: 01/27/25 Procedure(s): XR shoulder RT min 2V Accession Number(s): [id number] cc: Ailyn Carbone; Amy Pickett MD EXAMINATION: [...] cervical spine no fully included in the nfndi-eu-kpuc. Calcified plaque in the thoracic aortic arch. XR/XR shoulder RT min 2V IMPRESSION: Mild degenerative changes without acute fracture or dislocation. Electronically signed by: Tyler Cortez MD 01/27/2025 12:22 PM EDT RP Dictated By: Tyler Serrato MD Signed By: <Electronically signed by Tyler Reid MD in OV> 01/27/25 1222 DD/ 1106 TD/TT: 01/27/25 1217 Data Governance Analyst: Procedure Note Donotuseinterpreter, Image - 01/27/[address] [address] XRay Report Signed Patient: Zain Welch LMR# : [id number] : 1965Acct:[id number] Age/Sex: 59 / MADM Date: 01/27/25 Loc: HO.ED Attending Dr: Ordering Physician: Ailyn Carbone Date of Service: 01/27/25 Procedure(s): XR shoulder RT min 2V Accession Number(s): [id number] cc: Ailyn Carbone; Amy Pickett MD EXAMINATION: [...] cervical spine no fully included in the xppbz-au-gcrp. Calcified plaque in the thoracic aortic arch. XR/XR shoulder RT min 2V IMPRESSION: Mild degenerative changes without acute fracture or dislocation. Electronically signed by: Tyler Cortez MD 01/27/2025 12:22 PM EDT RP Dictated By: Tyler Serrato MD Signed By: <Electronically signed by Tyler Reid MDin OV> 01/27/25 1222 DD/ 1106 TD/TT: 01/27/25 1217 Data Governance Analyst: [facility] External Provider IMG XR PROCEDURES Edited Result - Final * (ABNORMAL) Hepatitis C Antibody with Reflex to HCV, RNA, Quantitative, Real- Time PCR (09/29/2024 3:37 PM EDT) Hepatitis C Antibody Reactive( A) Nonreactive [facility] Comment:Presumptive evidence of antibodies to HCV. Blood Venous blood specimen / Unknown 09/29/2024 3:37 PM EDT 09/29/2024 3:38 PM EDT Brent Fischer MD LAB BLOOD ORDERABL ES Final Result [facility] [address] [place] [address] [phone] * HIV-1/2 Antigen and Antibodies, Fourth Generation, with Reflexes (09/29/2024 3:37 PM EDT) HIV AB/AG Nonreactive Nonreactive [facility] Comment:HIV-1 p24 Ag and/or HIV-1/HIV-2 Ab not detected.A test result that is nonreactive does not exclude thepossibility of exposure to or infection with HIV-1 and/orHIV-2. Nonreactive results in this assay for individualswith prior exposure to HIV-1 and/or HIV-2 may be due toantigen and antibody levels that are below the limit ofdetection of this assay.The [employer]oon HIV Ag/Ab Combo assay result andsupplemental assay results should be interpreted inconjunction with the patient's clinical presentation,history and other laboratory results. If the results areinconsistent with clinical evidence, additional testing issuggested to confirm the result. Blood Venous blood specimen / Unknown 09/29/2024 3:37 PM EDT 09/29/2024 3:38 PM EDT us Brent Fischer MD LAB BLOOD ORDERABL ES Final Result [facility] [address] [place] [phone] * (ABNORMAL) Lipid Panel, Standard (09/29/2024 3:37 PM EDT) Triglycerides 155(H) <150 mg/dL [facility] Comment:Desirable Triglyceri de: less than 150 mg/dLBorderline High Triglyceride 150-199 mg/dLHigh Triglyceride: 200-499 mg/dLVery High Triglyceride: greater than or equal to 5OO mg/dL Cholesterol 211(H) <200 mg/dL [facility] Comment:Desirable Cholestero l: less than 200 mg/dLBorderline High Cholesterol: 200-239 mg/dLHigh Cholesterol: greater than 239 mg/dL LDL Cholesterol Calculated 131(H) <100 mg/dL [facility] Comment:Desirable LDL: less than 100 mg/dLNear Optimal/Above Optimal LDL: 110- 129 mg/dLBorderline High LDL: 130-159 mg/dLHigh LDL: 160-189 mg/dLVery High LDL: greater than or equal to 190 mg/dL HDL Cholesterol 49 >40 mg/dL [facility] Comment:Desirable HDL: great er than 40 mg/dL Note: This HDL assay may give artificially low results in patients with liver disease. Blood Venous blood specimen / Unknown 09/29/2024 3:37 PM EDT 09/29/2024 3:38 PM EDT us Amy Berry MD LAB BLOOD ORDERAB LES Final Result [facility] [address] [place] [phone] * Hm Colonoscopy (01/06/2018 8:00 AM EDT) us Historical Provider HEALTH MAINTENANCE Final Result from Last 3 Months or Most Recently Relevant to Health Maintenance Insurance [facility]ARE < 65 [address] [place] [address] [place] [address] [place] Care Teams Plastic Cutter Relationship Specialty Start Date End Date Amy Pickett MD [address] [place] [address] PCP - General Internal Medicine 04/07/23
--- OUTSIDE RECORDS SUMMARY | 2025-03-31 09:10 | XMS_ITS | Encounter Summary ---
Author Organization [employer] Address [address] [facility] 7t [place] [address] Care Team Providers Care Associate Programmer Analyst Name Role Phone Amy Pickett MD Primary Care Pro vider Encounter Details Date Type Department Care Team ([facility] st Contact Info) Description 03/29/2025 Telephone [facility] [address] [place], [place] [phone] 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, RN [address] [place] [address] Social History Tobacco Use Types Packs/Day Years [...] pt regarding message below. Spoke with pt's CLASSROOM ASSISTANT who verbalized understanding and stated she will relay message to pt. documented in this encounter Plan of Treatment Upcoming Encounters Date Type Department Care Team (Late st Contact Info) Description 05/03/2025 11:00 AM EDT Office Visit [facility] [address] [place] [address] documented as of this encounter Visit Diagnoses Not on filedocumented in this encounter Additional Health Concerns Assessment Noted Time PHQ-9 Depression Total Score: 0 11/25/19 25 2:10 PM EDT documented as of this encounter Care Teams Associate Programmer Analyst Relationship Specialty Start Date End Date Amy Pickett MD 230 [place] [address] PCP - General Internal Medicine 04/07/23 documented as of this encounter
--- OUTSIDE RECORDS SUMMARY | 2025-03-31 09:10 | XMS_ITS | Encounter Summary ---
Author Organization [employer] Address 75 [facility] 7 [place] [address] Care Team Providers Care Crew Mess Attendant Name Role Phone Amy Pickett MD Primary Care Pro vider Reason for Visit * Reason Onset Date Comments FYI 03/16/2025 Encounter Details Date Type Department Care Team ([facility] st Contact Info) Description 03/16/2025 Telephone [facility] [address] [place], [place] [phone] Amy Pickett MD [address] [place] [address] FYI Social History Tobacco Use Types Packs/Day [...] who reports pt currently having surgery at [facility] through [facility] to get SNS device removed so that he can have MRI done as he couldn't have MRI with the implant and he has excruciating 10/10 shoulder pain and can't lift his arm. Advised to call [facility] centralized scheduling to r/s MRI now that implant is being removed. Texted her their phone number via [employer] text at her request. She reports that [...] group appt be changed to a normal FLASK CARRIER appt. Seeing as though he is having [...] anything out of it. Would rather do FLASK CARRIER visits. Informed I would send message regarding this. * Telephone Encounter - Jesusita Castellanos - 03/16/2025 3:01 PM EDT Tc from [facility] stating specialist pritesh to give him an emergency surgery to get the implant out. So now pt is able to do MRI. documented in this encounter Plan of Treatment Upcoming Encounters Date Type Department Care Team (Late st Contact Info) Description 05/03/2025 11:00 AM EDT Office Visit [facility] [address] [place] [address] documented as of this encounter Visit Diagnoses Not on filedocumented in this encounter Additional Health Concerns Assessment Noted Time PHQ-9 Depression Total Score: 0 11/25/19 25 2:10 PM EDT documented as of this encounter Care Teams Crew Mess Attendant Relationship Specialty Start Date End Date Amy Pickett MD [address] [place] [address] PCP - General Internal Medicine 04/07/23 documented as of this encounter
--- OUTSIDE RECORDS SUMMARY | 2025-03-31 09:10 | XMS_ITS | Clinical Summary ---
Author Organization [employer] Address [address] [place] [address] Care Team Providers Care Senior International Tax Manager Name Role Phone Ba Maria MD Primary Care Provider Surgical History Surgery Date Site/Laterality Comments FOOT SURGERY PROCEDURE: [place] UNLISTED PROCEDURE FOOT/TOES; COMMENT: left foot bunion removal LIPOMA RESECTION PROCEDURE: SKIN TISSUE EXCISION(LIPOMA) OTHER SURGICAL HISTORY PROCEDURE: ---- OTHER ----; COMMENT: urethral surgeries done? three times in [facility] for difficulty urinating Medical History Medical History Date Comments Chronic back pain DX:Chronic alonso k pain Asthma DX:Asthma Anxiety DX:Anxiety; COMM ENT: follows at [facility] Family History Medical History Relation [...] to complete this topic Care Teams Senior International Tax Manager Relationship Specialty Start Date End Date Ba Maria MD PCP - General Internal Medicine 10/26/12
--- OUTSIDE RECORDS SUMMARY | 2025-03-31 09:10 | XMS_ITS | Encounter Summary ---
Author Organization [employer] Address [address] [facility] [address] 7t [place] [address] Care Team Providers Care Acute Dialysis Nurse Name Role Phone Amy Pickett MD Primary Care Pro vider Encounter Details Date Type Department Care Team (Late st Contact Info) Description 06/24/2024 Orders Only [facility] MED[facility]INE [address] [place] [address] Provider, MD Bryan Social History Tobacco Use [...] Description 05/03/2025 11:00 AM EDT Office Visit [facility] [address] [place] [address] documented as of this encounter Procedures Procedure [...] documented as of this encounter Care Teams Acute Dialysis Nurse Relationship Specialty Start Date End Date Amy Pickett MD 230 [place] [address] PCP - General Internal Medicine 04/07/23 documented as of this encounter
--- OUTSIDE RECORDS SUMMARY | 2025-03-31 09:10 | XMS_ITS | Encounter Summary ---
Author Organization [employer] Address [address] [place] [address] 7 [place] [address] Care Team Providers Care Deck Hand Name Role Phone Amy Pickett MD Primary Care Pro vider Reason for Visit * Reason Onset Date Comments Med Refill 2024 Encounter Details Date Type Department Care Team ([facility] st Contact Info) Description 2024 Telephone [facility] MED[facility]INE [address] [place], [place] [phone] Amy Pickett MD [address] [place], [place] [phone] Med Refill Social History Tobacco Use Types [...] to: [facility]/pharmacy #1972 - [address] documented in this encounter Plan of Treatment Upcoming Encounters Date Type Department Care Team (Late st Contact Info) Description 05/03/2025 11:00 AM EDT Office Visit [facility] MED[facility]INE [address] [place], [place] [phone] documented as of this encounter Visit Diagnoses Not on filedocumented in this encounter Additional Health Concerns Assessment Noted Time PHQ-9 Depression Total Score: 0 11/25/19 25 2:10 PM EDT documented as of this encounter Care Teams Deck Hand Relationship Specialty Start Date End Date Amy Pickett MD [address] [place], [place] [phone] PCP - General Internal Medicine 04/07/23 documented as of this encounter
--- OUTSIDE RECORDS SUMMARY | 2025-03-31 09:10 | XMS_ITS | Encounter Summary ---
Author Organization [employer] Address [address] [facility] 7t [place] [address] Care Team Providers Care School Clerk Name Role Phone Amy Pickett MD Primary Care Pro vider Encounter Details Date Type Department Care Team ([facility] st Contact Info) Description 10/01/2024 Orders Only [facility] MED & PEDS [address] [place], [place] [phone] Za Preston MD 505 [place] [address] Social History Tobacco Use Types Packs/Day Years [...] Description 05/03/2025 11:00 AM EDT Office Visit [facility] [address] [place] [address] documented as of this encounter Visit Diagnoses Not on filedocumented in this encounter Additional Health Concerns Assessment Noted Time PHQ-9 Depression Total Score: 10 024 9:41 AM EDT documented as of this encounter Care Teams School Clerk Relationship Specialty Start Date End Date Amy Pickett MD 230 [place] [address] PCP - General Internal Medicine 04/07/23 documented as of this encounter
--- OUTSIDE RECORDS SUMMARY | 2025-03-31 09:10 | XMS_ITS | Clinical Summary ---
Author Organization [facility] Address [address] [place] [address] Care Team Providers Care Client Finance Analyst Name Role Phone Donna Harmon MD Primary [...] Influenza Vaccine (#1) 2025 Insurance [facility] [place]ES [id number] Care Teams Client Finance Analyst Relationship Specialty Start Date End Date Donna Harmon MD PCP - General 05/11/19
--- OUTSIDE RECORDS SUMMARY | 2025-03-31 09:10 | XMS_ITS | Encounter Summary ---
Author Organization [employer] Address [address] [place] [address] 7 [place] [address] Care Team Providers Care Warehouse Pricing And Inventory Clerk Name Role Phone Amy Pickett MD Primary Care Pro vider Reason for Visit * Reason Onset Date Comments call back requesting 03/03/2025 Encounter Details Date Type Department Care Team ([facility] st Contact Info) Description 03/03/2025 Telephone [facility] [address] [place], [place] [phone] Amy Pickett MD [address] [place] [address] call back requesting Social History Tobacco Use [...] the pt and spoke with the pt COMPANY MARKER Domenica (HIPAA compliant) in regards to the [...] device. Domenica called the pt urologist at [facility] for guidance as the pt is [...] out of he's body. Contact pt at [phone] documented in this encounter Plan of Treatment Upcoming Encounters Date Type Department Care Team (Late st Contact Info) Description 05/03/2025 11:00 AM EDT Office Visit [facility] [address] [place] [address] documented as of this encounter Visit Diagnoses Not on filedocumented in this encounter Additional Health Concerns Assessment Noted Time PHQ-9 Depression Total Score: 0 11/25/19 25 2:10 PM EDT documented as of this encounter Care Teams Warehouse Pricing And Inventory Clerk Relationship Specialty Start Date End Date Amy Pickett MD [address] [place] [address] PCP - General Internal Medicine 04/07/23 documented as of this encounter
--- OUTSIDE RECORDS SUMMARY | 2025-03-31 09:10 | XMS_ITS | Encounter Summary ---
Author Organization [employer] Address 75 [facility] 7 [place] [address] Care Team Providers Care Drug Safety Associate Name Role Phone Amy Pickett MD Primary Care Pro vider Reason for Visit * Reason Onset Date Comments Medication Question 03/17/2025 Encounter Details Date Type Department Care Team ([facility] st Contact Info) Description 03/17/2025 Telephone [facility] MEDICINE 230 [place], [place] [phone] Amy Pickett MD 230 [place] [address] Medication Question Social History Tobacco Use Types [...] pain killer. Any questions contact pt at [phone] * Telephone Encounter - Andrew Maldonado - 03/17/2025 11:19 AM EDT Tc from [employer]omen[employer], pt's SR. CONSULTANT, stating pt had a surgery done but due to pt being prescribed Oxycodone they were unable to prescribe pt any pain medication. Domenica is hoping pt can be prescribed some sort of muscle relaxer or an accomodation to be prescribed medication. If any questions please contact Domenica at [phone]. documented in this encounter Plan of Treatment Upcoming Encounters Date Type Department Care Team ([facility] st Contact Info) Description 05/03/2025 11:00 AM EDT Office Visit [facility] MEDICINE [address] [place] [address] documented as of this encounter Visit Diagnoses Not on filedocumented in this encounter Additional Health Concerns Assessment Noted Time PHQ-9 Depression Total Score: 0 11/25/19 25 2:10 PM EDT documented as of this encounter Care Teams Drug Safety Associate Relationship Specialty Start Date End Date Amy Pickett MD [address] [place] [address] PCP - General Internal Medicine 04/07/23 documented as of this encounter
--- OUTSIDE RECORDS SUMMARY | 2025-03-31 09:10 | XMS_ITS | Encounter Summary ---
Author Organization [employer] Address [address] [place] [address] 7t [place] [address] Care Team Providers Care Manager Rfid Name Role Phone Elise Glover BARREL DRUM CUTTER Primary Care Provider Amy Ware MD Primary Care Pro vider Encounter Details Date Type Department Care Team (Late st Contact Info) Description 01/14/2023 Orders Only [facility] MEDICINE [address] [place] [phone] Elise Glover FNP Social History Tobacco Use [...] 11:00 AM EDT Office Visit [facility] MED[facility]INE [address] [place], [place] [phone] documented as of this encounter Visit Diagnoses Not on filedocumented in this encounter Additional Health Concerns Assessment Noted Time PHQ-9 Depression Total Score: 24 03/28/2 023 10:05 AM EDT documented as of this encounter Care Teams Manager Rfid Relationship Specialty Start Date End Date Elise Glover FNP PCP - General Family Medicine 07/09/22 04/06/23 Amy Pickett MD [address] [place] [address] PCP - General Internal Medicine 04/07/23 documented as of this encounter
--- OUTSIDE RECORDS SUMMARY | 2025-03-31 09:10 | XMS_ITS | Encounter Summary ---
Author Organization [employer] Address [address] [place] [address] 7 [place] [address] Care Team Providers Care Special Technical Operations Officer Name Role Phone Amy Pickett MD Primary Care Pro vider Reason for Visit * Reason Onset Date Comments Med Refill 02/24/2025 Encounter Details Date Type Department Care Team ([facility] st Contact Info) Description 02/24/2025 Telephone [facility] 230 [place], [place] [phone] Amy Pickett MD 230 [place], [place] [phone] Med Refill Social History Tobacco Use Types [...] to: [facility]/pharmacy #1972 - [address] documented in this encounter Plan of Treatment Upcoming Encounters Date Type Department Care Team (Late st Contact Info) Description 05/03/2025 11:00 AM EDT Office Visit [facility] [address] [place] [address] documented as of this encounter Visit Diagnoses Not on filedocumented in this encounter Additional Health Concerns Assessment Noted Time PHQ-9 Depression Total Score: 0 11/25/19 25 2:10 PM EDT documented as of this encounter Care Teams Special Technical Operations Officer Relationship Specialty Start Date End Date Amy Pickett MD [address] [place] [address] PCP - General Internal Medicine 04/07/23 documented as of this encounter
--- OUTSIDE RECORDS SUMMARY | 2025-03-31 09:10 | XMS_ITS | Encounter Summary ---
Author Organization [employer] Address [address] [facility] 7t [place] [address] Care Team Providers Care Mangle Roll Operator Name Role Phone Amy Pickett MD [...] Description 05/03/2025 11:00 AM EDT Office Visit [facility] MEDICINE [address] [place] [address] documented as of this encounter Visit Diagnoses Not on filedocumented in this encounter Additional Health Concerns Assessment Noted Time PHQ-9 Depression Total Score: 0 11/25/19 25 2:10 PM EDT documented as of this encounter Care Teams Mangle Roll Operator Relationship Specialty Start Date End Date Amy Pickett MD [address] [place] [address] PCP - General Internal Medicine 04/07/23 documented as of this encounter
--- OUTSIDE RECORDS SUMMARY | 2025-03-31 09:10 | XMS_ITS | Encounter Summary ---
Author Organization [employer] Address [address] [place] [address] 7 [place] [address] Care Team Providers Care Financial Business Analyst Name Role Phone Amy Pickett MD Primary Care Pro vider Reason for Visit * Reason Onset Date Comments Med Refill 08/06/2024 Encounter Details Date Type Department Care Team ([facility] st Contact Info) Description 08/06/2024 Telephone [facility] MEDICINE [address] [place], [place] [phone] Amy Pickett MD 230 [place], [place] [phone] Med Refill Social History Tobacco Use Types [...] 0.083% nebulizer solution To be sent to: [facility]/pharmacy #1972 - [address] documented in this encounter Plan of Treatment Upcoming Encounters Date Type Department Care Team (Late st Contact Info) Description 05/03/2025 11:00 AM EDT Office Visit [address] [phone] documented as of this encounter Visit Diagnoses Not on filedocumented in this encounter Additional Health Concerns Assessment Noted Time PHQ-9 Depression Total Score: 10 024 9:41 AM EDT documented as of this encounter Care Teams Financial Business Analyst Relationship Specialty Start Date End Date Amy Pickett MD [address] [place] [address] PCP - General Internal Medicine 04/07/23 documented as of this encounter
--- OUTSIDE RECORDS SUMMARY | 2025-03-31 09:10 | XMS_ITS | Encounter Summary ---
Author Organization [employer] Address [address] [place] [address] 7 [place] [address] Care Team Providers Care Account Executive Name Role Phone Amy Pickett MD Primary Care Pro vider Reason for Visit * Reason Onset Date Comments Med Refill 04/09/2024 Encounter Details Date Type Department Care Team (Late st Contact Info) Description 04/09/2024 Telephone [facility] MEDICINE 230 [place], [place] [phone] Amy Pickett MD [address] [place], [place] [phone] Med Refill Social History Tobacco Use Types [...] release tablet To be sent to: [facility]/pharmacy #1972 - [address] documented in this encounter Plan of Treatment Upcoming Encounters Date Type Department Care Team (Late st Contact Info) Description 05/03/2025 11:00 AM EDT Office Visit [facility] MEDICINE [address] [place] [address] documented as of this encounter Visit Diagnoses Not on filedocumented in this encounter Additional Health Concerns Assessment Noted Time PHQ-9 Depression Total Score: 10 024 9:41 AM EDT documented as of this encounter Care Teams Account Executive Relationship Specialty Start Date End Date Amy Pickett MD [address] [place] [address] PCP - General Internal Medicine 04/07/23 documented as of this encounter
--- OUTSIDE RECORDS SUMMARY | 2025-03-31 09:10 | XMS_ITS | Encounter Summary ---
Author Organization [employer] Address [address] [place] [address] 7t [place] [address] Care Team Providers Care Human Resources Recruiter Name Role Phone Elise Glover CLIENT DIRECTOR Primary Care Provider Amy Ware MD Primary Care Pro vider Reason for Visit * Reason Onset Date Comments Durable Medical Equipment 10/07/2022 Encounter Details Date Type Department Care Team (Late st Contact Info) Description 10/07/2022 Telephone [facility] MEDICINE [address] [place] [address] Elise Glover, CLIENT DIRECTOR Durable Medical Equipment Social History Tobacco Use [...] If any questions please contact Anabelle at [phone] documented in this encounter Plan of Treatment Upcoming Encounters Date Type Department Care Team (Late st Contact Info) Description 05/03/2025 11:00 AM EDT Office Visit [facility] MEDICINE [address] [place] [address] documented as of this encounter Visit Diagnoses Not on filedocumented in this encounter Additional Health Concerns Assessment Noted Time PHQ-9 Depression Total Score: 24 023 10:05 AM EDT documented as of this encounter Care Teams Human Resources Recruiter Relationship Specialty Start Date End Date Elise Glover FNP PCP - General Family Medicine 07/09/22 04/06/23 Amy Pickett MD 230 [place] [address] PCP - General Internal Medicine 04/07/23 documented as of this encounter
--- OUTSIDE RECORDS SUMMARY | 2025-03-31 09:10 | XMS_ITS | Encounter Summary ---
Author Organization [employer] Address [address] [place] [address] 7 [place] [address] Care Team Providers Care Service Delivery Supervisor Name Role Phone Amy Pickett MD Primary Care Pro vider Reason for Visit * Reason Onset Date Comments Med Refill 03/24/2025 Encounter Details Date Type Department Care Team (Late st Contact Info) Description 03/24/2025 Telephone [facility] MEDICINE 230 [place], [place] [phone] Amy Pickett MD 230 [place], [place] [phone] Med Refill Social History Tobacco Use Types [...] be sent to: [facility]/pharmacy #1972 - [address] documented in this encounter Plan of Treatment Upcoming Encounters Date Type Department Care Team (Late st Contact Info) Description 05/03/2025 11:00 AM EDT Office Visit [facility] MEDICINE [address] [place] [address] documented as of this encounter Visit Diagnoses Not on filedocumented in this encounter Additional Health Concerns Assessment Noted Time PHQ-9 Depression Total Score: 0 11/25/19 25 2:10 PM EDT documented as of this encounter Care Teams Service Delivery Supervisor Relationship Specialty Start Date End Date Amy Pickett MD [address] [place] [address] PCP - General Internal Medicine 04/07/23 documented as of this encounter
== END 2025-03-31 08:39 | disposition home or self-care (01) ==
LOC: HO.MRI 08:38
PROVIDERS: Visit Provider Physician Assistant
DX: M79.2 Neuralgia and neuritis, unspecified (principal); M50.90 Cervical disc disorder, unspecified, unspecified cervical region; M47.812 Spondylosis without myelopathy or radiculopathy, cervical region
CPT/HCPCS: 72141; 73221

== ENCOUNTER → 2025-03-31 08:54 | Outpatient (BNV) | payer OTHER, SELFPAY | PROVIDERS: Visit Provider Radiology Vascular & Interventional Radiology | DX: M50.122 Cervical disc disorder at C5-C6 level with radiculopathy (principal); M75.121 Complete rotator cuff tear or rupture of right shoulder, not specified as traumatic | CPT/HCPCS: 72141; 73221 ==

== ENCOUNTER 2025-03-31 10:00 | Emergency (ER) | payer OTHER, SELFPAY ==
[2025-03-31 10:06] VITALS: BP 181/99; PULSE 85; RESP 18; TEMP 36.8; O2SAT 98; BMI 30.9
--- NOTE | 2025-03-31 10:06 | ED.UPPEXIN ---
HPI - Extremity Injury (Upper) General Chief Complaint: Extremity Injury, Upper Stated Complaint: Shoulder pain Time Seen by Provider: 03/31/25 10:16 Source: patient and RN notes reviewed Mode of arrival: ambulatory Limitations: no limitations History of Present Illness ED Provider: Ailyn Wells PA-C HPI narrative: This is a 59 y/o M, with a hx of chronic right shoulder pain, who presents to the ER with complaints of chronic right shoulder pain. Reports no new injury or trauma. He is currently following up with [facility] for his shoulder. He had an MRI of his right shoulder this morning, however reports that his pain has been not well managed at home. He states that he was seen here several weeks ago and had good relief after receiving an IM injection of Toradol. he states that he is aware this comes in an oral form but his PCP will not prescribe it to him. He states that the pain is constant, and worsens with movement and with palpation. Denies any chest pain or SOB. Denies any other complaints or concerns at this time. MD complaint: injury to: right Onset (ago): month(s) Relieving factors: immobilization and rest Exacerbating factors: movement of extremity Associated symptoms: denies other symptoms Related Data Home Medications ?Medication ?Instructions ?Recorded ?Confirmed cholecalciferol (vitamin D3) 50 50 mcg PO DAILY 05/22/20 03/30/25 mcg (2,000 unit) capsule fluticasone propionate 220 1 puff inhalation BID 05/22/20 03/30/25 mcg/actuation HFA aerosol inhaler (Flovent HFA) oxycodone 15 mg tablet 15 mg PO Q6H 05/22/20 03/30/25 albuterol sulfate 2.5 mg/3 mL 1 vial inhalation QID 07/19/20 03/30/25 (0.083 %) solution for nebulization multivitamin (Daily-Petra tablet) 1 tab PO DAILY 07/19/20 03/30/25 divalproex 500 mg tablet,delayed 1,000 mg PO BID 08/29/21 03/30/25 release fluoxetine 20 mg capsule 20 mg PO DAILY 08/29/21 03/30/25 alprazolam 1 mg tablet 1 mg PO BID PRN Anxiety 10/08/21 03/30/25 escitalopram oxalate 20 mg tablet 20 mg PO QAM 06/26/22 03/30/25 magnesium oxide 400 mg (241.3 mg 400 mg PO DAILY 06/26/22 03/30/25 magnesium) tablet lisinopril 5 mg tablet 10 mg PO BID 07/17/22 03/30/25 nebulizers 08/29/22 03/23/25 atorvastatin 40 mg tablet 40 mg PO DAILY 10/15/24 03/30/25 clopidogrel 75 mg tablet 75 mg PO DAILY 10/15/24 03/30/25 cyanocobalamin (vitamin B-12) 1,000 mcg PO DAILY 10/15/24 03/30/25 1,000 mcg tablet hydroxyzine HCl 10 mg tablet 10 mg PO BID 10/15/24 03/30/25 loratadine 10 mg tablet 10 mg PO DAILY 10/15/24 03/30/25 olmesartan 20 mg tablet 20 mg PO DAILY 10/15/24 03/30/25 rimegepant 75 mg disintegrating 75 mg PO DAILY PRN 10/15/24 03/30/25 tablet (Nurtec ODT) Previous Rx's ?Medication ?Instructions ?Recorded tamsulosin 0.4 mg capsule 0.4 mg PO DAILY 30 days #30 caps 06/26/22 sumatriptan succinate 100 mg 100 mg PO .COMPLEX #14 tabs 03/20/23 tablet (Imitrex) fluticasone fur. 200 mcg-umeclid 1 inh inhalation DAILY 30 days #60 04/28/24 62.5 mcg-vilant 25 mcg ea inhalat.powder (Trelegy Ellipta) ipratropium 20 mcg-albuterol 100 1 puff inhalation QID 30 days #4 07/12/24 mcg/actuation mist for inhalation grams (Combivent Respimat) budesonide 0.5 mg/2 mL suspension 0.5 mg (2 mL) inhalation BID 30 10/14/24 for nebulization days #120 mL ipratropium 0.5 mg-albuterol 3 mg 3 ml inhalation BID 30 days #180 mL 10/14/24 (2.5 mg base)/3 mL nebulization soln nicotine 21 mg/24 hr daily 1 patch transdermal DAILY 28 days 10/14/24 transdermal patch #28 ea dexlansoprazole 60 mg 60 mg PO DAILY #90 caps 10/15/24 capsule,biphase delayed release dicyclomine 20 mg tablet 20 mg PO QID 30 days #120 tabs 10/15/24 famotidine 40 mg tablet 40 mg PO BEDTIME #90 tabs 10/15/24 ondansetron HCl 4 mg tablet 4 mg PO BID PRN for 11/22/24 nausea/vomiting #60 tabs cyclobenzaprine 5 mg tablet 5 mg PO Q8H PRN muscle spasm #20 03/17/25 tabs diclofenac sodium 1 % topical gel 4 g topical QID PRN pain (scale 03/30/25 score 4-6) #100 grams sumatriptan succinate 100 mg tablet See Rx Instructions PO .COMPLEX 04/02/25 #30 tabs Allergies Allergy/AdvReac Type Severity Reaction Status Date / Time cat dander (CATS) Allergy Unknown UNKNOWN Verified 04/02/25 09:34 dog dander (DOGS) Allergy Unknown UNKNOWN Verified 04/02/25 09:34 pollen extracts (POLLEN) Allergy Unknown UNKNOWN Verified 04/02/25 09:34 tree and shrub pollen Allergy sneeze Verified 04/02/25 09:34 ibuprofen AdvReac causes Verified 04/02/25 09:34 stomach to bleed Review of Systems Review of Systems: Constitutional : No Fever, No Chills ENT/Mouth : No sore throat, No Rhinorrhea Eyes: No Eye Pain, No Swelling, No Redness Cardiovascular : No Chest Pain, No SOB Respiratory : No Cough, No Sputum Gastrointestinal : No Nausea, No Vomiting, No Diarrhea, No abdominal Pain Genitourinary : No Dysuria, No Hematuria Musculoskeletal : + joint pain, No Myalgias, No Joint Swelling Skin : No Skin Lesions Neuro : No Weakness, No Numbness, No Headache All other systems reviewed and are negative Yes all other systems are reviewed and are negative Constitutional: Constitutional: Reports as per HPI [facility] Past Medical History Medical History (Updated 04/03/25 @ 00:00 by Background Daemon) Ganglion cyst Chest pain Nicotine dependence, cigarettes, uncomplicated Nausea and vomiting Dyspnea Photophobia Headache Syncope Dysphagia Seizure Lipoma of back STEPHON (obstructive sleep apnea) COPD (chronic obstructive pulmonary disease) Post herpetic neuralgia Multiple lipomas Osteoarthritis Gout History of peptic ulcer disease Hx of irritable bowel syndrome Chronic back pain Hx of insomnia History of panic attacks History of anxiety History of depression Asthma High cholesterol Hypertension Urinary retention Enlarged prostate Arthritis Slow urinary stream Marijuana use Alcohol abuse H/O ulcer disease Left flank pain Trochanteric bursitis, left hip Epidermal cyst Abdominal wall bulge Esophageal dysphagia Esophageal spasm Short frenulum of penis Balanitis Elevated blood pressure reading in office with diagnosis of hypertension Thalamic pain syndrome Abnormal loss of weight Painful orthopaedic hardware Pain in unspecified toe(s) Incisional pain Surgical History S/P placement of nerve stimulator H/O neck surgery Hx of arthroscopy of left knee H/O breast surgery S/P excision of lipoma History of bunionectomy History of cystoscopy History of colonoscopy History of esophagogastroduodenoscopy (EGD) Family History Family History Family/Other Cancer Diabetes AIDS Brother Diabetes Myocardial infarction Father Enlarged prostate Mother Diabetes Asthma Social History Social History Are you a primary lpn care manager to a significant other at home: No Do you presently have visiting nurse or other home services: No Alcohol intake: never Patient Tobacco Use Status: Current everyday Tobacco user Cigarettes Per Day: 4 Years Smoked: (onset 16yo, 1ppd x 42yrs, now 1/2ppd - 40pyh) Smoked in Last 30 Days: No Use of substances other than those prescribed or required for medical reasons: No Substance Use Type: Marijuana Advance Directives: No Advance Directives Information Provided: No service: No Current occupational status: unemployed Physical Exam Exam: Exam: General: Awake, alert, and oriented X3. No acute distress. HEENT: Normal inspection CVS: Normal heart rate and rhythm. Pulses normal. Respiratory: No respiratory distress Skin: Warm, dry, no rashes noted to exposed skin. Normal skin color. Normal skin turgor. Extremities: right shoulder with no obvious bony deformity or swelling. Pain throughout entirity of joint. No clavicular pain. No overlying skin changes. Capillary refill <2 seconds. sensation intact. Able to Abduct and adduct right shoulder to approximately 30 degrees Neuro: Oriented X 3. No motor deficit. No sensory deficit. Vital Signs: Vital Signs: Last Vital Signs Temp 98.3 F 03/31/25 10:49 Pulse 85 03/31/25 10:49 Resp 18 03/31/25 10:49 BP 181/99 H 03/31/25 10:49 Pulse Ox 98 03/31/25 10:49 O2 Del Method Room Air 03/31/25 10:49 BMI result Body Mass Index 30.9 Medications Administered Discontinued Medications Generic Name Dose Route Start Last Admin Trade Name Freq PRN Reason Stop Dose Admin Ketorolac Tromethamine 15 mg 03/31/25 10:23 03/31/25 10:30 Ketorolac Tromethamine 15 Mg/Ml Vial IM 03/31/25 10:24 15 mg ONCE ONE Administration Medical Decision Making Medical Decision Making [facility] Narrative: This is a [id number]-male who presents to the ER with complaints of chronic right shoulder pain. No new injury or trauma. DDX including arthritis, rotatory cuff injury, adhesive capsulitis, fx, sprain, strain. Given patient has had no recent injury or trauma, we are defering imaging at this time as he also already had MRI this morning - which has yet to be read by a radiologist. He had good relief with toradol IM in the past therefore I am happy to medicate him here in the ED. He is hoping to be d/c on toradol orally, however pt has had hx of bleeding stomach ulcers due to ibuprofen usage, therefore I believe that this would not be in his best interest, and I encouraged patient to continue taking tylenol for his symptoms. He will f/u with his orthopedist. He has no chest pain or shortness of breath. Pt stable for d.c. Differential Diagnosis Differential Diagnoses: The differential diagnosis associated with the presentation includes see above Discharge Plan Discharge Clinical Impression: Chronic pain in right shoulder Patient Disposition: Home, Self-Care Instructions: Arthralgia (ED), Shoulder Pain (ED) Additional Instructions: You were seen in the emergency department due to chronic right shoulder pain. Please follow-up with [facility]. Continue taking Tylenol 500 mg to 1000 mg every 8 hours. Gentle stretching, heat or ice can also be beneficial. If any new or worsening symptoms occur including but not limited to severe chest pain or shortness of breath, please seek emergent care. Prescriptions: No Action sumatriptan succinate [Imitrex] 100 mg tablet 100 mg PO .COMPLEX Qty: 14 3RF Rx Instructions: 100 mg orally; ondansetron HCl 4 mg tablet 4 mg PO BID PRN (Reason: for nausea/vomiting) Qty: 60 0RF multivitamin [Daily-Petra] Tablet 1 tab PO DAILY albuterol sulfate 2.5 mg /3 mL (0.083 %) solution for nebulization 1 vial inhalation QID alprazolam 1 mg tablet 1 mg PO BID PRN (Reason: Anxiety) lisinopril 5 mg tablet 10 mg PO BID cyclobenzaprine 5 mg tablet 5 mg PO Q8H PRN (Reason: muscle spasm) Qty: 20 0RF sumatriptan succinate 100 mg tablet See Rx Instructions .ROUTE .COMPLEX Qty: 30 0RF Rx Instructions: take 1 tab at onset of headache; if no relief, may repeat 1 tab after at least 2 hrs; max = 2 tabs/24 hrs oxycodone 15 mg tablet 15 mg PO Q6H cholecalciferol (vitamin D3) 50 mcg (2,000 unit) capsule 50 mcg PO DAILY Flovent HFA 220 mcg/actuation HFA aerosol inhaler 1 puff inhalation BID fluoxetine 20 mg capsule 20 mg PO DAILY divalproex 500 mg tablet,delayed release (DR/EC) 1,000 mg PO BID magnesium oxide 400 mg (241.3 mg magnesium) tablet 400 mg PO DAILY escitalopram oxalate 20 mg tablet 20 mg PO QAM tamsulosin 0.4 mg capsule 0.4 mg PO DAILY 30 Days Qty: 30 3RF (DME) nebulizers [facility] [place] [facility] See Rx Instructions .Route Rx Instructions: As directed Trelegy Ellipta 200-62.5-25 mcg blister with device 1 inh inhalation DAILY 30 Days Qty: 60 12RF Combivent Respimat 20-100 mcg/actuation mist 1 puff inhalation QID 30 Days Qty: 4 11RF olmesartan 20 mg tablet 20 mg PO DAILY hydroxyzine HCl 10 mg tablet 10 mg PO BID atorvastatin 40 mg tablet 40 mg PO DAILY cyanocobalamin (vitamin B-12) 1,000 mcg tablet 1,000 mcg PO DAILY Nurtec ODT 75 mg tablet,disintegrating 75 mg PO DAILY PRN clopidogrel 75 mg tablet 75 mg PO DAILY loratadine 10 mg tablet 10 mg PO DAILY dexlansoprazole 60 mg capsule,biphase delayed releas 60 mg PO DAILY Qty: 90 1RF famotidine 40 mg tablet 40 mg PO BEDTIME Qty: 90 2RF dicyclomine 20 mg tablet 20 mg PO QID 30 Days Qty: 120 6RF diclofenac sodium 1 % gel 4 g topical QID PRN (Reason: pain (scale score 4-6)) Qty: 100 3RF Rx Instructions: apply to right shoulder area as needed for pain nicotine 21 mg/24 hr patch 24 hour 1 patch transdermal DAILY 28 Days Qty: 28 4RF ipratropium-albuterol 0.5 mg-3 mg(2.5 mg base)/3 mL solution for nebulization 3 ml inhalation BID 30 Days Qty: 180 11RF budesonide 0.5 mg/2 mL suspension for nebulization 0.5 mg inhalation BID 30 Days Qty: 120 11RF Interventions: ED Discharge Assessment Last Done: 03/31/25 10:49 Discharge Date/Time: 03/31/25 10:49 Print Language: Japanese
[2025-03-31 10:49] VITALS: BP 181/99; PULSE 85; RESP 18; TEMP 36.8; O2SAT 98
== END 2025-03-31 10:49 | disposition home or self-care (01) ==
PROVIDERS: Emergency Provider Emergency Medicine; PCP Student in an Organized Health Care Education/Training Program
DX: M25.511 Pain in right shoulder (principal); G89.29 Other chronic pain; I10 Essential (primary) hypertension; J44.9 Chronic obstructive pulmonary disease, unspecified; F17.210 Nicotine dependence, cigarettes, uncomplicated; Z79.899 Other long term (current) drug therapy
CPT/HCPCS: 96372; 99283; 99284; J1885

== ENCOUNTER 2025-04-02 09:11 | Emergency (ER) | payer OTHER, SELFPAY ==
--- OUTSIDE RECORDS SUMMARY | 2025-03-29 09:45 | XMS_ITS | Encounter Summary ---
Author Organization [employer] Address [address] [facility] [address] 7t [place] [address] Care Team Providers Care Polisher And Buffer Name Role Phone Amy Pickett MD Primary Care Pro vider Reason for Visit * Reason Comments BRICK OR BLOCK MAKER Encounter Details Date Type Department Care Team (Latest Contact Info) Description 03/29/2025 9:45 AM EDT Clinical Support [facility] MEDICINE 230 [place] [address] 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 RN 505 [place] [address] Chronic right shoulder pain (Primary Dx) Social [...] Group Topic: Behavioral Health Presenter: Bridgette Shearer, [facility] Team DUE FOR BRICK OR BLOCK MAKER, has been experiencing increase in pain related to recent urology procedure where device was removed in order to complete MRI. -used to see ALEXA at [facility] # -per pt seen in 06/2024 states was seen but not recommended surgery --I called today [facility] NS today to reeval surgery option [...] as prescribed. Specialists: Saw RUBEN Padilla at [facility] 11/17/23 for lower back radiculopathy Scheduled to see NSG Dr. 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 Seen by Neurosurgery at [facility], note pending Referred to Pain Management November 2024 Current Assessment & Plan -Good engagement and participation with Group Medical Visit model -Encouraged multifactorial approach to pain control including pharm and non- pharm modalities -Pill count as expected, Utox pos cocaine. Confirmatory testing sent. See clinical documentation spec. Relevant Orders Drug Monitoring, Cocaine Metabolite, Quantitative, [...] Description 05/03/2025 11:00 AM EDT Office Visit [facility] MEDICINE [address] [place] [address] documented as of this encounter Procedures Procedure [...] - 03/29/2025 10:07 AM EDT .UTOX cup Lot#[id number] Exp. 04/12/26 Internal Pass Control Amy Berry MD POINT OF CARE SOHA T ENTER/EDIT ORDERABLES Final Result documented in this encounter Visit Diagnoses Diagnosis Chronic right shoulder pain- Primary Pain in joint, shoulder region documented in this encounter Additional Health Concerns Assessment Noted Time PHQ-9 Depression Total Score: 0 11/25/19 25 2:10 PM EDT documented as of this encounter Care Teams Polisher And Buffer Relationship Specialty Start Date End Date Amy Pickett MD [address] [place] [address] PCP - General Internal Medicine 04/07/23 documented as of this encounter
[2025-04-02 09:34] VITALS: BP 174/93; PULSE 87; RESP 16; TEMP 36.1; O2SAT 96; BMI 27.7
--- OUTSIDE RECORDS SUMMARY | 2025-04-02 09:49 | XMS_ITS | Encounter Summary ---
Author Organization [employer] Address [address] [place] [address] 7 [place] [address] Care Team Providers Care Timber Watchman Name Role Phone Amy Pickett MD Primary Care Pro vider Reason for Visit * Reason Onset Date Comments Med Refill 05/13/2024 Encounter Details Date Type Department Care Team ([facility] st Contact Info) Description 05/13/2024 Telephone [facility] [address] [place], [place] [phone] Amy Pickett MD [address] [place], [place] [phone] Med Refill Social History Tobacco [...] to: [facility]/pharmacy #[id number] - [address] documented in this encounter Plan of Treatment Upcoming Encounters Date Type Department Care Team (Late st Contact Info) Description 05/03/2025 11:00 AM EDT Office Visit [facility] [address] [place], [place] [phone] documented as of this encounter Visit Diagnoses Not on filedocumented in this encounter Additional Health Concerns Assessment Noted Time PHQ-9 Depression Total Score: 10 024 9:41 AM EDT documented as of this encounter Care Teams Timber Watchman Relationship Specialty Start Date End Date Amy Pickett MD [address] [place], [place] [phone] PCP - General Internal Medicine 04/07/23 documented as of this encounter
--- OUTSIDE RECORDS SUMMARY | 2025-04-02 09:49 | XMS_ITS | Encounter Summary ---
Author Organization [employer] Address [address] [place] [address] 7 [place] [address] Care Team Providers Care Ball Mill Operator Name Role Phone Amy Pickett MD Primary Care Pro vider Reason for Visit * Reason Onset Date Comments call back requesting 03/03/2025 Encounter Details Date Type Department Care Team ([facility] st Contact Info) Description 03/03/2025 Telephone [facility] [address] [place], [place] [phone] Amy Pickett MD [address] [place] [address] call back requesting Social History Tobacco Use [...] the pt and spoke with the pt PRINCIPAL EMBEDDED SOFTWARE ENGINEER Domenica (HIPAA compliant) in regards to the [...] device. Domenica called the pt urologist at [facility] for guidance as the [...] out of he's body. Contact pt at [phone] documented in this encounter Plan of Treatment Upcoming Encounters Date Type Department Care Team (Late st Contact Info) Description 05/03/2025 11:00 AM EDT Office Visit [facility] [address] [place] [phone] documented as of this encounter Visit Diagnoses Not on filedocumented in this encounter Additional Health Concerns Assessment Noted Time PHQ-9 Depression Total Score: 0 11/25/19 25 2:10 PM EDT documented as of this encounter Care Teams Ball Mill Operator Relationship Specialty Start Date End Date Amy Pickett MD [address] [place] [id number] PCP - General Internal Medicine 04/07/23 documented as of this encounter
--- OUTSIDE RECORDS SUMMARY | 2025-04-02 09:49 | XMS_ITS | Encounter Summary ---
Author Organization [employer] Address [address] [facility] [address]t [place] [address] Care Team Providers Care Roving Hand Name Role Phone Amy Pickett MD Primary Care Pro vider Encounter Details Date Type Department Care Team ([facility] st Contact Info) Description 09/01/2024 Telephone [facility] [address] [place], [place] [phone] Amy Pickett MD [address] [place], [place] [phone] Social History Tobacco Use Types Packs/Day Years [...] your housing situation today? I have claudio medraon 05/14/[address] you li [...] Description 05/03/2025 11:00 AM EDT Office Visit [facility] [address] [place] [address] documented as of this encounter Visit Diagnoses Not on filedocumented in this encounter Additional Health Concerns Assessment Noted Time PHQ-9 Depression Total Score: 10 024 9:41 AM EDT documented as of this encounter Care Teams Roving Hand Relationship Specialty Start Date End Date Amy Pickett MD [address] [place] [id number] PCP - General Internal Medicine 04/07/23 documented as of this encounter
--- OUTSIDE RECORDS SUMMARY | 2025-04-02 09:49 | XMS_ITS | Encounter Summary ---
Author Organization [employer] Address [address] [place] [address] 7 [place] [address] Care Team Providers Care Sleep Tech Name Role Phone Amy Pickett MD Primary Care Pro vider Reason for Visit * Reason Onset Date Comments Med Refill 04/09/2024 Encounter Details Date Type Department Care Team (Late st Contact Info) Description 04/09/2024 Telephone [facility] [address] [place], [place] [phone] Amy Pickett MD [address] [place], [place] [phone] Med Refill Social History Tobacco Use Types [...] immediate release tablet To be sent to: [facility]/pharmacy #[id number] - [address] documented in this encounter Plan of Treatment Upcoming Encounters Date Type Department Care Team (Late st Contact Info) Description 05/03/2025 11:00 AM EDT Office Visit [facility] [address] [place] [address] documented as of this encounter Visit Diagnoses Not on filedocumented in this encounter Additional Health Concerns Assessment Noted Time PHQ-9 Depression Total Score: 10 024 9:41 AM EDT documented as of this encounter Care Teams Sleep Tech Relationship Specialty Start Date End Date Amy Pickett MD [address] [place] [address] PCP - General Internal Medicine 04/07/23 documented as of this encounter
--- OUTSIDE RECORDS SUMMARY | 2025-04-02 09:49 | XMS_ITS | Clinical Summary ---
Author Organization [facility] Address [address] [place] [address] Care Team Providers Care Scrubber System Attendant Name Role Phone Donna Harmon MD Primary [...] Sigmoidoscopy 12/23/2016 Influenza Vaccine (#1) 2025 Insurance [facility] RUBEN JAIMES [phone] Care Teams Scrubber System Attendant Relationship Specialty Start Date End Date Donna Harmon MD PCP - General 05/11/19
--- OUTSIDE RECORDS SUMMARY | 2025-04-02 09:49 | XMS_ITS | Clinical Summary ---
Author Organization [employer] Address [address] [place] [address] Care Team Providers Care Industrial Automation Specialist Name Role Phone Ba Maria MD Primary Care Provider Surgical History Surgery Date Site/Laterality Comments FOOT SURGERY PROCEDURE: DC UNLISTED PROCEDURE FOOT/TOES; COMMENT: left foot bunion removal LIPOMA RESECTION PROCEDURE: SKIN TISSUE EXCISION(LIPOMA) OTHER SURGICAL HISTORY PROCEDURE: ---- OTHER ----; COMMENT: urethral surgeries done? three [facility] for difficulty urinating Medical History Medical History Date Comments Chronic back pain DX:Chronic alonso k pain Asthma DX:Asthma Anxiety DX:Anxiety; COMM ENT: follows at [facility] Family History Medical History Relation [...] age to complete this topic Care Teams Industrial Automation Specialist Relationship Specialty Start Date End Date Ba Maria MD PCP - General Internal Medicine 10/26/12
--- OUTSIDE RECORDS SUMMARY | 2025-04-02 09:49 | XMS_ITS | Encounter Summary ---
Author Organization [employer] Address [address] [facility] 7t [place] [address] Care Team Providers Care Head Turning Machine Operator Name Role Phone Amy Pickett MD Primary Care Pro vider Encounter Details Date Type Department Care Team ([facility] st Contact Info) Description 09/01/2024 Telephone [facility] [address] [place], [place] [phone] Amy Pickett MD [address] [place], [place] [phone] Social History Tobacco Use Types Packs/Day Years [...] Office Visit [facility] [address] [place] [address] documented as of this encounter Visit Diagnoses Not on filedocumented in this encounter Additional Health Concerns Assessment Noted Time PHQ-9 Depression Total Score: 10 024 9:41 AM EDT documented as of this encounter Care Teams Head Turning Machine Operator Relationship Specialty Start Date End Date Amy Pickett MD [address] [place] [id number] PCP - General Internal Medicine 04/07/23 documented as of this encounter
--- OUTSIDE RECORDS SUMMARY | 2025-04-02 09:50 | XMS_ITS | Encounter Summary ---
Author Organization [employer] Address [address] [place] [address] [address] [place] [address] Care Team Providers Care Plant Operations Manager Name Role Phone Amy Pickett MD Primary Care Pro vider Reason for Visit * Reason Onset Date Comments Med Refill 08/06/2024 Encounter Details Date Type Department Care Team ([facility] st Contact Info) Description 08/06/2024 Telephone [facility] MEDICINE [address], [place] [phone] Amy Pickett MD [address] [place], [place] [phone] Med Refill Social History Tobacco Use Types [...] 0.083% nebulizer solution To be sent to: [facility]/pharmacy #[id number] - [address] documented in this encounter Plan of Treatment Upcoming Encounters Date Type Department Care Team (Late st Contact Info) Description 05/03/2025 11:00 AM EDT Office Visit [address] [phone] documented as of this encounter Visit Diagnoses Not on filedocumented in this encounter Additional Health Concerns Assessment Noted Time PHQ-9 Depression Total Score: 10 024 9:41 AM EDT documented as of this encounter Care Teams Plant Operations Manager Relationship Specialty Start Date End Date Amy Pickett MD [address] [place] [id number] PCP - General Internal Medicine 04/07/23 documented as of this encounter
--- OUTSIDE RECORDS SUMMARY | 2025-04-02 09:50 | XMS_ITS | Encounter Summary ---
Author Organization [employer] Address [address] [place] [address] [address] [place] [address] Care Team Providers Care Engine Service Repairer Name Role Phone Amy Pickett MD Primary Care Pro vider Reason for Visit * Reason Onset Date Comments Med Refill 10/27/2024 Encounter Details Date Type Department Care Team ([facility] st Contact Info) Description 10/27/2024 Telephone [facility] MEDICINE [address] [place], [place] [phone] Amy Pickett MD [address] [place], [place] [phone] Med Refill Social History Tobacco Use Types [...] tablet To be sent to: [facility]/pharmacy #[id number] - [address] documented in this encounter Plan of Treatment Upcoming Encounters Date Type Department Care Team (Late st Contact Info) Description 05/03/2025 11:00 AM EDT Office Visit [facility] MEDICINE [address] [place] [address] documented as of this encounter Visit Diagnoses Not on filedocumented in this encounter Additional Health Concerns Assessment Noted Time PHQ-9 Depression Total Score: 10 024 9:41 AM EDT documented as of this encounter Care Teams Engine Service Repairer Relationship Specialty Start Date End Date Amy Pickett MD [address] [place] [address] PCP - General Internal Medicine 04/07/23 documented as of this encounter
--- OUTSIDE RECORDS SUMMARY | 2025-04-02 09:50 | XMS_ITS | Clinical Summary ---
Author Organization [employer] Address [address] [place] [address] 7[address] [place] [address] Care Team Providers Care Silk Screen Printing Racker Name Role Phone Amy Pickett MD Primary [...] 022 Active Nebulizers (Comp-Air Elite Compact Neb) [facility] Active Blood Pressure Monitor kit 1 each [...] vomiting. 60 tablet 1 023 Active pancrelipase, Uop-Lczy-Ocfe, (Creon) 0282-8632 units capsule Take 1 capsule by mouth [...] oxyCODONE (Roxicodone) 15 MG immediate release tabletIndicatio ns:CARD SELLER checked 06/13/22 Take 1 tablet (15 mg) [...] oxyCODONE (Roxicodone) 15 MG immediate release tabletIndicatio ns:CARD SELLER checked 06/13/22 Take 1 tablet (15 mg) [...] recommended. -Supportive care advised. -Isolation recommendations discussed. [facility] 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 2023 Overview (01/25/2025): Dx: chronic neck, low back pain, LE claudication Rx: Oxycodone 15mg IR q 6 hours Last [employer] agreement: 09/28/24 Tier: 1 (monthly [employer] visits) Additional considerations: Alprazolam 1mg for anxiety Assessment & Plan (01/25/2025 1:45 PM EDT): Timeline: -previous positive utox for cocaine 11/2023 -09/28/24: Group - utox/pill count wnl -01/25/25: Group - Pill count as expected, Utox pos cocaine. Confirmatory testing sent. Chronic obstructive pulmonar y disease, unspecified COPD type 05/16/2024 Overview (09/05/2024): Following with [facility] pulmonology-Dr. Maldonado Continue with Combivent inhaler Claudication [...] Injections 11/2022 Encouraged stretching Will refer to [facility] Continue [employer] at this time. Will perform random Utox [...] Utox pos cocaine. Confirmatory testing sent. 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 Assessment & Plan (09/28/2024 2:02 PM EDT): [...] C7 fracture seen on CT scan at [facility] 10/28/23 He participated fully in group [...] C7 fracture seen on CT scan at [facility] 10/28/23 He participated fully in group [...] Injections 11/2022 Encouraged stretching Will refer to [facility] physical therapy Continue [employer] at this time. Will perform random Utox [...] lumbar pain. Encouraged stretching Will refer to [facility] Continue [employer] at this time. Will perform random Utox [...] organization. Date Type Department Care Team Description 03/31/2025 Orders Only [facility] External Provider, [facility] 03/29/2025 9:45 AM EDT Clinical Support [facility] [address] [place] [phone] 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 RN Chronic right shoulder pain (Primary Dx) 03/29/2025 Telephone [facility] [address] [place] [address] 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 RN 03/29/2025 Orders Only [facility] MEDICINE [address] [place] [address] Amy Pickett MD Chronic right shoulder pain (Primary Dx) 03/29/2025 Telephone [facility] [address] [place] [address] 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 RN 03/29/2025 Travel 03/24/2025 Refill [facility] [address] [place] [address] 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 RN Chronic pain of both knees; Chronic low back pain, unspecified back pain laterality, unspecified whether sciatica present 03/24/2025 Refill [facility] [address] [place] [address] Amy Pickett MD Moderate persistent asthma without complication 03/24/2025 Telephone [facility] [address] [place] [address] Amy Pickett MD Med Refill 03/22/2025 Orders Only [facility] External Provider, [facility] 03/18/2025 Orders Only [facility] [address] [place] [address] Amy Pickett MD 03/18/2025 Telephone [facility] [address] [place] [address] Amy Pickett MD Change PCP 03/18/2025 Telephone [facility] [address] [place] [address] 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, RN 03/17/2025 Orders Only [facility] [address] [place] [address] Amy Pickett MD 03/17/2025 Telephone [facility] [address] [place] [address] Amy Pickett MD Nurse Triage 03/17/2025 Telephone [facility] [address] [place] [address] Amy Pickett MD Medication Question 03/16/2025 Telephone [facility] [address] [place] [address] 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, RN 03/16/2025 Telephone [facility] [address] [place] [address] Amy Pickett MD FYI 03/08/2025 Orders Only [facility] [address] [place] [address] Amy Pickett MD 03/08/2025 Telephone [facility] [address] [place] [address] 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, RN 03/05/2025 Refill [facility] [address] [place] [address] Amy Pickett MD Chronic low back pain, unspecified back pain laterality, unspecified whether sciatica present 03/03/2025 Telephone [facility] [address] [place] [phone] Amy Pickett MD Durable Medical Equipment 03/03/[address] [address] Amy Pickett MD call back requesting 03/01/2025 9:10 AM EDT Clinical Support [address] [address] 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, DARIANA [facility] 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 03/01/2025 Orders Only [address] [address] Amy Pickett MD 03/01/2025 Telephone [facility] [address] [place] [address] 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, DARIANA 03/01/2025 Travel 02/24/2025 Refill [facility] [address] [place] [address] 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, courier pain of both knees; Chronic low back pain, unspecified back pain laterality, unspecified whether sciatica present 02/24/[address] [address] Amy Pickett MD med 02/24/[address] [address] Amy Pickett MD Med Refill 02/19/2025 Refill [facility] [address] [place] [address] Amy Pickett MD 02/10/2025 9:30 AM EDT Office Visit [address] [address] Amy Pickett MD Cervical spondylosis without myelopathy (Primary Dx); Chronic migraine without aura without status migrainosus, not intractable; Essential hypertension; H/O lipoma; Mass of wrist, right; Claudication of left lower extremity (CMS/HCC); Health care maintenance; Lipoma, unspecified site; 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; Chronic right shoulder pain; Spondylosis of cervical spine 02/10/2025 Telephone [facility]INE [address] [place] [address] Amy Pickett MD Change PCP; TRANSFER REQUEST 02/10/2025 Travel 02/08/2025 Refill [facility] WALK[facility] [address] [place] [address] Amy Pickett MD 02/03/2025 Refill [facility] [address] [place] [phone] Bri Noriega MD 02/01/[address] [address] Amy Pickett MD Durable Medical Equipment 01/27/2025 Orders Only [facility] External Provider, [facility] 01/25/2025 9:45 AM EDT Office Visit [address] [address] Holly Wills, KENDRA Spondylosis of cervical spine (Primary Dx); 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 01/25/2025 Telephone [facility] [address] [place] [address] 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 RN 01/25/2025 Travel 01/21/[address] [address] Amy Pickett MD Chronic pain of both knees; Chronic low back pain, unspecified back pain laterality, unspecified whether sciatica present 01/11/2025 Refill [facility] [address] [place] [address] Brent Hanson MD 01/10/[address] [address] Amy Pickett MD TP request from Last 3 Months Immunizations Immunization Administration [...] Visit [facility] [address] [place] [phone] Health Maintenance Due Date Last Done Comments [...] Procedure Name Priority Date/Time Associated Diagnosis Comments MR CERVICAL SPINE WO CONTRAST Routine 04/01/2025 11:36 AM EDT POCT ROBIN-14 URINE DRUG SCREEN Routine 03/29/2025 10:07 AM EDT Chronic right shoulder pain XR PELVIS 1-2 VIEWS Routine 03/22/2025 1 :32 PM EDT POCT ROBIN-14 URINE DRUG SCREEN Routine 03/01/2025 10:10 AM EDT [facility] 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 DRUG MONITOR, COCAINE METAB, QN, URINE Routine 03/01/2025 9:32 AM EDT XR WRIST 3+ VIEWS RIGHT Routine 01/27/2025 11:18 AM EDT XR ELBOW 1-2 VIEWS RIGHT Routine 01/27/2025 11:13 AM EDT XR SHOULDER 2+ VIEWS RIGHT Routine 01/27/2025 11:06 AM EDT POCT ROBIN-14 URINE DRUG SCREEN Routine 01/25/2025 10:15 AM EDT Spondylosis of cervical spine [facility] 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 DRUG MONITOR, COCAINE METAB, QN, URINE Routine 01/25/2025 9:30 AM EDT Spondylosis of cervical spine [facility] 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 HEPATITIS C [...] Recently Relevant to Health Maintenance Results * MR Cervical Spine w/o Contrast (04/01/2025 11:36 AM EDT) Anatomical Region Laterality Modality Spine, C-spine Magnetic Resonan ce 04/01/2025 11:3 6 AM EDT Narrative 04/01/2025 11:37 AM EDT [address] [address] Magnetic Resonance Report Signed Patient: Zain Welch MR# : [id number] : 1965 Acct:[id number] Age/Sex: 59 / M ADM Date: 03/31/25 Loc: HO.MRI Attending Dr: Juan David MIRANDA Ordering Physician: Rosangela Cole CNP Date of Service: 03/31/25 Procedure(s): MR cervical spine wo con Accession Number(s): [id number] cc: Rosangela Cole CNP; Amy Pickett MD Reason for Exam: M79.2 - Neuralgia and neuritis, unspecified CLINICAL HISTORY: M79.2 - Neuralgia and neuritis, unspecified MR cervical spine without gadolinium Comparison: None provided Findings: Mild expected postsurgical straightening of the cervical lordosis. Fusion hardware at C5-C6 appears intact by MR. No acute fracture or acute malalignment. Prevertebral and paravertebral soft tissues are unremarkable. Mild multilevel disc desiccation and disc space narrowing. Visualized portions of the posterior fossa are unremarkable. Individual levels: C2-C3: Small left eccentric disc protrusion. No significant central canal stenosis or neural foraminal narrowing. C3-C4: No significant central canal stenosis or neural foraminal narrowing. C4-C5: Small posterior disc protrusion with mild bilateral neural foraminal narrowing. No central canal stenosis. C5-C6: Small posterior disc protrusion. Mild gtgk-ejkjiab-prjf-right neural foraminal narrowing. No significant central canal stenosis. C6-C7: Hhkyp-yk-fvmmmuop posterior disc protrusion. Moderate bilateral neural foraminal narrowing. Minimal central canal narrowing. C7-T1: Small left eccentric disc protrusion with mild left neural foraminal narrowing. Impression: Postsurgical and degenerative changes as detailed. This document has been electronically signed by: Gerson Puckett MD on 04/01/2025 11:36:17 Dictated By: Gerson Puckett MD Signed By: <Electronically signed by Gerson Puckett MD in OV> 04/01/25 1137 DD/ 1136 TD/TT: 04/01/25 1136 Paver: Procedure Note Donotuseinterpreter, Image - 04/01/2025 [place] [address] Magnetic Resonance Report Signed Patient: Zain Welch LMR# : [id number] : 1965Acct:[id number] Age/Sex: 59 / MADM Date: 03/31/25 Loc: HO.MRI Attending Dr: Juan David MIRANDA Ordering Physician: Rosangela Cole CNP Date of Service: 03/31/25 Procedure(s): MR cervical spine wo con Accession Number(s): [id number] cc: Rosangela Cole CNP; Amy Pickett MD Reason for Exam: M79.2 - Neuralgia and neuritis, unspecified CLINICAL HISTORY: M79.2 - Neuralgia and neuritis, unspecified MR cervical spine without gadolinium Comparison: None provided Findings: Mild expected postsurgical straightening of the cervical lordosis. Fusion hardware at C5-C6 appears intact by MR. No acute fracture or acute malalignment. Prevertebral and paravertebral soft tissues are unremarkable. Mild multilevel disc desiccation and disc space narrowing. Visualized portions of the posterior fossa are unremarkable. Individual levels: C2-C3: Small left eccentric disc protrusion. No significant central canal stenosis or neural foraminal narrowing. C3-C4: No significant central canal stenosis or neural foraminal narrowing. C4-C5: Small posterior disc protrusion with mild bilateral neural foraminal narrowing. No central canal stenosis. C5-C6: Small posterior disc protrusion. Mild umqr-zhrsktl-rjsk-right neural foraminal narrowing. No significant central canal stenosis. C6-C7: Surbz-ir-mnvonipg posterior disc protrusion. Moderate bilateral neural foraminal narrowing. Minimal central canal narrowing. C7-T1: Small left eccentric disc protrusion with mild left neural foraminal narrowing. Impression: Postsurgical and degenerative changes as detailed. This document has been electronically signed by: Gerson Puckett MD on 04/01/2025 11:36:17 Dictated By: Gerson Puckett MD Signed By: <Electronically signed by Gerson Puckett MD in OV> 04/01/25 1137 DD/ 1136 TD/TT: 04/01/25 1136 Paver: [facility] External Provider IMG MRI PROCEDURES Final Result * (ABNORMAL) POCT ROBIN-14 Urine Drug Screen [...] - 03/29/2025 10:07 AM EDT .UTOX cup Lot#[id number] Exp. 04/12/26 Internal Pass Control Amy Berry MD POINT OF CARE SOHA T ENTER/EDIT ORDERABLES Final Result * XR Pelvis 1-2 Views (03/22/2025 1:32 PM EDT) Anatomical Region Laterality Modality Body, Pelvis Radiographic Maxine ging 03/22/2025 1:32 PM EDT Narrative 03/22/2025 1:45 PM EDT [address] [place] [address] XRay Report Signed Patient: Zain Welch MR# : [id number] : 1965 Acct:[id number] Age/Sex: 59 / M ADM Date: 03/22/25 Loc: HO.XRAY Attending Dr: Salvador Elliott MD Ordering Physician: Salvador Elliott MD Date of Service: 03/22/25 Procedure(s): XR pelvis 1-2V Accession Number(s): [id number] cc: Salvador Elliott MD; mAy Pickett MD Reason for Exam: BLADDER STIMULATOR [...] 03/22/25 1343 DD/ 1332 TD/TT: 03/22/25 1335 Paver: Procedure Note Donotuseinterpreter, Image - 03/22/[address] [address] XRay Report Signed Patient: Zain Welch LMR# : [id number] : 1965Acct:[id number] Age/Sex: 59 / MADM Date: 03/22/25 Loc: LAYLA Attending Dr: Salvador Elliott MD Ordering Physician: Salvador Elliott MD Date of Service: 03/22/25 Procedure(s): XR pelvis 1-2V Accession Number(s): [id number] cc: Salvador Elliott MD; Amy Pickett MD [...] 03/22/25 1343 DD/ 1332 TD/TT: 03/22/25 1335 Paver: [facility] External Provider IMG XR PROCEDURES Edited Result - Final * Drug Monitoring, Cocaine Metabolite, Quantitative, Urine (03/01/2025 9:32 AM EDT) Only the most recent of2 resultswithin the time period is included. Benzoylecgonine [address] [facility] Comment:CUTOFF 100NG/MLPERFO RMING SITE:[employer] [facility], [address] [place], [place] [id number] Rn Community: MICHELLE GAUTAM MD, CLIA:[id number] Cocaine Comments SEE NOTE [facility] Comment:This drug testing is for medical treatment only. Analysiswas performed as non-forensic testing and these resultsshould be used only by healthcare providers torender diagnosis or treatment, or to monitor progress ofmedical conditions.Cocaine Notes:Benzoylecgonine detected is consistent with the use of thedrug Cocaine.LDT Notes:Confirmation tests were developed and their analyticalperformance characteristics have been determined by [employer]. It has not been cleared orapproved by the FDA. This assay has been validated pursuantto the CLIA regulations and is used for clinical purposes.Healthcare Providers needing Interpretation assistance,please contact us at [phone] ( ) M-F,8am to 10pm EST 03/01/2025 9:32 AM EDT 03/01/2025 1:39 PM EDT us Amy Berry MD LAB URINE ORDERAB LES Final Result [facility] [address] [place] [address] [phone] * XR Wrist 3+ Views Right (01/27/2025 11:18 AM EDT) Anatomical Region Laterality Modality Upper Extremities, Wrist Right Radiogr aphic Imaging 01/27/2025 11:1 8 AM EDT Narrative 01/27/2025 12:26 PM EDT [address] [address] XRay Report Signed Patient: Zain Welch MR# : [id number] : 1965 Acct:[id number] Age/Sex: 59 / M ADM Date: 01/27/25 Loc: HO.ED Attending Dr: Ordering Physician: Ailyn Carbone Date of Service: 01/27/25 Procedure(s): XR wrist RT min 3V Accession Number(s): [id number] cc: Ailyn Carbone; Amy Pickett MD EXAMINATION: [...] 01/27/25 1223 DD/ 1118 TD/TT: 01/27/25 1217 Paver: Procedure Note Donotuseinterpreter, Image - 01/27/2025 [place] [address] XRay Report Signed Patient: Zain Welch LMR# : [id number] : 1965Acct:[id number] Age/Sex: 59 / MADM Date: 01/27/25 Loc: HO.ED Attending Dr: Ordering Physician: Ailyn Carbone Date of Service: 01/27/25 Procedure(s): XR wrist RT min 3V Accession Number(s): [id number] cc: Ailyn Carbone; Amy Pickett MD EXAMINATION: [...] 01/27/25 1223 DD/ 1118 TD/TT: 01/27/25 1217 Pa[place]: [facility] External Provider IMG XR PROCEDURES Edited Result - Final * XR Elbow 1-2 Views Right (01/27/2025 11:13 AM EDT) Anatomical Region Laterality Modality Upper Extremities, Elbow Right Radiogr aphic Imaging 01/27/2025 11:1 3 AM EDT Narrative 01/27/2025 12:25 PM EDT [place] [address] XRay Report Signed Patient: Zain Welch MR# : [id number] : 1965 Acct:[id number] Age/Sex: 59 / M ADM Date: 01/27/25 Loc: .ED Attending Dr: Ordering Physician: Ailyn Carbone Date of Service: 01/27/25 Procedure(s): XR elbow RT 2V Accession Number(s): [id number] cc: Ailyn Carbone; Amy Pickett MD EXAMINATION: [...] 01/27/25 1223 DD/ 1113 TD/TT: 01/27/25 1217 Paver: Procedure Note Donotuseinterpreter, Image - 01/27/2025 [place] [address] XRay Report Signed Patient: Zain Welch LMR# : [id number] : 1965Acct:[id number] Age/Sex: 59 / MADM Date: 01/27/25 Loc: HO.ED Attending Dr: Ordering Physician: Ailyn Carbone Date of Service: 01/27/25 Procedure(s): XR elbow RT 2V Accession Number(s): [id number] cc: Ailyn Carbone; Amy Pickett MD EXAMINATION: [...] 01/27/25 1223 DD/ 1113 TD/TT: 01/27/25 1217 Pa[place]: [facility] External Provider IMG XR PROCEDURES Edited Result - Final * XR Shoulder 2+ Views Right (01/27/2025 11:06 AM EDT) Anatomical Region Laterality Modality Upper Extremities, Shoulder Right Radi ographic Imaging 01/27/2025 11:0 6 AM EDT Narrative 01/27/2025 12:25 PM EDT [address] [address] XRay Report Signed Patient: Zain Welch MR# : [id number] : 1965 Acct:[id number] Age/Sex: 59 / M ADM Date: 01/27/25 Loc: HO.ED Attending Dr: Ordering Physician: iAlyn Carbone Date of Service: 01/27/25 Procedure(s): XR shoulder RT min 2V Accession Number(s): [id number] cc: Ailyn Carbone; Amy Pickett MD EXAMINATION: [...] cervical spine no fully included in the axqmh-fk-mhja. Calcified plaque in the thoracic aortic arch. XR/XR shoulder RT min 2V IMPRESSION: Mild degenerative changes without acute fracture or dislocation. Electronically signed by: Tyler Cortez MD 01/27/2025 12:22 PM EDT Dictated By: Tyler Serrato MD Signed By: <Electronically signed by Tyler Reid MD in OV> 01/27/25 1222 DD/ 1106 TD/TT: 01/27/25 1217 Paver: Procedure Note Donotuseinterpreter, Image - 01/27/[address] [address] XRay Report Signed Patient: Zain Welch LMR# : [id number] : 1965Acct:[id number] Age/Sex: 59 / MADM Date: 01/27/25 Loc: HO.ED Attending Dr: Ordering Physician: Ailyn Carbone Date of Service: 01/27/25 Procedure(s): XR shoulder RT min 2V Accession Number(s): [id number] cc: Ailyn Carbone; Amy Pickett MD EXAMINATION: [...] cervical spine no fully included in the clvkv-kn-erfs. Calcified plaque in the thoracic aortic arch. XR/XR shoulder RT min 2V IMPRESSION: Mild degenerative changes without acute fracture or dislocation. Electronically signed by: Tyler Cortez MD 01/27/2025 12:22 PM EDT RP Dictated By: Tyler Serrato MD Signed By: <Electronically signed by Tyler Reid MDin OV> 01/27/25 1222 DD/ 1106 TD/TT: 01/27/25 1217 Pa[place]: [facility] External Provider IMG XR PROCEDURES Edited Result - Final * (ABNORMAL) Hepatitis C Antibody with Reflex to HCV, RNA, Quantitative, Real- Time PCR (09/29/2024 3:37 PM EDT) Hepatitis C Antibody Reactive( A) Nonreactive [facility] Comment:Presumptive evidence of antibodies to HCV. Blood Venous blood specimen / Unknown 09/29/2024 3:37 PM EDT 09/29/2024 3:38 PM EDT Brent Fischer MD LAB BLOOD ORDERABL ES Final Result [facility] [address] [place] [phone] * HIV-1/2 Antigen and Antibodies, Fourth Generation, with Reflexes (09/29/2024 3:37 PM EDT) HIV AB/AG Nonreactive Nonreactive [facility] Comment:HIV-1 p24 Ag and/or HIV-1/HIV-2 Ab not detected.A test result that is nonreactive does not exclude thepossibility of exposure to or infection with HIV-1 and/orHIV-2. Nonreactive results in this assay for individualswith prior exposure to HIV-1 and/or HIV-2 may be due toantigen and antibody levels that are below the limit ofdetection of this assay.The [employer] HIV Ag/Ab Combo assay result andsupplemental assay results should be interpreted inconjunction with the patient's clinical presentation,history and other laboratory results. If the results areinconsistent with clinical evidence, additional testing issuggested to confirm the result. Blood Venous blood specimen / Unknown 09/29/2024 3:37 PM EDT 09/29/2024 3:38 PM EDT us Brent Fischer MD LAB BLOOD ORDERABL ES Final Result [facility] [address] [place] [phone] * (ABNORMAL) Lipid Panel, Standard (09/29/2024 3:37 PM EDT) Triglycerides 155(H) <150 mg/dL [facility] Comment:Desirable Triglyceri de: less than 150 mg/dLBorderline High Triglyceride 150-199 mg/dLHigh Triglyceride: 200-499 mg/dLVery High Triglyceride: greater than or equal to 5OO mg/dL Cholesterol 211(H) <200 mg/dL [facility] Comment:Desirable Cholestero l: less than 200 mg/dLBorderline High Cholesterol: 200-239 mg/dLHigh Cholesterol: greater than 239 mg/dL LDL Cholesterol Calculated 131(H) <100 mg/dL [facility] Comment:Desirable LDL: less than 100 mg/dLNear Optimal/Above Optimal LDL: 110- 129 mg/dLBorderline High LDL: 130-159 mg/dLHigh LDL: 160-189 mg/dLVery High LDL: greater than or equal to 190 mg/dL HDL Cholesterol 49 >40 mg/dL [facility] Comment:Desirable HDL: great er than 40 mg/dL Note: This HDL assay may give artificially low results in patients with liver disease. Blood Venous blood specimen / Unknown 09/29/2024 3:37 PM EDT 09/29/2024 3:38 PM EDT us Amy Berry MD LAB BLOOD ORDERAB LES Final Result [facility] [address] [place] [phone] * Hm Colonoscopy (01/06/2018 8:00 AM EDT) Historical Provider HEALTH MAINTENANCE Final Result from Last 3 Months or Most Recently Relevant to Health Maintenance Insurance [address] [place], [place] [facility]ARE < 65 [place]EN JAIMES [id number] [address] [place] [place] [address] [place], [place] Care Teams [employer] Relationship Specialty Start Date End Date Amy Pickett MD [address] [place] [phone] PCP - General Internal Medicine 04/07/23
--- OUTSIDE RECORDS SUMMARY | 2025-04-02 09:50 | XMS_ITS | Encounter Summary ---
Author Organization [employer] Address [address] [facility] 7t [place] [address] Care Team Providers Care Patient Registration Clerk Name Role Phone Amy Pickett MD [...] Description 05/03/2025 11:00 AM EDT Office Visit [facility] MEDICINE [address] [place] [address] documented as of this encounter Visit Diagnoses Not on filedocumented in this encounter Additional Health Concerns Assessment Noted Time PHQ-9 Depression Total Score: 0 11/25/19 25 2:10 PM EDT documented as of this encounter Care Teams Patient Registration Clerk Relationship Specialty Start Date End Date Amy Pickett MD [address] [place] [phone] PCP - General Internal Medicine 04/07/23 documented as of this encounter
--- OUTSIDE RECORDS SUMMARY | 2025-04-02 09:50 | XMS_ITS | Encounter Summary ---
Author Organization [employer] Address [address] [place] [address] 7 h Floor [address] Care Team Providers Care Shoelace Tipping Machine Operator Name Role Phone Amy Pickett MD Primary Care Pro vider Reason for Visit * Reason Onset Date Comments Med Refill 2024 Encounter Details Date Type Department Care Team ([facility] st Contact Info) Description 2024 Telephone [facility] MEDICINE [address] [place], [place] [phone] Amy Pickett MD 230 [place], [place] [phone] Med Refill Social History Tobacco Use Types [...] sent to: [facility]/pharmacy #[id number] - [address] documented in this encounter Plan of Treatment Upcoming Encounters Date Type Department Care Team (Late st Contact Info) Description 05/03/2025 11:00 AM EDT Office Visit [facility] MEDICINE [address] [place], [place] [phone] documented as of this encounter Visit Diagnoses Not on filedocumented in this encounter Additional Health Concerns Assessment Noted Time PHQ-9 Depression Total Score: 0 11/25/19 25 2:10 PM EDT documented as of this encounter Care Teams Shoelace Tipping Machine Operator Relationship Specialty Start Date End Date Amy Pickett MD 230 [place], [place] [phone] PCP - General Internal Medicine 04/07/23 documented as of this encounter
--- OUTSIDE RECORDS SUMMARY | 2025-04-02 09:50 | XMS_ITS | Encounter Summary ---
Author Organization [employer] Address 75 [facility] 7t [place] [address] Care Team Providers Care Jewel Hole Rough Opener Name Role Phone Amy Pickett MD Primary Care Pro vider Encounter Details Date Type Department Care Team ([facility] st Contact Info) Description 03/29/2025 Telephone [facility] MED & PEDS [address] [place], [place] [phone] 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, RN [address] [place] [address] Social History Tobacco Use Types Packs/Day Years [...] Description 05/03/2025 11:00 AM EDT Office Visit [facility] MEDICINE 230 [place] [address] documented as of this encounter Visit Diagnoses Not on filedocumented in this encounter Additional Health Concerns Assessment Noted Time PHQ-9 Depression Total Score: 0 11/25/19 2:10 PM EDT documented as of this encounter Care Teams Jewel Hole Rough Opener Relationship Specialty Start Date End Date Amy Pickett MD [address] [place] [address] PCP - General Internal Medicine 04/07/23 documented as of this encounter
--- OUTSIDE RECORDS SUMMARY | 2025-04-02 09:50 | XMS_ITS | Encounter Summary ---
Author Organization [employer] Address 75 [facility] 7 [place] [address] Care Team Providers Care Tooler Name Role Phone Amy Pickett MD Primary Care Pro vider Reason for Visit * Reason Onset Date Comments Medication Question 03/17/2025 Encounter Details Date Type Department Care Team ([facility] st Contact Info) Description 03/17/2025 Telephone [facility] MEDICINE [address] [place], [place] [phone] Amy Pickett MD [address] [place] [address] Medication Question Social History Tobacco Use Types [...] pain killer. Any questions contact pt at [phone] * Telephone Encounter - nAdrew Maldonado - 03/17/2025 11:19 AM EDT Tc from Domenica, pt's CARDIAC NURSE PRACTITIONER, stating pt had a surgery done but due to pt being prescribed Oxycodone they were unable to prescribe pt any pain medication. Domenica is hoping pt can be prescribed some sort of muscle relaxer or an accomodation to be prescribed medication. If any questions please contact Domenica at [phone]. documented in this encounter Plan of Treatment Upcoming Encounters Date Type Department Care Team ([facility] st Contact Info) Description 05/03/2025 11:00 AM EDT Office Visit [facility] MEDICINE [address] [place] [address] documented as of this encounter Visit Diagnoses Not on filedocumented in this encounter Additional Health Concerns Assessment Noted Time PHQ-9 Depression Total Score: 0 11/25/19 25 2:10 PM EDT documented as of this encounter Care Teams Tooler Relationship Specialty Start Date End Date Amy Pickett MD [address] [place] [address] PCP - General Internal Medicine 04/07/23 documented as of this encounter
--- OUTSIDE RECORDS SUMMARY | 2025-04-02 09:50 | XMS_ITS | Encounter Summary ---
Author Organization [employer] Address 75 [facility] 7 [place] [address] Care Team Providers Care Gunner'S Mate M Name Role Phone Amy Pickett MD Primary Care Pro vider Reason for Visit * Reason Onset Date Comments Appointment Request 09/02/2023 Encounter Details Date Type Department Care Team ([facility] st Contact Info) Description 09/02/2023 Telephone [facility] MEDICINE [address] [place], [place] [phone] Amy Pickett MD 230 [place] [address] Appointment Request Social History Tobacco Use Types [...] t he electric, gas, oil or water [employer] threatened to shut off services in your [...] from pt requesting a transfer patient appointment. Engagement Engineer does not see any availability. Pt states he needs appointment as soon as possible due to controlled medication. States needs to be seen bya new provider to continue medication. Please contact pt at [phone] documented in this encounter Plan of Treatment Upcoming Encounters Date Type Department Care Team (Late st Contact Info) Description 05/03/2025 11:00 AM EDT Office Visit [facility] MEDICINE [address] [place] [address] documented as of this encounter Visit Diagnoses Not on filedocumented in this encounter Additional Health Concerns Assessment Noted Time PHQ-9 Depression Total Score: 24 023 10:05 AM EDT documented as of this encounter Care Teams Gunner'S Mate M Relationship Specialty Start Date End Date Amy Pickett MD [address] [place] [address] PCP - General Internal Medicine 04/07/23 documented as of this encounter
--- OUTSIDE RECORDS SUMMARY | 2025-04-02 09:50 | XMS_ITS | Encounter Summary ---
Author Organization [employer] Address [address] [place] [address] 7t [place] [address] Care Team Providers Care Stamp Pad Maker Name Role Phone Elise Glover COMMERCIAL CREDIT SPECIALIST Primary Care Provider Amy Ware MD Primary Care Pro vider Reason for Visit * Reason Onset Date Comments Durable Medical Equipment 10/07/2022 Encounter Details Date Type Department Care Team (Late st Contact Info) Description 10/07/2022 Telephone [facility] MEDICINE 230 [place] [address] Elise Glover, COMMERCIAL CREDIT SPECIALIST Durable Medical Equipment Social History Tobacco [...] If any questions please contact Anabelle at [phone] documented in this encounter Plan of Treatment Upcoming Encounters Date Type Department Care Team (Late st Contact Info) Description 05/03/2025 11:00 AM EDT Office Visit [facility] MEDICINE [address] [place] [address] documented as of this encounter Visit Diagnoses Not on filedocumented in this encounter Additional Health Concerns Assessment Noted Time PHQ-9 Depression Total Score: 24 023 10:05 AM EDT documented as of this encounter Care Teams Stamp Pad Maker Relationship Specialty Start Date End Date Elise Glover FNP PCP - General Family Medicine 07/09/22 04/06/23 Amy Pickett MD [address] [place] [address] PCP - General Internal Medicine 04/07/23 documented as of this encounter
--- OUTSIDE RECORDS SUMMARY | 2025-04-02 09:50 | XMS_ITS | Encounter Summary ---
Author Organization [employer] Address 75 [facility] 7 [place] [address] Care Team Providers Care Supervisory Aide Name Role Phone Amy Pickett MD Primary Care Pro vider Reason for Visit * Reason Comments Med Refill Encounter Details Date Type Department Care Team ([facility] st Contact Info) Description 06/17/2024 Refill [facility] MEDICINE 230 [place], [place] [phone] Amy Pickett MD [address] [place] [address] Social History Tobacco Use Types Packs/Day Years [...] Office Visit [facility] MEDICINE [address] [place] [address] documented as of this encounter Visit Diagnoses Not on filedocumented in this encounter Additional Health Concerns Assessment Noted Time PHQ-9 Depression Total Score: 10 024 9:41 AM EDT documented as of this encounter Care Teams Supervisory Aide Relationship Specialty Start Date End Date Amy Pickett MD [address] [place] [address] PCP - General Internal Medicine 04/07/23 documented as of this encounter
--- OUTSIDE RECORDS SUMMARY | 2025-04-02 09:50 | XMS_ITS | Encounter Summary ---
Author Organization [employer] Address [address] [facility] [address] 7t [place] [address] Care Team Providers Care Retail Interior Designer Name Role Phone Amy Pickett MD Primary Care Pro vider Encounter Details Date Type Department Care Team (Late st Contact Info) Description 06/24/2024 Orders Only [facility] MEDICINE [address] [place] [address] Provider, MD Bryan Social History Tobacco Use [...] 11:00 AM EDT Office Visit [facility] MEDICINE [address] [place] [address] documented as of this encounter Procedures Procedure [...] documented as of this encounter Care Teams Retail Interior Designer Relationship Specialty Start Date End Date Amy Pickett MD 230 [place] [address] PCP - General Internal Medicine 04/07/23 documented as of this encounter
--- OUTSIDE RECORDS SUMMARY | 2025-04-02 09:50 | XMS_ITS | Encounter Summary ---
Author Organization [employer] Address [address] [place] [address] 7 [place] [address] Care Team Providers Care Hospital Aides And Assistants Teacher Name Role Phone Amy Pickett MD Primary Care Pro vider Reason for Visit * Reason Onset Date Comments Med Refill 03/24/2025 Encounter Details Date Type Department Care Team ([facility] st Contact Info) Description 03/24/2025 Telephone [facility] MEDICINE [address] [place], [place] [phone] Amy Pickett MD 230 [place], [place] [phone] Med Refill Social History Tobacco Use Types [...] release tablet To be sent to: [facility]/pharmacy #[id number] - [address] documented in this encounter Plan of Treatment Upcoming Encounters Date Type Department Care Team (Late st Contact Info) Description 05/03/2025 11:00 AM EDT Office Visit [facility] MEDICINE [address] [place] [address] documented as of this encounter Visit Diagnoses Not on filedocumented in this encounter Additional Health Concerns Assessment Noted Time PHQ-9 Depression Total Score: 0 11/25/19 25 2:10 PM EDT documented as of this encounter Care Teams Hospital Aides And Assistants Teacher Relationship Specialty Start Date End Date Amy Pickett MD [address] [place] [address] PCP - General Internal Medicine 04/07/23 documented as of this encounter
--- OUTSIDE RECORDS SUMMARY | 2025-04-02 09:50 | XMS_ITS | Encounter Summary ---
Author Organization [employer] Address [address] [place] [address] 7 [place] [address] Care Team Providers Care Family Development Specialist Name Role Phone Amy Pickett MD Primary Care Pro vider Reason for Visit * Reason Onset Date Comments Appointment Request 10/05/2024 Encounter Details Date Type Department Care Team ([facility] st Contact Info) Description 10/05/2024 Telephone [facility] MEDICINE 230 [place], [place] [phone] mAy Pickett MD [address] [place], [place] [phone] Appointment Request Social History Tobacco Use Types [...] able to make it. Contact Isa at [phone] documented in this encounter Plan of Treatment Upcoming Encounters Date Type Department Care Team (Late st Contact Info) Description 05/03/2025 11:00 AM EDT Office Visit [facility] MEDICINE [address] [place] [address] documented as of this encounter Visit Diagnoses Not on filedocumented in this encounter Additional Health Concerns Assessment Noted Time PHQ-9 Depression Total Score: 10 024 9:41 AM EDT documented as of this encounter Care Teams Family Development Specialist Relationship Specialty Start Date End Date Amy Pickett MD [address] [place] [address] PCP - General Internal Medicine 04/07/23 documented as of this encounter
--- OUTSIDE RECORDS SUMMARY | 2025-04-02 09:50 | XMS_ITS | Encounter Summary ---
Author Organization [employer] Address 75 [facility] 7 [place] [address] Care Team Providers Care Position Classifier Name Role Phone Amy Pickett MD Primary Care Pro vider Reason for Visit * Reason Onset Date Comments Nurse Triage 03/17/2025 Encounter Details Date Type Department Care Team ([facility] st Contact Info) Description 03/17/2025 Telephone [facility] MEDICINE 230 [place], [place] [phone] Amy Pickett MD 230 [place] [address] Nurse Triage Social History Tobacco Use Types [...] to Zain Lazcano to triage below at [phone]. Pt states having a procedure done to [...] Is currently on the phone with a supervisor inspection department [facility] [place]. She states that pt. 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 Pt. Luz Marina states that PCP will not give pt. Additional pain medication because pt. Is alreadyon Oxycodone. I advised that I will write this down as pt. Is currently speaking with a Band Cutting Machine Operator. * Telephone Encounter - James Diana - 03/17/2025 4:02 PM EDT Symptom: Shoulder Pain - Not From Injury Outcome: Schedule an urgent appointment (within 1 hour) or talk to a nurse or provider soon Reason: Severe pain now The caller accepted this outcome. Contact pt at [phone] Pt was requesting for tramadol for his shoulder pain. Pt was already advised that he cannot take tramadol and Oxycodone at the same time. documented in this encounter Plan of Treatment Upcoming Encounters Date Type Department Care Team (Late st Contact Info) Description 05/03/2025 11:00 AM EDT Office Visit [facility] MEDICINE [address] [place] [address] documented as of this encounter Visit Diagnoses Not on filedocumented in this encounter Additional Health Concerns Assessment Noted Time PHQ-9 Depression Total Score: 0 11/25/19 25 2:10 PM EDT documented as of this encounter Care Teams Position Classifier Relationship Specialty Start Date End Date Amy Pickett MD [address] [place] [address] PCP - General Internal Medicine 04/07/23 documented as of this encounter
--- OUTSIDE RECORDS SUMMARY | 2025-04-02 09:50 | XMS_ITS | Encounter Summary ---
Author Organization [employer] Address [address] [place] [address] 7 [place] [address] Care Team Providers Care Oyster Worker Name Role Phone Elise Glover BEHAVIORAL SERVICES TECH Primary Care Provider Amy Ware MD Primary Care Pro vider Reason for Visit * Reason Onset Date Comments triage 08/22/2022 Encounter Details Date Type Department Care Team (Late st Contact Info) Description 08/22/2022 Telephone [facility] MEDICINE [address] [place], [place] [phone] Elise Glover FNP triage Social History Tobacco [...] Description 05/03/2025 11:00 AM EDT Office Visit [facility] MEDICINE [address] [place] [address] documented as of this encounter Visit Diagnoses Not on filedocumented in this encounter Care Teams Oyster Worker Relationship Specialty Start Date End Date Elise Glover FNP PCP - General Family Medicine 07/09/22 04/06/23 Amy Pickett MD [address] [place] [address] PCP - General Internal Medicine 04/07/23 documented as of this encounter
--- OUTSIDE RECORDS SUMMARY | 2025-04-02 09:50 | XMS_ITS | Encounter Summary ---
Author Organization [employer] Address 75 [facility] 7t [place] [address] Care Team Providers Care Building Specialist Name Role Phone Amy Pickett MD Primary Care Pro vider Encounter Details Date Type Department Care Team (Late st Contact Info) Description 03/29/2025 Orders Only [facility] MEDICINE 230 [place], [place] [phone] Amy Pickett MD 230 [place] [address] Chronic right shoulder pain (Primary Dx) Social [...] Description 05/03/2025 11:00 AM EDT Office Visit [facility] MEDICINE [address] [place] [address] documented as of this encounter Visit Diagnoses Diagnosis Chronic right shoulder pain- Primary Pain in joint, shoulder region documented in this encounter Additional Health Concerns Assessment Noted Time PHQ-9 Depression Total Score: 0 11/25/19 25 2:10 PM EDT documented as of this encounter Care Teams Building Specialist Relationship Specialty Start Date End Date Amy Pickett MD [address] [place] [address] PCP - General Internal Medicine 04/07/23 documented as of this encounter
--- OUTSIDE RECORDS SUMMARY | 2025-04-02 09:50 | XMS_ITS | Encounter Summary ---
Author Organization [employer] Address 75 [facility] 7 [place] [address] Care Team Providers Care Assistant Community Manager Name Role Phone Amy Pickett MD Primary Care Pro vider Reason for Visit * Reason Onset Date Comments FYI 03/16/2025 Encounter Details Date Type Department Care Team ([facility] st Contact Info) Description 03/16/2025 Telephone [facility] MEDICINE 230 [place], [place] [phone] Amy Pickett MD [address] [place] [address] FYI Social History Tobacco Use Types Packs/Day [...] who reports pt currently having surgery at [facility] through [facility] to get SNS device removed so that he can have MRI done as he couldn't have MRI with the implant and he has excruciating 10/10 shoulder pain and can't lift his arm. Advised to call [facility] centralized scheduling to r/s MRI now that implant is being removed. Texted her their phone number via [employer] text at her request. She reports that [...] group appt be changed to a normal PACKAGING MECHANIC appt. Seeing as though he is having [...] anything out of it. Would rather do PACKAGING MECHANIC visits. Informed I would send message regarding this. * Telephone Encounter - Jesusita Castellanos - 03/16/2025 3:01 PM EDT Tc from [facility] stating specialist pritesh to give him an emergency surgery to get the implant out. So now pt is able to do MRI. documented in this encounter Plan of Treatment Upcoming Encounters Date Type Department Care Team (Late st Contact Info) Description 05/03/2025 11:00 AM EDT Office Visit [facility] MEDICINE [address] [place] [address] documented as of this encounter Visit Diagnoses Not on filedocumented in this encounter Additional Health Concerns Assessment Noted Time PHQ-9 Depression Total Score: 0 11/25/19 25 2:10 PM EDT documented as of this encounter Care Teams Assistant Community Manager Relationship Specialty Start Date End Date Amy Pickett MD [address] [place] [address] PCP - General Internal Medicine 04/07/23 documented as of this encounter
--- OUTSIDE RECORDS SUMMARY | 2025-04-02 09:50 | XMS_ITS | Encounter Summary ---
Author Organization [employer] Address 75 [facility] 7t [place] [address] Care Team Providers Care Automated Manufacturing Instructor Name Role Phone Amy Pickett MD Primary Care Pro vider Encounter Details Date Type Department Care Team (Late st Contact Info) Description 03/31/2025 Orders Only [facility] External Provider, [facility] Social History Tobacco Use Types Packs/Day [...] Description 05/03/2025 11:00 AM EDT Office Visit [address] [address] documented as of this encounter Procedures Procedure Name Priority Date/Time Associated Diagnosis Comments MR CERVICAL SPINE WO CONTRAST Routine 04/01/2025 11:36 AM EDT documented in this encounter Results * MR Cervical Spine w/o Contrast (04/01/2025 11:36 AM EDT) Anatomical Region Laterality Modality Spine, C-spine Magnetic Resonan ce 04/01/2025 11:3 6 AM EDT Narrative 04/01/2025 11:37 AM EDT [address] [address] Magnetic Resonance Report Signed Patient: Zain Welch MR# : [id number] : 1965 Acct:[id number] Age/Sex: 59 / M ADM Date: 03/31/25 Loc: HO.MRI Attending Dr: Juan David MIRANDA Ordering Physician: Rosangela Cole CNP Date of Service: 03/31/25 Procedure(s): MR cervical spine wo con Accession Number(s): [id number] cc: Rosangela Cole CNP; Amy Pickett MD [...] stenosis. C5-C6: Small posterior disc protrusion. Mild mzbu-lavhzie-lbhk-right neural foraminal narrowing. No significant central canal stenosis. C6-C7: Evcgk-va-oprkqvnu posterior disc protrusion. Moderate bilateral neural foraminal [...] 04/01/25 1137 DD/ 1136 TD/TT: 04/01/25 1136 Network Analyst: Procedure Note Donotuseinterpreter, Image - 04/01/2025 [place] [address] Magnetic Resonance Report Signed Patient: Zain Welch LMR# : [id number] : [id number]:[id number] Age/Sex: 59 / MADM Date: 03/31/25 Loc: HO.MRI Attending Dr: Juan David MIRANDA Ordering Physician: Rosangela Cole CNP Date of Service: 03/31/25 Procedure(s): MR cervical spine wo con Accession Number(s): [id number] cc: Rosangela Cole EMPLOYMENT LAW ATTORNEY; Amy Pickett MD Reason for Exam: M79.2 [...] stenosis. C5-C6: Small posterior disc protrusion. Mild ayjo-cfcvhjt-igwj-right neural foraminal narrowing. No significant central canal stenosis. C6-C7: Xdrol-kt-ehoxjlaz posterior disc protrusion. Moderate bilateral neural foraminal [...] 04/01/25 1137 DD/ 1136 TD/TT: 04/01/25 1136 Network Analyst: [facility] External Provider IMG MRI PROCEDURES Final Result documented in this encounter Visit Diagnoses Not on filedocumented in this encounter Additional Health Concerns Assessment Noted Time PHQ-9 Depression Total Score: 0 11/25/19 25 2:10 PM EDT documented as of this encounter Care Teams Automated Manufacturing Instructor Relationship Specialty Start Date End Date Amy Pickett MD [address] [place] [address] PCP - General Internal Medicine 04/07/23 documented as of this encounter
--- OUTSIDE RECORDS SUMMARY | 2025-04-02 09:50 | XMS_ITS | Encounter Summary ---
Author Organization [employer] Address [address] [facility] 7 [place] [address] Care Team Providers Care Shoe Laster Name Role Phone Amy Pickett MD Primary Care Pro vider Reason for Visit * Reason Onset Date Comments Med Refill 02/11/2024 Encounter Details Date Type Department Care Team (Late st Contact Info) Description 02/11/2024 Telephone [facility] MEDICINE [address] [place], [place] [phone] Amy Pickett MD [address] [place], [place] [phone] Med Refill Social History Tobacco Use Types [...] immediate release tablet To be sent to: [facility]/pharmacy #[id number] - [place], [place] - [address] [place] [address] documented in this encounter Plan of Treatment Upcoming Encounters Date Type Department Care Team (Late st Contact Info) Description 05/03/2025 11:00 AM EDT Office Visit [facility] MED[facility] [address] [place] [address] documented as of this encounter Visit Diagnoses Not on filedocumented in this encounter Additional Health Concerns Assessment Noted Time PHQ-9 Depression Total Score: 24 023 10:05 AM EDT documented as of this encounter Care Teams Shoe Laster Relationship Specialty Start Date End Date Amy Pickett MD [address] [place] [address] PCP - General Internal Medicine 04/07/23 documented as of this encounter
--- OUTSIDE RECORDS SUMMARY | 2025-04-02 09:50 | XMS_ITS | Encounter Summary ---
Author Organization [employer] Address [address] [place] [address] 7t [place] [address] Care Team Providers Care Hedge Fund Trader Name Role Phone Elise Glover ANIMAL REHABILITATOR Primary Care Provider Amy Ware MD Primary Care Pro vider Encounter Details Date Type Department Care Team (Late st Contact Info) Description 01/14/2023 Orders Only [facility] MEDICINE [address] [place] [address] [phone] Elise Glover FNP Social History Tobacco Use [...] Description 05/03/2025 11:00 AM EDT Office Visit [facility] MEDICINE [address] [place], [place] [phone] documented as of this encounter Visit Diagnoses Not on filedocumented in this encounter Additional Health Concerns Assessment Noted Time PHQ-9 Depression Total Score: 24 03/28/2 023 10:05 AM EDT documented as of this encounter Care Teams Hedge Fund Trader Relationship Specialty Start Date End Date Elise Glover FNP PCP - General Family Medicine 07/09/22 04/06/23 Amy Pickett MD [address] [place] [id number] PCP - General Internal Medicine 04/07/23 documented as of this encounter
--- OUTSIDE RECORDS SUMMARY | 2025-04-02 09:50 | XMS_ITS | Encounter Summary ---
Author Organization [employer] Address [address] [facility] 7t [place] [address] Care Team Providers Care Molding Associate Name Role Phone Amy Pickett MD Primary Care Pro vider Encounter Details Date Type Department Care Team ([facility] st Contact Info) Description 03/29/2025 Telephone [facility] PEDS [address] [place], [place] [phone] 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, RN [address] [place] [address] Social History Tobacco Use Types Packs/Day Years [...] pt regarding message below. Spoke with pt's DIRECTOR OF OCCUPATIONAL THERAPY who verbalized understanding and stated she will relay message to pt. documented in this encounter Plan of Treatment Upcoming Encounters Date Type Department Care Team (Late st Contact Info) Description 05/03/2025 11:00 AM EDT Office Visit [facility] MEDICINE [address] [place] [address] documented as of this encounter Visit Diagnoses Not on filedocumented in this encounter Additional Health Concerns Assessment Noted Time PHQ-9 Depression Total Score: 0 11/25/19 25 2:10 PM EDT documented as of this encounter Care Teams Molding Associate Relationship Specialty Start Date End Date Amy Pickett MD [address] [place] [address] PCP - General Internal Medicine 04/07/23 documented as of this encounter
--- OUTSIDE RECORDS SUMMARY | 2025-04-02 09:50 | XMS_ITS | Encounter Summary ---
Author Organization [employer] Address 75 [facility] 7t [place] [address] Care Team Providers Care Records And Tape Recordings Engineer Name Role Phone Amy Pickett MD Primary Care Pro vider Encounter Details Date Type Department Care Team ([facility] st Contact Info) Description 10/01/2024 Orders Only [facility] MED & PEDS [address] [place], [place] [phone] Za Preston MD [address] [place] [address] Social History Tobacco Use Types Packs/Day Years [...] 11:00 AM EDT Office Visit [facility] MEDICINE [address] [place] [address] documented as of this encounter Visit Diagnoses Not on filedocumented in this encounter Additional Health Concerns Assessment Noted Time PHQ-9 Depression Total Score: 10 024 9:41 AM EDT documented as of this encounter Care Teams Records And Tape Recordings Engineer Relationship Specialty Start Date End Date Amy Pickett MD [address] [place] [address] PCP - General Internal Medicine 04/07/23 documented as of this encounter
--- OUTSIDE RECORDS SUMMARY | 2025-04-02 09:50 | XMS_ITS | Encounter Summary ---
Author Organization [employer] Address 75 [facility] 7t [place] [address] Care Team Providers Care Saw Man Name Role Phone Elise Glover SUPERVISOR PAPER MACHINE Primary Care Provider Amy Ware MD Primary Care Pro vider Reason for Visit * Reason Comments Med Change Request Encounter Details Date Type Department Care Team (Late st Contact Info) Description 03/03/2023 Refill [facility] [address] [place] [phone] Elise Glover FNP Essential hypertension Social History [...] Description 05/03/2025 11:00 AM EDT Office Visit [facility] [address] [place] [phone] documented as of this encounter Visit Diagnoses Diagnosis Essential hypertension Unspecified essential hypertension documented in this encounter Additional Health Concerns Assessment Noted Time PHQ-9 Depression Total Score: 24 10/01/ 023 10:05 AM EDT documented as of this encounter Care Teams Saw Man Relationship Specialty Start Date End Date Elise Glover FNP PCP - General Family Medicine 07/09/22 04/06/23 Amy Pickett MD [address] [place] [id number] PCP - General Internal Medicine 04/07/23 documented as of this encounter
--- OUTSIDE RECORDS SUMMARY | 2025-04-02 09:50 | XMS_ITS | Encounter Summary ---
Author Organization [employer] Address 75 [facility] 7 [place] [address] Care Team Providers Care Mathematics Academic Chair Name Role Phone Amy Pickett MD Primary Care Pro vider Reason for Visit * Reason Onset Date Comments Results 10/01/2024 Encounter Details Date Type Department Care Team ([facility] st Contact Info) Description 10/01/2024 Telephone [facility] MEDICINE [address] [place], [place] [phone] Amy Pickett MD [address] [place] [address] Results Social History Tobacco Use Types Packs/Day [...] when done: 09/29/24 [place] [facility] [phone] documented in this encounter Plan of Treatment Upcoming Encounters Date Type Department Care Team (Late st Contact Info) Description 05/03/2025 11:00 AM EDT Office Visit [facility] MEDICINE [address] [place] [address] documented as of this encounter Visit Diagnoses Not on filedocumented in this encounter Additional Health Concerns Assessment Noted Time PHQ-9 Depression Total Score: 10 024 9:41 AM EDT documented as of this encounter Care Teams Mathematics Academic Chair Relationship Specialty Start Date End Date Amy Pickett MD [address] [place], [place] [phone] PCP - General Internal Medicine 04/07/23 documented as of this encounter
--- OUTSIDE RECORDS SUMMARY | 2025-04-02 09:50 | XMS_ITS | Encounter Summary ---
Author Organization [employer] Address [address] [facility] 7 [place] [address] Care Team Providers Care Fiber Optic Central Office Installer Name Role Phone Amy Pickett MD Primary Care Pro vider Reason for Visit * Reason Onset Date Comments Med Refill 02/24/2025 Encounter Details Date Type Department Care Team ([facility] st Contact Info) Description 02/24/2025 Telephone [facility] MEDICINE [address] [place], [place] [phone] Amy Pickett MD [address] [place], [place] [phone] Med Refill Social History Tobacco Use Types [...] release tablet To be sent to: [facility]/pharmacy #[id number] - [address] documented in this encounter Plan of Treatment Upcoming Encounters Date Type Department Care Team (Late st Contact Info) Description 05/03/2025 11:00 AM EDT Office Visit [facility] MEDICINE [address] [place] [address] documented as of this encounter Visit Diagnoses Not on filedocumented in this encounter Additional Health Concerns Assessment Noted Time PHQ-9 Depression Total Score: 0 11/25/19 25 2:10 PM EDT documented as of this encounter Care Teams Fiber Optic Central Office Installer Relationship Specialty Start Date End Date Amy Pickett MD [address] [place] [id number] PCP - General Internal Medicine 04/07/23 documented as of this encounter
--- NOTE | 2025-04-02 10:13 | ED.EXTPRO ---
HPI - Extremity Problem General Chief complaint: Extremity Injury, Upper Stated complaint: pain in both shoulder, arms and neck Time Seen by Provider: 04/02/25 10:11 Source: patient History of Present Illness ED Provider: HORACIO Blanc HPI Narrative: 59-year-old male with medical history of migraines, chronic pain syndrome, cervical post-laminectomy syndrome, GERD, IBS, seizures, STEPHON, COPD, presents to the ED due to acute on chronic right shoulder pain. Patient has been experiencing 3 months of shoulder pain after an injury where he slipped and fell and landed in between 2 rocks. Patient has been seen by [facility] who was awaiting MRI. Patient had MRI done yesterday. Patient presents today due to increased pain in the right shoulder, and inability to sleep last night. Related Data Home Medications ?Medication ?Instructions ?Recorded ?Confirmed cholecalciferol (vitamin D3) 50 50 mcg PO DAILY 05/22/20 03/30/25 mcg (2,000 unit) capsule fluticasone propionate 220 1 puff inhalation BID 05/22/20 03/30/25 mcg/actuation HFA aerosol inhaler (Flovent HFA) oxycodone 15 mg tablet 15 mg PO Q6H 05/22/20 03/30/25 albuterol sulfate 2.5 mg/3 mL 1 vial inhalation QID 07/19/20 03/30/25 (0.083 %) solution for nebulization multivitamin (Daily-Petra tablet) 1 tab PO DAILY 07/19/20 03/30/25 divalproex 500 mg tablet,delayed 1,000 mg PO BID 08/29/21 03/30/25 release fluoxetine 20 mg capsule 20 mg PO DAILY 08/29/21 03/30/25 alprazolam 1 mg tablet 1 mg PO BID PRN Anxiety 10/08/21 03/30/25 escitalopram oxalate 20 mg tablet 20 mg PO QAM 06/26/22 03/30/25 magnesium oxide 400 mg (241.3 mg 400 mg PO DAILY 06/26/22 03/30/25 magnesium) tablet lisinopril 5 mg tablet 10 mg PO BID 07/17/22 03/30/25 nebulizers 08/29/22 03/23/25 atorvastatin 40 mg tablet 40 mg PO DAILY 10/15/24 03/30/25 clopidogrel 75 mg tablet 75 mg PO DAILY 10/15/24 03/30/25 cyanocobalamin (vitamin B-12) 1,000 mcg PO DAILY 10/15/24 03/30/25 1,000 mcg tablet hydroxyzine HCl 10 mg tablet 10 mg PO BID 10/15/24 03/30/25 loratadine 10 mg tablet 10 mg PO DAILY 10/15/24 03/30/25 olmesartan 20 mg tablet 20 mg PO DAILY 10/15/24 03/30/25 rimegepant 75 mg disintegrating 75 mg PO DAILY PRN 10/15/24 03/30/25 tablet (Nurtec ODT) Previous Rx's ?Medication ?Instructions ?Recorded tamsulosin 0.4 mg capsule 0.4 mg PO DAILY 30 days #30 caps 06/26/22 sumatriptan succinate 100 mg 100 mg PO .COMPLEX #14 tabs 03/20/23 tablet (Imitrex) fluticasone fur. 200 mcg-umeclid 1 inh inhalation DAILY 30 days #60 04/28/24 62.5 mcg-vilant 25 mcg ea inhalat.powder (Trelegy Ellipta) ipratropium 20 mcg-albuterol 100 1 puff inhalation QID 30 days #4 07/12/24 mcg/actuation mist for inhalation grams (Combivent Respimat) budesonide 0.5 mg/2 mL suspension 0.5 mg (2 mL) inhalation BID 30 10/14/24 for nebulization days #120 mL ipratropium 0.5 mg-albuterol 3 mg 3 ml inhalation BID 30 days #180 mL 10/14/24 (2.5 mg base)/3 mL nebulization soln nicotine 21 mg/24 hr daily 1 patch transdermal DAILY 28 days 10/14/24 transdermal patch #28 ea dexlansoprazole 60 mg 60 mg PO DAILY #90 caps 10/15/24 capsule,biphase delayed release dicyclomine 20 mg tablet 20 mg PO QID 30 days #120 tabs 10/15/24 famotidine 40 mg tablet 40 mg PO BEDTIME #90 tabs 10/15/24 ondansetron HCl 4 mg tablet 4 mg PO BID PRN for 11/22/24 nausea/vomiting #60 tabs cyclobenzaprine 5 mg tablet 5 mg PO Q8H PRN muscle spasm #20 03/17/25 tabs diclofenac sodium 1 % topical gel 4 g topical QID PRN pain (scale 03/30/25 score 4-6) #100 grams sumatriptan succinate 100 mg tablet See Rx Instructions PO .COMPLEX 04/02/25 #30 tabs Allergies Allergy/AdvReac Type Severity Reaction Status Date / Time cat dander (CATS) Allergy Unknown UNKNOWN Verified 04/02/25 09:34 dog dander (DOGS) Allergy Unknown UNKNOWN Verified 04/02/25 09:34 pollen extracts (POLLEN) Allergy Unknown UNKNOWN Verified 04/02/25 09:34 tree and shrub pollen Allergy sneeze Verified 04/02/25 09:34 ibuprofen AdvReac causes Verified 04/02/25 09:34 stomach to bleed Review of Systems Review of Systems: CONST: Negative for fever, body aches and chills. HENT: Negative for neck pain/stiffness, headache, congestion, sore throat, swelling. EYES: Negative for discharge/pain or vision changes. RESP: Negative for cough/hemoptysis and shortness of breath. CV: Negative chest pain, difficulty breathing, palpitations. ABD: Negative pain, nausea, vomiting. : Negative increase frequency, dysuria, blood in urine or stool. MUSC: Negative for muscle aches, edema. POS R shoulder pain SKIN: Negative rash, lesions/sores. NEURO: Negative headache, dizziness, weakness. Yes all other systems are reviewed and are negative [facility] Past Medical History Medical History (Updated 04/02/25 @ 11:33 by Hoang Blanc PA-C) Ganglion cyst Chest pain Nicotine dependence, cigarettes, uncomplicated Nausea and vomiting Dyspnea Photophobia Headache Syncope Dysphagia Seizure Lipoma of back STEPHON (obstructive sleep apnea) COPD (chronic obstructive pulmonary disease) Post herpetic neuralgia Multiple lipomas Osteoarthritis Gout History of peptic ulcer disease Hx of irritable bowel syndrome Chronic back pain Hx of insomnia History of panic attacks History of anxiety History of depression Asthma High cholesterol Hypertension Urinary retention Enlarged prostate Arthritis Slow urinary stream Marijuana use Alcohol abuse H/O ulcer disease Left flank pain Trochanteric bursitis, left hip Epidermal cyst Abdominal wall bulge Esophageal dysphagia Esophageal spasm Short frenulum of penis Balanitis Elevated blood pressure reading in office with diagnosis of hypertension Thalamic pain syndrome Abnormal loss of weight Painful orthopaedic hardware Pain in unspecified toe(s) Incisional pain Surgical History S/P placement of nerve stimulator H/O neck surgery Hx of arthroscopy of left knee H/O breast surgery S/P excision of lipoma History of bunionectomy History of cystoscopy History of colonoscopy History of esophagogastroduodenoscopy (EGD) Family History Family History Family/Other Cancer Diabetes AIDS Brother Diabetes Myocardial infarction Father Enlarged prostate Mother Diabetes Asthma Social History Social History Are you a primary career portals teacher to a significant other at home: No Do you presently have visiting nurse or other home services: No Alcohol intake: never Patient Tobacco Use Status: Current everyday Tobacco user Cigarettes Per Day: 4 Years Smoked: (onset 16yo, 1ppd x 42yrs, now 1/2ppd - 40pyh) Smoked in Last 30 Days: No Use of substances other than those prescribed or required for medical reasons: No Substance Use Type: Marijuana Advance Directives: No Advance Directives Information Provided: No service: No Current occupational status: unemployed Physical Exam Vital Signs: Vital Signs: Last Vital Signs Temp 96.9 F 04/02/25 09:34 Pulse 87 04/02/25 09:34 Resp 16 04/02/25 09:34 BP 174/93 H 04/02/25 09:34 Pulse Ox 96 04/02/25 09:34 O2 Del Method Room Air 04/02/25 09:34 BMI result Body Mass Index 27.7 GENERAL APPEARANCE: ?AxOx4, no acute distress. HEENT: ?NC, AT. MMM. EOMI, clear conjunctiva, oropharynx clear. NECK: ?Supple without lymphadenopathy.? No stiffness or restricted ROM. HEART:? Normal rate and regular rhythm, normal S1/S2, no m/r/g LUNGS:? CTAB, moving air well. No crackles or wheezes are heard. EXTREMITIES: ?Without cyanosis, clubbing or edema. TTP over diffuse R scapula and periscapular muscles, SILT, radial pulses 2+ B/L, appropriate capillary refill time, no overlying skin changes or rashes noted NEUROLOGICAL: ?Grossly nonfocal. Alert and oriented, moving all 4 extremities. Observed to ambulate with normal gait. Skin: ?Warm and dry without any rash. Medical Decision Making Medical Decision Making MDM Narrative: 59-year-old male with medical history of migraines, chronic pain syndrome, cervical post-laminectomy syndrome, GERD, IBS, seizures, STEPHON, COPD, presents to the ED due to acute on chronic right shoulder pain. Patient has been experiencing 3 months of shoulder pain after an injury where he slipped and fell and landed in between 2 rocks. Patient has been seen by [facility] who was awaiting MRI. Patient had MRI done yesterday. Patient presents today due to increased pain in the right shoulder, and inability to sleep last night. Review of MRI reveals complete supraspinatus tendon tear with the 10 mm retraction, partial subscapularis tendon tear near the insertion point, and a biceps tendon tenosynovitis without tear on the right side. Patient is established with [facility] orthopedics. I counseled him to call office friday to be seen for further evaluation and management of pain. Patient medicated with 30mg IM toradol, 4mg IM morphine and 975 tylenol for pain relief. Patient has history of GI ulcer so is not appropriate to send him home with a continued dose of NSAID. Patient is prescribed oxycodone for back pain and takes QID. I counseled patient he needs to start taking 1,000mg tylenol TID for further pain management. Patient is quite frustrated and now states he has been out of sumatriptan that he takes to manage migraines and is unable to see PCP, he is requesting refill of medication. I will refill this medication for him. Patient is in agreement with the plan. Differential Diagnosis Differential Diagnoses: The differential diagnosis associated with the presentation includes Rotator cuff injury arthralgia chronic shoulder pain Admission/Observation Consideration of admission/observation: Escalation of care including admission/observation considered Discharge Plan Discharge Clinical Impression: Supraspinatus tendon tear, Partial tear of right subscapularis tendon, Biceps tendinitis Patient Disposition: Home, Self-Care Additional Instructions: You were evaluated in the ED today due to chronic right shoulder pain. Review of your shoulder MRI reveals a complete supraspinatus tendon tear, partial subscapularis tendon tear, and biceps tendon tenosynovitis without tear. This is causing your pain. You are already on oxycodone for pain management. I spoke with the orthopedic specialists, use of a sling is contraindicated as it can cause worsening deterioration of the muscles surrounding the area and cause more pain. Additionally, you stated you were out of your sumatriptan that you use for migraine headaches, I will refill this for you. To manage pain at home you need to take a 1000 mg of Tylenol every 8 hours along with your opioid medication. Ice the affected area, do not lift heavy items. Call the orthopedic office on Friday for further evaluation and management of your rotator cuff injury. Please return to the emergency department if you experience fevers over 100.4?, worsening pain of your right shoulder, or any new/worsening/concerning symptoms. Prescriptions: New sumatriptan succinate 100 mg tablet See Rx Instructions .ROUTE .COMPLEX Qty: 30 0RF Rx Instructions: take 1 tab at onset of headache; if no relief, may repeat 1 tab after at least 2 hrs; max = 2 tabs/24 hrs No Action sumatriptan succinate [Imitrex] 100 mg tablet 100 mg PO .COMPLEX Qty: 14 3RF Rx Instructions: 100 mg orally; ondansetron HCl 4 mg tablet 4 mg PO BID PRN (Reason: for nausea/vomiting) Qty: 60 0RF multivitamin [Daily-Petra] Tablet 1 tab PO DAILY albuterol sulfate 2.5 mg /3 mL (0.083 %) solution for nebulization 1 vial inhalation QID alprazolam 1 mg tablet 1 mg PO BID PRN (Reason: Anxiety) lisinopril 5 mg tablet 10 mg PO BID cyclobenzaprine 5 mg tablet 5 mg PO Q8H PRN (Reason: muscle spasm) Qty: 20 0RF oxycodone 15 mg tablet 15 mg PO Q6H cholecalciferol (vitamin D3) 50 mcg (2,000 unit) capsule 50 mcg PO DAILY Flovent HFA 220 mcg/actuation HFA aerosol inhaler 1 puff inhalation BID fluoxetine 20 mg capsule 20 mg PO DAILY divalproex 500 mg tablet,delayed release (DR/EC) 1,000 mg PO BID magnesium oxide 400 mg (241.3 mg magnesium) tablet 400 mg PO DAILY escitalopram oxalate 20 mg tablet 20 mg PO QAM tamsulosin 0.4 mg capsule 0.4 mg PO DAILY 30 Days Qty: 30 3RF (DME) nebulizers Misc See Rx Instructions .Route Rx Instructions: As directed Trelegy Ellipta 200-62.5-25 mcg blister with device 1 inh inhalation DAILY 30 Days Qty: 60 12RF Combivent Respimat 20-100 mcg/actuation mist 1 puff inhalation QID 30 Days Qty: 4 11RF olmesartan 20 mg tablet 20 mg PO DAILY hydroxyzine HCl 10 mg tablet 10 mg PO BID atorvastatin 40 mg tablet 40 mg PO DAILY cyanocobalamin (vitamin B-12) 1,000 mcg tablet 1,000 mcg PO DAILY Nurtec ODT 75 mg tablet,disintegrating 75 mg PO DAILY PRN clopidogrel 75 mg tablet 75 mg PO DAILY loratadine 10 mg tablet 10 mg PO DAILY dexlansoprazole 60 mg capsule,biphase delayed releas 60 mg PO DAILY Qty: 90 1RF famotidine 40 mg tablet 40 mg PO BEDTIME Qty: 90 2RF dicyclomine 20 mg tablet 20 mg PO QID 30 Days Qty: 120 6RF diclofenac sodium 1 % gel 4 g topical QID PRN (Reason: pain (scale score 4-6)) Qty: 100 3RF Rx Instructions: apply to right shoulder area as needed for pain nicotine 21 mg/24 hr patch 24 hour 1 patch transdermal DAILY 28 Days Qty: 28 4RF ipratropium-albuterol 0.5 mg-3 mg(2.5 mg base)/3 mL solution for nebulization 3 ml inhalation BID 30 Days Qty: 180 11RF budesonide 0.5 mg/2 mL suspension for nebulization 0.5 mg inhalation BID 30 Days Qty: 120 11RF Print Language: Uzbek
[2025-04-02 11:55] VITALS: BP 156/86; PULSE 78; RESP 16; TEMP 36.1; O2SAT 95
== END 2025-04-02 11:56 | disposition home or self-care (01) ==
PROVIDERS: Emergency Provider Emergency Medicine Emergency Medical Services; PCP Student in an Organized Health Care Education/Training Program
DX: M65.821 Other synovitis and tenosynovitis, right upper arm (principal); M79.601 Pain in right arm; M79.602 Pain in left arm; M54.2 Cervicalgia; F17.210 Nicotine dependence, cigarettes, uncomplicated; Z79.899 Other long term (current) drug therapy
CPT/HCPCS: 96372; 99284; J1885; J2270

== ENCOUNTER 2025-04-06 07:31 | Outpatient (AMB) | payer OTHER, SELFPAY ==
--- NOTE | 2025-04-06 07:32 | A.OFFVIS_ITS ---
Vital Signs 04/06/25 07:49 Height 5 ft 4 in Weight 180 lb BMI 30.9 BP 170/108 H Blood Pressure Location Lt brachial Position Sitting Respiration 16 Pulse 84 Pulse Oximetry (%) 97 Intake Visit Reasons: nerve block Power Regulator Required: No Allergies cat dander (CATS) Allergy (Unknown, Verified 04/02/25 09:34) UNKNOWN dog dander (DOGS) Allergy (Unknown, Verified 04/02/25 09:34) UNKNOWN pollen extracts (POLLEN) Allergy (Unknown, Verified 04/02/25 09:34) UNKNOWN tree and shrub pollen Allergy (Verified 04/02/25 09:34) sneeze ibuprofen Adverse Reaction (Verified 04/02/25 09:34) causes stomach to bleed HPI Comments Details: Zain is a 59-year-old male patient with a past medical history of migraine, depression, hypertension, osteoarthritis, asthma, COPD, STEPHON on CPAP who was seeing me at the [facility] neurology clinic for chronic headache. He is here today for his occipital nerve blocks and trigger point injections. To review his history: He has a longstanding history of STEPHON which has likely contributed to his existing migraine history. He also has a history of medication overuse headaches of sumatriptan. He does have an occipital neuralgia component to his headaches and he has responded well to occipital nerve blocks and trigger point injections. His acute therapy has been slightly more challenging with some resistance to GEPANTs in the past. Triptans are not favorable due to his history of coronary artery disease. At our most recent appointment at [facility], he reported a fall and related shoulder pain. The patient reports persistent right shoulder pain, exacerbated by movement and associated with numbness in the right arm. The patient has a history of cervical disc herniation with mild central stenosis and bilateral foraminal stenosis at C6-C7, which was identified in an MRI conducted in 2023. The patient did not follow up with neurosurgery as recommended after the MRI, and symptoms have progressed to include pain radiating to the left arm. The patient also reports discontinuation of CPAP use due to an incident of vomiting through the mask. The patient expresses concern about the risk of aspiration and is considering alternative mask options. His student development specialist manages his Pap therapy. At the time of his last visit I also ordered a c-spine provided he had continued shoulder pain with prior cervical disc disease. His c-spine MRI did not show any significant areas of concern to relate to the severity of his symptoms though did display some chronic degenerative changes. He tells me today he is working with [facility] for his right shoulder. His recent MRI of his right shoulder did show some tearing. 03/31/2025 shoulder MRI IMPRESSION: 1. Complete supraspinatus tendon tear with 10 mm retraction. 2. Partial subscapularis tendon tear near its insertion. 3. Biceps tendon tenosynovitis without tear. 03/31/25 c-spine MRI FINDINGS: Mild expected postsurgical straightening of the cervical lordosis. Fusion hardware at C5-C6 appears intact by MR. No acute fracture or acute malalignment. Prevertebral and paravertebral soft tissues are unremarkable. Mild multilevel disc desiccation and disc space narrowing. Visualized portions of the posterior fossa are unremarkable. Individual levels: C2-C3: Small left eccentric disc protrusion. No significant central canal stenosis or neural foraminal narrowing. C3-C4: No significant central canal stenosis or neural foraminal narrowing. C4-C5: Small posterior disc protrusion with mild bilateral neural foraminal narrowing. No central canal stenosis. C5-C6: Small posterior disc protrusion. Mild uvwa-aqgepzv-khgt-right neural foraminal narrowing. No significant central canal stenosis. C6-C7: Onjqq-go-aichzbnk posterior disc protrusion. Moderate bilateral neural foraminal narrowing. Minimal central canal narrowing. C7-T1: Small left eccentric disc protrusion with mild left neural foraminal narrowing. Impression: Postsurgical and degenerative changes as detailed. [facility] Medical History (Updated 04/06/25 @ 08:22 by Rosangela Cole CNP) Ganglion cyst Chest pain Nicotine dependence, cigarettes, uncomplicated Nausea and vomiting Dyspnea Photophobia Headache Syncope Dysphagia Seizure Lipoma of back STEPHON (obstructive sleep apnea) COPD (chronic obstructive pulmonary disease) Post herpetic neuralgia Multiple lipomas Osteoarthritis Gout History of peptic ulcer disease Hx of irritable bowel syndrome Chronic back pain Hx of insomnia History of panic attacks History of anxiety History of depression Asthma High cholesterol Hypertension Urinary retention Enlarged prostate Arthritis Slow urinary stream Marijuana use Alcohol abuse H/O ulcer disease Left flank pain Trochanteric bursitis, left hip Epidermal cyst Abdominal wall bulge Esophageal dysphagia Esophageal spasm Short frenulum of penis Balanitis Elevated blood pressure reading in office with diagnosis of hypertension Thalamic pain syndrome Abnormal loss of weight Painful orthopaedic hardware Pain in unspecified toe(s) Incisional pain Surgical History S/P placement of nerve stimulator H/O neck surgery Hx of arthroscopy of left knee H/O breast surgery S/P excision of lipoma History of bunionectomy History of cystoscopy History of colonoscopy History of esophagogastroduodenoscopy (EGD) Family History Family/Other Cancer Diabetes AIDS Brother Diabetes Myocardial infarction Father Enlarged prostate Mother Diabetes Asthma Social History Are you a primary pet care technician to a significant other at home: No Do you presently have visiting nurse or other home services: No Alcohol intake: never Patient Tobacco Use Status: Current everyday Tobacco user Cigarettes Per Day: 4 Years Smoked: (onset 16yo, 1ppd x 42yrs, now 1/2ppd - 40pyh) Substance Use Type: Marijuana service: No Current occupational status: unemployed Review of Systems Const All systems reviewed & are unremarkable except as noted in HPI and below Physical Exam Vital Signs: Last Vital Signs Pulse 84 04/06/25 07:49 Resp 16 04/06/25 07:49 BP 170/108 H 04/06/25 07:49 Pulse Ox 97 04/06/25 07:49 BMI result Body Mass Index 30.9 GENERAL APPEARANCE: ?AxOx4, no acute distress. HEENT: ?NC, AT. MMM. EOMI, clear conjunctiva, oropharynx clear. NECK: ?Supple without lymphadenopathy.? No stiffness or restricted ROM. HEART:? Normal rate and regular rhythm, normal S1/S2, no m/r/g LUNGS:? CTAB, moving air well. No crackles or wheezes are heard. EXTREMITIES: ?Without cyanosis, clubbing or edema. TTP over diffuse R scapula and periscapular muscles, SILT, radial pulses 2+ B/L, appropriate capillary refill time, no overlying skin changes or rashes noted NEUROLOGICAL: ?Grossly nonfocal. Alert and oriented, moving all 4 extremities. Observed to ambulate with normal gait. Skin: ?Warm and dry without any rash. Office Procedures Nerve Block Details: Bilateral Greater Occipital Nerve block procedure: Laterally: Bilateral Indications: Occipital neuralgia Current allergies and current list of medications were reviewed prior to procedure, verbal consent was obtained, procedure was explained in detail to the patient prior to starting. Time-out was performed prior to procedure. Following universal hygiene protocols, patient's left occipital area was located by drawing a line between the external occipital protuberance and the mastoid process. The greater occipital nerve was located approximately 2/3 along this laborer pipeline to the occiput, and corresponded with the point of maximum tenderness. Alcohol was applied topically to the skin. A 27 gauge needle (aspirating during insertion) was inserted at a 45 degree angle until just above the periosteum. The providers selected agent (s)/medications (as documented in this note) were injected on the left side (directing needle to center, left and right of painful focus any fanning technique). Pressure with gauze pad was held briefly upon the site of puncture to minimize bleeding and to further spread anesthetic subcutaneously. The procedure was repeated on the right side. The patient was monitored for 15 minutes after the procedure and no complications were observed. Post procedure care was reviewed with the patient including application of ice intermittently to the injection sites over the course of the day to reduce inflammation. CPT: 64808-Gpzyfej Occipital Procedure code (CPT) selection complete Therapeutic Injection Therapeutic Injection Details: Trigger point injection procedure: Laterally:Bilateral Indications: Chronic headaches, myofascial pain Following universal hygiene protocol, after explaining the risks and benefits as well as hazards of the procedure to the patient, consent was signed and placed in the chart. Time-out prior to starting the procedure was performed. The areas over the bilateral upper trapezius muscles were cleansed with alcohol. 2 Sites in each trapezius muscle injected with a 27 gauge 1.5 in needle with myofascial spasm. Patient tolerated the procedure well, localized bleeding was controlled. Patient monitored in the clinic for 15 minutes for complications. Patient was discharged home with instructions to apply ice to the back of their head as needed. 56245-Tevlwyx Point Injection 3 or more All charges added?: Procedure code (CPT) selection complete Office Meds bupivacaine (PF) 0.25 % (2.5 mg/mL) injection solution Performing Provider: Rosangela Cole CNP Performing Location: [facility] Administered by: Rosangela Cole CNP on 04/06/25 08:22 Dose Route Admin Location Dispensed Lot Number Expiration Date [facility] Dispensing And Measuring Optician 4 mL Infiltration 10 mL [id number] [employer] Total Dispensed Waste 10 mL 60 % bupivacaine (PF) 0.25 % (2.5 mg/mL) injection solution Performing Provider: Rosangela Cole CNP Performing Location: [facility] Administered by: Rosangela Cole CNP on 04/06/25 08:22 Dose Route Admin Location Dispensed Lot Number Expiration Date [employer] Dispensing And Measuring Optician 3 mL Infiltration 10 mL [id number] [employer] Total Dispensed Waste 10 mL 70 % Assessment & Plan Assessment & Plan (1) Occipital neuralgia: Code(s): M54.81 - Occipital neuralgia Category: Medical Plan: . (2) Myofascial pain: Code(s): M79.18 - Myalgia, other site Category: Medical Plan: . (3) Right shoulder pain: Code(s): M25.511 - Pain in right shoulder Category: Medical Plan: . (4) Chronic daily headache: Code(s): R51.9 - Headache, unspecified Category: Medical Plan: . (5) Migraines: Code(s): G43.909 - Migraine, unspecified, not intractable, without status migrainosus Category: Medical Plan: . Plan Zain is a 59-year-old male patient with a past medical history of migraine, depression, hypertension, osteoarthritis, asthma, COPD, STEPHON on CPAP who was seeing me at the [facility] neurology clinic for chronic headache. He is here today for his occipital nerve blocks and trigger point injections. His procedures went well without any complications. His recent c-spine MRI stable but right shoulder MRI shows tearing. He is being followed by [facility]. He can return in 6 weeks for another round of injections for management of his headaches and myofacial pain. Orders: Orders AMB Nerve Block Today G43.909 - Migraine, unspecified, not intractable, without status migrainosus, M54.81 - Occipital neuralgia, R51.9 - Headache, unspecified AMB Trigger Point Injection Today M79.18 - Myalgia, other site Coding Level of Care Code Est Pt Level 1 (73819) Diagnoses Occipital neuralgia M54.81 Myofascial pain M79.18 Right shoulder pain M25.511 Chronic daily headache R51.9 Migraines G43.909 CPT Codes Nerve Block - CPT: 95084-Xblapzo Occipital ([id number]) Therapeutic Injection - Ther Injection 2: 21630-Ximlptt Point Injection 3 or more ([id number])
[2025-04-06 07:49] VITALS: BP 170/108; PULSE 84; RESP 16; O2SAT 97; BMI 30.9
== END 2025-04-06 08:13 | disposition home or self-care (01) ==
LOC: HO.HSM 07:31
PROVIDERS: PCP Student in an Organized Health Care Education/Training Program; Visit Provider Nurse Practitioner
DX: M54.81 Occipital neuralgia (principal); M79.18 Myalgia, other site; M25.511 Pain in right shoulder; R51.9 Headache, unspecified; G43.909 Migraine, unspecified, not intractable, without status migrainosus
CPT/HCPCS: 20553; 64405

== ENCOUNTER → 2025-04-06 07:31 | Outpatient (BNVA) | payer OTHER, SELFPAY | PROVIDERS: PCP Student in an Organized Health Care Education/Training Program; Visit Provider Nurse Practitioner | DX: M54.81 Occipital neuralgia (principal); M79.18 Myalgia, other site; M25.511 Pain in right shoulder; G43.909 Migraine, unspecified, not intractable, without status migrainosus | CPT/HCPCS: 20553; 64405; 99211; J0665 ==

== ENCOUNTER 2025-04-19 08:38 | Outpatient (AMB) | payer OTHER, SELFPAY ==
--- NOTE | 2025-04-19 08:40 | MHC.OFFVIS ---
Vital Signs 04/19/25 08:41 Height 5 ft 4 in Weight 180 lb 12.465 oz BMI 31.0 BP 130/70 Blood Pressure Location Lt brachial Position Sitting Pulse 90 Pulse Source Pulse Oximeter Pulse Oximetry (%) 97 Oxygen Delivery Method Room Air Intake Visit Reasons: Obstructive sleep apnea Service Desk Technician Required: No Accompanied by: Self / Same As Patient Allergies cat dander (CATS) Allergy (Unknown, Verified 04/19/25 15:50) UNKNOWN dog dander (DOGS) Allergy (Unknown, Verified 04/19/25 15:50) UNKNOWN pollen extracts (POLLEN) Allergy (Unknown, Verified 04/19/25 15:50) UNKNOWN tree and shrub pollen Allergy (Verified 04/19/25 15:50) sneeze ibuprofen Adverse Reaction (Verified 04/19/25 15:50) causes stomach to bleed HPI Comments Details: The patient is a 59-year-old gentleman with a known history of tobacco dependency in addition to COPD who apparently was being evaluated for cardiac disease. The patient did undergo a CT of the coronary arteries at [facility]. It actually demonstrated a density within the left mainstem bronchus resulting in a partial obstruction of the airway. Subsequently also has some haziness and irregularities to the left lower lobe parenchyma. Based on the abnormality he was referred to Pulmonary. The patient does complaint increased cough and also complains of left-sided chest discomfort. On further questions he does have a history of shingles in the past. The skin is very sensitive suggesting of dermatomal distribution likely from post herpetic neuralgia. Other new neuropathies may be in differential. The patient has a hard time sleeping because of the pain therefore a Lidoderm patch may be helpful and modulating some of the discomfort. Patient also takes gabapentin. Although he becomes significantly drowsy. The patient also has a history of sleep apnea. He has had CPAP in the past but was not able to use it appropriately so therefore was taken away. He does have significant daytime drowsiness. His [place] score is elevated 12/24. Sometimes 20 takes the gabapentin sleeps for 10-12 hours. Therefore, he does not take it every time based on the findings on CT scan that I personally reviewed with the patient the best option would be to visualize the airways with bronchoscopy. The patient also will need a formal CT scan of the chest that will further request in the near future. 10/31/2022 the patient is here for a pulmonary follow-up visit. Overall the patient has been doing relatively well. He still has daytime drowsiness. He has severe headaches in the morning. The patient did have a home sleep study which we reviewed which demonstrated an AHI of 4 in addition to a pulse ox of 76% and he spent about 30 minutes below 88%. It was a difficult study based on the fact that the patient noticed that the equipment was turning on and off. It is unclear how accurate this is. However, in view of his hypoxia and his daytime drowsiness with severe headaches I will request an in-lab study to get a better accurate reading. The patient also underwent a bronchoscopy to follow-up the abnormal findings of the left lower lobe area. The patient did have significant purulent secretions that were suction. His cultures were positive for E coli. He was treated with antibiotics but only partially helped him. Will go ahead and give him a 2nd course to make sure that we complete eradicated. I also talked about him making sure that he sleeps elevated to maintain and avoid micro aspirations. He can try also mouthwash with chlorhexidine for 2 weeks to minimize anaerobic colonization of the teeth and micro aspirations into the lungs. 04/28/2024 the patient is here for a pulmonary follow-up visit. Overall the patient has been doing okay. He does have significant headaches a lot 11 can be severe. Also daytime drowsiness with an elevated Cornville score 12/24. He did undergo an in-lab sleep study at [facility] since he had nocturnal hypoxia. However, we are still waiting for the results. It is likely that he will need some type of PAP therapy if not oxygen. Once I get the report I will let him know. In the meantime he did have a repeat CT scan of the chest which was personally by me. Unfortunately has not been officially read as of yet although has been a few weeks. It appears that he does have still has some nodular changes to the airways although not significant. The patient is status post bronchoscopy demonstrating no endobronchial lesions. He continues uses respiratory therapy. Has multiple inhalers. He complains of wheezing. Moderate severity. I do believe that he will do better in a easier regimen in this case Trelegy to allow him to get his medications with better adherence. 07/12/2024 the patient is here for a pulmonary follow-up visit. Overall he has multiple complaints. He has been using the CPAP. CPAP therapy is affecting beneficial. Although he does wake up short of breath with it like his bothering him and he does take it off. Sometimes he is not able to complete the 4 hours because he gets upset because is causing him to have worsening shortness of breath. In the meantime he also complains of headaches. He was hoping that the CPAP would take away the headaches. He has not gotten supplies from his [employer] company. Will go ahead and request supplies for him. In the meantime I did decrease the pressures from 6-16 to 6-13 since his average pressure is around 13 cm and his AHI is at 0.8. Therefore he will try the pressure change then call me if he has any issues. The patient also did not like the Trelegy because then like the taste. He would like to go back to the [employer]. Will go ahead and do that. He is still having significant back pain he does follow-up with pain management and [facility] He is struggles with that issue and also struggles with insomnia. Will go ahead and request an overnight oximetry on CPAP to make sure that he does not need any additional oxygen supplementation with CPAP specially because is ongoing headaches. 04/19/2025 the patient is here for pulmonary follow-up visit. He is having significant neck and shoulder pain. He is very debilitated because of it. He had been seen multiple specialists. Looks like he has a total tear of the rotator cuff on the right shoulder that is going to need surgery and significant degenerative changes to his neck. From a breathing standpoint he seems to be doing better with the Trelegy. He is using it regularly. Although he still complains of productive cough moderate severity. He feels like he has a hard time clearing his secretions from his lungs. Will go ahead and give him additional therapies for that. As far as the CPAP the CPAP therapy is a little uncomfortable for him to use because he is looking for new mask. He is trying to get a nasal mask. I will request an N30 I mask from his [employer] company, [employer]. He understands CPAP therapy will be helping his cardiovascular risk factors. Once he gets the new equipment he can start using a. The patient is also participating in the lung cancer screening program. His CAT scan coming up next month. Follow up those results. At least from a pulmonary standpoint the patient is doing well and if he needs surgery and anesthesia he is able to pursue that at this time without any respiratory limitations. [facility] Medical History (Updated 04/06/25 @ 08:22 by Rosangela Cole CNP) Ganglion cyst Chest pain Nicotine dependence, cigarettes, uncomplicated Nausea and vomiting Dyspnea Photophobia Headache Syncope Dysphagia Seizure Lipoma of back STEPHON (obstructive sleep apnea) COPD (chronic obstructive pulmonary disease) Post herpetic neuralgia Multiple lipomas Osteoarthritis Gout History of peptic ulcer disease Hx of irritable bowel syndrome Chronic back pain Hx of insomnia History of panic attacks History of anxiety History of depression Asthma High cholesterol Hypertension Urinary retention Enlarged prostate Arthritis Slow urinary stream Marijuana use Alcohol abuse H/O ulcer disease Left flank pain Trochanteric bursitis, left hip Epidermal cyst Abdominal wall bulge Esophageal dysphagia Esophageal spasm Short frenulum of penis Balanitis Elevated blood pressure reading in office with diagnosis of hypertension Thalamic pain syndrome Abnormal loss of weight Painful orthopaedic hardware Pain in unspecified toe(s) Incisional pain Surgical History S/P placement of nerve stimulator H/O neck surgery Hx of arthroscopy of left knee H/O breast surgery S/P excision of lipoma History of bunionectomy History of cystoscopy History of colonoscopy History of esophagogastroduodenoscopy (EGD) Family History Family/Other Cancer Diabetes AIDS Brother Diabetes Myocardial infarction Father Enlarged prostate Mother Diabetes Asthma Social History Are you a primary primary health care nurse to a significant other at home: No Do you presently have visiting nurse or other home services: No Alcohol intake: never Patient Tobacco Use Status: Current everyday Tobacco user Cigarettes Per Day: 4 Years Smoked: (onset 16yo, 1ppd x 42yrs, now 1/2ppd - 40pyh) Substance Use Type: Marijuana Do you have a plan to hurt others: No Plan service: No Current occupational status: unemployed Review of Systems Const Reports daytime sleepiness and Reports difficulty sleeping Eyes Denies change in vision ENT Reports nasal congestion and Denies throat swelling Card Reports chest pain and Reports dyspnea on exertion Resp Reports chest congestion, Reports cough and Reports dyspnea on exertion GI Reports no additional complaints Musc Reports as per HPI, Reports abnormal gait, Reports back pain, Reports myalgias, Reports arthralgias, Reports radiating pain into limb and Reports stiffness Skin/Breast Denies lesions and Denies rash Neuro Reports abnormal gait, Reports radicular pain and Reports paresthesias Endo Denies flushing Tarik/Lymph Denies easy bleeding and Denies easy bruising Aller/Immun Denies throat swelling Physical Exam Vital Signs: Last Vital Signs Pulse 90 04/19/25 08:41 BP 130/70 04/19/25 08:41 Pulse Ox 97 04/19/25 08:41 Oxygen Delivery Method Room Air 04/19/25 08:41 BMI result Body Mass Index 31.0 Const General: comfortable HEENT Head: Yes normocephalic Neck Neck: Yes supple Chest Chest palpation & inspection: normal inspection of the chest Resp Effort & Inspection: normal respiratory effort and prolonged expiratory phase Auscultation: wheezes and diminished lung sounds Cardio Rate: regular rate Rhythm: regular rhythm Heart sounds: S1 normal heart sound present and S2 normal heart sound present GI Palpation (GI): Soft to palpation Skin General skin exam: no rashes or lesions noted Neuro Sensory Exam: Trunk sensory exam abnormal (hypersensitive on the left side) Extrem General: Yes no clubbing, cyanosis or edema Assessment & Plan Assessment & Plan (1) COPD (chronic obstructive pulmonary disease): Code(s): J44.9 - Chronic obstructive pulmonary disease, unspecified Category: Medical Qualifiers: COPD type: COPD with acute exacerbation Qualified Code(s): J44.1 - Chronic obstructive pulmonary disease with (acute) exacerbation (2) STEPHON (obstructive sleep apnea): Code(s): G47.33 - Obstructive sleep apnea (adult) (pediatric) Category: Medical (3) Chest pain: Comment: Likely dermatomal/neuropathic Code(s): R07.9 - Chest pain, unspecified Category: Medical Qualifiers: Chest pain type: unspecified Qualified Code(s): R07.9 - Chest pain, unspecified Plan continue Trelegy continue Duoneb stop Budesonide nebs LDCT program tobacco cessation continue APAP, adjusted pressures 6-16->6-13. Requesting N30i mask start Zpack start couh expectorant F/U 8-12 months Medications: New guaifenesin ER 1,200 mg PO BID 28 tabs 0RF 14 days azithromycin 500 mg PO DAILY 5 tabs 0RF 5 days Coding Level of Care Code Est Pt Level 4 (83086) Diagnoses Chronic obstructive pulmonary disease with acute exacerbation J44.1 COPD type: COPD with acute exacerbation STEPHON (obstructive sleep apnea) G47.33 Chest pain, unspecified type R07.9 Chest pain type: unspecified Time Spent (min) 16
[2025-04-19 08:41] VITALS: BP 130/70; PULSE 90; O2SAT 97; BMI 31.0
--- OUTSIDE RECORDS SUMMARY | 2025-04-19 09:00 | XMS_ITS | Encounter Summary ---
Author Organization [employer] Address [address] [place] [address] 7 [place] [address] Care Team Providers Care Clinical Assistant Name Role Phone Amy Pickett MD Primary Care Pro vider Reason for Visit * Reason Onset Date Comments Appointment Request 10/05/2024 Encounter Details Date Type Department Care Team ([facility] st Contact Info) Description 10/05/2024 Telephone [facility] 230 [place], [place] [phone] Amy Pickett MD 230 [place] [address] Appointment Request Social History Tobacco Use Types [...] able to make it. Contact Isa at [phone] documented in this encounter Plan of Treatment Upcoming Encounters Date Type Department Care Team (Late st Contact Info) Description 05/03/2025 11:00 AM EDT Office Visit [facility] [address] [place] [address] 06/10/2025 1:45 PM EST Office Visit [facility] [address] [place] [address] Annmarie Ellington MD 230 [place] [address] documented as of this encounter Visit Diagnoses Not on filedocumented in this encounter Additional Health Concerns Assessment Noted Time PHQ-9 Depression Total Score: 10 024 9:41 AM EDT documented as of this encounter Care Teams Clinical Assistant Relationship Specialty Start Date End Date Amy Pickett MD [address] [place] [address] PCP - General Internal Medicine 04/07/23 documented as of this encounter
--- OUTSIDE RECORDS SUMMARY | 2025-04-19 09:00 | XMS_ITS | Encounter Summary ---
Author Organization [employer] Address [address] [facility] 7t [place] [address] Care Team Providers Care C Winforms Developer Name Role Phone Amy Pickett MD Primary Care Pro vider Encounter Details Date Type Department Care Team ([facility] st Contact Info) Description 09/01/2024 Telephone [facility] 230 [place], [place] [phone] Amy Pickett MD 230 [place], [place] [phone] Social History Tobacco Use Types Packs/Day Years [...] 11:00 AM EDT Office Visit [facility] [address] [place] [address] 06/10/2025 1:45 PM EST Office Visit [address] [address] Annmarie Ellington MD [address] [place] [address] documented as of this encounter Visit Diagnoses Not on filedocumented in this encounter Additional Health Concerns Assessment Noted Time PHQ-9 Depression Total Score: 10 024 9:41 AM EDT documented as of this encounter Care Teams C Winforms Developer Relationship Specialty Start Date End Date Amy Pickett MD [address] [place] [address] PCP - General Internal Medicine 04/07/23 documented as of this encounter
--- OUTSIDE RECORDS SUMMARY | 2025-04-19 09:00 | XMS_ITS | Encounter Summary ---
Author Organization [employer] Address [address] [place] [address] 7 [place] [address] Care Team Providers Care Creative Strategist Name Role Phone Amy Pickett MD Primary Care Pro vider Reason for Visit * Reason Onset Date Comments Med Refill 04/09/2024 Encounter Details Date Type Department Care Team (Late st Contact Info) Description 04/09/2024 Telephone [facility] 230 [place], [place] [phone] Amy Pickett MD 230 [place], [place] [phone] Med Refill Social History Tobacco Use Types [...] be sent to: [facility]/pharmacy #[id number] documented in this encounter Plan of Treatment Upcoming Encounters Date Type Department Care Team (Late st Contact Info) Description 05/03/2025 11:00 AM EDT Office Visit [facility] [address] [place] [address] 06/10/2025 1:45 PM EST Office Visit [facility] [address] [place] [address] Annmarie Ellington MD [address] [place] [address] documented as of this encounter Visit Diagnoses Not on filedocumented in this encounter Additional Health Concerns Assessment Noted Time PHQ-9 Depression Total Score: 10 024 9:41 AM EDT documented as of this encounter Care Teams Creative Strategist Relationship Specialty Start Date End Date Amy Pickett MD [address] [place] [address] PCP - General Internal Medicine 04/07/23 documented as of this encounter
--- OUTSIDE RECORDS SUMMARY | 2025-04-19 09:00 | XMS_ITS | Encounter Summary ---
Author Organization [employer] Address [address] [place] [address] 7 [place] [address] Care Team Providers Care Bleacher Sulfite Pulp Name Role Phone Amy Pickett MD Primary Care Pro vider Reason for Visit * Reason Onset Date Comments call back requesting 03/03/2025 Encounter Details Date Type Department Care Team ([facility] st Contact Info) Description 03/03/2025 Telephone [facility] 230 [place], [place] [phone] Amy Pickett MD 230 [place] [address] call back requesting Social History Tobacco Use [...] the pt and spoke with the pt COAL TOWER OPERATOR Domenica (HIPAA compliant) in regards to the [...] Domenica called the pt urologist at [facility] for guidance as the [...] out of he's body. Contact pt at [phone] documented in this encounter Plan of Treatment Upcoming Encounters Date Type Department Care Team (Late st Contact Info) Description 05/03/2025 11:00 AM EDT Office Visit [facility] [address] [place] [address] 06/10/2025 1:45 PM EST Office Visit [address] [address] Annmarie Ellington MD [address] [place] [address] documented as of this encounter Visit Diagnoses Not on filedocumented in this encounter Additional Health Concerns Assessment Noted Time PHQ-9 Depression Total Score: 0 11/25/19 25 2:10 PM EDT documented as of this encounter Care Teams Bleacher Sulfite Pulp Relationship Specialty Start Date End Date Amy Pickett MD [address] [place] [address] PCP - General Internal Medicine 04/07/23 documented as of this encounter
--- OUTSIDE RECORDS SUMMARY | 2025-04-19 09:00 | XMS_ITS | Encounter Summary ---
Author Organization [employer] Address [address] [facility] 7 [place] [address] Care Team Providers Care Puppy Walker Name Role Phone Amy Pickett MD Primary Care Pro vider Reason for Visit * Reason Onset Date Comments Results 10/01/2024 Encounter Details Date Type Department Care Team ([facility] st Contact Info) Description 10/01/[address] [facility] 230 [place], [place] [phone] Amy Pickett MD 230 [place] [address] Results Social History Tobacco Use Types Packs/Day [...] Blood Test Date when done: 09/29/24 Facility: [facility] Contact pt at [phone] documented in this encounter Plan of Treatment Upcoming Encounters Date Type Department Care Team (Late st Contact Info) Description 05/03/2025 11:00 AM EDT Office Visit [facility] [address] [place] [address] 06/10/2025 1:45 PM EST Office Visit [facility] [address] [place] [address] Annmarie Ellington MD 230 [place] [address] documented as of this encounter Visit Diagnoses Not on filedocumented in this encounter Additional Health Concerns Assessment Noted Time PHQ-9 Depression Total Score: 10 024 9:41 AM EDT documented as of this encounter Care Teams Puppy Walker Relationship Specialty Start Date End Date Amy Pickett MD [address] [place] [address] PCP - General Internal Medicine 04/07/23 documented as of this encounter
--- OUTSIDE RECORDS SUMMARY | 2025-04-19 09:00 | XMS_ITS | Encounter Summary ---
Author Organization [employer] Address [address] [place] [address] 7 [place] [address] Care Team Providers Care High School Music Instructor Name Role Phone Amy Pickett MD Primary Care Pro vider Reason for Visit * Reason Onset Date Comments Med Refill 05/13/2024 Encounter Details Date Type Department Care Team ([facility] st Contact Info) Description 05/13/2024 Telephone [facility] 230 [place], [place] [phone] Amy Pickett MD 230 [place], [place] [phone] Med Refill Social History Tobacco Use Types [...] immediate release tablet To be sent to: [facility]/pharmacy #[id number] documented in this encounter Plan of Treatment Upcoming Encounters Date Type Department Care Team (Late st Contact Info) Description 05/03/2025 11:00 AM EDT Office Visit [facility] [address] [place] [address] 06/10/2025 1:45 PM EST Office Visit [facility] [address] [place] [address] Annmarie Ellington MD 230 [place] [address] documented as of this encounter Visit Diagnoses Not on filedocumented in this encounter Additional Health Concerns Assessment Noted Time PHQ-9 Depression Total Score: 10 024 9:41 AM EDT documented as of this encounter Care Teams High School Music Instructor Relationship Specialty Start Date End Date Amy Pickett MD [address] [place] [address] PCP - General Internal Medicine 04/07/23 documented as of this encounter
--- OUTSIDE RECORDS SUMMARY | 2025-04-19 09:00 | XMS_ITS | Encounter Summary ---
Author Organization [employer] Address 75 [facility] 7t [place] [address] Care Team Providers Care Local Sales Manager Name Role Phone Amy Pickett MD Primary Care Pro vider Encounter Details Date Type Department Care Team ([facility] st Contact Info) Description 10/01/2024 Orders Only [facility] [address] [place], [place] [phone] Za Preston MD 505 [place] [address] Social History Tobacco Use Types Packs/Day Years [...] 11:00 AM EDT Office Visit [facility] [address] [place] [address] 06/10/2025 1:45 PM EST Office Visit [facility] [address] [place] [address] Annmarie Ellington MD [address] [place] [address] documented as of this encounter Visit Diagnoses Not on filedocumented in this encounter Additional Health Concerns Assessment Noted Time PHQ-9 Depression Total Score: 10 024 9:41 AM EDT documented as of this encounter Care Teams Local Sales Manager Relationship Specialty Start Date End Date Amy Pickett MD [address] [place] [address] PCP - General Internal Medicine 04/07/23 documented as of this encounter
--- OUTSIDE RECORDS SUMMARY | 2025-04-19 09:00 | XMS_ITS | Clinical Summary ---
Author Organization [employer] [facility] Address [address] [place] [address] Care Team Providers Care Size Worker Name Role Phone Ba Maria MD Primary Care Provider Surgical History Surgery Date Site/Laterality Comments FOOT SURGERY PROCEDURE: MD UNLISTED PROCEDURE FOOT/TOES; COMMENT: left foot bunion removal LIPOMA RESECTION PROCEDURE: SKIN TISSUE EXCISION(LIPOMA) OTHER SURGICAL HISTORY PROCEDURE: ---- OTHER ----; COMMENT: urethral surgeries done? three times in [facility] for difficulty urinating Medical History Medical History Date Comments Chronic back pain DX:Chronic alonso k pain Asthma DX:Asthma Anxiety DX:Anxiety; COMM ENT: follows at [facility] psychiatry Family History Medical History [...] Health Maintenance Due Date Last Done Comments Colorectal Cancer Screening: Colonoscopy 1967 Hepatitis B Vaccines (1 of 3 - 19+ 3-dose series) 12/23/1986 Zoster Vaccines (2 of 2) 07/10/2020 05/15/2020 Pneumococcal Vaccine: 50+ Years (2 of 2 - PCV) 05/15/2021 05/15/2020, 08/10/2019, 01/02/2018, Additional history exists Cholesterol Screening (Lipid Panel) 06/09/2022 HIV Screening 06/09/2022 Hepatitis C Screening [...] age to complete this topic Care Teams Size Worker Relationship Specialty Start Date End Date Ba Maria MD PCP - General Internal Medicine 10/26/12
--- OUTSIDE RECORDS SUMMARY | 2025-04-19 09:00 | XMS_ITS | Encounter Summary ---
Author Organization [employer] Address [address] [facility] 7t [place] [address] Care Team Providers Care Sponsorship Coordinator Name Role Phone Amy Pickett MD Primary Care Pro vider Encounter Details Date Type Department Care Team ([facility] st Contact Info) Description 09/01/[address] [facility] 230 [place], [place] [phone] Amy Pickett MD 230 [place], [place] [phone] Social History Tobacco Use Types Packs/Day Years [...] EDT Office Visit [facility] [address] [place] [address] 06/10/2025 1:45 PM EST Office Visit [address] [address] Annmarie Ellington MD [address] [place] [address] documented as of this encounter Visit Diagnoses Not on filedocumented in this encounter Additional Health Concerns Assessment Noted Time PHQ-9 Depression Total Score: 10 024 9:41 AM EDT documented as of this encounter Care Teams Sponsorship Coordinator Relationship Specialty Start Date End Date Amy Pickett MD [address] [place] [address] PCP - General Internal Medicine 04/07/23 documented as of this encounter
--- OUTSIDE RECORDS SUMMARY | 2025-04-19 09:00 | XMS_ITS | Encounter Summary ---
Author Organization [employer] Address [address] [facility] 7t [place] [address] Care Team Providers Care Industrial Psychologist Name Role Phone Elise Glover TANKER TRUCK DRIVER Primary Care Provider Amy Ware MD Primary Care Pro vider Reason for Visit * Reason Comments Med Change Request Encounter Details Date Type Department Care Team (Late st Contact Info) Description 03/03/2023 Refill [facility] [address] [place] [address] Elise Glover FNP Essential hypertension Social History [...] 11:00 AM EDT Office Visit [facility] MEDICINE [address] [place] [address] 06/10/2025 1:45 PM EST Office Visit [facility]INE 230 [place], [place] [phone] Annmarie Ellington MD 230 [place] [address] documented as of this encounter Visit Diagnoses Diagnosis Essential hypertension Unspecified essential hypertension documented in this encounter Additional Health Concerns Assessment Noted Time PHQ-9 Depression Total Score: 24 023 10:05 AM EDT documented as of this encounter Care Teams Industrial Psychologist Relationship Specialty Start Date End Date Elise Glover FNP PCP - General Family Medicine 07/09/22 04/06/23 Amy Pickett MD 230 [place] [address] PCP - General Internal Medicine 04/07/23 documented as of this encounter
--- OUTSIDE RECORDS SUMMARY | 2025-04-19 09:00 | XMS_ITS | Clinical Summary ---
Author Organization [facility] Address [address] [place] [address] Care Team Providers Care Hull Molder Name Role Phone Donna Harmon MD Primary [...] Sigmoidoscopy 12/23/2016 Influenza Vaccine (#1) 2025 Insurance [facility] [place] JAIMES [phone] Care Teams Hull Molder Relationship Specialty Start Date End Date Donna Harmon MD PCP - General 05/11/19
--- OUTSIDE RECORDS SUMMARY | 2025-04-19 09:01 | XMS_ITS | Encounter Summary ---
Author Organization [employer] Address [address] [place] [address] 7 [place] [address] Care Team Providers Care Benefits Specialist Recruiter Name Role Phone Elise Glover SERVICE CASHIER Primary Care Provider Amy Ware MD Primary Care Pro vider Reason for Visit * Reason Onset Date Comments triage 08/22/2022 Encounter Details Date Type Department Care Team (Late st Contact Info) Description 08/22/2022 Telephone [facility] [address] [place] [address] Elise Glover SERVICE CASHIER triage Social History Tobacco Use Types Packs/Day [...] Description 05/03/2025 11:00 AM EDT Office Visit [address] [phone] 06/10/2025 1:45 PM EST Office Visit [facility] 230 [place] [address] Annmarie Ellington MD 230 [place], [place] [phone] documented as of this encounter Visit Diagnoses Not on filedocumented in this encounter Care Teams Benefits Specialist Recruiter Relationship Specialty Start Date End Date Elise Glover FNP PCP - General Family Medicine 07/09/22 04/06/23 Amy Pickett MD 230 [place], [place] [phone] PCP - General Internal Medicine 04/07/23 documented as of this encounter
--- OUTSIDE RECORDS SUMMARY | 2025-04-19 09:01 | XMS_ITS | Encounter Summary ---
Author Organization [employer] Address [address] [place] [address] 7 [place] [address] Care Team Providers Care Recruiting Manager Name Role Phone Amy Pickett MD Primary Care Pro vider Reason for Visit * Reason Onset Date Comments Med Refill 03/24/2025 Encounter Details Date Type Department Care Team (Late st Contact Info) Description 03/24/2025 Telephone [facility] 230 [place], [place] [phone] Amy Pickett MD 230 [place], [place] [phone] Med Refill Social History Tobacco Use Types [...] immediate release tablet To be sent to: [facility]/pharmacy #[id number] documented in this encounter Plan of Treatment Upcoming Encounters Date Type Department Care Team (Late st Contact Info) Description 05/03/2025 11:00 AM EDT Office Visit [facility] [address] [place] [address] [phone] 06/10/2025 1:45 PM EST Office Visit [facility] [address] [place] [address] Annmarie Ellington MD [address] [place] [address] documented as of this encounter Visit Diagnoses Not on filedocumented in this encounter Additional Health Concerns Assessment Noted Time PHQ-9 Depression Total Score: 0 11/25/19 25 2:10 PM EDT documented as of this encounter Care Teams Recruiting Manager Relationship Specialty Start Date End Date Amy Pickett MD [address] [place] [address] PCP - General Internal Medicine 04/07/23 documented as of this encounter
--- OUTSIDE RECORDS SUMMARY | 2025-04-19 09:01 | XMS_ITS | Encounter Summary ---
Author Organization [employer] Address [address] [place] [address] 7t [place] [address] Care Team Providers Care Transition Advisor Name Role Phone Elise Glover COMMISSIONING AGENT Primary Care Provider Amy Ware MD Primary Care Pro vider Reason for Visit * Reason Onset Date Comments Durable Medical Equipment 10/07/2022 Encounter Details Date Type Department Care Team (Late st Contact Info) Description 10/07/2022 Telephone [facility] 230 [place] [address] Elise Glover, COMMISSIONING AGENT Durable Medical Equipment Social History Tobacco Use [...] providers signature * Telephone Encounter - Shereen Sethi Alma - 10/07/2022 11:47 AM EDT Tc from [facility]le with N requesting a script for Shower Chair, Had held shower held, Non-slip Mat, Med Reminder, and a Toilet riser. If any questions please contact Anabelle at [phone] documented in this encounter Plan of Treatment Upcoming Encounters Date Type Department Care Team (Late st Contact Info) Description 05/03/2025 11:00 AM EDT Office Visit [address] [address] 06/10/2025 1:45 PM EST Office Visit [address] [address] Annmarie [place]ington MD [address] [place] [address] documented as of this encounter Visit Diagnoses Not on filedocumented in this encounter Additional Health Concerns Assessment Noted Time PHQ-9 Depression Total Score: 24 023 10:05 AM EDT documented as of this encounter Care Teams Transition Advisor Relationship Specialty Start Date End Date Elise Glover FNP PCP - General Family Medicine 07/09/22 04/06/23 Amy Pickett MD [address] [place] [address] PCP - General Internal Medicine 04/07/23 documented as of this encounter
--- OUTSIDE RECORDS SUMMARY | 2025-04-19 09:01 | XMS_ITS | Encounter Summary ---
Author Organization [employer] Address [address] [place] [address] 7 [place] [address] Care Team Providers Care Green Prize Packer Name Role Phone Amy Pickett MD Primary Care Pro vider Reason for Visit * Reason Onset Date Comments Med Refill 02/24/2025 Encounter Details Date Type Department Care Team ([facility] st Contact Info) Description 02/24/2025 Telephone [facility] MEDICINE 230 [place], [place] [phone] Amy Pickett MD 230 [place], [place] [phone] Med Refill Social History Tobacco Use Types [...] release tablet To be sent to: [facility]/pharmacy #[id number] documented in this encounter Plan of Treatment Upcoming Encounters Date Type Department Care Team (Late st Contact Info) Description 05/03/2025 11:00 AM EDT Office Visit [facility] MEDICINE [address] [place] [address] [phone] 06/10/2025 1:45 PM EST Office Visit [facility] MEDICINE [address] [place] [address] Annmarie [place]ington MD [address] [place] [address] documented as of this encounter Visit Diagnoses Not on filedocumented in this encounter Additional Health Concerns Assessment Noted Time PHQ-9 Depression Total Score: 0 11/25/19 25 2:10 PM EDT documented as of this encounter Care Teams Green Prize Packer Relationship Specialty Start Date End Date Amy Pickett MD [address] [place] [address] PCP - General Internal Medicine 04/07/23 documented as of this encounter
--- OUTSIDE RECORDS SUMMARY | 2025-04-19 09:01 | XMS_ITS | Encounter Summary ---
Author Organization [employer] Address [address] [place] [address] 7 [place] [address] Care Team Providers Care Near East Archeology Professor Name Role Phone Amy Pickett MD Primary Care Pro vider Reason for Visit * Reason Onset Date Comments Med Refill 2024 Encounter Details Date Type Department Care Team ([facility] st Contact Info) Description 2024 Telephone [facility] 230 [place], [place] [phone] Amy Pcikett MD 230 [place], [place] [phone] Med Refill Social History Tobacco Use Types [...] immediate release tablet To be sent to: [facility]/pharmacy #[id number] documented in this encounter Plan of Treatment Upcoming Encounters Date Type Department Care Team (Late st Contact Info) Description 05/03/2025 11:00 AM EDT Office Visit [facility] [address] [place] [address] 06/10/2025 1:45 PM EST Office Visit [facility] [address] [place] [address] Annmarie Ellington MD 230 [place] [address] documented as of this encounter Visit Diagnoses Not on filedocumented in this encounter Additional Health Concerns Assessment Noted Time PHQ-9 Depression Total Score: 0 11/25/19 25 2:10 PM EDT documented as of this encounter Care Teams Near East Archeology Professor Relationship Specialty Start Date End Date Amy Pickett MD [address] [place] [address] PCP - General Internal Medicine 04/07/23 documented as of this encounter
--- OUTSIDE RECORDS SUMMARY | 2025-04-19 09:01 | XMS_ITS | Encounter Summary ---
Author Organization [employer] Address 75 [facility] 7 [place] [address] Care Team Providers Care Gas Regulator Repairer Name Role Phone Amy Pickett MD Primary Care Pro vider Reason for Visit * Reason Onset Date Comments Medication Question 03/17/2025 Encounter Details Date Type Department Care Team ([facility] st Contact Info) Description 03/17/2025 Telephone [facility] MEDICINE [address] [place], [place] [phone] Amy Pickett MD 230 [place] [address] Medication Question Social History Tobacco Use Types [...] pain killer. Any questions contact pt at [phone] * Telephone Encounter - Andrew Maldonado - 03/17/2025 11:19 AM EDT Tc from [facility], pt's ICER MACHINE, stating pt had a surgery done but due to pt being prescribed Oxycodone they were unable to prescribe pt any pain medication. Domenica is hoping pt can be prescribed some sort of muscle relaxer or an accomodation to be prescribed medication. If any questions please contact Domenica at [phone]. documented in this encounter Plan of Treatment Upcoming Encounters Date Type Department Care Team ([facility] st Contact Info) Description 05/03/2025 11:00 AM EDT Office Visit [facility] MEDICINE [address] [place] [address] 06/10/2025 1:45 PM EST Office Visit [facility] MEDICINE [address] [place], [place] [phone] Annmarie Ellington MD 230 [place] [address] documented as of this encounter Visit Diagnoses Not on filedocumented in this encounter Additional Health Concerns Assessment Noted Time PHQ-9 Depression Total Score: 0 11/25/19 25 2:10 PM EDT documented as of this encounter Care Teams Gas Regulator Repairer Relationship Specialty Start Date End Date Amy Pickett MD 230 [place], [place] [phone] PCP - General Internal Medicine 04/07/23 documented as of this encounter
--- OUTSIDE RECORDS SUMMARY | 2025-04-19 09:01 | XMS_ITS | Encounter Summary ---
Author Organization [employer] Address 75 [facility] 7 [place] [address] Care Team Providers Care Integrity Specialist Name Role Phone Amy Pickett MD Primary Care Pro vider Reason for Visit * Reason Onset Date Comments FYI 03/16/2025 Encounter Details Date Type Department Care Team ([facility] st Contact Info) Description 03/16/2025 Telephone [facility] MEDICINE 230 [place], [place] [phone] Amy Pickett MD 230 [place] [address] FYI Social History Tobacco Use Types Packs/Day [...] who reports pt currently having surgery at [facility] through [facility] to get SNS device removed so that he can have MRI done as he couldn't have MRI with the implant and he has excruciating 10/10 shoulder pain and can't lift his arm. Advised to call [facility] centralized scheduling to r/s MRI now that implant is being removed. Texted her their phone number via [employer] text at her request. She reports that [...] group appt be changed to a normal STEEL ROLLER appt. Seeing as though he is having [...] anything out of it. Would rather do STEEL ROLLER visits. Informed I would send message regarding this. * Telephone Encounter - Jesusita Castellanos - 03/16/2025 3:01 PM EDT Tc from [facility] stating specialist pritesh to give him an emergency surgery to get the implant out. So now pt is able to do MRI. documented in this encounter Plan of Treatment Upcoming Encounters Date Type Department Care Team (Late st Contact Info) Description 05/03/2025 11:00 AM EDT Office Visit [address] [address] 06/10/2025 1:45 PM EST Office Visit [address] [address] Annmarie Ellington MD 230 [place] [address] documented as of this encounter Visit Diagnoses Not on filedocumented in this encounter Additional Health Concerns Assessment Noted Time PHQ-9 Depression Total Score: 0 11/25/19 2:10 PM EDT documented as of this encounter Care Teams Integrity Specialist Relationship Specialty Start Date End Date Amy Pickett MD [address] [place] [phone] PCP - General Internal Medicine 04/07/23 documented as of this encounter
--- OUTSIDE RECORDS SUMMARY | 2025-04-19 09:01 | XMS_ITS | Encounter Summary ---
Author Organization [employer] Address 75 [facility] 7 [place] [address] Care Team Providers Care Freezer Machine Operator Name Role Phone Amy Pickett MD Primary Care Pro vider Reason for Visit * Reason Comments Med Refill Encounter Details Date Type Department Care Team ([facility] st Contact Info) Description 06/17/2024 Refill [facility] MEDICINE [address] [place], [place] [phone] Amy Pickett MD [address] [place] [address] Social History Tobacco Use Types Packs/Day Years [...] [facility] MEDICINE [address] [place] [address] 06/10/2025 1:45 PM EST Office Visit [address] [address] Annmarie Ellington MD [address] [place] [address] documented as of this encounter Visit Diagnoses Not on filedocumented in this encounter Additional Health Concerns Assessment Noted Time PHQ-9 Depression Total Score: 10 024 9:41 AM EDT documented as of this encounter Care Teams Freezer Machine Operator Relationship Specialty Start Date End Date Amy Pickett MD [address] [place] [phone] PCP - General Internal Medicine 04/07/23 documented as of this encounter
--- OUTSIDE RECORDS SUMMARY | 2025-04-19 09:01 | XMS_ITS | Encounter Summary ---
Author Organization [employer] Address [address] [place] [address] 7t [place] [address] Care Team Providers Care Eyeglass Frames Polisher Name Role Phone Elise Glover ROVING TECHNICIAN Primary Care Provider Amy Ware MD Primary Care Pro vider Encounter Details Date Type Department Care Team (Late st Contact Info) Description 01/14/2023 Orders Only [facility] MEDICINE [address] [place] [phone] Elise Glover FNP Social History Tobacco Use [...] Description 05/03/2025 11:00 AM EDT Office Visit [facility] MEDICINE [address] [place] [address] [phone] 06/10/2025 1:45 PM EST Office Visit [address] [phone] Annmarie Ellington MD [address] [place] [address] documented as of this encounter Visit Diagnoses Not on filedocumented in this encounter Additional Health Concerns Assessment Noted Time PHQ-9 Depression Total Score: 24 023 10:05 AM EDT documented as of this encounter Care Teams Eyeglass Frames Polisher Relationship Specialty Start Date End Date Elise Glover FNP PCP - General Family Medicine 07/09/22 04/06/23 Amy Pickett MD 230 [place] [address] PCP - General Internal Medicine 04/07/23 documented as of this encounter
--- OUTSIDE RECORDS SUMMARY | 2025-04-19 09:01 | XMS_ITS | Encounter Summary ---
Author Organization [employer] Address 75 [facility] 7 [place] [address] Care Team Providers Care Bone Char Puller Name Role Phone Amy Pickett MD Primary Care Pro vider Reason for Visit * Reason Onset Date Comments Nurse Triage 03/17/2025 Encounter Details Date Type Department Care Team ([facility] st Contact Info) Description 03/17/2025 Telephone [facility] MEDICINE 230 [place], [place] [phone] Amy Pickett MD 230 [place] [address] Nurse Triage Social History Tobacco Use Types [...] to Zain Lazcano to triage below at [phone]. Pt states having a procedure done to [...] Is currently on the phone with a coin machine collector supervisor [facility]. She states that pt. 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 Pt. Luz Marina states that PCP will not give pt. Additional pain medication because pt. Is alreadyon Oxycodone. I advised that I will write this down as pt. Is currently speaking with a Machining Department Supervisor. * Telephone Encounter - James Diana - 03/17/2025 4:02 PM EDT Symptom: Shoulder Pain - Not From Injury Outcome: Schedule an urgent appointment (within 1 hour) or talk to a nurse or provider soon Reason: Severe pain now The caller accepted this outcome. Contact pt at [phone] Pt was requesting for tramadol for his shoulder pain. Pt was already advised that he cannot take tramadol and Oxycodone at the same time. documented in this encounter Plan of Treatment Upcoming Encounters Date Type Department Care Team (Late st Contact Info) Description 05/03/2025 11:00 AM EDT Office Visit [facility] MEDICINE [address] [place] [address] 06/10/2025 1:45 PM EST Office Visit [facility] MEDICINE [address] [place] [address] Annmarie Ellington MD [address] [place] [address] documented as of this encounter Visit Diagnoses Not on filedocumented in this encounter Additional Health Concerns Assessment Noted Time PHQ-9 Depression Total Score: 0 11/25/19 25 2:10 PM EDT documented as of this encounter Care Teams Bone Char Puller Relationship Specialty Start Date End Date Amy Pickett MD [address] [place] [phone] PCP - General Internal Medicine 04/07/23 documented as of this encounter
--- OUTSIDE RECORDS SUMMARY | 2025-04-19 09:01 | XMS_ITS | Encounter Summary ---
Author Organization [employer] Address 75 [facility] 7 [place] [address] Care Team Providers Care Fagoting Machine Operator Name Role Phone Amy Pickett MD Primary Care Pro vider Reason for Visit * Reason Onset Date Comments Med Refill 02/11/2024 Encounter Details Date Type Department Care Team (Late st Contact Info) Description 02/11/2024 Telephone [facility] MEDICINE 230 [place], [place] [phone] Amy Pickett MD 230 [place], [place] [phone] Med Refill Social History Tobacco Use Types [...] To be sent to: [id number] [address] documented in this encounter Plan of Treatment Upcoming Encounters Date Type Department Care Team (Late st Contact Info) Description 05/03/2025 11:00 AM EDT Office Visit [facility] MEDICINE [address] [place] [address] 06/10/2025 1:45 PM EST Office Visit [facility] MEDICINE [address] [place] [address] Annmarie Ellington MD [address] [place] [address] documented as of this encounter Visit Diagnoses Not on filedocumented in this encounter Additional Health Concerns Assessment Noted Time PHQ-9 Depression Total Score: 24 023 10:05 AM EDT documented as of this encounter Care Teams Fagoting Machine Operator Relationship Specialty Start Date End Date Amy Pickett MD [address] [place] [phone] PCP - General Internal Medicine 04/07/23 documented as of this encounter
--- OUTSIDE RECORDS SUMMARY | 2025-04-19 09:01 | XMS_ITS | Encounter Summary ---
Author Organization [employer] Address [address] [facility] [address] 7t [place] [address] Care Team Providers Care Video Production Specialist Name Role Phone Amy Pickett MD Primary Care Pro vider Encounter Details Date Type Department Care Team (Late st Contact Info) Description 06/24/2024 Orders Only [facility] MEDICINE 230 [place] [address] Provider, MD Bryan Social History Tobacco Use [...] Description 05/03/2025 11:00 AM EDT Office Visit [facility] MEDICINE [address] [place] [address] 06/10/2025 1:45 PM EST Office Visit [address] [address] Annmarie Ellington MD [address] [place] [address] documented as of this encounter Procedures Procedure Name Priority Date/Time Associated Diagnosis Comments COLONOSCOPY Routine 01/06/2018 8:00 AM EDT documented in this encounter Results * Colonoscopy (01/06/2018 8:00 AM EDT) us Historical Provider HEALTH MAINTENANCE Final Result documented in this encounter Visit Diagnoses Not on filedocumented in this encounter Additional Health Concerns Assessment Noted Time PHQ-9 Depression Total Score: 10 024 9:41 AM EDT documented as of this encounter Care Teams Video Production Specialist Relationship Specialty Start Date End Date Amy Pickett MD [address] [place] [phone] PCP - General Internal Medicine 04/07/23 documented as of this encounter
--- OUTSIDE RECORDS SUMMARY | 2025-04-19 09:01 | XMS_ITS | Encounter Summary ---
Author Organization [employer] Address [address] [place] [address] 7 [place] [address] Care Team Providers Care Insurance Territory Manager Name Role Phone Amy Pickett MD Primary Care Pro vider Reason for Visit * Reason Onset Date Comments Med Refill 10/27/2024 Encounter Details Date Type Department Care Team ([facility] st Contact Info) Description 10/27/2024 Telephone [facility] MEDICINE 230 [place], [place] [phone] Amy Pickett MD 230 [place], [place] [phone] Med Refill Social History Tobacco Use Types [...] immediate release tablet To be sent to: [id number] documented in this encounter Plan of Treatment Upcoming Encounters Date Type Department Care Team (Late st Contact Info) Description 05/03/2025 11:00 AM EDT Office Visit [facility] MEDICINE [address] [place] [address] 06/10/2025 1:45 PM EST Office Visit [facility] MEDICINE [address] [place] [address] Annmarie Ellington MD 230 [place] [address] documented as of this encounter Visit Diagnoses Not on filedocumented in this encounter Additional Health Concerns Assessment Noted Time PHQ-9 Depression Total Score: 10 024 9:41 AM EDT documented as of this encounter Care Teams Insurance Territory Manager Relationship Specialty Start Date End Date Amy Pickett MD [address] [place] [address] PCP - General Internal Medicine 04/07/23 documented as of this encounter
--- OUTSIDE RECORDS SUMMARY | 2025-04-19 09:01 | XMS_ITS | Encounter Summary ---
Author Organization [employer] Address 75 [facility] 7 [place] [address] Care Team Providers Care Data Lead Name Role Phone Amy Pickett MD Primary Care Pro vider Reason for Visit * Reason Onset Date Comments Appointment Request 09/02/2023 Encounter Details Date Type Department Care Team ([facility] st Contact Info) Description 09/02/2023 Telephone [facility] 230 [place], [place] [phone] Amy Pickett MD 230 [place] [phone] Appointment Request Social History Tobacco Use Types [...] t he electric, gas, oil or water [employer] threatened to shut off services in your [...] from pt requesting a transfer patient appointment. Plane Tender does not see any availability. Pt states he needs appointment as soon as possible due to controlled medication. States needs to be seen bya new provider to continue medication. Please contact pt at [phone] documented in this encounter Plan of Treatment Upcoming Encounters Date Type Department Care Team (Late st Contact Info) Description 05/03/2025 11:00 AM EDT Office Visit [facility] MED[facility] [address] [place] [address] 06/10/2025 1:45 PM EST Office Visit [address] [address] Annmarie Ellington MD [address] [place] [address] documented as of this encounter Visit Diagnoses Not on filedocumented in this encounter Additional Health Concerns Assessment Noted Time PHQ-9 Depression Total Score: 24 023 10:05 AM EDT documented as of this encounter Care Teams Data Lead Relationship Specialty Start Date End Date Amy Pickett MD [address] [place] [address] PCP - General Internal Medicine 04/07/23 documented as of this encounter
--- OUTSIDE RECORDS SUMMARY | 2025-04-19 09:01 | XMS_ITS | Clinical Summary ---
Author Organization [employer] Address [address] [place] [address] [address] [place] [address] Care Team Providers Care Gauge And Weigh Machine Adjuster Name Role Phone Amy Pickett MD Primary [...] Active Nebulizers (Comp-Air Elite Compact Neb) [facility] Active Blood Pressure Monitor kit 1 each [...] vomiting. 60 tablet 1 023 Active pancrelipase, Fcc-Ayiu-Fuzl, (Creon) 1716-1233 units capsule Take 1 capsule by mouth [...] oxyCODONE (Roxicodone) 15 MG immediate release tabletIndicatio ns:SUPERVISOR PIPELINE MAINTENANCE checked 06/13/22 Take 1 tablet (15 mg) by mouth every 6 (six) hours for 28 days. 112 tablet 025 2024 Active ipratropium-alb uterol (Combivent Respimat) 20-100 MCG/ACT inhalerIndicati ons:Moderate persistent asthma without complication INHALE 2 PUFFS BY MOUTH EVERY 6 HOURS 4 g 3 025 2024 Discontinued(R eorder (will not trigger notification to Pharmacy)) oxyCODONE (Roxicodone) 15 MG immediate release tabletIndicatio ns:SUPERVISOR PIPELINE MAINTENANCE checked 06/13/22 Take 1 tablet (15 mg) by mouth every 6 (six) hours for 28 days. 112 tablet 025 2024 Discontinued(R eorder (will not trigger notification to Pharmacy)) tiZANidine (Zanaflex) 2 MG tablet Take 1 tablet (2 mg) by mouth every 12 (twelve) hours if needed for muscle spasms for up to 15 days. 30 tablet 025 2024 Discontinued(O ther) cyclobenzaprine (Flexeril) 5 MG tabletIndicatio ns:Chronic right shoulder pain Take 1 tablet (5 mg) by mouth if needed each day for muscle spasms for up to 15 days. 15 tablet 025 2024 Active Problems Problem Noted [...] recommended. -Supportive care advised. -Isolation recommendations discussed. [facility] 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 2023 Overview (01/25/2025): Dx: chronic neck, low back pain, LE claudication Rx: Oxycodone 15mg IR q 6 hours Last SUPERINTENDENT ELECTRIC POWER agreement: 09/28/24 Tier: 1 (monthly SUPERINTENDENT ELECTRIC POWER visits) Additional considerations: Alprazolam 1mg for anxiety Assessment & Plan (01/25/2025 1:45 PM EDT): Timeline: -previous positive utox for cocaine 11/2023 -09/28/24: Group - utox/pill count wnl -01/25/25: Group - Pill count as expected, Utox pos cocaine. Confirmatory testing sent. Chronic obstructive pulmonar y disease, unspecified COPD type ([facility]CC) 05/16/2024 Overview (09/05/2024): Following with [facility] pulmonology-Dr. Maldonado Continue with Combivent inhaler Claudication [...] Injections 11/2022 Encouraged stretching Will refer to [facility] Continue SUPERINTENDENT ELECTRIC POWER at this time. Will perform random Utox [...] root compression . Seen by Neurosurgery at [facility], note pending Referred to Pain Management November 2024 Assessment & Plan (01/25/2025 1:44 PM EDT): -Good engagement and participation with Group Medical Visit model -Encouraged multifactorial approach to pain control including pharm and non- pharm modalities -Pill count as expected, Utox pos cocaine. Confirmatory testing sent. See dev manager. Assessment & Plan (09/28/2024 2:02 PM EDT): [...] C7 fracture seen on CT scan at [facility] 10/28/23 He participated fully in group [...] C7 fracture seen on CT scan at [facility] 10/28/23 He participated fully in group [...] Injections 11/2022 Encouraged stretching Will refer to [facility] physical therapy Continue SUPERINTENDENT ELECTRIC POWER at this time. Will perform random Utox [...] lumbar pain. Encouraged stretching Will refer to [facility] Continue SUPERINTENDENT ELECTRIC POWER at this time. Will perform random Utox [...] organization. Date Type Department Care Team Description 04/15/2025 Telephone [facility] [address] [place] [phone] Amy Pickett MD Durable Medical Equipment 04/12/[address] [address] Amy Pickett MD Transfer PCP request 04/11/[address] [address] Amy Pickett MD 04/06/[address] [address] Amy Pickett MD Durable Medical Equipment 03/31/2025 Orders Only [facility] External Provider, [facility] 03/29/2025 9:45 AM EDT Clinical Support [address] [address] 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 RN Chronic right shoulder pain (Primary Dx) 03/29/2025 Telephone [facility] [address] [place] [address] 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 RN 03/29/2025 Orders Only [address] [address] Amy Pickett MD Chronic right shoulder pain (Primary Dx) 03/29/2025 Telephone [facility] [address] [place] [address] 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 RN 03/29/2025 Travel 03/24/2025 Refill [facility] [address] [place] [address] 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 RN Chronic pain of both knees; Chronic low back pain, unspecified back pain laterality, unspecified whether sciatica present 03/24/2025 Refill [facility] [address] [place] [address] Amy Pickett MD Moderate persistent asthma without complication 03/24/[address] [address] Amy Pickett MD Med Refill 03/22/2025 Orders Only [facility] External Provider, [facility] 03/18/2025 Orders Only [facility] [address] [place] [address] Amy Pickett MD 03/18/2025 Telephone [facility] [address] [place] [address] Amy Pickett MD Change PCP 03/18/2025 Telephone [facility] [address] [place] [address] 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, DARIANA 03/17/2025 Orders Only [facility] [address] [place] [address] Amy Pickett MD 03/17/2025 Telephone [facility] [address] [place] [address] Amy Pickett MD Nurse Triage 03/17/2025 Telephone [facility] [address] [place] [phone] Amy Pickett MD Medication Question 03/16/2025 Telephone [facility] [address] [place] [address] 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, DARIANA 03/16/2025 Telephone [facility] [address] [place] [address] Amy Pickett MD FYI 03/08/2025 Orders Only [facility] [address] [place] [address] Amy Pickett MD 03/08/2025 Telephone [facility] [address] [place] [address] 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, RN 03/05/2025 Refill [facility] [address] [place] [address] Amy Pickett MD Chronic low back pain, unspecified back pain laterality, unspecified whether sciatica present 03/03/2025 Telephone [facility] [address] [place] [address] Amy Pickett MD Durable Medical Equipment 03/03/2025 Telephone [facility] [address] [place] [phone] Amy Pickett MD call back requesting 03/01/2025 9:10 AM EDT Clinical Support [address] [address] 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, DARIANA terminal make up operator 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 03/01/2025 Orders Only [facility] [address] [place] [address], [place] [address] Amy Pickett MD 03/01/2025 Telephone [facility] [address] [place] [address] 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 RN 03/01/2025 Travel 02/24/2025 Refill [facility] [address] [place] [address] 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 RN Chronic pain of both knees; Chronic low back pain, unspecified back pain laterality, unspecified whether sciatica present 02/24/[address] [address] Amy iPckett MD med 02/24/[address] [address] Amy Pickett MD Med Refill 02/19/2025 Refill [facility] [address] [place] [address] Amy Pickett MD 02/10/2025 9:30 AM EDT Office Visit [address] [address] Amy Pickett MD Cervical spondylosis without myelopathy (Primary Dx); Chronic migraine without aura without status migrainosus, not intractable; Essential hypertension; H/O lipoma; Mass of wrist, right; Claudication of left lower extremity (CMS/HCC); Health care maintenance; Lipoma, unspecified site; [facility] 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; Chronic right shoulder pain; Spondylosis of cervical spine; Chronic bilateral low back pain without sciatica 02/10/2025 Telephone [facility] [address] [place] [address] Amy Pickett MD Change PCP; TRANSFER REQUEST 02/10/2025 Travel 02/08/2025 Refill [facility] [address] [place] [address] Amy Pickett MD 02/03/2025 Refill [facility] [address] [place] [address] Bri Noriega MD 02/01/2025 Telephone [facility] [address] [place] [address] Amy Pickett MD Durable Medical Equipment 01/27/2025 Orders Only [facility] External Provider, [facility] 01/25/2025 9:45 AM EDT Office Visit [address] [address] Holly Wills FNP Spondylosis of cervical spine (Primary Dx); terminal make up operator 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 01/25/2025 Telephone [facility] [address] [place] [address] 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 RN 01/25/2025 Travel 01/21/2025 Refill [facility] [address] [place] [address] Amy Pickett MD Chronic pain of both [...] Description 05/03/2025 11:00 AM EDT Office Visit [facility] [address] [place] [address] 06/10/2025 1:45 PM EST Office Visit [address] [address] Annmarie Ellington MD [address] [place] [address] Health Maintenance Due Date Last Done Comments [...] SCREEN Routine 03/01/2025 10:10 AM EDT terminal make up operator 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 DRUG MONITOR, COCAINE METAB, QN, URINE Routine 03/01/2025 9:32 AM EDT XR WRIST 3+ VIEWS RIGHT Routine 01/27/2025 11:18 AM EDT XR ELBOW 1-2 VIEWS RIGHT Routine 01/27/2025 11:13 AM EDT XR SHOULDER 2+ VIEWS RIGHT Routine 01/27/2025 11:06 AM EDT POCT ROBIN-14 URINE DRUG SCREEN Routine 01/25/2025 10:15 AM EDT Spondylosis of cervical spine [facility] 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 DRUG MONITOR, COCAINE METAB, QN, URINE Routine 01/25/2025 9:30 AM EDT Spondylosis of cervical spine [facility] 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 HEPATITIS C [...] AM EDT Narrative 04/01/2025 11:37 AM EDT [place] [address] Magnetic Resonance Report Signed Patient: Zain Welch MR# : [id number] : 1965 Acct:[id number] Age/Sex: 59 / M ADM Date: 03/31/25 Loc: HO.MRI Attending Dr: Juan David MIRANDA Ordering Physician: Rosangela Cole CNP Date of Service: 03/31/25 Procedure(s): MR cervical spine wo con Accession Number(s): [id number] cc: Rosangela Cole CNP; Amy Pickett MD [...] stenosis. C5-C6: Small posterior disc protrusion. Mild yxte-mgmgafb-fsaj-right neural foraminal narrowing. No significant central canal stenosis. C6-C7: Prken-kc-dwojnwki posterior disc protrusion. Moderate bilateral neural foraminal [...] 04/01/25 1137 DD/ 1136 TD/TT: 04/01/25 1136 Power House Engineer: Procedure Note Donotuseinterpreter, Image - 04/01/2025 [place] [address] Magnetic Resonance Report Signed Patient: Zain Welch LMR# : [id number] : 1965Acct:[id number] Age/Sex: 59 / MADM Date: 03/31/25 Loc: HO.MRI Attending Dr: Juan David MIRANDA Ordering Physician: Rosangela Cole CNP Date of Service: 03/31/25 Procedure(s): MR cervical spine wo con Accession Number(s): [id number] cc: Rosangela Cole CNP; Amy Pickett MD [...] stenosis. C5-C6: Small posterior disc protrusion. Mild usln-pqqhepo-hjwg-right neural foraminal narrowing. No significant central canal stenosis. C6-C7: Ziecp-jy-ynxfevmf posterior disc protrusion. Moderate bilateral neural foraminal [...] 04/01/25 1137 DD/ 1136 TD/TT: 04/01/25 1136 Power House Engineer: [facility] External Provider IMG MRI PROCEDURES Final [...] - 03/29/2025 10:07 AM EDT .UTOX cup Lot#[id number] Exp. 04/12/26 Internal Pass Control Amy Berry MD POINT OF CARE SOHA T ENTER/EDIT ORDERABLES Final Result * XR Pelvis 1-2 Views (03/22/2025 1:32 PM EDT) Anatomical Region Laterality Modality Body, Pelvis Radiographic Maxine ging 03/22/2025 1:32 PM EDT Narrative 03/22/2025 1:45 PM EDT [address] [address] XRay Report Signed Patient: Zain Welch MR# : [id number] : 1965 Acct:[id number] Age/Sex: 59 / M ADM Date: 03/22/25 Loc: HO.TORIJESSICA Attending Dr: Salvador Elliott MD Ordering Physician: Salvador Elliott MD Date of Service: 03/22/25 Procedure(s): XR pelvis 1-2V Accession Number(s): [id number] cc: Salvador Elliott MD; Amy Pickett MD [...] 03/22/25 1343 DD/ 1332 TD/TT: 03/22/25 1335 Power House Engineer: Procedure Note Donotuseinterpreter, Image - 03/22/2025 [place] [address] XRay Report Signed Patient: Zain Welch LMR# : [id number] : 1965Acct:[id number] Age/Sex: 59 / MADM Date: 03/22/25 Loc: HO.XRAY Attending Dr: Salvador Elliott MD Ordering Physician: Salvador Elliott MD Date of Service: 03/22/25 Procedure(s): XR pelvis 1-2V Accession Number(s): [id number] cc: Salvador Elliott MD; Amy Pickett MD [...] 03/22/25 1343 DD/ 1332 TD/TT: 03/22/25 1335 Power House Engineer: [facility] External Provider IMG XR PROCEDURES Edited Result - Final * Drug Monitoring, Cocaine Metabolite, Quantitative, Urine (03/01/2025 9:32 AM EDT) Only the most recent of2 resultswithin the time period is included. Benzoylecgonine [address] [facility] Comment:CUTOFF 100NG/MLPERFO RMING SITE:[employer] [facility], [address] [place], [place] [id number] Slaughterer Religious Ritual: MICHELLE GAUTAM MD, CLIA:[id number] Cocaine Comments SEE NOTE [facility] Comment:This drug testing is for medical treatment only. Analysiswas performed as non-forensic testing and these resultsshould be used only by healthcare providers torender diagnosis or treatment, or to monitor progress ofmedical conditions.Cocaine Notes:Benzoylecgonine detected is consistent with the use of thedrug Cocaine.LDT Notes:Confirmation tests were developed and their analyticalperformance characteristics have been determined by [employer]. It has not been cleared orapproved by the FDA. This assay has been validated pursuantto the CLIA regulations and is used for clinical purposes.Healthcare Providers needing Interpretation assistance,please contact us at [phone] ( ) M-F,8am to 10pm EST 03/01/2025 9:32 AM EDT 03/01/2025 1:39 PM EDT us Amy Berry MD LAB URINE ORDERAB LES Final Result [facility] [address] [place] [address] [phone] * XR Wrist 3+ Views Right (01/27/2025 11:18 AM EDT) Anatomical Region Laterality Modality Upper Extremities, Wrist Right Radiogr aphic Imaging 01/27/2025 11:1 8 AM EDT Narrative 01/27/2025 12:26 PM EDT [place] [address] XRay Report Signed Patient: Zain Welch MR# : [id number] : 1965 Acct:[id number] Age/Sex: 59 / M ADM Date: 01/27/25 Loc: HO.ED Attending Dr: Ordering Physician: Ailyn Carbone Date of Service: 01/27/25 Procedure(s): XR wrist RT min 3V Accession Number(s): [id number] cc: Ailyn Carbone; Amy Pickett MD EXAMINATION: [...] 01/27/25 1223 DD/ 1118 TD/TT: 01/27/25 1217 Power House Engineer: Procedure Note Donotuseinterpreter, Image - 01/27/2025 [place] [address] XRay Report Signed Patient: Zain Welch LMR# : [id number] : 1965Acct:[id number] Age/Sex: 59 / MADM Date: 01/27/25 Loc: HO.ED Attending Dr: Ordering Physician: Ailyn Carbone Date of Service: 01/27/25 Procedure(s): XR wrist RT min 3V Accession Number(s): [id number] cc: Ailyn Carbone; Amy Pickett MD EXAMINATION: [...] 01/27/25 1223 DD/ 1118 TD/TT: 01/27/25 1217 Power House Engineer: [facility] External Provider IMG XR PROCEDURES Edited Result - Final * XR Elbow 1-2 Views Right (01/27/2025 11:13 AM EDT) Anatomical Region Laterality Modality Upper Extremities, Elbow Right Radiogr aphic Imaging 01/27/2025 11:1 3 AM EDT Narrative 01/27/2025 12:25 PM EDT [place] [address] XRay Report Signed Patient: Zain Welch MR# : [id number] : 1965 Acct:[id number] Age/Sex: 59 / M ADM Date: 01/27/25 Loc: HO.ED Attending Dr: Ordering Physician: Ailyn Carbone Date of Service: 01/27/25 Procedure(s): XR elbow RT 2V Accession Number(s): [id number] cc: Ailyn Carbone; Amy Pickett MD EXAMINATION: [...] 01/27/25 1223 DD/ 1113 TD/TT: 01/27/25 1217 Power House Engineer: Procedure Note Donotuseinterpreter, Image - 01/27/[address] [address] XRay Report Signed Patient: Zain Welch LMR# : [id number] : 1965Acct:[id number] Age/Sex: 59 / MADM Date: 01/27/25 Loc: HO.ED Attending Dr: Ordering Physician: Ailyn Carbone Date of Service: 01/27/25 Procedure(s): XR elbow RT 2V Accession Number(s): [id number] cc: Ailyn Carbone; Amy Pickett MD EXAMINATION: [...] 01/27/25 1223 DD/ 1113 TD/TT: 01/27/25 1217 Power House Engineer: us [facility] External Provider IMG XR PROCEDURES Edited Result - Final * XR Shoulder 2+ Views Right (01/27/2025 11:06 AM EDT) Anatomical Region Laterality Modality Upper Extremities, Shoulder Right Radi ographic Imaging 01/27/2025 11:0 6 AM EDT Narrative 01/27/2025 12:25 PM EDT [address] [address] XRay Report Signed Patient: Zain Welch MR# : [id number] : 1965 Acct:[id number] Age/Sex: 59 / M ADM Date: 01/27/25 Loc: HO.ED Attending Dr: Ordering Physician: Ailyn Carbone Date of Service: 01/27/25 Procedure(s): XR shoulder RT min 2V Accession Number(s): [id number] cc: Ailyn Carbone; Amy Pickett MD EXAMINATION: [...] cervical spine no fully included in the cufsr-fv-xkqw. Calcified plaque in the thoracic aortic arch. XR/XR shoulder RT min 2V IMPRESSION: Mild degenerative changes without acute fracture or dislocation. Electronically signed by: Tyler Cortez MD 01/27/2025 12:22 PM EDT RP Dictated By: Tyler Serrato MD Signed By: <Electronically signed by Tyler Reid MD in [place]> 01/27/25 1222 DD/ 1106 TD/TT: 01/27/25 1217 Power House Engineer: Procedure Note Donotuseinterpreter, Image - 01/27/[address] [address] XRay Report Signed Patient: Zain Welch LMR# : [id number] : 1965Acct:[id number] Age/Sex: 59 / MADM Date: 01/27/25 Loc: HO.ED Attending Dr: Ordering Physician: Ailyn Carbone Date of Service: 01/27/25 Procedure(s): XR shoulder RT min 2V Accession Number(s): [id number] cc: Ailyn Carbone; Amy Pickett MD EXAMINATION: [...] cervical spine no fully included in the clshf-ul-ldjb. Calcified plaque in the thoracic aortic arch. XR/XR shoulder RT min 2V IMPRESSION: Mild degenerative changes without acute fracture or dislocation. Electronically signed by: Tyler Cortez MD 01/27/2025 12:22 PM EDT RP Dictated By: Tyler Serrato MD Signed By: <Electronically signed by Tyler Reid MDin OV> 01/27/25 1222 DD/ 1106 TD/TT: 01/27/25 1217 Power House Engineer: [facility] External Provider IMG XR PROCEDURES Edited Result - Final * (ABNORMAL) Hepatitis C Antibody with Reflex to HCV, RNA, Quantitative, Real- Time PCR (09/29/2024 3:37 PM EDT) Pathologist [facility] Hepatitis C Antibody Reactive( A) Nonreactive [facility] Comment:Presumptive evidence of antibodies to HCV. Blood Venous blood specimen / Unknown 09/29/2024 3:37 PM EDT 09/29/2024 3:38 PM EDT Brent Fischer MD LAB BLOOD ORDERABL ES Final Result [facility] [address] [place] [phone] * HIV-1/2 Antigen and Antibodies, Fourth Generation, with Reflexes (09/29/2024 3:37 PM EDT) HIV AB/AG Nonreactive Nonreactive [facility] Comment:HIV-1 p24 Ag and/or HIV-1/HIV-2 Ab not detected.A test result that is nonreactive does not exclude thepossibility of exposure to or infection with HIV-1 and/orHIV-2. Nonreactive results in this assay for individualswith prior exposure to HIV-1 and/or HIV-2 may be due toantigen and antibody levels that are below the limit ofdetection of this assay.The [employer] HIV Ag/Ab Combo assay result andsupplemental assay results should be interpreted inconjunction with the patient's clinical presentation,history and other laboratory results. If the results areinconsistent with clinical evidence, additional testing issuggested to confirm the result. Blood Venous blood specimen / Unknown 09/29/2024 3:37 PM EDT 09/29/2024 3:38 PM EDT Brent Fischer MD LAB BLOOD ORDERABL ES Final Result [facility] [address] [place] [phone] * (ABNORMAL) Lipid Panel, Standard (09/29/2024 3:37 PM EDT) Triglycerides 155(H) <150 mg/dL [facility] Comment:Desirable Triglyceri de: less than 150 mg/dLBorderline High Triglyceride 150-199 mg/dLHigh Triglyceride: 200-499 mg/dLVery High Triglyceride: greater than or equal to 5OO mg/dL Cholesterol 211(H) <200 mg/dL [facility] Comment:Desirable Cholestero l: less than 200 mg/dLBorderline High Cholesterol: 200-239 mg/dLHigh Cholesterol: greater than 239 mg/dL LDL Cholesterol Calculated 131(H) <100 mg/dL [facility] Comment:Desirable LDL: less than 100 mg/dLNear Optimal/Above Optimal LDL: 110- 129 mg/dLBorderline High LDL: 130-159 mg/dLHigh LDL: 160-189 mg/dLVery High LDL: greater than or equal to 190 mg/dL HDL Cholesterol 49 >40 mg/dL [facility] Comment:Desirable HDL: great er than 40 mg/dL Note: This HDL assay may give artificially low results in patients with liver disease. Blood Venous blood specimen / Unknown 09/29/2024 3:37 PM EDT 09/29/2024 3:38 PM EDT Amy Berry MD LAB BLOOD ORDERAB LES Final Result [facility] [address] [place] [address] [phone] * Hm Colonoscopy (01/06/2018 8:00 AM EDT) us Historical Provider HEALTH MAINTENANCE Final Result from Last 3 Months or Most Recently Relevant to Health Maintenance Insurance [address] [place], [place] [facility] ONE CARE < 65 [place] [id number] [address] [place] [place] [address] [place] Care Teams Gauge And Weigh Machine Adjuster Relationship Specialty Start Date End Date Amy Pickett MD [address] [place] [phone] PCP - General Internal Medicine 04/07/23
--- OUTSIDE RECORDS SUMMARY | 2025-04-19 09:02 | XMS_ITS | Encounter Summary ---
Author Organization [employer] Address [address] [place] [address] [address] [place] [address] Care Team Providers Care Media Assistant Name Role Phone Amy Pickett MD Primary Care Pro vider Reason for Visit * Reason Onset Date Comments Med Refill 08/06/2024 Encounter Details Date Type Department Care Team ([facility] st Contact Info) Description 08/06/2024 Telephone [facility] [address] [place], [place] [phone] Amy Pickett MD [address] [place], [place] [phone] Med Refill Social History Tobacco Use Types [...] 0.083% nebulizer solution To be sent to: [facility]/pharmacy #[id number] - [id number] documented in this encounter Plan of Treatment Upcoming Encounters Date Type Department Care Team (Late st Contact Info) Description 05/03/2025 11:00 AM EDT Office Visit [facility] [address] [place] [phone] 06/10/2025 1:45 PM EST Office Visit [facility] [address] [place] [address] Annmarie Ellington MD [address] [place], [place] [phone] documented as of this encounter Visit Diagnoses Not on filedocumented in this encounter Additional Health Concerns Assessment Noted Time PHQ-9 Depression Total Score: 10 024 9:41 AM EDT documented as of this encounter Care Teams Media Assistant Relationship Specialty Start Date End Date Amy Pickett MD [address] [place] [address] PCP - General Internal Medicine 04/07/23 documented as of this encounter
--- OUTSIDE RECORDS SUMMARY | 2025-04-19 09:02 | XMS_ITS | Encounter Summary ---
Author Organization [employer] Address [address] [facility] 7t [place] [address] Care Team Providers Care Records Management Analyst Name Role Phone Amy Pickett MD Primary Care Pro vider Encounter Details Date Type Department Care Team ([facility] st Contact Info) Description 04/11/2025 Telephone [facility] [address] [place], [place] [phone] Amy Pickett MD [address] [place], [place] [phone] Social History Tobacco Use Types Packs/Day Years [...] encounter Miscellaneous Notes * Telephone Encounter - Rosangela Berry - 04/11/2025 2:06 PM EDT Patient is assigned to Dr. Rincon however he has requested to transfer care. Transfer request approved. [facility] staff fiberglass pipe covering supervisor is aware of scheduled appointment in addition will be reaching out to patient to inform patient of upcoming appointment 06/10/25. documented in this encounter Plan of Treatment Upcoming Encounters Date Type Department Care Team (Late st Contact Info) Description 05/03/2025 11:00 AM EDT Office Visit [facility] [address] [place] [phone] 06/10/2025 1:45 PM EST Office Visit [facility] [address] [place] [phone] Annmarie Ellington MD [address] [place] [phone] documented as of this encounter Visit Diagnoses Not on filedocumented in this encounter Additional Health Concerns Assessment Noted Time PHQ-9 Depression Total Score: 0 05/21/20 25 2:10 PM EDT documented as of this encounter Care Teams Records Management Analyst Relationship Specialty Start Date End Date Amy Pickett MD [address] [place] [phone] PCP - General Internal Medicine 04/07/23 documented as of this encounter
--- OUTSIDE RECORDS SUMMARY | 2025-04-19 09:02 | XMS_ITS | Encounter Summary ---
Author Organization [employer] Address [address] [facility] 7 [place] [address] Care Team Providers Care Driver/Merchandiser Name Role Phone Amy Pickett MD Primary Care Pro vider Reason for Visit * Reason Onset Date Comments Durable Medical Equipment 04/15/2025 Encounter Details Date Type Department Care Team (Late st Contact Info) Description 04/15/2025 Telephone [facility] [address] [place], [place] [phone] Amy Pickett MD [address] [place] [address] Durable Medical Equipment Social History Tobacco Use [...] * Telephone Encounter - Olamide Chavez - 04/18/2025 1:22 PM EDT RX for Wheel chair generated and sent to PCP for signature via [employer]. Once signed, will be faxedto [facility] and sent to scan. If patient calls to check status on above, please advise them to contact [facility] childcare center director . * Telephone Encounter - Olamide Chavez - 04/15/2025 2:45 PM EDT Pt requesting transport wheelchair. Please advise if agree. Thank you * Telephone Encounter - Olamide Chavez - 04/15/2025 2:45 PM EDT ----- Message from Sherice Adams sent at 04/14/2025 3:58 PM EDT ----- Regarding: FW: Member is requesting DMEs Contact: ----- Message ----- From: Sarai Mireles Sent: 04/11/2025 8:44 AM EDT To: Sherice Maldonado; Kim Reid Subject: FW: Member is requesting DMEs Good morning Sherice, I???m following up to request a status update regarding the prescription request submitted for the member (See email below). I noticed the member contacted the clinic the day after the initial request, and the PCP acknowledged and agreed to proceed. However, I haven???t seen a prescription generated yet. Would you be able to look into this and let me know the current status? Thank you for your time and assistance. -Sarai ----- Message ----- From: Sarai Mireles Sent: 04/05/2025 9:16 AM EDT To: Sherice Maldonado Subject: Member is requesting DMEs Greetings, I am Sarai Mireles, Drum Stenciler for [facility] Care Management, requesting the following DME???s on behalf of patient. DME Item: Transport wheelchair Recliner lift chair (Will require a PT evaluation) Supportive DX: Osteoarthritis, Spondylosis of cervical spine, posterior disc protrusion, If you should have any inquiries regarding this request, feel free to contact the Drum Stenciler below. Drum Stenciler: Sarai Mireles E-mail: [email or web address] Wirer: Kim Reid E-mail: [email or web address] documented in this encounter Plan of Treatment Upcoming Encounters Date Type Department Care Team (Late st Contact Info) Description 05/03/2025 11:00 AM EDT Office Visit [facility] [address] [place] [address] [phone] 06/10/2025 1:45 PM EST Office Visit [facility] [address] [place] [phone] Annmarie Ellington MD [address] [place] [address] documented as of this encounter Visit Diagnoses Not on filedocumented in this encounter Additional Health Concerns Assessment Noted Time PHQ-9 Depression Total Score: 0 11/25/19 25 2:10 PM EDT documented as of this encounter Care Teams Driver/Merchandiser Relationship Specialty Start Date End Date Amy Pickett MD [address] [place] [phone] PCP - General Internal Medicine 04/07/23 documented as of this encounter
== END 2025-04-19 09:01 | disposition home or self-care (01) ==
LOC: HO.HPS 08:38
PROVIDERS: PCP Student in an Organized Health Care Education/Training Program; Visit Provider Hospitalist
DX: J44.1 Chronic obstructive pulmonary disease with (acute) exacerbation (principal); G47.33 Obstructive sleep apnea (adult) (pediatric); R07.9 Chest pain, unspecified
CPT/HCPCS: 99214

== ENCOUNTER → 2025-04-19 08:38 | Outpatient (BNVA) | payer OTHER, SELFPAY | PROVIDERS: PCP Student in an Organized Health Care Education/Training Program; Visit Provider Hospitalist | DX: J44.1 Chronic obstructive pulmonary disease with (acute) exacerbation (principal); G47.33 Obstructive sleep apnea (adult) (pediatric); R07.9 Chest pain, unspecified; Z99.89 Dependence on other enabling machines and devices | CPT/HCPCS: 99212 ==

== ENCOUNTER 2025-04-19 15:20 | Emergency (ER) | payer OTHER, SELFPAY ==
[2025-04-19 15:47] VITALS: BP 154/78; PULSE 70; RESP 18; TEMP 36.6; O2SAT 98; BMI 30.9
--- NOTE | 2025-04-19 15:50 | ED.GENADULT ---
HPI - General Adult General Chief complaint: Extremity Injury, Upper Stated complaint: R shoulder pain Related Data Home Medications ?Medication ?Instructions ?Recorded ?Confirmed cholecalciferol (vitamin D3) 50 50 mcg PO DAILY 05/22/20 03/30/25 mcg (2,000 unit) capsule fluticasone propionate 220 1 puff inhalation BID 05/22/20 03/30/25 mcg/actuation HFA aerosol inhaler (Flovent HFA) oxycodone 15 mg tablet 15 mg PO Q6H 05/22/20 03/30/25 albuterol sulfate 2.5 mg/3 mL 1 vial inhalation QID 07/19/20 03/30/25 (0.083 %) solution for nebulization multivitamin (Daily-Petra tablet) 1 tab PO DAILY 07/19/20 03/30/25 divalproex 500 mg tablet,delayed 1,000 mg PO BID 08/29/21 03/30/25 release fluoxetine 20 mg capsule 20 mg PO DAILY 08/29/21 03/30/25 alprazolam 1 mg tablet 1 mg PO BID PRN Anxiety 10/08/21 03/30/25 escitalopram oxalate 20 mg tablet 20 mg PO QAM 06/26/22 03/30/25 magnesium oxide 400 mg (241.3 mg 400 mg PO DAILY 06/26/22 03/30/25 magnesium) tablet lisinopril 5 mg tablet 10 mg PO BID 07/17/22 03/30/25 nebulizers 08/29/22 03/23/25 atorvastatin 40 mg tablet 40 mg PO DAILY 10/15/24 03/30/25 clopidogrel 75 mg tablet 75 mg PO DAILY 10/15/24 03/30/25 cyanocobalamin (vitamin B-12) 1,000 mcg PO DAILY 10/15/24 03/30/25 1,000 mcg tablet hydroxyzine HCl 10 mg tablet 10 mg PO BID 10/15/24 03/30/25 loratadine 10 mg tablet 10 mg PO DAILY 10/15/24 03/30/25 olmesartan 20 mg tablet 20 mg PO DAILY 10/15/24 03/30/25 rimegepant 75 mg disintegrating 75 mg PO DAILY PRN 10/15/24 03/30/25 tablet (Nurtec ODT) Previous Rx's ?Medication ?Instructions ?Recorded tamsulosin 0.4 mg capsule 0.4 mg PO DAILY 30 days #30 caps 06/26/22 fluticasone fur. 200 mcg-umeclid 1 inh inhalation DAILY 30 days #60 04/28/24 62.5 mcg-vilant 25 mcg ea inhalat.powder (Trelegy Ellipta) ipratropium 20 mcg-albuterol 100 1 puff inhalation QID 30 days #4 07/12/24 mcg/actuation mist for inhalation grams (Combivent Respimat) budesonide 0.5 mg/2 mL suspension 0.5 mg (2 mL) inhalation BID 30 10/14/24 for nebulization days #120 mL ipratropium 0.5 mg-albuterol 3 mg 3 ml inhalation BID 30 days #180 mL 10/14/24 (2.5 mg base)/3 mL nebulization soln diclofenac sodium 1 % topical gel 4 g topical QID PRN pain (scale 03/30/25 score 4-6) #100 grams sumatriptan succinate 100 mg tablet See Rx Instructions PO .COMPLEX 04/02/25 #30 tabs dicyclomine 20 mg tablet 20 mg PO QID #360 tabs 04/11/25 azithromycin 500 mg tablet 500 mg PO DAILY 5 days #5 tabs 04/21/25 cyclobenzaprine 5 mg tablet 5 mg PO TID PRN muscle spasm #90 04/21/25 tabs dexlansoprazole 60 mg 60 mg PO DAILY #90 caps 04/21/25 capsule,biphase delayed release famotidine 40 mg tablet 40 mg PO BEDTIME #90 tabs 04/21/25 guaifenesin 1,200 mg tablet, 1,200 mg PO BID 14 days #28 tabs 04/21/25 extended release 12 hr ondansetron HCl 4 mg tablet 4 mg PO BID PRN for 04/21/25 nausea/vomiting #60 tabs prednisone 20 mg tablet 40 mg (2 x 20 mg) PO DAILY 5 days 04/21/25 #10 tabs Allergies Allergy/AdvReac Type Severity Reaction Status Date / Time cat dander (CATS) Allergy Unknown UNKNOWN Verified 04/21/25 17:03 dog dander (DOGS) Allergy Unknown UNKNOWN Verified 04/21/25 17:03 pollen extracts (POLLEN) Allergy Unknown UNKNOWN Verified 04/21/25 17:03 tree and shrub pollen Allergy sneeze Verified 04/21/25 17:03 ibuprofen AdvReac causes Verified 04/21/25 17:03 stomach to bleed PMFSH Past Medical History Medical History Ganglion cyst Chest pain Nicotine dependence, cigarettes, uncomplicated Nausea and vomiting Dyspnea Photophobia Headache Syncope Dysphagia Seizure Lipoma of back STEPHON (obstructive sleep apnea) COPD (chronic obstructive pulmonary disease) Post herpetic neuralgia Multiple lipomas Osteoarthritis Gout History of peptic ulcer disease Hx of irritable bowel syndrome Chronic back pain Hx of insomnia History of panic attacks History of anxiety History of depression Asthma High cholesterol Hypertension Urinary retention Enlarged prostate Arthritis Slow urinary stream Marijuana use Alcohol abuse H/O ulcer disease Left flank pain Trochanteric bursitis, left hip Epidermal cyst Abdominal wall bulge Esophageal dysphagia Esophageal spasm Short frenulum of penis Balanitis Elevated blood pressure reading in office with diagnosis of hypertension Thalamic pain syndrome Abnormal loss of weight Painful orthopaedic hardware Pain in unspecified toe(s) Incisional pain Surgical History S/P placement of nerve stimulator H/O neck surgery Hx of arthroscopy of left knee H/O breast surgery S/P excision of lipoma History of bunionectomy History of cystoscopy History of colonoscopy History of esophagogastroduodenoscopy (EGD) Family History Family History Family/Other Cancer Diabetes AIDS Brother Diabetes Myocardial infarction Father Enlarged prostate Mother Diabetes Asthma Social History Social History Are you a primary acute care nurse to a significant other at home: No Do you presently have visiting nurse or other home services: No Alcohol intake: never Patient Tobacco Use Status: Current everyday Tobacco user Cigarettes Per Day: 4 Years Smoked: (onset 16yo, 1ppd x 42yrs, now 1/2ppd - 40pyh) Substance Use Type: Marijuana Advance Directives: No Advance Directives Information Provided: No service: No Current occupational status: unemployed Physical Exam ED Vital Signs: BMI result Body Mass Index 30.9 Course Course Course Narrative: This is a rapid medical exam performed by Erika Dorado NP: Additional HPI, ROS, PE not included below will be deferred to primary provider. Patient is a 59y/o M with chronic right shoulder pain presenting to the ED for Toradol shot. Has been seen here multiple times for same. Was following with [facility] but they referred him to someone else, who he is seeing on Sat. Discharge Plan Discharge Clinical Impression: Chronic pain in right shoulder Patient Disposition: Left W/O Completing Treatment Prescriptions: No Action dicyclomine 20 mg tablet 20 mg PO QID Qty: 360 2RF multivitamin [Daily-Petra] Tablet 1 tab PO DAILY albuterol sulfate 2.5 mg /3 mL (0.083 %) solution for nebulization 1 vial inhalation QID alprazolam 1 mg tablet 1 mg PO BID PRN (Reason: Anxiety) lisinopril 5 mg tablet 10 mg PO BID sumatriptan succinate 100 mg tablet See Rx Instructions .ROUTE .COMPLEX Qty: 30 0RF Rx Instructions: take 1 tab at onset of headache; if no relief, may repeat 1 tab after at least 2 hrs; max = 2 tabs/24 hrs prednisone 20 mg tablet 40 mg PO DAILY 5 Days Qty: 10 0RF oxycodone 15 mg tablet 15 mg PO Q6H cholecalciferol (vitamin D3) 50 mcg (2,000 unit) capsule 50 mcg PO DAILY Flovent HFA 220 mcg/actuation HFA aerosol inhaler 1 puff inhalation BID fluoxetine 20 mg capsule 20 mg PO DAILY divalproex 500 mg tablet,delayed release (DR/EC) 1,000 mg PO BID magnesium oxide 400 mg (241.3 mg magnesium) tablet 400 mg PO DAILY escitalopram oxalate 20 mg tablet 20 mg PO QAM tamsulosin 0.4 mg capsule 0.4 mg PO DAILY 30 Days Qty: 30 3RF (DME) nebulizers Misc See Rx Instructions .Route Rx Instructions: As directed Trelegy Ellipta 200-62.5-25 mcg blister with device 1 inh inhalation DAILY 30 Days Qty: 60 12RF Combivent Respimat 20-100 mcg/actuation mist 1 puff inhalation QID 30 Days Qty: 4 11RF olmesartan 20 mg tablet 20 mg PO DAILY hydroxyzine HCl 10 mg tablet 10 mg PO BID atorvastatin 40 mg tablet 40 mg PO DAILY cyanocobalamin (vitamin B-12) 1,000 mcg tablet 1,000 mcg PO DAILY Nurtec ODT 75 mg tablet,disintegrating 75 mg PO DAILY PRN clopidogrel 75 mg tablet 75 mg PO DAILY loratadine 10 mg tablet 10 mg PO DAILY diclofenac sodium 1 % gel 4 g topical QID PRN (Reason: pain (scale score 4-6)) Qty: 100 3RF Rx Instructions: apply to right shoulder area as needed for pain dexlansoprazole 60 mg capsule,biphase delayed releas 60 mg PO DAILY Qty: 90 1RF famotidine 40 mg tablet 40 mg PO BEDTIME Qty: 90 2RF ondansetron HCl 4 mg tablet 4 mg PO BID PRN (Reason: for nausea/vomiting) Qty: 60 3RF azithromycin 500 mg tablet 500 mg PO DAILY 5 Days Qty: 5 0RF guaifenesin 1,200 mg tablet extended release 12hr 1,200 mg PO BID 14 Days Qty: 28 0RF cyclobenzaprine 5 mg tablet 5 mg PO TID PRN (Reason: muscle spasm) Qty: 90 1RF ipratropium-albuterol 0.5 mg-3 mg(2.5 mg base)/3 mL solution for nebulization 3 ml inhalation BID 30 Days Qty: 180 11RF budesonide 0.5 mg/2 mL suspension for nebulization 0.5 mg inhalation BID 30 Days Qty: 120 11RF Discharge Date/Time: 04/19/25 20:16
--- OUTSIDE RECORDS SUMMARY | 2025-04-19 20:17 | XMS_ITS | Encounter Summary ---
Author Organization [employer] Address [address] [place] [address] 7 [place] [address] Care Team Providers Care Art Tracer Name Role Phone Amy Pickett MD Primary Care Pro vider Reason for Visit * Reason Onset Date Comments Med Refill 10/27/2024 Encounter Details Date Type Department Care Team ([facility] st Contact Info) Description 10/27/2024 Telephone [facility] [address] [place], [place] [phone] Amy Pickett MD [address] [place], [place] [phone] Med Refill Social History Tobacco Use Types [...] immediate release tablet To be sent to: [facility]/pharmacy #[id number] documented in this encounter Plan of Treatment Upcoming Encounters Date Type Department Care Team (Late st Contact Info) Description 05/03/2025 11:00 AM EDT Office Visit [facility] [address] [place] [phone] 06/10/2025 1:45 PM EST Office Visit [facility] [address] [place] [address] Annmarie Ellington MD [address] [place] [address] documented as of this encounter Visit Diagnoses Not on filedocumented in this encounter Additional Health Concerns Assessment Noted Time PHQ-9 Depression Total Score: 10 024 9:41 AM EDT documented as of this encounter Care Teams Art Tracer Relationship Specialty Start Date End Date Amy Pickett MD [address] [place] [phone] PCP - General Internal Medicine 04/07/23 documented as of this encounter
--- OUTSIDE RECORDS SUMMARY | 2025-04-19 20:17 | XMS_ITS | Encounter Summary ---
Author Organization [employer] Address [address] [place] [address] 7 [place] [address] Care Team Providers Care Cold Mill Operator Name Role Phone Amy Pickett MD Primary Care Pro vider Reason for Visit * Reason Onset Date Comments Med Refill 02/24/2025 Encounter Details Date Type Department Care Team ([facility] st Contact Info) Description 02/24/[address] [facility] [address] [place], [place] [phone] Amy Pickett MD [address] [place], [place] [phone] Med Refill Social History Tobacco Use Types [...] be sent to: [facility]/pharmacy #[id number] documented in this encounter Plan of Treatment Upcoming Encounters Date Type Department Care Team (Late st Contact Info) Description 05/03/2025 11:00 AM EDT Office Visit [facility] [address] [place] [address] [phone] 06/10/2025 1:45 PM EST Office Visit [facility] [address] [place] [phone] Annmarie Ellington MD [address] [place] [address] documented as of this encounter Visit Diagnoses Not on filedocumented in this encounter Additional Health Concerns Assessment Noted Time PHQ-9 Depression Total Score: 0 11/25/19 25 2:10 PM EDT documented as of this encounter Care Teams Cold Mill Operator Relationship Specialty Start Date End Date Amy Pickett MD [address] [place] [address] PCP - General Internal Medicine 04/07/23 documented as of this encounter
--- OUTSIDE RECORDS SUMMARY | 2025-04-19 20:17 | XMS_ITS | Encounter Summary ---
Author Organization [employer] Address [address] [facility] 7 [place] [address] Care Team Providers Care Mate Fourth Name Role Phone Amy Pickett MD Primary Care Pro vider Reason for Visit * Reason Onset Date Comments Results 10/01/2024 Encounter Details Date Type Department Care Team ([facility] st Contact Info) Description 10/01/2024 Telephone [facility] [address] [place], [place] [phone] Amy Pickett MD [address] [place] [address] Results Social History Tobacco Use Types Packs/Day [...] Blood Test Date when done: 09/29/24 Facility: [facility] Contact pt at [phone] documented in this encounter Plan of Treatment Upcoming Encounters Date Type Department Care Team (Late st Contact Info) Description 05/03/2025 11:00 AM EDT Office Visit [facility] [address] [place] [phone] 06/10/2025 1:45 PM EST Office Visit [facility] [address] [place] [phone] Annmarie Ellington MD [address] [place] [address] documented as of this encounter Visit Diagnoses Not on filedocumented in this encounter Additional Health Concerns Assessment Noted Time PHQ-9 Depression Total Score: 10 024 9:41 AM EDT documented as of this encounter Care Teams Mate Fourth Relationship Specialty Start Date End Date Amy Pickett MD [address] [place] [phone] PCP - General Internal Medicine 04/07/23 documented as of this encounter
--- OUTSIDE RECORDS SUMMARY | 2025-04-19 20:17 | XMS_ITS | Encounter Summary ---
Author Organization [email or web address] Address [address] [facility] 7 [place] [address] Care Team Providers Care Precision Millwright Name Role Phone Amy Pickett MD Primary Care Pro vider Reason for Visit * Reason Onset Date Comments Nurse Triage 03/17/2025 Encounter Details Date Type Department Care Team ([facility] st Contact Info) Description 03/17/2025 Telephone [facility] [address] [place], [place] [phone] Amy Pickett MD [address] [place] [address] Nurse Triage Social History Tobacco Use Types [...] to Zain Lazcano to triage below at [phone]. Pt states having a procedure done to [...] currently on the phone with a supervisor vegetable farming [facility]. She states that pt. 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 Pt. Luz Marina states that PCP will not give pt. Additional pain medication because pt. Is alreadyon Oxycodone. I advised that I will write this down as pt. Is currently speaking with a Radar Systems Engineer. * Telephone Encounter - James Diana - 03/17/2025 4:02 PM EDT Symptom: Shoulder Pain - Not From Injury Outcome: Schedule an urgent appointment (within 1 hour) or talk to a nurse or provider soon Reason: Severe pain now The caller accepted this outcome. Contact pt at [phone] Pt was requesting for tramadol for his shoulder pain. Pt was already advised that he cannot take tramadol and Oxycodone at the same time. documented in this encounter Plan of Treatment Upcoming Encounters Date Type Department Care Team (Late st Contact Info) Description 05/03/2025 11:00 AM EDT Office Visit [facility] [address] [place] [phone] 06/10/2025 1:45 PM EST Office Visit [facility] [address] [place] [phone] Annmarie Ellington MD [address] [place] [address] documented as of this encounter Visit Diagnoses Not on filedocumented in this encounter Additional Health Concerns Assessment Noted Time PHQ-9 Depression Total Score: 0 11/25/19 25 2:10 PM EDT documented as of this encounter Care Teams Precision Millwright Relationship Specialty Start Date End Date Amy Pickett MD [address] [place] [phone] PCP - General Internal Medicine 04/07/23 documented as of this encounter
--- OUTSIDE RECORDS SUMMARY | 2025-04-19 20:17 | XMS_ITS | Encounter Summary ---
Author Organization [employer] Address [address] [facility] 7 [place] [address] Care Team Providers Care Production Pattern Maker Name Role Phone Amy Pickett MD Primary Care Pro vider Reason for Visit * Reason Onset Date Comments Durable Medical Equipment 04/15/2025 Encounter Details Date Type Department Care Team (Late st Contact Info) Description 04/15/2025 Telephone [facility] 230 [place], [place] [phone] Amy Pickett MD [address] [place] [address] Durable Medical Equipment Social History Tobacco Use [...] and sent to PCP for signature via [employer]. Once signed, will be fax[facility]to [facility] and sent to scan. If patient calls to check status on above, please advise them to contact [facility] primary health care nurse . * Telephone Encounter - Olamide Chavez [...] requesting DMEs Greetings, I am Sarai Mireles, Gastroenterology Manager for [facility] Care Management, requesting the following DME???s on behalf of patient. DME Item: Transport wheelchair Recliner lift chair (Will require a PT evaluation) Supportive DX: Osteoarthritis, Spondylosis of cervical spine, posterior disc protrusion, If you should have any inquiries regarding this request, feel free to contact the Gastroenterology Manager below. Gastroenterology Manager: Sarai Mireles E-mail: [email or web address] Wafer Line Worker: Kim Reid E-mail: [email or web address] documented in this encounter Plan of Treatment Upcoming Encounters Date Type Department Care Team (Late st Contact Info) Description 05/03/2025 11:00 AM EDT Office Visit [facility] [address] [place] [address] [phone] 06/10/2025 1:45 PM EST Office Visit [facility] [address] [place] [phone] Annmarie Ellington MD [address] [place] [phone] documented as of this encounter Visit Diagnoses Not on filedocumented in this encounter Additional Health Concerns Assessment Noted Time PHQ-9 Depression Total Score: 0 11/25/19 25 2:10 PM EDT documented as of this encounter Care Teams Production Pattern Maker Relationship Specialty Start Date End Date Amy Pickett MD [address] [place] [phone] PCP - General Internal Medicine 04/07/23 documented as of this encounter
--- OUTSIDE RECORDS SUMMARY | 2025-04-19 20:17 | XMS_ITS | Encounter Summary ---
Author Organization [employer] Address 75 [facility] 7t [place] [address] Care Team Providers Care Help Desk Administrator Name Role Phone Elise Glover GRIEF COUNSELOR Primary Care Provider Amy Ware MD Primary Care Pro vider Reason for Visit * Reason Comments Med Change Request Encounter Details Date Type Department Care Team (Late st Contact Info) Description 03/03/2023 Refill [facility] [address] [place] [phone] Elise Glover FNP Essential hypertension Social History [...] Description 05/03/2025 11:00 AM EDT Office Visit [facility] [address] [place] [address] 06/10/2025 1:45 PM EST Office Visit [facility] [address] [place], [place] [phone] Annmarie Ellington MD [address] [place] [address] documented as of this encounter Visit Diagnoses Diagnosis Essential hypertension Unspecified essential hypertension documented in this encounter Additional Health Concerns Assessment Noted Time PHQ-9 Depression Total Score: 24 023 10:05 AM EDT documented as of this encounter Care Teams Help Desk Administrator Relationship Specialty Start Date End Date Elise Glover FNP PCP - General Family Medicine 07/09/22 04/06/23 Amy Pickett MD 230 [place] [address] PCP - General Internal Medicine 04/07/23 documented as of this encounter
--- OUTSIDE RECORDS SUMMARY | 2025-04-19 20:17 | XMS_ITS | Encounter Summary ---
Author Organization [employer] Address [address] [place] [address] 7t [place] [address] Care Team Providers Care Furniture Decals Inspector Name Role Phone Elise Glover REGULATOR ASSEMBLER Primary Care Provider Amy Ware MD Primary Care Pro vider Reason for Visit * Reason Onset Date Comments Durable Medical Equipment 10/07/2022 Encounter Details Date Type Department Care Team (Late st Contact Info) Description 10/07/2022 Telephone [facility] 230 [place] [address] Elise Glover, REGULATOR ASSEMBLER Durable Medical Equipment Social History Tobacco Use [...] If any questions please contact Anabelle at [phone] documented in this encounter Plan of Treatment Upcoming Encounters Date Type Department Care Team (Late st Contact Info) Description 05/03/2025 11:00 AM EDT Office Visit [address] [address] 06/10/2025 1:45 PM EST Office Visit [address] [address] Annmarie Ellington MD [address] [place] [address] documented as of this encounter Visit Diagnoses Not on filedocumented in this encounter Additional Health Concerns Assessment Noted Time PHQ-9 Depression Total Score: 24 023 10:05 AM EDT documented as of this encounter Care Teams Furniture Decals Inspector Relationship Specialty Start Date End Date Elise Glover FNP PCP - General Family Medicine 07/09/22 04/06/23 Amy Pickett MD [address] [place] [address] PCP - General Internal Medicine 04/07/23 documented as of this encounter
--- OUTSIDE RECORDS SUMMARY | 2025-04-19 20:17 | XMS_ITS | Clinical Summary ---
Author Organization [facility] Address [address] [place] [address] Care Team Providers Care Tent Assembler Name Role Phone Ba Maria MD Primary Care Provider Surgical History Surgery Date Site/Laterality Comments FOOT SURGERY PROCEDURE: [place] UNLISTED PROCEDURE FOOT/TOES; COMMENT: left foot bunion removal LIPOMA RESECTION PROCEDURE: SKIN TISSUE EXCISION(LIPOMA) OTHER SURGICAL HISTORY PROCEDURE: ---- OTHER ----; COMMENT: urethral surgeries done? three times in [facility] for difficulty urinating Medical History Medical History Date Comments Chronic back pain DX:Chronic alonso k pain Asthma DX:Asthma Anxiety DX:Anxiety; COMM ENT: follows at [facility] Family History Medical History Relation [...] age to complete this topic Care Teams Tent Assembler Relationship Specialty Start Date End Date Ba Maria MD PCP - General Internal Medicine 10/26/12
--- OUTSIDE RECORDS SUMMARY | 2025-04-19 20:17 | XMS_ITS | Encounter Summary ---
Author Organization [employer] Address 75 [facility] 7t [place] [address] Care Team Providers Care Manager Travel Name Role Phone Amy Pickett MD Primary Care Pro vider Encounter Details Date Type Department Care Team ([facility] st Contact Info) Description 09/01/2024 Telephone [facility] 230 [place], [place] [phone] Amy Pickett MD 230 [place], [place] [phone] Social History Tobacco Use Types Packs/Day Years [...] EDT Office Visit [facility] [address] [place] [address] 06/10/2025 1:45 PM EST Office Visit [address] [address] Annmarie Ellington MD [address] [place] [address] documented as of this encounter Visit Diagnoses Not on filedocumented in this encounter Additional Health Concerns Assessment Noted Time PHQ-9 Depression Total Score: 10 024 9:41 AM EDT documented as of this encounter Care Teams Manager Travel Relationship Specialty Start Date End Date Amy Pickett MD [address] [place] [address] PCP - General Internal Medicine 04/07/23 documented as of this encounter
--- OUTSIDE RECORDS SUMMARY | 2025-04-19 20:17 | XMS_ITS | Encounter Summary ---
Author Organization [employer] Address 75 [facility] 7 [place] [address] Care Team Providers Care Kettle Fry Cook Operator Name Role Phone Amy Pickett MD Primary Care Pro vider Reason for Visit * Reason Comments Med Refill Encounter Details Date Type Department Care Team ([facility] st Contact Info) Description 06/17/2024 Refill [facility] 230 [place], [place] [phone] Amy Pickett MD 230 [place] [address] Social History Tobacco Use Types Packs/Day Years [...] 05/03/2025 11:00 AM EDT Office Visit [facility] [address] [place] [address] 06/10/2025 1:45 PM EST Office Visit [address] [address] Annmarie Ellington MD [address] [place] [address] documented as of this encounter Visit Diagnoses Not on filedocumented in this encounter Additional Health Concerns Assessment Noted Time PHQ-9 Depression Total Score: 10 024 9:41 AM EDT documented as of this encounter Care Teams Kettle Fry Cook Operator Relationship Specialty Start Date End Date Amy Pickett MD [address] [place] [address] PCP - General Internal Medicine 04/07/23 documented as of this encounter
--- OUTSIDE RECORDS SUMMARY | 2025-04-19 20:17 | XMS_ITS | Encounter Summary ---
Author Organization [employer] Address [address] [place] [address] 7 [place] [address] Care Team Providers Care Writer Producer Name Role Phone Amy Pickett MD Primary Care Pro vider Reason for Visit * Reason Onset Date Comments Appointment Request 10/05/2024 Encounter Details Date Type Department Care Team ([facility] st Contact Info) Description 10/05/2024 Telephone [facility] 230 [place], [place] [phone] Amy Pickett MD 230 [place] [address] Appointment Request Social History Tobacco Use Types [...] able to make it. Contact Isa at [phone] documented in this encounter Plan of Treatment Upcoming Encounters Date Type Department Care Team (Late st Contact Info) Description 05/03/2025 11:00 AM EDT Office Visit [facility] [address] [place] [address] 06/10/2025 1:45 PM EST Office Visit [facility] [address] [place] [address] Annmarie Ellington MD 230 [place] [address] documented as of this encounter Visit Diagnoses Not on filedocumented in this encounter Additional Health Concerns Assessment Noted Time PHQ-9 Depression Total Score: 10 024 9:41 AM EDT documented as of this encounter Care Teams Writer Producer Relationship Specialty Start Date End Date Amy Pickett MD [address] [place] [address] PCP - General Internal Medicine 04/07/23 documented as of this encounter
--- OUTSIDE RECORDS SUMMARY | 2025-04-19 20:17 | XMS_ITS | Encounter Summary ---
Author Organization [employer] Address 75 [facility] 7 [place] [address] Care Team Providers Care Communications Designer Name Role Phone Amy Pickett MD Primary Care Pro vider Reason for Visit * Reason Onset Date Comments FYI 03/16/2025 Encounter Details Date Type Department Care Team ([facility] st Contact Info) Description 03/16/2025 Telephone [facility]INE 230 [place], [place] [phone] Amy Pickett MD 230 [place] [address] FYI Social History Tobacco Use Types Packs/Day [...] who reports pt currently having surgery at [facility] through [facility] to get SNS device removed so that he can have MRI done as he couldn't have MRI with the implant and he has excruciating 10/10 shoulder pain and can't lift his arm. Advised to call [facility] centralized scheduling to r/s MRI now that implant is being removed. Texted her their phone number via [employer] text at her request. She reports that [...] group appt be changed to a normal HEEL COVER SPLITTER appt. Seeing as though he is having [...] anything out of it. Would rather do HEEL COVER SPLITTER visits. Informed I would send message regarding this. * Telephone Encounter - Jesusita Castellanos - 03/16/2025 3:01 PM EDT Tc from [facility] stating specialist pritesh to give him an emergency surgery to get the implant out. So now pt is able to do MRI. documented in this encounter Plan of Treatment Upcoming Encounters Date Type Department Care Team (Late st Contact Info) Description 05/03/2025 11:00 AM EDT Office Visit [address] [address] 06/10/2025 1:45 PM EST Office Visit [address] [address] Annmarie Ellington MD 230 [place] [address] documented as of this encounter Visit Diagnoses Not on filedocumented in this encounter Additional Health Concerns Assessment Noted Time PHQ-9 Depression Total Score: 0 11/25/19 2:10 PM EDT documented as of this encounter Care Teams Communications Designer Relationship Specialty Start Date End Date Amy Pickett MD [address] [place] [address] PCP - General Internal Medicine 04/07/23 documented as of this encounter
--- OUTSIDE RECORDS SUMMARY | 2025-04-19 20:17 | XMS_ITS | Encounter Summary ---
Author Organization [employer] Address 75 [facility] 7t [place] [address] Care Team Providers Care Physician Liaison Name Role Phone Amy Pickett MD Primary Care Pro vider Encounter Details Date Type Department Care Team ([facility] st Contact Info) Description 04/11/2025 Telephone [facility]INE 230 [place], [place] [phone] Amy Pickett MD 230 [place], [place] [phone] Social History Tobacco Use Types Packs/Day Years [...] requested to transfer care. Transfer request approved. [facility] staff pleating supervisor is aware of scheduled appointment in addition will be reaching out to patient to inform patient of upcoming appointment 06/10/25. documented in this encounter Plan of Treatment Upcoming Encounters Date Type Department Care Team (Late st Contact Info) Description 05/03/2025 11:00 AM EDT Office Visit [facility] [address] [place] [address] 06/10/2025 1:45 PM EST Office Visit [facility] [address] [place] [address] Annmarie Ellington MD [address] [place] [address] documented as of this encounter Visit Diagnoses Not on filedocumented in this encounter Additional Health Concerns Assessment Noted Time PHQ-9 Depression Total Score: 0 05/21/20 25 2:10 PM EDT documented as of this encounter Care Teams Physician Liaison Relationship Specialty Start Date End Date Amy Pickett MD [address] [place] [address] PCP - General Internal Medicine 04/07/23 documented as of this encounter
--- OUTSIDE RECORDS SUMMARY | 2025-04-19 20:17 | XMS_ITS | Encounter Summary ---
Author Organization [employer] Address [address] [place] [address] 7t [place] [address] Care Team Providers Care Rotary Cutter Feeder Name Role Phone Elise Glover CHIEF CLOTH FINISHING RANGE OPERATOR Primary Care Provider Amy Ware MD Primary Care Pro vider Encounter Details Date Type Department Care Team (Late st Contact Info) Description 01/14/2023 Orders Only [facility] MEDICINE [address] [place] [address] Elise Glover FNP Social History Tobacco Use [...] 05/03/2025 11:00 AM EDT Office Visit [facility] [address] [place] [address] [phone] 06/10/2025 1:45 PM EST Office Visit [address] [phone] Annmarie Ellington MD [address] [place] [address] documented as of this encounter Visit Diagnoses Not on filedocumented in this encounter Additional Health Concerns Assessment Noted Time PHQ-9 Depression Total Score: 24 023 10:05 AM EDT documented as of this encounter Care Teams Rotary Cutter Feeder Relationship Specialty Start Date End Date Elise Glover FNP PCP - General Family Medicine 07/09/22 04/06/23 Amy Pickett MD 230 [place] [address] PCP - General Internal Medicine 04/07/23 documented as of this encounter
--- OUTSIDE RECORDS SUMMARY | 2025-04-19 20:17 | XMS_ITS | Encounter Summary ---
Author Organization [employer] Address [address] [place] [address] 7 [place] [address] Care Team Providers Care Automatic Profile Sander Operator Name Role Phone Amy Pickett MD Primary Care Pro vider Reason for Visit * Reason Onset Date Comments Med Refill 05/13/2024 Encounter Details Date Type Department Care Team ([facility] st Contact Info) Description 05/13/2024 Telephone [facility] MEDICINE 230 [place], [place] [phone] Amy Pickett MD 230 [place], [place] [phone] Med Refill Social History Tobacco Use Types [...] sent to: [facility]/pharmacy #[id number] documented in this encounter Plan of Treatment Upcoming Encounters Date Type Department Care Team (Late st Contact Info) Description 05/03/2025 11:00 AM EDT Office Visit [facility]INE [address] [place] [address] 06/10/2025 1:45 PM EST Office Visit [facility]INE [address] [place] [address] Annmarie Ellington MD 230 [place] [address] documented as of this encounter Visit Diagnoses Not on filedocumented in this encounter Additional Health Concerns Assessment Noted Time PHQ-9 Depression Total Score: 10 024 9:41 AM EDT documented as of this encounter Care Teams Automatic Profile Sander Operator Relationship Specialty Start Date End Date Amy Pickett MD [address] [place] [address] PCP - General Internal Medicine 04/07/23 documented as of this encounter
--- OUTSIDE RECORDS SUMMARY | 2025-04-19 20:17 | XMS_ITS | Encounter Summary ---
Author Organization [employer] Address 75 [facility] 7 [place] [address] Care Team Providers Care Email Engineer Name Role Phone Amy Pickett MD Primary Care Pro vider Reason for Visit * Reason Onset Date Comments Appointment Request 09/02/2023 Encounter Details Date Type Department Care Team ([facility] st Contact Info) Description 09/02/2023 Telephone [facility] MED[facility]INE 230 [place], [place] [phone] Amy Pickett MD 230 [place] [address] Appointment Request Social History Tobacco Use Types [...] t he electric, gas, oil or water [employer] threatened to shut off services in your [...] from pt requesting a transfer patient appointment. Aircraft Engine Assembler does not see any availability. Pt states he needs appointment as soon as possible due to controlled medication. States needs to be seen bya new provider to continue medication. Please contact pt at [phone] documented in this encounter Plan of Treatment Upcoming Encounters Date Type Department Care Team (Late st Contact Info) Description 05/03/2025 11:00 AM EDT Office Visit [facility] MEDICINE [address] [place] [address] 06/10/2025 1:45 PM EST Office Visit [address] [address] Annmarie Ellington MD [address] [place] [address] documented as of this encounter Visit Diagnoses Not on filedocumented in this encounter Additional Health Concerns Assessment Noted Time PHQ-9 Depression Total Score: 24 023 10:05 AM EDT documented as of this encounter Care Teams Email Engineer Relationship Specialty Start Date End Date Amy Pickett MD [address] [place] [address] PCP - General Internal Medicine 04/07/23 documented as of this encounter
--- OUTSIDE RECORDS SUMMARY | 2025-04-19 20:17 | XMS_ITS | Encounter Summary ---
Author Organization [employer] Address [address] [place] [address] 7 [place] [address] Care Team Providers Care Chief Controller Station Name Role Phone Amy Pickett MD Primary Care Pro vider Reason for Visit * Reason Onset Date Comments Med Refill 03/24/2025 Encounter Details Date Type Department Care Team (Late st Contact Info) Description 03/24/2025 Telephone [facility] MEDICINE 230 [place], [place] [phone] Aym Pickett MD 230 [place], [place] [phone] Med Refill Social History Tobacco Use Types [...] immediate release tablet To be sent to: [facility]/pharmacy #[id number] documented in this encounter Plan of Treatment Upcoming Encounters Date Type Department Care Team (Late st Contact Info) Description 05/03/2025 11:00 AM EDT Office Visit [facility] MED[facility]INE [address] [place] [address] [phone] 06/10/2025 1:45 PM EST Office Visit [facility] [address] [place] [address] Annmarie Ellington MD [address] [place] [address] documented as of this encounter Visit Diagnoses Not on filedocumented in this encounter Additional Health Concerns Assessment Noted Time PHQ-9 Depression Total Score: 0 11/25/19 25 2:10 PM EDT documented as of this encounter Care Teams Chief Controller Station Relationship Specialty Start Date End Date Amy Pickett MD [address] [place] [address] PCP - General Internal Medicine 04/07/23 documented as of this encounter
--- OUTSIDE RECORDS SUMMARY | 2025-04-19 20:17 | XMS_ITS | Encounter Summary ---
Author Organization [employer] Address [address] [place] [address] 7 [place] [address] Care Team Providers Care Target Worker Name Role Phone Elise Glover NURSE ANESTHESIA PROGRAM DIRECTOR Primary Care Provider Amy Ware MD Primary Care Pro vider Reason for Visit * Reason Onset Date Comments triage 08/22/2022 Encounter Details Date Type Department Care Team (Late st Contact Info) Description 08/22/2022 Telephone [facility] MEDICINE [address] [place] [address] Elise Glover NURSE ANESTHESIA PROGRAM DIRECTOR triage Social History Tobacco Use Types Packs/Day [...] 05/03/2025 11:00 AM EDT Office Visit [address] [phone] 06/10/2025 1:45 PM EST Office Visit [facility] 230 [place] [address] Annmarie Ellington MD 230 [place], [place] [phone] documented as of this encounter Visit Diagnoses Not on filedocumented in this encounter Care Teams Target Worker Relationship Specialty Start Date End Date Elise Glover FNP PCP - General Family Medicine 07/09/22 04/06/23 Amy Pickett MD 230 [place], [place] [phone] PCP - General Internal Medicine 04/07/23 documented as of this encounter
--- OUTSIDE RECORDS SUMMARY | 2025-04-19 20:17 | XMS_ITS | Encounter Summary ---
Author Organization [employer] Address [address] [place] [address] 7 [place] [address] Care Team Providers Care Customer Quality Specialist Name Role Phone Amy Pickett MD Primary Care Pro vider Reason for Visit * Reason Onset Date Comments Med Refill 08/06/2024 Encounter Details Date Type Department Care Team ([facility] st Contact Info) Description 08/06/[address] [facility] MEDICINE 230 [place], [place] [phone] Amy Pickett MD 230 [place], [place] [phone] Med Refill Social History Tobacco Use Types [...] 0.083% nebulizer solution To be sent to: [facility]/pharmacy #[id number] - [address] documented in this encounter Plan of Treatment Upcoming Encounters Date Type Department Care Team (Late st Contact Info) Description 05/03/2025 11:00 AM EDT Office Visit [facility] MEDICINE [address] [place] [address] 06/10/2025 1:45 PM EST Office Visit [facility] MEDICINE [address] [place] [address] Annmarie Ellington MD 230 [place], [place] [phone] documented as of this encounter Visit Diagnoses Not on filedocumented in this encounter Additional Health Concerns Assessment Noted Time PHQ-9 Depression Total Score: 10 024 9:41 AM EDT documented as of this encounter Care Teams Customer Quality Specialist Relationship Specialty Start Date End Date Amy Pickett MD 230 [place] [address] PCP - General Internal Medicine 04/07/23 documented as of this encounter
--- OUTSIDE RECORDS SUMMARY | 2025-04-19 20:17 | XMS_ITS | Encounter Summary ---
Author Organization [employer] Address 75 [facility] 7t [place] [address] Care Team Providers Care Project Construction Manager Name Role Phone Amy Pickett MD Primary Care Pro vider Encounter Details Date Type Department Care Team ([facility] st Contact Info) Description 09/01/2024 Telephone [facility] MEDICINE 230 [place], [place] [phone] Amy Pickett MD 230 [place], [place] [phone] Social History Tobacco Use Types Packs/Day Years [...] EDT Office Visit [facility]INE [address] [place] [address] 06/10/2025 1:45 PM EST Office Visit [address] [address] Annmarie Ellington MD [address] [place] [address] documented as of this encounter Visit Diagnoses Not on filedocumented in this encounter Additional Health Concerns Assessment Noted Time PHQ-9 Depression Total Score: 10 024 9:41 AM EDT documented as of this encounter Care Teams Project Construction Manager Relationship Specialty Start Date End Date Amy Pickett MD [address] [place] [address] PCP - General Internal Medicine 04/07/23 documented as of this encounter
--- OUTSIDE RECORDS SUMMARY | 2025-04-19 20:17 | XMS_ITS | Encounter Summary ---
Author Organization [employer] Address [address] [facility] [address] 7t [place] [address] Care Team Providers Care Inpatient Nursing Aide Name Role Phone Amy Pickett MD Primary Care Pro vider Encounter Details Date Type Department Care Team (Late st Contact Info) Description 06/24/2024 Orders Only [facility] MEDICINE 230 [place] [address] Provider, MD Bryan Social History Tobacco Use [...] Office Visit [facility] MEDICINE [address] [place] [address] 06/10/2025 1:45 PM EST Office Visit [address] [address] Annmarie Ellington MD [address] [place] [address] documented as of this encounter Procedures Procedure [...] documented as of this encounter Care Teams Inpatient Nursing Aide Relationship Specialty Start Date End Date Amy Pickett MD [address] [place] [address] PCP - General Internal Medicine 04/07/23 documented as of this encounter
--- OUTSIDE RECORDS SUMMARY | 2025-04-19 20:17 | XMS_ITS | Encounter Summary ---
Author Organization [employer] Address [address] [place] [address] 7 [place] [address] Care Team Providers Care Electrostatic Powder Coating Technician Name Role Phone Amy Pickett MD Primary Care Pro vider Reason for Visit * Reason Onset Date Comments call back requesting 03/03/2025 Encounter Details Date Type Department Care Team ([facility] st Contact Info) Description 03/03/2025 Telephone [facility] [address] [place], [place] [phone] Amy Pickett MD [address] [place] [phone] call back requesting Social History Tobacco Use [...] the pt and spoke with the pt RN DIABETES Domenica (HIPAA compliant) in regards to the [...] Domenica called the pt urologist at [facility] for guidance as the pt [...] out of he's body. Contact pt at [phone] documented in this encounter Plan of Treatment Upcoming Encounters Date Type Department Care Team (Late st Contact Info) Description 05/03/2025 11:00 AM EDT Office Visit [facility] [address] [place] [address] 06/10/2025 1:45 PM EST Office Visit [address] [address] Annmarie Ellington MD [address] [place] [phone] documented as of this encounter Visit Diagnoses Not on filedocumented in this encounter Additional Health Concerns Assessment Noted Time PHQ-9 Depression Total Score: 0 11/25/19 25 2:10 PM EDT documented as of this encounter Care Teams Electrostatic Powder Coating Technician Relationship Specialty Start Date End Date Amy Pickett MD [address] [place] [phone] PCP - General Internal Medicine 04/07/23 documented as of this encounter
--- OUTSIDE RECORDS SUMMARY | 2025-04-19 20:17 | XMS_ITS | Encounter Summary ---
Author Organization [employer] Address [address] [facility] 7t [place] [address] Care Team Providers Care Tool And Die Supervisor Name Role Phone Amy Pickett MD Primary Care Pro vider Encounter Details Date Type Department Care Team ([facility] st Contact Info) Description 10/01/2024 Orders Only [facility] [address], [place] [phone] Za Preston MD [address] [place] [address] Social History Tobacco Use Types Packs/Day Years [...] Description 05/03/2025 11:00 AM EDT Office Visit [facility] [address] [place] [address] 06/10/2025 1:45 PM EST Office Visit [facility] [address] [place] [address] Annmarie Ellington MD [address] [place] [address] documented as of this encounter Visit Diagnoses Not on filedocumented in this encounter Additional Health Concerns Assessment Noted Time PHQ-9 Depression Total Score: 10 024 9:41 AM EDT documented as of this encounter Care Teams Tool And Die Supervisor Relationship Specialty Start Date End Date Amy Pickett MD [address] [place] [address] PCP - General Internal Medicine 04/07/23 documented as of this encounter
--- OUTSIDE RECORDS SUMMARY | 2025-04-19 20:17 | XMS_ITS | Clinical Summary ---
Author Organization [employer] Address [address] [place] [address] 7t [place] [address] Care Team Providers Care Deal Architect Name Role Phone Amy Pickett MD [...] 022 Active Nebulizers (Comp-Air Elite Compact Neb) [facility] Active Blood Pressure Monitor kit 1 each [...] vomiting. 60 tablet 1 023 Active pancrelipase, Aik-Jupe-Xdrs, (Creon) 0394-4108 units capsule Take 1 capsule by mouth [...] oxyCODONE (Roxicodone) 15 MG immediate release tabletIndicatio ns:DCS ENGINEER checked 06/13/22 Take 1 tablet (15 mg) by mouth every 6 (six) hours for 28 days. 112 tablet 025 2024 Active ipratropium-alb uterol (Combivent Respimat) 20-100 MCG/ACT inhalerIndicati ons:Moderate persistent asthma without complication INHALE 2 PUFFS BY MOUTH EVERY 6 HOURS 4 g 3 025 2024 Discontinued(R eorder (will not trigger notification to Pharmacy)) oxyCODONE (Roxicodone) 15 MG immediate release tabletIndicatio ns:DCS ENGINEER checked 06/13/22 Take 1 tablet (15 [...] recommended. -Supportive care advised. -Isolation recommendations discussed. intermediate 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 2023 Overview (01/25/2025): Dx: chronic neck, low back pain, LE claudication Rx: Oxycodone 15mg IR q 6 hours Last ACADEMIC AFFAIRS MANAGER agreement: 09/28/24 Tier: 1 (monthly ACADEMIC AFFAIRS MANAGER visits) Additional considerations: Alprazolam 1mg for anxiety Assessment & Plan (01/25/2025 1:45 PM EDT): Timeline: -previous positive utox for cocaine 11/2023 -09/28/24: Group - utox/pill count wnl -01/25/25: Group - Pill count as expected, Utox pos cocaine. Confirmatory testing sent. Chronic obstructive pulmonar y disease, unspecified COPD type ([facility]/HCC) 05/16/2024 Overview (09/05/2024): Following with [facility] pulmonology-Dr. Maldonado Continue with Combivent inhaler Claudication [...] Injections 11/2022 Encouraged stretching Will refer to [facility] Continue ACADEMIC AFFAIRS MANAGER at this time. Will perform random [...] root compression . Seen by Neurosurgery at [facility], note pending Referred to Pain Management November 2024 Assessment & Plan (01/25/2025 1:44 PM EDT): -Good engagement and participation with Group Medical Visit model -Encouraged multifactorial approach to pain control including pharm and non- pharm modalities -Pill count as expected, Utox pos cocaine. Confirmatory testing sent. See inventory analyst. Assessment & Plan (09/28/2024 2:02 PM EDT): [...] fracture seen on CT scan at [facility] 10/28/23 He participated fully in group [...] fracture seen on CT scan at [facility] 10/28/23 He participated fully in group [...] Injections 11/2022 Encouraged stretching Will refer to [facility] physical therapy Continue ACADEMIC AFFAIRS MANAGER at this time. Will perform random [...] lumbar pain. Encouraged stretching Will refer to [facility] Continue ACADEMIC AFFAIRS MANAGER at this time. Will perform random [...] Type Department Care Team Description 04/15/2025 Telephone [facility] [address] [place] [address] Amy Pickett MD Durable Medical Equipment 04/12/[address] [address] Amy Pickett MD Transfer PCP request 04/11/[address] [address] Amy Pickett MD 04/06/[address] [address] Amy Pickett MD Durable Medical Equipment 03/31/2025 Orders Only [facility] External Provider, [facility] 03/29/2025 9:45 AM EDT Clinical Support [address] [address] 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 RN Chronic right shoulder pain (Primary Dx) 03/29/2025 Telephone [facility] [address] [place] [address] 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 RN 03/29/2025 Orders Only [address] [address] Amy Pickett MD Chronic right shoulder pain (Primary Dx) 03/29/2025 Telephone [facility] [address] [place] [address] 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 RN 03/29/2025 Travel 03/24/2025 Refill [facility] [address] [place] [address] 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 RN Chronic pain of both knees; Chronic low back pain, unspecified back pain laterality, unspecified whether sciatica present 03/24/2025 Refill [facility] [address] [place] [address] Amy Pickett MD Moderate persistent asthma without complication 03/24/[address] [address] Amy Pickett MD Med Refill 03/22/2025 Orders Only [facility] External Provider, [facility] 03/18/2025 Orders Only [facility] [address] [place] [address] Amy Pickett MD 03/18/2025 Telephone [facility] [address] [place] [address] Amy Pickett MD Change PCP 03/18/2025 Telephone [facility] [address] [place] [address] 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, DARIANA 03/17/2025 Orders Only [facility] [address] [place] [address] Amy Pickett MD 03/17/2025 Telephone [facility] [address] [place] [address] Amy Pickett MD Nurse Triage 03/17/2025 Telephone [facility] [address] [place] [address] Amy Pickett MD Medication Question 03/16/2025 Telephone [facility] [address] [place] [address] 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, DARIANA 03/16/2025 Telephone [facility] [address] [place] [address] Amy Pickett MD FYI 03/08/2025 Orders Only [facility] [address] [place] [address] Amy Pickett MD 03/08/2025 Telephone [facility] [address] [place] [address] 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, RN 03/05/2025 Refill [facility] [address] [place] [address] Amy Pickett MD Chronic low back pain, unspecified back pain laterality, unspecified whether sciatica present 03/03/2025 Telephone [facility] [address] [place] [address] Amy Pickett MD Durable Medical Equipment 03/03/2025 Telephone [facility] [address] [place] [address] Amy Pickett MD call back requesting 03/01/2025 9:10 AM EDT Clinical Support [address] [address] 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, DARIANA 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 03/01/2025 Orders Only [facility] [address] [place] [address], [place] [address] Amy Pickett MD 03/01/2025 Telephone [facility] [address] [place] [address] 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 RN 03/01/2025 Travel 02/24/2025 Refill [facility] [address] [place] [address] 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 RN Chronic pain of both knees; Chronic low back pain, unspecified back pain laterality, unspecified whether sciatica present 02/24/[address] [address] Amy Pickett MD med 02/24/[address] [address] Amy Pickett MD Med Refill 02/19/2025 Refill [facility] [address] [place] [address] Amy Pickett MD 02/10/2025 9:30 AM EDT Office Visit [address] [address] Amy Pickett MD Cervical spondylosis without myelopathy (Primary Dx); Chronic migraine without aura without status migrainosus, not intractable; Essential hypertension; H/O lipoma; Mass of wrist, right; Claudication of left lower extremity (CMS/HCC); Health care maintenance; Lipoma, unspecified site; intermediate 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; Chronic right shoulder pain; Spondylosis of cervical spine; Chronic bilateral low back pain without sciatica 02/10/2025 Telephone [facility] [address] [place] [address] Amy Pickett MD Change PCP; TRANSFER REQUEST 02/10/2025 Travel 02/08/2025 Refill [facility] [address] [place] [address] Amy Pickett MD 02/03/2025 Refill [facility] [address] [place] [address] Bri Noriega MD 02/01/2025 Telephone [facility] [address] [place] [address] Amy Pickett MD Durable Medical Equipment 01/27/2025 Orders Only [facility] External Provider, [facility] 01/25/2025 9:45 AM EDT Office Visit [address] [address] Holly Wills FNP Spondylosis of cervical spine (Primary Dx); 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 01/25/2025 Telephone [facility] [address] [place] [address] 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 RN 01/25/2025 Travel 01/21/2025 Refill [facility] [address] [place] [address] Amy Pickett MD Chronic pain of both [...] Description 05/03/2025 11:00 AM EDT Office Visit [facility] [address] [place] [address] 06/10/2025 1:45 PM EST Office Visit [address] [address] Annmarie Ellington MD [address] [place] [address] Health Maintenance Due Date Last Done Comments [...] DRUG SCREEN Routine 03/01/2025 10:10 AM EDT 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 C5-C6: Small posterior disc protrusion. Mild lvqo-hamdyby-fcqr-right neural foraminal narrowing. No significant central canal stenosis. C6-C7: Ushbp-ai-gthzcojx posterior disc protrusion. Moderate bilateral neural foraminal [...] 04/01/25 1137 DD/ 1136 TD/TT: 04/01/25 1136 Sales Management Intern: Procedure Note Donotuseinterpreter, Image - 04/01/2025 [place] [address] Magnetic Resonance Report Signed Patient: Zain Welch LMR# : [id number] : 1965Acct:[id number] Age/Sex: 59 / MADM Date: 03/31/25 Loc: HO.MRI Attending Dr: Juan David MIRANDA Ordering Physician: Rosangela Cole CNP Date of Service: 03/31/25 Procedure(s): MR cervical spine wo con Accession Number(s): [id number] cc: Rosangela Cole CNP; Amy Pickett MD [...] stenosis. C5-C6: Small posterior disc protrusion. Mild rzrz-eoshfcu-izei-right neural foraminal narrowing. No significant central canal stenosis. C6-C7: Fhyrx-iw-ocdhuxgf posterior disc protrusion. Moderate bilateral neural foraminal [...] 04/01/25 1137 DD/ 1136 TD/TT: 04/01/25 1136 Sales Management Intern: [facility] External Provider IMG MRI PROCEDURES Final [...] - 03/29/2025 10:07 AM EDT .UTOX cup Lot#[id number] Exp. 04/12/26 Internal Pass Control Amy Berry MD POINT OF CARE SOHA T ENTER/EDIT ORDERABLES Final Result * XR Pelvis 1-2 Views (03/22/2025 1:32 PM EDT) Anatomical Region Laterality Modality Body, Pelvis Radiographic Maxine ging 03/22/2025 1:32 PM EDT Narrative 03/22/2025 1:45 PM EDT [address] [address] XRay Report Signed Patient: Zain Welch MR# : [id number] : 1965 Acct:[id number] Age/Sex: 59 / M ADM Date: 03/22/25 Loc: HO.TORIJESSICA Attending Dr: Salvador Elliott MD Ordering Physician: Salvador Elliott MD Date of Service: 03/22/25 Procedure(s): XR pelvis 1-2V Accession Number(s): [id number] cc: Salvador Elliott MD; Amy Pickett MD [...] 03/22/25 1343 DD/ 1332 TD/TT: 03/22/25 1335 Sales Management Intern: Procedure Note Donotuseinterpreter, Image - 03/22/2025 [place] [address] XRay Report Signed Patient: Zain Welch LMR# : [id number] : 1965Acct:[id number] Age/Sex: 59 / MADM Date: 03/22/25 Loc: HO.XRAY Attending Dr: Salvador Elliott MD Ordering Physician: Salvador Elliott MD Date of Service: 03/22/25 Procedure(s): XR pelvis 1-2V Accession Number(s): [id number] cc: Salvador Elliott MD; Amy Pickett MD [...] 03/22/25 1343 DD/ 1332 TD/TT: 03/22/25 1335 Sales Management Intern: [facility] External Provider IMG XR PROCEDURES Edited Result - Final * Drug Monitoring, Cocaine Metabolite, Quantitative, Urine (03/01/2025 9:32 AM EDT) Only the most recent of2 resultswithin the time period is included. Benzoylecgonine 885 [facility] Comment:CUTOFF 100NG/MLPERFO RMING SITE:Mediameeting [facility], [address] [place], [place] [phone] Electrolysis Needle Operator: MICHELLE GAUTAM MD, CLIA:[id number] Cocaine Comments SEE NOTE [facility] Comment:This drug testing is for medical treatment only. Analysiswas performed as non-forensic testing and these resultsshould be used only by healthcare providers torender diagnosis or treatment, or to monitor progress ofmedical conditions.Cocaine Notes:Benzoylecgonine detected is consistent with the use of thedrug Cocaine.LDT Notes:Confirmation tests were developed and their analyticalperformance characteristics have been determined by [employer]. It has not been cleared orapproved by the FDA. This assay has been validated pursuantto the CLIA regulations and is used for clinical purposes.Healthcare Providers needing Interpretation assistance,please contact us at [phone] ( ) M-F,8am to 10pm EST 03/01/2025 9:32 AM EDT 03/01/2025 1:39 PM EDT us Amy Berry MD LAB URINE ORDERAB LES Final Result [facility] [address] [place] [address] [phone] * XR Wrist 3+ Views Right (01/27/2025 11:18 AM EDT) Anatomical Region Laterality Modality Upper Extremities, Wrist Right Radiogr aphic Imaging 01/27/2025 11:1 8 AM EDT Narrative 01/27/2025 12:26 PM EDT [place] [address] XRay Report Signed Patient: Zain Welch MR# : [id number] : 1965 Acct:[id number] Age/Sex: 59 / M ADM Date: 01/27/25 Loc: HO.ED Attending Dr: Ordering Physician: Ailyn Carbone Date of Service: 01/27/25 Procedure(s): XR wrist RT min 3V Accession Number(s): [id number] cc: Ailyn Carbone; Amy Pickett MD EXAMINATION: [...] 01/27/25 1223 DD/ 1118 TD/TT: 01/27/25 1217 Sales Management Intern: Procedure Note Donotuseinterpreter, Image - 01/27/2025 [place] [address] XRay Report Signed Patient: Zain Welch LMR# : [id number] : 1965Acct:[id number] Age/Sex: 59 / MADM Date: 01/27/25 Loc: HO.ED Attending Dr: Ordering Physician: Ailyn Carbone Date of Service: 01/27/25 Procedure(s): XR wrist RT min 3V Accession Number(s): [id number] cc: Ailyn Carbone; Amy Pickett MD EXAMINATION: [...] 01/27/25 1223 DD/ 1118 TD/TT: 01/27/25 1217 Sales Management Intern: [facility] External Provider IMG XR PROCEDURES Edited Result - Final * XR Elbow 1-2 Views Right (01/27/2025 11:13 AM EDT) Anatomical Region Laterality Modality Upper Extremities, Elbow Right Radiogr aphic Imaging 01/27/2025 11:1 3 AM EDT Narrative 01/27/2025 12:25 PM EDT [place] [address] XRay Report Signed Patient: Zain Welch MR# : [id number] : 1965 Acct:[id number] Age/Sex: 59 / M ADM Date: 01/27/25 Loc: HO.ED Attending Dr: Ordering Physician: Ailyn Carbone Date of Service: 01/27/25 Procedure(s): XR elbow RT 2V Accession Number(s): [id number] cc: Ailyn Carbone; Amy Pickett MD EXAMINATION: [...] 01/27/25 1223 DD/ 1113 TD/TT: 01/27/25 1217 Sales Management Intern: Procedure Note Donotuseinterpreter, Image - 01/27/[address] [address] XRay Report Signed Patient: Zain Welch LMR# : [id number] : 1965Acct:[id number] Age/Sex: 59 / MADM Date: 01/27/25 Loc: HO.ED Attending Dr: Ordering Physician: Ailyn Carbone Date of Service: 01/27/25 Procedure(s): XR elbow RT 2V Accession Number(s): [id number] cc: Ailyn Carbone; Amy Pickett MD EXAMINATION: [...] 01/27/25 1223 DD/ 1113 TD/TT: 01/27/25 1217 Sales Management Intern: us [facility] External Provider IMG XR PROCEDURES Edited Result - Final * XR Shoulder 2+ Views Right (01/27/2025 11:06 AM EDT) Anatomical Region Laterality Modality Upper Extremities, Shoulder Right Radi ographic Imaging 01/27/2025 11:0 6 AM EDT Narrative 01/27/2025 12:25 PM EDT [address] [address] XRay Report Signed Patient: Zain Welch MR# : [id number] : 1965 Acct:[id number] Age/Sex: 59 / M ADM Date: 01/27/25 Loc: HO.ED Attending Dr: Ordering Physician: Ailyn Carbone Date of Service: 01/27/25 Procedure(s): XR shoulder RT min 2V Accession Number(s): [id number] cc: Ailyn Carbone; Amy Pickett MD EXAMINATION: [...] cervical spine no fully included in the giybq-cx-ptok. Calcified plaque in the thoracic aortic arch. XR/XR shoulder RT min 2V IMPRESSION: Mild degenerative changes without acute fracture or dislocation. Electronically signed by: Tyler Cortez MD 01/27/2025 12:22 PM EDT RP Dictated By: Tyler Serrato MD Signed By: <Electronically signed by Tyler Reid MD in [place]> 01/27/25 1222 DD/ 1106 TD/TT: 01/27/25 1217 Sales Management Intern: Procedure Note Donotuseinterpreter, Image - 01/27/[address] [address] XRay Report Signed Patient: Zain Welch LMR# : [id number] : 1965Acct:[id number] Age/Sex: 59 / MADM Date: 01/27/25 Loc: HO.ED Attending Dr: Ordering Physician: Ailyn Carbone Date of Service: 01/27/25 Procedure(s): XR shoulder RT min 2V Accession Number(s): [id number] cc: Ailyn Carbone; Amy Pickett MD EXAMINATION: [...] cervical spine no fully included in the qvdqg-cx-vrqt. Calcified plaque in the thoracic aortic arch. XR/XR shoulder RT min 2V IMPRESSION: Mild degenerative changes without acute fracture or dislocation. Electronically signed by: Tyler Cortez MD 01/27/2025 12:22 PM EDT RP Dictated By: Tyler Serrato MD Signed By: <Electronically signed by Tyler Reid MDin OV> 01/27/25 1222 DD/ 1106 TD/TT: 01/27/25 1217 Sales Management Intern: [facility] External Provider IMG XR PROCEDURES Edited Result - Final * (ABNORMAL) Hepatitis C Antibody with Reflex to HCV, RNA, Quantitative, Real- Time PCR (09/29/2024 3:37 PM EDT) Pathologist [facility] Hepatitis C Antibody Reactive( A) Nonreactive [facility] Comment:Presumptive evidence of antibodies to HCV. Blood Venous blood specimen / Unknown 09/29/2024 3:37 PM EDT 09/29/2024 3:38 PM EDT Brent Fischer MD LAB BLOOD ORDERABL ES Final Result [facility] [address] [place] [phone] * HIV-1/2 Antigen and Antibodies, Fourth Generation, with Reflexes (09/29/2024 3:37 PM EDT) HIV AB/AG Nonreactive Nonreactive [facility] Comment:HIV-1 p24 Ag and/or HIV-1/HIV-2 Ab not detected.A test result that is nonreactive does not exclude thepossibility of exposure to or infection with HIV-1 and/orHIV-2. Nonreactive results in this assay for individualswith prior exposure to HIV-1 and/or HIV-2 may be due toantigen and antibody levels that are below the limit ofdetection of this assay.The Nipendo HIV Ag/Ab Combo assay result andsupplemental assay results should be interpreted inconjunction with the patient's clinical presentation,history and other laboratory results. If the results areinconsistent with clinical evidence, additional testing issuggested to confirm the result. Blood Venous blood specimen / Unknown 09/29/2024 3:37 PM EDT 09/29/2024 3:38 PM EDT Brent Fischer MD LAB BLOOD ORDERABL ES Final Result [facility] [address] [place] [phone] * (ABNORMAL) Lipid Panel, Standard (09/29/2024 3:37 PM EDT) Triglycerides 155(H) <150 mg/dL [facility] Comment:Desirable Triglyceri de: less than 150 mg/dLBorderline High Triglyceride 150-199 mg/dLHigh Triglyceride: 200-499 mg/dLVery High Triglyceride: greater than or equal to 5OO mg/dL Cholesterol 211(H) <200 mg/dL [facility] Comment:Desirable Cholestero l: less than 200 mg/dLBorderline High Cholesterol: 200-239 mg/dLHigh Cholesterol: greater than 239 mg/dL LDL Cholesterol Calculated 131(H) <100 mg/dL [facility] Comment:Desirable LDL: less than 100 mg/dLNear Optimal/Above Optimal LDL: 110- 129 mg/dLBorderline High LDL: 130-159 mg/dLHigh LDL: 160-189 mg/dLVery High LDL: greater than or equal to 190 mg/dL HDL Cholesterol 49 >40 mg/dL [facility] Comment:Desirable HDL: great er than 40 mg/dL Note: This HDL assay may give artificially low results in patients with liver disease. Blood Venous blood specimen / Unknown 09/29/2024 3:37 PM EDT 09/29/2024 3:38 PM EDT Amy Berry MD LAB BLOOD ORDERAB LES Final Result [facility] [address] [place] [address] [phone] * Hm Colonoscopy (01/06/2018 8:00 AM EDT) us Historical Provider HEALTH MAINTENANCE Final Result from Last 3 Months or Most Recently Relevant to Health Maintenance Insurance [address] [place], [place] [facility] CARE < 65 [place] [id number] [address] [place] [place] [address] [place], [place] Care Teams Deal Architect Relationship Specialty Start Date End Date Amy Pickett MD [address] [place] [phone] PCP - General Internal Medicine 04/07/23
--- OUTSIDE RECORDS SUMMARY | 2025-04-19 20:17 | XMS_ITS | Encounter Summary ---
Author Organization [employer] Address [address] [place] [address] 7 [place] [address] Care Team Providers Care Preschool Assistant Principal Name Role Phone Amy Pickett MD Primary Care Pro vider Reason for Visit * Reason Onset Date Comments Med Refill 04/09/2024 Encounter Details Date Type Department Care Team (Late st Contact Info) Description 04/09/2024 Telephone [facility] [address] [place], [place] [phone] Amy Pickett MD [address] [place], [place] [phone] Med Refill Social History Tobacco Use Types [...] release tablet To be sent to: [facility]/pharmacy #[id number] documented in this encounter Plan of Treatment Upcoming Encounters Date Type Department Care Team (Late st Contact Info) Description 05/03/2025 11:00 AM EDT Office Visit [facility] [address] [place] [phone] 06/10/2025 1:45 PM EST Office Visit [facility] [address] [place] [phone] Annamrie Ellington MD [address] [place] [phone] documented as of this encounter Visit Diagnoses Not on filedocumented in this encounter Additional Health Concerns Assessment Noted Time PHQ-9 Depression Total Score: 10 024 9:41 AM EDT documented as of this encounter Care Teams Preschool Assistant Principal Relationship Specialty Start Date End Date Amy Pickett MD [address] [place] [phone] PCP - General Internal Medicine 04/07/23 documented as of this encounter
--- OUTSIDE RECORDS SUMMARY | 2025-04-19 20:17 | XMS_ITS | Encounter Summary ---
Author Organization [employer] Address [address] [place] [address] 7 [place] [address] Care Team Providers Care Rental Clerk Tool And Equipment Name Role Phone Amy Pickett MD Primary Care Pro vider Reason for Visit * Reason Onset Date Comments Med Refill 2024 Encounter Details Date Type Department Care Team ([facility] st Contact Info) Description [address] [facility] [address] [place], [place] [phone] Amy Pickett MD [address] [place], [place] [phone] Med Refill Social History Tobacco Use Types [...] tablet To be sent to: [facility]/pharmacy #[id number] documented in this encounter Plan of Treatment Upcoming Encounters Date Type Department Care Team (Late st Contact Info) Description 05/03/2025 11:00 AM EDT Office Visit [facility] [address] [place] [phone] 06/10/2025 1:45 PM EST Office Visit [facility] [address] [place] [phone] Annmarie Ellington MD [address] [place] [address] documented as of this encounter Visit Diagnoses Not on filedocumented in this encounter Additional Health Concerns Assessment Noted Time PHQ-9 Depression Total Score: 0 11/25/19 25 2:10 PM EDT documented as of this encounter Care Teams Rental Clerk Tool And Equipment Relationship Specialty Start Date End Date Amy Pickett MD [address] [place] [phone] PCP - General Internal Medicine 04/07/23 documented as of this encounter
--- OUTSIDE RECORDS SUMMARY | 2025-04-19 20:17 | XMS_ITS | Encounter Summary ---
Author Organization [employer] Address [address] [facility] 7 [place] [address] Care Team Providers Care Fibreglass Gun Hand Name Role Phone Amy Pickett MD Primary Care Pro vider Reason for Visit * Reason Onset Date Comments Med Refill 02/11/2024 Encounter Details Date Type Department Care Team (Late st Contact Info) Description 02/11/2024 Telephone [facility] [address] [place], [place] [phone] Amy Pickett MD [address] [place], [place] [phone] Med Refill Social History Tobacco Use Types [...] To be sent to: [facility]/pharmacy #[id number] - [address] documented in this encounter Plan of Treatment Upcoming Encounters Date Type Department Care Team (Late st Contact Info) Description 05/03/2025 11:00 AM EDT Office Visit [facility] [address] [place] [phone] 06/10/2025 1:45 PM EST Office Visit [facility] [address] [place] [phone] Annmarie Ellington MD [address] [place] [phone] documented as of this encounter Visit Diagnoses Not on filedocumented in this encounter Additional Health Concerns Assessment Noted Time PHQ-9 Depression Total Score: 24 023 10:05 AM EDT documented as of this encounter Care Teams Fibreglass Gun Hand Relationship Specialty Start Date End Date Amy Pickett MD [address] [place] [phone] PCP - General Internal Medicine 04/07/23 documented as of this encounter
--- OUTSIDE RECORDS SUMMARY | 2025-04-19 20:17 | XMS_ITS | Clinical Summary ---
Author Organization [facility] Address [address] [place] [address] Care Team Providers Care Extrusion Die Repair Manager Name Role Phone Donna Harmon MD Primary [...] Sigmoidoscopy 12/23/2016 Influenza Vaccine (#1) 2025 Insurance [facility] [place] [phone] Care Teams Extrusion Die Repair Manager Relationship Specialty Start Date End Date Donna Harmon MD PCP - General 05/11/19
--- OUTSIDE RECORDS SUMMARY | 2025-04-19 20:17 | XMS_ITS | Encounter Summary ---
Author Organization [employer] Address [address] [facility] 7 [place] [address] Care Team Providers Care Sports Activities Foul Judge Name Role Phone Amy Pickett MD Primary Care Pro vider Reason for Visit * Reason Onset Date Comments Medication Question 03/17/2025 Encounter Details Date Type Department Care Team ([facility] st Contact Info) Description 03/17/2025 Telephone [facility] [address] [place], [place] [phone] Amy Pickett MD [address] [place] [address] Medication Question Social History Tobacco Use Types [...] pain killer. Any questions contact pt at [phone] * Telephone Encounter - Andrew Maldonado - 03/17/2025 11:19 AM EDT Tc from [facility], pt's PERINATAL TECH, stating pt had a surgery done but due to pt being prescribed Oxycodone they were unable to prescribe pt any pain medication. [facility] is hoping pt can be prescribed some sort of muscle relaxer or an accomodation to be prescribed medication. If any questions please contact Domenica at [phone]. documented in this encounter Plan of Treatment Upcoming Encounters Date Type Department Care Team ([facility] st Contact Info) Description 05/03/2025 11:00 AM EDT Office Visit [facility] [address] [place] [phone] 06/10/2025 1:45 PM EST Office Visit [facility] [address] [place], [place] [phone] Annmarie Ellington MD [address] [place] [phone] documented as of this encounter Visit Diagnoses Not on filedocumented in this encounter Additional Health Concerns Assessment Noted Time PHQ-9 Depression Total Score: 0 11/25/19 25 2:10 PM EDT documented as of this encounter Care Teams Sports Activities Foul Judge Relationship Specialty Start Date End Date Amy Pickett MD [address] [place], [place] [phone] PCP - General Internal Medicine 04/07/23 documented as of this encounter
== END 2025-04-19 20:16 | disposition left against medical advice (07) ==
LOC: HO.ED 20:12
PROVIDERS: Emergency Provider Emergency Medicine; PCP Student in an Organized Health Care Education/Training Program
DX: M25.511 Pain in right shoulder (principal); G89.29 Other chronic pain; I10 Essential (primary) hypertension; E78.00 Pure hypercholesterolemia, unspecified; Z79.899 Other long term (current) drug therapy
CPT/HCPCS: 99281

== ENCOUNTER 2025-04-21 15:01 | Outpatient (AMB) | payer OTHER, SELFPAY ==
--- NOTE | 2025-04-21 15:14 | A.OFFVIS_ITS ---
Vital Signs 04/21/25 15:27 Height 5 ft 4 in Weight 180 lb BMI 30.9 BP 154/86 H Blood Pressure Location Lt brachial Position Sitting Pulse 90 Pulse Source Pulse Oximeter Pulse Oximetry (%) 96 Oxygen Delivery Method Room Air Intake Visit Reasons: Abd. pain , diarrhea Intake Note: Zain presents to in office follow up of abd pain and diarrhea. CC: Pt states that he has been a lot of trouble sleeping d/t back and shoulder pain and his surgeon r/s his misael to mid May. Patient also c/o chest pains for about a month. He also reports occasional abd pain. Delivery Associate Required: No Accompanied by: Self / Same As Patient Allergies cat dander (CATS) Allergy (Unknown, Verified 05/18/25 07:42) UNKNOWN dog dander (DOGS) Allergy (Unknown, Verified 05/18/25 07:42) UNKNOWN pollen extracts (POLLEN) Allergy (Unknown, Verified 05/18/25 07:42) UNKNOWN tree and shrub pollen Allergy (Verified 05/18/25 07:42) sneeze ibuprofen Adverse Reaction (Verified 05/18/25 07:42) causes stomach to bleed HPI HPI Abd. pain , diarrhea: Details: Assessment & Plan (1) GERD (gastroesophageal reflux disease): Code(s): K21.9 - Gastro-esophageal reflux disease without esophagitis Category: Medical (2) Irritable bowel syndrome with diarrhea: Code(s): K58.0 - Irritable bowel syndrome with diarrhea Category: Medical (3) Esophageal dysmotility: Comment: Barium swallow 03/03/2024= multiple non propulsive tertiary contractions along the entire esophagus Code(s): K22.4 - Dyskinesia of esophagus Category: Medical (4) Acute diarrhea: Code(s): R19.7 - Diarrhea, unspecified Category: Medical Plan He continues on his GI regimen which consists of Dexilant, famotidine, Creon, and p.r.n. Zofran. He is worried about my lungs closing, saying that ollie put him on an abx and prednisone and changed some of his inhalers. 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 He is seeing orthopedics and had aknee injection and they are considering back injections. He is noticing diarrhea with greasy foods. He also has intermittent left mid abd pain. IT is not always there, it comes and goes. When he has it the problems will be all day long. He describes it as a burning/throbbing pain and he will splint the area. This has been for about 2 mos. He is unsure if the diarrhea is worse when he has the pain. I ask if he has been stressed, and he says he has been because he was watching his granddaughter and her mother stresses me out. He says he took the child to protective services because he did not feel he could care for her. In the past he did well on dicyclomine and I think will restart this. ROV next avail Orders: Orders Calprotectin, Fecal Today R19.7 - Diarrhea, unspecified Rast Allergen Today K58.0 - Irritable bowel syndrome with diarrhea C Reactive Protein Today R19.7 - Diarrhea, unspecified Transglutaminase IgA Today K58.0 - Irritable bowel syndrome with diarrhea Transglutaminase Ab IgG Today K58.0 - Irritable bowel syndrome with diarrhea Medications: New dicyclomine 20 mg PO QID 120 tabs 6RF 30 days K58.0 - Irritable bowel syndrome with diarrhea, R19.7 - Diarrhea, unspecified Refilled dexlansoprazole 60 mg PO DAILY 90 caps 1RF famotidine 40 mg PO BEDTIME 90 tabs 2RF K21.9 - Gastro-esophageal reflux disease without esophagitis LABS: Laboratory Tests 09/29/24 15:37 C-Reactive Protein 0.18 Fecal count, RAST, and tissue transglutaminase not obtained TODAY'S VISIT COUNT INCLUDES THE [facility] Medical History Ganglion cyst Chest pain Nicotine dependence, cigarettes, uncomplicated Nausea and vomiting Dyspnea Photophobia Headache Syncope Dysphagia Seizure Lipoma of back STEPHON (obstructive sleep apnea) COPD (chronic obstructive pulmonary disease) Post herpetic neuralgia Multiple lipomas Osteoarthritis Gout History of peptic ulcer disease Hx of irritable bowel syndrome Chronic back pain Hx of insomnia History of panic attacks History of anxiety History of depression Asthma High cholesterol Hypertension Urinary retention Enlarged prostate Arthritis Slow urinary stream Marijuana use Alcohol abuse H/O ulcer disease Left flank pain Trochanteric bursitis, left hip Epidermal cyst Abdominal wall bulge Esophageal dysphagia Esophageal spasm Short frenulum of penis Balanitis Elevated blood pressure reading in office with diagnosis of hypertension Thalamic pain syndrome Abnormal loss of weight Painful orthopaedic hardware Pain in unspecified toe(s) Incisional pain Surgical History S/P placement of nerve stimulator H/O neck surgery Hx of arthroscopy of left knee H/O breast surgery S/P excision of lipoma History of bunionectomy History of cystoscopy History of colonoscopy History of esophagogastroduodenoscopy (EGD) Family History Family/Other Cancer Diabetes AIDS Brother Diabetes Myocardial infarction Father Enlarged prostate Mother Diabetes Asthma Social History Are you a primary point of care specialist to a significant other at home: No Do you presently have visiting nurse or other home services: No Alcohol intake: never Patient Tobacco Use Status: Current everyday Tobacco user Cigarettes Per Day: 4 Years Smoked: (onset 16yo, 1ppd x 42yrs, now 1/2ppd - 40pyh) Substance Use Type: Marijuana service: No Current occupational status: unemployed Review of Systems Const Denies fatigue, Denies fever(s), Denies night sweats, Denies poor appetite and Denies weight loss ENT Reports Normal hearing present, Denies dental pain, Denies dysphagia, Denies hearing loss, Denies mouth pain, Reports neck pain, Denies odynophagia, Denies throat swelling, Denies tongue swelling and Reports other (Dentition adequate) Card Reports no additional complaints Resp Reports no additional complaints GI Details: Denies abdominal pain, Denies melena, Denies bloating, Denies hematochezia, Denies constipation, Reports GI cramping, Denies dysphagia, Denies excessive flatus, Denies early satiety, Reports heartburn, Denies diarrhea, Denies nausea, Denies odynophagia, Denies vomiting and Denies hematemesis Musc Reports back pain, Reports myalgias, Reports arthralgias, Reports limited range of motion, Reports neck pain, Reports radiating pain into limb and Reports stiffness Skin/Breast Denies pruritus, Denies lesions, Denies rash and Denies jaundice Neuro Reports Normal hearing present and Denies Abnormal speech present Endo Denies fatigue Aller/Immun Denies throat swelling and Denies tongue swelling Physical Exam Vital Signs: Last Vital Signs Pulse 90 04/21/25 15:27 BP 154/86 H 04/21/25 15:27 Pulse Ox 96 04/21/25 15:27 Oxygen Delivery Method Room Air 04/21/25 15:27 BMI result Body Mass Index 30.9 Const General: cooperative, no acute distress, well developed and well groomed Nutritional Appearance: well nourished and obese Orientation/consciousness: oriented to person, oriented to place and oriented to time Limitations: No language barrier HEENT Head: Yes normocephalic and Yes atraumatic Eyes General: appearance normal, both eyes and all related structures Pupils: Equal, round and reactive pupils present Neck Neck: Yes normal visual inspection and Yes no lymphadenopathy Thyroid: Thyroid normal Resp Effort & Inspection: normal respiratory effort and able to speak in complete sentences Auscultation: clear to auscultation bilaterally Cardio Rate: regular rate Rhythm: regular rhythm Heart sounds: Normal, physiologic split S2 sound present Peripheral pulses: radial pulses present and posterior tibial pulses present GI Inspection: No distended, No Abdominal panniculus present and Yes obesity Palpation (GI): Soft to palpation, nontender, no guarding, not rigid and No hepatosplenomegaly present Percussion: Yes normal to percussion Auscultation: normal bowel sounds Rectal Exam - Male: Yes deferred Skin General skin exam: no rashes or lesions noted, turgor normal, skin not dry, no jaundice, No spider nevi and no striae Rashes: no rashes Nails: normal Neuro General: oriented to person, oriented to place and oriented to time Cranial nerves: Yes Equal, round and reactive pupils present and Yes Normal hearing present Speech: No Abnormal speech present Extrem General: Yes normal to inspection, No clubbing, No cyanosis and No edema Psych Appearance: grossly normal and well kempt Mental Status: mental status grossly normal Speech and movement: Normal speech and movement present Affect: normal affect Attitude: cooperative Thought process: Circumstantial thought process present and not confabulating Thought content: Normal thought content present Insight: Limited insight present (Psych) Judgement: Limited judgement present (Psych) Assessment & Plan Assessment & Plan (1) GERD (gastroesophageal reflux disease): Code(s): K21.9 - Gastro-esophageal reflux disease without esophagitis Category: Medical (2) Irritable bowel syndrome with diarrhea: Code(s): K58.0 - Irritable bowel syndrome with diarrhea Category: Medical (3) Periumbilical abdominal pain: Code(s): R10.33 - Periumbilical pain Category: Medical (4) Supraspinatus tendon tear: Comment: Full tear with 10mm retraction Code(s): M75.100 - Unspecified rotator cuff tear or rupture of unspecified shoulder, not specified as traumatic Category: Medical (5) Infraspinatus tendon tear: Comment: partial tear Code(s): S46.819A - Strain of other muscles, fascia and tendons at shoulder and upper arm level, unspecified arm, initial encounter Category: Medical (6) Biceps tendonitis: Code(s): M75.20 - Bicipital tendinitis, unspecified shoulder Category: Medical Plan He continues on his GI regimen which consists of Dexilant, famotidine, Creon, and p.r.n. Zofran - Reported past gastrointestinal disturbances, with effective relief via dicyclomine, though currently without prescribed medications for GI issues. Today he is complaining of frustration with his orthopedic/pain management issues. While this is not my specialty to treat I will give him a temporary supply of a muscle relaxer and suggest a referral to pain management. - The patient is a 59-year-old male presenting with chronic pain management issues primarily in the neck and shoulder. - Chronic cervical spine issues involving multiple disc protrusions, contributing to neurogenic symptoms and pain. - Significant impairment due to a full-thickness tear in the right shoulder's supraspinatus and a partial tear in the infraspinatus, causing pain and impact on daily activities. - Previous traumatic injuries to the cervical spine further exacerbate pain and mobility challenges. - Complex medication management involving incomplete efficacy of current pain management with oxycodone and pharmacy-related challenges impacting treatment adherence, especially concerning antibiotics. - Follow up with Dr. Neal for your shoulder evaluation. - Take dicyclomine as prescribed to manage GI symptoms. - Ensure prescriptions from the pharmacy are collected promptly. - Monitor symptoms and return to care if pain worsens or if new symptoms arise. - Contact your pharmacy to resolve any issues with medication access. Return office visit in 4 months Orders: Referrals Orthopedics Referral M75.100 - Unspecified rotator cuff tear or rupture of unspecified shoulder, not specified as traumatic, S46.819A - Strain of other muscles, fascia and tendons at shoulder and upper arm level, unspecified arm, initial encounter, M75.20 - Bicipital tendinitis, unspecified shoulder Medications: Changed From guaifenesin ER 1,200 mg PO BID 14 days 28 tabs 0RF To guaifenesin ER 1,200 mg PO BID 28 tabs 0RF 14 days From cyclobenzaprine 5 mg PO Q8H PRN 20 tabs 0RF muscle spasm S46.819A - Strain of other muscles, fascia and tendons at shoulder and upper arm level, unspecified arm, initial encounter, M75.100 - Unspecified rotator cuff tear or rupture of unspecified shoulder, not specified as traumatic To cyclobenzaprine 5 mg PO TID PRN 90 tabs 1RF muscle spasm S46.819A - Strain of other muscles, fascia and tendons at shoulder and upper arm level, unspecified arm, initial encounter, M75.100 - Unspecified rotator cuff tear or rupture of unspecified shoulder, not specified as traumatic Refilled ondansetron HCl 4 mg PO BID PRN 60 tabs 3RF for nausea/vomiting azithromycin 500 mg PO DAILY 5 tabs 0RF 5 days famotidine 40 mg PO BEDTIME 90 tabs 2RF K21.9 - Gastro-esophageal reflux disease without esophagitis Coding Level of Care Code Est Pt Level 3 (93553) Diagnoses GERD (gastroesophageal reflux disease) K21.9 Irritable bowel syndrome with diarrhea K58.0 Periumbilical abdominal pain R10.33 Supraspinatus tendon tear M75.100 Infraspinatus tendon tear S46.819A Biceps tendonitis M75.20
[2025-04-21 15:27] VITALS: BP 154/86; PULSE 90; O2SAT 96; BMI 30.9
--- OUTSIDE RECORDS SUMMARY | 2025-04-21 18:55 | XMS_ITS | Encounter Summary ---
Author Organization [employer] Address [address] [place] [address] 7 [place] [address] Care Team Providers Care Manager Party Name Role Phone Amy Pickett MD Primary Care Pro vider Reason for Visit * Reason Onset Date Comments Med Refill 05/13/2024 Encounter Details Date Type Department Care Team ([facility] st Contact Info) Description 05/13/2024 Telephone [facility] [address] [place], [place] [phone] Amy Pickett MD [address] [place], [place] [phone] Med Refill Social History Tobacco Use Types [...] release tablet To be sent to: [facility]/pharmacy #[id number] documented in this encounter Plan of Treatment Upcoming Encounters Date Type Department Care Team (Late st Contact Info) Description 05/03/2025 11:00 AM EDT Office Visit [facility] [address] [place] [address] 06/10/2025 1:45 PM EST Office Visit [facility] [address] [place] [phone] Annmarie Ellington MD [address] [place] [address] documented as of this encounter Visit Diagnoses Not on filedocumented in this encounter Additional Health Concerns Assessment Noted Time PHQ-9 Depression Total Score: 10 024 9:41 AM EDT documented as of this encounter Care Teams Manager Party Relationship Specialty Start Date End Date Amy Pickett MD [address] [place] [phone] PCP - General Internal Medicine 04/07/23 documented as of this encounter
--- OUTSIDE RECORDS SUMMARY | 2025-04-21 18:55 | XMS_ITS | Encounter Summary ---
Author Organization [employer] Address [address] [place] [address] 7 [place] [address] Care Team Providers Care Police Chief Deputy Name Role Phone Amy Pickett MD Primary Care Pro vider Reason for Visit * Reason Onset Date Comments Appointment Request 10/05/2024 Encounter Details Date Type Department Care Team ([facility] st Contact Info) Description 10/05/2024 Telephone [facility] [address] [place], [place] [phone] Amy Pickett MD [address] [place] [address] Appointment Request Social History Tobacco Use Types [...] able to make it. Contact Isa at [phone] documented in this encounter Plan of Treatment Upcoming Encounters Date Type Department Care Team (Late st Contact Info) Description 05/03/2025 11:00 AM EDT Office Visit [facility] [address] [place] [address] 06/10/2025 1:45 PM EST Office Visit [facility] [address] [place] [phone] Annmarie Ellington MD [address] [place] [address] documented as of this encounter Visit Diagnoses Not on filedocumented in this encounter Additional Health Concerns Assessment Noted Time PHQ-9 Depression Total Score: 10 024 9:41 AM EDT documented as of this encounter Care Teams Police Chief Deputy Relationship Specialty Start Date End Date Amy Pickett MD [address] [place] [phone] PCP - General Internal Medicine 04/07/23 documented as of this encounter
--- OUTSIDE RECORDS SUMMARY | 2025-04-21 18:55 | XMS_ITS | Encounter Summary ---
Author Organization [employer] Address [address] [facility] 7t [place] [address] Care Team Providers Care Enterer Name Role Phone Amy Pickett MD Primary Care Pro vider Encounter Details Date Type Department Care Team ([facility] st Contact Info) Description 09/01/2024 Telephone [facility] [address] [place], [place] [phone] Amy Pickett MD [address] [place], [place] [phone] Social History Tobacco Use Types Packs/Day Years [...] Office Visit [facility] [address] [place] [phone] 06/10/2025 1:45 PM EST Office Visit [address] [address] Annmarie Ellington MD [address] [place] [address] documented as of this encounter Visit Diagnoses Not on filedocumented in this encounter Additional Health Concerns Assessment Noted Time PHQ-9 Depression Total Score: 10 024 9:41 AM EDT documented as of this encounter Care Teams Enterer Relationship Specialty Start Date End Date Amy Pickett MD [address] [place] [phone] PCP - General Internal Medicine 04/07/23 documented as of this encounter
--- OUTSIDE RECORDS SUMMARY | 2025-04-21 18:55 | XMS_ITS | Encounter Summary ---
Author Organization [employer] Address [address] [facility] 7t [place] [address] Care Team Providers Care Beauty Shop Manager Name Role Phone Amy Pickett MD Primary Care Pro vider Encounter Details Date Type Department Care Team ([facility] st Contact Info) Description 09/01/2024 Telephone [facility] [address] [place], [place] [phone] Amy Pickett MD [address] [place], [place] [phone] Social History Tobacco Use Types Packs/Day Years [...] Office Visit [facility] [address] [place] [address] 06/10/2025 1:45 PM EST Office Visit [address] [phone] Annmarie Ellington MD [address] [place] [address] documented as of this encounter Visit Diagnoses Not on filedocumented in this encounter Additional Health Concerns Assessment Noted Time PHQ-9 Depression Total Score: 10 024 9:41 AM EDT documented as of this encounter Care Teams Beauty Shop Manager Relationship Specialty Start Date End Date Amy Pickett MD [address] [place] [phone] PCP - General Internal Medicine 04/07/23 documented as of this encounter
--- OUTSIDE RECORDS SUMMARY | 2025-04-21 18:55 | XMS_ITS | Clinical Summary ---
Author Organization [facility] [facility] Address [address] [place] [address] Care Team Providers Care Lard Maker Name Role Phone Ba Maria MD Primary Care Provider Surgical History Surgery Date Site/Laterality Comments FOOT SURGERY PROCEDURE: [place] UNLISTED PROCEDURE FOOT/TOES; COMMENT: left foot bunion removal LIPOMA RESECTION PROCEDURE: SKIN TISSUE EXCISION(LIPOMA) OTHER SURGICAL HISTORY PROCEDURE: ---- OTHER ----; COMMENT: urethral [facility] Medical History Medical History Date Comments Chronic back pain DX:Chronic alonso k pain Asthma DX:Asthma Anxiety DX:Anxiety; COMM ENT: follows at [facility] Family History Medical History Relation [...] of 3 - 19+ 3-dose series) 12/23/1986 RSV Immunization Adult Patients (1 - Risk 50-74 years 1-dose series) 12/23/2017 Zoster Vaccines (2 of 2) 07/10/2020 05/15/2020 [...] age to complete this topic Care Teams Lard Maker Relationship Specialty Start Date End Date Ba Maria MD PCP - General Internal Medicine 10/26/12
--- OUTSIDE RECORDS SUMMARY | 2025-04-21 18:55 | XMS_ITS | Encounter Summary ---
Author Organization [employer] Address [address] [facility] 7t [place] [address] Care Team Providers Care Chief Building Inspector Name Role Phone Elise Glover TIMBER SIZER Primary Care Provider Amy Ware MD Primary Care Pro vider Reason for Visit * Reason Comments Med Change Request Encounter Details Date Type Department Care Team (Late st Contact Info) Description 03/03/2023 Refill [facility] [address] [place] [phone] Elise Glover FNP Essential hypertension Social History [...] AM EDT Office Visit [facility] [address] [place] [phone] 06/10/2025 1:45 PM EST Office Visit [facility] [address] [place], [place] [phone] Annmarie Ellington MD [address] [place] [address] documented as of this encounter Visit Diagnoses Diagnosis Essential hypertension Unspecified essential hypertension documented in this encounter Additional Health Concerns Assessment Noted Time PHQ-9 Depression Total Score: 24 023 10:05 AM EDT documented as of this encounter Care Teams Chief Building Inspector Relationship Specialty Start Date End Date Elise Glover FNP PCP - General Family Medicine 07/09/22 04/06/23 Amy Pickett MD [address] [place] [address] PCP - General Internal Medicine 04/07/23 documented as of this encounter
--- OUTSIDE RECORDS SUMMARY | 2025-04-21 18:55 | XMS_ITS | Clinical Summary ---
Author Organization [facility] Address [address] [place] [address] Care Team Providers Care Ophthalmic Surgical Assistant Name Role Phone Donna Harmon MD Primary [...] 12/23/2016 Influenza Vaccine (#1) 2025 Insurance [facility] [place]UB[place]IMES [id number] Care Teams Ophthalmic Surgical Assistant Relationship Specialty Start Date End Date Donna Harmon MD PCP - General 05/11/19
--- OUTSIDE RECORDS SUMMARY | 2025-04-21 18:55 | XMS_ITS | Encounter Summary ---
Author Organization [employer] Address [address] [place] [address] 7 [place] [address] Care Team Providers Care Heating And Ventilating Drafter Name Role Phone Amy Pickett MD Primary Care Pro vider Reason for Visit * Reason Onset Date Comments Results 10/01/2024 Encounter Details Date Type Department Care Team ([facility] st Contact Info) Description 10/01/[address] [facility] [address] [place], [place] [phone] Amy Pickett MD [address] [place] [address] Results Social History Tobacco Use Types Packs/Day [...] Blood Test Date when done: 09/29/24 Facility: [facility] Contact pt at [phone] documented in this encounter Plan of Treatment Upcoming Encounters Date Type Department Care Team (Late st Contact Info) Description 05/03/2025 11:00 AM EDT Office Visit [facility] [address] [place] [address] 06/10/2025 1:45 PM EST Office Visit [facility] [address] [place] [phone] Annmarie Ellington MD [address] [place] [address] documented as of this encounter Visit Diagnoses Not on filedocumented in this encounter Additional Health Concerns Assessment Noted Time PHQ-9 Depression Total Score: 10 024 9:41 AM EDT documented as of this encounter Care Teams Heating And Ventilating Drafter Relationship Specialty Start Date End Date Amy Pickett MD [address] [place] [phone] PCP - General Internal Medicine 04/07/23 documented as of this encounter
--- OUTSIDE RECORDS SUMMARY | 2025-04-21 18:55 | XMS_ITS | Encounter Summary ---
Author Organization [employer] Address [address] [place] [address] 7 [place] [address] Care Team Providers Care Piece Dye Worker Name Role Phone Amy Pickett MD Primary Care Pro vider Reason for Visit * Reason Onset Date Comments Med Refill 04/09/2024 Encounter Details Date Type Department Care Team (Late st Contact Info) Description 04/09/2024 Telephone [facility] [address] [place], [place] [phone] Amy Pickett MD [address] [place], [place] [phone] Med Refill Social History Tobacco Use Types [...] release tablet To be sent to: [facility]/pharmacy #[id number] documented in this encounter Plan of Treatment Upcoming Encounters Date Type Department Care Team (Late st Contact Info) Description 05/03/2025 11:00 AM EDT Office Visit [facility] [address] [place] [address] 06/10/2025 1:45 PM EST Office Visit [facility] [address] [place] [address] Annmarie Ellington MD [address] [place] [address] documented as of this encounter Visit Diagnoses Not on filedocumented in this encounter Additional Health Concerns Assessment Noted Time PHQ-9 Depression Total Score: 10 024 9:41 AM EDT documented as of this encounter Care Teams Piece Dye Worker Relationship Specialty Start Date End Date Amy Pickett MD [address] [place] [address] PCP - General Internal Medicine 04/07/23 documented as of this encounter
--- OUTSIDE RECORDS SUMMARY | 2025-04-21 18:55 | XMS_ITS | Encounter Summary ---
Author Organization [employer] Address [address] [facility] 7t [place] [address] Care Team Providers Care Fertilizer Supervisor Name Role Phone Amy Pickett MD Primary Care Pro vider Encounter Details Date Type Department Care Team ([facility] st Contact Info) Description 10/01/2024 Orders Only [facility] [address] [place], [place] [phone] Za Preston MD [address] [place] [address] Social History Tobacco Use Types Packs/Day Years [...] Description 05/03/2025 11:00 AM EDT Office Visit [facility] [address] [place] [address] 06/10/2025 1:45 PM EST Office Visit [facility] [address] [place] [address] Annmarie Ellington MD [address] [place] [address] documented as of this encounter Visit Diagnoses Not on filedocumented in this encounter Additional Health Concerns Assessment Noted Time PHQ-9 Depression Total Score: 10 024 9:41 AM EDT documented as of this encounter Care Teams Fertilizer Supervisor Relationship Specialty Start Date End Date Amy Pickett MD [address] [place] [address] PCP - General Internal Medicine 04/07/23 documented as of this encounter
--- OUTSIDE RECORDS SUMMARY | 2025-04-21 18:56 | XMS_ITS | Encounter Summary ---
Author Organization [employer] Address [address] [facility] 7 [place] [address] Care Team Providers Care Distilling Department Supervisor Name Role Phone Amy Pickett MD Primary Care Pro vider Reason for Visit * Reason Onset Date Comments Nurse Triage 04/21/2025 Encounter Details Date Type Department Care Team ([facility] st Contact Info) Description 04/21/2025 Telephone [facility] MEDICINE [address] [place], [place] [phone] Amy Pickett MD 230 [place] [address] Nurse Triage Social History Tobacco Use Types [...] Telephone Encounter - Michelle Kapoor RN - 04/21/2025 3:19 PM EDT Call received from patient regarding request for Pain Medication for chronic shoulder pain as [facility] appointment was rescheduled to May 20, 2025. Patient reports he needs to have right shoulder surgery and expresses frustration that he will now have to wait longer and is a great deal of pain. Patient reports he takes Oxycodone and it helps his pain in other areas of his body but does not touchhis shoulder pain. Patient reports he is not taking the Gabapentin prescribed by Dr Rincon due to not liking the way it makes him feel. Patient reports Toradol injection in March lasted for about 2 weeks. Patient states he has gone to [facility] for breakthrough pain relief but is now being redirected back to his PCP to discuss Pain Management. Patient is currently in the process of transferring to Dr Ellington from Dr Rincon and is not willing to see Dr Rincon anymore. Patient understands that Dr Ellington will assume the role of PCP only after his initial visit with her scheduled for 06/10/25. Patient is currently looking for anyone at [facility] to prescribe pain medication that will help his pain until he has surgery. Patient informed no Provider will agree to prescribe medication without evaluation. Patient states coming to the clinic is a waste of time as all his documentation proving the need for surgery is in his chart and supports the need for pain meds. Patient also reports that he was informed at the ED that his doctor can prescribe pain medication. Patient was informed again that prescribing medication will be at the providers discretion but only if he is evaluated. Patient states a visit at [facility] would be useless since [facility] does not have surgeons that would be able to fix the issue. Patient was reminded that a visit at [facility] could help with a Pain Management plan until he is seen by [facility] however, this would still require him being evaluated, reviewed that blindly prescribing medication is not safe. Patient advised to be seen at [facility] during business hours and get on a wait list at [facility] for any last minute openings. [facility] be [facility]. * Telephone Encounter - Milagros Rose RN - 04/21/2025 2:42 PM EDT Incoming call from PLATFORM MATERIAL HANDLING SUPERVISOR ([place]avre) in regards to below message. PLATFORM MATERIAL HANDLING SUPERVISOR states they have been dealing with this pain for >6 months and no one will give the patient pain medication. PLATFORM MATERIAL HANDLING SUPERVISOR reports [facility] willnot prescribe pain medication, [facility] will not prescribe pain medication, and Dr. Rincon will not prescribe pain medication either. PLATFORM MATERIAL HANDLING SUPERVISOR informed of patients tone and actions with RN, RN re-iterated to PLATFORM MATERIAL HANDLING SUPERVISOR that patient needs to be seen in [facility] in order for provider to evaluate if patient should be prescribed pain medication or POC. PLATFORM MATERIAL HANDLING SUPERVISOR informed providers cannot prescribe pain medications without seeing the patients and reviewing the chart and completing an evaluation. PLATFORM MATERIAL HANDLING SUPERVISOR reports he has become difficult to handle d/t the pain his attitude has become challenging. RN advised PLATFORM MATERIAL HANDLING SUPERVISOR it is understandablehowever he cannot speak to staff in the manner that he did. PLATFORM MATERIAL HANDLING SUPERVISOR asking RN to confirm if he comes toW he will be prescribed pain medication. RN advised PLATFORM MATERIAL HANDLING SUPERVISOR, RN cannot guarantee pain medication willbe prescribed as RN cannot guarantee what the provider will decide. PLATFORM MATERIAL HANDLING SUPERVISOR verbalized understanding. * Telephone Encounter - Milagros Rose RN - 04/21/2025 1:36 PM EDT TC placed to patient [phone] in regards to below message. Patient was very upset during phone call. Patient reports he needs to have R shoulder surgery. Patient reports he was being followed at [facility] who referred the patient to [facility] for further evaluation and surgery . Patient reports he had an appt on Friday at [facility] however the provider was busy and couldn't see me . Patient reports he called [facility] to r/s the appt which was r/s to 05/20/25. Patient reports he cannot tolerate the pain and he wants pain medication. Patient reports he has requested morphine from Dr. Rincon however Dr. Rincon doesn't do sh*t to help him so he's switching to Dr. Ellington . Patient reports Dr. Rincon wouldn't give him morphine because she thinks he is taking the gabapentin however patient reports he is NOT taking the gabapentin. Patient does currently receive oxycodone which he reports is helpful for hisback pain but NOT his R shoulder pain. Patient reports he went to [facility] yesterday to be evaluated however the wait time was too long and he left. Patient is extremely upset on the phone, interrupting RN several times and swearing constantly. Patient is looking for [facility] to prescribe the same pain med ication he receieved in the hospital. Per [facility] notes, patient also seen on 03/31/25 for R shoulder pain and received toradol injection. Patient reports he is aware there is toradol available in tablet form and he wants it to be prescribed to him. Patient advised we cannot RX medications without the patient being seen in the office. Patient reports I don't wanna f*cking see Dr. Rincon she is useless , RN informed patient he does NOT have to see Dr. Rincon, he can see another provider at [facility] in the [facility] today. Patient reports I'm not going to the health center to waste my f*cking time they can just send the medication to the pharmacy . RN re-iterated to the patient he cannot continue to swear and yell or else this conversation will need to be terminated. Patient continued to speak over RN and repeated this is why I go to the hospital because you guys are f*cking useless and just waste my f*cking time. The hospital told me my doctor can prescribe the medication . RN re-attempted to inform the patient we are NOT saying he cannot be prescribed toradol tablets or another medication however the medication cannot be sent to the pharmacy without the patient being seen at [facility]. Patient advisedof [facility] hours for today however patient is not interested in listening to anything besides the medication will be sent to the pharmacy. RN again re-attempted to explain the process to the patient however he contiued to swear at RN, speaking over RN and repeating thanks for wasting my f*cking time. Lady you are useless. I rather go back to the hospital . Patient advsied if he continues to swear atRN and continues to speak over RN then conversation will be ended. Patient again repeated thanks for f*ucking nothing and for wasting my f*cking time . At this point RN terminated conversation. of note, per ED note dated 03/31/25: He had good relief with toradol IM in the past therefore I am happy to medicate him here in the ED. He is hoping to be d/c on toradol orally, however pt has hadhx of bleeding stomach ulcers due to ibuprofen usage, therefore I believe that this would not be inhis best interest, and I encouraged patient to continue taking tylenol for his symptoms. Protocol Used: Shoulder Pain (Adult) Protocol-Based Disposition: Go to Office or Video Visit Now Video visit not offered Positive Triage Questions: * Severe pain (e.g., excruciating, unable to do any normal activities) * Shoulder pain is a chronic symptom (recurrent or ongoing AND present > 4 weeks) * All higher-acuity triage questions were negative * Telephone Encounter - Andrew Maldonado - 04/21/2025 1:27 PM EDT Symptom: Shoulder Pain - Not From Injury Outcome: Schedule an urgent appointment (within 1 hour) or talk to a nurse or provider soon Reason: Can't use the shoulder normally Please contact pt at [phone]. documented in this encounter Plan of Treatment Upcoming Encounters Date Type Department Care Team ([facility] st Contact Info) Description 05/03/2025 11:00 AM EDT Office Visit [facility] MED[facility]INE [address] [place] [address] 06/10/2025 1:45 PM EST Office Visit [address] [address] Annmarie Ellington MD [address] [place] [address] documented as of this encounter Visit Diagnoses Not on filedocumented in this encounter Additional Health Concerns Assessment Noted Time PHQ-9 Depression Total Score: 0 11/25/19 25 2:10 PM EDT documented as of this encounter Care Teams Distilling Department Supervisor Relationship Specialty Start Date End Date Amy Pickett MD [address] [place] [address] PCP - General Internal Medicine 04/07/23 documented as of this encounter
--- OUTSIDE RECORDS SUMMARY | 2025-04-21 18:56 | XMS_ITS | Encounter Summary ---
Author Organization [employer] Address [address] [place] [address] 7 [place] [address] Care Team Providers Care Side Panel Padder Name Role Phone Amy Pickett MD Primary Care Pro vider Reason for Visit * Reason Onset Date Comments Med Refill 08/06/2024 Encounter Details Date Type Department Care Team ([facility] st Contact Info) Description 08/06/[address] [facility] MED[facility]INE [address] [place], [place] [phone] Amy Pickett MD 230 [place], [place] [phone] Med Refill Social History Tobacco Use Types [...] 0.083% nebulizer solution To be sent to: [facility]/pharmacy #[id number] - [address] documented in this encounter Plan of Treatment Upcoming Encounters Date Type Department Care Team (Late st Contact Info) Description 05/03/2025 11:00 AM EDT Office Visit [facility] MED[facility] [address] [place] [address] 06/10/2025 1:45 PM EST Office Visit [facility] MED[facility] [address] [place] [address] Annmarie Ellington MD [address] [place], [place] [phone] documented as of this encounter Visit Diagnoses Not on filedocumented in this encounter Additional Health Concerns Assessment Noted Time PHQ-9 Depression Total Score: 10 024 9:41 AM EDT documented as of this encounter Care Teams Side Panel Padder Relationship Specialty Start Date End Date Amy Pickett MD [address] [place] [address] PCP - General Internal Medicine 04/07/23 documented as of this encounter
--- OUTSIDE RECORDS SUMMARY | 2025-04-21 18:56 | XMS_ITS | Encounter Summary ---
Author Organization [employer] Address [address] [place] [address] 7 [place] [address] Care Team Providers Care Geographic Information Systems Manager Name Role Phone Amy Pickett MD Primary Care Pro vider Reason for Visit * Reason Onset Date Comments Med Refill 02/24/2025 Encounter Details Date Type Department Care Team ([facility] st Contact Info) Description 02/24/2025 Telephone [facility] MEDICINE [address] [place], [place] [phone] Amy Pickett MD 230 [place], [place] [phone] Med Refill Social History Tobacco Use Types [...] immediate release tablet To be sent to: [facility]/pharmacy #[id number] documented in this encounter Plan of Treatment Upcoming Encounters Date Type Department Care Team (Late st Contact Info) Description 05/03/2025 11:00 AM EDT Office Visit [facility] MEDICINE [address] [place] [address] [phone] 06/10/2025 1:45 PM EST Office Visit [facility] MEDICINE [address] [place] [address] Annmarie Ellington MD [address] [place] [address] documented as of this encounter Visit Diagnoses Not on filedocumented in this encounter Additional Health Concerns Assessment Noted Time PHQ-9 Depression Total Score: 0 11/25/19 25 2:10 PM EDT documented as of this encounter Care Teams Geographic Information Systems Manager Relationship Specialty Start Date End Date Amy Pickett MD [address] [place] [address] PCP - General Internal Medicine 04/07/23 documented as of this encounter
--- OUTSIDE RECORDS SUMMARY | 2025-04-21 18:56 | XMS_ITS | Encounter Summary ---
Author Organization [employer] Address [address] [place] [address] 7 [place] [address] Care Team Providers Care Ironworker Machine Operator Name Role Phone Amy Pickett MD Primary Care Pro vider Reason for Visit * Reason Onset Date Comments Med Refill 02/11/2024 Encounter Details Date Type Department Care Team (Late st Contact Info) Description 02/11/2024 Telephone [facility] MEDICINE [address] [place], [place] [phone] Amy Pickett MD 230 [place], [place] [phone] Med Refill Social History Tobacco Use Types [...] To be sent to: [facility]/pharmacy #[id number] - [address] documented in this encounter Plan of Treatment Upcoming Encounters Date Type Department Care Team (Late st Contact Info) Description 05/03/2025 11:00 AM EDT Office Visit [facility] MEDICINE [address] [place] [address] 06/10/2025 1:45 PM EST Office Visit [facility] MEDICINE [address] [place] [address] Annmarie Ellington MD [address] [place] [address] documented as of this encounter Visit Diagnoses Not on filedocumented in this encounter Additional Health Concerns Assessment Noted Time PHQ-9 Depression Total Score: 24 023 10:05 AM EDT documented as of this encounter Care Teams Ironworker Machine Operator Relationship Specialty Start Date End Date Amy Pickett MD [address] [place] [phone] PCP - General Internal Medicine 04/07/23 documented as of this encounter
--- OUTSIDE RECORDS SUMMARY | 2025-04-21 18:56 | XMS_ITS | Encounter Summary ---
Author Organization [employer] Address [address] [facility] 7 [place] [address] Care Team Providers Care Work Car Operator Name Role Phone Amy Pickett MD Primary Care Pro vider Reason for Visit * Reason Onset Date Comments Appointment Request 09/02/2023 Encounter Details Date Type Department Care Team ([facility] st Contact Info) Description 09/02/2023 Telephone [facility] MEDICINE [address] [place], [place] [phone] Amy Pickett MD 230 [place] [address] Appointment Request Social History Tobacco Use Types [...] t he electric, gas, oil or water [employer] threatened to shut off services in your [...] from pt requesting a transfer patient appointment. Pick Pulling Machine Tender does not see any availability. Pt states he needs appointment as soon as possible due to controlled medication. States needs to be seen bya new provider to continue medication. Please contact pt at [phone] documented in this encounter Plan of Treatment Upcoming Encounters Date Type Department Care Team (Late st Contact Info) Description 05/03/2025 11:00 AM EDT Office Visit [facility] MEDICINE [address] [place] [address] 06/10/2025 1:45 PM EST Office Visit [address] [address] Annmarie Ellington MD [address] [place] [address] documented as of this encounter Visit Diagnoses Not on filedocumented in this encounter Additional Health Concerns Assessment Noted Time PHQ-9 Depression Total Score: 24 023 10:05 AM EDT documented as of this encounter Care Teams Work Car Operator Relationship Specialty Start Date End Date Amy Pickett MD [address] [place] [phone] PCP - General Internal Medicine 04/07/23 documented as of this encounter
--- OUTSIDE RECORDS SUMMARY | 2025-04-21 18:56 | XMS_ITS | Clinical Summary ---
Author Organization [employer] Address [address] [place] [address] 7[address] [place] [address] Care Team Providers Care Sales And Marketing [...] vomiting. 60 tablet 1 023 Active pancrelipase, Qqp-Ftnw-Whqs, (Creon) 5943-0989 units capsule Take 1 capsule by mouth [...] oxyCODONE (Roxicodone) 15 MG immediate release tabletIndicatio ns:COMB TENDER checked 06/13/22 Take 1 tablet (15 mg) by mouth every 6 (six) hours for 28 days. 112 tablet Active ipratropium-alb uterol (Combivent Respimat) 20-100 MCG/ACT inhalerIndicati ons:Moderate persistent asthma without complication INHALE 2 PUFFS BY MOUTH EVERY 6 HOURS 4 g 3 025 2024 Discontinued(R eorder (will not trigger notification to Pharmacy)) oxyCODONE (Roxicodone) 15 MG immediate release tabletIndicatio ns:COMB TENDER checked 06/13/22 Take 1 tablet (15 mg) [...] recommended. -Supportive care advised. -Isolation recommendations discussed. 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 Confirmatory testing sent. Chronic obstructive pulmonar y disease, unspecified COPD type (CMS/HCC) 05/16/2024 Overview (09/05/2024): [facility] [...] Encouraged [facility] NURSE CLINICIAN at this time. Will perform random Utox [...] Utox pos cocaine. Confirmatory testing sent. See corporate travel manager. Assessment & Plan (09/28/2024 2:02 PM [...] Injections 11/2022 Encouraged stretching Will refer to [facility] physical therapy Continue NURSE CLINICIAN at this time. Will perform random Utox [...] lumbar pain. Encouraged stretching Will refer to [facility] Continue NURSE CLINICIAN at this time. Will perform random Utox [...] organization. Date Type Department Care Team Description 04/21/2025 Telephone [facility] [address] [place] [address] Amy Pickett MD FYI 04/21/2025 Refill [facility] [address] [place] [address] Amy Pickett MD Chronic pain of both knees; Chronic low back pain, unspecified back pain laterality, unspecified whether sciatica present 04/21/2025 Telephone [facility] [address] [place] [address] Amy Pickett MD Nurse Triage 04/15/2025 Telephone [facility] [address] [place] [address] Amy Pickett MD Durable Medical Equipment 04/12/2025 Telephone [facility] [address] [place] [phone] Amy Pickett MD Transfer PCP request 04/11/2025 Telephone [facility] [address] [place] [phone] Amy Pickett MD 04/06/[address] [address] Amy Pickett MD Durable Medical Equipment 03/31/2025 Orders Only [facility] External Provider, [facility] 03/29/2025 9:45 AM EDT Clinical Support [facility] [address] [place] [phone] 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 RN Chronic right shoulder pain (Primary Dx) 03/29/2025 Telephone [facility] [address] [place] [address] 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 RN 03/29/2025 Orders Only [facility] [address] [place] [phone] Amy Pickett MD Chronic right shoulder pain (Primary Dx) 03/29/2025 Telephone [facility] [address] [place] [address] 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 RN 03/29/2025 Travel 03/24/2025 Refill [facility] [address] [place] [address] 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, spinning mule tender pain of both knees; Chronic low back pain, unspecified back pain laterality, unspecified whether sciatica present 03/24/2025 Refill [facility] [address] [place] [address] Amy Pickett MD Moderate persistent asthma without complication 03/24/2025 Telephone [facility] [address] [place] [phone] Amy Pickett MD Med Refill 03/22/2025 Orders Only [facility] External Provider, [facility] 03/18/2025 Orders Only [facility] [address] [place] [address] Amy Pickett MD 03/18/2025 Telephone [facility] [address] [place] [address] Amy Pickett MD Change PCP 03/18/2025 Telephone [facility] [address] [place] [address] 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, DARIANA 03/17/2025 Orders Only [facility] [address] [place] [phone] Amy Pickett MD 03/17/2025 Telephone [facility] [address] [place] [address] Amy Pickett MD Nurse Triage 03/17/2025 Telephone [facility] [address] [place] [address] Amy Pickett MD Medication Question 03/16/2025 Telephone [facility] [address] [place] [address] 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, DARIANA 03/16/2025 Telephone [facility] [address] [place] [address] Amy Pickett MD FYI 03/08/2025 Orders Only [facility] [address] [place] [address] Amy Pickett MD 03/08/2025 Telephone [facility] [address] [place] [address] 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 RN 03/05/2025 Refill [facility] [address] [place] [phone] Amy Pickett MD Chronic low back pain, unspecified back pain laterality, unspecified whether sciatica present 03/03/2025 Telephone [facility] [address] [place] [phone] Amy Pickett MD Durable Medical Equipment 03/03/[address] [address] Amy Pickett MD call back requesting 03/01/2025 9:10 AM EDT Clinical Support [address] [address] 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, DARIANA USP 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 03/01/2025 Orders Only [facility] [address] [place] [address] Amy Pickett MD 03/01/2025 Telephone [facility] [address] [place] [address] 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 RN 03/01/2025 Travel 02/24/2025 Refill [facility] [address] [place] [address] 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, spinning mule tender pain of both knees; Chronic low back pain, unspecified back pain laterality, unspecified whether sciatica present 02/24/2025 Telephone [facility] [address] [place] [address] Amy Pickett MD med 02/24/2025 Telephone [facility] [address] [place] [address] Amy Pickett MD Med Refill 02/19/2025 Refill [facility] [address] [place] [address] Amy Pickett MD 02/10/2025 9:30 AM EDT Office Visit [facility] [address] [place] [address] Amy Pickett MD Cervical spondylosis without myelopathy (Primary Dx); Chronic migraine without aura without status migrainosus, not intractable; Essential hypertension; H/O lipoma; Mass of wrist, right; Claudication of left lower extremity ([facility]/HCC); Health care maintenance; Lipoma, unspecified site; USP 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; Chronic right shoulder pain; Spondylosis of cervical spine; Chronic bilateral low back pain without sciatica 02/10/2025 Telephone [facility] [address] [place] [address] Amy Pickett MD Change PCP; TRANSFER REQUEST 02/10/2025 Travel 02/08/2025 Refill [facility] [address] [place] [address] Amy Pickett MD 02/03/2025 Refill [facility] [address] [place] [address] Bri Noriega MD 02/01/2025 Telephone [facility] [address] [place] [address] Amy Pickett MD Durable Medical Equipment 01/27/2025 Orders Only [facility] External Provider, [facility] 01/25/2025 9:45 AM EDT Office Visit [facility] [address] [place] [address] Holly Wills, KENDRA Spondylosis of cervical spine (Primary Dx); USP 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 01/25/2025 Telephone [facility] [address] [place] [address] 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 RN 01/25/2025 Travel 01/21/2025 Refill [facility] [address] [place] [address] Amy Pickett MD Chronic pain of both [...] Office Visit [facility] [address] [place] [address] 06/10/2025 1:45 PM EST Office Visit [facility] [address] [place] [address] Annmarie Ellington MD [address] [place] [address] Health Maintenance Due Date Last Done Comments [...] DRUG SCREEN Routine 03/01/2025 10:10 AM EDT 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 DRUG MONITOR, COCAINE METAB, QN, URINE Routine 03/01/2025 9:32 AM EDT XR WRIST 3+ VIEWS RIGHT Routine 01/27/2025 11:18 AM EDT XR ELBOW 1-2 VIEWS RIGHT Routine 01/27/2025 11:13 AM EDT XR SHOULDER 2+ VIEWS RIGHT Routine 01/27/2025 11:06 AM EDT POCT ROBIN-14 URINE DRUG SCREEN Routine 01/25/2025 10:15 AM EDT Spondylosis of cervical spine 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 C5-C6: Small posterior disc protrusion. Mild gmph-fnedhus-ljwk-right neural foraminal narrowing. No significant central canal stenosis. C6-C7: Sneor-fj-cftbcnvs posterior disc protrusion. Moderate bilateral neural foraminal [...] 04/01/25 1137 DD/ 1136 TD/TT: 04/01/25 1136 Industrial Rehabilitation Consultant: Procedure Note Donotuseinterpreter, Image - 04/01/2025 [place] [address] Magnetic Resonance Report Signed Patient: Zain Welch LMR# : [id number] : 1965Acct:[id number] Age/Sex: 59 / MADM Date: 03/31/25 Loc: HO.MRI Attending Dr: Juan David MIRANDA Ordering Physician: Rosangela Cole CNP Date of Service: 03/31/25 Procedure(s): MR cervical spine wo con Accession Number(s): [id number] cc: Rosangela Cole CNP; Amy Pickett MD [...] stenosis. C5-C6: Small posterior disc protrusion. Mild qytg-ajxwnly-rkqf-right neural foraminal narrowing. No significant central canal stenosis. C6-C7: Mvkwj-eu-iuehecxv posterior disc protrusion. Moderate bilateral neural foraminal [...] 04/01/25 1137 DD/ 1136 TD/TT: 04/01/25 1136 Industrial Rehabilitation Consultant: [facility] External Provider IMG MRI PROCEDURES Final Result [...] - 03/29/2025 10:07 AM EDT .UTOX cup Lot#[id number] Exp. 04/12/26 Internal Pass Control Amy Berry MD POINT OF CARE SOHA T ENTER/EDIT ORDERABLES Final Result * XR Pelvis 1-2 Views (03/22/2025 1:32 PM EDT) Anatomical Region Laterality Modality Body, Pelvis Radiographic Maxine ging 03/22/2025 1:32 PM EDT Narrative 03/22/2025 1:45 PM EDT [address] [address] XRay Report Signed Patient: Zain Welch MR# : [id number] : 1965 Acct:[id number] Age/Sex: 59 / M ADM Date: 03/22/25 Loc: HOYAJAIRA Attending Dr: Salvador Elliott MD Ordering Physician: Salvador Elliott MD Date of Service: 03/22/25 Procedure(s): XR pelvis 1-2V Accession Number(s): [id number] cc: Salvador Elliott MD; Amy Pickett MD [...] 03/22/25 1343 DD/ 1332 TD/TT: 03/22/25 1335 Industrial Rehabilitation Consultant: Procedure Note Jeseotroccoter, Image - 03/22/[address] [address] XRay Report Signed Patient: Zain Welch LMR# : [id number] : 1965Acct:[id number] Age/Sex: 59 / MADM Date: 03/22/25 Loc: HO.COLE Attending Dr: Salvador Elliott MD Ordering Physician: Salvador Elliott MD Date of Service: 03/22/25 Procedure(s): XR pelvis 1-2V Accession Number(s): [id number] cc: Salvador Elliott MD; Amy Pickett MD [...] 03/22/25 1343 DD/ 1332 TD/TT: 03/22/25 1335 Industrial Rehabilitation Consultant: [facility] External Provider IMG XR PROCEDURES Edited Result - Final * Drug Monitoring, Cocaine Metabolite, Quantitative, Urine (03/01/2025 9:32 AM EDT) Only the most recent of2 resultswithin the time period is included. Benzoylecgonine 885 [facility] Comment:CUTOFF 100NG/MLPERFO RMING SITE:[employer] [facility], [address] [place], [place] [id number] Passenger Brakeman: MICHELLE GAUTAM MD, CLIA:[id number] Cocaine Comments SEE NOTE [facility] Comment:This drug testing is for medical treatment only. Analysiswas performed as non-forensic testing and these resultsshould be used only by healthcare providers torender diagnosis or treatment, or to monitor progress ofmedical conditions.Cocaine Notes:Benzoylecgonine detected is consistent with the use of thedrug Cocaine.LDT Notes:Confirmation tests were developed and their analyticalperformance characteristics have been determined by [employer]. It has not been cleared orapproved by the FDA. This assay has been validated pursuantto the CLIA regulations and is used for clinical purposes.Healthcare Providers needing Interpretation assistance,please contact us at [phone] ( ) M-F,8am to 10pm EST 03/01/2025 9:32 AM EDT 03/01/2025 1:39 PM EDT Amy Berry MD LAB URINE ORDERAB LES Final Result [facility] [address] [place] [address] [phone] * XR Wrist 3+ Views Right (01/27/2025 11:18 AM EDT) Anatomical Region Laterality Modality Upper Extremities, Wrist Right Radiogr aphic Imaging 01/27/2025 11:1 8 AM EDT Narrative 01/27/2025 12:26 PM EDT [address] [address] XRay Report Signed Patient: Zain Welch MR# : [id number] : 1965 Acct:[id number] Age/Sex: 59 / M ADM Date: 01/27/25 Loc: HO.ED Attending Dr: Ordering Physician: Ailyn Carbone Date of Service: 01/27/25 Procedure(s): XR wrist RT min 3V Accession Number(s): [id number] cc: Ailyn Carbone; Amy Pickett MD EXAMINATION: [...] 01/27/25 1223 DD/ 1118 TD/TT: 01/27/25 1217 Industrial Rehabilitation Consultant: Procedure Note Donotuseinterpreter, Image - 01/27/[address] [address] XRay Report Signed Patient: Zain Welch LMR# : [id number] : 1965Acct:[id number] Age/Sex: 59 / MADM Date: 01/27/25 Loc: HO.ED Attending Dr: Ordering Physician: Ailyn Carbone Date of Service: 01/27/25 Procedure(s): XR wrist RT min 3V Accession Number(s): [id number] cc: iAlyn Carbone; Amy Pickett MD EXAMINATION: XR WRIST, [...] 01/27/25 1223 DD/ 1118 TD/TT: 01/27/25 1217 Industrial Rehabilitation Consultant: [facility] External Provider IMG XR PROCEDURES Edited Result - Final * XR Elbow 1-2 Views Right (01/27/2025 11:13 AM EDT) Anatomical Region Laterality Modality Upper Extremities, Elbow Right Radiogr aphic Imaging 01/27/2025 11:1 3 AM EDT Narrative 01/27/2025 12:25 PM EDT [place] [address] XRay Report Signed Patient: Zain Welch MR# : [id number] : 1965 Acct:[id number] Age/Sex: 59 / M ADM Date: 01/27/25 Loc: HO.ED Attending Dr: Ordering Physician: Ailyn Carbone Date of Service: 01/27/25 Procedure(s): XR elbow RT 2V Accession Number(s): [id number] cc: Ailyn Carbone; Amy Pickett MD EXAMINATION: [...] 01/27/25 1223 DD/ 1113 TD/TT: 01/27/25 1217 Industrial Rehabilitation Consultant: Procedure Note Donotuseinterpreter, Image - 01/27/2025 [place] [address] XRay Report Signed Patient: Zain Welch LMR# : [id number] : 1965Acct:[id number] Age/Sex: 59 / MADM Date: 01/27/25 Loc: HO.ED Attending Dr: Ordering Physician: Ailyn Carbone Date of Service: 01/27/25 Procedure(s): XR elbow RT 2V Accession Number(s): [id number] cc: Ailyn Carbone; Amy Pickett MD EXAMINATION: [...] MDin OV> 01/27/25 1223 DD/ 1113 TD/TT: 07/24/25 1217 Industrial Rehabilitation Consultant: us [facility] External Provider IMG XR PROCEDURES Edited Result - Final * XR Shoulder 2+ Views Right (01/27/2025 11:06 AM EDT) Anatomical Region Laterality Modality Upper Extremities, Shoulder Right Radi ographic Imaging 01/27/2025 11:0 6 AM EDT Narrative 01/27/2025 12:25 PM EDT [address] [address] XRay Report Signed Patient: Zain Welch MR# : [id number] : 1965 Acct:[id number] Age/Sex: 59 / M ADM Date: 01/27/25 Loc: .ED Attending Dr: Ordering Physician: Ailyn Carbone Date of Service: 01/27/25 Procedure(s): XR shoulder RT min 2V Accession Number(s): [id number] cc: Ailyn Carbone; Amy Pickett MD EXAMINATION: [...] cervical spine no fully included in the yfaef-de-gkkb. Calcified plaque in the thoracic aortic arch. XR/XR shoulder RT min 2V IMPRESSION: Mild degenerative changes without acute fracture or dislocation. Electronically signed by: Tyler Cortez MD 01/27/2025 12:22 PM EDT Dictated By: Tyler Serrato MD Signed By: <Electronically signed by Tyler Reid MD in OV> 01/27/25 1222 DD/ 1106 TD/TT: 01/27/25 1217 Industrial Rehabilitation Consultant: Procedure Note Donotuseinterpreter, Image - 01/27/[address] [address] XRay Report Signed Patient: Zain Welch LMR# : [id number] : 1965Acct:[id number] Age/Sex: 59 / MADM Date: 01/27/25 Loc: HO.ED Attending Dr: Ordering Physician: Ailyn Carbone Date of Service: 01/27/25 Procedure(s): XR shoulder RT min 2V Accession Number(s): [id number] cc: Ailyn Carbone; Amy Pickett MD EXAMINATION: [...] cervical spine no fully included in the yrjcy-sz-ehzi. Calcified plaque in the thoracic aortic arch. XR/XR shoulder RT min 2V IMPRESSION: Mild degenerative changes without acute fracture or dislocation. Electronically signed by: Tyler Cortez MD 01/27/2025 12:22 PM EDT Dictated By: Tyler Serrato MD Signed By: <Electronically signed by Tyler Reid MDin OV> 01/27/25 1222 DD/ 1106 TD/TT: 01/27/25 1217 Industrial Rehabilitation Consultant: [facility] External Provider IMG XR PROCEDURES Edited Result - Final * (ABNORMAL) Hepatitis C Antibody with Reflex to HCV, RNA, Quantitative, Real- Time PCR (09/29/2024 3:37 PM EDT) Hepatitis C Antibody Reactive( A) Nonreactive [facility] Comment:Presumptive evidence of antibodies to HCV. Blood Venous blood specimen / Unknown 09/29/2024 3:37 PM EDT 09/29/2024 3:38 PM EDT Brent Fischer MD LAB BLOOD ORDERABL ES Final Result Performing Organization Address [facility] Co de Phone Number [facility] [address] [place] [address] [phone] * HIV-1/2 Antigen and Antibodies, Fourth Generation, with Reflexes (09/29/2024 3:37 PM EDT) HIV AB/AG Nonreactive Nonreactive [facility] [...] below the limit ofdetection of this assay.The [employer] Engage HIV Ag/Ab Combo assay result andsupplemental assay results should be interpreted inconjunction with the patient's clinical presentation,history and other laboratory results. If the results areinconsistent with clinical evidence, additional testing issuggested to confirm the result. Blood Venous blood specimen / Unknown 09/29/2024 3:37 PM EDT 09/29/2024 3:38 PM EDT Brent Fischer MD LAB BLOOD ORDERABL ES Final Result Performing Organization Address [facility]/ZIP Co de Phone Number [facility] [address] [place] [address] [phone] * (ABNORMAL) Lipid Panel, Standard (09/29/2024 3:37 PM EDT) Triglycerides 155(H) <150 mg/dL [facility] Comment:Desirable Triglyceri de: less than 150 mg/dLBorderline High Triglyceride 150-199 mg/dLHigh Triglyceride: 200-499 mg/dLVery High Triglyceride: greater than or equal to 5OO mg/dL Cholesterol 211(H) <200 mg/dL [facility] Comment:Desirable Cholestero l: less than 200 mg/dLBorderline High Cholesterol: 200-239 mg/dLHigh Cholesterol: greater than 239 mg/dL LDL Cholesterol Calculated 131(H) <100 mg/dL [facility] Comment:Desirable LDL: less than 100 mg/dLNear Optimal/Above Optimal LDL: 110- 129 mg/dLBorderline High LDL: 130-159 mg/dLHigh LDL: 160-189 mg/dLVery High LDL: greater than or equal to 190 mg/dL HDL Cholesterol 49 >40 mg/dL [facility] Comment:Desirable HDL: great er than 40 mg/dL Note: This HDL assay may give artificially low results in patients with liver disease. Blood Venous blood specimen / Unknown 09/29/2024 3:37 PM EDT 09/29/2024 3:38 PM EDT Amy Berry MD LAB BLOOD ORDERAB LES Final Result [facility] [address] [place] [address] [phone] * Hm Colonoscopy (01/06/2018 8:00 AM EDT) us Historical Provider HEALTH MAINTENANCE Final Result from Last 3 Months or Most Recently Relevant to Health Maintenance Insurance [facility] CARE < 65 [place] [id number] [address] [place], [place] [address] [place], [place] Care Teams Sales And Marketing Specialist Relationship Specialty Start Date End Date Amy Pickett MD [address] [place] [phone] PCP - General Internal Medicine 04/07/23
--- OUTSIDE RECORDS SUMMARY | 2025-04-21 18:56 | XMS_ITS | Encounter Summary ---
Author Organization [employer] Address [address] [facility] 7 [place] [address] Care Team Providers Care Ice Bag Assembler Name Role Phone Amy Pickett MD Primary Care Pro vider Reason for Visit * Reason Onset Date Comments Medication Question 03/17/2025 Encounter Details Date Type Department Care Team ([facility] st Contact Info) Description 03/17/2025 Telephone [facility] [address] [place], [place] [phone] Amy Pickett MD [address] [place] [address] Medication Question Social History Tobacco Use Types [...] pain killer. Any questions contact pt at [phone] * Telephone Encounter - Andrew Maldonado - 03/17/2025 11:19 AM EDT Tc from Domenica, pt's COMMERCIAL LOAN SPECIALIST, stating pt had a surgery done but due to pt being prescribed Oxycodone they were unable to prescribe pt any pain medication. Domenica is hoping pt can be prescribed some sort of muscle relaxer or an accomodation to be prescribed medication. If any questions please contact Domenica at [phone]. documented in this encounter Plan of Treatment Upcoming Encounters Date Type Department Care Team ([facility] st Contact Info) Description 05/03/2025 11:00 AM EDT Office Visit [facility] [address] [place] [phone] 06/10/2025 1:45 PM EST Office Visit [facility] [address] [place], [place] [phone] Annmarie Ellington MD [address] [place] [address] documented as of this encounter Visit Diagnoses Not on filedocumented in this encounter Additional Health Concerns Assessment Noted Time PHQ-9 Depression Total Score: 0 11/25/19 25 2:10 PM EDT documented as of this encounter Care Teams Ice Bag Assembler Relationship Specialty Start Date End Date Amy Pickett MD [address] [place], [place] [phone] PCP - General Internal Medicine 04/07/23 documented as of this encounter
--- OUTSIDE RECORDS SUMMARY | 2025-04-21 18:56 | XMS_ITS | Encounter Summary ---
Author Organization [employer] Address [address] [place] [address] 7t [place] [address] Care Team Providers Care Senior Data Mining Analyst Name Role Phone Elise Glover FLAT IRONER Primary Care Provider Amy Ware MD Primary Care Pro vider Reason for Visit * Reason Onset Date Comments Durable Medical Equipment 10/07/2022 Encounter Details Date Type Department Care Team (Late st Contact Info) Description 10/07/2022 Telephone [facility] [address] [place] [address] Elise Glover, FLAT IRONER Durable Medical Equipment Social History Tobacco Use [...] If any questions please contact Anabelle at [phone] documented in this encounter Plan of Treatment Upcoming Encounters Date Type Department Care Team (Late st Contact Info) Description 05/03/2025 11:00 AM EDT Office Visit [address] [address] 06/10/2025 1:45 PM EST Office Visit [address] [address] Annmarie Ellington MD [address] [place] [address] documented as of this encounter Visit Diagnoses Not on filedocumented in this encounter Additional Health Concerns Assessment Noted Time PHQ-9 Depression Total Score: 24 023 10:05 AM EDT documented as of this encounter Care Teams Senior Data Mining Analyst Relationship Specialty Start Date End Date Elise Glover FNP PCP - General Family Medicine 07/09/22 04/06/23 Amy Pickett MD [address] [place] [address] PCP - General Internal Medicine 04/07/23 documented as of this encounter
--- OUTSIDE RECORDS SUMMARY | 2025-04-21 18:56 | XMS_ITS | Encounter Summary ---
Author Organization [employer] Address [address] [place] [address] 7 [place] [address] Care Team Providers Care Nurse Transitional Name Role Phone Amy Pickett MD Primary Care Pro vider Reason for Visit * Reason Onset Date Comments Med Refill 10/27/2024 Encounter Details Date Type Department Care Team ([facility] st Contact Info) Description 10/27/2024 Telephone [facility] [address] [place], [place] [phone] Amy Pickett MD 230 [place], [place] [phone] Med Refill Social History Tobacco Use Types [...] immediate release tablet To be sent to: [facility]/pharmacy #[id number] documented in this encounter Plan of Treatment Upcoming Encounters Date Type Department Care Team (Late st Contact Info) Description 05/03/2025 11:00 AM EDT Office Visit [facility] [address] [place] [address] 06/10/2025 1:45 PM EST Office Visit [facility] [address] [place] [address] Annmarie Ellington MD 230 [place] [address] documented as of this encounter Visit Diagnoses Not on filedocumented in this encounter Additional Health Concerns Assessment Noted Time PHQ-9 Depression Total Score: 10 024 9:41 AM EDT documented as of this encounter Care Teams Nurse Transitional Relationship Specialty Start Date End Date Amy Pickett MD [address] [place] [address] PCP - General Internal Medicine 04/07/23 documented as of this encounter
--- OUTSIDE RECORDS SUMMARY | 2025-04-21 18:56 | XMS_ITS | Encounter Summary ---
Author Organization [email or web address] Address [address] [place] [address] 7 [place] [address] Care Team Providers Care Magnetic Resonance Technologist Name Role Phone Amy Pickett MD Primary Care Pro vider Reason for Visit * Reason Onset Date Comments Med Refill 2024 Encounter Details Date Type Department Care Team ([facility] st Contact Info) Description 2024 Telephone [facility] 230 [place], [place] [phone] Amy Pickett MD 230 [place], [place] [phone] Med Refill Social History Tobacco Use Types [...] sent to: [facility]/pharmacy #[id number] documented in this encounter Plan of Treatment Upcoming Encounters Date Type Department Care Team (Late st Contact Info) Description 05/03/2025 11:00 AM EDT Office Visit [facility] [address] [place] [address] 06/10/2025 1:45 PM EST Office Visit [facility] [address] [place] [address] Annmarie Ellington MD 230 [place] [address] documented as of this encounter Visit Diagnoses Not on filedocumented in this encounter Additional Health Concerns Assessment Noted Time PHQ-9 Depression Total Score: 0 11/25/19 25 2:10 PM EDT documented as of this encounter Care Teams Magnetic Resonance Technologist Relationship Specialty Start Date End Date Amy Pickett MD [address] [place] [address] PCP - General Internal Medicine 04/07/23 documented as of this encounter
--- OUTSIDE RECORDS SUMMARY | 2025-04-21 18:56 | XMS_ITS | Encounter Summary ---
Author Organization [employer] Address 75 [facility] 7t [place] [address] Care Team Providers Care Real Estate Executive Assistant Name Role Phone Amy Pickett MD Primary Care Pro vider Encounter Details Date Type Department Care Team ([facility] st Contact Info) Description 04/11/2025 Telephone [facility] 230 [place], [place] [phone] Amy Pickett MD 230 [place], [place] [phone] Social History Tobacco Use Types Packs/Day Years [...] requested to transfer care. Transfer request approved. [facility] staff supervisor tunnel heading is aware of scheduled appointment in addition will be reaching out to patient to inform patient of upcoming appointment 06/10/25. documented in this encounter Plan of Treatment Upcoming Encounters Date Type Department Care Team (Late st Contact Info) Description 05/03/2025 11:00 AM EDT Office Visit [facility] [address] [place] [address] 06/10/2025 1:45 PM EST Office Visit [facility] [address] [place] [address] Annmarie Ellington MD [address] [place] [address] documented as of this encounter Visit Diagnoses Not on filedocumented in this encounter Additional Health Concerns Assessment Noted Time PHQ-9 Depression Total Score: 0 05/21/20 25 2:10 PM EDT documented as of this encounter Care Teams Real Estate Executive Assistant Relationship Specialty Start Date End Date Amy Pickett MD [address] [place] [address] PCP - General Internal Medicine 04/07/23 documented as of this encounter
--- OUTSIDE RECORDS SUMMARY | 2025-04-21 18:56 | XMS_ITS | Encounter Summary ---
Author Organization [employer] Address [address] [place] [address] 7 [place] [address] Care Team Providers Care Phlebotomist Supervisor/Instructor Name Role Phone Amy Pickett MD Primary Care Pro vider Reason for Visit * Reason Onset Date Comments Med Refill 04/21/2025 Encounter Details Date Type Department Care Team (Late st Contact Info) Description 04/21/2025 Refill [facility] 230 [place] [address] Amy Pickett MD 230 [place] [address] Chronic pain of both knees; Chronic low [...] the past 12 months, has t he [employer], gas, oil or water Soccer Manager threatened to shut off services in your [...] Telephone Encounter - Brooke Reid RN - 04/21/2025 4:19 PM EDT TALENT ACQUISITION RELATIONSHIP MANAGER reviewed. Pt last picked up 28 day supply of oxycodone 03/26/25. Earliest fill date Friday04/23/25. PM group appointment scheduled for 05/03/25. Refill appropriate. Queued. * Telephone Encounter - Jace Henry - 04/21/2025 3:38 PM EDT TC from pt requesting medication refill. Medications needing refill : oxyCODONE (Roxicodone) 15 MG immediate release tablet To be sent to: [facility]/pharmacy #[id number] documented in this encounter Plan of Treatment Upcoming Encounters Date Type Department Care Team (Late st Contact Info) Description 05/03/2025 11:00 AM EDT Office Visit [facility] [address] [place] [address] 06/10/2025 1:45 PM EST Office Visit [address] [address] Annmarie Ellington MD [address] [place] [address] documented as of this encounter Visit Diagnoses Diagnosis Chronic pain of both knees Chronic low back pain, unspecified back pain laterality, unspecified whether sciatica present documented in this encounter Additional Health Concerns Assessment Noted Time PHQ-9 Depression Total Score: 0 11/25/19 25 2:10 PM EDT documented as of this encounter Care Teams Phlebotomist Supervisor/Instructor Relationship Specialty Start Date End Date Amy Pickett MD [address] [place] [address] PCP - General Internal Medicine 04/07/23 documented as of this encounter
--- OUTSIDE RECORDS SUMMARY | 2025-04-21 18:56 | XMS_ITS | Encounter Summary ---
Author Organization [employer] Address [address] [place] [address] 7 [place] [address] Care Team Providers Care Design Technology Professor Name Role Phone Elise Glover NIGHT SHIFT Primary Care Provider Amy Ware MD Primary Care Pro vider Reason for Visit * Reason Onset Date Comments triage 08/22/2022 Encounter Details Date Type Department Care Team (Late st Contact Info) Description 08/22/2022 Telephone [facility]INE [address] [place] [address] Elise Glover NIGHT SHIFT triage Social History Tobacco Use Types Packs/Day [...] Description 05/03/2025 11:00 AM EDT Office Visit [address] [phone] 06/10/2025 1:45 PM EST Office Visit [facility] 230 [place] [address] Annmarie Ellington MD 230 [place], [place] [phone] documented as of this encounter Visit Diagnoses Not on filedocumented in this encounter Care Teams Design Technology Professor Relationship Specialty Start Date End Date Elise Glover FNP PCP - General Family Medicine 07/09/22 04/06/23 Amy Pickett MD 230 [place], [place] [phone] PCP - General Internal Medicine 04/07/23 documented as of this encounter
--- OUTSIDE RECORDS SUMMARY | 2025-04-21 18:56 | XMS_ITS | Encounter Summary ---
Author Organization [employer] Address 75 [facility] 7 [place] [address] Care Team Providers Care Logistics Planning Engineer Name Role Phone Amy Pickett MD Primary Care Pro vider Reason for Visit * Reason Onset Date Comments Durable Medical Equipment 04/15/2025 Encounter Details Date Type Department Care Team (Late st Contact Info) Description 04/15/2025 Telephone [facility] 230 [place], [place] [phone] Amy Pickett MD 230 [place] [address] Durable Medical Equipment Social History Tobacco Use [...] and sent to PCP for signature via [employer]. Once signed, will be faxedto [facility] and sent to scan. If patient calls to check status on above, please advise them to contact [facility] customer care consultant . * Telephone Encounter - Olamide Chavez [...] requesting DMEs Greetings, I am Sarai Mireles, Speech Therapy Assistant for [facility] Care Management, requesting the following DME???s on behalf of patient. DME Item: Transport wheelchair Recliner lift chair (Will require a PT evaluation) Supportive DX: Osteoarthritis, Spondylosis of cervical spine, posterior disc protrusion, If you should have any inquiries regarding this request, feel free to contact the Speech Therapy Assistant below. Speech Therapy Assistant: Sarai Mireles E-mail: [email or web address] Sales Strategy Manager: Kim Reid E-mail: [email or web address] documented in this encounter Plan of Treatment Upcoming Encounters Date Type Department Care Team (Late st Contact Info) Description 05/03/2025 11:00 AM EDT Office Visit [facility] [address] [place] [phone] 06/10/2025 1:45 PM EST Office Visit [facility] [address] [place] [address] Annmarie Ellington MD [address] [place] [phone] documented as of this encounter Visit Diagnoses Not on filedocumented in this encounter Additional Health Concerns Assessment Noted Time PHQ-9 Depression Total Score: 0 11/25/19 25 2:10 PM EDT documented as of this encounter Care Teams Logistics Planning Engineer Relationship Specialty Start Date End Date Amy Pickett MD [address] [place] [address] PCP - General Internal Medicine 04/07/23 documented as of this encounter
--- OUTSIDE RECORDS SUMMARY | 2025-04-21 18:56 | XMS_ITS | Encounter Summary ---
Author Organization [employer] Address 75 [facility] 7 [place] [address] Care Team Providers Care Telephone Sterilizer Name Role Phone Amy Pickett MD Primary Care Pro vider Reason for Visit * Reason Onset Date Comments FYI 04/21/2025 Encounter Details Date Type Department Care Team ([facility] st Contact Info) Description 04/21/2025 Telephone [facility]INE 230 [place], [place] [phone] Amy Pickett MD 230 [place] [address] FYI Social History Tobacco Use Types Packs/Day [...] encounter Miscellaneous Notes * Telephone Encounter - Jace Henry - 04/21/2025 3:39 PM EDT TC from pt wanted to report he does not take gabapentin (Neurontin) 600 MG tablet . Pt states meds make him drowsy and unable to function Pt reports when pick it up drops it off to a bin for medication he does not take . documented in this encounter Plan of Treatment Upcoming Encounters Date Type Department Care Team (Late st Contact Info) Description 05/03/2025 11:00 AM EDT Office Visit [facility]INE [address] [place] [address] 06/10/2025 1:45 PM EST Office Visit [facility] [address] [place] [address] Annmarie Ellington MD 230 [place] [address] documented as of this encounter Visit Diagnoses Not on filedocumented in this encounter Additional Health Concerns Assessment Noted Time PHQ-9 Depression Total Score: 0 11/25/19 25 2:10 PM EDT documented as of this encounter Care Teams Telephone Sterilizer Relationship Specialty Start Date End Date Amy Pickett MD [address] [place] [address] PCP - General Internal Medicine 04/07/23 documented as of this encounter
--- OUTSIDE RECORDS SUMMARY | 2025-04-21 18:56 | XMS_ITS | Encounter Summary ---
Author Organization [employer] Address [address] [place] [address] 7 [place] [address] Care Team Providers Care Local Delivery Driver Name Role Phone Amy Pickett MD Primary Care Pro vider Reason for Visit * Reason Onset Date Comments Med Refill 03/24/2025 Encounter Details Date Type Department Care Team (Late st Contact Info) Description 03/24/2025 Telephone [facility]INE 230 [place], [place] [phone] Amy Pickett MD 230 [place], [place] [phone] Med Refill Social History Tobacco Use Types [...] tablet To be sent to: [facility]/pharmacy #[id number] documented in this encounter Plan of Treatment Upcoming Encounters Date Type Department Care Team (Late st Contact Info) Description 05/03/2025 11:00 AM EDT Office Visit [facility]INE [address] [place] [address] [phone] 06/10/2025 1:45 PM EST Office Visit [facility] [address] [place] [address] Annmarie Ellington MD [address] [place] [address] documented as of this encounter Visit Diagnoses Not on filedocumented in this encounter Additional Health Concerns Assessment Noted Time PHQ-9 Depression Total Score: 0 11/25/19 25 2:10 PM EDT documented as of this encounter Care Teams Local Delivery Driver Relationship Specialty Start Date End Date Amy Pickett MD [address] [place] [address] PCP - General Internal Medicine 04/07/23 documented as of this encounter
--- OUTSIDE RECORDS SUMMARY | 2025-04-21 18:56 | XMS_ITS | Encounter Summary ---
Author Organization [employer] Address [address] [place] [address] 7t [place] [address] Care Team Providers Care Manager Strategic Sourcing Name Role Phone Elise Glover FARMWORKER VEGETABLE Primary Care Provider Amy Ware MD Primary Care Pro vider Encounter Details Date Type Department Care Team (Late st Contact Info) Description 01/14/2023 Orders Only [facility] [address] [place] [phone] Elise Glover FNP Social History Tobacco Use [...] Description 05/03/2025 11:00 AM EDT Office Visit [facility] [address] [place] [address] [phone] 06/10/2025 1:45 PM EST Office Visit [address] [phone] Annmarie Ellington MD [address] [place] [address] documented as of this encounter Visit Diagnoses Not on filedocumented in this encounter Additional Health Concerns Assessment Noted Time PHQ-9 Depression Total Score: 24 023 10:05 AM EDT documented as of this encounter Care Teams Manager Strategic Sourcing Relationship Specialty Start Date End Date Elise Glover FNP PCP - General Family Medicine 07/09/22 04/06/23 Amy Pickett MD 230 [place] [address] PCP - General Internal Medicine 04/07/23 documented as of this encounter
--- OUTSIDE RECORDS SUMMARY | 2025-04-21 18:56 | XMS_ITS | Encounter Summary ---
Author Organization [employer] Address 75 [facility] 7 [place] [address] Care Team Providers Care Cognos Bi Administrator Name Role Phone Amy Pickett MD Primary Care Pro vider Reason for Visit * Reason Onset Date Comments FYI 03/16/2025 Encounter Details Date Type Department Care Team ([facility] st Contact Info) Description 03/16/2025 Telephone [facility] MED[facility]INE 230 [place], [place] [phone] Amy Pickett MD 230 [place] [address] FYI Social History Tobacco Use Types Packs/Day [...] who reports pt currently having surgery at [facility] through [facility] to get SNS device removed so that he can have MRI done as he couldn't have MRI with the implant and he has excruciating 10/10 shoulder pain and can't lift his arm. Advised to call [facility] centralized scheduling to r/s MRI now that implant is being removed. Texted her their phone number via [employer] text at her request. She reports that [...] group appt be changed to a normal VOCATIONAL REHABILITATION ADMINISTRATOR appt. Seeing as though he is having [...] anything out of it. Would rather do VOCATIONAL REHABILITATION ADMINISTRATOR visits. Informed I would send message regarding this. * Telephone Encounter - Jesusita Castellanos - 03/16/2025 3:01 PM EDT Tc from [facility] stating specialist pritesh to give him an emergency surgery to get the implant out. So now pt is able to do MRI. documented in this encounter Plan of Treatment Upcoming Encounters Date Type Department Care Team (Late st Contact Info) Description 05/03/2025 11:00 AM EDT Office Visit [address] [address] 06/10/2025 1:45 PM EST Office Visit [address] [address] Annmarie Ellington MD 230 [place] [address] documented as of this encounter Visit Diagnoses Not on filedocumented in this encounter Additional Health Concerns Assessment Noted Time PHQ-9 Depression Total Score: 0 11/25/19 2:10 PM EDT documented as of this encounter Care Teams Cognos Bi Administrator Relationship Specialty Start Date End Date Amy Pickett MD [address] [place] [address] PCP - General Internal Medicine 04/07/23 documented as of this encounter
--- OUTSIDE RECORDS SUMMARY | 2025-04-21 18:56 | XMS_ITS | Encounter Summary ---
Author Organization [employer] Address [address] [facility] [address] 7t [place] [address] Care Team Providers Care Insurance Executive Name Role Phone Amy Pickett MD Primary Care Pro vider Encounter Details Date Type Department Care Team (Late st Contact Info) Description 06/24/2024 Orders Only [facility]INE 230 [place] [address] Provider, MD Bryan Social History Tobacco Use [...] Office Visit [facility] [address] [place] [phone] 06/10/2025 1:45 PM EST Office Visit [address] [address] Annmarie Ellington MD [address] [place] [address] documented as of this encounter Procedures Procedure [...] as of this encounter Care Teams Insurance Executive Relationship Specialty Start Date End Date Amy Pickett MD [address] [place] [address] PCP - General Internal Medicine 04/07/23 documented as of this encounter
--- OUTSIDE RECORDS SUMMARY | 2025-04-21 18:56 | XMS_ITS | Encounter Summary ---
Author Organization [employer] Address 75 [facility] 7 [place] [address] Care Team Providers Care Cheese Cutter Name Role Phone Amy Pickett MD Primary Care Pro vider Reason for Visit * Reason Comments Med Refill Encounter Details Date Type Department Care Team ([facility] st Contact Info) Description 06/17/2024 Refill [facility] 230 [place], [place] [phone] Amy Pickett MD 230 [place] [address] Social History Tobacco Use Types Packs/Day Years [...] Description 05/03/2025 11:00 AM EDT Office Visit [facility] [address] [place] [address] 06/10/2025 1:45 PM EST Office Visit [address] [address] Annmarie Ellington MD [address] [place] [address] documented as of this encounter Visit Diagnoses Not on filedocumented in this encounter Additional Health Concerns Assessment Noted Time PHQ-9 Depression Total Score: 10 024 9:41 AM EDT documented as of this encounter Care Teams Cheese Cutter Relationship Specialty Start Date End Date Amy Pickett MD [address] [place] [address] PCP - General Internal Medicine 04/07/23 documented as of this encounter
--- OUTSIDE RECORDS SUMMARY | 2025-04-21 18:56 | XMS_ITS | Encounter Summary ---
Author Organization [employer] Address 75 [facility] 7 [place] [address] Care Team Providers Care Tile Installer Name Role Phone Amy Pickett MD Primary Care Pro vider Reason for Visit * Reason Onset Date Comments Nurse Triage 03/17/2025 Encounter Details Date Type Department Care Team ([facility] st Contact Info) Description 03/17/2025 Telephone [facility] [address] [place], [place] [phone] Amy Pickett MD 230 [place] [address] Nurse Triage Social History Tobacco Use Types [...] to Zain Lazcano to triage below at [phone]. Pt states having a procedure done to [...] Is currently on the phone with a dimension quarry supervisor [facility]. She states that pt. 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 Pt. Luz Marina states that PCP will not give pt. Additional pain medication because pt. Is alreadyon Oxycodone. I advised that I will write this down as pt. Is currently speaking with a Trustee Of Estate. * Telephone Encounter - James Diana - 03/17/2025 4:02 PM EDT Symptom: Shoulder Pain - Not From Injury Outcome: Schedule an urgent appointment (within 1 hour) or talk to a nurse or provider soon Reason: Severe pain now The caller accepted this outcome. Contact pt at [phone] Pt was requesting for tramadol for his shoulder pain. Pt was already advised that he cannot take tramadol and Oxycodone at the same time. documented in this encounter Plan of Treatment Upcoming Encounters Date Type Department Care Team (Late st Contact Info) Description 05/03/2025 11:00 AM EDT Office Visit [facility] [address] [place] [address] 06/10/2025 1:45 PM EST Office Visit [facility] [address] [place] [address] Annmarie Ellington MD 230 [place] [address] documented as of this encounter Visit Diagnoses Not on filedocumented in this encounter Additional Health Concerns Assessment Noted Time PHQ-9 Depression Total Score: 0 11/25/19 25 2:10 PM EDT documented as of this encounter Care Teams Tile Installer Relationship Specialty Start Date End Date Amy Pickett MD [address] [place] [address] PCP - General Internal Medicine 04/07/23 documented as of this encounter
== END 2025-04-21 16:56 | disposition home or self-care (01) ==
LOC: HO.HGI 15:02
PROVIDERS: PCP Student in an Organized Health Care Education/Training Program; Visit Provider Nurse Practitioner
DX: K21.9 Gastro-esophageal reflux disease without esophagitis (principal); K58.0 Irritable bowel syndrome with diarrhea; R10.33 Periumbilical pain; M75.100 Unspecified rotator cuff tear or rupture of unspecified shoulder, not specified as traumatic; S46.819A Strain of other muscles, fascia and tendons at shoulder and upper arm level, unspecified arm, initial encounter; M75.20 Bicipital tendinitis, unspecified shoulder
CPT/HCPCS: 99213

== ENCOUNTER 2025-04-21 16:18 | Emergency (ER) | payer OTHER, SELFPAY ==
[2025-04-21 17:01] VITALS: BP 192/109; PULSE 104; RESP 18; TEMP 36.6; O2SAT 96; BMI 22.4
--- NOTE | 2025-04-21 17:05 | ED.EXTPRO ---
HPI - Extremity Problem General Chief complaint: Extremity Injury, Upper Stated complaint: right shoulder pain Time Seen by Provider: 04/21/25 17:36 Source: patient Mode of arrival: ambulatory Limitations: no limitations History of Present Illness ED Provider: Fabio Rojo HPI Narrative: 59 yold male presents with pmh of right shoulder supraspinatus, infraspinatus tear with bicep tendonitits presents to the ED for chronic right shoulder exacerbation. Patient needs right shoulder surgery that was postoponed. patient denies any new trauma, swelling, redness, chest pain,shortness of breath, or any other complaints. Related Data Home Medications ?Medication ?Instructions ?Recorded ?Confirmed cholecalciferol (vitamin D3) 50 50 mcg PO DAILY 05/22/20 03/30/25 mcg (2,000 unit) capsule fluticasone propionate 220 1 puff inhalation BID 05/22/20 03/30/25 mcg/actuation HFA aerosol inhaler (Flovent HFA) oxycodone 15 mg tablet 15 mg PO Q6H 05/22/20 03/30/25 albuterol sulfate 2.5 mg/3 mL 1 vial inhalation QID 07/19/20 03/30/25 (0.083 %) solution for nebulization multivitamin (Daily-Petra tablet) 1 tab PO DAILY 07/19/20 03/30/25 divalproex 500 mg tablet,delayed 1,000 mg PO BID 08/29/21 03/30/25 release fluoxetine 20 mg capsule 20 mg PO DAILY 08/29/21 03/30/25 alprazolam 1 mg tablet 1 mg PO BID PRN Anxiety 10/08/21 03/30/25 escitalopram oxalate 20 mg tablet 20 mg PO QAM 06/26/22 03/30/25 magnesium oxide 400 mg (241.3 mg 400 mg PO DAILY 06/26/22 03/30/25 magnesium) tablet lisinopril 5 mg tablet 10 mg PO BID 07/17/22 03/30/25 nebulizers 08/29/22 03/23/25 atorvastatin 40 mg tablet 40 mg PO DAILY 10/15/24 03/30/25 clopidogrel 75 mg tablet 75 mg PO DAILY 10/15/24 03/30/25 cyanocobalamin (vitamin B-12) 1,000 mcg PO DAILY 10/15/24 03/30/25 1,000 mcg tablet hydroxyzine HCl 10 mg tablet 10 mg PO BID 10/15/24 03/30/25 loratadine 10 mg tablet 10 mg PO DAILY 10/15/24 03/30/25 olmesartan 20 mg tablet 20 mg PO DAILY 10/15/24 03/30/25 rimegepant 75 mg disintegrating 75 mg PO DAILY PRN 10/15/24 03/30/25 tablet (Nurtec ODT) Previous Rx's ?Medication ?Instructions ?Recorded tamsulosin 0.4 mg capsule 0.4 mg PO DAILY 30 days #30 caps 06/26/22 fluticasone fur. 200 mcg-umeclid 1 inh inhalation DAILY 30 days #60 04/28/24 62.5 mcg-vilant 25 mcg ea inhalat.powder (Trelegy Ellipta) ipratropium 20 mcg-albuterol 100 1 puff inhalation QID 30 days #4 07/12/24 mcg/actuation mist for inhalation grams (Combivent Respimat) budesonide 0.5 mg/2 mL suspension 0.5 mg (2 mL) inhalation BID 30 10/14/24 for nebulization days #120 mL ipratropium 0.5 mg-albuterol 3 mg 3 ml inhalation BID 30 days #180 mL 10/14/24 (2.5 mg base)/3 mL nebulization soln diclofenac sodium 1 % topical gel 4 g topical QID PRN pain (scale 03/30/25 score 4-6) #100 grams sumatriptan succinate 100 mg tablet See Rx Instructions PO .COMPLEX 04/02/25 #30 tabs dicyclomine 20 mg tablet 20 mg PO QID #360 tabs 04/11/25 azithromycin 500 mg tablet 500 mg PO DAILY 5 days #5 tabs 04/21/25 cyclobenzaprine 5 mg tablet 5 mg PO TID PRN muscle spasm #90 04/21/25 tabs dexlansoprazole 60 mg 60 mg PO DAILY #90 caps 04/21/25 capsule,biphase delayed release famotidine 40 mg tablet 40 mg PO BEDTIME #90 tabs 04/21/25 guaifenesin 1,200 mg tablet, 1,200 mg PO BID 14 days #28 tabs 04/21/25 extended release 12 hr ondansetron HCl 4 mg tablet 4 mg PO BID PRN for 04/21/25 nausea/vomiting #60 tabs prednisone 20 mg tablet 40 mg (2 x 20 mg) PO DAILY 5 days 04/21/25 #10 tabs Allergies Allergy/AdvReac Type Severity Reaction Status Date / Time cat dander (CATS) Allergy Unknown UNKNOWN Verified 04/21/25 17:03 dog dander (DOGS) Allergy Unknown UNKNOWN Verified 04/21/25 17:03 pollen extracts (POLLEN) Allergy Unknown UNKNOWN Verified 04/21/25 17:03 tree and shrub pollen Allergy sneeze Verified 04/21/25 17:03 ibuprofen AdvReac causes Verified 04/21/25 17:03 stomach to bleed Review of Systems Review of Systems: right shoulder pain Yes all other systems are reviewed and are negative PMFSH Past Medical History Medical History Ganglion cyst Chest pain Nicotine dependence, cigarettes, uncomplicated Nausea and vomiting Dyspnea Photophobia Headache Syncope Dysphagia Seizure Lipoma of back STEPHON (obstructive sleep apnea) COPD (chronic obstructive pulmonary disease) Post herpetic neuralgia Multiple lipomas Osteoarthritis Gout History of peptic ulcer disease Hx of irritable bowel syndrome Chronic back pain Hx of insomnia History of panic attacks History of anxiety History of depression Asthma High cholesterol Hypertension Urinary retention Enlarged prostate Arthritis Slow urinary stream Marijuana use Alcohol abuse H/O ulcer disease Left flank pain Trochanteric bursitis, left hip Epidermal cyst Abdominal wall bulge Esophageal dysphagia Esophageal spasm Short frenulum of penis Balanitis Elevated blood pressure reading in office with diagnosis of hypertension Thalamic pain syndrome Abnormal loss of weight Painful orthopaedic hardware Pain in unspecified toe(s) Incisional pain Surgical History S/P placement of nerve stimulator H/O neck surgery Hx of arthroscopy of left knee H/O breast surgery S/P excision of lipoma History of bunionectomy History of cystoscopy History of colonoscopy History of esophagogastroduodenoscopy (EGD) Family History Family History Family/Other Cancer Diabetes AIDS Brother Diabetes Myocardial infarction Father Enlarged prostate Mother Diabetes Asthma Social History Social History Are you a primary daytime caregiver to a significant other at home: No Do you presently have visiting nurse or other home services: No Alcohol intake: never Patient Tobacco Use Status: Current everyday Tobacco user Cigarettes Per Day: 4 Years Smoked: (onset 16yo, 1ppd x 42yrs, now 1/2ppd - 40pyh) Substance Use Type: Marijuana Advance Directives: No Advance Directives Information Provided: No service: No Current occupational status: unemployed Physical Exam Vital Signs: Vital Signs: Last Vital Signs Temp 98.3 F 04/21/25 18:52 Pulse 80 04/21/25 18:52 Resp 20 04/21/25 18:52 BP 145/89 H 04/21/25 18:52 Pulse Ox 93 04/21/25 18:52 O2 Del Method Room Air 04/21/25 18:52 BMI result Body Mass Index 22.4 Const: General: cooperative, healthy appearing, comfortable, no acute distress and well developed Orientation/consciousness: patient oriented x3 HEENT: Head: Yes normal to inspection, Yes No palpable skull fracture present, Yes normocephalic and Yes atraumatic Eyes: General: appearance normal, both eyes and all related structures Neck: Neck: Yes normal visual inspection, Yes full ROM, Yes no lymphadenopathy, Yes no meningeal signs, Yes trachea midline, Yes supple, No anterior neck swelling and No tender Chest: Chest palpation & inspection: normal inspection of the chest and normal palpation of entire chest wall Resp: Effort & Inspection: normal respiratory effort and able to speak in complete sentences Auscultation: clear to auscultation bilaterally Cardio: Jugular venous distension: no JVD Heart sounds: S1 normal heart sound present and S2 normal heart sound present GI: Inspection: Yes normal to inspection Palpation (GI): Soft to palpation, not firm, nontender, no guarding and not rigid : General: Yes no CVA tenderness Back/Spine/Pelvis: Back: no CVA tenderness and No back tenderness Skin: General skin exam: no rashes or lesions noted, elasticity normal and turgor normal Neuro: General: patient oriented x3, gait normal, tone normal, moves all extremities, Normal light touch and pain sensation, no meningeal signs, no focal motor deficits and CN's II-XI intact bilaterally Extrem: General: Yes normal to inspection, Yes full ROM and Yes capillary refill normal Shoulder/upper arm images:  1. positive for tenderness on palpation. negative for swelling, ecchymosis, redness, deformities, crepitus, hotness, or coldness. rest of extremity is normal. motor, neuro, and vascular exam is intact. Psych: Appearance: grossly normal, well kempt and not disheveled Course Course Course Narrative: RME: 59 year male presents to ED for chronic right shoulder pain exacerbation. Patient is due for surgery next month. Patient states no new trauma, swelling, bluish black discoloration, or redness. MRI shows supraspinatus tendon tear biceps tenosynovitis without tear, and sucraspinatus. Patient is hypotensive most likely due to pain although history of high blood pressure we will repeat. Pain management Medications Administered Discontinued Medications Generic Name Dose Route Start Last Admin Trade Name Freq PRN Reason Stop Dose Admin Hydromorphone HCl 0.5 mg 04/21/25 17:40 04/21/25 17:58 Hydromorphone Hcl 0.5 Mg/0.5 Ml Syringe IM 04/21/25 17:41 0.5 mg ONCE ONE Administration Protocol Prednisone 60 mg 04/21/25 17:40 04/21/25 17:58 Prednisone 20 Mg Tablet PO 04/21/25 17:41 60 mg ONCE ONE Administration Medical Decision Making Medical Decision Making [facility] Narrative: 59-year-old male presents to ED for shoulder pain exacerbation. Patient has history of shoulder supraspinatus supraspinatus tear and biceps tenosynovitis as per MRI. Patient is scheduled for surgery next month. Patient denies any new trauma, swelling bluish black discoloration. Patient requesting pain medication. Not suspecting DVT, arterial occlusion, compartment syndrome, fracture, dislocation, or any other life-threatening etiology. Differential Diagnosis Differential Diagnoses: The differential diagnosis associated with the presentation includes (shoulder pain) Admission/Observation Consideration of admission/observation: Escalation of care including admission/observation considered Independent Historian Clinical information obtained from an independent historian. History obtained from or confirmed by: Other (patient) Prescription Management I considered prescription management with: Pain Medication Discharge Plan Discharge Clinical Impression: Shoulder pain, Supraspinatus tendon tear, Biceps tendonitis, Infraspinatus tendon tear Patient Disposition: Home, Self-Care Instructions: Rotator Cuff Injury (ED), Tendinitis (ED) Additional Instructions: Recommend calling your orthopedic surgeon for earlier appointment and re-evaluation. Return to the ED immediately for any worsening pain, swelling, bluish black discoloration, redness, chest pain, shortness of breath, or any other concerning symptoms. Continue taking you're oxycodone prescription for pain. Prescriptions: New prednisone 20 mg tablet 40 mg PO DAILY 5 Days Qty: 10 0RF No Action dicyclomine 20 mg tablet 20 mg PO QID Qty: 360 2RF multivitamin [Daily-Petra] Tablet 1 tab PO DAILY albuterol sulfate 2.5 mg /3 mL (0.083 %) solution for nebulization 1 vial inhalation QID alprazolam 1 mg tablet 1 mg PO BID PRN (Reason: Anxiety) lisinopril 5 mg tablet 10 mg PO BID sumatriptan succinate 100 mg tablet See Rx Instructions .ROUTE .COMPLEX Qty: 30 0RF Rx Instructions: take 1 tab at onset of headache; if no relief, may repeat 1 tab after at least 2 hrs; max = 2 tabs/24 hrs oxycodone 15 mg tablet 15 mg PO Q6H cholecalciferol (vitamin D3) 50 mcg (2,000 unit) capsule 50 mcg PO DAILY Flovent HFA 220 mcg/actuation HFA aerosol inhaler 1 puff inhalation BID fluoxetine 20 mg capsule 20 mg PO DAILY divalproex 500 mg tablet,delayed release (DR/EC) 1,000 mg PO BID magnesium oxide 400 mg (241.3 mg magnesium) tablet 400 mg PO DAILY escitalopram oxalate 20 mg tablet 20 mg PO QAM tamsulosin 0.4 mg capsule 0.4 mg PO DAILY 30 Days Qty: 30 3RF (DME) nebulizers Misc See Rx Instructions .Route Rx Instructions: As directed Trelegy Ellipta 200-62.5-25 mcg blister with device 1 inh inhalation DAILY 30 Days Qty: 60 12RF Combivent Respimat 20-100 mcg/actuation mist 1 puff inhalation QID 30 Days Qty: 4 11RF olmesartan 20 mg tablet 20 mg PO DAILY hydroxyzine HCl 10 mg tablet 10 mg PO BID atorvastatin 40 mg tablet 40 mg PO DAILY cyanocobalamin (vitamin B-12) 1,000 mcg tablet 1,000 mcg PO DAILY Nurtec ODT 75 mg tablet,disintegrating 75 mg PO DAILY PRN clopidogrel 75 mg tablet 75 mg PO DAILY loratadine 10 mg tablet 10 mg PO DAILY diclofenac sodium 1 % gel 4 g topical QID PRN (Reason: pain (scale score 4-6)) Qty: 100 3RF Rx Instructions: apply to right shoulder area as needed for pain dexlansoprazole 60 mg capsule,biphase delayed releas 60 mg PO DAILY Qty: 90 1RF famotidine 40 mg tablet 40 mg PO BEDTIME Qty: 90 2RF ondansetron HCl 4 mg tablet 4 mg PO BID PRN (Reason: for nausea/vomiting) Qty: 60 3RF azithromycin 500 mg tablet 500 mg PO DAILY 5 Days Qty: 5 0RF guaifenesin 1,200 mg tablet extended release 12hr 1,200 mg PO BID 14 Days Qty: 28 0RF cyclobenzaprine 5 mg tablet 5 mg PO TID PRN (Reason: muscle spasm) Qty: 90 1RF ipratropium-albuterol 0.5 mg-3 mg(2.5 mg base)/3 mL solution for nebulization 3 ml inhalation BID 30 Days Qty: 180 11RF budesonide 0.5 mg/2 mL suspension for nebulization 0.5 mg inhalation BID 30 Days Qty: 120 11RF Stand Alone Forms: Work/School Release Interventions: ED Discharge Assessment Last Done: 04/21/25 18:52 Discharge Date/Time: 04/21/25 18:53 Print Language: Mohawk
[2025-04-21 18:32] VITALS: BP 145/89; PULSE 80; RESP 20; TEMP 36.8; O2SAT 93
[2025-04-21 18:52] VITALS: BP 145/89; PULSE 80; RESP 20; TEMP 36.8; O2SAT 93
== END 2025-04-21 18:53 | disposition home or self-care (01) ==
PROVIDERS: Emergency Provider Emergency Medicine; PCP General Practice
DX: M25.511 Pain in right shoulder (principal); F17.210 Nicotine dependence, cigarettes, uncomplicated; Z79.899 Other long term (current) drug therapy
CPT/HCPCS: 96372; 99212; 99283; 99284; J1171

== ENCOUNTER 2025-05-09 08:59 | Outpatient (AMB) | payer OTHER, SELFPAY ==
--- NOTE | 2025-05-09 09:01 | A.OFFVIS_ITS ---
Vital Signs 05/09/25 09:02 Height 5 ft 4 in Weight 178 lb 9.191 oz BMI 30.6 BP 180/80 H Blood Pressure Location Lt brachial Position Sitting Pulse 89 Pulse Source Monitor Intake Visit Reasons: JV gr shoulder rotator cuff repair Allergies cat dander (CATS) Allergy (Unknown, Verified 04/21/25 17:03) UNKNOWN dog dander (DOGS) Allergy (Unknown, Verified 04/21/25 17:03) UNKNOWN pollen extracts (POLLEN) Allergy (Unknown, Verified 04/21/25 17:03) UNKNOWN tree and shrub pollen Allergy (Verified 04/21/25 17:03) sneeze ibuprofen Adverse Reaction (Verified 04/21/25 17:03) causes stomach to bleed Medication List - Last Reconciled 05/09/25 by Rayshawn Shaw MD alprazolam 1 mg PO TID budesonide 0.5 mg (2 mL) inhalation BID 30 days cholecalciferol (vitamin D3) 50 mcg PO DAILY clopidogrel 75 mg PO DAILY cyanocobalamin (vitamin B-12) 1,000 mcg PO DAILY cyclobenzaprine 5 mg PO TID PRN dicyclomine 20 mg PO QID famotidine 40 mg PO BEDTIME aqavqrexdbr-yqvttcaev-amwqymdi 200-62.5-25 mcg (Trelegy Ellipta) 1 inh inhalation DAILY 30 days ipratropium-albuterol 0.5 mg-3 mg(2.5 mg base)/3 mL 3 mL inhalation BID 30 days ipratropium-albuterol 20-100 mcg/actuation (Combivent Respimat) 1 puff inhalation QID 30 days nebulizers As directed ondansetron HCl 4 mg PO BID PRN oxycodone 15 mg PO Q6H sumatriptan succinate take 1 tab at onset of headache; if no relief, may repeat 1 tab after at least 2 hrs; max = 2 tabs/24 hrs tamsulosin 0.4 mg PO DAILY 30 days HPI Comments Details: Zain is here for consultation regarding preoperative stratification for shoulder repair. In the past, he has been seen regarding random chest pains. He underwent a coronary CTA, but no significant findings. Chronic smoker. On polypharmacy and does not appear that he is really compliant. He states he has not been taking any blood pressure medications. Otherwise, no new complaints. He does not really have any exertional angina or anything cardiac sounding. [facility] Medical History Ganglion cyst Chest pain Nicotine dependence, cigarettes, uncomplicated Nausea and vomiting Dyspnea Photophobia Headache Syncope Dysphagia Seizure Lipoma of back STEPHON (obstructive sleep apnea) COPD (chronic obstructive pulmonary disease) Post herpetic neuralgia Multiple lipomas Osteoarthritis Gout History of peptic ulcer disease Hx of irritable bowel syndrome Chronic back pain Hx of insomnia History of panic attacks History of anxiety History of depression Asthma High cholesterol Hypertension Urinary retention Enlarged prostate Arthritis Slow urinary stream Marijuana use Alcohol abuse H/O ulcer disease Left flank pain Trochanteric bursitis, left hip Epidermal cyst Abdominal wall bulge Esophageal dysphagia Esophageal spasm Short frenulum of penis Balanitis Elevated blood pressure reading in office with diagnosis of hypertension Thalamic pain syndrome Abnormal loss of weight Painful orthopaedic hardware Pain in unspecified toe(s) Incisional pain Surgical History S/P placement of nerve stimulator H/O neck surgery Hx of arthroscopy of left knee H/O breast surgery S/P excision of lipoma History of bunionectomy History of cystoscopy History of colonoscopy History of esophagogastroduodenoscopy (EGD) Family History Family/Other Cancer Diabetes AIDS Brother Diabetes Myocardial infarction Father Enlarged prostate Mother Diabetes Asthma Social History Are you a primary palliative care nurse to a significant other at home: No Do you presently have visiting nurse or other home services: No Alcohol intake: never Patient Tobacco Use Status: Current everyday Tobacco user Cigarettes Per Day: 4 Years Smoked: (onset 16yo, 1ppd x 42yrs, now 1/2ppd - 40pyh) Substance Use Type: Marijuana service: No Current occupational status: unemployed Review of Systems Const Denies weakness ENT Denies dizziness Card Denies chest pain, Denies chest pain with activity, Denies syncope, Denies rapid heart rate, Denies pedal edema, Denies edema, Denies leg edema, Denies lightheadedness, Denies palpitations, Denies dyspnea, Denies dyspnea on exertion and Denies orthopnea Resp Denies cough, Denies dyspnea and Denies dyspnea on exertion GI Denies hematochezia and Denies change in stool character Musc Denies abnormal gait, Reports myalgias, Denies muscle cramps, Denies muscle weakness, Denies numbness, Denies radiating pain into limb and Denies tingling Neuro Denies abnormal gait, Denies dizziness, Denies syncope, Denies numbness, Denies tingling and Denies weakness Endo Denies palpitations Physical Exam Vital Signs: Last Vital Signs Pulse 89 05/09/25 09:02 BP 180/80 H 05/09/25 09:02 BMI result Body Mass Index 30.6 Office Procedures EKG Details: EKG with underlying sinus rhythm at 89/Min; some nonspecific ST-T changes but otherwise unremarkable; [place] ND/[place]. [id number], Complete Assessment & Plan Assessment & Plan (1) Preoperative cardiovascular examination: Code(s): Z01.810 - Encounter for preprocedural cardiovascular examination Category: Medical (2) Primary hypertension: Code(s): I10 - Essential (primary) hypertension Category: Medical Plan Cardiac data reviewed. EKG without any ischemic findings. Coronary CTA 2022-no significant stenosis. 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 Minimal stenosis in the mid circumflex. Mild stenosis in the left PDA. Available high sensitivity troponin levels are within normal range. With regard to the blood pressure, it seems high but he is not taking any medications either. In the past, med list has Lisinopril. We can try amlodipine instead. Advised him to started without delay. As long as blood pressure is reasonable, may proceed the shoulder surgery. Any perioperative blood pressure issues will need to be managed accordingly. Intermediate cardiac risk. Total time spent including review of data, counseling, documentation, coordination of care-32 min. Medications: New amlodipine 5 mg PO DAILY 90 tabs 1RF Coding Level of Care Code Est Pt Level 4 (96275) Complex EM visit Add On G2211 Diagnoses Preoperative cardiovascular examination Z01.810 Primary hypertension I10 CPT Codes EKG - CPT: 99790-[id number], Complete ([id number])
[2025-05-09 09:02] VITALS: BP 180/80; PULSE 89; BMI 30.6
--- OUTSIDE RECORDS SUMMARY | 2025-05-09 09:44 | XMS_ITS | Encounter Summary ---
Author Organization [employer] Address 75 [facility] 7 [place] [address] Care Team Providers Care Attic Blower Name Role Phone Amy Pickett MD Primary Care Pro vider Reason for Visit * Reason Onset Date Comments Results 10/01/2024 Encounter Details Date Type Department Care Team ([facility] st Contact Info) Description 10/01/2024 Telephone [facility] MED[facility]INE [address] [place], [place] [phone] Amy Pickett MD 230 [place] [address] Results Social History Tobacco Use Types Packs/Day [...] Blood Test Date when done: 09/29/24 Facility: [facility] Contact pt at [phone] documented in this encounter Plan of Treatment Upcoming Encounters Date Type Department Care Team (Late st Contact Info) Description 05/31/2025 11:00 AM EST Office Visit [facility] [address] [place] [address] 06/10/2025 1:45 PM EST Office Visit [facility] [address] [place] [phone] Annmarie Ellington MD [address] [place] [address] documented as of this encounter Visit Diagnoses Not on filedocumented in this encounter Additional Health Concerns Assessment Noted Time PHQ-9 Depression Total Score: 10 024 9:41 AM EDT documented as of this encounter Care Teams Attic Blower Relationship Specialty Start Date End Date Amy Pickett MD [address] [place] [address] PCP - General Internal Medicine 04/07/23 documented as of this encounter
--- OUTSIDE RECORDS SUMMARY | 2025-05-09 09:44 | XMS_ITS | Encounter Summary ---
Author Organization [employer] Address 75 [facility] 7t [place] [address] Care Team Providers Care Electric System Operator Name Role Phone Amy Pickett MD Primary Care Pro vider Encounter Details Date Type Department Care Team ([facility] st Contact Info) Description 09/01/2024 Telephone [facility] 230 [place], [place] [phone] Amy Pickett MD 230 [place], [place] [phone] Social History Tobacco Use Types Packs/Day Years [...] Description 05/31/2025 11:00 AM EST Office Visit [facility] [address] [place] [address] 06/10/2025 1:45 PM EST Office Visit [address] [address] Annmarie Ellington MD [address] [place] [address] documented as of this encounter Visit Diagnoses Not on filedocumented in this encounter Additional Health Concerns Assessment Noted Time PHQ-9 Depression Total Score: 10 024 9:41 AM EDT documented as of this encounter Care Teams Electric System Operator Relationship Specialty Start Date End Date Amy Pickett MD [address] [place] [address] PCP - General Internal Medicine 04/07/23 documented as of this encounter
--- OUTSIDE RECORDS SUMMARY | 2025-05-09 09:44 | XMS_ITS | Encounter Summary ---
Author Organization [employer] Address [address] [place] [address] 7 [place] [address] Care Team Providers Care Hand Mixer Name Role Phone Amy Pickett MD Primary Care Pro vider Reason for Visit * Reason Onset Date Comments Med Refill 04/09/2024 Encounter Details Date Type Department Care Team (Late st Contact Info) Description 04/09/2024 Telephone [facility] MEDICINE 230 [place], [place] [phone] Amy Pickett MD 230 [place], [place] [phone] Med Refill Social History Tobacco Use Types [...] to: [facility]/pharmacy #[id number] documented in this encounter Plan of Treatment Upcoming Encounters Date Type Department Care Team (Late st Contact Info) Description 05/31/2025 11:00 AM EST Office Visit [facility] [address] [place] [address] 06/10/2025 1:45 PM EST Office Visit [facility] [address] [place] [address] Annmarie Ellington MD [address] [place] [address] documented as of this encounter Visit Diagnoses Not on filedocumented in this encounter Additional Health Concerns Assessment Noted Time PHQ-9 Depression Total Score: 10 024 9:41 AM EDT documented as of this encounter Care Teams Hand Mixer Relationship Specialty Start Date End Date Amy Pickett MD [address] [place] [address] PCP - General Internal Medicine 04/07/23 documented as of this encounter
--- OUTSIDE RECORDS SUMMARY | 2025-05-09 09:44 | XMS_ITS | Clinical Summary ---
Author Organization [facility] Facility Address [address] [place] [address] Care Team Providers Care Shear Setter Name Role Phone Donna Harmon MD Primary [...] Influenza Vaccine (#1) 2025 Insurance [facility] [place] [id number] Care Teams Shear Setter Relationship Specialty Start Date End Date Donna Harmon MD PCP - General 05/11/19
--- OUTSIDE RECORDS SUMMARY | 2025-05-09 09:44 | XMS_ITS | Encounter Summary ---
Author Organization [employer] Address 75 [facility] 7t [place] [address] Care Team Providers Care Rigger Chief Name Role Phone Amy Pickett MD Primary Care Pro vider Encounter Details Date Type Department Care Team ([facility] st Contact Info) Description 09/01/2024 Telephone [facility] MEDICINE 230 [place], [place] [phone] Amy Pickett MD [address] [place], [place] [phone] Social History Tobacco Use Types Packs/Day Years [...] 05/31/2025 11:00 AM EST Office Visit [facility] MEDICINE [address] [place] [address] 06/10/2025 1:45 PM EST Office Visit [address] [address] Annmarie Ellington MD [address] [place] [address] documented as of this encounter Visit Diagnoses Not on filedocumented in this encounter Additional Health Concerns Assessment Noted Time PHQ-9 Depression Total Score: 10 024 9:41 AM EDT documented as of this encounter Care Teams Rigger Chief Relationship Specialty Start Date End Date Amy Pickett MD [address] [place] [address] PCP - General Internal Medicine 04/07/23 documented as of this encounter
--- OUTSIDE RECORDS SUMMARY | 2025-05-09 09:44 | XMS_ITS | Encounter Summary ---
Author Organization [employer] Address [address] [place] [address] 7 [place] [address] Care Team Providers Care Director Digital Name Role Phone Amy Pickett MD Primary Care Pro vider Reason for Visit * Reason Onset Date Comments Med Refill 05/13/2024 Encounter Details Date Type Department Care Team ([facility] st Contact Info) Description 05/13/2024 Telephone [facility] MEDICINE 230 [place], [place] [phone] Amy Pickett MD 230 [place], [place] [phone] Med Refill Social History Tobacco Use Types [...] immediate release tablet To be sent to: [facility]/pharmacy #[id number] documented in this encounter Plan of Treatment Upcoming Encounters Date Type Department Care Team (Late st Contact Info) Description 05/31/2025 11:00 AM EST Office Visit [facility] MEDICINE [address] [place] [address] 06/10/2025 1:45 PM EST Office Visit [facility] MED[facility]INE [address] [place] [address] Annmarie Ellington MD [address] [place] [address] documented as of this encounter Visit Diagnoses Not on filedocumented in this encounter Additional Health Concerns Assessment Noted Time PHQ-9 Depression Total Score: 10 024 9:41 AM EDT documented as of this encounter Care Teams Director Digital Relationship Specialty Start Date End Date Amy Pickett MD [address] [place] [address] PCP - General Internal Medicine 04/07/23 documented as of this encounter
--- OUTSIDE RECORDS SUMMARY | 2025-05-09 09:44 | XMS_ITS | Clinical Summary ---
Author Organization [facility] Address [address] [place] [address] Care Team Providers Care Cooperative Manager Name Role Phone Ba Maria MD Primary Care Provider Surgical History Surgery Date Site/Laterality Comments FOOT SURGERY PROCEDURE: AL UNLISTED PROCEDURE FOOT/TOES; COMMENT: left foot bunion removal LIPOMA RESECTION PROCEDURE: SKIN TISSUE EXCISION(LIPOMA) OTHER SURGICAL HISTORY PROCEDURE: ---- OTHER ----; COMMENT: urethral surgeries done? three times in [facility] for difficulty urinating Medical History Medical History Date Comments Chronic back pain DX:Chronic alonso k pain Asthma DX:Asthma Anxiety DX:Anxiety; COMM ENT: follows at [facility] psychiatry Family History Medical History [...] age to complete this topic Care Teams Cooperative Manager Relationship Specialty Start Date End Date Ba Maria MD PCP - General Internal Medicine 10/26/12
--- OUTSIDE RECORDS SUMMARY | 2025-05-09 09:44 | XMS_ITS | Encounter Summary ---
Author Organization [employer] Address [address] [place] [address] 7 [place] [address] Care Team Providers Care Certification Engineer Name Role Phone Amy Pickett MD Primary Care Pro vider Reason for Visit * Reason Onset Date Comments Appointment Request 10/05/2024 Encounter Details Date Type Department Care Team ([facility] st Contact Info) Description 10/05/2024 Telephone [facility]INE [address] [place], [place] [phone] Amy Pickett MD 230 [place] [address] Appointment Request Social History Tobacco Use Types [...] able to make it. Contact Isa at [phone] documented in this encounter Plan of Treatment Upcoming Encounters Date Type Department Care Team (Late st Contact Info) Description 05/31/2025 11:00 AM EST Office Visit [facility] [address] [place] [address] 06/10/2025 1:45 PM EST Office Visit [facility] [address] [place] [address] Annmarie Ellington MD 230 [place] [address] documented as of this encounter Visit Diagnoses Not on filedocumented in this encounter Additional Health Concerns Assessment Noted Time PHQ-9 Depression Total Score: 10 024 9:41 AM EDT documented as of this encounter Care Teams Certification Engineer Relationship Specialty Start Date End Date Amy Pickett MD [address] [place] [address] PCP - General Internal Medicine 04/07/23 documented as of this encounter
--- OUTSIDE RECORDS SUMMARY | 2025-05-09 09:44 | XMS_ITS | Encounter Summary ---
Author Organization [employer] Address 75 [facility] 7t [place] [address] Care Team Providers Care Robotic Weld Technician Name Role Phone Elise Glover THEATRICAL AGENT Primary Care Provider Amy Ware MD Primary Care Pro vider Reason for Visit * Reason Comments Med Change Request Encounter Details Date Type Department Care Team (Late st Contact Info) Description 03/03/2023 Refill [facility] [address] [place] [address] Elise Glover FNP Essential hypertension Social History [...] 05/31/2025 11:00 AM EST Office Visit [facility] MEDICINE [address] [place] [address] 06/10/2025 1:45 PM EST Office Visit [facility] MEDICINE 230 [place], [place] [phone] Annmarie Ellington MD [address] [place] [address] documented as of this encounter Visit Diagnoses Diagnosis Essential hypertension Unspecified essential hypertension documented in this encounter Additional Health Concerns Assessment Noted Time PHQ-9 Depression Total Score: 24 10/01/ 023 10:05 AM EDT documented as of this encounter Care Teams Robotic Weld Technician Relationship Specialty Start Date End Date Elise Glover FNP PCP - General Family Medicine 07/09/22 04/06/23 Amy Pickett MD 230 [place] [address] PCP - General Internal Medicine 04/07/23 documented as of this encounter
--- OUTSIDE RECORDS SUMMARY | 2025-05-09 09:44 | XMS_ITS | Encounter Summary ---
Author Organization [employer] Address 75 [facility] 7t [place] [address] Care Team Providers Care Surface Water Manager Name Role Phone Amy Pickett MD Primary Care Pro vider Encounter Details Date Type Department Care Team ([facility] st Contact Info) Description 10/01/2024 Orders Only [facility] [address] [place], [place] [phone] Za Preston MD [address] [place] [address] Social History Tobacco Use Types Packs/Day Years [...] Description 05/31/2025 11:00 AM EST Office Visit [facility] MEDICINE [address] [place] [address] 06/10/2025 1:45 PM EST Office Visit [address] [address] Annmarie Ellington MD [address] [place] [address] documented as of this encounter Visit Diagnoses Not on filedocumented in this encounter Additional Health Concerns Assessment Noted Time PHQ-9 Depression Total Score: 10 024 9:41 AM EDT documented as of this encounter Care Teams Surface Water Manager Relationship Specialty Start Date End Date Amy Pickett MD [address] [place] [address] PCP - General Internal Medicine 04/07/23 documented as of this encounter
--- OUTSIDE RECORDS SUMMARY | 2025-05-09 09:45 | XMS_ITS | Encounter Summary ---
Author Organization [employer] Address 75 [facility] 7 [place] [address] Care Team Providers Care Maintenance And Operations Supervisor Name Role Phone Amy Pickett MD Primary Care Pro vider Reason for Visit * Reason Onset Date Comments FYI 03/16/2025 Encounter Details Date Type Department Care Team ([facility] st Contact Info) Description 03/16/2025 Telephone [facility] MEDICINE 230 [place], [place] [phone] Amy Pickett MD 230 [place] [address] FYI Social History Tobacco Use Types Packs/Day [...] who reports pt currently having surgery at [facility] through [facility] to get SNS device removed so that he can have MRI done as he couldn't have MRI with the implant and he has excruciating 10/10 shoulder pain and can't lift his arm. Advised to call [facility] centralized scheduling to r/s MRI now that implant is being removed. Texted her their phone number via [employer] text at her request. She reports that [...] group appt be changed to a normal BOXING PROMOTER appt. Seeing as though he is having [...] anything out of it. Would rather do BOXING PROMOTER visits. Informed I would send message regarding this. * Telephone Encounter - Jesusita Castellanos - 03/16/2025 3:01 PM EDT Tc from [facility] stating specialist pritesh to give him an emergency surgery to get the implant out. So now pt is able to do MRI. documented in this encounter Plan of Treatment Upcoming Encounters Date Type Department Care Team (Late st Contact Info) Description 05/31/2025 11:00 AM EST Office Visit [address] [address] 06/10/2025 1:45 PM EST Office Visit [facility] MEDICINE [address] [place] [address] Annmarie Ellington MD [address] [place] [address] documented as of this encounter Visit Diagnoses Not on filedocumented in this encounter Additional Health Concerns Assessment Noted Time PHQ-9 Depression Total Score: 0 11/25/19 2:10 PM EDT documented as of this encounter Care Teams Maintenance And Operations Supervisor Relationship Specialty Start Date End Date Amy Pickett MD [address] [place] [address] PCP - General Internal Medicine 04/07/23 documented as of this encounter
--- OUTSIDE RECORDS SUMMARY | 2025-05-09 09:45 | XMS_ITS | Encounter Summary ---
Author Organization [employer] Address [address] [facility] 7 [place] [address] Care Team Providers Care Enterprise Sales Executive Name Role Phone Amy Pickett MD Primary Care Pro vider Reason for Visit * Reason Comments Med Refill Encounter Details Date Type Department Care Team ([facility] st Contact Info) Description 05/03/2025 Refill [facility] 230 [place], [place] [phone] Amy Pickett MD 230 [place] [address] Essential hypertension Social History Tobacco Use Types [...] Description 05/31/2025 11:00 AM EST Office Visit [facility] [address] [place] [address] 06/10/2025 1:45 PM EST Office Visit [facility] [address] [place] [address] Annmarie Ellington MD [address] [place] [address] documented as of this encounter Visit Diagnoses Diagnosis Essential hypertension Unspecified essential hypertension documented in this encounter Additional Health Concerns Assessment Noted Time PHQ-9 Depression Total Score: 0 11/25/19 25 2:10 PM EDT documented as of this encounter Care Teams Enterprise Sales Executive Relationship Specialty Start Date End Date Amy Pickett MD [address] [place] [address] PCP - General Internal Medicine 04/07/23 documented as of this encounter
--- OUTSIDE RECORDS SUMMARY | 2025-05-09 09:45 | XMS_ITS | Encounter Summary ---
Author Organization [employer] Address [address] [facility] 7 [place] [address] Care Team Providers Care Rails Developer Name Role Phone Amy Pickett MD Primary Care Pro vider Reason for Visit * Reason Comments Med Refill Encounter Details Date Type Department Care Team ([facility] st Contact Info) Description 06/17/2024 [facility] 230 [place], [place] [phone] Amy Pickett MD 230 [place] [address] Social History Tobacco Use Types Packs/Day Years [...] Description 05/31/2025 11:00 AM EST Office Visit [address] [address] 06/10/2025 1:45 PM EST Office Visit [address] [address] Annmarie Ellington MD [address] [place] [address] documented as of this encounter Visit Diagnoses Not on filedocumented in this encounter Additional Health Concerns Assessment Noted Time PHQ-9 Depression Total Score: 10 024 9:41 AM EDT documented as of this encounter Care Teams Rails Developer Relationship Specialty Start Date End Date Amy Pickett MD [address] [place] [address] PCP - General Internal Medicine 04/07/23 documented as of this encounter
--- OUTSIDE RECORDS SUMMARY | 2025-05-09 09:45 | XMS_ITS | Encounter Summary ---
Author Organization [employer] Address [address] [facility] 7t [place] [address] Care Team Providers Care Environmental Change Analyst Name Role Phone Amy Pickett MD Primary Care Pro vider Encounter Details Date Type Department Care Team ([facility] st Contact Info) Description 05/05/2025 Orders Only [facility] [address] [place] [address] [phone] Amy Pickett MD 230 [place] [address] Social History Tobacco Use Types Packs/Day Years [...] Description 05/31/2025 11:00 AM EST Office Visit [facility] [address] [place] [address] 06/10/2025 1:45 PM EST Office Visit [address] [address] Annmarie Ellnigton MD [address] [place] [address] documented as of this encounter Visit Diagnoses Not on filedocumented in this encounter Additional Health Concerns Assessment Noted Time PHQ-9 Depression Total Score: 0 11/25/19 25 2:10 PM EDT documented as of this encounter Care Teams Environmental Change Analyst Relationship Specialty Start Date End Date Amy Pickett MD [address] [place] [address] PCP - General Internal Medicine 04/07/23 documented as of this encounter
--- OUTSIDE RECORDS SUMMARY | 2025-05-09 09:45 | XMS_ITS | Encounter Summary ---
Author Organization [employer] Address [address] [place] [address] 7 [place] [address] Care Team Providers Care Brass Instrument Repair Technician Name Role Phone Amy Pickett MD Primary Care Pro vider Reason for Visit * Reason Onset Date Comments Med Refill 08/06/2024 Encounter Details Date Type Department Care Team ([facility] st Contact Info) Description 08/06/2024 Telephone [facility] 230 [place], [place] [phone] Amy Pickett MD 230 [place], [place] [phone] Med Refill Social History Tobacco Use Types [...] 0.083% nebulizer solution To be sent to: [facility]/pharmacy #1972 - [address] documented in this encounter Plan of Treatment Upcoming Encounters Date Type Department Care Team (Late st Contact Info) Description 05/31/2025 11:00 AM EST Office Visit [facility] [address] [place] [address] 06/10/2025 1:45 PM EST Office Visit [facility] 230 [place] [address] Annmarie Ellington MD 230 [place], [place] [phone] documented as of this encounter Visit Diagnoses Not on filedocumented in this encounter Additional Health Concerns Assessment Noted Time PHQ-9 Depression Total Score: 10 024 9:41 AM EDT documented as of this encounter Care Teams Brass Instrument Repair Technician Relationship Specialty Start Date End Date Amy Pickett MD 230 [place] [address] PCP - General Internal Medicine 04/07/23 documented as of this encounter
--- OUTSIDE RECORDS SUMMARY | 2025-05-09 09:45 | XMS_ITS | Encounter Summary ---
Author Organization [employer] Address [address] [place] [address] 7 [place] [address] Care Team Providers Care Transportation Museum Helper Name Role Phone Elise Glover CHECK SCALER Primary Care Provider Amy Ware MD Primary Care Pro vider Reason for Visit * Reason Onset Date Comments triage 08/22/2022 Encounter Details Date Type Department Care Team (Late st Contact Info) Description 08/22/2022 Telephone [facility] [address] [place] [address] Elise Glover CHECK SCALER triage Social History Tobacco Use Types Packs/Day [...] 11:00 AM EST Office Visit [facility] 230 [place], [place] [phone] 06/10/2025 1:45 PM EST Office Visit [facility] 230 [place] [address] Annmarie Ellington MD 230 [place], [place] [phone] documented as of this encounter Visit Diagnoses Not on filedocumented in this encounter Care Teams Transportation Museum Helper Relationship Specialty Start Date End Date Elise Glover FNP PCP - General Family Medicine 07/09/22 04/06/23 Amy Pickett MD 230 [place], [place] [phone] PCP - General Internal Medicine 04/07/23 documented as of this encounter
--- OUTSIDE RECORDS SUMMARY | 2025-05-09 09:45 | XMS_ITS | Encounter Summary ---
Author Organization [employer] Address [address] [facility] 7 [place] [address] Care Team Providers Care Maintenance Craftsman Name Role Phone Amy Pickett MD Primary Care Pro vider Reason for Visit * Reason Onset Date Comments Nurse Triage 03/17/2025 Encounter Details Date Type Department Care Team ([facility] st Contact Info) Description 03/17/2025 Telephone [facility] 230 [place], [place] [phone] Amy Pickett MD 230 [place] [address] Nurse Triage Social History Tobacco Use Types [...] to Zain Lazcano to triage below at [phone]. Pt states having a procedure done to [...] Is currently on the phone with a inspecting supervisor [facility]. She states that pt. 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 Pt. Luz Marina states that PCP will not give pt. Additional pain medication because pt. Is alreadyon Oxycodone. I advised that I will write this down as pt. Is currently speaking with a Opera Singer. * Telephone Encounter - James Diana - 03/17/2025 4:02 PM EDT Symptom: Shoulder Pain - Not From Injury Outcome: Schedule an urgent appointment (within 1 hour) or talk to a nurse or provider soon Reason: Severe pain now The caller accepted this outcome. Contact pt at [phone] Pt was requesting for tramadol for his shoulder pain. Pt was already advised that he cannot take tramadol and Oxycodone at the same time. documented in this encounter Plan of Treatment Upcoming Encounters Date Type Department Care Team (Late st Contact Info) Description 05/31/2025 11:00 AM EST Office Visit [facility] [address] [place] [address] 06/10/2025 1:45 PM EST Office Visit [facility] [address] [place] [address] Annmarie Ellington MD 230 [place] [address] documented as of this encounter Visit Diagnoses Not on filedocumented in this encounter Additional Health Concerns Assessment Noted Time PHQ-9 Depression Total Score: 0 11/25/19 25 2:10 PM EDT documented as of this encounter Care Teams Maintenance Craftsman Relationship Specialty Start Date End Date Amy Pickett MD [address] [place] [address] PCP - General Internal Medicine 04/07/23 documented as of this encounter
--- OUTSIDE RECORDS SUMMARY | 2025-05-09 09:45 | XMS_ITS | Encounter Summary ---
Author Organization [employer] Address [address] [place] [address] 7 [place] [address] Care Team Providers Care Ice Plant Operator Name Role Phone Amy Pickett MD Primary Care Pro vider Reason for Visit * Reason Onset Date Comments Med Refill 10/27/2024 Encounter Details Date Type Department Care Team ([facility] st Contact Info) Description 10/27/2024 Telephone [facility] 230 [place], [place] [phone] Amy Pickett MD 230 [place], [place] [phone] Med Refill Social History Tobacco Use Types [...] sent to: [facility]/pharmacy #[address] documented in this encounter Plan of Treatment Upcoming Encounters Date Type Department Care Team (Late st Contact Info) Description 05/31/2025 11:00 AM EST Office Visit [facility] [address] [place] [address] 06/10/2025 1:45 PM EST Office Visit [facility] [address] [place] [address] Annmarie Ellington MD 230 [place] [address] documented as of this encounter Visit Diagnoses Not on filedocumented in this encounter Additional Health Concerns Assessment Noted Time PHQ-9 Depression Total Score: 10 024 9:41 AM EDT documented as of this encounter Care Teams Ice Plant Operator Relationship Specialty Start Date End Date Amy Pickett MD [address] [place] [address] PCP - General Internal Medicine 04/07/23 documented as of this encounter
--- OUTSIDE RECORDS SUMMARY | 2025-05-09 09:45 | XMS_ITS | Encounter Summary ---
Author Organization [employer] Address [address] [place] [address] 7 [place] [address] Care Team Providers Care Slab Conditioner Supervisor Name Role Phone Amy Pickett MD Primary Care Pro vider Reason for Visit * Reason Onset Date Comments Med Refill 03/24/2025 Encounter Details Date Type Department Care Team (Late st Contact Info) Description 03/24/2025 Telephone [facility] 230 [place], [place] [phone] Amy Pickett MD 230 [place], [place] [phone] Med Refill Social History Tobacco Use Types [...] be sent to: [facility]/pharmacy #[address] documented in this encounter Plan of Treatment Upcoming Encounters Date Type Department Care Team (Late st Contact Info) Description 05/31/2025 11:00 AM EST Office Visit [facility] [address] [place] [address] 06/10/2025 1:45 PM EST Office Visit [facility] [address] [place] [address] Annmarie Ellington MD [address] [place] [address] documented as of this encounter Visit Diagnoses Not on filedocumented in this encounter Additional Health Concerns Assessment Noted Time PHQ-9 Depression Total Score: 0 11/25/19 25 2:10 PM EDT documented as of this encounter Care Teams Slab Conditioner Supervisor Relationship Specialty Start Date End Date Amy Pickett MD [address] [place] [address] PCP - General Internal Medicine 04/07/23 documented as of this encounter
--- OUTSIDE RECORDS SUMMARY | 2025-05-09 09:45 | XMS_ITS | Encounter Summary ---
Author Organization [employer] Address [address] [facility] 7 [place] [address] Care Team Providers Care Photo Retoucher Name Role Phone Amy Pickett MD Primary Care Pro vider Reason for Visit * Reason Onset Date Comments Appointment Request 09/02/2023 Encounter Details Date Type Department Care Team ([facility] st Contact Info) Description 09/02/2023 Telephone [facility] 230 [place], [place] [phone] Amy Pickett MD 230 [place] [address] Appointment Request Social History Tobacco Use Types [...] t he electric, gas, oil or water [employer] threatened to shut off services in your [...] from pt requesting a transfer patient appointment. Commercial Real Estate Agent does not see any availability. Pt states he needs appointment as soon as possible due to controlled medication. States needs to be seen bya new provider to continue medication. Please contact pt at [phone] documented in this encounter Plan of Treatment Upcoming Encounters Date Type Department Care Team (Late st Contact Info) Description 05/31/2025 11:00 AM EST Office Visit [facility] [address] [place] [address] 06/10/2025 1:45 PM EST Office Visit [address] [address] Annmarie Ellington MD [address] [place] [address] documented as of this encounter Visit Diagnoses Not on filedocumented in this encounter Additional Health Concerns Assessment Noted Time PHQ-9 Depression Total Score: 24 023 10:05 AM EDT documented as of this encounter Care Teams Photo Retoucher Relationship Specialty Start Date End Date Amy Pickett MD [address] [place] [address] PCP - General Internal Medicine 04/07/23 documented as of this encounter
--- OUTSIDE RECORDS SUMMARY | 2025-05-09 09:45 | XMS_ITS | Encounter Summary ---
Author Organization [employer] Address [address] [place] [address] 7t [place] [address] Care Team Providers Care Bad Cloth Checker Name Role Phone Elise Glover FLOOR SANDER Primary Care Provider Amy Ware MD Primary Care Pro vider Encounter Details Date Type Department Care Team (Late st Contact Info) Description 01/14/2023 Orders Only [facility] MEDICINE [address] [place] [phone] Elise Glover FNP Social History Tobacco Use [...] 05/31/2025 11:00 AM EST Office Visit [facility]INE [address] [place] [address] [phone] 06/10/2025 1:45 PM EST Office Visit [address] [phone] Annmarie Ellington MD [address] [place] [address] documented as of this encounter Visit Diagnoses Not on filedocumented in this encounter Additional Health Concerns Assessment Noted Time PHQ-9 Depression Total Score: 24 023 10:05 AM EDT documented as of this encounter Care Teams Bad Cloth Checker Relationship Specialty Start Date End Date Elise Glover FNP PCP - General Family Medicine 07/09/22 04/06/23 Amy Pickett MD 230 [place] [address] PCP - General Internal Medicine 04/07/23 documented as of this encounter
--- OUTSIDE RECORDS SUMMARY | 2025-05-09 09:45 | XMS_ITS | Encounter Summary ---
Author Organization [employer] Address [address] [facility] [address] 7t [place] [address] Care Team Providers Care Solution Make Up Operator Name Role Phone Amy Pickett MD Primary Care Pro vider Encounter Details Date Type Department Care Team (Late st Contact Info) Description 06/24/2024 Orders Only [facility] 230 [place] [address] Provider, MD Bryan Social History Tobacco Use [...] 11:00 AM EST Office Visit [facility] [address] [place] [address] 06/10/2025 1:45 PM EST Office Visit [address] [address] Annmarie Ellington MD [address] [place] [address] documented as of this encounter Procedures Procedure [...] as of this encounter Care Teams Solution Make Up Operator Relationship Specialty Start Date End Date Amy Pickett MD [address] [place] [address] PCP - General Internal Medicine 04/07/23 documented as of this encounter
--- OUTSIDE RECORDS SUMMARY | 2025-05-09 09:45 | XMS_ITS | Encounter Summary ---
Author Organization [employer] Address [address] [place] [address] 7 [place] [address] Care Team Providers Care Energy Economist Name Role Phone Amy Pickett MD Primary Care Pro vider Reason for Visit * Reason Onset Date Comments Med Refill 2024 Encounter Details Date Type Department Care Team ([facility] st Contact Info) Description 2024 Telephone [facility] 230 [place], [place] [phone] Amy Pickett MD 230 [place], [place] [phone] Med Refill Social History Tobacco Use Types [...] immediate release tablet To be sent to: [facility]/pharmacy #[id number] documented in this encounter Plan of Treatment Upcoming Encounters Date Type Department Care Team (Late st Contact Info) Description 05/31/2025 11:00 AM EST Office Visit [facility] [address] [place] [address] 06/10/2025 1:45 PM EST Office Visit [facility] [address] [place] [address] Annmarie Ellington MD 230 [place] [address] documented as of this encounter Visit Diagnoses Not on filedocumented in this encounter Additional Health Concerns Assessment Noted Time PHQ-9 Depression Total Score: 0 11/25/19 25 2:10 PM EDT documented as of this encounter Care Teams Energy Economist Relationship Specialty Start Date End Date Amy Pickett MD [address] [place] [address] PCP - General Internal Medicine 04/07/23 documented as of this encounter
--- OUTSIDE RECORDS SUMMARY | 2025-05-09 09:45 | XMS_ITS | Encounter Summary ---
Author Organization [employer] Address [address] [place] [address] 7 [place] [address] Care Team Providers Care Promotion Officer Name Role Phone Amy Pickett MD Primary Care Pro vider Reason for Visit * Reason Onset Date Comments Med Refill 02/24/2025 Encounter Details Date Type Department Care Team ([facility] st Contact Info) Description 02/24/2025 Telephone [facility] 230 [place], [place] [phone] Amy Pickett MD 230 [place], [place] [phone] Med Refill Social History Tobacco Use Types [...] to: [facility]/pharmacy #[address] documented in this encounter Plan of Treatment Upcoming Encounters Date Type Department Care Team (Late st Contact Info) Description 05/31/2025 11:00 AM EST Office Visit [facility] [address] [place] [address] 06/10/2025 1:45 PM EST Office Visit [facility] [address] [place] [address] Annmarie Ellington MD [address] [place] [address] documented as of this encounter Visit Diagnoses Not on filedocumented in this encounter Additional Health Concerns Assessment Noted Time PHQ-9 Depression Total Score: 0 11/25/19 25 2:10 PM EDT documented as of this encounter Care Teams Promotion Officer Relationship Specialty Start Date End Date Amy Pickett MD [address] [place] [address] PCP - General Internal Medicine 04/07/23 documented as of this encounter
--- OUTSIDE RECORDS SUMMARY | 2025-05-09 09:45 | XMS_ITS | Encounter Summary ---
Author Organization [employer] Address 75 [facility] 7 [place] [address] Care Team Providers Care Steam Clothes Press Operator Name Role Phone Amy Pickett MD Primary Care Pro vider Reason for Visit * Reason Onset Date Comments Med Refill 02/11/2024 Encounter Details Date Type Department Care Team (Late st Contact Info) Description 02/11/2024 Telephone [facility] 230 [place], [place] [phone] Amy Pickett MD 230 [place], [place] [phone] Med Refill Social History Tobacco Use Types [...] immediate release tablet To be sent to: [facility]/pharmacy #1972 - [address] documented in this encounter Plan of Treatment Upcoming Encounters Date Type Department Care Team (Late st Contact Info) Description 05/31/2025 11:00 AM EST Office Visit [facility] [address] [place] [address] 06/10/2025 1:45 PM EST Office Visit [facility] [address] [place] [address] Annmarie Ellington MD [address] [place] [address] documented as of this encounter Visit Diagnoses Not on filedocumented in this encounter Additional Health Concerns Assessment Noted Time PHQ-9 Depression Total Score: 24 023 10:05 AM EDT documented as of this encounter Care Teams Steam Clothes Press Operator Relationship Specialty Start Date End Date Amy Pickett MD [address] [place] [address] [place] [address] PCP - General Internal Medicine 04/07/23 documented as of this encounter
--- OUTSIDE RECORDS SUMMARY | 2025-05-09 09:45 | XMS_ITS | Encounter Summary ---
Author Organization [employer] Address 75 [facility] 7 [place] [address] Care Team Providers Care Customer Success Advocate Name Role Phone Amy Pickett MD Primary Care Pro vider Reason for Visit * Reason Onset Date Comments Medication Question 03/17/2025 Encounter Details Date Type Department Care Team ([facility] st Contact Info) Description 03/17/2025 Telephone [facility] MEDICINE 230 [place], [place] [phone] Amy Pickett MD 230 [place] [address] Medication Question Social History Tobacco Use Types [...] pain killer. Any questions contact pt at [phone] * Telephone Encounter - Andrew Maldonado - 03/17/2025 11:19 AM EDT Tc from Domenica, pt's SHIPPING AND RECEIVING ASSOCIATE, stating pt had a surgery done but due to pt being prescribed Oxycodone they were unable to prescribe pt any pain medication. Domenica is hoping pt can be prescribed some sort of muscle relaxer or an accomodation to be prescribed medication. If any questions please contact Domenica at [phone]. documented in this encounter Plan of Treatment Upcoming Encounters Date Type Department Care Team ([facility] st Contact Info) Description 05/31/2025 11:00 AM EST Office Visit [facility] MED[facility]INE [address] [place] [address] 06/10/2025 1:45 PM EST Office Visit [facility] 230 [place] [address] Annmarie Ellington MD 230 [place], [place] [phone] documented as of this encounter Visit Diagnoses Not on filedocumented in this encounter Additional Health Concerns Assessment Noted Time PHQ-9 Depression Total Score: 0 11/25/19 25 2:10 PM EDT documented as of this encounter Care Teams Customer Success Advocate Relationship Specialty Start Date End Date Amy Pickett MD 230 [place], [place] [phone] PCP - General Internal Medicine 04/07/23 documented as of this encounter
--- OUTSIDE RECORDS SUMMARY | 2025-05-09 09:45 | XMS_ITS | Encounter Summary ---
Author Organization [employer] Address 75 [facility] 7 [place] [address] Care Team Providers Care Auto Body Worker Name Role Phone Amy Pickett MD Primary Care Pro vider Reason for Visit * Reason Onset Date Comments Med Refill 05/04/2025 Encounter Details Date Type Department Care Team (Late st Contact Info) Description 05/04/2025 Refill [facility] [address] [place], [place] [phone] Amy Pickett MD [address] [place] [address] Social History Tobacco Use Types Packs/Day Years [...] Description 05/31/2025 11:00 AM EST Office Visit [facility] [address] [place] [phone] 06/10/2025 1:45 PM EST Office Visit [facility] [address] [place] [phone] Annmarie Ellington MD [address] [place] [phone] documented as of this encounter Visit Diagnoses Not on filedocumented in this encounter Additional Health Concerns Assessment Noted Time PHQ-9 Depression Total Score: 0 11/25/19 25 2:10 PM EDT documented as of this encounter Care Teams Auto Body Worker Relationship Specialty Start Date End Date Amy Pickett MD [address] [place] [phone] PCP - General Internal Medicine 04/07/23 documented as of this encounter
--- OUTSIDE RECORDS SUMMARY | 2025-05-09 09:45 | XMS_ITS | Encounter Summary ---
Author Organization [employer] Address 75 [facility] 7 [place] [address] Care Team Providers Care Venetian Blind Worker Name Role Phone Amy Pickett MD Primary Care Pro vider Reason for Visit * Reason Onset Date Comments FYI 04/21/2025 Encounter Details Date Type Department Care Team ([facility] st Contact Info) Description 04/21/2025 Telephone [facility] [address] [place], [place] [phone] Amy Pickett MD [address] [place] [address] FYI Social History Tobacco Use Types Packs/Day [...] 11:00 AM EST Office Visit [facility] [address] [place] [phone] 06/10/2025 1:45 PM EST Office Visit [facility] [address] [place] [address] Annmarie Ellington MD [address] [place] [address] documented as of this encounter Visit Diagnoses Not on filedocumented in this encounter Additional Health Concerns Assessment Noted Time PHQ-9 Depression Total Score: 0 11/25/19 25 2:10 PM EDT documented as of this encounter Care Teams Venetian Blind Worker Relationship Specialty Start Date End Date Amy Pickett MD [address] [place] [phone] PCP - General Internal Medicine 04/07/23 documented as of this encounter
--- OUTSIDE RECORDS SUMMARY | 2025-05-09 09:45 | XMS_ITS | Encounter Summary ---
Author Organization [employer] Address 75 [facility] 7t [place] [address] Care Team Providers Care Property Damage Claims Adjustor Name Role Phone Amy Pickett MD Primary Care Pro vider Reason for Visit * Reason Onset Date Comments CONCERNS WITH RMV FORM AND MED LIST 05/05/2025 Encounter Details Date Type Department Care Team ([facility] st Contact Info) Description 05/05/2025 Telephone [facility] [address] [place] [address] [phone] Amy Pickett MD [address] [place] [address] CONCERNS WITH RMV FORM AND MED LIST Social History Tobacco Use Types Packs/Day Years [...] the past 12 months, has t he [employer], gas, oil or water [employer] threatened to shut off services in your [...] Telephone Encounter - Michelle Kapoor RN - 05/06/2025 3:31 PM EDT Images from the original note were not included. Call placed to patient at both numbers ([phone] and [phone]) to review message from Dr Rincon. No Answer, Voicemail left at both numbers requesting a return call. Amy Berry MD 05/05/25 4:09 PM Hi please can you follow w pt as message below I stopped Gabapentin in 03/2025 so I have not been sending any refills , In regards escitalopram he has a psychiatrist , I dont prescribe that med, I removed nicotine lozange from system today, Atorvastatin, he has very uncontrol lipids and unfortunately he never repeated labs I would not rec to decrease dose but I advise that pt discuss w his medical auditor and new PCP provider , I dont know if pt is taking half of the dose now ? Thanks * Telephone Encounter - Michelle Kapoor RN - 05/05/2025 11:45 AM EDT Spoke to Patient in person, [facility]. Patient informed of plan and states he will not need any correction to the form as his specialist at [facility] provided a note that states he is cleared to drive after he recovers from surgery, with time frame recommendations. Will send to Dr Rincon to update. * Telephone Encounter - Michelle Kapoor RN - 05/05/2025 11:[address]T Spoke to [address] Rincon who reports form will be corrected/ amended to the option that recommends a driving test to determine if Patient can safely operate a motor vehicle. Dr Rincon to document this recommendation and request amended form from the Forms team. * Telephone Encounter - Michelle Kapoor RN - 05/05/2025 9:[address] Rincon, I met with Zain Lazcano today regarding concerns about his RMV notification and current medication list. 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 He stated he does not drive but keeps a vehicle in his name for insurance reasons; his [employer] MECHANIC and children use his vehicle to provide transportation. Patient is requesting review or clarification of the form, as he feels it led to unintended RMV action. Patient was tearful and distressed, citing both financial and emotional impact. Medication concerns reported: States he is no longer taking: gabapentin, increased dose of atorvastatin (not taking 80mg as he feels he was controlled on the previous dose 40mg and there is no need to be on the 80mg), nicotine patches, nicotine lozenges, and escitalopram. Patient is requesting meds he is not taking to be removed from his med list. Picked up gabapentin today but plans to return it to the pharmacy. Request for provider review: Please review the RMV form/documentation to determine if any clarification or follow-up with the RMV is appropriate. Please review and update the medication list as clinically appropriate. Thank you for reviewing and addressing these concerns. Michelle WESTBROOK * Telephone Encounter - Michelle Kapoor RN - 05/05/2025 9:08 AM EDT [employer] was contacted by [employer] to speak with patient regarding a request to transfer care. The patient was brought into the Walk-In center triage room for a private discussion. He informed me that he has already been approved to transfer from Dr. Rincon to Dr. Ellington. 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 He reports this was triggered by information submitted by Dr. Rincon on his Application for [employer], which included checking off a statement indicating that the patient ???is not medically qualified to operate a motor vehicle safely.?? Dr. 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 The patient confirmed that he does not currently drive his motor vehicle but maintains it in his name to keep insurance costs lower. He shared that his [employer]O TOP MECHANIC and children are the ones who drive him in his own vehicle. He stated that adding his children to his insurance policy as drivers significantlyincreases the premium, which he cannot afford. The patient is requesting that Dr. Rincon retract or amend the form to indicate that his condition does not impair the safe operation of a motor vehicle, as he is not driving. I discussed with the patient that the form reflects Dr. Rincon???s medical opinion and documentationof his report that he does not drive. The patient became tearful and expressed that the [facility] requestfor medical surrender is causing him significant emotional distress and financial hardship. He stated that even a temporary loss of his license would negatively impact his mental health, medical conditions since he will not be able to make it to appointments, and finances. The patient also reported concerns that Dr. Rincon continues to prescribe medications he is no longer taking, including gabapentin, increased dose of atorvastatin (he is taking 40mg, not the 80mg recorded in his record), nicotine patches, nicotine lozenges, and escitalopram. He stated he picked up a prescription for gabapentin earlier today but plans to return it to the pharmacy. Plan / Next Steps: Patient???s concerns regarding the RMV form and license surrender will be forwarded to Dr. Rincon and clinic leadership for review. Patient encouraged to discuss these concerns directly with Dr. Rincon or with his new provider, Dr. Ellington, once transfer of care is completed. Patient advised to review and update his medication list with his Dr Ellington during upcoming transfer appointment to ensure accuracy. Current report of medications he is no longer taking will be forwarded to Dr Rincon for review and chart update. Due to expressed emotional distress, patient was offered supportive listening and informed that additional behavioral health support is available if needed. Patient reports he is already taking to his counselor regarding all the above and his current mental state. No further immediate safety concerns noted at this time. [employer] to contact Patient at [phone], to inform of any update to RMV concerns and updates to med list. documented in this encounter Plan of Treatment Upcoming Encounters Date Type Department Care Team (Late st Contact Info) Description 05/31/2025 11:00 AM EST Office Visit [facility] [address] [place] [phone] 06/10/2025 1:45 PM EST Office Visit [facility] [address] [place] [phone] Annmarie Ellington MD [address] [place] [phone] documented as of this encounter Visit Diagnoses Not on filedocumented in this encounter Additional Health Concerns Assessment Noted Time PHQ-9 Depression Total Score: 0 11/25/19 2:10 PM EDT documented as of this encounter Care Teams Property Damage Claims Adjustor Relationship Specialty Start Date End Date Amy Pickett MD [address] [place] [phone] PCP - General Internal Medicine 04/07/23 documented as of this encounter
--- OUTSIDE RECORDS SUMMARY | 2025-05-09 09:45 | XMS_ITS | Encounter Summary ---
Author Organization [employer] Address [address] [place] [address] 7t [place] [address] Care Team Providers Care Attendant Honor Bar Name Role Phone Elise Glover REPRESENTATIVE PHLEBOTOMY SERVICES Primary Care Provider Amy Ware MD Primary Care Pro vider Reason for Visit * Reason Onset Date Comments Durable Medical Equipment 10/07/2022 Encounter Details Date Type Department Care Team (Late st Contact Info) Description 10/07/2022 Telephone [facility] [address] [place] [address] Elise Glover, REPRESENTATIVE PHLEBOTOMY SERVICES Durable Medical Equipment Social History Tobacco Use [...] for providers signature * Telephone Encounter - Ahidiomedes Fernandezkenia Marquez - 10/07/2022 11:47 AM EDT Tc from Anabelle with N requesting a script for Shower Chair, Had held shower held, Non-slip Mat, Med Reminder, and a Toilet riser. If any questions please contact Anabelle at [phone] documented in this encounter Plan of Treatment Upcoming Encounters Date Type Department Care Team (Late st Contact Info) Description 05/31/2025 11:00 AM EST Office Visit [address] [phone] 06/10/2025 1:45 PM EST Office Visit [address] [phone] Annmarie Ellington MD [address] [place] [phone] documented as of this encounter Visit Diagnoses Not on filedocumented in this encounter Additional Health Concerns Assessment Noted Time PHQ-9 Depression Total Score: 24 023 10:05 AM EDT documented as of this encounter Care Teams Attendant Honor Bar Relationship Specialty Start Date End Date Elise Glover FNP PCP - General Family Medicine 07/09/22 04/06/23 Amy Pickett MD [address] [place] [phone] PCP - General Internal Medicine 04/07/23 documented as of this encounter
--- OUTSIDE RECORDS SUMMARY | 2025-05-09 09:45 | XMS_ITS | Clinical Summary ---
Author Organization [employer] Address [address] [place] [address] 7[address] [place] [address] Care Team Providers Care Personal Counselor Name Role Phone Amy Pickett MD [...] 022 Active Nebulizers (Comp-Air Elite Compact Neb) [facility] [place] Blood Pressure Monitor kit 1 each [...] vomiting. 60 tablet 1 023 Active pancrelipase, Qeg-Hidl-Ydgb, (Creon) 5127-9540 units capsule Take 1 capsule by mouth [...] in the evening. 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 Do not start before April 22, 2025. 112 tablet 025 2024 Active cyanocobalamin (Vitamin B-12) 1000 MCG tablet TAKE 1 TABLET (1,000 MCG) BY MOUTH ONCE PER DAY. 90 tablet 1 Active olmesartan (BENIcar) 40 MG tabletIndicatio ns:Essential hypertension TAKE 1 TABLET (40 MG) BY MOUTH ONCE PER DAY. 90 tablet Active loratadine (Claritin) 10 MG tablet TAKE 1 TABLET BY MOUTH EVERY DAY 90 tablet 1 025 Active loratadine (Claritin) 10 MG tablet TAKE 1 TABLET BY MOUTH EVERY DAY 90 tablet 1 024 2024 Discontinued(R eorder (will not trigger notification to Pharmacy)) cyanocobalamin (Vitamin B-12) 1000 MCG tablet TAKE 1 TABLET (1,000 MCG) BY MOUTH ONCE PER DAY. 90 tablet 025 2024 Discontinued nicotine polacrilex (Commit) 4 MG lozenge Dissolve 1 lozenge (4 mg) in the mouth every 2 (two) hours if needed for smoking cessation. 100 lozenge 3 025 2024 Discontinued(N on-compliance) olmesartan (Benicar) 40 MG tabletIndicatio ns:Essential hypertension Take 1 tablet (40 mg) by mouth Once per day. 90 tablet 025 2024 Discontinued gabapentin (Neurontin) 600 MG tabletIndicatio ns:Chronic low back pain, unspecified back pain laterality, unspecified whether sciatica present TAKE 1 TABLET BY MOUTH EVERYDAY AT BEDTIME 30 tablet 2 025 2024 Discontinued(O ther) oxyCODONE (Roxicodone) 15 MG immediate release tabletIndicatio ns:BAGEL MAKER checked 06/13/22 Take 1 tablet (15 mg) by mouth every 6 (six) hours for 28 days. 112 tablet 025 2024 Discontinued(R eorder (will not trigger notification to Pharmacy)) cyclobenzaprine (Flexeril) 5 MG tabletIndicatio ns:Chronic right [...] 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 2023 Overview (05/03/2025): Dx: chronic neck, low back pain, LE claudication Rx: Oxycodone 15mg IR q 6 hours Controlled Substance Agreement 10/13/2024 Tier: 1 (monthly CARPENTER RAILCAR visits) Additional considerations: Alprazolam 1mg for anxiety Assessment & Plan (05/03/2025 1:56 PM EDT): Timeline: -previous positive utox for cocaine 11/2023 -09/28/24: Group - utox/pill count as expected -01/25/25: Group - Pill count as expected, Utox pos cocaine. Confirmatory testing sent. -05/03/25: Group - utox/pill count as expected Assessment & Plan (01/25/2025 1:45 PM EDT): Timeline: -previous positive utox for cocaine 11/2023 -09/28/24: Group - utox/pill count wnl -01/25/25: Group - Pill count as expected, Utox pos cocaine. Confirmatory testing sent. Chronic obstructive pulmonar y disease, unspecified COPD type (CMS/HCC) 05/16/2024 Overview (09/05/2024): Following with [facility] pulmonology-Dr. Maldonado Continue [...] Injections 11/2022 Encouraged stretching Will refer to [facility] Continue CARPENTER RAILCAR at this time. Will perform random Utox [...] root compression . Seen by Neurosurgery at [facility], note pending Referred to Pain Management November 2024 Assessment & Plan (05/03/2025 1:55 PM EDT): -Good engagement and participation with Group Medical Visit model -Encouraged multifactorial approach to pain control including pharm and non- pharm modalities -Utox and pill count as expected Assessment & Plan (01/25/2025 1:44 PM EDT): -Good engagement and participation with Group Medical Visit model -Encouraged multifactorial approach to pain control including pharm and non- pharm modalities -Pill count as expected, Utox pos cocaine. Confirmatory testing sent. See rf engineer. Assessment & Plan (09/28/2024 2:02 PM EDT): [...] C7 fracture seen on CT scan at [facility] ER 10/28/23 He [...] C7 fracture seen on CT scan at [facility] ER 10/28/23 He [...] to [facility] physical therapy Continue CARPENTER RAILCAR at this time. Will perform random Utox [...] lumbar pain. Encouraged stretching Will refer to [facility] Continue CARPENTER RAILCAR at this time. Will perform random Utox [...] organization. Date Type Department Care Team Description 05/05/2025 Orders Only [facility] MEDICINE [address] [place] [address] Amy Pickett MD 05/05/2025 Telephone [facility] WALK-IN CENTER [address] [place] [address] Amy Pickett MD CONCERNS WITH RMV FORM AND MED LIST 05/04/2025 Refill [facility] [address] [facility] [place] [address] Amy Pickett MD 05/03/2025 11:00 AM EDT Office Visit [facility] [address] [facility] [place] [address] Holly Wills, KENDRA Spondylosis of cervical spine (Primary Dx); 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 05/03/2025 Refill [facility] [address] [facility] [place] [address] Amy Pickett MD Essential hypertension 05/03/2025 Travel 05/02/2025 Refill [facility] [address] [facility] [place] [address] Amy Pickett MD 04/21/2025 Orders Only [facility] MED[facility] [address] [facility] [place] [address] Amy Pickett MD 04/21/2025 Telephone [facility] MEDICINE [address] [place] [phone] Amy Pickett MD FYI 04/21/2025 Refill [facility] MEDICINE [address] [place] [address] Amy Pickett MD Chronic pain of both knees; Chronic low back pain, unspecified back pain laterality, unspecified whether sciatica present 04/21/2025 Telephone [facility] MEDICINE [address] [place] [phone] Amy Pickett MD Nurse Triage 04/15/[address] [address] Amy Pickett MD Durable Medical Equipment 04/12/[address] [address] Amy Pickett MD Transfer PCP request 04/11/[address] [address] Amy Pickett MD 04/06/[address] [address] Amy Pickett MD Durable Medical Equipment 03/31/2025 Orders Only [facility] External Provider, [facility] 03/29/2025 9:45 AM EDT Clinical Support [facility] MEDICINE [address] [place] [phone] 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 RN Chronic right shoulder pain (Primary Dx) 03/29/2025 Telephone [facility] MED & PEDS [address] [place] [address] 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, DARIANA 03/29/2025 Orders Only [facility] MEDICINE [address] [place] [address] Amy Pickett MD Chronic right shoulder pain (Primary Dx) 03/29/2025 Telephone [facility] [address] [place] [address] 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 RN 03/29/2025 Travel 03/24/2025 Refill [facility] [address] [place] [address] 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, 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; Chronic low back pain, unspecified back pain laterality, unspecified whether sciatica present 03/24/2025 Refill [facility] MEDICINE [address] [place] [phone] Amy Pickett MD Moderate persistent asthma without complication 03/24/2025 Telephone [facility] MEDICINE [address] [place] [address] Amy Pickett MD Med Refill 03/22/2025 Orders Only [facility] External Provider, [facility] 03/18/2025 Orders Only [facility] MEDICINE [address] [place] [address] Amy Pickett MD 03/18/2025 Telephone [facility] MEDICINE [address] [place] [address] Amy Pickett MD Change PCP 03/18/2025 Telephone [facility] [address] [place] [address] 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, DARIANA 03/17/2025 Orders Only [facility] MEDICINE [address] [place] [address] Amy Pickett MD 03/17/2025 Telephone [facility] MEDICINE [address] [place] [address] Amy Pickett MD Nurse Triage 03/17/2025 Telephone [facility] MEDICINE [address] [place] [phone] Amy Pickett MD Medication Question 03/16/2025 Telephone [facility] [address] [place] [address] 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 RN 03/16/2025 Telephone [facility] MEDICINE [address] [place] [phone] Amy Pickett MD FYI 03/08/2025 Orders Only [facility] MEDICINE [address] [place] [phone] Amy Pickett MD 03/08/2025 Telephone [facility] [address] [place] [address] 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 RN 03/05/2025 Refill [facility] MEDICINE [address] [place] [address] Amy Pickett MD Chronic low back pain, unspecified back pain laterality, unspecified whether sciatica present 03/03/2025 Telephone [facility] MEDICINE [address] [place] [address] Amy Pickett MD Durable Medical Equipment 03/03/2025 Telephone [facility] MEDICINE [address] [place] [phone] Amy Pickett MD call back requesting 03/01/2025 9:10 AM EDT Clinical Support [address] [address] 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, DARIANA intermediate 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 03/01/2025 Orders Only [facility] MEDICINE [address] [place] [address] Amy Pickett MD 03/01/2025 Telephone [facility] [address] [place] [address] 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 RN 03/01/2025 Travel 02/24/2025 Refill [facility] [address] [place] [address] 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, 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; Chronic low back pain, unspecified back pain laterality, unspecified whether sciatica present 02/24/2025 Telephone [facility] MEDICINE [address] [place] [address] Amy Pickett MD med 02/24/2025 Telephone [facility] MEDICINE [address] [place] [address] Amy Pickett MD Med Refill 02/19/2025 Refill [facility] MEDICINE [address] [place] [address] Amy Pickett MD 02/10/2025 9:30 AM EDT Office Visit [facility] MEDICINE [address] [place] [address] Amy Pickett MD Cervical spondylosis without myelopathy (Primary Dx); Chronic migraine without aura without status migrainosus, not intractable; Essential hypertension; H/O lipoma; Mass of wrist, right; Claudication of left lower extremity (CMS/HCC); Health care maintenance; Lipoma, unspecified site; 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; Chronic right shoulder pain; Spondylosis of cervical spine; Chronic bilateral low back pain without sciatica 02/10/2025 Telephone [facility] MEDICINE [address] [place], [place] [phone] Amy Pickett MD Change PCP; TRANSFER REQUEST 02/10/2025 Travel 02/08/2025 Refill [facility] WALK-IN CENTER [address] [place], [place] [phone] Amy Pickett MD from Last 3 Months Immunizations Immunization Administration [...] Description 05/31/2025 11:00 AM EST Office Visit [facility] MEDICINE [address] [place] [address] 06/10/2025 1:45 PM EST Office Visit [address] [address] Annmarie Ellington MD [address] [place] [phone] Health Maintenance Due Date Last Done Comments CT Colonography 1967 FIT DNA/Cologuard 1967 FIT 1967 FOBT 1965 Sigmoidoscopy 1965 Hepatitis A Vaccines (1 of 2 - Risk 2-dose series) 12/23/1986 Alcohol/Substance Use Screening 11/24/2025 11/24/2024 Depression Screening 11/24/2025 11/24/2024, 11/25/19 Disability Screening 11/24/2025 11/24/2024 SDOH Screening 11/24/2025 [...] Comments POCT ROBIN-14 URINE DRUG SCREEN Routine 05/03/2025 12:35 PM EDT intermediate 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 MR CERVICAL SPINE WO CONTRAST Routine 04/01/2025 11:36 AM EDT POCT ROBIN-14 URINE DRUG SCREEN Routine 03/29/2025 10:07 AM EDT Chronic right shoulder pain XR PELVIS 1-2 VIEWS Routine 03/22/2025 1 :32 PM EDT POCT ROBIN-14 URINE DRUG SCREEN Routine 03/01/2025 10:10 AM EDT 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 POINT OF CARE TEST ENTER/EDIT ORDERABLES Final Result * MR Cervical Spine w/o Contrast (04/01/2025 11:36 AM EDT) Anatomical Region Laterality Modality Spine, C-spine Magnetic Resonan ce 04/01/2025 11:3 6 AM EDT Narrative 04/01/2025 11:37 AM EDT [place] [address] Magnetic Resonance Report Signed Patient: Zain Welch MR# : [id number] : 1965 Acct:[id number] Age/Sex: 59 / M ADM Date: 03/31/25 Loc: HO.MRI Attending Dr: Juan David MIRANDA Ordering Physician: Rosangela Cole CNP Date of Service: 03/31/25 Procedure(s): MR cervical spine wo con Accession Number(s): [id number] cc: Rosangela Cole CNP; Amy Pickett MD [...] stenosis. C5-C6: Small posterior disc protrusion. Mild ssgl-phapapy-myld-right neural foraminal narrowing. No significant central canal stenosis. C6-C7: Pgoro-xs-jwvfswns posterior disc protrusion. Moderate bilateral neural foraminal [...] 04/01/25 1137 DD/ 1136 TD/TT: 04/01/25 1136 Watch Repairer Apprentice: Procedure Note Donotuseinterpreter, Image - 04/01/2025 [place] [address] Magnetic Resonance Report Signed Patient: Zain Welch LMR# : [id number] : 1965Acct:[id number] Age/Sex: 59 / MADM Date: 03/31/25 Loc: HO.MRI Attending Dr: Juan David MIRANDA Ordering Physician: Rosangela Cole CNP Date of Service: 03/31/25 Procedure(s): MR cervical spine wo [facility] Accession Number(s): [id number] cc: Rosangela Cole CNP; Amy Pickett MD [...] stenosis. C5-C6: Small posterior disc protrusion. Mild pttc-femvxqn-tkan-right neural foraminal narrowing. No significant central canal stenosis. C6-C7: Uhtdj-ik-kyopxehh posterior disc protrusion. Moderate bilateral neural foraminal [...] 04/01/25 1137 DD/ 1136 TD/TT: 04/01/25 1136 Watch Repairer Apprentice: [facility] External Provider IMG MRI PROCEDURES Final Result * XR Pelvis 1-2 Views (03/22/2025 1:32 PM EDT) Anatomical Region Laterality Modality Body, Pelvis Radiographic Maxine ging 03/22/2025 1:32 PM EDT Narrative 03/22/2025 1:45 PM EDT [address] [address] XRay Report Signed Patient: Zain Welch MR# : [id number] : 1965 Acct:[id number] Age/Sex: 59 / M ADM Date: 03/22/25 Loc: HO.XRAY Attending Dr: Salvador Elliott MD Ordering Physician: Salvador Elliott MD Date of Service: 03/22/25 Procedure(s): XR pelvis 1-2V Accession Number(s): [id number] cc: Salvador Elliott MD; Amy Pickett MD [...] 03/22/25 1343 DD/ 1332 TD/TT: 03/22/25 1335 Watch Repairer Apprentice: Procedure Note Donotuseinterpreter, Image - 03/22/[address] [address] XRay Report Signed Patient: Zain Welch LMR# : [id number] : 1965Acct:[id number] Age/Sex: 59 / MADM Date: 03/22/25 Loc: HO.XRAY Attending Dr: Salvador Elliott MD Ordering Physician: Salvador Elliott MD Date of Service: 03/22/25 Procedure(s): XR pelvis 1-2V Accession Number(s): [id number] cc: Salvador Elliott MD; Amy Pickett MD [...] 03/22/25 1343 DD/ 1332 TD/TT: 03/22/25 1335 Watch Repairer Apprentice: [facility] External Provider IMG XR PROCEDURES Edited Result - Final * Drug Monitoring, Cocaine Metabolite, Quantitative, Urine (03/01/2025 9:32 AM EDT) [facility] Comment:CUTOFF 100NG/MLPERFO RMING SITE:[employer] [facility], [address] [place] [address] V Belt Mold Assembler And Curer: MICHELLE GAUTAM MD, CLIA:[id number] Cocaine Comments SEE NOTE [facility] Comment:This drug testing is for medical treatment only. Analysiswas performed as non-forensic testing and these resultsshould be used only by healthcare providers torender diagnosis or treatment, or to monitor progress ofmedical conditions.Cocaine Notes:Benzoylecgonine detected is consistent with the use of thedrug Cocaine.LDT Notes:Confirmation tests were developed and their analyticalperformance characteristics have been determined by [employer]. It has not been cleared orapproved by the FDA. This assay has been validated pursuantto the CLIA regulations and is used for clinical purposes.Healthcare Providers needing Interpretation assistance,please contact us at [phone] ( ) M-F,8am to 10pm EST 03/01/2025 9:32 AM EDT 03/01/2025 1:39 PM EDT Amy Berry MD LAB URINE ORDERAB LES Final Result Performing Organization Address [facility] Co de Phone Number [facility] [address] [place] [address] [phone] * (ABNORMAL) Hepatitis C Antibody with Reflex to HCV, RNA, Quantitative, Real- Time PCR (09/29/2024 3:37 PM EDT) Hepatitis C Antibody Reactive( A) Nonreactive [facility] Comment:Presumptive evidence of antibodies to HCV. Blood Venous blood specimen / Unknown 09/29/2024 3:37 PM EDT 09/29/2024 3:38 PM EDT Brent Fischer MD LAB BLOOD ORDERABL ES Final Result Performing Organization Address [facility] Co de Phone Number [facility] [address] [place] [phone] * HIV-1/2 Antigen and Antibodies, Fourth Generation, with Reflexes (09/29/2024 3:37 PM EDT) HIV AB/AG Nonreactive Nonreactive [facility] Comment:HIV-1 p24 Ag and/or HIV-1/HIV-2 Ab not detected.A test result that is nonreactive does not exclude thepossibility of exposure to or infection with HIV-1 and/orHIV-2. Nonreactive results in this assay for individualswith prior exposure to HIV-1 and/or HIV-2 may be due toantigen and antibody levels that are below the limit ofdetection of this assay.The [employer] HIV Ag/Ab Combo assay result andsupplemental assay results should be interpreted inconjunction with the patient's clinical presentation,history and other laboratory results. If the results areinconsistent with clinical evidence, additional testing issuggested to confirm the result. Blood Venous blood specimen / Unknown 09/29/2024 3:37 PM EDT 09/29/2024 3:38 PM EDT Brent Fischer MD LAB BLOOD ORDERABL ES Final Result Performing Organization Address City/[facility]/ZIP Co de Phone Number [facility] [address] [place] [address] [phone] * (ABNORMAL) Lipid Panel, Standard (09/29/2024 3:37 PM EDT) Triglycerides 155(H) <150 mg/dL [facility] Comment:Desirable Triglyceri de: less than 150 [...] 190 mg/dL HDL Cholesterol 49 >40 mg/dL [facility] Comment:Desirable HDL: great er than 40 mg/dL Note: This HDL assay may give artificially low results in patients with liver disease. Blood Venous blood specimen / Unknown 09/29/2024 3:37 PM EDT 09/29/2024 3:38 PM EDT us Amy Berry MD LAB BLOOD ORDERAB LES Final Result Performing Organization Address City/[facility]/ZIP Co de Phone Number [facility] [address] [place] [address] [phone] * Hm Colonoscopy (01/06/2018 8:00 AM EDT) us Historical Provider HEALTH MAINTENANCE Final Result from Last 3 Months or Most Recently Relevant to Health Maintenance Insurance [address], [place] [employer] < 65 [place] [id number] [address] [address] [place] [address] [place], [place] Care Teams Personal Counselor Relationship Specialty Start Date End Date Amy Pickett MD [address] [place] [phone] PCP - General Internal Medicine 04/07/23
== END 2025-05-09 09:38 | disposition home or self-care (01) ==
LOC: HO.HCS 08:59
PROVIDERS: PCP General Practice; Visit Provider Internal Medicine
DX: Z01.810 Encounter for preprocedural cardiovascular examination (principal); I10 Essential (primary) hypertension
CPT/HCPCS: 93010; 99214; G2211

== ENCOUNTER → 2025-05-09 08:59 | Outpatient (BNVA) | payer OTHER, SELFPAY | PROVIDERS: PCP General Practice; Visit Provider Internal Medicine | DX: Z01.810 Encounter for preprocedural cardiovascular examination (principal); I10 Essential (primary) hypertension; F17.210 Nicotine dependence, cigarettes, uncomplicated | CPT/HCPCS: 93005; 99212 ==

== ENCOUNTER 2025-05-18 06:58 | Outpatient (AMB) | payer OTHER, SELFPAY ==
--- OUTSIDE RECORDS SUMMARY | 2025-05-18 07:00 | XMS_ITS | Clinical Summary ---
Author Organization [facility] Facility Address [address] [place] [address] Care Team Providers Care Housekeeping Room Attendant Name Role Phone Donna Harmon MD [...] Sigmoidoscopy 12/23/2016 Influenza Vaccine (#1) 2025 Insurance [facility] [place] [id number] Care Teams Housekeeping Room Attendant Relationship Specialty Start Date End Date Donna Harmon MD PCP - General 05/11/19
--- OUTSIDE RECORDS SUMMARY | 2025-05-18 07:00 | XMS_ITS | Encounter Summary ---
Author Organization [employer] Address [address] [facility] 7 [place] [address] Care Team Providers Care Stove Polisher Name Role Phone Amy Pickett MD Primary Care Pro vider Reason for Visit * Reason Onset Date Comments Med Refill 05/13/2024 Encounter Details Date Type Department Care Team ([facility] st Contact Info) Description 05/13/2024 Telephone [facility] MEDICINE [address] [place], [place] [phone] Amy Pickett MD [address] [place] [address] Med Refill Social History Tobacco Use Types [...] To be sent to: [facility]acy #[id number] documented in this encounter Plan of Treatment Upcoming Encounters Date Type Department Care Team (Late st Contact Info) Description 05/31/2025 11:00 AM EST Office Visit [facility] MED[facility]INE [address] [place] [phone] 06/10/2025 1:45 PM EST Office Visit [facility] MED[facility] [address] [place] [phone] Annmarie Ellington MD [address] [place] [address] documented as of this encounter Visit Diagnoses Not on filedocumented in this encounter Additional Health Concerns Assessment Noted Time PHQ-9 Depression Total Score: 10 024 9:41 AM EDT documented as of this encounter Care Teams Stove Polisher Relationship Specialty Start Date End Date Amy Pickett MD [address] [place] [phone] PCP - General Internal Medicine 04/07/23 documented as of this encounter
--- OUTSIDE RECORDS SUMMARY | 2025-05-18 07:00 | XMS_ITS | Encounter Summary ---
Author Organization [employer] Address 75 [facility] 7 [place] [address] Care Team Providers Care Ampoule Sealer Name Role Phone Amy Pickett MD Primary Care Pro vider Reason for Visit * Reason Onset Date Comments Appointment Request 10/05/2024 Encounter Details Date Type Department Care Team ([facility] st Contact Info) Description 10/05/2024 Telephone [facility] [address] [place], [place] [phone] Amy Pickett MD 230 [place], [place] [phone] Appointment Request Social History Tobacco Use Types [...] able to make it. Contact Isa at [phone] documented in this encounter Plan of Treatment Upcoming Encounters Date Type Department Care Team (Late st Contact Info) Description 05/31/2025 11:00 AM EST Office Visit [facility] [address] [place] [address] 06/10/2025 1:45 PM EST Office Visit [facility] [address] [place] [address] Annmarie Ellington MD 230 [place] [address] documented as of this encounter Visit Diagnoses Not on filedocumented in this encounter Additional Health Concerns Assessment Noted Time PHQ-9 Depression Total Score: 10 024 9:41 AM EDT documented as of this encounter Care Teams Ampoule Sealer Relationship Specialty Start Date End Date Amy Pickett MD [address] [place] [address] PCP - General Internal Medicine 04/07/23 documented as of this encounter
--- OUTSIDE RECORDS SUMMARY | 2025-05-18 07:00 | XMS_ITS | Encounter Summary ---
Author Organization [employer] Address 75 [facility] 7t [place] [address] Care Team Providers Care Right Of Way Cutter Name Role Phone Amy Pickett MD Primary Care Pro vider Encounter Details Date Type Department Care Team ([facility] st Contact Info) Description 09/01/2024 Telephone [facility] MED[facility]INE 230 [place], [place] [phone] Amy Pickett MD 230 [place] [address] Social History Tobacco Use Types Packs/Day Years [...] Description 05/31/2025 11:00 AM EST Office Visit [address] [address] 06/10/2025 1:45 PM EST Office Visit [address] [address] Annmarie Ellington MD [address] [place] [address] documented as of this encounter Visit Diagnoses Not on filedocumented in this encounter Additional Health Concerns Assessment Noted Time PHQ-9 Depression Total Score: 10 024 9:41 AM EDT documented as of this encounter Care Teams Right Of Way Cutter Relationship Specialty Start Date End Date Amy Pickett MD [address] [place] [address] PCP - General Internal Medicine 04/07/23 documented as of this encounter
--- OUTSIDE RECORDS SUMMARY | 2025-05-18 07:00 | XMS_ITS | Encounter Summary ---
Author Organization [employer] Address [address] [facility] [address] 7t [place] [address] Care Team Providers Care Kier Operator Name Role Phone Amy Pickett MD Primary Care Pro vider Encounter Details Date Type Department Care Team (Late st Contact Info) Description 10/01/2024 Orders Only [facility] [address] [place], [place] [phone] Za Preston MD 505 [place] [address] Social History Tobacco Use Types Packs/Day Years [...] Office Visit [facility] MEDICINE [address] [place] [address] 06/10/2025 1:45 PM EST Office Visit [facility] [address] [place] [address] Annmarie Ellington MD [address] [place] [address] documented as of this encounter Visit Diagnoses Not on filedocumented in this encounter Additional Health Concerns Assessment Noted Time PHQ-9 Depression Total Score: 10 024 9:41 AM EDT documented as of this encounter Care Teams Kier Operator Relationship Specialty Start Date End Date Amy Pickett MD [address] [place] [address] PCP - General Internal Medicine 04/07/23 documented as of this encounter
--- OUTSIDE RECORDS SUMMARY | 2025-05-18 07:00 | XMS_ITS | Encounter Summary ---
Author Organization [employer] Address 75 [facility] 7t [place] [address] Care Team Providers Care Nursery Supervisor Name Role Phone Elise Glover SURVEILLANCE MANAGER Primary Care Provider Amy Ware MD Primary Care Pro vider Reason for Visit * Reason Comments Med Change Request Encounter Details Date Type Department Care Team (Late st Contact Info) Description 03/03/2023 Refill [facility] [address] [place] [address] Elise Glover FNP Essential hypertension Social History [...] Description 05/31/2025 11:00 AM EST Office Visit [facility] [address] [place] [address] 06/10/2025 1:45 PM EST Office Visit [facility] 230 [place], [place] [phone] Annmarie Ellington MD 230 [place] [address] documented as of this encounter Visit Diagnoses Diagnosis Essential hypertension Unspecified essential hypertension documented in this encounter Additional Health Concerns Assessment Noted Time PHQ-9 Depression Total Score: 24 023 10:05 AM EDT documented as of this encounter Care Teams Nursery Supervisor Relationship Specialty Start Date End Date Elise Glover FNP PCP - General Family Medicine 07/09/22 04/06/23 Amy Pickett MD 230 [place] [address] PCP - General Internal Medicine 04/07/23 documented as of this encounter
--- OUTSIDE RECORDS SUMMARY | 2025-05-18 07:00 | XMS_ITS | Encounter Summary ---
Author Organization [employer] Address 75 [facility] 7 [place] [address] Care Team Providers Care Muffle Operator Name Role Phone Amy Pickett MD Primary Care Pro vider Reason for Visit * Reason Onset Date Comments Results 10/01/2024 Encounter Details Date Type Department Care Team ([facility] st Contact Info) Description 10/01/2024 Telephone [facility] MED[facility]INE 230 [place], [place] [phone] Amy Pickett MD 230 [place], [place] [phone] Results Social History Tobacco Use Types Packs/Day [...] Blood Test Date when done: 09/29/24 Facility: [facility] Contact pt at [phone] documented in this encounter Plan of Treatment Upcoming Encounters Date Type Department Care Team (Late st Contact Info) Description 05/31/2025 11:00 AM EST Office Visit [facility] [address] [place] [address] 06/10/2025 1:45 PM EST Office Visit [facility] [address] [place] [address] Annmarie Ellington MD 230 [place] [address] documented as of this encounter Visit Diagnoses Not on filedocumented in this encounter Additional Health Concerns Assessment Noted Time PHQ-9 Depression Total Score: 10 024 9:41 AM EDT documented as of this encounter Care Teams Muffle Operator Relationship Specialty Start Date End Date Amy Pickett MD [address] [place] [address] PCP - General Internal Medicine 04/07/23 documented as of this encounter
--- OUTSIDE RECORDS SUMMARY | 2025-05-18 07:00 | XMS_ITS | Clinical Summary ---
Author Organization [employer] [facility] Address [address] [place] [address] Care Team Providers Care Event Decorator Name Role Phone Ba Maria MD Primary Care Provider Surgical History Surgery Date Site/Laterality Comments FOOT SURGERY PROCEDURE: MD UNLISTED PROCEDURE FOOT/TOES; COMMENT: left foot bunion removal LIPOMA RESECTION PROCEDURE: SKIN TISSUE EXCISION(LIPOMA) OTHER SURGICAL HISTORY PROCEDURE: ---- OTHER ----; COMMENT: urethral surgeries done? three times in [facility] for difficulty urinating Medical History Medical History Date Comments Chronic back pain DX:Chronic alonso k pain Asthma DX:Asthma Anxiety DX:Anxiety; COMM ENT: follows at [facility] Family History Medical History Relation Name [...] age to complete this topic Care Teams Event Decorator Relationship Specialty Start Date End Date Ba Maria MD PCP - General Internal Medicine 10/26/12
--- OUTSIDE RECORDS SUMMARY | 2025-05-18 07:00 | XMS_ITS | Encounter Summary ---
Author Organization [employer] Address 75 [facility] 7t [place] [address] Care Team Providers Care Torch Burner Name Role Phone Amy Pickett MD Primary Care Pro vider Encounter Details Date Type Department Care Team ([facility] st Contact Info) Description 09/01/2024 Telephone [facility]INE 230 [place], [place] [phone] Amy Pickett MD 230 [place] [address] Social History Tobacco Use Types Packs/Day Years [...] Description 05/31/2025 11:00 AM EST Office Visit [address] [address] 06/10/2025 1:45 PM EST Office Visit [address] [address] Annmarie Ellington MD [address] [place] [address] documented as of this encounter Visit Diagnoses Not on filedocumented in this encounter Additional Health Concerns Assessment Noted Time PHQ-9 Depression Total Score: 10 024 9:41 AM EDT documented as of this encounter Care Teams Torch Burner Relationship Specialty Start Date End Date Amy Pickett MD [address] [place] [address] PCP - General Internal Medicine 04/07/23 documented as of this encounter
--- OUTSIDE RECORDS SUMMARY | 2025-05-18 07:00 | XMS_ITS | Encounter Summary ---
Author Organization [employer] Address 75 [facility] 7 [place] [address] Care Team Providers Care Metal Box Maker Name Role Phone Amy Pickett MD Primary Care Pro vider Reason for Visit * Reason Onset Date Comments Med Refill 04/09/2024 Encounter Details Date Type Department Care Team ([facility] st Contact Info) Description 04/09/2024 Telephone [facility] MEDICINE 230 [place], [place] [phone] Amy Pickett MD 230 [place] [address] Med Refill Social History Tobacco Use Types [...] release tablet To be sent to: [facility]/pharmacy #[address] documented in this encounter Plan of Treatment Upcoming Encounters Date Type Department Care Team (Late st Contact Info) Description 05/31/2025 11:00 AM EST Office Visit [facility] [address] [place] [address] 06/10/2025 1:45 PM EST Office Visit [facility] [address] [place] [address] Annmarie Ellington MD [address] [place] [address] documented as of this encounter Visit Diagnoses Not on filedocumented in this encounter Additional Health Concerns Assessment Noted Time PHQ-9 Depression Total Score: 10 024 9:41 AM EDT documented as of this encounter Care Teams Metal Box Maker Relationship Specialty Start Date End Date Amy Pickett MD [address] [place] [address] PCP - General Internal Medicine 04/07/23 documented as of this encounter
--- OUTSIDE RECORDS SUMMARY | 2025-05-18 07:01 | XMS_ITS | Encounter Summary ---
Author Organization [employer] Address 75 [facility] 7 [place] [address] Care Team Providers Care Archaeologist Name Role Phone Amy Pickett MD Primary Care Pro vider Reason for Visit * Reason Onset Date Comments Med Refill 02/11/2024 Encounter Details Date Type Department Care Team ([facility] st Contact Info) Description 02/11/2024 Telephone [facility] MEDICINE 230 [place], [place] [phone] Amy Pickett MD 230 [place], [place] [phone] Med Refill Social History Tobacco Use Types [...] be sent to: [facility]/pharmacy #1972 - [address] documented in this encounter Plan of Treatment Upcoming Encounters Date Type Department Care Team ([facility] st Contact Info) Description 05/31/2025 11:00 AM EST Office Visit [facility] [address] [place] [address] 06/10/2025 1:45 PM EST Office Visit [facility] [address] [place] [address] Annmarie Ellington MD [address] [place] [address] documented as of this encounter Visit Diagnoses Not on filedocumented in this encounter Additional Health Concerns Assessment Noted Time PHQ-9 Depression Total Score: 24 023 10:05 AM EDT documented as of this encounter Care Teams Archaeologist Relationship Specialty Start Date End Date Amy Pickett MD [address] [place] [address] PCP - General Internal Medicine 04/07/23 documented as of this encounter
--- OUTSIDE RECORDS SUMMARY | 2025-05-18 07:01 | XMS_ITS | Encounter Summary ---
Author Organization [employer] Address 75 [facility] 7 [place] [address] Care Team Providers Care Investment Strategist Name Role Phone Amy Pickett MD Primary Care Pro vider Reason for Visit * Reason Onset Date Comments Medication Question 03/17/2025 Encounter Details Date Type Department Care Team ([facility] st Contact Info) Description 03/17/2025 Telephone [facility] MEDICINE 230 [place], [place] [phone] Amy Pickett MD 230 [place], [place] [phone] Medication Question Social History Tobacco Use Types [...] pain killer. Any questions contact pt at [phone] * Telephone Encounter - Andrew Maldonado - 03/17/2025 11:19 AM EDT Tc from Domenica, pt's INDUSTRIAL ENGINEERING DIRECTOR, stating pt had a surgery done but due to pt being prescribed Oxycodone they were unable to prescribe pt any pain medication. Domenica is hoping pt can be prescribed some sort of muscle relaxer or an accomodation to be prescribed medication. If any questions please contact Domenica at [phone]. documented in this encounter Plan of Treatment Upcoming Encounters Date Type Department Care Team ([facility] st Contact Info) Description 05/31/2025 11:00 AM EST Office Visit [facility] MEDICINE [address] [place] [address] 06/10/2025 1:45 PM EST Office Visit [facility] MEDICINE 230 [place], [place] [phone] Annmarie Ellington MD 230 [place], [place] [phone] documented as of this encounter Visit Diagnoses Not on filedocumented in this encounter Additional Health Concerns Assessment Noted Time PHQ-9 Depression Total Score: 0 11/25/19 25 2:10 PM EDT documented as of this encounter Care Teams Investment Strategist Relationship Specialty Start Date End Date Amy Pickett MD 230 [place], [place] [phone] PCP - General Internal Medicine 04/07/23 documented as of this encounter
--- OUTSIDE RECORDS SUMMARY | 2025-05-18 07:01 | XMS_ITS | Encounter Summary ---
Author Organization [employer] Address 75 [facility] 7 [place] [address] Care Team Providers Care Electromagnet Crane Operator Name Role Phone Amy Pickett MD Primary Care Pro vider Reason for Visit * Reason Onset Date Comments Med Refill 02/24/2025 Encounter Details Date Type Department Care Team ([facility] st Contact Info) Description 02/24/2025 Telephone [facility] 230 [place], [place] [phone] Amy Pickett MD 230 [place] [address] Med Refill Social History Tobacco Use Types [...] sent to: [facility]/pharmacy #1972 - [address] [address] documented in this encounter Plan of Treatment Upcoming Encounters Date Type Department Care Team (Late st Contact Info) Description 05/31/2025 11:00 AM EST Office Visit [facility] [address] [place] [address] 06/10/2025 1:45 PM EST Office Visit [facility] [address] [place] [address] Annmarie Ellington MD [address] [place] [address] documented as of this encounter Visit Diagnoses Not on filedocumented in this encounter Additional Health Concerns Assessment Noted Time PHQ-9 Depression Total Score: 0 11/25/19 25 2:10 PM EDT documented as of this encounter Care Teams Electromagnet Crane Operator Relationship Specialty Start Date End Date Amy Pickett MD [address] [place] [address] PCP - General Internal Medicine 04/07/23 documented as of this encounter
--- OUTSIDE RECORDS SUMMARY | 2025-05-18 07:01 | XMS_ITS | Encounter Summary ---
Author Organization [employer] Address 75 [facility] 7 [place] [address] Care Team Providers Care Neurology Technician Name Role Phone Amy Pickett MD Primary Care Pro vider Reason for Visit * Reason Onset Date Comments Med Refill 03/24/2025 Encounter Details Date Type Department Care Team ([facility] st Contact Info) Description 03/24/2025 Telephone [facility] MEDICINE 230 [place], [place] [phone] Amy Pickett MD 230 [place] [address] Med Refill Social History Tobacco Use Types [...] immediate release tablet To be sent to: [facility]/pharmacy #1972 - [address] documented in this encounter Plan of Treatment Upcoming Encounters Date Type Department Care Team (Late st Contact Info) Description 05/31/2025 11:00 AM EST Office Visit [facility] MEDICINE [address] [place] [address] 06/10/2025 1:45 PM EST Office Visit [facility] MEDICINE [address] [place] [address] Annmarie Ellington MD [address] [place] [address] documented as of this encounter Visit Diagnoses Not on filedocumented in this encounter Additional Health Concerns Assessment Noted Time PHQ-9 Depression Total Score: 0 11/25/19 25 2:10 PM EDT documented as of this encounter Care Teams Neurology Technician Relationship Specialty Start Date End Date Amy Pickett MD [address] [place] [address] PCP - General Internal Medicine 04/07/23 documented as of this encounter
--- OUTSIDE RECORDS SUMMARY | 2025-05-18 07:01 | XMS_ITS | Encounter Summary ---
Author Organization [employer] Address 75 [facility] 7 [place] [address] Care Team Providers Care Cartridge Filler Name Role Phone Amy Pickett MD Primary Care Pro vider Reason for Visit * Reason Onset Date Comments Med Refill 2024 Encounter Details Date Type Department Care Team ([facility] st Contact Info) Description 2024 Telephone [facility] MEDICINE 230 [place], [place] [phone] Amy Pickett MD 230 [place], [place] [phone] Med Refill Social History Tobacco Use Types [...] To be sent to: [facility]/pharmacy #[id number] documented in this encounter Plan of Treatment Upcoming Encounters Date Type Department Care Team (Late st Contact Info) Description 05/31/2025 11:00 AM EST Office Visit [facility] MEDICINE [address] [place] [address] 06/10/2025 1:45 PM EST Office Visit [facility] MEDICINE [address] [place] [address] Annmarie Ellington MD 230 [place] [address] documented as of this encounter Visit Diagnoses Not on filedocumented in this encounter Additional Health Concerns Assessment Noted Time PHQ-9 Depression Total Score: 0 11/25/19 25 2:10 PM EDT documented as of this encounter Care Teams Cartridge Filler Relationship Specialty Start Date End Date Amy Pickett MD [address] [place] [address] PCP - General Internal Medicine 04/07/23 documented as of this encounter
--- OUTSIDE RECORDS SUMMARY | 2025-05-18 07:01 | XMS_ITS | Encounter Summary ---
Author Organization [employer] Address 75 [facility] 7 [place] [address] Care Team Providers Care Community Health Nursing Director Name Role Phone Amy Pickett MD Primary Care Pro vider Reason for Visit * Reason Onset Date Comments Appointment Request 09/02/2023 Encounter Details Date Type Department Care Team ([facility] st Contact Info) Description 09/02/[address] [facility] MEDICINE 230 [place], [place] [phone] Amy Pickett MD 230 [place] [address] Appointment Request Social History Tobacco Use Types Packs/Day Years Used Date Smoking Tobacco: Every Day Cigarettes Smokeless Tobacco: Never Depression Answer Date Recorded Patient Health Questionnaire-9 Score 24 10/01/2022 Housing Stability Answer Date Recorded What is your housing situation today? I have claudiomisbah medrano 04/28/[address] you [...] from pt requesting a transfer patient appointment. Instrumentation And Controls Technician does not see any availability. Pt states he needs appointment as soon as possible due to controlled medication. States needs to be seen bya new provider to continue medication. Please contact pt at [phone] documented in this encounter Plan of Treatment Upcoming Encounters Date Type Department Care Team (Late st Contact Info) Description 05/31/2025 11:00 AM EST Office Visit [facility] MEDICINE [address] [place] [address] 06/10/2025 1:45 PM EST Office Visit [facility] MEDICINE [address] [place] [address] Annmarie Ellington MD [address] [place] [address] documented as of this encounter Visit Diagnoses Not on filedocumented in this encounter Additional Health Concerns Assessment Noted Time PHQ-9 Depression Total Score: 24 023 10:05 AM EDT documented as of this encounter Care Teams Community Health Nursing Director Relationship Specialty Start Date End Date Amy Pickett MD [address] [place] [address] PCP - General Internal Medicine 04/07/23 documented as of this encounter
--- OUTSIDE RECORDS SUMMARY | 2025-05-18 07:01 | XMS_ITS | Encounter Summary ---
Author Organization [employer] Address 75 [facility] 7t [place] [address] Care Team Providers Care Christian Ministries Professor Name Role Phone Amy Pickett MD Primary Care Pro vider Reason for Visit * Reason Comments Med Refill Encounter Details Date Type Department Care Team ([facility] st Contact Info) Description 06/17/2024 Refill [facility] MEDICINE 230 [place], [place] [phone] Amy Pickett MD 230 [place] [address] Social History Tobacco Use Types Packs/Day Years [...] Description 05/31/2025 11:00 AM EST Office Visit [facility] MEDICINE [address] [place] [address] 06/10/2025 1:45 PM EST Office Visit [facility] MEDICINE [address] [place] [phone] Annmarie Ellington MD [address] [place] [address] documented as of this encounter Visit Diagnoses Not on filedocumented in this encounter Additional Health Concerns Assessment Noted Time PHQ-9 Depression Total Score: 10 024 9:41 AM EDT documented as of this encounter Care Teams Christian Ministries Professor Relationship Specialty Start Date End Date Amy Pickett MD [address] [place] [address] PCP - General Internal Medicine 04/07/23 documented as of this encounter
--- OUTSIDE RECORDS SUMMARY | 2025-05-18 07:01 | XMS_ITS | Encounter Summary ---
Author Organization [employer] Address 75 [facility] 7t [place] [address] Care Team Providers Care Content Editor Name Role Phone Amy Pickett MD Primary Care Pro vider Encounter Details Date Type Department Care Team ([facility] st Contact Info) Description 05/05/2025 Orders Only [facility] MEDICINE [address] [place] [address] [phone] mAy Pickett MD 230 [place] [address] Social History Tobacco Use Types Packs/Day Years [...] Description 05/31/2025 11:00 AM EST Office Visit [address] [address] 06/10/2025 1:45 PM EST Office Visit [address] [address] Annmarie Ellington MD [address] [place] [address] documented as of this encounter Visit Diagnoses Not on filedocumented in this encounter Additional Health Concerns Assessment Noted Time PHQ-9 Depression Total Score: 0 11/25/19 25 2:10 PM EDT documented as of this encounter Care Teams Content Editor Relationship Specialty Start Date End Date Amy Pickett MD [address] [place] [address] PCP - General Internal Medicine 04/07/23 documented as of this encounter
--- OUTSIDE RECORDS SUMMARY | 2025-05-18 07:01 | XMS_ITS | Encounter Summary ---
Author Organization [employer] Address 75 [facility] 7t [place] [address] Care Team Providers Care Talent Acquisition Relationship Manager Name Role Phone Elise Glover SANDWICH MACHINE OPERATOR Primary Care Provider Amy Waer MD Primary Care Pro vider Reason for Visit * Reason Onset Date Comments Durable Medical Equipment 10/07/2022 Encounter Details Date Type Department Care Team (Late st Contact Info) Description 10/07/2022 Telephone [facility] [address] [place] [address] Elise Glover, SANDWICH MACHINE OPERATOR Durable Medical Equipment Social History Tobacco Use [...] signature * Telephone Encounter - Shereen Sethi Marquez - 10/07/2022 11:47 AM EDT Tc from Anabelle with N requesting a script for Shower Chair, Had held shower held, Non-slip Mat, Med Reminder, and a Toilet riser. If any questions please contact Anabelle at [phone] documented in this encounter Plan of Treatment Upcoming Encounters Date Type Department Care Team (Late st Contact Info) Description 05/31/2025 11:00 AM EST Office Visit [address] [address] 06/10/2025 1:45 PM EST Office Visit [address] [address] Annmarie Ellington MD [address] [place] [phone] documented as of this encounter Visit Diagnoses Not on filedocumented in this encounter Additional Health Concerns Assessment Noted Time PHQ-9 Depression Total Score: 24 10/01/ 023 10:05 AM EDT documented as of this encounter Care Teams Talent Acquisition Relationship Manager Relationship Specialty Start Date End Date Elise Glover FNP PCP - General Family Medicine 07/09/22 04/06/23 Amy Pickett MD [address] [place] [phone] PCP - General Internal Medicine 04/07/23 documented as of this encounter
--- OUTSIDE RECORDS SUMMARY | 2025-05-18 07:01 | XMS_ITS | Encounter Summary ---
Author Organization [employer] Address 75 [facility] 7 [place] [address] Care Team Providers Care Snowmaker Name Role Phone Amy Pickett MD Primary Care Pro vider Reason for Visit * Reason Onset Date Comments Nurse Triage 03/17/2025 Encounter Details Date Type Department Care Team ([facility] st Contact Info) Description 03/17/2025 Telephone [facility] MED[facility]INE [address] [place], [place] [phone] Amy Pickett MD 230 [place] [address] Nurse Triage Social History Tobacco Use Types [...] to Zain Lazcano to triage below at [phone]. Pt states having a procedure done to [...] Is currently on the phone with a machine maintenance supervisor [facility]. She states that pt. 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 Pt. Luz Marina states that PCP will not give pt. Additional pain medication because pt. Is alreadyon Oxycodone. I advised that I will write this down as pt. Is currently speaking with a Sewing Machine Maintenance Mechanic. * Telephone Encounter - James Diana - 03/17/2025 4:02 PM EDT Symptom: Shoulder Pain - Not From Injury Outcome: Schedule an urgent appointment (within 1 hour) or talk to a nurse or provider soon Reason: Severe pain now The caller accepted this outcome. Contact pt at [phone] Pt was requesting for tramadol for his shoulder pain. Pt was already advised that he cannot take tramadol and Oxycodone at the same time. documented in this encounter Plan of Treatment Upcoming Encounters Date Type Department Care Team (Late st Contact Info) Description 05/31/2025 11:00 AM EST Office Visit [facility] MED[facility]INE [address] [place] [address] 06/10/2025 1:45 PM EST Office Visit [facility] 230 [place] [address] Annmarie Ellington MD [address] [place] [address] documented as of this encounter Visit Diagnoses Not on filedocumented in this encounter Additional Health Concerns Assessment Noted Time PHQ-9 Depression Total Score: 0 11/25/19 25 2:10 PM EDT documented as of this encounter Care Teams Snowmaker Relationship Specialty Start Date End Date Amy Pickett MD [address] [place] [phone] PCP - General Internal Medicine 04/07/23 documented as of this encounter
--- OUTSIDE RECORDS SUMMARY | 2025-05-18 07:01 | XMS_ITS | Encounter Summary ---
Author Organization [employer] Address 75 [facility] 7 [place] [address] Care Team Providers Care Food Service Helper Name Role Phone Amy Pickett MD Primary Care Pro vider Reason for Visit * Reason Onset Date Comments Med Refill 08/06/2024 Encounter Details Date Type Department Care Team ([facility] st Contact Info) Description 08/06/2024 Telephone [facility] MEDICINE 230 [place], [place] [phone] Amy Pickett MD [address] [place], [place] [phone] Med Refill Social History Tobacco Use Types [...] 0.083% nebulizer solution To be sent to: [facility]/pharmacy #[id number] - [address] documented in this encounter Plan of Treatment Upcoming Encounters Date Type Department Care Team ([facility] st Contact Info) Description 05/31/2025 11:00 AM EST Office Visit [address] [address] 06/10/2025 1:45 PM EST Office Visit [facility] MED[facility]INE 230 [place] [address] Annmarie Ellington MD 230 [place], [place] [phone] documented as of this encounter Visit Diagnoses Not on filedocumented in this encounter Additional Health Concerns Assessment Noted Time PHQ-9 Depression Total Score: 10 024 9:41 AM EDT documented as of this encounter Care Teams Food Service Helper Relationship Specialty Start Date End Date Amy Pickett MD [address] [place] [address] PCP - General Internal Medicine 04/07/23 documented as of this encounter
--- OUTSIDE RECORDS SUMMARY | 2025-05-18 07:01 | XMS_ITS | Clinical Summary ---
Author Organization [employer] Address 75 [facility] 7t [place] [address] Care Team Providers Care Dog Trainer Name Role Phone Amy Pickett [...] 022 Active Nebulizers (Comp-Air Elite Compact Neb) [facility] Active Blood Pressure Monitor kit 1 each [...] vomiting. 60 tablet 1 023 Active pancrelipase, Wjw-Crgb-Xiae, (Creon) 0710-8861 units capsule Take 1 capsule by mouth [...] oxyCODONE (Roxicodone) 15 MG immediate release tabletIndicatio ns:HEALTH ECONOMIST checked 06/13/22 Take 1 tablet (15 mg) [...] oxyCODONE (Roxicodone) 15 MG immediate release tabletIndicatio ns:HEALTH ECONOMIST checked 06/13/22 Take 1 tablet (15 mg) [...] recommended. -Supportive care advised. -Isolation recommendations discussed. 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 Maldonado Continue with Combivent inhaler Claudication [...] Injections 11/2022 Encouraged stretching [facility] Continue CUSTOM FEED CORN OPERATOR at this time. Will perform random [...] root compression . Seen by Neurosurgery at [facility], note pending Referred to Pain Management [...] Utox pos cocaine. Confirmatory testing sent. See assistant teacher. Assessment & Plan (09/28/2024 2:02 PM EDT): [...] C7 fracture seen on CT scan at [facility] 10/28/23 He participated fully in group [...] C7 fracture seen on CT scan at [facility] 10/28/23 He participated fully in group [...] Injections 11/2022 Encouraged stretching Will refer to [facility] physical therapy Continue CUSTOM FEED CORN OPERATOR at this time. Will perform random [...] lumbar pain. Encouraged stretching Will refer to [facility] Continue CUSTOM FEED CORN OPERATOR at this time. Will perform random [...] Department Care Team Description 05/05/2025 Orders Only [facility] MEDICINE [address] [place] [address] Amy Pickett MD 05/05/2025 Telephone [facility] [place] [address] Amy Pickett MD CONCERNS WITH RMV FORM AND MED LIST 05/04/2025 Refill [facility] [address] [place] [address] Amy Pickett MD 05/03/2025 11:00 AM EDT Office Visit [facility] [address] [place] [address] Holly Wills, KENDRA Spondylosis of cervical spine (Primary Dx); 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 05/03/2025 Refill [facility] [address] [place] [address] Amy Pickett MD Essential hypertension 05/03/2025 Travel 05/02/2025 Refill [facility] [address] [place] [address] Amy Pickett MD 04/21/2025 Orders Only [facility] [address] [place] [address] Amy Pickett MD 04/21/2025 Telephone [facility] [address] [place] [address] Amy Pickett MD FYI 04/21/2025 Refill [facility] [address] [place] [address] Amy Pickett MD Chronic pain of both knees; Chronic low back pain, unspecified back pain laterality, unspecified whether sciatica present 04/21/[address] [address] Amy Pickett MD Nurse Triage 04/15/[address] [address] Amy Pickett MD Durable Medical Equipment 04/12/[address] [address] Amy Pickett MD Transfer PCP request 04/11/[address] [address] Amy Pickett MD 04/06/[address] [address] Amy Pickett MD Durable Medical Equipment 03/31/2025 Orders Only [facility] External Provider, [facility] 03/29/2025 9:45 AM EDT Clinical Support [address] [address] 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 RN Chronic right shoulder pain (Primary Dx) 03/29/2025 Telephone [facility] [address] [place] [address] 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 RN 03/29/2025 Orders Only [address] [address] Amy Pickett MD Chronic right shoulder pain (Primary Dx) 03/29/2025 Telephone [facility] [address] [place] [address] 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 RN 03/29/2025 Travel 03/24/2025 Refill [facility] [address] [place] [address] 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 RN Chronic pain of both knees; Chronic low back pain, unspecified back pain laterality, unspecified whether sciatica present 03/24/2025 Refill [facility] [address] [place] [address] Amy Pickett MD Moderate persistent asthma without complication 03/24/2025 Telephone [facility] [address] [place] [address] Amy Pickett MD Med Refill 03/22/2025 Orders Only [facility] External Provider, [facility] 03/18/2025 Orders Only [facility] [address] [place] [address] Amy Pickett MD 03/18/2025 Telephone [facility] [address] [place] [address] Amy Pickett MD Change PCP 03/18/2025 Telephone [facility] [address] [place] [address] 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 RN 03/17/2025 Orders Only [facility] [address] [place] [address] Amy Pickett MD 03/17/2025 Telephone [facility] [address] [place] [address] Amy Pickett MD Nurse Triage 03/17/2025 Telephone [facility] [address] [place] [address] Amy Pickett MD Medication Question 03/16/2025 Telephone [facility] [address] [place] [address] 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 RN 03/16/2025 Telephone [facility] [address] [place] [address] Amy Pickett MD FYI 03/08/2025 Orders Only [facility] [address] [place] [address] Amy Pickett MD 03/08/2025 Telephone [facility] [address] [place] [address] 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, DARIANA 03/05/2025 Refill [facility] [address] [place] [address] Amy Pickett MD Chronic low back pain, unspecified back pain laterality, unspecified whether sciatica present 03/03/2025 Telephone [facility] [address] [place] [address] Amy Pickett MD Durable Medical Equipment 03/03/2025 Telephone [facility] [address] [place] [address] Amy Pickett MD call back requesting 03/01/2025 9:10 AM EDT Clinical Support [facility] [address] [place] [address] 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, RN longterm 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 03/01/2025 Orders Only [facility] [address] [place] [address] Amy Pickett MD 03/01/2025 Telephone [facility] [address] [place] [address] 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 RN 03/01/2025 Travel 02/24/2025 Refill [facility] [address] [place] [address] 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, mailmaster pain of both knees; Chronic low back pain, unspecified back pain laterality, unspecified whether sciatica present 02/24/2025 Telephone [facility] [address] [place] [address] Amy Pickett MD med 02/24/2025 Telephone [facility] [address] [place] [address] Amy Pickett MD Med Refill 02/19/2025 Refill [facility] [address] [place] [address] Amy Pickett MD from Last 3 Months [...] Description 05/31/2025 11:00 AM EST Office Visit [facility] [address] [place] [address] 06/10/2025 1:45 PM EST Office Visit [facility] [address] [place] [address] Annmarie Ellington MD [address] [place] [address] Health Maintenance Due Date Last Done Comments [...] DRUG SCREEN Routine 05/03/2025 12:35 PM EDT 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 04/12/26 Internal Pass Control Holly Wills AIRCRAFT LAYOUT WORKER POINT OF CARE TEST ENTER/EDIT ORDERABLES Final Result * MR Cervical Spine w/o Contrast (04/01/2025 11:36 AM EDT) Anatomical Region Laterality Modality Spine, C-spine Magnetic Resonan ce 04/01/2025 11:3 6 AM EDT Narrative 04/01/2025 11:37 AM EDT [place] [address] Magnetic Resonance Report Signed Patient: Zani Welch MR# : [id number] : 1965 Acct:[id number] Age/Sex: 59 / M ADM Date: 03/31/25 Loc: HO.MRI Attending Dr: Juan David MIRANDA Ordering Physician: Rosangela Cole CNP Date of Service: 03/31/25 Procedure(s): MR cervical spine wo con Accession Number(s): [id number] cc: Rosangela Cole CNP; Amy Pickett MD [...] stenosis. C5-C6: Small posterior disc protrusion. Mild lqeh-rnkfufm-qthg-right neural foraminal narrowing. No significant central canal stenosis. C6-C7: Fsvkk-gt-wjbphsxo posterior disc protrusion. Moderate bilateral neural foraminal [...] 04/01/25 1137 DD/ 1136 TD/TT: 04/01/25 1136 Disability Services Coordinator: Procedure Note Donotuseinterpreter, Image - 04/01/2025 [place] [address] Magnetic Resonance Report Signed Patient: Zain Welch LMR# : [id number] : 1965Acct:[id number] Age/Sex: 59 / MADM Date: 03/31/25 Loc: HO.MRI Attending Dr: Juan David MIRANDA Ordering Physician: Rosangela Cole CNP Date of Service: 03/31/25 Procedure(s): MR cervical spine wo con Accession Number(s): [id number] cc: Rosangela Cole CNP; Amy Pickett MD [...] stenosis. C5-C6: Small posterior disc protrusion. Mild naji-aqfatgx-qkcd-right neural foraminal narrowing. No significant central canal stenosis. C6-C7: Ngxlt-eg-yooxcafa posterior disc protrusion. Moderate bilateral neural foraminal [...] 04/01/25 1137 DD/ 1136 TD/TT: 04/01/25 1136 Disability Services Coordinator: [facility] External Provider IMG MRI PROCEDURES Final Result * XR Pelvis 1-2 Views (03/22/2025 1:32 PM EDT) Anatomical Region Laterality Modality Body, Pelvis Radiographic Maxine ging 03/22/2025 1:32 PM EDT Narrative 03/22/2025 1:45 PM EDT [address] [address] XRay Report Signed Patient: Zain Welch MR# : [id number] : 1965 Acct:[id number] Age/Sex: 59 / M ADM Date: 03/22/25 Loc: LAYLA Attending Dr: Salvador Elliott MD Ordering Physician: Salvador Elliott MD Date of Service: 03/22/25 Procedure(s): XR pelvis 1-2V Accession Number(s): [id number] cc: Salvador Elliott MD; Amy Pickett MD [...] 03/22/25 1343 DD/ 1332 TD/TT: 03/22/25 1335 Disability Services Coordinator: Procedure Note Donotuseinterpreter, Image - 03/22/[address] [address] XRay Report Signed Patient: Zain Welch LMR# : [id number] : 1965Acct:[id number] Age/Sex: 59 / MADM Date: 03/22/25 Loc: LAYLA Attending Dr: Salvador Elliott MD Ordering Physician: Salvador Elliott MD Date of Service: 03/22/25 Procedure(s): XR pelvis 1-2V Accession Number(s): [id number] cc: Salvador Elliott MD; Amy Pickett MD [...] 03/22/25 1343 DD/ 1332 TD/TT: 03/22/25 1335 Disability Services Coordinator: [facility] External Provider IMG XR PROCEDURES Edited Result - Final * Drug Monitoring, Cocaine Metabolite, Quantitative, Urine (03/01/2025 9:32 AM EDT) Benzoylecgonine [address] [facility] Comment:CUTOFF 100NG/MLPERFO RMING SITE:[facility], [address] [place], [place] [phone] Weatherization Technician: MICHELLE GAUTAM MD, CLIA:[id number] Cocaine Comments SEE NOTE [facility] [...] their analyticalperformance characteristics have been determined by [employer]. It has not been cleared orapproved by the FDA. This assay has been validated pursuantto the CLIA regulations and is used for clinical purposes.Healthcare Providers needing Interpretation assistance,please contact us at [phone] ( ) M-F,8am to 10pm EST 03/01/2025 9:32 AM EDT 03/01/2025 1:39 PM EDT us Amy Berry MD LAB URINE ORDERAB LES Final Result Performing Organization Address [facility]/ZIP Co de Phone Number [facility] [address] [place] [phone] * (ABNORMAL) Hepatitis C Antibody with Reflex to HCV, RNA, Quantitative, Real- Time PCR (09/29/2024 3:37 PM EDT) Hepatitis C Antibody Reactive( A) Nonreactive [facility] Comment:Presumptive evidence of antibodies to HCV. Blood Venous blood specimen / Unknown 09/29/2024 3:37 PM EDT 09/29/2024 3:38 PM EDT us Brent Fischer MD LAB BLOOD ORDERABL ES Final Result Performing Organization Address [facility]/ZIP Co de Phone Number [facility] [address] [place] [phone] * HIV-1/2 Antigen and Antibodies, Fourth Generation, with Reflexes (09/29/2024 3:37 PM EDT) HIV AB/AG Nonreactive Nonreactive [facility] Comment:HIV-1 p24 Ag and/or HIV-1/HIV-2 Ab not detected.A test result that is nonreactive does not exclude thepossibility of exposure to or infection with HIV-1 and/orHIV-2. Nonreactive results in this assay for individualswith prior exposure to HIV-1 and/or HIV-2 may be due toantigen and antibody levels that are below the limit ofdetection of this assay.The [employer] HIV Ag/Ab Combo assay result andsupplemental assay results should be interpreted inconjunction with the patient's clinical presentation,history and other laboratory results. If the results areinconsistent with clinical evidence, additional testing issuggested to confirm the result. Blood Venous blood specimen / Unknown 09/29/2024 3:37 PM EDT 09/29/2024 3:38 PM EDT us Brent Fischer MD LAB BLOOD ORDERABL ES Final Result [facility] [address] [place] [phone] * (ABNORMAL) Lipid Panel, Standard (09/29/2024 3:37 PM EDT) Triglycerides 155(H) <150 mg/dL [facility] Comment:Desirable Triglyceri de: less than 150 mg/dLBorderline High Triglyceride 150-199 mg/dLHigh Triglyceride: 200-499 mg/dLVery High Triglyceride: greater than or equal to 5OO mg/dL Cholesterol 211(H) <200 mg/dL [facility] Comment:Desirable Cholestero l: less than 200 mg/dLBorderline High Cholesterol: 200-239 mg/dLHigh Cholesterol: greater than 239 mg/dL LDL Cholesterol Calculated 131(H) <100 mg/dL [facility] Comment:Desirable LDL: less than 100 mg/dLNear Optimal/Above Optimal LDL: 110- 129 mg/dLBorderline High LDL: 130-159 mg/dLHigh LDL: 160-189 mg/dLVery High LDL: greater than or equal to 190 mg/dL HDL Cholesterol 49 >40 mg/dL [facility] Comment:Desirable HDL: great er than 40 mg/dL Note: This HDL assay may give artificially low results in patients with liver disease. Blood Venous blood specimen / Unknown 09/29/2024 3:37 PM EDT 09/29/2024 3:38 PM EDT us Amy Berry MD LAB BLOOD ORDERAB LES Final Result [facility] [address] [place] [phone] * Hm Colonoscopy (01/06/2018 8:00 AM EDT) us Historical Provider HEALTH MAINTENANCE Final Result from Last 3 Months or Most Recently Relevant to Health Maintenance Insurance [address] [facility] [address] [address] [facility] < 65 RUBEN JAIMES [id number] [address] [address] Care Teams Dog Trainer Relationship Specialty Start Date End Date Amy Pickett MD [address] [place] [phone] PCP - General Internal Medicine 04/07/23
--- OUTSIDE RECORDS SUMMARY | 2025-05-18 07:01 | XMS_ITS | Encounter Summary ---
Author Organization [employer] Address [address] [facility] [address] 7t [place] [address] Care Team Providers Care Helminthologist Name Role Phone Amy Pickett MD Primary Care Pro vider Encounter Details Date Type Department Care Team (Late st Contact Info) Description 06/24/2024 Orders Only [facility] [address] [place] [address] Provider, MD Bryan Social History Tobacco Use [...] 05/31/2025 11:00 AM EST Office Visit [facility] [address] [place] [phone] 06/10/2025 1:45 PM EST Office Visit [address] [address] Annmarie Ellington MD [address] [place] [phone] documented as of this encounter Procedures Procedure [...] documented as of this encounter Care Teams Helminthologist Relationship Specialty Start Date End Date Amy Pickett MD [address] [place] [phone] PCP - General Internal Medicine 04/07/23 documented as of this encounter
--- OUTSIDE RECORDS SUMMARY | 2025-05-18 07:01 | XMS_ITS | Encounter Summary ---
Author Organization [employer] Address 75 [facility] 7t [place] [address] Care Team Providers Care Allied Health Instructor Name Role Phone Elise Glover CHIMNEY CONSTRUCTION SUPERVISOR Primary Care Provider Amy Ware MD Primary Care Pro vider Reason for Visit * Reason Onset Date Comments triage 08/22/2022 Encounter Details Date Type Department Care Team (Late st Contact Info) Description 08/22/2022 Telephone [facility] [address] [place] [phone] Elise Glover FNP triage Social History Tobacco [...] EST Office Visit [facility] [address] [place] [phone] 06/10/2025 1:45 PM EST Office Visit [facility] [address] [place] [address] Annmarie Ellington MD [address] [place], [place] [phone] documented as of this encounter Visit Diagnoses Not on filedocumented in this encounter Care Teams Allied Health Instructor Relationship Specialty Start Date End Date Elise Glover FNP PCP - General Family Medicine 07/09/22 04/06/23 Amy Pickett MD 230 [place], [place] [phone] PCP - General Internal Medicine 04/07/23 documented as of this encounter
--- OUTSIDE RECORDS SUMMARY | 2025-05-18 07:01 | XMS_ITS | Encounter Summary ---
Author Organization [employer] Address [address] [facility] 7 [place] [address] Care Team Providers Care Dual Rate Supervisor Name Role Phone Amy Pickett MD Primary Care Pro vider Reason for Visit * Reason Onset Date Comments Med Refill 10/27/2024 Encounter Details Date Type Department Care Team ([facility] st Contact Info) Description 10/27/2024 Telephone [facility] MEDICINE [address] [place], [place] [phone] Amy Pickett MD [address] [place] [address] Med Refill Social History Tobacco Use Types [...] be sent to: [facility]/pharmacy #[id number] documented in this encounter Plan of Treatment Upcoming Encounters Date Type Department Care Team (Late st Contact Info) Description 05/31/2025 11:00 AM EST Office Visit [facility] MEDICINE [address] [place] [address] 06/10/2025 1:45 PM EST Office Visit [facility] MEDICINE [address] [place] [phone] Annmarie Ellington MD [address] [place] [address] documented as of this encounter Visit Diagnoses Not on filedocumented in this encounter Additional Health Concerns Assessment Noted Time PHQ-9 Depression Total Score: 10 024 9:41 AM EDT documented as of this encounter Care Teams Dual Rate Supervisor Relationship Specialty Start Date End Date Amy Pickett MD [address] [place] [phone] PCP - General Internal Medicine 04/07/23 documented as of this encounter
--- OUTSIDE RECORDS SUMMARY | 2025-05-18 07:01 | XMS_ITS | Encounter Summary ---
Author Organization [employer] Address 75 [facility] 7 [place] [address] Care Team Providers Care Metal Stamper Name Role Phone Amy Pickett MD Primary Care Pro vider Reason for Visit * Reason Onset Date Comments FYI 04/21/2025 Encounter Details Date Type Department Care Team ([facility] st Contact Info) Description 04/21/2025 Telephone [facility] MEDICINE [address] [place], [place] [phone] Amy Pickett MD 230 [place] [address] FYI Social History Tobacco Use Types Packs/Day [...] Office Visit [facility] MEDICINE [address] [place] [address] 06/10/2025 1:45 PM EST Office Visit [facility] MEDICINE [address] [place] [address] Annmarie Ellington MD 230 [place] [address] documented as of this encounter Visit Diagnoses Not on filedocumented in this encounter Additional Health Concerns Assessment Noted Time PHQ-9 Depression Total Score: 0 11/25/19 25 2:10 PM EDT documented as of this encounter Care Teams Metal Stamper Relationship Specialty Start Date End Date Amy Pickett MD [address] [place] [phone] PCP - General Internal Medicine 04/07/23 documented as of this encounter
--- OUTSIDE RECORDS SUMMARY | 2025-05-18 07:01 | XMS_ITS | Encounter Summary ---
Author Organization [employer] Address [address] [place] [address] 7t [place] [address] Care Team Providers Care Director Of Category Management Name Role Phone Elise Glover BLOCK ENGRAVER Primary Care Provider Amy Ware MD Primary Care Pro vider Encounter Details Date Type Department Care Team (Late st Contact Info) Description 01/14/2023 Orders Only [facility] MEDICINE [address] [place] [phone] Elise Glover FNP Social History Tobacco Use [...] Description 05/31/2025 11:00 AM EST Office Visit [address] [phone] 06/10/2025 1:45 PM EST Office Visit [address] [phone] Annmarie Ellington MD [address] [place] [address] documented as of this encounter Visit Diagnoses Not on filedocumented in this encounter Additional Health Concerns Assessment Noted Time PHQ-9 Depression Total Score: 24 023 10:05 AM EDT documented as of this encounter Care Teams Director Of Category Management Relationship Specialty Start Date End Date Elise Glover FNP PCP - General Family Medicine 07/09/22 04/06/23 Amy Pickett MD [address] [place] [phone] PCP - General Internal Medicine 04/07/23 documented as of this encounter
--- OUTSIDE RECORDS SUMMARY | 2025-05-18 07:01 | XMS_ITS | Encounter Summary ---
Author Organization [employer] Address 75 [facility] 7 [place] [address] Care Team Providers Care Telecommunications Engineer Name Role Phone Amy Pickett MD Primary Care Pro vider Reason for Visit * Reason Onset Date Comments FYI 03/16/2025 Encounter Details Date Type Department Care Team ([facility] st Contact Info) Description 03/16/2025 Telephone [facility] MEDICINE [address] [place], [place] [phone] Amy Pickett MD [address] [place], [place] [phone] FYI Social History Tobacco Use Types Packs/Day [...] who reports pt currently having surgery at [facility] through [facility] to get SNS device removed so that he can have MRI done as he couldn't have MRI with the implant and he has excruciating 10/10 shoulder pain and can't lift his arm. Advised to call [facility] centralized scheduling to r/s MRI now that implant is being removed. Texted her their phone number via [email or web address] text at her request. She reports that [...] group appt be changed to a normal FILLER MIXER appt. Seeing as though he is having [...] anything out of it. Would rather do FILLER MIXER visits. Informed I would send message regarding this. * Telephone Encounter - Jesusita Castellanos - 03/16/2025 3:01 PM EDT Tc from [facility] stating specialist pritesh to give him an emergency surgery to get the implant out. So now pt is able to do MRI. documented in this encounter Plan of Treatment Upcoming Encounters Date Type Department Care Team (Late st Contact Info) Description 05/31/2025 11:00 AM EST Office Visit [facility] MEDICINE [address] [place] [address] 06/10/2025 1:45 PM EST Office Visit [facility] MEDICINE [address] [place] [address] Annamrie Ellington MD [address] [place] [address] documented as of this encounter Visit Diagnoses Not on filedocumented in this encounter Additional Health Concerns Assessment Noted Time PHQ-9 Depression Total Score: 0 11/25/19 2:10 PM EDT documented as of this encounter Care Teams Telecommunications Engineer Relationship Specialty Start Date End Date Amy Pickett MD [address] [place] [address] PCP - General Internal Medicine 04/07/23 documented as of this encounter
--- NOTE | 2025-05-18 07:31 | MHC.OFFVIS ---
Vital Signs 05/18/25 07:39 Height 5 ft 4 in Weight 180 lb BMI 30.9 BP 144/90 H Blood Pressure Location Lt brachial Position Sitting Respiration 17 Pulse 92 Pulse Source Pulse Oximeter Pulse Oximetry (%) 99 Oxygen Delivery Method Room Air Intake Visit Reasons: 6 weeks Medical Territory Manager Required: No Accompanied by: Other Relationship Allergies cat dander (CATS) Allergy (Unknown, Verified 05/18/25 07:42) UNKNOWN dog dander (DOGS) Allergy (Unknown, Verified 05/18/25 07:42) UNKNOWN pollen extracts (POLLEN) Allergy (Unknown, Verified 05/18/25 07:42) UNKNOWN tree and shrub pollen Allergy (Verified 05/18/25 07:42) sneeze ibuprofen Adverse Reaction (Verified 05/18/25 07:42) causes stomach to bleed HPI Comments Details: Zain is a 59-year-old male patient with a past medical history of migraine, depression, hypertension, osteoarthritis, asthma, COPD, STEPHON on CPAP who was seeing me at the [facility] neurology clinic for chronic headache. He is here today for his occipital nerve blocks and trigger point injections. To review his history: He has a longstanding history of STEPHON which has likely contributed to his existing migraine history. He also has a history of medication overuse headaches of sumatriptan. He does have an occipital neuralgia component to his headaches and he has responded well to occipital nerve blocks and trigger point injections. His acute therapy has been slightly more challenging with some resistance to GEPANTs in the past. Triptans are not favorable due to his history of coronary artery disease. At our most recent appointment at [facility], he reported a fall and related shoulder pain. The patient reports persistent right shoulder pain, exacerbated by movement and associated with numbness in the right arm. The patient has a history of cervical disc herniation with mild central stenosis and bilateral foraminal stenosis at C6-C7, which was identified in an MRI conducted in 2023. The patient did not follow up with neurosurgery as recommended after the MRI, and symptoms have progressed to include pain radiating to the left arm. The patient also reports discontinuation of CPAP use due to an incident of vomiting through the mask. The patient expresses concern about the risk of aspiration and is considering alternative mask options. His general accountant manages his Pap therapy. A recent C-spine MRI showed cervical disc disease and he also has tendon tearing to his right shoulder. He will be undergoing surgery for both his shoulder and his neck with [facility]. Unfortunately, his headaches have increased likely due to his shoulder and neck issues and he is now experiencing migraine-type headaches 5-7 days per week lasting at least 4 hours each day. He has a accompanying nausea but denies any light or sound sensitivity. He will occasionally have some dizziness. He is in the past responded well to as-needed hydroxyzine which was intended to reduce tension related to anxiety and stress that triggered his headaches. 03/31/2025 shoulder MRI IMPRESSION: 1. Complete supraspinatus tendon tear with 10 mm retraction. 2. Partial subscapularis tendon tear near its insertion. 3. Biceps tendon tenosynovitis without tear. 03/31/25 c-spine MRI FINDINGS: Mild expected postsurgical straightening of the cervical lordosis. Fusion hardware at C5-C6 appears intact by MR. No acute fracture or acute malalignment. Prevertebral and paravertebral soft tissues are unremarkable. Mild multilevel disc desiccation and disc space narrowing. Visualized portions of the posterior fossa are unremarkable. Individual levels: C2-C3: Small left eccentric disc protrusion. No significant central canal stenosis or neural foraminal narrowing. C3-C4: No significant central canal stenosis or neural foraminal narrowing. C4-C5: Small posterior disc protrusion with mild bilateral neural foraminal narrowing. No central canal stenosis. C5-C6: Small posterior disc protrusion. Mild odym-piuheub-jpkm-right neural foraminal narrowing. No significant central canal stenosis. C6-C7: Xbhpu-se-gfzqxufx posterior disc protrusion. Moderate bilateral neural foraminal narrowing. Minimal central canal narrowing. C7-T1: Small left eccentric disc protrusion with mild left neural foraminal narrowing. Impression: Postsurgical and degenerative changes as detailed. [facility] Medical History Ganglion cyst Chest pain Nicotine dependence, cigarettes, uncomplicated Nausea and vomiting Dyspnea Photophobia Headache Syncope Dysphagia Seizure Lipoma of back STEPHON (obstructive sleep apnea) COPD (chronic obstructive pulmonary disease) Post herpetic neuralgia Multiple lipomas Osteoarthritis Gout History of peptic ulcer disease Hx of irritable bowel syndrome Chronic back pain Hx of insomnia History of panic attacks History of anxiety History of depression Asthma High cholesterol Hypertension Urinary retention Enlarged prostate Arthritis Slow urinary stream Marijuana use Alcohol abuse H/O ulcer disease Left flank pain Trochanteric bursitis, left hip Epidermal cyst Abdominal wall bulge Esophageal dysphagia Esophageal spasm Short frenulum of penis Balanitis Elevated blood pressure reading in office with diagnosis of hypertension Thalamic pain syndrome Abnormal loss of weight Painful orthopaedic hardware Pain in unspecified toe(s) Incisional pain Surgical History S/P placement of nerve stimulator H/O neck surgery Hx of arthroscopy of left knee H/O breast surgery S/P excision of lipoma History of bunionectomy History of cystoscopy History of colonoscopy History of esophagogastroduodenoscopy (EGD) Family History Family/Other Cancer Diabetes AIDS Brother Diabetes Myocardial infarction Father Enlarged prostate Mother Diabetes Asthma Social History Are you a primary resident care associate to a significant other at home: No Do you presently have visiting nurse or other home services: No Alcohol intake: never Patient Tobacco Use Status: Current everyday Tobacco user Cigarettes Per Day: 4 Years Smoked: (onset 16yo, 1ppd x 42yrs, now 1/2ppd - 40pyh) Substance Use Type: Marijuana service: No Current occupational status: unemployed Review of Systems Const All systems reviewed & are unremarkable except as noted in HPI and below Physical Exam Vital Signs: Last Vital Signs Pulse 92 05/18/25 07:39 Resp 17 05/18/25 07:39 BP 144/90 H 05/18/25 07:39 Pulse Ox 99 05/18/25 07:39 Oxygen Delivery Method Room Air 05/18/25 07:39 BMI result Body Mass Index 30.9 Const General: cooperative, healthy appearing, comfortable, no acute distress and well developed Orientation/consciousness: patient oriented x3 HEENT Head: Yes normal to inspection, Yes No palpable skull fracture present, Yes normocephalic and Yes atraumatic Eyes General: appearance normal, both eyes and all related structures Neck Neck: Yes normal visual inspection, Yes full ROM, Yes no lymphadenopathy, Yes no meningeal signs, Yes trachea midline, Yes supple, No anterior neck swelling and No tender Chest Chest palpation & inspection: normal inspection of the chest and normal palpation of entire chest wall Resp Effort & Inspection: normal respiratory effort and able to speak in complete sentences Auscultation: clear to auscultation bilaterally Cardio Jugular venous distension: no JVD Heart sounds: S1 normal heart sound present and S2 normal heart sound present GI Inspection: Yes normal to inspection Palpation (GI): Soft to palpation, not firm, nontender, no guarding and not rigid General: Yes no CVA tenderness Back/Spine/Pelvis Back: no CVA tenderness and No back tenderness Skin General skin exam: no rashes or lesions noted, elasticity normal and turgor normal Neuro General: patient oriented x3, gait normal, tone normal, moves all extremities, Normal light touch and pain sensation, no meningeal signs, no focal motor deficits and CN's II-XI intact bilaterally Extrem General: Yes normal to inspection, Yes full ROM and Yes capillary refill normal Psych Appearance: grossly normal, well kempt and not disheveled Assessment & Plan Assessment & Plan (1) Migraine without aura and without status migrainosus, not intractable: Code(s): G43.009 - Migraine without aura, not intractable, without status migrainosus Category: Medical Plan: . (2) Myofascial pain: Code(s): M79.18 - Myalgia, other site Category: Medical Plan: . (3) Preoperative cardiovascular examination: Code(s): Z01.810 - Encounter for preprocedural cardiovascular examination Category: Medical (4) Primary hypertension: Code(s): I10 - Essential (primary) hypertension Category: Medical (5) Occipital neuralgia: Code(s): M54.81 - Occipital neuralgia Category: Medical Plan: . (6) Right shoulder pain: Code(s): M25.511 - Pain in right shoulder Category: Medical Plan: . (7) Chronic daily headache: Code(s): R51.9 - Headache, unspecified Category: Medical Plan: . (8) Migraines: Code(s): G43.909 - Migraine, unspecified, not intractable, without status migrainosus Category: Medical Plan: . Plan Zain is a 59-year-old male patient with a past medical history of migraine, depression, hypertension, osteoarthritis, asthma, COPD, STEPHON on CPAP who was seeing me at the [facility] neurology clinic for chronic headache. He is here today for his occipital nerve blocks and trigger point injections. His procedures went well without any complications. His recent c-spine MRI stable but right shoulder MRI shows tearing. He is being followed by [facility] with plans for surgical intenvention. He can return in 6 weeks for another round of injections for management of his headaches and myofacial pain. In the interim, I would like to start him on a once monthly anti CGRP injectable as his migraines have been worsening. That being said, his blood pressure has improved since starting amlodipine. We will continue to monitor this with initiation of the Ajovy. -start once monthly Ajovy injection -follow up in 6 weeks or sooner if needed at which time we can perform additional nerve block and trigger point injections -hydroxyzine 25 mg as needed Orders: Orders AMB Trigger Point Injection Today G43.009 - Migraine without aura, not intractable, without status migrainosus, M79.18 - Myalgia, other site AMB Nerve Block Today G43.009 - Migraine without aura, not intractable, without status migrainosus, M79.18 - Myalgia, other site Medications: New fremanezumab-vfrm (Ajovy) 225 mg (1.5 mL) subcut QMONTH 1.5 mL 5RF hydroxyzine HCl 25 mg PO BID PRN 60 tabs 3RF anxiety 30 days bupivacaine (PF) 10 mL Infiltration ONCE 10 mL 0RF G43.009 - Migraine without aura, not intractable, without status migrainosus, M79.18 - Myalgia, other site bupivacaine (PF) 10 mL Infiltration ONCE 10 mL 0RF G43.009 - Migraine without aura, not intractable, without status migrainosus, M79.18 - Myalgia, other site Coding Level of Care Code Est Pt Level 4 (60698) Diagnoses Migraine without aura and without status migrainosus, not intractable G43.009 Myofascial pain M79.18 Preoperative cardiovascular examination Z01.810 Primary hypertension I10 Occipital neuralgia M54.81 Right shoulder pain M25.511 Chronic daily headache R51.9 Migraines G43.909
[2025-05-18 07:39] VITALS: BP 144/90; PULSE 92; RESP 17; O2SAT 99; BMI 30.9
== END 2025-05-18 08:09 | disposition home or self-care (01) ==
LOC: HO.HSM 06:58
PROVIDERS: PCP Student in an Organized Health Care Education/Training Program; Visit Provider Nurse Practitioner
DX: G43.009 Migraine without aura, not intractable, without status migrainosus (principal); M79.18 Myalgia, other site; Z01.810 Encounter for preprocedural cardiovascular examination; I10 Essential (primary) hypertension; M54.81 Occipital neuralgia; M25.511 Pain in right shoulder; R51.9 Headache, unspecified; G43.909 Migraine, unspecified, not intractable, without status migrainosus
CPT/HCPCS: 20553; 64405

== ENCOUNTER → 2025-05-18 13:54 | Outpatient (REF) | payer OTHER, SELFPAY ==
--- NOTE | 2025-05-18 13:58 | CA_ITS ---
Transthoracic Echocardiogram Patient (Last, First, Middle): Zain Welch L Gender: Male Date of : 1965 Age: 59 Procedure Date: 05/18/2025 Procedure Type: Transthoracic Echocardiogram Location: OP Height: 162.56 cm Weight: 81.65 kg BSA: 1.87 m2 Heart Rate: bpm BP: 144 / 90 mmHg Service Bar Cashier: CHARLEE Referring MD: Rayshawn Shaw MD Knotter Hand: Kayode Kwan MD Symptoms: R07.9 - Chest pain, unspecified Study Quality: Adequate ECG Rhythm: Sinus Conclusions: - 1. Normal LV ejection fraction of 55-60% with grade I diastolic dysfunction 2. Normal cardiac valvular dopplers 3. No pericardial effusion Findings Left Ventricle Normal left ventricular size, thickness, and systolic function. The visually estimated ejection fraction is between 55-60%. Spectral Doppler is indicative of an impaired relaxation filling pattern. E/E prime ratio is <8, consistent with normal filling pressures. Evidence suggests grade I (mild) diastolic dysfunction. Right Ventricle Normal right ventricular cavity size and systolic function. Atria Both atria are normal in size. There is no evidence of interatrial shunt. Aortic Valve Normal aortic valve structure and function. There is no aortic valve stenosis. There is no aortic valve regurgitation. Mitral Valve Normal mitral valve structure and function. There is trace mitral valve regurgitation. There is no mitral valve stenosis. Pulmonic Valve The pulmonic valve is likely normal. There is trace pulmonic valve regurgitation. Tricuspid Valve Normal tricuspid valve structure. There is trace tricuspid valve regurgitation. Tricuspid regurgitation envelope is inadequate for calculation of right ventricular systolic pressure. Normal right atrial pressure. There is no evidence of pulmonary hypertension. Great Vessels All visible segments of the aorta are normal in size. The pulmonary artery was not well visualized. There is no dilatation of the ascending aorta measuring 3.30 cm. Venous The inferior vena cava is normal in size and collapses greater than 50% with inspiration. Pericardium/Pleural There is no evidence of pericardial effusion. Prior Study Comparison No prior study available for comparison. Measurements 2D Linear Measurements IVSd: 1.03 0.6-0.9/0.6-1.0 cm LVIDd: 4.82 3.9-5.3/4.2-5.9 cm LVIDd Index: 2.58 2.4-3.2/2.2-3.1 cm/m2 LVIDs: 3.18 2.0-3.6 cm LVPWd: 1.14 0.7-1.1 cm LA Diam: 3.80 2.7-3.8/3.0-4.0 cm LAIDs Index: 2.03 1.5-2.3 cm/m2 LV Mass: 238.73 67-162/88-224 g LV Mass Index: 127.67 43-95/49-115 g/m2 LVOT Diam: 2.10 3.0+(-)1.3 cm 2D Systolic Function EF 4C: 57.20 >55% EF 2C: 53.10 >55% EF BiP: 55.40 >55% Mitral Valve MV Pk E: 0.76 MV PK A: 0.77 MV Decel Time: 191.00 E/A: 1.00 E'Lateral: 10.20 E'Medial: 7.18 E/E' Med: 10.60 E/E' Lat: 7.50 PHT: 56.00 MVA PHT: 3.93 Decel Stephenson: 4.00 Aortic Valve AoV Pk Rome: 1.38 AoV Mn Rome: 0.95 AoV VTI: 0.30 AoV Pk Grad: 8.00 Aov Mn Grad: 4.00 CHIO Cont.VTI: 2.53 LVOT LVOT Pk Rome: 0.99 LVOT Mn Rome: 0.65 LVOT VTI: 0.22 LVOT Pk Grad: 4.00 LVOT Mn Grad: 2.00 LVOT Diam: 2.10 LVOT Area: 3.46 Diastolic Function MV Pk E: 0.76 MV Pk A: 0.77 E/A: 1.00 E'Medial: 7.18 E/E' Med: 10.60 E' Laterial: 10.20 E/E' Lat: 7.50 Right Ventricle TAPSE (mm): 22.50 TVS' Rome: 9.57 Tricuspid Valve RA Press: 3.00 Great Vessels Aorta Sinus of Valsalva: 3.41 2.0-3.5 cm Ao Asc: 3.30 2.1-3.4 cm Ao Arch: 3.20 Pulmonary Veins Pulm Vein S/D 1.20 Updated in Other Vendor System with Status of Final Kayode Kwan MD electronically signed on 05/18/2025 5:45:22 PM with status of Final
--- OUTSIDE RECORDS SUMMARY | 2025-05-18 17:05 | XMS_ITS | Clinical Summary ---
Author Organization [facility] Address [address] [place] [address] Care Team Providers Care Machine Woodworking Sander Name Role Phone Donna Harmon MD Primary [...] Sigmoidoscopy 12/23/2016 Influenza Vaccine (#1) 2025 [facility] [place] JAIMES [phone] Care Teams Machine Woodworking Sander Relationship Specialty Start Date End Date Donna Harmon MD PCP - General 05/11/19
--- OUTSIDE RECORDS SUMMARY | 2025-05-18 17:05 | XMS_ITS | Encounter Summary ---
Author Organization [employer] Address 75 [facility] 7 [place] [address] Care Team Providers Care Chemical Laboratory Scientist Name Role Phone Amy Pickett MD Primary Care Pro vider Reason for Visit * Reason Onset Date Comments Med Refill 04/09/2024 Encounter Details Date Type Department Care Team ([facility] st Contact Info) Description 04/09/2024 Telephone [facility] MEDICINE [address] [place], [place] [phone] Amy Pickett MD [address] [place] [address] Med Refill Social History Tobacco Use Types [...] to: [facility]/pharmacy #[id number] documented in this encounter Plan of Treatment Upcoming Encounters Date Type Department Care Team (Late st Contact Info) Description 05/31/2025 11:00 AM EST Office Visit [facility] MEDICINE [address] [place] [address] 06/10/2025 1:45 PM EST Office Visit [facility] MEDICINE [address] [place] [phone] Annmarie Ellington MD [address] [place] [address] documented as of this encounter Visit Diagnoses Not on filedocumented in this encounter Additional Health Concerns Assessment Noted Time PHQ-9 Depression Total Score: 10 024 9:41 AM EDT documented as of this encounter Care Teams Chemical Laboratory Scientist Relationship Specialty Start Date End Date Amy Pickett MD [address] [place] [phone] PCP - General Internal Medicine 04/07/23 documented as of this encounter
--- OUTSIDE RECORDS SUMMARY | 2025-05-18 17:05 | XMS_ITS | Encounter Summary ---
Author Organization [employer] Address 75 [facility] 7 [place] [address] Care Team Providers Care Process Operator Name Role Phone Amy Pickett MD Primary Care Pro vider Reason for Visit * Reason Onset Date Comments Appointment Request 10/05/2024 Encounter Details Date Type Department Care Team ([facility] st Contact Info) Description 10/05/2024 Telephone [facility] MEDICINE [address] [place], [place] [phone] Amy Pickett MD [address] [place], [place] [phone] Appointment Request Social History Tobacco Use Types [...] able to make it. Contact Isa at [phone] documented in this encounter Plan of Treatment Upcoming Encounters Date Type Department Care Team (Late st Contact Info) Description 05/31/2025 11:00 AM EST Office Visit [facility] MED[facility]INE [address] [place] [address] 06/10/2025 1:45 PM EST Office Visit [facility] MEDICINE [address] [place] [phone] Annmarie Ellington MD 230 [place] [address] documented as of this encounter Visit Diagnoses Not on filedocumented in this encounter Additional Health Concerns Assessment Noted Time PHQ-9 Depression Total Score: 10 024 9:41 AM EDT documented as of this encounter Care Teams Process Operator Relationship Specialty Start Date End Date Amy Pickett MD [address] [place] [phone] PCP - General Internal Medicine 04/07/23 documented as of this encounter
--- OUTSIDE RECORDS SUMMARY | 2025-05-18 17:05 | XMS_ITS | Encounter Summary ---
Author Organization [employer] Address 75 [facility] 7t [place] [address] Care Team Providers Care District Court Bailiff Name Role Phone Amy Pickett MD Primary Care Pro vider Encounter Details Date Type Department Care Team ([facility] st Contact Info) Description 09/01/2024 Telephone [facility] MEDICINE [address] [place], [place] [phone] Amy Pickett MD 230 [place] [address] Social History Tobacco Use Types Packs/Day Years [...] Description 05/31/2025 11:00 AM EST Office Visit [address] [address] 06/10/2025 1:45 PM EST Office Visit [address] [address] Annmarie Ellington MD [address] [place] [phone] documented as of this encounter Visit Diagnoses Not on filedocumented in this encounter Additional Health Concerns Assessment Noted Time PHQ-9 Depression Total Score: 10 024 9:41 AM EDT documented as of this encounter Care Teams District Court Bailiff Relationship Specialty Start Date End Date Amy Pickett MD [address] [place] [phone] PCP - General Internal Medicine 04/07/23 documented as of this encounter
--- OUTSIDE RECORDS SUMMARY | 2025-05-18 17:05 | XMS_ITS | Encounter Summary ---
Author Organization [employer] Address 75 [facility] 7 [place] [address] Care Team Providers Care Getter Operator Name Role Phone Amy Pickett MD Primary Care Pro vider Reason for Visit * Reason Onset Date Comments Med Refill 05/13/2024 Encounter Details Date Type Department Care Team ([facility] st Contact Info) Description 05/13/2024 Telephone [facility] MEDICINE 230 [place], [place] [phone] Amy Pickett MD 230 [place] [address] Med Refill Social History Tobacco Use Types [...] be sent to: [facility]/pharmacy #[id number] documented in this encounter Plan of Treatment Upcoming Encounters Date Type Department Care Team (Late st Contact Info) Description 05/31/2025 11:00 AM EST Office Visit [facility] MEDICINE [address] [place] [address] 06/10/2025 1:45 PM EST Office Visit [facility] MEDICINE [address] [place] [phone] Annmarie Ellington MD 230 [place] [address] documented as of this encounter Visit Diagnoses Not on filedocumented in this encounter Additional Health Concerns Assessment Noted Time PHQ-9 Depression Total Score: 10 024 9:41 AM EDT documented as of this encounter Care Teams Getter Operator Relationship Specialty Start Date End Date Amy Pickett MD [address] [place] [phone] PCP - General Internal Medicine 04/07/23 documented as of this encounter
--- OUTSIDE RECORDS SUMMARY | 2025-05-18 17:05 | XMS_ITS | Clinical Summary ---
Author Organization [employer] Address 75 [facility] 7t [place] [address] Care Team Providers Care Surveillance Sensor Operator Name Role Phone Amy Pickett MD [...] Nebulizers (Comp-Air Elite Compact Neb) [facility] Active Blood Pressure Monitor kit 1 each [...] vomiting. 60 tablet 1 023 Active pancrelipase, Dms-Xetu-Xtht, (Creon) 6078-7919 units capsule Take 1 capsule by mouth [...] oxyCODONE (Roxicodone) 15 MG immediate release tabletIndicatio ns:TILTROTOR CREW CHIEF checked 06/13/22 Take 1 tablet (15 mg) [...] oxyCODONE (Roxicodone) 15 MG immediate release tabletIndicatio ns:TILTROTOR CREW CHIEF checked 06/13/22 Take 1 tablet (15 mg) [...] recommended. -Supportive care advised. -Isolation recommendations discussed. meterman 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 2023 Overview (05/03/2025): Dx: chronic neck, low back pain, LE claudication Rx: Oxycodone 15mg IR q 6 hours Controlled Substance Agreement 10/13/2024 Tier: 1 (monthly FIREARMS ASSEMBLY SUPERVISOR visits) Additional considerations: Alprazolam 1mg for anxiety [...] type (CMS/HCC) 05/16/2024 Overview (09/05/2024): Following with [facility] pulmonology-Dr. Maldonado Continue with Combivent inhaler Claudication [...] Injections 11/2022 Encouraged stretching [facility] Continue FIREARMS ASSEMBLY SUPERVISOR at this time. Will perform random Utox [...] root compression . Seen by Neurosurgery at [facility], note pending Referred to Pain Management [...] Utox pos cocaine. Confirmatory testing sent. See rental sales associate. Assessment & Plan (09/28/2024 2:02 PM EDT): [...] C7 fracture seen on CT scan at [facility] ER 10/28/23 He participated fully in group [...] C7 fracture seen on CT scan at [facility] ER 10/28/23 He participated fully in group [...] Injections 11/2022 Encouraged stretching Will refer to [facility] Continue FIREARMS ASSEMBLY SUPERVISOR at this time. Will perform random Utox [...] lumbar pain. Encouraged stretching Will refer to [facility] Continue FIREARMS ASSEMBLY SUPERVISOR at this time. Will perform random Utox [...] Department Care Team Description 05/05/2025 Orders Only [facility] MED[facility]INE [address] [place] [address] Amy Pickett MD 05/05/2025 Telephone [facility] [address] [place] [address] Amy Pickett MD CONCERNS WITH RMV FORM AND MED LIST 05/04/2025 Refill [facility] [address] [place] [address] Amy Pickett MD 05/03/2025 11:00 AM EDT Office Visit [facility] [address] [place] [address] Holly Wills, KENDRA Spondylosis of cervical spine (Primary Dx); meterman 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 05/03/2025 Refill [facility] [address] [place] [address] Amy Pickett MD Essential hypertension 05/03/2025 Travel 05/02/2025 Refill [facility] [address] [place] [address] Amy Pickett MD 04/21/2025 Orders Only [facility] [address] [place] [address] Amy Pickett MD 04/21/2025 Telephone [facility] [address] [place] [address] Amy Pickett MD FYI 04/21/2025 Refill [facility] [address] [place] [address] Amy Pickett MD Chronic pain of both knees; Chronic low back pain, unspecified back pain laterality, unspecified whether sciatica present 04/21/[address] [address] Amy Pickett MD Nurse Triage 04/15/[address] [address] Amy Pickett MD Durable Medical Equipment 04/12/[address] [address] Amy Pickett MD Transfer PCP request 04/11/[address] [address] Amy Pickett MD 04/06/[address] [address] Amy Pickett MD Durable Medical Equipment 03/31/2025 Orders Only [facility] External Provider, [facility] 03/29/2025 9:45 AM EDT Clinical Support [address] [address] 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 RN Chronic right shoulder pain (Primary Dx) 03/29/2025 Telephone [facility] [address] [place] [address] 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 RN 03/29/2025 Orders Only [address] [address] Amy Pickett MD Chronic right shoulder pain (Primary Dx) 03/29/2025 Telephone [facility] [address] [place] [address] 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 RN 03/29/2025 Travel 03/24/2025 Refill [facility] [address] [place] [address] 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 RN Chronic pain of both knees; Chronic low back pain, unspecified back pain laterality, unspecified whether sciatica present 03/24/2025 Refill [facility] [address] [place] [address] Amy Pickett MD Moderate persistent asthma without complication 03/24/2025 Telephone [facility] [address] [place] [address] Amy Pickett MD Med Refill 03/22/2025 Orders Only [facility] External Provider, [facility] 03/18/2025 Orders Only [facility] [address] [place] [address] Amy Pickett MD 03/18/2025 Telephone [facility] [address] [place] [address] Amy Pickett MD Change PCP 03/18/2025 Telephone [facility] [address] [place] [address] 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 RN 03/17/2025 Orders Only [facility] [address] [place] [address] Amy Pickett MD 03/17/2025 Telephone [facility] [address] [place] [address] Amy Pickett MD Nurse Triage 03/17/2025 Telephone [facility] [address] [place] [address] Amy Pickett MD Medication Question 03/16/2025 Telephone [facility] [address] [place] [address] 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 RN 03/16/2025 Telephone [facility] [address] [place] [address] Amy Pickett MD FYI 03/08/2025 Orders Only [facility] [address] [place] [address] Amy Pickett MD 03/08/2025 Telephone [facility] [address] [place] [address] 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, DARIANA 03/05/2025 Refill [facility] [address] [place] [address] Amy Pickett MD Chronic low back pain, unspecified back pain laterality, unspecified whether sciatica present 03/03/2025 Telephone [facility] [address] [place] [address] Amy Pickett MD Durable Medical Equipment 03/03/2025 Telephone [facility] [address] [place] [address] Amy Pickett MD call back requesting 03/01/2025 9:10 AM EDT Clinical Support [facility] [address] [place] [address] 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, RN retirement 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 03/01/2025 Orders Only [facility] [address] [place] [address] Amy Pickett MD 03/01/2025 Telephone [facility] [address] [place] [address] 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 RN 03/01/2025 Travel 02/24/2025 Refill [facility] [address] [place] [address] 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, personnel scheduler pain of both knees; Chronic low back pain, unspecified back pain laterality, unspecified whether sciatica present 02/24/2025 Telephone [facility] [address] [place] [address] Amy Pickett MD med 02/24/2025 Telephone [facility] [address] [place] [address] Amy Pickett MD Med Refill 02/19/2025 Refill [facility] [address] [place] [address] Amy Pickett MD from Last 3 Months [...] Office Visit [facility] [address] [place] [address] 06/10/2025 1:45 PM EST Office Visit [facility] [address] [place] [phone] Annmarie Ellington MD [address] [place] [address] Health Maintenance Due Date Last Done Comments [...] DRUG SCREEN Routine 05/03/2025 12:35 PM EDT meterman 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 MR CERVICAL [...] - 05/03/2025 12:35 PM EDT .UTOX cup Lot#[id number] Exp. 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 POINT OF CARE TEST ENTER/EDIT ORDERABLES Final Result * MR Cervical Spine w/o Contrast (04/01/2025 11:36 AM EDT) Anatomical Region Laterality Modality Spine, C-spine Magnetic Resonan ce 04/01/2025 11:3 6 AM EDT Narrative 04/01/2025 11:37 AM EDT [place] [address] Magnetic Resonance Report Signed Patient: Zain Welch MR# : [id number] : 1965 Acct:[id number] Age/Sex: 59 / M ADM Date: 03/31/25 Loc: HO.MRI Attending Dr: Juan David MIRANDA Ordering Physician: Rosangela Cole CNP Date of Service: 03/31/25 Procedure(s): MR cervical spine wo con Accession Number(s): [id number] cc: Rosangela Cole CNP; Amy Pickett MD [...] stenosis. C5-C6: Small posterior disc protrusion. Mild xqix-nvtkhbr-bfco-right neural foraminal narrowing. No significant central canal stenosis. C6-C7: Gljcj-lh-uauonqmx posterior disc protrusion. Moderate bilateral neural foraminal [...] 04/01/25 1137 DD/ 1136 TD/TT: 04/01/25 1136 Clinical Coordinator: Procedure Note Donotuseinterpreter, Image - 04/01/2025 [place] [address] Magnetic Resonance Report Signed Patient: Zain Welch LMR# : [id number] : 1965Acct:[id number] Age/Sex: 59 / MADM Date: 03/31/25 Loc: HO.MRI Attending Dr: Juan David MIRANDA Ordering Physician: Rosangela Cole CNP Date of Service: 03/31/25 Procedure(s): MR cervical spine wo con Accession Number(s): [id number] cc: Rosangela Cole CNP; Amy Pickett MD [...] stenosis. C5-C6: Small posterior disc protrusion. Mild afpf-jfsuget-yvbb-right neural foraminal narrowing. No significant central canal stenosis. C6-C7: Sveom-aq-atirzcyp posterior disc protrusion. Moderate bilateral neural foraminal [...] 04/01/25 1137 DD/ 1136 TD/TT: 04/01/25 1136 Clinical Coordinator: [facility] External Provider IMG MRI PROCEDURES Final Result * XR Pelvis 1-2 Views (03/22/2025 1:32 PM EDT) Anatomical Region Laterality Modality Body, Pelvis Radiographic Maxine ging 03/22/2025 1:32 PM EDT Narrative 03/22/2025 1:45 PM EDT [address] [address] XRay Report Signed Patient: Zain Welch MR# : [id number] : 1965 Acct:[id number] Age/Sex: 59 / M ADM Date: 03/22/25 Loc: LAYLA Attending Dr: Salvador Elliott MD Ordering Physician: Salvador Elliott MD Date of Service: 03/22/25 Procedure(s): XR pelvis 1-2V Accession Number(s): [id number] cc: Salvador Elliott MD; Amy Pickett MD [...] 03/22/25 1343 DD/ 1332 TD/TT: 03/22/25 1335 Clinical Coordinator: Procedure Note Donotuseinterpreter, Image - 03/22/[address] [address] XRay Report Signed Patient: Zain Welch LMR# : [id number] : 1965Acct:[id number] Age/Sex: 59 / MADM Date: 03/22/25 Loc: LAYLA Attending Dr: Salvador Elliott MD Ordering Physician: Salvador Elliott MD Date of Service: 03/22/25 Procedure(s): XR pelvis 1-2V Accession Number(s): [id number] cc: Salvador Elliott MD; Amy Pickett MD [...] 03/22/25 1343 DD/ 1332 TD/TT: 03/22/25 1335 Clinical Coordinator: [facility] External Provider IMG XR PROCEDURES Edited Result - Final * Drug Monitoring, Cocaine Metabolite, Quantitative, Urine (03/01/2025 9:32 AM EDT) Benzoylecgonine [address]85 [facility] Comment:CUTOFF 100NG/MLPERFO RMING SITE:[employer] [facility], [address] [place], [place] [phone] Acid Cutter: MICHELLE GAUTAM MD, CLIA:[id number] Cocaine Comments SEE NOTE [facility] Comment:This drug testing is for medical treatment only. Analysiswas performed as non-forensic testing and these resultsshould be used only by healthcare providers torender diagnosis or treatment, or to monitor progress ofmedical conditions.Cocaine Notes:Benzoylecgonine detected is consistent with the use of thedrug Cocaine.LDT Notes:Confirmation tests were developed and their analyticalperformance characteristics have been determined by [employer]. It has not been cleared orapproved by the FDA. This assay has been validated pursuantto the CLIA regulations and is used for clinical purposes.Healthcare Providers needing Interpretation assistance,please contact us at [phone] ( ) M-F,8am to 10pm EST 03/01/2025 9:32 AM EDT 03/01/2025 1:39 PM EDT us Amy Berry MD LAB URINE ORDERAB LES Final Result Performing Organization Address [facility]/ZIP Co de Phone Number [facility] [address] [place] [phone] * (ABNORMAL) Hepatitis C Antibody with Reflex to HCV, RNA, Quantitative, Real- Time PCR (09/29/2024 3:37 PM EDT) Hepatitis C Antibody Reactive( A) Nonreactive [facility] Comment:Presumptive evidence of antibodies to HCV. Blood Venous blood specimen / Unknown 09/29/2024 3:37 PM EDT 09/29/2024 3:38 PM EDT us Brent Fischer MD LAB BLOOD ORDERABL ES Final Result Performing Organization Address [facility]/ZIP Co de Phone Number [facility] [address] [place] [phone] * HIV-1/2 Antigen and Antibodies, Fourth Generation, with Reflexes (09/29/2024 3:37 PM EDT) HIV AB/AG Nonreactive Nonreactive [facility] Comment:HIV-1 p24 Ag and/or HIV-1/HIV-2 Ab not detected.A test result that is nonreactive does not exclude thepossibility of exposure to or infection with HIV-1 and/orHIV-2. Nonreactive results in this assay for individualswith prior exposure to HIV-1 and/or HIV-2 may be due toantigen and antibody levels that are below the limit ofdetection of this assay.The My Visual Brief HIV Ag/Ab Combo assay result andsupplemental assay results should be interpreted inconjunction with the patient's clinical presentation,history and other laboratory results. If the results areinconsistent with clinical evidence, additional testing issuggested to confirm the result. Blood Venous blood specimen / Unknown 09/29/2024 3:37 PM EDT 09/29/2024 3:38 PM EDT us Brent Fischer MD LAB BLOOD ORDERABL ES Final Result [facility] [address] [place] [phone] * (ABNORMAL) Lipid Panel, Standard (09/29/2024 3:37 PM EDT) Triglycerides 155(H) <150 mg/dL [facility] Comment:Desirable Triglyceri de: less than 150 mg/dLBorderline High Triglyceride 150-199 mg/dLHigh Triglyceride: 200-499 mg/dLVery High Triglyceride: greater than or equal to 5OO mg/dL Cholesterol 211(H) <200 mg/dL [facility] Comment:Desirable Cholestero l: less than 200 mg/dLBorderline High Cholesterol: 200-239 mg/dLHigh Cholesterol: greater than 239 mg/dL LDL Cholesterol Calculated 131(H) <100 mg/dL [facility] Comment:Desirable LDL: less than 100 mg/dLNear Optimal/Above Optimal LDL: 110- 129 mg/dLBorderline High LDL: 130-159 mg/dLHigh LDL: 160-189 mg/dLVery High LDL: greater than or equal to 190 mg/dL HDL Cholesterol 49 >40 mg/dL [facility] Comment:Desirable HDL: great er than 40 mg/dL Note: This HDL assay may give artificially low results in patients with liver disease. Blood Venous blood specimen / Unknown 09/29/2024 3:37 PM EDT 09/29/2024 3:38 PM EDT us Amy Berry MD LAB BLOOD ORDERAB LES Final Result [facility] [address] [place] [phone] * Hm Colonoscopy (01/06/2018 8:00 AM EDT) us Historical Provider HEALTH MAINTENANCE Final Result from Last 3 Months or Most Recently Relevant to Health Maintenance Insurance [address] [facility] [address] [address] [facility] < 67 [place] [phone] [address] [address] [address] Care Teams Surveillance Sensor Operator Relationship Specialty Start Date End Date Amy Pickett MD [address] [place] [phone] PCP - General Internal Medicine 04/07/23
--- OUTSIDE RECORDS SUMMARY | 2025-05-18 17:05 | XMS_ITS | Encounter Summary ---
Author Organization [employer] Address 75 [facility] 7t [place] [address] Care Team Providers Care Mincemeat Maker Name Role Phone Amy Pickett MD Primary Care Pro vider Encounter Details Date Type Department Care Team ([facility] st Contact Info) Description 09/01/2024 Telephone [facility] MEDICINE [address] [place], [place] [phone] Amy Pickett MD [address] [place] [address] Social History Tobacco Use Types Packs/Day Years [...] Description 05/31/2025 11:00 AM EST Office Visit [address] [address] 06/10/2025 1:45 PM EST Office Visit [address] [address] Annmarie Ellington MD [address] [place] [address] documented as of this encounter Visit Diagnoses Not on filedocumented in this encounter Additional Health Concerns Assessment Noted Time PHQ-9 Depression Total Score: 10 024 9:41 AM EDT documented as of this encounter Care Teams Mincemeat Maker Relationship Specialty Start Date End Date Amy Pickett MD [address] [place] [phone] PCP - General Internal Medicine 04/07/23 documented as of this encounter
--- OUTSIDE RECORDS SUMMARY | 2025-05-18 17:05 | XMS_ITS | Clinical Summary ---
Author Organization [facility] Address [address] [place] [address] Care Team Providers Care Angle Dozer Operator Name Role Phone Ba Maria MD Primary Care Provider Surgical History Surgery Date Site/Laterality Comments FOOT SURGERY PROCEDURE: MD UNLISTED PROCEDURE FOOT/TOES; COMMENT: left foot bunion removal LIPOMA RESECTION PROCEDURE: SKIN TISSUE EXCISION(LIPOMA) OTHER SURGICAL HISTORY PROCEDURE: ---- OTHER ----; COMMENT: urethral surgeries done? three times in [facility] for difficulty urinating Medical History Medical History Date Comments Chronic back pain DX:Chronic alonso k pain Asthma DX:Asthma Anxiety DX:Anxiety; COMM ENT: follows at [facility] Family History Medical History Relation Name [...] age to complete this topic Care Teams Angle Dozer Operator Relationship Specialty Start Date End Date Ba Maria MD PCP - General Internal Medicine 10/26/12
--- OUTSIDE RECORDS SUMMARY | 2025-05-18 17:05 | XMS_ITS | Encounter Summary ---
Author Organization [employer] Address 75 [facility] 7t [place] [address] Care Team Providers Care Measurement Coordinator Name Role Phone Elise Glover ORACLE TECHNICAL ARCHITECT Primary Care Provider Amy Ware MD Primary Care Pro vider Reason for Visit * Reason Comments Med Change Request Encounter Details Date Type Department Care Team (Late st Contact Info) Description 03/03/2023 Refill [facility] [address] [place] [address] Elise Glover FNP Essential hypertension Social History [...] Description 05/31/2025 11:00 AM EST Office Visit [facility] [address] [place] [address] 06/10/2025 1:45 PM EST Office Visit [facility] 230 [place], [place] [phone] Annmarie Ellington MD 230 [place] [address] documented as of this encounter Visit Diagnoses Diagnosis Essential hypertension Unspecified essential hypertension documented in this encounter Additional Health Concerns Assessment Noted Time PHQ-9 Depression Total Score: 24 023 10:05 AM EDT documented as of this encounter Care Teams Measurement Coordinator Relationship Specialty Start Date End Date Elise Glover FNP PCP - General Family Medicine 07/09/22 04/06/23 Amy Pickett MD 230 [place] [address] PCP - General Internal Medicine 04/07/23 documented as of this encounter
--- OUTSIDE RECORDS SUMMARY | 2025-05-18 17:05 | XMS_ITS | Encounter Summary ---
Author Organization [employer] Address 75 [facility] 7 [place] [address] Care Team Providers Care Clarity Developer Name Role Phone Amy Pickett MD Primary Care Pro vider Reason for Visit * Reason Onset Date Comments Results 10/01/2024 Encounter Details Date Type Department Care Team ([facility] st Contact Info) Description 10/01/2024 Telephone [facility] MEDICINE 230 [place], [place] [phone] Amy Pickett MD 230 [place], [place] [phone] Results Social History Tobacco Use Types Packs/Day [...] Blood Test Date when done: 09/29/24 [place] [facility] [place] at [phone] documented in this encounter Plan of Treatment Upcoming Encounters Date Type Department Care Team (Late st Contact Info) Description 05/31/2025 11:00 AM EST Office Visit [facility] MEDICINE [address] [place] [address] 06/10/2025 1:45 PM EST Office Visit [facility] MEDICINE [address] [place] [address] Annmarie Ellington MD 230 [place] [address] documented as of this encounter Visit Diagnoses Not on filedocumented in this encounter Additional Health Concerns Assessment Noted Time PHQ-9 Depression Total Score: 10 024 9:41 AM EDT documented as of this encounter Care Teams Clarity Developer Relationship Specialty Start Date End Date Amy Pickett MD [address] [place] [address] PCP - General Internal Medicine 04/07/23 documented as of this encounter
--- OUTSIDE RECORDS SUMMARY | 2025-05-18 17:05 | XMS_ITS | Encounter Summary ---
Author Organization [employer] Address [address] [facility] [address] 7t [place] [address] Care Team Providers Care Back Winder Name Role Phone Amy Pickett MD Primary Care Pro vider Encounter Details Date Type Department Care Team (Late st Contact Info) Description 10/01/2024 Orders Only [facility] [address] [place], [place] [phone] Za Preston MD 505 [place] [address] Social History Tobacco Use Types Packs/Day Years [...] 11:00 AM EST Office Visit [facility] MEDICINE [address] [place] [address] 06/10/2025 1:45 PM EST Office Visit [facility]INE [address] [place] [address] Annmarie Ellington MD [address] [place] [address] documented as of this encounter Visit Diagnoses Not on filedocumented in this encounter Additional Health Concerns Assessment Noted Time PHQ-9 Depression Total Score: 10 024 9:41 AM EDT documented as of this encounter Care Teams Back Winder Relationship Specialty Start Date End Date Amy Pickett MD [address] [place] [address] PCP - General Internal Medicine 04/07/23 documented as of this encounter
--- OUTSIDE RECORDS SUMMARY | 2025-05-18 17:06 | XMS_ITS | Encounter Summary ---
Author Organization [employer] Address 75 [facility] 7 [place] [address] Care Team Providers Care Front End Wheel Loader Operator Name Role Phone Amy Pickett MD Primary Care Pro vider Reason for Visit * Reason Onset Date Comments Appointment Request 09/02/2023 Encounter Details Date Type Department Care Team ([facility] st Contact Info) Description 09/02/[address] [facility] 230 [place], [place] [phone] Amy Pickett MD 230 [place] [address] Appointment Request Social History Tobacco Use Types [...] from pt requesting a transfer patient appointment. Will Call Clerk does not see any availability. Pt states he needs appointment as soon as possible due to controlled medication. States needs to be seen bya new provider to continue medication. Please contact pt at [phone] documented in this encounter Plan of Treatment Upcoming Encounters Date Type Department Care Team (Late st Contact Info) Description 05/31/2025 11:00 AM EST Office Visit [facility] [address] [place] [address] 06/10/2025 1:45 PM EST Office Visit [facility] [address] [place] [place] [address] Annmarie Ellington MD [address] [place] [address] documented as of this encounter Visit Diagnoses Not on filedocumented in this encounter Additional Health Concerns Assessment Noted Time PHQ-9 Depression Total Score: 24 023 10:05 AM EDT documented as of this encounter Care Teams Front End Wheel Loader Operator Relationship Specialty Start Date End Date Amy Pickett MD [address] [place] [address] PCP - General Internal Medicine 04/07/23 documented as of this encounter
--- OUTSIDE RECORDS SUMMARY | 2025-05-18 17:06 | XMS_ITS | Encounter Summary ---
Author Organization [employer] Address [address] [facility] [address] 7t [place] [address] Care Team Providers Care Biological Scientist Name Role Phone Amy Pickett MD Primary Care Pro vider Encounter Details Date Type Department Care Team (Late st Contact Info) Description 06/24/2024 Orders Only [facility] 230 [place] [address] Provider, MD Bryan Social History Tobacco Use [...] AM EST Office Visit [facility] [address] [place] [address] 06/10/2025 1:45 PM EST Office Visit [address] [address] nAnmarie Ellington MD [address] [place] [address] documented as of this encounter Procedures Procedure [...] documented as of this encounter Care Teams Biological Scientist Relationship Specialty Start Date End Date Amy Pickett MD [address] [place] [address] PCP - General Internal Medicine 04/07/23 documented as of this encounter
--- OUTSIDE RECORDS SUMMARY | 2025-05-18 17:06 | XMS_ITS | Encounter Summary ---
Author Organization [employer] Address 75 [facility] 7 [place] [address] Care Team Providers Care Dj Instructor Name Role Phone Amy Pickett MD Primary Care Pro vider Reason for Visit * Reason Onset Date Comments FYI 04/21/2025 Encounter Details Date Type Department Care Team ([facility] st Contact Info) Description 04/21/2025 Telephone [facility] 230 [place], [place] [phone] Amy Pickett MD 230 [place] [address] FYI Social History Tobacco Use Types Packs/Day [...] 11:00 AM EST Office Visit [facility] [address] [place] [address] 06/10/2025 1:45 PM EST Office Visit [facility] 230 [place] [address] Annmarie Ellington MD 230 [place] [address] documented as of this encounter Visit Diagnoses Not on filedocumented in this encounter Additional Health Concerns Assessment Noted Time PHQ-9 Depression Total Score: 0 11/25/19 25 2:10 PM EDT documented as of this encounter Care Teams Dj Instructor Relationship Specialty Start Date End Date Amy Pickett MD [address] [place] [address] PCP - General Internal Medicine 04/07/23 documented as of this encounter
--- OUTSIDE RECORDS SUMMARY | 2025-05-18 17:06 | XMS_ITS | Encounter Summary ---
Author Organization [employer] Address 75 [facility] 7 [place] [address] Care Team Providers Care Repairer Veneer Sheet Name Role Phone Amy Pickett MD Primary Care Pro vider Reason for Visit * Reason Onset Date Comments Medication Question 03/17/2025 Encounter Details Date Type Department Care Team ([facility] st Contact Info) Description 03/17/2025 Telephone [facility] 230 [place], [place] [phone] Amy Pickett MD 230 [place], [place] [phone] Medication Question Social History Tobacco Use Types [...] pain killer. Any questions contact pt at [phone] * Telephone Encounter - Andrew Maldonado - 03/17/2025 11:19 AM EDT Tc from Domenica, pt's ASSEMBLER [employer] BACK[employer]E, stating pt had a surgery done but due to pt being prescribed Oxycodone they were unable to prescribe pt any pain medication. Domenica is hoping pt can be prescribed some sort of muscle relaxer or an accomodation to be prescribed medication. If any questions please contact Domenica at [phone]. documented in this encounter Plan of Treatment Upcoming Encounters Date Type Department Care Team ([facility] st Contact Info) Description 05/31/2025 11:00 AM EST Office Visit [facility] [address] [place] [address] 06/10/2025 1:45 PM EST Office Visit [facility] 230 [place], [place] [phone] Annmarie Ellington MD 230 [place], [place] [phone] documented as of this encounter Visit Diagnoses Not on filedocumented in this encounter Additional Health Concerns Assessment Noted Time PHQ-9 Depression Total Score: 0 11/25/19 25 2:10 PM EDT documented as of this encounter Care Teams Repairer Veneer Sheet Relationship Specialty Start Date End Date Amy Pickett MD 230 [place], [place] [phone] PCP - General Internal Medicine 04/07/23 documented as of this encounter
--- OUTSIDE RECORDS SUMMARY | 2025-05-18 17:06 | XMS_ITS | Encounter Summary ---
Author Organization [employer] Address 75 [facility] 7t [place] [address] Care Team Providers Care Oil Well Drilling Manager Name Role Phone Amy Pickett MD Primary Care Pro vider Encounter Details Date Type Department Care Team ([facility] st Contact Info) Description 05/05/2025 Orders Only [facility] [address] [place] [address] [phone] Amy Pickett MD 230 [place] [address] Social History Tobacco Use Types Packs/Day Years [...] Description 05/31/2025 11:00 AM EST Office Visit [address] [address] 06/10/2025 1:45 PM EST Office Visit [address] [address] Annmarie Ellington MD [address] [place] [address] documented as of this encounter Visit Diagnoses Not on filedocumented in this encounter Additional Health Concerns Assessment Noted Time PHQ-9 Depression Total Score: 0 11/25/19 25 2:10 PM EDT documented as of this encounter Care Teams Oil Well Drilling Manager Relationship Specialty Start Date End Date Amy Pickett MD [address] [place] [address] PCP - General Internal Medicine 04/07/23 documented as of this encounter
--- OUTSIDE RECORDS SUMMARY | 2025-05-18 17:06 | XMS_ITS | Encounter Summary ---
Author Organization [employer] Address 75 [facility] 7 [place] [address] Care Team Providers Care Cable Installer Name Role Phone Amy Pickett MD Primary Care Pro vider Reason for Visit * Reason Onset Date Comments Med Refill 2024 Encounter Details Date Type Department Care Team ([facility] st Contact Info) Description 2024 Telephone [facility] 230 [place], [place] [phone] Amy Pickett MD 230 [place], [place] [phone] Med Refill Social History Tobacco Use Types [...] To be sent to: [facility]/pharmacy #[address] documented in this encounter Plan of Treatment Upcoming Encounters Date Type Department Care Team (Late st Contact Info) Description 05/31/2025 11:00 AM EST Office Visit [facility] [address] [place] [address] 06/10/2025 1:45 PM EST Office Visit [facility] [address] [place] [address] Annmarie Ellington MD 230 [place] [address] documented as of this encounter Visit Diagnoses Not on filedocumented in this encounter Additional Health Concerns Assessment Noted Time PHQ-9 Depression Total Score: 0 11/25/19 25 2:10 PM EDT documented as of this encounter Care Teams Cable Installer Relationship Specialty Start Date End Date Amy Pickett MD [address] [place] [phone] PCP - General Internal Medicine 04/07/23 documented as of this encounter
--- OUTSIDE RECORDS SUMMARY | 2025-05-18 17:06 | XMS_ITS | Encounter Summary ---
Author Organization [employer] Address 75 [facility] 7t [place] [address] Care Team Providers Care Geophysicist Name Role Phone Elise Glover COMMERCIAL RELIEF DRIVER Primary Care Provider Amy Ware MD Primary Care Pro vider Reason for Visit * Reason Onset Date Comments Durable Medical Equipment 10/07/2022 Encounter Details Date Type Department Care Team (Late st Contact Info) Description 10/07/2022 Telephone [facility] MEDICINE 230 [place] [address] Elise Glover, COMMERCIAL RELIEF DRIVER Durable Medical Equipment Social History Tobacco Use [...] If any questions please contact Anabelle at [phone] documented in this encounter Plan of Treatment Upcoming Encounters Date Type Department Care Team (Late st Contact Info) Description 05/31/2025 11:00 AM EST Office Visit [address] [address] 06/10/2025 1:45 PM EST Office Visit [address] [address] Annmarie Ellington MD [address] [place] [address] documented as of this encounter Visit Diagnoses Not on filedocumented in this encounter Additional Health Concerns Assessment Noted Time PHQ-9 Depression Total Score: 24 10/01/ 023 10:05 AM EDT documented as of this encounter Care Teams Geophysicist Relationship Specialty Start Date End Date Elise Glover FNP PCP - General Family Medicine 07/09/22 04/06/23 Amy Pickett MD [address] [place] [address] PCP - General Internal Medicine 04/07/23 documented as of this encounter
--- OUTSIDE RECORDS SUMMARY | 2025-05-18 17:06 | XMS_ITS | Encounter Summary ---
Author Organization [employer] Address 75 [facility] 7t [place] [address] Care Team Providers Care International Banker Name Role Phone Elise Glover PRESS ROOM SUPERVISOR Primary Care Provider Amy Ware MD Primary Care Pro vider Reason for Visit * Reason Onset Date Comments triage 08/22/2022 Encounter Details Date Type Department Care Team (Late st Contact Info) Description 08/22/2022 Telephone [facility] [address] [place] [address] Elise Glover FNP triage Social History Tobacco [...] Description 05/31/2025 11:00 AM EST Office Visit [facility] [address] [place] [address] [phone] 06/10/2025 1:45 PM EST Office Visit [facility] 230 [place] [address] Annmarie Ellington MD 230 [place], [place] [phone] documented as of this encounter Visit Diagnoses Not on filedocumented in this encounter Care Teams International Banker Relationship Specialty Start Date End Date Elise Glover FNP PCP - General Family Medicine 07/09/22 04/06/23 Amy Pickett MD 230 [place], [place] [phone] PCP - General Internal Medicine 04/07/23 documented as of this encounter
--- OUTSIDE RECORDS SUMMARY | 2025-05-18 17:06 | XMS_ITS | Encounter Summary ---
Author Organization [employer] Address 75 [facility] 7 [place] [address] Care Team Providers Care Machine Iii Coremaker Name Role Phone Amy Pickett MD Primary Care Pro vider Reason for Visit * Reason Onset Date Comments Med Refill 02/24/2025 Encounter Details Date Type Department Care Team ([facility] st Contact Info) Description 02/24/2025 Telephone [facility] MEDICINE 230 [place], [place] [phone] Amy Pickett MD 230 [place] [address] Med Refill Social History Tobacco Use Types [...] immediate release tablet To be sent to: [facility]/pharmacy #1972 - [address] documented in this encounter Plan of Treatment Upcoming Encounters Date Type Department Care Team (Late st Contact Info) Description 05/31/2025 11:00 AM EST Office Visit [facility] MEDICINE [address] [place] [address] 06/10/2025 1:45 PM EST Office Visit [facility] MEDICINE [address] [place] [address] Annmarie Ellington MD [address] [place] [address] documented as of this encounter Visit Diagnoses Not on filedocumented in this encounter Additional Health Concerns Assessment Noted Time PHQ-9 Depression Total Score: 0 11/25/19 25 2:10 PM EDT documented as of this encounter Care Teams Machine Iii Coremaker Relationship Specialty Start Date End Date Amy Pcikett MD [address] [place] [address] PCP - General Internal Medicine 04/07/23 documented as of this encounter
--- OUTSIDE RECORDS SUMMARY | 2025-05-18 17:06 | XMS_ITS | Encounter Summary ---
Author Organization [employer] Address 75 [facility] 7 [place] [address] Care Team Providers Care Telephone Sterilizer Name Role Phone Amy Pickett MD Primary Care Pro vider Reason for Visit * Reason Onset Date Comments Med Refill 10/27/2024 Encounter Details Date Type Department Care Team ([facility] st Contact Info) Description 10/27/[address] [facility] MEDICINE 230 [place], [place] [phone] Amy Pickett MD 230 [place] [address] Med Refill Social History Tobacco Use Types [...] be sent to: [facility]/pharmacy #[address] documented in this encounter Plan of Treatment Upcoming Encounters Date Type Department Care Team (Late st Contact Info) Description 05/31/2025 11:00 AM EST Office Visit [facility] MEDICINE [address] [place] [address] 06/10/2025 1:45 PM EST Office Visit [facility] MEDICINE [address] [place] [address] Annmarie Ellington MD 230 [place] [address] documented as of this encounter Visit Diagnoses Not on filedocumented in this encounter Additional Health Concerns Assessment Noted Time PHQ-9 Depression Total Score: 10 024 9:41 AM EDT documented as of this encounter Care Teams Telephone Sterilizer Relationship Specialty Start Date End Date Amy Pickett MD [address] [place] [address] PCP - General Internal Medicine 04/07/23 documented as of this encounter
--- OUTSIDE RECORDS SUMMARY | 2025-05-18 17:06 | XMS_ITS | Encounter Summary ---
Author Organization [employer] Address 75 [facility] 7 [place] [address] Care Team Providers Care Unarmed Security Guard Name Role Phone Amy Pickett MD Primary Care Pro vider Reason for Visit * Reason Onset Date Comments Med Refill 03/24/2025 Encounter Details Date Type Department Care Team ([facility] st Contact Info) Description 03/24/2025 Telephone [facility] MEDICINE 230 [place], [place] [phone] Amy Pickett MD 230 [place] [address] Med Refill Social History Tobacco Use Types [...] [facility]/pharmacy #1972 - [address] documented in this encounter Plan of Treatment Upcoming Encounters Date Type Department Care Team (Late st Contact Info) Description 05/31/2025 11:00 AM EST Office Visit [facility] MEDICINE [address] [place] [address] 06/10/2025 1:45 PM EST Office Visit [facility] MEDICINE [address] [place] [address] Annmarie Ellington MD [address] [place] [address] documented as of this encounter Visit Diagnoses Not on filedocumented in this encounter Additional Health Concerns Assessment Noted Time PHQ-9 Depression Total Score: 0 11/25/19 25 2:10 PM EDT documented as of this encounter Care Teams Unarmed Security Guard Relationship Specialty Start Date End Date Amy Pickett MD [address] [place] [address] PCP - General Internal Medicine 04/07/23 documented as of this encounter
--- OUTSIDE RECORDS SUMMARY | 2025-05-18 17:06 | XMS_ITS | Encounter Summary ---
Author Organization [employer] Address [address] [place] [address] 7t [place] [address] Care Team Providers Care Firer Helper Name Role Phone Elise Glover PLEXIGLAS FORMER Primary Care Provider Amy Ware MD Primary Care Pro vider Encounter Details Date Type Department Care Team (Late st Contact Info) Description 01/14/2023 Orders Only [facility] MEDICINE [address] [place] [address] Elise Glover FNP Social History Tobacco Use [...] Description 05/31/2025 11:00 AM EST Office Visit [address] [phone] 06/10/2025 1:45 PM EST Office Visit [address] [phone] Annmarie Ellington MD 230 [place] [address] documented as of this encounter Visit Diagnoses Not on filedocumented in this encounter Additional Health Concerns Assessment Noted Time PHQ-9 Depression Total Score: 24 023 10:05 AM EDT documented as of this encounter Care Teams Firer Helper Relationship Specialty Start Date End Date Elise Glover FNP PCP - General Family Medicine 07/09/22 04/06/23 Amy Pickett MD [address] [place] [address] PCP - General Internal Medicine 04/07/23 documented as of this encounter
--- OUTSIDE RECORDS SUMMARY | 2025-05-18 17:06 | XMS_ITS | Encounter Summary ---
Author Organization [employer] Address [address] [facility] 7 [place] [address] Care Team Providers Care Membership Assistant Name Role Phone Amy Pickett MD Primary Care Pro vider Reason for Visit * Reason Onset Date Comments Nurse Triage 03/17/2025 Encounter Details Date Type Department Care Team ([facility] st Contact Info) Description 03/17/2025 Telephone [facility] [address] [place], [place] [phone] Amy Pickett MD [address] [place] [address] Nurse Triage Social History Tobacco Use Types [...] to Zain Lazcano to triage below at [phone]. Pt states having a procedure done to [...] Is currently on the phone with a watch manufacturing supervisor [facility]. She states that pt. 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 Pt. Luz Marina states that PCP will not give pt. Additional pain medication because pt. Is alreadyon Oxycodone. I advised that I will write this down as pt. Is currently speaking with a Underground Heavy Equipment Operator. * Telephone Encounter - James Diana - 03/17/2025 4:02 PM EDT Symptom: Shoulder Pain - Not From Injury Outcome: Schedule an urgent appointment (within 1 hour) or talk to a nurse or provider soon Reason: Severe pain now The caller accepted this outcome. Contact pt at [phone] Pt was requesting for tramadol for his shoulder pain. Pt was already advised that he cannot take tramadol and Oxycodone at the same time. documented in this encounter Plan of Treatment Upcoming Encounters Date Type Department Care Team (Late st Contact Info) Description 05/31/2025 11:00 AM EST Office Visit [facility] [address] [place] [phone] 06/10/2025 1:45 PM EST Office Visit [facility] [address] [place] [address] Annmarie Ellington MD [address] [place] [address] documented as of this encounter Visit Diagnoses Not on filedocumented in this encounter Additional Health Concerns Assessment Noted Time PHQ-9 Depression Total Score: 0 11/25/19 25 2:10 PM EDT documented as of this encounter Care Teams Membership Assistant Relationship Specialty Start Date End Date Amy Pickett MD [address] [place] [phone] PCP - General Internal Medicine 04/07/23 documented as of this encounter
--- OUTSIDE RECORDS SUMMARY | 2025-05-18 17:06 | XMS_ITS | Encounter Summary ---
Author Organization [employer] Address 75 [facility] 7 [place] [address] Care Team Providers Care Machine Striper Name Role Phone Aym Pickett MD Primary Care Pro vider Reason for Visit * Reason Onset Date Comments FYI 03/16/2025 Encounter Details Date Type Department Care Team ([facility] st Contact Info) Description 03/16/2025 Telephone [facility] [address] [place], [place] [phone] Amy Pickett MD [address] [place], [place] [phone] FYI Social History Tobacco Use Types Packs/Day [...] who reports pt currently having surgery at [facility] through [facility] to get SNS device removed so that he can have MRI done as he couldn't have MRI with the implant and he has excruciating 10/10 shoulder pain and can't lift his arm. Advised to call [facility] centralized scheduling to r/s MRI now that implant is being removed. Texted her their phone number via [employer] text at her request. She reports that [...] group appt be changed to a normal USER EXPERIENCE LEAD appt. Seeing as though he is having [...] anything out of it. Would rather do USER EXPERIENCE LEAD visits. Informed I would send message regarding this. * Telephone Encounter - Jesusita Castellanos - 03/16/2025 3:01 PM EDT Tc from [facility] stating specialist pritesh to give him an emergency surgery to get the implant out. So now pt is able to do MRI. documented in this encounter Plan of Treatment Upcoming Encounters Date Type Department Care Team (Late st Contact Info) Description 05/31/2025 11:00 AM EST Office Visit [facility] [address] [place] [phone] 06/10/2025 1:45 PM EST Office Visit [facility] [address] [place] [phone] Annmarie Ellington MD [address] [place] [phone] documented as of this encounter Visit Diagnoses Not on filedocumented in this encounter Additional Health Concerns Assessment Noted Time PHQ-9 Depression Total Score: 0 11/25/19 2:10 PM EDT documented as of this encounter Care Teams Machine Striper Relationship Specialty Start Date End Date Amy Pickett MD [address] [place] [phone] PCP - General Internal Medicine 04/07/23 documented as of this encounter
--- OUTSIDE RECORDS SUMMARY | 2025-05-18 17:06 | XMS_ITS | Encounter Summary ---
Author Organization [employer] Address 75 [facility] 7 [place] [address] Care Team Providers Care Precinct I Police Sergeant Name Role Phone Amy Pickett MD Primary Care Pro vider Reason for Visit * Reason Onset Date Comments Med Refill 08/06/2024 Encounter Details Date Type Department Care Team ([facility] st Contact Info) Description 08/06/2024 Telephone [facility] [address] [place], [place] [phone] Amy Pickett MD [address] [place], [place] [phone] Med Refill Social History Tobacco Use Types [...] 0.083% nebulizer solution To be sent to: [facility]/pharmacy #[id number] - [address] documented in this encounter Plan of Treatment Upcoming Encounters Date Type Department Care Team ([facility] st Contact Info) Description 05/31/2025 11:00 AM EST Office Visit [address] [address] 06/10/2025 1:45 PM EST Office Visit [facility] [address] [place] [address] Annmarie Ellington MD [address] [place], [place] [phone] documented as of this encounter Visit Diagnoses Not on filedocumented in this encounter Additional Health Concerns Assessment Noted Time PHQ-9 Depression Total Score: 10 024 9:41 AM EDT documented as of this encounter Care Teams Precinct I Police Sergeant Relationship Specialty Start Date End Date Amy Pickett MD [address] [place] [phone] PCP - General Internal Medicine 04/07/23 documented as of this encounter
--- OUTSIDE RECORDS SUMMARY | 2025-05-18 17:06 | XMS_ITS | Encounter Summary ---
Author Organization [email or web address] Address 75 [facility] 7t [place] [address] Care Team Providers Care Sewer Repairer Name Role Phone Amy Pickett MD Primary Care Pro vider Reason for Visit * Reason Comments Med Refill Encounter Details Date Type Department Care Team ([facility] st Contact Info) Description 06/17/2024 Refill [facility] [address] [place], [place] [phone] Amy Pickett MD [address] [place] [address] Social History Tobacco Use Types Packs/Day Years [...] EST Office Visit [facility] [address] [place] [phone] 06/10/2025 1:45 PM EST Office Visit [facility] [address] [place] [phone] Annmarie Ellington MD [address] [place] [phone] documented as of this encounter Visit Diagnoses Not on filedocumented in this encounter Additional Health Concerns Assessment Noted Time PHQ-9 Depression Total Score: 10 024 9:41 AM EDT documented as of this encounter Care Teams Sewer Repairer Relationship Specialty Start Date End Date Amy Picktet MD [address] [place] [phone] PCP - General Internal Medicine 04/07/23 documented as of this encounter
--- OUTSIDE RECORDS SUMMARY | 2025-05-18 17:06 | XMS_ITS | Encounter Summary ---
Author Organization [employer] Address 75 [facility] 7 [place] [address] Care Team Providers Care Table Games Supervisor Name Role Phone Amy Pikcett MD Primary Care Pro vider Reason for Visit * Reason Onset Date Comments Med Refill 02/11/2024 Encounter Details Date Type Department Care Team ([facility] st Contact Info) Description 02/11/2024 Telephone [facility] [address] [place], [place] [phone] Amy Pickett MD [address] [place], [place] [phone] Med Refill Social History Tobacco Use Types [...] sent to: [facility]/pharmacy #[id number] - [address] documented in this encounter Plan of Treatment Upcoming Encounters Date Type Department Care Team ([facility] st Contact Info) Description 05/31/2025 11:00 AM EST Office Visit [facility] [address] [place] [phone] 06/10/2025 1:45 PM EST Office Visit [facility] [address] [place] [phone] Annmarie Ellington MD [address] [place] [phone] documented as of this encounter Visit Diagnoses Not on filedocumented in this encounter Additional Health Concerns Assessment Noted Time PHQ-9 Depression Total Score: 24 023 10:05 AM EDT documented as of this encounter Care Teams Table Games Supervisor Relationship Specialty Start Date End Date Amy Pickett MD [address] [place] [phone] PCP - General Internal Medicine 04/07/23 documented as of this encounter
== END ==
LOC: HO.CARD 13:54
PROVIDERS: PCP General Practice; Visit Provider Internal Medicine
DX: R07.9 Chest pain, unspecified (principal)
CPT/HCPCS: 93306

== ENCOUNTER → 2025-05-18 13:58 | Outpatient (BNV) | payer OTHER, SELFPAY | PROVIDERS: PCP General Practice; Visit Provider Internal Medicine Cardiovascular Disease | DX: R07.9 Chest pain, unspecified (principal); I51.89 Other ill-defined heart diseases | CPT/HCPCS: 93306 ==

== ENCOUNTER 2025-06-20 13:33 | Outpatient (AMB) | payer OTHER, SELFPAY ==
--- NOTE | 2025-06-20 14:34 | MHC.OFFVIS ---
Vital Signs 06/20/25 14:40 Height 5 ft 4 in Weight 170 lb BMI 29.2 BP 140/82 H Blood Pressure Location Rt brachial Position Sitting Respiration 16 Pulse 69 Pulse Source Pulse Oximeter Pulse Oximetry (%) 96 Oxygen Delivery Method Room Air Intake Visit Reasons: Trigger Points Assessment Coordinator Required: No Allergies cat dander (CATS) Allergy (Unknown, Verified 06/20/25 14:41) UNKNOWN dog dander (DOGS) Allergy (Unknown, Verified 06/20/25 14:41) UNKNOWN pollen extracts (POLLEN) Allergy (Unknown, Verified 06/20/25 14:41) UNKNOWN tree and shrub pollen Allergy (Verified 06/20/25 14:41) sneeze ibuprofen Adverse Reaction (Verified 06/20/25 14:41) causes stomach to bleed Medication List - Last Reconciled 06/20/25 by Rosangela Cole CNP alprazolam 1 mg PO TID amlodipine 5 mg PO DAILY budesonide 0.5 mg (2 mL) inhalation BID 30 days cholecalciferol (vitamin D3) 50 mcg PO DAILY cyanocobalamin (vitamin B-12) 1,000 mcg PO DAILY cyclobenzaprine 5 mg PO TID PRN dicyclomine 20 mg PO QID erenumab-aooe (Aimovig Autoinjector) 70 mg subcut QMONTH 30 days famotidine 40 mg PO BEDTIME fznrzkzhjkt-lbcumqhrr-nvbhpgvz 200-62.5-25 mcg (Trelegy Ellipta) 1 ea PO DAILY hydroxyzine HCl 25 mg PO BID PRN 30 days ipratropium-albuterol 0.5 mg-3 mg(2.5 mg base)/3 mL 3 mL inhalation BID 30 days ipratropium-albuterol 20-100 mcg/actuation (Combivent Respimat) 1 puff inhalation QID 30 days nebulizers As directed ondansetron HCl 4 mg PO BID PRN oxycodone 15 mg PO Q6H sumatriptan succinate take 1 tab at onset of headache; if no relief, may repeat 1 tab after at least 2 hrs; max = 2 tabs/24 hrs tamsulosin 0.4 mg PO DAILY 30 days HPI Comments Details: Zain is a 59-year-old male patient with a past medical history of migraine, depression, hypertension, osteoarthritis, asthma, COPD, STEPHON on CPAP who was seeing me at the [facility] neurology clinic for chronic headache. He is here today for his occipital nerve blocks and trigger point injections. To review his history: He has a longstanding history of STEPHON which has likely contributed to his existing migraine history. He also has a history of medication overuse headaches of sumatriptan. He does have an occipital neuralgia component to his headaches and he has responded well to occipital nerve blocks and trigger point injections. His acute therapy has been slightly more challenging with some resistance to GEPANTs in the past. Triptans are not favorable due to his history of coronary artery disease. At our most recent appointment at [facility], he reported a fall and related shoulder pain. The patient reports persistent right shoulder pain, exacerbated by movement and associated with numbness in the right arm. The patient has a history of cervical disc herniation with mild central stenosis and bilateral foraminal stenosis at C6-C7, which was identified in an MRI conducted in 2023. The patient did not follow up with neurosurgery as recommended after the MRI, and symptoms have progressed to include pain radiating to the left arm. The patient also reports discontinuation of CPAP use due to an incident of vomiting through the mask. The patient expresses concern about the risk of aspiration and is considering alternative mask options. His drop board man manages his Pap therapy. A recent C-spine MRI showed cervical disc disease and he also has tendon tearing to his right shoulder. He will be undergoing surgery for both his shoulder and his neck with NEOS. Recently, his headaches has been poorly controlled due to an increase in his stress including his shoulder and neck issues and he is now experiencing migraine-type headaches 5-7 days per week lasting for hours each day. Occipital nerve blocks and trigger point injections to help to improve his symptoms for at least a couple of weeks after the injections. I did order Ajovy at last visit however this was not approved as it was not preferred agent. I said instead for Aimovig 70 mg once monthly. I did not see the prior authorization come through on this. He has not yet started it. On 06/10/2025, he underwent a right shoulder repair for a tendon tear. He will be starting physical therapy soon. He feels that he is not able to wear his brace/sling due to inability to wear bulky clothing. He is using cyclobenzaprine 5 mg t.i.d. and oxycodone 15 mg q.6 hours. He did not receive any new pain medication after his surgery. He also is dealing with significant stress involving a physician who revoked his licence. He feels that it was related to a statement he made a leading to the possibility of him being suicidal however he denies any SI. 03/31/2025 shoulder MRI IMPRESSION: 1. Complete supraspinatus tendon tear with 10 mm retraction. 2. Partial subscapularis tendon tear near its insertion. 3. Biceps tendon tenosynovitis without tear. 03/31/25 c-spine MRI FINDINGS: Mild expected postsurgical straightening of the cervical lordosis. Fusion hardware at C5-C6 appears intact by MR. No acute fracture or acute malalignment. Prevertebral and paravertebral soft tissues are unremarkable. Mild multilevel disc desiccation and disc space narrowing. Visualized portions of the posterior fossa are unremarkable. Individual levels: C2-C3: Small left eccentric disc protrusion. No significant central canal stenosis or neural foraminal narrowing. C3-C4: No significant central canal stenosis or neural foraminal narrowing. C4-C5: Small posterior disc protrusion with mild bilateral neural foraminal narrowing. No central canal stenosis. C5-C6: Small posterior disc protrusion. Mild aitx-spsqijw-xqwj-right neural foraminal narrowing. No significant central canal stenosis. C6-C7: Qxpkd-xl-mamfneig posterior disc protrusion. Moderate bilateral neural foraminal narrowing. Minimal central canal narrowing. C7-T1: Small left eccentric disc protrusion with mild left neural foraminal narrowing. Impression: Postsurgical and degenerative changes as detailed. [facility] Medical History Ganglion cyst Chest pain Nicotine dependence, cigarettes, uncomplicated Nausea and vomiting Dyspnea Photophobia Headache Syncope Dysphagia Seizure Lipoma of back STEPHON (obstructive sleep apnea) COPD (chronic obstructive pulmonary disease) Post herpetic neuralgia Multiple lipomas Osteoarthritis Gout History of peptic ulcer disease Hx of irritable bowel syndrome Chronic back pain Hx of insomnia History of panic attacks History of anxiety History of depression Asthma High cholesterol Hypertension Urinary retention Enlarged prostate Arthritis Slow urinary stream Marijuana use Alcohol abuse H/O ulcer disease Left flank pain Trochanteric bursitis, left hip Epidermal cyst Abdominal wall bulge Esophageal dysphagia Esophageal spasm Short frenulum of penis Balanitis Elevated blood pressure reading in office with diagnosis of hypertension Thalamic pain syndrome Abnormal loss of weight Painful orthopaedic hardware Pain in unspecified toe(s) Incisional pain Surgical History S/P placement of nerve stimulator H/O neck surgery Hx of arthroscopy of left knee H/O breast surgery S/P excision of lipoma History of bunionectomy History of cystoscopy History of colonoscopy History of esophagogastroduodenoscopy (EGD) Family History Family/Other Cancer Diabetes AIDS Brother Diabetes Myocardial infarction Father Enlarged prostate Mother Diabetes Asthma Social History Are you a primary managed care provider to a significant other at home: No Do you presently have visiting nurse or other home services: No Alcohol intake: never Patient Tobacco Use Status: Current everyday Tobacco user Cigarettes Per Day: 4 Years Smoked: (onset 16yo, 1ppd x 42yrs, now 1/2ppd - 40pyh) Substance Use Type: Marijuana service: No Current occupational status: unemployed Review of Systems Const All systems reviewed & are unremarkable except as noted in HPI and below Physical Exam Vital Signs: Last Vital Signs Pulse 69 06/20/25 14:40 Resp 16 06/20/25 14:40 BP 140/82 H 06/20/25 14:40 Pulse Ox 96 06/20/25 14:40 Oxygen Delivery Method Room Air 06/20/25 14:40 BMI result Body Mass Index 29.2 Const General: cooperative, healthy appearing, comfortable and no acute distress Nutritional Appearance: well nourished Orientation/consciousness: patient oriented x3 Limitations: no limitations HEENT Head: Yes normal to inspection and Yes normocephalic Eyes General: appearance normal, both eyes and all related structures Visual Britton: normal visual britton by confrontation Alignment and Position: alignment normal Periorbital: periorbital findings normal Eyelids: Yes eyelids normal Conjunctivae: conjunctivae normal Sclerae: sclerae normal Back/Spine/Pelvis Other: Right upper back and right upper trapezius tenderness with palpation Cervical Spine: pain with cervical ROM and Cervical spine tenderness Neuro General: patient oriented x3 Cranial nerves: Yes CN's II-XII intact bilaterally and Yes Facial sensation intact/muscles of mastication intact Cognition (Neuro): normal cognition Gait exam (Neuro): Antalgic gait present and Other gait observations present (Poor balance) Motor exam (neuro): no tremor noted and Abnormal motor strength present right upper extremity other (level of the wrist. Bicepts and shoulder unable to obtain r/t pain) 2 / 5 Sensory Exam: double simultaneous stimulation for sensation normal Deep tendon reflexes (DTR's): Right triceps reflex intensity grade: 2+, Left triceps reflex intensity grade: 2+, Rt Biceps (C5, C6): 2+, Left biceps reflex intensity grade: 2+, Right brachioradialis reflex intensity grade: 2+, Left brachioradialis reflex intensity grade: 2+, Right patellar reflex intensity grade: 2+, Left patellar reflex intensity grade: 3+, Right ankle reflex intensity grade: 2+ and Left ankle reflex intensity grade: 2+ Romberg Test: Positive Pupils: Normal pupillary reactivity/response: bilateral Psych Appearance: grossly normal Mental Status: mental status grossly normal Speech and movement: Normal speech and movement present and Clear speech present Affect: normal affect Attitude: cooperative Thought process: Normal thought process present Thought content: Normal thought content present Insight: Good insight present (Psych) Judgement: Good judgement present (Psych) Office Procedures Nerve Block Details: Bilateral Greater Occipital Nerve block procedure: Laterally: Bilateral Indications: Occipital neuralgia Current allergies and current list of medications were reviewed prior to procedure, verbal consent was obtained, procedure was explained in detail to the patient prior to starting. Time-out was performed prior to procedure. Following universal hygiene protocols, patient's left occipital area was located by drawing a line between the external occipital protuberance and the mastoid process. The greater occipital nerve was located approximately 2/3 along this continuous pickling line pickler to the occiput, and corresponded with the point of maximum tenderness. Alcohol was applied topically to the skin. A 27 gauge needle (aspirating during insertion) was inserted at a 45 degree angle until just above the periosteum. The providers selected agent (s)/medications (as documented in this note) were injected on the left side (directing needle to center, left and right of painful focus any fanning technique). Pressure with gauze pad was held briefly upon the site of puncture to minimize bleeding and to further spread anesthetic subcutaneously. The procedure was repeated on the right side. The patient was monitored for 15 minutes after the procedure and no complications were observed. Post procedure care was reviewed with the patient including application of ice intermittently to the injection sites over the course of the day to reduce inflammation. CPT: 44152-Qayhnvp Occipital Procedure code (CPT) selection complete Office Meds bupivacaine (PF) 0.5 % (5 mg/mL) injection solution Performing Provider: Rosangela Cole CNP Performing Location: [facility] [place] [facility] Administered by: Rosangela Cole CNP on 06/20/25 14:57 Dose Route Admin Location Dispensed Lot Number Expiration Date [facility] [employer] 6 mL Infiltration 10 mL [id number] HOSPIR[employer]PFIZER Total Dispensed Waste 10 mL 40 % Assessment & Plan Assessment & Plan (1) Migraine without aura and without status migrainosus, not intractable: Code(s): G43.009 - Migraine without aura, not intractable, without status migrainosus Category: Medical (2) Myofascial pain: Code(s): M79.18 - Myalgia, other site Category: Medical Plan Zain is a 59-year-old male patient with a past medical history of migraine, depression, hypertension, osteoarthritis, asthma, COPD, STEPHON on CPAP who was seeing me at the [facility] neurology clinic for chronic headache. He is here today for his occipital nerve blocks and trigger point injections. I actually only performed occipital nerve block injections today because he just had a repair of his right shoulder. We are still awaiting prior authorization on his Aimovig for migraine preventive therapy. He will start and we will watch for constipation. -follow up in 1 month for repeat occipital nerve block injections -start Aimovig injections 70 mg once monthly Orders: Orders AMB Nerve Block Today G43.009 - Migraine without aura, not intractable, without status migrainosus, M79.18 - Myalgia, other site Coding Level of Care Code Est Pt Level 3 (75499) Diagnoses Migraine without aura and without status migrainosus, not intractable G43.009 Myofascial pain M79.18 CPT Codes Nerve Block - CPT: 19289-Iyvbstr Occipital ([id number])
[2025-06-20 14:40] VITALS: BP 140/82; PULSE 69; RESP 16; O2SAT 96; BMI 29.2
--- OUTSIDE RECORDS SUMMARY | 2025-06-20 19:43 | XMS_ITS | Continuity of Care Document ---
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 Plan of Treatment Reminders Order Date Submit Date Provider Last Modified By Organization Details Last Modified Time Details Appointments POST OP 10 2025 08:10A M Harrison Sánchez PA-C Not available Not available Not available Lab None recorded. Referral physical therapist referral 2024 025 [email or web address] Not available 05/12/2025 11:32:32 Procedures None recorded. Surgeries shoulder arthrosco py with acromiopl asty, distal clavicle resection , & rotator cuff repair (SURG) 2024 025 [email or web address] [place], [address], [place], [address], 05/24/2025 14:27:24 Imaging None recorded. Medication Orders None recorded. Patient TargetsNo targets recorded. Patient InstructionsNo instructions recorded. Reason for Referral Physical Therapist Referral for Rupture of rotator cuff of right shoulder S/P R SHOULDER ARTHROSCOPIC SUBACROMIAL DECOMPRESSION DISTAL CLAVICLE EXCISION ROTATOR CUFF REPAIR Referring Physician: Yoan Brown, Orthopedic Surgery, Encounter Date: 05/04/2025 Problems Name Problem SNOMED Code Status Onset Date Resolution Date Notes Provider Name and Address Organization Details Recorded Time No complaint s 487171735 Active Status: 'I'; Not Available [employer] 09:12:38 Full thickness rotator cuff tear 292986190 Active 2017 Problem Code: M75.121; Problem Code Type: ICD-10; Status: 'A'; Not Available [employer] 4 10:58:03 Rupture of rotator cuff of right shoulder 041928580688 99106 Active 2024 KAYLIA L'HEUREUX null, [place] - [facility] 5 08:38:17 Internal impingeme nt of right shoulder 165461940500 9107 Active 2024 KAYLIA L'HEUREUX [facility], [facility] [employer] [facility] 5 08:38:30 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 Medical Equipment None Reported. Allergies Allergen ID Allergen Name Allergen Category Reaction Reaction Severity Criticality Documentation Date Start Date Code Code System Note Provider Name and Address Organization Details Recorded Time 910059 ibuprofen medicatio n Not available Not available Not available 05/23/2025 5640 RxNorm Not Available [facility] - External [employer] - prod 5 08:05:15 838807 acetamino phen medicatio n Not available Not available Not available 05/23/2025 161 RxNorm Not Available [employer] - prod 5 08:05:15 676795 cat hair extract medicatio n Not available Not available Not available 05/23/20252022 35023 3 RxNorm Not Available [employer] - prod 5 08:06:12 978370 hazelnut allergeni c extract food Not available Not available Not available 05/23/20252019 87374 3 RxNorm Not Available [employer] - prod 5 08:06:12 735902 mite extract Not available Not available Not available Not available 05/23/20252022 54349 3 RxNorm Not Available [employer] - prod 5 08:06:12 062853 Canis lupus familiari s extract environme nt Not available Not available Not available 06/20/20252024 78656 4 RxNorm Not Available [employer] - External Data Service - prod 5 10:16:10 801059 POLLEN EXTRACTS environme nt,medica tion Not available Not available Not available 06/20/20252024 88196 6 RxNorm Not Available [facility] External Data Service - prod 5 10:16:10 01325 ibuprofen medicatio n Not available Not available Not available 09/08/20232022 5640 RxNorm Not Available Pending sale to [facility] 4 11:38:30 66374 Tylenol medicatio n Not available Not available Not available 09/08/20232022 02035 3 RxNorm Not Available Pending sale to [facility] 4 11:38:30 51142 Tree nut (substanc e) food,medi cation Not available Not available Not available 09/08/20232016 04404 20349 68223 SNOMED Not Available Pending sale to [facility] 4 11:38:30 Medications Name Sig Start Date Stop Date Status Note LastModified by Organization Details LastModified Time cyclobenzap rine 10 mg tablet TAKE 1 TABLET ORALLY 3 TIMES A DAY NEEDED FOR MUSCLE SPASM 05/04 completed Not Available Not Available Not Available atorvastati n 40 mg tablet TAKE 1 TABLET BY MOUTH EVERY DAY IN THE MORNING 05/04 completed Not Available Not Available Not Available atorvastati n 80 mg tablet TAKE 1 TABLET (80 MG) BY MOUTH IN THE MORNING active Not Available Not Available No t Available prednisone 10 mg tablet TAKE 6 TABS DAILY X3 DAYS,5 TABS X3 DAYS,4 TABS X3 DAYS,3 TABS X3 DAYS,2 TABS X3 DAYS, 1 TAB X3 DAYS 05/04 completed Not Available Not Available Not Available gabapentin 600 mg tablet TAKE 1 TABLET BY MOUTH EVERYDAY AT BEDTIME 05/04 completed Not Available Not Available Not Available doxycycline hyclate 100 mg capsule TAKE 1 CAPSULE BY MOUTH TWICE A DAY FOR 10 DAYS 05/04 completed Not Available Not Available Not Available ipratropium 0.5 mg-albutero l 3 mg (2.5 mg base)/3 mL nebulizatio n soln INHALE 3 ML INTO THE LUNGS TWO TIMES A DAY FOR 30 DAYS active Not Available Not Available No t Available albuterol sulfate 2.5 mg/3 mL (0.083 %) solution for nebulizatio n TAKE 3 ML BY NEBULIZAT ION ROUTE EVERY 8 HOURS NEEDED FOR WHEEZING active Not Available Not Available No t Available alprazolam 1 mg tablet TAKE 1 TABLET BY MOUTH THREE TIMES A DAY NEEDED active Not Available Not Available No t Available cilostazol 50 mg tablet TAKE 1 TABLET BY MOUTH TWICE A DAY active Not Available Not Available No t Available sumatriptan 100 mg tablet 1 TAB AT ONSET OF HEADACHE IF NO RELIEF,MA Y REPEAT 1 TAB AFTER AT LEAST 2 HRS MAX 2 TABS/24 HRS active Not Available Not Available No t Available ondansetron HCl 4 mg tablet 1 TALBET ORALLY 2 TIMES A DAY NEEDED FOR FOR NAUSEA/VO MITING active Not Available Not Available No t Available famotidine 40 mg tablet TAKE 1 TABLET BY MOUTH EVERYDAY AT BEDTIME active Not Available Not Available No t Available prednisone 20 mg tablet TAKE 2 TABLETS BY MOUTH DAILY FOR 5 DAYS 05/04 completed Not Available Not Available Not Available cyanocobala min (vit B-12) 1,000 mcg tablet TAKE 1 TABLET (1,000 MCG) BY MOUTH ONCE PER DAY. active Not Available Not Available No t Available clopidogrel 75 mg tablet TAKE 1 TABLET BY MOUTH EVERY DAY active Not Available Not Available No t Available amlodipine 5 mg tablet TAKE 1 TABLET BY MOUTH EVERY DAY active Not Available Not Available No t Available divalproex 500 mg tablet,steven yed release TAKE 2 TABLETS BY MOUTH TWICE A DAY active Not Available Not Available No t Available morphine ER 30 mg tablet,exte nded release Take 1 tablet every 8 hours by oral route for 7 days. 06/10 completed Not Available Not Available Not Available oxycodone 15 mg tablet TAKE 1 TABLET BY MOUTH EVERY 6 HOURS FOR 28 DAYS. active Not Available Not Available No t Available tamsulosin 0.4 mg capsule TAKE 1 CAPSULE (0.4 MG) BY MOUTH IN THE MORNING. EVERY DAY 1/2 HOUR FOLLOWING THE SAME MEAL EACH DAY active Not Available Not Available No t Available dicyclomine 20 mg tablet TAKE 1 TABLET BY MOUTH 4 TIMES A DAY active Not Available Not Available No t Available nicotine 21 mg/24 hr daily transdermal patch 1 PATCH TRANSDERM ALLY DAILY FOR 28 DAYS 05/04 completed Not Available Not Available Not Available budesonide 0.5 mg/2 mL suspension for nebulizatio n 0.5 MG (2 ML) INHALED 2 TIMES A DAY FOR 30 DAYS active Not Available Not Available No t Available nystatin 100,000 unit/gram topical powder APPLY 1 APPLICATI ON AT NOON AND 1 APPLICATI ON IN THE EVENING. active Not Available Not Available No t Available hydroxyzine HCl 10 mg tablet TAKE 2 TABLET BY MOUTH DAILY FOR HEADACHE active Not Available Not Available No t Available clotrimazol e 1 % topical cream APPLY TOPICALLY TWICE A DAY FOR 28 DAYS active Not Available Not Available No t Available loratadine 10 mg tablet TAKE 1 TABLET BY MOUTH EVERY DAY active Not Available Not Available No t Available amoxicillin 875 mg-potassiu m clavulanate 125 mg tablet TAKE 1 TABLET BY MOUTH TWICE A DAY FOR 10 DAYS 05/04 completed Not Available Not Available Not Available olmesartan 20 mg tablet TAKE 1 TABLET (20 MG) BY MOUTH ONCE PER DAY. active Not Available Not Available No t Available olmesartan 40 mg tablet TAKE 1 TABLET (40 MG) BY MOUTH ONCE PER DAY. 05/04 completed Not Available Not Available Not Available azithromyci n 500 mg tablet TAKE 1 TAB BY MOUTH ONCE DAILY FOR 5 DAYS 05/04 completed Not Available Not Available Not Available escitalopra m 20 mg tablet TAKE 1 TABLET BY MOUTH EVERY MORNING *DOSE INCREASE FROM 10 TO 20 MG active Not Available Not Available No t Available nicotine (polacrilex ) 4 mg buccal lozenge DISSOLVE 1 LOZENGE (4 MG) IN THE MOUTH EVERY 2 (TWO) HOURS IF NEEDED FOR SMOKING CESSATION . 05/04 completed Not Available Not Available Not Available cyclobenzap rine 5 mg tablet TAKE 1 TABLET BY MOUTH THREE TIMES A DAY NEEDED MUSCLE SPASM active Not Available Not Available No t Available diclofenac 1 % topical gel APPLY 4 GRAMS TO RIGHT SHOULDER AREA 4 TIMES A DAY NEEDED FOR PAIN active Not Available Not Available No t Available Combivent Respimat 20 mcg-100 mcg/actuati on solution for inhalation INHALE 2 PUFFS BY MOUTH EVERY 6 HOURS. active Not Available Not Available No t Available naloxone 4 mg/actuatio n nasal spray PLEASE SEE ATTACHED FOR DETAILED DIRECTION S active Not Available Not Available No t Available nicotine (polacrilex ) 4 mg buccal mini lozenge DISSOLVE 1 LOZENGE (4 MG) IN THE MOUTH EVERY 2 (TWO) HOURS IF NEEDED FOR SMOKING CESSATION . active Not Available Not Available No t Available Ubrelvy 50 mg tablet 1 TABLET BY MOUTH DAILY,INS TR:MAY REPEAT DOSE IN 2 HOURS, DO NOT EXCEED 2 DOSES IN 24 HOURS active Not Available Not Available No t Available Nurtec ODT 75 mg disintegrat ing tablet TAKE 1 TABLET BY MOUTH ONCE EVERY 24 HOURS NEEDED FOR MIGRAINE HEADACHE active Not Available Not Available No t Available Trelegy Ellipta 200 mcg-62.5 mcg-25 mcg powder for inhalation INHALE 1 PUFF BY MOUTH ONCE DAILY active Not Available Not Available No t Available Vitals Date Recorded Body height Body mass index (BMI) Body weight Provider Name and Address Organization Details Last Updated DateTime 05/04/2025 162.56 cm 30.9 kg/m2 70402.63 g RINA JACKSON [facility] 05/04/2025 08:19:09 Social History Question Answer Notes LastModified by [employer] Details LastModified Time Tobacco Smoking Status Current Every Day Smoker RINA JACKSON [facility] 05/02/2025 15:02:54 What Is Your Relationship Status? Single Information not available 05/02/2025 How Much Tobacco Do You Smoke? 1 PPD Information not available 05/04/2025 Sex: Unknown Functional Status Question Answer Note LastModified by [employer] Details LastModified Time Do you use any illicit or recreational drugs? Yes Information not available 05/02/2025 Do you or have you ever used any other forms of tobacco or nicotine? No Information not available 05/02/2025 What is your level of alcohol consumption? None Information not available 05/02/2025 Mental Status None recorded. Family History Nothing Reported. Medical History Condition Response Allergies/Hayfever N Coronary Artery Disease N Anxiety/Depression Y Breathing or lung disorders Y Emphysema N Nerve Disorders N Thyroid Problems N COPD N Pacemaker N Anemia N Kidney/Bladder Problems Y Vascular Disease N Heart Trouble N Heart Attack ([place]) N Gastrointestinal Disease Y Cholesterol Y Diabetes N Autoimmune disease N Bleeding Disorder N Inflammatory Joint disease N Orthotics N Arthritis Y Seizures/Epilepsy N Blood Clot N AIDS/HIV N Congestive Heart Failure (CHF) N Acid Reflux (GERD) N Cancer N Stroke N Asthma N Circulation Problems Y Peripheral Vascular Disease N Sleep Apnea Y Hepatitis N Heart Disease N Rheumatoid Arthritis N Arrhythmia N Pulmonary Embolism N Headaches Y Fibromyalgia N Hypertension Y Osteoporosis N Past Encounters Encounter ID Performer Location Encounter Start Date Encounter Closed Date Diagnosis/Indication Diagnosis SNOMED-CT Code Diagnosis ICD10 Code Diagnosis IMO Codes Diagnosis Note [id number] MD [facility] [address] [place] [address] 05/04/2025 08:06:44 05/12/2025 11:32:32 Rupture of rotator cuff of right shoulder 4750081187 1038611 M75.101 7916610602 Osteoarthr itis of joint of right shoulder region 4124199720 76533 M19.011 Internal i mpingement of right shoulder 1630685316 320160 M75.41 Health Concerns Section Related Observation LastModified by Organization Detai ls LastModified Time None Recorded Concern Status LastModified by Organization Details LastModified Time None Recorded Payers Encounter Date Sequence Insurance Name Policy Number Policy Mitchell Covered Member ID Mitchell Member ID Guarantor Name 05/04/2025 1 [facility] - DOS ON OR AFTER 2022 - ONE CARE (MEDICARE REPLACEMENT/AD VANTAGE - HMO) Zain Lazcano [id number] Zain Lazcano Notes Date Note Type Note Provider Name and Address Organization Details Recorded Time 05/04/2025 text/html HPI: Patient presents with complaints of right lateral brachial pain, worse in overhead positions, symptoms present now for several months has attempted activity modification, NSAIDS, but has had formal physical therapy through [facility]. Patient relates suffering a fall to the right upper extremity approximately 4 months ago from a short ladder in his home. Subsequent to that he has had difficulty with overhead elevation secondary to pain and weakness. Has been seen in the emergency department in [facility] x 3 and received an injection although it does not sound like he received prior corticosteroid injection. He has been through physical therapy for both his neck as well as his shoulder. Given persistent symptoms an MRI scan was obtained documenting a full-thickness rotator cuff tear and he was referred for orthopedic evaluation. PHYSICAL EXAMINATION: The patient is well appearing and in no apparent distress. Alert and oriented x 3. Gait is symmetric. right shoulder exam: Elevates to 140 degrees, externally rotates 60, internal rotates to L1. Patient exhibits bursal irritability, with positive impingment test, moderate AC joint irritability. AC joint pain exasperated by both ballottement and cross bodied adduction. Good strength fires the cuff. Supraspinatus strength 4 out of 5 infraspinatus strength 4 out of 5 both limited by pain. Subscapularis 5 or 5. Negative speed's. Positive Noble's Deltoid intact. Axillary nerve intact. No instability. left shoulder ROM full, 5/5 strength including rotator cuff and periscapular musculature. Good muscle bulk and strength without atrophy. No evidence of instability of the shoulder. Negative impingement signs. Negative AC joint tenderness. HEENT is unremarkable without carotid bruits or JVD.Heart regular rate and rhythm without murmurs rubs or gallopsAbdomen soft nontender nondistended positive bowel soundsLungs are clear bilaterally without rales rhonchi or wheezes. No erythema, no redness, no warmth. Peripheral, vascular, lymphatic examination, skin, neurological, coordination, reflexes, sensation are within normal limits. X-RAY REPORT: X-rays were ordered, obtained and reviewed today at [facility]. [facility] type II acromion, AC joint narrowing with evidence for distal clavicle osteolysis, Glenohumeral joint well preserved MRI findings independently reviewed todayFull-thickness retracted rotator cuff tear primarily involving the supraspinatus tendon. Retraction to the level of the mid humeral head. Has moderate subacromial impingement findings with changes of the greater tuberosity. Type II acromion morphology. Moderate AC joint arthropathy. No significant glenohumeral joint osteoarthropathy. Long head of the biceps appears to be intact. IMPRESSION: right Shoulder Mechanical Impingement AC joint arthropathy with MRI documented full-thickness rotator cuff tear. PLAN: Discussed nature of symptoms. Recommended rest, ice, activity modification. Given the acute nature symptoms the patient is suffering coupled with pain and weakness I would recommend early surgical intervention. I have discussed with the patient that his smoking is a significant inhibitor for rotator cuff healing and likely reduces the success rate of attempted operative repair. That being said his tear is already retracted to the mid humeral head level and any delay to surgical intervention would likely compromise long-term outcome. Given his young age I would advocate for early surgery. Patient understands the plan is a right shoulder arthroscopy for subacromial decompression, distal clavicle excision with arthroscopic rotator cuff repair.Today we had the opportunity to review with the patient the pathoanatomy. Discussed the surgical intervention proposed and its nonoperative alternatives. Reviewed today the risks, benefits, the expectations both of the surgical procedure and again its nonoperative alternatives. After reviewing appropriate treatment options patient would like to move towards scheduling. Informed consent was obtained in the office today. We will work towards scheduling hopefully within the next 30 days.Arc sling for postoperative immobilizationThe patient has weakness and instability of their extremity which requires stabalization for this semi-rigid/rigid orthosis to improve their funciton. Verbal and written instructions for the use and application of this item were given. Patient was instructed that should the brace result in increased pain, decreased sensation, increased swelling or an overall worsening of their medical condition, to please contact our office immediately. Yoan Brown MD [address] [place] [address] [address], [place], [address], [facility] 05/04/2025 08:49:25
--- OUTSIDE RECORDS SUMMARY | 2025-06-20 19:43 | XMS_ITS | Clinical Summary ---
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 three times in [facility] for difficulty urinating Medical History Medical History Date Comments Chronic back pain DX:Chronic alonso k pain Asthma DX:Asthma Anxiety DX:Anxiety; COMM ENT: follows at [facility] Family History Medical History Relation [...] on file Sexual Orientation Not on file Plan of Treatment Health Maintenance Due Date [...] age to complete this topic Care Teams Electronic Industrial Controls Mechanic Relationship Specialty Start Date End Date Ba Maria MD PCP - General Internal Medicine 10/26/12
--- OUTSIDE RECORDS SUMMARY | 2025-06-20 19:44 | XMS_ITS | Continuity of Care Document ---
Author Organization [facility], [address] [address] Address [address] [place] [address] Care Team Providers Care Manager Site Name Role Phone DOT ADAMS Primary Care Provider [phone] Assessment No assessment recorded. Plan of Treatment Reminders Order Date Submit Date Provider Last Modified By Organization Details Last Modified Time Details Appointments POST OP 10 026 08:10AM Harrison Sánchez PA-C Not available Not available Not available Lab None record ed. Referral None record ed. Procedures None record ed. Surgeries None record ed. Imaging None record ed. Medication Orders None record ed. Patient TargetsNo targets recorded. Patient InstructionsNo instructions recorded. Reason for Referral None Reported. Problems Name Problem SNOMED Code Status Onset Date Resolution Date Notes Provider Name and Address Organization Details Recorded Time No complaint s 178228718 Active Status: 'I'; Not Available [facility] 4 09:12:38 Full thickness rotator cuff tear 303840562 Active 2017 Problem Code: M75.121; Problem Code Type: ICD-10; Status: 'A'; Not Available [facility] 4 10:58:03 Rupture of rotator cuff of right shoulder 518301117119 71854 Active 2024 KAYLIA L'HEUREUX null, [facility] 5 08:38:17 Internal impingeme nt of right shoulder 599094101423 9107 Active 2024 RINA L'HEUREUX null, [facility] 5 08:38:30 Osteoarth ritis of joint of right shoulder region 771919769757 100 Active 2024 RINA L'HEUREUX null, [facility] 5 08:38:30 Problem Notes None recorded. Medical Equipment None Reported. Allergies Allergen ID Allergen Name Allergen Category Reaction Reaction Severity Criticality Documentation Date Start Date Code Code System Note Provider Name and Address Organization Details Recorded Time 378202 ibuprofen medicatio n Not available Not available Not available 05/23/2025 5640 RxNorm Not Available [employer] - prod 5 08:05:15 156395 acetamino phen medicatio n Not available Not available Not available 05/23/2025 161 RxNorm Not Available [employer] - prod 5 08:05:15 348551 cat hair extract medicatio n Not available Not available Not available 05/23/20252022 01503 3 RxNorm Not Available [employer] - prod 5 08:06:12 894889 hazelnut allergeni c extract food Not available Not available Not available 05/23/20252019 52064 3 RxNorm Not Available [employer] - prod 5 08:06:12 441467 mite extract Not available Not available Not available Not available 05/23/20252022 37399 3 RxNorm Not Available [employer] - prod 5 08:06:12 981900 Canis lupus familiari s extract environme nt Not available Not available Not available 06/20/20252024 09318 4 RxNorm Not Available [employer] - prod 5 10:16:10 964485 POLLEN EXTRACTS environme nt,medica tion Not available Not available Not available 06/20/20252024 38292 6 RxNorm Not Available [employer] - prod 5 10:16:10 97202 ibuprofen medicatio n Not available Not available Not available 09/08/20232022 5640 RxNorm Not Available [facility] 4 11:38:30 24074 Tylenol medicatio n Not available Not available Not available 09/08/20232022 87412 3 RxNorm Not Available [facility] 4 11:38:30 24734 Tree nut (substanc e) food,medi cation Not available Not available Not available 09/08/20232016 63420 60578 21689 SNOMED Not Available [facility] 11:38:30 Medications Name Sig Start Date Stop [...] Not Available No t Available amoxicillin 875 mg-jeremias wesley clavulanate 125 mg tablet TAKE 1 TABLET [...] height Body mass index (BMI) Body weight Body temperature Provider Name and Address Organization Details Last Updated DateTime 06/07/2025 162.56 cm 30.9 kg/m2 90194.63 g 98 [degF] Harrison Sánchez PA-C [address], [place], [address] , [place] - [place] [facility] 06/07/2025 08:35:22 Social History Question Answer Notes LastModified by Organizat ion Details LastModified Time Tobacco Smoking Status Current Every Day Smoker RINA Amee'SHELIAYo mackey [place] - [place] [facility] 05/02/2025 15:02:54 What Is Your Relationship Status? Single Information not available 05/02/2025 How Much Tobacco Do You Smoke? 1 PPD Information not available 05/04/2025 Sex: Unknown Functional Status Question Answer Note LastModified by Organizat ion Details LastModified Time Do you use any [...] Response Allergies/Hayfever N Coronary Artery Disease N Breathing or lung disorders Y Anxiety/Depression Y Emphysema N Nerve Disorders N Thyroid Problems N COPD N Pacemaker N Kidney/Bladder Problems Y Anemia N Vascular Disease N Heart Trouble N Gastrointestinal Disease Y Heart Attack ([place]) N Cholesterol Y Diabetes N Autoimmune disease N Inflammatory Joint disease N Bleeding Disorder N Orthotics N Arthritis Y Seizures/Epilepsy N [...] ICD10 Code Diagnosis IMO Codes Diagnosis Note [id number] Harrison Sánchez PA-C [facility] [address] [place] [address] 06/07/2025 08:29:09 06/16/2025 12:53:17 History of repair of musculotendinous cuff of shoulder 608879454 Z98.890 [id number] Health Concerns Section Related Observation LastModified by Organization Detai ls LastModified Time None Recorded Concern Status LastModified by Organization Details LastModified Time None Recorded Payers Encounter Date Sequence Insurance Name Policy Number Policy Mitchell Covered Member ID Mitchell Member ID Guarantor Name 06/07/2025 1 [facility] - DOS ON OR AFTER 2022 - ONE CARE (MEDICARE REPLACEMENT/AD VANTAGE - HMO) EsequielAmee Lazcano [id number] EsequielAmee Lazcano Notes Date Note Type Note Provider Name and Address Organization Details Recorded Time 06/07/2025 text/html I am seeing the patient today under the supervision of Dr. Callahan who was available but who did not see the patient. Surgery: Right SAD/DCE with arthroscopic rotator cuff repair 05/27/25 Interval History: Patient today for initial postoperative visit, patient has been compliant utilizing the sling, following postoperative instructions given at the surgery center. Patient comes in today without his sling. Past family, medical, social history and review of systems have been reviewed and updated on the medical history sheet saved to the patient's chart. A 12-point review of systems is negative x12 except as noted above and/or on the medical history sheet. Examination: Shoulder demonstrates well-healed incision, sutures removed, Steri-Strips applied, normal deltoid sensation, neurovascular status normal. Impression: s/p Right Shoulder surgery outlined above Plan: Recommendations made to continue following postoperative instructions, continued daily pendulum related exercises and use of sling and elbow range of motion to tolerance. We will initiate physical therapy at 3 weeks postoperatively to begin with passive range of motion, progress to active assisted range of motion and eventually active range of motion by 8 weeks, light strengthening to begin at approximately 3 months. I have stressed the importance of utilization of sling and the risk of early failure in the first 6 weeks with noncompliance to sling use. Patient to be reassessed an approximate 7 weeks for routine follow-up care. Harrison Sánchez PA-C [address] [place] [address], [place], [address], [facility] - [facility] 06/07/2025 08:51:08
--- OUTSIDE RECORDS SUMMARY | 2025-06-20 19:44 | XMS_ITS | Data Portability ---
Author Organization [place] - [facility], [facility] Address [address] [place] [address] Care Team Providers Care Electrode Cleaner Name Role Phone DOT ADAMS Primary Care Provider [phone] Assessment No assessment recorded. Plan of Treatment [...] 2024 025 [email or web address] [place], [address], [facility], [place], [address], 05/24/2025 14:27:24 Imaging None recorded. Medication Orders [...] Organization Details Recorded Time No complaint s 063898880 Active Status: 'I'; Not Available [employer] 09:12:38 Full thickness rotator cuff tear 270042750 Active 2017 Problem Code: M75.121; Problem Code Type: ICD-10; Status: 'A'; Not Available [employer] 4 10:58:03 Rupture of rotator cuff of right shoulder 738276600117 69006 Active 2024 KAYLIA L'HEUREUX null, [place] - [facility] 5 08:38:17 Internal impingeme nt of right shoulder 893092226825 9107 Active 2024 KAYLIA L'HEUREUX null, [place] - [facility] 5 08:38:30 Osteoarth ritis of joint of right shoulder region 329479676779 100 Active 2024 KAYLIA L'HEUREUX null, [place] - [facility] 5 08:38:30 Problem Notes None recorded. Medical Equipment None Reported. Allergies Allergen ID Allergen Name Allergen Category Reaction Reaction Severity Criticality Documentation Date Start Date Code Code System Note Provider Name and Address Organization Details Recorded Time 936786 ibuprofen medicatio n Not available Not available Not available 05/23/2025 5640 RxNorm Not Available [employer] [facility] [employer] 5 08:05:15 131523 acetamino phen medicatio n Not available Not available Not available 05/23/2025 161 RxNorm Not Available [employer] [facility] prod 5 08:05:15 379472 cat hair extract medicatio n Not available Not available Not available 05/23/20252022 56227 3 RxNorm Not Available [employer] - prod 5 08:06:12 827412 hazelnut allergeni c extract food Not available Not available Not available 05/23/20252019 32111 3 RxNorm Not Available [employer] - prod 5 08:06:12 906279 mite extract Not available Not available Not available Not available 05/23/20252022 42123 3 RxNorm Not Available [employer] - prod 5 08:06:12 414279 Canis lupus familiari s extract environme nt Not available Not available Not available 06/20/20252024 42113 4 RxNorm Not Available [employer] - prod 5 10:16:10 180293 POLLEN EXTRACTS environme nt,medica tion Not available Not available Not available 06/20/20252024 20863 6 RxNorm Not Available [employer] External [employer] - prod 5 10:16:10 29620 ibuprofen medicatio n Not available Not available Not available 09/08/20232022 5640 RxNorm Not Available [facility] 4 11:38:30 49342 Tylenol medicatio n Not available Not available Not available 09/08/20232022 00463 3 RxNorm Not Available [facility] 4 11:38:30 22194 Tree nut (substanc e) food,medi cation Not available Not available Not available 09/08/20232016 52224 14847 87340 SNOMED Not Available [facility] 4 11:38:30 Medications Name Sig Start Date [...] Updated DateTime 05/04/2025 162.56 cm 30.9 kg/m2 32921.63 g RINA Lubin'CARL [facility] 05/04/2025 08:19:09 Date Recorded Body height Body mass index (BMI) Body weight Body temperature Provider Name and Address Organization Details Last Updated DateTime 06/07/2025 162.56 cm 30.9 kg/m2 19818.63 g 98 [degF] Harrison Sánchez PA-C [address], [facility] [place], [address] , [facility] 06/07/2025 08:35:22 Social History Question Answer Notes LastModified by [employer] Details LastModified Time Tobacco Smoking Status Current Every Day Smoker RINA JACKSON [facility] 05/02/2025 15:02:54 What Is Your Relationship Status? Single Information not available 05/02/2025 How Much Tobacco Do You Smoke? 1 PPD Information not available 05/04/2025 Sex: Unknown Functional Status Question Answer Note LastModified by [employer] Details LastModified Time Do you use any [...] Trouble N Gastrointestinal Disease Y Heart Attack ([place]) N Cholesterol Y Diabetes N Autoimmune disease [...] ICD10 Code Diagnosis IMO Codes Diagnosis Note [id number] MD [facility] [address] [place] [address] 05/04/2025 08:06:44 05/12/2025 11:32:32 Rupture of rotator cuff of right shoulder 0992319600 6345126 M75.101 5874195377 Osteoarthr itis of joint of right shoulder region 5670517542 21940 M19.011 Internal i mpingement of right shoulder 4928532404 829600 M75.41 [id number] HORACIO [address] [facility] [place] [address] 06/07/2025 08:29:09 06/16/2025 12:53:17 History of repair of musculotendinous cuff of shoulder 474062798 Z98.890 [id number] Health Concerns Section Related Observation LastModified by Organization Detai ls LastModified Time None Recorded Concern Status LastModified by Organization Details LastModified Time None Recorded Advance Directives Directive None Recorded Payers Insurance Date Sequence Insurance Name Policy Number Policy Mitchell Covered Member ID Mitchell Member ID Guarantor Name 06/16/2025 1 [facility] - DOS ON OR AFTER 2022 - ONE CARE (MEDICARE REPLACEMENT/AD VANTAGE - HMO) Zain Lazcano [id number] Zain Lazcano Notes Date Note Type Note Provider Name and Address Organization Details Recorded Time 05/04/2025 text/html HPI: Patient presents with complaints of right lateral brachial pain, worse in overhead positions, symptoms present now for several months has attempted activity modification, NSAIDS, but has had formal physical therapy through [facility]. Patient relates suffering a fall to the right upper extremity approximately 4 months ago from a short ladder in his home. Subsequent to that he has had difficulty with overhead elevation secondary to pain and weakness. Has been seen in the emergency department in [facility] x 3 and received an injection although [...] Subscapularis 5 or 5. Negative speed's. Positive Dawson's Deltoid intact. Axillary nerve intact. No instability. [...] were ordered, obtained and reviewed today at [facility]. Four views of the [place] demonstrate type II acromion, AC joint narrowing [...] contact our office immediately. Yoan Brown MD [address] [place] [address] [address], [place], [address], [facility] - [facility] 05/04/2025 08:49:25 06/07/2025 text/html I am seeing the patient [...] for routine follow-up care. Harrison Sánchez PA-C [address], [place], [address], [facility] - [facility] 06/07/2025 08:51:08
== END 2025-06-20 15:15 | disposition home or self-care (01) ==
LOC: HO.HSM 13:33
PROVIDERS: PCP General Practice; Visit Provider Nurse Practitioner
DX: G43.009 Migraine without aura, not intractable, without status migrainosus (principal); M79.18 Myalgia, other site
CPT/HCPCS: 64405; 99213

== ENCOUNTER → 2025-06-20 13:33 | Outpatient (BNVA) | payer OTHER, SELFPAY | PROVIDERS: PCP General Practice; Visit Provider Nurse Practitioner | DX: G43.009 Migraine without aura, not intractable, without status migrainosus (principal); M79.18 Myalgia, other site | CPT/HCPCS: 64405; 99212; J0665 ==